=== PATIENT | female | born 1960 | race Caucasian/White ===

== ENCOUNTER 2016-08-15 14:11 | Emergency (ER) | payer OTHER ==
[2016-08-15 15:44] LABS: MEAN CORPUSCULAR HEMOGLOBIN 30.5 pg (27.0-33.0); MEAN CORPUSCULAR HGB CONC 32.6 g/dl (32.0-36.5); MEAN CORPUSCULAR VOLUME 93.7 fl (80.0-96.0); RED CELL DISTRIBUTION WIDTH 13.5 % (11.5-14.5); WHITE BLOOD COUNT 8.5 K/mm3 (4.0-10.0)
[2016-08-15 16:07] LABS: ANION GAP 11 MEQ/L (8-16); BLOOD UREA NITROGEN 14 MG/DL (7-18); CALCIUM LEVEL 8.7 MG/DL (8.5-10.1); CARBON DIOXIDE LEVEL 21 MEQ/L (21-32); CHLORIDE LEVEL 111 MEQ/L (98-107); CREATININE FOR GFR 0.74 MG/DL (0.55-1.02); GLOMERULAR FILTRATION RATE > 60.0 (>51); GLUCOSE, FASTING 145 MG/DL (70-105); POTASSIUM SERUM 4.6 MEQ/L (3.5-5.1); SODIUM LEVEL 143 MEQ/L (136-145)
--- NOTE | 2016-08-15 19:04 | EDDOCDS ---
Physician Documentation [facility] Name: Jon Connor Age: 56 yrs Sex: Female : 1960 Arrival Date: 08/15/2016 Time: 14:11 Bed TR8 Private MD: Lindsay Chapman Disposition: 08/15/16 17:55 Discharged to Home/Self Care. Impression: Illness, unspecified, Diarrhea, unspecified. - Condition is Stable. - Discharge Instructions: Food Choices to Help Relieve Diarrhea, Adult, Diarrhea. - Prescriptions for Zofran 4 mg Oral Tablet - take 1 tablet by ORAL route 4 times per day As needed; 10 tablet. - Medication Reconciliation, Local Pharmacy Hours form. - Follow up: Lindsay Chapman; When: 4 - 5 days; Reason: Recheck today's complaints, Continuance of care. - Problem is an ongoing problem. - Symptoms are unchanged. Historical: - Allergies: SULFA (SULFONAMIDES); - Home Meds: 1. citalopram 40 mg oral tab once daily 2. aspirin 325 mg Oral tab 1 tab once daily 3. albuterol sulfate 2.5 mg /3 mL (0.083 %) Nebulizer nebu 4. Breo Ellipta 200-25 mcg/dose inhalation dsdv 1 puff once daily 5. Carafate 1 gram Oral tab 4 times per day 6. CellCept 500 mg Oral tab 2 tabs 2 times per day 7. multivitamin Oral tab 1 tablet daily 8. enalapril maleate 2.5 mg Oral tab 1 tab once daily 9. fluticasone furoate 27.5 mcg/actuation nasal spsn 2 sprays once daily 10. gabapentin 300 mg Oral cap 1 cap 3 times per day 11. ipratropium-albuterol 0.5 mg-3 mg(2.5 mg base)/3 mL Inhl nebu 4 times per day 12. Januvia 100 mg oral tab 1 tab once daily 13. Lipitor 20 mg Oral tab 1 tab once daily 14. loratadine 10 mg Oral tab 1 tab once daily 15. metformin 500 mg Oral tab 2 tabs 2 times per day 16. Nexium 22.3mg Oral cpDR 2 caps once daily 17. pyridostigmine bromide 60 mg oral tab 4 times per day 18. ranitidine HCl 300 mg Oral cap bedtime 19. repaglinide 2 mg oral tab 2 tabs 2 times per day 20. ropinirole 1 mg oral tab 1 tab twice a day, 1/2 tablet at two pm 21. Topamax 50 mg Oral tab 1 tab daily 22. Topamax 100 mg Oral tab 1 tab at bedtime 23. triamcinolone acetonide 0.1 % Topical crea 2 times per day 24. ventolin inhaler every 4 hours 25. Vitamin D Oral 50,000 unit weekly 26. vitamin b12 100mcg daily 27. Hizentra subcutaneous subcutaneous once wkly - PMHx: Asthma; CAD; Depression; restless leg; Hypercholesterolemia; Diabetes - NIDDM: controlled; Hypertension; mysthenia gravis; TIA; - Social history: Smoking status: Patient states was never smoker of tobacco. No barriers to communication noted, The patient speaks fluent [place], Speaks appropriately for age. - Family history: Not pertinent. - : The pt / caregiver states he / she is not on anticoagulants. Home medication list is obtained from the patient. - Exposure Risk Screening:: None identified. Vital Signs: 08/15 14:14 BP 153 / 71 RA Sitting (auto/lg); Pulse 82; Resp 16; Temp 99.3(O); Pulse Ox 98% ; rs6 Weight 104.78 kg / 231 lbs (R); Height 5 ft. 3 in. (160.02 cm) (R); Pain 7/10; 14:30 Pulse 104 MON; Pulse Ox 97% ; cjh 14:30 BP 173 / 77 (auto/); cjh 15:37 Pulse 74 MON; Pulse Ox 99% ; cjh 15:37 BP 121 / 67 (auto/); cjh 15:52 Pulse 72 MON; Pulse Ox 97% ; cjh 15:52 BP 120 / 57 (auto/); cjh 16:07 Pulse 70 MON; Pulse Ox 97% ; cjh 16:07 BP 120 / 57 (auto/); cjh 16:22 Pulse 80 MON; Pulse Ox 98% ; cjh 16:22 BP 127 / 60 (auto/); cjh 18:20 BP 101 / 55; Pulse 75; Resp 16; Temp 97.9; Pulse Ox 97% ; Pain 7/10; cjh 14:14 Body Mass Index 40.92 (104.78 kg, 160.02 cm) rs6 MDM: 14:44 Obtain sample by nasopharyngeal swab ordered. ke 14:45 IV Saline Lock ordered. ke 14:45 NS 0.9% 1000 ml IV at 100 mL/hr continuous ordered. ke 14:45 CBC Ordered. EDMS 14:45 BMP Ordered. EDMS 14:45 -Influenza A&B Rapid Antigen - Nose Ordered. EDMS 14:45 UA Ordered. EDMS 14:45 Urine Culture Ordered. EDMS 14:45 CT Head Without Contrast Ordered. EDMS 16:13 CBC Reviewed. ke 16:13 BMP Reviewed. ke 16:13 -Influenza A&B Rapid Antigen - Nose Reviewed. ke 16:22 Financial registration complete. ks16 16:27 [facility] Payment Agreement was scanned into [employer] and attached to record. ks16 17:35 UA Reviewed. ke Administered Medications: 15:44 Drug: NS 0.9% 1000 ml [sodium chloride 0.9 % intravenous solution] Route: IV; Rate: 100 srm mL/hr; Site: right forearm; Signatures: Dispatcher [employer] EDSherie Drummond RN RN srm Elsner, Karl, PUMPING SUPERVISOR PUMPING SUPERVISOR Glenis Proctor RN RN [facility] Macie Julien, Reg Reg ks16 The chart was reviewed and I authenticate all verbal orders and agree with the evaluation and treatment provided.Attachments: 16:27 [facility] Payment Agreement ks16 MTDD
--- NOTE | 2016-08-15 19:04 | EDDOCDS ---
Nurse's Notes [facility] Name: Jon Connor Age: 56 yrs Sex: Female : 1960 Arrival Date: 08/15/2016 Time: 14:11 Bed TR8 Private MD: Lindsay Chapman Diagnosis: Illness, unspecified;Diarrhea, unspecified Presentation: 08/15 14:24 Presenting complaint: Patient states: while standing from bent over position, hit head srm on bar cabinet. no LOC. today weakness, very tired, arms and legs numb and tingling. hx of tia in past. not on blood thinners. Adult Sepsis Screening: The patient does not have new or worsening altered mentation. Patient's respiratory rate is less than 22. Systolic blood pressure is greater than 100. Patient has a qSOFA score of 0- Negative Sepsis Screen. Suicide/Homicide risk assessment- the patient denies having any suicidal and/or homicidal ideations and does not present with any other emotional, behavioral or mental health complaints. Status: Patient is not a program services assistant or dependent. Transition of care: patient was not received from another setting of care. 14:24 Acuity: BHAVNA Level 2 srm 14:24 Method Of Arrival: Wheelchair srm 14:46 Presenting complaint: tired and weak since 0730 and numbness to extremities since srm approx 1100. Triage Assessment: 14:45 General: Appears in no apparent distress, Behavior is appropriate for age, cooperative. srm Pain: Pain currently is 7 out of 10 on a pain scale. HIV screening NA for this visit Offered previously. Historical: - Allergies: SULFA (SULFONAMIDES); - Home Meds: 1. citalopram 40 mg oral tab once daily 2. aspirin 325 mg Oral tab 1 tab once daily 3. albuterol sulfate 2.5 mg /3 mL (0.083 %) Nebulizer nebu 4. Breo Ellipta 200-25 mcg/dose inhalation dsdv 1 puff once daily 5. Carafate 1 gram Oral tab 4 times per day 6. CellCept 500 mg Oral tab 2 tabs 2 times per day 7. multivitamin Oral tab 1 tablet daily 8. enalapril maleate 2.5 mg Oral tab 1 tab once daily 9. fluticasone furoate 27.5 mcg/actuation nasal spsn 2 sprays once daily 10. gabapentin 300 mg Oral cap 1 cap 3 times per day 11. ipratropium-albuterol 0.5 mg-3 mg(2.5 mg base)/3 mL Inhl nebu 4 times per day 12. Januvia 100 mg oral tab 1 tab once daily 13. Lipitor 20 mg Oral tab 1 tab once daily 14. loratadine 10 mg Oral tab 1 tab once daily 15. metformin 500 mg Oral tab 2 tabs 2 times per day 16. Nexium 22.3mg Oral cpDR 2 caps once daily 17. pyridostigmine bromide 60 mg oral tab 4 times per day 18. ranitidine HCl 300 mg Oral cap bedtime 19. repaglinide 2 mg oral tab 2 tabs 2 times per day 20. ropinirole 1 mg oral tab 1 tab twice a day, 1/2 tablet at two pm 21. Topamax 50 mg Oral tab 1 tab daily 22. Topamax 100 mg Oral tab 1 tab at bedtime 23. triamcinolone acetonide 0.1 % Topical crea 2 times per day 24. ventolin inhaler every 4 hours 25. Vitamin D Oral 50,000 unit weekly 26. vitamin b12 100mcg daily 27. Hizentra subcutaneous subcutaneous once wkly - PMHx: Asthma; CAD; Depression; restless leg; Hypercholesterolemia; Diabetes - NIDDM: controlled; Hypertension; mysthenia gravis; TIA; - Social history: Smoking status: Patient states was never smoker of tobacco. No barriers to communication noted, The patient speaks fluent Yi, Speaks appropriately for age. - Family history: Not pertinent. - : The pt / caregiver states he / she is not on anticoagulants. Home medication list is obtained from the patient. - Exposure Risk Screening:: None identified. Screenin:57 Screening information is obtained from the patient. Fall risk: No risks identified. [facility] Assistance ADL's: requires no assistance with activities of daily living. Abuse/DV Screen: The patient / caregiver reports he/she is: not in a situation that causes fear, pain or injury. Nutritional screening: No deficits noted. Advance Directives: Currently, there is a health care proxy, Yunier Connor, . There is no active DNR order. There is no living will. There is no Power of Supervisor Slate Splitting. 18:20 home support is adequate. [facility] Assessment: 14:55 General: Appears in no apparent distress, comfortable, Behavior is appropriate for age, cjh cooperative, returned from CT, tolerated well, at bedside. Pain: Denies pain. Neurological: Level of Consciousness is awake, alert, Oriented to person, place, time, Pupils are PERRLA. Respiratory: Airway is patent Respiratory effort is even, unlabored, Respiratory pattern is regular, symmetrical. GI: No deficits noted. : No deficits noted. Derm: Skin is pink, warm & dry. 16:30 General: awaiting results, no new problems or complaints, no changes or improvements [facility] noted. 18:20 General: Appears in no apparent distress, comfortable, Behavior is appropriate for age, cjh cooperative, reviewed discharge instructions, patient states she doesn't feel any better but declines offer to obtain the provider for further questions and declines offer of further assist via wheelchair to exit. Reviewed plans for follow up care, reinforced need to return for worsening symptoms, alarming changes or other reasons. Vital Signs: 14:14 BP 153 / 71 RA Sitting (auto/lg); Pulse 82; Resp 16; Temp 99.3(O); Pulse Ox 98% ; rs6 Weight 104.78 kg (R); Height 5 ft. 3 in. (160.02 cm) (R); Pain 7/10; 14:30 Pulse 104 MON; Pulse Ox 97% ; cjh 14:30 BP 173 / 77 (auto/); cjh 15:37 Pulse 74 MON; Pulse Ox 99% ; cjh 15:37 BP 121 / 67 (auto/); cjh 15:52 Pulse 72 MON; Pulse Ox 97% ; cjh 15:52 BP 120 / 57 (auto/); cjh 16:07 Pulse 70 MON; Pulse Ox 97% ; cjh 16:07 BP 120 / 57 (auto/); cjh 16:22 Pulse 80 MON; Pulse Ox 98% ; cjh 16:22 BP 127 / 60 (auto/); cjh 18:20 BP 101 / 55; Pulse 75; Resp 16; Temp 97.9; Pulse Ox 97% ; Pain 7/10; cjh 14:14 Body Mass Index 40.92 (104.78 kg, 160.02 cm) rs6 Vitals: 14:14 Log In Time: August 15, 2016 at 14:14. RN notified that patient meets Red Flag rs6 criteria. ED Course: 14:12 Patient visited by Farida Guerrero PCA. rs6 14:12 Patient moved to Waiting rs6 14:13 Lindsay Chapamn is Private Physician. rs6 14:24 Patient moved to I8 / 16 srm 14:26 Triage Initiated srm 14:38 Deondre Scott FNP is [facility]. ke 14:38 Patient visited by Deondre Scott FNP. ke 14:38 Patient visited by Deondre Scott FNP. ke 14:38 Patient moved to 4 [facility] 14:46 Patient visited by Sherie Reynoso, ANNMARIE. srm 15:16 Patient visited by Deondre Scott FNP. ke 15:31 Patient moved to 14 ar3 15:41 Patient visited by Sherie Reynoso, ANNMARIE. srm 15:41 -Influenza A&B Rapid Antigen - Nose Sent. srm 15:41 Inserted saline lock: 20 gauge in right forearm and blood collected. srm 16:12 Patient visited by Deondre Scott FNP. ke 16:27 [facility] Payment Agreement was scanned into [employer] and attached to record. ks16 16:39 Patient visited by Deondre Scott FNP. ke 16:57 Urine Culture Sent. cjh 16:57 UA Sent. cjh 17:01 Patient visited by Deondre Scott FNP. ke 17:32 Patient visited by Deondre Scott FNP. ke 17:54 Lindsay Chapman is Referral Physician. ke 18:18 Patient moved to TR8 cjh 18:20 The patient / caregiver is instructed regarding the plan of care and ED course. cj 18:20 Discontinued lock intact, bleeding controlled, pressure dressing applied, No cj redness/swelling at site. No procedures done that require assistance. Administered Medications: 15:44 Drug: NS 0.9% 1000 ml [sodium chloride 0.9 % intravenous solution] Route: IV; Rate: 100 srm mL/hr; Site: right forearm; Order Results: Lab Order: CBC; SPEC'M 08/15/16 15:28 Test: WHITE BLOOD COUNT; Value: 8.5; Range: 4.0-10.0; Units: K/mm3; Status: F Test: RED BLOOD COUNT; Value: 3.85; Range: 4.00-5.40; Abnormal: Below low normal; Units: M/mm3; Status: F Test: HEMOGLOBIN; Value: 11.8; Range: 12.0-16.0; Abnormal: Below low normal; Units: g/dl; Status: F Test: HEMATOCRIT; Value: 36.1; Range: 36.0-47.0; Units: %; Status: F Test: MEAN CORPUSCULAR VOLUME; Value: 93.7; Range: 80.0-96.0; Units: fl; Status: F Test: MEAN CORPUSCULAR HEMOGLOBIN; Value: 30.5; Range: 27.0-33.0; Units: pg; Status: F Test: MEAN CORPUSCULAR HGB CONC; Value: 32.6; Range: 32.0-36.5; Units: g/dl; Status: F Test: RED CELL DISTRIBUTION WIDTH; Value: 13.5; Range: 11.5-14.5; Units: %; Status: F Test: PLATELET COUNT, AUTOMATED; Value: 208; Range: 150-450; Units: k/mm3; Status: F Lab Order: [facility]; SPEC'M 08/15/16 15:29 Test: GLUCOSE, FASTING; Value: 145; Range: 70-105; Abnormal: Above high normal; Units: MG/DL; Status: F Test: BLOOD UREA NITROGEN; Value: 14; Range: 7-18; Units: MG/DL; Status: F Test: CREATININE FOR GFR; Value: 0.74; Range: 0.55-1.02; Units: MG/DL; Status: F Test: GLOMERULAR FILTRATION RATE; Value: > 60.0; Range: >51; Status: F Test: SODIUM LEVEL; Value: 143; Range: 136-145; Units: MEQ/L; Status: F Test: POTASSIUM SERUM; Value: 4.6; Range: 3.5-5.1; Units: MEQ/L; Status: F Test: CHLORIDE LEVEL; Value: 111; Range: 98-107; Abnormal: Above high normal; Units: MEQ/L; Status: F Test: CARBON DIOXIDE LEVEL; Value: 21; Range: 21-32; Units: MEQ/L; Status: F Test: ANION GAP; Value: 11; Range: 8-16; Units: MEQ/L; Status: F Test: CALCIUM LEVEL; Value: 8.7; Range: 8.5-10.1; Units: MG/DL; Status: F Test Note: ; Units are mL/min/1.73 m2 Chronic Kidney Disease Staging per NKF: Stage I & II GFR >=60 Normal to Mildly Decreased Stage III GFR 30-59 Moderately Decreased Stage IV GFR 15-29 Severely Decreased Stage V GFR <15 Very Little GFR Left ESRD GFR <15 on OCCUPANCY SPECIALIST Lab Order: -Influenza A&B Rapid Antigen - Nose; SPEC'M 08/15/16 15:28 Test: INFLUENZA A RAPID SCR by ICA; Value: INFLUENZA A RESULTS NEGATIVE; Status: F Test: INFLUENZA A RAPID SCR by ICA; Value: Comments:; Status: F Test: INFLUENZA B RAPID SCR by ICA; Value: INFLUENZA B RESULTS NEGATIVE; Status: F Test Note: ; The Influenza test is a direct rapid immunoassay for the qualitative detection of Influenza viral antigen. Cell culture (Viral Culture) testing should be considered to confirm NEGATIVE results and to assist in detecting other viruses that can provide similar clinical symptoms. Please contact the lab within 24 hours ([phone]) if confirmatory testing is desired. Lab Order: UA; SPEC'M 08/15/16 16:42 Test: APPEARANCE, URINE; Value: CLEAR; Range: CLEAR; Status: F Test: COLOR, URINE; Value: YELLOW; Range: YELLOW; Status: F Test: PH,URINE; Value: 7.0; Range: 5.0-9.0; Units: UNITS; Status: F Test: SPECIFIC GRAVITY URINE AUTO; Value: 1.011; Range: 1.002-1.035; Status: F Test: PROTEIN, URINE AUTO; Value: NEGATIVE; Range: NEGATIVE; Units: mg/dL; Status: F Test: GLUCOSE, URINE (UA) AUTO; Value: NEGATIVE; Range: NEGATIVE; Units: mg/dL; Status: F Test: KETONE, URINE AUTO; Value: NEGATIVE; Range: NEGATIVE; Units: mg/dL; Status: F Test: UROBILINOGEN, URINE AUTO; Value: 0.2; Range: 0.0-2.0; Units: mg/dL; Status: F Test: BILIRUBIN, URINE AUTO; Value: NEGATIVE; Range: NEGATIVE; Status: F Test: NITRITE, URINE AUTO; Value: NEGATIVE; Range: NEGATIVE; Status: F Test: LEUKOCYTE ESTERASE, URINE AUTO; Value: NEGATIVE; Range: NEGATIVE; Status: F Test: BLOOD, URINE BLOOD; Value: NEGATIVE; Range: NEGATIVE; Status: F Test: WBC, URINE AUTO; Value: 1; Range: 0-3; Units: /HPF; Status: F Test: RBC, URINE AUTO; Value: 1; Range: 0-3; Units: /HPF; Status: F Test: BACTERIA, URINE AUTO; Value: NEGATIVE; Range: NEGATIVE; Status: F Test: SQUAMOUS EPITHELIAL CELL UR AU; Value: 0; Range: 0-6; Units: /HPF; Status: F Test: HYALINE CAST, URINE AUTO; Value: 0; Range: 0-1; Units: /LPF; Status: F Test: AMORPHOUS SEDIMENT; Value: SMALL; Range: NEGATIVE; Abnormal: Above high normal; Status: F Outcome: 17:55 Discharge ordered by Provider. ke 18:20 Discharge Assessment: Patient awake, alert and oriented x 3. No cognitive and/or [facility] functional deficits noted. Patient verbalized understanding of disposition instructions. patient administered narcotics - no. The following High Risk Discharge criteria are identified: None. Discharged to home ambulatory, with significant other. Condition: good Condition: stable Condition: improved. Discharge instructions given to patient, Instructed on discharge instructions, follow up and referral plans. medication usage, Demonstrated understanding of instructions, medications, Pt was receptive of discharge instructions/ teaching. Prescriptions given X 1. CT Study completed. Property :Personal belongings accompany Pt. 19:03 Patient left the ED. [facility] Signatures: Delmi Siegel RN Sherie Lawrence RN Deondre Strauss, TUBE BUILDER AIRPLANE TUBE BUILDER AIRPLANE Rita Mcleod, NEON TECHNICIAN NEON TECHNICIAN ar3 Glenis Cabrera RN RN [facility] Farida Guerrero, NEON TECHNICIAN NEON TECHNICIAN rs6 Macie Julien, Reg Reg ks16 MTDD
--- NOTE | 2016-08-16 05:35 | REP ---
Head CT without contrast: History: Trauma. Findings: Preliminary digital lateral ring attacher view is unremarkable. Bone window settings demonstrate an intact bony calvarium. No skull fracture is seen. There is mucosal thickening affecting the maxillary sinuses and the ethmoid and maxillary sinuses bilaterally. No intraorbital abnormality is seen. On soft tissue window settings, the lateral, third, and fourth ventricles are normal in size and position. Soria-white differentiation pattern is normal above and below the tentorium. There is no evidence of intracranial hemorrhage. No extra-axial fluid collection is seen. No mass or midline shift is seen. Impression: Paranasal sinus mucosal thickening in the ethmoid and maxillary sinuses bilaterally. Otherwise negative head CT. No skull fracture or intracranial injury seen. Signed by Angel Cunningham MD 08/16/2016 02:22 P
--- NOTE | 2016-08-17 20:04 | EDDOCDS ---
Physician Documentation [facility] Name: Jon Connor Age: 56 yrs Sex: Female : 1960 Arrival Date: 08/15/2016 Time: 14:11 Bed TR8 Private MD: Lindsay Chapman Disposition: 08/15/16 17:55 Discharged to Home/Self Care. Impression: Illness, unspecified, Diarrhea, unspecified. - Condition is Stable. - Discharge Instructions: Food Choices to Help Relieve Diarrhea, Adult, Diarrhea. - Prescriptions for Zofran 4 mg Oral Tablet - take 1 tablet by ORAL route 4 times per day As needed; 10 tablet. - Medication Reconciliation, Local Pharmacy Hours form. - Follow up: Lindsay Chapman; When: 4 - 5 days; Reason: Recheck today's complaints, Continuance of care. - Problem is an ongoing problem. - Symptoms are unchanged. Historical: - Allergies: SULFA (SULFONAMIDES); - Home Meds: 1. citalopram 40 mg oral tab once daily 2. aspirin 325 mg Oral tab 1 tab once daily 3. albuterol sulfate 2.5 mg /3 mL (0.083 %) Nebulizer nebu 4. Breo Ellipta 200-25 mcg/dose inhalation dsdv 1 puff once daily 5. Carafate 1 gram Oral tab 4 times per day 6. CellCept 500 mg Oral tab 2 tabs 2 times per day 7. multivitamin Oral tab 1 tablet daily 8. enalapril maleate 2.5 mg Oral tab 1 tab once daily 9. fluticasone furoate 27.5 mcg/actuation nasal spsn 2 sprays once daily 10. gabapentin 300 mg Oral cap 1 cap 3 times per day 11. ipratropium-albuterol 0.5 mg-3 mg(2.5 mg base)/3 mL Inhl nebu 4 times per day 12. Januvia 100 mg oral tab 1 tab once daily 13. Lipitor 20 mg Oral tab 1 tab once daily 14. loratadine 10 mg Oral tab 1 tab once daily 15. metformin 500 mg Oral tab 2 tabs 2 times per day 16. Nexium 22.3mg Oral cpDR 2 caps once daily 17. pyridostigmine bromide 60 mg oral tab 4 times per day 18. ranitidine HCl 300 mg Oral cap bedtime 19. repaglinide 2 mg oral tab 2 tabs 2 times per day 20. ropinirole 1 mg oral tab 1 tab twice a day, 1/2 tablet at two pm 21. Topamax 50 mg Oral tab 1 tab daily 22. Topamax 100 mg Oral tab 1 tab at bedtime 23. triamcinolone acetonide 0.1 % Topical crea 2 times per day 24. ventolin inhaler every 4 hours 25. Vitamin D Oral 50,000 unit weekly 26. vitamin b12 100mcg daily 27. Hizentra subcutaneous subcutaneous once wkly - PMHx: Asthma; CAD; Depression; restless leg; Hypercholesterolemia; Diabetes - NIDDM: controlled; Hypertension; mysthenia gravis; TIA; - Social history: Smoking status: Patient states was never smoker of tobacco. No barriers to communication noted, The patient speaks fluent Swedish, Speaks appropriately for age. - Family history: Not pertinent. - : The pt / caregiver states he / she is not on anticoagulants. Home medication list is obtained from the patient. - Exposure Risk Screening:: None identified. Vital Signs: 08/15 14:14 BP 153 / 71 RA Sitting (auto/lg); Pulse 82; Resp 16; Temp 99.3(O); Pulse Ox 98% ; rs6 Weight 104.78 kg / 231 lbs (R); Height 5 ft. 3 in. (160.02 cm) (R); Pain 7/10; 14:30 Pulse 104 MON; Pulse Ox 97% ; cjh 14:30 BP 173 / 77 (auto/); cjh 15:37 Pulse 74 MON; Pulse Ox 99% ; cjh 15:37 BP 121 / 67 (auto/); cjh 15:52 Pulse 72 MON; Pulse Ox 97% ; cjh 15:52 BP 120 / 57 (auto/); cjh 16:07 Pulse 70 MON; Pulse Ox 97% ; cjh 16:07 BP 120 / 57 (auto/); cjh 16:22 Pulse 80 MON; Pulse Ox 98% ; cjh 16:22 BP 127 / 60 (auto/); cjh 18:20 BP 101 / 55; Pulse 75; Resp 16; Temp 97.9; Pulse Ox 97% ; Pain 7/10; cjh 14:14 Body Mass Index 40.92 (104.78 kg, 160.02 cm) rs6 MDM: 14:44 Obtain sample by nasopharyngeal swab ordered. ke 14:45 IV Saline Lock ordered. ke 14:45 NS 0.9% 1000 ml IV at 100 mL/hr continuous ordered. ke 14:45 CBC Ordered. EDMS 14:45 BMP Ordered. EDMS 14:45 -Influenza A&B Rapid Antigen - Nose Ordered. EDMS 14:45 UA Ordered. EDMS 14:45 Urine Culture Ordered. EDMS 14:45 CT Head Without Contrast Ordered. EDMS 16:13 CBC Reviewed. ke 16:13 BMP Reviewed. ke 16:13 -Influenza A&B Rapid Antigen - Nose Reviewed. ke 16:22 Financial registration complete. ks16 16:27 [facility] Payment Agreement was scanned into [employer] and attached to record. ks 17:35 UA Reviewed. 08/16 12:16 T-Sheet-- Draft Copy was scanned into [employer] and attached to record. gb Administered Medications: 08/15 15:44 Drug: NS 0.9% 1000 ml [sodium chloride 0.9 % intravenous solution] Route: IV; Rate: 100 srm mL/hr; Site: right forearm; Signatures: Dispatcher [employer] Sherie Chau RN RN [facility] Mariluz Guillen, Reg Reg Deondre Cruz, ROOF TRUSS DETAILER ROOF TRUSS DETAILER Glenis Proctor RN RN [facility] Macie Julien, Reg Reg ks16 The chart was reviewed and I authenticate all verbal orders and agree with the evaluation and treatment provided.Attachments: 16:27 [facility] Payment Agreement 08/16 12:16 T-Sheet-- Draft Copy gb Chart Complete MTDD
--- NOTE | 2016-08-17 20:04 | EDDOCDS ---
Physician Documentation [facility] Name: Jon Connor Age: 56 yrs Sex: Female : 1960 Arrival Date: 08/15/2016 Time: 14:11 Bed TR8 Private MD: Lindsay Chapman Disposition: 08/15/16 17:55 Discharged to Home/Self Care. Impression: Illness, unspecified, Diarrhea, unspecified. - Condition is Stable. - Discharge Instructions: Food Choices to Help Relieve Diarrhea, Adult, Diarrhea. - Prescriptions for Zofran 4 mg Oral Tablet - take 1 tablet by ORAL route 4 times per day As needed; 10 tablet. - Medication Reconciliation, Local Pharmacy Hours form. - Follow up: Lindsay Chapman; When: 4 - 5 days; Reason: Recheck today's complaints, Continuance of care. - Problem is an ongoing problem. - Symptoms are unchanged. Historical: - Allergies: SULFA (SULFONAMIDES); - Home Meds: 1. citalopram 40 mg oral tab once daily 2. aspirin 325 mg Oral tab 1 tab once daily 3. albuterol sulfate 2.5 mg /3 mL (0.083 %) Nebulizer nebu 4. Breo Ellipta 200-25 mcg/dose inhalation dsdv 1 puff once daily 5. Carafate 1 gram Oral tab 4 times per day 6. CellCept 500 mg Oral tab 2 tabs 2 times per day 7. multivitamin Oral tab 1 tablet daily 8. enalapril maleate 2.5 mg Oral tab 1 tab once daily 9. fluticasone furoate 27.5 mcg/actuation nasal spsn 2 sprays once daily 10. gabapentin 300 mg Oral cap 1 cap 3 times per day 11. ipratropium-albuterol 0.5 mg-3 mg(2.5 mg base)/3 mL Inhl nebu 4 times per day 12. Januvia 100 mg oral tab 1 tab once daily 13. Lipitor 20 mg Oral tab 1 tab once daily 14. loratadine 10 mg Oral tab 1 tab once daily 15. metformin 500 mg Oral tab 2 tabs 2 times per day 16. Nexium 22.3mg Oral cpDR 2 caps once daily 17. pyridostigmine bromide 60 mg oral tab 4 times per day 18. ranitidine HCl 300 mg Oral cap bedtime 19. repaglinide 2 mg oral tab 2 tabs 2 times per day 20. ropinirole 1 mg oral tab 1 tab twice a day, 1/2 tablet at two pm 21. Topamax 50 mg Oral tab 1 tab daily 22. Topamax 100 mg Oral tab 1 tab at bedtime 23. triamcinolone acetonide 0.1 % Topical crea 2 times per day 24. ventolin inhaler every 4 hours 25. Vitamin D Oral 50,000 unit weekly 26. vitamin b12 100mcg daily 27. Hizentra subcutaneous subcutaneous once wkly - PMHx: Asthma; CAD; Depression; restless leg; Hypercholesterolemia; Diabetes - NIDDM: controlled; Hypertension; mysthenia gravis; TIA; - Social history: Smoking status: Patient states was never smoker of tobacco. No barriers to communication noted, The patient speaks fluent Portuguese, Speaks appropriately for age. - Family history: Not pertinent. - : The pt / caregiver states he / she is not on anticoagulants. Home medication list is obtained from the patient. - Exposure Risk Screening:: None identified. Vital Signs: 08/15 14:14 BP 153 / 71 RA Sitting (auto/lg); Pulse 82; Resp 16; Temp 99.3(O); Pulse Ox 98% ; rs6 Weight 104.78 kg / 231 lbs (R); Height 5 ft. 3 in. (160.02 cm) (R); Pain 7/10; 14:30 Pulse 104 MON; Pulse Ox 97% ; cjh 14:30 BP 173 / 77 (auto/); cjh 15:37 Pulse 74 MON; Pulse Ox 99% ; cjh 15:37 BP 121 / 67 (auto/); cjh 15:52 Pulse 72 MON; Pulse Ox 97% ; cjh 15:52 BP 120 / 57 (auto/); cjh 16:07 Pulse 70 MON; Pulse Ox 97% ; cjh 16:07 BP 120 / 57 (auto/); cjh 16:22 Pulse 80 MON; Pulse Ox 98% ; cjh 16:22 BP 127 / 60 (auto/); cjh 18:20 BP 101 / 55; Pulse 75; Resp 16; Temp 97.9; Pulse Ox 97% ; Pain 7/10; cjh 14:14 Body Mass Index 40.92 (104.78 kg, 160.02 cm) rs6 MDM: 14:44 Obtain sample by nasopharyngeal swab ordered. ke 14:45 IV Saline Lock ordered. ke 14:45 NS 0.9% 1000 ml IV at 100 mL/hr continuous ordered. ke 14:45 CBC Ordered. EDMS 14:45 BMP Ordered. EDMS 14:45 -Influenza A&B Rapid Antigen - Nose Ordered. EDMS 14:45 UA Ordered. EDMS 14:45 Urine Culture Ordered. EDMS 14:45 CT Head Without Contrast Ordered. EDMS 16:13 CBC Reviewed. ke 16:13 BMP Reviewed. ke 16:13 -Influenza A&B Rapid Antigen - Nose Reviewed. ke 16:22 Financial registration complete. [id number] 16:27 [facility] Payment Agreement was scanned into [employer] and attached to record. ks 17:35 UA Reviewed. 08/16 12:16 T-Sheet-- Draft Copy was scanned into [employer] and attached to record. gb Administered Medications: 08/15 15:44 Drug: NS 0.9% 1000 ml [sodium chloride 0.9 % intravenous solution] Route: IV; Rate: 100 srm mL/hr; Site: right forearm; Signatures: Dispatcher [employer] Sherie Chua RN RN [facility] Mariluz Guillen, Reg Reg Deondre Cruz, ACCREDITED LEGAL SECRETARY ACCREDITED LEGAL SECRETARY Glenis Proctor RN RN [facility] Macie Julien, Reg Reg ks16 The chart was reviewed and I authenticate all verbal orders and agree with the evaluation and treatment provided.Attachments: 16:27 [facility] Payment Agreement 08/16 12:16 T-Sheet-- Draft Copy gb Chart Complete MTDD
--- NOTE | 2016-08-17 20:04 | EDDOCDS ---
Nurse's Notes [facility] Name: Jon Connor Age: 56 yrs Sex: Female : 1960 Arrival Date: 08/15/2016 Time: 14:11 Bed TR8 Private MD: Lindsay Chapman Diagnosis: Illness, unspecified;Diarrhea, unspecified Presentation: 08/15 14:24 Presenting complaint: Patient states: while standing from bent over position, hit head srm on bar cabinet. no LOC. today weakness, very tired, arms and legs numb and tingling. hx of tia in past. not on blood thinners. Adult Sepsis Screening: The patient does not have new or worsening altered mentation. Patient's respiratory rate is less than 22. Systolic blood pressure is greater than 100. Patient has a qSOFA score of 0- Negative Sepsis Screen. Suicide/Homicide risk assessment- the patient denies having any suicidal and/or homicidal ideations and does not present with any other emotional, behavioral or mental health complaints. Status: Patient is not a administrative services specialist or dependent. Transition of care: patient was not received from another setting of care. 14:24 Acuity: BHAVNA Level 2 srm 14:24 Method Of Arrival: Wheelchair srm 14:46 Presenting complaint: tired and weak since 0730 and numbness to extremities since srm approx 1100. Triage Assessment: 14:45 General: Appears in no apparent distress, Behavior is appropriate for age, cooperative. srm Pain: Pain currently is 7 out of 10 on a pain scale. HIV screening NA for this visit Offered previously. Historical: - Allergies: SULFA (SULFONAMIDES); - Home Meds: 1. citalopram 40 mg oral tab once daily 2. aspirin 325 mg Oral tab 1 tab once daily 3. albuterol sulfate 2.5 mg /3 mL (0.083 %) Nebulizer nebu 4. Breo Ellipta 200-25 mcg/dose inhalation dsdv 1 puff once daily 5. Carafate 1 gram Oral tab 4 times per day 6. CellCept 500 mg Oral tab 2 tabs 2 times per day 7. multivitamin Oral tab 1 tablet daily 8. enalapril maleate 2.5 mg Oral tab 1 tab once daily 9. fluticasone furoate 27.5 mcg/actuation nasal spsn 2 sprays once daily 10. gabapentin 300 mg Oral cap 1 cap 3 times per day 11. ipratropium-albuterol 0.5 mg-3 mg(2.5 mg base)/3 mL Inhl nebu 4 times per day 12. Januvia 100 mg oral tab 1 tab once daily 13. Lipitor 20 mg Oral tab 1 tab once daily 14. loratadine 10 mg Oral tab 1 tab once daily 15. metformin 500 mg Oral tab 2 tabs 2 times per day 16. Nexium 22.3mg Oral cpDR 2 caps once daily 17. pyridostigmine bromide 60 mg oral tab 4 times per day 18. ranitidine HCl 300 mg Oral cap bedtime 19. repaglinide 2 mg oral tab 2 tabs 2 times per day 20. ropinirole 1 mg oral tab 1 tab twice a day, 1/2 tablet at two pm 21. Topamax 50 mg Oral tab 1 tab daily 22. Topamax 100 mg Oral tab 1 tab at bedtime 23. triamcinolone acetonide 0.1 % Topical crea 2 times per day 24. ventolin inhaler every 4 hours 25. Vitamin D Oral 50,000 unit weekly 26. vitamin b12 100mcg daily 27. Hizentra subcutaneous subcutaneous once wkly - PMHx: Asthma; CAD; Depression; restless leg; Hypercholesterolemia; Diabetes - NIDDM: controlled; Hypertension; mysthenia gravis; TIA; - Social history: Smoking status: Patient states was never smoker of tobacco. No barriers to communication noted, The patient speaks fluent Macedonian, Speaks appropriately for age. - Family history: Not pertinent. - : The pt / caregiver states he / she is not on anticoagulants. Home medication list is obtained from the patient. - Exposure Risk Screening:: None identified. Screenin:57 Screening information is obtained from the patient. Fall risk: No risks identified. [facility] Assistance ADL's: requires no assistance with activities of daily living. Abuse/DV Screen: The patient / caregiver reports he/she is: not in a situation that causes fear, pain or injury. Nutritional screening: No deficits noted. Advance Directives: Currently, there is a health care proxy, Yunier Connor, . There is no active DNR order. There is no living will. There is no Power of Pharmacy Intern. 18:20 home support is adequate. [facility] Assessment: 14:55 General: Appears in no apparent distress, comfortable, Behavior is appropriate for age, cjh cooperative, returned from CT, tolerated well, at bedside. Pain: Denies pain. Neurological: Level of Consciousness is awake, alert, Oriented to person, place, time, Pupils are PERRLA. Respiratory: Airway is patent Respiratory effort is even, unlabored, Respiratory pattern is regular, symmetrical. GI: No deficits noted. : No deficits noted. Derm: Skin is pink, warm & dry. 16:30 General: awaiting results, no new problems or complaints, no changes or improvements [facility] noted. 18:20 General: Appears in no apparent distress, comfortable, Behavior is appropriate for age, cjh cooperative, reviewed discharge instructions, patient states she doesn't feel any better but declines offer to obtain the provider for further questions and declines offer of further assist via wheelchair to exit. Reviewed plans for follow up care, reinforced need to return for worsening symptoms, alarming changes or other reasons. Vital Signs: 14:14 BP 153 / 71 RA Sitting (auto/lg); Pulse 82; Resp 16; Temp 99.3(O); Pulse Ox 98% ; rs6 Weight 104.78 kg (R); Height 5 ft. 3 in. (160.02 cm) (R); Pain 7/10; 14:30 Pulse 104 MON; Pulse Ox 97% ; cjh 14:30 BP 173 / 77 (auto/); cjh 15:37 Pulse 74 MON; Pulse Ox 99% ; cjh 15:37 BP 121 / 67 (auto/); cjh 15:52 Pulse 72 MON; Pulse Ox 97% ; cjh 15:52 BP 120 / 57 (auto/); cjh 16:07 Pulse 70 MON; Pulse Ox 97% ; cjh 16:07 BP 120 / 57 (auto/); cjh 16:22 Pulse 80 MON; Pulse Ox 98% ; cjh 16:22 BP 127 / 60 (auto/); cjh 18:20 BP 101 / 55; Pulse 75; Resp 16; Temp 97.9; Pulse Ox 97% ; Pain 7/10; cjh 14:14 Body Mass Index 40.92 (104.78 kg, 160.02 cm) rs6 Vitals: 14:14 Log In Time: August 15, 2016 at 14:14. RN notified that patient meets Red Flag rs6 criteria. ED Course: 14:12 Patient visited by Farida Guerrero PCA. rs6 14:12 Patient moved to Waiting rs6 14:13 Lindsay Chapman is Private Physician. rs6 14:24 Patient moved to I8 / 16 srm 14:26 Triage Initiated srm 14:38 Deondre Scott FNP is [facility]. ke 14:38 Patient visited by Deondre Scott FNP. ke 14:38 Patient visited by Deondre Scott FNP. ke 14:38 Patient moved to [facility] 14:46 Patient visited by Sherie Reynoso, ANNMARIE. srm 15:16 Patient visited by Deondre Scott FNP. ke 15:31 Patient moved to 14 ar3 15:41 Patient visited by Sherie Reynoso, ANNMARIE. srm 15:41 -Influenza A&B Rapid Antigen - Nose Sent. srm 15:41 Inserted saline lock: 20 gauge in right forearm and blood collected. srm 16:12 Patient visited by Deondre Scott FNP. ke 16:27 [facility] Payment Agreement was scanned into [employer] and attached to record. ks16 16:39 Patient visited by Deondre Scott FNP. ke 16:57 Urine Culture Sent. cjh 16:57 UA Sent. cjh 17:01 Patient visited by Deondre Scott FNP. ke 17:32 Patient visited by Deondre Scott FNP. ke 17:54 Lindsay Chapman is Referral Physician. ke 18:18 Patient moved to TR8 cjh 18:20 The patient / caregiver is instructed regarding the plan of care and ED course. cj 18:20 Discontinued lock intact, bleeding controlled, pressure dressing applied, No cj redness/swelling at site. No procedures done that require assistance. 08/16 05:36 CT Head Without Contrast Returned. EDMS 12:16 T-Sheet-- Draft Copy was scanned into [employer] and attached to record. gb Administered Medications: 08/15 15:44 Drug: NS 0.9% 1000 ml [sodium chloride 0.9 % intravenous solution] Route: IV; Rate: 100 srm mL/hr; Site: right forearm; Order Results: Lab Order: CBC; SPEC'M 08/15/16 15:28 Test: WHITE BLOOD COUNT; Value: 8.5; Range: 4.0-10.0; Units: K/mm3; Status: F Test: RED BLOOD COUNT; Value: 3.85; Range: 4.00-5.40; Abnormal: Below low normal; Units: M/mm3; Status: F Test: HEMOGLOBIN; Value: 11.8; Range: 12.0-16.0; Abnormal: Below low normal; Units: g/dl; Status: F Test: HEMATOCRIT; Value: 36.1; Range: 36.0-47.0; Units: %; Status: F Test: MEAN CORPUSCULAR VOLUME; Value: 93.7; Range: 80.0-96.0; Units: fl; Status: F Test: MEAN CORPUSCULAR HEMOGLOBIN; Value: 30.5; Range: 27.0-33.0; Units: pg; Status: F Test: MEAN CORPUSCULAR HGB CONC; Value: 32.6; Range: 32.0-36.5; Units: g/dl; Status: F Test: RED CELL DISTRIBUTION WIDTH; Value: 13.5; Range: 11.5-14.5; Units: %; Status: F Test: PLATELET COUNT, AUTOMATED; Value: 208; Range: 150-450; Units: k/mm3; Status: F Lab Order: [facility]; [facility] 08/15/16 15:29 Test: GLUCOSE, FASTING; Value: 145; Range: 70-105; Abnormal: Above high normal; Units: MG/DL; Status: F Test: BLOOD UREA NITROGEN; Value: 14; Range: 7-18; Units: MG/DL; Status: F Test: CREATININE FOR GFR; Value: 0.74; Range: 0.55-1.02; Units: MG/DL; Status: F Test: GLOMERULAR FILTRATION RATE; Value: > 60.0; Range: >51; Status: F Test: SODIUM LEVEL; Value: 143; Range: 136-145; Units: MEQ/L; Status: F Test: POTASSIUM SERUM; Value: 4.6; Range: 3.5-5.1; Units: MEQ/L; Status: F Test: CHLORIDE LEVEL; Value: 111; Range: 98-107; Abnormal: Above high normal; Units: MEQ/L; Status: F Test: CARBON DIOXIDE LEVEL; Value: 21; Range: 21-32; Units: MEQ/L; Status: F Test: ANION GAP; Value: 11; Range: 8-16; Units: MEQ/L; Status: F Test: CALCIUM LEVEL; Value: 8.7; Range: 8.5-10.1; Units: MG/DL; Status: F Test Note: ; Units are mL/min/1.73 m2 Chronic Kidney Disease Staging per NKF: Stage I & II GFR >=60 Normal to Mildly Decreased Stage III GFR 30-59 Moderately Decreased Stage IV GFR 15-29 Severely Decreased Stage V GFR <15 Very Little GFR Left ESRD GFR <[address] [facility]ER Lab Order: -Influenza A&B Rapid Antigen - Nose; SPEC'M 08/15/16 15:28 Test: INFLUENZA A RAPID SCR by ICA; Value: INFLUENZA A RESULTS NEGATIVE; Status: F Test: INFLUENZA A RAPID SCR by ICA; Value: Comments:; Status: F Test: INFLUENZA B RAPID SCR by ICA; Value: INFLUENZA B RESULTS NEGATIVE; Status: F Test Note: ; The Influenza test is a direct rapid immunoassay for the qualitative detection of Influenza viral antigen. Cell culture (Viral Culture) testing should be considered to confirm NEGATIVE results and to assist in detecting other viruses that can provide similar clinical symptoms. Please contact the lab within 24 hours ([phone]) if confirmatory testing is desired. Lab Order: UA; SPEC'M 08/15/16 16:42 Test: APPEARANCE, URINE; Value: CLEAR; Range: CLEAR; Status: F Test: COLOR, URINE; Value: YELLOW; Range: YELLOW; Status: F Test: PH,URINE; Value: 7.0; Range: 5.0-9.0; Units: UNITS; Status: F Test: SPECIFIC GRAVITY URINE AUTO; Value: 1.011; Range: 1.002-1.035; Status: F Test: PROTEIN, URINE AUTO; Value: NEGATIVE; Range: NEGATIVE; Units: mg/dL; Status: F Test: GLUCOSE, URINE (UA) AUTO; Value: NEGATIVE; Range: NEGATIVE; Units: mg/dL; Status: F Test: KETONE, URINE AUTO; Value: NEGATIVE; Range: NEGATIVE; Units: mg/dL; Status: F Test: UROBILINOGEN, URINE AUTO; Value: 0.2; Range: 0.0-2.0; Units: mg/dL; Status: F Test: BILIRUBIN, URINE AUTO; Value: NEGATIVE; Range: NEGATIVE; Status: F Test: NITRITE, URINE AUTO; Value: NEGATIVE; Range: NEGATIVE; Status: F Test: LEUKOCYTE ESTERASE, URINE AUTO; Value: NEGATIVE; Range: NEGATIVE; Status: F Test: BLOOD, URINE BLOOD; Value: NEGATIVE; Range: NEGATIVE; Status: F Test: WBC, URINE AUTO; Value: 1; Range: 0-3; Units: /HPF; Status: F Test: RBC, URINE AUTO; Value: 1; Range: 0-3; Units: /HPF; Status: F Test: BACTERIA, URINE AUTO; Value: NEGATIVE; Range: NEGATIVE; Status: F Test: SQUAMOUS EPITHELIAL CELL UR AU; Value: 0; Range: 0-6; Units: /HPF; Status: F Test: HYALINE CAST, URINE AUTO; Value: 0; Range: 0-1; Units: /LPF; Status: F Test: AMORPHOUS SEDIMENT; Value: SMALL; Range: NEGATIVE; Abnormal: Above high normal; Status: F Lab Order: Urine Culture; SPEC'M 08/15/16 16:42 Test: URINE CULTURE; Value: <EXTERNAL COMMENT eCWMed> FULL REPORT IN LAB NOTES (eCW and Medent).; Status: F Test: URINE CULTURE; Value: URINE CULTURE RESULT NO GROWTH CLINICAL SIGNIFICANCE 1 ORGANISM; Status: F Radiology Order: CT Head Without Contrast Test: CT Head Without Contrast REASON FOR EXAMINATION: Trauma; Head CT without contrast:; ; History: Trauma.; ; Findings: Preliminary digital lateral management instructor view is unremarkable. Bone window; settings demonstrate an intact bony calvarium. No skull fracture is seen. There; is mucosal thickening affecting the maxillary sinuses and the ethmoid and; maxillary sinuses bilaterally. No intraorbital abnormality is seen.; ; On soft tissue window settings, the lateral, third, and fourth ventricles are; normal in size and position. Soria-white differentiation pattern is normal above; and below the tentorium. There is no evidence of intracranial hemorrhage. No; extra-axial fluid collection is seen. No mass or midline shift is seen.; ; Impression:; ; Paranasal sinus mucosal thickening in the ethmoid and maxillary sinuses; bilaterally. Otherwise negative head CT. No skull fracture or intracranial; injury seen.; ; ; Signed by; Angel Cunningham MD 08/16/2016 02:22 P; Outcome: 17:55 Discharge ordered by Provider. ke 18:20 Discharge Assessment: Patient awake, alert and oriented x 3. No cognitive and/or [facility] functional deficits noted. Patient verbalized understanding of disposition instructions. patient administered narcotics - no. The following High Risk Discharge criteria are identified: None. Discharged to home ambulatory, with significant other. Condition: good Condition: stable Condition: improved. Discharge instructions given to patient, Instructed on discharge instructions, follow up and referral plans. medication usage, Demonstrated understanding of instructions, medications, Pt was receptive of discharge instructions/ teaching. Prescriptions given X 1. CT Study completed. Property :Personal belongings accompany Pt. 19:03 Patient left the ED. [facility] Signatures: Dispatcher [employer] EDMS Delmi Siegel RN RN Sherie Mata RN RN [facility] Mariluz Guillen, Reg Reg gb Deondre Scott, INSTRUCTOR [employer]EW[employer]AT[employer] INSTRUCTOR [employer]AT[employer] Rita Mcleod, PHARMACIST CRITICAL CARE PHARMACIST CRITICAL CARE ar3 Glenis Cabrera RN RN [facility] Farida Guerrero, PHARMACIST CRITICAL CARE PHARMACIST CRITICAL CARE rs6 Macie Julien, Reg Reg ks16 Chart Complete MTDD
== END 2016-08-15 19:03 | disposition home or self-care (01) ==
LOC: M ED 14:11
DX: B34.9 Viral infection, unspecified (principal); R19.7 Diarrhea, unspecified; R20.2 Paresthesia of skin; I10 Essential (primary) hypertension; J45.909 Unspecified asthma, uncomplicated; E11.9 Type 2 diabetes mellitus without complications; I25.10 Atherosclerotic heart disease of native coronary artery without angina pectoris; F32.9 Major depressive disorder, single episode, unspecified; G25.81 Restless legs syndrome; E78.00 Pure hypercholesterolemia, unspecified; G70.00 Myasthenia gravis without (acute) exacerbation; Z86.73 Personal history of transient ischemic attack (TIA), and cerebral infarction without residual deficits; Z79.899 Other long term (current) drug therapy; Z79.82 Long term (current) use of aspirin; Z79.51 Long term (current) use of inhaled steroids; Z79.84 Long term (current) use of oral hypoglycemic drugs; Z88.2 Allergy status to sulfonamides

== ENCOUNTER → 2016-09-09 | Outpatient (CLI) | payer OTHER ==
[2016-09-09 18:40] LABS: MEAN CORPUSCULAR HGB CONC 31.6 g/dl (32.0-36.5); MEAN CORPUSCULAR VOLUME 94.9 fl (80.0-96.0); PLATELET COUNT, AUTOMATED 377 k/mm3 (150-450); RED CELL DISTRIBUTION WIDTH 13.2 % (11.5-14.5); WHITE BLOOD COUNT 8.6 K/mm3 (4.0-10.0)
[2016-09-09 18:46] LABS: ALBUMIN 3.9 GM/DL (3.2-5.2); ALBUMIN/GLOBULIN RATIO 1.08 (1.00-1.93); ALKALINE PHOSPHATASE 79 U/L (45-117); ALT/SGPT 19 U/L (12-78); ANION GAP 9 MEQ/L (8-16); AST/SGOT 15 U/L (15-37); BILIRUBIN,TOTAL 0.2 MG/DL (0.2-1.0); BLOOD UREA NITROGEN 15 MG/DL (7-18); CARBON DIOXIDE LEVEL 25 MEQ/L (21-32); CHLORIDE LEVEL 108 MEQ/L (98-107); CREATININE FOR GFR 0.84 MG/DL (0.55-1.02); GLOMERULAR FILTRATION RATE > 60.0 (>51); GLUCOSE, FASTING 83 MG/DL (70-105); IMMUNOGLOBULIN G 791 MG/DL (681-1648); POTASSIUM SERUM 4.6 MEQ/L (3.5-5.1); SODIUM LEVEL 142 MEQ/L (136-145); TOTAL PROTEIN 7.5 GM/DL (6.4-8.2)
== END ==
LOC: M SMT 13:45
PROVIDERS: ATTEND Nurse Practitioner Family
DX: D83.9 Common variable immunodeficiency, unspecified (principal)

== ENCOUNTER → 2016-12-29 | Outpatient (REF) | payer OTHER ==
[2016-12-29 16:34] LABS: ALBUMIN 3.8 GM/DL (3.2-5.2); ALBUMIN/GLOBULIN RATIO 1.09 (1.00-1.93); ALKALINE PHOSPHATASE 51 U/L (45-117); ALT/SGPT 34 U/L (12-78); ANION GAP 11 MEQ/L (8-16); AST/SGOT 12 U/L (15-37); BILIRUBIN,TOTAL 0.3 MG/DL (0.2-1.0); BLOOD UREA NITROGEN 17 MG/DL (7-18); CALCIUM LEVEL 9.2 MG/DL (8.5-10.1); CARBON DIOXIDE LEVEL 27 MEQ/L (21-32); CHLORIDE LEVEL 106 MEQ/L (98-107); GLOMERULAR FILTRATION RATE > 60.0 (>51); GLUCOSE, FASTING 148 MG/DL (70-105); POTASSIUM SERUM 4.6 MEQ/L (3.5-5.1); SODIUM LEVEL 144 MEQ/L (136-145); TOTAL PROTEIN 7.3 GM/DL (6.4-8.2)
[2016-12-29 16:45] LABS: BASO # 0.1 K/mm3 (0.0-0.2); BASO % 0.7 % (0.0-1.0); EOS # 0.2 K/mm3 (0.0-0.50); LARGE UNSTAINED CELL # 0.2 K/mm3 (0.0-0.4); LARGE UNSTAINED CELL % 2.1 % (0.0-4.0); LYMPH # 3.6 K/mm3 (1.5-4.5); LYMPH % 35.7 % (24.0-44.0); MEAN CORPUSCULAR HEMOGLOBIN 31.5 pg (27.0-33.0); MEAN CORPUSCULAR HGB CONC 32.7 g/dl (32.0-36.5); MEAN CORPUSCULAR VOLUME 96.3 fl (80.0-96.0); MONO # 0.5 K/mm3 (0.0-0.8); MONO % 4.9 % (0.0-5.0); NEUTROPHILS # 5.2 K/mm3 (1.8-7.7); NEUTROPHILS % 54.5 % (36.0-66.0); PLATELET COUNT, AUTOMATED 234 k/mm3 (150-450); RED CELL DISTRIBUTION WIDTH 13.5 % (11.5-14.5); WHITE BLOOD COUNT 9.6 K/mm3 (4.0-10.0)
== END ==
LOC: M LABNEURO 15:24
PROVIDERS: ATTEND Psychiatry & Neurology Neurology
DX: G70.00 Myasthenia gravis without (acute) exacerbation (principal)

== ENCOUNTER 2017-02-05 11:17 | Inpatient (IN) | payer OTHER ==
[~2017-02-05] VITALS: Ht 160 cm; Wt 107.4 kg
[2017-02-05] MEDS ORDERED: GABA-282 PO (11:36)
[2017-02-05] MEDS ORDERED: REPA1TAB6 PO (11:36)
[2017-02-05] MEDS ORDERED: TOPI50TA9 PO (11:36)
[2017-02-05] MEDS ORDERED: SUCR1SUS PO (11:36)
[2017-02-05] MEDS ORDERED: SING10TA32 PO (11:36)
[2017-02-05] MEDS ORDERED: ALBU17IN INH (11:36)
[2017-02-05] MEDS ORDERED: ENAL2.5T PO (11:36)
[2017-02-05] MEDS ORDERED: TOPI100T9 PO (11:36)
[2017-02-05] MEDS ORDERED: PYRI60TA2 PO (11:36)
[2017-02-05] MEDS ORDERED: MYCO250C PO (11:36)
[2017-02-05] MEDS ORDERED: CITA40TA4 PO (11:36)
[2017-02-05] MEDS ORDERED: HIZE20IN SC (11:36)
[2017-02-05] MEDS ORDERED: DITR5TAB PO (11:36)
[2017-02-05] MEDS ORDERED: NEXI20CA PO (11:36)
[2017-02-05] MEDS ORDERED: LORA10CA PO (11:36)
[2017-02-05] MEDS ORDERED: IPRASOL4 INH (11:36)
[2017-02-05] MEDS ORDERED: LIPI20TA PO (11:36)
[2017-02-05] MEDS ORDERED: JANU100T PO (11:36)
[2017-02-05] MEDS ORDERED: ASPI81TA85 PO (11:36)
[2017-02-05] MEDS ORDERED: FLUTISP (11:36)
[2017-02-05] MEDS ORDERED: BREO1INH3 INH (11:36)
[2017-02-05] MEDS ORDERED: METF500T13 PO (11:36)
[2017-02-05] MEDS ORDERED: RANI15TA PO (11:36)
[2017-02-05] MEDS ORDERED: IRON1TAB PO (11:36)
[2017-02-05] MEDS ORDERED: methylPREDNISolone INJ 125 MG/2 ML VIAL (J2930) IV ONE (12:30)
[2017-02-05] MEDS: IPRATROPIUM 0.5MG/ALBUTEROL 2.5MG INH SOL UD 3ML (DUONEB)(J7620) NEB PRN ×3 (12:41→13:19)
[2017-02-05 13:06] LABS: BASO % 0.5 % (0.0-1.0); EOS # 0.1 K/mm3 (0.0-0.50); EOS % 1.4 % (0.0-3.0); LARGE UNSTAINED CELL # 0.1 K/mm3 (0.0-0.4); LARGE UNSTAINED CELL % 0.8 % (0.0-4.0); LYMPH # 0.8 K/mm3 (1.5-4.5); LYMPH % 6.9 % (24.0-44.0); MEAN CORPUSCULAR HGB CONC 32.9 g/dl (32.0-36.5); MEAN CORPUSCULAR VOLUME 94.2 fl (80.0-96.0); MONO # 0.4 K/mm3 (0.0-0.8); MONO % 4.1 % (0.0-5.0); NEUTROPHILS # 8.4 K/mm3 (1.8-7.7); NEUTROPHILS % 86.3 % (36.0-66.0); PLATELET COUNT, AUTOMATED 226 k/mm3 (150-450); RED CELL DISTRIBUTION WIDTH 14.7 % (11.5-14.5); WHITE BLOOD COUNT 9.8 K/mm3 (4.0-10.0)
[2017-02-05 13:29] LABS: ALBUMIN/GLOBULIN RATIO 0.94 (1.00-1.93); ALKALINE PHOSPHATASE 53 U/L (45-117); ALT/SGPT 34 U/L (12-78); ANION GAP 13 MEQ/L (8-16); AST/SGOT 16 U/L (15-37); BILIRUBIN,DIRECT < 0.1 MG/DL (0.0-0.2); BILIRUBIN,TOTAL 0.3 MG/DL (0.2-1.0); BLOOD UREA NITROGEN 10 MG/DL (7-18); CALCIUM LEVEL 8.4 MG/DL (8.5-10.1); CARBON DIOXIDE LEVEL 21 MEQ/L (21-32); CHLORIDE LEVEL 100 MEQ/L (98-107); FREE T4 1.06 NG/DL (0.76-1.46); GLOMERULAR FILTRATION RATE > 60.0 (>51); GLUCOSE, FASTING 229 MG/DL (70-105); SODIUM LEVEL 134 MEQ/L (136-145); TOTAL PROTEIN 6.2 GM/DL (6.4-8.2)
[2017-02-05] MEDS ORDERED: ISOVUE-370 76% 100ML VIAL (Q9967) As Ordered ONE (13:43)
[2017-02-05] MEDS ORDERED: SODIUM CHLORIDE 0.9% 1000 ML IV ONE (13:45)
--- NOTE | 2017-02-05 14:08 | REP ---
REASON: Cough and dyspnea. COMPARISON: 03/14/2016 There is a minimal curvilinear opacity in the left lung base, probably reflecting subsegmental atelectatic change. There are no patchy opacities or pleural effusions or significant changes from the prior exam. The heart is not enlarged and the pleural angles are sharp. The osseous structures are within normal limits and unchanged. Spinal degenerative changes are noted status quo. IMPRESSION: No evidence of acute cardiopulmonary disease. Findings as described above. Signed by Martin Watson DO 02/05/2017 04:41 P
--- NOTE | 2017-02-05 14:57 | REP ---
REASON: Dyspnea. COMPARISON: 04/02/2016 which showed chronic lung miller changes. Contrast 100 mL of Isovue 370. There is excellent visualization of the pulmonary arterial vasculature. There are no focal filling defects present that would be considered consistent with pulmonary emboli. There are no changes from the prior exam. The mediastinum and pulmonary mike are unchanged. There is no mass or adenopathy. There are no pleural or pericardial effusions. There is no change in appearance of the imaged upper abdomen or imaged osseous structures. Evaluation of the lung miller show a patchy bibasilar opacity left slightly greater than right and seen in conjunction with a new left lower lobe 1.4 cm sized nodule. A symmetric opacities have also developed in the superior segment of the left lower lobe. IMPRESSION: 1. There is no pulmonary embolus. 2. Lung field changes as described above possibly reflecting pneumonia or neoplastic change. This needs to be correlated clinically with appropriate followup. Signed by Martin Watson DO 02/05/2017 04:43 P
[2017-02-05] MEDS ORDERED: ASPI325T PO (15:40)
[2017-02-05] MEDS ORDERED: CIPR-249 PO (15:40)
[2017-02-05] MEDS ORDERED: METF-699 PO (15:40)
[2017-02-05] MEDS ORDERED: IRON65TA PO (15:40)
[2017-02-05] MEDS ORDERED: VITA100072 PO (15:40)
[2017-02-05] MEDS ORDERED: VITMTA PO (15:40)
[2017-02-05] MEDS ORDERED: DRIS50002 PO (15:40)
--- NOTE | 2017-02-05 17:25 | HPEPDOC ---
Medical History and Physical Date of Admission History and Physical PRIMARY CARE PROVIDER: Unknown name ATTENDING: Dr. Avani Chavez CHIEF COMPLAINT: Shortness of breath/cough HISTORY OF PRESENT ILLNESS: This is a 56-year-old female past medical history of ?COPD/asthma, Parkinson's disease, restless leg syndrome, diabetes mellitus, myasthenia gravis follows up with Dr. Wilkinson, peripheral neuropathy, hyperlipidemia who presents complaining of shortness of breath or cough. Patient states she's been sick since September. States she initially developed bilateral pneumonia and was hospitalized in September, treated with levaquin, followed by recurrent pneumonia bilaterally in December 01, treated with Doxy. Patient was again diagnosed with Left sided pneumonia on January 07, and since then has been on 50 mg of prednisone, and once again started on ciprofloxacin which she started on the and continues to take until today. The patient has been seen by her skin carver Dr. Benavidez in [place], however states that he had prescribed her ciprofloxacin, with no other changes of her medications. The patient appears frustrated, and states that she's starting to develop swelling of her cheeks , as well as fluid retention, and is concerned that this may be from the steroids. The patient states that her shortness breath as prescribed so lately worsened and she continues to wheeze, despite using her nebulizers at home. PAST MEDICAL HISTORY: As per HPI PAST SURGICAL HISTORY: Hysterectomy, bilateral carpal tunnel, cholecystectomy, right ovarian cyst excision SOCIAL HISTORY: Denies tobacco abuse. Did have significant history of secondhand smoke. No alcohol abuse. FAMILY HISTORY: Father of cardiac arrest age 51. Brother had myocardial infarction ALLERGIES: Please see below. REVIEW OF SYSTEMS: HEENT: Denies sore throat/headache CARDIOVASCULAR: Denies chest pain/palpitations RESPIRATORY: + shortness of breath/cough GASTROINTESTINAL: denies nausea/vomiting GENITOURINARY: Denies dysuria/urinary urgency. MUSCULOSKELETAL: Denies myalgias/arthralgias NEUROLOGICAL: Denies any focal weakness HOME MEDICATIONS: Please see below. PHYSICAL EXAMINATION: Vitals: (see below) General: No acute distress, laying comfortably in bed. HEENT: Moist mucous membranes. Neck: No JVD or lymphadenopathy Cardiac: RRR, No murmurs Pulm: Fine crackles and expiratory wheezing bilaterally. Rhonchi bilaterally as well. No acute distress. Good cough. No use of accessory muscles. Abd: NT/ND + BS obese Ext: No edema or cyanosis LABORATORY DATA: See below. IMAGING: CTA chest 12/06/16 IMPRESSION: 1. There is no pulmonary embolus. 2. Lung field changes as described above possibly reflecting pneumonia or neoplastic change. This needs to be correlated clinically with appropriate followup. MICROBIOLOGY: Please see below. ASSESSMENT/PLAN: 1. Acute COPD exacerbation. ? Formal PFTs. Does follow-up with a skin carver in [place]. States she prefers to see Dr. Duffy however she has not had any openings in her office. Had been on prednisone 50 mg since January 07. We'll continue with dual nebs. Discontinue ciprofloxacin. Azithromycin started pending a sputum culture. Patient will ultimately need this prednisone taper down slowly as long-term use can lead to significance side effects. Her pulmonology consultation if no significant improvement by tomorrow. 2. Lactic Acidosis - ? 2/2 increased work of breathing, metformin, nebulizers, and/or underlying infection. She is receiving IVF and broad spectrum Abx for now , although sepsis may be less likely. Her last dose of metformin was this am. Will also check ABG. Cont to monitor. Her respiratory status is improving since admission. She has no abdominal pain. No other sources of infection aside from lung. Will decrease frequency of nebulizers. If worsening despite above measures, will need to obtain a critical care/nephrology consultation. 3.. History of recurrent pneumonia- does raise suspicion of underlying lung malignancy, especially in the setting of significant secondhand smoke. CTA ( see above). Will obtain a CT of the chest with and without contrast. ESR/CRP are low at this time. No leukocytosis. 4. History of Parkinson's disease- continue meds 5. History of myasthenia gravis- stable. Continue home meds. Follows up with Dr. Wilkinson 6. History of peripheral neuropathy 7. History of diabetes mellitus. Hold by mouth meds. Sliding scale insulin for now. May require Levemir. 8. Restless leg syndrome- continue meds 9. Hyperlipidemia- continue home meds 10. GERD- continue home meds DVT prophylaxis- heparin subcutaneous Prognosis: Guarded. Patient will be followed by Dr. Avani Chavez starting 02/06/17 at 7 AM. Vital Signs Vital Signs Date Time Temp Pulse Resp B/P (MAP) Pulse Ox O2 Delivery O2 Flow Rate FiO2 7/29/17 16:05 155/73 (100) 02/05/17 16:02 100 95 02/05/17 12:07 Room Air 02/05/17 11:17 97.2 20 Laboratory Data Labs 24H Laboratory Tests 2 02/05/17 12:54: White Blood Count 9.8, Red Blood Count 4.03, Hemoglobin 12.5, Hematocrit 38.0, Mean Corpuscular Volume 94.2, Mean Corpuscular Hemoglobin 31.0, Mean Corpuscular Hemoglobin Concent 32.9, Red Cell Distribution Width 14.7H, Platelet Count 226, Neutrophils (%) (Auto) 86.3H, Lymphocytes (%) (Auto) 6.9L, Monocytes (%) (Auto) 4.1, Eosinophils (%) (Auto) 1.4, Basophils (%) (Auto) 0.5, Neutrophils # (Auto) 8.4H, Lymphocytes # (Auto) 0.8L, Monocytes # (Auto) 0.4, Eosinophils # (Auto) 0.1, Basophils # (Auto) 0.0, Large Unclassified Cells % 0.8 , Large Unclassified Cells # 0.1, Anion Gap 13, Glomerular Filtration Rate > 60.0, Lactic Acid Level 5.1*H, Calcium Level 8.4L, Aspartate Amino Transf (AST/ SGOT) 16, Alanine Aminotransferase (ALT/SGPT) 34, Alkaline Phosphatase 53, Total Bilirubin 0.3, Direct Bilirubin < 0.1, Total Creatine Kinase 30, Creatine Kinase MB 1.0, Creatine Kinase MB Relative Index 3.33, Troponin I < 0.02, C- Reactive Protein, Quantitative 0.55H, B-Type Natriuretic Peptide 33.5, Total Protein 6.2L, Albumin 3.0L, Albumin/Globulin Ratio 0.94L, Thyroid Stimulating Hormone (TSH) 0.621, Free Thyroxine 1.06 CBC/BMP Laboratory Tests 02/05/17 12:54 Red Blood Count 4.03, Mean Corpuscular Volume 94.2, Mean Corpuscular Hemoglobin 31.0, Mean Corpuscular Hemoglobin Concent 32.9, Red Cell Distribution Width 14.7 H, Neutrophils (%) (Auto) 86.3 H, Lymphocytes (%) (Auto) 6.9 L, Monocytes ( %) (Auto) 4.1, Eosinophils (%) (Auto) 1.4, Basophils (%) (Auto) 0.5, Neutrophils # (Auto) 8.4 H, Lymphocytes # (Auto) 0.8 L, Monocytes # (Auto) 0.4, Eosinophils # (Auto) 0.1, Basophils # (Auto) 0.0 Microbiology Microbiology 02/05/17 Blood Culture, Received Pending 02/05/17 Blood Culture, Received Pending 02/05/17 Respiratory Virus Panel (PCR) ([facility]) - Final, Complete 02/05/17 Gram Stain - Final, Complete 02/05/17 Sputum Culture - Final, Complete Home Medications Scheduled (Hizentra) 10 Gm/50 Ml Inj, 15 GM SC 1XWK SATURDAYS (Loratadine) 10 Mg Cap, 10 MG PO DAILY (Iron) 325 Mg Tab, 325 MG PO BID Albuterol/Ipratropium (Ipratropium Harrell/Albut 0.5-2.5 (3) mg/3Ml) 1 Marcello Marcello, 1 MARCELLO INH QID Aspirin (Aspirin) 325 Mg Tab, 325 MG PO DAILY Atorvastatin Calcium (Lipitor) 20 Mg Tab, 20 MG PO QHS Ciprofloxacin HCl (Cipro) 500 Mg Tab, 500 MG PO BID FILLED 01/28 FOR 10 DAYS Citalopram Hydrobromide (Citalopram Hydrobromide) 40 Mg Tab, 40 MG PO DAILY HAS NOT BEEN TAKING SINCE PT STARTED CIPRO Cyanocobalamin (Vitamin B12) 1,000 Mcg Tab, 1,000 MCG PO DAILY Enalapril Maleate (Enalapril Maleate) 2.5 Mg Tab, 2.5 MG PO DAILY Esomeprazole Magnesium Trihydr (Nexium) 20 Mg Cap, 20 MG PO BID Fluticasone Propionate (Fluticasone Propionate) 50 Mcg/Act Spr, 2 SPRAY NA DAILY Fluticasone/Vilanterol (Breo Ellipta 200-25 Mcg/INH) 1 Inh Inh, 2 PUFF INH DAILY Gabapentin (Gabapentin) 300 Mg Cap, 300 MG PO TID Metformin Hydrochloride (Metformin HCl ER) 500 Mg Tab, 1,000 MG PO BID Montelukast Sodium (Singulair) 10 Mg Tab, 10 MG PO QPM DINNER TIME Multivitamins *[facility] STOCKED* (Thera M Plus *[facility] STOCKED*) 1 Tab Tab, 1 TAB PO DAILY Mycophenolate Mofetil (Mycophenolate Mofetil) 250 Mg Cap, 1,000 MG PO BID Pyridostigmine Harrell (Pyridostigmine Harrell) 60 Mg Tab, 60 MG PO QID Ranitidine Hcl (Zantac) 150 Mg Tab, 1 TAB PO QHS Repaglinide (Repaglinide) 2 Mg Tab, 2 MG PO BID TAKES AT NOON, AND QPM Sitagliptin Phosphate (Januvia) 100 Mg Tab, 100 MG PO DAILY Sucralfate (Sucralfate) 1 Gm/10 Ml Isaura, 1 GM PO QID Topiramate (Topiramate) 50 Mg Tab, 50 MG PO DAILY Topiramate (Topiramate) 100 Mg Tab, 100 MG PO QHS Vitamin D (Drisdol) 50,000 Unit Cap, 50,000 UNIT PO QWEEK WEDNESDAYS Scheduled PRN Albuterol Sulfate (Ventolin Hfa) 200 Puff/8 Gm Aers, 2 PUFF INH BID PRN for SOB/ WHEEZING Allergies Coded Allergies: Sulfa Antibiotics (Unverified Allergy, Unknown, 02/05/17) BETH ANTHONY MD Feb 05, 2017 17:25
[2017-02-05] MEDS ORDERED: AZITHROMYCIN INJ 500 MG, VIAL MATE ADAPTER 1 EACH in D5W 250 ML IV SCH (18:00)
[2017-02-05 18:35] VITALS: BP 151/75
[2017-02-05] MEDS ORDERED: ALBUTEROL SULFATE 2.5 MG/0.5 ML INH NEB SOLN INH PRN (18:45)
[2017-02-05] MEDS ORDERED: NS 1,000 ML IV ONE (18:45)
[2017-02-05 18:50] LABS: ABG BASE EXCESS -9.7 (-2.0-2.0); ABG HCO3 14.8 MEQ/L (22.0-26.0); ABG PARTIAL PRESSURE CO2 28.8 mmHg (35.0-45.0); ABG PARTIAL PRESSURE O2 98.1 mmHg (75.0-100.0); ABG STANDARD HCO3 16.8 MEQ/L (22.0-26.0); ABG TOTAL CO2 15.7 MEQ/L (22.0-29.0); ABG pH (ARTERIAL) 7.329 UNITS (7.350-7.450)
[2017-02-05] MEDS ORDERED: DEXTROSE 50% 50 ML SYRINGE IV PRN (19:00)
[2017-02-05] MEDS ORDERED: GLUCOSE 4 GM CHEW TABLET PO PRN (19:00)
[2017-02-05] MEDS ORDERED: GLUCAGON FOR INJ 1 MG VIAL (J1610) SC PRN (19:00)
[2017-02-05 20:00] VITALS: BP 130/63
[2017-02-05] MEDS ORDERED: IPRATROPIUM 0.5MG/ALBUTEROL 2.5MG INH SOL UD 3ML (DUONEB)(J7620) NEB SCH (20:00)
[2017-02-05] MEDS ORDERED: VANCOMYCIN HCL 750 MG, VIAL MATE ADAPTER 1 EACH in D5W 250 ML IV ONE (21:00)
[2017-02-05] MEDS: HumaLOG INSULIN (NovoLOG) PER UNIT SC SCH (21:08)
[2017-02-05] MEDS: FAMOTIDINE 20 MG TAB PO SCH (21:09)
[2017-02-05] MEDS: SUCRALFATE SUSP 1GM/10ML UD PO SCH (21:09)
[2017-02-05] MEDS: FERROUS SULFATE 325MG TAB PO SCH (21:09)
[2017-02-05] MEDS: PYRIDOSTIGMINE 60 MG TAB PO SCH (21:09)
[2017-02-05] MEDS: MYCOPHENOLATE MOFETIL 250 MG CAP (J7517) PO SCH (21:09)
[2017-02-05] MEDS: MONTELUKAST 10 MG TAB PO SCH (21:09)
[2017-02-05] MEDS: ATORVASTATIN 20 MG TAB PO SCH (21:09)
[2017-02-05] MEDS: GABAPENTIN 300 MG CAP PO SCH (21:09)
[2017-02-05] MEDS: PANTOPRAZOLE 20 MG TAB PO SCH (21:09)
[2017-02-05] MEDS: NS 1,000 ML IV SCH (21:10)
[2017-02-05] MEDS: PIPERACILLIN/TAZOBACTAM SOD 3.375 GM in D5W MINI-BAG PLUS 50 ML IV SCH (21:10)
[2017-02-05] MEDS: TOPIRAMATE (TopAMAX) 100 MG TAB PO SCH (21:13)
[2017-02-05] MEDS: rOPINIRole 1MG TAB PO SCH (22:17)
[2017-02-05 22:53] LABS: CALCIUM LEVEL 8.5 MG/DL (8.5-10.1); CREATININE FOR GFR 1.04 MG/DL (0.55-1.02); GLOMERULAR FILTRATION RATE 58.1 (>51); POTASSIUM SERUM 4.1 MEQ/L (3.5-5.1)
[2017-02-05] MEDS: IPRATROPIUM 0.5MG/ALBUTEROL 2.5MG INH SOL UD 3ML (DUONEB)(J7620) NEB SCH (23:10)
[2017-02-05] MEDS: VANCOMYCIN HCL 1,000 MG, VIAL MATE ADAPTER 1 EACH in D5W 250 ML IV SCH (23:46)
[2017-02-06] VITALS: BP 126/60
[2017-02-06] MEDS: PIPERACILLIN/TAZOBACTAM SOD 3.375 GM in D5W MINI-BAG PLUS 50 ML IV SCH ×4 (02:00→19:39)
--- NOTE | 2017-02-06 02:49 | ECGEPIP ---
Stationary ECG Study [facility] - ED Test Date: 2017-02-05 Pat Name: ISIDRA YANEZ Department: Room: - Gender: F Radiology Administrator: NORMA : 1960 Requested By: CONNIE BOUDREAUX Order Number: [id number] Reading MD: Igor Ruvalcaba Measurements Intervals Howe Rate: 100 P: 60 LA: 128 QRS: 14 QRSD: 81 T: 37 QT: 319 QTc: 413 Interpretive Statements SINUS TACHYCARDIA LOW QRS VOLTAGE IN PRECORDIAL LEADS SIMILAR TO 08/05/15 Electronically Signed On 02-06-2017 2:49:33 EDT by Igor Ruvalcaba
[2017-02-06 04:00] VITALS: BP 147/81
[2017-02-06 04:20] LABS: MEAN CORPUSCULAR HEMOGLOBIN 31.4 pg (27.0-33.0); MEAN CORPUSCULAR HGB CONC 33.4 g/dl (32.0-36.5); MEAN CORPUSCULAR VOLUME 93.8 fl (80.0-96.0); RED CELL DISTRIBUTION WIDTH 14.6 % (11.5-14.5); WHITE BLOOD COUNT 9.1 K/mm3 (4.0-10.0)
[2017-02-06 04:33] LABS: ANION GAP 11 MEQ/L (8-16); BLOOD UREA NITROGEN 9 MG/DL (7-18); CALCIUM LEVEL 8.2 MG/DL (8.5-10.1); CARBON DIOXIDE LEVEL 23 MEQ/L (21-32); CHLORIDE LEVEL 105 MEQ/L (98-107); GLOMERULAR FILTRATION RATE > 60.0 (>51); GLUCOSE, FASTING 196 MG/DL (70-105); MAGNESIUM LEVEL 2.2 MG/DL (1.8-2.4); SODIUM LEVEL 139 MEQ/L (136-145)
[2017-02-06] MEDS: VANCOMYCIN HCL 1,000 MG, VIAL MATE ADAPTER 1 EACH in D5W 250 ML IV SCH (05:25)
[2017-02-06] MEDS: IPRATROPIUM 0.5MG/ALBUTEROL 2.5MG INH SOL UD 3ML (DUONEB)(J7620) NEB SCH ×5 (07:03→23:20)
[2017-02-06 08:09] VITALS: BP 140/78
[2017-02-06] MEDS: NS 1,000 ML IV SCH ×2 (08:59→16:41)
[2017-02-06] MEDS ORDERED: SITagliptin 50 MG TAB (JANUVIA) PO SCH (09:00)
[2017-02-06] MEDS: FLUTICASONE PROP 0.05% NASAL SPRAY 16 GM (FLONASE) SCH (09:00)
[2017-02-06] MEDS: SUCRALFATE SUSP 1GM/10ML UD PO SCH ×4 (09:00→21:36)
[2017-02-06] MEDS: HumaLOG INSULIN (NovoLOG) PER UNIT SC SCH ×4 (09:01→21:00)
[2017-02-06] MEDS: MYCOPHENOLATE MOFETIL 250 MG CAP (J7517) PO SCH ×2 (09:01→21:36)
[2017-02-06] MEDS: FERROUS SULFATE 325MG TAB PO SCH ×2 (09:01→21:37)
[2017-02-06] MEDS: TOPIRAMATE (TopAMAX) 25 MG TAB PO SCH (09:01)
[2017-02-06] MEDS: PYRIDOSTIGMINE 60 MG TAB PO SCH ×4 (09:01→21:37)
[2017-02-06] MEDS: rOPINIRole 1MG TAB PO SCH ×2 (09:01→21:36)
[2017-02-06] MEDS: ASPIRIN 325 MG TAB PO SCH (09:01)
[2017-02-06] MEDS: CitaloPRAM (CeleXA) 20 MG TAB PO SCH (09:01)
[2017-02-06] MEDS: GABAPENTIN 300 MG CAP PO SCH ×3 (09:02→21:37)
[2017-02-06] MEDS: PANTOPRAZOLE 20 MG TAB PO SCH ×2 (09:02→21:37)
[2017-02-06] MEDS: guaiFENesin ER 600 MG TAB PO SCH ×2 (09:02→21:36)
[2017-02-06] MEDS: CYANOCOBALAMIN 500 MCG TAB PO SCH (09:02)
[2017-02-06] MEDS: predniSONE 20 MG TAB PO SCH (09:02)
[2017-02-06] MEDS: MULTIVITAMINS/MINERALS THERAP 1 TAB PO SCH (09:02)
[2017-02-06] MEDS: BUDESONIDE 0.5 MG/2 ML INHALATION SUSPENSION INH SCH ×2 (11:04→20:11)
--- NOTE | 2017-02-06 11:34 | IPNPDOC ---
Subjective Date Seen The patient was seen on 02/06/17. Subjective Chief Complaint/HPI The patient is a 56-year-old female admitted with a reason for visit of Copd With Acute Exacerbation. Events since last encounter continues to have sob and cough though has very less phlegm, has hoarseness of voice, no nausea or vomiting , denies choking episodes or difficulty in swallowing , n fever or chills, no chest pain. no abdominal pain , nausea or vomiting or diarrhea. Objective Physical Examination General Exam: Positive: Alert, Cooperative, No Acute Distress Eye Exam: Positive: PERRLA, Conjunctiva & lids normal, EOMI, Negative: Sclera icteric ENT Exam: Positive: Atraumatic, Mucous membr. moist/pink, Pharynx Normal Neck Exam: Positive: Supple, Negative: JVD, thyromegaly Chest Exam: Positive: Rales, Rhonchi, Wheezing Heart Exam: Positive: Rate Normal, Regular Rhythm, Normal S1, Normal S2, Negative: Murmurs, Rubs Telemetry: Positive: No significant arrhythmia Abdomen Exam: Positive: Normal bowel sounds, Soft, Negative: Tenderness, Hepatospenomegaly Extremity Exam: Positive: Normal pulses, Negative: Clubbing, Cyanosis, Edema Skin Exam: Positive: Nl turgor and temperature, Negative: Rash, Breakdown Assessment /Plan Problems (1) Pneumonia Status: Acute Problem Text: recurrent pneumonia since september 2016 may have silent aspirations on the back ground of myasthenia and Parkinson disease causing recurrent pneumonias will continue with zosyn will get swallow evaluation (2) COPD with acute exacerbation Status: Acute Problem Text: will continue with duonebs, budesonide nebs and continue prednisone 40 mg daily. follow up with Dr krishnna after discharge. (3) Bronchiectasis Status: Chronic Problem Text: will try to mobilize secretions will give mucinex, incentive spirometry. (4) Parkinson disease Status: Chronic (5) Neuropathy Status: Chronic (6) Myasthenia gravis Status: Chronic Problem Text: continue home medications (7) Obesity Status: Chronic (8) Asthma Status: Chronic (9) Restless leg syndrome Status: Chronic (10) Hyperlipidemia Status: Chronic (11) Diabetes Status: Chronic Problem Text: hold metformin , will insulin sliding scale (12) Lung nodule Status: Acute Problem Text: seen on ct angio unsure if it is actually a nodules or infiltrate and secretions. will get a ct chest with contrast. Plan/VTE VTE Prophylaxis Ordered?: Yes VS, I&O, 24H, [facility] Vital Signs/I&O Vital Signs Date Time Temp Pulse Resp B/P (MAP) Pulse Ox O2 Delivery O2 Flow Rate FiO2 02/06/17 08:09 96.7 86 18 140/78 (98) 99 Room Air I&O- Last 24 Hours up to 6 AM 02/06/17 05:59 Intake Total 3445 ml Output Total 1900 ml Balance 1545 ml Laboratory Data 24H LABS Laboratory Tests 2 02/05/17 12:54: White Blood Count 9.8, Red Blood Count 4.03, Hemoglobin 12.5, Hematocrit 38.0, Mean Corpuscular Volume 94.2, Mean Corpuscular Hemoglobin 31.0, Mean Corpuscular Hemoglobin Concent 32.9, Red Cell Distribution Width 14.7H, Platelet Count 226, Neutrophils (%) (Auto) 86.3H, Lymphocytes (%) (Auto) 6.9L, Monocytes (%) (Auto) 4.1, Eosinophils (%) (Auto) 1.4, Basophils (%) (Auto) 0.5, Neutrophils # (Auto) 8.4H, Lymphocytes # (Auto) 0.8L, Monocytes # (Auto) 0.4, Eosinophils # (Auto) 0.1, Basophils # (Auto) 0.0, Large Unclassified Cells % 0.8 , Large Unclassified Cells # 0.1, Anion Gap 13, Glomerular Filtration Rate > 60.0, Lactic Acid Level 5.1*H, Calcium Level 8.4L, Aspartate Amino Transf (AST/ SGOT) 16, Alanine Aminotransferase (ALT/SGPT) 34, Alkaline Phosphatase 53, Total Bilirubin 0.3, Direct Bilirubin < 0.1, Total Creatine Kinase 30, Creatine Kinase MB 1.0, Creatine Kinase MB Relative Index 3.33, Troponin I < 0.02, C- Reactive Protein, Quantitative 0.55H, B-Type Natriuretic Peptide 33.5, Total Protein 6.2L, Albumin 3.0L, Albumin/Globulin Ratio 0.94L, Thyroid Stimulating Hormone (TSH) 0.621, Free Thyroxine 1.06 02/05/17 17:37: Lactic Acid Followup at 4 Hours 6.4*H 02/05/17 18:39: Blood Gas Bicarbonate Standard 16.8L, Arterial Blood pH 7.329L, Arterial Blood Partial Pressure CO2 28.8L, Arterial Blood Partial Pressure O2 98.1, Arterial Blood Total CO2 15.7L, Arterial Blood HCO3 14.8L, Arterial Blood Base Excess - 9.7L, Arterial Blood Oxygen Saturation 97.0 02/05/17 21:03: Bedside Glucose (Misc Panel) 423H 02/05/17 22:26: Anion Gap 16, Glomerular Filtration Rate 58.1, Lactic Acid Level 5.9*H, Blood Urea Nitrogen 12, Creatinine 1.04H, Sodium Level 136, Potassium Level 4.1, Chloride Level 102, Carbon Dioxide Level 18L, Calcium Level 8.5 02/06/17 04:06: Anion Gap 11, Glomerular Filtration Rate > 60.0, Blood Urea Nitrogen 9, Creatinine 0.80, Sodium Level 139, Potassium Level 4.0, Chloride Level 105, Carbon Dioxide Level 23, Calcium Level 8.2L, Lactic Acid Followup at 4 Hours 2.9 *H, Magnesium Level 2.2 02/06/17 09:43: Lactic Acid Level 4.0*H CBC/BMP Laboratory Tests 02/05/17 12:54 Red Blood Count 4.03, Mean Corpuscular Volume 94.2, Mean Corpuscular Hemoglobin 31.0, Mean Corpuscular Hemoglobin Concent 32.9, Red Cell Distribution Width 14.7 H, Neutrophils (%) (Auto) 86.3 H, Lymphocytes (%) (Auto) 6.9 L, Monocytes ( %) (Auto) 4.1, Eosinophils (%) (Auto) 1.4, Basophils (%) (Auto) 0.5, Neutrophils # (Auto) 8.4 H, Lymphocytes # (Auto) 0.8 L, Monocytes # (Auto) 0.4, Eosinophils # (Auto) 0.1, Basophils # (Auto) 0.0 02/05/17 22:26 Calcium Level 8.5 02/06/17 04:06 Red Blood Count 3.63 L, Mean Corpuscular Volume 93.8, Mean Corpuscular Hemoglobin 31.4, Mean Corpuscular Hemoglobin Concent 33.4, Red Cell Distribution Width 14.6 H, Calcium Level 8.2 L Microbiology Microbiology 02/05/17 Blood Culture, Received Pending 02/05/17 Blood Culture, Received Pending 02/06/17 Gram Stain - Final, Resulted 02/06/17 Sputum Culture, Resulted Pending 02/05/17 Respiratory Virus Panel (PCR) ([facility]) - Final, Complete 02/05/17 Gram Stain - Final, Complete 02/05/17 Sputum Culture - Final, Complete ABRAHAN MOLINA MD Feb 06, 2017 11:34
[2017-02-06 12:00] VITALS: BP 146/69
[2017-02-06] MEDS: rOPINIRole 0.25 MG TAB(REQUIP) PO SCH (14:57)
[2017-02-06 16:00] VITALS: BP 139/72
[2017-02-06 21:00] VITALS: BP 136/65
[2017-02-06] MEDS: FAMOTIDINE 20 MG TAB PO SCH (21:36)
[2017-02-06] MEDS: TOPIRAMATE (TopAMAX) 100 MG TAB PO SCH (21:37)
[2017-02-06] MEDS: ATORVASTATIN 20 MG TAB PO SCH (21:37)
[2017-02-06] MEDS: MONTELUKAST 10 MG TAB PO SCH (21:37)
[2017-02-07] VITALS (7 sets, daily range): BP systolic 128–164; BP diastolic 67–90
[2017-02-07] MEDS: NS 1,000 ML IV SCH (02:48)
[2017-02-07] MEDS: PIPERACILLIN/TAZOBACTAM SOD 3.375 GM in D5W MINI-BAG PLUS 50 ML IV SCH ×4 (02:48→20:30)
[2017-02-07] MEDS: IPRATROPIUM 0.5MG/ALBUTEROL 2.5MG INH SOL UD 3ML (DUONEB)(J7620) NEB SCH ×6 (03:13→23:25)
[2017-02-07 06:09] LABS: MEAN CORPUSCULAR HEMOGLOBIN 31.8 pg (27.0-33.0); MEAN CORPUSCULAR HGB CONC 33.4 g/dl (32.0-36.5); MEAN CORPUSCULAR VOLUME 95.2 fl (80.0-96.0); RED CELL DISTRIBUTION WIDTH 14.7 % (11.5-14.5); WHITE BLOOD COUNT 7.5 K/mm3 (4.0-10.0)
[2017-02-07 06:31] LABS: ANION GAP 9 MEQ/L (8-16); BLOOD UREA NITROGEN 15 MG/DL (7-18); CALCIUM LEVEL 8.4 MG/DL (8.5-10.1); CARBON DIOXIDE LEVEL 24 MEQ/L (21-32); CHLORIDE LEVEL 108 MEQ/L (98-107); CREATININE FOR GFR 0.72 MG/DL (0.55-1.02); GLOMERULAR FILTRATION RATE > 60.0 (>51); GLUCOSE, FASTING 186 MG/DL (70-105); MAGNESIUM LEVEL 2.2 MG/DL (1.8-2.4); POTASSIUM SERUM 3.9 MEQ/L (3.5-5.1); SODIUM LEVEL 141 MEQ/L (136-145)
[2017-02-07] MEDS: BUDESONIDE 0.5 MG/2 ML INHALATION SUSPENSION INH SCH ×2 (07:54→19:28)
--- NOTE | 2017-02-07 08:24 | IPNPDOC ---
Subjective Date Seen The patient was seen on 02/07/17. Subjective Chief Complaint/HPI The patient is a 56-year-old female admitted with a reason for visit of Copd With Acute Exacerbation. Events since last encounter able to bring up more phlegm with acapella however still complains of rattling in the chest. No fever or chills, no chest pain , no worsened sob , still has wheezing, no abdominal pain , nausea or vomiting or diarrhea. Objective Physical Examination General Exam: Positive: Alert, Cooperative, No Acute Distress Eye Exam: Positive: PERRLA, Conjunctiva & lids normal, EOMI, Negative: Sclera icteric ENT Exam: Positive: Atraumatic, Mucous membr. moist/pink, Pharynx Normal Neck Exam: Positive: Supple, Negative: JVD, thyromegaly Chest Exam: Positive: Rales, Rhonchi, Wheezing Heart Exam: Positive: Rate Normal, Regular Rhythm, Normal S1, Normal S2, Negative: Murmurs, Rubs Telemetry: Positive: No significant arrhythmia Abdomen Exam: Positive: Normal bowel sounds, Soft, Negative: Tenderness, Hepatospenomegaly Extremity Exam: Positive: Normal pulses, Negative: Clubbing, Cyanosis, Edema Skin Exam: Positive: Nl turgor and temperature, Negative: Rash, Breakdown Assessment /Plan Problems (1) Pneumonia Status: Acute Problem Text: recurrent pneumonia since september 2016 may have silent aspirations on the back ground of myasthenia and Parkinson disease causing recurrent pneumonias will continue with zosyn will get swallow evaluation (2) COPD with acute exacerbation Status: Acute Problem Text: will continue with duonebs, budesonide nebs and continue prednisone 40 mg daily. follow up with Dr krishnan after discharge. (3) Bronchiectasis Status: Chronic Problem Text: will try to mobilize secretions will give mucinex, incentive spirometry. (4) Parkinson disease Status: Chronic (5) Neuropathy Status: Chronic (6) Myasthenia gravis Status: Chronic Problem Text: continue home medications (7) Obesity Status: Chronic (8) Asthma Status: Chronic (9) Restless leg syndrome Status: Chronic (10) Hyperlipidemia Status: Chronic (11) Diabetes Status: Chronic Problem Text: hold metformin , will insulin sliding scale, sugars uncontrolled with steroids will start levemir. (12) Lung nodule Status: Acute Problem Text: seen on ct angio unsure if it is actually a nodules or infiltrate and secretions. will get a ct chest with contrast. (13) DMITRI on CPAP Status: Chronic (14) Lactic acid acidosis Status: Acute Problem Text: possibly due to metformin, excessive work of breathing and nebulizations, patient does not have sepsis will continue with IVF will check lactate Plan/VTE VTE Prophylaxis Ordered?: Yes VS, I&O, 24H, [facility] Vital Signs/I&O Vital Signs Date Time Temp Pulse Resp B/P (MAP) Pulse Ox O2 Delivery O2 Flow Rate FiO2 02/07/17 05:04 97.6 70 16 146/67 (93) 96 NIPPV (BIPAP/CPAP) I&O- Last 24 Hours up to 6 AM 02/07/17 06:00 Intake Total 3750 ml Output Total 3750 ml Balance 0 ml Laboratory Data 24H LABS Laboratory Tests 2 02/06/17 09:43: Lactic Acid Level 4.0*H 02/06/17 11:32: Bedside Glucose (Misc Panel) 181H 02/06/17 14:05: Lactic Acid Followup at 4 Hours 4.4*H 02/06/17 16:35: Bedside Glucose (Misc Panel) 424H 02/06/17 18:08: Lactic Acid Level 6.5*H 02/06/17 21:18: Bedside Glucose (Misc Panel) 272H 02/06/17 22:16: Lactic Acid Followup at 4 Hours 2.4*H 02/07/17 05:51: Anion Gap 9, Glomerular Filtration Rate > 60.0, Blood Urea Nitrogen 15#, Creatinine 0.72, Sodium Level 141, Potassium Level 3.9, Chloride Level 108H, Carbon Dioxide Level 24, Calcium Level 8.4L, Magnesium Level 2.2 CBC/BMP Laboratory Tests 02/07/17 05:51 Red Blood Count 3.39 L, Mean Corpuscular Volume 95.2, Mean Corpuscular Hemoglobin 31.8, Mean Corpuscular Hemoglobin Concent 33.4, Red Cell Distribution Width 14.7 H, Calcium Level 8.4 L Microbiology Microbiology 02/05/17 Blood Culture - Preliminary, Resulted No growth after 24 hours . All specim... 02/05/17 Blood Culture - Preliminary, Resulted No growth after 24 hours . All specim... 02/06/17 Gram Stain - Final, Resulted 02/06/17 Sputum Culture, Resulted Pending 02/05/17 Respiratory Virus Panel (PCR) ([facility]) - Final, Complete 02/05/17 Gram Stain - Final, Complete 02/05/17 Sputum Culture - Final, Complete ABRAHAN MOLINA MD Feb 07, 2017 08:24
[2017-02-07] MEDS ORDERED: IBUPROFEN 400 MG TAB PO PRN (08:30)
[2017-02-07] MEDS: FERROUS SULFATE 325MG TAB PO SCH ×2 (08:53→20:33)
[2017-02-07] MEDS: ASPIRIN 325 MG TAB PO SCH (08:54)
[2017-02-07] MEDS: MULTIVITAMINS/MINERALS THERAP 1 TAB PO SCH (08:54)
[2017-02-07] MEDS: SENOKOT S TAB PO SCH ×2 (08:54→20:32)
[2017-02-07] MEDS: predniSONE 20 MG TAB PO SCH (08:54)
[2017-02-07] MEDS: CYANOCOBALAMIN 500 MCG TAB PO SCH (08:55)
[2017-02-07] MEDS: PANTOPRAZOLE 20 MG TAB PO SCH ×2 (08:55→20:34)
[2017-02-07] MEDS: rOPINIRole 1MG TAB PO SCH ×2 (08:55→20:34)
[2017-02-07] MEDS: MYCOPHENOLATE MOFETIL 250 MG CAP (J7517) PO SCH ×2 (08:55→20:32)
[2017-02-07] MEDS: TOPIRAMATE (TopAMAX) 25 MG TAB PO SCH (08:56)
[2017-02-07] MEDS: SUCRALFATE SUSP 1GM/10ML UD PO SCH ×4 (08:56→20:31)
[2017-02-07] MEDS: FLUTICASONE PROP 0.05% NASAL SPRAY 16 GM (FLONASE) SCH (08:56)
[2017-02-07] MEDS: PYRIDOSTIGMINE 60 MG TAB PO SCH ×4 (08:56→20:34)
[2017-02-07] MEDS: GABAPENTIN 300 MG CAP PO SCH ×3 (08:57→20:32)
[2017-02-07] MEDS: guaiFENesin ER 600 MG TAB PO SCH ×2 (08:57→20:34)
[2017-02-07] MEDS: CitaloPRAM (CeleXA) 20 MG TAB PO SCH (08:57)
[2017-02-07] MEDS: HumaLOG INSULIN (NovoLOG) PER UNIT SC SCH ×4 (08:58→21:08)
[2017-02-07] MEDS: LEVEMIR (INSULIN DETEMIR) 1 UNITS/0.01ML SC SCH (08:59)
[2017-02-07] MEDS ORDERED: VARIBAR NECTAR 40% w/v 240ML SUSP BTL As Ordered ONE (11:20)
[2017-02-07] MEDS ORDERED: VARIBAR PUDDING 40% w/v 230ML TUBE As Ordered ONE (11:20)
[2017-02-07] MEDS ORDERED: E-Z-PAQUE 96% w/w SUSP 176GM BTL As Ordered ONE (11:20)
[2017-02-07] MEDS: rOPINIRole 0.25 MG TAB(REQUIP) PO SCH (14:12)
[2017-02-07] MEDS ORDERED: FUROSEMIDE 40 MG/4 ML VIAL (J1940) IV ONE (15:00)
--- NOTE | 2017-02-07 17:40 | REP ---
TAMMY SWALLOW: The procedure was performed under the direct supervision of Dr. Blackman. The procedure was performed with Demi Rice and Socorro Castro from speech pathology present. 5 mL aliquots of solid, thin and soft consistency barium was administered. There is no evidence of penetration or aspiration. 1 minute and 1 second of fluoroscopy time was utilized for this procedure. Reviewed by DEANNA Monsalve 02/08/2017 01:11 PEdited and Signed by Buzz Blackman MD 02/08/2017 07:15 P
[2017-02-07] MEDS: FAMOTIDINE 20 MG TAB PO SCH (20:32)
[2017-02-07] MEDS: MONTELUKAST 10 MG TAB PO SCH (20:33)
[2017-02-07] MEDS: TOPIRAMATE (TopAMAX) 100 MG TAB PO SCH (20:33)
[2017-02-07] MEDS: ATORVASTATIN 20 MG TAB PO SCH (20:33)
[2017-02-08] VITALS: BP 136/65
[2017-02-08] MEDS: PIPERACILLIN/TAZOBACTAM SOD 3.375 GM in D5W MINI-BAG PLUS 50 ML IV SCH ×4 (02:40→21:15)
[2017-02-08] MEDS: IPRATROPIUM 0.5MG/ALBUTEROL 2.5MG INH SOL UD 3ML (DUONEB)(J7620) NEB SCH ×6 (03:40→23:24)
[2017-02-08 04:00] VITALS: BP 141/72
[2017-02-08] MEDS: BUDESONIDE 0.5 MG/2 ML INHALATION SUSPENSION INH SCH ×2 (07:20→19:42)
[2017-02-08 08:00] VITALS: BP 162/72
[2017-02-08 08:28] LABS: MEAN CORPUSCULAR HEMOGLOBIN 31.5 pg (27.0-33.0); MEAN CORPUSCULAR VOLUME 95.2 fl (80.0-96.0); RED CELL DISTRIBUTION WIDTH 14.4 % (11.5-14.5); WHITE BLOOD COUNT 9.5 K/mm3 (4.0-10.0)
[2017-02-08 08:34] LABS: ANION GAP 12 MEQ/L (8-16); BLOOD UREA NITROGEN 16 MG/DL (7-18); CALCIUM LEVEL 8.9 MG/DL (8.5-10.1); CARBON DIOXIDE LEVEL 26 MEQ/L (21-32); CHLORIDE LEVEL 102 MEQ/L (98-107); CREATININE FOR GFR 0.79 MG/DL (0.55-1.02); GLOMERULAR FILTRATION RATE > 60.0 (>51); GLUCOSE, FASTING 115 MG/DL (70-105); MAGNESIUM LEVEL 2.4 MG/DL (1.8-2.4); POTASSIUM SERUM 3.4 MEQ/L (3.5-5.1); SODIUM LEVEL 140 MEQ/L (136-145)
[2017-02-08] MEDS: MULTIVITAMINS/MINERALS THERAP 1 TAB PO SCH (08:47)
[2017-02-08] MEDS: SUCRALFATE SUSP 1GM/10ML UD PO SCH ×4 (08:47→21:37)
[2017-02-08] MEDS: predniSONE 20 MG TAB PO SCH (08:47)
[2017-02-08] MEDS: SENOKOT S TAB PO SCH ×2 (08:47→21:38)
[2017-02-08] MEDS: FLUTICASONE PROP 0.05% NASAL SPRAY 16 GM (FLONASE) SCH (08:47)
[2017-02-08] MEDS: FERROUS SULFATE 325MG TAB PO SCH ×2 (08:48→21:38)
[2017-02-08] MEDS: PANTOPRAZOLE 20 MG TAB PO SCH ×2 (08:48→21:39)
[2017-02-08] MEDS: ASPIRIN 325 MG TAB PO SCH (08:48)
[2017-02-08] MEDS: TOPIRAMATE (TopAMAX) 25 MG TAB PO SCH (08:48)
[2017-02-08] MEDS: GABAPENTIN 300 MG CAP PO SCH ×3 (08:48→21:39)
[2017-02-08] MEDS: rOPINIRole 1MG TAB PO SCH ×2 (08:49→21:39)
[2017-02-08] MEDS: MYCOPHENOLATE MOFETIL 250 MG CAP (J7517) PO SCH ×2 (08:49→21:38)
[2017-02-08] MEDS: guaiFENesin ER 600 MG TAB PO SCH ×2 (08:49→21:38)
[2017-02-08] MEDS: PYRIDOSTIGMINE 60 MG TAB PO SCH ×4 (08:49→21:38)
[2017-02-08] MEDS: CitaloPRAM (CeleXA) 20 MG TAB PO SCH (08:50)
[2017-02-08] MEDS: CYANOCOBALAMIN 500 MCG TAB PO SCH (08:50)
[2017-02-08] MEDS: HumaLOG INSULIN (NovoLOG) PER UNIT SC SCH ×4 (08:51→21:00)
[2017-02-08] MEDS: LEVEMIR (INSULIN DETEMIR) 1 UNITS/0.01ML SC SCH (08:51)
[2017-02-08] MEDS ORDERED: ISOVUE-370 76% 100ML VIAL (Q9967) As Ordered ONE (09:03)
[2017-02-08 10:00] VITALS: BP 163/78
[2017-02-08] MEDS ORDERED: FUROSEMIDE 40 MG/4 ML VIAL (J1940) IV ONE (11:00)
[2017-02-08 12:00] VITALS: BP 144/86
[2017-02-08] MEDS: rOPINIRole 0.25 MG TAB(REQUIP) PO SCH (14:10)
--- NOTE | 2017-02-08 18:22 | IPNPDOC ---
Date Seen The patient was seen on 02/08/17. Progress Note Hospitalist Progress Note Subjective: Patient states that her breathing is better but still not good Objective: Physical Exam: Vitals: Vital Sign - Last 24 Hours 02/07/17 02/07/17 02/08/17 02/08/17 20:00 20:00 00:00 04:00 Temp 97.0 97.7 97.7 Pulse 78 67 67 Resp 20 20 18 B/P (MAP) 162/74 (103) 136/65 (88) 141/72 (95) Pulse Ox 96 95 97 O2 Delivery Room Air Room Air NIPPV (BIPAP/CPAP) NIPPV (BIPAP/CPAP) 02/08/17 02/08/17 02/08/17 02/08/17 08:00 08:00 10:00 11:08 Temp 97.2 97.3 Pulse 74 75 Resp 18 20 B/P (MAP) 162/72 (102) 163/78 (106) Pulse Ox 97 97 O2 Delivery Room Air Room Air Room Air Room Air 02/08/17 12:00 Temp 97.2 Pulse 68 Resp 18 B/P (MAP) 144/86 (105) Pulse Ox 100 O2 Delivery Room Air General: Awake, alert, no acute distress HEENT: Normocephalic, atraumatic, moist mucous membranes CV: Regular rate and rhythm, no murmurs rubs or gallops Lungs: Lungs are diffusely coarse in all miller, but there is no distinct wheeze or rhonchi Abd: Soft, nontender, nondistended Extremities: Trace Edema in bilateral lower extremities Neuro: Alert and oriented 3, normal speech Psych: Normal mood and affect Labs and Imaging: Laboratory Tests 02/08/17 07:42 Red Blood Count 3.99 L, Mean Corpuscular Volume 95.2, Mean Corpuscular Hemoglobin 31.5, Mean Corpuscular Hemoglobin Concent 33.0, Red Cell Distribution Width 14.4, Calcium Level 8.9 Assessment and Plan: 56-year-old female with COPD, Parkinson's disease, RLS, diabetes mellitus type 2 , myasthenia gravis follows with Dr. Wilkinson, peripheral neuropathy, hyperlipidemia who presented with shortness of breath and cough. She is admitted with concern for potential pneumonia as well as COPD exacerbation. 1. HCAP: CTA of the chest shows concern for pneumonia versus possible neoplastic change with patchy bibasilar opacities, left worse than the right, as well as a new left lower lobe nodule. Dr. Chavez reviewed these images with Dr. Ambriz, who does not believe that this represents a nodule but that might more accurately represent secretions and bronchiectasis. CT with contrast is pending. The patient has been afebrile with a normal white count, and is currently on Zosyn. There is some concern that potentially the patient was having chronic micro aspiration, however, she was evaluated by speech therapy yesterday who did not appreciate any aspiration. That being said, with her fluctuating past medical history from the myasthenia gravis and Parkinson's, we cannot completely rule out that she does not have episodes of aspiration. We will add back Levaquin at this time. Sputum culture is growing only normal yari. 2. COPD exacerbation: Likely secondary to above pneumonia. Continue DuoNeb's, Pulmicort, Singulair, and Flonase. The patient is currently on prednisone, which we will continue and wean very slowly. Will need to follow-up with Dr. Duffy after discharge. 3. Myasthenia gravis: Continue Mestinon and cellcept 4. RLS: Continue home requip 5. Peripheral neuropathy: Continue home gabapentin 6. Diabetes mellitus type 2: Currently holding home metformin and repaglinide. Sliding scale insulin while in house. With the steroids, the patient's sugars have been very uncontrolled and she was started on Levemir 15u daily which we' ll continue at this time. 7. Hyperlipidemia: Continue home statin. 8. Lactic acidosis: Potentially secondary to her increased work of breathing. We are currently holding her home metformin, she had been on IV fluids, but she appeared to get volume overloaded and required Lasix, so fluids have been stopped at this point. 9. GERD: Continue home H2 de, PPI and Carafate. DVT prophylaxis: SCDs Dispo: pending clinical improvement, as well as CT of the chest VS, I&O, 24H, Fishbone Vital Signs/I&O Vital Signs Date Time Temp Pulse Resp B/P (MAP) Pulse Ox O2 Delivery O2 Flow Rate FiO2 02/08/17 12:00 97.2 68 18 144/86 (105) 100 Room Air I&O- Last 24 Hours up to 6 AM 02/08/17 06:00 Intake Total 2519 ml Output Total 9550 ml Balance -7031 ml Laboratory Data 24H LABS Laboratory Tests 2 02/07/17 19:33: Lactic Acid Followup at 4 Hours 4.2*H 02/07/17 20:46: Bedside Glucose (Misc Panel) 292H 02/08/17 07:42: Anion Gap 12, Glomerular Filtration Rate > 60.0, Lactic Acid Level 2.8*H, Blood Urea Nitrogen 16, Creatinine 0.79, Sodium Level 140, Potassium Level 3.4L, Chloride Level 102, Carbon Dioxide Level 26, Calcium Level 8.9, Magnesium Level 2.4 02/08/17 07:52: Bedside Glucose (Misc Panel) 119H 02/08/17 11:22: Bedside Glucose (Misc Panel) 276H 02/08/17 12:13: Lactic Acid Followup at 4 Hours 4.4*H 02/08/17 16:12: Lactic Acid Level 4.0*H 02/08/17 16:47: Bedside Glucose (Misc Panel) 356H CBC/BMP Laboratory Tests 02/08/17 07:42 Red Blood Count 3.99 L, Mean Corpuscular Volume 95.2, Mean Corpuscular Hemoglobin 31.5, Mean Corpuscular Hemoglobin Concent 33.0, Red Cell Distribution Width 14.4, Calcium Level 8.9 Microbiology Microbiology 02/05/17 Blood Culture - Preliminary, Resulted No Growth after 72 hours. All specime... 02/05/17 Blood Culture - Preliminary, Resulted No Growth after 72 hours. All specime... 02/06/17 Gram Stain - Final, Complete 02/06/17 Sputum Culture - Final, Complete 02/05/17 Respiratory Virus Panel (PCR) ([facility]) - Final, Complete 02/05/17 Gram Stain - Final, Complete 02/05/17 Sputum Culture - Final, Complete BERNARD RYAN Feb 08, 2017 18:22
[2017-02-08] MEDS: LevoFLOXacin 750 MG TABLET PO SCH (18:53)
--- NOTE | 2017-02-08 19:05 | REP ---
CT chest with contrast: 02/08/2017. Comparison: CT angiogram chest 02/05/2017, chest x-ray 02/05/2017. Clinical history: Lung nodule, recurrent pneumonia. Technique: Bolus of 75 mL Isovue 370 and scanning through the chest with coronal and sagittal reconstructions. Lung miller are well inflated. Nodular and interstitial infiltrates in the bilateral lower lobe lobes and infrahilar regions noted. There is some cylindrical bronchiectatic change. Deep sulcus atelectatic opacity is improved on the left side. There is some improvement in the tiny nodular densities or tree in bud appearance suggesting bronchiectasis with some improvement in acute infection in that clinical setting. I do not see pleural effusion, pleural-based mass or other acute lung findings. There is no pneumothorax or pneumomediastinum. The heart, mediastinal and hilar contours are unremarkable. The aorta is without aneurysm or dissection. Central pulmonary arteries are without filling defects. No axillary or supraclavicular mass. The upper abdomen is unchanged. Impression: 1. There is some improvement in the nodular and interstitial infiltrates in the perihilar and lower lung zones. There is bronchiectatic change and I suspect there is some improvement with this tree in bud appearing nodular infiltrates secondary to bronchiectasis. No effusion or other acute finding. Signed by Buzz Blackman MD 02/08/2017 07:14 P
[2017-02-08 20:00] VITALS: BP 140/65
[2017-02-08] MEDS: ATORVASTATIN 20 MG TAB PO SCH (21:38)
[2017-02-08] MEDS: FAMOTIDINE 20 MG TAB PO SCH (21:39)
[2017-02-08] MEDS: MONTELUKAST 10 MG TAB PO SCH (21:39)
[2017-02-08] MEDS: TOPIRAMATE (TopAMAX) 100 MG TAB PO SCH (21:39)
[2017-02-09] VITALS: BP 145/65
[2017-02-09] MEDS: PIPERACILLIN/TAZOBACTAM SOD 3.375 GM in D5W MINI-BAG PLUS 50 ML IV SCH ×2 (02:36→08:07)
[2017-02-09] MEDS: IPRATROPIUM 0.5MG/ALBUTEROL 2.5MG INH SOL UD 3ML (DUONEB)(J7620) NEB SCH ×5 (03:58→19:40)
[2017-02-09 04:00] VITALS: BP 141/72
[2017-02-09] MEDS: BUDESONIDE 0.5 MG/2 ML INHALATION SUSPENSION INH SCH ×2 (07:31→19:40)
[2017-02-09 07:32] LABS: ANION GAP 10 MEQ/L (8-16); BLOOD UREA NITROGEN 15 MG/DL (7-18); CALCIUM LEVEL 9.2 MG/DL (8.5-10.1); CARBON DIOXIDE LEVEL 26 MEQ/L (21-32); CHLORIDE LEVEL 101 MEQ/L (98-107); CREATININE FOR GFR 0.81 MG/DL (0.55-1.02); GLOMERULAR FILTRATION RATE > 60.0 (>51); GLUCOSE, FASTING 124 MG/DL (70-105); MAGNESIUM LEVEL 2.4 MG/DL (1.8-2.4); POTASSIUM SERUM 3.6 MEQ/L (3.5-5.1); SODIUM LEVEL 137 MEQ/L (136-145)
[2017-02-09 07:36] LABS: MEAN CORPUSCULAR HEMOGLOBIN 31.6 pg (27.0-33.0); MEAN CORPUSCULAR HGB CONC 33.7 g/dl (32.0-36.5); MEAN CORPUSCULAR VOLUME 93.8 fl (80.0-96.0); RED CELL DISTRIBUTION WIDTH 14.2 % (11.5-14.5); WHITE BLOOD COUNT 10.3 K/mm3 (4.0-10.0)
[2017-02-09 08:00] VITALS: BP 136/62
[2017-02-09] MEDS: HumaLOG INSULIN (NovoLOG) PER UNIT SC SCH ×4 (08:07→20:37)
[2017-02-09] MEDS: FLUTICASONE PROP 0.05% NASAL SPRAY 16 GM (FLONASE) SCH (08:14)
[2017-02-09] MEDS: LEVEMIR (INSULIN DETEMIR) 1 UNITS/0.01ML SC SCH (08:15)
[2017-02-09] MEDS: ASPIRIN 325 MG TAB PO SCH (08:15)
[2017-02-09] MEDS: MYCOPHENOLATE MOFETIL 250 MG CAP (J7517) PO SCH ×2 (08:16→20:46)
[2017-02-09] MEDS: TOPIRAMATE (TopAMAX) 25 MG TAB PO SCH (08:17)
[2017-02-09] MEDS: CitaloPRAM (CeleXA) 20 MG TAB PO SCH (08:17)
[2017-02-09] MEDS: SUCRALFATE SUSP 1GM/10ML UD PO SCH ×4 (08:17→20:45)
[2017-02-09] MEDS: CYANOCOBALAMIN 500 MCG TAB PO SCH (08:18)
[2017-02-09] MEDS: SENOKOT S TAB PO SCH ×2 (08:18→20:46)
[2017-02-09] MEDS: GABAPENTIN 300 MG CAP PO SCH ×3 (08:18→20:47)
[2017-02-09] MEDS: rOPINIRole 1MG TAB PO SCH ×2 (08:18→20:46)
[2017-02-09] MEDS: PYRIDOSTIGMINE 60 MG TAB PO SCH ×4 (08:18→20:47)
[2017-02-09] MEDS: MULTIVITAMINS/MINERALS THERAP 1 TAB PO SCH (08:19)
[2017-02-09] MEDS: guaiFENesin ER 600 MG TAB PO SCH ×2 (08:19→20:46)
[2017-02-09] MEDS: predniSONE 20 MG TAB PO SCH (08:19)
[2017-02-09] MEDS: FERROUS SULFATE 325MG TAB PO SCH ×2 (08:19→20:46)
[2017-02-09] MEDS: PANTOPRAZOLE 20 MG TAB PO SCH ×2 (09:30→20:47)
[2017-02-09 12:00] VITALS: BP 141/76
--- NOTE | 2017-02-09 13:42 | IPNPDOC ---
Date Seen The patient was seen on 02/09/17. Progress Note Hospitalist Progress Note Subjective: Patient states that her breathing is improved from yesterday Objective: Physical Exam: Vitals: Vital Sign - Last 24 Hours 02/08/17 02/08/17 02/09/17 02/09/17 20:00 20:00 00:00 04:00 Temp 98.3 98.3 97.6 Pulse 72 68 62 Resp 20 20 18 B/P (MAP) 140/65 (90) 145/65 (91) 141/72 (95) Pulse Ox 96 91 94 O2 Delivery Room Air Room Air NIPPV (BIPAP/CPAP) NIPPV (BIPAP/CPAP) 02/09/17 02/09/17 08:00 08:00 Temp 97.7 Pulse 75 Resp 18 B/P (MAP) 136/62 (86) Pulse Ox 96 O2 Delivery Room Air Room Air General: Awake, alert, no acute distress HEENT: Normocephalic, atraumatic, moist mucous membranes CV: Regular rate and rhythm, no murmurs rubs or gallops Lungs: Lungs are mostly clear with prolonged expiratory phase Abd: Soft, nontender, nondistended Extremities: Trace Edema in bilateral lower extremities Neuro: Alert and oriented 3, normal speech Psych: Normal mood and affect Labs and Imaging: Laboratory Tests 02/09/17 06:37 Red Blood Count 3.76 L, Mean Corpuscular Volume 93.8, Mean Corpuscular Hemoglobin 31.6, Mean Corpuscular Hemoglobin Concent 33.7, Red Cell Distribution Width 14.2, Calcium Level 9.2 Assessment and Plan: 56-year-old female with COPD, Parkinson's disease, RLS, diabetes mellitus type 2 , myasthenia gravis follows with Dr. Wilkinson, peripheral neuropathy, hyperlipidemia who presented with shortness of breath and cough. She is admitted with concern for potential pneumonia as well as COPD exacerbation. 1. HCAP: CTA of the chest shows concern for pneumonia versus possible neoplastic change with patchy bibasilar opacities, left worse than the right, as well as a new left lower lobe nodule. Dr. Chavez reviewed these images with Dr. Ambriz, who does not believe that this represents a nodule but that might more accurately represent secretions and bronchiectasis. Repeat CT with contrast shows improvement in the nodular and interstitial infiltrates. She will ultimately need repeat imaging and pulmonary follow up. There is some concern that potentially the patient was having chronic micro aspiration, however, she was evaluated by speech therapy who did not appreciate any aspiration. That being said, with her fluctuating past medical history from the myasthenia gravis and Parkinson's, we cannot completely rule out that she does not have episodes of aspiration. Sputum culture is growing only normal yari. The patient has been afebrile with a normal white count, and is currently on Zosyn and levaquin. We will change from zosyn to augmentin. 2. COPD exacerbation: Likely secondary to above pneumonia. Continue DuoNeb's, Pulmicort, Singulair, and Flonase. The patient is currently on prednisone, which we will continue and wean very slowly. Will need to follow-up with Dr. Duffy after discharge. 3. Myasthenia gravis: Continue Mestinon and cellcept 4. RLS: Continue home requip 5. Peripheral neuropathy: Continue home gabapentin 6. Diabetes mellitus type 2: Currently holding home metformin and repaglinide. Sliding scale insulin while in house. With the steroids, the patient's sugars have been very uncontrolled and she was started on Levemir, which we will increase given her SSI requirements. 7. Hyperlipidemia: Continue home statin. 8. Lactic acidosis: Potentially secondary to her increased work of breathing. We are currently holding her home metformin; now resolved. 9. GERD: Continue home H2 de, PPI and Carafate. DVT prophylaxis: SCDs Dispo: pending clinical improvement as we transition to oral antibiotics; potentially home tomorrow VS, I&O, 24H, Fishbone Vital Signs/I&O Vital Signs Date Time Temp Pulse Resp B/P (MAP) Pulse Ox O2 Delivery O2 Flow Rate FiO2 02/09/17 08:00 97.7 75 18 136/62 (86) 96 Room Air I&O- Last 24 Hours up to 6 AM 02/09/17 06:00 Intake Total 3480 ml Output Total 28772 ml Balance -7570 ml Laboratory Data 24H LABS Laboratory Tests 2 02/08/17 16:12: Lactic Acid Level 4.0*H 02/08/17 16:47: Bedside Glucose (Misc Panel) 356H 02/08/17 21:17: Bedside Glucose (Misc Panel) 242H 02/09/17 06:37: Lactic Acid Level 1.9, Anion Gap 10, Glomerular Filtration Rate > 60.0, Blood Urea Nitrogen 15, Creatinine 0.81, Sodium Level 137, Potassium Level 3.6, Chloride Level 101, Carbon Dioxide Level 26, Calcium Level 9.2, Magnesium Level 2.4 02/09/17 11:32: Bedside Glucose (Misc Panel) 369H CBC/BMP Laboratory Tests 02/09/17 06:37 Red Blood Count 3.76 L, Mean Corpuscular Volume 93.8, Mean Corpuscular Hemoglobin 31.6, Mean Corpuscular Hemoglobin Concent 33.7, Red Cell Distribution Width 14.2, Calcium Level 9.2 Microbiology Microbiology 02/05/17 Blood Culture - Preliminary, Resulted No Growth after 72 hours. All specime... 02/05/17 Blood Culture - Preliminary, Resulted No Growth after 72 hours. All specime... 02/06/17 Gram Stain - Final, Complete 02/06/17 Sputum Culture - Final, Complete 02/05/17 Respiratory Virus Panel (PCR) ([facility]) - Final, Complete 02/05/17 Gram Stain - Final, Complete 02/05/17 Sputum Culture - Final, Complete BERNARD RYAN Feb 09, 2017 13:42
[2017-02-09] MEDS: rOPINIRole 0.25 MG TAB(REQUIP) PO SCH (14:35)
[2017-02-09 16:00] VITALS: BP 137/68
[2017-02-09] MEDS: LevoFLOXacin 750 MG TABLET PO SCH (18:16)
[2017-02-09 20:00] VITALS: BP 123/67
[2017-02-09] MEDS: AUGMENTIN 875 MG TAB PO SCH (20:45)
[2017-02-09] MEDS: TOPIRAMATE (TopAMAX) 100 MG TAB PO SCH (20:46)
[2017-02-09] MEDS: ATORVASTATIN 20 MG TAB PO SCH (20:46)
[2017-02-09] MEDS: FAMOTIDINE 20 MG TAB PO SCH (20:46)
[2017-02-09] MEDS: MONTELUKAST 10 MG TAB PO SCH (20:47)
[2017-02-10] VITALS: BP 139/63
[2017-02-10] MEDS: IPRATROPIUM 0.5MG/ALBUTEROL 2.5MG INH SOL UD 3ML (DUONEB)(J7620) NEB SCH ×3 (00:20→11:14)
[2017-02-10 04:00] VITALS: BP 133/77
[2017-02-10 06:47] LABS: MEAN CORPUSCULAR HEMOGLOBIN 30.5 pg (27.0-33.0); MEAN CORPUSCULAR HGB CONC 32.9 g/dl (32.0-36.5); MEAN CORPUSCULAR VOLUME 92.9 fl (80.0-96.0); RED CELL DISTRIBUTION WIDTH 14.2 % (11.5-14.5); WHITE BLOOD COUNT 9.1 K/mm3 (4.0-10.0)
[2017-02-10 07:10] LABS: ANION GAP 12 MEQ/L (8-16); BLOOD UREA NITROGEN 18 MG/DL (7-18); CALCIUM LEVEL 8.9 MG/DL (8.5-10.1); CARBON DIOXIDE LEVEL 22 MEQ/L (21-32); CHLORIDE LEVEL 106 MEQ/L (98-107); CREATININE FOR GFR 0.71 MG/DL (0.55-1.02); GLOMERULAR FILTRATION RATE > 60.0 (>51); GLUCOSE, FASTING 139 MG/DL (70-105); MAGNESIUM LEVEL 2.2 MG/DL (1.8-2.4); POTASSIUM SERUM 3.5 MEQ/L (3.5-5.1); SODIUM LEVEL 140 MEQ/L (136-145)
[2017-02-10] MEDS: BUDESONIDE 0.5 MG/2 ML INHALATION SUSPENSION INH SCH (07:40)
[2017-02-10] MEDS: HumaLOG INSULIN (NovoLOG) PER UNIT SC SCH ×2 (07:50→12:23)
[2017-02-10 08:00] VITALS: BP 140/78
[2017-02-10] MEDS: SUCRALFATE SUSP 1GM/10ML UD PO SCH ×2 (09:26→12:22)
[2017-02-10] MEDS: guaiFENesin ER 600 MG TAB PO SCH (09:26)
[2017-02-10] MEDS: FERROUS SULFATE 325MG TAB PO SCH (09:26)
[2017-02-10] MEDS: ASPIRIN 325 MG TAB PO SCH (09:27)
[2017-02-10] MEDS: TOPIRAMATE (TopAMAX) 25 MG TAB PO SCH (09:27)
[2017-02-10] MEDS: PANTOPRAZOLE 20 MG TAB PO SCH (09:27)
[2017-02-10] MEDS: CitaloPRAM (CeleXA) 20 MG TAB PO SCH (09:27)
[2017-02-10] MEDS: GABAPENTIN 300 MG CAP PO SCH (09:27)
[2017-02-10] MEDS: MYCOPHENOLATE MOFETIL 250 MG CAP (J7517) PO SCH (09:28)
[2017-02-10] MEDS: CYANOCOBALAMIN 500 MCG TAB PO SCH (09:28)
[2017-02-10] MEDS: MULTIVITAMINS/MINERALS THERAP 1 TAB PO SCH (09:28)
[2017-02-10] MEDS: SENOKOT S TAB PO SCH (09:28)
[2017-02-10] MEDS: AUGMENTIN 875 MG TAB PO SCH (09:28)
[2017-02-10] MEDS: FLUTICASONE PROP 0.05% NASAL SPRAY 16 GM (FLONASE) SCH (09:29)
[2017-02-10] MEDS: predniSONE 20 MG TAB PO SCH (09:29)
[2017-02-10] MEDS: LEVEMIR (INSULIN DETEMIR) 1 UNITS/0.01ML SC SCH (09:30)
[2017-02-10] MEDS: PYRIDOSTIGMINE 60 MG TAB PO SCH ×2 (09:39→12:22)
[2017-02-10] MEDS: rOPINIRole 1MG TAB PO SCH (09:39)
[2017-02-10 12:00] VITALS: BP 146/71
[2017-02-10] MEDS ORDERED: PRED10TA2 PO (12:59)
[2017-02-10] MEDS ORDERED: LEVE1INJ5 SC (12:59)
[2017-02-10] MEDS ORDERED: MUCI600T31 PO (12:59)
[2017-02-10] MEDS ORDERED: LEVA750T7 PO (12:59)
[2017-02-10] MEDS ORDERED: BUDE0.5S6 INH (12:59)
[2017-02-10] MEDS ORDERED: AMOX875T2 PO (12:59)
--- NOTE | 2017-02-10 14:45 | DS.PDOC ---
Discharge Summary General Date of Admission Feb 05, 2017 at 17:05 Date of Discharge 02/10/2017 Discharge Summary DISCHARGE SUMMARY DATE OF ADMISSION: 02/05/2017 DATE OF DISCHARGE: 02/10/2017 PRIMARY CARE PHYSICIAN: Lindsay Chapman at [facility] DISCHARGE DIAGNOS(E)S: HCAP COPD exacerbation Lactic acidosis HPI & HOSPITAL COURSE: 56-year-old female with COPD, Parkinson's disease, RLS, diabetes mellitus type 2 , myasthenia gravis follows with Dr. Wilkinson, peripheral neuropathy, hyperlipidemia who presented with shortness of breath and cough. She is admitted with concern for potential pneumonia as well as COPD exacerbation. 1. HCAP: CTA of the chest shows concern for pneumonia versus possible neoplastic change with patchy bibasilar opacities, left worse than the right, as well as a new left lower lobe nodule. Dr. Chavez reviewed these images with Dr. Ambriz, who does not believe that this represents a nodule but that might more accurately represent secretions and bronchiectasis. Repeat CT with contrast shows improvement in the nodular and interstitial infiltrates. She will ultimately need repeat imaging and pulmonary follow up. There is some concern that potentially the patient was having chronic micro aspiration, however, she was evaluated by speech therapy who did not appreciate any aspiration. That being said, with her fluctuating past medical history from the myasthenia gravis and Parkinson's, we cannot completely rule out that she does not have episodes of aspiration. Sputum culture is growing only normal yari. The patient has been afebrile with a normal white count, and has now been transitioned to augmentin and levaquin. 2. COPD exacerbation: Likely secondary to above pneumonia. Continue DuoNeb's, Pulmicort, Singulair, and Flonase. The patient is currently on prednisone, which we will continue and wean very slowly. Will need to follow-up with Dr. Duffy after discharge. 3. Myasthenia gravis: Continue Mestinon and cellcept 4. RLS: Continue home requip 5. Peripheral neuropathy: Continue home gabapentin 6. Diabetes mellitus type 2: Currently holding home metformin and repaglinide but will resume at discharge. Sliding scale insulin while in house. With the steroids, the patient's sugars have been very uncontrolled and she was started on Levemir. We will send her home on levemir, as even without her oral medications, she has been requiring around 20units SSI daily. She has been instructed to keep a log of fingersticks and take to her PCP for further adjustment, especially as she begins weaning the steroids. 7. Hyperlipidemia: Continue home statin. 8. Lactic acidosis: Potentially secondary to her increased work of breathing. We are currently holding her home metformin; now resolved. Resume metformin at discharge. 9. GERD: Continue home H2 de, PPI and Carafate. DVT prophylaxis: SCDs PHYSICAL EXAMINATION ON DISCHARGE: VITAL SIGNS: Vital Signs Date Time Temp Pulse Resp B/P (MAP) Pulse Ox O2 Delivery O2 Flow Rate FiO2 02/10/17 12:00 98.1 73 20 146/71 (96) 94 Room Air General: Awake, alert, no acute distress HEENT: Normocephalic, atraumatic, moist mucous membranes CV: Regular rate and rhythm, no murmurs rubs or gallops Lungs: Lungs are mostly clear with prolonged expiratory phase Abd: Soft, nontender, nondistended Extremities: Trace Edema in bilateral lower extremities Neuro: Alert and oriented 3, normal speech Psych: Normal mood and affect DISPOSITION: Home DISCHARGE INSTRUCTIONS: PCP within one week; will need to bring fingerstick log for further insulin adjustment. Dr. Duffy within 2 weeks will need interval CT chest imaging to follow pulmonary changes. If symptoms return, or if you experience worsening of your symptoms, please call your doctor or return to the emergency department. ITEMS THAT NEED OUTPATIENT FOLLOWUP: Interval CT scan with supercharge repair supervisor to follow changes Adjustment of insulin dose by PCP, especially as the patient begins to wean her steroids Patient was seen and examined by me on the day of discharge, and I spent a total time of greater than 30 minutes on this discharge. Vital Signs/I&Os Vital Signs Date Time Temp Pulse Resp B/P (MAP) Pulse Ox O2 Delivery O2 Flow Rate FiO2 02/10/17 12:00 98.1 73 20 146/71 (96) 94 Room Air I&O- Last 24 Hours up to 6 AM 02/10/17 06:00 Intake Total 2450 ml Output Total 6000 ml Balance -3550 ml Laboratory Data Labs 24H Laboratory Tests 2 02/09/17 16:49: Bedside Glucose (Misc Panel) 301H 02/09/17 20:16: Bedside Glucose (Misc Panel) 202H 02/10/17 06:19: Anion Gap 12, Glomerular Filtration Rate > 60.0, Blood Urea Nitrogen 18, Creatinine 0.71, Sodium Level 140, Potassium Level 3.5, Chloride Level 106, Carbon Dioxide Level 22, Calcium Level 8.9, Magnesium Level 2.2 02/10/17 11:55: Bedside Glucose (Misc Panel) 268H CBC/BMP Laboratory Tests 02/10/17 06:19 Red Blood Count 3.87 L, Mean Corpuscular Volume 92.9, Mean Corpuscular Hemoglobin 30.5, Mean Corpuscular Hemoglobin Concent 32.9, Red Cell Distribution Width 14.2, Calcium Level 8.9 FSBS Laboratory Tests Test 02/09/17 16:49 02/09/17 20:16 02/10/17 11:55 Range/Units Bedside Glucose (Misc Panel) 301 202 268 70-105 MG/DL Microbiology Microbiology 02/05/17 Blood Culture - Final, Complete NO GROWTH AFTER 5 DAYS 02/05/17 Blood Culture - Final, Complete NO GROWTH AFTER 5 DAYS 02/06/17 Gram Stain - Final, Complete 02/06/17 Sputum Culture - Final, Complete 02/05/17 Respiratory Virus Panel (PCR) ([facility]) - Final, Complete 02/05/17 Gram Stain - Final, Complete 02/05/17 Sputum Culture - Final, Complete Discharge Medications Scheduled (Hizentra) 10 Gm/50 Ml Inj, 15 GM SC 1XWK, (Reported) SATURDAYS (Loratadine) 10 Mg Cap, 10 MG PO DAILY, (Reported) (Iron) 325 Mg Tab, 325 MG PO BID, (Reported) Albuterol/Ipratropium (Ipratropium Loomis/Albut 0.5-2.5 (3) mg/3Ml) 1 Marcello Marcello, 1 MARCELLO INH QID, (Reported) Amoxicillin/Clavulanate Potas (Amoxicillin/Clavulanate P 875-125 mg) 1 Tab Tab, 875 MG PO BID Aspirin (Aspirin) 325 Mg Tab, 325 MG PO DAILY, (Reported) Atorvastatin Calcium (Lipitor) 20 Mg Tab, 20 MG PO QHS, (Reported) Budesonide (Budesonide) 0.5 Mg/2 Ml Neb, 0.5 MG INH BID Citalopram Hydrobromide (Citalopram Hydrobromide) 40 Mg Tab, 40 MG PO DAILY, ( Reported) HAS NOT BEEN TAKING SINCE PT STARTED CIPRO Cyanocobalamin (Vitamin B12) 1,000 Mcg Tab, 1,000 MCG PO DAILY, (Reported) Enalapril Maleate (Enalapril Maleate) 2.5 Mg Tab, 2.5 MG PO DAILY, (Reported) Esomeprazole Magnesium Trihydr (Nexium) 20 Mg Cap, 20 MG PO BID, (Reported) Fluticasone Propionate (Fluticasone Propionate) 50 Mcg/Act Spr, 2 SPRAY NA DAILY , (Reported) Fluticasone/Vilanterol (Breo Ellipta 200-25 Mcg/INH) 1 Inh Inh, 2 PUFF INH DAILY , (Reported) Gabapentin (Gabapentin) 300 Mg Cap, 300 MG PO TID, (Reported) Guaifenesin (Mucinex) 600 Mg Tab, 600 MG PO BID Insulin Detemir (Levemir Flextouch) 100 Unit/Ml Inj, 15 UNIT SC DAILY Levofloxacin Hemihydrate (Levaquin) 750 Mg Tab, 750 MG PO DAILY@1800 Metformin Hydrochloride (Metformin HCl ER) 500 Mg Tab, 1,000 MG PO BID, ( Reported) Montelukast Sodium (Singulair) 10 Mg Tab, 10 MG PO QPM, (Reported) DINNER TIME Multivitamins *[facility] STOCKED* (Thera M Plus *[facility] STOCKED*) 1 Tab Tab, 1 TAB PO DAILY, (Reported) Mycophenolate Mofetil (Mycophenolate Mofetil) 250 Mg Cap, 1,000 MG PO BID, ( Reported) Prednisone (Prednisone) 10 Mg Tab, 10 MG PO TAPER Take 4 tabs daily x 3 days, then 3 tabs daily x 7 days, then 2 tabs daily x 7 days, then 1 tab daily x 7 days and stop Pyridostigmine Loomis (Pyridostigmine Loomis) 60 Mg Tab, 60 MG PO QID, ( Reported) Ranitidine Hcl (Zantac) 150 Mg Tab, 1 TAB PO QHS, (Reported) Repaglinide (Repaglinide) 2 Mg Tab, 2 MG PO BID, (Reported) TAKES AT NOON, AND QPM Sitagliptin Phosphate (Januvia) 100 Mg Tab, 100 MG PO DAILY, (Reported) Sucralfate (Sucralfate) 1 Gm/10 Ml Isaura, 1 GM PO QID, (Reported) Topiramate (Topiramate) 50 Mg Tab, 50 MG PO DAILY, (Reported) Topiramate (Topiramate) 100 Mg Tab, 100 MG PO QHS, (Reported) Vitamin D (Drisdol) 50,000 Unit Cap, 50,000 UNIT PO QWEEK, (Reported) WEDNESDAYS Scheduled PRN Albuterol Sulfate (Ventolin Hfa) 200 Puff/8 Gm Aers, 2 PUFF INH BID PRN for SOB/ WHEEZING, (Reported) Allergies Coded Allergies: Sulfa Antibiotics (Unverified Allergy, Unknown, 02/05/17) BERNARD RYAN Feb 10, 2017 14:45
[2017-02-10] MEDS ORDERED: ASMA110A INH (15:26)
[2017-02-10] MEDS ORDERED: TOUJ1.2I SC (15:26)
[2017-02-10] MEDS ORDERED: ASMA1AER2 INH (16:37)
== END 2017-02-10 13:50 | disposition home or self-care (01) | DRG 140 ==
LOC: M ED 11:17 → M ED INP 17:05 → M PCU 18:24 → M PED 02-06 20:44
PROVIDERS: ADMIT Internal Medicine; ATTEND Hospitalist
DX: J44.1 Chronic obstructive pulmonary disease with (acute) exacerbation (principal); J69.0 Pneumonitis due to inhalation of food and vomit; E87.2 Acidosis; G20 Parkinson's disease; G70.00 Myasthenia gravis without (acute) exacerbation; G60.9 Hereditary and idiopathic neuropathy, unspecified; G25.81 Restless legs syndrome; E11.9 Type 2 diabetes mellitus without complications; K21.9 Gastro-esophageal reflux disease without esophagitis; E78.5 Hyperlipidemia, unspecified; Z79.899 Other long term (current) drug therapy; Z79.82 Long term (current) use of aspirin; Z88.2 Allergy status to sulfonamides; E66.9 Obesity, unspecified; R91.1 Solitary pulmonary nodule; G47.33 Obstructive sleep apnea (adult) (pediatric); J44.0 Chronic obstructive pulmonary disease with (acute) lower respiratory infection

== ENCOUNTER → 2017-03-17 | Outpatient (CLI) | payer OTHER ==
[~2017-03-17] MED LIST: ALBU17IN INH; AMOX875T2 PO; ASMA110A INH; ASMA1AER2 INH; ASPI325T PO; ASPI81TA85 PO; BREO1INH3 INH; BUDE0.5S6 INH; CIPR-249 PO; CITA40TA4 PO; DITR5TAB PO; DRIS50002 PO; ENAL2.5T PO; FLUTISP; GABA-282 PO; HIZE20IN SC; IPRASOL4 INH; IRON1TAB PO; IRON65TA PO; JANU100T PO; LEVA750T7 PO; LEVE1INJ5 SC; LIPI20TA PO; LORA10CA PO; METF-699 PO; METF500T13 PO; MUCI600T31 PO; MYCO250C PO; NEXI20CA PO; PRED10TA2 PO; PYRI60TA2 PO; RANI15TA PO; REPA1TAB6 PO; SING10TA32 PO; SUCR1SUS PO; TOPI100T9 PO; TOPI50TA9 PO; TOUJ1.2I SC; VITA100072 PO; VITMTA PO
[2017-03-17 13:52] LABS: BASO # 0.1 K/mm3 (0.0-0.2); BASO % 0.7 % (0.0-1.0); EOS # 0.4 K/mm3 (0.0-0.50); EOS % 4.5 % (0.0-3.0); LYMPH # 1.4 K/mm3 (1.5-4.5); LYMPH % 15.6 % (24.0-44.0); MEAN CORPUSCULAR HEMOGLOBIN 30.8 pg (27.0-33.0); MEAN CORPUSCULAR VOLUME 96.2 fl (80.0-96.0); MONO # 0.5 K/mm3 (0.0-0.8); MONO % 5.3 % (0.0-5.0); NEUTROPHILS # 6.2 K/mm3 (1.8-7.7); NEUTROPHILS % 71.7 % (36.0-66.0); WHITE BLOOD COUNT 8.7 K/mm3 (4.0-10.0)
[2017-03-17 14:07] LABS: ALBUMIN 3.4 GM/DL (3.2-5.2); ALBUMIN/GLOBULIN RATIO 0.94 (1.00-1.93); ALKALINE PHOSPHATASE 68 U/L (45-117); ALT/SGPT 35 U/L (12-78); ANION GAP 11 MEQ/L (8-16); AST/SGOT 26 U/L (15-37); BILIRUBIN,TOTAL 0.2 MG/DL (0.2-1.0); BLOOD UREA NITROGEN 7 MG/DL (7-18); CARBON DIOXIDE LEVEL 23 MEQ/L (21-32); CHLORIDE LEVEL 111 MEQ/L (98-107); CREATININE FOR GFR 0.93 MG/DL (0.55-1.02); GLOMERULAR FILTRATION RATE > 60.0 (>51); GLUCOSE, FASTING 239 MG/DL (70-105); IMMUNOGLOBULIN G 827 MG/DL (681-1648); POTASSIUM SERUM 4.1 MEQ/L (3.5-5.1); SODIUM LEVEL 145 MEQ/L (136-145)
== END ==
LOC: M SMT 10:28
PROVIDERS: ATTEND Allergy & Immunology Allergy
DX: D83.9 Common variable immunodeficiency, unspecified (principal)

== ENCOUNTER → 2017-05-26 | Outpatient (CLI) | payer OTHER ==
--- NOTE | 2017-05-27 08:49 | REP ---
MAXILLOFACIAL CT WITHOUT CONTRAST: HISTORY: Chronic sinusitis. Mucosal thickening is present in the sinuses. There is almost complete opacification of the maxillary sinuses. Mild mucosal thickening is present in the left frontal and right sphenoid sinuses. Minimal mucosal thickening is present in the ethmoid, right frontal and left sphenoid sinuses. Mucosal thickening involves the ostiomeatal units. The middle and inferior nasal turbinates are partially paradoxical. There is minimal deviation of the nasal septum to the left superiorly and to the right inferiorly. A spur is present arising from the right side of the nasal septum. The cribriform plate, medial ordoñez of the orbits and optic canals are intact. The carotid canals form a segment of the posterolateral ordoñez of the sphenoid sinus. The sphenoid sinus septa insert into the internal carotid canal ordoñez. IMPRESSION: Sinus mucosal thickening as described above. Signed by Eliu Jacobs MD 05/27/2017 08:55 A
== END ==
LOC: M RAD 17:49
PROVIDERS: ATTEND Physician Assistant Medical
DX: J32.4 Chronic pansinusitis (principal)

== ENCOUNTER → 2017-10-05 | Outpatient (REF) | payer OTHER ==
[2017-10-05 19:23] LABS: ALBUMIN 3.6 GM/DL (3.2-5.2); ALBUMIN/GLOBULIN RATIO 0.97 (1.00-1.93); ALKALINE PHOSPHATASE 90 U/L (45-117); ALT/SGPT 20 U/L (12-78); ANION GAP 8 MEQ/L (8-16); AST/SGOT 10 U/L (7-37); BILIRUBIN,TOTAL 0.4 MG/DL (0.2-1.0); BLOOD UREA NITROGEN 19 MG/DL (7-18); CALCIUM LEVEL 8.9 MG/DL (8.5-10.1); CARBON DIOXIDE LEVEL 24 MEQ/L (21-32); CHLORIDE LEVEL 107 MEQ/L (98-107); GLOMERULAR FILTRATION RATE > 60.0 (>51); GLUCOSE, FASTING 317 MG/DL (70-100); POTASSIUM SERUM 3.8 MEQ/L (3.5-5.1); SODIUM LEVEL 139 MEQ/L (136-145); TOTAL PROTEIN 7.3 GM/DL (6.4-8.2)
[2017-10-05 19:30] LABS: BASO # 0.1 10^3/uL (0.0-0.2); BASO % 0.6 % (0.0-1.0); EOS # 0.2 10^3/uL (0.0-0.50); EOS % 1.8 % (0.0-3.0); HEMATOCRIT 42.5 % (36.0-47.0); HEMOGLOBIN 13.5 g/dl (12.0-16.0); IMMATURE GRANULOCYTE % 1.5 % (0-3.0); LYMPH # 3.6 10^3/uL (1.5-4.5); LYMPH % 28.6 % (24.0-44.0); MEAN CORPUSCULAR HEMOGLOBIN 29.7 pg (27.0-33.0); MEAN CORPUSCULAR HGB CONC 31.8 g/dl (32.0-36.5); MEAN CORPUSCULAR VOLUME 93.4 fl (80.0-96.0); MONO # 0.8 10^3/uL (0.0-0.8); NEUTROPHILS # 7.7 10^3/uL (1.8-7.7); NEUTROPHILS % 61.5 % (36.0-66.0); PLATELET COUNT, AUTOMATED 259 10^3/uL (150-450); RED BLOOD COUNT 4.55 10^6/uL (4.00-5.40); RED CELL DISTRIBUTION WIDTH 13.2 % (11.5-14.5); WHITE BLOOD COUNT 12.6 10^3/uL (4.0-10.0)
[2017-10-05 20:07] LABS: POS COUNT POS FLAG
== END ==
LOC: M LABNEURO 12:17
DX: G70.01 Myasthenia gravis with (acute) exacerbation (principal)
CPT/HCPCS: 36415

== ENCOUNTER → 2017-10-21 | Outpatient (CLI) | payer OTHER ==
[2017-10-21 17:58] LABS: IMMUNOGLOBULIN G 932 MG/DL (681-1648)
== END ==
LOC: M SMT 12:23
DX: D83.9 Common variable immunodeficiency, unspecified (principal); K21.9 Gastro-esophageal reflux disease without esophagitis; J45.40 Moderate persistent asthma, uncomplicated; G70.00 Myasthenia gravis without (acute) exacerbation
CPT/HCPCS: 82784

== ENCOUNTER → 2018-02-28 | Outpatient (CLI) | payer OTHER ==
[2018-02-28 12:09] LABS: BASO # 0.1 10^3/uL (0.0-0.2); BASO % 0.6 % (0.0-1.0); EOS # 0.1 10^3/uL (0.0-0.50); EOS % 1.1 % (0.0-3.0); HEMATOCRIT 38.9 % (36.0-47.0); HEMOGLOBIN 12.7 g/dl (12.0-15.5); IMMATURE GRANULOCYTE % 0.7 % (0-3.0); LYMPH # 2.5 10^3/uL (1.5-4.5); LYMPH % 29.5 % (24.0-44.0); MEAN CORPUSCULAR HEMOGLOBIN 30.4 pg (27.0-33.0); MEAN CORPUSCULAR HGB CONC 32.6 g/dl (32.0-36.5); MEAN CORPUSCULAR VOLUME 93.1 fl (80.0-96.0); MONO # 0.6 10^3/uL (0.0-0.8); MONO % 7.2 % (0.0-5.0); NEUTROPHILS # 5.1 10^3/uL (1.8-7.7); NEUTROPHILS % 60.9 % (36.0-66.0); PLATELET COUNT, AUTOMATED 318 10^3/uL (150-450); RED BLOOD COUNT 4.18 10^6/uL (4.00-5.40); RED CELL DISTRIBUTION WIDTH 12.9 % (11.5-14.5); WHITE BLOOD COUNT 8.4 10^3/uL (4.0-10.0)
[2018-02-28 12:27] LABS: ALBUMIN 3.4 GM/DL (3.2-5.2); ALBUMIN/GLOBULIN RATIO 0.89 (1.00-1.93); ALKALINE PHOSPHATASE 98 U/L (45-117); ALT/SGPT 21 U/L (12-78); ANION GAP 10 MEQ/L (8-16); AST/SGOT 12 U/L (7-37); BILIRUBIN,TOTAL 0.4 MG/DL (0.2-1.0); BLOOD UREA NITROGEN 13 MG/DL (7-18); CALCIUM LEVEL 9.5 MG/DL (8.5-10.1); CARBON DIOXIDE LEVEL 26 MEQ/L (21-32); CHLORIDE LEVEL 104 MEQ/L (98-107); CREATININE FOR GFR 1.03 MG/DL (0.55-1.30); GLOMERULAR FILTRATION RATE 58.6 (>51); GLUCOSE, FASTING 338 MG/DL (70-100); POTASSIUM SERUM 4.5 MEQ/L (3.5-5.1); SODIUM LEVEL 140 MEQ/L (136-145); TOTAL PROTEIN 7.2 GM/DL (6.4-8.2)
== END ==
LOC: M WUC 10:02
DX: G70.00 Myasthenia gravis without (acute) exacerbation (principal)
CPT/HCPCS: 80053

== ENCOUNTER 2018-03-09 08:43 | Day surgery (SDC) | payer OTHER ==
[2018-03-09] MEDS ORDERED: ROCURONIUM BROMIDE 50 MG/5 ML VIAL As Ordered (09:13)
[2018-03-09] MEDS ORDERED: MIDAZOLAM INJ 2 MG/2 ML VIAL (J2250) As Ordered (09:13)
[2018-03-09] MEDS ORDERED: LIDOCAINE 2% INJ 100 MG/5 ML SDV (FOR ANES.) As Ordered (09:13)
[2018-03-09] MEDS ORDERED: NEOSTIGMINE 10 MG/10 ML VIAL (J2710) As Ordered (09:13)
[2018-03-09] MEDS ORDERED: ONDANSETRON 4MG/2ML VIAL (J2405) As Ordered (09:13)
[2018-03-09] MEDS ORDERED: GLYCOPYRROLATE INJ 0.2 MG/ML 2 ML VIAL As Ordered (09:13)
[2018-03-09] MEDS ORDERED: dexameTHASONE 4 MG/ML 1ML VIAL (J1100) As Ordered (09:13)
[2018-03-09] MEDS ORDERED: PROPOFOL 200 MG/20 ML VIAL As Ordered (09:13)
[2018-03-09] MEDS ORDERED: fentaNYL 100 MCG/2 ML INJECTION (J3010) As Ordered (09:13)
[2018-03-09] MEDS: EPINEPHrine INJ 1 MG/ML 1ML AMP As Ordered (09:48)
[2018-03-09] MEDS ORDERED: SODIUM CHLORIDE 0.9% NASAL GEL 15GM (AYR) As Ordered (09:52)
[2018-03-09 10:10] LABS: BEDSIDE GLUCOSE 309 MG/DL (70-105)
[2018-03-09] MEDS ORDERED: HumaLOG INSULIN (NovoLOG) PER UNIT As Ordered (10:15)
[2018-03-09] MEDS: HumaLOG INSULIN (NovoLOG) PER UNIT SC ×3 (10:19→14:38)
[2018-03-09] MEDS ORDERED: HYDROmorphone HCL 2 MG/ML 1ML VIAL (J1170) As Ordered (10:51)
[2018-03-09] MEDS: METHYLENE BLUE 0.5% (5MG/ML) 10 ML AMP (PROVAYBLUE)(Q9968 PER 1MG) As Ordered (11:05)
[2018-03-09] MEDS: EPINEPHrine 1MG/ML INJ 30ML MD-VIAL As Ordered (11:06)
[2018-03-09] MEDS: LIDOCAINE W/EPINEPHRINE 1% 20ML VIAL As Ordered (12:30)
[2018-03-09 13:47] LABS: BEDSIDE GLUCOSE 259 MG/DL (70-105)
[2018-03-09] MEDS ORDERED: ONDANSETRON 4MG/2ML VIAL (J2405) IV (14:00)
[2018-03-09] MEDS ORDERED: PERCOCET 5MG/325MG TAB PO (14:00)
[2018-03-09] MEDS ORDERED: LR 1,000 ML IV (14:00)
[2018-03-09] MEDS ORDERED: HYDROMORPHONE HCL 0.5 MG/ 0.5 ML SYRINGE (J1170 PER 1) IV (14:00)
[2018-03-09 14:32] LABS: BEDSIDE GLUCOSE 306 MG/DL (70-105)
[2018-03-09 14:34] LABS: BEDSIDE GLUCOSE 298 MG/DL (70-105)
[2018-03-09] MEDS ORDERED: ALBUTEROL SULFATE 2.5 MG/0.5 ML INH NEB SOLN As Ordered (14:36)
[2018-03-09] MEDS: ALBUTEROL SULFATE 2.5 MG/0.5 ML INH NEB SOLN INH (14:37)
[2018-03-09 15:09] LABS: BEDSIDE GLUCOSE 293 MG/DL (70-105)
[2018-03-09] MEDS ORDERED: FUROSEMIDE 20 MG/2 ML VIAL (J1940) As Ordered (15:11)
[2018-03-09] MEDS: FUROSEMIDE 20 MG/2 ML VIAL (J1940) IV (15:15)
[2018-03-09] MEDS ORDERED: PYRIDOSTIGMINE 60 MG TAB PO (15:45)
[2018-03-09 16:44] LABS: BEDSIDE GLUCOSE 332 MG/DL (70-105)
[2018-03-09 17:52] LABS: BEDSIDE GLUCOSE 316 MG/DL (70-105)
== END 2018-03-09 18:35 | disposition home or self-care (01) ==
LOC: M SDC 18:35
DX: J32.0 Chronic maxillary sinusitis (principal); J32.2 Chronic ethmoidal sinusitis; J34.2 Deviated nasal septum; J32.4 Chronic pansinusitis; J45.50 Severe persistent asthma, uncomplicated; D83.9 Common variable immunodeficiency, unspecified; E11.40 Type 2 diabetes mellitus with diabetic neuropathy, unspecified; K21.0 Gastro-esophageal reflux disease with esophagitis; G70.00 Myasthenia gravis without (acute) exacerbation; F32.9 Major depressive disorder, single episode, unspecified; F31.9 Bipolar disorder, unspecified; D64.9 Anemia, unspecified; J44.9 Chronic obstructive pulmonary disease, unspecified; G47.33 Obstructive sleep apnea (adult) (pediatric); E78.00 Pure hypercholesterolemia, unspecified; K44.9 Diaphragmatic hernia without obstruction or gangrene; K31.84 Gastroparesis; R06.83 Snoring; R06.02 Shortness of breath; R29.898 Other symptoms and signs involving the musculoskeletal system; D84.9 Immunodeficiency, unspecified; E66.9 Obesity, unspecified; Z68.42 Body mass index [BMI] 45.0-49.9, adult; Z88.2 Allergy status to sulfonamides; Z88.8 Allergy status to other drugs, medicaments and biological substances; Z79.899 Other long term (current) drug therapy; Z79.82 Long term (current) use of aspirin; Z79.4 Long term (current) use of insulin; Z86.73 Personal history of transient ischemic attack (TIA), and cerebral infarction without residual deficits; Z90.710 Acquired absence of both cervix and uterus; Z78.0 Asymptomatic menopausal state; Z87.01 Personal history of pneumonia (recurrent)
CPT/HCPCS: 30520

== ENCOUNTER → 2018-09-27 | Outpatient (CLI) | payer OTHER ==
[~2018-09-27] MED LIST changes: +AZEL0.055 NARES; +CELL500T PO; -DRIS50002 PO; +DRIS50003 PO; -GABA-282 PO; +GABA-843 PO; +HUMA100I3 SC; +IPRA0.00 IN; +IPRA0.00 INH; -IPRASOL4 INH; +MEST60TA PO; +NEXI20TA PO; +PULM0.5S INH; +ROPI0.5T PO; +ROPI1TAB PO; +VITA1CAP2 PO
== END ==
LOC: M SMT 15:27
PROVIDERS: ATTEND Allergy & Immunology Allergy
DX: J30.9 Allergic rhinitis, unspecified (principal)

== ENCOUNTER → 2019-02-15 | Outpatient (CLI) | payer OTHER ==
[~2019-02-15] MED LIST changes: +ASPI-1 PO; -ASPI325T PO; +VITA-183 PO; +VITA100018 PO; -VITA100072 PO; -VITA1CAP2 PO
--- NOTE | 2019-02-16 01:46 | REP ---
Clinical: Dyspnea . Comparison: 02/05/2017 . Technique: PA and lateral. Findings: The mediastinum and cardiac silhouette are normal. Mild left basilar fibroatelectatic changes noted. No focal consolidation. No effusion. No pneumothorax. Skeletal structures are intact. Impression: 1. Minimal left basilar fibroatelectatic change. Electronically Signed by Adeel Bowens MD 02/16/2019 01:38 A
== END ==
LOC: M SMT 14:48
PROVIDERS: ATTEND Nurse Practitioner Family
DX: R91.8 Other nonspecific abnormal finding of lung field (principal); R06.00 Dyspnea, unspecified

== ENCOUNTER 2019-03-26 15:17 | Inpatient (IN) | payer OTHER ==
[~2019-03-26] VITALS: Ht 160 cm; Wt 112.7 kg
[~2019-03-26 15:17] MED LIST changes: -IPRA0.00 IN
[2019-03-26] MEDS ORDERED: ADME100I2 SC (15:52)
[2019-03-26] MEDS ORDERED: ASPI81TA85 PO (15:52)
[2019-03-26] MEDS ORDERED: BASA100I SC (15:52)
[2019-03-26] MEDS ORDERED: LEVO500T3 PO (16:06)
[2019-03-26 16:19] LABS: BASO # 0.1 10^3/uL (0.0-0.2); BASO % 0.5 % (0.0-1.0); EOS # 0.1 10^3/uL (0.0-0.5); EOS % 0.4 % (0.0-3.0); HEMATOCRIT 38.5 % (36.0-47.0); HEMOGLOBIN 12.3 g/dl (12.0-15.5); LYMPH % 8.3 % (24.0-44.0); MEAN CORPUSCULAR HEMOGLOBIN 30.5 pg (27.0-33.0); MEAN CORPUSCULAR HGB CONC 31.9 g/dl (32.0-36.5); MEAN CORPUSCULAR VOLUME 95.5 fl (80.0-96.0); MONO # 0.7 10^3/uL (0.0-0.8); MONO % 5.7 % (0.0-5.0); NEUTROPHILS # 9.4 10^3/uL (1.5-8.5); PLATELET COUNT, AUTOMATED 271 10^3/uL (150-450); RED BLOOD COUNT 4.03 10^6/uL (4.00-5.40); WHITE BLOOD COUNT 11.5 10^3/uL (4.0-10.0)
[2019-03-26] MEDS ORDERED: BUDE0.5S6 NEB (16:28)
[2019-03-26] MEDS ORDERED: ESOM1CAP5 PO (16:28)
[2019-03-26] MEDS ORDERED: FERR1TAB8 PO (16:34)
[2019-03-26] MEDS ORDERED: LORA-674 PO (16:34)
[2019-03-26] MEDS ORDERED: VENTAER INH (16:36)
[2019-03-26 16:40] LABS: BLOOD UREA NITROGEN 15 MG/DL (7-18); CALCIUM LEVEL 8.6 MG/DL (8.5-10.1); CARBON DIOXIDE LEVEL 21 MEQ/L (21-32); CHLORIDE LEVEL 103 MEQ/L (98-107); CREATININE FOR GFR 1.21 MG/DL (0.55-1.30); GLOMERULAR FILTRATION RATE 48.5 (>51); GLUCOSE, FASTING 202 MG/DL (70-100); POTASSIUM SERUM 4.3 MEQ/L (3.5-5.1); SODIUM LEVEL 135 MEQ/L (136-145)
[2019-03-26] MEDS ORDERED: INCR1INH INH (17:09)
[2019-03-26 17:12] LABS: CK-MB VALUE MASS < 1.0 NG/ML (<3.6); CPK CREATINE PHOSPHOKINASE 54 U/L (26-192); MB/CK RELATIVE INDEX 1.85 (< OR =4); MYOGLOBIN 42 NG/ML (13-71); TROPONIN I < 0.02 NG/ML (< 0.10)
--- NOTE | 2019-03-26 17:15 | REP ---
Portable chest, 04:56 p.m., single AP view with the patient sitting: Comparison is the PA and lateral chest dated 02/15/2019. There is minor atelectasis in the left costophrenic angle. Lung miller otherwise clear. Cardiac size is normal. There are bilateral epicardial fat pads. The mike, mediastinum, and skeletal structures are unremarkable. Impression: Minor atelectasis in the left costophrenic angle. Electronically Signed by Ariel Sosa MD 03/26/2019 05:06 P
[2019-03-26 17:46] LABS: INR 0.95; PARTIAL THROMBOPLASTIN TIME 23.9 SECONDS (25.0-38.4); PROTHROMBIN TIME 12.4 SECONDS (11.8-14.0)
[2019-03-26] MEDS ORDERED: IPRATROPIUM 0.5MG/ALBUTEROL 2.5MG INH SOL UD 3ML (DUONEB)(J7620) NEB ONE (18:00)
[2019-03-26] MEDS ORDERED: ALBUTEROL SULFATE 2.5 MG/0.5 ML INH NEB SOLN INH ONE (18:00)
[2019-03-26] MEDS ORDERED: dexameTHASONE 20 MG/5 ML VIAL (J1100) IV ONE (18:00)
[2019-03-26 19:11] LABS: NT-PRO BNP 111 PG/ML (<125)
[2019-03-26] MEDS ORDERED: MOM 30ML SUSPENSION UDC PO PRN (20:00)
[2019-03-26] MEDS ORDERED: ACETAMINOPHEN TAB 650MG DOSE (2X325MG) PO PRN (20:00)
[2019-03-26] MEDS ORDERED: IPRATROPIUM 0.5MG/ALBUTEROL 2.5MG INH SOL UD 3ML (DUONEB)(J7620) NEB PRN ×2 (20:00→22:30)
[2019-03-26] MEDS: DOCUSATE SODIUM 100 MG CAP PO SCH (20:33)
[2019-03-26] MEDS: predniSONE 20 MG TAB PO SCH (20:33)
[2019-03-26] MEDS: CEFEPIME HCL 1 GM in D5W 50 ML IV SCH (20:41)
[2019-03-26] MEDS: NS 1,000 ML IV SCH (20:41)
[2019-03-26] MEDS: HEPARIN SOD (PORCINE) 5000 UNITS/ML VIAL SC SCH (20:44)
[2019-03-26] MEDS ORDERED: PILL CUTTER 1 EACH XX PRN (21:00)
[2019-03-26] MEDS: FERROUS SULFATE 325MG TAB PO SCH (21:06)
[2019-03-26] MEDS: TOPIRAMATE (TopAMAX) 100 MG TAB PO SCH (21:06)
[2019-03-26] MEDS: ATORVASTATIN 20 MG TAB PO SCH (21:06)
[2019-03-26] MEDS: FAMOTIDINE 20 MG TAB PO SCH (21:06)
[2019-03-26] MEDS: MONTELUKAST 10 MG TAB PO SCH (21:06)
[2019-03-26] MEDS: GABAPENTIN 300 MG CAP PO SCH (21:06)
[2019-03-26] MEDS: LEVEMIR (INSULIN DETEMIR) 1 UNITS/0.01ML SC SCH (21:07)
[2019-03-26] MEDS: HumaLOG INSULIN (NovoLOG) PER UNIT SC SCH (21:07)
[2019-03-26 21:36] LABS: HEMOGLOBIN A1c 7.6 %
[2019-03-26 22:55] VITALS: BP 90/62
--- NOTE | 2019-03-26 23:24 | REPVR ---
EXAM: CT Chest Without Contrast EXAM DATE/TIME: 03/26/2019 10:46 PM CLINICAL HISTORY: 58 years old, female; Shortness of breath; Additional info: SOB TECHNIQUE: Imaging protocol: Computed tomography of the chest without contrast. 3D rendering: MIP reconstructed images were created and reviewed. Radiation optimization: All CT scans at this facility use at least one of these dose optimization techniques: automated exposure control; mA and/or kV adjustment per patient size (includes targeted exams where dose is matched to clinical indication); or iterative reconstruction. COMPARISON: CT Chest with contrast 02/08/2017 9:30 AM FINDINGS: Lungs: Bronchiectasis in the left lower lobe and to lesser degree the right lower lobe. Several small foci of patchy parenchymal infiltration demonstrated in the posterior segment of the right upper lobe and left lower lobe. Findings may represent multifocal pneumonitis. Small cystic foci demonstrated in the subpleural aspect of the posterior segment of the left upper lobe associated with a few small nodular densities. Findings consistent with foci of peripheral airway disease. Few small scattered foci of tree in bud infiltrates are demonstrated in the subpleural lung zones bilaterally consistent with alveolitis/terminal bronchiolitis. Pleural space: Unremarkable. No pneumothorax. No pleural effusion. Heart: Unremarkable. No cardiomegaly. No pericardial effusion. Aorta: Unremarkable. No aortic aneurysm. Lymph nodes: Small mediastinal lymph nodes likely postinflammatory. Bones/joints: No acute fracture. Degenerative spondylosis. Soft tissues: Unremarkable. Gallbladder and bile ducts: There has been a cholecystectomy. IMPRESSION: 1. Bronchiectasis in the left lower lobe and to lesser degree the right lower lobe. 2. Several small foci of patchy parenchymal infiltration demonstrated in the posterior segment of the right upper lobe and left lower lobe. Findings may represent multifocal pneumonitis. 3. Small cystic foci demonstrated in the subpleural aspect of the posterior segment of the left upper lobe associated with a few small nodular densities. Findings consistent with foci of peripheral airway disease. 4. Few small scattered foci of 'tree in bud' infiltrates are demonstrated in the subpleural lung zones bilaterally consistent with alveolitis/terminal bronchiolitis. The spine demonstrates mild degenerative changes. 5. There has been a cholecystectomy. Electronically signed by: Karri Hernandez On 03/26/2019 23:24:31 PM
[2019-03-26] MEDS: MYCOPHENOLATE MOFETIL 250 MG CAP (J7517) PO SCH (23:25)
[2019-03-26] MEDS: rOPINIRole 1MG TAB PO SCH (23:25)
[2019-03-26] MEDS: PYRIDOSTIGMINE 60 MG TAB PO SCH (23:25)
--- NOTE | 2019-03-26 23:34 | HPEPDOC ---
General Date of Admission 03/26/19 Date of Service: Mar 26, 2019 Attending Physician: ELIAS SANZ DO Chief Complaint The patient is a 58-year-old female admitted with a reason for visit of SOB. Source: Patient, RN/MD, RN notes reviewed Exam Limitations: No limitations Timing/Duration: Day(s) (>4) Severity: Moderate Associated Symptoms: Cough, Headaches, Shortness of breath, Weakness History of Present Illness 58-year-old female arrives at [facility] ED with complaints of shortness of breath, headaches, and cough that started approximately 3-4 days ago when she went to another emergency room for the same symptoms. She then reports she went to her revit drafter were she received levofloxacin antibiotic 500 mg 1 tablet a day plus steroids taking both medications for 3 days without any improvement. Patient reports her shortness of breath became worse today and she knew she had to come into the emergency room as she he could not take a deep breath, was taking her Pulmicort 2 times a day and DuoNeb 4 times a day without relief. She denies having body aches, chills, fever, diarrhea, nausea and vomiting. She has a significant medical history of atrial fibrillation, anxiety and depression, osteoporosis, myasthenia gravis, GERD, restless leg syndrome, essential hypertension, COPD on CPAP at 9 at home with continuous oxygen 2 L per nasal cannula continuous, TIA with right-sided weakness, diabetes mellitus type 2, insulin-dependent, Vitamin D deficiency. She also reports that she had testing done at [facility] where they diagnosed her with having aspiration on liquids and she had another test in [place], which is also diagnosed with aspi ration and then she reports another physicians that she didn't have aspiration. Also patient is having aspiration pneumonia. She reports she has had pneumonia approximately up to 6 times in the last 12 months. Due to patient's comorbidities, marked shortness of breath, and results from CT chest her admission status will change from observation to inpatient with IV antibiotics, cefepime 1 g IV every 12 hours as she felled outpatient oral treatment with antibiotic levofloxacin and steroids. She'll be admitted to Med-Surg under hospitalist services. Home Medications Scheduled Aspirin (Aspir 81) 81 Mg Tablet.dr, 81 MG PO DAILY, (Reported) Atorvastatin Calcium (Lipitor) 20 Mg Tab, 40 MG PO QHS, (Reported) Azelastine HCl (Azelastine HCl) 0.15 % Spr, 2 SPRAY NARES DAILY, (Reported) Budesonide (Budesonide) 0.5 Mg/2 Ml Ampul.neb, 1 VIAL NEB BID, (Reported) Cholecalciferol (Vitamin D3) (Vitamin D3) 1,000 Unit Cap, 1,000 UNIT PO DAILY, (Reported) Citalopram Hydrobromide (Citalopram HBr) 40 Mg Tab, 40 MG PO DAILY, (Reported) Cyanocobalamin (Vitamin B-12) (Vitamin B-12) 1,000 Mcg Tab, 1,000 MCG PO DAILY, (Reported) Enalapril Maleate (Enalapril Maleate) 2.5 Mg Tab, 2.5 MG PO DAILY, (Reported) Ergocalciferol (Vitamin D2) (Drisdol) 50,000 Unit Cap, 50,000 UNIT PO QWEEK, (Reported) WEDNESDAYS Esomeprazole Magnesium (Esomeprazole Magnesium) 40 Mg Capsule.dr, 40 MG PO BID, (Reported) Ferrous Sulfate (Ferrous Sulfate) 325 Mg Tablet, 325 MG PO BID, (Reported) Fluticasone/Vilanterol (Breo Ellipta 200-25 Mcg INH) 1 Inh Inh, 1 PUFF INH DAILY, (Reported) Gabapentin (Gabapentin) 300 Mg Cap, 300 MG PO TID, (Reported) Immun Glob G(IgG)/Pro/Iga 0-50 (Hizentra 10 Gram/50 ml Vial) 10 Gm/50 Ml Inj, 20 GM SC 1XWK, (Reported) SATURDAYS Insulin Glargine,Hum.rec.anlog (Basaglar Kwikpen U-100) 100 Unit/1 Ml Insuln.pen, 60 UNIT SC QHS, (Reported) Insulin Lispro (Admelog Solostar) 100 Unit/1 Ml Insuln.pen, 1 DOSE SC ACHS, (Reported) PER SLIDING SCALE Levofloxacin (Levofloxacin) 500 Mg Tablet, 500 MG PO DAILY, (Reported) FILLED 03/23 FOR 7 DAYS Loratadine (Loratadine) 10 Mg Tablet, 10 MG PO DAILY, (Reported) Montelukast Sodium (Singulair) 10 Mg Tab, 10 MG PO QPM, (Reported) DINNER TIME Multivitamins (Thera M Plus Tablet) 1 Tab Tab, 1 TAB PO DAILY, (Reported) Mycophenolate Mofetil (Cellcept) 500 Mg Tab, 1,000 MG PO BID, (Reported) Pyridostigmine Yeoman (Mestinon) 60 Mg Tab, 60 MG PO QID, (Reported) Ranitidine Hcl (Ranitidine HCl) 150 Mg Tab, 2 TAB PO QHS, (Reported) Ropinirole HCl (Ropinirole HCl) 1 Mg Tab, 1 MG PO BID, (Reported) TAKES AM/HS Ropinirole HCl (Ropinirole HCl) 0.5 Mg Tab, 0.5 MG PO DAILY, (Reported) TAKES AT 1200 Topiramate (Topiramate) 50 Mg Tab, 100 MG PO BID, (Reported) Umeclidinium Yeoman (Incruse Ellipta) 62.5 Mcg Blst.w.dev, 1 PUFF INH DAILY, (Reported) Scheduled PRN Albuterol Sulfate (Ventolin Hfa) 18 Gm Hfa.aer.ad, 2 PUFF INH Q4H PRN for SHORTNESS OF BREATH, (Reported) Ipratropium/Albuterol Sulfate (Iprat-Albut 0.5-3(2.5) mg/3 ml) 1 Valerie Valerie, 1 NEB INH QID PRN for SHORTNESS OF BREATH, (Reported) Allergies Coded Allergies: metformin (Verified Allergy, Severe, ANAPHALAXIS, 03/26/19) Sulfa (Sulfonamide Antibiotics) (Verified Allergy, Intermediate, HIVES, 03/26/19) fluoxetine (Verified Allergy, Unknown, 03/26/19) niacin (Verified Allergy, Unknown, 03/26/19) metoclopramide (Verified Adverse Reaction, Intermediate, TREMORS, 03/26/19) Past Medical History Medical History See HPI Surgical History Hysterectomy-total, Cyst removed, Cholecystectomy, Bilateral Carpal Tunnel Surgery, Dental-top teeth all removed Family History Significant Family History: No pertinent family hx Social History * Smoker: non-smoker, secondhand Alcohol: Denies Drugs: denies Recent Travel/Sick Contacts: Denies: Recent travel, Recent sick contacts Pets in the home: Dog(s) (1) Psychosocial History: Anxiety, Tim SI and HI, Depression A-FIB/CHADSVASC A-FIB History Current/History of A-Fib/PAF?: Yes Current PO Anticoag Therapy: Yes Age/Risk Factor Scoring CHADSVASC: CHADSVASC Response (Comments) Value Age Risk Factor Age < 65 years old 0 Gender Risk Factor Female 1 Hx of CHF No 0 Hx of HTN Yes 1 Hx of Stroke/TIA/or VTE Yes 2 Hx of Diabetes Yes 1 Hx of Vascular Disease No 0 Total 5 Review of Systems Constitutional: Reports: Malaise Eyes: Denies: Pain, Vision change, Conjunctivae inflammation, Eyelid inflammation, Redness, Other ENT: Reports: Sinus Congestion, Post Nasal Drip; Denies: Head Aches, Ear Pain, Dysphagia, Sore Throat, Epistaxis, Other Symptoms Skin: Denies: Rash, Lesions, Jaundice, Bruising, Itching, Dry, Breakdown, Nail Changes, Other Pulmonary: Reports: Dyspnea, Cough Cardiovascular: Reports: Palpitations, Other Symptoms (heart fluttering intermittently) Gastrointestinal: Reports: Nausea, Other Symptoms (indigestion); Denies: Vomiting, Abdominal Pain, Diarrhea, Constipation, Melena, Hematochezia Genitourinary: Denies: Dysuria, Frequency, Incontinence, Hematuria, Retention, Other Symptoms Hematologic: Denies: Bruising, Bleeding Excessively, Petecchia, Purpura, Enlarged Lymph Nodes, Other Hematologic Endocrine: Reports: Heat Intolerance, Cold Intolerance; Denies: Polydipsia, Polyphagia, Polyuria, Other Endocrine Sx Musculoskeletal: Reports: Hand Pain, Leg Pain, Foot Pain, Joint Pain, Spasms Neurological: Reports: Weakness (right side after TIA), Incoordination (ambulates some times with cane) Psych: Reports: Mood Normal, Anxiety, Depression Physical Examination General Exam: Positive: Alert, Cooperative, Moderate Distress Eye Exam: Positive: PERRLA, Conjunctiva & lids normal, Sclera icteric ENT Exam: Positive: Atraumatic, Mucous membr. moist/pink, Pharynx Normal, Tongue Midline, Nares Patent Neck Exam: Positive: Supple, +2 carotid pulse wo bruit Chest Exam: Positive: Rhonchi (inspiratory and expiratory bilateral apical and base lobes) Heart Exam: Positive: Rate Normal, Normal S1, Normal S2 Abdomen Exam: Positive: Normal bowel sounds, Soft Extremity Exam: Positive: Normal pulses Skin Exam: Positive: Nl turgor and temperature Neuro Exam: Positive: Normal Speech, Cranial Nerves 3-12 NL Psych Exam: Positive: Mental status NL, Oriented x 3 Vital Signs Vital Signs Date Time Temp Pulse Resp B/P (MAP) Pulse Ox O2 Delivery O2 Flow Rate FiO2 03/26/19 19:02 85 24 107/58 (74) 97 03/26/19 18:53 97.8 03/26/19 16:03 Nasal Cannula 2.0 Laboratory Data Labs 24H Laboratory Tests 2 03/26/19 16:01: Immature Granulocyte % (Auto) 3.1H, White Blood Count 11.5H, Red Blood Count 4.03, Hemoglobin 12.3, Hematocrit 38.5, Mean Corpuscular Volume 95.5, Mean Corpuscular Hemoglobin 30.5, Mean Corpuscular Hemoglobin Concent 31.9L, Red Cell Distribution Width 14.4, Platelet Count 271, Neutrophils (%) (Auto) 82.0H, Lymphocytes (%) (Auto) 8.3L, Monocytes (%) (Auto) 5.7H, Eosinophils (%) (Auto) 0.4, Basophils (%) (Auto) 0.5, Neutrophils # (Auto) 9.4H, Lymphocytes # (Auto) 1.0L, Monocytes # (Auto) 0.7, Eosinophils # (Auto) 0.1, Basophils # (Auto) 0.1, Nucleated Red Blood Cells % (auto) 0.0, Anion Gap 11, Glomerular Filtration Rate 48.5L, Blood Urea Nitrogen 15, Creatinine 1.21, Sodium Level 135L, Potassium Level 4.3, Chloride Level 103, Carbon Dioxide Level 21, Calcium Level 8.6, Total Creatine Kinase 54, Creatine Kinase MB < 1.0, Creatine Kinase MB Relative Index 1.85, Myoglobin 42, Troponin I < 0.02, ON-Nmb-U-Type Natriuretic Peptide 111 03/26/19 17:07: Prothrombin Time 12.4, Prothromb Time International Ratio 0.95, Activated Partial Thromboplast Time 23.9L CBC/BMP Laboratory Tests 03/26/19 16:01 Red Blood Count 4.03, Mean Corpuscular Volume 95.5, Mean Corpuscular Hemoglobin 30.5, Mean Corpuscular Hemoglobin Concent 31.9 L, Red Cell Distribution Width 14.4, Neutrophils (%) (Auto) 82.0 H, Lymphocytes (%) (Auto) 8.3 L, Monocytes (%) (Auto) 5.7 H, Eosinophils (%) (Auto) 0.4, Basophils (%) (Auto) 0.5, Neutrophils # (Auto) 9.4 H, Lymphocytes # (Auto) 1.0 L, Monocytes # (Auto) 0.7, Eosinophils # (Auto) 0.1, Basophils # (Auto) 0.1, Calcium Level 8.6 Microbiology Microbiology 03/26/19 Blood Culture, Received Pending 03/26/19 Gram Stain, Received Pending 03/26/19 Sputum Culture, Received Pending Assessment/Plan 58-year-old female arrives at [facility] ED with complaints of shortness of breath, headaches, and cough that started approximately 3-4 days ago when she went to another emergency room for the same symptoms. She then reports she went to her revit drafter were she received levofloxacin antibiotic 750 mg 1 tablet a day plus steroids taking both medications for 3 days without any improvement. Left lower lobe pneumoniaacute Plan Telemetry with continuous pulse oximetry IV normal saline 80cc/hr Start antibiotics Cefepime 1G every 12 hours, prednisone 40 mg by mouth daily Labs: Sputum and Blood Cultures x2 -pending, D-Dimer, CBC, CMP Supplemental Oxygen 2-3 L per N/C (at home on 2L continuous daily O2) Goal O2 saturation 88-92% Aspiration precautions, Head of bed 30-45 raised Speech swallow study consult/manage nothing by mouth except sips of water with medications. Labs: ABG, CBC, CMP pending Acetaminophen 650 mg po q6h as needed for pain/fever Initiate bowel regimen Personally reviewed the patient's CT imaging and final result: CT chest without IV contrast shows bronchiectasis, left lower lobe and lesser to the right lower lobe with cerebral small patchy infiltration, posterior right upper lobe and left lower lobe. The focal pneumonitis with small cystic foci in the subpleural aspect of the posterior segment of the left upper lobe associated with small nodular densities. Findings consistent with foci of peripheral airway disease. Small scattered tree bud infiltrates in the subpleural lungs on bilaterally consistent with alveolitis and terminal bronchiolitis, pneumothorax, pericardial effusion. No aortic aneurysm. Bronchitis with COPD Exacerbation with Asthma-Acute on Chronic Continue with desonide 0.5 mg twice a day, chest x-ray no acute disease, Singulair 10 mg po qhs, Loratdine 10 mg po Am, Azestiline nasal spray 2 each nostril daily Sputum culture pending. Blood culture pending. M-vrssr-focwyl negative for PE. CT chest is negative. D-dimer 206.89 CPAP setting home 9; DuoNeb q 4 hours for shortness of breath, wheezing, cough, Patient will bring Breo-Ellipta and Umeclidinium from home for COPD as they are not on hospital formulary Start Spiriva 1 inhalation daily until patient brings home inhalers Essential hypertensionchronic Continue enalapril 2.5 mg by mouth daily Trop <0.02 x2 Atrial fibrillationchronic EKG (patient states she doesn't have atrial fib and is not taking medication for it at this time) Atorvastatin 40 mg by mouth daily at bedtime, Status post old TIA with right-sided weakness residualchronic Continue aspirin 81 mg Ambulates with a cane intermittently GERDchronic Hold home med: Ranitidine 300 mg by mouth daily at bedtime Start Protonix 40 mg Po every morning, Pepcid 40 mg Po qHS Diabetes mellitus type 2, insulin-dependentchronic Will hold home medication. Insulin glargine not a hospital formulary. Patient takes 60 units at bedtime Will start Levemir 45 units at bedtime. Sliding scale insulin before meals at bedtime for arlette patient. We'll hold home insulin, lispro flex pen as it is not on formulary POC glucose check AC/HS Restless leg syndromechronic. Continue Requip 0.5 mg by mouth at noon and 1 mg at bedtime, Gabapentin 300mg po TID, Theragram M daily (MVI) Myasthenia Gravis-Chronic Continue Mestinon 60 mg by mouth 4 times a day Immunoglobulin CellCept 1000 mg po daily Vitamin B12 1000 mcg daily po Anxiety with depressionchronic Continue citalopram 40 mg by mouth daily Osteoporosis/vitamin D deficiencychronic Vitamin D -2 50,000 IUs 1 tablet by mouth every weekly, 1000 mg Vitamin D3 daily Prognosis: Fair. DVT prophylaxis: Heparin 5000 IUs subcutaneous 3 times a day alternating with TEDs and SCDs bilateral lower extremities. Discharge: pending . Problems (1) Acute bronchitis with chronic obstructive pulmonary disease (COPD) Status: Acute Response to Treatment: Uncontrolled Discussed With: Patient Problem Specific Plan: Monitor Clinically, Repeat Labs Plan / VTE VTE Prophylaxis Ordered?: Yes VTE Exclusion Mechanical Proph: [place] Lower Ex DVT VTE Exclusion Pharmacological: N/A:VTE Prophy Ordered Plan IVF: Initiate Diet: Make NPO (reports she was told by [facility] she has been aspirating) Therapy: PT, OT (evaluate and treat decline), Speech (swallow study) Medications: Change to IV, Bowel Regimen Respiratory: Other Respiratory (CPAP 9 home setting. Patient brought her on machine) Diagnostics: Check Labs, Repeat Labs in AM, Obtain Cultures, Xrays, CT, EKG, Repeat EKG Advanced Directives: Health Care Proxy (HCP) (1st -Yunier Connor, 2nd Sister-Elizabeth Sainznirmala. Wants to be Full Code but not live on machines per patient) SERGIO HERBERT Mar 26, 2019 20:36
[2019-03-26 23:50] VITALS: BP 170/84
[2019-03-26 23:51] VITALS: BP 171/85
[2019-03-26 23:52] LABS: ABG BASE EXCESS -6.2 (-2.0-2.0); ABG HCO3 18.4 MEQ/L (22.0-26.0); ABG PARTIAL PRESSURE CO2 33.7 mmHg (35.0-45.0); ABG PARTIAL PRESSURE O2 138.4 mmHg (75.0-100.0); ABG STANDARD HCO3 19.5 MEQ/L (22.0-26.0); ABG TOTAL CO2 19.4 MEQ/L (22.0-29.0); ABG pH (ARTERIAL) 7.355 UNITS (7.350-7.450)
[2019-03-27] VITALS (7 sets, daily range): BP systolic 119–175; BP diastolic 58–86; O2SAT 98
--- NOTE | 2019-03-27 05:00 | ECGEPIP ---
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
[2019-03-27 05:19] LABS: HEMATOCRIT 37.9 % (36.0-47.0); HEMOGLOBIN 11.8 g/dl (12.0-15.5); MEAN CORPUSCULAR HEMOGLOBIN 29.9 pg (27.0-33.0); MEAN CORPUSCULAR HGB CONC 31.1 g/dl (32.0-36.5); MEAN CORPUSCULAR VOLUME 95.9 fl (80.0-96.0); PLATELET COUNT, AUTOMATED 260 10^3/uL (150-450); RED BLOOD COUNT 3.95 10^6/uL (4.00-5.40); WHITE BLOOD COUNT 8.5 10^3/uL (4.0-10.0)
[2019-03-27 05:42] LABS: ALBUMIN 3.1 GM/DL (3.2-5.2); ALT/SGPT 25 U/L (12-78); BILIRUBIN,TOTAL 0.4 MG/DL (0.2-1.0); BLOOD UREA NITROGEN 15 MG/DL (7-18); CARBON DIOXIDE LEVEL 21 MEQ/L (21-32); CHLORIDE LEVEL 109 MEQ/L (98-107); CREATININE FOR GFR 0.87 MG/DL (0.55-1.30); GLOMERULAR FILTRATION RATE > 60.0 (>51); GLUCOSE, FASTING 191 MG/DL (70-100); MAGNESIUM LEVEL 2.1 MG/DL (1.8-2.4); POTASSIUM SERUM 4.3 MEQ/L (3.5-5.1); SODIUM LEVEL 140 MEQ/L (136-145); TOTAL PROTEIN 6.4 GM/DL (6.4-8.2)
[2019-03-27] MEDS: HEPARIN SOD (PORCINE) 5000 UNITS/ML VIAL SC SCH ×3 (05:43→21:42)
[2019-03-27 05:59] LABS: ABG BASE EXCESS -3.4 (-2.0-2.0); ABG HCO3 21.1 MEQ/L (22.0-26.0); ABG O2 SATURATION 98.9 % (95.0-99.0); ABG PARTIAL PRESSURE CO2 36.4 mmHg (35.0-45.0); ABG PARTIAL PRESSURE O2 131.6 mmHg (75.0-100.0); ABG SITE NOT GIVEN; ABG STANDARD HCO3 21.7 MEQ/L (22.0-26.0); ABG TOTAL CO2 22.2 MEQ/L (22.0-29.0); ABG pH (ARTERIAL) 7.381 UNITS (7.350-7.450)
[2019-03-27] MEDS: TIOTROPIUM INHALER/CAPSULE (SPIRIVA) INH SCH (07:37)
[2019-03-27] MEDS: BUDESONIDE 0.5 MG/2 ML INHALATION SUSPENSION INH SCH ×2 (07:37→19:57)
--- NOTE | 2019-03-27 07:52 | REP ---
Portable chest, 07:01 a.m., single AP view with the patient semi upright: Comparison is 03/26/2019. There are bilateral epicardial fat pads. The. The left costophrenic angle is obscured by the left apical epicardial fat pad. The. The remainder of the lung miller are clear. Cardiac size is normal. The mike, mediastinum, skeletal structures are unremarkable. Impression: No acute cardiopulmonary findings. Bilateral epicardial fat pads. The left costophrenic and was obscured by the cardiac apical epicardial fat pad. The Electronically Signed by Ariel Sosa MD 03/27/2019 07:44 A
--- NOTE | 2019-03-27 09:10 | ECGEPIP ---
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
[2019-03-27] MEDS: AZELASTINE 137MCG NASAL SPY 30 ML (ASTELIN) SCH (09:52)
[2019-03-27] MEDS: FERROUS SULFATE 325MG TAB PO SCH ×2 (09:52→21:43)
[2019-03-27] MEDS: CEFEPIME HCL 1 GM in D5W 50 ML IV SCH ×2 (09:52→21:44)
[2019-03-27] MEDS: CYANOCOBALAMIN 500 MCG TAB PO SCH (09:52)
[2019-03-27] MEDS: MYCOPHENOLATE MOFETIL 250 MG CAP (J7517) PO SCH ×2 (09:52→21:42)
[2019-03-27] MEDS: ASPIRIN 81 MG ENTERIC TAB PO SCH (09:53)
[2019-03-27] MEDS: DOCUSATE SODIUM 100 MG CAP PO SCH ×2 (09:53→21:43)
[2019-03-27] MEDS: ENALAPRIL MALEATE 5 MG TAB PO SCH (09:53)
[2019-03-27] MEDS: PYRIDOSTIGMINE 60 MG TAB PO SCH ×4 (09:53→21:43)
[2019-03-27] MEDS: PANTOPRAZOLE 40MG TAB (PROTONIX) PO SCH (09:53)
[2019-03-27] MEDS: GABAPENTIN 300 MG CAP PO SCH ×3 (09:53→21:43)
[2019-03-27] MEDS: VITAMIN D 1,000 INTERNATIONAL UNITS TABLET PO SCH (09:53)
[2019-03-27] MEDS: rOPINIRole 1MG TAB PO SCH ×2 (09:53→21:43)
[2019-03-27] MEDS: predniSONE 20 MG TAB PO SCH (09:53)
[2019-03-27] MEDS: MULTIVITAMINS/MINERALS THERAP 1 TAB PO SCH (09:53)
[2019-03-27] MEDS: HumaLOG INSULIN (NovoLOG) PER UNIT SC SCH ×4 (09:54→21:00)
[2019-03-27] MEDS: TOPIRAMATE (TopAMAX) 100 MG TAB PO SCH ×2 (09:54→21:43)
[2019-03-27] MEDS: CitaloPRAM (CeleXA) 20 MG TAB PO SCH (09:54)
[2019-03-27] MEDS: LORATADINE 10 MG TAB PO SCH (09:54)
[2019-03-27] MEDS: NS 1,000 ML IV SCH ×2 (09:55→21:42)
[2019-03-27] MEDS ORDERED: NYSTATIN 100,000 UNITS/GM TOPICAL PWD 15 GM TOP PRN (11:00)
[2019-03-27] MEDS: rOPINIRole 0.25 MG TAB(REQUIP) PO SCH (12:50)
[2019-03-27] MEDS: BREO ELLIPTA PO SCH (14:46)
[2019-03-27] MEDS: INCRUSE ELLIPTA 62.5 MCG INH SCH (14:46)
[2019-03-27] MEDS: IPRATROPIUM 0.5MG/ALBUTEROL 2.5MG INH SOL UD 3ML (DUONEB)(J7620) NEB SCH ×2 (16:00→20:06)
[2019-03-27] MEDS: MONTELUKAST 10 MG TAB PO SCH (17:26)
--- NOTE | 2019-03-27 20:47 | IPNPDOC ---
Date Seen The patient was seen on 03/27/19. Progress Note SUBJECTIVE: Patient reported feeling SOB and very weak still. Also has a cough and requested Mucinex. Reportedly had an episode of chest pain this morning that is reproducible and occurs with cough. Seen by Speech. OBJECTIVE PHYSICAL EXAMINATION: VITAL SIGNS: Please see below. General: Alert, generalized lethargy. Eyes: Normal sclera, EOMI HENT: Atraumatic, neck supple Cardiovascular: Normal rate Pulmonary: Coarse breath sounds b/l. GI: Soft, nontender, nondistended Skin: Warm and dry Neuro: CN grossly intact. Psych: oriented x 3 LABORATORY DATA, IMAGING STUDIES, MICROBIOLOGY: Please see below. DVT prophylaxis ordered?: HSQ ASSESSMENT AND PLAN: 1. COPD exacerbation - c/w duonebs QID, prednisone. - O2 support as needed. - Will consult pulmonology given severe symptoms with poor pulmonary function at baseline. 2. PNA - Recurrent treatment and diagnosis of PNA about 6x in the past 12 months. - Suspected 2/2 aspiration. Patient reports that she was told she had Aspiration PNA in the past but then later that she didn't? - Had seen GI at a different facility and had pill study that showed no aspiration? - On cefepime currently. Continue for now pending Pulm eval. - Speech evaluation ongoing. - Patient has concern for mold exposure at home. f/u sputum and blood cultures. 3. HTN c/w home med. 4. Suspected Afib? - Patient not aware of it, EKG does not show evidence of Afib this AM. 5. hx TIA - w/ R.sided residual weakness. - c/w home meds. 6. DM - takes 60 lantus at home. - Started on levemir 45, will adjust if needed. ISS. 7. Myathenia Gravis chronic - c/w home med Mestinon, cellcept, vit B12. 8. Anxiety w/ depression - c/w Citalopram. VS, I&O, 24H, Fishbone Vital Signs/I&O Vital Signs Date Time Temp Pulse Resp B/P (MAP) Pulse Ox O2 Delivery O2 Flow Rate FiO2 03/27/19 15:23 91 14 157/75 (102) 2.0 03/27/19 14:00 98.0 97 03/27/19 03:20 BIPAP/CPAP I&O- Last 24 Hours up to 6 AM 03/27/19 06:00 Intake Total 790 ml Output Total 1100 ml Balance -310 ml Laboratory Data 24H LABS Laboratory Tests 2 03/26/19 20:50: Bedside Glucose (Misc Panel) 238H 03/26/19 21:06: Estimated Mean Plasma Glucose 171H, Hemoglobin A1c 7.6 03/26/19 21:07: D-Dimer, Quantitative 206.89 03/26/19 23:27: Blood Gas Bicarbonate Standard 19.5L, Arterial Blood pH 7.355, Arterial Blood Partial Pressure CO2 33.7L, Arterial Blood Partial Pressure O2 138.4H, Arterial Blood Total CO2 19.4L, Arterial Blood HCO3 18.4L, Arterial Blood Base Excess - 6.2L, Arterial Blood Oxygen Saturation 99.0 03/26/19 23:30: Troponin I < 0.02 03/27/19 04:50: Troponin I < 0.02, Nucleated Red Blood Cells % (auto) 0.0, Anion Gap 10, Glomerular Filtration Rate > 60.0, Blood Urea Nitrogen 15, Creatinine 0.87, Sodium Level 140, Potassium Level 4.3, Chloride Level 109H, Carbon Dioxide Level 21, Calcium Level 9.0, Aspartate Amino Transf (AST/SGOT) 11, Alanine Aminotransferase (ALT/SGPT) 25, Alkaline Phosphatase 73, Total Bilirubin 0.4, Total Protein 6.4, Albumin 3.1L, Magnesium Level 2.1, Albumin/Globulin Ratio 0.94L 03/27/19 05:39: Blood Gas Bicarbonate Standard 21.7L, Arterial Blood pH 7.381, Arterial Blood Partial Pressure CO2 36.4, Arterial Blood Partial Pressure O2 131.6H, Arterial Blood Total CO2 22.2, Arterial Blood HCO3 21.1L, Arterial Blood Base Excess - 3.4L, Arterial Blood Oxygen Saturation 98.9, Arterial Blood Gas Puncture Site NOT GIVEN 03/27/19 06:34: Bedside Glucose (Misc Panel) 181H 03/27/19 10:19: Troponin I < 0.02 03/27/19 11:48: Bedside Glucose (Misc Panel) 163H 03/27/19 16:26: Bedside Glucose (Misc Panel) 263H CBC/BMP Laboratory Tests 03/27/19 04:50 Red Blood Count 3.95 L, Mean Corpuscular Volume 95.9, Mean Corpuscular Hemoglobin 29.9, Mean Corpuscular Hemoglobin Concent 31.1 L, Red Cell Distribution Width 14.3, Calcium Level 9.0, Aspartate Amino Transf (AST/SGOT) 11, Alanine Aminotransferase (ALT/SGPT) 25, Alkaline Phosphatase 73, Total Clifton irubin 0.4, Total Protein 6.4, Albumin 3.1 L Microbiology Microbiology 03/26/19 Blood Culture, Received Pending 03/26/19 Blood Culture - Preliminary, Resulted No growth after 24 hours . All specim... 03/26/19 Gram Stain - Final, Resulted 03/26/19 Sputum Culture, Resulted Pending FRANCESCO CRUZ MD Mar 27, 2019 20:47
[2019-03-27] MEDS ORDERED: guaiFENesin ER 600 MG TAB PO SCH (21:00)
[2019-03-27] MEDS: ATORVASTATIN 20 MG TAB PO SCH (21:43)
[2019-03-27] MEDS: FAMOTIDINE 20 MG TAB PO SCH (21:43)
[2019-03-27] MEDS: LEVEMIR (INSULIN DETEMIR) 1 UNITS/0.01ML SC SCH (21:43)
[2019-03-28 01:25] VITALS: O2SAT 99
[2019-03-28] MEDS: HEPARIN SOD (PORCINE) 5000 UNITS/ML VIAL SC SCH ×3 (05:40→21:23)
[2019-03-28 06:00] VITALS: BP 132/71
[2019-03-28] MEDS: HumaLOG INSULIN (NovoLOG) PER UNIT SC SCH ×4 (07:30→21:22)
[2019-03-28] MEDS: TIOTROPIUM INHALER/CAPSULE (SPIRIVA) INH SCH (07:57)
[2019-03-28] MEDS: BUDESONIDE 0.5 MG/2 ML INHALATION SUSPENSION INH SCH ×2 (07:57→19:49)
[2019-03-28] MEDS: IPRATROPIUM 0.5MG/ALBUTEROL 2.5MG INH SOL UD 3ML (DUONEB)(J7620) NEB SCH ×4 (07:57→19:49)
[2019-03-28 08:00] VITALS: BP 144/74
[2019-03-28 08:10] LABS: HEMATOCRIT 35.7 % (36.0-47.0); HEMOGLOBIN 11.1 g/dl (12.0-15.5); MEAN CORPUSCULAR HEMOGLOBIN 30.1 pg (27.0-33.0); MEAN CORPUSCULAR HGB CONC 31.1 g/dl (32.0-36.5); MEAN CORPUSCULAR VOLUME 96.7 fl (80.0-96.0); PLATELET COUNT, AUTOMATED 255 10^3/uL (150-450); RED BLOOD COUNT 3.69 10^6/uL (4.00-5.40)
[2019-03-28 08:15] LABS: BLOOD UREA NITROGEN 19 MG/DL (7-18); CARBON DIOXIDE LEVEL 21 MEQ/L (21-32); CHLORIDE LEVEL 110 MEQ/L (98-107); GLOMERULAR FILTRATION RATE > 60.0 (>51); GLUCOSE, FASTING 81 MG/DL (70-100); POTASSIUM SERUM 3.8 MEQ/L (3.5-5.1); SODIUM LEVEL 140 MEQ/L (136-145)
[2019-03-28] MEDS: BREO ELLIPTA PO SCH (08:41)
[2019-03-28] MEDS: INCRUSE ELLIPTA 62.5 MCG INH SCH (08:42)
[2019-03-28] MEDS ORDERED: VITAMIN D 50,000 UNITS CAPSULE (ERGOCALCIFEROL 1.25MG) PO SCH (09:00)
[2019-03-28] MEDS ORDERED: SODIUM CHLORIDE NASAL 0.65% SPRAY BTL (OCEAN) PRN (10:15)
--- NOTE | 2019-03-28 10:31 | ECGEPIP ---
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
[2019-03-28] MEDS: CEFEPIME HCL 1 GM in D5W 50 ML IV SCH ×2 (10:32→21:21)
[2019-03-28] MEDS: NS 1,000 ML IV SCH (10:33)
[2019-03-28] MEDS: ASPIRIN 81 MG ENTERIC TAB PO SCH (10:34)
[2019-03-28] MEDS: FERROUS SULFATE 325MG TAB PO SCH ×2 (10:34→21:24)
[2019-03-28] MEDS: MULTIVITAMINS/MINERALS THERAP 1 TAB PO SCH (10:34)
[2019-03-28] MEDS: predniSONE 20 MG TAB PO SCH (10:34)
[2019-03-28] MEDS: DOCUSATE SODIUM 100 MG CAP PO SCH ×2 (10:34→21:24)
[2019-03-28] MEDS: GABAPENTIN 300 MG CAP PO SCH ×3 (10:34→21:23)
[2019-03-28] MEDS: PANTOPRAZOLE 40MG TAB (PROTONIX) PO SCH (10:35)
[2019-03-28] MEDS: LORATADINE 10 MG TAB PO SCH (10:35)
[2019-03-28] MEDS: CitaloPRAM (CeleXA) 20 MG TAB PO SCH (10:35)
[2019-03-28] MEDS: TOPIRAMATE (TopAMAX) 100 MG TAB PO SCH ×2 (10:36→21:23)
[2019-03-28] MEDS: rOPINIRole 1MG TAB PO SCH ×2 (10:36→21:24)
[2019-03-28] MEDS: VITAMIN D 1,000 INTERNATIONAL UNITS TABLET PO SCH (10:36)
[2019-03-28] MEDS: CYANOCOBALAMIN 500 MCG TAB PO SCH (10:40)
[2019-03-28] MEDS: PYRIDOSTIGMINE 60 MG TAB PO SCH ×4 (10:40→21:24)
[2019-03-28] MEDS: ENALAPRIL MALEATE 5 MG TAB PO SCH (10:40)
--- NOTE | 2019-03-28 10:40 | ECGEPIP ---
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
[2019-03-28] MEDS: MYCOPHENOLATE MOFETIL 250 MG CAP (J7517) PO SCH ×2 (10:41→21:23)
[2019-03-28] MEDS: AZELASTINE 137MCG NASAL SPY 30 ML (ASTELIN) SCH (10:42)
--- NOTE | 2019-03-28 10:50 | IPN ---
DATE OF VISIT: 03/28/2019 I attended Jon Connor. She is followed through our practice as an outpatient. In essence, she is a 58-year-old woman with myasthenia gravis, underlying bronchiectasis, mal clearance of secretions, underlying obstructive sleep apnea (DMITRI), and frequent infections due to mal clearance of secretions. She has been more recently infected as an outpatient with Enterobacter aerogenes. She has finished several courses of aminoglycosides. I believe she was given a course of doxycycline in [facility]. She has been on and off of prednisone. She is admitted now with increasing shortness of breath. Over the last 24 hours, T-max 97.5, blood pressure 130s to 140s, heart rate 60s to 70s with a sinus mechanism, respiratory rate 18 to 22 without accessory muscle use. Ins and outs midnight to midnight 2840 mL in with 3095 mL out. Most recent laboratories show a white blood cell count of 10.0, hemoglobin 11.1, platelet count 255,000. No differential available today. Sodium 140, potassium 3.8, chloride 110, CO2 29, BUN 19, creatinine 0.9, glucose 81. Blood gas done yesterday on an unknown oxygen flow rate shows a pH of 7.381, pCO2 of 36.4 and pO2 of 131.6. CT scan is reviewed. She clearly has underlying bronchiectasis, worse at the bases. There is some chronic atelectatic changes in the middle lobe with associated ground glass area. She has some nodular appearing infiltrates that are more marked at the left base. No significant effusion. She has some of what are most likely reactive adenopathy. The most recent sputum again grows Enterobacter aerogenes sensitive to the Cefepime she is receiving here. Other medications have been reviewed. On exam, she is awake, alert and appropriate. Nasal cannula oxygen in place. Membranes are moist. Sclerae are clear. Trachea is in the midline. Chest has diminished, but symmetric expansion. There is some inspiratory squeak with some faint end expiratory wheeze, especially at the left base. Harsh bronchial sound with cough. No rubs. No convincing egophony. No other focal adventitious breath sounds are identified. Cardiac exam distant, generally regular. Peripheral pulses palpable. No edema. No obvious murmur, gallop or rub. Abdomen obese, soft, with active bowel sounds. No convincing organomegaly or masses. Extremities: Without cyanosis or clubbing. Neurologically, she is awake, alert and appropriate. Laboratories are outlined above. IMPRESSION: 1. Exacerbation of her underlying bronchiectasis. 2. Mal clearance of secretions, multifactorial. 3. Obstructive sleep apnea (managed by primary outpatient physician). 4. Chronic hypoxemic respiratory failure on oxygen therapy. 5. Frequent steroids. 6. Myasthenia gravis. RECOMMENDATIONS: At this point, we will increase the regimen to help her clear secretions with the use of EzPAP PEP therapy and a percussion vest. We will increase the dose of her expectorants. She is already on inhaled steroids. Her antimicrobials were appropriate at this point. I do believe some of the issues as well regarding her aspiration is her nasal congestion and postnasal drip that clearly fuels the fire for her when she puts on her C-PAP. I did discuss this with her at length. At this point, we will proceed as outlined above. I have spoken at length with the primary service regarding her situation as well. Further recommendations will be made in the progress record as new information becomes available.
[2019-03-28] MEDS: guaiFENesin ER 600 MG TAB PO SCH ×2 (11:01→21:24)
[2019-03-28] MEDS: rOPINIRole 0.25 MG TAB(REQUIP) PO SCH (12:01)
[2019-03-28] MEDS ORDERED: VARIBAR NECTAR 40% w/v 240ML SUSP BTL As Ordered ONE (12:14)
[2019-03-28] MEDS ORDERED: VARIBAR PUDDING 40% w/v 230ML TUBE As Ordered ONE (12:14)
[2019-03-28] MEDS ORDERED: E-Z-PAQUE 96% w/w SUSP 176GM BTL As Ordered ONE (12:14)
[2019-03-28] MEDS ORDERED: BARIUM SULFATE 700 MG TABLET (E-Z-DISK) As Ordered ONE (12:15)
--- NOTE | 2019-03-28 16:40 | REP ---
Examination Requested: Cookie Swallow Reason For Exam: Dysphasia The procedure was performed by DEANNA Salomon, under the direct supervision of Dr. Sosa. The procedure was performed with Ruthie Agosto from speech pathology present. 5 ml aliquots of thin, pudding, mixed fruit, soft food, hard food and pill consistency barium was administered. No penetration or aspiration was visualized throughout the course of the exam. The detailed report of this examination will be provided by speech pathology. 1.1 minutes of fluoroscopy time was utilized for this procedure. Reviewed by DEANNA Beckford 03/28/2019 03:03 P Electronically Signed by Ariel Sosa MD 03/28/2019 04:32 P
[2019-03-28] MEDS: MONTELUKAST 10 MG TAB PO SCH (17:34)
--- NOTE | 2019-03-28 19:00 | IPNPDOC ---
Date Seen The patient was seen on 03/28/19. Progress Note SUBJECTIVE: Patient appeared and reported feeling better today. No significant labored breathing noticed like yesterday evening. No chest pain reported. repeat EKG showed no significant changes. OBJECTIVE PHYSICAL EXAMINATION: VITAL SIGNS: Please see below. General: Alert, generalized lethargy. Eyes: Normal sclera, EOMI HENT: Atraumatic, neck supple Cardiovascular: Normal rate Pulmonary: Mild bibasilar Coarse breath sounds.. GI: Soft, nontender, nondistended Skin: Warm and dry Neuro: CN grossly intact. Psych: oriented x 3 LABORATORY DATA, IMAGING STUDIES, MICROBIOLOGY: Please see below. DVT prophylaxis ordered?: HSQ ASSESSMENT AND PLAN: 1. COPD exacerbation - c/w duonebs QID, prednisone. - O2 support as needed. - Pulmonology consulted. 2. SOB - PNA vs. worsening bronchiectasis - Recurrent treatment and diagnosis of PNA about 6x in the past 12 months. - Suspected 2/2 aspiration. Patient reports that she was told she had Aspiration PNA in the past but then later that she didn't after further evaluation by GI? - On cefepime currently. Sputum culture grew Enterobacter aerogenes, which is the same organism as found outpatient, has had several courses of aminoglycosides. 3. HTN c/w home med. 4. Suspected Afib? - Patient not aware of it, EKG does not show evidence of Afib this AM. 5. hx TIA - w/ R.sided residual weakness. - c/w home meds. 6. DM - takes 60 lantus at home. - On levemir 50 now, will adjust if needed. ISS. 7. Myathenia Gravis chronic - c/w home med Mestinon, cellcept, vit B12. 8. Anxiety w/ depression - c/w Citalopram. VS, I&O, 24H, Fishbone Vital Signs/I&O Vital Signs Date Time Temp Pulse Resp B/P (MAP) Pulse Ox O2 Delivery O2 Flow Rate FiO2 03/28/19 14:00 97.2 62 18 99 2.0 03/28/19 10:40 144/74 03/28/19 01:25 BIPAP/CPAP I&O- Last 24 Hours up to 6 AM 03/28/19 06:00 Intake Total 2480 ml Output Total 2645 ml Balance -165 ml Laboratory Data 24H LABS Laboratory Tests 2 03/27/19 21:03: Bedside Glucose (Misc Panel) 147H 03/28/19 06:41: Nucleated Red Blood Cells % (auto) 0.0, Anion Gap 9, Glomerular Filtration Rate > 60.0, Blood Urea Nitrogen 19H, Creatinine 0.90, Sodium Level 140, Potassium Level 3.8, Chloride Level 110H, Carbon Dioxide Level 21, Calcium Level 9.0 03/28/19 11:41: Bedside Glucose (Misc Panel) 178H 03/28/19 17:04: Bedside Glucose (Misc Panel) 251H CBC/BMP Laboratory Tests 03/28/19 06:41 Red Blood Count 3.69 L, Mean Corpuscular Volume 96.7 H, Mean Corpuscular Hemoglobin 30.1, Mean Corpuscular Hemoglobin Concent 31.1 L, Red Cell Distrib ution Width 14.2, Calcium Level 9.0 Microbiology Microbiology 03/26/19 Blood Culture - Preliminary, Resulted No growth after 24 hours . All specim... 03/26/19 Blood Culture - Preliminary, Resulted No Growth after 48 hours. All Specime... 03/26/19 Gram Stain - Final, Complete 03/26/19 Sputum Culture - Final, Complete Enterobacter Aerogenes FRANCESCO CRUZ MD Mar 28, 2019 19:00
[2019-03-28] MEDS ORDERED: LEVEMIR (INSULIN DETEMIR) 1 UNITS/0.01ML SC SCH (21:00)
[2019-03-28] MEDS: ATORVASTATIN 20 MG TAB PO SCH (21:24)
[2019-03-28] MEDS: FAMOTIDINE 20 MG TAB PO SCH (21:24)
[2019-03-28 22:00] VITALS: BP 151/69
[2019-03-29] MEDS: IPRATROPIUM 0.5MG/ALBUTEROL 2.5MG INH SOL UD 3ML (DUONEB)(J7620) NEB SCH ×7 (03:46→23:53)
[2019-03-29 06:00] VITALS: BP 137/75
[2019-03-29 06:09] LABS: HEMOGLOBIN 11.5 g/dl (12.0-15.5); MEAN CORPUSCULAR HEMOGLOBIN 31.2 pg (27.0-33.0); MEAN CORPUSCULAR HGB CONC 31.9 g/dl (32.0-36.5); MEAN CORPUSCULAR VOLUME 97.6 fl (80.0-96.0); PLATELET COUNT, AUTOMATED 230 10^3/uL (150-450); RED BLOOD COUNT 3.69 10^6/uL (4.00-5.40)
[2019-03-29 06:32] LABS: BLOOD UREA NITROGEN 18 MG/DL (7-18); CALCIUM LEVEL 8.8 MG/DL (8.5-10.1); CARBON DIOXIDE LEVEL 24 MEQ/L (21-32); CHLORIDE LEVEL 107 MEQ/L (98-107); CREATININE FOR GFR 0.89 MG/DL (0.55-1.30); GLOMERULAR FILTRATION RATE > 60.0 (>51); GLUCOSE, FASTING 154 MG/DL (70-100); POTASSIUM SERUM 3.8 MEQ/L (3.5-5.1); SODIUM LEVEL 138 MEQ/L (136-145)
[2019-03-29] MEDS: HEPARIN SOD (PORCINE) 5000 UNITS/ML VIAL SC SCH ×3 (06:32→22:00)
[2019-03-29] MEDS: TIOTROPIUM INHALER/CAPSULE (SPIRIVA) INH SCH (08:00)
[2019-03-29] MEDS: BUDESONIDE 0.5 MG/2 ML INHALATION SUSPENSION INH SCH ×2 (08:00→20:09)
[2019-03-29] MEDS: BREO ELLIPTA PO SCH (08:08)
[2019-03-29] MEDS: INCRUSE ELLIPTA 62.5 MCG INH SCH (08:09)
[2019-03-29 08:28] VITALS: O2SAT 98
[2019-03-29] MEDS: VITAMIN D 1,000 INTERNATIONAL UNITS TABLET PO SCH (09:07)
[2019-03-29] MEDS: FERROUS SULFATE 325MG TAB PO SCH ×2 (09:07→22:00)
[2019-03-29] MEDS: predniSONE 20 MG TAB PO SCH (09:07)
[2019-03-29] MEDS: CEFEPIME HCL 1 GM in D5W 50 ML IV SCH ×2 (09:07→21:55)
[2019-03-29] MEDS: TOPIRAMATE (TopAMAX) 100 MG TAB PO SCH ×2 (09:07→21:55)
[2019-03-29] MEDS: DOCUSATE SODIUM 100 MG CAP PO SCH ×2 (09:07→22:00)
[2019-03-29] MEDS: CitaloPRAM (CeleXA) 20 MG TAB PO SCH (09:07)
[2019-03-29] MEDS: MYCOPHENOLATE MOFETIL 250 MG CAP (J7517) PO SCH ×2 (09:07→21:56)
[2019-03-29] MEDS: guaiFENesin ER 600 MG TAB PO SCH ×2 (09:07→22:00)
[2019-03-29] MEDS: MULTIVITAMINS/MINERALS THERAP 1 TAB PO SCH (09:07)
[2019-03-29] MEDS: ASPIRIN 81 MG ENTERIC TAB PO SCH (09:07)
[2019-03-29] MEDS: PANTOPRAZOLE 40MG TAB (PROTONIX) PO SCH (09:07)
[2019-03-29] MEDS: HumaLOG INSULIN (NovoLOG) PER UNIT SC SCH ×4 (09:07→21:00)
[2019-03-29] MEDS: rOPINIRole 1MG TAB PO SCH ×2 (09:07→22:00)
[2019-03-29] MEDS: AZELASTINE 137MCG NASAL SPY 30 ML (ASTELIN) SCH (09:08)
[2019-03-29] MEDS: PYRIDOSTIGMINE 60 MG TAB PO SCH ×4 (09:08→22:00)
[2019-03-29] MEDS: LORATADINE 10 MG TAB PO SCH (09:08)
[2019-03-29] MEDS: CYANOCOBALAMIN 500 MCG TAB PO SCH (09:08)
[2019-03-29] MEDS: GABAPENTIN 300 MG CAP PO SCH ×3 (09:08→22:01)
[2019-03-29] MEDS: ENALAPRIL MALEATE 5 MG TAB PO SCH (09:08)
--- NOTE | 2019-03-29 10:29 | IPN ---
DATE OF VISIT: 03/29/2019 I again attended Jon Connor. She feels better today. T-max 98. Blood pressure in the 130s. Heart rate in the 60s. Respiratory rate 16 to 20 without accessory muscle use. Laboratories have been reviewed. White blood cell count 9.0, hemoglobin 11.5 and platelet count 230,000. Chemistries with sodium 138, potassium 3.8, chloride 107, CO2 24, BUN 18, creatinine 0.89, glucose 154. No new culture data available. Blood cultures are negative. On exam, she is awake, alert and appropriate. Pupils react, sclerae are clear. Trachea is midline. Chest shows diminished, but symmetric expansion. There are some crackles at the bases, left greater than right. She has some rhonchi that clear better than yesterday. Cardiac exam is regular, with no gallop. Peripheral pulses palpable, no edema. The abdomen is obese, soft and nontender with active bowel sounds. No convincing organomegaly or masses. Extremities without cyanosis or clubbing. Neurologically, she is awake, alert and appropriate. Psychiatric with normal mood and affect. IMPRESSION: 1. Bronchiectasis with exacerbation. 2. Mal clearance of secretions on the basis of the above. 3. Sputum with Enterobacter aerogenes. 4. Myasthenia gravis. 5. Obstructive sleep apnea (DMITRI) on C-PAP, compliant. RECOMMENDATIONS: At this point, I am in agreement with her current regimen. She is doing very well with the addition of the percussion vest and we were in the process of getting her one for the home setting. We will continue that process. Her steroids have been weaned to oral. She is to continue her current IV antimicrobials. Increasing ambulation has been helping as well. She is compliant with her C-PAP for her sleep apnea. Ulcer and deep vein thrombosis (DVT) prophylaxis are in place. At this point, will proceed as outlined above. Further recommendations will be made in the progress record as new information becomes available.
[2019-03-29 11:23] VITALS: O2SAT 10
[2019-03-29] MEDS: rOPINIRole 0.25 MG TAB(REQUIP) PO SCH (13:18)
[2019-03-29 14:00] VITALS: BP 135/70
[2019-03-29] MEDS: MONTELUKAST 10 MG TAB PO SCH (17:07)
--- NOTE | 2019-03-29 19:36 | IPNPDOC ---
Date Seen The patient was seen on 03/29/19. Progress Note SUBJECTIVE: Patient appeared well today and stated she feels much better. No significant SOB or chest discomfort. Afebrile overnight. OBJECTIVE PHYSICAL EXAMINATION: VITAL SIGNS: Please see below. General: Alert, Eyes: Normal sclera, EOMI HENT: Atraumatic, neck supple Cardiovascular: Normal rate Pulmonary: Mild bibasilar coarse breath sounds.. GI: Soft, nontender, nondistended Skin: Warm and dry Neuro: CN grossly intact. Psych: oriented x 3 LABORATORY DATA, IMAGING STUDIES, MICROBIOLOGY: Please see below. DVT prophylaxis ordered?: HSQ ASSESSMENT AND PLAN: 1. COPD exacerbation - c/w duonebs QID, prednisone. - O2 support as needed. - Pulmonology consulted. 2. SOB - PNA vs. worsening bronchiectasis - Recurrent treatment and diagnosis of PNA about 6x in the past 12 months. - Suspected 2/2 aspiration. Patient reports that she was told she had Aspiration PNA in the past but then later that she didn't after further evaluation by GI? - On cefepime currently. Sputum culture grew Enterobacter aerogenes, which is the same organism as found outpatient, has had several courses of aminoglycosides. - Pulm following. Recommend continue treatment for now. ID consulted given recurrent sputum growth and already had multiple courses of treatment. 3. HTN c/w home med. 4. Suspected Afib? - Patient not aware of it, EKG does not show evidence of Afib this AM. 5. hx TIA - w/ R.sided residual weakness. - c/w home meds. 6. DM - takes 60 lantus at home. - On levemir 55 now, will adjust if needed. ISS. 7. Myathenia Gravis chronic - c/w home med Mestinon, cellcept, vit B12. 8. Anxiety w/ depression - c/w Citalopram. VS, I&O, 24H, Fishbone Vital Signs/I&O Vital Signs Date Time Temp Pulse Resp B/P (MAP) Pulse Ox O2 Delivery O2 Flow Rate FiO2 03/29/19 14:00 98.4 65 18 135/70 (91) 98 2.0 03/29/19 11:23 Nasal Cannula I&O- Last 24 Hours up to 6 AM 03/29/19 05:59 Intake Total 1430 ml Output Total 1600 ml Balance -170 ml Laboratory Data 24H LABS Laboratory Tests 2 03/28/19 20:45: Bedside Glucose (Misc Panel) 318H 03/29/19 05:35: Nucleated Red Blood Cells % (auto) 0.0, Anion Gap 7L, Glomerular Filtration Rate > 60.0, Blood Urea Nitrogen 18, Creatinine 0.89, Sodium Level 138, Potassium Level 3.8, Chloride Level 107, Carbon Dioxide Level 24, Calcium Level 8.8 03/29/19 11:09: Bedside Glucose (Misc Panel) 133H 03/29/19 16:41: Bedside Glucose (Misc Panel) 253H CBC/BMP Laboratory Tests 03/29/19 05:35 Red Blood Count 3.69 L, Mean Corpuscular Volume 97.6 H, Mean Corpuscular Hemoglobin 31.2, Mean Corpuscular Hemoglobin Concent 31.9 L, Red Cell Distribution Width 14.3, Calcium Level 8.8 Microbiology Microbiology 03/26/19 Blood Culture - Preliminary, Resulted No Growth after 48 hours. All Specime... 03/26/19 Blood Culture - Preliminary, Resulted No Growth after 72 hours. All specime... 03/26/19 Gram Stain - Final, Complete 03/26/19 Sputum Culture - Final, Complete Enterobacter Aerogenes FRANCESCO CRUZ MD Mar 29, 2019 19:35
--- NOTE | 2019-03-29 20:03 | CR ---
DATE OF CONSULTATION: 03/29/2019 REASON FOR CONSULTATION: Bronchiectasis with acute exacerbation and culture positive for Enterobacter. HISTORY OF PRESENT ILLNESS: Mrs. Connor is a 58-year-old female who was admitted on 03/26 with complaints of increasing cough of 4 days duration with increasing shortness of breath and headaches. The patient had been seen by her production line mechanic and had been treated with levofloxacin and steroids as an outpatient without improvement of her symptoms about 3 days prior. She usually takes Pulmicort twice a day, DuoNebs four times a day without improvement. At baseline she has oxygen at 2 liters but does not use her nebulizers, but recently over the past year the patient has had increasing shortness of breath, multiple courses of steroids. She denied having any fever, chills, nausea, vomiting, diarrhea or body aches. PAST MEDICAL HISTORY: Significant for: Atrial fibrillation. Anxiety and depression. Osteoporosis. Myasthenia gravis. Gastroesophageal reflux disease. Restless leg syndrome. Essential hypertension. Chronic obstructive pulmonary disease (COPD) on CPAP of 9 at home and continuous oxygen of 2 liters. History of transient ischemic attack (TIA) with slurred speech and right-sided weakness. Diabetes, insulin dependent. Vitamin D deficiency. History of recurrent aspiration diagnosed in [place]. The patient states that she has had pneumonia at least six times in the past 12 months, but she had not been admitted to [facility]. PAST SURGICAL HISTORY Hysterectomy. Cholecystectomy. Bilateral carpal tunnel surgery. Dental upper teeth extraction. SOCIAL HISTORY: She is a nonsmoker. Denies alcohol or drug use. She lives with her . She has a dog. ALLERGIES: 1. METFORMIN - anaphylaxis. 2. SULFA. 3. FLUOXETINE. 4. NIACIN. 5. METOCLOPRAMIDE. MEDICATIONS: - Levemir 55 units subcu q.h.s. - albuterol/Atrovent nebs q. 4 p.r.n. - Mucinex 1200 mg b.i.d. - Requip 0.5 mg daily - nystatin powder to abdominal folds - Protonix 40 mg p.o. daily - aspirin 81 mg p.o. daily - vitamin D 1000 units daily - citalopram 40 mg daily - vitamin B12 1000 mcg p.o. daily - loratadine 10 mg p.o. daily - multivitamin 1 tablet daily - Astelin 2 sprays daily - enalapril 2.5 mg daily - Breo one inhalation daily - INCRUSE Ellipta 1 inhalation daily - budesonide 0.5 mg b.i.d. - cefepime 1 gram IV q.12 h - Colace 100 mg p.o. b.i.d. - atorvastatin 40 mg p.o. q.h.s. - ferrous sulfate 325 mg b.i.d. - gabapentin 200 mg p.o. t.i.d. - mycophenolate 1000 mg p.o. b.i.d. - pyridostigmine 60 mg p.o. q.i.d. - famotidine 40 mg p.o. q.h.s. - ropinirole 1 mg p.o. b.i.d. - Topamax 100 mg p.o. b.i.d. - insulin sliding scale as needed - montelukast 10 mg p.o. q.p.m. - prednisone 40 mg p.o. daily LABORATORY DATA: White count is 9, on admission was 11.5, hemoglobin 11.5, hematocrit 36, platelets 230. Sodium 138, potassium 3.8, chloride 107, bicarb 24, BUN 18, creatinine 0.8, glucose 154, calcium 8.8, troponin less than 0.020, albumin 3.1. Aspergillus antibodies were done 09/2018 and were negative. Pneumococcal antibodies were done in 2015 were really low. IgG levels done in 2018 932, IgA 40. Blood cultures two sets done on 03/26 were no growth. Sputum culture Enterobacter aeruginosa on 03/26, sensitive to ceftriaxone, ceftazidime, intermediate to levofloxacin, resistant to cefazolin, sensitive to gentamicin, Bactrim, aztreonam, ertapenem and cefepime. CT chest done on 03/26 showed bronchiectasis in the left lower lobe and to a lesser degree the right lower lobe. Several small foci of patchy parenchymal infiltration demonstrated in the posterior segment of the right upper lobe and left lower lobe, may represent multifocal pneumonitis. Small cystic foci of the posterior segment of the left upper lobe associated with a few small nodular densities consistent with peripheral airway disease. Scattered foci atrium bud infiltrates consistent with alveolitis, bronchiolitis. PHYSICAL EXAMINATION: Pleasant healthy looking female in no acute distress. Temperature is 98.4, pulse 65. Oropharynx clear with no thrush. Heart normal S1, S2. No murmurs appreciated. Lungs distant with expiratory rhonchi bilaterally. Few inspiratory crackles and few wheezes. Abdomen morbidly obese, soft, nontender. Extremities no clubbing, cyanosis or edema. +2 dorsalis pedis pulses. No peripheral ulcerations. Neck is supple. No jugular venous distention (JVD). No bruits. Head and ENT cushingoid facies. Absent upper teeth. IMPRESSION: This is a 58-year-old female patient of Dr. Ambriz who has a history of bronchiectasis who has had multiple courses of steroids recently and exacerbation of bronchiectasis. The patient failed outpatient levofloxacin and is now admitted for IV antibiotics. She has improved with IV cefepime. I have reviewed Dr. Ambriz's note who stated that some of her issues are also related to her postnasal drip causing a flare-up of her bronchiectasis. PLAN: Once the patient is ready for discharge would suggest to switch her to cefdinir 300 mg p.o. b.i.d. to finish a 7-10 days course. I would obtain a procalcitonin level to document if this is truly bacterial in origin. I would suggest obtaining AFB smear and culture to rule out Mycobacterium avium complex or other atypical mycobacteria as the cause of most recent flare up and abnormal chest CT. Will discuss the case with Dr. Ambriz who is her primary production line mechanic. Thank you for the consult.
[2019-03-29] MEDS ORDERED: LEVEMIR (INSULIN DETEMIR) 1 UNITS/0.01ML SC SCH (21:00)
[2019-03-29 22:00] VITALS: BP 152/74
[2019-03-29] MEDS: ATORVASTATIN 20 MG TAB PO SCH (22:00)
[2019-03-29] MEDS: FAMOTIDINE 20 MG TAB PO SCH (22:01)
[2019-03-30] MEDS: IPRATROPIUM 0.5MG/ALBUTEROL 2.5MG INH SOL UD 3ML (DUONEB)(J7620) NEB SCH ×6 (03:53→23:42)
[2019-03-30 06:00] VITALS: BP 140/78
[2019-03-30] MEDS: HEPARIN SOD (PORCINE) 5000 UNITS/ML VIAL SC SCH ×3 (06:27→22:08)
[2019-03-30 06:48] LABS: HEMATOCRIT 37.7 % (36.0-47.0); MEAN CORPUSCULAR HEMOGLOBIN 30.5 pg (27.0-33.0); MEAN CORPUSCULAR HGB CONC 31.8 g/dl (32.0-36.5); MEAN CORPUSCULAR VOLUME 95.7 fl (80.0-96.0); PLATELET COUNT, AUTOMATED 246 10^3/uL (150-450); RED BLOOD COUNT 3.94 10^6/uL (4.00-5.40); WHITE BLOOD COUNT 10.9 10^3/uL (4.0-10.0)
[2019-03-30 07:07] LABS: ERYTHROCYTE SEDIMENTATION RATE 27 mm/hr (0-30)
[2019-03-30 07:17] LABS: BLOOD UREA NITROGEN 21 MG/DL (7-18); C REACTIVE PROTEIN QUANTITATIV < 0.30 MG/DL (0.00-0.30); CALCIUM LEVEL 9.1 MG/DL (8.5-10.1); CARBON DIOXIDE LEVEL 25 MEQ/L (21-32); CHLORIDE LEVEL 107 MEQ/L (98-107); CREATININE FOR GFR 0.86 MG/DL (0.55-1.30); GLOMERULAR FILTRATION RATE > 60.0 (>51); GLUCOSE, FASTING 111 MG/DL (70-100); POTASSIUM SERUM 4.2 MEQ/L (3.5-5.1); SODIUM LEVEL 140 MEQ/L (136-145)
[2019-03-30] MEDS: BUDESONIDE 0.5 MG/2 ML INHALATION SUSPENSION INH SCH ×2 (07:28→19:58)
[2019-03-30] MEDS: ENALAPRIL MALEATE 5 MG TAB PO SCH (08:42)
[2019-03-30] MEDS: DOCUSATE SODIUM 100 MG CAP PO SCH ×2 (08:43→22:17)
[2019-03-30] MEDS: PANTOPRAZOLE 40MG TAB (PROTONIX) PO SCH (08:43)
[2019-03-30] MEDS: rOPINIRole 1MG TAB PO SCH ×2 (08:43→22:05)
[2019-03-30] MEDS: guaiFENesin ER 600 MG TAB PO SCH ×2 (08:43→22:06)
[2019-03-30] MEDS: LORATADINE 10 MG TAB PO SCH (08:43)
[2019-03-30] MEDS: VITAMIN D 1,000 INTERNATIONAL UNITS TABLET PO SCH (08:43)
[2019-03-30] MEDS: predniSONE 20 MG TAB PO SCH (08:43)
[2019-03-30] MEDS: FERROUS SULFATE 325MG TAB PO SCH ×2 (08:43→22:06)
[2019-03-30] MEDS: TOPIRAMATE (TopAMAX) 100 MG TAB PO SCH ×2 (08:43→22:06)
[2019-03-30] MEDS: MYCOPHENOLATE MOFETIL 250 MG CAP (J7517) PO SCH ×2 (08:43→22:07)
[2019-03-30] MEDS: CitaloPRAM (CeleXA) 20 MG TAB PO SCH (08:43)
[2019-03-30] MEDS: GABAPENTIN 300 MG CAP PO SCH ×3 (08:43→22:06)
[2019-03-30] MEDS: PYRIDOSTIGMINE 60 MG TAB PO SCH ×4 (08:43→22:06)
[2019-03-30] MEDS: ASPIRIN 81 MG ENTERIC TAB PO SCH (08:44)
[2019-03-30] MEDS: CEFEPIME HCL 1 GM in D5W 50 ML IV SCH ×2 (08:44→22:08)
[2019-03-30] MEDS: CYANOCOBALAMIN 500 MCG TAB PO SCH (08:44)
[2019-03-30] MEDS: HumaLOG INSULIN (NovoLOG) PER UNIT SC SCH ×4 (08:44→22:04)
[2019-03-30] MEDS: MULTIVITAMINS/MINERALS THERAP 1 TAB PO SCH (08:44)
[2019-03-30] MEDS: AZELASTINE 137MCG NASAL SPY 30 ML (ASTELIN) SCH (08:58)
--- NOTE | 2019-03-30 09:59 | CCN ---
DATE: 03/30/2019 Ms. Connor is seen on the medical floor. She reports that she is continuing to feel better each day. She denies any fevers or chills. She states her breathing is better. She is on supplemental oxygen, which she states she is on at home as well. She is using C-PAP at night time, which she states she uses compliantly at home. She denies any other new issues or complaints. She is continuing with oral prednisone and IV antibiotics. She is getting DuoNebs and nebulized budesonide. PHYSICAL EXAMINATION: Vitals: Temperature is 97.1, pulse 78, respiratory rate 20, blood pressure is 147/92, pulse ox 96% on 2 liters. General: The patient is alert and oriented times three. She is sitting up in bed and speaks in complete sentences. HEENT: Head is normocephalic, atraumatic. Neck: Trachea is midline. Chest: The patient has wheezing and rhonchi on the right, greatest at the base. Heart: Regular rate and rhythm. S1, S2. No murmurs. Abdomen: Positive bowel sounds, soft, nontender. No rebound or guarding. No obvious organomegaly. Extremities: No clubbing, cyanosis or edema. Neurologic: Nonfocal grossly. LABORATORY DATA: WBC 10.9, hemoglobin 12.0, hematocrit 37.7, platelet 246. Sodium 140, potassium 4.2, chloride 107, carbon dioxide 25, BUN 21, creatinine 0.86, glucose 111, calcium 9.1, CRP less than 0.30 procalcitonin is pending. ASSESSMENT AND PLAN: 1. Bronchiectasis with exacerbation with mal clearance of secretions. The patient has a history of sputum with Enterobacter aerogenes She is currently on IV cefepime. Dr. Benites has been consulted and is following along as well. There currently is a microbacteria culture and acid fast stain pending. The patient will continue with C-PAP for sleep apnea.
[2019-03-30] MEDS: BREO ELLIPTA PO SCH (10:29)
[2019-03-30] MEDS: INCRUSE ELLIPTA 62.5 MCG INH SCH (10:30)
[2019-03-30 12:32] VITALS: O2SAT 100
[2019-03-30 12:34] VITALS: O2SAT 100
[2019-03-30] MEDS: rOPINIRole 0.25 MG TAB(REQUIP) PO SCH (12:37)
[2019-03-30 14:00] VITALS: BP 149/69
[2019-03-30 15:03] VITALS: O2SAT 99
--- NOTE | 2019-03-30 17:16 | IPNPDOC ---
Date Seen The patient was seen on 03/30/19. Progress Note SUBJECTIVE: Patient states that she breathes fine and even better than yesterday. Uses nighttime CPAP. Afebrile overnight. BS elevated, usually in evening. OBJECTIVE PHYSICAL EXAMINATION: VITAL SIGNS: Please see below. General: Alert, Eyes: Normal sclera, EOMI HENT: Atraumatic, neck supple Cardiovascular: Normal rate Pulmonary: Mild bibasilar coarse breath sounds. GI: Soft, nontender, nondistended Skin: Warm and dry Neuro: CN grossly intact. Psych: oriented x 3 LABORATORY DATA, IMAGING STUDIES, MICROBIOLOGY: Please see below. DVT prophylaxis ordered?: HSQ ASSESSMENT AND PLAN: 1. COPD exacerbation - c/w duonebs QID, prednisone. - O2 support as needed. - Pulmonology consulted. 2. SOB - PNA vs. worsening bronchiectasis - Recurrent treatment and diagnosis of PNA about 6x in the past 12 months. - Suspected 2/2 aspiration. Patient reports that she was told she had Aspiration PNA in the past but then later that she didn't after further evaluation by GI? - On cefepime currently. Sputum culture grew Enterobacter aerogenes, which is the same organism as found outpatient, has had several courses of aminoglycosides. - Pulm following. Recommend continue treatment for now. - ID following. Recommend obtaining AFB smear to rule out MAC and other atypical mycobacteria. Switch to Cefdinir 300 mg BID at discharge. 3. HTN c/w home med. 4. Suspected Afib? - Patient not aware of it, EKG does not show evidence of Afib this AM. 5. hx TIA - w/ R.sided residual weakness. - c/w home meds. 6. DM - takes 60 lantus at home. - Not controlled on Levemir 55, usually elevated in evening with good AM sugar. Changed to levemir 30 BID. ISS. 7. Myathenia Gravis chronic - c/w home med Mestinon, cellcept, vit B12. 8. Anxiety w/ depression - c/w Citalopram. VS, I&O, 24H, Fishbone Vital Signs/I&O Vital Signs Date Time Temp Pulse Resp B/P (MAP) Pulse Ox O2 Delivery O2 Flow Rate FiO2 03/30/19 15:03 99 Nasal Cannula 2.0 03/30/19 08:42 147/92 03/30/19 06:00 97.1 78 20 I&O- Last 24 Hours up to 6 AM 03/30/19 06:00 Intake Total 2200 ml Output Total 4775 ml Balance -2575 ml Laboratory Data 24H LABS Laboratory Tests 2 03/29/19 21:09: Bedside Glucose (Misc Panel) 224H 03/30/19 06:29: Nucleated Red Blood Cells % (auto) 0.0, Erythrocyte Sedimentation Rate 27, Anion Gap 8, Glomerular Filtration Rate > 60.0, Blood Urea Nitrogen 21H, Creatinine 0.86, Sodium Level 140, Potassium Level 4.2, Chloride Level 107, Carbon Dioxide Level 25, Calcium Level 9.1, C-Reactive Protein, Quantitative < 0.30, Procalcitonin 0.02 03/30/19 12:15: Bedside Glucose (Misc Panel) 141H 03/30/19 16:42: Bedside Glucose (Misc Panel) 292H CBC/BMP Laboratory Tests 03/30/19 06:29 Red Blood Count 3.94 L, Mean Corpuscular Volume 95.7, Mean Corpuscular Hemoglobin 30.5, Mean Corpuscular Hemoglobin Concent 31.8 L, Red Cell Distribution Width 14.2, Calcium Level 9.1 Microbiology Microbiology 03/26/19 Blood Culture - Preliminary, Resulted No Growth after 72 hours. All specime... 03/26/19 Blood Culture - Preliminary, Resulted No Growth after 72 hours. All specime... 03/30/19 Acid Fast Stain - Final, Resulted 03/30/19 Mycobacterial Culture, Resulted Pending 03/26/19 Gram Stain - Final, Complete 03/26/19 Sputum Culture - Final, Complete Enterobacter Aerogenes FRANCESCO CRUZ MD Mar 30, 2019 17:16
[2019-03-30] MEDS: MONTELUKAST 10 MG TAB PO SCH (17:43)
[2019-03-30 22:00] VITALS: BP 149/71
[2019-03-30] MEDS: FAMOTIDINE 20 MG TAB PO SCH (22:06)
[2019-03-30] MEDS: ATORVASTATIN 20 MG TAB PO SCH (22:06)
[2019-03-30] MEDS: LEVEMIR (INSULIN DETEMIR) 1 UNITS/0.01ML SC SCH (22:07)
[2019-03-31] MEDS: IPRATROPIUM 0.5MG/ALBUTEROL 2.5MG INH SOL UD 3ML (DUONEB)(J7620) NEB SCH ×6 (04:17→23:03)
[2019-03-31 06:00] VITALS: BP 111/59
[2019-03-31] MEDS: HEPARIN SOD (PORCINE) 5000 UNITS/ML VIAL SC SCH ×3 (06:41→21:23)
[2019-03-31 06:45] LABS: HEMATOCRIT 35.3 % (36.0-47.0); HEMOGLOBIN 11.3 g/dl (12.0-15.5); MEAN CORPUSCULAR HEMOGLOBIN 30.6 pg (27.0-33.0); MEAN CORPUSCULAR VOLUME 95.7 fl (80.0-96.0); PLATELET COUNT, AUTOMATED 260 10^3/uL (150-450); RED BLOOD COUNT 3.69 10^6/uL (4.00-5.40); WHITE BLOOD COUNT 10.3 10^3/uL (4.0-10.0)
[2019-03-31] MEDS: BUDESONIDE 0.5 MG/2 ML INHALATION SUSPENSION INH SCH ×2 (07:07→19:33)
[2019-03-31 07:09] LABS: BLOOD UREA NITROGEN 24 MG/DL (7-18); CALCIUM LEVEL 8.9 MG/DL (8.5-10.1); CARBON DIOXIDE LEVEL 25 MEQ/L (21-32); CHLORIDE LEVEL 107 MEQ/L (98-107); CREATININE FOR GFR 0.86 MG/DL (0.55-1.30); GLOMERULAR FILTRATION RATE > 60.0 (>51); GLUCOSE, FASTING 144 MG/DL (70-100); POTASSIUM SERUM 3.9 MEQ/L (3.5-5.1); SODIUM LEVEL 139 MEQ/L (136-145)
[2019-03-31] MEDS: LEVEMIR (INSULIN DETEMIR) 1 UNITS/0.01ML SC SCH ×2 (08:27→21:24)
[2019-03-31] MEDS: HumaLOG INSULIN (NovoLOG) PER UNIT SC SCH ×4 (08:27→21:00)
[2019-03-31] MEDS: CitaloPRAM (CeleXA) 20 MG TAB PO SCH (08:28)
[2019-03-31] MEDS: predniSONE 20 MG TAB PO SCH (08:28)
[2019-03-31] MEDS: guaiFENesin ER 600 MG TAB PO SCH ×2 (08:28→21:38)
[2019-03-31] MEDS: LORATADINE 10 MG TAB PO SCH (08:28)
[2019-03-31] MEDS: CEFEPIME HCL 1 GM in D5W 50 ML IV SCH ×2 (08:28→21:25)
[2019-03-31] MEDS: DOCUSATE SODIUM 100 MG CAP PO SCH ×2 (08:29→21:25)
[2019-03-31] MEDS: VITAMIN D 1,000 INTERNATIONAL UNITS TABLET PO SCH (08:29)
[2019-03-31] MEDS: FERROUS SULFATE 325MG TAB PO SCH ×2 (08:29→21:25)
[2019-03-31] MEDS: ASPIRIN 81 MG ENTERIC TAB PO SCH (08:29)
[2019-03-31] MEDS: PANTOPRAZOLE 40MG TAB (PROTONIX) PO SCH (08:29)
[2019-03-31] MEDS: MYCOPHENOLATE MOFETIL 250 MG CAP (J7517) PO SCH ×2 (08:29→21:25)
[2019-03-31] MEDS: rOPINIRole 1MG TAB PO SCH ×2 (08:29→21:38)
[2019-03-31] MEDS: ENALAPRIL MALEATE 5 MG TAB PO SCH (08:30)
[2019-03-31] MEDS: GABAPENTIN 300 MG CAP PO SCH ×3 (08:30→21:26)
[2019-03-31] MEDS: MULTIVITAMINS/MINERALS THERAP 1 TAB PO SCH (08:30)
[2019-03-31] MEDS: CYANOCOBALAMIN 500 MCG TAB PO SCH (08:30)
[2019-03-31] MEDS: TOPIRAMATE (TopAMAX) 100 MG TAB PO SCH ×2 (08:30→21:38)
[2019-03-31] MEDS: PYRIDOSTIGMINE 60 MG TAB PO SCH ×4 (08:30→21:25)
[2019-03-31] MEDS: AZELASTINE 137MCG NASAL SPY 30 ML (ASTELIN) SCH (08:33)
[2019-03-31] MEDS: BREO ELLIPTA PO SCH (10:52)
[2019-03-31] MEDS: INCRUSE ELLIPTA 62.5 MCG INH SCH (10:54)
--- NOTE | 2019-03-31 11:50 | IPN ---
DATE OF SERVICE: 03/30/2019 She is anxious to go home tomorrow. She states she is feeling better today. She is still on oxygen at 2 liters; was saturating about 99% to 100%. She has had no fever or chills. Her cough is productive of whitish to yellowish phlegm. The amount of sputum production has decreased, and the color has improved. She is on prednisone and intravenous (IV) antibiotics, as well as DuoNebs. On physical examination, temperature is 97.1, oxygen (O2) saturation 96% on 2 liters. Heart: Normal S1, S2. No murmurs. Lungs: Decreased breath sounds with decreased air entry with wheezing and rhonchi in the right upper lobe and left base. Abdomen: Obese, soft, nontender. Extremities: No clubbing, cyanosis, or edema. LABORATORIES: White count 10.9, hemoglobin 12, hematocrit 37.7, platelets 246. ESR 27, procalcitonin 0.02, CRP less than 0.3. Sodium of 148, potassium 4.2, chloride 107, bicarbonate 25, BUN 21, creatinine 0.86, glucose 111. MEDICATIONS: - Currently day #5 of IV cefepime IMPRESSION: 1. Bronchiectasis with acute exacerbation and malclearance of secretions. She had a sputum culture with Enterobacter aerogenes. The patient is currently day #5 of IV cefepime. Procalcitonin is normal. Erythrocyte sedimentation rate (ESR) and C-reactive protein (CRP) are normal. I doubt this is a bacterial infection causing this exacerbation; and, therefore, IV cefepime could be discontinued. I do not think the patient needs to go home on oral antibiotics. 2. Abnormal chest CT with some nodular bronchiectatic findings. I have ordered sputum for atypical mycobacteria due to the fact there were bilateral infiltrates, and the patient has had at least ten different hospitalizations in the past year. Please obtain another sputum for acid-fast bacillus (AFB) to rule out Mycobacterium, atypical mycobacteria in the morning. PLAN: Discontinue IV cefepime on discharge. I would not recommend oral antibiotics. Please obtain another sputum for AFB before discharge tomorrow. If sputum grows for Mycobacterium, then the patient will need followup at my office. Otherwise, she will followup with Dr. Ambriz's office. JUN
[2019-03-31] MEDS: rOPINIRole 0.25 MG TAB(REQUIP) PO SCH (13:05)
[2019-03-31 14:00] VITALS: BP 151/79
[2019-03-31] MEDS: MONTELUKAST 10 MG TAB PO SCH (17:43)
--- NOTE | 2019-03-31 17:49 | IPNPDOC ---
Date Seen The patient was seen on 03/31/19. Progress Note SUBJECTIVE: Patient feels well, no dyspnea. WBC 10.3. Afebrile overnight. BS still elevated in 200s. OBJECTIVE PHYSICAL EXAMINATION: VITAL SIGNS: Please see below. General: Alert, Eyes: Normal sclera, EOMI HENT: Atraumatic, neck supple Cardiovascular: Normal rate Pulmonary: Mild bibasilar coarse breath sounds. GI: Soft, nontender, nondistended Skin: Warm and dry Neuro: CN grossly intact. Psych: oriented x 3 LABORATORY DATA, IMAGING STUDIES, MICROBIOLOGY: Please see below. DVT prophylaxis ordered?: HSQ ASSESSMENT AND PLAN: 1. COPD exacerbation - c/w duonebs QID, prednisone 5 day course. - O2 support as needed. - Pulmonology following. 2. SOB - PNA vs. worsening bronchiectasis - Recurrent treatment and diagnosis of PNA about 6x in the past 12 months. - ID and Pulm following. Recommend obtaining AFB smear to rule out MAC and other atypical mycobacteria. - Normal ESR and CRP. Recommend d/c cefepime on discharge, would not need PO abx either. - obtain 3rd sample tomorrow and plan to discharge after. 3. HTN c/w home med. 4. Suspected Afib? - Patient not aware of it, EKG does not show evidence of Afib. 5. hx TIA - w/ R.sided residual weakness. - c/w home meds. 6. DM - takes 60 lantus at home. - Not controlled on Levemir 55, usually elevated in evening with good AM sugar. Changed to levemir 35 BID. ISS. 7. Myathenia Gravis chronic - c/w home med Mestinon, cellcept, vit B12. 8. Anxiety w/ depression - c/w Citalopram. VS, I&O, 24H, Fishbone Vital Signs/I&O Vital Signs Date Time Temp Pulse Resp B/P (MAP) Pulse Ox O2 Delivery O2 Flow Rate FiO2 03/31/19 15:23 Nasal Cannula 2.0 03/31/19 14:00 98.8 89 13 151/79 (103) 95 I&O- Last 24 Hours up to 6 AM 03/31/19 06:00 Intake Total 1280 ml Output Total 2550 ml Balance -1270 ml Laboratory Data 24H LABS Laboratory Tests 2 03/30/19 21:51: Bedside Glucose (Misc Panel) 179H 03/31/19 06:19: Nucleated Red Blood Cells % (auto) 0.0, Anion Gap 7L, Glomerular Filtration Rate > 60.0, Blood Urea Nitrogen 24H, Creatinine 0.86, Sodium Level 139, Potassium Level 3.9, Chloride Level 107, Carbon Dioxide Level 25, Calcium Level 8.9 03/31/19 12:58: Bedside Glucose (Misc Panel) 231H 03/31/19 16:27: Bedside Glucose (Misc Panel) 265H CBC/BMP Laboratory Tests 03/31/19 06:19 Red Blood Count 3.69 L, Mean Corpuscular Volume 95.7, Mean Corpuscular Hemoglobin 30.6, Mean Corpuscular Hemoglobin Concent 32.0, Red Cell Distribution Width 14.2, Calcium Level 8.9 Microbiology Microbiology 03/26/19 Blood Culture - Preliminary, Resulted No Growth after 72 hours. All specime... 03/26/19 Blood Culture - Final, Complete NO GROWTH AFTER 5 DAYS 03/31/19 Acid Fast Stain - Final, Resulted 03/31/19 Mycobacterial Culture, Resulted Pending 03/30/19 Acid Fast Stain - Final, Resulted 03/30/19 Mycobacterial Culture, Resulted Pending 03/26/19 Gram Stain - Final, Complete 03/26/19 Sputum Culture - Final, Complete Enterobacter Aerogenes FRANCESCO CRUZ MD Mar 31, 2019 17:49
[2019-03-31] MEDS: ATORVASTATIN 20 MG TAB PO SCH (21:25)
[2019-03-31] MEDS: FAMOTIDINE 20 MG TAB PO SCH (21:26)
[2019-03-31 22:00] VITALS: BP 150/81
[2019-04-01 02:00] VITALS: BP 150/83
[2019-04-01] MEDS: IPRATROPIUM 0.5MG/ALBUTEROL 2.5MG INH SOL UD 3ML (DUONEB)(J7620) NEB SCH ×3 (04:10→11:02)
[2019-04-01 06:00] VITALS: BP 150/83
[2019-04-01] MEDS: HEPARIN SOD (PORCINE) 5000 UNITS/ML VIAL SC SCH (06:23)
[2019-04-01 06:29] LABS: HEMATOCRIT 36.6 % (36.0-47.0); HEMOGLOBIN 11.6 g/dl (12.0-15.5); MEAN CORPUSCULAR HEMOGLOBIN 30.9 pg (27.0-33.0); MEAN CORPUSCULAR HGB CONC 31.7 g/dl (32.0-36.5); MEAN CORPUSCULAR VOLUME 97.3 fl (80.0-96.0); PLATELET COUNT, AUTOMATED 238 10^3/uL (150-450); RED BLOOD COUNT 3.76 10^6/uL (4.00-5.40); WHITE BLOOD COUNT 10.7 10^3/uL (4.0-10.0)
[2019-04-01 06:53] LABS: BLOOD UREA NITROGEN 24 MG/DL (7-18); CARBON DIOXIDE LEVEL 25 MEQ/L (21-32); CHLORIDE LEVEL 106 MEQ/L (98-107); GLOMERULAR FILTRATION RATE > 60.0 (>51); GLUCOSE, FASTING 142 MG/DL (70-100); POTASSIUM SERUM 3.8 MEQ/L (3.5-5.1); SODIUM LEVEL 139 MEQ/L (136-145)
[2019-04-01] MEDS: BUDESONIDE 0.5 MG/2 ML INHALATION SUSPENSION INH SCH (07:41)
[2019-04-01] MEDS: HumaLOG INSULIN (NovoLOG) PER UNIT SC SCH (08:05)
[2019-04-01 08:06] VITALS: BP 174/73
[2019-04-01] MEDS: CEFEPIME HCL 1 GM in D5W 50 ML IV SCH (08:06)
[2019-04-01] MEDS: ENALAPRIL MALEATE 5 MG TAB PO SCH (08:06)
[2019-04-01] MEDS: predniSONE 20 MG TAB PO SCH (08:06)
[2019-04-01] MEDS: LEVEMIR (INSULIN DETEMIR) 1 UNITS/0.01ML SC SCH (08:06)
[2019-04-01] MEDS: rOPINIRole 1MG TAB PO SCH (08:07)
[2019-04-01] MEDS: CitaloPRAM (CeleXA) 20 MG TAB PO SCH (08:07)
[2019-04-01] MEDS: TOPIRAMATE (TopAMAX) 100 MG TAB PO SCH (08:07)
[2019-04-01] MEDS: PYRIDOSTIGMINE 60 MG TAB PO SCH (08:07)
[2019-04-01] MEDS: VITAMIN D 1,000 INTERNATIONAL UNITS TABLET PO SCH (08:07)
[2019-04-01] MEDS: CYANOCOBALAMIN 500 MCG TAB PO SCH (08:07)
[2019-04-01] MEDS: GABAPENTIN 300 MG CAP PO SCH (08:07)
[2019-04-01] MEDS: DOCUSATE SODIUM 100 MG CAP PO SCH (08:07)
[2019-04-01] MEDS: FERROUS SULFATE 325MG TAB PO SCH (08:07)
[2019-04-01] MEDS: ASPIRIN 81 MG ENTERIC TAB PO SCH (08:07)
[2019-04-01] MEDS: PANTOPRAZOLE 40MG TAB (PROTONIX) PO SCH (08:07)
[2019-04-01] MEDS: MYCOPHENOLATE MOFETIL 250 MG CAP (J7517) PO SCH (08:07)
[2019-04-01] MEDS: guaiFENesin ER 600 MG TAB PO SCH (08:07)
[2019-04-01] MEDS: MULTIVITAMINS/MINERALS THERAP 1 TAB PO SCH (08:07)
[2019-04-01] MEDS: LORATADINE 10 MG TAB PO SCH (08:08)
[2019-04-01] MEDS: AZELASTINE 137MCG NASAL SPY 30 ML (ASTELIN) SCH (08:08)
[2019-04-01] MEDS: INCRUSE ELLIPTA 62.5 MCG INH SCH (08:19)
[2019-04-01] MEDS: BREO ELLIPTA PO SCH (08:19)
--- NOTE | 2019-04-01 11:02 | DS.PDOC ---
Discharge Summary General Date of Admission Mar 27, 2019 at 04:09 Date of Discharge 04/01/19 Discharge Summary PROCEDURES PERFORMED DURING STAY: [None]. ADMITTING DIAGNOSES: 1. COPD exacerbation 2. Pneumonia 3. HTN 4. A fib 5. Bronchiectasis chronic 6. hx TIA 7. DM 8. Myasthenia gravis 9. Anxiety and Depression 10. osteoporosis DISCHARGE DIAGNOSES: 1. COPD exacerbation 2. Pneumonia 3. HTN 4. A fib 5. Bronchiectasis chronic 6. hx TIA 7. DM 8. Myasthenia gravis 9. Anxiety and Depression 10. osteoporosis 11. Resolved dysphagia COMPLICATIONS/CHIEF COMPLAINT: Lobular Pneumonia. HISTORY OF PRESENT ILLNESS: "58-year-old female arrives at [facility] ED with complaints of shortness of breath, headaches, and cough that started approximately 3-4 days ago when she went to another emergency room for the same symptoms. She then reports she went to her plant maintenance mechanic were she received levofloxacin antibiotic 500 mg 1 tablet a day plus steroids taking both medications for 3 days without any improvement. Patient reports her shortness of breath became worse today and she knew she had to come into the emergency room as she he could not take a deep breath, was taking her Pulmicort 2 times a day and DuoNeb 4 times a day without relief. She denies having body aches, chills, fever, diarrhea, nausea and vomiting. She has a significant medical history of atrial fibrillation, anxiety and depression, osteoporosis, myasthenia gravis, GERD, restless leg syndrome, essential hypertension, COPD on CPAP at 9 at home with continuous oxygen 2 L per nasal cannula continuous, TIA with right-sided weakness, diabetes mellitus type 2, insulin-dependent, Vitamin D deficiency. She also reports that she had testing done at [facility] where they diagnosed her with having aspiration on liquids and she had another test in [place], which is also diagnosed with aspiration and then she reports another physicians that she didn't have aspiration. Also patient is having aspiration pneumonia. She reports she has had pneumonia approximately up to 6 times in the last 12 months. Due to patient's comorbidities, marked shortness of breath, and results from CT chest her admission status will change from observation to inpatient with IV antibiotics, cefepime 1 g IV every 12 hours as she felled outpatient oral treatment with antibiotic levofloxacin and steroids. She'll be admitted to Med-Surg under ho spitalist services." HOSPITAL COURSE: Patient was treated with antibiotics and steroids with improvement in symptoms. Was also evaluated by pulmonology who had patient started on EZPAP PEP therapy and percussion vest to help clear secretions which seem to helped patient significantly. Her symptoms resolved and she no longer reports any symptoms. Was also seen by ID as her sputum culture grew Enterobacter Aerogenes, which was the same organism that she had as outpatient with Pulm and had more than one course of treatment for it already. Workup by ID not suggestive of active bacterial infection and patient have been on IV Cefepime for the 6th day today, does not recommend further Abx. AFB also performed to r/o MAC and other atypical mycobacteria. Initial sample negative, 2 more are obtained at this time. Will discharge patient to f/u PMD and Dr. Ambriz. If any is positive, then f/u with Dr. Benites, otherwise can just follow up with Dr. Ambriz. Also noted to have some oozing this morning from heparin injections but had since stopped. Does have bruising in lower abdomen. Advised to monitor and if bleeding recurs and persistent to come back to the ER for monitoring. DISCHARGE MEDICATIONS: Please see below. ALLERGIES: Please see below. PHYSICAL EXAMINATION ON DISCHARGE: VITAL SIGNS: Please see below. General: Alert, Eyes: Normal sclera, EOMI HENT: Atraumatic, neck supple Cardiovascular: Normal rate Pulmonary: Mild bibasilar coarse breath sounds. GI: Soft, nontender, nondistended Skin: Warm and dry. Diffuse bruising in lower abdomen with several overlying small bandages. Neuro: CN grossly intact. Psych: oriented x 3 LABORATORY DATA: Please see below. IMAGING: CXR- Impression: Minor atelectasis in the left costophrenic angle. Chest CT- IMPRESSION: 1. Bronchiectasis in the left lower lobe and to lesser degree the right lower lobe. 2. Several small foci of patchy parenchymal infiltration demonstrated in the posterior segment of the right upper lobe and left lower lobe. Findings may represent multifocal pneumonitis. 3. Small cystic foci demonstrated in the subpleural aspect of the posterior segment of the left upper lobe associated with a few small nodular densities. Findings consistent with foci of peripheral airway disease. 4. Few small scattered foci of 'tree in bud' infiltrates are demonstrated in the subpleural lung zones bilaterally consistent with alveolitis/terminal bronchiolitis. The spine demonstrates mild degenerative changes. 5. There has been a cholecystectomy. ACTIVITY: [As tolerated]. DIET: Regular DISCHARGE PLAN: f/u PMD and Pulm f/u AFB sputum results, if any is possible then f/u with dr. Benites, otherwise just Dr. Ambriz DISPOSITION: Home. DISCHARGE INSTRUCTIONS: f/u PMD and Pulm f/u AFB sputum results, if any is possible then f/u with dr. Benites, otherwise just Dr. Ambriz ITEMS TO FOLLOWUP ON ON OUTPATIENT: AFB sputum cultures DISCHARGE CONDITION: [Stable]. TIME SPENT ON DISCHARGE: 35 minutes. Vital Signs/I&Os Vital Signs Date Time Temp Pulse Resp B/P (MAP) Pulse Ox O2 Delivery O2 Flow Rate FiO2 04/01/19 08:06 174/73 04/01/19 06:00 98.2 70 12 98 04/01/19 04:10 BIPAP/CPAP 2.0 I&O- Last 24 Hours up to 6 AM 04/01/19 06:00 Intake Total 3000 ml Output Total 3550 ml Balance -550 ml Laboratory Data Labs 24H Laboratory Tests 2 03/31/19 12:58: Bedside Glucose (Misc Panel) 231H 03/31/19 16:27: Bedside Glucose (Misc Panel) 265H 03/31/19 20:39: Bedside Glucose (Misc Panel) 153H 04/01/19 06:11: Nucleated Red Blood Cells % (auto) 0.0, Anion Gap 8, Glomerular Filtration Rate > 60.0, Blood Urea Nitrogen 24H, Creatinine 0.90, Sodium Level 139, Potassium Level 3.8, Chloride Level 106, Carbon Dioxide Level 25, Calcium Level 9.0 CBC/BMP Laboratory Tests 04/01/19 06:11 Red Blood Count 3.76 L, Mean Corpuscular Volume 97.3 H, Mean Corpuscular Hemoglobin 30.9, Mean Corpuscular Hemoglobin Concent 31.7 L, Red Cell Distribution Width 14.3, Calcium Level 9.0 FSBS Laboratory Tests Test 03/31/19 12:58 03/31/19 16:27 03/31/19 20:39 Range/Units Bedside Glucose (Misc Panel) 231 265 153 70-105 MG/DL Microbiology Microbiology 03/26/19 Blood Culture - Final, Complete NO GROWTH AFTER 5 DAYS 03/26/19 Blood Culture - Final, Complete NO GROWTH AFTER 5 DAYS 04/01/19 Acid Fast Stain, Received Pending 04/01/19 Mycobacterial Culture, Received Pending 03/31/19 Acid Fast Stain - Final, Resulted 03/31/19 Mycobacterial Culture, Resulted Pending 03/30/19 Acid Fast Stain - Final, Resulted 03/30/19 Mycobacterial Culture, Resulted Pending 03/26/19 Gram Stain - Final, Complete 03/26/19 Sputum Culture - Final, Complete Enterobacter Aerogenes Discharge Medications Scheduled Aspirin (Aspir 81) 81 Mg Tablet.dr, 81 MG PO DAILY, (Reported) Atorvastatin Calcium (Lipitor) 20 Mg Tab, 40 MG PO QHS, (Reported) Azelastine HCl (Azelastine HCl) 0.15 % Spr, 2 SPRAY NARES DAILY, (Reported) Budesonide (Budesonide) 0.5 Mg/2 Ml Ampul.neb, 1 VIAL NEB BID, (Reported) Cholecalciferol (Vitamin D3) (Vitamin D3) 1,000 Unit Cap, 1,000 UNIT PO DAILY, (Reported) Citalopram Hydrobromide (Citalopram HBr) 40 Mg Tab, 40 MG PO DAILY, (Reported) Cyanocobalamin (Vitamin B-12) (Vitamin B-12) 1,000 Mcg Tab, 1,000 MCG PO DAILY, (Reported) Enalapril Maleate (Enalapril Maleate) 2.5 Mg Tab, 2.5 MG PO DAILY, (Reported) Ergocalciferol (Vitamin D2) (Drisdol) 50,000 Unit Cap, 50,000 UNIT PO QWEEK, (Reported) WEDNESDAYS Esomeprazole Magnesium (Esomeprazole Magnesium) 40 Mg Capsule.dr, 40 MG PO BID, (Reported) Ferrous Sulfate (Ferrous Sulfate) 325 Mg Tablet, 325 MG PO BID, (Reported) Fluticasone/Vilanterol (Breo Ellipta 200-25 Mcg INH) 1 Inh Inh, 1 PUFF INH DAILY, (Reported) Gabapentin (Gabapentin) 300 Mg Cap, 300 MG PO TID, (Reported) Immun Glob G(IgG)/Pro/Iga 0-50 (Hizentra 10 Gram/50 ml Vial) 10 Gm/50 Ml Inj, 20 GM SC 1XWK, (Reported) SATURDAYS Insulin Glargine,Hum.rec.anlog (Basaglar Kwikpen U-100) 100 Unit/1 Ml Insuln.pen, 60 UNIT SC QHS, (Reported) Insulin Lispro (Admelog Solostar) 100 Unit/1 Ml Insuln.pen, 1 DOSE SC ACHS, (Reported) PER SLIDING SCALE Levofloxacin (Levofloxacin) 500 Mg Tablet, 500 MG PO DAILY, (Reported) FILLED 03/23 FOR 7 DAYS Loratadine (Loratadine) 10 Mg Tablet, 10 MG PO DAILY, (Reported) Montelukast Sodium (Singulair) 10 Mg Tab, 10 MG PO QPM, (Reported) DINNER TIME Multivitamins (Thera M Plus Tablet) 1 Tab Tab, 1 TAB PO DAILY, (Reported) Mycophenolate Mofetil (Cellcept) 500 Mg Tab, 1,000 MG PO BID, (Reported) Pyridostigmine [place] (Mestinon) 60 Mg Tab, 60 MG PO QID, (Reported) Ranitidine Hcl (Ranitidine HCl) 150 Mg Tab, 2 TAB PO QHS, (Reported) Ropinirole HCl (Ropinirole HCl) 1 Mg Tab, 1 MG PO BID, (Reported) TAKES AM/HS Ropinirole HCl (Ropinirole HCl) 0.5 Mg Tab, 0.5 MG PO DAILY, (Reported) TAKES AT 1200 Topiramate (Topiramate) 50 Mg Tab, 100 MG PO BID, (Reported) Umeclidinium [place] (Incruse Ellipta) 62.5 Mcg Blst.w.dev, 1 PUFF INH DAILY, (Reported) Scheduled PRN Albuterol Sulfate (Ventolin Hfa) 18 Gm Hfa.aer.ad, 2 PUFF INH Q4H PRN for SHORTNESS OF BREATH, (Reported) Ipratropium/Albuterol Sulfate (Iprat-Albut 0.5-3(2.5) mg/3 ml) 1 Valerie Valerie, 1 NEB INH QID PRN for SHORTNESS OF BREATH, (Reported) Allergies Coded Allergies: metformin (Verified Allergy, Severe, ANAPHALAXIS, 03/26/19) Sulfa (Sulfonamide Antibiotics) (Verified Allergy, Intermediate, HIVES, 03/26/19) fluoxetine (Verified Allergy, Unknown, 03/26/19) niacin (Verified Allergy, Unknown, 03/26/19) metoclopramide (Verified Adverse Reaction, Intermediate, TREMORS, 03/26/19) FRANCESCO CRUZ MD Apr 01, 2019 11:02
== END 2019-04-01 12:36 | disposition home or self-care (01) | DRG 139 ==
LOC: M ED 15:17 → M ED INP 15:18 → M MSPAV 20:58 → M ED INP 22:31 → M MSPAV 22:55 → OBSVTOIN 03-27 04:09
PROVIDERS: ADMIT Internal Medicine; ATTEND Student in an Organized Health Care Education/Training Program
DX: J18.9 Pneumonia, unspecified organism (principal); J96.11 Chronic respiratory failure with hypoxia; G70.00 Myasthenia gravis without (acute) exacerbation; J44.1 Chronic obstructive pulmonary disease with (acute) exacerbation; I48.2 Chronic atrial fibrillation; J45.901 Unspecified asthma with (acute) exacerbation; G25.81 Restless legs syndrome; E55.9 Vitamin D deficiency, unspecified; I69.991 Dysphagia following unspecified cerebrovascular disease; K21.9 Gastro-esophageal reflux disease without esophagitis; F41.9 Anxiety disorder, unspecified; F32.9 Major depressive disorder, single episode, unspecified; E11.9 Type 2 diabetes mellitus without complications; M81.0 Age-related osteoporosis without current pathological fracture; Z86.73 Personal history of transient ischemic attack (TIA), and cerebral infarction without residual deficits; Z79.82 Long term (current) use of aspirin; Z79.899 Other long term (current) drug therapy; Z79.4 Long term (current) use of insulin; Z88.2 Allergy status to sulfonamides; Z88.8 Allergy status to other drugs, medicaments and biological substances; G47.33 Obstructive sleep apnea (adult) (pediatric)

== ENCOUNTER → 2019-04-04 | Outpatient (REF) | payer OTHER ==
[~2019-04-04] MED LIST changes: +ADME100I2 SC; +BASA100I SC; +BUDE0.5S6 NEB; +ESOM1CAP5 PO; +FERR1TAB8 PO; +INCR1INH INH; +LEVO500T3 PO; +LORA-674 PO; +VENTAER INH
[2019-04-11 00:08] LABS: ACETYLCHOLINE RCPTOR BINDING A < 0.03 nmol/L (0.00-0.24); STRIATIONAL ANTIBODIES Negative (Neg:<1:40)
== END ==
LOC: M LABNEURO 11:42
PROVIDERS: ATTEND Psychiatry & Neurology Neurology
DX: G70.00 Myasthenia gravis without (acute) exacerbation (principal)

== ENCOUNTER → 2019-04-11 | Outpatient (REF) | payer OTHER | LOC: M LAB REF 12:55 | PROVIDERS: ATTEND Nurse Practitioner Family | DX: R06.00 Dyspnea, unspecified (principal) ==

== ENCOUNTER 2019-04-22 09:01 | Inpatient (IN) | payer OTHER ==
[~2019-04-22] VITALS: Ht 160 cm; Wt 118.1 kg
[2019-04-22] VITALS (7 sets, daily range): BP systolic 113–140; BP diastolic 57–78; O2SAT 96
[2019-04-22] MEDS: INCRUSE ELLIPTA 62.5 MCG INH SCH (08:00)
[2019-04-22] MEDS: BREO ELLIPTA INH SCH (08:00)
[2019-04-22] MEDS: ENALAPRIL MALEATE 5 MG TAB PO SCH (09:00)
[2019-04-22] MEDS ORDERED: ACET-897 PO (09:18)
[2019-04-22] MEDS: IPRATROPIUM 0.5MG/ALBUTEROL 2.5MG INH SOL UD 3ML (DUONEB)(J7620) NEB SCH ×3 (10:21→11:08)
[2019-04-22 10:22] LABS: ABG BASE EXCESS -2.5 (-2.0-2.0); ABG HCO3 19.8 MEQ/L (22.0-26.0); ABG O2 SATURATION 94.9 % (95.0-99.0); ABG PARTIAL PRESSURE CO2 27.6 mmHg (35.0-45.0); ABG STANDARD HCO3 22.3 MEQ/L (22.0-26.0); ABG TOTAL CO2 20.6 MEQ/L (22.0-29.0); ABG pH (ARTERIAL) 7.473 UNITS (7.350-7.450)
--- NOTE | 2019-04-22 10:24 | REP ---
REASON FOR EXAM: Cough and dyspnea. COMPARISON: Multiple, the latest 03/27/2019. There is a discoid opacity in the left lower lobe likely plate-like atelectasis. A few additional streaky opacities are in the left lower lobe and essentially unchanged from the prior exam. The right lung is clear. The heart is not enlarged. The osseous structures are stable and intact. IMPRESSION: Subsegmental atelectatic changes of the left lower lobe suspected, however, correlate clinically to assess for possible developing pneumonia. Electronically Signed by Martin Watson DO 04/22/2019 10:57 A
[2019-04-22] MEDS: methylPREDNISolone INJ 125 MG/2 ML VIAL (J2930) IV ONE ×2 (10:40→11:05)
[2019-04-22 10:59] LABS: BASO # 0.1 10^3/uL (0.0-0.2); BASO % 0.9 % (0.0-1.0); EOS # 0.1 10^3/uL (0.0-0.5); EOS % 0.5 % (0.0-3.0); HEMATOCRIT 39.3 % (36.0-47.0); HEMOGLOBIN 12.5 g/dl (12.0-15.5); LYMPH # 2.3 10^3/uL (1.5-5.0); LYMPH % 18.1 % (24.0-44.0); MEAN CORPUSCULAR HEMOGLOBIN 30.2 pg (27.0-33.0); MEAN CORPUSCULAR HGB CONC 31.8 g/dl (32.0-36.5); MEAN CORPUSCULAR VOLUME 94.9 fl (80.0-96.0); MONO # 1.4 10^3/uL (0.0-0.8); MONO % 10.7 % (0.0-5.0); NEUTROPHILS # 8.6 10^3/uL (1.5-8.5); NEUTROPHILS % 67.4 % (36.0-66.0); PLATELET COUNT, AUTOMATED 332 10^3/uL (150-450); RED BLOOD COUNT 4.14 10^6/uL (4.00-5.40); WHITE BLOOD COUNT 12.8 10^3/uL (4.0-10.0)
[2019-04-22 11:21] LABS: CALCIUM LEVEL 8.6 MG/DL (8.5-10.1); CREATININE FOR GFR 1.1 MG/DL (0.55-1.30); GLOMERULAR FILTRATION RATE 54.1 (>51); POTASSIUM SERUM 3.7 MEQ/L (3.5-5.1)
[2019-04-22] MEDS: rOPINIRole 0.25 MG TAB(REQUIP) PO SCH (12:00)
--- NOTE | 2019-04-22 12:33 | REP ---
REASON FOR EXAM: Abnormal opacities seen on plain film exam obtained earlier today. The lack of intravenous contrast decreases the sensitivity of the exam. Latest prior chest CT for comparison is 03/26/2019 with older priors also reviewed. Mediastinal adenopathy has developed since the last exam. I cannot accurately assess for hilar adenopathy since no intravenous contrast was administered. No gross adenopathy is suspected. There is a small pericardial effusion. There are small bilateral pleural effusions. The imaged upper abdomen and imaged osseous structures are unchanged. Evaluation of the lung miller show heavy bibasilar asymmetric opacities which represent a significant change compared to the prior exam. A few other scattered opacities are seen throughout the lung miller particularly in the lingula and all representing a change from the prior exam. There is cylindrical bronchiectasis status quo. IMPRESSION: 1. Abnormal lung field opacities have developed since the last exam most consistent with pneumonia. This needs to be correlated clinically. 2. Chronic lung field changes with significant cylindrical bronchiectasis status quo. 3. Adenopathy as described above. 4. Tiny pericardial effusion. Electronically Signed by Martin Watson DO 04/22/2019 12:49 P
[2019-04-22] MEDS ORDERED: VITA500045 PO (13:10)
[2019-04-22] MEDS ORDERED: PRED10TA2 PO (13:10)
[2019-04-22] MEDS ORDERED: ACETAMINOPHEN TAB 650MG DOSE (2X325MG) PO ONE (13:30)
[2019-04-22] MEDS ORDERED: NS 1,000 ML IV SCH (13:45)
[2019-04-22] MEDS ORDERED: ACETAMINOPHEN TAB 650MG DOSE (2X325MG) PO PRN (13:45)
[2019-04-22] MEDS ORDERED: DEXTROSE 50% 50 ML SYRINGE IV PRN (14:00)
[2019-04-22] MEDS ORDERED: GLUCAGON FOR INJ 1 MG VIAL (J1610) SC PRN (14:00)
[2019-04-22] MEDS ORDERED: GLUCOSE 4 GM CHEW TABLET PO PRN (14:00)
[2019-04-22] MEDS ORDERED: RIFAMPIN IV SCH ×2 (14:15→16:00)
[2019-04-22] MEDS ORDERED: NS IV SCH ×2 (14:15→16:00)
[2019-04-22] MEDS: ASPIRIN 81 MG ENTERIC TAB PO SCH (14:34)
[2019-04-22] MEDS: CYANOCOBALAMIN 500 MCG TAB PO SCH (14:34)
[2019-04-22] MEDS: LORATADINE 10 MG TAB PO SCH (14:34)
[2019-04-22] MEDS: CitaloPRAM (CeleXA) 20 MG TAB PO SCH (14:34)
[2019-04-22] MEDS: MULTIVITAMINS/MINERALS THERAP 1 TAB PO SCH (14:34)
[2019-04-22] MEDS: HEPARIN SOD (PORCINE) 5000 UNITS/ML VIAL SC SCH ×2 (14:36→22:20)
[2019-04-22] MEDS ORDERED: AZITHROMYCIN INJ 500 MG, VIAL MATE ADAPTER 1 EACH in D5W 250 ML IV ONE (15:00)
[2019-04-22] MEDS: IPRATROPIUM 0.5MG/ALBUTEROL 2.5MG INH SOL UD 3ML (DUONEB)(J7620) INH SCH ×2 (15:13→20:23)
[2019-04-22] MEDS ORDERED: ALBUTEROL SULFATE 2.5 MG/0.5 ML INH NEB SOLN NEB PRN (16:45)
--- NOTE | 2019-04-22 16:58 | HPEPDOC ---
General Date of Admission Apr 22, 2019 at 13:36 Date of Service: Apr 22, 2019 Chief Complaint The patient is a 58-year-old female admitted with a reason for visit of Bilateral Pneumonia. Source: Patient, Family, Old records Exam Limitations: Clinical conditions Timing/Duration: Day(s), Getting worse Severity: Moderate Associated Symptoms: Cough, Fever, Chills, Headaches, Shortness of breath History of Present Illness This is a 58-year-old female with an underlying history of significant pulmonary disease. This includes chronic respiratory failure due to oxygen dependent COPD and obstructive sleep apnea. She also has bronchiectasis. She was hospitalized at the end of last month with lobular pneumonia; Enterobacter aerogenes was isolated. The patient was treated with Levaquin. She states she does not feel she has been well since she left the hospital. She states that 4 days ago she developed fevers up to 102.4, and productive cough. She also had chills and shortness of breath. She denies any nausea or vomiting. 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 She states she has not gotten any better. She also has nasal congestion but has chronic sinusitis. Of additional concern, during her last hospital stay sputum samples were [facility]; sample from April 01 was positive for Mycobacterium avium complex. Home Medications Scheduled Aspirin (Aspir 81) 81 Mg Tablet.dr, 81 MG PO DAILY, (Reported) Atorvastatin Calcium (Lipitor) 20 Mg Tab, 40 MG PO QHS, (Reported) Azelastine HCl (Azelastine HCl) 0.15 % Spr, 2 SPRAY NARES DAILY, (Reported) Budesonide (Budesonide) 0.5 Mg/2 Ml Ampul.neb, 1 VIAL NEB BID, (Reported) Citalopram Hydrobromide (Citalopram HBr) 40 Mg Tab, 40 MG PO DAILY, (Reported) HAS NOT TAKEN SINCE STARTING LEVAQUIN ON 04/19/19 Cyanocobalamin (Vitamin B-12) (Vitamin B-12) 1,000 Mcg Tab, 1,000 MCG PO DAILY, (Reported) Enalapril Maleate (Enalapril Maleate) 2.5 Mg Tab, 2.5 MG PO DAILY, (Reported) Ergocalciferol (Vitamin D2) (Vitamin D2) 50,000 Unit Capsule, 50,000 UNIT PO QWEEK, (Reported) WEDNESDAYS Esomeprazole Magnesium (Esomeprazole Magnesium) 40 Mg Capsule.dr, 40 MG PO BID, (Reported) Ferrous Sulfate (Ferrous Sulfate) 325 Mg Tablet, 325 MG PO BID, (Reported) Fluticasone/Vilanterol (Breo Ellipta 200-25 Mcg INH) 1 Inh Inh, 1 PUFF INH DAILY, (Reported) Gabapentin (Gabapentin) 300 Mg Cap, 300 MG PO TID, (Reported) Immun Glob G(IgG)/Pro/Iga 0-50 (Hizentra 10 Gram/50 ml Vial) 10 Gm/50 Ml Inj, 20 GM SC 1XWK, (Reported) SATURDAYS Insulin Glargine,Hum.rec.anlog (Basaglar Kwikpen U-100) 100 Unit/1 Ml Insuln.pen, 60 UNIT SC QHS, (Reported) Insulin Lispro (Admelog Solostar) 100 Unit/1 Ml Insuln.pen, 1 DOSE SC ACHS, (Reported) PER SLIDING SCALE Ipratropium/Albuterol Sulfate (Iprat-Albut 0.5-3(2.5) mg/3 ml) 1 Valerie Valerie, 1 NEB INH QID, (Reported) Levofloxacin (Levofloxacin) 500 Mg Tablet, 500 MG PO DAILY, (Reported) FILLED 04/19/19 FOR 7 DAYS Loratadine (Loratadine) 10 Mg Tablet, 10 MG PO DAILY, (Reported) Montelukast Sodium (Singulair) 10 Mg Tab, 10 MG PO QPM, (Reported) DINNER TIME Multivitamins (Thera M Plus Tablet) 1 Tab Tab, 1 TAB PO DAILY, (Reported) Mycophenolate Mofetil (Cellcept) 500 Mg Tab, 1,000 MG PO BID, (Reported) Prednisone (Prednisone) 10 Mg Tablet, 20 MG PO ASDIRECTED, (Reported) STARTED ON 04/11/19 - 40MG FOR 4 DAYS, 30MG FOR 4 DAYS, 20MG FOR 4 DAYS, 10MG FOR 4 DAYS THEN STOP Pyridostigmine [place] (Mestinon) 60 Mg Tab, 60 MG PO QID, (Reported) Ranitidine Hcl (Ranitidine HCl) 150 Mg Tab, 2 TAB PO QHS, (Reported) Ropinirole HCl (Ropinirole HCl) 1 Mg Tab, 1 MG PO BID, (Reported) TAKES AM/HS Ropinirole HCl (Ropinirole HCl) 0.5 Mg Tab, 0.5 MG PO DAILY, (Reported) TAKES AT 1200 Topiramate (Topiramate) 50 Mg Tab, 100 MG PO BID, (Reported) Umeclidinium [place] (Incruse Ellipta) 62.5 Mcg Blst.w.dev, 1 PUFF INH DAILY, (Reported) Scheduled PRN Acetaminophen (Tylenol Extra Strength) 500 Mg Tablet, 1,000 MG PO Q6H PRN for f, (Reported) Albuterol Sulfate (Ventolin Hfa) 18 Gm Hfa.aer.ad, 2 PUFF INH Q4H PRN for SHORTNESS OF BREATH, (Reported) Allergies Coded Allergies: metformin (Verified Allergy, Severe, ANAPHALAXIS, 03/26/19) Sulfa (Sulfonamide Antibiotics) (Verified Allergy, Intermediate, HIVES, 03/26/19) fluoxetine (Verified Allergy, Unknown, 03/26/19) niacin (Verified Allergy, Unknown, 03/26/19) metoclopramide (Verified Adverse Reaction, Intermediate, TREMORS, 03/26/19) Past Medical History Medical History Past medical history is reported to be: Atrial fibrillation--EKG reviewed shows sinus rhythm at rate of 62, depression with anxiety features, osteoporosis, myasthenia gravis, gastroesophageal reflux disease, restless leg syndrome, essential hypertension, chronic respiratory failure due to COPD with baseline FiO2 of 2 L/m, obstructive sleep apnea on CPAP of 9 at night, bronchiectasis, frd-vguconp-kpewjkavh diabetes mellitus, morbid obesity Surgical History Surgical history includes hysterectomy, cholecystectomy, bilateral carpal tunnel decompression, teeth extraction Family History Family history is remarkable for family members with cancer, coronary artery disease with cardiac arrest and nephrolithiasis. Social History * Smoker: non-smoker Alcohol: Denies Drugs: denies Pets in the home: Dog(s) Psychosocial History: Depression Disabled A-FIB/CHADSVASC A-FIB History Current/History of A-Fib/PAF?: Yes Current PO Anticoag Therapy: No Age/Risk Factor Scoring CHADSVASC: CHADSVASC Response (Comments) Value Age Risk Factor Age < 65 years old 0 Gender Risk Factor Female 1 Hx of CHF No 0 Hx of HTN Yes 1 Hx of Stroke/TIA/or VTE No 0 Hx of Diabetes Yes 1 Hx of Vascular Disease No 0 Total 3 Treatment Treatment ordered: Other (subcutaneous heparin) Other anticoagulant ordered: none for now Reason Anticoagulant not given: Other (patient is currently in sinus rhythm) Other reason anticoagulant not: patient is currently in sinus rhythm Review of Systems Other systems 10 system review is otherwise negative except as stated in the brief presentation Physical Examination General Exam: Positive: Cooperative, Moderate Distress, Other (facial plethora) Eye Exam: Positive: PERRLA, Conjunctiva & lids normal (no scleral injection) ENT Exam: Positive: Atraumatic, Mucous membr. moist/pink, Other ENT (patient does exhibit nasal congestion, some drainage as well) Neck Exam: Positive: Supple, Lymphadenopathy (none); Negative: JVD, thyromegaly Chest Exam: Positive: Wheezing (and coarse breath sounds) Heart Exam: Positive: Tachycardic, Normal S1, Normal S2, Murmurs (no murmur) Abdomen Exam: Positive: Normal bowel sounds, Soft, Other (significant central obesity); Negative: Tenderness, Hepatospenomegaly Extremity Exam: Positive: Normal pulses, Other (by mouth pulses are palpable, she does have some superficial abrasions from her dog); Negative: Clubbing, Cyanosis, Edema Skin Exam: Positive: Nl turgor and temperature; Negative: Breakdown, Lesion Neuro Exam: Positive: Normal Speech, Cranial Nerves 3-12 NL Psych Exam: Positive: Anxiety, Other (depressed, distressed affect) Vital Signs Vital Signs Date Time Temp Pulse Resp B/P (MAP) Pulse Ox O2 Delivery O2 Flow Rate FiO2 04/22/19 15:36 98.1 102 20 126/67 (86) 94 2.0 04/22/19 15:08 Room Air Laboratory Data Labs 24H Laboratory Tests 2 04/22/19 10:17: Blood Gas Bicarbonate Standard 22.3, Arterial Blood pH 7.473H, Arterial Blood Partial Pressure CO2 27.6L, Arterial Blood Partial Pressure O2 69.0L, Arterial Blood Total CO2 20.6L, Arterial Blood HCO3 19.8L, Arterial Blood Base Excess - 2.5L, Arterial Blood Oxygen Saturation 94.9L 04/22/19 10:43: Immature Granulocyte % (Auto) 2.4, White Blood Count 12.8H, Red Blood Count 4.14, Hemoglobin 12.5, Hematocrit 39.3, Mean Corpuscular Volume 94.9, Mean Corpuscular Hemoglobin 30.2, Mean Corpuscular Hemoglobin Concent 31.8L, Red Cell Distribution Width 13.4, Platelet Count 332, Neutrophils (%) (Auto) 67.4H, Lymphocytes (%) (Auto) 18.1L, Monocytes (%) (Auto) 10.7H, Eosinophils (%) (Auto) 0.5, Basophils (%) (Auto) 0.9, Neutrophils # (Auto) 8.6H, Lymphocytes # (Auto) 2.3, Monocytes # (Auto) 1.4H, Eosinophils # (Auto) 0.1, Basophils # (Auto) 0.1, Nucleated Red Blood Cells % (auto) 0.0, Anion Gap 9, Glomerular Filtration Rate 54.1, Lactic Acid Level 1.4, Blood Urea Nitrogen 13, Creatinine 1.10, Sodium Level 136, Potassium Level 3.7, Chloride Level 106, Carbon Dioxide Level 21, Calcium Level 8.6 CBC/BMP Laboratory Tests 04/22/19 10:43 Red Blood Count 4.14, Mean Corpuscular Volume 94.9, Mean Corpuscular Hemoglobin 30.2, Mean Corpuscular Hemoglobin Concent 31.8 L, Red Cell Distribution Width 13.4, Neutrophils (%) (Auto) 67.4 H, Lymphocytes (%) (Auto) 18.1 L, Monocytes (%) (Auto) 10.7 H, Eosinophils (%) (Auto) 0.5, Basophils (%) (Auto) 0.9, Neutrophils # (Auto) 8.6 H, Lymphocytes # (Auto) 2.3, Monocytes # (Auto) 1.4 H, Eosinophils # (Auto) 0.1, Basophils # (Auto) 0.1, Calcium Level 8.6 Microbiology Microbiology 04/22/19 Gram Stain - Final, Resulted 04/22/19 Sputum Culture, Resulted Pending 04/22/19 Blood Culture, Received Pending 04/22/19 Blood Culture, Received Pending Assessment/Plan 1. Recurrent Pulmonary infection. Radiologic findings support pneumonia with presence of densities and mediastinal adenopathy. The patient also has bronchiectasis. IMPRESSION: 1. Abnormal lung field opacities have developed since the last exam most consistent with pneumonia. This needs to be correlated clinically. 2. Chronic lung field changes with significant cylindrical bronchiectasis status quo. 3. Adenopathy as described above. 4. Tiny pericardial effusion. Electronically Signed by Martin Watson DO 04/22/2019 12:49 P Patient is being placed on IV vancomycin and cefepime by the pulmonary service. 2. Mycobacterium avium The patient has a new diagnosis per sputum of Mycobacterium avium. Patient has received initial doses of azithromycin and rifampin. Actual treatment course is to be determined in consultation with infectious disease service. There are additional sputum sample results pending. 3. COPD The patient will remain on her multiple steroid inhalers. She is also receiving systemic steroids and nebulization treatments. 4. Obstructive sleep apnea. Obstructive sleep apnea is contributory to her poor respiratory condition and she'll be maintained on her CPAP. 5. The patient has arz-qsmueri-dkiwqcmen diabetes mellitus. Patient has tended toward lower blood sugars and so we have decreased her Lantus dosage by half for now to avoid hypoglycemia. She has sliding scale insulin available as well for glycemic control. 6. Atrial fibrillation. Review of the patient's record lists atrial fibrillation. EKG is showing sinus rhythm. Further review of the record does not show the patient to be on any rate control medication or anticoagulation. The patient's status will need to be clarified. Plan / VTE VTE Prophylaxis Ordered?: Yes Plan Diet: Continue Current Activity: Advance Medications: Start Antibiotics, Start Steroids, Other Med: (consultation with infectious diseases pending to develop MAC treatment regimen.) Respiratory: Increase Oxygen (patient has stated she does not want increased oxygen. However, she has reported desaturations at home down to 80%. We have explained to the patient that we need to do whatever is necessary to maintain her oxygenation and then we can wean things back down.), Increase Therapy Diagnostics: Repeat Labs in AM, Obtain Cultures Anticipated Discharge: Home With Services RICARDO HARVEY MD Apr 22, 2019 16:58
[2019-04-22] MEDS: GABAPENTIN 300 MG CAP PO SCH ×2 (17:00→21:09)
[2019-04-22] MEDS: HumaLOG INSULIN (NovoLOG) PER UNIT SC SCH ×2 (17:15→21:25)
[2019-04-22] MEDS ORDERED: predniSONE 20 MG TAB PO ONE (18:00)
[2019-04-22] MEDS ORDERED: AZITHROMYCIN 250 MG TAB PO ONE (18:00)
[2019-04-22] MEDS: PYRIDOSTIGMINE 60 MG TAB PO SCH ×2 (18:24→21:09)
--- NOTE | 2019-04-22 18:29 | IPNPDOC ---
Date Seen The patient was seen on 04/22/19. Progress Note I was called to place a central line as patient had no access despite many attempts. Consent was obtained from the patient, indications, risks (including bleeding & Pneumothorax) & benefits were explained to the patient. A time out was done prior to the procedure. After evaluating her anatomy with an ultrasound, I decided to place a R IJ TLC. The procedure was done with ultrasound guidance and appropriate sterile protocol. Site was cleaned with chlorhexidine before and after draping the patient. Patient was given local anesthesia with Lidocaine 2% and 20 cm TLC was inserted into her RIJ with ultrasound guidance using the seldinger technique. She tolerated the procedure well, without any blood loss. Placement was confirmed with CXR. Upon personally reviewing the X-ray, no Pneumothorax was noted & TLC is in the appropriate position. Nursing staff may use the central line immediately. VS, I&O, 24H, Fishbone Vital Signs/I&O Vital Signs Date Time Temp Pulse Resp B/P (MAP) Pulse Ox O2 Delivery O2 Flow Rate FiO2 04/22/19 18:08 92 22 118/57 (77) 100 04/22/19 17:43 2.0 04/22/19 15:36 98.1 04/22/19 15:08 Room Air Laboratory Data 24H LABS Laboratory Tests 2 04/22/19 10:17: Blood Gas Bicarbonate Standard 22.3, Arterial Blood pH 7.473H, Arterial Blood Partial Pressure CO2 27.6L, Arterial Blood Partial Pressure O2 69.0L, Arterial Blood Total CO2 20.6L, Arterial Blood HCO3 19.8L, Arterial Blood Base Excess - 2.5L, Arterial Blood Oxygen Saturation 94.9L 04/22/19 10:43: Immature Granulocyte % (Auto) 2.4, White Blood Count 12.8H, Red Blood Count 4.14, Hemoglobin 12.5, Hematocrit 39.3, Mean Corpuscular Volume 94.9, Mean Corpuscular Hemoglobin 30.2, Mean Corpuscular Hemoglobin Concent 31.8L, Red Cell Distribution Width 13.4, Platelet Count 332, Neutrophils (%) (Auto) 67.4H, Lymphocytes (%) (Auto) 18.1L, Monocytes (%) (Auto) 10.7H, Eosinophils (%) (Auto) 0.5, Basophils (%) (Auto) 0.9, Neutrophils # (Auto) 8.6H, Lymphocytes # (Auto) 2.3, Monocytes # (Auto) 1.4H, Eosinophils # (Auto) 0.1, Basophils # (Auto) 0.1, Nucleated Red Blood Cells % (auto) 0.0, Anion Gap 9, Glomerular Filtration Rate 54.1, Lactic Acid Level 1.4, Blood Urea Nitrogen 13, Creatinine 1.10, Sodium Level 136, Potassium Level 3.7, Chloride Level 106, Carbon Dioxide Level 21, Calcium Level 8.6 04/22/19 17:10: Bedside Glucose (Misc Panel) 50L CBC/BMP Laboratory Tests 04/22/19 10:43 Red Blood Count 4.14, Mean Corpuscular Volume 94.9, Mean Corpuscular Hemoglobin 30.2, Mean Corpuscular Hemoglobin Concent 31.8 L, Red Cell Distribution Width 13.4, Neutrophils (%) (Auto) 67.4 H, Lymphocytes (%) (Auto) 18.1 L, Monocytes (%) (Auto) 10.7 H, Eosinophils (%) (Auto) 0.5, Basophils (%) (Auto) 0.9, Renetta trophils # (Auto) 8.6 H, Lymphocytes # (Auto) 2.3, Monocytes # (Auto) 1.4 H, Eosinophils # (Auto) 0.1, Basophils # (Auto) 0.1, Calcium Level 8.6 Microbiology Microbiology 04/22/19 Gram Stain - Final, Resulted 04/22/19 Sputum Culture, Resulted Pending 04/22/19 Blood Culture, Received Pending 04/22/19 Blood Culture, Received Pending SHANTA SANDS MD Apr 22, 2019 18:29
[2019-04-22] MEDS ORDERED: SODIUM CHLORIDE 0.9% INJ 10 ML SYR IV PRN (18:45)
--- NOTE | 2019-04-22 19:06 | PHACANCOPD ---
PHARMACY VANCOMYCIN DOSING Pt Demographics Demographics Patient Age:58 , Weight:114.800 , Gender: female Adjusted Body Weight Date: 04/22/19, Adjusted Body Weight: [77.36] Kg Events Past 24 Hours Events Past 24 Hours: NO: Dialysis, Diuretic Therapy, Change in CrCl, Fever, Elevation in WBC, Pending Diagnostics, Pending Procedures, Other Vancomycin Vancomycin indication: GPC IN SPUTUM Vancomycin Target Ranges: 10-20 mcg/ml Vancomycin Load Y/N: Yes Load Dose Date Time Vancomycin Load Dose: 2g Date:04/22/19 Time: 19:04 Vancomycin Dose Date: 04/22/19. Current Vancomycin Dose: [1g iv q12h] Intermittent Dosing?: No Labs Labs Item Value Date Time White Blood Count 12.8 10^3/uL H 04/22/19 1043 Creatinine 1.10 MG/DL 04/22/19 1043 Micro Microbiology 04/22/19 Gram Stain - Final, Resulted 04/22/19 Sputum Culture, Resulted Pending 04/22/19 Blood Culture, Received Pending 04/22/19 Blood Culture, Received Pending Creatinine Clearance Date:04/22/19. Creatinine Clearance: [67ml/min adjusted]. Pending Labs mrsa pcr Assessment and Plan Maintaining Current Dose?: Yes Reason for dose change: No Dose Change Pharmacist Note Pharmacist Note Date: 04/22/19. Pharmacist note: PT is a 58 year old female being treated for GPC in sputum goal trough 10-20mcg/ml. The patient was last treated with vancomycin here at [facility] in january 2017. To achieve goal a 2g loading dose will start 04/22/19 @ 2100. Maintenance therapy will consist of 1g IV every 12 hours. We will continue to monitor and adjust the dose as needed. SOY STACY [facility]ARMAC[facility] Apr 22, 2019 19:06
[2019-04-22] MEDS ORDERED: ADVAIR HFA 115/21MCG INHALER INH SCH (20:00)
[2019-04-22] MEDS: CEFEPIME HCL 1 GM in D5W MINI-BAG PLUS 50 ML IV SCH (20:00)
[2019-04-22] MEDS: BUDESONIDE 0.5 MG/2 ML INHALATION SUSPENSION NEB SCH (20:23)
[2019-04-22] MEDS ORDERED: FLUTICASONE HFA 110 MCG 12 GM INHALER (FLOVENT) INH SCH (21:00)
[2019-04-22] MEDS: FERROUS SULFATE 325MG TAB PO SCH (21:09)
[2019-04-22] MEDS: TOPIRAMATE (TopAMAX) 100 MG TAB PO SCH (21:09)
[2019-04-22] MEDS: ATORVASTATIN 20 MG TAB PO SCH (21:09)
[2019-04-22] MEDS: VANCOMYCIN HCL 1,000 MG, VIAL MATE ADAPTER 1 EACH in D5W 250 ML IV SCH (21:09)
[2019-04-22] MEDS: rOPINIRole 1MG TAB PO SCH (21:09)
[2019-04-22] MEDS: MYCOPHENOLATE MOFETIL 250 MG CAP (J7517) PO SCH (21:09)
[2019-04-22] MEDS: MONTELUKAST 10 MG TAB PO SCH (21:09)
[2019-04-22] MEDS: PANTOPRAZOLE 40MG TAB (PROTONIX) PO SCH (21:10)
[2019-04-22] MEDS: LEVEMIR (INSULIN DETEMIR) 1 UNITS/0.01ML SC SCH (21:25)
[2019-04-22] MEDS: FAMOTIDINE 20 MG TAB PO SCH (21:26)
[2019-04-22] MEDS ORDERED: VANCOMYCIN HCL 1,000 MG, VIAL MATE ADAPTER 1 EACH in D5W 250 ML IV ONE (22:00)
[2019-04-22] MEDS: SODIUM CHLORIDE 0.9% INJ 10 ML SYR IV SCH (22:20)
--- NOTE | 2019-04-22 23:49 | REP ---
Clinical: Line placement . Comparison: 04/22/2019 . Findings: Right IJ line with tip in the SVC. The mediastinum and cardiac silhouette are stable and within normal limits for portable technique. Trace right basilar atelectasis. The lung miller are otherwise clear without acute consolidation, effusion, or pneumothorax. Skeletal structures are intact. Impression: Trace right basilar atelectasis. Right IJ line in satisfactory position. Electronically Signed by Adeel Bowens MD 04/22/2019 11:40 P
[2019-04-23] VITALS (15 sets, daily range): BP systolic 112–157; BP diastolic 53–82; O2SAT 95–98
[2019-04-23] MEDS: HEPARIN SOD (PORCINE) 5000 UNITS/ML VIAL SC SCH ×3 (05:45→21:29)
[2019-04-23] MEDS: SODIUM CHLORIDE 0.9% INJ 10 ML SYR IV SCH ×3 (05:45→21:26)
[2019-04-23 06:05] LABS: HEMATOCRIT 38.2 % (36.0-47.0); HEMOGLOBIN 12.2 g/dl (12.0-15.5); MEAN CORPUSCULAR HEMOGLOBIN 29.9 pg (27.0-33.0); MEAN CORPUSCULAR HGB CONC 31.9 g/dl (32.0-36.5); MEAN CORPUSCULAR VOLUME 93.6 fl (80.0-96.0); PLATELET COUNT, AUTOMATED 317 10^3/uL (150-450); RED BLOOD COUNT 4.08 10^6/uL (4.00-5.40); WHITE BLOOD COUNT 8.9 10^3/uL (4.0-10.0)
[2019-04-23 06:30] LABS: ALBUMIN 2.9 GM/DL (3.2-5.2); ALT/SGPT 20 U/L (12-78); BILIRUBIN,TOTAL 1.2 MG/DL (0.2-1.0); BLOOD UREA NITROGEN 12 MG/DL (7-18); CALCIUM LEVEL 8.6 MG/DL (8.5-10.1); CARBON DIOXIDE LEVEL 24 MEQ/L (21-32); CHLORIDE LEVEL 101 MEQ/L (98-107); CREATININE FOR GFR 0.92 MG/DL (0.55-1.30); GLOMERULAR FILTRATION RATE > 60.0 (>51); GLUCOSE, FASTING 297 MG/DL (70-100); POTASSIUM SERUM 4.5 MEQ/L (3.5-5.1); SODIUM LEVEL 131 MEQ/L (136-145); TOTAL PROTEIN 6.4 GM/DL (6.4-8.2)
[2019-04-23] MEDS: BUDESONIDE 0.5 MG/2 ML INHALATION SUSPENSION NEB SCH ×2 (07:20→20:27)
[2019-04-23] MEDS: IPRATROPIUM 0.5MG/ALBUTEROL 2.5MG INH SOL UD 3ML (DUONEB)(J7620) INH SCH ×4 (07:20→20:27)
[2019-04-23] MEDS: BREO ELLIPTA INH SCH (07:21)
[2019-04-23] MEDS: INCRUSE ELLIPTA 62.5 MCG INH SCH (07:22)
[2019-04-23] MEDS ORDERED: TIOTROPIUM INHALER/CAPSULE (SPIRIVA) INH SCH (08:00)
[2019-04-23] MEDS: VANCOMYCIN HCL 1,000 MG, VIAL MATE ADAPTER 1 EACH in D5W 250 ML IV SCH ×2 (08:18→21:24)
[2019-04-23] MEDS: CEFEPIME HCL 1 GM in D5W MINI-BAG PLUS 50 ML IV SCH ×2 (08:18→21:01)
[2019-04-23] MEDS: AZELASTINE 137MCG NASAL SPY 30 ML (ASTELIN) SCH (08:18)
[2019-04-23] MEDS: PANTOPRAZOLE 40MG TAB (PROTONIX) PO SCH ×2 (08:19→21:06)
[2019-04-23] MEDS: LORATADINE 10 MG TAB PO SCH (08:19)
[2019-04-23] MEDS: MULTIVITAMINS/MINERALS THERAP 1 TAB PO SCH (08:19)
[2019-04-23] MEDS: MYCOPHENOLATE MOFETIL 250 MG CAP (J7517) PO SCH ×2 (08:19→21:05)
[2019-04-23] MEDS: ASPIRIN 81 MG ENTERIC TAB PO SCH (08:19)
[2019-04-23] MEDS: CYANOCOBALAMIN 500 MCG TAB PO SCH (08:19)
[2019-04-23] MEDS: CitaloPRAM (CeleXA) 20 MG TAB PO SCH (08:19)
[2019-04-23] MEDS: FERROUS SULFATE 325MG TAB PO SCH ×2 (08:20→21:05)
[2019-04-23] MEDS: ENALAPRIL MALEATE 5 MG TAB PO SCH (08:20)
[2019-04-23] MEDS: rOPINIRole 1MG TAB PO SCH ×2 (08:20→21:05)
[2019-04-23] MEDS: TOPIRAMATE (TopAMAX) 100 MG TAB PO SCH ×2 (08:20→21:06)
[2019-04-23] MEDS: GABAPENTIN 300 MG CAP PO SCH ×3 (08:20→21:06)
[2019-04-23] MEDS: PYRIDOSTIGMINE 60 MG TAB PO SCH ×4 (08:20→21:05)
[2019-04-23] MEDS: HumaLOG INSULIN (NovoLOG) PER UNIT SC SCH ×4 (08:26→21:00)
[2019-04-23] MEDS ORDERED: FLUBLOK(EGG FREE)(QUAD)INFLUENZA VACC 0.5ML SYRINGE (90682)18YRS&OLDER IM ONE (09:00)
--- NOTE | 2019-04-23 10:54 | IPN ---
DATE: 04/23/2019 I again attended Jon Connor here in the progress care unit. She was is known to me from the outpatient setting. Patient is examined and the chart is reviewed. She was recently treated with Levaquin and prednisone as an outpatient as she grew Stenotrephomonous. Previously, she had grown Enterobacter cloacae. She recently had cultures from the last hospitalization that grew Mycobacterium avium. She is on a therapy vest at home as well as a expectorants and mucolytics. She is also known to have sleep apnea and is compliant with her CPAP. Despite Levaquin and prednisone, she spiked temperatures to 102 and was admitted through the emergency room. CT scan showed progressive infiltrate at the left base in an area distal to her known bronchiectasis. Maximum temperature (T-max) overnight 97.8, blood pressure 140s, heart rate 70-80s with a sinus mechanism. Respiratory rate 16-18 without accessory muscle use. Most recent white blood cell count 8.9, hemoglobin 12.2, platelet count 317,000. Sodium 131, potassium 4.5, chloride 101, CO2 24, BUN 12, creatinine 0.92. Sputum Gram stain culture and sensitivity shows it to be a good specimen, moderate WBCs but there is moderate epithelial cells. There are moderate gram positive rods and many gram positive cocci. Blood cultures are currently pending. On exam, she is awake, alert, and appropriate. Membranes are moist. Trachea is midline. Pupils are reactive, sclerae clear. She has got a right internal jugular venous line in place. Chest shows diminished but symmetric expansion. There is some rhonchi and crackles at the left base but no convincing egophony. The rest of the chest is clear. Cardiac exam is regular rate. No gallop. Peripheral pulses are palpable with no obvious edema. Abdomen obese, soft, with active bowel sounds. No convincing organomegaly or masses. Extremities without any cyanosis or clubbing. Neurologic: She is awake, alert and appropriate. Psych: Normal affect. CT scan as outlined above. IMPRESSION: 1. Left lower lobe pneumonia. 2. Bronchiectasis with exacerbation. 3. Mal clearance of secretions. 4. Myasthenia gravis. 5. Obstructive sleep apnea syndrome. 6. Mycobacterium avium by culture. RECOMMENDATION: At this point, in view of her sputum and her fever and her recent hospitalization, she will be treated with vancomycin and cefepime pending rhinal cultures. I have spoken with Dr. Benites by phone who agrees at this point that it is less likely that here symptoms are on the basis of her MAC and therefore, we will hold on therapy until she has been evaluated by her. Will continue her CPAP. Will continue with therapy vest and expectorants as well as nebulized bronchodilators. Ulcer and deep venous thrombosis (DVT) prophylaxis are in place per the primary service. At this point, she will be followed closely while she is here in the hospital. Further recommendations will be made in the progress record as new information becomes available. JUN
[2019-04-23] MEDS: rOPINIRole 0.25 MG TAB(REQUIP) PO SCH (13:00)
[2019-04-23] MEDS: guaiFENesin ER 600 MG TAB PO SCH ×2 (13:03→21:06)
--- NOTE | 2019-04-23 19:49 | IPNPDOC ---
Text Note Date of Service The patient was seen on 04/23/19. NOTE SUBJECTIVE: Ms. Connor is much improved from admission. She was admitted with fever and essentially recurrent pneumonia. She also has underlying bronchiectasis and new finding of Mycobacterium avium. The patient was concerned that she is not coughing up as much sputum as usual. We have told her that this is a good thing. OBJECTIVE: See vital signs below Physical exam: General.: Facial plethora of yesterday is resolved, she is not diaphoretic. HENT: Neck is supple, has decreased nasal congestion, oral mucosa is moist, she does not have any adenopathy or thyromegaly, but does have what is described as a "buffalo hump" to the back of her neck. Cardiovascular: Regular rate and rhythm with a normal S1 and S2. Respiratory: Patient has remarkably good air movement, with rare coarse breath sounds, she does not have cough during exam Abdomen: Soft, nontender, nondistended, morbid central obesity Extremities: Neuro exam: Patient does not exhibit any neuromotor or sensory deficit, she does not have tremor and she exhibits good truncal control ASSESSMENT/PLAN: 1. The patient appears to have developed a recurrent pneumonia. She is being placed on Vanco and cefepime by the pulmonary service. She is also receiving multiple inhalers, and nebulization treatments. She also has underlying bronchiectasis and currently exhibits reduced sputum production. 2. Mycobacterium avium. This is a new diagnosis. This is based on a sputum sample from her last admission. There are additional sputum sample results pending. Treatment course is to be determined by the infectious disease service. 3. COPD The patient remains on her steroid inhalers and systemic steroids. 4. Obstructive sleep apnea. The patient is maintained on her CPAP during this hospital stay. 5. Stf-cttuwmx-twvnzesjk diabetes mellitus We have decreased the patient's Lantus dosing for now to avoid hypoglycemia with good results. 6. Atrial fibrillation. This is not apparent on her current EKG. We will need to determine whether there is any need for rate control or anticoagulation medication. VS,Fishbone, I+O VS, Fishbone, I+O Laboratory Tests 04/23/19 05:43 Red Blood Count 4.08, Mean Corpuscular Volume 93.6, Mean Corpuscular Hemoglobin 29.9, Mean Corpuscular Hemoglobin Concent 31.9 L, Red Cell Distribution Width 13.2, Calcium Level 8.6, Aspartate Amino Transf (AST/SGOT) 13, Alanine Aminotransferase (ALT/SGPT) 20, Alkaline Phosphatase 75, Total Bilirubin 1.2 H, Total Protein 6.4, Albumin 2.9 L Vital Signs Date Time Temp Pulse Resp B/P (MAP) Pulse Ox O2 Delivery O2 Flow Rate FiO2 04/23/19 16:00 2.0 04/23/19 16:00 97.0 93 18 157/62 (93) 98 04/23/19 06:00 BIPAP/CPAP I&O- Last 24 Hours up to 6 AM 04/23/19 06:00 Intake Total 2750 ml Output Total 2300 ml Balance 450 ml RICARDO HARVEY MD Apr 23, 2019 19:49
[2019-04-23] MEDS: ATORVASTATIN 20 MG TAB PO SCH (21:05)
[2019-04-23] MEDS: FAMOTIDINE 20 MG TAB PO SCH (21:05)
[2019-04-23] MEDS: MONTELUKAST 10 MG TAB PO SCH (21:06)
[2019-04-23] MEDS: LEVEMIR (INSULIN DETEMIR) 1 UNITS/0.01ML SC SCH (21:24)
[2019-04-24] VITALS (25 sets, daily range): BP systolic 135–147; BP diastolic 63–80; O2SAT 92–100
[2019-04-24] MEDS ORDERED: CALCIUM CARBONATE 500 MG CHEW U/D PO PRN (02:30)
[2019-04-24] MEDS: HEPARIN SOD (PORCINE) 5000 UNITS/ML VIAL SC SCH ×3 (06:28→21:20)
[2019-04-24] MEDS: SODIUM CHLORIDE 0.9% INJ 10 ML SYR IV SCH ×3 (06:28→21:07)
[2019-04-24 07:07] LABS: BLOOD UREA NITROGEN 14 MG/DL (7-18); CALCIUM LEVEL 8.7 MG/DL (8.5-10.1); CARBON DIOXIDE LEVEL 26 MEQ/L (21-32); CHLORIDE LEVEL 104 MEQ/L (98-107); CREATININE FOR GFR 0.92 MG/DL (0.55-1.30); GLOMERULAR FILTRATION RATE > 60.0 (>51); GLUCOSE, FASTING 142 MG/DL (70-100); POTASSIUM SERUM 3.9 MEQ/L (3.5-5.1); SODIUM LEVEL 137 MEQ/L (136-145)
[2019-04-24] MEDS: BREO ELLIPTA INH SCH (07:20)
[2019-04-24] MEDS: IPRATROPIUM 0.5MG/ALBUTEROL 2.5MG INH SOL UD 3ML (DUONEB)(J7620) INH SCH ×4 (07:20→19:35)
[2019-04-24] MEDS: BUDESONIDE 0.5 MG/2 ML INHALATION SUSPENSION NEB SCH ×2 (07:20→19:35)
[2019-04-24] MEDS: INCRUSE ELLIPTA 62.5 MCG INH SCH (07:21)
[2019-04-24] MEDS: HumaLOG INSULIN (NovoLOG) PER UNIT SC SCH ×5 (08:43→21:20)
[2019-04-24] MEDS: CEFEPIME HCL 1 GM in D5W MINI-BAG PLUS 50 ML IV SCH ×2 (08:44→20:10)
[2019-04-24] MEDS: PYRIDOSTIGMINE 60 MG TAB PO SCH ×4 (08:44→20:12)
[2019-04-24] MEDS: LORATADINE 10 MG TAB PO SCH (08:44)
[2019-04-24] MEDS: PANTOPRAZOLE 40MG TAB (PROTONIX) PO SCH ×2 (08:44→20:12)
[2019-04-24] MEDS: guaiFENesin ER 600 MG TAB PO SCH ×2 (08:44→20:13)
[2019-04-24] MEDS: CitaloPRAM (CeleXA) 20 MG TAB PO SCH (08:45)
[2019-04-24] MEDS: CYANOCOBALAMIN 500 MCG TAB PO SCH (08:45)
[2019-04-24] MEDS: ENALAPRIL MALEATE 5 MG TAB PO SCH (08:45)
[2019-04-24] MEDS: GABAPENTIN 300 MG CAP PO SCH ×3 (08:45→20:12)
[2019-04-24] MEDS: ASPIRIN 81 MG ENTERIC TAB PO SCH (08:45)
[2019-04-24] MEDS: TOPIRAMATE (TopAMAX) 100 MG TAB PO SCH ×2 (08:46→20:13)
[2019-04-24] MEDS: AZELASTINE 137MCG NASAL SPY 30 ML (ASTELIN) SCH (08:46)
[2019-04-24] MEDS: MYCOPHENOLATE MOFETIL 250 MG CAP (J7517) PO SCH ×2 (08:46→20:12)
[2019-04-24] MEDS: MULTIVITAMINS/MINERALS THERAP 1 TAB PO SCH (08:46)
[2019-04-24] MEDS: FERROUS SULFATE 325MG TAB PO SCH ×2 (08:46→20:13)
[2019-04-24] MEDS: rOPINIRole 1MG TAB PO SCH ×2 (08:46→20:12)
--- NOTE | 2019-04-24 10:37 | IPN ---
DATE: 04/24/2019 I again attended Jon Connor here in the progressive care unit. The patient has been examined and chart reviewed. She is feeling a little better this morning. T-max overnight 98.1, blood pressure generally in the 130 systolic, heart rate in the 70s with a sinus mechanism. Respiratory rate 14-18 and comfortable without accessory muscle use. Intake and output midnight to midnight 1848 mL in with 1850 mL out. Most recent laboratories show a white blood cell count of not repeated today. Chemistries sodium 137, K of 3.9, chloride 104, CO2 26, BUN 14, creatinine 0.92. Cultures did grow enterobacter aerogenes again. Sensitivities are noted. Intermediate sensitivity to the Levaquin she was on as an outpatient, but sensitive to the cefepime she is on here. Consult for Dr. Benites has been placed and she is reportedly to see her today. On exam, she is awake, alert and appropriate. Pupils are reactive, sclera clear. Trachea is midline. Airway is at least a class 3. Chest shows diminished but symmetric expansion. She has inspiratory crackles with rhonchi, more marked at the left base. Right base is fairly clear. No other focal adventitious breath sounds are identified. Expansion, although diminished, is symmetric. Cardiac exam distant but regular. Peripheral pulses palpable. Trace edema. Abdomen obese, soft with active bowel sounds. No convincing organomegaly or masses. Extremities no cyanosis or clubbing. Neurologically she is awake, alert and appropriate. Psych appropriate mood and affect. The most pressing problems requiring my presence at the bedside: 1. Enterobacter aerogenes pneumonia. 2. Bronchiectasis with exacerbation. 3. Mal clearance of secretions on the basis of the above. 4. Obstructive sleep apnea (DMITRI). 5. Myasthenia gravis. 6. Mycobacterium avium complex. RECOMMENDATIONS: At this point will continue her current antimicrobials. I will stop her vancomycin as we have no documented MRSA. We will continue with expectorants, bronchodilators and her therapy vest. She wears her CPAP for naps and at bedtime. In all likelihood, we may not have to actively treat her mycobacterium avium but I await the final opinion of Dr. Benites. Certainly we have had difficulties with her enterobacter as an outpatient and again I await Dr. Benites's expert opinion in that regard. At this point, we will continue as outlined above. We will wean her steroids. I have encouraged her to spend more time out of bed as it clearly helps with secretion clearance. Further recommendations will be made in the progress record as new information becomes available.
[2019-04-24] MEDS: rOPINIRole 0.25 MG TAB(REQUIP) PO SCH (12:15)
[2019-04-24] MEDS: predniSONE 20 MG TAB PO SCH (12:15)
--- NOTE | 2019-04-24 17:18 | IPNPDOC ---
Text Note Date of Service The patient was seen on 04/24/19. NOTE SUBJECTIVE: The patient continues to clinically improve. She does not have any audible wheezing or coarse breath sounds. She also does not have any audible nasal congestion. Patient was admitted with recurrent pneumonia. OBJECTIVE: Please see vital signs below--patient has remained afebrile overnight and O2 sats range up to 95% on 2 L/m Physical exam: General.: No diaphoresis or facial plethora HENT: Neck is supple, has decreased nasal congestion, oral mucosa is moist, she does not have any adenopathy or thyromegaly, but does have what is described as a "buffalo hump" to the back of her neck. Cardiovascular: Regular rate and rhythm with a normal S1 and S2. Respiratory: Patient has remarkably good air movement, with rare coarse breath sounds, she does not have cough or wheezing during exam Abdomen: Soft, nontender, nondistended, morbid central obesity Extremities: No peripheral edema, pedal pulses are palpable. Neuro: No focal neuromotor or sensory deficit. Psych: Despite her significant clinical improvement patient puts forth remarkably depressed affect ASSESSMENT/PLAN: 1. The patient appears to have developed a recurrent pneumonia. She is being placed on Vanco and cefepime by the pulmonary service. She is also receiving multiple inhalers, and nebulization treatments. Of interest, the patient again has grown out Enterobacter allergies to her sputum. She also has underlying bronchiectasis and currently exhibits reduced sputum production. 2. Mycobacterium avium. This is a new diagnosis. This is based on a sputum sample from her last admi ssion. There are additional sputum sample results pending. Treatment course is to be determined by the infectious disease service. 3. COPD The patient remains on her steroid inhalers and systemic steroids. 4. Obstructive sleep apnea. The patient is maintained on her CPAP during this hospital stay. 5. Vyn-lkxtazb-frgxtxvaq diabetes mellitus We have decreased the patient's Lantus dosing for now to avoid hypoglycemia with good results. 6. Atrial fibrillation. This is not apparent on her current EKG. We will need to determine whether there is any need for rate control or anticoagulation medication. VS,Fishbone, I+O VS, Fishbone, I+O Laboratory Tests 04/24/19 06:00 Calcium Level 8.7 Vital Signs Date Time Temp Pulse Resp B/P (MAP) Pulse Ox O2 Delivery O2 Flow Rate FiO2 10/15/19 16:00 2.0 04/24/19 16:00 98.3 81 16 145/67 (93) 95 04/24/19 15:00 Nasal Cannula I&O- Last 24 Hours up to 6 AM 04/24/19 06:00 Intake Total 1578 ml Output Total 2275 ml Balance -697 ml RICARDO HARVEY MD Apr 24, 2019 17:18
[2019-04-24] MEDS: MONTELUKAST 10 MG TAB PO SCH (20:12)
[2019-04-24] MEDS: FAMOTIDINE 20 MG TAB PO SCH (20:12)
[2019-04-24] MEDS: ATORVASTATIN 20 MG TAB PO SCH (20:13)
[2019-04-24] MEDS: LEVEMIR (INSULIN DETEMIR) 1 UNITS/0.01ML SC SCH (20:27)
[2019-04-25] VITALS (21 sets, daily range): BP systolic 126–143; BP diastolic 59–84; O2SAT 93–98
[2019-04-25] MEDS: SODIUM CHLORIDE 0.9% INJ 10 ML SYR IV SCH ×3 (05:49→20:59)
[2019-04-25] MEDS: HEPARIN SOD (PORCINE) 5000 UNITS/ML VIAL SC SCH ×3 (05:51→21:00)
[2019-04-25 06:06] LABS: HEMATOCRIT 34.9 % (36.0-47.0); HEMOGLOBIN 11.3 g/dl (12.0-15.5); MEAN CORPUSCULAR HEMOGLOBIN 30.4 pg (27.0-33.0); MEAN CORPUSCULAR HGB CONC 32.4 g/dl (32.0-36.5); MEAN CORPUSCULAR VOLUME 93.8 fl (80.0-96.0); PLATELET COUNT, AUTOMATED 304 10^3/uL (150-450); RED BLOOD COUNT 3.72 10^6/uL (4.00-5.40); WHITE BLOOD COUNT 9.1 10^3/uL (4.0-10.0)
[2019-04-25 06:28] LABS: ALBUMIN 2.7 GM/DL (3.2-5.2); ALT/SGPT 21 U/L (12-78); BILIRUBIN,TOTAL 0.2 MG/DL (0.2-1.0); BLOOD UREA NITROGEN 15 MG/DL (7-18); C REACTIVE PROTEIN QUANTITATIV 6.07 MG/DL (0.00-0.30); CARBON DIOXIDE LEVEL 27 MEQ/L (21-32); CHLORIDE LEVEL 105 MEQ/L (98-107); CREATININE FOR GFR 0.85 MG/DL (0.55-1.30); GLOMERULAR FILTRATION RATE > 60.0 (>51); GLUCOSE, FASTING 184 MG/DL (70-100); SODIUM LEVEL 138 MEQ/L (136-145); TOTAL PROTEIN 6.9 GM/DL (6.4-8.2)
[2019-04-25] MEDS: IPRATROPIUM 0.5MG/ALBUTEROL 2.5MG INH SOL UD 3ML (DUONEB)(J7620) INH SCH ×4 (07:22→20:00)
[2019-04-25] MEDS: BUDESONIDE 0.5 MG/2 ML INHALATION SUSPENSION NEB SCH ×2 (08:00→20:00)
[2019-04-25] MEDS: INCRUSE ELLIPTA 62.5 MCG INH SCH (08:00)
[2019-04-25] MEDS: BREO ELLIPTA INH SCH (08:00)
--- NOTE | 2019-04-25 08:15 | CR ---
DATE OF CONSULTATION: 04/24/2019 I was asked to consult by Dr. Ambriz for evaluation of recurrent respiratory infection and the patient was bronchiectasis and recently isolated Mycobacterium avium complex in the sputum. HISTORY OF PRESENT ILLNESS: Mrs. Connor is a 58-year-old female with a history of recurrent pulmonary infection in the past year with bronchiectasis and acute exacerbation. According to the patient she has been hospitalized at least once every month at 2 months as was [facility] for the past year and recently 2 or 3 times at our hospital. The patient was discharged less than 3 weeks ago after she was treated for Enterobacter pneumonia. She has been isolating Enterobacter in her sputum for the past more than 6 months. She developed nasal congestion along with fever and headache and what sounded like an upper respiratory tract infection. Her had been slightly ill as well. She was given a prescription of Levaquin by Dr. Ambriz without improvement and therefore she came to the hospital. She had a temperature of 102.5 at home and 101 in the hospital. The patient was treated with IV steroids and then switched to prednisone 40 mg daily vancomycin and cefepime with improvement in the past 48 hours. She has defervesced and her oxygen requirement are back to 2 liters nasal cannula. She was seen by myself in consultation last month and I had concerns about her CT scan that showed nodular densities in and therefore sputum was sent for Mycobacterium avium complex and nontuberculous mycobacteria and one out of the three sputum is positive. The other two were still pending. My concern is whether this is the reason for her frequent exacerbation and she is only colonized Enterobacter. Past medical history is significant for chronic bronchiectasis, non-insulin dependent and dependent diabetes, morbid obesity, depression, gastroesophageal reflux disease, atrial fibrillation and osteoporosis myesthesia gravis, restless left leg syndrome a central hypertension, chronic respiratory failure due to COPD with baseline O2 at 2 liters, obstructive sleep apnea. PAST SURGICAL HISTORY: Hysterectomy, cholecystectomy, bilateral carpal tunnel syndrome decompression T6 correction. ALLERGIES: Metformin, sulfa pareoxtine, Niacin. MEDICATIONS: Aspirin 81 mg daily atorvastatin 20 mg by mouth at bedtime, budesonide 0.5 mg 2 mL twice a day, citalopram 40 mg daily, vitamin B12 1000 mcg daily, enalapril 2.5 mg daily, ergocalciferol 50,000 units weekly, omeprazole 40 mg by mouth twice a day, ferrous sulfate 325 mg twice a day, Breo Ellipta one inhaled daily, gabapentin 200 mg by mouth three times a day, immune globulin Hyzentra 20 grams subcu once a week, insulin glycine Basicar 60 units subcu at bedtime, sliding scale insulin nebs four times a day, levofloxacin and 500 mg daily was started on 04/19 and discontinued this admission, loratadine 10 mg daily month ago, montelukast 10 mg by mouth daily, multivitamin 1 tablet daily, mycophenolate 1000 mg by mouth twice a day, prednisone 20 mg by mouth daily started on 04/11 on a tapering schedule ranitidine 150 mg 2 tablets by mouth at bedtime, ropinirole 1 mg by mouth twice a day, Topamax 100 mg by mouth twice a day, Incruz Elipta 1 puff daily, LABS: White count was 8.9, hemoglobin 12.2, hematocrit 38.2, platelets 317. Sodium 137, potassium 3.9, chloride 104, bicarb 26, BUN 14, creatinine 0.92, glucose 142, calcium 8.7, AST 13, ALT 20, alk phos 75, total protein 6.4, blood cultures two sets were no growth after 48 hours. Sputum culture had Enterobacter aeruginosa resistant to cefazolin and Levaquin, sensitive to cefepime, Ceftriaxone. PHYSICAL EXAMINATION: on physical exam she is elderly female in no acute distress, morbidly obese, temperature is 96.2, pulse 95, respirations 18, blood pressure 136/71, O2 sat 96% on 2 liters nasal cannula. Heart: Normal S1-S2 with no murmurs, rubs or gallops. Lungs: Diffuse exterior wheezes bilaterally decreased air entry. Abdomen: Obese, soft, nontender. Extremities: No clubbing, cyanosis or edema. No calf tenderness. +2 dorsalis pedis pulses. Oropharynx clear. No thrush. Pupil equal and reactive, anicteric. IMPRESSION: 58-year-old female admitted with bronchiectasis exacerbation, question whether it was exacerbated by Enterobacter aeruginosa again which my suspicion is very low. She has been treated for that for the past many months and I would suspect his only colonized as a car cultures are only growing feel possibly she had a respiratory illness that causes exacerbation and or Mycobacterium avium complex infection. At this point the patient has clinically improved. The guidelines recommend having two positive sputum culture for Mycobacterium avium complex before deciding whether the patient is colonized or infected. At this point I would recommend waiting for a second culture to grow before starting the three-drug regimen. PLAN: Switch the patient to cefdinir 200 mg by mouth twice a day, to treat th4 a Enterobacter are denies. Obtain CBC, CRP. Procalcitonin to see if she really had a bacterial infection versus just a viral exacerbation. She can followup in my office next week. She already has an appointment to discuss treatment with no for Mycobacterium avium complex if 2 out of the 3 specimens grow MAC. My suspicion is that inner wall ill grow. CT chest done this admission had opacities showing a significant change to consistent with pneumonia. Mediastinal adenopathy has developed with no IV contrast was given.
[2019-04-25] MEDS: HumaLOG INSULIN (NovoLOG) PER UNIT SC SCH ×4 (08:29→20:59)
[2019-04-25] MEDS: guaiFENesin ER 600 MG TAB PO SCH ×2 (08:29→20:55)
[2019-04-25] MEDS: CYANOCOBALAMIN 500 MCG TAB PO SCH (08:31)
[2019-04-25] MEDS: CitaloPRAM (CeleXA) 20 MG TAB PO SCH (08:31)
[2019-04-25] MEDS: PANTOPRAZOLE 40MG TAB (PROTONIX) PO SCH ×2 (08:31→20:56)
[2019-04-25] MEDS: ASPIRIN 81 MG ENTERIC TAB PO SCH (08:31)
[2019-04-25] MEDS: rOPINIRole 1MG TAB PO SCH ×2 (08:31→20:56)
[2019-04-25] MEDS: ENALAPRIL MALEATE 5 MG TAB PO SCH (08:31)
[2019-04-25] MEDS: GABAPENTIN 300 MG CAP PO SCH ×3 (08:32→20:55)
[2019-04-25] MEDS: predniSONE 20 MG TAB PO SCH (08:32)
[2019-04-25] MEDS: TOPIRAMATE (TopAMAX) 100 MG TAB PO SCH ×2 (08:32→20:55)
[2019-04-25] MEDS: FERROUS SULFATE 325MG TAB PO SCH ×2 (08:32→20:55)
[2019-04-25] MEDS: MULTIVITAMINS/MINERALS THERAP 1 TAB PO SCH (08:32)
[2019-04-25] MEDS: LORATADINE 10 MG TAB PO SCH (08:32)
[2019-04-25] MEDS: PYRIDOSTIGMINE 60 MG TAB PO SCH ×4 (08:32→20:54)
[2019-04-25] MEDS: CEFEPIME HCL 1 GM in D5W MINI-BAG PLUS 50 ML IV SCH (08:32)
[2019-04-25] MEDS: MYCOPHENOLATE MOFETIL 250 MG CAP (J7517) PO SCH ×2 (08:32→20:54)
[2019-04-25] MEDS: AZELASTINE 137MCG NASAL SPY 30 ML (ASTELIN) SCH (08:33)
[2019-04-25] MEDS: CEFDINIR 300 MG CAP (OMNICEF) PO SCH ×2 (09:00→21:28)
--- NOTE | 2019-04-25 10:49 | IPN ---
DATE OF PROCEDURE: 04/25/2019 The patient is examined at the bedside today. She reports that her dyspnea and cough has been progressively improving. She reported that she is no longer coughing up sputum. Denies any fever or chills. Dr. Benites had evaluated the patient and recommended cefdinir 200mg twice a day for her Enterobacter aerogenes. PHYSICAL EXAMINATION: VITAL SIGNS: Temperature 97.0, pulse 76, respiratory rate 18, blood pressure 143/63, pulse ox is 97% on 2 liters nasal cannula. GENERAL: Patient alert. Not in acute distress. Laying comfortably on the bed at the time of the examination. HEENT: Head is normocephalic, atraumatic, bilateral pupils equal and round. Nasal cannula in place. Mucosal appears to be moist. NECK: Supple. CARDIOVASCULAR: Regular rate and rhythm. Normal S1, S2. No murmur. RESPIRATORY: Lungs good air movements. Respiratory crackles and rhonchi auscultated in left lower lobe region. No obvious accessory muscle use or subcostal retraction. ABDOMEN: Soft, nontender. No guarding or distention noted. Bowel sounds auscultated in all four quadrants. NEURO: Cognitive function and memory grossly intact. PSYCH: Stable. Appears to be appropriate to situation. ASSESSMENT/PLAN: 1. Enterobacter aerogenes pneumonia. 2. Bronchiectasis with exacerbation. 3. Mal clearance of secretions on both bases. 4. Obstructive sleep apnea (DMITRI). 5. Myasthenia gravis. 6. One sputum culture positive for Mycobacterium avium complex (MAC), awaiting second culture. RECOMMENDATION: Patient will continue her current prednisone dose at 40 mg by mouth daily. Her antibiotics will be switched to cefdinir BID. It was noted there's only 300mg of Cefdinir capsule in house, thus patient will be started on 300mg BID at this time unless otherwise recommended by the infectious disease team. Patient will continue the expectorant, bronchodilator and therapy vest. Will continue CPAP for naps and at night. Further recommendations will be made in the progress note as new information becomes available. I was physically present for the entire interview and exam and agree with the plan as outlined above MTDD
[2019-04-25] MEDS: rOPINIRole 0.25 MG TAB(REQUIP) PO SCH (11:56)
--- NOTE | 2019-04-25 19:13 | IPNPDOC ---
Text Note Date of Service The patient was seen on 04/25/19. NOTE SUBJECTIVE: Ms. Connor is up in a chair. She is in much improved spirits. Patient was admitted with recurrent bilateral pneumonia due to Enterobacter aerogenes and concern for Mycobacterium avium infection. She has underlying bronchiectasis, COPD and obstructive sleep apnea. OBJECTIVE: Please see vital signs below--patient has remained afebrile overnight and O2 sats range up to 97% on 2 L/m Physical exam: General.: No diaphoresis or facial plethora HENT: Neck is supple, has decreased nasal congestion, oral mucosa is moist, she does not have any adenopathy or thyromegaly, but does have what is described as a "buffalo hump" to the back of her neck. Cardiovascular: Regular rate and rhythm with a normal S1 and S2. Respiratory: Patient has remarkably good air movement, but with bilateral coarse breath sounds today. She has coarse nonproductive cough Abdomen: Soft, nontender, nondistended, morbid central obesity Extremities: No peripheral edema, pedal pulses are palpable. Neuro: No focal neuromotor or sensory deficit. Psych: Patient appears pleased with her clinical improvement today ASSESSMENT/PLAN: 1. The patient appears to have developed a recurrent pneumonia. She had been placed on Vanco and cefepime by the pulmonary service. She is also receiving multiple inhalers, and nebulization treatments. Of interest, the patient again has grown out Enterobacter aerogenes to her sputum. She also has underlying bronchiectasis and currently exhibits reduced sputum production. 2. Mycobacterium avium. This is a new diagnosis. This is based on a sputum sample from her last admission. There are additional sputum sample results pending. Treatment course is to be determined by the infectious disease service. Greatly appreciate their input and assistance. 3. COPD The patient remains on her steroid inhalers and systemic steroids. She demonstrates good activity tolerance with physical therapy with ambulating 150 feet. 4. Obstructive sleep apnea. The patient is maintained on her CPAP during this hospital stay. 5. Hon-bgpejdk-cbjzdnrbo diabetes mellitus We have decreased the patient's Lantus dosing for now to avoid hypoglycemia with good results. VS,Fishbone, I+O VS, Fishbone, I+O Laboratory Tests 04/25/19 05:32 Vital Signs Date Time Temp Pulse Resp B/P (MAP) Pulse Ox O2 Delivery O2 Flow Rate FiO2 04/25/19 16:00 97 Nasal Cannula 2.0 04/25/19 16:00 97.8 95 18 129/64 (85) I&O- Last 24 Hours up to 6 AM 04/25/19 06:00 Intake Total 1820 ml Output Total 3200 ml Balance -1380 ml RICARDO HARVEY MD Apr 25, 2019 19:13
[2019-04-25] MEDS: MONTELUKAST 10 MG TAB PO SCH (20:55)
[2019-04-25] MEDS: FAMOTIDINE 20 MG TAB PO SCH (20:55)
[2019-04-25] MEDS: ATORVASTATIN 20 MG TAB PO SCH (20:56)
[2019-04-25] MEDS: LEVEMIR (INSULIN DETEMIR) 1 UNITS/0.01ML SC SCH (20:57)
[2019-04-26] VITALS (9 sets, daily range): BP systolic 125–144; BP diastolic 59–84; O2SAT 95–97
[2019-04-26] MEDS: HEPARIN SOD (PORCINE) 5000 UNITS/ML VIAL SC SCH (05:49)
[2019-04-26] MEDS: SODIUM CHLORIDE 0.9% INJ 10 ML SYR IV SCH (05:49)
[2019-04-26] MEDS: BUDESONIDE 0.5 MG/2 ML INHALATION SUSPENSION NEB SCH (07:15)
[2019-04-26] MEDS: IPRATROPIUM 0.5MG/ALBUTEROL 2.5MG INH SOL UD 3ML (DUONEB)(J7620) INH SCH ×2 (07:15→11:19)
[2019-04-26] MEDS: INCRUSE ELLIPTA 62.5 MCG INH SCH (07:15)
[2019-04-26] MEDS: BREO ELLIPTA INH SCH (07:15)
[2019-04-26] MEDS: HumaLOG INSULIN (NovoLOG) PER UNIT SC SCH ×2 (08:56→12:54)
[2019-04-26] MEDS: CitaloPRAM (CeleXA) 20 MG TAB PO SCH (08:57)
[2019-04-26] MEDS: PANTOPRAZOLE 40MG TAB (PROTONIX) PO SCH (08:57)
[2019-04-26] MEDS: TOPIRAMATE (TopAMAX) 100 MG TAB PO SCH (08:57)
[2019-04-26] MEDS: ASPIRIN 81 MG ENTERIC TAB PO SCH (08:57)
[2019-04-26] MEDS: FERROUS SULFATE 325MG TAB PO SCH (08:57)
[2019-04-26] MEDS: rOPINIRole 1MG TAB PO SCH (08:57)
[2019-04-26] MEDS: predniSONE 20 MG TAB PO SCH (08:57)
[2019-04-26] MEDS: MYCOPHENOLATE MOFETIL 250 MG CAP (J7517) PO SCH (08:57)
[2019-04-26] MEDS: guaiFENesin ER 600 MG TAB PO SCH (08:58)
[2019-04-26] MEDS: MULTIVITAMINS/MINERALS THERAP 1 TAB PO SCH (08:58)
[2019-04-26] MEDS: GABAPENTIN 300 MG CAP PO SCH (08:58)
[2019-04-26] MEDS: PYRIDOSTIGMINE 60 MG TAB PO SCH ×2 (08:58→12:54)
[2019-04-26] MEDS: CYANOCOBALAMIN 500 MCG TAB PO SCH (08:59)
[2019-04-26] MEDS: ENALAPRIL MALEATE 5 MG TAB PO SCH (08:59)
[2019-04-26] MEDS: AZELASTINE 137MCG NASAL SPY 30 ML (ASTELIN) SCH (08:59)
[2019-04-26] MEDS: LORATADINE 10 MG TAB PO SCH (08:59)
[2019-04-26] MEDS: CEFDINIR 300 MG CAP (OMNICEF) PO SCH (09:07)
[2019-04-26] MEDS ORDERED: PILL CUTTER 1 EACH XX PRN (10:00)
--- NOTE | 2019-04-26 10:41 | IPN ---
DATE OF SERVICE: 04/26/2019 I again attended Jon Connor. I have spoken at length with the patient, as well as Dr. Ortega, who is in charge of her care. She is planned for discharge today. Maximum temperature (Tmax) overnight 97.6, blood pressure 120-140 systolic, heart rate 60-70s with a sinus mechanism, respiratory rate 18-20 without accessory muscle use. No new laboratory results available. On examination, she is awake, alert, and appropriate. Pupils react. Sclerae clear. Trachea is in the midline. She has a right internal jugular (vein) (IJ) triple-lumen in place. Chest shows improved air entry at the left base with minimal crackles compared to yesterday. Right chest is clear. Cardiac examination is regular with no gallop. Peripheral pulses palpable. Trace edema. Abdomen obese, soft, with active bowel sounds. Extremities: No cyanosis or clubbing. Neurologically, she is awake, alert, and appropriate. Psychiatric: appropriate mood and affect. IMPRESSION: 1. Bronchiectasis with exacerbation. 2. Enterobacter aerogenes pneumonia. 3. MAC, question colonization. 4. Myasthenia gravis. 5. Malclearance of secretions, due to a combination of the above. RECOMMENDATIONS: At this point, I am agreeing with her discharge. Antibiotic recommendations per Dr. Benites. I would suggest a longer prednisone taper with 40 mg daily for a solid week and then 30 mg for 5 days and 20 mg for 5 days and 10 mg daily until seen by my office. She has an appointment in early May. Certainly, if she needs to be seen sooner, we can try to move that up. At this point, I am in full agreement with her discharge. She should have a followup CT scan at some point, and will make those arrangements in the outpatient setting. JUN
[2019-04-26] MEDS ORDERED: PRED10TA2 PO (12:00)
[2019-04-26] MEDS ORDERED: CEFD300CAP PO (12:00)
[2019-04-26] MEDS: rOPINIRole 0.25 MG TAB(REQUIP) PO SCH (12:54)
== END 2019-04-26 14:35 | disposition home health service (06) | DRG 137 ==
LOC: M ED 09:01 → M ED INP 13:36 → M PCU 15:27
PROVIDERS: ADMIT Internal Medicine; ATTEND Internal Medicine
DX: J15.6 Pneumonia due to other Gram-negative bacteria (principal); J96.10 Chronic respiratory failure, unspecified whether with hypoxia or hypercapnia; J47.1 Bronchiectasis with (acute) exacerbation; G70.00 Myasthenia gravis without (acute) exacerbation; I48.91 Unspecified atrial fibrillation; G25.81 Restless legs syndrome; I10 Essential (primary) hypertension; Z99.81 Dependence on supplemental oxygen; E66.01 Morbid (severe) obesity due to excess calories; Z79.82 Long term (current) use of aspirin; Z79.899 Other long term (current) drug therapy; G47.33 Obstructive sleep apnea (adult) (pediatric); Z79.4 Long term (current) use of insulin; Z88.2 Allergy status to sulfonamides; Z88.8 Allergy status to other drugs, medicaments and biological substances; M81.0 Age-related osteoporosis without current pathological fracture; F41.9 Anxiety disorder, unspecified; F32.9 Major depressive disorder, single episode, unspecified; K21.9 Gastro-esophageal reflux disease without esophagitis; E11.9 Type 2 diabetes mellitus without complications

== ENCOUNTER → 2019-05-31 | Outpatient (REF) | payer OTHER ==
[~2019-05-31] MED LIST changes: +ACET-897 PO; +AZIT-12 PO; +CEFD300CAP PO; +VITA500045 PO
[2019-05-31 14:09] LABS: ALBUMIN 3.2 GM/DL (3.2-5.2); ALT/SGPT 21 U/L (12-78); BILIRUBIN,TOTAL 0.4 MG/DL (0.2-1.0); BLOOD UREA NITROGEN 9 MG/DL (7-18); CARBON DIOXIDE LEVEL 26 MEQ/L (21-32); CHLORIDE LEVEL 106 MEQ/L (98-107); CREATININE FOR GFR 0.77 MG/DL (0.55-1.30); GLOMERULAR FILTRATION RATE > 60.0 (>51); GLUCOSE, FASTING 198 MG/DL (70-100); POTASSIUM SERUM 4.2 MEQ/L (3.5-5.1); SODIUM LEVEL 139 MEQ/L (136-145); TOTAL PROTEIN 6.6 GM/DL (6.4-8.2)
[2019-05-31 14:28] LABS: IMMUNOGLOBULIN G 914 MG/DL (681-1648); IMMUNOGLOBULIN M 15.3 MG/DL (40-230)
== END ==
LOC: M SFHCPLAZ 09:39
PROVIDERS: ATTEND Internal Medicine Infectious Disease
DX: A31.0 Pulmonary mycobacterial infection (principal); D83.9 Common variable immunodeficiency, unspecified

== ENCOUNTER 2019-06-04 13:58 | Emergency (ER) | payer OTHER ==
[~2019-06-04] VITALS: Ht 160 cm; Wt 118.2 kg
[~2019-06-04 13:58] MED LIST changes: -AZIT-12 PO
--- NOTE | 2019-06-04 14:58 | REP ---
Chest x-ray: Two views. History: Dyspnea and cough. Comparison study April 22, 2019. Findings: There are linear fibrotic and/or atelectatic changes in the left lower lobe. These are improved considerably from the April 22, 2019 prior chest x-ray. No new infiltrate is seen. Oxygen delivery tubing is seen. Pleural angles are sharp. The heart is not enlarged. Impression: Improved aeration left lower lobe compared to the April 22 2019 prior study. No new infiltrate is seen. Normal sized heart. Electronically Signed by Angel Cunningham MD 06/04/2019 02:51 P
[2019-06-04] MEDS ORDERED: AZIT-12 PO (15:07)
[2019-06-04] MEDS ORDERED: IPRATROPIUM 0.5MG/ALBUTEROL 2.5MG INH SOL UD 3ML (DUONEB)(J7620) NEB ONE (16:00)
[2019-06-04 16:36] LABS: HEMATOCRIT 40.5 % (36.0-47.0); HEMOGLOBIN 12.5 g/dl (12.0-15.5); MEAN CORPUSCULAR HEMOGLOBIN 29.7 pg (27.0-33.0); MEAN CORPUSCULAR HGB CONC 30.9 g/dl (32.0-36.5); MEAN CORPUSCULAR VOLUME 96.2 fl (80.0-96.0); PLATELET COUNT, AUTOMATED 302 10^3/uL (150-450); RED BLOOD COUNT 4.21 10^6/uL (4.00-5.40); WHITE BLOOD COUNT 7.3 10^3/uL (4.0-10.0)
[2019-06-04 16:51] LABS: INFLUENZA A AMPLIFICATION NEGATIVE (NEGATIVE); INFLUENZA B AMPLIFICATION NEGATIVE (NEGATIVE)
[2019-06-04 17:07] LABS: ALBUMIN 3.3 GM/DL (3.2-5.2); ALT/SGPT 21 U/L (12-78); BILIRUBIN,DIRECT < 0.1 MG/DL (0.0-0.2); BILIRUBIN,TOTAL 0.2 MG/DL (0.2-1.0); BLOOD UREA NITROGEN 9 MG/DL (7-18); CALCIUM LEVEL 9.2 MG/DL (8.5-10.1); CARBON DIOXIDE LEVEL 23 MEQ/L (21-32); CHLORIDE LEVEL 110 MEQ/L (98-107); CK-MB VALUE MASS < 1.0 NG/ML (<3.6); CPK CREATINE PHOSPHOKINASE 58 U/L (26-192); CREATININE FOR GFR 0.78 MG/DL (0.55-1.30); GLOMERULAR FILTRATION RATE > 60.0 (>51); GLUCOSE, FASTING 132 MG/DL (70-100); LIPASE 179 U/L (73-393); MB/CK RELATIVE INDEX 1.72 (< OR =4); NT-PRO BNP 176 PG/ML (<125); POTASSIUM SERUM 4.2 MEQ/L (3.5-5.1); SODIUM LEVEL 139 MEQ/L (136-145); TROPONIN I < 0.02 NG/ML (< 0.10)
[2019-06-04 17:12] LABS: ANISOCYTOSIS 1+; ATYPICAL LYMPH 9 % (0-5); BASOPHILS 3 % (0-1); EOSINOPHILS 1 % (0-3); LYMPHOCYTES 17 % (16-44); METAMYELOCYTES 1 % (0-0); MONOCYTES 6 % (0-5); NEUTROPHILS 63 % (28-66); PLATELET ESTIMATE NORMAL (NORMAL)
[2019-06-04 17:13] LABS: OVALOCYTES 1+; POIKILOCYTOSIS 1+
--- NOTE | 2019-06-04 18:22 | REPVR ---
PROCEDURE INFORMATION: Exam: CT Head Without Contrast Exam date and time: 06/04/2019 5:57 PM Age: 58 years old Clinical history: Dizziness TECHNIQUE: Imaging protocol: Computed tomography of the head without contrast. Radiation optimization: All CT scans at this facility use at least one of these dose optimization techniques: automated exposure control; mA and/or kV adjustment per patient size (includes targeted exams where dose is matched to clinical indication); or iterative reconstruction. COMPARISON: CT BRAIN LAB SINUSES 05/26/2017 6:12 PM FINDINGS: Brain: Normal. No hemorrhage. Unremarkable white matter. No mass effect. Ventricles: Normal. No ventriculomegaly. Bones/joints: There is hyperostosis frontalis interna. Sinuses: Visualized sinuses are unremarkable. No fluid levels. Mastoid air cells: Visualized mastoid air cells are well aerated. Soft tissues: Unremarkable. IMPRESSION: No acute findings. Electronically signed by: Karri Hernandez On 06/04/2019 18:22:10 PM
--- NOTE | 2019-06-04 18:29 | REPVR ---
PROCEDURE INFORMATION: Exam: CT Abdomen And Pelvis Without Contrast Exam date and time: 06/04/2019 5:59 PM Age: 58 years old Clinical history: Abdominal pain; Epigastric; Additional info: Luq, epigastric abd pain TECHNIQUE: Imaging protocol: Computed tomography of the abdomen and pelvis without contrast. Radiation optimization: All CT scans at this facility use at least one of these dose optimization techniques: automated exposure control; mA and/or kV adjustment per patient size (includes targeted exams where dose is matched to clinical indication); or iterative reconstruction. COMPARISON: CT ABD PELVIS W/O FOL BY WIT 07/06/2016 8:47 AM FINDINGS: Lungs: Bibasilar parenchymal scarring/atelectasis. Liver: Normal. No mass. Gallbladder and bile ducts: There has been a cholecystectomy. Pancreas: Normal. No ductal dilation. Spleen: Normal. No splenomegaly. Adrenals: Normal. No mass. Kidneys and ureters: Small nonobstructive calculus interpolar region left kidney. Stable angiomyolipoma lower pole left kidney. Stomach and bowel: There is poor distention and thickening of the ordoñez of the gastric ordoñez most likely related to incomplete distention with oral contrast media or water. If there is any suspicion for infiltrative pathology further evaluation suggested. Appendix: No evidence of appendicitis. Intraperitoneal space: Unremarkable. No free air. No significant fluid collection. Vasculature: The aorta demonstrates mild atherosclerotic calcification. Lymph nodes: Unremarkable. No enlarged lymph nodes. Bladder: Unremarkable as visualized. Reproductive: There has been a hysterectomy. Bones/joints: Moderate central spinal stenosis L3-4, severe central spinal stenosis L4-5 and bulging annulus L5-S1. Mild anterolisthesis of L4 on L5. The spine demonstrates mild degenerative changes. Soft tissues: Skin thickening and inflammatory changes in the adjacent subcutaneous fat in the lower abdomen panniculus may represent changes related to cellulitis. Other findings: Osteoporosis. IMPRESSION: 1. There has been a cholecystectomy. 2. There has been a hysterectomy. 3. There is poor distention and thickening of the ordoñez of the gastric ordoñez most likely related to incomplete distention with oral contrast media or water. If there is any suspicion for infiltrative pathology further evaluation suggested. 4. Small nonobstructive calculus interpolar region left kidney. 5. Stable angiomyolipoma lower pole left kidney. 6. Possible cellulitis in the lower anterior abdominal wall overlying the panniculus. 7. No other acute findings. Electronically signed by: Karri Hernandez On 06/04/2019 18:28:37 PM
[2019-06-04 19:36] VITALS: BP 127/67
--- NOTE | 2019-06-04 19:58 | ECGEPIP ---
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
--- NOTE | 2019-06-05 16:05 | ED PDOC ---
Post-Departure Follow-Up dr she samayoa faxed formal report of ct abd/p for fu Marni Lincoln MD Jun 05, 2019 16:05
== END 2019-06-04 22:25 | disposition home or self-care (01) ==
LOC: M ED 13:58
DX: R06.02 Shortness of breath (principal); R53.81 Other malaise; R53.83 Other fatigue; A31.0 Pulmonary mycobacterial infection; J44.9 Chronic obstructive pulmonary disease, unspecified; J45.909 Unspecified asthma, uncomplicated; E11.9 Type 2 diabetes mellitus without complications; I10 Essential (primary) hypertension; E78.5 Hyperlipidemia, unspecified; K21.9 Gastro-esophageal reflux disease without esophagitis; G20 Parkinson's disease; G62.9 Polyneuropathy, unspecified; G70.00 Myasthenia gravis without (acute) exacerbation; K44.9 Diaphragmatic hernia without obstruction or gangrene; Z99.81 Dependence on supplemental oxygen; Z79.899 Other long term (current) drug therapy; Z79.82 Long term (current) use of aspirin; Z79.4 Long term (current) use of insulin; Z88.1 Allergy status to other antibiotic agents; Z88.2 Allergy status to sulfonamides; Z88.8 Allergy status to other drugs, medicaments and biological substances

== ENCOUNTER → 2019-07-19 | Outpatient (REF) | payer OTHER ==
[~2019-07-19] MED LIST changes: +AZIT-12 PO
== END ==
LOC: M SFHCPLAZ 11:14
PROVIDERS: ATTEND Internal Medicine Infectious Disease
DX: A31.0 Pulmonary mycobacterial infection (principal)

== ENCOUNTER → 2019-08-06 | Outpatient (CLI) | payer OTHER ==
[~2019-08-06] MED LIST changes: +SUCR1ORA PO; -SUCR1SUS PO
--- NOTE | 2019-08-07 04:18 | REP ---
Clinical: Follow up abnormal lung findings. Technique: Axial noncontrast images from the thoracic inlet to the upper abdomen with coronal and sagittal re-formations. Comparison: 04/22/2019. Findings: The bilateral lung miller are well-aerated and clear. Previously noted multifocal pneumonia has resolved. Minimal chronic linear scarring at the lingula and left base identified. No acute consolidation, effusion, or pneumothorax. Tracheobronchial tree is patent. No adenopathy. The mediastinum demonstrates normal thoracic aorta, pulmonary vasculature and heart/pericardium. Surrounding musculoskeletal structures are intact. Impression: 1. No acute mediastinal or pleuroparenchymal process appreciated. 2. Previously noted infiltrates have resolved. Electronically Signed by Adeel Bowens MD 08/07/2019 04:09 A
== END ==
LOC: M RAD 14:54
PROVIDERS: ATTEND Nurse Practitioner Family
DX: R91.8 Other nonspecific abnormal finding of lung field (principal)

== ENCOUNTER → 2019-09-17 | Outpatient (REF) | payer OTHER ==
[~2019-09-17] MED LIST changes: -ROPI0.5T PO; +ROPI0.5T3 PO; -ROPI1TAB PO; +ROPI1TAB3 PO
[2019-09-17 12:10] LABS: BASO # 0.1 10^3/uL (0.0-0.2); BASO % 0.9 % (0.0-1.0); EOS # 0.2 10^3/uL (0.0-0.5); EOS % 3.5 % (0.0-3.0); HEMATOCRIT 39.4 % (36.0-47.0); HEMOGLOBIN 12.6 g/dl (12.0-15.5); LYMPH # 2.2 10^3/uL (1.5-5.0); LYMPH % 33.7 % (24.0-44.0); MEAN CORPUSCULAR HEMOGLOBIN 31.1 pg (27.0-33.0); MEAN CORPUSCULAR VOLUME 97.3 fl (80.0-96.0); MONO # 0.5 10^3/uL (0.0-0.8); NEUTROPHILS # 3.5 10^3/uL (1.5-8.5); NEUTROPHILS % 53.6 % (36.0-66.0); PLATELET COUNT, AUTOMATED 325 10^3/uL (150-450); RED BLOOD COUNT 4.05 10^6/uL (4.00-5.40); WHITE BLOOD COUNT 6.6 10^3/uL (4.0-10.0)
[2019-09-17 12:47] LABS: ALBUMIN 3.7 GM/DL (3.2-5.2); ALT/SGPT 19 U/L (12-78); BILIRUBIN,TOTAL 0.3 MG/DL (0.2-1.0); BLOOD UREA NITROGEN 13 MG/DL (7-18); CALCIUM LEVEL 9.4 MG/DL (8.8-10.2); CARBON DIOXIDE LEVEL 21 MEQ/L (21-32); CHLORIDE LEVEL 112 MEQ/L (98-107); CREATININE FOR GFR 0.87 MG/DL (0.55-1.30); GLOMERULAR FILTRATION RATE > 60.0 (>45); GLUCOSE, FASTING 87 MG/DL (70-100); POTASSIUM SERUM 4.3 MEQ/L (3.5-5.1); SODIUM LEVEL 141 MEQ/L (136-145); TOTAL PROTEIN 7.2 GM/DL (6.4-8.2)
== END ==
LOC: M SFHCPLAZ 09:37
PROVIDERS: ATTEND Internal Medicine Infectious Disease
DX: A31.0 Pulmonary mycobacterial infection (principal)

== ENCOUNTER → 2019-11-20 | Outpatient (CLI) | payer OTHER ==
--- NOTE | 2019-11-21 02:00 | REPPI ---
Clinical: Mycobacterium avium complex infection . Comparison: 06/04/2019 . Technique: PA and lateral. Findings: The mediastinum and cardiac silhouette are normal. The lung miller are clear and without acute consolidation, effusion, or pneumothorax. The skeletal structures are intact and normal. Impression: 1. No acute cardiopulmonary process. Electronically Signed by Adeel Bowens MD 11/21/2019 01:52 A
== END ==
LOC: M PLAIMG 08:59
PROVIDERS: ATTEND Internal Medicine Infectious Disease
DX: A31.0 Pulmonary mycobacterial infection (principal)

== ENCOUNTER → 2019-11-20 | Outpatient (CLI) | payer OTHER ==
[2019-11-20 12:45] LABS: ALBUMIN 3.8 GM/DL (3.2-5.2); ALT/SGPT 31 U/L (12-78); BASO # 0.1 10^3/uL (0.0-0.2); BILIRUBIN,TOTAL 0.3 MG/DL (0.2-1.0); BLOOD UREA NITROGEN 14 MG/DL (7-18); CALCIUM LEVEL 9.3 MG/DL (8.8-10.2); CARBON DIOXIDE LEVEL 26 MEQ/L (21-32); CHLORIDE LEVEL 109 MEQ/L (98-107); CHOLESTEROL LEVEL 285 MG/DL (<200); CHOLESTEROL RISK RATIO 3.131 (<5); EOS # 0.4 10^3/uL (0.0-0.5); EOS % 3.6 % (0.0-3.0); GLOMERULAR FILTRATION RATE > 60.0 (>45); GLUCOSE, FASTING 110 MG/DL (70-100); HDL CHOLESTEROL 91 MG/DL (>40); HEMATOCRIT 40.3 % (36.0-47.0); HEMOGLOBIN 13.1 g/dl (12.0-15.5); LDL CHOLESTEROL 134 MG/DL (<100); LYMPH # 3.8 10^3/uL (1.5-5.0); LYMPH % 38.6 % (24.0-44.0); MEAN CORPUSCULAR HEMOGLOBIN 32.3 pg (27.0-33.0); MEAN CORPUSCULAR HGB CONC 32.5 g/dl (32.0-36.5); MEAN CORPUSCULAR VOLUME 99.3 fl (80.0-96.0); MONO % 10.1 % (0.0-5.0); NEUTROPHILS # 4.5 10^3/uL (1.5-8.5); NON-HDL-C 194 MG/DL; PLATELET COUNT, AUTOMATED 310 10^3/uL (150-450); POTASSIUM SERUM 5.2 MEQ/L (3.5-5.1); RED BLOOD COUNT 4.06 10^6/uL (4.00-5.40); SODIUM LEVEL 140 MEQ/L (136-145); TOTAL PROTEIN 7.5 GM/DL (6.4-8.2); TRIGLYCERIDES LEVEL 301 MG/DL (<150); WHITE BLOOD COUNT 9.8 10^3/uL (4.0-10.0)
[2019-11-20 12:53] LABS: TOTAL 25(OH) VITAMIN D 50.3 NG/ML (30.0-100.0)
[2019-11-20 14:11] LABS: HEMOGLOBIN A1c 7.5 %
== END ==
LOC: M PLALAB 09:04
PROVIDERS: ATTEND Family Medicine
DX: E11.9 Type 2 diabetes mellitus without complications (principal); E78.5 Hyperlipidemia, unspecified; A31.0 Pulmonary mycobacterial infection; J45.51 Severe persistent asthma with (acute) exacerbation; Z79.52 Long term (current) use of systemic steroids; E55.9 Vitamin D deficiency, unspecified

== ENCOUNTER → 2020-01-10 | Outpatient (REF) | payer OTHER ==
[~2020-01-10] MED LIST changes: -ASPI81TA85 PO; +ASPI81TA86 PO; +ENAL1TAB46 PO; -ENAL2.5T PO; -METF-699 PO; +METF-817 PO
== END ==
LOC: M LAB REF 14:44
PROVIDERS: ATTEND Dermatology
DX: L82.1 Other seborrheic keratosis (principal)

== ENCOUNTER → 2020-02-21 | Outpatient (REF) | payer OTHER | LOC: M SFHCPLAZ 14:31 | PROVIDERS: ATTEND Internal Medicine Infectious Disease | DX: A31.0 Pulmonary mycobacterial infection (principal); J45.909 Unspecified asthma, uncomplicated ==

== ENCOUNTER → 2020-06-16 | Outpatient (REF) | payer OTHER | LOC: M SFHCPLAZ 10:03 | PROVIDERS: ATTEND Internal Medicine Infectious Disease | DX: A31.0 Pulmonary mycobacterial infection (principal) ==

== ENCOUNTER 2020-07-30 19:11 | Inpatient (IN) | payer OTHER ==
[~2020-07-30] VITALS: Ht 160 cm; Wt 114.5 kg
[~2020-07-30 19:11] MED LIST changes: +GABA-282 PO; -GABA-843 PO
--- OUTSIDE RECORDS SUMMARY | 2020-07-30 19:18 | CCD | Continuity of Care Document ---
Author Author [facility] Organization [facility] Address [address] [place] [address] Phone Support Name Relationship Address Phone Lindsay Chapman PRS [facility] [place] [address] Meng Vasquez PRS [address] [place] [address] [place] [address] Doctor Provided, Family No PRS Unknown Unava ilable Yunier Mendoza [facility] [place] [address] Deniz Fields PRS [address] [place] [address] [place] [address] Zara Sparks PRS [address] [place] [address] Allergies, Adverse Reactions, Alerts Allergen Type Severity Reaction Last Updated Verified Status Sulfa (Sulfonamide Antibiotics) Allergy Moderate PRURITIS, HIVES April 14, 2020 10:17am Yes Active fluoxetine Allergy Unkno wn Other, not listed April 14, 2020 10:17a m Yes Active metformin Adverse Reaction Severe LACTIC ACIDOSIS April 14, 2020 10 :17am Yes Active NSAIDS (Non-Steroidal Anti-Inflamma Adverse Reaction Severe GI Upset April 14, 2020 10:17am Yes Active metoclopramide Adverse Reaction Moderate Dyskinesia April 14, 2020 10:17am Yes Active Medications Medication Status Dose Units Route Directions Qty Days Start Date End Date Instructions Albuterol Sulfate Discontinued 2.5 MG NEB Every 4 hours 3 November 08, 2018 10:14p m December 26, 2018 6:28pm Albuterol Sulfate (Ventolin Hfa) 90 mcg/ actuation HFA aerosol inhaler Active 2 PUFFS INH Every 4 hours November 08, 2018 10:16pm use if nebulizer not available Atorvastatin Discontinued 40 MG PO Once Per Day November 08, 2018 10:18pm December 26, 2018 6:28pm Enalapril Maleate Discontinued 2.5 MG PO Once Per Day November 08, 2018 10:19 pm December 26, 2018 6:28pm TAKE THE MOR DOMINIK OF SURGERY WITH SMALL SIP OF WATER Ergocalciferol (Vitamin D2) (Vitamin D2) 50,000 unit c apsule Discontinued [id number] UNIT PO 1 Time Per Week 4 November 08, 2018 10:20pm December 26 9 6:28pm Gabapentin Discontinued 300 MG PO Three times a day November 08, 2018 10:21pm June 18, 2019 1:49pm Pyridostigmine [place] (Mestinon) 60 mg tablet Active 60 MG PO F our Times a Day November 08, 2018 10:24pm Immun Glob G(Igg)-Pro-Iga 0-50 (Hizentra ) 1 gram/5 mL (20 %) solution Discontinued 20 MG SQ Every Week 5 November 08, 2018 10:28pm December 26 9 6:28pm Mycophenolate Mofetil (Cellcept) 500 mg tablet Discontinued 1000 MG PO 2 Times Per Day November 08, 2018 10:32pm December 26, 2018 6:28pm Topiramate (Topamax) 50 mg tablet Di scontinued 100 MG PO At Bedtime 60 November 08, 2018 10:35 pm December 26, 2018 6:28pm Ropinirole Discontinued 1 MG PO At Bedtime November 08, 2018 10:38pm December 26, 2018 6:28pm Ropinirole (Requip) 1 mg tablet Disc ontinued 0.5 MG O nce Per Day November 08, 2018 10:39p m February 18, 2019 11:55am 0.5 mg ora lly in the afternoon Citalopram (Celexa) 40 mg tablet Dis continued 40 MG PO d aily November 08, 2018 10:41 pm November 14, 2018 4:25pm Ipratropium-Albuterol Discontinued 3 ML IH Four Times a Day November 08, 2018 11:1 4pm December 26, 2018 6:28pm VIA NEBULIZER Citalopram (Celexa) 40 mg tablet Dis continued 40 MG PO d aily November 14, 2018 4:25p m December 26, 2018 6:28pm Amoxicillin-Pot Clavulanate (Augmentin) 875-125 mg tab let Discontinued 1 TAB PO 2 Times Per Day November 14, 2018 4:49pm November 21, 2018 2:07pm Lancets (Onetouch Delica Lancets) 33 gauge misc Discontinued 0 .ROUTE .MEDSUPPLY December 06, 2018 3:12pm December 26, 2018 6:28pm to be used AC and HS Insulin Glargine (Basaglar Kwikpen U-100 Insulin) 100 unit/mL (3 mL) insulin pen Discontinued 70 UNIT SQ At Bedtime December 06, 2018 4:18pm December 15, 2018 12:06pm Prednisone Discontinued 20 MG PO daily December 06, 2018 4:23pm December 19, 2018 1:33pm Levofloxacin (Levaquin) 500 mg tablet Discontinued 500 MG PO daily December 06, 2018 4:25 pm December 15, 2018 12:05pm Prednisone Discontinued 40 MG PO daily November 21, 2018 2:02pm December 06, 2018 4:24pm Levofloxacin Discontinued 500 MG PO daily November 21, 2018 2:08pm December 06, 2018 3:12pm Insulin Glargine (Basaglar Kwikpen U-100 Insulin) 100 unit/mL (3 mL) insulin pen Discontinued 65 UNIT SQ At Bedtime December 15, 2018 12:06pm December 26, 2018 6:28pm Prednisone Discontinued 60 MG PO daily December 19, 2018 1:28pm January 19, 2019 11:10am Levofloxacin (Levaquin) 500 mg tablet Discontinued 500 MG PO daily December 19, 2018 1:3 2pm December 26, 2018 6:28pm Esomeprazole Magnesium (Nexium) 40 mg ca psule,delayed release(DR/EC) Discontinued 40 MG PO 2 Times Per Day January 19, 2019 12:25pm July 5:47pm Insulin Glargine (Basaglar Kwikpen U-100 Insulin) 100 unit/mL (3 mL) insulin pen Discontinued 60 UNIT SQ At Bedtime January 19, 2019 12:29pm October 29, 2019 1:57pm Topiramate (Topamax) 100 mg tablet Active 100 MG PO 2 Times Per Day 60 February 19, 2019 11:39am Prednisone Discontinued 40 MG PO daily 40 February 19, 2019 1:40pm May 23, 2019 11:23am Flucelvax Quad (PF) (flu vac q s 2018(4 yr up)CD(PF)) 60 mcg (15 mcg x Discontinued 0.5 ML IM 1 Time/Once 0.5 May 23, 2019 11:07am May 23, 2019 2:21pm Methotrexate Sodium Active MG PO May 23, 2019 11:23am Folic Acid Active MG PO May 23, 2019 11:24am Umeclidinium (Incruse Ellipta) 62.5 mcg/ actuation blister with device Active 1 INH IH daily March 05, 2019 9:39am Doxycycline Hyclate Discontinued 100 MG PO 2 Times Per Day 20 March 05, 2019 1 0:47am April 13, 2019 1:57pm Budesonide Active IH April 13, 2019 1:57pm Insulin Lispro (Humalog Kwikpen Insulin) 100 unit/mL insulin pen Discontinued 1 UNIT SQ before meals and at bedtime April 13, 2019 2:27pm October 29, 2019 1:58pm 1-25 units per sliding scale Lactobacillus Acidophilus Active PO June 26, 2019 4:07pm Aspirin Discontinued MG PO June 26, 2019 4:08pm October 12:36pm Esomeprazole Magnesium Discontinued 40 MG PO 2 Times Per Day 60 October 29, 2019 1: 55pm April 23, 2020 6:46am Insulin Glargine (Basaglar Kwikpen U-100 Insulin) 100 unit/mL (3 mL) insulin pen Discontinued 65 UNIT SQ At Bedtime October 29, 2019 1:56pm October 29, 2019 1:58pm Insulin Glargine (Basaglar Kwikpen U-100 Insulin) 100 unit/mL (3 mL) insulin pen Discontinued 65 UNIT SQ At Bedtime October 29, 2019 1:57pm November 23, 2019 7:37am Insulin Lispro (Humalog Kwikpen Insulin) 100 unit/mL insulin pen Active 1 UNIT SQ before meals and at bedtime October 29, 2019 1:58pm 1- 25 units per sliding scale Famotidine (Pepcid) 20 mg tablet Dis continued 20 MG PO A t Bedtime October 29, 2019 2: 00pm December 26, 2019 12:55pm Loratadine Discontinued 10 MG PO Once Per Day October 29, 2019 2:07pm April 23, 2020 6:46am Montelukast Discontinued 10 MG PO At Bedtime October 29, 2019 2:08pm April 02, 2020 4:41pm Fluticasone Propion-Salmeterol Active INH IH October 15, 2019 9:41am Ascorbic Acid (Vitamin C) Active MG PO October 15, 2019 9:43am Zinc Active 50 MG PO daily October 15, 2019 9:43am Prednisone Discontinued MG PO October 15, 2019 9:43am October 29, 2019 1:59pm Azithromycin Active 500 MG PO every Tuesday, Tuesday, and Tuesday October 15, 2019 11:1 8am Ropinirole Active 2 MG PO 2 Times Per Day October 15, 2019 11:19am Gabapentin Discontinued 300 MG PO Three times a day October 15, 2019 11:20am November 28, 2019 8:09am Sertraline Discontinued 100 MG PO daily October 15, 2019 12:36pm June 19, 2020 9:41am diphth,pertus(acell),tetanus 2.5 Lf unit -8 mcg-5 Lf/0.5mL IM syringe Discontinued 0.5 ML IM 1 Time/Once 0.December 24, 2019 12:47pm December 23, 020 2:25pm Insulin Glargine (Basaglar Kwikpen U-100 Insulin) 100 unit/mL (3 mL) insulin pen Active 65 UNIT SQ At Bedtime December 24, 2019 1:53pm drop to 60 if no bedtime snack Afluria Qd 2019-(3yr up)(PF) (flu vac [id number] 36mos up(PF)) Discontinued 60 MCG IM 1 Time/Once 0.March 21, 2020 2:15pm Septembe r 2019 4:31pm Prevnar 13 (PF) (pneumoc 13-falguni conj-dip cr(PF)) 0.5 mL intramuscular syringe Discontinued 0.5 ML IM 1 Time/Once 0.5 April 14, 2020 7:50am April 14, 2020 9:39am Ipratropium-Albuterol Discontinued 3 ML NEB Four Times a Day August 18, 2014 11:20am January 30, 2015 8:41am Prednisone Discontinued 10 MG PO 0800 August 18, 2014 11:20am August 26, 2014 4:24pm 4 tab PO x 2 days,3 tab PO x 3 days, 2 tab PO x 3 days, 1 tab PO x 3 days. Prednisone Discontinued 50 MG PO Once Per Day 4 January 30, 2016 5:56pm March 29, 2016 10:19am start 01/30 Topiramate Discontinued 100 MG PO At Bedtime April 07, 2016 8:17am November 09, 2016 10:58am Topiramate (Topamax) 50 MG tablet Di scontinued 50 MG PO O nce Per Day April 07, 2016 8:21am November 09, 2016 10:58am Ergocalciferol (Vitamin D2) (Vitamin D2) 50,000 UNITS capsule Discontinued [id number] UNITS PO WE@0900 April 07, 2016 8:22am April 14, 2016 8:59am Sitagliptin (Januvia) 100 MG tablet Discontinued 100 MG PO Once Per Day April 07, 2016 8:23am September 13, 2016 9:15am Ropinirole Discontinued 1 MG PO 2 Times Per Day April 07, 2016 8:25am October 04, 2016 5:55pm Ranitidine Hcl Discontinued 300 MG PO At Bedtime April 07, 2016 8:28am April 09, 2016 2:21pm Pyridostigmine [place] Discontinued 60 MG PO Four Times a Day April 07, 2016 8:30am November 14, 2018 3:35pm Mycophenolate Mofetil (Cellcept) 500 MG tablet Discontinued 1000 MG PO 2 Times Per Day April 07, 2016 8:36am January 30, 2018 9:56am Metformin Discontinued 1 000 MG PO 2 Times Per Day WI TH Meals April 07, 2016 8:39am June 08, 2016 7:09pm Aspirin Discontinued 325 MG PO Once Per Day April 07, 2016 8:40am June 08, 2016 7:10pm Esomeprazole Magnesium (Nexium) 22.3 mg capsule,delayed release(DR/EC) Discontinued 22.3 MG PO 2 Times Per Day WITH Meals April 07, 2016 8:53am April 09, 2016 2:20pm Cyanocobalamin (Vitamin B-12) (Vitamin B-12) 100 MCG t ablet Discontinued 500 MCG PO Once Per Day April 07, 2016 8:54am November 3:10pm Albuterol Sulfate (Ventolin Hfa) 200 PUF FS/18 GM HFA aerosol inhaler Discontinued 2 PUFFS INH Every 4 hours April 07, 2016 8:58am June 07, 2016 3:12pm Repaglinide Discontinued 4 MG PO BID@1200,1800 April 07, 2016 9:24am June 13, 2016 8:29pm Montelukast Discontinued 10 MG PO DAILY@1800 April 07, 2016 9:26am October 05, 2016 3:26pm Fluticasone Furoate-Vilanterol (Breo Ell ipta) 200-25 mcg/dose blister with device Discontinued 1 MCG INH Once Per Day September 20, 2016 4:02pm September 27, 2016 12:36pm Prednisone Discontinued 10 MG PO Once Per Day January 07, 2017 5:52pm January 17, 2017 3:01pm 4 po qd x 3 days then 3 po qd x 2 days t hen 2 po qd x 2 days then 1 po qd x 3 days then stop... #25 tabs Levofloxacin (Levaquin) 500 MG tablet Discontinued 500 MG PO Once Per Day January 07, 2017 5:53pm January 17, 2017 2:58pm Prednisone Discontinued 30 MG PO 2 Times Per Day WI TH Meals 45 January 17, 2017 2:5 5pm March 09, 2017 1:18pm Doxycycline Hyclate Discontinued 100 MG PO 2 Times Per Day January 17, 2017 3:0 1pm January 21, 2017 10:25am Ropinirole (Requip) 0.5 MG tablet Di scontinued 0.5 MG PO Once Per Day March 25, 2017 12:27am January 30, 2018 9:21am Fluticasone Furoate-Vilanterol (Breo Ell ipta) 200-25 mcg/dose blister with device Discontinued 1 EACH IH 2 Times Per Day March 25, 2017 12:41am April 20, 2018 10:31am Fluticasone Propionate (Flovent Diskus) 50 MCG blister with device Discontinued March 25, 2017 12:51am March 25, 2017 12:58am Doxycycline Monohydrate Discontinued 100 MG PO 2 Times Per Day April 16, 2017 12 :23pm April 18, 2017 1:58pm Insulin Lispro (Humalog U-100 Insulin) 100 UNITS/ML so lution Discontinued 1 UNIT SC 4x/Day BEFORE Meals & HS PRN April 16, 2017 12:23pm July 12, 2017 4:09pm Sliding scale per home. Amoxicillin-Pot Clavulanate Discontinued 1 TAB PO Every 12 Hours 4 April 16, 2017 12 :23pm April 18, 2017 1:58pm Prednisone Discontinued 60 MG PO Once Per Day 42 April 16, 2017 12:25pm April 18, 2017 2:04pm Esomeprazole Magnesium (Nexium) 22.3 mg capsule,delayed release(DR/EC) Discontinued 20 MG PO 2 Times Per Day 60 April 16, 2017 12:26pm October 13, 2017 11:03am Citalopram Discontinued 40 MG PO Once Per Day May 15, 2017 10:43pm November 08, 2018 10:41pm Cholecalciferol (Vitamin D3) (Vitamin D3) 400 UNIT tab let Discontinued 1000 MG PO Once Per Day May 15, 2017 10:43pm May 27, 2017 5:04pm Prednisone Discontinued 60 MG PO Once Per Day 50 June 01, 2017 8:30am June 06, 2017 9:44am Cefpodoxime Discontinued 200 MG PO Every 12 Hours 10 October 23, 2017 2:25pm October 26, 2017 12:34pm Azithromycin Discontinued 250 MG PO Once Per Day 4 October 23, 2017 2:27pm November 09, 2017 2:54pm Amoxicillin-Pot Clavulanate (Augmentin 8 75-125 Tablet) 875-125 mg tablet Discontinued 1 EACH PO 2 Times Per Day March 30, 2018 1:14pm [facility] 10[facility] Prednisone Discontinued 10 MG PO TAPER March 30, 2018 1:14pm April 20, 2018 9:19am 4 tabs daily for 3 days, then 3 tabs nicolle ly for 3 days, then 2 tabs daily for 3 days, then 1 tab daily for 3 days Codeine-Guaifenesin Discontinued 5 ML PO Every 6 hours March 30, 2018 1:15pm April 20, 2018 9:19am Doxycycline Monohydrate Discontinued 100 MG PO 2 Times Per Day April 13, 2018 6 :56pm May 03, 2018 9:33am Prednisone Discontinued 60 MG PO Every Morning April 13, 2018 7:07pm April 20, 2018 9:19am Prednisone Discontinued 10 MG PO Once Per Day May 03, 2018 8:49pm May 08, 2018 10:00am Immun Glob G(Igg)-Pro-Iga 0-50 (Hizentra) 4 GM/20 ML s olution Discontinued 20 GM SC EVERY 7 DAYS May 06, 2018 9:25am November 08 10:32pm Ropinirole (Requip) 1 MG tablet Disc ontinued 0.5 MG PO 1200 May 06, 2018 9 :41am November 08, 2018 10:45pm Mycophenolate Mofetil Discontinued 1000 MG PO 2 Times Per Day May 06, 2018 9 :44am November 14, 2018 3:35pm Topiramate (Topamax) 100 MG tablet D iscontinued 100 MG PO At Bedtime May 06, 2018 9 :47am November 08, 2018 10:35pm Topiramate Discontinued 50 MG PO Once Per Day May 06, 2018 9:47am November 08, 2018 10:37pm Doxycycline Hyclate Discontinued 100 MG PO 2 Times Per Day 10 May 08, 2018 10:00am May 17, 2018 4:46pm Nystatin Discontinued 10 ML PO Three times a day 300 May 08, 2018 10:05am May 17, 2018 5:32pm Cefuroxime Axetil Discontinued 250 MG PO 2 Times Per Day August 13, 2018 5:24pm August 21, 2018 8:26am Prednisone Discontinued 10 MG PO TAPER August 13, 2018 5:25pm August 16, 2018 4:58pm 4 tabs daily for 3 days, then 3 tabs nicolle ly for 3 days, then 2 tabs daily for 3 days, then 1 tab daily for 3 days Topiramate (Topamax) 50 MG tablet Di scontinued 50 MG PO O nce Per Day September 10, 2018 3:46 pm September 12, 2018 10:57am Insulin Glargine (Lantus U-100 Insulin) 100 UNITS/ML s olution Discontinued 80 UNITS SQ At Bedtime September 10, 2018 3:58pm October 22 8:26pm Methylprednisolone (Medrol*) 4 MG tablets,dose pack Discontinued 4 MG PO TAPER September 13, 2018 10:00am September 18, 2018 10:00am Tapered-dosage schedule (eg, dose-pack c ontaining 21 x 4 mg tablets FOLLOW DOSING INSTRUCTIONS ON PACKAGE Levofloxacin (Levaquin) 750 MG tablet Discontinued 750 MG PO Once Per Day 7 7 September 13, 2018 10:00am September 18, 2018 10:09am Oseltamivir (Tamiflu) 75 MG capsule Discontinued 75 MG PO 2 Times Per Day 2 September 18, 2018 9:50am September 20, 2018 2:12pm Lactobacillus Rhamnosus Gg (Culturelle) 1 CAPSULE caps ule Discontinued 1 CAP PO Once Per Day 10 September 18, 2018 9:50am October 10, 2 019 11:22am Levofloxacin (Levaquin) 750 MG tablet Discontinued 750 MG PO Once Per Day 3 3 September 18, 2018 10:09am September 20, 2018 3:39pm Prednisone Discontinued 5 MG PO Once Per Day 36 8 September 18, 2018 10:12am September 20, 2018 3:39pm 40mg 1st, 35mg 2nd, 30mg 3rd, 25mg 4th, 20mg 5th, 15mg 6th, 10mg 7th, 5mg 8th. Doxycycline Monohydrate Discontinued 100 MG PO 2 Times Per Day 14 October 13, 2018 2:3 6pm October 26, 2018 8:53am Lactobacillus Acidophilus (Acidophilus) capsule Discontinued 1 EACH PO 2 Times Per Day 30 October 13, 2018 2:36pm November 08, 2018 11:15pm Amoxicillin-Pot Clavulanate (Augmentin 5 00-125 Tablet) 500-125 mg tablet Discontinued 1 EACH PO 2 Times Per Day 14 October 13, 2018 2:36pm October 26, 2 019 8:53am Prednisone Discontinued 10 MG PO TAPER 44 October 13, 2018 3:00pm October 18, 2018 3:38pm 4tabs BID x 2days, 3tabs BID x 2days, 2t abs BID x 2days, 1tab BID x 2days, 1tab BID x 2days, 1tab daily x 2days Levofloxacin (Levaquin) 500 MG tablet Discontinued 500 MG PO Once Per Day 10 October 26, 2018 8:55am November 08, 2018 10:37pm Atorvastatin Discontinued 40 MG PO Once Per Day December 26, 2018 6:28pm October 25, 2019 6:25am Ropinirole Discontinued 1 MG PO At Bedtime December 26, 2018 6:28pm December 26, 2018 8:17pm Ropinirole Discontinued 1 MG PO 2 Times Per Day December 26, 2018 6:28pm October 15, 2019 11:23am 1mg morning and night, 0.5mg in the afternoon AND 0.5 TAB AT 2PM. Ipratropium-Albuterol Active 3 ML IH Four Times a Day December 26, 2018 6:28 pm VIA NEBULIZER Albuterol Sulfate Active 2.5 MG NEB Every 4 hours December 26, 2018 6:28pm Citalopram (Celexa) 40 mg tablet Dis continued 40 MG PO d aily December 26, 2018 6:28 pm May 04, 2019 1:45pm Enalapril Maleate Discontinued 2.5 MG PO Once Per Day December 26, 2018 6:28 pm July 14, 2019 8:27am Blood Sugar Diagnostic (RUN Verio Test Strips) st rip Discontinued STRIP MC .MEDSUPPLY December 26, 2018 6:28pm January 26 4:37pm Use 1 test strip to test 4x per day Mycophenolate Mofetil (Cellcept) 500 mg tablet Discontinued 1000 MG PO 2 Times Per Day December 26, 2018 6:28pm May 23, 2019 11:23am Alprazolam (Xanax) 0.25 MG tablet Di scontinued 0.25 MG PO Three times a day PRN December 26, 2018 6:28pm October 15, 2019 12:11pm Reference #: [id number] Ranitidine Hcl Discontinued 300 MG PO At Bedtime December 26, 2018 6:28pm January 13, 2019 9:00pm Montelukast Discontinued 10 MG PO At Bedtime December 26, 2018 6:28pm October 29, 2019 2:09pm Ergocalciferol (Vitamin D2) (Vitamin D2) 50,000 unit c apsule Discontinued [id number] UNIT PO 1 Time Per Week December 26, 2018 6:28pm January 13 8:57pm weekly on TUE. Levofloxacin (Levaquin) 500 mg tablet Discontinued 500 MG PO daily December 26, 2018 6:28 pm January 13, 2019 9:01pm Loratadine Discontinued 10 MG PO Once Per Day December 26, 2018 6:28pm October 29, 2019 2:08pm Esomeprazole Magnesium (Nexium) 22.3 mg capsule,delayed release(DR/EC) Discontinued 20 MG PO 2 Times Per Day December 26, 2018 6:28pm January 13 9 8:59pm Topiramate (Topamax) 50 mg tablet Di scontinued 100 MG PO At Bedtime December 26, 2018 6:28 pm February 19, 2019 11:38am Insulin Glargine (Basaglar Kwikpen U-100 Insulin) 100 unit/mL (3 mL) insulin pen Discontinued 65 UNIT SQ At Bedtime December 26, 2018 6:28pm January 19, 2019 12:29pm Immun Glob G(Igg)-Pro-Iga 0-50 (Hizentra ) 1 gram/5 mL (20 %) solution Active 20 GM SQ Every Week December 26, 2018 6:28pm weekly on Saturdays Pen Needle,Diabetic Dual Safty (Bd Autos hield Duo Pen Needle) 1 EACH needle Active EACH MC December 26, 2018 6:28pm Lancets (Onetouch Delica Lancets) 33 gauge misc Discontinued gauge .MEDSUPPLY December 26, 2018 6:28pm June 01, 2019 3:58pm to be used AC and HS Fluticasone Furoate-Vilanterol (Breo Ell ipta) 1 EACH blister with device Discontinued 1 EACH IH Once Per Day December 26, 2018 6:28pm October 14 9:42am Piperacillin-Tazobactam Discontinued 3.375 GM IV Every 6 hours December 27, 2018 8:49 am February 07, 2019 11:24am Enoxaparin (Lovenox) 40 mg/0.4 mL Syringe Discontinued 40 MG SQ O nce Per Day December 27, 2018 8:50am January 19, 2019 12:25pm Methylprednisolone Sod Suc(Pf) (Solu-Med rol (Pf)) 40 mg/mL Recon Soln Discontinued 40 MG IVP Every 12 Hours December 27, 2018 8:50am February 18, 2019 11:54am Ropinirole Discontinued 2 MG PO 2 Times Per Day October 15, 2019 11:am October 29, 2019 2:00pm 1mg morning and night, 0.5mg in the afternoon AND 0.5 TAB AT 2PM. Nitrofurantoin Monohyd/M-Cryst (Macrobid) 100 mg capsu le Discontinued 100 MG PO 2 Times Per Day 29 04February 07, 2019 11:21am February 16, 2019 11:00pm must administer with a meal/food Metformin (Glucophage Xr) 500 mg tablet extended release 24 hr Discontinued 500 MG PO 2 Times Per Day October 09, 2010 7:46am October 09 10:02am Metformin (Glucophage Xr) 500 mg tablet extended release 24 hr Discontinued 500 MG PO 2 Times Per Day October 09, 2010 10:02am July 9:43am Blood Sugar Diagnostic (Accu-Chek Comfort Curve Test) strip Discontinued 1 EACH MC 2 Times Per Day 100 December 02, 2010 12:43pm August 8:39am Albuterol Sulf (ALBUTEROL 0.083% INH MARCELLO 3ML UNIT DOSE ) Discontinued 1 VIAL IH Four Times a Day December 02, 2010 1:05pm October 20 9:33am Fexofenadine Hcl (Mare) Discontinued 1 TAB PO Once Per Day December 02, 2010 1:06 pm February 05, 2011 12:35pm Ramipril Discontinued 1 CAP PO Once Per Day December 02, 2010 1:07pm February 03, 2011 1:18pm Meclizine (Antivert) 25 mg tablet Di scontinued 1 TAB PO T hree times a day December 02, 2010 1:08pm July 20, 2011 9:43am Glimepiride (Amaryl) 4 mg tablet Dis continued 1 TAB PO 2 Times Per Day 60 December 02, 2010 1:08 pm February 05, 2011 12:35pm Aspirin (Ecotrin Low Strength) 81 mg tab let,delayed release (DR/EC) Discontinued 1 TAB PO Once Per Day December 02, 2010 1:16pm April 28, 2011 1:21pm Ferrous Sulfate Discontinued 1 TAB PO Once Per Day 0 December 02, 2010 1:17pm February 24, 2012 8:46am Cyclobenzaprine Hcl (Flexeril) Discontinue d 1 TAB PO Three times a day December 02, 2010 1:17p m February 24, 2012 8:45am Formoterol Fumarate (Foradil Aerolizer) 12 mcg capsule, w/inhalation device Discontinued 1 PUFFS IH 2 Times Per Day December 02, 2010 1:18pm May 07, 2011 1:38pm Metformin (Glucophage Xr) 500 mg tablet extended release 24 hr Discontinued 2 TAB PO 2 Times Per Day December 02, 2010 1:19pm March 18, 2011 3:46pm Sitagliptin (Januvia) 100 mg tablet Discontinued 1 TAB PO O nce Per Day December 02, 2010 1:19 pm February 05, 2011 12:35pm Multivitamin (Daily Multi-Vitamin) tablet Active 1 TAB PO O nce Per Day 0 December 02, 2010 1:20p m Gabapentin (Neurontin) Discontinued 1 TAB PO 2 Times Per Day December 02, 2010 1:20 pm February 03, 2011 1:18pm Esomeprazole Magnesium (Nexium) 40 mg ca psule,delayed release(DR/EC) Discontinued 1 TAB PO Once Per Day December 02, 2010 1:21pm February 05 1 12:35pm Clopidogrel (Plavix) 75 mg tablet Di scontinued 1 TAB PO O nce Per Day December 02, 2010 1:22 pm February 03, 2011 1:18pm Nortriptyline Discontinued 1 CAP PO At Bedtime December 02, 2010 1:22pm May 28, 2011 4:10pm Repaglinide (Prandin) 1 mg tablet Di scontinued 2 TAB PO T hree times a day December 02, 2010 1:24pm December 21, 2010 5:08pm Primidone Discontinued 2 TAB PO At Bedtime December 02, 2010 1:30pm November 26, 2011 9:09am Ropinirole (Requip) 0.5 mg tablet Di scontinued 2 TAB PO A t Bedtime December 02, 2010 1:3 1pm June 08, 2011 9:35am Simvastatin (Simvastatin (Zocor)) Di scontinued 1 TAB PO A t Bedtime December 02, 2010 1:32 pm February 05, 2011 12:35pm Montelukast (Singulair) 10 mg tablet Discontinued 1 TAB PO O nce Per Day December 02, 2010 1:33 pm February 05, 2011 12:35pm Tramadol (Ultram) 50 mg tablet Discontinue d 1 - 2 TAB PO Three times a day December 02, 2010 1:34pm May 07, 2011 1:38pm Fenofibric Acid (Choline) (Trilipix) 135 mg capsule,delayed release(DR/EC) Discontinued 1 TAB PO Once Per Day December 02, 2010 1:34pm February 05 12:35pm Cyanocobalamin (Vitamin B-12) (Vitamin B-12) 500 mcg t ablet Discontinued 1 TAB PO Once Per Day December 02, 2010 1:35pm March 8:56am Sertraline (Zoloft) 100 mg tablet Di scontinued 1 TAB PO O nce Per Day December 02, 2010 1:36 pm December 03, 2010 9:37am Ezetimibe (Zetia) 10 mg tablet Discontinue d 1 TAB PO Once Per Day December 02, 2010 1:36 pm February 05, 2011 12:35pm Alprazolam (Xanax) 0.25 mg tablet Di scontinued 0.25 MG PO Three times a day December 03, 2010 9:37am February 02, 2011 9:49am Aspirin (Ecotrin) 325 mg tablet,delayed release (DR/EC ) Discontinued 325 MG PO Once Per Day December 03, 2010 9:38am May 07, 2011 1:38pm Repaglinide (Prandin (Repaglinide)) Discontinued 4 MG PO Th ree times a day 180 December 21, 2010 5:08pm April 05, 2011 4:16pm Ciprofloxacin Hcl (Cipro) 500 mg tablet Discontinued 500 MG PO 2 Times Per Day January 19, 2011 8:14am February 02, 2011 9:48am Fluconazole (Diflucan) 150 mg tablet Discontinued 150 MG PO ONE TIME 1 January 19, 2011 1:20 pm February 02, 2011 9:48am Alprazolam (Xanax) 0.25 mg tablet Di scontinued 0.25 MG PO Four Times a Day 60 February 02, 2011 9:49am July 20, 2011 9:28am Clopidogrel (Plavix) 75 mg tablet Di scontinued 1 TAB PO O nce Per Day February 03, 2011 1:1 8pm May 07, 2011 1:46pm Ramipril Discontinued 1 CAP PO Once Per Day February 03, 2011 1:18pm May 07, 2011 1:38pm Gabapentin (Neurontin) Discontinued 1 TAB PO 2 Times Per Day 60 February 03, 2011 1:1 8pm August 12, 2011 9:38am Esomeprazole Magnesium (Nexium) 40 mg ca psule,delayed release(DR/EC) Discontinued 1 TAB PO Once Per Day February 05, 2011 12:35pm April 13, 2011 11:18am Glimepiride (Amaryl) 4 mg tablet Dis continued 1 TAB PO 2 Times Per Day February 05, 2011 12:35pm August 11, 2011 5:30pm Montelukast (Singulair) 10 mg tablet Discontinued 1 TAB PO O nce Per Day February 05, 2011 12:35pm March 09, 2011 2:16pm Ezetimibe (Zetia) 10 mg tablet Discontinue d 1 TAB PO Once Per Day February 05, 2011 12: 35pm August 12, 2011 9:38am Sitagliptin (Januvia) 100 mg tablet Discontinued 1 TAB PO O nce Per Day February 05, 2011 12:35pm May 28, 2011 4:10pm Fenofibric Acid (Choline) (Trilipix) 135 mg capsule,delayed release(DR/EC) Discontinued 1 TAB PO Once Per Day February 05, 2011 12:35pm August 9:38am Fexofenadine Hcl (Mare) Discontinued 1 TAB PO Once Per Day February 05, 2011 12: 35pm April 28, 2011 1:21pm Simvastatin (Simvastatin (Zocor)) Di scontinued 1 TAB PO A t Bedtime February 05, 2011 12: 35pm March 09, 2011 2:16pm Mometasone (Asmanex Twisthaler) 220 mcg (30 doses) aerosol powdr breath activated Discontinued 220 MCG IH 2 Times Per Day February 10, 2011 2:19pm February 10, 2011 2:20pm Mometasone (Asmanex Twisthaler) 220 mcg (30 doses) aerosol powdr breath activated Discontinued 220 MCG IH 2 Times Per Day February 10, 2011 2:20pm March 29, 2011 9:56am Montelukast (Singulair) 10 mg tablet Discontinued 1 TAB PO O nce Per Day March 09, 2011 2:16pm September 07, 2011 8:21am Simvastatin (Simvastatin (Zocor)) Di scontinued 1 TAB PO A t Bedtime March 09, 2011 2 :16pm September 07, 2011 8:21am Lancets (Onetouch Delica Lancets) 33 gauge misc Discontinued 1 EACH TP Three times a day March 18, 2011 4:04pm March 18, 2011 4:04pm Lancets (Onetouch Delica Lancets) 33 gauge misc Discontinued 1 EACH TP Three times a day March 18, 2011 4:04pm September 06, 2011 8:59pm Ciprofloxacin Hcl (Cipro) 500 mg tablet Discontinued 500 MG GT 2 Times Per Day March 18, 2011 4:28pm April 05, 2011 4:16pm Fluconazole (Diflucan) 150 mg tablet Discontinued 150 MG PO ONE TIME March 22, 2011 7:44am April 06, 2011 1:28pm Mometasone (Asmanex Twisthaler) 220 mcg (30 doses) aerosol powdr breath activated Discontinued 1 PUFFS IH 2 Times Per Day 60 March 29, 2011 9:56am March 29, 2011 11:09am Mometasone (Asmanex Twisthaler) 220 mcg (30 doses) aerosol powdr breath activated Discontinued 2 PUFFS IH 2 Times Per Day 120 March 29, 2011 11:09am April 05, 2011 4:16pm Ciprofloxacin Hcl (Cipro) 500 mg tablet Discontinued 500 MG GT 2 Times Per Day April 05, 2011 4:16pm April 28, 2011 1:21pm Mometasone (Asmanex Twisthaler) 220 mcg (30 doses) aerosol powdr breath activated Discontinued 2 PUFFS IH 2 Times Per Day April 05, 2011 4:16pm October 19, 2011 1:14pm Repaglinide (Prandin (Repaglinide)) Discontinued 4 MG PO 2 Times Per Day April 05, 2011 4:16pm October 11, 2011 3:46pm Fluconazole (Diflucan) 150 mg tablet Discontinued 150 MG PO ONE TIME April 06, 2011 1:28pm April 28, 2011 1:21pm Esomeprazole Magnesium (Nexium) 40 mg ca psule,delayed release(DR/EC) Discontinued 1 TAB PO 2 Times Per Day April 09, 2011 4:16pm May 07, 2011 1:14pm Metronidazole (Flagyl) 500 mg tablet Discontinued 500 MG PO Three times a day April 28, 2011 1:51pm May 07, 2011 1:38pm Ciprofloxacin Hcl (Cipro) 500 mg tablet Discontinued 500 MG PO 2 Times Per Day April 28, 2011 1:51pm May 07, 2011 1:38pm Esomeprazole Magnesium (Nexium) 40 mg ca psule,delayed release(DR/EC) Discontinued 1 TAB PO 2 Times Per Day 60 May 07, 2011 1:14pm May 072010 1:38pm Ciprofloxacin Hcl (Cipro) 500 mg tablet Discontinued 500 MG PO 2 Times Per Day 20 May 07, 2011 1:38pm May 28, 2011 4:10pm Tramadol (Ultram) 50 mg tablet Discontinue d 1 - 2 TAB PO Three times a day 60 May 07, 2011 1:38pm January 18, 2012 1:16pm Formoterol Fumarate (Foradil Aerolizer) 12 mcg capsule, w/inhalation device Discontinued 1 PUFFS IH 2 Times Per Day 1 May 07, 2011 1:38pm October 19, 2011 1:35pm Esomeprazole Magnesium (Nexium) 40 mg ca psule,delayed release(DR/EC) Discontinued 1 TAB PO 2 Times Per Day 60 May 07, 2011 1:38pm July 202011 9:43am Ramipril Discontinued 1 CAP PO Once Per Day May 07, 2011 1:38pm November 11, 2011 8:48am Clopidogrel (Plavix) 75 mg tablet Di scontinued 1 TAB PO O nce Per Day May 07, 2011 1:46pm May 28, 2011 4:09pm INFLUENZA TV-S 11-12 VACCINE (FLUZONE ) Discontinued 0.5 MILLILITRE IM ONE TIME May 07, 2011 3:40pm May 07, 2011 3:41pm Cholecalciferol (Vitamin D) Discontinued 1 TAB PO Once Per Day May 26, 2011 6:52pm October 18, 2011 6:47pm Fluconazole (Diflucan) 150 mg tablet Discontinued 150 MG PO ONE TIME May 26, 2011 6:53pm May 28, 2011 4:09pm Ropinirole (Requip) 0.5 mg tablet Di scontinued 2 TAB PO A t Bedtime May 28 1 4:10pm November 26, 2011 9:09am Aspirin (Ecotrin) 325 mg tablet,delayed release (DR/EC ) Discontinued 1 TAB PO Once Per Day June 09, 2011 3:32pm December 13, 2011 8:31am Ranitidine Hcl (Zantac) 300 mg tablet Discontinued 300 MG PO At Bedtime June 11, 2011 9:28am December 13, 2011 8:31am Ondansetron Hcl Discontinued 8 MG PO Three times a day June 11, 2011 9:28am October 19, 2011 12:55pm Ciprofloxacin Hcl (Cipro) 500 mg tablet Discontinued 500 MG PO 2 Times Per Day June 11, 2011 9:28am July 20, 2011 9:28am Alprazolam (Xanax) 0.25 mg tablet Di scontinued 0.25 MG PO Four Times a Day 60 July 20, 2011 9:28am October 17, 2012 1:50pm Meclizine (Antivert) 25 mg tablet Di scontinued 1 TAB PO T hree times a day 90 July 20, 2011 9:43am January 30, 2013 12:11pm Esomeprazole Magnesium (Nexium) 40 mg ca psule,delayed release(DR/EC) Discontinued 1 TAB PO 2 Times Per Day 60 July 20, 2011 9:43am January 18, 2012 1:17pm Metformin (Glucophage Xr) 500 mg tablet extended release 24 hr Discontinued 500 MG PO 2 Times Per Day 120 July 20, 2011 9:43am January 18, 2012 1:17pm Azithromycin (Zithromax) 250 mg tablet Discontinued 500 MG PO Once Per Day 6 July 20, 2011 9:55am August 03, 2011 2:19pm Hydrocortisone (Hydrocortisone Cream 1%) Discontinued 1 GM TOP 2 Times Per Day July 20, 2011 9:55am October 19, 2011 12:55pm Fluconazole (Diflucan) 150 mg tablet Discontinued 150 MG PO ONE TIME July 20, 2011 9 :56am August 03, 2011 2:43pm Nystatin-Triamcinolone Discontinued 1 GM TP 2 Times Per Day 60 August 03, 2011 2:43pm December 07, 2011 11:26am Glimepiride (Amaryl) 4 mg tablet Dis continued 1 TAB PO 2 Times Per Day August 11, 2011 5:30pm February 07, 2012 12:46pm Ezetimibe (Zetia) 10 mg tablet Discontinue d 1 TAB PO Once Per Day August 12, 2011 9:38am February 07, 2012 12:46pm Fenofibric Acid (Choline) (Trilipix) 135 mg capsule,delayed release(DR/EC) Discontinued 1 TAB PO Once Per Day August 12, 2011 9:38am February 11:26am Gabapentin (Neurontin) Discontinued 1 TAB PO 2 Times Per Day 60 August 12, 2011 9:38am November 26, 2011 9:16am Lancets (Onetouch Delica Lancets) 33 gauge misc Discontinued 1 EACH TP Three times a day 100 September 06, 2011 8:59pm September 07, 2011 8:21am Albuterol Sulfate Discontinued 1 - 2 PUFFS IH Q4HRS September 07, 2011 8:20am September 07, 2011 8:21am Montelukast (Singulair) 10 mg tablet Discontinued 1 TAB PO O nce Per Day September 07, 2011 8:21am March 11, 2012 6:22pm Albuterol Sulfate Discontinued 1 - 2 PUFFS IH Q4HRS September 07, 2011 8:21am February 09, 2012 7:12am Lancets (Onetouch Delica Lancets) 33 gauge misc Discontinued 1 EACH TP Three times a day September 07, 2011 8:21am August 14, 2012 12:53pm Simvastatin (Simvastatin (Zocor)) Di scontinued 1 TAB PO A t Bedtime September 07, 2011 8:21am February 24, 2012 8:35am Blood Sugar Diagnostic (Accu-Chek Comfort Curve Test) strip Discontinued 1 EACH MC 2 Times Per Day September 08, 2011 8:39am August 14, 2012 12:53pm Repaglinide (Prandin (Repaglinide)) Discontinued 4 MG PO 2 Times Per Day October 11, 2011 3:46pm December 13, 2011 8:32am Ergocalciferol (Vitamin D2) (Vitamin D2) Discontinued [id number] UNITS PO 3XWEEKLY October 18, 2011 6:47pm January 18, 2012 1:17pm Budesonide (Pulmicort) Discontinued 180 MCG IH 2 Times Per Day October 19, 2011 1:1 4pm October 19, 2011 1:35pm Sitagliptin (Januvia) 100 mg tablet Discontinued 1 TAB PO O nce Per Day October 19, 2011 1:28pm May 15, 2012 1:41pm Acetaminophen (Tylenol Extra Strength) 500 mg tablet Active 1000 MG PO Q6HRS 120 October 19, 2011 1:30pm Budesonide-Formoterol (Symbicort) 160-4. 5 mcg/actuation HFA aerosol inhaler Discontinued 2 PUFFS IH 2 Times Per Day 1 October 19, 2011 1:35pm May 15, 2012 1:40pm Ramipril Discontinued 1 CAP PO Once Per Day November 11, 2011 8:48am M 2011 9:09am Mycophenolate Mofetil (Cellcept) 500 mg tablet Discontinued 1 TAB PO Three times a day 0 November 26, 2011 8:53am November 26, 2011 8:55am Mycophenolate Mofetil (Cellcept) 500 mg tablet Discontinued 500 MG PO Three times a day 90 November 26, 2011 8:55am April 12, 2012 5:26pm Primidone Discontinued 2 TAB PO At Bedtime 60 November 26, 2011 9:09am April 28, 2012 5:23pm Ropinirole (Requip) 0.5 mg tablet Di scontinued 2 TAB PO A t Bedtime 150 November 26, 2011 9:0 9am June 12, 2012 1:47pm Ramipril Discontinued 1 CAP PO Once Per Day 30 November 26, 2011 9:09am June 12, 2012 1:47pm Nystatin-Triamcinolone Discontinued 1 GM TP 2 Times Per Day 60 December 07, 2011 11:2 6am June 12, 2013 11:21am Ranitidine Hcl (Zantac) 300 mg tablet Discontinued 300 MG PO At Bedtime December 13, 2011 8:31 am February 24, 2012 8:48am Aspirin (Ecotrin) 325 mg tablet,delayed release (DR/EC ) Discontinued 1 TAB PO Once Per Day December 13, 2011 8:31am June 13, 2012 6:29pm Repaglinide (Prandin (Repaglinide)) Discontinued 4 MG PO 2 Times Per Day December 13, 2011 8:32am February 07, 2012 12:46pm Citalopram Discontinued 1 TAB PO Once Per Day December 13, 2011 3:08pm November 24, 2012 10:53am Tramadol (Ultram) 50 mg tablet Discontinue d 1 - 2 TAB PO Three times a day 60 January 18, 2012 1:16pm March 13, 2012 6:33pm Esomeprazole Magnesium (Nexium) 40 mg ca psule,delayed release(DR/EC) Discontinued 1 TAB PO 2 Times Per Day 60 January 18, 2012 1:17pm June 9:32am Metformin (Glucophage Xr) 500 mg tablet extended release 24 hr Discontinued 500 MG PO 2 Times Per Day 120 January 18, 2012 1:17pm June 9:32am Ergocalciferol (Vitamin D2) (Vitamin D2) Discontinued [id number] UNITS PO 3XWEEKLY 14 January 18, 2012 1:17pm February 24, 2012 8:39am Cefuroxime Axetil (Ceftin) 500 mg tablet Discontinued 500 MG PO 2 Times Per Day 20 February 01, 2012 3:44pm February 24, 2012 8:18am Glimepiride (Amaryl) 4 mg tablet Dis continued 1 TAB PO 2 Times Per Day 60 February 07, 2012 12:46pm August 12, 2012 11:30am Ezetimibe (Zetia) 10 mg tablet Discontinue d 1 TAB PO Once Per Day 30 February 07, 2012 12: 46pm April 28, 2012 5:23pm Repaglinide (Prandin (Repaglinide)) Discontinued 4 MG PO 2 Times Per Day 120 February 07, 2012 12:46pm May 15, 2012 1:41pm Prednisone Discontinued 40 MG PO Once Per Day 10 February 08, 2012 3:23pm February 24, 2012 8:18am Albuterol Sulfate (Proair Hfa) 90 mcg/ac tuation HFA aerosol inhaler Discontinued 1 - 2 PUFFS IH Every 4 Hours 0 February 09, 2012 7:11am February 09, 2012 7:13am Albuterol Sulfate (Proair Hfa) 90 mcg/ac tuation HFA aerosol inhaler Discontinued 1 - 2 PUFFS IH Every 4 Hours February 09, 2012 7:13am February 24, 2012 8:46am Fluconazole (Diflucan) 150 mg tablet Discontinued 150 MG PO ONE TIME 1 February 09, 2012 2:2 0pm February 24, 2012 8:18am Hydrocortisone (Hydrocortisone Cream 1%) Discontinued 1 APPLIC TP BID NEEDE 60 February 14, 2012 11:25am February 14, 2012 11:25am Hydrocortisone (Hydrocortisone Cream 1%) Discontinued 1 APPLIC TP BID NEEDE 60 February 14, 2012 11:25am October 30, 2013 2:42pm Fenofibric Acid (Choline) (Trilipix) 135 mg capsule,delayed release(DR/EC) Discontinued 1 TAB PO Once Per Day February 14, 2012 11:26am August 11:30am Simvastatin (Zocor) 20 mg tablet Dis continued 20 MG PO A t Bedtime February 24, 2012 8 :35am September 08, 2012 8:37am Pyridostigmine [place] ([place]) 60 mg tablet Discontinued 1 TAB PO Four Times a Day 0 February 24, 2012 8:44am April 07, 2016 8:31am Epps-3 Fatty Acids-Fish Oil (Fish Oil) 340-1,000 mg c apsule Discontinued 1 CAP PO Once Per Day February 24, 2012 8:44am September 29, 2012 8:21am Albuterol Sulfate (Proair Hfa) 90 mcg/ac tuation HFA aerosol inhaler Discontinued 2 PUFFS IH Q4HRS February 24, 2012 8:46am October 20, 2012 9:33am Ranitidine Hcl (Zantac) 300 mg tablet Discontinued 300 MG PO At Bedtime February 24, 2012 8:48am April 28, 2012 5:49pm Montelukast (Singulair) 10 mg tablet Discontinued 1 TAB PO O nce Per Day March 11, 2012 6:22pm September 08, 2012 8:37am Tramadol (Ultram) 50 mg tablet Discontinue d 1 - 2 TAB PO Three times a day March 13, 2012 6:33pm August 09, 2012 2:08pm Mycophenolate Mofetil (Cellcept) 500 mg tablet Discontinued 2 TAB PO 2 Times Per Day April 12, 2012 10:00am April 07, 2016 8:39am Ranitidine Hcl (Zantac) 300 mg tablet Discontinued 300 MG PO At Bedtime April 28, 2012 5:49pm November 10, 2012 9:27am Ondansetron Hcl (Zofran) 4 mg tablet Discontinued 8 MG PO Th ree times a day April 28, 2012 5:53pm June 07, 2012 1:24pm Budesonide-Formoterol (Symbicort) 160-4. 5 mcg/actuation HFA aerosol inhaler Discontinued 2 PUFFS IH 2 Times Per Day May 15, 2012 1:40pm October 20, 2012 9:33am Sitagliptin (Januvia) 100 mg tablet Discontinued 1 TAB PO O nce Per Day May 15, 2012 1:41pm November 10, 2012 9:27am Repaglinide (Prandin (Repaglinide)) Discontinued 4 MG PO 2 Times Per Day May 15, 2012 1:41pm November 10, 2012 9:27am Cholecalciferol (Vitamin D) Discontinued 1 TAB PO Once Per Day 30 June 07, 2012 1:51pm September 29, 2012 8:33am Flu Vaccine (4 Yr+)(Pf) (Fluvirin (Pf)) 45 mcg (15 mcg x 3)/0.5 mL syringe Discontinued 0.5 MILLILITRE IM ONE TIME 1 June 07, 2012 2:20pm June 07, 2012 2:20pm Ropinirole (Requip) 0.5 mg tablet Di scontinued 2 TAB PO A t Bedtime 150 June 12, 2012 1:47pm November 24, 2012 10:55am Ramipril Discontinued 1 CAP PO Once Per Day June 12, 2012 1:47pm November 24, 2012 10:55am Aspirin (Ecotrin) 325 mg tablet,delayed release (DR/EC ) Discontinued 1 TAB PO Once Per Day June 13, 2012 6:29pm December 11, 2012 12:08pm Esomeprazole Magnesium (Nexium) 40 mg ca psule,delayed release(DR/EC) Discontinued 1 TAB PO 2 Times Per Day 60 July 10, 2012 9:32am December 07, 2012 11:06am Metformin (Glucophage Xr) 500 mg tablet extended release 24 hr Discontinued 500 MG PO 2 Times Per Day July 10, 2012 9:32am January 09, 2013 7:11am Tramadol (Ultram) 50 mg tablet Discontinue d 1 - 2 TAB PO Three times a day August 09, 2012 2:08pm September 29, 2012 8:21am Glimepiride (Amaryl) 4 mg tablet Dis continued 1 TAB PO 2 Times Per Day 60 August 12, 2012 11:30am September 06, 2012 1:29pm Fenofibric Acid (Choline) (Trilipix) 135 mg capsule,delayed release(DR/EC) Discontinued 1 TAB PO Once Per Day 30 August 12, 2012 11:30am January 12:13pm Blood Sugar Diagnostic (Accu-Chek Comfort Curve Test) strip Discontinued 1 EACH MC 2 Times Per Day 100 August 14 2013 12:53pm August 14, 2012 1:45pm Lancets (Onetouch Delica Lancets) 33 gauge misc Discontinued 1 EACH TP Three times a day August 14, 2012 12:53pm August 14, 2012 1:45pm Blood Sugar Diagnostic (Accu-Chek Comfort Curve Test) strip Discontinued 1 EACH MC 2 Times Per Day August 14, 2012 1:45pm March 19, 2013 5:21pm Lancets (Onetouch Delica Lancets) 33 gauge misc Discontinued 1 EACH TP Three times a day August 14, 2012 1:45pm March 19, 2013 5:21pm Nitrofurantoin [place] Discontinued 1 CAP PO BID 0 September 06, 2012 1:29pm September 29, 2012 8:21am Glimepiride (Amaryl) 4 mg tablet Dis continued 0.5 TAB PO 2 Times Per Day 60 September 06, 2012 1:29pm September 07, 2012 10:26am Fluconazole (Diflucan) 150 mg tablet Discontinued 150 MG PO ONE TIME 1 September 06, 2012 1:51pm September 29, 2012 8:21am Glimepiride (Amaryl) 2 mg tablet Dis continued 1 TAB PO 2 Times Per Day 60 September 07, 2012 10:26am September 08, 2012 8:58am Simvastatin (Zocor) 20 mg tablet Dis continued 20 MG PO A t Bedtime 30 September 08, 2012 8:3 7am March 12, 2013 11:03am Montelukast (Singulair) 10 mg tablet Discontinued 1 TAB PO O nce Per Day 30 September 08, 2012 8:37am December 29, 2012 8:28am Glimepiride (Amaryl) 2 mg tablet Dis continued 1 TAB PO 2 Times Per Day 60 September 08, 2012 8:5 8am March 12, 2013 11:03am Topiramate (Topamax) 50 mg tablet Di scontinued 50 MG PO O nce Per Day 0 September 29, 2012 8:1 9am January 29, 2013 9:28am Tramadol (Ultram) 50 mg tablet Discontinue d 1 - 2 TAB PO Three times a day 120 September 29, 2012 8:21am October 18, 2013 3:43pm Cholecalciferol (Vitamin D) Discontinued 2 TAB PO Once Per Day 60 September 29, 2012 8: 33am March 14, 2013 1:57pm Alprazolam (Xanax) 0.25 mg tablet Di scontinued 0.25 MG PO Four Times a Day 60 October 17, 2012 1:50pm June 12, 2013 10:53am Albuterol Sulf (ALBUTEROL 0.083% INH MARCELLO 3ML UNIT DOSE ) Discontinued 1 VIAL IH Four Times a Day 100 October 20, 2012 9:33am February 19, 2014 10:19am Albuterol Sulfate (Proair Hfa) 90 mcg/ac tuation HFA aerosol inhaler Discontinued 2 PUFFS IH Q4HRS 1 October 20, 2012 9:33am June 11:21am Budesonide-Formoterol (Symbicort) 160-4. 5 mcg/actuation HFA aerosol inhaler Discontinued 2 PUFFS IH 2 Times Per Day 1 October 20, 2012 9:33am May 11, 2013 8:43am Fluconazole (Diflucan) 150 mg tablet Discontinued 150 MG PO ONE TIME 1 October 20, 2012 9:3 6am November 03, 2012 3:32pm Prednisone Discontinued 40 MG PO Once Per Day 10 October 20, 2012 9:36am November 03, 2012 3:32pm Azithromycin (Zithromax Tri-[place]) 500 mg tablet Discontinued 500 MG PO Once Per Day 3 October 20, 2012 9:36am November 03, 2012 3:32pm Prednisone Discontinued 30 MG PO Once Per Day 100 November 03, 2012 4:08pm November 24, 2012 10:55am Ranitidine Hcl (Zantac) 300 mg tablet Discontinued 300 MG PO At Bedtime November 10, 2012 9:27a m May 02, 2013 10:23am Sitagliptin (Januvia) 100 mg tablet Discontinued 1 TAB PO O nce Per Day November 10, 2012 9:27a m May 14, 2013 8:44am Repaglinide (Prandin (Repaglinide)) Discontinued 4 MG PO 2 Times Per Day November 10, 2012 9:27am May 15, 2013 8:44am Citalopram Discontinued 1 TAB PO Once Per Day November 24, 2012 10:53am February 02, 2013 8:39am Omeprazole Discontinued 40 MG PO 2 Times Per Day 60 December 07, 2012 11:05am February 21, 2013 5:39pm Esomeprazole Magnesium (Nexium) 40 mg ca psule,delayed release(DR/EC) Discontinued 1 TAB PO 2 Times Per Day December 07, 2012 11:06am December 11 12:08pm Aspirin (Ecotrin) 325 mg tablet,delayed release (DR/EC ) Discontinued 1 TAB PO Once Per Day 30 December 11, 2012 12:08pm June 11, 2013 8:15am Ropinirole (Requip) 0.5 mg tablet Di scontinued 2 TAB PO A t Bedtime 150 December 11, 2012 12: 53pm June 11, 2013 12:13pm Ramipril Discontinued 1 CAP PO Once Per Day December 11, 2012 12:53pm June 11, 2013 8:15am Fluticasone Propionate (Flonase) 50 mcg/ actuation spray,suspension Discontinued 2 SPRAYS NA Once Per Day 1 December 29, 2012 8:38am May 08, 2013 9:40am Loratadine (Claritin) Discontinued 10 MG PO Once Per Day December 29, 2012 8:3 8am June 13, 2013 7:58am Metformin (Glucophage Xr) 500 mg tablet extended release 24 hr Discontinued 500 MG PO 2 Times Per Day 120 January 09, 2013 7:11am February 15 1:53pm Topiramate (Topamax) 50 mg tablet Di scontinued 100 MG PO Once Per Day 60 January 29, 2013 9:2 8am June 12, 2013 10:53am Citalopram Discontinued 1 TAB PO Once Per Day 30 February 02, 2013 8:39am February 05, 2013 11:20am Citalopram Discontinued 1 TAB PO Once Per Day February 05, 2013 11:20am August 10, 2013 9:38am Metformin (Glucophage Xr) 500 mg tablet extended release 24 hr Discontinued 500 MG PO 2 Times Per Day 120 February 15, 2013 1:53pm April 11:58am Esomeprazole Magnesium (Nexium) 40 mg ca psule,delayed release(DR/EC) Discontinued 40 MG PO 2 Times Per Day 60 February 21, 2013 5:38pm February 12:52pm Omeprazole Discontinued 40 MG PO 2 Times Per Day 60 February 21, 2013 5:39pm March 15, 2013 9:00am Esomeprazole Magnesium (Nexium) 40 mg ca psule,delayed release(DR/EC) Discontinued 40 MG PO 2 Times Per Day 60 March 09, 2013 12:52pm August 122013 6:12pm Glimepiride (Amaryl) 2 mg tablet Dis continued 1 TAB PO 2 Times Per Day 60 March 12, 2013 11:03am June 12, 2013 11:18am Simvastatin (Zocor) 20 mg tablet Dis continued 20 MG PO A t Bedtime March 12, 2013 11:03am March 14, 2013 1:59pm Ergocalciferol (Vitamin D2) (Vitamin D2) Discontinued [id number] UNITS PO 1XMONTHLY March 14, 2013 1:57pm August 08, 2013 11:00am Rosuvastatin (Crestor) 10 mg tablet Discontinued 10 MG PO A t Bedtime March 14, 2013 1:59pm March 28, 2013 3:54pm Gabapentin Discontinued 300 MG PO Three times a day March 14, 2013 2:12pm April 14, 2015 8:44am Blood-Glucose Meter (Freestyle System Kit) kit Discontinued 1 KIT MC ONE TIME March 19, 2013 5:19pm March 19, 2013 5:21pm Lancets (Freestyle Lancets) 28 gauge [facility] Discontinued 1 EACH MC Once Per Day March 19, 2013 5:19pm March 19, 2013 5:21pm Blood Sugar Diagnostic (Freestyle Test) strip Discontinued 1 EACH IN Once Per Day 50 March 19, 2013 5:20pm March 19, 2013 5:21pm Blood Sugar Diagnostic (Freestyle Test) strip Discontinued 1 EACH IN Once Per Day 50 March 19, 2013 5:21pm July 17, 2013 8:44am Lancets (Freestyle Lancets) [facility] Discontinued 1 EACH MC Once Per Day March 19, 2013 5:21pm July 17, 2013 8:44am Atorvastatin (Lipitor) 10 mg tablet Discontinued 1 TAB PO O nce Per Day March 23 3 11:52am July 17, 2013 8:44am Montelukast (Singulair) 10 mg tablet Discontinued 10 MG PO O nce Per Day March 28 3 4:08pm August 10, 2013 9:38am Metformin (Glucophage Xr) 500 mg tablet extended release 24 hr Discontinued 500 MG PO 2 Times Per Day April 24, 2013 11:58am September 2:58pm Ranitidine Hcl (Zantac) 300 mg tablet Discontinued 300 MG PO At Bedtime May 02, 2013 10:23am July 23, 2013 9:30am Fluticasone Propionate (Flonase) 50 mcg/ actuation spray,suspension Discontinued 2 SPRAYS NA Once Per Day May 08, 2013 9:40am June 122012 10:53am Budesonide-Formoterol (Symbicort) 160-4. 5 mcg/actuation HFA aerosol inhaler Discontinued 2 PUFFS IH 2 Times Per Day May 11, 2013 8:43am November 13, 2013 9:28pm Sitagliptin (Januvia) 100 mg tablet Discontinued 1 TAB PO O nce Per Day May 14, 2013 8:44am November 13, 2013 9:28pm Aspirin (Ecotrin) 325 mg tablet,delayed release (DR/EC ) Discontinued 1 TAB PO Once Per Day June 11, 2013 8:15am December 05, 2013 11:51am Ramipril Discontinued 1 CAP PO Once Per Day June 11, 2013 8:15am September 03, 2013 5:44pm Ropinirole (Requip) 0.5 mg tablet Di scontinued 2 TAB PO A t Bedtime June 11, 2013 12:13pm September 11, 2013 5:57pm Topiramate (Topamax) 50 mg tablet Di scontinued 1 TAB PO O nce Per Day June 12, 2013 10:53am July 23, 2013 9:30am Nystatin-Triamcinolone Discontinued 1 GM TP 2 Times Per Day June 12, 2013 11:21am October 12, 2013 11:45am Albuterol Sulfate (Proair Hfa) 90 mcg/ac tuation HFA aerosol inhaler Discontinued 2 PUFFS IH Q4HRS June 12, 2013 11:21am November 14, 2013 4:11pm Loratadine (Claritin) Discontinued 10 MG PO Once Per Day June 13, 2013 7:58am December 05, 2013 11:50am Atorvastatin (Lipitor) 10 mg tablet Discontinued 1 TAB PO O nce Per Day July 17, 2013 8:44am August 01, 2013 5:30pm Blood Sugar Diagnostic (Freestyle Test) strip Discontinued 1 EACH IN Once Per Day July 17, 2013 8:44am August 01, 2013 5:30pm Lancets (Freestyle Lancets) 28 gauge misc Discontinued 1 EACH MC Once Per Day July 17, 2013 8:44am August 01, 2013 5:30pm Ranitidine Hcl (Zantac) 300 mg tablet Discontinued 300 MG PO At Bedtime July 23, 2013 9:30am August 20, 2013 10:06am Topiramate (Topamax) 50 mg tablet Di scontinued 1 TAB PO O nce Per Day 60 July 23, 2013 9:30am August 08, 2013 1:24pm Atorvastatin (Lipitor) 10 mg tablet Discontinued 1 TAB PO O nce Per Day 30 August 01, 2013 5:30pm August 08, 2013 10:59am Blood Sugar Diagnostic (Freestyle Test) strip Discontinued 1 EACH IN Once Per Day 50 August 01, 2013 5:30pm February 05, 2014 12:28pm Lancets (Freestyle Lancets) 28 gauge misc Discontinued 1 EACH MC Once Per Day August 01, 2013 5:30pm August 15, 2013 5:36pm Atorvastatin (Lipitor) 20 mg tablet Discontinued 20 MG PO A t Bedtime August 08, 2013 10:59am February 05, 2014 12:28pm Topiramate (Topamax) 50 mg tablet Di scontinued 1 TAB PO O nce Per Day August 08, 2013 1:24pm August 14, 2013 8:58am Citalopram Discontinued 1 TAB PO Once Per Day August 10, 2013 9:38am November 14, 2013 4:10pm Montelukast (Singulair) 10 mg tablet Discontinued 10 MG PO O nce Per Day August 10, 2013 9:38am August 01, 2014 11:30am Topiramate (Topamax) 100 mg tablet D iscontinued 1 TAB PO A t Bedtime August 14, 2013 8:57am August 14, 2013 8:58am Blood Sugar Diagnostic (Onetouch Ultra Test) strip Discontinued 1 EACH TP Once Per Day August 15, 2013 1:55pm August 152013 5:37pm Lancets (Onetouch Delica Lancets) 33 gauge misc Discontinued 1 EACH TP Once Per Day August 15, 2013 1:55pm August 15, 2013 5:36pm Lancets (Onetouch Delica Lancets) 33 gauge misc Discontinued 1 EACH TP Once Per Day 1 August 15, 2013 5:36pm February 05, 2014 12:27pm Blood Sugar Diagnostic (Onetouch Ultra Test) strip Discontinued 1 EACH TP Once Per Day 50 August 15, 2013 5:37pm February 05, 2014 12:27pm Ranitidine Hcl (Acid Control (Ranitidine)) 150 mg tabl et Discontinued 2 TAB PO At Bedtime 60 August 20, 2013 10:05am August 20, 2013 10:06am Ranitidine Hcl (Acid Control (Ranitidine)) 150 mg tabl et Discontinued 2 TAB PO At Bedtime 60 August 20, 2013 10:06am February 082013 10:47am Enalapril Maleate Discontinued 2.5 MG PO Once Per Day 30 September 03, 2013 5:44pm March 12, 2014 4:34pm Nystatin-Triamcinolone Discontinued 15 GM TP September 11, 2013 2:12pm September 11, 2013 2:15pm Fluticasone Propionate (Flonase) 16 GM spray,suspensio n Discontinued 2 SPRAYS EN Once Per Day 16 September 11, 2013 2:12pm September 11 14 2:13pm Nystatin-Triamcinolone Discontinued 1 GM TP 2 Times Per Day September 11, 2013 2:1 5pm October 30, 2013 2:41pm Ropinirole (Requip) 1 MG tablet Disc ontinued 1 TAB PO 2 Times Per Day 75 September 11, 2013 5:5 7pm March 11, 2014 7:21pm AND 0.5 T AB AT 2PM Lansoprazole Discontinued 30 MG PO Once Per Day 30 October 02, 2013 7:24am January 01, 2014 3:30pm Metformin (Glucophage Xr) 500 MG tablet extended release 24 hr Discontinued 2 TAB PO 2 Times Per Day 120 October 03, 2013 2:58pm April 11, 2014 11:27am Azithromycin (Zithromax) 250 MG tablet Discontinued 250 MG PO Once Per Day 6 October 12, 2013 12:00pm October 18, 2013 3:27pm TAKE TWO TABS ON DAY ONE AND 1 TAB DAYS 2 THROUGH 5 Nystatin-Triamcinolone Discontinued 1 GM TP 2 Times Per Day 60 October 12, 2013 12: 02pm October 30, 2013 4:25pm Repaglinide (Prandin) 2 MG tablet Di scontinued 4 MG PO 2 Times Per Day 120 October 18, 2013 3:29pm December 19, 2013 12:07pm Triamcinolone Acetonide Discontinued 1 GM TP 2 Times Per Day 60 October 30, 2013 4: 25pm January 18, 2014 1:52pm Nystatin Discontinued 1 GM TP 2 Times Per Day 60 October 30, 2013 4:25pm January 13, 2014 8:00am Cefuroxime Axetil (Ceftin) 500 MG tablet Discontinued 500 MG PO 2 Times Per Day 20 November 02, 2013 10:54am December 14, 2013 8:58am Sitagliptin (Januvia) 100 MG tablet Discontinued 1 TAB PO O nce Per Day November 13, 2013 9:28p m May 21, 2014 12:14pm Budesonide-Formoterol (Symbicort 160-4.5 Mcg Inhaler) 10.2 GM HFA aerosol inhaler Discontinued 2 PUFFS IH 2 Times Per Day 1 November 13, 2013 9:28pm May 21, 2014 12:14pm Citalopram Discontinued 1 TAB PO Once Per Day November 14, 2013 4:10pm J 2013 7:08pm Albuterol Sulfate (Proair Hfa) 8.5 GM HFA aerosol inha ler Discontinued 2 PUFFS IH Q4HRS November 14, 2013 4:11pm January 27, 2014 7:08pm Loratadine Discontinued 10 MG PO Once Per Day December 05, 2013 11:50am August 14, 2014 5:33pm Aspirin (Ecotrin) 325 MG tablet,delayed release (DR/EC ) Discontinued 1 TAB PO Once Per Day December 05, 2013 11:51am May 8:22pm Alprazolam (Xanax) 0.25 MG tablet Di scontinued 0.25 MG PO Three times a day PRN 90 December 14, 2013 9:24am August 01, 2014 11:17am Repaglinide (Prandin) 2 MG tablet Di scontinued 4 MG PO 2 Times Per Day 120 December 19, 2013 12:07pm June 20, 2014 8:50pm Ergocalciferol (Vitamin D2) (Vitamin D2) 36630 UNIT ca psule Discontinued 2 CAPS PO 2X MONTHLY 2 January 01, 2014 3:28pm February 05 12:28pm Esomeprazole Magnesium (Nexium) 40 MG ca psule,delayed release(DR/EC) Discontinued 40 MG PO Once Per Day January 01, 2014 3:32pm January 01 7:37pm Esomeprazole Magnesium (Nexium) 40 MG ca psule,delayed release(DR/EC) Discontinued 40 MG PO Once Per Day January 01, 2014 7:37pm February 19, 2014 10:47am Nystatin Discontinued 1 GM TP 2 Times Per Day 60 January 13, 2014 8:00am January 13, 2014 8:32am Nystatin Discontinued 1 GM TP 2 Times Per Day 60 January 13, 2014 8:32am March 13, 2014 7:52am Triamcinolone Acetonide Discontinued 1 GM TP 2 Times Per Day 60 January 18, 2014 1:5 2pm January 22, 2014 8:18am Triamcinolone Acetonide Discontinued 1 GM TP 2 Times Per Day 60 January 22, 2014 8:1 8am March 26, 2014 2:26pm 0.1% Citalopram Discontinued 1 TAB PO Once Per Day January 27, 2014 7:08pm April 02, 2014 8:25am Albuterol Sulfate (Proair Hfa) 8.5 GM HFA aerosol inha ler Discontinued 2 PUFFS IH Q4HRS 1 January 27, 2014 7:08pm April 05, 2014 8:40am Topiramate (Topamax) 50 MG tablet Di scontinued 50 MG PO E very Morning February 05, 2014 12: 12pm February 05, 2014 12:26pm Topiramate (Topamax) 50 MG tablet Di scontinued 50 MG PO E very Morning February 05, 2014 12: 26pm August 01, 2014 11:30am and 100mg HS Blood Sugar Diagnostic (One Touch Ultra Test Strips) 1 EACH strip Discontinued 1 EACH TP Once Per Day February 05, 2014 12:27pm June 3:14pm Lancets (One Touch Delica) 1 EACH misc Discontinued 1 EACH TP Once Per Day February 05, 2014 12:27pm August 15, 2014 6:28am Atorvastatin (Lipitor) 20 MG tablet Discontinued 20 MG PO A t Bedtime February 05, 2014 12: 28pm August 01, 2014 11:30am Blood Sugar Diagnostic (Freestyle Test Strips) 1 EACH strip Discontinued 1 EACH IN Once Per Day 50 February 05, 2014 12:28pm February 19, 2014 10:14am Ergocalciferol (Vitamin D2) (Vitamin D2) 62226 UNIT ca psule Discontinued 2 CAPS PO 2X MONTHLY 2 February 05, 2014 12:28pm February 05, 2 014 4:52pm Ergocalciferol (Vitamin D2) (Vitamin D2) 63716 UNIT ca psule Discontinued 1 CAPS PO 2X MONTHLY 2 February 05, 2014 4:52pm August 01, 2014 11:30am Ferrous Sulfate (Iron) 325 MG capsule, extended releas e Discontinued 325 MG PO 2 Times Per Day 100 February 19, 2014 10:19am December 01, 2018 3:10pm Esomeprazole Magnesium (Nexium) 40 MG ca psule,delayed release(DR/EC) Discontinued 40 MG PO 2 Times Per Day 60 February 19, 2014 10:47am June 112013 9:21pm Ranitidine Hcl (Acid Control) 150 MG tablet Discontinued 2 TAB PO A t Bedtime 60 February 19, 2014 10:47am March 15, 2014 3:34pm Ropinirole (Requip) 1 MG tablet Disc ontinued 1 TAB PO 2 Times Per Day 75 March 11, 2014 7:21pm September 06, 2014 1:29pm AND 0.5 TAB AT 2PM Topiramate (Topamax) 100 MG tablet D iscontinued 100 MG PO At Bedtime March 12, 2014 4:25pm September 06, 2014 1:29pm Enalapril Maleate Discontinued 2.5 MG PO Once Per Day March 12, 2014 4:34pm September 06, 2014 1:30pm Nystatin Discontinued 1 GM TP 2 Times Per Day 60 March 13, 2014 7:52am May 13, 2014 6:39pm Ranitidine Hcl (Acid Control (Ranitidine)) 150 MG tabl et Discontinued 2 TAB PO At Bedtime 60 March 15, 2014 3:34pm September 11:11am Triamcinolone Acetonide Discontinued 1 GM TP 2 Times Per Day 60 March 26 4 2:26pm June 04, 2014 8:22pm 0.1% Citalopram Discontinued 1 TAB PO Once Per Day 30 April 02, 2014 8:25am October 14, 2014 8:37pm Albuterol Sulfate (Proair Hfa) 8.5 GM HFA aerosol inha ler Discontinued 2 PUFFS IH Q4HRS 1 April 05, 2014 8:40am 2014 8:50am Metformin (Glucophage Xr) 500 MG tablet extended release 24 hr Discontinued 2 TAB PO 2 Times Per Day April 11, 2014 11:27am April 9:40am Metformin (Glucophage Xr) 500 MG tablet extended release 24 hr Discontinued 2 TAB PO 2 Times Per Day April 12, 2014 9:40am October 15, 2014 7:41am Nystatin Discontinued 1 GM TP 2 Times Per Day 60 May 13, 2014 6:39pm July 08, 2014 9:19pm Sitagliptin (Januvia) 100 MG tablet Discontinued 1 TAB PO O nce Per Day May 21, 2014 12:14pm February 07, 2015 5:05pm Budesonide-Formoterol (Symbicort) 10.2 GM HFA aerosol inhaler Discontinued 2 PUFFS IH 2 Times Per Day May 21, 2014 12:14pm December 8:05am Flu Vacc [id number](4yr,Up)(Pf) (Fluvirin [id number] Syringe) 45 MCG/0.5 ML syringe Discontinued 0.5 ML IM ONE TIME May 28, 2014 2:07pm May 28, 2014 2:10pm Triamcinolone Acetonide Discontinued 1 GM TP 2 Times Per Day 60 June 04, 2014 8:22pm August 09, 2014 6:31pm 0.1% Aspirin (Ecotrin) 325 MG tablet,delayed release (DR/EC ) Discontinued 1 TAB PO Once Per Day June 04, 2014 8:22pm December 09, 2014 7:58am Albuterol Sulfate (Proair Hfa) 8.5 GM HFA aerosol inha ler Discontinued 2 PUFFS IH Q4HRS 2014 8:50am August 15, 2014 12:20pm Repaglinide (Prandin) 2 MG tablet Di scontinued 4 MG PO 2 Times Per Day June 20 4 8:50pm January 03, 2015 7:42am Nystatin Discontinued 1 GM TP 2 Times Per Day 60 July 08, 2014 9:19pm September 03, 2014 3:39pm Esomeprazole Magnesium (Nexium) 40 MG ca psule,delayed release(DR/EC) Discontinued 40 MG PO 2 Times Per Day 60 July 08, 2014 9:21pm October 3:30pm Blood Sugar Diagnostic (One Touch Ultra Test Strips) 1 EACH strip Discontinued 1 - 2 EACH TP Once Per Day 50 July 10, 2014 3:14pm August 15, 2014 6:30am Cholecalciferol (Vitamin D3) Discontinued 1000 UNIT PO Once Per Day August 01, 2014 10:58am February 04, 2015 5:38pm Alprazolam (Xanax) 0.25 MG tablet Di scontinued 0.25 MG PO Three times a day PRN August 01, 2014 11:17am December 27, 2014 11:10am Atorvastatin (Lipitor) 20 MG tablet Discontinued 20 MG PO A t Bedtime August 01, 2014 11:30am February 04, 2015 5:37pm Montelukast (Singulair) 10 MG tablet Discontinued 10 MG PO O nce Per Day August 01, 2014 11:30am September 06, 2014 1:29pm Ergocalciferol (Vitamin D2) (Vitamin D2) 77531 UNIT ca psule Discontinued 1 CAPS PO 2X MONTHLY August 01, 2014 11:30am August 16, 2014 12:17pm Topiramate (Topamax) 50 MG tablet Di scontinued 50 MG PO E very Morning August 01, 2014 11:30am August 05, 2014 10:26am and 100mg HS Topiramate (Topamax) 50 MG tablet Di scontinued 50 MG PO E very Morning August 05, 2014 10:26am February 07, 2015 5:05pm Triamcinolone Acetonide Discontinued 1 GM TP 2 Times Per Day 60 August 09, 2014 6:31pm October 14, 2014 8:37pm 0.1% Albuterol Sulfate Discontinued 2.5 MG NEB q4hrs prn 100 August 12, 2014 12:08pm December 05, 2014 9:05am Loratadine Discontinued 10 MG PO Once Per Day August 14, 2014 5:33pm April 14, 2015 8:43am Albuterol Sulfate (Proair Hfa) 8.5 GM HFA aerosol inha ler Discontinued 2 PUFFS IH Q4HRS August 15, 2014 12:20pm September 17, 2015 9:06am Nystatin Discontinued 1 GM TP 2 Times Per Day 60 September 03, 2014 3:39pm November 06, 2014 7:08am Ropinirole (Requip) 1 MG tablet Disc ontinued 1 TAB PO 2 Times Per Day 75 September 06, 2014 1:29pm April 14, 2015 8:43am AND 0.5 TAB AT 2PM Montelukast (Singulair) 10 MG tablet Discontinued 10 MG PO O nce Per Day 90 September 06, 2014 1:29pm July 23, 2015 10:10am Topiramate (Topamax) 100 MG tablet D iscontinued 100 MG PO At Bedtime 30 September 06, 2014 1:29pm March 21, 2015 1:16pm Enalapril Maleate Discontinued 2.5 MG PO Once Per Day 30 September 06, 2014 1:30pm March 13, 2015 1:25pm Ranitidine Hcl (Acid Control) 150 MG tablet Discontinued 2 TAB PO A t Bedtime 60 October 01, 2014 11:11am April 09, 2015 8:00am Triamcinolone Acetonide Discontinued 1 GM TP 2 Times Per Day 60 October 14, 2014 8:3 7pm December 09, 2014 7:58am 0.1% Citalopram Discontinued 1 TAB PO Once Per Day 30 October 14, 2014 8:37pm April 14, 2015 8:43am Metformin (Glucophage Xr) 500 MG tablet extended release 24 hr Discontinued 2 TAB PO 2 Times Per Day 120 October 15, 2014 7:41am April 16, 2015 9:33am Dexlansoprazole (Dexilant) 60 MG capsule ,biphase delayed releas Discontinued 60 MG PO Once Per Day 30 October 30, 2014 3:30pm November 13, 5 2:08pm Nystatin Discontinued 1 GM TP 2 Times Per Day 60 November 06, 2014 7:08am January 08, 2015 10:52am Esomeprazole Magnesium (Nexium) 20 MG ca psule,delayed release(DR/EC) Discontinued 2 TABS PO Once Per Day 60 November 13, 2014 3:54pm April 30, 015 1:18pm OTC Albuterol Sulfate Discontinued 2.5 MG NEB q4hrs prn 100 December 05, 2014 9:05am October 07, 2015 4:47pm Triamcinolone Acetonide Discontinued 1 GM TP 2 Times Per Day 60 December 09, 2014 7:58 am February 04, 2015 5:36pm 0.1% Aspirin (Ecotrin) 325 MG tablet,delayed release (DR/EC ) Discontinued 1 TAB PO Once Per Day 30 December 09, 2014 7:58am June 09, 2015 8:27am Budesonide-Formoterol (Symbicort 160-4.5 Mcg Inhaler) 10.2 GM HFA aerosol inhaler Discontinued 2 PUFFS IH 2 Times Per Day 1 December 09, 2014 8:05am June 09, 2015 8:26am Alprazolam (Xanax) 0.25 MG tablet Di scontinued 0.25 MG PO Three times a day PRN 90 December 27, 2014 11:10am April 07, 2016 8:46am Repaglinide (Prandin) 2 MG tablet Di scontinued 4 MG PO 2 Times Per Day 120 January 03, 2015 7:42am July 08, 2015 3:02pm Nystatin Discontinued 1 GM TP 2 Times Per Day 60 January 08, 2015 10:52am March 18, 2015 5:06pm Ipratropium-Albuterol Discontinued 3 ML NEB Four Times a Day January 30, 2015 8:4 1am February 06, 2015 8:27am Ergocalciferol (Vitamin D2) (Vitamin D2) 72105 UNIT ca psule Discontinued 1 CAP PO 2 Times Per Week 8 February 04, 2015 4:56pm February 04 15 5:36pm Triamcinolone Acetonide Discontinued 1 GM TP 2 Times Per Day 60 February 04, 2015 5:3 6pm May 28, 2015 12:44pm 0.1% Ergocalciferol (Vitamin D2) (Vitamin D2) 96338 UNIT ca psule Discontinued 1 CAP PO 2 Times Per Week 8 February 04, 2015 5:36pm July 23, 2015 10:10am Atorvastatin (Lipitor) 20 MG tablet Discontinued 20 MG PO A t Bedtime February 04, 2015 5:3 7pm July 23, 2015 10:10am Lancets (Onetouch Delica Lancets) 1 EACH misc Discontinued 1 EACH MC Once Per Day February 05, 2015 7:55am February 16, 2016 12:49pm DX:250.00 Ipratropium-Albuterol Discontinued 3 ML NEB Four Times a Day February 06, 2015 8:2 7am October 03, 2015 9:48am Topiramate (Topamax) 50 MG tablet Di scontinued 50 MG PO E very Morning February 07, 2015 5:0 5pm July 23, 2015 10:10am Sitagliptin (Januvia) 100 MG tablet Discontinued 1 TAB PO O nce Per Day February 07, 2015 5:0 5pm July 23, 2015 10:10am Blood Sugar Diagnostic (Glucose Test Strip) 1 EACH str ip Discontinued 1 EACH MC Once Per Day February 10, 2015 9:58am February 10, 2015 10:02am ONE TOUCH ULTRA DX: 250.00 Blood Sugar Diagnostic (Glucose Test Strip) 1 EACH str ip Discontinued 1 EACH MC Once Per Day February 10, 2015 10:02am August 7:05pm ONE TOUCH ULTRA DX: 250.00 Enalapril Maleate Discontinued 2.5 MG PO Once Per Day March 13, 2015 1:25pm March 19, 2015 1:35pm Nystatin Discontinued 1 GM TP 2 Times Per Day March 18, 2015 5:06pm May 28, 2015 12:43pm Enalapril Maleate Discontinued 2.5 MG PO Once Per Day March 19, 2015 1:35pm July 23, 2015 10:10am Topiramate (Topamax) 100 MG tablet D iscontinued 100 MG PO At Bedtime March 21 5 1:16pm July 23, 2015 10:10am Ranitidine Hcl (Acid Control) 150 MG tablet Discontinued 2 TAB PO A t Bedtime April 09, 2015 8:00am July 23, 2015 10:10am Ropinirole (Requip*) 1 MG tablet Dis continued 1 TAB PO 2 Times Per Day April 14, 2015 8:43am April 16, 2015 9:33am AND 0.5 TAB AT 2PM Citalopram Discontinued 1 TAB PO Once Per Day April 14, 2015 8:43am April 16, 2015 9:33am Loratadine Discontinued 10 MG PO Once Per Day April 14, 2015 8:43am October 28, 2015 11:41am Gabapentin Discontinued 300 MG PO Three times a day April 14, 2015 8:44am October 28, 2015 12:04pm Ropinirole (Requip) 1 MG tablet Disc ontinued 1 TAB PO 2 Times Per Day 75 April 16, 2015 9:33am October 17, 2015 9:00am AND 0.5 TAB A T 2PM Citalopram Discontinued 1 TAB PO Once Per Day 30 April 16, 2015 9:33am July 23, 2015 10:05am Metformin (Glucophage Xr) 500 MG tablet extended release 24 hr Discontinued 2 TAB PO 2 Times Per Day 120 April 16, 2015 9:33am May 232014 12:01pm AFLURIA SYRINGE Discontinued 0.5 ML IM .ONCE 1 April 30, 2015 8 :37am April 30, 2015 8:38am Esomeprazole Magnesium (Nexium) 20 MG ca psule,delayed release(DR/EC) Discontinued 2 TABS PO Once Per Day 60 April 30, 2015 1:18pm October 1:08pm Metformin (Glucophage Xr) 500 MG tablet extended release 24 hr Discontinued 2 TAB PO 2 Times Per Day May 23, 2015 12:01pm June 27, 2015 9:57am Nystatin Discontinued 1 GM TP 2 Times Per Day 60 May 28, 2015 12:43pm October 28, 2015 12:04pm Triamcinolone Acetonide Discontinued 1 GM TP 2 Times Per Day 60 May 28, 2015 12:44pm October 28, 2015 12:04pm 0.1% Aspirin (Ecotrin) 325 MG tablet,delayed release (DR/EC ) Discontinued 1 TAB PO Once Per Day 30 June 09, 2015 8:27am October 12:04pm Fluticasone Furoate-Vilanterol (Breo Ell ipta 100-25 Mcg Inh) 1 EACH blister with device Discontinued 1 EACH IH Once Per Day June 09, 2015 10:58am September 17, 2015 9:07am Metformin (Glucophage Xr) 500 MG tablet extended release 24 hr Discontinued 2 TAB PO 2 Times Per Day June 27, 2015 9:57am October 12:04pm Repaglinide (Prandin) 2 MG tablet Di scontinued 4 MG PO 2 Times Per Day July 08, 5 3:02pm October 28, 2015 12:04pm Citalopram Discontinued 2 TAB PO Once Per Day 60 July 23, 2015 10:05am October 17, 2015 9:00am Atorvastatin (Lipitor) 20 MG tablet Discontinued 20 MG PO A t Bedtime July 23, 2015 10:10am December 24, 2015 8:38am Enalapril Maleate Discontinued 2.5 MG PO Once Per Day July 23, 2015 10:10am December 24, 2015 8:38am Ranitidine Hcl (Acid Control (Ranitidine)) 150 MG tabl et Discontinued 2 TAB PO At Bedtime July 23, 2015 10:10am December 8:38am Montelukast (Singulair) 10 MG tablet Discontinued 10 MG PO O nce Per Day July 23, 2015 10:10am September 10, 2015 6:04pm Ergocalciferol (Vitamin D2) (Vitamin D2) 54694 UNIT ca psule Discontinued 1 CAP PO 2 Times Per Week July 23, 2015 10:10am December 8:39am Topiramate (Topamax) 100 MG tablet D iscontinued 100 MG PO At Bedtime July 23, 2015 10:10am December 24, 2015 8:38am Topiramate (Topamax) 50 MG tablet Di scontinued 50 MG PO E very Morning July 23, 2015 10:10am August 19, 2015 7:05pm Sitagliptin (Januvia) 100 MG tablet Discontinued 1 TAB PO O nce Per Day July 23, 2015 10:10am August 19, 2015 7:06pm Fluconazole (Diflucan) 150 MG tablet Discontinued 150 MG PO 1 Time/Once July 30, 2015 4:57pm August 04, 2015 10:25am Doxycycline Monohydrate Discontinued 100 MG PO Every 12 Hours August 12, 2015 1 1:06am August 12, 2015 11:56am Cephalexin (Keflex) 500 MG capsule D iscontinued 500 MG PO Every 12 Hours August 12, 2015 11:06am August 12, 2015 11:56am Blood Sugar Diagnostic (Blood Glucose Test) 1 EACH str ip Discontinued 1 EACH MC Once Per Day August 19, 2015 7:05pm December 24, 2015 8:37am ONE TOUCH ULTRA DX: 250.00 Topiramate (Topamax) 50 MG tablet Di scontinued 50 MG PO E very Morning August 19, 2015 7:05pm December 24, 2015 8:38am Sitagliptin (Januvia) 100 MG tablet Discontinued 1 TAB PO O nce Per Day August 19, 2015 7:06pm December 24, 2015 8:38am Pneumococcal 23-Falguni Ps Vaccine (Pneumova x 23 (25 Mcg/0.5 Ml)*) 25 MCG/0.5 ML solution Discontinued 25 MCG IJ ONE TIME 1 September 02, 2015 9:37am September 02, 2015 9:39am Montelukast (Singulair) 10 MG tablet Discontinued 10 MG PO O nce Per Day 90 September 10, 2015 6:04pm April 07, 2016 9:28am Albuterol Sulfate (Proair Hfa) 8.5 GM HFA aerosol inha ler Discontinued 2 PUFFS IH Q4HRS September 17, 2015 9:06am November 17, 2015 7:55am Amoxicillin-Pot Clavulanate (Augmentin 8 75-125 Tablet) 1 EACH tablet Discontinued 875 MG PO Every 12 Hours September 17, 2015 9:08am September 27, 016 8:46am Prednisone Discontinued 20 MG PO Once Per Day September 22, 2015 8:01am September 28, 2015 8:46am DIRECTED Ipratropium-Albuterol Discontinued 3 ML NEB Four Times a Day October 03, 2015 9:4 8am October 07, 2015 4:46pm 1 BOX Ipratropium-Albuterol Discontinued 3 ML NEB Four Times a Day 1 October 07, 2015 4:4 6pm January 15, 2016 3:11pm 1 BOX Albuterol Sulfate Discontinued 2.5 MG NEB q4hrs prn 100 October 07, 2015 4:47pm January 21, 2016 2:21pm Nitrofurantoin Monohyd/M-Cryst (Macrobid 100 Mg Capsule) 100 MG capsule Discontinued 100 MG PO Every 12 Hours 14 October 15, 2015 8:47am October 16 7:41am Ropinirole (Requip*) 1 MG tablet Dis continued 1 TAB PO 2 Times Per Day 75 October 17, 2015 9:0 0am April 06, 2016 11:31am AND 0.5 TAB AT 2PM Citalopram Discontinued 2 TAB PO Once Per Day 60 October 17, 2015 9:00am October 21, 2015 4:31pm Esomeprazole Magnesium (Nexium) 20 MG ca psule,delayed release(DR/EC) Discontinued 2 TABS PO Once Per Day 60 October 21, 2015 1:08pm April 062015 11:31am Citalopram (Celexa) 40 MG tablet Dis continued 40 MG PO O nce Per Day 30 October 21, 2015 4: 31pm April 09, 2016 8:30am Loratadine Discontinued 10 MG PO Once Per Day October 28, 2015 11:41am February 29, 2016 1:31pm Repaglinide (Prandin) 2 MG tablet Di scontinued 4 MG PO 2 Times Per Day 120 October 28, 2015 12:04pm April 07, 2016 9:26am Triamcinolone Acetonide Discontinued 1 GM TP 2 Times Per Day 60 October 28, 2015 12 :04pm May 17, 2016 5:51pm 0.1% Aspirin (Ecotrin) 325 MG tablet,delayed release (DR/EC ) Discontinued 1 TAB PO Once Per Day 30 October 28, 2015 12:04pm December 14, 2 016 6:42pm Nystatin Discontinued 1 GM TP 2 Times Per Day 60 October 28, 2015 12:04pm December 24, 2015 8:36am Gabapentin Discontinued 300 MG PO Three times a day 90 October 28, 2015 12:04pm November 18, 2016 10:18am Metformin (Glucophage Xr) 500 MG tablet extended release 24 hr Discontinued 2 TAB PO 2 Times Per Day 120 October 28, 2015 12:04pm December 14, 2 016 6:42pm Albuterol Sulfate (Proair Hfa) 8.5 GM HFA aerosol inha ler Discontinued 2 PUFFS IH Q4HRS November 17, 2015 7:55am January 27, 2016 11:23am Aspirin (Ecotrin) 325 MG tablet,delayed release (DR/EC ) Discontinued 1 TAB PO Once Per Day 30 December 15, 2015 6:42pm March 8:42am Metformin (Glucophage Xr) 500 MG tablet extended release 24 hr Discontinued 2 TAB PO 2 Times Per Day 120 December 15, 2015 6:42pm March 8:40am Nystatin Discontinued 1 GM TP 2 Times Per Day 60 December 24, 2015 8:36am April 07, 2016 8:57am Blood Sugar Diagnostic (Blood Glucose Test) 1 EACH str ip Discontinued 1 EACH MC Once Per Day 50 December 24, 2015 8:37am August 11, 2016 8:55am ONE TOUCH ULTRA DX: 250.00 Atorvastatin (Lipitor) 20 MG tablet Discontinued 20 MG PO A t Bedtime 30 December 24, 2015 8:3 8am August 04, 2016 8:52am Enalapril Maleate Discontinued 2.5 MG PO Once Per Day December 24, 2015 8:3 8am August 04, 2016 8:51am Ranitidine Hcl (Acid Control) 150 MG tablet Discontinued 2 TAB PO A t Bedtime 60 December 24, 2015 8:38am April 07, 2016 8:30am Topiramate (Topamax) 100 MG tablet D iscontinued 100 MG PO At Bedtime December 24, 2015 8:3 8am April 07, 2016 3:50am Topiramate (Topamax) 50 MG tablet Di scontinued 50 MG PO E very Morning December 24, 2015 8:3 8am April 07, 2016 3:50am Sitagliptin (Januvia) 100 MG tablet Discontinued 1 TAB PO O nce Per Day December 24, 2015 8:3 8am February 12, 2016 6:55pm Ergocalciferol (Vitamin D2) (Vitamin D2) 80161 UNIT ca psule Discontinued 1 CAP PO 1 Time Per Week December 24, 2015 8:39am February 11, 016 6:55pm Fluticasone Furoate-Vilanterol (Breo Ell ipta) 1 EACH blister with device Discontinued 1 PUFFS IH Once Per Day December 24, 2015 8:49am May 9:32am start once daily for peak flow below 250 and or any cough at all Doxycycline Hyclate Discontinued 100 MG PO 2 Times Per Day January 02, 2016 10: 39am January 02, 2016 11:37am Ipratropium-Albuterol Discontinued 3 ML NEB Four Times a Day January 15, 2016 3:11p m April 07, 2016 8:46am 1 BOX Albuterol Sulfate Discontinued 2.5 MG NEB q4hrs prn 100 January 21, 2016 2:21pm April 07, 2016 8:46am Albuterol Sulfate (Proair Hfa) 8.5 GM HFA aerosol inha ler Discontinued 2 PUFFS IH Q4HRS January 27, 2016 11:23am March 30, 2016 5:39pm Ergocalciferol (Vitamin D2) (Vitamin D2) 83113 UNIT ca psule Discontinued 1 CAP PO 1 Time Per Week February 12, 2016 6:55pm April 072015 8:23am Sitagliptin (Januvia) 100 MG tablet Discontinued 1 TAB PO O nce Per Day February 12, 2016 6:55pm April 07, 2016 8:25am Lancets (Onetouch Delica Lancets) 1 EACH misc Discontinued 1 EACH MC Once Per Day February 16, 2016 12:49pm January 17, 2017 2:58pm DX:250.00 Loratadine Discontinued 10 MG PO Once Per Day February 29, 2016 1:31pm February 23, 2017 4:26pm Azithromycin Discontinued 250 MG PO As Directed (Daily ) March 29, 2016 10:20am April 07, 2016 3:49am TAKE 2 T ABS STAT AND THEN ONE DAILY Prednisone Discontinued 40 MG PO Once Per Day 40 March 29, 2016 10:21am April 07, 2016 3:50am x5days Albuterol Sulfate (Proair Hfa) 8.5 GM HFA aerosol inha ler Discontinued 2 PUFFS IH Q4HRS 1 March 30, 2016 5:39pm April 07, 2016 9:00am Ropinirole (Requip*) 1 MG tablet Dis continued 1 TAB PO 2 Times Per Day 75 April 06 6 11:31am April 07, 2016 8:27am AND 0.5 TAB AT 2PM Esomeprazole Magnesium (Nexium) 20 MG ca psule,delayed release(DR/EC) Discontinued 2 TABS PO Once Per Day 60 April 06, 2016 11:31am Sept2015 8:54am Citalopram (Celexa) 40 MG tablet Dis continued 40 MG PO O nce Per Day April 09 6 8:30am October 04, 2016 6:46am Esomeprazole Magnesium (Nexium) 22.3 mg capsule,delayed release(DR/EC) Discontinued 22.3 MG PO 2 Times Per Day 60 April 09, 2016 2:20pm October 192016 8:16am Ranitidine Hcl Discontinued 300 MG PO At Bedtime 60 April 09, 2016 2:21pm August 04, 2016 8:51am Sucralfate (Carafate) 1 GM tablet Di scontinued 1 G PO Fou r Times a Day April 09 16 2:53pm August 04, 2016 8:51am Ergocalciferol (Vitamin D2) (Vitamin D2) 50,000 UNITS capsule Discontinued 99456 UNITS PO 1 Time Per Week 4 April 14, 2016 8:59am October 04, 2016 6:46am Triamcinolone Acetonide Discontinued 1 APPLIC TP 2 Times Per Da y 80 May 18, 2016 1:01pm November 08, 2016 2:34pm APPLY UNDER [facility] Fluticasone Furoate-Vilanterol (Breo Ell ipta 100-25 Mcg Inh) 1 EACH blister with device Discontinued 1 PUFFS IH Once Per Day 1 May 27, 2016 9:32am September 20, 2016 10:10am start once daily for peak flow below 250 and or any cough at all Albuterol Sulfate (Ventolin Hfa) 200 PUF FS/18 GM HFA aerosol inhaler Discontinued 2 PUFFS INH Every 4 hours June 07, 2016 3:12pm June 08, 2016 7:59am Albuterol Sulfate (Ventolin Hfa) 200 PUF FS/18 GM HFA aerosol inhaler Discontinued 2 PUFFS INH Every 4 hours June 08, 2016 7:59am September 06, 2016 12:30pm Metformin Discontinued 1 000 MG PO 2 Times Per Day WI TH Meals 120 June 08, 6 7:09pm December 01, 2016 8:19am Aspirin Discontinued 325 MG PO Once Per Day 30 June 08, 2016 7:10pm December 01, 2016 8:19am Repaglinide Discontinued 4 MG PO BID@1200,1800 60 June 13, 2016 8:29pm October 19, 2016 8:51am HIZENIRA Discontinued 60 ML SQ WKLY July 06, 2016 1:17pm December 17, 2016 2:35pm Azithromycin Discontinued 250 MG PO As Directed (Daily ) July 19, 2016 8: 08pm July 22, 2016 11:21am TAKE 2 TA BS STAT AND THEN ONE DAILY Prednisone Discontinued 40 MG PO Once Per Day July 19, 2016 8:09pm July 22, 2016 11:21am DIRECTED Prednisone Discontinued 30 MG PO 2 Times Per Day 40 July 22, 2016 11:21am July 27, 2016 2:49pm then DI RECTED Azithromycin Discontinued 250 MG PO As Directed (Daily ) July 22, 2016 1 1:21am July 28, 2016 1:28pm TAKE 2 TAB S STAT AND THEN ONE DAILY Ipratropium-Albuterol Discontinued 3 MLS IH Four Times a Day 120 July 22, 2016 1:03pm November 23, 2016 9:01am VIA NEBULIZER Albuterol Sulfate Discontinued 2.5 MG NEB Every 4 hours 3 July 22, 2016 2 :39pm November 08, 2018 5:33am Albuterol Sulfate Discontinued 2.5 MG NEB Every 4 hours 3 July 22, 2016 2 :39pm November 08, 2018 10:45pm Prednisone Discontinued 50 MG PO Once Per Day July 27, 2016 2:49pm August 02, 2016 1:21pm x4 d then DIRECTED Sucralfate (Carafate) 1 GM tablet Di scontinued 1 G PO Fou r Times a Day August 04, 2016 8:51am December 01, 2016 8:19am Enalapril Maleate Discontinued 2.5 MG PO Once Per Day August 04, 2016 8:51am February 04, 2017 6:12pm Ranitidine Hcl Discontinued 300 MG PO At Bedtime August 04, 2016 8:51am February 04, 2017 6:12pm Atorvastatin (Lipitor) 20 MG tablet Discontinued 20 MG PO A t Bedtime August 04, 2016 8:52am February 04, 2017 6:12pm Blood Sugar Diagnostic (Blood Glucose Test) 1 EACH str ip Discontinued 1 EACH MC Once Per Day August 11, 2016 8:55am January 17, 2017 2:57pm ONE TOUCH ULTRA DX: 250.00 Cyclobenzaprine Discontinued 5 MG PO Three times a day August 20, 2016 11:20am March 25, 2017 12:52am Albuterol Sulfate (Ventolin Hfa) 200 PUF FS/18 GM HFA aerosol inhaler Discontinued 2 PUFFS INH Every 4 hours September 06, 2016 12:30pm November 8:35am Sitagliptin (Januvia) 100 MG tablet Discontinued 100 MG PO Once Per Day September 13, 2016 9:15am March 07, 2017 2:23pm Cefadroxil Discontinued 1 CAP PO 2 Times Per Day September 15, 2016 1:57pm September 24, 2016 6:38am Prednisone Discontinued 40 MG PO Once Per Day September 15, 2016 1:58pm September 24, 2016 7:51am DIRECTED BREO ELLIPTA 100-25 MCG INH Discontinued 1 EACH IH Once Per Day September 20, 2016 10: 10am September 20, 2016 4:11pm Fluticasone Furoate-Vilanterol (Breo Ell ipta) 1 EACH blister with device Discontinued 2 PUFFS INH Once Per Day September 27, 2016 12:36pm February 10:58am Citalopram (Celexa) 40 MG tablet Dis continued 40 MG PO O nce Per Day October 04, 2016 6: 46am January 28, 2017 3:08pm Ergocalciferol (Vitamin D2) (Vitamin D2) 50,000 UNITS capsule Discontinued [id number] UNITS PO 1 Time Per Week October 04, 2016 6:46am March 1:23pm Ropinirole Discontinued 1 MG PO 2 Times Per Day 75 October 04, 2016 5:55pm October 12, 2016 4:41pm AND 0.5 TAB AT 2PM. Montelukast Discontinued 10 MG PO At Bedtime October 05, 2016 3:26pm April 01, 2017 11:08am Ropinirole Discontinued 1 MG PO 2 Times Per Day 75 October 12, 2016 4:41pm October 19, 2016 8:51am AND 0.5 TAB AT 2PM. Esomeprazole Magnesium (Nexium) 22.3 mg capsule,delayed release(DR/EC) Discontinued 22.3 MG PO 2 Times Per Day 60 October 19, 2016 8:16am January 18, 017 8:11am Repaglinide Discontinued 4 MG PO BID@1200,1800 60 October 19, 2016 8:51am January 18, 2017 6:30pm Ropinirole Discontinued 1 MG PO 2 Times Per Day 75 October 19, 2016 8:51am May 01, 2017 5:58pm AND 0.5 TAB AT 2PM. Triamcinolone Acetonide Discontinued 1 APPLIC TP 2 Times Per Da y 80 November 08, 2016 2:34p m May 15, 2017 10:33pm APPLY UND ER B[facility] Topiramate Discontinued 100 MG PO At Bedtime November 09, 2016 10:58am March 03, 2017 12:47pm Topiramate (Topamax) 50 MG tablet Di scontinued 50 MG PO O nce Per Day November 09, 2016 10:58 am March 03, 2017 12:47pm Gabapentin Discontinued 300 MG PO Three times a day November 18, 2016 10:18am June 06, 2017 12:42pm Prednisone Discontinued 20 MG PO Once Per Day November 19, 2016 5:20pm December 01, 2016 8:31am DIRECTED Ipratropium-Albuterol Discontinued 3 MLS IH Four Times a Day November 23, 2016 9:0 1am April 05, 2017 5:44pm VIA ANTHONY PAREDES Sucralfate (Carafate) 1 GM tablet Di scontinued 1 G PO Fou r Times a Day December 01, 2016 8:1 9am April 01, 2017 11:08am Aspirin Discontinued 325 MG PO Once Per Day December 01, 2016 8:19am May 26, 2017 8:51am Metformin Discontinued 1 000 MG PO 2 Times Per Day WI TH Meals December 01, 2016 8:1 9am February 15, 2017 7:33am Prednisone Discontinued 30 MG PO 2 Times Per Day December 01, 2016 9:11am December 08, 2016 9:09am DIRECTED Cefdinir Discontinued 300 MG PO Every 12 Hours December 01, 2016 11:35am December 08, 2016 9:08am Albuterol Sulfate (Ventolin Hfa) 200 PUF FS/18 GM HFA aerosol inhaler Discontinued 2 PUFFS INH Every 4 hours December 08, 2016 8:35am March 18, 2017 6:54pm Cefdinir Discontinued 300 MG PO Every 12 Hours December 08, 2016 9:08am January 13, 2017 3:14pm Prednisone Discontinued 30 MG PO 2 Times Per Day December 08, 2016 9:09am December 17, 2016 2:59pm DIRECTED Immun Glob G(Igg)-Pro-Iga 0-50 (Hizentra) 1 GM/5 ML so lution Discontinued 75 MG SC 1 Time Per Week December 17, 2016 3:02pm May 15, 2017 10:46pm as per service station helper Nitrofurantoin Monohyd/M-Cryst (Macrobid 100 Mg Capsule) 100 MG capsule Discontinued 100 MG PO Every 12 Hours January 03, 2017 1:11pm January 05 11:52am Ciprofloxacin (Cipro Suspension) 500 MG/ 5 ML suspension,microcapsule recon Discontinued 500 MG PO 2 Times Per Day January 05, 2017 11:52am January 13, 2017 3:14pm Esomeprazole Magnesium (Nexium) 22.3 mg capsule,delayed release(DR/EC) Discontinued 22.3 MG PO 2 Times Per Day 60 January 18, 2017 8:11am April 16, 2017 12:26pm Repaglinide Discontinued 4 MG PO BID@1200,1800 120 January 18, 2017 6:30pm March 17, 2017 1:41pm Doxycycline Monohydrate Discontinued 100 MG PO 2 Times Per Day January 21, 2017 11: 33am February 15, 2017 7:36am Ciprofloxacin Hcl (Cipro) 500 MG tablet Discontinued 500 MG PO 2 Times Per Day January 28, 2017 3:06pm February 15, 2017 11:28am Citalopram (Celexa) 40 MG tablet Dis continued 40 MG PO O nce Per Day January 28, 2017 3:0 8pm April 12, 2017 4:40pm hold while taking cipro [id number] Atorvastatin (Lipitor) 20 MG tablet Discontinued 20 MG PO A t Bedtime February 04, 2017 6:1 2pm March 17, 2017 1:26pm Enalapril Maleate Discontinued 2.5 MG PO Once Per Day February 04, 2017 6:1 2pm June 06, 2017 12:42pm Ranitidine Hcl Discontinued 300 MG PO At Bedtime 60 February 04, 2017 6:12pm June 06, 2017 12:42pm Insulin Glargine U-300 Conc (Toujeo Solo star) 300 UNIT/1 ML insulin pen Discontinued 15 UNIT SQ At Bedtime February 15, 2017 7:36am March 1:42pm titrate up 5 units every week until BS f asting below 140 Budesonide Discontinued 0.5 MG NEB 2 Times Per Day February 15, 2017 9:57am February 15, 2017 11:29am Levofloxacin Discontinued 750 MG PO Once Per Day February 15, 2017 9:57am February 23, 2017 4:26pm Fluticasone Propionate (Flonase Allergy Relief) 9.9 ML spray,suspension Discontinued 2 SPRAYS NS Once Per Day February 15, 2017 9:57am March 252016 12:47am Amoxicillin-Pot Clavulanate (Augmentin 8 75-125 Tablet) 1 EACH tablet Discontinued 875 MG PO Every 12 Hours February 15, 2017 9:57am February 23, 2017 4:26pm Pen Needle,Diabetic Dual Safty (Autoshie ld Duo Pen Needle) 1 EACH needle Discontinued 1 EACH MC At Bedtime February 15, 2017 11:33am February 15, 2017 11:33am Pen Needle,Diabetic Dual Safty (Autoshie ld Duo Pen Needle) 1 EACH needle Discontinued 1 EACH MC At Bedtime February 15, 2017 11:33am March 112016 8:24am Blood Sugar Diagnostic (Onetouch Ultra T est Strips) 1 EACH strip Discontinued 1 EACH MC Once Per Day February 15, 2017 6:30pm February 16, 2017 5:27pm Blood Sugar Diagnostic (Onetouch Ultra T est Strips) 1 EACH strip Discontinued 1 EACH MC Once Per Day February 16, 2017 5:27pm March 252016 8:24am Loratadine Discontinued 10 MG PO Once Per Day February 23, 2017 4:26pm August 02, 2017 9:42am Fluticasone Furoate-Vilanterol (Breo Ell ipta 200-25 Mcg Inh) 1 EACH blister with device Discontinued 1 PUFFS INH Once Per Day March 02, 2017 10:58am March 25, 2017 12:46am Topiramate Discontinued 100 MG PO At Bedtime March 03, 2017 12:47pm March 18, 2017 6:54pm Topiramate (Topamax) 50 MG tablet Di scontinued 50 MG PO O nce Per Day March 03, 2017 12:47pm March 18, 2017 6:54pm Sitagliptin (Januvia) 100 MG tablet Discontinued 100 MG PO Once Per Day March 07, 2017 2:23pm March 18, 2017 6:54pm Gentamicin Discontinued 80 MG.KG IH Once Per Day March 09, 2017 12:36pm August 02, 2017 9:42am 80MG/2ML VIA INHALATION Ergocalciferol (Vitamin D2) (Vitamin D2) 50,000 UNITS capsule Discontinued 39149 UNITS PO 1 Time Per Week March 17, 2017 1:23pm June 30, 2017 10:03am Atorvastatin Discontinued 40 MG PO Once Per Day March 17, 2017 1:27pm August 02, 2017 9:42am Insulin Glargine U-300 Conc (Toujeo Solo star) 300 UNIT/1 ML insulin pen Discontinued 20 UNIT SQ At Bedtime March 17, 2017 1:42pm March 25, 2017 8:24am titrate up 5 units every week until BS f asting below 140 Prednisone Discontinued 30 MG PO 2 Times Per Day 60 March 17, 2017 2:56pm March 22, 2017 1:00pm DIREC MIMI Albuterol Sulfate (Ventolin Hfa) 200 PUF FS/18 GM HFA aerosol inhaler Discontinued 2 PUFFS INH Every 4 hours March 18, 2017 6:54pm July 122017 9:42am Topiramate Discontinued 100 MG PO At Bedtime March 18, 2017 6:54pm August 02, 2017 9:42am Topiramate (Topamax) 50 MG tablet Di scontinued 50 MG PO O nce Per Day March 18, 2017 6:54pm August 02, 2017 9:42am Sitagliptin (Januvia) 100 MG tablet Discontinued 100 MG PO Once Per Day March 18, 2017 6:54pm August 02, 2017 9:42am Prednisone Discontinued 50 MG PO Once Per Day 60 March 22, 2017 1:00pm April 04, 2017 8:41am DIRECTED Insulin Lispro (Humalog Kwikpen U-200) 2 00 UNIT/1 ML insulin pen Discontinued 1 - 20 UNIT SQ Before Meals & at Bedtime March 25, 2017 8:12am March 25, 2017 4:55pm as per sliding scale Blood Sugar Diagnostic (Onetouch Ultra B lue Test Strip) 1 EACH strip Discontinued 1 EACH MC Before Meals & at Bedtime March 25, 2017 8:24am November 28, 2017 10:03am Pen Needle,Diabetic Dual Safty (Bd Autos hield Duo Pen Needle) 1 EACH needle Discontinued 5 EACH MC Before Meals & at Bedtime March 25, 2017 8:24am September 21, 2017 3:27pm Insulin Glargine U-300 Conc (Toujeo Solo star) 300 UNIT/1 ML insulin pen Discontinued 20 UNIT SQ At Bedtime March 25, 2017 8:24am 2016 10:00am titrate up 5 units every week until BS f asting below 140 Lancets Discontinued 1 EACH MC Before Meals & at Bedtime 120 March 25 8:29am May 06, 2018 9:39am Insulin Lispro (Humalog Kwikpen U-100) 1 00 UNIT/1 ML insulin pen Discontinued 100 UNIT SQ Before Meals & at Bedtime March 25, 2017 4:55pm March 28, 2017 11:45am Insulin Lispro (Humalog Kwikpen Insulin) 100 UNIT/1 ML insulin pen Discontinued 0 - 25 UNIT SQ Before Meals & at Bedtime March 28, 2017 11:45am May 15, 2017 10:44pm as per sliding scale Sucralfate (Carafate) 1 GM tablet Di scontinued 1 G PO Fou r Times a Day April 01 11:08am April 07, 2017 9:38am Montelukast Discontinued 10 MG PO At Bedtime April 01, 2017 11:08am April 07, 2017 9:38am Prednisone Discontinued 40 MG PO Once Per Day 60 April 04, 2017 8:41am April 08, 2017 12:39pm DIRECTED Insulin Glargine U-300 Conc (Toujeo Solo star) 300 UNIT/1 ML insulin pen Discontinued 25 UNIT SQ At Bedtime April 04, 2017 10:00am April 11, 2017 12:13pm titrate up 5 units every week until BS f asting below 140 Cefdinir Discontinued 300 MG PO Every 12 Hours April 04, 2017 10:03am April 12, 2017 4:40pm Ipratropium-Albuterol Discontinued 3 MLS IH Four Times a Day April 05 5:44pm April 07, 2017 9:38am VIA NEBU LIZER Ipratropium-Albuterol Discontinued 3 MLS IH Four Times a Day April 07 9:38am August 23, 2018 1:55pm VIA NEBUL IZER Sucralfate (Carafate) 1 GM tablet Di scontinued 1 G PO Fou r Times a Day April 07 9:38am August 02, 2017 9:42am Montelukast Discontinued 10 MG PO At Bedtime April 07, 2017 9:38am August 02, 2017 9:42am Prednisone Discontinued 40 MG PO Once Per Day April 08, 2017 12:39pm April 16, 2017 12:25pm DIRECTE D Insulin Glargine U-300 Conc (Toujeo Solo star U-300 Insulin) 300 UNIT/1 ML insulin pen Discontinued 35 UNIT SQ At Bedtime April 11, 2017 12:13pm April 18, 2017 2:04pm titrate up 5 units every week until BS fasting below 140 Doxycycline Monohydrate Discontinued 100 MG PO 2 Times Per Day April 18, 2017 1 :58pm April 26, 2017 2:21pm Prednisone Discontinued 60 MG PO Once Per Day April 18, 2017 2:04pm May 23, 2017 9:36am taper as directed,stay on 60mg for now until recheck Insulin Glargine U-300 Conc (Toujeo Solo star U-300 Insulin) 300 UNIT/1 ML insulin pen Discontinued 40 UNIT SQ At Bedtime April 18, 2017 2:04pm May 27, 2017 5:02pm titrate up 5 units every week until BS fasting below 140 Doxycycline Monohydrate Discontinued 100 MG PO 2 Times Per Day April 26, 2017 2:21pm May 12, 2017 8:49am Ropinirole Discontinued 1 MG PO 2 Times Per Day May 01, 2017 5:58pm October 24, 2017 10:50am AND 0.5 TAB AT 2PM. Nystatin Discontinued 5 ML PO Four Times a Day May 12, 2017 9:57am May 03, 2018 8:23pm Prednisone Discontinued 50 MG PO Once Per Day May 23, 2017 9:36am June 01, 2017 8:30am taper as directed,stay on 60mg for now until recheck Aspirin Discontinued 325 MG PO Once Per Day May 26, 2017 8:51am October 13, 2017 11:03am Insulin Glargine U-300 Conc (Toujeo Solo star U-300 Insulin) 300 UNIT/1 ML insulin pen Discontinued 45 UNIT SQ At Bedtime May 27, 2017 5:02pm June 17, 2017 11:41am titrate up 5 units every week until BS fasting below 140 Azithromycin Discontinued 250 MG PO Once Per Day May 27, 2017 5:11June 01, 2017 8:29am TAKE 2 TA BS STAT AND THEN ONE DAILYX4 THEN GO TO M-W-F REGIMEN X4 WEEKS Prednisone Discontinued 60 MG PO Once Per Day 180 June 06, 2017 9:44am June 24, 2017 11:50am taper only as directed Azithromycin Discontinued 250 MG PO Once Per Day 18 June 06, 2017 12:31pm July 12, 2017 3:14pm TAKE 2 TABS STAT AND THEN ONE DAILYX4 THEN GO TO M-W-F REGIMEN X4 WEEKS Enalapril Maleate Discontinued 2.5 MG PO Once Per Day 30 June 06, 2017 12:42pm October 13, 2017 11:03am Ranitidine Hcl Discontinued 300 MG PO At Bedtime 60 June 06, 2017 12:42pm November 09, 2017 3:27pm Gabapentin Discontinued 300 MG PO Three times a day 90 June 06, 2017 12:42pm July 05, 2017 7:45am Immun Glob G(Igg)-Pro-Iga 0-50 (Hizentra 1 Gram/5 Ml Vial) 1 GM/5 ML solution Discontinued 50 MG.KG SC 1 Time Per Week June 06, 2017 12:55pm May 06, 2018 9:46am 75 or as per Jordyn Insulin Glargine U-300 Conc (Toumarleeno Solo star) 300 UNIT/1 ML insulin pen Discontinued 50 UNIT SQ At Bedtime June 17, 2017 11:41am July 122017 9:40am titrate up 5 units every week until BS f asting below 140 Prednisone Discontinued 40 MG PO Once Per Day 120 June 24, 2017 11:50am July 12, 2017 4:18pm taper only as directed Epinephrine (Epipen) 0.3 MG/0.3 ML auto-injector Discontinued 0.3 MG IM ONE TIME June 27, 2017 3:59pm November 08, 2018 6:15am Epinephrine (Epipen) 0.3 MG/0.3 ML auto-injector Discontinued 0.3 MG IM ONE TIME June 27, 2017 3:59pm October 25, 2019 6:21am Ergocalciferol (Vitamin D2) (Vitamin D2) 50,000 UNITS capsule Discontinued 68132 UNITS PO 1 Time Per Week June 30, 2017 10:03am November 09, 2017 3:27pm Epps-3 Acid Ethyl Esters (Lovaza*) 1 GM capsule Discontinued 2 CAP PO 2 Times Per Day 120 June 30, 2017 10:03am November 09, 2017 3:27pm Gabapentin Discontinued 300 MG PO Three times a day July 05, 2017 7:45am February 28, 2018 11:56am Insulin Lispro (Humalog) 100 UNITS/ML solution Discontinued 1 UNIT SC 4x/Day BEFORE Meals & HS PRN July 12, 2017 4:09pm December 07, 018 6:44am see revised Sliding scale per home. Prednisone Discontinued 30 MG PO Once Per Day July 12, 2017 4:18pm August 02, 2017 9:39am taper only as directed Budesonide (Pulmicort) 0.5 MG/2 ML suspe nsion for nebulization Discontinued 0.5 MG NEB 2 Times Per Day August 01, 2017 4:22pm December 06, 2017 12:22pm use in addition to Breo daily Insulin Glargine U-300 Conc (Toujeo Solo star) 300 UNIT/1 ML insulin pen Discontinued 55 UNIT SQ At Bedtime August 02, 2017 9:40am October 13, 2017 11:01am titrate up 5 units every week until BS f asting below 140 Atorvastatin Discontinued 40 MG PO Once Per Day August 02, 2017 9:42am November 09, 2017 3:27pm Sucralfate (Carafate) 1 GM tablet Di scontinued 1 G PO Fou r Times a Day August 02, 2017 9:42am October 26, 2017 12:34pm Montelukast Discontinued 10 MG PO At Bedtime August 02, 2017 9:42am November 09, 2017 3:27pm Albuterol Sulfate (Ventolin Hfa) 200 PUF FS/18 GM HFA aerosol inhaler Discontinued 2 PUFFS INH Every 4 hours August 02, 2017 9:42am November 09, 2 018 4:59pm Topiramate Discontinued 100 MG PO At Bedtime August 02, 2017 9:42am November 09, 2017 3:28pm Loratadine Discontinued 10 MG PO Once Per Day August 02, 2017 9:42am November 09, 2017 3:27pm Topiramate (Topamax) 50 MG tablet Di scontinued 50 MG PO O nce Per Day August 02, 2017 9:42am November 09, 2017 3:27pm Sitagliptin (Januvia) 100 MG tablet Discontinued 100 MG PO Once Per Day August 02, 2017 9:42am October 13, 2017 11:03am Azithromycin Discontinued 250 MG PO As Directed (Daily ) August 02, 2017 9 :47am August 22, 2017 12:24pm TAKE 2 T ABS STAT AND THEN ONE DAILY Amoxicillin Discontinued 500 MG PO Three times a day August 22, 2017 12:27pm September 28, 2017 8:49am Valacyclovir (Valtrex) 1000 MG tablet Discontinued 1000 MG PO 2 Times Per Day August 30, 2017 4:13pm September 13, 2017 3:53pm Doxycycline Hyclate Discontinued 100 MG PO 2 Times Per Day September 13, 2017 4:4 0pm September 28, 2017 8:49am Prednisone Discontinued 20 MG PO As Directed (Daily) September 13, 2017 4:40pm September 28, 2017 8:49am 3 TABS QD X4 D, 2 TABS QD X4D, 1 TAB QD X4D THEN DISCONTINUE Pen Needle,Diabetic Dual Safty (Autoshie ld Duo Pen Needle) 1 EACH needle Discontinued 5 EACH MC Before Meals & at Bedtime September 21, 2017 3:27pm March 27, 2018 3:28pm Prednisone Discontinued 20 MG PO Once Per Day 60 September 28, 2017 9:38am October 26, 2017 12:51pm DIRECTED Azithromycin Discontinued 250 MG PO Once Per Day September 28, 2017 9:39am October 13, 2017 10:34am Take 2 tablets (500mg) by mouth on day 1 Take 1 tablet(250 mg) days 2-5 Insulin Glargine U-300 Conc (Toujeo Solo star) 300 UNIT/1 ML insulin pen Discontinued 55 UNIT SQ At Bedtime October 13, 2017 11:01am November 09 8 3:26pm titrate up 5 units every week until BS f asting below 140-TAKE ONLY 27 UNITS NIGHT BEFORE SURGERY Enalapril Maleate Discontinued 2.5 MG PO Once Per Day October 13, 2017 11: 03am January 30, 2018 7:44am TAKE THE MOR DOMINIK OF SURGERY WITH SMALL SIP OF WATER Aspirin Discontinued 325 MG PO Once Per Day October 13, 2017 11:03am November 30, 2017 6:56am sTOPPED 7 DAYS PRIOR TO SURGERY Esomeprazole Magnesium (Nexium) 22.3 mg capsule,delayed release(DR/EC) Discontinued 20 MG PO 2 Times Per Day 60 October 13, 2017 11:03am November 04, 2017 9:32am TAKE MORNING DOSE MORNING OF SURGERY WI TH SMALL SIP OF WATER Sitagliptin (Januvia) 100 MG tablet Discontinued 100 MG PO Once Per Day 30 October 13, 2017 11:03am January 30, 2018 7:43am HOLD THE MORNING OF SURGERY Ropinirole Discontinued 1 MG PO 2 Times Per Day 75 October 24, 2017 10:50am April 17, 2018 3:36pm AND 0.5 TAB AT 2PM. Cefdinir Discontinued 300 MG PO Every 12 Hours 14 October 26, 2017 12:36pm November 09, 2017 2:54pm Prednisone Discontinued 40 MG PO Once Per Day 100 October 26, 2017 12:51pm November 09, 2017 3:24pm [id number] dthen 10mgdaily OR DIRECTED Esomeprazole Magnesium (Nexium) 22.3 mg capsule,delayed release(DR/EC) Discontinued 20 MG PO 2 Times Per Day 60 November 04, 2017 9:32am April 3:09pm TAKE MORNING DOSE MORNING OF SURGERY WI TH SMALL SIP OF WATER Prednisone Discontinued 20 MG PO Once Per Day November 09, 2017 3:24pm M ay 2017 3:30pm OR DIRECTED Insulin Glargine U-300 Conc (Toujeo Solo star) 300 UNIT/1 ML insulin pen Discontinued 60 UNIT SQ At Bedtime November 09, 2017 3:26pm December 21, 2017 4:22pm titrate up 5 units every week until BS f asting below 140-TAKE ONLY 27 UNITS NIGHT BEFORE SURGERY Atorvastatin Discontinued 40 MG PO Once Per Day November 09, 2017 3:27pm July 21, 2018 8:54am Ranitidine Hcl Discontinued 300 MG PO At Bedtime November 09, 2017 3:27pm July 21, 2018 8:54am Montelukast Discontinued 10 MG PO At Bedtime November 09, 2017 3:27pm A lilibethust 2017 11:44am Ergocalciferol (Vitamin D2) (Vitamin D2) 50,000 UNITS capsule Discontinued [id number] UNITS PO 1 Time Per Week November 09, 2017 3:27pm July 21, 2 019 8:54am Loratadine Discontinued 10 MG PO Once Per Day November 09, 2017 3:27pm J anuary 2018 8:54am Topiramate (Topamax) 50 MG tablet Di scontinued 50 MG PO O nce Per Day November 09, 2017 3:27p m December 21, 2017 10:26am Epps-3 Acid Ethyl Esters (Lovaza*) 1 GM capsule Discontinued 2 CAP PO 2 Times Per Day November 09, 2017 3:27pm May 06, 2018 9:41am Prednisone Discontinued 10 MG PO Once Per Day November 09, 2017 3:30pm J une 2017 4:15pm OR DIRECTED Albuterol Sulfate (Ventolin Hfa) 200 PUF FS/18 GM HFA aerosol inhaler Discontinued 2 PUFFS INH Every 4 hours November 09, 2017 4:59pm July 21, 019 8:54am Blood-Glucose Meter Discontinued 1 EACH MC Once Per Day November 25, 2017 9:35a m May 06, 2018 9:37am Blood Sugar Diagnostic (Onetouch Verio) 1 EACH strip Discontinued 1 EACH MC Four Times a Day November 28, 2017 10:03am May 06, 2018 9:37am Aspirin Discontinued 325 MG PO Once Per Day November 30, 2017 6:56am August 16, 2018 5:24pm sTOPPED 7 DAYS PRIOR TO SURGERY Sucralfate (Carafate) 1 GM tablet Di scontinued 1 G PO Fou r Times a Day November 30, 2017 3:3 7pm December 21, 2017 4:15pm Azithromycin Discontinued 250 MG PO As Directed (Daily ) December 06, 2017 11:17 am December 08, 2017 11:25am TAKE 2 TABS S TAT AND THEN ONE DAILY Prednisone Discontinued 40 MG PO Once Per Day December 06, 2017 11:18am December 21, 2017 4:14pm DIRECTED Budesonide (Pulmicort) 0.5 MG/2 ML suspe nsion for nebulization Discontinued 0.5 MG NEB 2 Times Per Day December 06, 2017 12:22pm April 24, 2018 6:34am use in addition to Breo daily Insulin Lispro (Humalog) 100 UNITS/ML solution Discontinued 1 UNIT SC 4x/Day BEFORE Meals & HS PRN December 07, 2017 6:44am April 20, 2018 12:09pm see revised Sliding scale per home. Cefuroxime Axetil Discontinued 500 MG PO 2 Times Per Day December 08, 2017 11:2 6am December 21, 2017 3:17pm Topiramate (Topamax) 50 MG tablet Di scontinued 50 MG PO O nce Per Day December 21, 2017 10: 26am April 20, 2018 10:23am Insulin Glargine U-300 Conc (Toujeo Solo star) 300 UNIT/1 ML insulin pen Discontinued 65 UNIT SQ At Bedtime December 21, 2017 4:22pm December 27 3:59pm titrate up 5 units every week until BS f asting below 140-TAKE ONLY 27 UNITS NIGHT BEFORE SURGERY Ciprofloxacin Hcl Discontinued December 27, 2017 3:41pm December 27, 2017 3:43pm Ciprofloxacin Hcl Discontinued 500 MG PO 2 Times Per Day December 27, 2017 3:4 3pm January 03, 2018 11:46am ends 12-30-17 Insulin Glargine U-300 Conc (Toujeo Solo star) 300 UNIT/1 ML insulin pen Discontinued 70 UNIT SQ At Bedtime December 27, 2017 3:59pm January 30 9:59am titrate up 5 units every week until BS f asting below 140-TAKE ONLY 27 UNITS NIGHT BEFORE SURGERY Ciprofloxacin Hcl Discontinued 1 TAB PO 2 Times Per Day January 03, 2018 11: 45am January 30, 2018 9:21am Prednisone Discontinued 40 MG PO Once Per Day January 03, 2018 11:47am January 30, 2018 9:21am DIRECTED Sitagliptin (Januvia) 100 MG tablet Discontinued 100 MG PO Once Per Day January 30, 2018 7:43am July 25, 2018 8:18am HOLD THE MORNING OF SURGERY Enalapril Maleate Discontinued 2.5 MG PO Once Per Day January 30, 2018 7:4 4am July 25, 2018 8:18am TAKE THE MORNING OF SURGERY WITH SMALL SIP OF WATER Mycophenolate Mofetil (Cellcept*) 500 MG tablet Discontinued 1000 MG PO At Bedtime January 30, 2018 9:56am May 06, 2018 9:44am and 1 in Am Insulin Glargine U-300 Conc (Toujeo Solo star U-300 Insulin) 300 UNIT/1 ML insulin pen Discontinued 75 UNIT SQ At Bedtime January 30, 2018 9:59am May 26, 2018 9:54am titrate up 5 units every week until BS fasting below 140-TAKE ONLY 27 UNITS NIGHT BEFORE SURGERY Azithromycin Discontinued 250 MG PO As Directed (Daily ) February 01, 2018 12:4 9pm March 01, 2018 11:01am TAKE 2 TAB S STAT AND THEN ONE DAILY Montelukast Discontinued 10 MG PO At Bedtime 30 February 14, 2018 11:44am August 15, 2018 10:07pm Gabapentin Discontinued 300 MG PO Three times a day February 28, 2018 11:56am October 22, 2018 5:19pm Pen Needle,Diabetic Dual Safty (Autoshie ld Duo Pen Needle) 1 EACH needle Discontinued 5 EACH MC Before Meals & at Bedtime March 27, 2018 3:28pm May 06, 2018 9:40am Amoxicillin-Pot Clavulanate (Augmentin 8 75-125 Tablet) 1 EACH tablet Discontinued 1 EACH PO 2 Times Per Day 20 April 05, 2018 10:00am April 20, 2018 9:19am Alprazolam (Xanax) 0.25 MG tablet Di scontinued 0.25 MG PO Three times a day PRN 60 April 05, 2018 10:31am November 08, 2018 7:46am Reference #: [id number] Alprazolam (Xanax) 0.25 MG tablet Di scontinued 0.25 MG PO Three times a day PRN 60 April 05, 2018 10:31am December 26, 2018 6:28pm Reference #: [id number] Ropinirole Discontinued 1 MG PO 2 Times Per Day 75 April 17, 2018 3:36pm October 22, 2018 5:19pm AND 0.5 TAB AT 2PM. Topiramate Discontinued April 20, 2018 10:24am April 112017 1:12pm Prednisone Discontinued 40 MG PO Once Per Day 60 April 20, 2018 10:29am May 03, 2018 8:50pm [id number],10mg until recheck OR DIRECTED Fluticasone Furoate-Vilanterol (Breo Ell ipta) 1 EACH blister with device Discontinued 1 EACH IH Once Per Day April 20, 2018 10:31am October 5:19pm Insulin Lispro (Humalog) 100 UNITS/ML solution Discontinued 1 UNIT SC 4x/Day BEFORE Meals & HS PRN 2 April 20, 2018 12:09pm April 102017 1:13pm see revised Sliding scale per home. Insulin Lispro (Admelog Solostar) 100 UNIT/1 ML INSULN .PEN Discontinued 1 - 12 UNIT SQ Before Meals & at Bedtime April 20, 2018 1:13pm October 22, 2018 8:30pm Budesonide (Pulmicort) 0.5 MG/2 ML suspe nsion for nebulization Discontinued 0.5 MG NEB 2 Times Per Day 60 April 24, 2018 6:34am May [id number] 8:30pm use in addition to Breo daily Esomeprazole Magnesium (Nexium) 22.3 mg capsule,delayed release(DR/EC) Discontinued 20 MG PO 2 Times Per Day 60 April 25, 2018 3:09pm October 5:20pm TAKE MORNING DOSE MORNING OF SURGERY WI SMALL SIP OF WATER Nystatin Discontinued 10 ML PO Three times a day 300 May 17, 2018 5:32pm September 14, 2018 5:33pm Insulin Glargine U-300 Conc (Toujeo Solo star) 300 UNIT/1 ML insulin pen Discontinued 80 UNIT SQ At Bedtime 1 May 26, 2018 9:54am August 25, 2018 4:11pm titrate up 5 units every week until BS f asting below 140-TAKE ONLY 27 UNITS NIGHT BEFORE SURGERY Sucralfate (Carafate) 1 GM tablet Di scontinued 1 G PO Fou r Times a Day 120 June 06 8 4:12pm September 10, 2018 12:23pm Atorvastatin Discontinued 40 MG PO Once Per Day July 21, 2018 8:54am October 22, 2018 8:25pm Ranitidine Hcl Discontinued 300 MG PO At Bedtime 60 July 21, 2018 8:54am October 22, 2018 8:25pm Ergocalciferol (Vitamin D2) (Vitamin D2) 50,000 UNITS capsule Discontinued 14900 UNITS PO 1 Time Per Week 4 July 21, 2018 8:54am October 8:25pm Albuterol Sulfate (Ventolin Hfa) 200 PUF FS/18 GM HFA aerosol inhaler Discontinued 2 PUFFS INH Every 4 hours July 21, 2018 8:54am October 8:25pm Loratadine Discontinued 10 MG PO Once Per Day July 21, 2018 8:54am October 22, 2018 8:25pm Enalapril Maleate Discontinued 2.5 MG PO Once Per Day July 25, 2018 8:18am October 22, 2018 8:25pm TAKE THE MO RNING OF SURGERY WITH SMALL SIP OF WATER Sitagliptin (Januvia) 100 MG tablet Discontinued 100 MG PO Once Per Day July 25, 2018 8:18am October 22, 2018 8:25pm HOLD THE MORNING OF SURGERY Pen Needle,Diabetic Dual Safty (Bd Autos hield Duo Pen Needle) 1 EACH needle Discontinued 1 EACH MC Before Meals & at Bedtime August 11, 2018 11:20am October 22, 2018 8:25pm Montelukast Discontinued 10 MG PO At Bedtime August 15, 2018 10:07pm October 22, 2018 8:25pm Prednisone Discontinued 40 MG PO Once Per Day August 16, 2018 4:58pm September 13, 2018 9:58am Epinephrine Discontinued 0.3 MG SQ prn August 16, 2018 5:02pm August 16, 2018 5:02pm 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 from e service station helper Epinephrine Discontinued 0.3 MG SQ prn August 16, 2018 5:02pm September 12, 2018 11:53am 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 from e service station helper Aspirin (Ecotrin) 81 MG tablet,delayed release (DR/EC) Discontinued 81 MG PO Once Per Day August 16, 2018 5:25pm August 122018 7:02pm Cefuroxime Axetil Discontinued 500 MG PO 2 Times Per Day August 21, 2018 8:26am September 05, 2018 3:31pm Ipratropium-Albuterol Discontinued 3 MLS IH Four Times a Day August 23 9 1:55pm October 22, 2018 8:25pm VIA NEBULIZE R LANTUS SOLOSTAR Discontinued 88 UNIT SQ At Bedtime August 25, 2018 4:13pm September 10, 2018 3:58pm Or as directe d Aspirin (Ecotrin Low Strength) 81 MG tab let,delayed release (DR/EC) Discontinued 81 MG PO Once Per Day September 07, 2018 7:02pm October 8:25pm Prednisone Discontinued 30 MG PO Once Per Day September 20, 2018 3:46pm September 29, 2018 4:00pm DIRECTED Levofloxacin (Levaquin) 500 MG tablet Discontinued 500 MG PO Once Per Day September 25, 2018 12:15pm September 29, 2018 4:01pm Azithromycin Discontinued 250 MG PO As Directed (Daily ) September 29, 2018 3:5 2pm September 29, 2018 4:01pm TAKE 2 TABS STAT AND THEN ONE DAILY Prednisone Discontinued 20 MG PO Once Per Day 60 September 29, 2018 4:00pm October 18, 2018 2:30pm DIRECTED Azithromycin Discontinued 250 MG PO As Directed (Daily ) September 29, 2018 4:0 1pm October 10, 2018 11:20am TAKE 2 TABS STAT AND THEN ONE DAILY-start 09-30-18 Prednisone Discontinued 10 MG PO TAPER 0 October 18, 2018 3:38pm November 08, 2018 10:42am 20mg x 4 days, 1tab daily x 4 days Prednisone Discontinued 10 MG PO TAPER 0 October 18, 2018 3:38pm November 08, 2018 10:24pm 20mg x 4 days, 1tab daily x 4 days Ropinirole Discontinued 1 MG PO 2 Times Per Day 75 October 22, 2018 5:19pm November 08, 2018 10:44am AND 0.5 TAB AT 2PM. Ropinirole Discontinued 1 MG PO 2 Times Per Day 75 October 22, 2018 5:19pm December 26, 2018 6:28pm AND 0.5 TAB AT 2PM. Fluticasone Furoate-Vilanterol (Breo Ell ipta) 1 EACH blister with device Discontinued 1 EACH IH Once Per Day 1 October 22, 2018 5:19pm November 08 9 10:44am Fluticasone Furoate-Vilanterol (Breo Ell ipta) 1 EACH blister with device Discontinued 1 EACH IH Once Per Day 1 October 22, 2018 5:19pm December 26, 019 6:28pm Gabapentin Discontinued 300 MG PO Three times a day 90 October 22, 2018 5:19pm November 08, 2018 10:21pm Esomeprazole Magnesium (Nexium) 22.3 mg capsule,delayed release(DR/EC) Discontinued 20 MG PO 2 Times Per Day 60 October 22, 2018 5:20pm November 08 9 10:44am TAKE MORNING DOSE MORNING OF SURGERY WI TH SMALL SIP OF WATER Esomeprazole Magnesium (Nexium) 22.3 mg capsule,delayed release(DR/EC) Discontinued 20 MG PO 2 Times Per Day 60 October 22, 2018 5:20pm December 26, 2 019 6:28pm TAKE MORNING DOSE MORNING OF SURGERY WI TH SMALL SIP OF WATER Atorvastatin Discontinued 40 MG PO Once Per Day 30 October 22, 2018 8:25pm November 08, 2018 10:45am Atorvastatin Discontinued 40 MG PO Once Per Day 30 October 22, 2018 8:25pm November 08, 2018 10:45pm Ipratropium-Albuterol Discontinued 3 MLS IH Four Times a Day 120 October 22, 2018 8 :25pm November 08, 2018 10:45am VIA NEBULIZER Ipratropium-Albuterol Discontinued 3 MLS IH Four Times a Day 120 October 22, 2018 8 :25pm November 08, 2018 11:16pm VIA NEBULIZER Enalapril Maleate Discontinued 2.5 MG PO Once Per Day 30 October 22, 2018 8: 25pm November 08, 2018 10:45am TAKE THE MORN ING OF SURGERY WITH SMALL SIP OF WATER Enalapril Maleate Discontinued 2.5 MG PO Once Per Day October 22, 2018 8: 25pm November 08, 2018 10:45pm TAKE THE MORN ING OF SURGERY WITH SMALL SIP OF WATER Aspirin (Ecotrin Low Strength) 81 MG tab let,delayed release (DR/EC) Discontinued 81 MG PO Once Per Day 30 October 22, 2018 8:25pm November 08 9 10:45am Aspirin (Ecotrin Low Strength) 81 MG tab let,delayed release (DR/EC) Discontinued 81 MG PO Once Per Day 30 October 22, 2018 8:25pm November 08 9 10:17pm Ranitidine Hcl Discontinued 300 MG PO At Bedtime 60 October 22, 2018 8:pm November 08, 2018 10:45am Ranitidine Hcl Discontinued 300 MG PO At Bedtime 60 October 22, 2018 8:25pm December 26, 2018 6:28pm Montelukast Discontinued 10 MG PO At Bedtime October 22, 2018 8:25pm November 08, 2018 10:45am Montelukast Discontinued 10 MG PO At Bedtime October 22, 2018 8:25pm December 26, 2018 6:28pm Ergocalciferol (Vitamin D2) (Vitamin D2) 50,000 UNITS capsule Discontinued 19613 UNITS PO 1 Time Per Week October 22, 2018 8:25pm November 08 9 10:45am Ergocalciferol (Vitamin D2) (Vitamin D2) 50,000 UNITS capsule Discontinued 76201 UNITS PO 1 Time Per Week October 22, 2018 8:25pm November 08 9 10:45pm Albuterol Sulfate (Ventolin Hfa) 200 PUF FS/18 GM HFA aerosol inhaler Discontinued 2 PUFFS INH Every 4 hours October 22, 2018 8:25pm November 08 9 10:45am Albuterol Sulfate (Ventolin Hfa) 200 PUF FS/18 GM HFA aerosol inhaler Discontinued 2 PUFFS INH Every 4 hours October 22, 2018 8:25pm November 08 9 10:45pm Loratadine Discontinued 10 MG PO Once Per Day October 22, 2018 8:25pm November 08, 2018 10:45am Loratadine Discontinued 10 MG PO Once Per Day October 22, 2018 8:25pm December 26, 2018 6:28pm Sitagliptin (Januvia) 100 MG tablet Discontinued 100 MG PO Once Per Day October 22, 2018 8:25pm November 08, 2018 10:45am HOLD THE MORNING OF SURGERY Sitagliptin (Januvia) 100 MG tablet Discontinued 100 MG PO Once Per Day October 22, 2018 8:25pm November 15, 2018 1:18pm HOLD THE MORNING OF SURGERY Pen Needle,Diabetic Dual Safty (Bd Autos hield Duo Pen Needle) 1 EACH needle Discontinued 1 EACH MC Before Meals & at Bedtime October 22, 2018 8:25pm November 08, 2018 10:45am Pen Needle,Diabetic Dual Safty (Bd Autos hield Duo Pen Needle) 1 EACH needle Discontinued 1 EACH MC Before Meals & at Bedtime October 22, 2018 8:25pm December 26, 2018 6:28pm Insulin Glargine (Basaglar Kwikpen U-100 Insulin) 100 UNIT/1 ML insulin pen Discontinued 90 UNIT SQ At Bedtime October 22, 2018 8:pm November 08 9 10:45am Insulin Glargine (Basaglar Kwikpen U-100 Insulin) 100 UNIT/1 ML insulin pen Discontinued 90 UNIT SQ At Bedtime October 22, 2018 8:28pm November 16 9 9:59am Insulin Lispro (Admelog Solostar) 100 INSULN.PEN Discontinued 0 .Route .MEDSUPPLY October 22, 2018 8:30pm April 13, 2019 2:27pm SLIDING SCALE Insulin Nph Isoph U-100 Human (Humulin N Kwikpen) 100 UNIT/1 ML insulin pen Discontinued 20 UNIT SQ Once Per Day October 30, 2018 12:42pm November 08 10:51am skip if not eating breakfast-take with b reakfast meal Insulin Nph Isoph U-100 Human (Humulin N Kwikpen) 100 UNIT/1 ML insulin pen Discontinued 20 UNIT SQ Once Per Day October 30, 2018 12:42pm November 14 3:34pm skip if not eating breakfast-take with b reakfast meal Lancets (Onetouch Delica Lancets) 33 gauge misc Discontinued 0 .ROUTE .MEDSUPPLY November 10, 2018 2:47pm November 10, 2018 2:59pm As directed Lancets (Onetouch Delica Lancets) 33 gauge misc Discontinued 0 .ROUTE .MEDSUPPLY November 10, 2018 2:58pm December 06, 2018 3:13pm As directed Insulin Glargine (Basaglar Kwikpen U-100 Insulin) 100 unit/mL (3 mL) insulin pen Discontinued 85 UNIT SQ At Bedtime November 16, 2018 9:58am 2018 12:33pm Insulin Glargine (Basaglar Kwikpen U-100 Insulin) 100 unit/mL (3 mL) insulin pen Discontinued 75 UNIT SQ At Bedtime November 20, 2018 12:33pm December 06, 2018 4:19pm Cyanocobalamin (Vitamin B-12) (Vitamin B-12) 100 mcg t ablet Active 500 MCG PO Once Per Day December 01, 2018 3:09pm Ferrous Sulfate (Iron) 325 mg (65 mg iro n) capsule, extended release Active 325 MG PO 2 Times Per Day December 01, 2018 3:09pm Blood Sugar Diagnostic ([employer] Verio Test Strips) st rip Discontinued 0 .ROUTE .MEDSUPPLY December 01, 2018 3:59pm December 26 9 6:28pm Use 1 test strip to test 4x per day Levofloxacin (Levaquin) 500 mg tablet Discontinued 500 MG PO daily 10 December 18, 2018 10: 02am December 19, 2018 1:33pm Ergocalciferol (Vitamin D2) (Vitamin D2) 50,000 unit c apsule Discontinued 97509 UNIT PO 1 Time Per Week January 13, 2019 8:56pm July 14 020 8:27am weekly on TUE. Esomeprazole Magnesium (Nexium) 20 mg ca psule,delayed release(DR/EC) Discontinued 20 MG PO 2 Times Per Day 60 January 13, 2019 8:57pm January 19 9 12:25pm Ranitidine Hcl Discontinued 300 MG PO At Bedtime January 13, 2019 9:00pm July 14, 2019 8:27am Blood Sugar Diagnostic (Onetouch Verio) strip Discontinued STRIP .[facility] January 26, 2019 4:36pm January 26, 2019 4:38pm Use strips to test sugar before meals and at bedtime Blood Sugar Diagnostic (Onetouch Verio Test Strips) st rip Discontinued STRIP .MEDSUPPLY January 26, 2019 4:37pm June 18, 2019 1:49pm Use strips to test sugar before meals a nd at bedtime Doxycycline Hyclate Discontinued 100 MG PO 2 Times Per Day February 22, 2019 6 :54am March 05, 2019 9:39am Azithromycin (Zithromax) 250 mg tablet Discontinued 250 MG PO daily May 04, 2019 1 2:58pm June 26, 2019 4:07pm Rifampin Active 300 MG PO daily May 04, 2019 12:59pm Ethambutol Active 1600 MG PO daily May 04, 2019 12:59pm Sertraline Discontinued 50 MG PO daily May 04, 2019 1:45pm July 29, 2019 8:43am Lancets (Onetouch Delica Lancets) 33 gauge misc Active gauge .MEDSUPPLY June 01, 2019 3:57pm to be used AC and HS Blood Sugar Diagnostic (Onetouch Verio) strip Active STRIP .MEDSUPPLY June 18, 2019 1:48pm Use strips to test sugar before meals and at bedtime Gabapentin Discontinued 300 MG PO Three times a day June 18, 2019 1:48pm October 29, 2019 1:56pm Enalapril Maleate Discontinued 2.5 MG PO Once Per Day July 14, 2019 8 :26am July 22, 2020 9:19am Ergocalciferol (Vitamin D2) (Vitamin D2) 1,250 mcg (50,000 unit) capsule Active [id number] UNIT PO 1 Time Per Week July 14, 2019 8:26am weekly on TUE. Ranitidine Hcl Discontinued 300 MG PO At Bedtime 60 July 14, 2019 8:27am October 29, 2019 1:59pm Esomeprazole Magnesium Discontinued 40 MG PO daily July 25, 2019 5:47pm August 14, 2019 9:49am Sertraline Discontinued 50 MG PO daily July 29, 2019 8:43am October 15, 2019 12:36pm Esomeprazole Magnesium Discontinued 40 MG PO 2 Times Per Day 60 August 14, 2019 9:48am October 05, 2019 7:42am Esomeprazole Magnesium Discontinued 40 MG PO 2 Times Per Day 60 October 05, 2019 7: 42am October 29, 2019 1:56pm Alprazolam (Xanax) 0.25 mg tablet Active 0.25 MG PO Three times a day PRN October 15, 2019 12:10pm Reference #: [id number] Epinephrine (Epipen) 0.3 mg/0.3 mL auto-injector Active 0.3 MG IM ONE TIME October 25, 2019 6:20am Atorvastatin Discontinued 40 MG PO Once Per Day October 25, 2019 6:24am January 25, 2020 10:07am Aspirin Discontinued 81 MG PO daily November 04, 2019 12:35pm April 02, 2020 4:41pm enteric coated Insulin Glargine (Basaglar Kwikpen U-100 Insulin) 100 unit/mL (3 mL) insulin pen Discontinued 65 UNIT SQ At Bedtime November 23, 2019 7:36am December 24, 2019 1:54pm Gabapentin Discontinued 300 MG PO Three times a day November 28, 2019 8:09am May 21, 2020 6:37pm Famotidine Discontinued 40 MG PO At Bedtime December 26, 2019 12:55pm January 03, 2020 10:18am Famotidine Discontinued 40 MG PO At Bedtime January 03, 2020 10:17am May 21, 2020 6:37pm 01/03/20-note from pharmacy,currently med unavailable in all strengths.[facility] [employer] Atorvastatin Discontinued 40 MG PO Every Evening January 25, 2020 10:07am April 02, 2020 4:41pm Montelukast Discontinued 10 MG PO Every Evening April 02, 2020 4:40pm April 23, 2020 6:46am Aspirin Discontinued 81 MG PO daily April 02, 2020 4:40pm April 23, 2020 6:47am Must be enteric-coated Atorvastatin Active 40 MG PO Every Evening April 02, 2020 4:40pm Loratadine Active 0 .ROUTE .COMPLEX April 23, 2020 6:45am TAKE ONE TABLET BY MOUTH EVERY DAY FOR A LLERGIC RHINITIS Esomeprazole Magnesium Active 0 .ROUTE .COMPLEX April 23, 2020 6:45am TAKE ONE CAPSULE BY MOUTH TW ICE A DAY Montelukast Active 0 .ROUTE .COMPLEX April 23, 2020 6:45am TAKE ONE TABLET BY MOUTH AT BEDTIME FOR ALLERGIC RHINITIS Aspirin Active 81 MG PO daily April 23, 2020 6:47am Must be enteric-coated Gabapentin Active 0 .ROUTE .COMPLEX May 21, 2020 6:37pm TAKE ONE CAPSULE BY MOUTH THREE TIMES A DAY Famotidine Active 0 .ROUTE .COMPLEX May 21, 2020 6:37pm TAKE ONE TABLET BY MOUTH AT BEDTIME Sertraline Active 0 .ROUTE .COMPLEX June 19, 2020 9:41am TAKE ONE TABLET BY MOUTH EVERY DAY Enalapril Maleate Discontinued 2.5 MG PO Once Per Day July 22, 2020 9:19am July 29, 2020 11:08am Dexamethasone Active 6 MG PO daily July 27, 2020 10:06am Enalapril Maleate Active 0 .ROUTE .COMPLEX July 29, 2020 11:07am TAKE ONE TABLET BY MOUTH EVERY DAY Problems Active Problems Medical Problem Onset Date Status Depression with anxiety Active DMITRI on CPAP Active Mycobacterium avium infection Active Shortness of breath Ac tive Common variable immunodeficiency Active Hypertension, essential Active Mild vitamin D deficiency Active Cough Active Mixed hyperlipidemia A ctive Myasthenia gravis Acti ve Postmenopausal Active 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 Mixed stress and urge urinary incontinence Active Wheezes July, Ac tive Heme positive stool Ac tive Bronchiectasis Active GERD (gastroesophageal reflux disease) Active Allergic rhinitis Acti ve DM gastroparesis Activ e Inactive/Resolved Problems Medical Problem Onset Date Status Asthma w/ status asthmaticus Resolved Asthma exacerbation Re solved Sinobronchitis Resolve d UTI (urinary tract infection) Resolved RML pneumonia Resolved Eustachian tube dysfunction Resolved Influenza A Resolved Influenza B Resolved Hemoptysis Resolved Diabetes mellitus Reso lved Cough Resolved Mixed hyperlipidemia R esolved Sinusitis Resolved Enterobacter cloacae pneumonia Resolved History of carpal tunnel surgery Resolved Severe persistent asthma dependent on sy stemic steroids with acute exacerbation Resolved Thrush of mouth and esophagus Resolved Aspiration pneumonia due to regurgitated gastric secre tions Resolved Heme positive stool Re solved Bilateral pneumonia Re solved Bilateral pneumonia Re solved LLL pneumonia January, Resolved Hypoglycemia associated with diabetes Resolved Bronchitis Resolved Pneumonia Resolved Procedures Procedure Date Performed Status SARS Antigen (LFIA) July 24, 2020 completed Stool Occult Blood (TYLER) April 16, 2020 completed US Abdomen complete January 31, 2020 8:00am completed Xray UGI w/air, w/o KUB-DBL CO January 31, 2020 8:47am completed AFB Specimen Processing Tissue November 03, 2019 completed Acid Fast Bacilli Smear November 03, 2019 completed Acid Fast Bacilli Culture November 03, 2019 completed Relevant Diagnostic Tests and/or Laboratory Data Laboratory Results Test Date/Time Result Interpretation Reference Range Result Comment Performing Site White Blood Count May 13, 2020 10:44am 6.8 10e3/uL 4.45-10.71 [facility], [address] [place] [id number] White Blood Count February 01, 2020 9:10am 6.6 10e3/uL 4.45-10.71 [facility], [address] [place] [address] White Blood Count January 21, 2020 11:59am 5.7 10e3/uL 4.45-10.71 [facility], [address] [place] [address] [id number] Red Blood Count May 13, 2020 10:44am 3.95 10e6/uL 4.20-5.40 [facility], [address] [place] [address] Red Blood Count February 01, 2020 9:10am 3.94 10e6/uL 4.20-5.40 [facility], [address] [place] [address] Red Blood Count January 21, 2020 11:59am 3.76 10e6/uL 4.20-5.40 [facility], [address] [place] [address] [id number] Hemoglobin May 13, 2020 10:44am 12.7 g/dL 10.7-15.4 [facility], [address] [place] [address] [id number] Hemoglobin February 01, 2020 9:10am 12.7 g/dL 10.7-15.4 [facility], [address] [place] [address] Hemoglobin January 21, 2020 11:59am 12.2 g/dL 10.7-15.4 [facility], [address] [place] [address] [id number] Hematocrit May 13, 2020 10:44am 41.4 % 37-47 [facility], [address] [place] [address] Hematocrit February 01, 2020 9:10am 39.0 % 37-47 [facility], [address] [place] [address] Hematocrit January 21, 2020 11:59am 37.4 % 3747 [facility], [address] [place] [address] Mean Corpuscular Volume May 10:44am 104.8 fl 80-96 [facility], [address] [place] [address] Mean Corpuscular Volume January 31, 020 9:10am 99.0 fl 80-96 [facility], [address] [place] [address] Mean Corpuscular Volume January 20, 2 020 11:59am 99.5 fl 80-96 [facility], [address] [place] [address] Mean Corpuscular Hemoglobin May 13, 2020 10:44am 32.2 pg 27-31 [facility], [address] [place] [id number] Mean Corpuscular Hemoglobin January 9:10am 32.2 pg 27-31 [facility], [address] [place] [address] Mean Corpuscular Hemoglobin January h2019 11:59am 32.4 pg 27-31 [facility], [address] [place] [address] [id number] Mean Corpuscular Hemoglobin Concent May 13, 2020 10:44am 30.7 g/dl 33-37 [facility], [address] [place] [address] Mean Corpuscular Hemoglobin Concent February 01, 2020 9:10am 32.6 g/dl [facility], [address] [place] [address] Mean Corpuscular Hemoglobin Concent January 21, 2020 11:59am 32.6 g/dl [address] [place] [address] LABORATORY, [address] [place] [address] Red Cell Distribution Width May 13, 2020 10:44am 14 % 1115 [facility], [address] [place] [address] Red Cell Distribution Width January 9:10am 13 % 11-15 [facility], [address] [place] [address] Red Cell Distribution Width January 11:59am 14 % 1115 [facility], [address] [place] [address] Platelet Count May 13, 2020 10:44am 288 10e3/ul 130-472 [facility], [address] [place] [address] Platelet Count February 01, 2020 9:10am 282 10e3/ul 130-472 [facility], [address] [place] [address] Platelet Count January 21, 2020 11:59am 269 10e3/ul 130-472 [facility], [address] [place] [address] Mean Platelet Volume May 13 10:44am 9.3 fl 9.1-13.1 [facility], [address] [place] [address] Mean Platelet Volume February 01, 2020 9:10a m 8.9 fl 9.1-13.1 [facility], [address] [place] [address] Mean Platelet Volume January 21, 2020 11:59am 8.9 fl 9.1-13.1 [facility], [address] [place] [address] Neutrophils (%) (Auto) May 13, 2020 10:44am 60.1 % [address] [facility], [address] [place] [address] Neutrophils (%) (Auto) January 31 9:10am 51.3 % [address] [facility], [address] [place] [address] Neutrophils (%) (Auto) January 20 11:59am 48.5 % [address] [place] [address] LABORATORY, [address] [place] [address] 81259 Absolute Neutrophil May 13 10:44am 4.1 # 1.7-7.6 [facility], [address] [place] [address] 28099 Absolute Neutrophil February 01, 2020 9:10am 3.4 # 1.7-7.6 [facility], [address] [place] [address] 64120 Absolute Neutrophil January 21, 2020 11:59a m 2.7 # 1.7-7.6 [facility], [address] [place] [address] 48986 Lymphocytes (%) (Auto) May 13, 2020 10:44am 28.9 % 14-46 [facility], [address] [place] [address] 05290 Lymphocytes (%) (Auto) January 31 9:10am 36.3 % 14-46 [facility], [address] [place] [address] 40426 Lymphocytes (%) (Auto) January 20 11:59am 40.0 % 14-46 [facility], [address] [place] [address] 74054 Lymphocytes # (Auto) May 13 10:44am 2.0 # 0.6-4.6 [facility], [address] [place] [address] 90924 Lymphocytes # (Auto) February 01, 2020 9:10a m 2.4 # 0.6-4.6 [facility], [address] [place] [address] 05221 Lymphocytes # (Auto) January 21, 2020 11:59am 2.3 # 0.6-4.6 [facility], [address] [place] [address] 82608 Monocytes (%) (Auto) May 13 10:44am 7.9 % 4-12 [facility], [address] [place] [address] 28684 Monocytes (%) (Auto) February 01, 2020 9:10a m 8.4 % 4-12 [facility], [address] [place] [address] 51157 Monocytes (%) (Auto) January 21, 2020 11:59am 7.6 % 4-12 [facility], [address] [place] [address] 09052 Monocytes # May 13, 2020 10:44am 0.5 # 0.2-1.2 [facility], [address] [place] [address] 53309 Monocytes # February 01, 2020 9:10am 0.6 # 0.2-1.2 [facility], [address] [place] [address] 12393 Monocytes # January 21, 2020 11:59am 0.4 # 0.2-1.2 [facility], [address] [place] [address] 94661 Eosinophils (%) (Auto) May 13, 2020 10:44am 2.0 % 0-7 [facility], [address] [place] [address] 77159 Eosinophils (%) (Auto) January 31 9:10am 2.4 % 0-7 [facility], [address] [place] [address] 61754 Eosinophils (%) (Auto) January 20 11:59am 2.3 % 0-7 [facility], [address] [place] [address] 54546 Absolute Eosinophils (CBC) May 13, 2020 10:44am 0.1 # 0.0-0.5 [facility], [address] [place] [address] 33476 Absolute Eosinophils (CBC) January 9:10am 0.2 # 0.0-0.5 [facility], [address] [place] [address] 18289 Absolute Eosinophils (CBC) January 11:59am 0.1 # 0.0-0.5 [facility], [address] [place] [address] 21063 Basophils (%) (Auto) May 13 10:44am 0.7 % 0.4-1.3 [facility], [address] [place] [address] 45290 Basophils (%) (Auto) February 01, 2020 9:10a m 0.8 % 0.4-1.3 [facility], [address] [place] [address] 20179 Basophils (%) (Auto) January 21, 2020 11:59am 1.1 % 0.4-1.3 [facility], [address] [place] [address] 85062 Absolute Basophils (CBC) May 10:44am 0.1 # 0.0-0.2 [facility], [address] [place] [address] 61676 Absolute Basophils (CBC) February 01, 2020 9:10am 0.1 # 0.0-0.2 [facility], [address] [place] [address] Absolute Basophils (CBC) January 21, 2020 11:59am 0.1 # 0.0-0.2 [facility], [address] [place] [address] 20756 Immature Granulocyte % (Auto) Novem2019 10:44am 0.4 % 0-2 [facility], [address] [place] [address] Immature Granulocyte % (Auto) January 092019 9:10am 0.8 % 0-2 [facility], [address] [place] [address] Immature Granulocyte % (Auto) January 082019 11:59am 0.5 % 0-2 [facility], [address] [place] [address] Absolute Immature Granulocyte (auto May 13, 2020 10:44am 0.0 # 0-0.1 [facility], [address] [place] [address] Absolute Immature Granulocyte (auto February 01, 2020 9:10am 0.1 # 0-0.1 [facility], [address] [place] [address] Absolute Immature Granulocyte (auto January 21, 2020 11:59am 0.0 # 0-0.1 [facility], [address] [place] [address] Add Manual Differential May 10:44am No [facility], [address] [place] [address] Add Manual Differential January 31 9:10am No [facility], [address] [place] [address] Add Manual Differential January 20 11:59am No [facility], [address] [place] [address] Blood Urea Nitrogen May 13 10:44am 13 mg/dL 04-02 [facility], [address] [place] [address] Blood Urea Nitrogen February 01, 2020 9:10am 12 mg/dL 04-02 [facility], [address] [place] [address] Blood Urea Nitrogen January 21, 2020 11:59a m 12 mg/dL 04-02 [facility], [address] [place] [address] Sodium Level May 13, 2020 10:44am 141 mmol/L 132-146 [facility], [address] [place] [address] 89138 Sodium Level February 01, 2020 9:10am 142 mmol/L 132-146 [facility], [address] [place] [address] 17022 Sodium Level January 21, 2020 11:59am 142 mmol/L 132-146 [facility], [address] [place] [address] 42339 Potassium Level May 13, 2020 10:44am 5.1 mmol/L 3.5-5.5 [facility], [address] [place] [address] 09476 Potassium Level February 01, 2020 9:10am 4.6 mmol/L 3.5-5.5 [facility], [address] [place] [address] 46362 Potassium Level January 21, 2020 11:59am 4.2 mmol/L 3.5-5.5 [facility], [address] [place] [address] 74300 Chloride Level May 13, 2020 10:44am 112 mmol/l 99-109 [facility], [address] [place] [address] 28181 Chloride Level February 01, 2020 9:10am 114 mmol/l 99-109 [facility], [address] [place] [address] 40183 Chloride Level January 21, 2020 11:59am 112 mmol/l 99-109 [facility], [address] [place] [address] 07472 Carbon Dioxide Level May 13 10:44am 22 mmol/l 20-31 [facility], [address] [place] [address] 47992 Carbon Dioxide Level February 01, 2020 9:10a m 22 mmol/l 20-31 [facility], [address] [place] [address] 70284 Carbon Dioxide Level January 21, 2020 11:59am 21 mmol/l 20-31 [facility], [address] [place] [address] 91190 Anion Gap May 13, 2020 10:44am 12 mmol/l 8-16 [facility], [address] [place] [address] 65602 Anion Gap February 01, 2020 9:10am 11 mmol/l 8-16 [facility], [address] [place] [address] 79319 Anion Gap January 21, 2020 11:59am 13 mmol/l 8-16 [facility], [address] [place] [address] 99688 Glucose Level May 13, 2020 10:44am 80 mg/dL 74-106 [facility], [address] [place] [address] Glucose Level February 01, 2020 9:10am 93 mg/dL 74-106 [facility], [address] [place] [address] Glucose Level January 21, 2020 11:59am 99 mg/dL 74-106 [facility], [address] [place] [address] Creatinine May 13, 2020 10:44am 0.9 mg/dL 0.5-1.1 [facility], [address] [place] [address] Creatinine February 01, 2020 9:10am 0.9 mg/dL 0.5-1.1 [facility], [address] [place] [address] Creatinine January 21, 2020 11:59am 0.8 mg/dL 0.5-1.1 [facility], [address] [place] [address] Glomerular Filtration Rate Calc Nov 2019 10:44am Greater than 60 ml/min ABOVE 60 [facility], [address] [place] [address] Glomerular Filtration Rate Calc February 01, 2020 9:10am Greater than 60 ml/min ABOVE 60 [facility], [address] [place] [address] Glomerular Filtration Rate Calc January 21, 2020 11:59am Greater than 60 ml/min ABOVE 60 [facility], [address] [place] [address] Alanine Aminotransferase (ALT/SGPT) May 13, 2020 10:44am 22 U/L 49 [facility], [address] [place] [address] Alanine Aminotransferase (ALT/SGPT) February 01, 2020 9:10am 20 U/L 49 [facility], [address] [place] [address] Alanine Aminotransferase (ALT/SGPT) January 21, 2020 11:59am 21 U/L 49 [facility], [address] [place] [address] Aspartate Amino Transf (AST/SGOT) [facility] 10:44am 19 U/L 0-33 [facility], [address] [place] [address] Aspartate Amino Transf (AST/SGOT) [facility] 2019 9:10am 13 U/L 0-33 [facility], [address] [place] [address] 17040 Aspartate Amino Transf (AST/SGOT) Ju ly 2019 11:59am 15 U/L 0-33 [facility], [address] [place] [address] 96043 Alkaline Phosphatase May 13 10:44am 132 U/L 45-129 [facility], [address] [place] [address] Alkaline Phosphatase February 01, 2020 9:10a m 119 U/L 45-129 [facility], [address] [place] [address] 98770 Alkaline Phosphatase January 21, 2020 11:59am 122 U/L 45-129 [facility], [address] [place] [address] 77221 Amylase Level February 01, 2020 9:10am 58 U/L 30-118 [facility], [address] [place] [address] 32581 Lipase February 01, 2020 9:10am 147 U/L 73-393 [facility], [address] [place] [address] 29425 Calcium Level May 13, 2020 10:44am 9.2 mg/dL 8.5-10.1 [facility], [address] [place] [address] 57742 Calcium Level February 01, 2020 9:10am 8.6 mg/dL 8.5-10.1 [facility], [address] [place] [address] Calcium Level January 21, 2020 11:59am 8.8 mg/dL 8.5-10.1 [facility], [address] [place] [address] Total Bilirubin May 13, 2020 10:44am 0.4 mg/dL 0.3-1.2 [facility], [address] [place] [address] Total Bilirubin February 01, 2020 9:10am 0.2 mg/dL 0.3-1.2 [facility], [address] [place] [address] Total Bilirubin January 21, 2020 11:59am 0.2 mg/dL 0.3-1.2 [facility], [address] [place] [address] Direct Bilirubin February 01, 2020 9:10am 0.1 mg/dL 0.0-0.2 [facility], [address] [place] [address] 29790 Albumin May 13, 2020 10:44am 3.5 g/dL 3.2-4.8 [facility], [address] [place] [address] 67934 Albumin February 01, 2020 9:10am 3.4 g/dL 3.2-4.8 [facility], [address] [place] [address] Albumin January 21, 2020 11:59am 3.4 g/dL 3.2-4.8 [facility], [address] [place] [address] Serum Total Protein May 13 10:44am 7.5 g/dL 5.7-8.2 [facility], [address] [place] [address] Serum Total Protein February 01, 2020 9:10am 7.3 g/dL 5.7-8.2 [facility], [address] [place] [address] Serum Total Protein January 21, 2020 11:59a m 7.2 g/dL 5.7-8.2 [facility], [address] [place] [address] Triglycerides Level May 13 10:44am 134 mg/dL 0-150 [facility], [address] [place] [address] Triglycerides Level January 21, 2020 11:59a m 107 mg/dL 0-150 [facility], [address] [place] [address] Cholesterol Level May 13, 2020 10:44am 169 mg/dL 120-200 [facility], [address] [place] [address] Cholesterol Level January 21, 2020 11:59am 175 mg/dL 120-200 [facility], [address] [place] [address] HDL Cholesterol May 13, 2020 10:44am 85 mg/dL HDL Less than 40 mg/dL: Major risk for CHDHDL Greater than 59 mg/dL: Low risk for CHD [facility], [address] [place] [address] HDL Cholesterol January 21, 2020 11:59am 82 mg/dL HDL Less than 40 mg/dL: Major risk for CHDHDL Greater than 59 mg/dL: Low risk for CHD [facility], [address] [place] [address] LDL Cholesterol, Calculated May 13, 2020 10:44am 58 mg/dL 0-100 [facility], [address] [place] [address] LDL Cholesterol, Calculated January 11:59am 72 mg/dL 0-100 [facility], [address] [facility] [address] Stool Helicobacter pylori Antigen Ju 2019 11:45am Negative Negative Performed at: RN - [facility] [address] [place], [place] [id number] Director: Constanza Saxena MD, Phone: [phone] [facility] , [address] [facility] [address] Immunoglobulin G February 01, 2020 9:10am 1159 mg/dL Performed at: RN - [facility] [address] [id number] Director: Constanza Saxena MD, Phone: [phone] [facility] , [address] [facility] [address] Vitamin D 25-Hydroxy May 13 10:44am 60 ng/mL Vitamin D Status 25-OH Vitamin D:Deficiency: <20 ng/mLInsufficiency: 20 - 29 ng/mLOptimal: > or = 30 ng/mLFor 25-OH Vitamin D testing on patients onD2-supplementation and patients for whom quantitationof D2 and D3 fractions is required, the QuestAssureD(TM)25- OH VIT D, (D2,D3), LC/MS/MS is recommended: ordercode 47543 (patients >2yrs).See Note 1Note 1For additional information, please refer [email or web address]/[email or web address](This link is being provided for informational/educational purposes only.)THIS TEST WAS PERFORMED AT:[facility] [address]AHSAN CANSECO MD [facility] Vitamin D 25-Hydroxy January 21, 2020 11:59am 51.6 ng/mL Vitamin D deficiency has been defined by the [place] of[place]icine and an Endocrine Society practice guideline as alevel of serum 25-OH vitamin D less than 20 ng/mL (1,2).The Endocrine Society went on to further define vitamin Dinsufficiency as a level between 21 and 29 ng/mL (2).1. IOM ([place] of Medicine). 2010. Dietary reference intakes for calcium and D. [place]: The National Academies Press.2. Deena MF, Theodore [place], Valerie ROMERO, et al. Evaluation, treatment, and prevention of vitamin D deficiency: an Endocrine Society clinical practice guideline. JCEM. 2010; 96(7):1911-30.Performed at: [facility] [place] [address] [id number] Director: Constanza Saxena MD, Phone: [phone] [place] , [address] [facility] [address] Coronavirus (COVID-19)(PCR) October 11:50am Not detected Not Detec mimi Testing was performed using the bárbara(R) SARS-CoV-2 test.This test was developed and its performance characteristicsdetermined by [employer]. This test has not beenFDA cleared or approved. This test has been [facility] under an Emergency Use Authorization (EUA). This testis only authorized for the duration of time the declarationthat circumstances exist justifying the authorization ofthe emergency use of in vitro diagnostic tests fordetection of SARS-CoV-2 virus and/or diagnosis of COVID-19infection under section 564(b)(1) of the Act, 21 U.S.C.360bbb-3(b)(1), unless the authorization is terminated orrevoked sooner.Performed at: [facility] [place] [address] [id number] Director: Constanza Saxena MD, Phone: [phone] [place] , [address] [place] [address] Hemoglobin A1c May 13, 2020 10:44am 6.6 % 4.0-6.0 The following ranges may be used for interpretation of results: HGBA1C degree of glucose control: Greater than 8%: Action Suggested * Less than 7%: Goal of Diabetic Therapy Less than 6%: Normal Factors such as duration of diabetes, adherence to therapyand the age of the patient should also be considered inassessing the degree of blood glucose control. * High risk of developing vice president regulatory complications such asretinopathy, nephropathy, neuropathy, cardiopathy, etc. Some danger of hypoglycemic reaction in Type I diabetics.Some glucose intolerant individuals and "Sub Clinical"diabetics may demonstrate HGBA1C levels in this area. [facility], [address] [place] [address] 60590 Hemoglobin A1c January 21, 2020 11:59am 7.2 % 4.0-6.0 Th e following ranges may be used for interpretation of results: HGBA1C degree of glucose control: Greater than 8%: Action Suggested * Less than 7%: Goal of Diabetic Therapy Less than 6%: Normal Factors such as duration of diabetes, adherence to therapyand the age of the patient should also be considered inassessing the degree of blood glucose control. * High risk of developing residential complications such asretinopathy, nephropathy, neuropathy, cardiopathy, etc. Some danger of hypoglycemic reaction in Type I diabetics.Some glucose intolerant individuals and "Sub Clinical"diabetics may demonstrate HGBA1C levels in this area. [facility], [address] [place] [address]7821 Estimated Average Glucose (eAG) [facility] 2019 10:44am 143 mg/dl An A1C of 7% - the goal of diabetic ther apy - is equivalentto an EAG of 154 mg/dl. [facility], [address] [place] [address] 31521 Estimated Average Glucose (eAG) January 21, 2020 11:59am 160 mg/dl An A1C of 7% - the goal of diabetic therapy - is equivalentto an EAG of 154 mg/dl. [facility], [address] [place] [address] 88585 Microbiology Results Procedure Source Result Collection Date/Time Result Date/Time Result Comment Performing Site Stool Occult Blood (TYLER) Stool April 16, 2020 12:19pm April 12:54pm [address] [address] SARS Antigen (LFIA) Nasal BinaxNow Covid-19 Ag positive July 24, 2020 4:53pm July 24, 2020 6:41pm [facility], [address] [place] [address] 60199 AFB Specimen Processing Tissue Sputu m, Expectorate sputum November 03, 2019 8:06am November 04, 2019 3:06pm [facility] , [address] [facility] [address] Acid Fast Bacilli Smear Sputum, Expe ctorate sputum November 03, 2019 8:06am November 04, 2019 3:06pm [facility], [address] [facility] [address] Acid Fast Bacilli Culture Sputum, Ex pectorate sputum November 03, 2019 8:06am December 18, 2019 3:07pm [facility], [address] [facility] [address] Diagnostic Imaging Reports Report Dictated Date/Time Dictated By Status Radiology Report January 31, 2020 9:06am Manjinder Walters MD completed [facility] [address] [place] [address] [phone] NAME SEX PT STATUS ACCOUNT NUMBER ISIDRA CONNOR REG REF [id number] ORDERING PHYSICIAN LOCATION MEDICAL RECORD NO. Yunier Mendoza [id number] ATTENDING PHYSICIAN DATE OF DATE OF EXAM/TIME Doctor Provided,No Family 1960 01/31/20 0 TYPE / EXAM US Abdomen complete REASON FOR EXAM ABD PAIN, EPIGASTRIC TECHNIQUE: Transabdominal transducer was used to obtain multiple real-time axial and sagittal grayscale and color-flow Doppler images of the abdomen. COMPARISON US: None available. FINDINGS: PANCREAS: The pancreatic head and body is normal in appearance. The pancreatic tail is not well-visualized secondary to overlying bowel gas. LIVER: The liver is normal in echogenicity. The hepatic contour is smooth, without nodularity. There are no hepatic cysts or masses. GALLBLADDER: Surgically absent The common duct is physiologically dilated measuring 6.7 mm. RIGHT KIDNEY: The right kidney measures 11.4 cm in length, and is normal in echotexture. There are no renal cysts, masses, or shadowing calculi. There is no sonographic evidence of hydronephrosis. LEFT KIDNEY: The left kidney measures 15.0r cm in length, and is normal in echotexture. There are no renal cysts, masses, or shadowing calculi. There is no sonographic evidence of hydronephrosis. SPLEEN: The spleen measures 8.3 cm in length, and is normal in echogenicity and echotexture. There are no abnormalities of the splenic parenchyma. VASCULATURE: The visualized portions of the inferior vena cava and aorta are unremarkable. PERITONEUM: There is no ascites. IMPRESSION 1. Remote cholecystectomy. 2. No biliary ductal dilatation. 3. Grossly normal-appearing liver. 4. No renal calculus or hydronephrosis on either side.: Unremarkable abdominal sonogram. Reported By Manjinder Walters MD on 01/31/20905 Signed By Manjinder Walters MD on 01/31/20908 Date Time CC: Manjinder Walters MD; No Family PHYS Provided Techn: FREST Trans Dt/Tm: Trans by: DT Prt Dt/Tm: : Total DLP = 0.00 mGy-cm : Total Radiation Dose = 0.0000 mSv Lifetime Dose: 25.9895 mSv Radiology Report January 31, 2020 2:42pm Manjinder Walters MD completed [place] [address] [place] [id number] [phone] NAME SEX PT STATUS ACCOUNT NUMBER ISIDRA CONNOR REG REF [id number] ORDERING PHYSICIAN LOCATION MEDICAL RECORD NO. Yunier Mendoza [id number] ATTENDING PHYSICIAN DATE OF DATE OF EXAM/TIME Doctor Provided,No Family 1960 01/31/20 7 TYPE / EXAM Xray UGI w/air, w/o KUB-DBL CO REASON FOR EXAM ABD PAIN, EPIGASTRIC UPPER GI SERIES TECHNIQUE: Double-contrast examination was performed with barium. COMPARISON: None FINDINGS: Preliminary radiograph: Normal. Swallowing: Normal. Esophagus: Somewhat distended throughout demonstrating a normal mucosal pattern. Gastroesophageal reflux: Gastroesophageal reflux. Appreciated. Stomach: Normal. Duodenum: Normal. Other findings: Small hiatal hernia seen. IMPRESSION: 1. Small hiatal hernia seen. Gastroesophageal reflux appreciated. 2. Somewhat distended esophagus, throughout. 3. No irregular mucosal pattern of the distal esophagus. 4. Normal fold pattern of the stomach. 5. Normal duodenal C-sweep. Reported By Manjinder Walters MD on 01/31/20 1442 Signed By Manjinder Walters MD on 01/31/20 1444 Date Time CC: Manjinder Walters MD; No Family PHYS Provided Techn: RADTC Trans Dt/Tm: Trans by: DT Prt Dt/Tm: [id number]: Total DLP = 0.00 mGy-cm Fluoroscopy Time (in secs): 200 Health Concerns Health Concerns may be documented in an alternate section. Advance Directives Advance Directive Response Recorded Date/Time Advanced Directive Yes J 2019 8:20am MOLST No April 14 8:40am Advance Directives on File or in chart? No April 14, 2020 8:40am Does Patient have a DNR? No April 16, 2020 1:23pm Healthcare Proxy Yes Apr 1:23pm Health Care Proxy Name Yunier Connor December 31, 2019 8:20am Health Care Proxy Phone Number [phone] December 31, 2019 8:20am Living Will No April 162019 1:23pm Chief Complaint and Reason for Visit Chief Complaint Call First Appt R05 Anxiety Anxiety follow-up A31.0,J44.9 Diabetes follow-up E78.5,E11.9,E55.9 PAIN R10.13,D83.9 Pre-op visit (general surgery) Annual Physical R19.5 E78.2,R19.5,E11.8,E55.9,A31.0,K92.1 Diabetes Telemed Visit Telemed Visit Reason for Visit Mixed stress and ur ge urinary incontinence Depression with anxiety GERD (gastroesophageal reflux disease) Mixed stress and urge urinary incontinence Mycobacterium avium infection DMITRI on CPAP Type 2 diabetes mellitus with complications Heme positive stool Allergic rhinitis Depression with anxiety Hypertension, essential 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 Heme positive stool Allergic rhinitis Depression with anxiety Hypertension, essential Mild vitamin D deficiency Mixed hyperlipidemia Type 2 diabetes mellitus with complications Cough Shortness of breath Wheezes Encounters Encounter Location(s) Ar rival/Admit Date Discharge/Depart Date Provider(s) Departed Physician/Provider Office Visit -Extended [facility] October 12, 2019 11:49am October 12, 2019 11:55am Meng Vasquez MD Registered Referred -Laboratory October 12, 2019 1:03pm Meng Vasquez MD Departed Physician/Provider Office Visit -[facility] October 15, 2019 9:48am October 15, 2019 12:04pm Lindsay Chapman Departed Physician/Provider Office Visit -[facility] October 29, 2019 12:49pm October 29, 2019 2:49pm Lindsay Chapman Registered Referred -Laboratory November 03, 2019 7:28am Dania Benites MD Departed Physician/Provider Office Visit -[facility] December 24, 2019 12:47pm December 24, 2019 2:32pm Lindsay Chapman Registered Referred -Laboratory January 21, 2020 11:49am Lindsay Chapman Registered Referred -Ultrasound January 31, 2020 7:39am KEVIN Almanza Registered Referred -Laboratory February 01, 2020 8:55am Deniz Fields MD Departed Physician/Provider Office Visit -[facility] March 21, 2020 2:15pm Septembe 2019 10:59pm Lindsay Chapman Departed Physician/Provider Office Visit -[facility] April 14, 2020 7:50am April 9:36am Lindsay Chapman Registered Referred -Lab Drop Off April 16, 2020 11:18am Lindsay Fields one Registered Referred -Laboratory May 13, 2020 10:29am Dania Benites MD Departed Physician/Provider Office Visit -[facility] May 30, 2020 3:21pm May 30, 2020 11:59pm Lindsay Chapman Departed Physician/Provider Office Visit -[facility] July 24, 2020 11:35am July 24, 2020 12:15pm Zara Sparks Registered Referred -Laboratory July 24, 2020 5:49pm Zara Sparks Departed Physician/Provider Office Visit -[facility] July 29, 2020 9:16am July 29, 2020 2:35pm Lindsay Chapman Recent Diagnosis Onset Date Mixed stress and urge urinary incontinence Depression with anxiety GERD (gastroesophageal reflux disease) Mixed stress and urge urinary incontinence Mycobacterium avium infection DMITRI on CPAP Type 2 diabetes mellitus with complications Heme positive stool Allergic rhinitis Depression with anxiety Hypertension, essential 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 Heme positive stool Allergic rhinitis Depression with anxiety Hypertension, essential Mild vitamin D deficiency Mixed hyperlipidemia Type 2 diabetes mellitus with complications Cough Shortness of breath Wheezes July, Assessments Diagnosis Onset Date Res olution Status Mixed stress and urge urinary incontinence chronic Depression with anxiety chronic GERD (gastroesophageal reflux disease) chronic Mixed stress and urge urinary incontinence chronic Mycobacterium avium infection chronic DMITRI on CPAP chronic Type 2 diabetes mellitus with complications chronic Heme positive stool acute Allergic rhinitis chronic Depression with anxiety chronic Hypertension, essential chronic Mycobacterium avium infection chronic Type 2 diabetes mellitus with complications chronic Heme positive stool acute Allergic rhinitis chronic Depression with anxiety chronic Hypertension, essential chronic Mild vitamin D deficiency chronic Mixed hyperlipidemia chronic Type 2 diabetes mellitus with complications chronic Cough acute Shortness of breath acute Wheezes July, acute Family History Relationship Condition A ge at Onset Recorded Date/Time Not Specified Carcinoma of colon Unknown Not Specified Hepatocellular carcinoma Unknown Not Specified Diabetes mellitus Unknown Hyperlipidemia Unknown Hypothyroidism Unknown Carcinoma of breast 30 Not Specified Carcinoma of breast 50 Functional Status No Functional Status information available Goals Goals may be documented in an alternate section. Immunizations Immunization Event Date Not Given Reason Dose Number Wheel And Caster Repairer Lot Number Vaccine Information Statement (VIS) Deta il pneumococcal conjugate PCV 13 Octobe r 2019 [id number] influenza vaccine, inactivated Septe mber 2008 influenza vaccine, inactivated Octob er 2010 influenza vaccine, inactivated Octob er 2010 influenza vaccine, inactivated Novem wicho 2011 influenza vaccine, inactivated Novem wicho 2011 influenza vaccine, inactivated Octob er 2012 influenza vaccine, inactivated Novem wicho 2013 [id number] influenza vaccine, inactivated Octob er 2014 [id number] influenza vaccine, inactivated Octob er 2015 influenza vaccine, inactivated Novem wicho 2018 [id number] influenza vaccine, inactivated Septe mber 2019 pneumococcal polysaccharide PPV23 vaccine September 02, 2015 [id number] tetanus, diphtheria, acell pertussis 7yrs &up March 11, 2009 tetanus, diphtheria, acell pertussis 7yrs &up December 24, 2019 [id number] Mental Status No Mental Status Information Available Medical Equipment No Medical Equipment Information available Insurance Providers Guarantor ISIDRA CONNOR Address [address] [place] [address] Contact Info. Home Phone: Payer Policy Id Coverage Id Subscriber's Name Subscriber Id Effective Date Expiration Date BC/BS [facility] [id number] ISIDRA Price RENATA [id number] 2017 MEDICAID Self Pay Self N/A [facility] MEDICAID [id number] ISIDRA Thrasher RENATA [id number] Plan of Treatment Exacerbation of her asthma due to COVID-19. Patient is 1 week into her illness with COVID-19. We discussed on the phone that this is often the time people who are high risk like herself start to significantly worsen and need hospitalization. If her oxygen drops below 90 or she puts it another difficult night like she did last night I want her to get to the emergency room. She is already being treated with steroids for her asthma. She is doing DuoNeb 4 times a day. She is on Incruse at baseline so at this point really is double dosing on the anticholinergic. Mingo nuñez is doing Advair and budesonide so to inhaled steroids in addition to her systemic dexamethasone . 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 There really is not anyth ing else as an outpatient we can do. If she worsens she is going to need to be admitted for IV dexamethasone and remdesivir. She has myasthenia gravis. This could flare and affect her breathi ng muscles. I discussed all this with her. She understands. I had her put her on the phone and talk to him briefly as well. He voices understanding. Tentatively another telemedicine visit tomorrow. Otherwise if she worsens either today during the day or tonight to the ER for ad mission. It may even be best to had to [facility] since all of the specialist that manage her mul tiple problems are available at [facility]. It matters less where she goes and just if she worsens that she gets to the ER. For long as I know her she always has some anxiety and depression but she talked about her granddaughter visiting talked about getting ready for her granddaughter's weddin g they are keeping it small she is looking forward to the holidays he always has some family stress but it sounds like it is fairly minimal at the present Stable and she does spill microalbumin so we have her on renal protection with e nalapril diet and exercise discussed Stable on present dose recheck in 3 months Stable on statin preferably keep LDL under 70 but at least under 100 Since her last visit she has had no further hypoglycemia. She has been back to see her route jumper partly because of her gastroparesis and partly because of hem e positive stool. I do not have his report but she tells me he is not planning to scope her or thao e anything and we will just see her again in the spring. Her A1c is improved significantly it is back in normal range at 6.6. Given her history of lows I do want her now that she is much better con trolled to monitor for lows she denies anything down under 80 range but she is to monitor closely c hecking 3 times a day for now we will leave her current insulin dose as it is she is due for diabe tic foot exam but since she did not come in we will do another visit. She says she did go back to the eye doctor so even though we do not have a report says she is up-to-date. She had her catarac t surgery and it went well so she is obviously had several recent eye exams and we just need to g et the report her overall control is improved significantly discussed fall prevention discussed sk in care discussed foot care Patient generally follows with Dr. 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 she woul d probably be scheduled for upper and lower scopes but that is not his plan according to the p atient will send for his note she says he is just going to monitor her blood counts and see her back in the spring, her reflux symptoms breakthrough even on Nexium but Nexium she feels the best I am h oping to get this note from GI in terms of her hiatal hernia gastroparesis reflux and since recent ly her Nexium has been denied 3 times may be the gastroenterology note will help us get it approve d currently it has been denied patient is aware only other option would be for her to buy it out of pocket which she really cannot afford She does follow with service station helper so she can certainly discuss her breakthrough sym ptoms with the service station helper but I think they are likely due to the fact she tried to come off Flon ase does not really like using a nose spray but within about a week of stopping it her symptoms flar ed I encouraged her to go back on it and keep taking her Singulair and Arcenio continues to take IV IG and injections at home weekly for her immunodeficiency she did get her flu shot Patient has been acutely ill often and not gotten her booster of Prevnar 13 she is feeling pretty well today so were going to give her that booster which she definitely can benef it from given her MAC and recurrent pneumonia. She did get flu shot last month even though it is not logged into her immunization record. She has had falls in the past and is at risk she has both walker cane and scooter currently is walking without any aid of ambulation and feels her strengt h and balance are doing better but she does have neuropathy so we did discuss fall prevention. Mingo nuñez is due for bone density in the spring which I ordered. Her screening baseline bone density 4-1/ 2 years ago was normal. She does not need Pap smear anymore as she had complete full hysterecto my with BSO actually prophylactically because of family history of breast and ovarian cancer. She is high risk for breast cancer and is due for annual mammogram. She has double nipple on the rig ht single nipple on the left but no change in her breast exam she does do breast exam monthly. She was extremely ill most of last year with MAC pneumonia and exacerbation of asthma she was too sick to schedule colonoscopy. She did have a heme positive stool. I referred her to Dr. Guerra. He decided to upper scope her and she did have some upper scope findings as documented includi ng gastroparesis. However lower scope was not done patient is doing significantly better now from breathing point of view she will finish up her MAC year of treatment with triple antibiotics next m [facility]. I want her to do another stool card. If this 1 is positive I think she should return to GI an d reconsider colonoscopy. She is agreeable. She is up-to-date on Pneumovax Zostavax and jus t earlier this year got a Boostrix. She is due for diabetic care next month. She did have diabetic eye exam even though we do not have records yet she had it in January prior to proceeding with ca taract surgery last month we just need to get the records from her eye doctor. She has extensive ca re team. She sees [facility] for her ophthalmology care and recent cataract surgery. She sees Dr. andrade and Dr. Ambriz for treatment of her MAC and management of her recurrent pneumonia an d persistent exacerbation of asthma. She sees Dr. Kenney [facility] in [place] for her common variable immune deficiency syndrome and still gets weekly injections of I VIG. They also monitor her PFTs and breathing function and her IgG levels. She follows with [facility] and they monitor her gastroparesis and upper and lower scopes she did not have lower scopes last year again because of her acute illness. She follows with Dr. Wilkinson for her myasthen ia gravis. He also monitors and manages her sleep apnea she is compliant with her CPAP. I think th at about summarizes her care team other than cardiology care will [facility] last echo was December 2018 when s he was hospitalized at [facility] we are calling for that echo result. I manage her hyperlip idemia her diabetes her vitamin D deficiency her anxiety and depression and she is due for diabetes care next month so have ordered labs she also sees ENT in [place] and has had sinus surgery I felisha l plan on seeing her back next month she also periodically sees orthopedist for orthopedic care. Rec onciled her medications reviewed her allergies reviewed her health maintenance she did not h ave any other complaints or concerns see her back next month.Visit 1 hour This patient although optimized still is a category 4 ASA surgical risk-she has significantly improved her asthma it has for the past 2 to 3 years persistently flared with mu ltiple hospital admissions sometimes monthly with huge 60 mg doses chronically of prednisone erlin ng required in order to control her symptoms however approximately 9 months ago it was finally discov kim that the issue was Mycobacterium avium. Dr. Ambriz her trigonometry teacher and Hans have worked to gether and her acute multi lobar infiltrates have resolved, she still has some underlying bronchiecta sis as seen on her last CAT scan of the chest in July 2019 but her acute infiltrates have resolv ed. Her dyspnea on exertion is significantly improved. She used to have wheezing and shortness of breath at rest. Her PFTs have improved to normal. She is gradually improving from a pulmonary point of view. She will use her Incruse and her Advair the morning of the cataract surgery but I would s till be very cautious even with sedation and air on the side of caution and give her a full u nit dose DuoNeb just prior to any sedation as her airways are still hyperreactive and anesthesia of a ny sort even light sedation might still induce bronchospasm. She is chronically immunocompromised and at high risk for infection both because she has baseline common variable immunodeficiency and bec ause she is on methotrexate to treat her myasthenia gravis. Her service station helper does have her on wee kly IVIG injections at home. Her last immunoglobulin levels were much improved so that should signi ficantly lessen her risk of infection. She is on low-dose of methotrexate to treat her myasthenia w hich is managed by Dr. Wilkinson. She also takes Mestinon. Her myasthenia has in the past been very s ymptomatic but is now fairly stable. She should take her dose of Mestinon the morning of the proc edure before she leaves for the hospital. She is on a host of medications I have reviewed them a nd reconciled them with her. She has hand written instructions on what to take, I reviewed these w ith her several times and she voiced understanding, definitely needs to take her 3 antibiotics f or the MAC, definitely the Mestinon and her INCruz and Advair, these are really the most imp ortant things. No short acting insulin. The night before half of her usual long-acting insulin 32 units. She has gastroparesis hiatal hernia reflux and does have history of microaspiration she sleeps with a Craftmatic bed at at least 45 degrees aspiration precautions definitely should b e adhered to she should be treated with IV PPI on formulary. At home she takes Nexium given the multitude of other necessary medicines it would be best if anesthesia gives her IV Protonix IV omep razole what ever is formulary and definitely maintain reflux precautions as she is high risk for asp iration from her reflux and gastroparesis. Narcotic anesthesia such as fentanyl should be avoide d because of her sleep apnea. I instructed her to bring her sleep apnea gear so that it can be u sed postoperatively as she is waking up from her sedation. She takes Xanax as needed and tolerates low-dose benzodiazepine so I suspect she would tolerate low-dose Versed for sedation. EK G was obtained and has minor T wave abnormality unchanged from previous when T wave abnormality was first noticed she was worked up with stress test and cardiac cath which was completely clear no ac diana changes noted no new labs were obtained as her labs in mid January were actually much improved from previous A1c was 7.2 electrolytes were stable lipid panel is stable renal function was normal at 12 a nd 0.9 GFR greater than 60 sodium 142 potassium 4.6. She will repeat routine labs before [facility] with me in 6 weeks her hemoglobin was 12 and 39 and her white count was 6.6 blood pre ssure is stable at 132/62 heart rate 59 O2 sat 98 weight the same as last visit 256. I discussed w ith her that skipping her statin 1 day will not cause her any harm. Enalapril she can take l ater in the day when she is home from the procedure. She can have blood sugar monitored at the [facility] and given Humalog coverage as needed she is to be n.p.o. she is not to take any short acti ng. Insulin the morning of the procedure at home the anesthesia doctor will cover her as needed. She does have anxiety and depression. I told her she could take her Zoloft if she wants to bu t explained she only gets a sip of water she already has 4 other pills she needs to take I would sugg est that even though she normally takes her Zoloft in the morning. She just take it when she gets ba ck home. I did recommend she bring her CPAP with her answered all of her questions and concerns to the best of my ability. Explained to her although her multitude of medical issues make her hig h risk this is a very brief limited procedure most likely it will go well without complications. At this point I do not think there is anything we can do to further optimize her. She is very symp tomatic she is very anxious to proceed with both cataract repairs. today was supposed to be diabetes care but once again she did not get blood wor k I told her last time to please get blood work before today's visit. I did review her blood suga r logs. I did increase her daytime dose of insulin. She has blood sugars as low as 80 in the morning so I will leave her nighttime dose the same. However later in the day blood sugars are up towards 250 so we will increase her morning dose and have her get her fasting labs which are way o verdue. She does follow with neurology for her neuropathy and her myasthenia gravis. She does fo llow with GI for her reflux and gastroparesis complications.Full diabetes care next time Nasal congestion, Intermittent cough negative COVID test earlier this month some of it is likely her baseline asthma and allergies she is following with infectious disease who has b ack 3- slides for her MAC and she is on triple baseline antibiotic for her MAC, she also follows w dioni her service station helper pulmonary Dr. Ambriz and gets weekly IVIG injections and her variable immune def iciency has improved. IgG levels have gone back to near normal range. She is on long-term azithromycin as part of her MAC regimen she is on both Flonase and Advair as well as loratadine but s he is on immune suppression with methotrexate Overdue for routine labs Diet exerciseWeight loss all discussed stable on enalapril She is seen by Dr. Anderson 1 year ago she had upper endoscopy she is due to fo llow-up with Dr. Franco next month and they can discuss timing of upper and lower scopes she reynold es any melena or hematochezia her GI symptoms have been stable less bloating less indigestion le ss nausea no vomiting but she did have a heme positive stool about a year ago at the time was too sick to have lower scopes but should revisit it when she sees GI next month ,,,..Patient has multiple issues including myasthenia gravis requiring chronic i mmunosuppression with methotrexate severe persistent asthma diabetes which she is long overdue fo r management since she has not done blood work however first step in getting her cleared for catara ct surgery is for infectious disease to clear her although she still has 9 months of therapy her i nfectious disease doctor has done first set of acid-fast stains and sputum is clear they do not se e any Mycobacterium avium so she feels although she has months yet of antibiotic triple regimen she can schedule cataract from infectious disease point of view patient still has to get blood wo rk which she is months overdue she will still need to get an EKG but I will try to work to get t hings so she can get cleared if she does her blood work and returns for diabetes care in the near fut ure .She actually feels she is doing pretty well on current low-dose Zoloft we can i ncrease the dose but she feels it is currently sufficient She should do diabetic labs lipid labs vitamin D sometime in the next month or 2 and if she does not want to come in at least schedule a follow-up phone visit for diabetes care jairoo uraged her to get checking blood sugars at least morning and night again hopefully she will have [facility] to do this once the Zoloft kicks in I will complete her paperwork as soon as it is forwarded to me she does not care to try medicine she has tried some oxybutynin and Vesicare in the past made her mouth dry made visio n blurry and did not really help she prefers to just use the undergarments Patient has phoned the office and left messages a couple times recently in the and has been crying. She last had called both her trigonometry teacher and her infect ious disease doctor leaving message for them that she felt she was getting sick. She has chronic MA C and it is felt that is the reason for her previous chronic severe exacerbations of pneumonia an d frequent hospitalizations. She also has chronic Enterobacter. I personally spoke to Dr. Andrade as I was not sure if she needed to be screened for COVID as she did have worsening cough and worsening shortness of breath. Patient was told by her office staff that as soon as she got a chanc e she would be getting back to the patient. Glenis was so anxious about her symptoms that she ca lled our office several times. Called infectious disease office several times called her pulmon ologist several times.Hans did return her call did put her on additional antibiotic and predni sone. Eloy that if she did get COVID she would rapidly deteriorate and did not feel she needed any screening test. However given the number of tearful phone call she made very obvious her anxiety and depression are out of control. She is on just low-dose Zoloft. She had not been taking any Xa nax until recently. She does have myasthenia but it is felt to be under very good control. Given he r MAC pneumonia she was switched from CellCept to low-dose methotrexate. Will increase Zoloft to 10 0 mg. We will give her a new prescription for Xanax. Recommend she call family members even though she cannot see them. Recommend she do meditation and prayer and other relaxation techniques to try to manage her anxiety.Hans told me she actually thinks her breathing is the best that it has been in probably a year. Offered her counseling she does talk to her brother who is a anodizer other than talking to him on the phone she is not interested in doing any formal counseling referral she w ill increase the Zoloft to 100 will plan on doing a 2 to 4-week follow-up visit to make sure thin gs are improving. Concerning for possible COVID19 with cough and shortness of breath. Swab for COVID19 today. Public health out to discuss quarantine. Recheck if increasing shortness of breath, fever, or increasing cough. To ER if symptoms severe. Severe anxiety over COVID some better with Xanax and increased dose of Zoloft de pression screen still 12 declines referral to mental health Strict compliance with CPAP advised she does have follow-up in about 2 weeks perico Wilkinson. She also says seasonal allergies are flaring she is out of her loratadine so I sent refill on that She had recent prescription for antibiotic and prednisone. She has morning sput um which is yellow. She did course of prednisone and additional antibiotic on top of her triple anti biotic regimen she is on for months for her MAC pneumonia. She says it really did not change thing s. She completed it and did not follow-up with Dr. Andrade so I encouraged her to call her and let her know how she is doing. She does not sound bad on the phone. She has not checked any peak flows her home O2 sats have been in the upper 90s. She is felt well enough that she can go for short w alks outdoors for 5 to 10 minutes so this suggests that she is doing better she has follow-up appoin tments with her service station helper in about 2 weeks and several specialty appointments coming up over the next couple months. Home blood sugars are averaging between 98 and 250. Suggest she go up to 65 uni ts of Lantus. She is taking the generic basalgar. She needs to schedule an actual diabetes appoin tment and do blood work and come in in person she says she will think this over she is not sure if she wants to or not we talked about the lab draw a room she is checking her blood sugars 2-3 times d aily at home and taking coverage She wears undergarments and incontinence gets worse with cough she said her unde rgarments did come from the [facility] She says things are status quo she is doing nebulizer 4 times a day. Recent cou rse of prednisone did not really help she does not think she is worse she is really about the same feeling well enough she can go for short walks has not checked peak flows but reports her oxygen is up in the high 90s off home oxygen She just recently increase Zoloft. She is still taking Xanax 2-3 times daily an d it does help. We discussed that if anxiety is still high we can increase Zoloft again but she is only been on it 2 weeks so I would just leave it at the 100 mg dose. She is trying to go for shor t walks outside her anxiety over the COVID still remains high which is partly why she did not do blo od work. We discussed the new blood draw room at the hospital that she could pull up to and come in contact with only person who would draw her blood Breakthrough indigestion almost every day. Should be taking Nexium breakfast an d supper and will add substitute for her Zantac at bedtime. Insurance will cover Pepcid Future Tests Future scheduled test information is unavailable Pending Tests Pending diagnostic test information is unavailable Future Visits Future appointment information is unavailable Referrals to Other Providers Referral information is unavailable Future Procedures Future procedure information is unavailable Future Medications Future medication information is unavailable Patient Instructions Type 2 Diabetes in Adults: New Diagnosis (GEN) Type 2 Diabetes in Adults: New Diagnosis (GEN) Social History Smoking Status Status Date of Observation Never smoker April 14, 2020 11:25 am Observation Status Date of Observation Not December 31, 2019 Observation Status Observation Response Chun e of Response Smoking Status Never smoker April 14, 2020 10:25am Alcohol Use No December 8:20am Substance Use No December 302019 8:20am Inhalant Use No December 8:20am Assigned Sex Female Vital Signs Vital Reading Result Ref erence Range Collection Date/Time Body Temperature 97.9 [degF] 97.6-99.5 October 12, 2019 1:59pm Oxygen saturation by Pulse oximetry 97 % 95- 100 October 12, 2019 1:59pm Height 63 [in_i] December 24, 2019 1:50pm Weight 254.00 [lb_av] December 24, 2019 1:50pm Body Temperature 98.3 [degF] 97.6-99.5 December 24, 2019 1:50pm Heart Rate 68 /min 60-100 December 24, 2019 1:50pm Respiratory rate 16 /min 12-December 24, 2019 1:50pm Oxygen saturation by Pulse oximetry 98 % 95- 100 December 24, 2019 1:50pm BP Systolic 134 mm[Hg] December 24, 2019 1:50pm BP Diastolic 78 mm[Hg] December 24, 2019 1:50pm BMI (Body Mass Index) 44.9 kg/m2 December 24, 2019 1:50pm Height 63 [in_i] March 21, 2020 3:49pm Weight 256.00 [lb_av] March 21, 2020 3:49pm Body Temperature 98.2 [degF] 97.6-99.5 March 21, 2020 3:49pm Heart Rate 59 /min 60-100 March 21, 2020 3:49pm Respiratory rate 18 /min -March 21, 2020 3:49pm Oxygen saturation by Pulse oximetry 98 % 95- 100 March 21, 2020 3:49pm BP Systolic 132 mm[Hg] March 21, 2020 3:49pm BP Diastolic 62 mm[Hg] March 21, 2020 3:49pm BMI (Body Mass Index) 45.3 kg/m2 March 21, 2020 3:49pm Height 63 [in_i] April 14, 2020 9:22am Weight 252.00 [lb_av] April 14, 2020 9:22am Body Temperature 98.0 [degF] 97.6-99.5 April 14, 2020 9:22am Heart Rate 60 /min 60-100 April 14, 2020 9:22am Respiratory rate 16 /min -April 14, 2020 9:22am Oxygen saturation by Pulse oximetry 99 % 95- 100 April 14, 2020 9:22am BP Systolic 128 mm[Hg] April 14, 2020 9:22am BP Diastolic 62 mm[Hg] April 14, 2020 9:22am BMI (Body Mass Index) 44.6 kg/m2 April 14, 2020 9:22am
--- OUTSIDE RECORDS SUMMARY | 2020-07-30 19:20 | CCD | Continuity of Care Document ---
Author Author [facility] Organization [facility] Address [address] [place] [address] Phone Support Name Relationship Address Phone Lindsay Chapman PRS [facility] [place] [address] Meng Vasquez PRS [address] [place] [address] [place] [address] Doctor Provided, Family No PRS Unknown Unava ilable Yunier Mendoza PRS [facility] [place] [address] Deniz Fields PRS [address] [place] [address] [place] [address] Zara Sparks PRS [address] [place] [address] Allergies, Adverse Reactions, Alerts Allergen Type Severity [...] (Vitamin D2) 50,000 unit c apsule Discontinued 20255 UNIT PO 1 Time Per Week 4 November 08, 2018 10:20pm December 26 9 6:28pm Gabapentin Discontinued 300 MG PO Three times a day November 08, 2018 10:21pm June 18, 2019 1:49pm Pyridostigmine [place] (Mestinon) 60 mg tablet Active 60 MG [...] snack Afluria Qd 2019-(3yr up)(PF) (flu vac [id number] 36mos up(PF)) Discontinued 60 MCG IM 1 [...] D2) (Vitamin D2) 50,000 UNITS capsule Discontinued 26592 UNITS PO WE@0900 April 07, 2016 8:22am [...] 2016 8:28am April 09, 2016 2:21pm Pyridostigmine [place] Discontinued 60 MG PO Four Times a [...] Times Per Day March 30, 2018 1:14pm [facility] 10[facility]00am Prednisone Discontinued 10 MG [...] July 14, 2019 8:27am Blood Sugar Diagnostic (ubitus Verio Test Strips) st rip Discontinued STRIP [...] 6:28pm October 15, 2019 12:11pm Reference #: [id number] Ranitidine Hcl Discontinued 300 MG PO At Bedtime December 26, 2018 6:28pm January 13, 2019 9:00pm Montelukast Discontinued 10 MG PO At Bedtime December 26, 2018 6:28pm October 29, 2019 2:09pm Ergocalciferol (Vitamin D2) (Vitamin D2) 50,000 unit c apsule Discontinued 45208 UNIT PO 1 Time Per Week December [...] 8:32am Ergocalciferol (Vitamin D2) (Vitamin D2) Discontinued 96742 UNITS PO 3XWEEKLY October 18, 2011 6:47pm [...] 9:32am Ergocalciferol (Vitamin D2) (Vitamin D2) Discontinued 17442 UNITS PO 3XWEEKLY 14 January 18, 2012 [...] 8 :35am September 08, 2012 8:37am Pyridostigmine [place] (Mestinon) 60 mg tablet Discontinued 1 TAB PO Four Times a Day 0 February 24, 2012 8:44am April 07, 2016 8:31am [place]-3 Fatty Acids-Fish Oil (Fish Oil) 340-1,000 mg [...] 1:59pm Ergocalciferol (Vitamin D2) (Vitamin D2) Discontinued 51723 UNITS PO 1XMONTHLY March 14, 2013 1:57pm [...] 2013 5:21pm Lancets (Freestyle Lancets) 28 gauge [facility] Discontinued 1 EACH MC Once Per Day [...] 2013 8:44am Lancets (Freestyle Lancets) [facility] Dis[facility] EACH MC Once Per [...] 2014 8:50pm Ergocalciferol (Vitamin D2) (Vitamin D2) 57148 UNIT ca psule Discontinued 2 CAPS PO [...] 2014 10:14am Ergocalciferol (Vitamin D2) (Vitamin D2) 42900 UNIT ca psule Discontinued 2 CAPS PO 2X MONTHLY 2 February 05, 2014 12:28pm February 05, 2 014 4:52pm Ergocalciferol (Vitamin D2) (Vitamin D2) 07284 UNIT ca psule Discontinued 1 CAPS PO [...] 21, 2014 12:14pm December 8:05am Flu Vacc [id number](4yr,Up)(Pf) (Fluvirin 6703-9095 Syringe) 45 MCG/0.5 ML syringe Discontinued 0.5 [...] 2014 1:29pm Ergocalciferol (Vitamin D2) (Vitamin D2) 68979 UNIT ca psule Discontinued 1 CAPS PO [...] 2015 8:27am Ergocalciferol (Vitamin D2) (Vitamin D2) 76483 UNIT ca psule Discontinued 1 CAP PO 2 Times Per Week 8 February 04, 2015 4:56pm February 04 15 5:36pm Triamcinolone Acetonide Discontinued 1 GM TP 2 Times Per Day 60 February 04, 2015 5:3 6pm May 28, 2015 12:44pm 0.1% Ergocalciferol (Vitamin D2) (Vitamin D2) 99841 UNIT ca psule Discontinued 1 CAP PO [...] 2015 6:04pm Ergocalciferol (Vitamin D2) (Vitamin D2) 19363 UNIT ca psule Discontinued 1 CAP PO [...] 2016 6:55pm Ergocalciferol (Vitamin D2) (Vitamin D2) 11697 UNIT ca psule Discontinued 1 CAP PO [...] 2016 5:39pm Ergocalciferol (Vitamin D2) (Vitamin D2) 61883 UNIT ca psule Discontinued 1 CAP PO [...] D2) (Vitamin D2) 50,000 UNITS capsule Discontinued 28752 UNITS PO 1 Time Per Week 4 April 14, 2016 8:59am October 04, 2016 6:46am Triamcinolone Acetonide Discontinued 1 APPLIC TP 2 Times Per Da y 80 May 18, 2016 1:01pm November 08, 2016 2:34pm APPLY UNDER BOT [facility] Fluticasone Furoate-Vilanterol (Breo Ell ipta 100-25 [...] D2) (Vitamin D2) 50,000 UNITS capsule Discontinued 42273 UNITS PO 1 Time Per Week October [...] 3:02pm May 15, 2017 10:46pm 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 Nitrofurantoin Monohyd/M-Cryst (Macrobid 100 Mg Capsule) 100 [...] 12, 2017 4:40pm hold while taking cipro [id number] Atorvastatin (Lipitor) 20 MG tablet Discontinued 20 [...] D2) (Vitamin D2) 50,000 UNITS capsule Discontinued 51116 UNITS PO 1 Time Per Week March [...] D2) (Vitamin D2) 50,000 UNITS capsule Discontinued 08275 UNITS PO 1 Time Per Week June 30, 2017 10:03am November 09, 2017 3:27pm [place]-3 Acid Ethyl Esters (Lovaza*) 1 GM capsule [...] 26, 2017 12:51pm November 09, 2017 3:24pm [id number] dthen 10mgdaily OR DIRECTED Esomeprazole Magnesium (Nexium) [...] D2) (Vitamin D2) 50,000 UNITS capsule Discontinued 62281 UNITS PO 1 Time Per Week November 09, 2017 3:27pm July 21, 2 019 8:54am Loratadine Discontinued 10 MG PO Once Per Day November 09, 2017 3:27pm J anuary 2018 8:54am Topiramate (Topamax) 50 MG tablet Di scontinued 50 MG PO O nce Per Day November 09, 2017 3:27p m December 21, 2017 10:26am [place]-3 Acid Ethyl Esters (Lovaza*) 1 GM capsule [...] 10:31am November 08, 2018 7:46am Reference #: [id number] Alprazolam (Xanax) 0.25 MG tablet Di scontinued 0.25 MG PO Three times a day PRN 60 April 05, 2018 10:31am December 26, 2018 6:28pm Reference #: [id number] Ropinirole Discontinued 1 MG PO 2 Times Per Day 75 April 17, 2018 3:36pm October 22, 2018 5:19pm AND 0.5 TAB AT 2PM. 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 Aspirin (Ecotrin) 81 MG tablet,delayed release (DR/EC) [...] D2) (Vitamin D2) 50,000 UNITS capsule Discontinued 32628 UNITS PO 1 Time Per Week October 22, 2018 8:25pm November 08 9 10:45am Ergocalciferol (Vitamin D2) (Vitamin D2) 50,000 UNITS capsule Discontinued 80617 UNITS PO 1 Time Per Week October [...] December 01, 2018 3:09pm Blood Sugar Diagnostic (Mezmerizuch Verio Test Strips) st rip Discontinued 0 .ROUTE .MEDSUPPLY December 01, 2018 3:59pm December 26 9 6:28pm Use 1 test strip to test 4x per day Levofloxacin (Levaquin) 500 mg tablet Discontinued 500 MG PO daily 10 December 18, 2018 10: 02am December 19, 2018 1:33pm Ergocalciferol (Vitamin D2) (Vitamin D2) 50,000 unit c apsule Discontinued 03064 UNIT PO 1 Time Per Week January [...] Sugar Diagnostic (Onetouch Verio) strip Discontinued STRIP .[facility] January 26, 2019 4:36pm January 26, 2019 [...] D2) 1,250 mcg (50,000 unit) capsule Active 89000 UNIT PO 1 Time Per Week July [...] PRN October 15, 2019 12:10pm Reference #: [id number] Epinephrine (Epipen) 0.3 mg/0.3 mL auto-injector Active [...] from pharmacy,currently med unavailable in all strengths.[facility] Atorvastatin Discontinued 40 MG PO Every Evening [...] TABLET BY MOUTH EVERY DAY Enalapril Maleate Active 2.5 MG PO Once Per Day July 22, 2020 9:19am Problems Active Problems Medical Problem Onset Date [...] Pneumonia Resolved Procedures Procedure Date Performed Status Stool Occult Blood (TYLER) April 16, 2020 [...] May 13, 2020 10:44am 6.8 10e3/uL 4.45-10.71 [facility], [address] [place] [address] 45284 White Blood Count February 01, 2020 9:10am 6.6 10e3/uL 4.45-10.71 [facility], [address] [place] [address] White Blood Count January 21, 2020 11:59am 5.7 10e3/uL 4.45-10.71 [facility], [address] [place] [address] Red Blood Count May 13, 2020 10:44am 3.95 10e6/uL 4.20-5.40 [facility], [address] [place] [address] Red Blood Count February 01, 2020 9:10am 3.94 10e6/uL 4.20-5.40 [facility], [address] [place] [address] Red Blood Count January 21, 2020 11:59am 3.76 10e6/uL 4.20-5.40 [facility], [address] [place] [address] Hemoglobin May 13, 2020 10:44am 12.7 g/dL 10.7-15.4 [facility], [address] [place] [address] 74611 Hemoglobin February 01, 2020 9:10am 12.7 g/dL 10.7-15.4 [facility], [address] [place] [address] Hemoglobin January 21, 2020 11:59am 12.2 g/dL 10.7-15.4 [facility], [address] [place] [address] 63635 Hematocrit May 13, 2020 10:44am 41.4 % 3747 [facility], [address] [place] [address] 73648 Hematocrit February 01, 2020 9:10am 39.0 % 3747 [facility], [address] [place] [address] 77015 Hematocrit January 21, 2020 11:59am 37.4 % 3747 [facility], [address] [place] [address] 51872 Mean Corpuscular Volume May 10:44am 104.8 fl 8096 [facility], [address] [place] [address] Mean Corpuscular Volume January 31, 020 9:10am [address] [facility], [address] [place] [address] Mean Corpuscular Volume January 20, 2 020 11:59am 99.[address] [place] [address] LABORATORY, [address] [place] [address] 69882 Mean Corpuscular Hemoglobin May 13, 2020 10:44am 32.2 pg 27-31 [facility], [address] [place] [address] Mean Corpuscular Hemoglobin January 9:10am 32.2 pg 27-31 [facility], [address] [place] [address] Mean Corpuscular Hemoglobin January 11:59am 32.4 pg 27-31 [facility], [address] [place] [address] 98026 Mean Corpuscular Hemoglobin Concent May 13, 2020 10:44am 30.7 g/dl 3337 [facility], [address] [place] [address] Mean Corpuscular Hemoglobin Concent February 01, 2020 9:10am 32.6 g/dl 3337 [facility], [address] [place] [address] 06878 Mean Corpuscular Hemoglobin Concent January 21, 2020 11:59am 32.6 g/dl 3337 [facility], [address] [place] [address] Red Cell Distribution Width May 13, 2020 10:44am 14 % 11-15 [facility], [address] [place] [address] Red Cell Distribution Width January 9:10am 13 % 11-15 [facility], [address] [place] [address] Red Cell Distribution Width January 11:59am 14 % 11-15 [facility], [address] [place] [address] Platelet Count May 13, 2020 10:44am 288 10e3/ul 130-472 [facility], [address] [place] [address] Platelet Count February 01, 2020 9:10am 282 10e3/ul 130-472 [facility], [address] [place] [address] Platelet Count January 21, 2020 11:59am 269 10e3/ul 130-472 [facility], [address] [place] [address] Mean Platelet Volume May 13 10:44am 9.3 fl 9.1-13.1 [facility], [address] [place] [address] Mean Platelet Volume February 01, 2020 9:10a m 8.9 fl 9.1-13.1 [facility], [address] [place] [address] Mean Platelet Volume January 21, 2020 11:59am 8.9 fl 9.1-13.1 [facility], [address] [place] [address] Neutrophils (%) (Auto) May 13, 2020 10:44am 60.1 % [address] [facility], [address] [place] [address] Neutrophils (%) (Auto) January 31 9:10am 51.3 % [address] [facility], [address] [place] [address] Neutrophils (%) (Auto) January 20 11:59am 48.5 % [address] [facility], [address] [place] [address] Absolute Neutrophil May 13 10:44am 4.1 # 1.7-7.6 [facility], [address] [place] [address] Absolute Neutrophil February 01, 2020 9:10am 3.4 # 1.7-7.6 [facility], [address] [place] [address] 73032 Absolute Neutrophil January 21, 2020 11:59a m 2.7 # 1.7-7.6 [facility], [address] [place] [address] 74795 Lymphocytes (%) (Auto) May 13, 2020 10:44am 28.9 % 14-46 [facility], [address] [place] [address] 11999 Lymphocytes (%) (Auto) January 31 9:10am 36.3 % 14-46 [facility], [address] [place] [address] 44549 Lymphocytes (%) (Auto) January 20 11:59am 40.0 % 14-46 [facility], [address] [place] [address] 96822 Lymphocytes # (Auto) May 13 10:44am 2.0 # 0.6-4.6 [facility], [address] [place] [address] 22504 Lymphocytes # (Auto) February 01, 2020 9:10a m 2.4 # 0.6-4.6 [facility], [address] [place] [address] 07174 Lymphocytes # (Auto) January 21, 2020 11:59am 2.3 # 0.6-4.6 [facility], [address] [place] [address] 80319 Monocytes (%) (Auto) May 13 10:44am 7.9 % 4-12 [facility], [address] [place] [address] 14500 Monocytes (%) (Auto) February 01, 2020 9:10a m 8.4 % 4-12 [facility], [address] [place] [address] 25494 Monocytes (%) (Auto) January 21, 2020 11:59am 7.6 % 4-12 [facility], [address] [place] [address] 26962 Monocytes # May 13, 2020 10:44am 0.5 # 0.2-1.2 [facility], [address] [place] [address] 41787 Monocytes # February 01, 2020 9:10am 0.6 # 0.2-1.2 [facility], [address] [place] [address] 49160 Monocytes # January 21, 2020 11:59am 0.4 # 0.2-1.2 [facility], [address] [place] [address] 81739 Eosinophils (%) (Auto) May 13, 2020 10:44am 2.0 % 0-7 [facility], [address] [place] [address] Eosinophils (%) (Auto) January 31 9:10am 2.4 % 0-7 [facility], [address] [place] [address] Eosinophils (%) (Auto) January 20 11:59am 2.3 % 0-7 [facility], [address] [place] [address] Absolute Eosinophils (CBC) May 13, 2020 10:44am 0.1 # 0.0-0.5 [facility], [address] [place] [address] Absolute Eosinophils (CBC) January 9:10am 0.2 # 0.0-0.5 [facility], [address] [place] [address] 55016 Absolute Eosinophils (CBC) January 11:59am 0.1 # 0.0-0.5 [facility], [address] [place] [address] 76709 Basophils (%) (Auto) May 13 10:44am 0.7 % 0.4-1.3 [facility], [address] [place] [address] 93029 Basophils (%) (Auto) February 01, 2020 9:10a m 0.8 % 0.4-1.3 [facility], [address] [place] [address] Basophils (%) (Auto) January 21, 2020 11:59am 1.1 % 0.4-1.3 [facility], [address] [place] [address] Absolute Basophils (CBC) May 10:44am 0.1 # 0.0-0.2 [facility], [address] [place] [address] Absolute Basophils (CBC) February 01, 2020 9:10am 0.1 # 0.0-0.2 [facility], [address] [place] [address] Absolute Basophils (CBC) January 21, 2020 11:59am 0.1 # 0.0-0.2 [facility], [address] [place] [address] 43101 Immature Granulocyte % (Auto) Novemb 2019 10:44am 0.4 % 0-2 [facility], [address] [place] [address] Immature Granulocyte % (Auto) January 092019 9:10am 0.8 % 0-2 [facility], [address] [place] [address] Immature Granulocyte % (Auto) January 082019 11:59am 0.5 % 0-2 [facility], [address] [place] [address] Absolute Immature Granulocyte (auto May 13, 2020 10:44am 0.0 # 0-0.1 [facility], [address] [place] [address] Absolute Immature Granulocyte (auto February 01, 2020 9:10am 0.1 # 0-0.1 [facility], [address] [place] [address] 64226 Absolute Immature Granulocyte (auto January 21, 2020 11:59am 0.0 # 0-0.1 [facility], [address] [place] [address] 70183 Add Manual Differential May 10:44am No [facility], [address] [place] [address] Add Manual Differential January 31 9:10am No [facility], [address] [place] [address] Add Manual Differential January 20 11:59am No [facility], [address] [place] [address] Blood Urea Nitrogen May 13 10:44am 13 mg/dL 04-02 [facility], [address] [place] [address] Blood Urea Nitrogen February 01, 2020 9:10am 12 mg/dL 04-02 [facility], [address] [place] [address] Blood Urea Nitrogen January 21, 2020 11:59a m 12 mg/dL 04-02 [facility], [address] [place] [address] Sodium Level May 13, 2020 10:44am 141 mmol/L 132-146 [facility], [address] [place] [address] Sodium Level February 01, 2020 9:10am 142 mmol/L 132-146 [facility], [address] [place] [address] Sodium Level January 21, 2020 11:59am 142 mmol/L 132-146 [facility], [address] [place] [address] 05195 Potassium Level May 13, 2020 10:44am 5.1 mmol/L 3.5-5.5 [facility], [address] [place] [address] 45148 Potassium Level February 01, 2020 9:10am 4.6 mmol/L 3.5-5.5 [facility], [address] [place] [address] 55276 Potassium Level January 21, 2020 11:59am 4.2 mmol/L 3.5-5.5 [facility], [address] [place] [address] 82660 Chloride Level May 13, 2020 10:44am 112 mmol/l 99-109 [facility], [address] [place] [address] 01118 Chloride Level February 01, 2020 9:10am 114 mmol/l 99-109 [facility], [address] [place] [address] 01693 Chloride Level January 21, 2020 11:59am 112 mmol/l 99-109 [facility], [address] [place] [address] 94496 Carbon Dioxide Level May 13 10:44am 22 mmol/l 20-31 [facility], [address] [place] [address] 57680 Carbon Dioxide Level February 01, 2020 9:10a m 22 mmol/l 20-31 [facility], [address] [place] [address] 25994 Carbon Dioxide Level January 21, 2020 11:59am 21 mmol/l 20-31 [facility], [address] [place] [address] 89272 Anion Gap May 13, 2020 10:44am 12 mmol/l 8-16 [facility], [address] [place] [address] 52512 Anion Gap February 01, 2020 9:10am 11 mmol/l 8-16 [facility], [address] [place] [address] 91097 Anion Gap January 21, 2020 11:59am 13 mmol/l 8-16 [facility], [address] [place] [address] 34134 Glucose Level May 13, 2020 10:44am 80 mg/dL 74-106 [facility], [address] [place] [address] 51796 Glucose Level February 01, 2020 9:10am 93 mg/dL 74-106 [facility], [address] [place] [address] 18719 Glucose Level January 21, 2020 11:59am 99 mg/dL 74-106 [facility], [address] [place] [address] Creatinine May 13, 2020 10:44am 0.9 mg/dL 0.5-1.1 [facility], [address] [place] [address] Creatinine February 01, 2020 9:10am 0.9 mg/dL 0.5-1.1 [facility], [address] [place] [address] Creatinine January 21, 2020 11:59am 0.8 mg/dL 0.5-1.1 [facility], [address] [place] [address] Glomerular Filtration Rate Calc 2019 10:44am Greater than 60 ml/min ABOVE 60 [facility], [address] [place] [address] Glomerular Filtration Rate Calc February 01, 2020 9:10am Greater than 60 ml/min ABOVE 60 [facility], [address] [place] [address] Glomerular Filtration Rate Calc January 21, 2020 11:59am Greater than 60 ml/min ABOVE 60 [facility], [address] [place] [address] Alanine Aminotransferase (ALT/SGPT) May 13, 2020 10:44am 22 U/L 1049 [facility], [address] [place] [address] Alanine Aminotransferase (ALT/SGPT) February 01, 2020 9:10am 20 U/L 10-49 [facility], [address] [place] [address] Alanine Aminotransferase (ALT/SGPT) January 21, 2020 11:59am 21 U/L 10-49 [facility], [address] [place] [address] Aspartate Amino Transf (AST/SGOT) No vember 2019 10:44am 19 U/L 0-33 [facility], [address] [place] [address] Aspartate Amino Transf (AST/SGOT) Ju ly 2019 9:10am 13 U/L 0-33 [facility], [address] [place] [address] Aspartate Amino Transf (AST/SGOT) Ju ly 2019 11:59am 15 U/L 0-33 [facility], [address] [place] [address] Alkaline Phosphatase May 13 10:44am 132 U/L 45-129 [facility], [address] [place] [address] 38060 Alkaline Phosphatase February 01, 2020 9:10a m 119 U/L 45-129 [facility], [address] [place] [address] 52158 Alkaline Phosphatase January 21, 2020 11:59am 122 U/L 45-129 [facility], [address] [place] [address] 00502 Amylase Level February 01, 2020 9:10am 58 U/L 30-118 [facility], [address] [place] [address] 81532 Lipase February 01, 2020 9:10am 147 U/L 73-393 [facility], [address] [place] [address] 49031 Calcium Level May 13, 2020 10:44am 9.2 mg/dL 8.5-10.1 [facility], [address] [place] [address] 88959 Calcium Level February 01, 2020 9:10am 8.6 mg/dL 8.5-10.1 [facility], [address] [place] [address] Calcium Level January 21, 2020 11:59am 8.8 mg/dL 8.5-10.1 [facility], [address] [place] [address] 33126 Total Bilirubin May 13, 2020 10:44am 0.4 mg/dL 0.3-1.2 [facility], [address] [place] [address] Total Bilirubin February 01, 2020 9:10am 0.2 mg/dL 0.3-1.2 [facility], [address] [place] [address] Total Bilirubin January 21, 2020 11:59am 0.2 mg/dL 0.3-1.2 [facility], [address] [place] [address] 17685 Direct Bilirubin February 01, 2020 9:10am 0.1 mg/dL 0.0-0.2 [facility], [address] [place] [address] 86009 Albumin May 13, 2020 10:44am 3.5 g/dL 3.2-4.8 [facility], [address] [place] [address] 12070 Albumin February 01, 2020 9:10am 3.4 g/dL 3.2-4.8 [facility], [address] [place] [address] 46382 Albumin January 21, 2020 11:59am 3.4 g/dL 3.2-4.8 [facility], [address] [place] [address] Serum Total Protein May 13 10:44am 7.5 g/dL 5.7-8.2 [facility], [address] [place] [address] Serum Total Protein February 01, 2020 9:10am 7.3 g/dL 5.7-8.2 [facility], [address] [place] [address] Serum Total Protein January 21, 2020 11:59a m 7.2 g/dL 5.7-8.2 [facility], [address] [place] [address] Triglycerides Level May 13 10:44am 134 mg/dL 0-150 [facility], [address] [place] [address] Triglycerides Level January 21, 2020 11:59a m 107 mg/dL 0-150 [facility], [address] [place] [address] Cholesterol Level May 13, 2020 10:44am 169 mg/dL 120-200 [facility], [address] [place] [address] Cholesterol Level January 21, 2020 11:59am 175 mg/dL 120-200 [facility], [address] [place] [address] HDL Cholesterol May 13, 2020 10:44am 85 mg/dL HDL Less than 40 mg/dL: Major risk for CHDHDL Greater than 59 mg/dL: Low risk for CHD [facility], [address] [place] [address] HDL Cholesterol January 21, 2020 11:59am 82 mg/dL HDL Less than 40 mg/dL: Major risk for CHDHDL Greater than 59 mg/dL: Low risk for CHD [facility], [address] [place] [address] LDL Cholesterol, Calculated May 13, 2020 10:44am 58 mg/dL 0-100 [facility], [address] [place] [address] LDL Cholesterol, Calculated January 11:59am 72 mg/dL 0-100 [facility], [address] [place] [address] Stool Helicobacter pylori Antigen Ju 2019 11:45am Negative Negative Performed at: [facility] [id number] Director: Constanza Saxena MD, Phone: [phone] [facility] , [address] [facility] [id number] Immunoglobulin G February 01, 2020 9:10am 1159 mg/dL Performed at: - [facility] [address] [id number] Director: Constanza Saxena MD, Phone: [phone] [facility] , [address] [facility] [address] Vitamin D 25-Hydroxy May 13 10:44am 60 ng/mL Vitamin D Status 25-OH Vitamin D:Deficiency: <20 ng/mLInsufficiency: 20 - 29 ng/mLOptimal: > or = 30 ng/mLFor 25-OH Vitamin D testing on patients onD2-supplementation and patients for whom quantitationof D2 and D3 fractions is required, the QuestAssureD(TM)25- OH VIT D, (D2,D3), LC/MS/MS is recommended: ordercode 03462 (patients >2yrs).See Note 1Note 1For additional information, please refer tohttp://education.Talenta/faq/HTO559(This link is being provided for informational/educational purposes only.)THIS TEST WAS PERFORMED AT:[facility] [address]AHSAN CANSECO MD [facility] Vitamin D 25-Hydroxy January 21, 2020 11:59am 51.6 ng/mL Vitamin D deficiency has been defined by the [place] of[employer] and an Endocrine Society practice guideline as alevel of serum 25-OH vitamin D less than 20 ng/mL (1,2).The Endocrine Society went on to further define vitamin Dinsufficiency as a level between 21 and 29 ng/mL (2).1. IOM ([place] of Medicine). 2010. Dietary reference intakes for calcium and D. [place]: The National Academies Press.2. Deena SANCHEZ, Theodore CORTEZ, Valerie ROMERO, et al. Evaluation, treatment, and prevention of vitamin D deficiency: an Endocrine Society clinical practice guideline. JCEM. 2010; 96(7):1911-30.Performed at: RN - [facility] [id number] Director: Constanza Saxena MD, Phone: [phone] [facility] , [address] [facility] [address] Coronavirus (COVID-19)(PCR) October 11:50am Not detected Not Detec mimi Testing was performed using the bárbara(R) SARS-CoV-2 test.This test was developed and its performance characteristicsdetermined by [facility]. This test has not beenFDA cleared or approved. This test has been authorized by[facility] under an Emergency Use Authorization (EUA). This testis only authorized for the duration of time the declarationthat circumstances exist justifying the authorization ofthe emergency use of in vitro diagnostic tests fordetection of SARS-CoV-2 virus and/or diagnosis of COVID-19infection under section 564(b)(1) of the Act, 21 U.S.C.360bbb-3(b)(1), unless the authorization is terminated orrevoked sooner.Performed at: [facility] [id number] Director: Constanza Saxena MD, Phone: [phone] [facility] , [address] [facility] [address] Hemoglobin A1c May 13, 2020 10:44am 6.6 [...] glucose control. * High risk of developing snf complications such asretinopathy, nephropathy, neuropathy, cardiopathy, etc. Some danger of hypoglycemic reaction in Type I diabetics.Some glucose intolerant individuals and "Sub Clinical"diabetics may demonstrate HGBA1C levels in this area. [facility], [address] [place] [address] Hemoglobin A1c January 21, 2020 11:59am 7.2 [...] glucose control. * High risk of developing termite treater helper complications such asretinopathy, nephropathy, neuropathy, cardiopathy, etc. Some danger of hypoglycemic reaction in Type I diabetics.Some glucose intolerant individuals and "Sub Clinical"diabetics may demonstrate HGBA1C levels in this area. [facility], [address] [place] [address] Estimated Average Glucose (eAG) [facility] 10[facility]44am 143 mg/dl An A1C of 7% - the goal of diabetic ther apy - is equivalentto an EAG of 154 mg/dl. [facility], [address] [place] [address] Estimated Average Glucose (eAG) January 21, 2020 11:59am 160 mg/dl An A1C of 7% - the goal of diabetic therapy - is equivalentto an EAG of 154 mg/dl. [facility], [address] [place] [address] Microbiology Results Procedure Source Result Collection Date/Time Result Date/Time Result Comment Performing Site Stool Occult Blood (TYLER) Stool April 16, 2020 12:19pm April 12:54pm [facility], [address] [place] [address] AFB Specimen Processing Tissue Sputu m, Expectorate sputum November 03, 2019 8:06am November 04, 2019 3:06pm [facility] , [address] [facility] [address] Acid Fast Bacilli Smear Sputum, Expe ctorate sputum November 03, 2019 8:06am November 04, 2019 3:06pm [facility], [address] [facility] [address] Acid Fast Bacilli Culture Sputum, Ex pectorate sputum November 03, 2019 8:06am December 18, 2019 3:07pm [facility], [address] [facility] [address] Diagnostic Imaging Reports Report Dictated Date/Time Dictated By Status Radiology Report January 31, 2020 9:06am Manjinder Walters MD completed [address] [place] [address] [phone] NAME SEX PT STATUS ACCOUNT NUMBER ISIDRA CONNOR REG REF [id number] ORDERING PHYSICIAN LOCATION MEDICAL RECORD NO. Yunier Mendoza [place] [id number] ATTENDING PHYSICIAN DATE OF DATE OF EXAM/TIME [...] 31, 2020 2:42pm Manjinder Walters MD completed [facility] [address] [place] [id number] [phone] NAME SEX PT STATUS ACCOUNT NUMBER ISIDRA CONNOR REG REF [id number] ORDERING PHYSICIAN LOCATION MEDICAL RECORD NO. Yunier Mendoza [id number] ATTENDING PHYSICIAN DATE OF DATE OF EXAM/TIME [...] Dt/Tm: : Total DLP = 0.00 mGy-cm Fluoroscopy Time [...] April 16, 2020 1:23pm Healthcare Proxy Yes Oct laly 2019 1:23pm Health Care Proxy Name Yunier Connor December 31, 2019 8:20am Health Care Proxy Phone Number [phone] December 31, 2019 8:20am Living Will No April 162019 1:23pm Chief Complaint and Reason for Visit Chief Complaint Call First Appt R05 Anxiety Anxiety follow-up A31.0,J44.9 Diabetes follow-up E78.5,E11.9,E55.9 PAIN R10.13,D83.9 Pre-op visit (general surgery) Annual Physical R19.5 E78.2,R19.5,E11.8,E55.9,A31.0,K92.1 Diabetes Telemed Visit Reason for Visit Mixed stress [...] Discharge/Depart Date Provider(s) Departed Physician/Provider Office Visit -[facility] October 12, 2019 11:49am October 12, 2019 11:55am Meng Vasquez MD Registered Referred -Laboratory October 12, 2019 1:03pm Meng Vasquez MD Departed Physician/Provider Office Visit -[facility] October 15, 2019 9:48am October 15, 2019 12:04pm Lindsay Chapman Departed Physician/Provider Office Visit -[facility] October 29, 2019 12:49pm October 29, 2019 2:49pm Lindsay Chapman Registered Referred -Laboratory November 03, 2019 7:28am Dania Benites MD Departed Physician/Provider Office Visit -[facility] December 24, 2019 12:47pm December 24, 2019 2:32pm Lindsay Chapman Registered Referred -Laboratory January 21, 2020 11:49am Lindsay Chapman Registered Referred -Ultrasound January 31, 2020 7:39am KEVIN Almanza Registered Referred -Laboratory February 01, 2020 8:55am Deniz Fields MD Departed Physician/Provider Office Visit -[facility] March 21, 2020 2:15pm Elaine 2019 10:59pm Lindsay Chapman Departed Physician/Provider Office Visit -[facility] April 14, 2020 7:50am April 9:36am Lindsay Chapman Registered Referred -Lab Drop Off April 16, 2020 11:18am Lindsay hanson Registered Referred -Laboratory May 13, 2020 10:29am Dania Benites MD Departed Physician/Provider Office Visit -[facility] May 30, 2020 3:21pm May 30, 2020 11:59pm Lindsay Chapman Departed Physician/Provider Office Visit -[facility] July 24, 2020 11:35am July 24, 2020 12:15pm Zara Sparks Recent Diagnosis Onset Date Mixed stress and [...] Event Date Not Given Reason Dose Number Rural Route [employer] Lot Number Vaccine Information Statement (VIS) Deta il pneumococcal conjugate PCV 13 Oct r 2019 [id number] influenza vaccine, inactivated [...] pneumococcal polysaccharide PPV23 vaccine September 02, 2015 [id number] tetanus, diphtheria, acell pertussis 7yrs &up March 11, 2009 tetanus, diphtheria, acell pertussis 7yrs &up December 24, 2019 [id number] Mental Status No Mental Status Information Available Medical Equipment No Medical Equipment Information available Insurance Providers Guarantor ISIDRA CONNOR Address [address] [place] [address] Contact Info. Home Phone: Payer Policy Id Coverage Id Subscriber's Name Subscriber Id Effective Date Expiration Date /[facility] [id number] ISIDRA CONNOR [id number] 2017 MEDICAID Self Pay Self N/A [facility] MEDICAID [id number] ISIDRA CONNOR [id number] Plan of Treatment For long as I know her she always has some anxiety and depression but she talked about her granddaughter visiting talked about getting ready for her granddaughter's g they are keeping it small she [...] She has been back to see her gas cutter partly because of her gastroparesis and partly [...] really cannot afford She does follow with jewelry drill operator so she can certainly discuss her breakthrough sym ptoms with the jewelry drill operator but I think they are likely due [...] of treatment with triple antibiotics next m [facility]. I want her to do another stool [...] has extensive ca re team. She sees [facility] for her ophthalmology care and recent cataract surgery. She sees Dr. andrade and Dr. Ambriz for treatment of her MAC and management of her recurrent pneumonia an d persistent exacerbation of asthma. She sees Dr. Kenney [facility] [place] for her common variable immune deficiency syndrome [...] 2018 when s he was hospitalized at [facility] we are calling for that echo result. I manage her hyperlip idemia her diabetes her vitamin D deficiency her anxiety and depression and she is due for diabetes care next month so have ordered labs she also sees ENT in [place] and has had sinus surgery I felisha [...] approximately 9 months ago it was finally discroxy alvarez that the issue was Mycobacterium avium. Dr. 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 Her jewelry drill operator does have her on wee kly IVIG [...] cath which was completely clear no ac point lay ira changes noted no new labs were obtained as her labs in mid January were actually much improved from previous A1c was 7.2 electrolytes were stable lipid panel is stable renal function was normal at 12 a nd 0.9 GFR greater than 60 sodium 142 potassium 4.6. She will repeat routine labs before her diab[facility] care visit with me in 6 weeks her [...] can have blood sugar [facility] and given Humalog coverage as needed she [...] for her MAC, she also follows w ith her jewelry drill operator pulmonary Dr. Ambriz and gets weekly IVIG [...] a follow-up phone visit for diabetes care enco uraged her to get checking blood sugars at least morning and night again hopefully she will have e windy to do this once the Zoloft kicks [...] crying. She last had called both her acetylene plant operator and her infect ious disease doctor leaving [...] that as soon as she got a chan e she would be getting back to the patient. Glenis was so anxious about her symptoms that she ca lled our office several times. Called infectious disease office several times called her pulmon ologist several times.Hans did return her call did put her on additional antibiotic and predni sone. [place] that if she did get COVID she [...] talk to her brother who is a staff interpreter other than talking to him on the [...] she has follow-up appoin tments with her jewelry drill operator in about 2 weeks and several specialty [...] her unde rgarments did come from the [employer] company She says things are status quo she [...] partly why she did not do blo [employer] work. We discussed the new blood draw [...] 24, 2019 1:50pm Respiratory rate 16 /min 12-24 December 24, 2019 1:50pm Oxygen saturation by Pulse [...]
--- OUTSIDE RECORDS SUMMARY | 2020-07-30 19:21 | CCD | Continuity of Care Document ---
Author Author Jon WILKINSON M.D. Organization Unknown Address [address] [place] [address] Phone [phone] Care Team Providers Care Podiatric Assistant Name Role Phone Lindsay Chapman D.O.M Problems Active Problems Provider Date Myasthenia gravis Antonio Wilkinson M.D. Onset: 02/06/2014 Muscle weakness Antonio Wilkinson M.D. Onset: 02/06/2014 Chronic low back pain Antonio Wilkinson M.D. Onset: 02/06/2014 Chronic neck pain Antonio Wilkinson M.D. Onset: 02/06/2014 Myasthenia gravis Antonio Wilkinson M.D. Onset: 04/11/2018 Myasthenia gravis Antonio Wilkinson M.D. Onset: 04/11/2018 Neck pain Antonio Wilkinson M.D. Onset: 04/11/2018 Obstructive sleep apnea syndrome Salena Helms M.D. Onset: 06/20/2019 Hypersomnia Salena Helms M.D. Onset: 06/20/2019 Restless legs Salena Helms M.D. Onset: 06/20/2019 Diplopia Salena Helms M.D. Onset: 12/06/2019 Social History Type Date Description Comments Sex Unknown Tobacco Use Start: Unknown Patient has never smoked Allergies, Adverse Reactions, Alerts Active Allergies Reaction Severity Comments Date Sulfa Antibiotics 02/06/2014 Medications Active Medications SIG Qnty Indications Ordering Provide r Date Topiramate 100mg Tablets Take One Tablet By Mouth Twice A Day 60tabs Antonio Wilkinson M.D. 0 Ropinirole HCL 2mg Tablets Take 1 Tablet By Mouth Every Morning , 1/2 Tablet AT 2PM. And 1 Tablet AT Bedtime 225taaleida Wilkinson M.D. 06/06/2019 Methotrexate 2.5mg Tablets Take 3 Tablets By Mouth Once Weekly (Every Tuesday) Maximum Daily Dose = 3 12taaleida Helms M.D. 05/08/2019 Folic Acid 1mg Tablets take one tablet by mouth every day 30taaleida Wilkinson M.D. 05/08/2019 Pyridostigmine [place] 60mg Tablet s Take One Tablet By Mouth Four Times A Day 120taaleida Wilkinson M.D. 01/05/2019 Mycophenolate Mofetil 500mg Tablet s Take Two Tablets By Mouth Twice A Day 120Cynthia Zarate 05/05/2018 Neurontin 300mg Capsules Take One Capsule By Mouth Three Times A Day 90capchaparrita Wilkinson M.D. Zoloft 100mg Tablets 1 po qd 90tabs Unknown Immunizations Description No Information Available Vital Signs Date Vital Result Comment 02/06/2014 10:00am BP Systolic 140 mmHg BP Diastolic 70 mmHg Heart Rate 72 /min Height 63 inches 5'3" Weight 234.00 lb BMI (Body Mass Index) 41.4 kg/m2 [place] Body Weight 115 lb 09/21/2010 4:20pm BP Systolic 124 mmHg BP Diastolic 80 mmHg Heart Rate 68 /min Results Test Acquired Date Facility Test Result H/L Range Note CBC With Auto Diff 05/13/2020 [facility] WBC # Bld Auto 6.8 10*3/uL Normal 4.45-10.71 1 RBC # Bld Auto 3.95 10*6/uL Low 4.20-5.40 Hgb Bld-sCnc 12.7 g/dL Normal 10.7-15.4 Hct VFr Bld Auto 41.4 % Normal 37-47 MCV BldCo Auto 104.8 fL High 80-96 MCH RBC Qn Auto 32.2 pg High 27-31 MCHC BldCo-mCnc 30.7 g/dL Low 33-37 RDW RBC Auto 14 % Normal 11-15 Platelet # Bld Auto 288 10*3/uL Normal 130-472 PMV Bld 9.3 fL Normal 9.1-13.1 Neutrophils/leuk NFr Bld Auto 60.1 % Normal 41-77 Neutrophils # Bld Auto 4.1 U Normal 1.7-7.6 Lymphocytes/leuk NFr Bld Auto 28.9 % Normal 14-46 Lymphocytes # Bld Auto 2.0 U Normal 0.6-4.6 Monocytes/leuk NFr Bld Auto 7.9 % Normal 4-12 Monocytes # Bld Auto 0.5 U Normal 0.2-1.2 Eosinophil/leuk NFr Bld Auto 2.0 % Normal 0-7 Eosinophil # Bld Auto 0.1 U Normal 0.0-0.5 Basophils/leuk NFr Bld Auto 0.7 % Normal 0.4-1.3 Basophils # Bld Auto 0.1 U Normal 0.0-0.2 Nucleated Red Blood Cell 0 % Nucleated Red Blood Cell# 0 U Imm Granulocytes Bld Ql Auto 0.4 Normal 0-2 Imm Granulocytes # Bld Auto 0.0 U Normal 0-0.1 Manual diff Bld NO Hgba1c + Eag 05/13/2020 [facility] Hemoglobin A1c % 6.6 % High 4.0-6.0 2 Est. average glucose Bld gHb Est-sCnc 143 mg/dL 3 Comprehensive Metabolic Prof 05/13/2020 [facility] BUN SerPl-mCnc 13 mg/dL Normal 9-23 Sodium SerPl-sCnc 141 mmol/L Normal 132-146 Potassium SerPl-sCnc 5.1 mmol/L Normal 3.5-5.5 Chloride SerPl-sCnc 112 mmol/L High 99-109 Co2 SerPl-sCnc 22 mmol/L Normal 20-31 Anion Gap SerPl-sCnc 12 mmol/L Normal 8-16 Glucose SerPl-mCnc 80 mg/dL Normal 74-106 Creatinine 0.9 mg/dL Normal 0.5-1.1 GFR/Bsa.pred SerPlBld-ArVRat Greater Than 60 Above 60 Alt SerPl w P-5'-P-cCnc 22 U/L Normal 10-49 Ast SerPl w P-5'-P-cCnc 19 U/L Normal 0-33 Alp SerPl-cCnc 132 U/L High 45-129 Calcium SerPl-mCnc 9.2 mg/dL Normal 8.5-10.1 Bilirub SerPl-mCnc 0.4 mg/dL Normal 0.3-1.2 Albumin SerPl BCP-mCnc 3.5 g/dL Normal 3.2-4.8 Prot SerPl-mCnc 7.5 g/dL Normal 5.7-8.2 Lipid Panel 05/13/2020 [facility] l Triglycerides 134 mg/dL Normal 0-150 Cholesterol 169 mg/dL Normal 120-200 HDL Cholesterol 85 mg/dL 4 LDL Cholesterol, Calc 58 mg/dL Normal 0-100 Vitamin D 25 Hydroxy, D2&D3 05/13/2020 [facility] 25(Oh)D3+25(Oh)D2 [facility]/mL 30-100 5 1 E78.2,R19.5,E11.8,E55.9,A31. 0,K92.1 2 The following ranges may be used for interpretation of results: HGBA1C degree of glucose control: Greater than 8%: Action Suggested * Less than 7%: Goal of Diabetic Therapy Less than 6%: Normal Factors such as duration of diabetes, adherence to therapy and the age of the patient should also be considered in assessing the degree of blood glucose control. * High risk of developing senior care complications such as retinopathy, nephropathy, neuropathy, cardiopathy, etc. Some danger of hypoglycemic reaction in Type I diabetics. Some glucose intolerant individuals and "Sub Clinical" diabetics may demonstrate HGBA1C levels in this area. 3 An A1C of 7% - the goal of d iabetic therapy - is equivalent to an EAG of 154 mg/dl. 4 HDL Less than 40 mg/dL: Seth or risk for CHD HDL Greater than 59 mg/dL: Low risk for CHD 5 Vitamin D Status 25- OH Vitamin D: Deficiency: <20 ng/mL Insufficiency: 20 - 29 ng/mL Optimal: > or = 30 ng/mL For 25-OH Vitamin D testing on patients on D2-supplementation and patients for whom quantitation of D2 and D3 fractions is required, the [employer](TM) 25-OH VIT D, (D2,D3), LC/MS/MS is recomm ended: order code [id number] (patients >2yrs). See Note 1 Note 1 For additional information, please refer to http://education.ArQule.Lever/faq/OFT008 (This link is being provided for informa tional/ educational purposes only.) THIS TEST WAS PERFORMED AT: [facility] [address] AHSAN CANSECO MD Procedures Description No Information Available Medical Devices Description No Information Available Encounters Type Date Location Provider Dx Diagnosis Office Visit 04/16/2020 10:30a Main office - Salvatore Gutierrez M54.5 Low back pain R53.1 Weakness G43.819 Other migraine, intractable, without status migrainosus G70.00 Myasthenia gravis without (a cute) exacerbation Assessments Date Code Description Provider 04/16/2020 M54.5 Low back pain Leo Goodman 04/16/2020 R53.1 Weakness Leo Goodman 04/16/2020 G43.819 Other migraine, intractable, wit hout status migrainosus Antonio Wilkinson M.D. 04/16/2020 G70.00 Myasthenia gravis without (acute ) exacerbation Antonio Wilkinson M.D. Plan of Treatment No Information Available Functional Status Description No Information Available Mental Status Description No Information Available Referrals Description No Information Available
--- OUTSIDE RECORDS SUMMARY | 2020-07-30 19:21 | CCD ---
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 Active 95380757 Problem Myasthenia gravis G70.00 Active 40518564 Problem Essential (primary) hypertension I10 Active 48339559 Problem Intertrigo L30.4 Active 55717866 Problem 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 Active 648993554 Problem Moderate persistent asthma with exacerbation J45.4 1 Active 916542567 Problem Overactive bladder N32.81 Active 917829415 Problem Chronic obstructive pulmonary disease, unspecified COPD ty pe J44.9 Active 54401523 Problem Infection due to Enterobacter aerogenes A49.8 Active 260754422 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.4 Activ e 451957556 Problem Type 2 diabetes mellitus without complications E11 .9 Active 158424492 ALLERGIES Allergen (clinical drug ingredient) Drug/Non Drug Allergy do cumented on EMR Reaction Allergy Type Onset Date Status sulfacetamide Sulfacetamide Sodium([facility] Code:[address]-51) Hives Drug Allergy Active ENCOUNTERS from 1960 to 2020-06-20 Encounter Location Date Provider Diagnosis [facility] [address] [place] [address] Jun, Dania Benites IMMUNIZATIONS Vaccine Route Administration Date Status Influenza (6mo & up) Fluzone Unknown Jun 20, 2015 Ref used SOCIAL HISTORY Tobacco Use: Social History Observation Description Date Details (start date - stop date) Never Smoker Sex Assigned At : Social History Observation Description Sex Assigned At Unknown Education: Question Answer Notes Level of Education: Finished High School Tobacco Use: Question Answer Notes Are you a: never smoker REASON FOR REFERRAL No Information VITAL SIGNS No information MEDICATIONS Medication SIG (Take, Route, Frequency, Duration) Notes Start Da te End Date Status Basaglar KwikPen 100 UNIT/ML as directed Subcutaneous Active AirDuo RespiClick 113/14 113-14 MCG/ACT 1 puff Inhalation Twice a day for 30 Active Acidophilus Probiotic Blend - 1 cap Orally bid for 30 Active Hizentra 10 GM/50ML Subcutaneous Ac tive Requip 2 MG 1 tablet Orally two times daily Active Albuterol Sulfate (2.5 MG/3ML) 0.083% as directed Inhalation Active Pyridostigmine [place] 60 MG 1 tablet Orally every 4 hrs Active Ethambutol HCl 400 MG 4 tab Orally Daily for 30 Active Ferrous Sulfate 325 (65 Fe) MG 1 tablet Orally Twice a day Active Methotrexate 2.5 MG 3 tabs Orally weekly Active Azithromycin 250 MG 1 tab Orally Once a day for 30 Active Cefdinir 300 MG as directed Orally bid for 10 day(s) 2019 Active Ipratropium-Albuterol 0.5-2.5 (3) MG/3ML 3 ml as neede d Inhalation every 6 hrs prn for 30 Days Jun, Active Multivitamins as directed Orally Act renay Cyanocobalamin ER 1000 MCG 1 tablet Orally Once a day for 30 day(s) Active Gabapentin 300 MG 1 capsule Orally Once a day for 30 day(s) Active Enalapril Maleate 2.5 MG 1 tablet Orally Once a day Active Incruse Ellipta 62.5 MCG/INH 1 puff Inhalation Once a day Active Zinc Acetate 9 MG as directed Mouth/Throat Active Tylenol 8 Hour 650 MG 2 tablets as needed Orally every 8 hrs Active Loratadine 10 MG 1 tablet Orally Once a day for 30 day(s) Active Montelukast Sodium 10 MG 1 tablet Orally Once a day for 30 day(s) Active Vitamin D 99546 UNIT 1 tablet Orally once per week Active Atorvastatin Calcium 20 MG 1 tablet Orally Once a day for 30 day(s) Active Admelog SoloStar 100 UNIT/ML as directed Subcutaneous Active Rifampin 300 MG 2 tablets Orally Daily for 30 Active Esomeprazole Magnesium 40 MG 1 capsule Orally Once a day for 30 day(s ) Active Topiramate 50 MG 1 tablet Orally Once a day for 30 day(s) Active Aspir-81 81 MG 1 tablet Orally Once a day for 30 day(s) Active Famotidine 20 MG 1 tablet at bedtime as needed Orally Onc e a day for 30 day(s) Active Zoloft 50 MG 1 tablet Orally Once a day for 30 day(s) Active PROCEDURES No Information RESULTS No Results REASON FOR VISIT results and not feeling MEDICAL (GENERAL) HISTORY Type Description Date Medical History Diabetes Medical History GERD Medical History Asthma Medical History Restless leg Syndrome Medical History Parkinsons Disease Medical History Hyperlipidemia Medical History Neuropathy Medical History Depression Medical History Arthritis Medical History Hypertension Medical History myasthenia gravis Medical History hiatal hernia Medical History MAC pneumonia 03/31/2019 RX z ithromax rifampin Ethambutol / AFB culture negative 05/31/19- 07/19/2019 sputum AFB Culture negative Medical History Enterobacter aerogenes colon ization 3 cultures positive 03/2019 - 04/22/19-05/31/2019 Medical History 07/19/2019 E. cloacae bronchitis treated w ith cefdinir Medical History Gross hematuria Medical History Gross hematuria Surgical History Hysterectomy Surgical History Bilateral Carpal Tunnel Release Surgical History Cholecystectomy Surgical History Right ovarian cyst removal Hospitalization History surgical related Hospitalization History TIA 2010 Hospitalization History pneumonia 09/20/2018 Goals Section No Information Health Concerns No Information MEDICAL EQUIPMENT No Information MENTAL STATUS No Information FUNCTIONAL STATUS No Information ASSESSMENTS No Information PLAN OF TREATMENT Medication Medication Name Sig Start Date Stop Date Enalapril Maleate 2.5 MG 1 tablet Orally Once a day Rifampin 300 MG 2 tablets Orally Daily for 30 Acidophilus Probiotic Blend - 1 cap Orally bid for 30 Admelog SoloStar 100 UNIT/ML as directed Subcutaneous Pyridostigmine [place] 60 MG 1 tablet Orally every 4 hrs AirDuo RespiClick 113/14 113-14 MCG/ACT 1 puff Inhalation Twice a day for 30 Ethambutol HCl 400 MG 4 tab Orally Daily for 30 Basaglar KwikPen 100 UNIT/ML as directed Subcutaneous Azithromycin 250 MG 1 tab Orally Once a day for 30 Albuterol Sulfate (2.5 MG/3ML) 0.083% as directed Inhalation Cefdinir 300 MG as directed Orally bid for 10 day(s) Jun, 0 Ipratropium-Albuterol 0.5-2.5 (3) MG/3ML 3 ml as neede d Inhalation every 6 hrs prn for 30 Days Jun, Methotrexate 2.5 MG 3 tabs Orally weekly Next Appt Details Provider Name:Dania Benites, 2020-07-11 10:00:00 AM, [address] [place], [address], Provider Name:Jese Barbour, 2021-01 01:15:00 PM, [facility], [address] [place] [address], [place], [address], Insurance Providers Payer Name Payer Address Payer Phone Insured Name Patient Relati onship to Insured Coverage Start Date Coverage End Date [facility] COMMUN[facility] PLAN [facility] [address] [facility] [id number] ISIDRA YANEZ self
--- OUTSIDE RECORDS SUMMARY | 2020-07-30 19:21 | CCD | Continuity of Care Document ---
Author Author Jon WILKINSON M.D. 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 05/08/2019 Folic Acid 1mg Tablets Take One Tablet By Mouth Every Day 30taaleida Helms M.D. 05/08/2019 Pyridostigmine Raphine 60mg Tablet s Take One Tablet By Mouth Four Times A Day 120ajay Wilkinson M.D. 01/05/2019 Mycophenolate Mofetil 500mg Tablet [...] lb BMI (Body Mass Index) 41.4 kg/m2 [place] Body Weight 115 lb 09/21/2010 4:20pm BP Systolic 124 mmHg BP Diastolic 80 mmHg Heart Rate 68 /min Results Test Acquired Date Facility Test Result H/L Range Note CBC With Auto Diff 05/13/2020 [facility] WBC # Bld Auto 6.8 [...] diff Bld NO Hgba1c + Eag 05/13/2020 [facility] Hemoglobin A1c % 6.6 % High 4.0-6.0 2 Est. average glucose Bld gHb Est-sCnc 143 mg/dL 3 Comprehensive Metabolic Prof 05/13/2020 [facility] BUN SerPl-mCnc 13 mg/dL Normal 9-23 Sodium [...] 7.5 g/dL Normal 5.7-8.2 Lipid Panel 05/13/2020 [facility] l Triglycerides 134 mg/dL Normal 0-150 Cholesterol 169 mg/dL Normal 120-200 HDL Cholesterol 85 mg/dL 4 LDL Cholesterol, Calc 58 mg/dL Normal 0-100 Vitamin D 25 Hydroxy, D2&D3 05/13/2020 [facility] 25(Oh)D3+25(Oh)D2 [facility]/mL 30-100 5 1 E78.2,R19.5,E11.8,E55.9,A31. 0,K92.1 [...] glucose control. * High risk of developing refueling ramp attendant complications such as retinopathy, nephropathy, neuropathy, cardiopathy, [...] D2 and D3 fractions is required, the Ruangguru(TM) 25-OH VIT D, (D2,D3), LC/MS/MS is recomm ended: order code 75334 (patients >2yrs). See Note 1 Note 1 For additional information, please refer to http://education.EatingWell.Parse/faq/HQA992 (This link is being provided for informa tional/ educational purposes only.) THIS TEST WAS PERFORMED AT: [facility] [address] AHSAN CANSECO MD Procedures Description No Information Available Medical Devices Description No Information Available Encounters Type Date Location Provider Dx Diagnosis Office Visit 07/21/2020 11:45a Main office - [place] [facility] Goodman M54.5 Low back pain M47.896 Other spondylosis, lumbar re gion G43.809 Other migraine, not intracta ble, without status migrainosus G70.00 Myasthenia gravis without (a cute) exacerbation M54.2 Cervicalgia G25.81 Restless legs syndrome G47.30 Sleep apnea, unspecified Office Visit 04/16/2020 10:30a Main office - [place] Salvatore Goodman M54.5 Low back pain R53.1 Weakness G43.819 Other migraine, intractable, without status migrainosus G70.00 Myasthenia gravis without (a cute) exacerbation Assessments Date Code Description Provider 07/21/2020 M54.5 Low back pain Antonio JajaCynthiaD Lorie 07/21/2020 M47.896 Other spondylosis, lumbar region Antonio Jaja, M.DLorie 07/21/2020 G43.809 Other migraine, not intractable, without status migrainosus Antonio Jaja, M.DLorie 07/21/2020 G70.00 Myasthenia gravis without (acute ) exacerbation Antonio Jaja, M.D. 07/21/2020 M54.2 Cervicalgia Antonio Jaja, M.D oLrie 07/21/2020 G25.81 Restless legs syndrome Antonio Lat if, M.DLorie 07/21/2020 G47.30 Sleep apnea, unspecified Antonio L billy, M.D. 04/16/2020 M54.5 Low back pain Antonio Jaja, M.D Lorie 04/16/2020 R53.1 Weakness Antonio Jaja, M.D . 04/16/2020 G43.819 Other migraine, intractable, wit hout status migrainosus Antonio Jaja, M.D. 04/16/2020 G70.00 Myasthenia gravis without (acute ) exacerbation Antonio Jaja M.D. Plan of Treatment No Information Available Functional Status Description No Information Available Mental Status Description No Information Available Referrals Description No Information Available
--- OUTSIDE RECORDS SUMMARY | 2020-07-30 19:21 | CCD ---
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 Active 82923169 Problem Myasthenia gravis G70.00 Active 27220659 Problem Essential (primary) hypertension I10 Active 96661645 Problem Intertrigo L30.4 Active 05898544 Problem 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 Active 588079095 Problem Moderate persistent asthma with exacerbation J45.4 1 Active 430365866 Problem Overactive bladder N32.81 Active 643813035 Problem Chronic obstructive pulmonary disease, unspecified COPD ty pe J44.9 Active 58961197 Problem Infection due to Enterobacter aerogenes A49.8 Active 576403431 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 Activ e 128189123 Problem Type 2 diabetes mellitus without complications E11 .9 Active 492149819 ALLERGIES Allergen (clinical drug ingredient) Drug/Non Drug Allergy do cumented on EMR Reaction Allergy Type Onset Date Status sulfacetamide Sulfacetamide Sodium([facility] Code:[address]-22) Hives Drug Allergy Active ENCOUNTERS from 1959 to 2020-06-16 Encounter Location Date Provider Diagnosis [address] [address] Jun, Dania Kamari Pulmonary Mycobacterium avium complex (M AC) infection A31.0 and Chronic obstructive pulmonary disease, unspecified COPD type J44.9 IMMUNIZATIONS Vaccine Route Administration Date Status Influenza [...] KwikPen 100 UNIT/ML as directed Subcutaneous Active Ferrous Sulfate 325 (65 Fe) MG 1 tablet Orally Twice a day Active Acidophilus Probiotic Blend - 1 cap Orally bid for 30 Active Hizentra 10 GM/50ML Subcutaneous Ac tive Albuterol Sulfate (2.5 MG/3ML) 0.083% as directed Inhalation Active Methotrexate 2.5 MG 3 tabs Orally weekly Active Ethambutol HCl 400 MG 4 tab Orally Daily for 30 Active Pyridostigmine [place] 60 MG 1 tablet Orally every 4 hrs Active Requip 2 MG 1 tablet Orally two times daily Active AirDuo RespiClick 113/14 113-14 MCG/ACT 1 puff Inhalation Twice a day for 30 Active Vitamin D 41854 UNIT 1 tablet Orally once per week Active Azithromycin 250 MG 1 tab Orally Once a day for 30 Active Multivitamins as directed Orally Act renay [...] Once a day for 30 day(s) Active Atorvastatin Calcium 20 MG 1 tablet [...] Information RESULTS No Results REASON FOR VISIT lab slip/yellow sputum MEDICAL (GENERAL) HISTORY Type Description Date Medical [...] No Information FUNCTIONAL STATUS No Information ASSESSMENTS Encounter Date Diagnosis Assessment Notes Treatment Notes Treatm ent Clinical Notes Jun, Pulmonary Mycobacterium aviu m complex (MAC) infection (ICD-10 - A31.0) Jun, Chronic obstructive pulmonar y disease, unspecified COPD type (ICD- 10 - J44.9) PLAN OF TREATMENT Medication Medication Name Sig Start Date Stop Date Enalapril Maleate 2.5 MG 1 tablet Orally Once a day Rifampin 300 MG 2 tablets Orally Daily for 30 Acidophilus Probiotic Blend - 1 cap Orally bid for 30 Azithromycin 250 MG 1 tab Orally Once a day for 30 Admelog SoloStar 100 UNIT/ML as directed Subcutaneous Methotrexate 2.5 MG 3 tabs Orally weekly Pyridostigmine [place] 60 MG 1 tablet Orally every 4 hrs Ethambutol HCl 400 MG 4 tab Orally Daily for 30 Basaglar KwikPen 100 UNIT/ML as directed Subcutaneous AirDuo RespiClick 113/14 113-14 MCG/ACT 1 puff Inhalation Twice a day for 30 Albuterol Sulfate (2.5 MG/3ML) 0.083% as directed Inhalation Treatment Notes Test Name Order Date SPUTUM CULTURE AND GRAM STAIN 2020-06-16 AFB SMEAR & CULTURE 2020-06-16 Next Appt Details Provider Name:Dania Benites, 2020-07-11 1 10:00:00 AM, [address] [place], [address], Provider Name:Jese Barbour, 2021-01 01:15:00 PM, [facility], [address] [place] [address], [place], [address], Insurance Providers Payer Name Payer Address Payer Phone Insured Name Patient Relati onship to Insured Coverage Start Date Coverage End Date [facility] COMMUNITY PLAN [facility] [address] [facility] [phone] ISIDRA YANEZ self
--- OUTSIDE RECORDS SUMMARY | 2020-07-30 19:21 | CCD ---
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 Active 057975868 Problem Moderate persistent asthma with exacerbation J45.4 1 Active 538726890 Problem Overactive bladder N32.81 Active 404098466 Problem Chronic obstructive pulmonary disease, unspecified COPD ty pe J44.9 Active 39730982 Problem Infection due to Enterobacter aerogenes A49.8 Active 587622536 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 Activ e 921322771 Problem Type 2 diabetes mellitus without complications E11 .9 Active 682566353 ALLERGIES Allergen (clinical drug ingredient) Drug/Non Drug Allergy do cumented on EMR Reaction Allergy Type Onset Date Status sulfacetamide Sulfacetamide Sodium([facility] Code:[address]-54) Hives Drug Allergy Active ENCOUNTERS from 1960 to 2020-06-21 Encounter Location Date Provider Diagnosis [address] [address] Jun, Dania Benites IMMUNIZATIONS Vaccine Route Administration [...] MG/3ML) 0.083% as directed Inhalation Active Pyridostigmine [place] 60 MG 1 tablet Orally every 4 [...] day for 30 day(s) Active Vitamin D 34251 UNIT 1 tablet Orally once per week [...] Information RESULTS No Results REASON FOR VISIT Azithromycin 250 MG Tablet MEDICAL (GENERAL) HISTORY Type Description Date Medical [...] SoloStar 100 UNIT/ML as directed Subcutaneous Pyridostigmine [place] 60 MG 1 tablet Orally every 4 [...] Provider Name:Dania Benites, 2020-07-11 10:00:00 AM, [address] [place], [address], Provider Name:Jese Barbour, 2021-01 01:15:00 PM, [facility], [address] [place] [address], [place], [address], Insurance Providers Payer Name Payer Address Payer Phone Insured Name Patient Relati onship to Insured Coverage Start Date Coverage End Date [facility] COMMUNITY PLAN [facility] [address] [facility] [phone] ISIDRA YANEZ self
--- OUTSIDE RECORDS SUMMARY | 2020-07-30 19:21 | CCD ---
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 Active 305349398 Problem Moderate persistent asthma with exacerbation J45.4 1 Active 571047638 Problem Overactive bladder N32.81 Active 299376589 Problem Chronic obstructive pulmonary disease, unspecified COPD ty pe J44.9 Active 76628501 Problem Infection due to Enterobacter aerogenes A49.8 Active 088352590 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.4 Activ e 424995471 Problem Type 2 diabetes mellitus without complications E11 .9 Active 776266461 ALLERGIES Allergen (clinical drug ingredient) Drug/Non Drug Allergy do cumented on EMR Reaction Allergy Type Onset Date Status sulfacetamide Sulfacetamide Sodium([facility] Code:[address]-50) Hives Drug Allergy Active ENCOUNTERS from 1960 to 2020-06-21 Encounter Location Date Provider Diagnosis [address] [address] Jun, Dania Benites IMMUNIZATIONS Vaccine Route Administration [...] MG/3ML) 0.083% as directed Inhalation Active Pyridostigmine [place] 60 MG 1 tablet Orally every 4 [...] day for 30 day(s) Active Vitamin D 40832 UNIT 1 tablet Orally once per week [...] Information RESULTS No Results REASON FOR VISIT zithromycin MEDICAL (GENERAL) HISTORY Type Description Date Medical [...] SoloStar 100 UNIT/ML as directed Subcutaneous Pyridostigmine [place] 60 MG 1 tablet Orally every 4 [...] Provider Name:Dania Benites, 2020-07-11 10:00:00 AM, [address] [place], [address], Provider Name:Jese Barbour, 2021-01 01:15:00 PM, [address] [facility], [address] [place] [address], [place], [address], Insurance Providers Payer Name Payer Address Payer Phone Insured Name Patient Relati onship to Insured Coverage Start Date Coverage End Date [facility] COMMUNITY PLAN [facility] [address] [facility] [phone] ISIDRA YANEZ self
--- OUTSIDE RECORDS SUMMARY | 2020-07-30 19:22 | CCD | Continuity of Care Document ---
Author Author Jon LEMUS MD Organization Unknown Address [address] [address] Phone [phone] Care Team Providers Care Debate Director Name Role Phone Lindsay Khan D.O. AUTM Deniz Fields M.D. AUTM Riddhi Duffy - office [phone] AUT[facility] [phone] Problems Active Problems Provider Date Difficulty breathing Riddhi Duffy M.D. Onset: Cough Riddhi Duffy M.D. Onset: Mild persistent asthma Riddhi Duffy M.D. Onset: 02/26/2016 Posterior rhinorrhea Riddhi Duffy M.D. Onset: Gastroesophageal reflux disease Leo Bradley Onset: 02/26/2016 Chronic pulmonary heart disease Leo Bradley Onset: 04/14/2016 Allergic asthma without status asthmaticus Jewel Lemus MD Onset: 12/21/2016 Immunization Riddhi Duffy M.D. Onset: Disorder of gastrointestinal tract Jewel Lemus MD Onset : 01/26/2017 Chronic maxillary sinusitis Jewel Lemus MD Onset: 04/26 Chronic ethmoidal sinusitis Jewel Lemus MD Onset: 04/26 Chronic rhinitis Jewel Lemus MD Onset: 04/26/2017 Social History Type Date Description Comments Sex Unknown Tobacco Use Start: Unknown Never Smoked Cigarettes ETOH Use Never used alcohol Recreational Drug Use Denies Drug Use Tobacco Use Reviewed: 01/03/20 Patient has never smoked Smoking Status Reviewed: 04/10/20 Patient has never smoked Allergies, Adverse Reactions, Alerts Active Allergies Reaction Severity Comments Date Sulfa 09/11/2012 Niacin 09/11/2012 Fluoxetine 09/11/2012 Metoclopramide 09/11/2012 Metformin 04/26/2017 Medications Active Medications SIG Qnty Indications Ordering Provide r Date Airduo Respiclick 113-14mcg/Act Aerosol 2 puff twice a day 1units Jayme Ambriz MD Methotrexate 2.5mg Tablets 3 tabs by mouth weekly Jewel Lemus MD 05/28/2019 Incruse Ellipta 62.5mcg/Inh Aeroso l Inhale One puff By Mouth Every Day 30units Emelyn Mccall, N.P. 03/08/2019 Pyridostigmine [place] 60mg Tablet s 1 tab by mouth four times a day Unknown Esomeprazole Magnesium 40mg Capsul es DR 1 by mouth every day Unknown Erythromycin 250mg Tablets DR 1 tab by mouth q1d Unknown Famotidine 20mg Tablets 1 tab by mouth once a day Unknown Sertraline HCL 100mg Tablets 1 tab every day 30tabs Unknown Rifampin 300mg Capsules 2 tabs by mouth every day 60caps Unknown Requip 2mg Tablets 1 tab by mouth at 4pm and bedtime, 1mg at noon Unknown 000 Ethambutol HCL 400mg Tablets 1 by mouth every day Unknown Basaglar Kwikpen 100 Unit/ML Solution Pen-Inject Unknown Admelog 100Unit/ML Solution sliding scale Unknown Iron 325(65Fe) mg Tablets 1 by mouth twice a day Unknown Topamax 100mg Tablets 1 tab by mouth every day 30tabs Unknown Lipitor 20mg Tablets 1 by mouth every day Unknown Ipratropium [place]/Albuterol Sulfate 0.5-2.5(3)mg/3ML Solution 1 vial via neb four times a day as needed 360ml J47.9 Unknown Hizentra 1GM/5ML Solution take 75 mg sc 1 x per week Unknown Multi Vitamin Tablets daily Unknown Aspirin 81mg Chewtabs 1 per d ay Unknown Gabapentin 300mg Capsules 1 p o tid Unknown Loratadine 10mg Tablets 1 by mouth every day Unknown Montelukast Sodium 10mg Tablets 1 by mouth every day Unknown Enalapril Maleate 2.5mg Tablets 1 po qd Unknown Ventolin HFA 108(90Base) mcg/Act A erosol 2 puffs qid/prn Unknown Nexium 40mg Capsules DR 1 by mouth bid Unknown Vitamin D (Ergocalciferol) 14219Gvou Capsules 1 cap by mouth once a week Unknown 0 History Medications Advair HFA 115-21mcg/Act Aerosol 2 puff twice a day 12gm Jayme Ambriz MD 04/21/2020 - 04/23/2020 Breo Ellipta 100-25mcg/Inh Aerosol 1 inhalation once daily 180units Emelyn Mccall, N.P. 2019 - 04/21/2020 Immunizations CPT Code Status Date Vaccine Lot # [id number] Given 04/14/2016 Influenza Vaccine 3 Years Of Age Or Older (Flulaval) [id number] Given 04/14/2016 Influenza Virus Split 3 Yrs And Above For Intramuscular Use [id number] Given 04/30/2015 Influenza Virus Split 3 Yrs And Above For Intramuscular Use Vital Signs Date Vital Result Comment 06/18/2020 9:39am Height 63 inches 5'3" Weight 255.00 lb BMI (Body Mass Index) 45.2 kg/m2 [place] Body Weight 115 lb Weight 115.668 kg BSA (Body Surface Area) 2.14 m2 04/10/2020 3:27pm BP Systolic 132 mmHg BP Diastolic 68 mmHg Heart Rate 67 /min O2 % BldC Oximetry 98 % Body Temperature 96.1 F Height 63 inches 5'3" Weight 255.50 lb BMI (Body Mass Index) 45.3 kg/m2 [place] Body Weight 115 lb Weight 115.895 kg BSA (Body Surface Area) 2.15 m2 Results Test Acquired Date Facility Test Result H/L Range Note Culture Sputum And Gram Stain 02/21/2020 [facility] [address] [place], [place] [id number] [phone] Gram Stain (SEE NOTE) Normal 1 Sputum Culture FULL REPORT IN L <SEE NOTE> Normal 2 Afb Smear & Culture 02/21/2020 [facility] Main Lab [address] [place], [place] [id number] [phone] Afb Smear Due to limited s <SEE NOTE> 3 Afb Culture Testing performe <SEE NOTE> 4 1 QUALITY: [place] WBCS FEW EPITHELIAL CELLS MODERATE GRAM POSITIVE COCCI IN CHAINS MODERATE GRAM POSITIVE RODS 2 FULL REPORT IN LAB NOTES ([facility]C W and [facility]). NORMAL TOMMY PRESENT ORGANISM 1: ENTEROBACTER AEROGENES QUANTITY OF GROWTH FEW ORGANISM 1: ENTEROBACTER AEROGENES ENTEROBACTER AEROGENES: REACTION TRIMETHOPRIM/SULFAMETHOXAZOLE IV 160mg TMP & 800mg SMXq6h <=20 S TRIMETHOPRIM/SULFAMETHOXAZOLE PO Bactrim DS Bid <=20 S GENTAMICIN IV 80mg q8h <=1 S CEFAZOLIN IV 1gm q8h >=64 R LEVOFLOXACIN IV 500mg qd 4 I LEVOFLOXACIN PO 250mg qd 4 I LEVOFLOXACIN PO 500mg qd 4 I TOBRAMYCIN IV 80mg q8h <=1 S CEFTRIAXONE IV 1gm q24h <=1 S CEFTAZIDIME IV 1gm q8h <=1 S PIPERACILLIN/TAZOBACTAM IV 2.25 gm q6h 32 I AZTREONAM IV 1gm q8h <=1 S ERTAPENEM IV 1gm qd <=0.5 S MEROPENEM IV 1 gm q8h <=0.25 S MEROPENEM IV 500 mg q8h <=0.25 S TIGECYCLINE IV 50mg q12h 2 S CEFEPIME IV 1 gm q12h <=1 S CEFEPIME IV 2 gm q12h <=1 S 3 Due to limited sensitivity, smear results should be used as an adjunct in evaluating patient tuberculosis status. Cultural examination is highly recommended for clinical diagnosis. AFB smear [place] NEGATIVE (NO AFB Seen ) 4 Testing performed at [facility] . Report copy to follow on a separate form. 04/07/20 REF LAB#:[id number] FINAL REPORT: 04/15/20 FULL REPORT IN LAB NOTES (eCW and [facility]). No Acid-Fast Bacilli Isolated after 6 Weeks. Procedures Date Code Description Status 12/25/2019 58049 Diffusing Capacity Completed 12/25/2019 00631 Plethysmography Determination Jason ng Volumes & Per Airway Resist Completed 12/25/2019 97651 Maximum Breathing Capacity, Maxi mal Voluntary Ventilation Completed 12/25/2019 31597 Bronchospasm Evaluation Complete d Medical Devices Description No Information Available Encounters Type Date Location Provider Dx Diagnosis Office Visit 04/10/2020 3:45p [facility] Daisy Mccall, N.P. A31.0 Pulmonary mycobacterial infection J47.9 Bronchiectasis, uncomplicate d Office Visit 01/03/2020 10:15a [facility]Th[facility] Daisy Mccall, N.P. R91.8 Other nonspecific abnormal finding of jason ng field J47.9 Bronchiectasis, uncomplicate d A31.0 Pulmonary mycobacterial infe ction Assessments Date Code Description Provider 06/18/2020 J32.0 Chronic maxillary sinusitis Jewel Lemus MD 06/18/2020 J31.0 Chronic rhinitis Jewel Lemus MD 04/10/2020 A31.0 Pulmonary mycobacterial infectio n Otis Mccalla, N.P. 04/10/2020 J47.9 Bronchiectasis, uncomplicated Ko lb, Emelyn, N.P. 01/03/2020 R91.8 Other nonspecific abnormal findi ng of lung field Emelyn Mccall, N.P. 01/03/2020 J47.9 Bronchiectasis, uncomplicated Ko lb, Emelyn, N.P. 01/03/2020 A31.0 Pulmonary mycobacterial infectio n Romelia Mccallsea, N.P. 12/25/2019 J47.9 Bronchiectasis, uncomplicated Pu lmonary Lab 12/25/2019 R06.00 Dyspnea, unspecified Pulmonary L ab Plan of Treatment Future Appointment(s):* 08/11/2020 11:45 am - Emelyn Mccall, N.P. at [facility] Pulmonary[facility]Th[facility]acic 06/18/2020 - Jewel Lemus MD* J32.0 Chronic maxillary sinusitis * J31.0 Chronic rhinitis Functional Status Functional Condition Comment Date Status Independent with all ADL's Activ e Independent with all IADL's Acti ve Mental Status Mental Condition Comment Date Status Cognitive ability not impaired A ctive Referrals Description No Information Available
--- OUTSIDE RECORDS SUMMARY | 2020-07-30 19:23 | CCD | Continuity of Care Document ---
Author Author [facility] Organization [facility] Address [address] [place] [address] Phone Support Name Relationship Address Phone Lindsay Chapman PRS [facility] [place] [address] [place] [address] Deniz Fields PRS [address] [place] [address] Meng Vasquez PRS [address] [place] [address] Patricio Benites PRS [place] [address] Doctor Provided, Family No PRS Unknown Unava ilable Yunier Mendoza PRS [facility] [facility] [place] [address] Frances [place] [address] Allergies, Adverse Reactions, Alerts Allergen Type Severity [...] (Vitamin D2) 50,000 unit c apsule Discontinued 40880 UNIT PO 1 Time Per Week 4 November 08, 2018 10:20pm December 26 9 6:28pm Gabapentin Discontinued 300 MG PO Three times a day November 08, 2018 10:21pm June 18, 2019 1:49pm Pyridostigmine [place] (Mestinon) 60 mg tablet Active 60 MG [...] 2019 11:20am November 28, 2019 8:09am Sertraline Active 100 MG PO daily October 15, 2019 12:36pm diphth,pertus(acell),tetanus 2.5 Lf unit -8 mcg-5 Lf/0.5mL IM syringe Discontinued 0.5 ML IM 1 Time/Once 0.December 24, 2019 12:47pm December 23, 020 2:25pm Insulin Glargine (Basaglar Kwikpen U-100 Insulin) 100 unit/mL (3 mL) insulin pen Active 65 UNIT SQ At Bedtime December 24, 2019 1:53pm drop to 60 if no bedtime snack Afluria Qd 2019-(3yr up)(PF) (flu vac [id number] 36mos up(PF)) Discontinued 60 MCG IM 1 Time/Once 0.5 March 21, 2020 2:15pm Septembe r 2019 4:31pm Prevnar 13 (PF) (pneumoc 13-falguni conj-dip cr(PF)) 0.5 mL intramuscular syringe Discontinued 0.5 ML IM 1 Time/Once 0.5 April 14, 2020 7:50am April 14, 2020 9:39am Ipratropium-Albuterol Discontinued 3 ML NEB Four Times a Day August 18, 2014 11:20am January 30, 2015 8:41am Prednisone Discontinued 10 MG PO 0800 11 August 18, 2014 11:20am August 26, 2014 [...] D2) (Vitamin D2) 50,000 UNITS capsule Discontinued 79788 UNITS PO WE@0900 April 07, 2016 8:22am [...] 2016 8:28am April 09, 2016 2:21pm Pyridostigmine [place] Discontinued 60 MG PO Four Times a [...] Times Per Day March 30, 2018 1:14pm [facility] 2017 10:00am Prednisone Discontinued 10 MG PO [...] DAYS May 06, 2018 9:25am November 08 019 10:32pm Ropinirole (Requip) 1 MG tablet Disc [...] Bedtime September 10, 2018 3:58pm October 22 019 8:26pm Methylprednisolone (Medrol*) 4 MG tablets,dose pack [...] Day 10 September 18, 2018 9:50am October 10 2 019 11:22am Levofloxacin (Levaquin) 750 MG [...] July 14, 2019 8:27am Blood Sugar Diagnostic ([employer] Verio Test Strips) st rip Discontinued STRIP [...] 6:28pm October 15, 2019 12:11pm Reference #: [id number] Ranitidine Hcl Discontinued 300 MG PO At Bedtime December 26, 2018 6:28pm January 13, 2019 9:00pm Montelukast Discontinued 10 MG PO At Bedtime December 26, 2018 6:28pm October 29, 2019 2:09pm Ergocalciferol (Vitamin D2) (Vitamin D2) 50,000 unit c apsule Discontinued 05479 UNIT PO 1 Time Per Week December [...] Delica Lancets) 33 gauge misc Discontinued gauge MC .MEDSUPPLY December 26, 2018 6:28pm June 01, [...] Times Per Day October 15, 2019 11:19am October 29, 2019 2:00pm 1mg morning and night, 0.5mg in the afternoon AND 0.5 TAB AT 2PM. Nitrofurantoin Monohyd/M-Cryst (Macrobid) 100 mg capsu le Discontinued 100 MG PO 2 Times Per Day 20 February 07, 2019 11:21am February 16, 2019 11:00pm must administer with a meal/food Metformin (Glucophage Xr) 500 mg tablet extended release 24 hr Discontinued 500 MG PO 2 Times Per Day October 09, 2010 7:46am October 09 10:02am Metformin (Glucophage Xr) 500 mg tablet extended release 24 hr Discontinued 500 MG PO 2 Times Per Day 120 October 09, 2010 10:02am July 9:43am Blood [...] TAB PO Three times a day 0 December 02, 2010 1:17p m February 24, [...] O nce Per Day December 02, 2010 1:20p m Gabapentin (Neurontin) [...] Day December 02, 2010 1:34pm February 05 1 12:35pm Cyanocobalamin (Vitamin B-12) (Vitamin B-12) 500 [...] MG PO Th ree times a day December 21, 2010 5:08pm April 05, 2011 4:16pm Ciprofloxacin Hcl (Cipro) 500 mg tablet Discontinued 500 MG PO 2 Times Per Day January 19, 2011 8:14am February 02, 2011 9:48am Fluconazole (Diflucan) 150 mg tablet Discontinued 150 MG PO ONE TIME January 19, 2011 1:20 pm February 02, [...] EACH TP Three times a day 100 March 18, 2011 4:04pm September 06, 2011 [...] MG PO 2 Times Per Day 120 April 05, 2011 4:16pm October 11, 2011 [...] 2 TAB PO Three times a day May 07, 2011 1:38pm January 18, 2012 [...] 8 MG PO Three times a day 90 June 11, 2011 9:28am October 19, 2011 12:55pm Ciprofloxacin Hcl (Cipro) 500 mg tablet Discontinued 500 MG PO 2 Times Per Day 20 June 11, 2011 9:28am July 20, 2011 [...] 1 GM TOP 2 Times Per Day 30 July 20, 2011 9:55am October 19, 2011 [...] PO 2 Times Per Day 120 October 11, 2011 3:46pm December 13, 2011 8:32am Ergocalciferol (Vitamin D2) (Vitamin D2) Discontinued 85654 UNITS PO 3XWEEKLY October 18, 2011 6:47pm January 18, 2012 1:17pm Budesonide (Pulmicort) Discontinued 180 MCG IH 2 Times Per Day 1 October 19, 2011 1:1 4pm October 19, [...] 9:32am Ergocalciferol (Vitamin D2) (Vitamin D2) Discontinued 17532 UNITS PO 3XWEEKLY 14 January 18, 2012 1:17pm February 24, 2012 8:39am Cefuroxime Axetil (Ceftin) 500 mg tablet Discontinued 500 MG PO 2 Times Per Day February 01, 2012 3:44pm February 24, 2012 8:18am Glimepiride (Amaryl) 4 mg tablet Dis continued 1 TAB PO 2 Times Per Day 60 February 07, 2012 12:46pm August 12, 2012 11:30am Ezetimibe (Zetia) 10 mg tablet Discontinue d 1 TAB PO Once Per Day February 07, 2012 12: 46pm April 28, 2012 5:23pm Repaglinide (Prandin (Repaglinide)) Discontinued 4 MG PO 2 Times Per Day February 07, 2012 12:46pm May 15, 2012 1:41pm Prednisone Discontinued 40 MG PO Once Per Day February 08, 2012 3:23pm February 24, 2012 [...] tablet Discontinued 150 MG PO ONE TIME February 09, 2012 2:2 0pm February 24, [...] 8 :35am September 08, 2012 8:37am Pyridostigmine [place] (Mestinon) 60 mg tablet Discontinued 1 TAB PO Four Times a Day 0 February 24, 2012 8:44am April 07, 2016 8:31am [facility]-3 Fatty Acids-Fish Oil (Fish Oil) 340-1,000 mg [...] MG PO 2 Times Per Day 120 May 15, 2012 1:41pm November 10, 2012 9:27am Cholecalciferol (Vitamin D) Discontinued 1 TAB PO Once Per Day June 07, 2012 1:51pm September 29, 2012 [...] MC 2 Times Per Day 100 August 14, 2012 12:53pm August 14, 2012 1:45pm Lancets (Onetouch Delica Lancets) 33 gauge misc Discontinued 1 EACH TP Three times a day August 14, 2012 12:53pm August 14, 2012 1:45pm Blood Sugar Diagnostic (Accu-Chek Comfort Curve Test) strip Discontinued 1 EACH MC 2 Times Per Day 100 August 14, 2012 1:45pm March 19, 2013 [...] continued 20 MG PO A t Bedtime September 08, 2012 8:3 7am March 12, [...] 1 TAB PO Once Per Day December 11, 2012 12:08pm June 11, 2013 8:15am Ropinirole (Requip) 0.5 mg tablet Di scontinued 2 TAB PO A t Bedtime 150 December 11, 2012 12: 53pm June 11, 2013 12:13pm Ramipril Discontinued 1 CAP PO Once Per Day December 11, 2012 12:53pm June 11, 2013 8:15am Fluticasone Propionate (Flonase) 50 mcg/ actuation spray,suspension Discontinued 2 SPRAYS NA Once Per Day December 29, 2012 8:38am May 08, 2013 9:40am Loratadine (Claritin) Discontinued 10 MG PO Once Per Day December 29, 2012 8:3 8am June 13, 2013 7:58am Metformin (Glucophage Xr) 500 mg tablet extended release 24 hr Discontinued 500 MG PO 2 Times Per Day January 09, 2013 7:11am February 15 1:53pm Topiramate (Topamax) 50 mg tablet Di scontinued 100 MG PO Once Per Day 60 January 29, 2013 9:2 8am June 12, 2013 10:53am Citalopram Discontinued 1 TAB PO Once Per Day February 02, 2013 8:39am February 05, 2013 [...] 1:59pm Ergocalciferol (Vitamin D2) (Vitamin D2) Discontinued 45051 UNITS PO 1XMONTHLY March 14, 2013 1:57pm [...] 2013 5:21pm Lancets (Freestyle Lancets) 28 gauge [facility] Discontinued 1 EACH MC Once Per Day 1 March 19, 2013 5:19pm March 19, 2013 5:21pm Blood Sugar Diagnostic (Freestyle Test) strip Discontinued 1 EACH IN Once Per Day 50 March 19, 2013 5:20pm March 19, 2013 5:21pm Blood Sugar Diagnostic (Freestyle Test) strip Discontinued 1 EACH IN Once Per Day 50 March 19, 2013 5:21pm July 17, 2013 8:44am Lancets (Freestyle Lancets) 28 gauge [facility] Discontinued 1 EACH MC Once Per Day [...] PO O nce Per Day July 23, 2013 9:30am August 08, 2013 1:24pm Atorvastatin (Lipitor) 10 mg tablet Discontinued 1 TAB PO O nce Per Day August 01, 2013 5:30pm August 08, 2013 10:59am Blood Sugar Diagnostic (Freestyle Test) strip Discontinued 1 EACH IN Once Per Day August 01, 2013 5:30pm February 05, 2014 [...] 1 GM TP 2 Times Per Day 30 September 11, 2013 2:1 5pm October 30, [...] 500 MG PO 2 Times Per Day November 02, 2013 10:54am December 14, 2013 8:58am Sitagliptin (Januvia) 100 MG tablet Discontinued 1 TAB PO O nce Per Day November 13, 2013 9:28p m May 21, 2014 12:14pm Budesonide-Formoterol (Symbicort 160-4.5 Mcg Inhaler) 10.2 GM HFA aerosol inhaler Discontinued 2 PUFFS IH 2 Times Per Day November 13, 2013 9:28pm May 21, 2014 12:14pm Citalopram Discontinued 1 TAB PO Once Per Day November 14, 2013 4:10pm Price 2013 7:08pm Albuterol Sulfate (Proair Hfa) 8.5 [...] 2014 8:50pm Ergocalciferol (Vitamin D2) (Vitamin D2) 16770 UNIT ca psule Discontinued 2 CAPS PO 2X MONTHLY 2 January 01, 2014 3:28pm February 05 14 12:28pm Esomeprazole Magnesium (Nexium) 40 MG ca [...] Discontinued 2 PUFFS IH Q4HRS January 27, 2014 7:08pm April 05, 2014 [...] 2014 10:14am Ergocalciferol (Vitamin D2) (Vitamin D2) 55420 UNIT ca psule Discontinued 2 CAPS PO 2X MONTHLY 2 February 05, 2014 12:28pm February 05, 014 4:52pm Ergocalciferol (Vitamin D2) (Vitamin D2) 05449 UNIT ca psule Discontinued 1 CAPS PO [...] inha ler Discontinued 2 PUFFS IH Q4HRS April 05, 2014 8:40am 2014 8:50am Metformin [...] 21, 2014 12:14pm December 8:05am Flu Vacc [id number](4yr,Up)(Pf) (Fluvirin [id number] Syringe) 45 MCG/0.5 ML syringe Discontinued 0.5 [...] PO Three times a day PRN 90 August 01, 2014 11:17am December 27, 2014 11:10am Atorvastatin (Lipitor) 20 MG tablet Discontinued 20 MG PO A t Bedtime August 01, 2014 11:30am February 04, 2015 5:37pm Montelukast (Singulair) 10 MG tablet Discontinued 10 MG PO O nce Per Day August 01, 2014 11:30am September 06, 2014 1:29pm Ergocalciferol (Vitamin D2) (Vitamin D2) 19168 UNIT ca psule Discontinued 1 CAPS PO 2X MONTHLY 2 August 01, 2014 11:30am August 16, 2014 [...] Day 30 October 30, 2014 3:30pm November 13 5 2:08pm Nystatin Discontinued 1 GM TP [...] 3 ML NEB Four Times a Day 20 January 30, 2015 8:4 1am February 06, 2015 8:27am Ergocalciferol (Vitamin D2) (Vitamin D2) 14176 UNIT ca psule Discontinued 1 CAP PO 2 Times Per Week 8 February 04, 2015 4:56pm February 04 15 5:36pm Triamcinolone Acetonide Discontinued 1 GM TP 2 Times Per Day 60 February 04, 2015 5:3 6pm May 28, 2015 12:44pm 0.1% Ergocalciferol (Vitamin D2) (Vitamin D2) 68972 UNIT ca psule Discontinued 1 CAP PO 2 Times Per Week 8 February 04, 2015 5:36pm July 23, 2015 10:10am Atorvastatin (Lipitor) 20 MG tablet Discontinued 20 MG PO A t Bedtime February 04, 2015 5:3 7pm July 23, 2015 10:10am Lancets (Onetouch Delica Lancets) 1 EACH misc Discontinued 1 EACH MC Once Per Day 100 February 05, 2015 7:55am February 16, 2016 [...] MG PO 2 Times Per Day July 08 5 3:02pm October 28, 2015 12:04pm Citalopram [...] 2015 6:04pm Ergocalciferol (Vitamin D2) (Vitamin D2) 45817 UNIT ca psule Discontinued 1 CAP PO [...] Discontinued 100 MG PO Every 12 Hours October 15, 2015 8:47am October 16 7:41am [...] 2 TAB PO 2 Times Per Day October 28, 2015 12:04pm December 14, 2 [...] Discontinued 20 MG PO A t Bedtime December 24, 2015 8:3 8am August 04, [...] 2016 6:55pm Ergocalciferol (Vitamin D2) (Vitamin D2) 19075 UNIT ca psule Discontinued 1 CAP PO [...] 2016 5:39pm Ergocalciferol (Vitamin D2) (Vitamin D2) 84752 UNIT ca psule Discontinued 1 CAP PO 1 Time Per Week February 12, 2016 6:55pm April 072015 8:23am Sitagliptin (Januvia) 100 MG tablet Discontinued 1 TAB PO O nce Per Day February 12, 2016 6:55pm April 07, 2016 8:25am Lancets (Onetouch Delica Lancets) 1 EACH misc Discontinued 1 EACH MC Once Per Day 100 February 16, 2016 12:49pm January 17, 2017 [...] D2) (Vitamin D2) 50,000 UNITS capsule Discontinued 97887 UNITS PO 1 Time Per Week 4 April 14, 2016 8:59am October 04, 2016 6:46am Triamcinolone Acetonide Discontinued 1 APPLIC TP 2 Times Per Da y 80 May 18, 2016 1:01pm November 08, 2016 2:34pm APPLY UNDER BOT H [facility] AND [facility] Fluticasone Furoate-Vilanterol (Breo Ell ipta 100-25 Mcg Inh) 1 EACH blister with device Discontinued 1 PUFFS IH Once Per Day May 27, 2016 9:32am September 20, 2016 [...] 2 Times Per Day WI TH Meals June 08 6 7:09pm December 01, 2016 8:19am Aspirin Discontinued 325 MG PO Once Per Day June 08, 2016 7:10pm December 01, 2016 [...] 3 MLS IH Four Times a Day July 22, 2016 1:03pm November 23, 2016 9:01am VIA NEBULIZER Albuterol Sulfate Discontinued 2.5 MG NEB Every 4 hours July 22, 2016 2 :39pm November 08, 2018 5:33am Albuterol Sulfate Discontinued 2.5 MG NEB Every 4 hours July 22, 2016 2 :39pm November 08, [...] D2) (Vitamin D2) 50,000 UNITS capsule Discontinued 59244 UNITS PO 1 Time Per Week October [...] 60 October 19, 2016 8:16am January 18, 2 017 8:11am Repaglinide Discontinued 4 MG PO BID@1200,1800 60 October 19, 2016 8:51am January 18, 2017 6:30pm Ropinirole Discontinued 1 MG PO 2 Times Per Day 75 October 19, 2016 8:51am May 01, 2017 5:58pm AND 0.5 TAB AT 2PM. Triamcinolone Acetonide Discontinued 1 APPLIC TP 2 Times Per Da y November 08, 2016 2:34p m May 15, [...] WI TH Meals December 01, 2016 8:1 m February 15, 2017 7:33am Prednisone Discontinued 30 MG PO 2 Times Per Day 60 December 01, 2016 9:11am December 08, 2016 [...] PO 2 Times Per Day 60 December 08, 2016 9:09am December 17, 2016 2:59pm DIRECTED Immun Glob G(Igg)-Pro-Iga 0-50 (Hizentra) 1 GM/5 ML so lution Discontinued 75 MG SC 1 Time Per Week December 17, 2016 3:02pm May 15, 2017 10:46pm as per pickler helper Nitrofurantoin Monohyd/M-Cryst (Macrobid 100 Mg Capsule) [...] 12, 2017 4:40pm hold while taking cipro [id number] Atorvastatin (Lipitor) 20 MG tablet Discontinued 20 [...] Discontinued 2 SPRAYS NS Once Per Day 1 [place] 8th, 2017 9:57am March 252016 12:47am Amoxicillin-Pot Clavulanate [...] D2) (Vitamin D2) 50,000 UNITS capsule Discontinued 62642 UNITS PO 1 Time Per Week March 17, 2017 1:June 30, 2017 10:03am Atorvastatin Discontinued 40 MG [...] Discontinued 50 MG PO Once Per Day March 22, 2017 1:00pm April 04, 2017 [...] MC Before Meals & at Bedtime March 25 8:29am May 06, 2018 9:39am [...] 40 MG PO Once Per Day 120 April 08, 2017 12:39pm April 16, 2017 [...] PO Once Per Day May 27, 2017 5:11pm June 01, 2017 8:29am TAKE 2 TA BS [...] as per Jordyn Insulin Glargine U-300 Conc (Toujeo Solo star) [...] D2) (Vitamin D2) 50,000 UNITS capsule Discontinued 09411 UNITS PO 1 Time Per Week June 30, 2017 10:03am November 09, 2017 3:27pm [facility]-3 Acid Ethyl Esters (Lovaza*) 1 GM capsule [...] mg) days 2-5 Insulin Glargine U-300 Conc (Tourossi Solo star) 300 UNIT/1 ML insulin pen Discontinued 55 UNIT SQ At Bedtime October 13, 2017 11:01am November 09 3:26pm titrate up 5 units every week [...] SURGERY Esomeprazole Magnesium (Nexium) 22.3 mg capsule,delayed release(/EC) Discontinued 20 MG PO 2 Times Per [...] 26, 2017 12:51pm November 09, 2017 3:24pm [id number] dthen 10mgdaily OR DIRECTED Esomeprazole Magnesium (Nexium) [...] At Bedtime November 09, 2017 3:27pm A ugust 2017 11:44am Ergocalciferol (Vitamin D2) (Vitamin D2) 50,000 UNITS capsule Discontinued 70591 UNITS PO 1 Time Per Week November 09, 2017 3:27pm July 21, 019 8:54am Loratadine Discontinued 10 MG PO Once Per Day November 09, 2017 3:27pm J anuary 2018 8:54am Topiramate (Topamax) 50 MG tablet Di scontinued 50 MG PO O nce Per Day November 09, 2017 3:27p m December 21, 2017 10:26am [facility]-3 Acid Ethyl Esters (Lovaza*) 1 GM capsule Discontinued 2 CAP PO 2 Times Per Day November 09, 2017 3:27pm May 06, 2018 9:41am Prednisone Discontinued 10 MG PO Once Per Day November 09, 2017 3:30pm [facility] 2017 4:15pm OR DIRECTED Albuterol Sulfate (Ventolin Hfa) 200 PUF FS/18 GM HFA aerosol inhaler Discontinued 2 PUFFS INH Every 4 hours November 09, 2017 4:59pm July 21 019 8:54am Blood-Glucose Meter Discontinued 1 EACH [...] MG NEB 2 Times Per Day 60 December 06, 2017 12:22pm April 24, 2018 [...] Montelukast Discontinued 10 MG PO At Bedtime February 14, 2018 11:44am August 15, 2018 10:07pm Gabapentin Discontinued 300 MG PO Three times a day 90 February 28, 2018 11:56am October 22, 2018 5:19pm Pen Needle,Diabetic Dual Safty (Autoshie ld Duo Pen Needle) 1 EACH needle Discontinued 5 EACH MC Before Meals & at Bedtime March 27, 2018 3:28pm May 06, 2018 9:40am Amoxicillin-Pot Clavulanate (Augmentin 8 75-125 Tablet) 1 EACH tablet Discontinued 1 EACH PO 2 Times Per Day April 05, 2018 10:00am April 20, 2018 9:19am Alprazolam (Xanax) 0.25 MG tablet Di scontinued 0.25 MG PO Three times a day PRN 60 April 05, 2018 10:31am November 08, 2018 7:46am Reference #: [id number] Alprazolam (Xanax) 0.25 MG tablet Di scontinued 0.25 MG PO Three times a day PRN 60 April 05, 2018 10:31am December 26, 2018 6:28pm Reference #: [id number] Ropinirole Discontinued 1 MG PO 2 Times Per Day 75 April 17, 2018 3:36pm October 22, 2018 5:19pm AND 0.5 TAB AT 2PM. Topiramate Discontinued April 20, 2018 10:24am April 112017 1:12pm Prednisone Discontinued 40 MG PO Once Per Day 60 April 20, 2018 10:29am May 03, 2018 8:50pm [id number],10mg until recheck OR DIRECTED Fluticasone Furoate-Vilanterol (Breo [...] UNIT SQ Before Meals & at Bedtime 1 April 20, 2018 1:13pm October 22, 2018 [...] SURGERY WI TH SMALL SIP OF WATER Nystatin Discontinued 10 [...] G PO Fou r Times a Day June 06 8 4:12pm September 10, 2018 12:23pm Atorvastatin Discontinued 40 MG PO Once Per Day July 21, 2018 8:54am October 22, 2018 8:25pm Ranitidine Hcl Discontinued 300 MG PO At Bedtime 60 July 21, 2018 8:54am October 22, 2018 8:25pm Ergocalciferol (Vitamin D2) (Vitamin D2) 50,000 UNITS capsule Discontinued 41123 UNITS PO 1 Time Per Week 4 [...] 5:02pm 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 from e pickler helper Epinephrine Discontinued 0.3 MG SQ prn August 16, 2018 5:02pm September 12, 2018 11:53am 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 from e pickler helper Aspirin (Ecotrin) 81 MG tablet,delayed release [...] Discontinued 30 MG PO Once Per Day 90 September 20, 2018 3:46pm September 29, 2018 4:00pm DIRECTED Levofloxacin (Levaquin) 500 MG tablet Discontinued 500 MG PO Once Per Day 10 September 25, 2018 12:15pm September 29, 2018 4:01pm Azithromycin Discontinued 250 MG PO As Directed (Daily ) 6 September 29, 2018 3:5 2pm September 29, [...] 60 October 22, 2018 5:20pm December 26, 019 6:28pm TAKE MORNING DOSE MORNING OF [...] Discontinued 10 MG PO At Bedtime 30 October 22, 2018 8:25pm November 08, 2018 10:45am Montelukast Discontinued 10 MG PO At Bedtime 30 October 22, 2018 8:25pm December 26, 2018 6:28pm Ergocalciferol (Vitamin D2) (Vitamin D2) 50,000 UNITS capsule Discontinued 19071 UNITS PO 1 Time Per Week 4 October 22, 2018 8:25pm November 08 9 10:45am Ergocalciferol (Vitamin D2) (Vitamin D2) 50,000 UNITS capsule Discontinued 55028 UNITS PO 1 Time Per Week 4 October 22, 2018 8:25pm November 08 9 10:45pm Albuterol Sulfate (Ventolin Hfa) 200 PUF FS/18 GM HFA aerosol inhaler Discontinued 2 PUFFS INH Every 4 hours 1 October 22, 2018 8:25pm November 08 9 [...] At Bedtime October 22, 2018 8:28pm November 08 9 10:45am Insulin Glargine (Basaglar [...] December 01, 2018 3:09pm Blood Sugar Diagnostic (Onetouch Verio Test Strips) st rip Discontinued 0 .ROUTE .MEDSUPPLY 100 December 01, 2018 3:59pm December 26 9 6:28pm Use 1 test strip to test 4x per day Levofloxacin (Levaquin) 500 mg tablet Discontinued 500 MG PO daily December 18, 2018 10: 02am December 19, 2018 1:33pm Ergocalciferol (Vitamin D2) (Vitamin D2) 50,000 unit c apsule Discontinued 34362 UNIT PO 1 Time Per Week January 13, 2019 8:56pm July 14, 020 8:27am weekly on TUE. Esomeprazole Magnesium (Nexium) 20 mg ca psule,delayed release(DR/EC) Discontinued 20 MG PO 2 Times Per Day 60 January 13, 2019 8:57pm January 19 9 12:25pm Ranitidine Hcl Discontinued 300 MG PO At Bedtime January 13, 2019 9:00pm July 14, 2019 8:27am Blood Sugar Diagnostic (Onetouch Verio) strip Discontinued STRIP [facility] January 26, 2019 4:36pm January 26, 2019 4:38pm Use strips to test sugar before meals and at bedtime Blood Sugar Diagnostic (Onetouch Verio Test Strips) st rip Discontinued STRIP [facility] 100 January 26, 2019 4:37pm June 18, 2019 [...] 8:43am Lancets (Onetouch Delica Lancets) 33 gauge [facility] Active gauge [facility] June 01, 2019 3:57pm to be used AC and HS Blood Sugar Diagnostic (Onetouch Verio) strip Active STRIP [facility] June 18, 2019 1:48pm Use strips to test sugar before meals and at bedtime Gabapentin Discontinued 300 MG PO Three times a day June 18, 2019 1:48pm October 29, 2019 1:56pm Enalapril Maleate Active 2.5 MG PO Once Per Day July 14, 2019 8:26am Ergocalciferol (Vitamin D2) (Vitamin D2) 1,250 mcg (50,000 unit) capsule Active 99318 UNIT PO 1 Time Per Week July 14, 2019 8:26am weekly on TUE. Ranitidine Hcl Discontinued 300 MG PO At Bedtime July 14, 2019 8:27am October 29, 2019 [...] 40 MG PO 2 Times Per Day October 05, 2019 7: 42am October 29, 2019 1:56pm Alprazolam (Xanax) 0.25 mg tablet Active 0.25 MG PO Three times a day PRN October 15, 2019 12:10pm Reference #: [id number] Epinephrine (Epipen) 0.3 mg/0.3 mL auto-injector Active [...] from pharmacy,currently med unavailable in all strengths.[employer] Atorvastatin Discontinued 40 MG PO Every Evening [...] TAKE ONE TABLET BY MOUTH AT BEDTIME Problems Active Problems Medical Problem Onset Date Status Depression with anxiety Active DMITRI on CPAP Active Mycobacterium avium infection Active Common variable immunodeficiency Active Hypertension, essential Active Mild vitamin D deficiency Active Mixed hyperlipidemia A ctive Myasthenia gravis Acti ve Postmenopausal Active 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 Mixed stress and urge urinary incontinence Active Heme positive stool Ac tive Bronchiectasis Active [...] Fast Bacilli Culture November 03, 2019 completed HIPS BILAT 2 VIEW W/PELVIS June 28, 2019 12:44pm completed Xray Lumbar spine complete June 28, 2019 12:44pm completed 3D DIG MAMMO SCREEN BILAT May 122018 2:55pm completed Relevant Diagnostic Tests and/or Laboratory Data Laboratory Results Test Date/Time Result Interpretation Reference Range Result Comment Performing Site White Blood Count May 13, 2020 10:44am 6.8 10e3/uL 4.45-10.71 [facility], [address] [place] [address] White Blood Count February 01, 2020 9:10am 6.6 10e3/uL 4.45-10.71 [facility], [address] [place] [address] White Blood Count January 21, 2020 11:59am 5.7 10e3/uL 4.45-10.71 [facility], [address] [place] [address] White Blood Count June 29 9 2:55pm 8.1 10e3/uL 4.45-10.71 [facility], [address] [place] [address] Red Blood Count May 13, 2020 10:44am 3.95 10e6/uL 4.20-5.40 [facility], [address] [place] [address] Red Blood Count February 01, 2020 9:10am 3.94 10e6/uL 4.20-5.40 [facility], [address] [place] [address] Red Blood Count January 21, 2020 11:59am 3.76 10e6/uL 4.20-5.40 [facility], [address] [place] [id number] Red Blood Count June 29, 2019 2:55pm 3.92 10e6/uL 4.20-5.40 [facility], [address] [place] [address] Hemoglobin May 13, 2020 10:44am 12.7 g/dL 10.7-15.4 [facility], [address] [place] [address] Hemoglobin February 01, 2020 9:10am 12.7 g/dL 10.7-15.4 [facility], [address] [place] [address] Hemoglobin January 21, 2020 11:59am 12.2 g/dL 10.7-15.4 [facility], [address] [place] [address] Hemoglobin June 29, 2019 2:55pm 12.2 g/dL 10.7-15.4 [facility], [address] [place] [address] Hematocrit May 13, 2020 10:44am 41.4 % 37-47 [facility], [address] [place] [address] Hematocrit February 01, 2020 9:10am 39.0 % 37-47 [facility], [address] [place] [address] Hematocrit January 21, 2020 11:59am 37.4 % 37-47 [facility], [address] [place] [address] Hematocrit June 29, 2019 2:55pm 37.6 % 37-47 [facility], [address] [place] [address] Mean Corpuscular Volume May 10:44am 104.8 fl 80-96 [facility], [address] [place] [address] Mean Corpuscular Volume January 31, 020 9:10am 99.0 fl 80-96 [facility], [address] [place] [address] Mean Corpuscular Volume January 20, 2 020 11:59am 99.5 fl 80-96 [facility], [address] [place] [address] Mean Corpuscular Volume June 2:55pm 95.9 fl 80-96 [facility], [address] [place] [address] 10561 Mean Corpuscular Hemoglobin May 13, 2020 10:44am 32.2 pg 27-31 [facility], [address] [place] [address] 94349 Mean Corpuscular Hemoglobin January 9:10am 32.2 pg 27-31 [facility], [address] [place] [address] Mean Corpuscular Hemoglobin January 11:59am 32.4 pg 27-31 [facility], [address] [place] [address] Mean Corpuscular Hemoglobin June 29, 2019 2:55pm 31.1 pg 27-31 [facility], [address] [place] [address] Mean Corpuscular Hemoglobin Concent May 13, 2020 10:44am 30.7 g/dl 3337 [facility], [address] [place] [address] Mean Corpuscular Hemoglobin Concent February 01, 2020 9:10am 32.6 g/dl [facility], [address] [place] [address] Mean Corpuscular Hemoglobin Concent January 21, 2020 11:59am 32.6 g/dl 37 [facility], [address] [place] [address] Mean Corpuscular Hemoglobin Concent June 29, 2019 2:55pm 32.4 g/dl [facility]37 [facility], [address] [place] [address] Red Cell Distribution Width May 13, 2020 10:44am 14 % 11-15 [facility], [address] [place] [address] Red Cell Distribution Width January 9:10am 13 % 11-15 [facility], [address] [place] [address] Red Cell Distribution Width January 11:59am 14 % 11-15 [facility], [address] [place] [address] Red Cell Distribution Width June 29, 2019 2:55pm 14 % 11-15 [facility], [address] [place] [address] Platelet Count May 13, 2020 10:44am 288 10e3/ul 130-472 [facility], [address] [place] [address] Platelet Count February 01, 2020 9:10am 282 10e3/ul 130-472 [facility], [address] [place] [address] Platelet Count January 21, 2020 11:59am 269 10e3/ul 130-472 [facility], [address] [place] [address] Platelet Count June 29, 2019 2:55pm 313 10e3/ul 130-472 [facility], [address] [place] [address] 66565 Mean Platelet Volume May 13 10:44am 9.3 fl 9.1-13.1 [facility], [address] [place] [address] Mean Platelet Volume February 01, 2020 9:10a m 8.9 fl 9.1-13.1 [facility], [address] [place] [address] Mean Platelet Volume January 21, 2020 11:59am 8.9 fl 9.1-13.1 [facility], [address] [place] [address] Mean Platelet Volume June 29, 2019 2:55pm 9.2 fl 9.1-13.1 [facility], [address] [place] [address] 47115 Neutrophils (%) (Auto) May 13, 2020 10:44am 60.1 % 4177 [facility], [address] [place] [address] 32480 Neutrophils (%) (Auto) January 31 9:10am 51.3 % [address] [facility] [facility], [address] [place] [address] 12324 Neutrophils (%) (Auto) January 20 11:59am 48.5 % 4177 [facility], [address] [place] [address] 76873 Neutrophils (%) (Auto) June 2:55pm 58.0 % 4177 [facility], [address] [place] [address] 95891 Absolute Neutrophil May 13 10:44am 4.1 # 1.7-7.6 [facility], [address] [place] [address] 71574 Absolute Neutrophil February 01, 2020 9:10am 3.4 # 1.7-7.6 [facility], [address] [place] [address] 80733 Absolute Neutrophil January 21, 2020 11:59a m 2.7 # 1.7-7.6 [facility], [address] [place] [address] 27023 Absolute Neutrophil June 29 019 2:55pm 4.7 # 1.7-7.6 [facility], [address] [place] [address] 93310 Lymphocytes (%) (Auto) May 13, 2020 10:44am 28.9 % 14-46 [facility], [address] [place] [address] 97003 Lymphocytes (%) (Auto) January 31 9:10am 36.3 % 14-46 [facility], [address] [place] [address] 05729 Lymphocytes (%) (Auto) January 20 11:59am 40.0 % 14-46 [facility], [address] [place] [address] 64891 Lymphocytes (%) (Auto) June 2:55pm 30.5 % 14-46 [facility], [address] [place] [address] 12099 Lymphocytes # (Auto) May 13 10:44am 2.0 # 0.6-4.6 [facility], [address] [place] [address] 36630 Lymphocytes # (Auto) February 01, 2020 9:10a m 2.4 # 0.6-4.6 [facility], [address] [place] [address] 91925 Lymphocytes # (Auto) January 21, 2020 11:59am 2.3 # 0.6-4.6 [facility], [address] [place] [address] 52120 Lymphocytes # (Auto) June 29, 2019 2:55pm 2.5 # 0.6-4.6 [facility], [address] [place] [address] 11256 Monocytes (%) (Auto) May 13 10:44am 7.9 % 4-12 [facility], [address] [place] [address] 08730 Monocytes (%) (Auto) February 01, 2020 9:10a m 8.4 % 4-12 [facility], [address] [place] [address] 47429 Monocytes (%) (Auto) January 21, 2020 11:59am 7.6 % 4-12 [facility], [address] [place] [address] 32936 Monocytes (%) (Auto) June 29, 2019 2:55pm 8.4 % 4-12 [facility], [address] [place] [address] 16066 Monocytes # May 13, 2020 10:44am 0.5 # 0.2-1.2 [facility], [address] [place] [address] 47461 Monocytes # February 01, 2020 9:10am 0.6 # 0.2-1.2 [facility], [address] [place] [address] 36712 Monocytes # January 21, 2020 11:59am 0.4 # 0.2-1.2 [facility], [address] [place] [address] 68762 Monocytes # June 29, 2019 2:55pm 0.7 # 0.2-1.2 [facility], [address] [place] [address] 91754 Eosinophils (%) (Auto) May 13, 2020 10:44am 2.0 % 0-7 [facility], [address] [place] [address] 66658 Eosinophils (%) (Auto) January 31 9:10am 2.4 % 0-7 [facility], [address] [place] [address] 72726 Eosinophils (%) (Auto) January 20 11:59am 2.3 % 0-7 [facility], [address] [place] [address] 61012 Eosinophils (%) (Auto) June 2:55pm 2.2 % 0-7 [facility], [address] [place] [address] 56539 Absolute Eosinophils (CBC) May 13, 2020 10:44am 0.1 # 0.0-0.5 [facility], [address] [place] [address] 57954 Absolute Eosinophils (CBC) January 9:10am 0.2 # 0.0-0.5 [facility], [address] [place] [address] 62911 Absolute Eosinophils (CBC) January 11:59am 0.1 # 0.0-0.5 [facility], [address] [place] [address] 48814 Absolute Eosinophils (CBC) June 29, 2019 2:55pm 0.2 # 0.0-0.5 [facility], [address] [place] [address] 49959 Basophils (%) (Auto) May 13 10:44am 0.7 % 0.4-1.3 [facility], [address] [place] [address] 81461 Basophils (%) (Auto) February 01, 2020 9:10a m 0.8 % 0.4-1.3 [facility], [address] [place] [address] 07399 Basophils (%) (Auto) January 21, 2020 11:59am 1.1 % 0.4-1.3 [facility], [address] [place] [address] 66250 Basophils (%) (Auto) June 29, 2019 2:55pm 0.5 % 0.4-1.3 [facility], [address] [place] [address] 69044 Absolute Basophils (CBC) May 10:44am 0.1 # 0.0-0.2 [facility], [address] [place] [address] Absolute Basophils (CBC) February 01, 2020 9:10am 0.1 # 0.0-0.2 [facility], [address] [place] [address] 53114 Absolute Basophils (CBC) January 21, 2020 11:59am 0.1 # 0.0-0.2 [facility], [address] [place] [address] 23981 Absolute Basophils (CBC) June 292018 2:55pm 0.0 # 0.0-0.2 [facility], [address] [place] [address] 81715 Immature Granulocyte % (Auto) [facility] 2019 10:44am 0.4 % 0-2 [facility], [address] [place] [address] 39899 Immature Granulocyte % (Auto) January 092019 9:10am 0.8 % 0-2 [facility], [address] [place] [address] 65966 Immature Granulocyte % (Auto) January 082019 11:59am 0.5 % 0-2 [facility], [address] [place] [address] 94997 Immature Granulocyte % (Auto) [facility] 2018 2:55pm 0.4 % 0-2 [facility], [address] [place] [address] 43671 Absolute Immature Granulocyte (auto May 13, 2020 10:44am 0.0 # 0-0.1 [facility], [address] [place] [address] 63370 Absolute Immature Granulocyte (auto February 01, 2020 9:10am 0.1 # 0-0.1 [facility], [address] [place] [address] 99838 Absolute Immature Granulocyte (auto January 21, 2020 11:59am 0.0 # 0-0.1 [facility], [address] [place] [address] 03817 Absolute Immature Granulocyte (auto June 29, 2019 2:55pm 0.0 # 0-0.1 [facility], [address] [place] [address] 56738 Add Manual Differential May 10:44am No [facility], [address] [place] [address] Add Manual Differential January 31 9:10am No [facility], [address] [place] [address] Add Manual Differential January 20 11:59am No [facility], [address] [place] [address] 56317 Add Manual Differential June 2:55pm No [facility], [address] [place] [address] 44339 Blood Urea Nitrogen May 13 10:44am 13 mg/dL 04-02 [facility], [address] [place] [address] Blood Urea Nitrogen February 01, 2020 9:10am 12 mg/dL 04-02 [facility], [address] [place] [address] Blood Urea Nitrogen January 21, 2020 11:59a m 12 mg/dL 04-02 [facility], [address] [place] [address] Sodium Level May 13, 2020 10:44am 141 mmol/L 132-146 [facility], [address] [place] [address] Sodium Level February 01, 2020 9:10am 142 mmol/L 132-146 [facility], [address] [place] [address] Sodium Level January 21, 2020 11:59am 142 mmol/L 132-146 [facility], [address] [place] [address] Potassium Level May 13, 2020 10:44am 5.1 mmol/L 3.5-5.5 [facility], [address] [place] [address] Potassium Level February 01, 2020 9:10am 4.6 mmol/L 3.5-5.5 [facility], [address] [place] [address] Potassium Level January 21, 2020 11:59am 4.2 mmol/L 3.5-5.5 [facility], [address] [place] [address] 57120 Chloride Level May 13, 2020 10:44am 112 mmol/l 99-109 [facility], [address] [place] [address] 08827 Chloride Level February 01, 2020 9:10am 114 mmol/l 99-109 [facility], [address] [place] [address] 98801 Chloride Level January 21, 2020 11:59am 112 mmol/l 99-109 [facility], [address] [place] [address] 73828 Carbon Dioxide Level May 13 10:44am 22 mmol/l -31 [facility], [address] [place] [address] Carbon Dioxide Level February 01, 2020 9:10a m 22 mmol/l - [facility], [address] [place] [address] Carbon Dioxide Level January 21, 2020 11:59am 21 mmol/l -31 [facility], [address] [place] [address] Anion Gap May 13, 2020 10:44am 12 mmol/l 8-16 [facility], [address] [place] [address] Anion Gap February 01, 2020 9:10am 11 mmol/l 8-16 [facility], [address] [place] [address] Anion Gap January 21, 2020 11:59am 13 mmol/l 8-16 [facility], [address] [place] [address] 30593 Glucose Level May 13, 2020 10:44am 80 mg/dL 74-106 [facility], [address] [place] [address] 52487 Glucose Level February 01, 2020 9:10am 93 mg/dL 74-106 [facility], [address] [place] [address] Glucose Level January 21, 2020 11:59am 99 mg/dL 74-106 [facility], [address] [place] [address] 26296 Creatinine May 13, 2020 10:44am 0.9 mg/dL 0.5-1.1 [facility], [address] [place] [address] Creatinine February 01, 2020 9:10am 0.9 mg/dL 0.5-1.1 [facility], [address] [place] [address] Creatinine January 21, 2020 11:59am 0.8 mg/dL 0.5-1.1 [facility], [address] [place] [address] 23332 Glomerular Filtration Rate Calc Nove mb2019 10:44am Greater than 60 ml/min ABOVE 60 [facility], [address] [place] [address] Glomerular Filtration Rate Calc February 01, 2020 9:10am Greater than 60 ml/min ABOVE 60 [facility], [address] [place] [address] 08814 Glomerular Filtration Rate Calc January 21, 2020 11:59am Greater than 60 ml/min ABOVE 60 [facility], [address] [place] [address] 83494 Alanine Aminotransferase (ALT/SGPT) May 13, 2020 10:44am 22 U/L 49 [facility], [address] [place] [address] Alanine Aminotransferase (ALT/SGPT) February 01, 2020 9:10am 20 U/L 49 [facility], [address] [place] [address] Alanine Aminotransferase (ALT/SGPT) January 21, 2020 11:59am 21 U/L 1049 [facility], [address] [place] [address] 84810 Aspartate Amino Transf (AST/SGOT) No vember 2019 10:44am 19 U/L 0-33 [facility], [address] [place] [address] Aspartate Amino Transf (AST/SGOT) Ju ly 2019 9:10am 13 U/L 0-33 [facility], [address] [place] [address] 90741 Aspartate Amino Transf (AST/SGOT) Ju ly 2019 11:59am 15 U/L 0-33 [facility], [address] [place] [address] 29093 Alkaline Phosphatase May 13 10:44am 132 U/L 45-129 [facility], [address] [place] [address] 38243 Alkaline Phosphatase February 01, 2020 9:10a m 119 U/L 45-129 [facility], [address] [place] [address] 75927 Alkaline Phosphatase January 21, 2020 11:59am 122 U/L 45-129 [facility], [address] [place] [address] 72492 Amylase Level February 01, 2020 9:10am 58 U/L 30-118 [facility], [address] [place] [address] 80094 Lipase February 01, 2020 9:10am 147 U/L 73-393 [facility], [address] [place] [address] 31254 Calcium Level May 13, 2020 10:44am 9.2 mg/dL 8.5-10.1 [facility], [address] [place] [address] Calcium Level February 01, 2020 9:10am 8.6 mg/dL 8.5-10.1 [facility], [address] [place] [address] Calcium Level January 21, 2020 11:59am 8.8 mg/dL 8.5-10.1 [facility], [address] [place] [address] Total Bilirubin May 13, 2020 10:44am 0.4 mg/dL 0.3-1.2 [facility], [address] [place] [address] Total Bilirubin February 01, 2020 9:10am 0.2 mg/dL 0.3-1.2 [facility], [address] [place] [address] Total Bilirubin January 21, 2020 11:59am 0.2 mg/dL 0.3-1.2 [facility], [address] [place] [address] Direct Bilirubin February 01, 2020 9:10am 0.1 mg/dL 0.0-0.2 [facility], [address] [place] [address] Albumin May 13, 2020 10:44am 3.5 g/dL 3.2-4.8 [facility], [address] [place] [address] Albumin February 01, 2020 9:10am 3.4 g/dL 3.2-4.8 [facility], [address] [place] [address] Albumin January 21, 2020 11:59am 3.4 g/dL 3.2-4.8 [facility], [address] [place] [address] Serum Total Protein May 13 10:44am 7.5 g/dL 5.7-8.2 [facility], [address] [place] [address] Serum Total Protein February 01, 2020 9:10am 7.3 g/dL 5.7-8.2 [facility], [address] [place] [address] Serum Total Protein January 21, 2020 11:59a m 7.2 g/dL 5.7-8.2 [facility], [address] [place] [address] Triglycerides Level May 13 10:44am 134 mg/dL 0-150 [facility], [address] [place] [address] Triglycerides Level January 21, 2020 11:59a m 107 mg/dL 0-150 [facility], [address] [place] [address] 24086 Cholesterol Level May 13, 2020 10:44am 169 mg/dL 120-200 [facility], [address] [place] [address] 40875 Cholesterol Level January 21, 2020 11:59am 175 mg/dL 120-200 [facility], [address] [place] [address] 67166 HDL Cholesterol May 13, 2020 10:44am 85 mg/dL HDL Less than 40 mg/dL: Major risk for CHDHDL Greater than 59 mg/dL: Low risk for CHD [facility], [address] [place] [address] 50659 HDL Cholesterol January 21, 2020 11:59am 82 mg/dL HDL Less than 40 mg/dL: Major risk for CHDHDL Greater than 59 mg/dL: Low risk for CHD [facility], [address] [place] [address] 56441 LDL Cholesterol, Calculated May 13, 2020 10:44am 58 mg/dL 0-100 [facility], [address] [place] [address] 43184 LDL Cholesterol, Calculated January 11:59am 72 mg/dL 0-100 [facility], [address] [place] [address] 27465 Stool Helicobacter pylori Antigen Ju 2019 11:45am Negative Negative Performed at: - [facility] [address] [id number] Director: Constanza Saxena MD, Phone: [phone] [facility] , [address] [place] [phone] Immunoglobulin G February 01, 2020 9:10am 1159 mg/dL Performed at: [facility] [address] [id number] Director: Constanza Saxena MD, Phone: [phone] [facility] , [address] [place] [phone] Immunoglobulin G June 29, 2019 2:55p m 1045 mg/dL Performed at: [facility] [place] [id number] Director: Constanza Saxena MD, Phone: [phone] [facility] , [address] [place] [phone] Vitamin D 25-Hydroxy May 13 10:44am 60 ng/mL Vitamin D Status 25-OH Vitamin D:Deficiency: <20 ng/mLInsufficiency: 20 - 29 ng/mLOptimal: > or = 30 ng/mLFor 25-OH Vitamin D testing on patients onD2-supplementation and patients for whom quantitationof D2 and D3 fractions is required, the QuestAssureD(TM)25- OH VIT D, (D2,D3), LC/MS/MS is recommended: ordercode 33772 (patients >2yrs).See Note 1Note 1For additional information, please refer [email or web address] (formerly [employer])/faq/[email or web address](This link is being provided for informational/educational purposes only.)THIS TEST WAS PERFORMED AT:[employer] [address]AHSAN CANSECO MD [facility] Vitamin D 25-Hydroxy January 21, 2020 11:59am 51.6 ng/mL Vitamin D deficiency has been defined by the [place] of[employer] and an Endocrine Society practice guideline as alevel of serum 25-OH vitamin D less than 20 ng/mL (1,2).The Endocrine Society went on to further define vitamin Dinsufficiency as a level between 21 and 29 ng/mL (2).1. IOM ([place] [employer]). 2010. Dietary reference intakes for calcium and D. [place]: The National Academies Press.2. Deena MF, Theodore [place], Valerie CHERRY, et al. Evaluation, treatment, and prevention of vitamin D deficiency: an Endocrine Society clinical practice guideline. JCEM. 2010; 96(7):1911-30.Performed at: [facility] - [facility] [address] [id number] Director: Constanza Saxena MD, Phone: [phone] [facility] , [address] [facility] [address] Coronavirus (COVID-19)(PCR) October 11:50am Not detected Not Detec mimi Testing was performed using the bárbara(R) SARS-CoV-2 test.This test was developed and its performance characteristicsdetermined by [employer]. This test has not beenFDA cleared or approved. This test has been authorized byA under an Emergency Use Authorization (EUA). This testis only authorized for the duration of time the declarationthat circumstances exist justifying the authorization ofthe emergency use of in vitro diagnostic tests fordetection of SARS-CoV-2 virus and/or diagnosis of COVID-19infection under section 564(b)(1) of the Act, 21 U.S.C.360bbb-3(b)(1), unless the authorization is terminated orrevoked sooner.Performed at: [facility] - [facility] [address] [id number] Director: Constanza Saxena MD, Phone: [phone] [facility] , [address] [facility] [address] Hemoglobin A1c May 13, 2020 10:44am 6.6 [...] glucose control. 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 Some danger of hypoglycemic reaction in Type I diabetics.Some glucose intolerant individuals and "Sub Clinical"diabetics may demonstrate HGBA1C levels in this area. [facility], [address] [place] [address] Hemoglobin A1c January 21, 2020 11:59am 7.2 [...] glucose control. * High risk of developing longterm complications such asretinopathy, nephropathy, neuropathy, cardiopathy, etc. Some danger of hypoglycemic reaction in Type I diabetics.Some glucose intolerant individuals and "Sub Clinical"diabetics may demonstrate HGBA1C levels in this area. [facility], [address] [place] [id number] Estimated Average Glucose (eAG) Loren 2019 10:44am 143 mg/dl An A1C of 7% - the goal of diabetic ther apy - is equivalentto an EAG of 154 mg/dl. [facility], [address] [place] [id number] Estimated Average Glucose (eAG) January 21, 2020 11:59am 160 mg/dl An A1C of 7% - the goal of diabetic therapy - is equivalentto an EAG of 154 mg/dl. [facility], [address] [place] [id number] Microbiology Results Procedure Source Result Collection Date/Time Result Date/Time Result Comment Performing Site Stool Occult Blood (TYLER) Stool April 16, 2020 12:19pm April 12:54pm [facility], [address] [place] [address] AFB Specimen Processing Tissue Sputu m, Expectorate sputum November 03, 2019 8:06am November 04, 2019 3:06pm [facility] , [address] [facility] [address] Acid Fast Bacilli Smear Sputum, Expe ctorate sputum November 03, 2019 8:06am November 04, 2019 3:06pm [facility] [address], [address] [facility] [address] Acid Fast Bacilli Culture Sputum, Ex pectorate sputum November 03, 2019 8:06am December 18, 2019 3:07pm [facility] [address], [address] [facility] [id number] Diagnostic Imaging Reports Report Dictated Date/Time Dictated By Status Radiology Report June 01, 2019 8:19p m Kalani Vernon MD completed [facility] [address] [place] [address] [phone] NAME SEX PT STATUS ACCOUNT NUMBER ISIDRA CONNOR REG REF [id number] ORDERING PHYSICIAN LOCATION MEDICAL RECORD NO. Lindsay Chapman DO MAMMO [id number] ATTENDING PHYSICIAN DATE OF DATE OF EXAM/TIME Lindsay Chapman DO 1960 06/[birth year]/191454 TYPE / EXAM 3D DIG MAMMO SCREEN BILAT REASON FOR EXAM Screening for breast cancer LAST CLINICAL BREAST EXAM: 2017 FIVE YEAR RISK: 6.6% LIFETIME RISK: 31.1% FAMILY HISTORY OF BREAST CARCINOMA: Sisters x2 COMPARISON 05/16/2018, 04/20/2017, 03/02/2016 2D bilateral digital mammogram in the CC and MLO projections was performed with supplemental 3D tomosynthesis of both breasts. FINDINGS: Craniocaudad and oblique lateral views of the breasts were obtained. The breasts are primarily of fat density. There is no dominant mass, suspicious clustered microcalcification or architectural distortion. IMPRESSION: No mammographic evidence of malignancy. Yearly screening recommended. OVERALL FINAL ASSESSMENT OF FINDINGS BI-RADS 1 - Negative OVERALL FINAL ASSESSMENT OF THE BREAST COMPOSITION Breast Density Classification: A Description: The breasts are almost entirely fatty. This mammogram was read with the assistance of Shirley, an FDA-approved computer- aided detection system for mammography. Reported By Kalani Vernon MD on 06/01/192018 Signed By Kalani Vernon MD on 06/01/192026 Date Time CC: Kalani Vernon MD; Lindsay Chapman DO Techn: BAKLE Trans Dt/Tm: Trans by: DT Prt Dt/Tm: [id number]: Total DLP = 0.00 mGy-cm 0851-5667: Total Radiation Dose = 0.0000 mSv Lifetime Dose: 25.9895 mSv Radiology Report June 28, 2019 1:12p michael Lynne MD completed [facility] [address] [place] [id number] [phone] NAME SEX PT STATUS ACCOUNT NUMBER ISIDRA CONNOR REG REF [id number] ORDERING PHYSICIAN LOCATION MEDICAL RECORD NO. Lesli ATKINSON-C Elkin [facility] [id number] ATTENDING PHYSICIAN DATE OF DATE OF EXAM/TIME Lindsay Chapman DO 1960 06/28/191243 TYPE / EXAM HIPS BILAT 2 VIEW W/PELVIS REASON FOR EXAM chronic hip/low back pain Procedure: Bilateral hips Clinical indication: Chronic hip and low back pain Comparison: None Technique: 5 view(s) Findings: No fractures are seen. Spurring at the superolateral aspect of both hips is consistent with degenerative disease. The soft tissues are normal. Bone mineralization is normal. Impression: Findings of both hips consistent with degenerative disease Reported By Ez Lynne MD on 06/28/191311 Signed By Ez Lynne MD on 06/28/193 Date Time CC: Ez Lynne MD; Lindsay Chapman DO Techn: CARRC Trans Dt/Tm: Trans by: DT Prt Dt/Tm: [id number]: Total DLP = 0.00 mGy-cm Fluoroscopy Time (in secs): Radiology Report June 28, 2019 1:14p m Ez Lynne MD [facility] [address] [place] [id number] [phone] NAME SEX PT STATUS ACCOUNT NUMBER ISIDRA CONNOR REG REF [id number] ORDERING PHYSICIAN LOCATION MEDICAL RECORD [facility]. [id number]END[facility] PHYSICIAN DATE OF DATE OF EXAM/TIME Lindsay Chapman DO 1960 06/28/191243 TYPE / EXAM Xray Lumbar spine complete REASON FOR EXAM chronic low back/hip pain Procedure: Lumbar spine. Clinical indication: Chronic low back and hip pain Comparison: None Technique: 5 view(s). Findings: No fractures are seen. Eburnation to the L4-5 and L5-S1 facet joints is consistent with degenerative disease, resulting in a minimal anterolisthesis of L4. . Alignment of the anterior and posterior elements is within normal limits. The soft tissues are unremarkable. Anterior osteophyte formation in lower thoracic spine in the mid and lower lumbar spine is secondary to degenerative disc disease.. Impression: : Findings at the L4-5 and L5-S1 facet joints consistent with degenerative disease resulting in minimal anterolisthesis of L4 Multilevel degenerative disc disease Reported By Ez Lynne MD on 06/28/19 1314 Signed By Ez Lynne MD on 06/28/19 1320 Date Time CC: Ez Lynne MD; Lindsay Chapman DO Techn: CARRC Trans Dt/Tm: Trans by: DT Prt Dt/Tm: [id number]: Total DLP = 0.00 mGy-cm Fluoroscopy Time (in secs): Radiology Report January 31, 2020 9:06am Manjinder Walters MD completed [facility] [address] [place] [address] [phone] NAME SEX PT STATUS ACCOUNT NUMBER ISIDRA CONNOR REG REF [id number] ORDERING PHYSICIAN LOCATION MEDICAL RECORD NO. Yunier Mendoza [id number] ATTENDING PHYSICIAN DATE OF DATE OF EXAM/TIME [...] 31, 2020 2:42pm Manjinder Walters MD completed [place] [id number] [place] [address] [phone] NAME SEX PT STATUS ACCOUNT NUMBER ISIDRA CONNOR REG REF [id number] ORDERING PHYSICIAN LOCATION MEDICAL RECORD NO. Yunier Mendoza [id number] ATTENDING PHYSICIAN DATE OF DATE OF EXAM/TIME [...] 2019 8:20am Health Care Proxy Phone Number [phone] December 31, 2019 8:20am Living Will No April 162019 1:23pm Chief Complaint and Reason for Visit Chief Complaint SCREEN Asthma follow-up CHRONIC HIP/BACK PAIN D83.9 Call First Appt R05 Anxiety Anxiety follow-up A31.0,J44.9 Diabetes follow-up E78.5,E11.9,E55.9 PAIN R10.13,D83.9 Pre-op visit (general surgery) Annual Physical R19.5 E78.2,R19.5,E11.8,E55.9,A31.0,K92.1 Diabetes Reason for Visit Common variable imm unodeficiency Depression with anxiety Mild vitamin D deficiency Mixed hyperlipidemia Myasthenia gravis 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 Depression [...] hyperlipidemia Type 2 diabetes mellitus with complications Encounters Encounter Location(s) Ar rival/Admit Date Discharge/Depart Date Provider(s) Registered Referred -Mammography June 01, 2019 2:49pm Lindsay hanson Departed Physician/Provider Office Visit -[facility] June 26, 2019 4:00pm June 26, 2019 5:36pm Lindsay Chapman Registered Referred -Radiology June 28, 2019 12:13pm Lesli Elkin Registered Referred -Laboratory June 29, 2019 2:46pm Deniz Maldonado i, MD Departed Physician/Provider Office Visit -[facility] October 12, 2019 11:49am October 12, 2019 11:55am Meng Vasquez MD Registered Referred -Laboratory October 12, 2019 1:03pm Meng Vasquez MD Departed Physician/Provider Office Visit -[facility] October 15, 2019 9:48am October 15, 2019 12:04pm Lindsay Chapman Departed Physician/Provider Office Visit -[facility] October 29, 2019 12:49pm October 29, 2019 2:49pm Lindsay Chapman Registered Referred -Laboratory November 03, 2019 7:28am Dania Benites MD Departed Physician/Provider Office Visit -[facility] December 24, 2019 12:47pm December 24, 2019 2:32pm Lindsay Chapman Registered Referred -Laboratory January 21, 2020 11:49am Lindsay Chapman Registered Referred -Ultrasound January 31, 2020 7:39am KEVIN Almanza Registered Referred -Laboratory February 01, 2020 8:55am Deniz Fields MD Departed Physician/Provider Office Visit -[facility] March 21, 2020 2:15pm Swathie 2019 10:59pm Lindsay Chapman Departed Physician/Provider Office Visit -[facility] April 14, 2020 7:50am April 9:36am Lindsay Chapman Registered Referred -Lab Drop Off April 16, 2020 11:18am Lindsay hanson Registered Referred -Laboratory May 13, 2020 10:29am Dania Benites MD Departed Physician/Provider Office Visit -[facility] May 30, 2020 3:21pm May 30, 2020 11:59pm Lindsay Ari Recent Diagnosis Onset Date Common variable immunodeficiency Depression with anxiety Mild vitamin D deficiency Mixed hyperlipidemia Myasthenia gravis 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 Depression [...] hyperlipidemia Type 2 diabetes mellitus with complications Assessments Diagnosis Onset Date Res olution Status Common variable immunodeficiency chronic Depression with anxiety chronic Mild vitamin D deficiency chronic Mixed hyperlipidemia chronic Myasthenia gravis chronic Mycobacterium avium infection chronic Type 2 diabetes mellitus with complications chronic Mixed stress and urge urinary incontinence [...] Type 2 diabetes mellitus with complications chronic Family History Relationship Condition A ge at [...] Event Date Not Given Reason Dose Number [employer] Lot Number Vaccine Information Statement (VIS) Deta [...] er 2015 influenza vaccine, inactivated Novem wicho 2019 [id number] influenza vaccine, inactivated [facility] 2019 pneumococcal polysaccharide PPV23 vaccine September 02, 2015 [id number] tetanus, diphtheria, acell pertussis 7yrs &up March 11, 2009 tetanus, diphtheria, acell pertussis 7yrs &up December 24, 2019 [id number] Mental Status No Mental Status Information Available Medical Equipment No Medical Equipment Information available Insurance Providers Guarantor ISIDRA CONNOR Address [address] [place] [address] Contact Info. Home Phone: Payer Policy Id Coverage Id Subscriber's Name Subscriber Id Effective Date Expiration Date [facility] [id number] ISIDRA CONNOR [id number] 2017 MEDICAID Self Pay Self N/A [facility] MEDICAID [id number] ISIDRA CONNOR [id number] Plan of Treatment For long as I [...] She has been back to see her apprentice architect partly because of her gastroparesis and partly [...] really cannot afford She does follow with pickler helper so she can certainly discuss her breakthrough sym ptoms with the pickler helper but I think they are likely due to the fact she tried to come off Flon ase does not really like using a nose spray but within about a week of stopping it her symptoms flar ed I encouraged her to go back on it and keep taking her Singulair and Claritin continues to take IV IG and injections [...] neuropathy so we did discuss fall prevention. Sh joaquin is due for bone density in the [...] of treatment with triple antibiotics next m onth. I want her to do another stool [...] has extensive ca re team. She sees [facility] for her ophthalmology care and recent cataract surgery. She sees Dr. andrade and Dr. Ambriz for treatment of her MAC and management of her recurrent pneumonia an d persistent exacerbation of asthma. She sees Dr. Kenney [facility] in [place] for her common variable immune deficiency syndrome [...] 2018 when s he was hospitalized at [facility] we are calling for that echo result. I manage her hyperlip idemia her diabetes her vitamin D deficiency her anxiety and depression and she is due for diabetes care next month so have ordered labs she also sees ENT in [place] and has had sinus surgery I felisha katz plan on seeing her back next month [...] 2 to 3 years persistently flared [facility] sometimes monthly with huge 60 mg doses chronically of prednisone erlin ng required in order to control her symptoms however approximately 9 months ago it was finally discov ered that the issue was Mycobacterium avium. Dr. Ambriz her cleat maker and Hans have worked to [facility] and her acute multi lobar infiltrates have [...] methotrexate to treat her myasthenia gravis. Her pickler helper does have her on wee kly [...] will repeat routine labs before her diabe [facility] care visit with me in 6 weeks [...] can have blood sugar monitored at the [facility] and given Humalog coverage as [...] neuropathy and her myasthenia gravis. She does [facility] with GI for her reflux and gastroparesis complications.Full diabetes care next time Nasal congestion, Intermittent cough negative COVID test earlier this month some of it is likely her baseline asthma and allergies she is following with infectious disease who has b ack 3- slides for her MAC and she is on triple baseline antibiotic for her MAC, she also follows w ith her pickler helper pulmonary Dr. Ambriz and gets weekly [...] upper endoscopy she is due to fo brenw-up with Dr. Franco next month and they [...] crying. She last had called both her cleat maker and her infect ious disease doctor leaving [...] her on additional antibiotic and predni sone. [place] that if she did get COVID she [...] talk to her brother who is a director acute other than talking to him on the [...] she has follow-up appoin tments with her pickler helper in about 2 weeks and several [...] her unde rgarments did come from the [employer] She says things are status quo she [...] Zantac at bedtime. Insurance will cover Pepcid I am again in review of her home health diagnoses and there are again numerous i ncorrect diagnoses from her specialist and these probably generate the incorrect diagnoses from [facility]. Currently her primary diagnosis is Mycobacterium avium pneumonia. Her secondary diagnosis is persistent asthma she has been steroid-dependent majority of the last 2 years in the last 2 years probably 80% of the time she has been steroid and oxygen dependent just in the past week she has been able to come off both prednisone and oxygen and is starting to feel significantly better so I do not think I would change her category but if she stays well we may be able to downgrade her to moderate intermittent right now I would keep diagnosis the same the code is J 45.51 I hav e corrected the diagnosis of Parkinson's from home health list before and crossed it out and it is still appearing on the list. She has never had Parkinson's. She has had Reglan induced tremor and it has resolved. She has never had Parkinson's disease. It is listed on the infectious disease problem list but it is an error. She has myasthenia gravis without exacerbation. Neurologist has r ecently taken her off CellCept as they feel the CellCept has contributed to recurrent pneumonia an d her sheryl the mycoplasma avium bacteria which has led to her persistent exacerbation of as thma. She has type 2 diabetes but she has gastroparesis hyper and hypoglycemia and neuropathy so th e correct code is E 11.8 as she has numerous complications her most recent hemoglobin A1c was in the 8 range she has obstructive sleep apnea it is not unspecified it is obstructive and it is manage d by Dr. Wilkinson and Dr. Helms- she was just there and saw them recently. Dr. Helms does not feel all of her fatigue is from her obstructive sleep apnea he feels some of it is from medication side effects so he is having her take all 200 mg of Topamax at bedtime and is working on getting her long-acting Requip so she can take the full dose of Requip at bedtime she has mixed anxiety and depression wit h F 41.8 code depression screen is 7 which for her is quite good she feels she is stable on he r current medicines and medically is improving does not feel as depressed as she sometimes has in th e past. We switched her from Lexapro to Zoloft a couple months ago because of drug interactions with some of her antibiotics principally Zithromax she feels the Zoloft is working just as well. Hypertension I 10 is correct and is currently well controlled with medication. She is on long-ter m inhaled steroids. She is on long-term insulin therapy. She is not on supplemental oxygen anymore that diagnosis can be removed from the problem list she does have gastroesophageal reflux currently controlled with medication that diagnosis K 21.9 is correct she does have restless leg syndrome vitamin D E 55.9 is correct. Obesity E 66.9 is correct she does not have chronic atrial fibrillatio n. In the setting of sepsis due to pneumonia she on one occasion had rapid ventricular A. fib it w as isolated to one occasion. She is never had it again. Therefore she has not been anticoagulated . It was felt due to her sepsis it has never recurred so chronic A. fib is incorrect. Other perti nent diagnoses that could be listed although she has numerous would be mixed hyperlipidemia allergic rhinitis common variable immunodeficiency for which she takes weekly hirenzta injection to boost her immune system B12 deficiency anemia she is on B12 at thousand micrograms daily prednisone is s till listed on her medication list and she is no longer on it Topamax she is on 200 but it is being dosed all at night I will send a copy of this progress note to home health so that they can make th christina addendum's to her diagnosis list and these addendum's to her medication list. Patient also cherry s reflux and gastroparesis so far her symptoms have been stable her Zantac 300 was recalled b ut she is still been able to get 150 and take 2 at bedtime and stomach since starting probiotic has b een much better no indigestion or heartburn nausea has resolved even with the triple antibiotic reg imen continue twice daily Nexium. Hypertension is stable on enalapril 2.5. Check microalbumin j[facility] renal function was stable last month I reviewed her blood sugar log for the past 3 weeks and bl ood sugars really are running pretty steady since getting off prednisone lipids are stable on ator vastatin 40 she does take a baby aspirin 81 she has Xanax 0.25 3 times daily but is rarely taking it she was using nebulizer every 4 hours on a pretty routine basis but past couple weeks she had not been using it I told her to go ahead and restart it if she feels she is wheezing but currently l ungs are completely clear the other acute issue is enlarging inflamed skin tag in the right groin I think it looks like inflamed seborrheic keratosis but she complains she thinks it is getting bigger so I will send to dermatology for consult they may just do cryotherapy. She also has some chronic back and hip pain it sounds mechanical. Exam is benign she is up and moving more because she is f eeling better otherwise. She is probably using muscles she has not used in a while now that s he is walking and moving around more she has had no recent fall. Straight leg is -+1 patellar ref lexes bilaterally strength in the lower extremities is preserved but I would feel better if she ge ts pelvis and lumbosacral x-rays because of her steroid dependence she has had no recent fall but she has had distant falls and she agrees to get some x-rays she does not really want to do t herapy she is already on gabapentin and Topamax if not improving I can discuss with Dr. Wilkinson and he certainly would order an MRI but she does not really describe it is radicular it is more m echanical she can try some heat she can try Tylenol he is very hesitant to take any Tylenol but I would take at thousand 3 times daily as needed. and see if that does not help. [employer] is ma lfunctioning so unfortunately I was not able to dictate as many individual problems as I wanted to because of the computer dysfunction We discussed that she has had some cough and runny nose for 3 days but the chanc e of it being anything bacterial when she is on broad-spectrum rifampin and Zithromax as well is at the ethamubol is extremely unlikely. She is not febrile. She does not look sick her sat is g ood her lungs are completely clear. This might be a common cold as her grandchildren have been si ck. It could even be just allergies but she certainly does not look sick to me she should monitor her symptoms she takes nasal saline and nasal steroid and loratadine at baseline I would just mon itor symptoms she has O2 sat machine at home she can monitor for desaturations but I think she loo ks as good as I have seen her in several months. She is about 2 months into treatment total of about 12 months minimum planned fo r Mycobacterium avium pneumonia. I had not personally seen a case of MAC since residency 25+ ye ars ago and at that time it was in an HIV patient she does have common variable immunodeficiency but that is being adequately treated and her levels had come back up to normal with treatment with the pickler helper it is felt that it most likely was coming from her CellCept immune suppression for her myasthenia gravis disease neurologist feels that that is stable she has been taken off CellCept sh e does not feel any of her neurologic symptoms are worse and she is now on methotrexate low-dose 7.5 every Tuesday she is having blood work with her neurologist she had blood work last month with me we discussed the results neurologist has advised her to keep up-to-date on eye exams so she just had one she will be following up with neurology pulmonary infectious disease I will see her back in a month From allergy point of view and immunology point of view Dr. chavez feels she is doing well he is not going to see her back for about 6 months he just measured her immunoglobulin levels and feels things are satisfactory She is on atorvastatin she had lab work last month her HDL is up in the 80s her LDL is in the 60s liver function test are stable no adjustment in her statin is needed she is star ting to be more active E 11.8 is correct diagnosis for diabetes since last visit she has had no lows bu t she has had lows in the past she has A1c of 8.4 but over the last month since being able to get o ff prednisone blood sugars have particularly the last 2 weeks generally not been below 90 nothing ab ove 150 and overall control is been much improved I would not make any current insulin dose adjustme nts hopefully as her asthma stabilizes she can become a little more active and start to exercise when she was feeling completely debilitated she had applied for a electric wheelchair scooter she krueger s not feel that is necessary so we will hold off on completing that paperwork she will have fasting labs again in 3 months she is up-to-date on eye exam Continue vitamin D dose and recheck in August Her anxiety and depression is chronic she has various social stressors but she f eels things are relatively stable since I switched her to Zoloft she can always switch back once she is off Zithromax but she thinks it is working just as well as Lexapro may be even lynette r and is okay to stay on it Just saw a neurologist has been switched to Topamax at bedtime for her headaches and he is trying to get authorization for long-acting Requip for her restless leg syndrome feels she is stable as far as myasthenia with her Mestinon dose and has discontinued CellCept and switch to lo w-dose methotrexate which so far has agreed with her she is aware of the side effects Future Tests Future scheduled test information is unavailable Pending Tests Pending diagnostic test information is unavailable Future Visits Future appointment information is unavailable Referrals to Other Providers Reason for Referral Referral Start Date Provider Provider Conta ct Information Provider Address L82.0 - Inflamed seborrheic keratosis June 26, 2019 Dermatolo gy [facility] [address] [facility] [address] Future Procedures Future procedure information is unavailable [...] Reading Result Ref erence Range Collection Date/Time Height 63 [in_i] June 26, 2019 4:05pm Weight 256.00 [lb_av] June 26, 2019 4:05pm Body Temperature 98.4 [degF] 97.6-99.5 June 26, 2019 4:05pm Heart Rate 102 /min 60-1 00 June 26, 2019 4:05pm Respiratory rate 18 /min 12-24 June 26, 2019 4:05pm Oxygen saturation by Pulse oximetry 99 % 95- 100 June 26, 2019 4:05pm BP Systolic 128 mm[Hg] June 26, 2019 4:05pm BP Diastolic 74 mm[Hg] June 26, 2019 4:05pm BMI (Body Mass Index) 45.3 kg/m2 June 26, 2019 4:05pm Body Temperature 97.9 [degF] 97.6-99.5 October 12, [...] 14, 2020 9:22am Respiratory rate 16 /min 12-April 14, 2020 9:22am Oxygen saturation by Pulse oximetry 99 % 95- 100 April 14, 2020 9:22am BP Systolic 128 mm[Hg] April 14, 2020 9:22am BP Diastolic 62 mm[Hg] April 14, 2020 9:22am BMI (Body Mass Index) 44.6 kg/m2 April 14, 2020 9:22am
--- OUTSIDE RECORDS SUMMARY | 2020-07-30 19:24 | CCD ---
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 Active 105383130 Problem Moderate persistent asthma with exacerbation J45.4 1 Active 841425501 Problem Overactive bladder N32.81 Active 979122876 Problem Chronic obstructive pulmonary disease, unspecified COPD ty pe J44.9 Active 50537132 Problem Infection due to Enterobacter aerogenes A49.8 Active 738893141 Problem detention (current) use of insulin Z79.4 Activ e 170319739 Problem Type 2 diabetes mellitus without complications E11 .9 Active 354583752 ALLERGIES Allergen (clinical drug ingredient) Drug/Non Drug Allergy do cumented on EMR Reaction Allergy Type Onset Date Status sulfacetamide Sulfacetamide Sodium([facility] Code:[address]-98) Hives Drug Allergy Active ENCOUNTERS from 1960 to 2020-05-05 Encounter Location Date Provider Diagnosis [facility] [address] [address] Jan, Jese Barbour 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, soft tissue, and skin D49.2 ; Intertrigo L30.4 ; Seborrheic keratosis, inflamed L82.0 and Unspecified disturbances of skin sensation R20.9 IMMUNIZATIONS Vaccine Route Administration Date Status Influenza [...] REASON FOR REFERRAL No Information VITAL SIGNS Weight 252.6 lbs Jan, Height 63 in Jan, BMI 44.74 kg/m2 Jan, Blood pressure systolic 132 mm Hg Jan, Blood pressure diastolic 74 mm Hg Jan, MEDICATIONS Medication SIG (Take, Route, Frequency, Duration) Start Date En d Date Status Ethambutol HCl 400 MG 4 tab Orally Daily for 30 Active Pyridostigmine Jumping Branch 60 MG 1 tablet Orally every 4 hrs Active Basaglar KwikPen 100 UNIT/ML as directed Subcutaneous Active Ferrous Sulfate 325 (65 Fe) MG 1 tablet Orally Twice a day Active AirDuo RespiClick 113/14 113-14 MCG/ACT 1 puff Inhalation Twice a day for 30 Active Vitamin D 00437 UNIT 1 tablet Orally once per week Active Albuterol Sulfate (2.5 MG/3ML) 0.083% as directed Inhalation Active Methotrexate 2.5 MG 3 tabs Orally weekly Active Requip 2 MG 1 tablet Orally two times daily Active Loratadine 10 MG 1 tablet Orally Once a day for 30 day(s) Active Rifampin 300 MG 2 tablets Orally Daily for 30 Active Azithromycin 250 MG 1 tab Orally Once a day for 30 Active Tylenol 8 Hour 650 MG 2 tablets as needed Orally every 8 hrs Active Multivitamins as directed Orally Active Gabapentin 300 MG 1 capsule Orally Once a day for 30 day(s) Active Admelog SoloStar 100 UNIT/ML as directed Subcutaneous Active Montelukast Sodium 10 MG 1 tablet Orally Once a day for 30 day(s) Active Zinc Acetate 9 MG as directed Mouth/Throat Active Enalapril Maleate 2.5 MG 1 tablet Orally Once a day Active Incruse Ellipta 62.5 MCG/INH 1 puff Inhalation Once a day Active Hizentra 10 GM/50ML Subcutaneous Active Atorvastatin Calcium 20 MG 1 tablet Orally Once a day for 30 day(s) Active Acidophilus Probiotic Blend - 1 cap Orally bid for 30 Active Cyanocobalamin ER 1000 MCG 1 tablet Orally Once a day for 30 day(s) Active Esomeprazole Magnesium 40 MG 1 capsule Orally Once a day for 30 day (s) Active Topiramate 50 MG 1 tablet Orally [...] Information RESULTS No Results REASON FOR VISIT No Information MEDICAL (GENERAL) HISTORY Type Description Date Medical [...] STATUS No Information ASSESSMENTS Encounter Date Diagnosis Notes Jan, Seborrheic keratosis, inflamed (ICD-10 - L82.0) Jan, Intertrigo (ICD-10 - L30.4) Jan, Unspecified disturbances of skin sensati on (ICD-10 - R20.9) Jan, 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, soft tissue, and skin (ICD-10 - D49.2) PLAN OF TREATMENT Medication Medication Name Sig Start Date Stop Date Admelog SoloStar 100 UNIT/ML as directed Subcutaneous Enalapril Maleate 2.5 MG 1 tablet Orally Once a day Basaglar KwikPen 100 UNIT/ML as directed Subcutaneous Azithromycin 250 MG 1 tab Orally Once a day for 30 Acidophilus Probiotic Blend - 1 cap Orally bid for 30 Rifampin 300 MG 2 tablets Orally Daily for 30 Methotrexate 2.5 MG 3 tabs Orally weekly Albuterol Sulfate (2.5 MG/3ML) 0.083% as directed Inhalation Ethambutol HCl 400 MG 4 tab Orally Daily for 30 Pyridostigmine Jumping Branch 60 MG 1 tablet Orally every 4 hrs AirDuo RespiClick 113/14 113-14 MCG/ACT 1 puff Inhalation Twice a day for 30 Treatment Notes Assessment Notes Clinical Notes Neoplasm of unspecified behavior of bone, soft tissue, and skin Procedure: Tangential Biopsy Phillips protocol was followed in compliance with [facility] standards. The patient was educated on the potential risks and benefits of the procedure and gave his/her informed consent. Location of biopsy noted in the physical exam and images uploaded to the medical record. Area(s) treated with EtOH. Local anesthesia performed with <1mL of 1% lidocaine with epinephrine per site. Site(s) verified with patient via timeout utilizing patient name and date of . Biopsy/Biopsies performed. Dual site-specimen cup verification performed verbally between provider and clinic staff. Hemostasis achieved with hyfrecation or aluminum chloride/styptic. Closure: secondary intent. Petrolatum and bandage applied. Wound care instruction addressed with patient by provider or clinic staff and wound care handout given. Patient tolerated the procedure well and left in stable condition. Patient reports that his/her pain was well-managed. There was no noted significant d ifference from baseline pain score after procedure. Patient was educated to use acetaminophen 500mg up to 4 times daily. If not sufficient, patient was educated to re-present to the dermatology clinic or, if after hours, the emergency department. Patient was informed they would be notified in 10-14 days by telephone for all malignant conditions and scheduled for definitive management. Intertrigo Triple Paste AF BID to folded areas Seborrheic keratosis, inflamed Cryotherapy x [1 ] numb er of sites. Phillips protocol was followed in compliance with [facility] standards. Patient was counseled regarding the indication for treatment (precancerous state for actinic keratosis or cosmetic reasons if done for seborrheic keratoses, acrochordons or warts) as well as, the method and expected results to include compromise of the skin barrier, bleeding, scarring/white area, redness at site, lesion recurrence, and pain. Patient was consented to the risks and benefits of the procedure and gave informed consent. Lesion(s) with locations as indicated in the physical examination were treated. Lesion(s) were treated with 2 cycles of liquid nitrogen with a thaw time of at least ten seconds. Therapy was applied in a pulsed fashion to minimize collateral tissue injury. Patient was instructed to use Vaseline ointment to the area(s) until healed. Patient tolerated the procedure well and left in stable condition. Pain before and after the procedure were assessed to not be significantly different than baseline. Unspecified disturbances of skin sensation Cryo Next Appt Details Per path o/w 1 Y Reason:FBSE Provider Name:Caridadsharan Benites, 2020-07-11 1 10:00:00 AM, [address] [place], [address], Provider Name:Jese Barbour, 2021-01 01:15:00 PM, [address] [facility], [address] [facility], [place], [address], Follow Up:Per path o/w 1 YFBSE Insurance Providers Payer Name Payer Address Payer Phone Insured Name Patient Relati onship to Insured Coverage Start Date Coverage End Date [facility] [employer] [facility] [address] [facility] [phone] ISIDRA YANEZ self
--- OUTSIDE RECORDS SUMMARY | 2020-07-30 19:27 | CCD ---
Author Author [facility] Organization [facility] Address Unknown Phone Unavailable Care Team Providers Care Home Health Travel Ot Name Role Phone Jose Carlos Menodza Unavailable Unavailable Jose Carlos Mendoza Unavailable Unavailable Jose Carlos Mendoza Unavailable Unavailable Mendoza, Jose Carlos PA Unavailable Unavailable Mendoza, Jose Carlos PA Unavailable Unavailable Mendoza, Jose Carlos PA Unavailable Unavailable Mendoza, Jose Carlos PA Unavailable Unavailable Mendoza, Jose Carlos PA Unavailable Unavailable Mendoza, Jose Carlos PA Unavailable Unavailable Mendoza, Jose Carlos PA Unavailable Unavailable Mendoza, Jose Carlos PA Unavailable Unavailable Mendoza, Jose Carlos PA Unavailable Unavailable Mendoza, Jose Carlos PA Unavailable Unavailable Mendoza, Jose Carlos PA Unavailable Unavailable Mendoza, Jose Carlos PA Unavailable Unavailable Mendoza, Jose Carlos PA Unavailable Unavailable Mendoza, Jose Carlos PA Unavailable Unavailable Mendoza, Jose Carlos PA Unavailable Unavailable Mendoza, Jose Carlos PA Unavailable Unavailable Mendoza, Jose Carlos PA Unavailable Unavailable Mendoza, Jose Carlos PA Unavailable Unavailable Mendoza, Jose Carlos PA Unavailable Unavailable Mendoza, Jose Carlos PA Unavailable Unavailable Mendoza, Jose Carlos PA Unavailable Unavailable Mendoza, Jose Carlos PA Unavailable Unavailable Mendoza, Jose Carlos PA Unavailable Unavailable Mendoza, Jose Carlos PA Unavailable Unavailable Mendoza, Jose Carlos PA Unavailable Unavailable Mendoza, Jose Carlos PA Unavailable Unavailable Mendoza, Jose Carlos PA Unavailable Unavailable Mendoza, Jose Carlos PA Unavailable Unavailable Mendoza, Jose Carlos PA Unavailable Unavailable Mendoza, Jose Carlos PA Unavailable Unavailable Mendoza, Jose Carlos PA Unavailable Unavailable Mendoza, Jose Carlos PA Unavailable Unavailable Mendoza, Jose Carlos PA Unavailable Unavailable Mendoza, Jose Carlos PA Unavailable Unavailable Mendoza, Jose Carlos PA Unavailable Unavailable Mendoza, Jose Carlos PA Unavailable Unavailable Mendoza, Jose Carlos PA Unavailable Unavailable Mendoza, Jose Carlos PA Unavailable Unavailable Mendoza, Jose Carlos PA Unavailable Unavailable Mendoza, Jose Carlos PA Unavailable Unavailable Mendoza, Jose Carlos PA Unavailable Unavailable Jaja, Antonio MD Unavailable Unavailable Jaja, Natonio MD Unavailable Unavailable Jaja, Antonio MD Unavailable Unavailable Jaja, Antonio MD Unavailable Unavailable Jaja, Antonio MD Unavailable Unavailable Jaja, Antonio MD Unavailable Unavailable Jaja, Antonio MD Unavailable Unavailable Jaja, Antonio MD Unavailable Unavailable Jaja, Antonio MD Unavailable Unavailable Jaja, Antonio MD Unavailable Unavailable Jaja, Antonio MD Unavailable Unavailable Jaja, Antonio MD Unavailable Unavailable Jaja, Antonio MD Unavailable Unavailable Jaja, Antonio MD Unavailable Unavailable Jaja, Antonio MD Unavailable Unavailable Jaja, Antonio MD Unavailable Unavailable Jaja, Antonio MD Unavailable Unavailable Jaja, Antonio MD Unavailable Unavailable Jaja, Antonio MD Unavailable Unavailable Jaja, Antonio MD Unavailable Unavailable Jaja, Antonio MD Unavailable Unavailable Jaja, Antonio MD Unavailable Unavailable Jaja, Antonio MD Unavailable Unavailable Jaja, Antonio MD Unavailable Unavailable Jaja, Antonio MD Unavailable Unavailable Jaja, Antonio MD Unavailable Unavailable Jaja, Antonio MD Unavailable Unavailable Jaja, Antonio MD Unavailable Unavailable Jaja, Antonio MD Unavailable Unavailable Jaja, Antonio MD Unavailable Unavailable Jaja, Antonio MD Unavailable Unavailable Jaja, Antonio MD Unavailable Unavailable Jaja, Antonio MD Unavailable Unavailable Jjaa, Antonio MD Unavailable Unavailable Jaja, Antonio MD Unavailable Unavailable Jaja, Antonio MD Unavailable Unavailable Jaja, Antonio MD Unavailable Unavailable Jaja, Antonio MD Unavailable Unavailable Jaja, Antonio MD Unavailable Unavailable Jaja, Antonio MD Unavailable Unavailable Jaja, Antonio MD Unavailable Unavailable Jaja, Antonio MD Unavailable Unavailable Jaja, Antonio MD Unavailable Unavailable Jaja, Antonio MD Unavailable Unavailable Jaja, Antonio MD Unavailable Unavailable Jaja, Antonio MD Unavailable Unavailable Jaja, Antonio MD Unavailable Unavailable Jaja, Antonio MD Unavailable Unavailable Jaja, Antonio MD Unavailable Unavailable Jaja, Antonio MD Unavailable Unavailable Jaja, Antonio MD Unavailable Unavailable Jaja, Antonio MD Unavailable Unavailable Jaja, Antonio MD Unavailable Unavailable Jaja, Antonio MD Unavailable Unavailable Jaja, Antonio MD Unavailable Unavailable Jaja, Antonio MD Unavailable Unavailable Jaja, Antonio MD Unavailable Unavailable Jaja, Antonio MD Unavailable Unavailable Jaja, Antonio MD Unavailable Unavailable Jaja, Antonio MD Unavailable Unavailable Jaja, Antonio MD Unavailable Unavailable Jaja, Antonio MD Unavailable Unavailable Rosemarie-Huitron, Lindsay DO Unavailable Unavailable Alto-Huitron, Lindsay DO Unavailable Unavailable Rosemarie-Huitron, Lindsay DO Unavailable Unavailable Alto-Huitron, Lindsay DO Unavailable Unavailable Rosemarie-Huitron, Lindsay DO Unavailable Unavailable Alto-Huitron, Lindsay DO Unavailable Unavailable Rosemarie-Huitron, Lindsay DO Unavailable Unavailable Alto-Huitron, Lindsay DO Unavailable Unavailable Rosemarie-Huitron, Lindsay DO Unavailable Unavailable Rosemarie-Huitron, Lindsay DO Unavailable Unavailable Rosemarie-Huitron, Lindsay DO Unavailable Unavailable Rosemarie-Huitron, Lindsay DO Unavailable Unavailable Rosemarie-Huitron, Lindsay DO Unavailable Unavailable Rosemarie-Huitron, Lindsay DO Unavailable Unavailable Rosemarie-Huitron, Lindsay DO Unavailable Unavailable Alto-Huitron, Lindsay DO Unavailable Unavailable Rosemarie-Huitron, Lindsay DO Unavailable Unavailable Alto-Huitron, Lindsay DO Unavailable Unavailable Rosemarie-Huitron, Lindsay DO Unavailable Unavailable Rosemarie-Huitron, Lindsay DO Unavailable Unavailable Rosemarie-Huitron, Lindsay DO Unavailable Unavailable Alto-Huitron, Lindsay DO Unavailable Unavailable Rosemarie-Huitron, Lindsay DO Unavailable Unavailable Rosemarie-Huitron, Lindsay DO Unavailable Unavailable Alto-Huitron, Lindsay DO Unavailable Unavailable Rosemarie-Huitron, Lindsay DO Unavailable Unavailable Rosemarie-Huitron, Lindsay DO Unavailable Unavailable Rosemarie-Huitron, Lindsay DO Unavailable Unavailable Alto-Huitron, Lindsay DO Unavailable Unavailable Alto-Huitron, Lindsay DO Unavailable Unavailable Alto-Huitron, Lindsay DO Unavailable Unavailable Alto-Huitron, Lindsay DO Unavailable Unavailable Rosemarie-Huitron, Lindsay DO Unavailable Unavailable Alto-Huitron, Lindsay DO Unavailable Unavailable Alto-Huitron, Lindsay DO Unavailable Unavailable Rosemarie-Huitron, Lindsay DO Unavailable Unavailable Rosemarie-Huitron, Lindsay DO Unavailable Unavailable Alto-Huitron, Lindsay DO Unavailable Unavailable Rosemarie-Huitron, Lindsay DO Unavailable Unavailable Alto-Huitron, Lindsay DO Unavailable Unavailable Rosemarie-Huitron, Lindsay DO Unavailable Unavailable Rosemarie-Huitron, Lindsay DO Unavailable Unavailable Rosemarie-Huitron, Lindsay DO Unavailable Unavailable Rosemarie-Huitron, Lindsay DO Unavailable Unavailable Rosemarie-Huitron, Lindsay DO Unavailable Unavailable Alto-Huitron, Lindsay DO Unavailable Unavailable Rosemarie-Huitron, Lindsay DO Unavailable Unavailable Rosemarie-Huitron, Lindsay DO Unavailable Unavailable Rosemarie-Huitron, Lindsay DO Unavailable Unavailable Rosemarie-Huitron, Lindsay DO Unavailable Unavailable Rosemarie-Huitron, Lindsay DO Unavailable Unavailable Rosemarie-Huitron, Lindsay DO Unavailable Unavailable Rosemarie-Huitron, Lindsay DO Unavailable Unavailable Alto-Huitron, Lindsay DO Unavailable Unavailable Rosemarie-Huirton, Lindsay DO Unavailable Unavailable Rosemarie-Huitron, Lindsay DO Unavailable Unavailable Rosemarie-Huitron, Lindsay DO Unavailable Unavailable Alto-Huitron, Lindsay DO Unavailable Unavailable Rosemarie-Huitron, Lindsay DO Unavailable Unavailable Rosemarie-Huitron, Lindsay DO Unavailable Unavailable Alto-Huitron, Lindsay DO Unavailable Unavailable Rosemarie-Huitron, Lindsay DO Unavailable Unavailable Rosemarie-Huitron, Lindsay DO Unavailable Unavailable Rosemarie-Huitron, Lindsay DO Unavailable Unavailable Alto-Huitron, Lindsay DO Unavailable Unavailable Alto-Huitron, Lindsay DO Unavailable Unavailable Rosemarie-Huitron, Lindsay DO Unavailable Unavailable Rosemarie-Huitron, Lindsay DO Unavailable Unavailable Alto-Huitron, Lindsay DO Unavailable Unavailable Alto-Huitron, Lindsay DO Unavailable Unavailable BuniakFrances MD Unavailable Unavailable BuniakFrances MD Unavailable Unavailable Buniak, Frances DEL ROSARIO Unavailable Unavailable Buniak, Frances DEL ROSARIO Unavailable Unavailable Buniak, Frances DEL ROSARIO Unavailable Unavailable Buniak, Frances DEL ROSARIO Unavailable Unavailable Buniak, Frances DEL ROSARIO Unavailable Unavailable Buniak, Frances DEL ROSARIO Unavailable Unavailable Buniak, Frances DEL ROSARIO Unavailable Unavailable BuniakFrances MD Unavailable Unavailable BuniakFrances MD Unavailable Unavailable BuniakFrances MD Unavailable Unavailable BuniakFrances MD Unavailable Unavailable BuniakFrances MD Unavailable Unavailable BuniakFrances MD Unavailable Unavailable BuniakFrances MD Unavailable Unavailable BuniakFrances MD Unavailable Unavailable BuniakFrances MD Unavailable Unavailable BuniakFrances MD Unavailable Unavailable BuniakFrances MD Unavailable Unavailable BuniakFrances MD Unavailable Unavailable BuniakFrances MD Unavailable Unavailable BuniakFrances MD Unavailable Unavailable BuniakFrances MD Unavailable Unavailable BuniakFrances MD Unavailable Unavailable BuniakFrances MD Unavailable Unavailable BuniakFrances MD Unavailable Unavailable BuniakFrances MD Unavailable Unavailable BuniakFrances MD Unavailable Unavailable BuniakFranecs MD Unavailable Unavailable BuniakFrances MD Unavailable Unavailable BuniakFrances MD Unavailable Unavailable BuniakFrances MD Unavailable Unavailable BuniakFrances MD Unavailable Unavailable Buniak, Frances DEL ROSARIO Unavailable Unavailable BuniakFrances MD Unavailable Unavailable BuniakFrances MD Unavailable Unavailable Buniak, Frances DEL ROSARIO Unavailable Unavailable BuniakFrances MD Unavailable Unavailable BuniakFrances MD Unavailable Unavailable BuniakFrances MD Unavailable Unavailable BuniakFrances MD Unavailable Unavailable BuniakFrances MD Unavailable Unavailable BuniakFrances MD Unavailable Unavailable Buniak, Frances DEL ROSARIO Unavailable Unavailable Buniak, Borys MD Unavailable Unavailable Buniak, Borys MD Unavailable Unavailable Buniak, Borys MD Unavailable Unavailable Buniak, Borys MD Unavailable Unavailable Buniak, Borys MD Unavailable Unavailable Buniak, Borys MD Unavailable Unavailable Buniak, Borys MD Unavailable Unavailable Buniak, Borys MD Unavailable Unavailable Buniak, Borys MD Unavailable Unavailable Buniak, Borys MD Unavailable Unavailable Buniak, Borys MD Unavailable Unavailable Buniak, Borys MD Unavailable Unavailable Buniak, Borys MD Unavailable Unavailable Buniak, Borys MD Unavailable Unavailable Buniak, Borys MD Unavailable Unavailable Buniak, Borys MD Unavailable Unavailable Buniak, Borys MD Unavailable Unavailable Buniak, Borys MD Unavailable Unavailable Buniak, Borys MD Unavailable Unavailable Buniak, Borys MD Unavailable Unavailable Buniak, Borys MD Unavailable Unavailable Buniak, Borys MD Unavailable Unavailable Buniak, Borys MD Unavailable Unavailable Buniak, Borys MD Unavailable Unavailable Buniak, Borys MD Unavailable Unavailable Buniak, Borys MD Unavailable Unavailable Buniak, Borys MD Unavailable Unavailable Buniak, Borys MD Unavailable Unavailable Buniak, Borys MD Unavailable Unavailable Buniak, Borys MD Unavailable Unavailable Buniak, Borys MD Unavailable Unavailable Buniak, Borys MD Unavailable Unavailable Buniak, Borys MD Unavailable Unavailable Buniak, Borys MD Unavailable Unavailable Buniak, Borys MD Unavailable Unavailable Buniak, Borys MD Unavailable Unavailable Buniak, Borys MD Unavailable Unavailable Buniak, Borys MD Unavailable Unavailable Buniak, Borys MD Unavailable Unavailable Buniak, Borys MD Unavailable Unavailable Buniak, Borys MD Unavailable Unavailable Buniak, Borys MD Unavailable Unavailable Buniak, Borys MD Unavailable Unavailable Buniak, Borys MD Unavailable Unavailable Buniak, Borys MD Unavailable Unavailable Buniak, Borys MD Unavailable Unavailable Buniak, Borys MD Unavailable Unavailable Buniak, Borys MD Unavailable Unavailable Buniak, Borys MD Unavailable Unavailable Daisy LEMUS MD Unavailable Unavailable Daisy LEMUS MD Unavailable Unavailable Daisy LEMUS MD Unavailable Unavailable Daisy LEMUS MD Unavailable Unavailable Daisy LEMUS MD Unavailable Unavailable Daisy LEMUS MD Unavailable Unavailable Daisy LEMUS MD Unavailable Unavailable Daisy LEMUS MD Unavailable Unavailable Daisy LEMUS MD Unavailable Unavailable KENNDaisy MD Unavailable Unavailable KENNDaisy MD Unavailable Unavailable Daisy LEMUS MD Unavailable Unavailable KENNDaisy MD Unavailable Unavailable KENNDaisy MD Unavailable Unavailable KENNDaisy MD Unavailable Unavailable KENNDaisy MD Unavailable Unavailable KENN, Daisy RAMIREZ MD Unavailable Unavailable KENNDaisy MD Unavailable Unavailable KENNDaisy MD Unavailable Unavailable KENNDaisy MD Unavailable Unavailable KENNDiasy MD Unavailable Unavailable KENN C JAMES DEL ROSARIO Unavailable Unavailable KENN C JAMES DEL ROSARIO Unavailable Unavailable KENN, C JAMES DEL ROSARIO Unavailable Unavailable KENN C JAMES DEL ROSARIO Unavailable Unavailable KENN C JAMES DEL ROSARIO Unavailable Unavailable KENN C JAMES DEL ROSARIO Unavailable Unavailable KENN C JAMES DEL ROSARIO Unavailable Unavailable KENN C JAMES DEL ROSARIO Unavailable Unavailable KENN, C JAMES DEL ROSARIO Unavailable Unavailable KENN, C JAMES DEL ROSARIO Unavailable Unavailable KENNDaisy MD Unavailable Unavailable KENN C JAMES DEL ROSARIO Unavailable Unavailable KENN C JAMES DEL ROSARIO Unavailable Unavailable KENN C JAMES DEL ROSARIO Unavailable Unavailable TAHIR, DOC ANDREW BOOK STORE ASSOCIATE-C Unavailable Unavailable TAHIR, DOC ANDREW BOOK STORE ASSOCIATE-C Unavailable Unavailable TAHIR, DOC ANDREW BOOK STORE ASSOCIATE-C Unavailable Unavailable TAHIR, DOC ANDREW BOOK STORE ASSOCIATE-C Unavailable Unavailable TAHIR, DOC ANDREW BOOK STORE ASSOCIATE-C Unavailable Unavailable TAHIR, DOC ANDREW BOOK STORE ASSOCIATE-C Unavailable Unavailable TAHIR, DOC ANDREW BOOK STORE ASSOCIATE-C Unavailable Unavailable TAHIR, DOC ANDREW BOOK STORE ASSOCIATE-C Unavailable Unavailable TAHIR, DOC ANDREW BOOK STORE ASSOCIATE-C Unavailable Unavailable TAHIR, DOC ANDREW BOOK STORE ASSOCIATE-C Unavailable Unavailable TAHIR, DOC ANDREW BOOK STORE ASSOCIATE-C Unavailable Unavailable TAHIR, DOC ANDREW BOOK STORE ASSOCIATE-C Unavailable Unavailable TAHIR, DOC ANDREW BOOK STORE ASSOCIATE-C Unavailable Unavailable TAHIR, DOC ANDREW BOOK STORE ASSOCIATE-C Unavailable Unavailable TAHIR, DOC ANDREW BOOK STORE ASSOCIATE-C Unavailable Unavailable Henna Moreira MD Unavailable Unavailable Henna Moreira MD Unavailable Unavailable Henna Moreira MD Unavailable Unavailable Henna Moreira MD Unavailable Unavailable Henna Moreira MD Unavailable Unavailable HarishHenna altman MD Unavailable Unavailable HarishHenna altman MD Unavailable Unavailable HarishHenna altman MD Unavailable Unavailable HarishHenna altman MD Unavailable Unavailable HarishHenna altman MD Unavailable Unavailable HarishHenna altman MD Unavailable Unavailable HarishHenna MD Unavailable Unavailable HarishHenna MD Unavailable Unavailable HarishHenna altman MD Unavailable Unavailable HarishHenna altman MD Unavailable Unavailable HarishHenna altman MD Unavailable Unavailable HarishHenna altman MD Unavailable Unavailable HarishHenna altman MD Unavailable Unavailable HarishHenna altman MD Unavailable Unavailable HarishHenna altman MD Unavailable Unavailable HarishHenna altman MD Unavailable Unavailable HarishHenna altman MD Unavailable Unavailable HarishHenna altman MD Unavailable Unavailable Henna Moreira MD Unavailable Unavailable Henna Moreira MD Unavailable Unavailable Henna Moreira MD Unavailable Unavailable Henna Moreira MD Unavailable Unavailable Henna Moreira MD Unavailable Unavailable Henna Moreira MD Unavailable Unavailable Celia Vasquez MD Unavailable Unavailable Celia Vasquez MD Unavailable Unavailable Celia Vasquez MD Unavailable Unavailable Celia Vasquez MD Unavailable Unavailable Celia Vasquez MD Unavailable Unavailable Celia Vasquez MD Unavailable Unavailable Celia Vasquez MD Unavailable Unavailable Celia Vasquez MD Unavailable Unavailable Celia Vasquez MD Unavailable Unavailable Celia Vasquez MD Unavailable Unavailable Celia Vasquez MD Unavailable Unavailable Celia Vasquez MD Unavailable Unavailable Celia Vasquez MD Unavailable Unavailable Celia Vasquez MD Unavailable Unavailable Celia Vasquez MD Unavailable Unavailable Celia Vasquez MD Unavailable Unavailable Celia Vasquez MD Unavailable Unavailable Celia Vasquez MD Unavailable Unavailable Celia Vasquez MD Unavailable Unavailable Celia Vasquez MD Unavailable Unavailable Celia Vasquez MD Unavailable Unavailable Celia Vasquez MD Unavailable Unavailable Celia Vasquez MD Unavailable Unavailable Celia Vasquez MD Unavailable Unavailable Celia Vasquez MD Unavailable Unavailable Celia Vasquez MD Unavailable Unavailable Celia Vasquez MD Unavailable Unavailable Celia Vasquez MD Unavailable Unavailable Celia Vasquez MD Unavailable Unavailable Celia Vasquez MD Unavailable Unavailable Celia Vasquez MD Unavailable Unavailable Celia Vasquez MD Unavailable Unavailable Celia Vasquez MD Unavailable Unavailable Celia Vasquez MD Unavailable Unavailable Celia Vasquez MD Unavailable Unavailable Celia Vasquez MD Unavailable Unavailable Celia Vasquez MD Unavailable Unavailable Celia Vasquez MD Unavailable Unavailable Celia Vasquez MD Unavailable Unavailable Celia Vasquez MD Unavailable Unavailable Celia Vasquez MD Unavailable Unavailable Celia Vasquez MD Unavailable Unavailable Celia Vasquez MD Unavailable Unavailable Celia Vasquez MD Unavailable Unavailable Celia Vasquez MD Unavailable Unavailable Celia Vasquez MD Unavailable Unavailable Celia Vasquez MD Unavailable Unavailable Celia Vasquez MD Unavailable Unavailable Celia Vasquez MD Unavailable Unavailable Celia Vasquez MD Unavailable Unavailable Celia Vasquez MD Unavailable Unavailable Celia Vasquez MD Unavailable Unavailable Celia Vasquez MD Unavailable Unavailable Celia Vasquez MD Unavailable Unavailable Celia Vasquez MD Unavailable Unavailable Celia Vasquez MD Unavailable Unavailable Celia Vasquez MD Unavailable Unavailable Celia Vasquez MD Unavailable Unavailable Celia Vasquez MD Unavailable Unavailable Celia Vasquez MD Unavailable Unavailable Celia Vasquez MD Unavailable Unavailable Celia Vasquez MD Unavailable Unavailable Celia Vasquez MD Unavailable Unavailable Celia Vasquez MD Unavailable Unavailable Celia Vasquez MD Unavailable Unavailable Celia Vasquez MD Unavailable Unavailable Celia Vasquez MD Unavailable Unavailable Celia Vasquez MD Unavailable Unavailable Celia Vasquez MD Unavailable Unavailable Celia Vasquez MD Unavailable Unavailable Celia Vasquez MD Unavailable Unavailable Celia Vasquez MD Unavailable Unavailable Celia Vasquez MD Unavailable Unavailable Celia Vasquez MD Unavailable Unavailable Celia Vasquez MD Unavailable Unavailable Celia Vasquez MD Unavailable Unavailable Celia Vasquez MD Unavailable Unavailable Celia Vasquez MD Unavailable Unavailable Celia Vasquez MD Unavailable Unavailable Celia Vasquez MD Unavailable Unavailable Celia Vasquez MD Unavailable Unavailable Celia Vasquez MD Unavailable Unavailable Celia Vasquez MD Unavailable Unavailable Celia Vasquez MD Unavailable Unavailable Celia Vasquez MD Unavailable Unavailable Celia Vasquez MD Unavailable Unavailable Celia Vasquez MD Unavailable Unavailable Celia Vasquez MD Unavailable Unavailable Celia Vasquez MD Unavailable Unavailable Doctor Provided, Family PHYS No Family Unavailable U navailable SWATHI CARROLL MD Unavailable Unavailable SWATHI CARROLL MD Unavailable Unavailable SWATHI CARROLL MD Unavailable Unavailable SWATHI CARROLL MD Unavailable Unavailable SWATHI CARROLL MD Unavailable Unavailable SWATHI CARROLL MD Unavailable Unavailable SWATHI CARROLL MD Unavailable Unavailable SWATHI CARROLL MD Unavailable Unavailable SWATHI CARROLL MD Unavailable Unavailable SWATHI CARROLL MD Unavailable Unavailable SWATHI CARROLL MD Unavailable Unavailable SWATHI CARROLL MD Unavailable Unavailable SWATHI CARROLL MD Unavailable Unavailable SWATHI CARROLL MD Unavailable Unavailable SWATHI CARROLL MD Unavailable Unavailable SWATHI CARROLL MD Unavailable Unavailable SWATHI CARROLL MD Unavailable Unavailable CHROSTSWATHI HUYNH MD Unavailable Unavailable CHROSTSWATHI HUYNH MD Unavailable Unavailable CHROSTSWATHI HUYNH MD Unavailable Unavailable CHROSTSWATHI HUYNH MD Unavailable Unavailable CHROSTSWATHI HUYNH MD Unavailable Unavailable CHROSTSWATHI HUYNH MD Unavailable Unavailable CHROSTSWATHI HUYNH MD Unavailable Unavailable CHROSTSWATHI HUYNH MD Unavailable Unavailable CHROSTSWATHI HUYNH MD Unavailable Unavailable CHROSTSWATHI HUYNH MD Unavailable Unavailable CHROSTSWATHI HUYNH MD Unavailable Unavailable CHROSTSWATHI HUYNH MD Unavailable Unavailable CHROSTOWSKISWATHI MD Unavailable Unavailable CHROSTOWSKISWATHI MD Unavailable Unavailable CHROSTOWSKISWATHI MD Unavailable Unavailable CHROSTOWSKISWATHI MD Unavailable Unavailable CHROSTSWATHI HUYNH MD Unavailable Unavailable CHROSTSWATHI HUYNH MD Unavailable Unavailable CHROSTSWATHI HUYNH MD Unavailable Unavailable CHROSTSWATHI HUYNH MD Unavailable Unavailable CHROSTSWATHI HUYNH MD Unavailable Unavailable CHROSTSWATHI HUYNH MD Unavailable Unavailable CHROSTSWATHI HUYNH MD Unavailable Unavailable MAJAK, R ABHILASH DPM Unavailable Unavailable MAJAK, R ABHILASH DPM Unavailable Unavailable MAJAK, R ABHILASH DPM Unavailable Unavailable MAJAK, R ABHILASH DPM Unavailable Unavailable MAJAK, R ABHILASH DPM Unavailable Unavailable MAJAK, R ABHILASH DPM Unavailable Unavailable MAJAK, R ABHILASH DPM Unavailable Unavailable MAJAK, R ABHILASH DPM Unavailable Unavailable MAJAK, R ABHILASH DPM Unavailable Unavailable MAJAK, R ABHILASH DPM Unavailable Unavailable MAJAK, R ABHILASH DPM Unavailable Unavailable MAJAK, R ABHILASH DPM Unavailable Unavailable MAJAK, R ABHILASH DPM Unavailable Unavailable MAJAK, R ABHILASH DPM Unavailable Unavailable MAJAK, R ABHILASH DPM Unavailable Unavailable MAJAK, R ABHILASH DPM Unavailable Unavailable MAJAK, R ABHILASH DPM Unavailable Unavailable MAJAK, R ABHILASH DPM Unavailable Unavailable MAJAK, R ABHILASH DPM Unavailable Unavailable MAJAK, R ABHILASH DPM Unavailable Unavailable MAJAK, R ABHILASH DPM Unavailable Unavailable MAJAK, R ABHILASH DPM Unavailable Unavailable MAJAK, R ABHILASH DPM Unavailable Unavailable MAJAK, R ABHILASH DPM Unavailable Unavailable MAJAK, R ABHILASH DPM Unavailable Unavailable MAJAK, R ABHILASH DPM Unavailable Unavailable MAJAK, R ABHILASH DPM Unavailable Unavailable MAJAK, R ABHILASH DPM Unavailable Unavailable MAJAK, R ABHILASH DPM Unavailable Unavailable MAJAK, R ABHILASH DPM Unavailable Unavailable Sparks, L Zara SUPERVISOR TICKET SALES Unavailable Unavailable Sparks, L Zara SUPERVISOR TICKET SALES Unavailable Unavailable Sparks, L Zara SUPERVISOR TICKET SALES Unavailable Unavailable Sparks, L Zara SUPERVISOR TICKET SALES Unavailable Unavailable Sparks, L Zara SUPERVISOR TICKET SALES Unavailable Unavailable Sparks, L Zara SUPERVISOR TICKET SALES Unavailable Unavailable Sparks, L Zara SUPERVISOR TICKET SALES Unavailable Unavailable Sparks, L Zara SUPERVISOR TICKET SALES Unavailable Unavailable Sparks, L Zara SUPERVISOR TICKET SALES Unavailable Unavailable Sparks, L Zara SUPERVISOR TICKET SALES Unavailable Unavailable Sparks, L Zara SUPERVISOR TICKET SALES Unavailable Unavailable Sparks, L Zara SUPERVISOR TICKET SALES Unavailable Unavailable Sparks, L Zara SUPERVISOR TICKET SALES Unavailable Unavailable Sparks, L Zara SUPERVISOR TICKET SALES Unavailable Unavailable Sparks, L Zara [employer] Unavailable Unavailable Sparks, L Zara SUPERVIS[employer] Unavailable Unavailable Sparks, L Zara SUPERVIS[employer] Unavailable Unavailable Sparks, L Zara SUPERVISOR [employer] Unavailable Unavailable Sparks, L Zara SUPERVISOR [employer] SALES Unavailable Unavailable Sparks, L Zara SUPERVISOR [employer] SAL[employer] Unavailable Unavailable Sparks, L Zara SUPERVISOR [employer] SAL[employer] Unavailable Unavailable Sparks, L Zara SUPERVISOR T[employer] SAL[employer] Unavailable Unavailable Sparks, L Zara SUPERVISOR [employer] SAL[employer] Unavailable Unavailable Sparks, L Zara SUPERVISOR TICKET SALES Unavailable Unavailable Sparks, L Zara SUPERVISOR [employer] SALES Unavailable Unavailable Sparks, L Zara SUPERVISOR [employer] SALES Unavailable Unavailable Sparks, L Zara SUPERVISOR TICKET SALES Unavailable Unavailable Sparks, L Zara SUPERVISOR T[employer] SALES Unavailable Unavailable Sparks, L Zara SUPERVISOR [employer] SAL[employer] Unavailable Unavailable Sparks, L Zara SUPERVISOR [employer] SAL[employer] Unavailable Unavailable Sparks, L Zara SUPERVISOR [employer] SAL[employer] Unavailable Unavailable Sparks, L Zara SUPERVISOR [employer] SAL[employer] Unavailable Unavailable Sparks, L Zara SUPERVISOR [employer] SAL[employer] Unavailable Unavailable Sparks, L Zara SUPERVISOR [employer] Unavailable Unavailable Sparks, L Zara SUPERVISOR [employer] Unavailable Unavailable Sparks, L Zara SUPERVISOR [employer] SAL[employer] Unavailable Unavailable Sparks, L Zara SUPERVISOR [employer] SAL[employer] Unavailable Unavailable Sparks, L Zara SUPERVISOR T[employer] SALES Unavailable Unavailable Sparks, L Zara SUPERVISOR T[employer] SAL[employer] Unavailable Unavailable Sparks, L Zara SUPERVISOR T[employer] SALES Unavailable Unavailable Sparks, L Zara SUPERVISOR [employer] Unavailable Unavailable Sparks, L Zara SUPERVISOR [employer] SAL[employer] Unavailable Unavailable Sparks, L Zara SUPERVISOR [employer] Unavailable Unavailable Rosemarie-Huitron, Lindsay DO Unavailable Unavailable Alto-Huitron, Lindsay DO Unavailable Unavailable Alto-Huitron, Lindsay DO Unavailable Unavailable Alto-Huitron, Lindsay DO Unavailable Unavailable Rosemarie-Huitron, Lindsay DO Unavailable Unavailable Alto-Huitron, Lindsay DO Unavailable Unavailable Alto-Huitron, Lindsay DO Unavailable Unavailable Rosemarie-Huitron, Lindsay DO Unavailable Unavailable Rosemarie-Huitron, Lindsay DO Unavailable Unavailable Rosemarie-Huitron, Lindsay DO Unavailable Unavailable Alto-Huitron, Lindsay DO Unavailable Unavailable Alto-Huitron, Lindsay DO Unavailable Unavailable Rosemarie-Huitron, Lindsay DO Unavailable Unavailable Rosemarie-Huitron, Lindsay DO Unavailable Unavailable Rosemarie-Huitron, Lindsay DO Unavailable Unavailable Alto-Huitron, Lindsay DO Unavailable Unavailable Rosemarie-Huitron, Lindsay DO Unavailable Unavailable Alto-Huitron, Lindsay DO Unavailable Unavailable Rosemarie-Huitron, Lindsay DO Unavailable Unavailable Rosemarie-Huitron, Lindsay DO Unavailable Unavailable Rosemarie-Huitron, Lindsay DO Unavailable Unavailable Alto-Huitron, Lindsay DO Unavailable Unavailable Alto-Huitron, Lindsay DO Unavailable Unavailable Alto-Huitron, Lindsay DO Unavailable Unavailable Alto-Huitron, Lindsay DO Unavailable Unavailable Alto-Huitron, Lindsay DO Unavailable Unavailable Rosemarie-Huitron, Lindsay DO Unavailable Unavailable Alto-Huitron, Lindsay DO Unavailable Unavailable Rosemarie-Huitron, Lindsay DO Unavailable Unavailable Alto-Huitron, Lindsay DO Unavailable Unavailable Alto-Huitron, Lindsay DO Unavailable Unavailable Alto-Huitron, Lindsay DO Unavailable Unavailable Rosemarie-Huitron, Lindsay DO Unavailable Unavailable Alto-Huitron, Lindsay DO Unavailable Unavailable Rosemarie-Huitron, Lindsay DO Unavailable Unavailable Rosemarie-Huitron, Lindsay DO Unavailable Unavailable Rosemarie-Huitron, Lindsay DO Unavailable Unavailable Rosemarie-Huitron, Lindsay DO Unavailable Unavailable Rosemarie-Huitron, Lindsay DO Unavailable Unavailable Alto-Huitron, Lindsay DO Unavailable Unavailable Rosemarie-Huitron, Lindsay DO Unavailable Unavailable Rosemarie-Huitron, Lindsay DO Unavailable Unavailable Alto-Huitron, Lindsay DO Unavailable Unavailable Rosemarie-Huitron, Lindsay DO Unavailable Unavailable Alto-Huitron, Lindsay DO Unavailable Unavailable Rosemarie-Huitron, Lindsay DO Unavailable Unavailable Rosemarie-Huitron, Lindsay DO Unavailable Unavailable Alto-Huitron, Lindsay DO Unavailable Unavailable Rosemarie-Huitron, Lindsay DO Unavailable Unavailable Rosemarie-Huitron, Lindsay DO Unavailable Unavailable Rosemarie-Huitron, Lindsay DO Unavailable Unavailable Alto-Huitron, Lindsay DO Unavailable Unavailable Rosemarie-Huitron, Lindsay DO Unavailable Unavailable Alto-Huitron, Lindsay DO Unavailable Unavailable Rosemarie-Huitron, Lindsay DO Unavailable Unavailable Rosemarie-Huitron, Lindsay DO Unavailable Unavailable Rosemarie-Huitron, Lindsay DO Unavailable Unavailable Rosemarie-Huitron, Lindsay DO Unavailable Unavailable Roseamrie-Huitron, Lindsay DO Unavailable Unavailable Alto-Huitron, Lindsay DO Unavailable Unavailable Rosemarie-Huitron, Lindsay DO Unavailable Unavailable Rosemarie-Huitron, Lindsay DO Unavailable Unavailable Rosemarie-Huitron, Lindsay DO Unavailable Unavailable Rosemarie-Huitron, Lindsay DO Unavailable Unavailable Alto-Huitron, Lindsay DO Unavailable Unavailable Rosemarie-Huitron, Lindsay DO Unavailable Unavailable Alto-Huitron, Lindsay DO Unavailable Unavailable Rosemarie-Huitron, Lindsay DO Unavailable Unavailable Rosemarie-Huitron, Lindsay DO Unavailable Unavailable Alto-Huitron, Lindsay DO Unavailable Unavailable Elkin, A Lesli PA Unavailable Unavailable Elkin, A Lesli PA Unavailable Unavailable Elkin, A Lesli PA Unavailable Unavailable Elkin, A Lesli PA Unavailable Unavailable Elkin, A Lesli PA Unavailable Unavailable Elkin, A Lesli PA Unavailable Unavailable Elkin, A Lesli PA Unavailable Unavailable Elkin, A Lesli PA Unavailable Unavailable Elkin, A Lesli PA Unavailable Unavailable Elkin, A Lesli PA Unavailable Unavailable Elkin, A Lesli PA Unavailable Unavailable Elkin, A Lesli PA Unavailable Unavailable Elkin, A Lesli PA Unavailable Unavailable Elkin, A Lesli PA Unavailable Unavailable Elkin, A Lesli PA Unavailable Unavailable Elkin, A Lesli PA Unavailable Unavailable Elkin, A Lesli PA Unavailable Unavailable Elkin, A Lesli PA Unavailable Unavailable Elkin, A Lesli PA Unavailable Unavailable Elkin, A Lesli PA Unavailable Unavailable Elkin, A Lesli PA Unavailable Unavailable Elkin, A Lesli PA Unavailable Unavailable Elkin, A Lesli PA Unavailable Unavailable Elkin, A Lesli PA Unavailable Unavailable Elkin, A Lesli PA Unavailable Unavailable Elkin, A Lesli PA Unavailable Unavailable Elkin, A Lesli PA Unavailable Unavailable Elkin, A Lesli PA Unavailable Unavailable Elkin, A Lesli PA Unavailable Unavailable Elkin, A Lesli PA Unavailable Unavailable Elkin, A Lesli PA Unavailable Unavailable Elkin, A Lesli PA Unavailable Unavailable Elkin, A Lesli PA Unavailable Unavailable Elkin, A Lesli PA Unavailable Unavailable Elkin, A Lesli PA Unavailable Unavailable Elkin, A Lesli PA Unavailable Unavailable Elkin, A Lesli PA Unavailable Unavailable Elkin, A Lesli PA Unavailable Unavailable Elkin, A Lesli PA Unavailable Unavailable Elkin, A Lesli PA Unavailable Unavailable Elkin, A Lesli PA Unavailable Unavailable Elkin, A Lesli PA Unavailable Unavailable Elkin, A Lesli PA Unavailable Unavailable Elkin, A Lesli PA Unavailable Unavailable Elkin, A Lesli PA Unavailable Unavailable Elkin, A Lesli PA Unavailable Unavailable Elkin, A Lesli PA Unavailable Unavailable Elkin, A Lesli PA Unavailable Unavailable Elkin, A Lesli PA Unavailable Unavailable Elkin, A Lesli PA Unavailable Unavailable Elkin, A Lesli PA Unavailable Unavailable Elkin, A Lesli PA Unavailable Unavailable Elkin, A Lesli PA Unavailable Unavailable Elkin, A Lesli PA Unavailable Unavailable Elkin, A Lesli PA Unavailable Unavailable NON, PHYSICIAN STAFF Unavailable Unavailable Buniak, Borys MD Unavailable Unavailable Buniak, Borys MD Unavailable Unavailable Buniak, Borys MD Unavailable Unavailable Buniak, Borys MD Unavailable Unavailable Buniak, Borys Unavailable Unavailable Buniak, Borys MD Unavailable Unavailable Buniak, Borys MD Unavailable Unavailable Buniak, Borys MD Unavailable Unavailable Buniak, Borys MD Unavailable Unavailable Buniak, Borys MD Unavailable Unavailable Buniak, Borys MD Unavailable Unavailable Buniak, Borys MD Unavailable Unavailable Buniak, Borys MD Unavailable Unavailable Buniak, Borys MD Unavailable Unavailable Buniak, Borys MD Unavailable Unavailable Buniak, Borys MD Unavailable Unavailable Buniak, Borys MD Unavailable Unavailable Buniak, Borys MD Unavailable Unavailable Buniak, Borys MD Unavailable Unavailable Buniak, Borys MD Unavailable Unavailable Buniak, Borys MD Unavailable Unavailable Buniak, Borys MD Unavailable Unavailable Buniak, Borys MD Unavailable Unavailable Buniak, Borys MD Unavailable Unavailable Buniak, Borys MD Unavailable Unavailable Buniak, Borys MD Unavailable Unavailable Buniak, Borys MD Unavailable Unavailable Buniak, Borys MD Unavailable Unavailable Buniak, Borys MD Unavailable Unavailable Buniak, Borys Unavailable Unavailable Buniak, Borys MD Unavailable Unavailable Buniak, Borys MD Unavailable Unavailable Buniak, Borys MD Unavailable Unavailable Buniak, Borys MD Unavailable Unavailable Buniak, Borys MD Unavailable Unavailable Buniak, Borys MD Unavailable Unavailable Buniak, Borys MD Unavailable Unavailable Buniak, Borys MD Unavailable Unavailable Buniak, Borys MD Unavailable Unavailable Buniak, Borys MD Unavailable Unavailable Buniak, Borys MD Unavailable Unavailable Buniak, Borys MD Unavailable Unavailable Buniak, Borys MD Unavailable Unavailable Buniak, Borys MD Unavailable Unavailable Buniak, Borys MD Unavailable Unavailable Buniak, Borys MD Unavailable Unavailable Buniak, Borys MD Unavailable Unavailable Buniak, Borys MD Unavailable Unavailable Buniak, Borys MD Unavailable Unavailable Buniak, Borys MD Unavailable Unavailable Buniak, Borys Unavailable Unavailable Buniak, Borys Unavailable Unavailable Buniak, Borys Unavailable Unavailable Buniak, Borys Unavailable Unavailable Buniak, Borys MD Unavailable Unavailable Buniak, Borys Unavailable Unavailable Buniak, Borys Unavailable Unavailable Buniak, Borys Unavailable Unavailable Buniak, Borys Unavailable Unavailable Buniak, Borys Unavailable Unavailable Buniak, Borys Unavailable Unavailable Buniak, Borys Unavailable Unavailable Buniak, Guilleys Unavailable Unavailable Buniak, Borys Unavailable Unavailable Buniak, Borys Unavailable Unavailable Buniak, Borys Unavailable Unavailable Buniak, Borys Unavailable Unavailable Buniak, Borys Unavailable Unavailable Buniak, Borys Unavailable Unavailable Buniak, Borys Unavailable Unavailable Buniak, Borys Unavailable Unavailable Buniak, Borys Unavailable Unavailable Buniak, Borys Unavailable Unavailable Buniak, Borys Unavailable Unavailable Buniak, Borys Unavailable Unavailable Buniak, Borys Unavailable Unavailable Buniak, Borys Unavailable Unavailable Buniak, Borys Unavailable Unavailable Buniak, Borys Unavailable Unavailable Buniak, Borys Unavailable Unavailable Buniak, Borys Unavailable Unavailable Buniak, Borys Unavailable Unavailable Buniak, Borys Unavailable Unavailable Buniak, Borys Unavailable Unavailable Buniak, Borys MD Unavailable Unavailable Buniak, Borys MD Unavailable Unavailable Buniak, Borys MD Unavailable Unavailable Buniak, Borys MD Unavailable Unavailable Buniak, Borys MD Unavailable Unavailable Buniak, Borys MD Unavailable Unavailable Buniak, Borys MD Unavailable Unavailable Buniak, Borys MD Unavailable Unavailable Buniak, Borys MD Unavailable Unavailable Buniak, Borys MD Unavailable Unavailable CHROSTOWSKI, SWATHI MD Unavailable Unavailable CHROSTOWSKI, SWATHI MD Unavailable Unavailable CHROSTOWSKI, SWATHI MD Unavailable Unavailable CHROSTOWSKI, SWATHI MD Unavailable Unavailable CHROSTOWSKI, SWATHI MD Unavailable Unavailable CHROSTOWSKI, SWATHI MD Unavailable Unavailable CHROSTOWSKI, SWATHI MD Unavailable Unavailable CHROSTOWSKI, SWATHI MD Unavailable Unavailable CHROSTOWSKI, SWATHI MD Unavailable Unavailable CHROSTOWSKI, SWATHI MD Unavailable Unavailable CHROSTOWSKI, SWATHI MD Unavailable Unavailable CHROSTOWSKI, SWATHI MD Unavailable Unavailable CHROSTOWSKI, SWATHI MD Unavailable Unavailable CHROSTOWSKI, SWATHI MD Unavailable Unavailable CHROSTOWSKI, SWATHI MD Unavailable Unavailable CHROSTOWSKI, SWATHI MD Unavailable Unavailable CHROSTOWSKI, SWATHI MD Unavailable Unavailable CHROSTOWSKI, SWATHI MD Unavailable Unavailable CHROSTOWSKI, SWATHI MD Unavailable Unavailable CHROSTOWSKI, SWATHI MD Unavailable Unavailable CHROSTOWSKI, SWATHI MD Unavailable Unavailable CHROSTOWSKI, SWATHI MD Unavailable Unavailable CHROSTOWSKI, SWATHI MD Unavailable Unavailable CHROSTOWSKI, SWATHI MD Unavailable Unavailable CHROSTOWSKI, SWATHI MD Unavailable Unavailable CHROSTOWSKI, SWATHI MD Unavailable Unavailable CHROSTOWSKI, SWATHI MD Unavailable Unavailable CHROSTOWSKI, SWATHI MD Unavailable Unavailable CHROSTOWSKI, SWATHI MD Unavailable Unavailable CHROSTOWSKI, SWATHI MD Unavailable Unavailable CHROSTOWSKI, SWATHI MD Unavailable Unavailable CHROSTOWSKI, SWATHI MD Unavailable Unavailable CHROSTOWSKI, SWATHI MD Unavailable Unavailable CHROSTOWSKI, SWATHI MD Unavailable Unavailable CHROSTOWSKI, SWATHI MD Unavailable Unavailable CHROSTOWSKI, SWATHI MD Unavailable Unavailable CHROSTOWSKI, SWATHI MD Unavailable Unavailable CHROSTOWSKI, SWATHI MD Unavailable Unavailable CHROSTOWSKI, SWATHI MD Unavailable Unavailable CHROSTOWSKI, SWATHI MD Unavailable Unavailable Salena Helms MD Unavailable Unavailable Salena Helms MD Unavailable Unavailable Ali, Salena Unavailable Unavailable Ali, Salena DEL ROSARIO Unavailable Unavailable Ali, Salena DEL ROSARIO Unavailable Unavailable Ali, Salena DEL ROSARIO Unavailable Unavailable Ali, Salena DEL ROSARIO Unavailable Unavailable Ali, Salena DEL ROSARIO Unavailable Unavailable Ali, Salena Unavailable Unavailable Ali, Salena Unavailable Unavailable Ali, Salena Unavailable Unavailable Ali, Salena Unavailable Unavailable Ali, Salena Unavailable Unavailable Ali, Salena Unavailable Unavailable Ali, Salena Unavailable Unavailable Ali, Salena DEL ROSARIO Unavailable Unavailable Ali, Salena DEL ROSARIO Unavailable Unavailable Ali, Salena Unavailable Unavailable Ali, Salena Unavailable Unavailable Ali, Salena MD Unavailable Unavailable Ali, Salena MD Unavailable Unavailable Ali, Salena MD Unavailable Unavailable Ali, Salena Unavailable Unavailable Ali, Salena Unavailable Unavailable Ali, Salena DEL ROSARIO Unavailable Unavailable Ali, Salena Unavailable Unavailable Ali, Salena MD Unavailable Unavailable Ali, Salena MD Unavailable Unavailable Ali, Salena MD Unavailable Unavailable Ali, Salena MD Unavailable Unavailable Ali, Salena Unavailable Unavailable Ali, Salena Unavailable Unavailable Ali, Salena DEL ROSARIO Unavailable Unavailable Ali, Salena DEL ROSARIO Unavailable Unavailable Ali, Salena DEL ROSARIO Unavailable Unavailable Ali, Salena DEL ROSARIO Unavailable Unavailable Ali, Salena DEL ROSARIO Unavailable Unavailable Ali, Salena Unavailable Unavailable Ali, Salena DEL ROSARIO Unavailable Unavailable Ali, Salena DEL ROSARIO Unavailable Unavailable Ali, Salena DEL ROSARIO Unavailable Unavailable Ali, Salena DEL ROSARIO Unavailable Unavailable Ali, Salena DEL ROSARIO Unavailable Unavailable Ali, Salena DEL ROSARIO Unavailable Unavailable Ali, Salena DEL ROSARIO Unavailable Unavailable Ali, Salena DEL ROSARIO Unavailable Unavailable Ali, Salena MD Unavailable Unavailable Ali, Salena DEL ROSARIO Unavailable Unavailable AliSalena MD Unavailable Unavailable Price Benites MD Unavailable Unavailable Price Benites MD Unavailable Unavailable Price Benites MD Unavailable Unavailable Price Benites MD Unavailable Unavailable Pirce Benites MD Unavailable Unavailable Price Benites MD Unavailable Unavailable Price Benites MD Unavailable Unavailable Price Benites MD Unavailable Unavailable Price Benites MD Unavailable Unavailable Price Benites MD Unavailable Unavailable Price Benites MD Unavailable Unavailable Price Benites MD Unavailable Unavailable Price Benites MD Unavailable Unavailable Price Benites MD Unavailable Unavailable Price Benites MD Unavailable Unavailable Price Benites MD Unavailable Unavailable Price Benites MD Unavailable Unavailable Kamari, Price Najera MD Unavailable Unavailable Kamari, J Dania MD Unavailable Unavailable Kamari, J Marylene MD Unavailable Unavailable Kamari, J Caridadlene MD Unavailable Unavailable Kamari, J Marylene MD Unavailable Unavailable Kamari, J Marylene MD Unavailable Unavailable Kamari, J Marylene MD Unavailable Unavailable Kamari, J Marylene MD Unavailable Unavailable Kamari, J Marylene MD Unavailable Unavailable Kamari, J Marylene MD Unavailable Unavailable Kamari, J Marylene MD Unavailable Unavailable Kamari, J Marylene MD Unavailable Unavailable Kamari, J Marylene MD Unavailable Unavailable Kamari, J Marylene MD Unavailable Unavailable Kamari, J Marylene MD Unavailable Unavailable Kamari, J Marylene MD Unavailable Unavailable Kamari, J Marylene MD Unavailable Unavailable Kamari, J Marylene MD Unavailable Unavailable Kamari, J Marylene MD Unavailable Unavailable Kamari, J Marylene MD Unavailable Unavailable Kamari, J Marylene MD Unavailable Unavailable Kamari, J Marylene MD Unavailable Unavailable Kamari, J Marylene MD Unavailable Unavailable Kamari, J Marylene MD Unavailable Unavailable Kamari, J Marylene MD Unavailable Unavailable Kamari, J Marylene MD Unavailable Unavailable Kamari, J Marylene MD Unavailable Unavailable Kamari, J Marylene MD Unavailable Unavailable Kamari, J Marylene MD Unavailable Unavailable Kamari, J Marylene MD Unavailable Unavailable Kamari, J Marylene MD Unavailable Unavailable Kamari, J Marylene MD Unavailable Unavailable Kamari, J Marylene MD Unavailable Unavailable Kamari, J Marylene MD Unavailable Unavailable Kamari, J Marylene MD Unavailable Unavailable Kamari, J Marylene MD Unavailable Unavailable Re-disclosure Warning The records that you are about to access may contain information from federally-assisted alcohol or drug abuse programs. If such information is present, then the following federally mandated warning applies: This information has been disclosed to you from records protected by federal confidentiality rules (42 CFR part 2). The federal rules prohibit you from making any further disclosure of this information unless further disclosure is expressly permitted by the written consent of the person to whom it pertains or as otherwise permitted by 42 CFR part 2. A general authorization for the release of medical or other information is NOT sufficient for this purpose. The Federal rules restrict any use of the information to criminally investigate or prosecute any alcohol or drug abuse patient.The records that you are about to access may contain highly sensitive health information, the redisclosure of which is protected by Article 27-F of the [facility] Public Health law. If you continue you may have access to information: Regarding HIV / AIDS; Provided by facilities licensed or operated by the [facility] Office of Mental Health; or Provided by the [facility] Office for People With Developmental Disabilities. If such information is present, then the following [facility] mandated warning applies: This information has been disclosed to you from confidential records which are protected by state law. State law prohibits you from making any further disclosure of this information without the specific written consent of the person to whom it pertains, or as otherwise permitted by law. Any unauthorized further disclosure in violation of state law may result in a fine or custodial sentence or both. A general authorization for the release of medical or other information is NOT sufficient authorization for further disc losure. Allergies and Adverse Reactions Type Description Substance Reaction Status Data Source(s ) BRANDNAME SARAH TYEMICHELLE TREMORS [facility] Drug allergy METFORMIN METFORMIN ANAPHYLAXIS [facility] Drug allergy FLUOXETINE FLUOXETINE RASH [facility] CLASS NSAID NSAID UNKNOWN [facility] CLASS SULFA (sulfonamide) SULFA (sulfonamide) HIVES [facility] Drug allergy metoclopramide metoclopramide [place] [place] Drug allergy fluoxetine fluoxetine Other, not liste d U PLEASE VERIFY REACTION/SEVERITY U [facility] Drug allergy metformin metformin LACTIC ACIDOSIS [facility] Drug allergy Sulfa (Sulfonamide Antibiotics) Sulfa (Sulfonami de Antibiotics) PRURITIS, HIVES [place] [facility] Drug allergy NSAIDS (Non-Steroidal Anti-Inflamma NSAI DS (Non-Steroidal Anti-Inflamma GI Upset [place] Drug allergy Sulfacetamide Sodium Sulfacetamide Hives Active eCW1 ([facility]) Family History Family Member Name Family Member Gender Family Member Status Date o f Status Description Data Source(s) Unknown Condition [facility] Unknown Condition [facility] Unknown Condition [facility] Unknown Condition [facility] Unknown Condition [facility] Unknown Condition [facility] Unknown Condition [facility] Unknown Condition [facility] Unknown Condition [facility] Encounters Encounter Providers Location Date Indications Data Source(s ) Outpatient Attender: Lindsay OrellanaHuitron DORefalexander er: Lindsay Houston-Huitron DO 07/30/2020 09:27:00 AM EST - 07/30/2020 04:57:00 PM EST Outpatient Attender: Lindsay Chapman DORefalexander er: Lindsay Houston-Huitron DO 07/29/2020 09:16:00 AM EST Outpatient Attender: Zara Sparks [employer] 07/24/2020 05:49:0 0 PM EST Outpatient Attender: Zara Sparks NPReferrer: Lindsay hedrickle-Huitron DO 07/24/2020 11:35:00 AM EST - 07/24/2020 12:15:00 PM EST Outpatient Attender: Antonio Wilkinson MD Main office [facility] 07/21/2020 10:45:00 AM EST [facility] ([facility] Attender: Frances Guerra MDReferrer: Lindsay Leotl e-Huitron DO 06/26/2020 08:20:12 PM EST [facility] Attender: Frances Guerra MDReferrer: Lindsay Leotl e-Huitron DO 06/26/2020 08:20:12 PM EST [facility] Attender: Frances Guerra MDReferrer: Lindsay Leotl e-Huitron DO 06/26/2020 08:20:12 PM EST [facility] Attender: Frances Guerra MDReferrer: Lindsay Leotl e-Huitron DO 06/26/2020 08:20:12 PM EST [facility] [place] [address] [address] 06/20/2020 12:00:00 AM EST [facility]CW[facility] ([facility]) [place] [address] [address] 06/20/2020 12:00:00 AM EST eCW1 ([facility]) [place] [address] [address] 06/19/2020 12:00:00 AM EST eCW1 ([facility]) [place] [address] [address] 06/16/2020 12:00:00 AM EST eCW1 ([facility]) Outpatient Attender: Lindsay Chapman DORjeanmarie er: Lindsay Chapman DO 05/30/2020 03:21:00 PM EST Attender: Frances BURKETTeferrer: Lindsay mcelroyHuitron DO 05/16/2020 08:20:11 PM EST [facility] Attender: Frances BURKETTeferrer: Lindsay mcelroyHuitron DO 05/16/2020 08:20:11 PM EST [facility] Outpatient Attender: Dania Benites MDConsultant: Frances soni MD 05/13/2020 10:29:00 AM EST E78.2,R19.5,E11.8,E55.9,A31.0,K92.1 [facility] E78.2,R19.5,E11.8,E55.9,A31.0,K92.1 Outpatient Attender: Henna [facility] MDConsultant: STAFF NON 04/30/2020 08:30:00 AM EDT - 04/30/2020 12:18:00 PM EDT [facility] Patient discharged. [place] [address] [address] 04/21/2020 12:00:00 AM EDT eCW1 ([facility]) Outpatient Attender: Lindsay Chapman DO 2019 12:18:00 PM EDT R19.5 R19.5 Outpatient Attender: Antonio Wilkinson MD [facility] office - [place] 04/16/2020 10:30:00 AM EDT MEDENT ([facility]) Outpatient Attender: Lindsay Holliday er: Lindsay Chapman DO 04/14/2020 08:50:00 AM EDT - 04/14/2020 10:36:00 AM EDT Outpatient Attender: ANDREW ORDAZP-Daisy Lemus/Dave/Oscar/Nash rice 04/10/2020 03:45:00 PM EDT MEDENT ([facility]) Outpatient Attender: Henna Moreira MDConsultant: STAFF NON 04/09/2020 10:45:00 AM EDT - 04/09/2020 12:27:00 PM EDT [facility] Patient discharged. Outpatient Attender: Lindsay Holliday er: Lindsay Chapman DO 03/21/2020 03:15:00 PM EDT Outpatient Attender: ABHILASH LIN [facility] Office 10/2019 03:30:00 PM EDT MEDENT ([facility] Outpatient Attender: SWATHI CARROLL MDReferrer: Bladimir BROWN 02/01/2020 09:55:00 AM EDT [facility]10.13[facility]D83.[facility] Attender: Jose Carlos BROWN 01/31/2020 08:39:00 AM EDT PAIN PAIN Unknown [address] [address] 01/24/2020 12:00:00 AM EDT eCW1 ([facility]) Outpatient Attender: Lindsay Chapman DO 2019 12:49:00 PM EDT E78.5,E11.9,E55.9 E78.5,E11.9,E55.9 Attender: Frances Guerra MDReferrer: Lindsay Solis DO 01/16/2020 08:20:07 PM EDT Gastroenterology and Hepatol ogy [facility] Outpatient Attender: Antonio Wilkinson MD Main office - [place] 01/14/2020 11:30:00 AM EDT MEDENT ([facility]) Outpatient Attender: SWATHI CARROLL MD Main Office 01/10/2020 09:15:00 AM EDT MEDENT ([facility] [place] [address] [address] 01/10/2020 12:00:00 AM EDT eCW1 ([facility]) Outpatient Attender: ANDREW LÓPEZ-Daisy Lemus/Dave/Oscar/R eindl 01/03/2020 10:15:00 AM EDT MEDENT ([facility] Outpatient Attender: Lindsay Holliday er: Lindsay Chapman DO 12/24/2019 01:47:00 PM EDT - 12/24/2019 03:32:00 PM EDT [place] [address] [address] 12/17/2019 12:00:00 AM EDT eCW1 ([facility]) Outpatient Attender: Salena Helms MD Main office - [place] 12/06/2019 12:15:00 PM EDT MEDENT ([facility]) Outpatient 11/30/2019 06:19:00 AM EDT [facility] Outpatient Attender: JAMES Lemus/Dave/Oscar/Reind l 11/21/2019 10:45:00 AM EDT MEDENT ([facility] [address] [address] 11/20/2019 12:00:00 AM EDT eCW1 ([facility] Outpatient Attender: Antonio Wilkinson MD Main office - [place] 11/14/2019 12:15:00 PM EDT MEDENT ([facility] [place] [address] [address] 11/14/2019 12:00:00 AM EDT eCW1 ([facility]) [facility] [address] [address] 11/08/2019 12:00:00 AM EDT eCW1 ([facility]) Outpatient Attender: Dania Benites MD 11/03/2019 08:28:00 AM EDT A31.0,J44.9 A31.0,J44.9 [facility] [address] [address] 11/01/2019 12:00:00 AM EDT eCW1 ([facility]) Outpatient Attender: Lindsay Holliday er: Lindsay Chapman DO 10/29/2019 01:49:00 PM EDT Outpatient Attender: Lindsay Mendoza: Oracio Vasquez MD 10/15/2019 10:48:00 AM EDT - 10/15/2019 01:04:00 PM EDT Outpatient Attender: Meng Vasquez MD 10/12/2019 02:03:00 PM EDT R05 R05 Outpatient Attender: Meng Garzon: Lindsay Lerma DO 10/12/2019 12:49:00 PM EDT - 10/12/2019 12:55:00 PM EDT [address] [address] 10/12/2019 12:00:00 AM EDT eCW1 ([facility]) [facility] [address] [place] [address], [place] [address] 10/11/2019 12:00:00 AM EDT eCW1 ([facility]) [facility] [address] [place] [address] [place] [address] 09/24/2019 12:00:00 AM EDT eCW1 ([facility]) [facility] [address] [place] [address] [address] 09/18/2019 12:00:00 AM EDT eCW1 ([facility]) [address] [address] 09/17/2019 12:00:00 AM EDT eCW1 ([facility]) Outpatient Attender: ANDREW Lemus/Henderson/Oscar/R eindl 08/14/2019 12:45:00 PM EST [facility]ENT ([facility] Outpatient 08/10/2019 01:02:00 PM EST [facility] Outpatient Attender: ANDREW Lemus/Henderson/Oscar/R eindl 07/30/2019 07:45:00 AM EST MEDENT ([facility] [address] [address] 07/23/2019 12:00:00 AM EST eCW1 ([facility]) [facility] [address] [address] 07/19/2019 12:00:00 AM EST eCW1 ([facility]) Outpatient Attender: SWATHI CARROLL MD 06/29/2019 02: 46:00 PM EST D83.9 D83.9 Outpatient Attender: Lesli BROWN 06/28/2019 12 :13:00 PM EST CHRONIC HIP/BACK PAIN CHRONIC HIP/BACK PAIN Outpatient Attender: Lindsay MCGARRYeferrer: No Family Doctor Provided 06/26/2019 04:00:00 PM EST - 06/26/2019 05:36:00 PM EST Outpatient 06/24/2019 06:43:00 PM EST [facility] Outpatient Attender: Salena Helms MD Main office - [place] 06/20/2019 01:15:00 PM EST MEDENT ([facility]) [facility] [address] [address] 06/19/2019 12:00:00 AM EST eCW1 ([facility]) Outpatient Attender: Antonio Wilkinson MD Main office - [place] 06/18/2019 10:15:00 AM EST MEDENT ([facility]) [facility] [address] [address] 06/14/2019 12:00:00 AM EST eCW1 ([facility]) [facility] [place] [address] [address] 06/04/2019 12:00:00 AM EST eCW1 ([facility]) Outpatient Attender: Lindsay Chapman DO 2018 02:49:00 PM EST SCREEN SCREEN Immunizations Vaccine Date Status Description Data Source(s) Pneumococcal conjugate PCV 13 04/14/2020 12:00:00 AM EDT complet ed pneumococcal conjugate PCV 13 Pneumococcal conjugate PCV 13 04/14/2020 12:00:00 AM EDT complet ed pneumococcal conjugate PCV 13 Pneumococcal conjugate PCV 13 04/14/2020 12:00:00 AM EDT complet ed pneumococcal conjugate PCV 13 Pneumococcal conjugate PCV 13 04/14/2020 12:00:00 AM EDT complet ed pneumococcal conjugate PCV 13 IIV3. This is one of two codes replacing CVX 15, which is being retired. 03/19/2020 12:00:00 AM EDT completed influenza vaccine, inactivated [facility] IIV3. This is one of two codes replacing CVX 15, which is being retired. 03/19/2020 12:00:00 AM EDT completed influenza vaccine, inactivated [facility] IIV3. This is one of two codes replacing CVX 15, which is being retired. 03/19/2020 12:00:00 AM EDT completed influenza vaccine, inactivated [facility] IIV3. This is one of two codes replacing CVX 15, which is being retired. 03/19/2020 12:00:00 AM EDT completed influenza vaccine, inactivated [facility] IIV3. This is one of two codes replacing CVX 15, which is being retired. 03/19/2020 12:00:00 AM EDT completed influenza vaccine, inactivated [facility] Tdap 12/24/2019 12:00:00 AM EDT completed tetan us, diphtheria, acell pertussis 7yrs &up Tdap 12/24/2019 12:00:00 AM EDT completed tetan us, diphtheria, acell pertussis 7yrs &up Tdap 12/24/2019 12:00:00 AM EDT completed tetan us, diphtheria, acell pertussis 7yrs &up Tdap 12/24/2019 12:00:00 AM EDT completed tetan us, diphtheria, acell pertussis 7yrs &up Tdap 12/24/2019 12:00:00 AM EDT completed tetan us, diphtheria, acell pertussis 7yrs &up Tdap 12/24/2019 12:00:00 AM EDT completed tetan us, diphtheria, acell pertussis 7yrs &up Tdap 12/24/2019 12:00:00 AM EDT completed tetan us, diphtheria, acell pertussis 7yrs &up Medications Medication Brand Name Start Date Product Form Dose Route Admi nistrative Instructions Pharmacy Instructions Status Indications Reaction Description Data Source(s) Enalapril Maleate 2.5 MG Oral Tablet Enalapril Maleate 11:07:56 AM EST 0 active [facility] Enalapril Maleate 2.5 MG Oral Tablet Enalapril Maleate 11:07:56 AM EST 0 active [facility] Dexamethasone 6 MG Oral Tablet Dexamethasone 07/27/2020 10:06:[address] 6 MG active [facility] Dexamethasone 6 MG Oral Tablet Dexamethasone 07/27/2020 10:06:[address] 6 MG active [facility] 4 mg 07/27/2020 12:00:00 AM EST tablet 15 TAKE 1 & 1/2 TABLETS BY MOUTH ONCE DAILY TAKE 1 & 1/2 TABLETS BY MOUTH ONCE DAILY SOLD: 07/27/2020 [facility] Enalapril Maleate 2.5 MG Oral Tablet Enalapril Maleate 06/2021 09:19:21 AM EST 2.5 MG completed [facility] Enalapril Maleate 2.5 MG Oral Tablet Enalapril Maleate 06/2021 09:19:21 AM EST 2.5 MG completed [facility] Enalapril Maleate 2.5 MG Oral Tablet Enalapril Maleate 06/2021 09:19:21 AM EST 2.5 MG completed [facility] 2.5 mg 07/22/2020 12:00:00 AM EST tablet 90 TAKE ONE TABLET BY MOUTH EVERY DAY TAKE ONE TABLET BY MOUTH EVERY DAY SOLD: 07/27/2020 [facility] 1 mg 07/21/2020 12:00:00 AM EST tablet 30 TAKE ONE TABLET BY MOUTH EVERY DAY TAKE ONE TABLET BY MOUTH EVERY DAY SOLD: 07/27/2020 [facility] 62.5 mcg/actuation 07/17/2020 12:00:00 AM EST blister with d evice 30 INHALE ONE PUFF BY MOUTH EVERY DAY INHALE ONE PUFF BY MOUTH EVERY DAY SOLD: 07/21/2020 [facility] 250 mg 06/22/2020 12:00:00 AM EST tablet 30 TAKE ONE TABLET BY MOUTH EVERY DAY TAKE ONE TABLET BY MOUTH EVERY DAY SOLD: 06/22/2020 [facility] 250 mg 06/22/2020 12:00:00 AM EST tablet 30 TAKE ONE TABLET BY MOUTH EVERY DAY TAKE ONE TABLET BY MOUTH EVERY DAY SOLD: 07/21/2020 [facility] 60 mg 06/20/2020 12:00:00 AM EST tablet 180 TAKE ONE TABLET BY MOUTH FOUR TIMES A DAY TAKE ONE TABLET BY MOUTH FOUR TIMES A DAY SOLD: 06/21/2020 [facility] Sertraline 100 MG Oral Tablet Sertraline 06/19/2020 09:41:35 AM EST 0 active [facility] Sertraline 100 MG Oral Tablet Sertraline 06/19/2020 09:41:35 AM EST 0 active [facility] Sertraline 100 MG Oral Tablet Sertraline 06/19/2020 09:41:35 AM EST 0 active [facility] cefdinir 300 MG Oral Capsule Cefdinir 300 MG Cefdinir 300 MG 06/19/2020 12:00:00 AM EST active Cefdinir 300 MG e CW1 ([facility]) Albuterol 0.833 MG/ML / Ipratropium Brom thor 0.167 MG/ML Inhalant Solution Ipratropium-Albuterol 0.5-2.5 (3) MG/3ML Ipratropium-Albuterol 0.5-2.5 (3) MG/3ML 06/19/2020 12:00:00 AM EST 3.0 {ml_as_needed} active Ipratropium-Albuterol 0.5-2.5 (3) MG/3ML eCW1 ([facility]) 0.5 mg-3 mg(2.5 mg base)/3 mL 06/19/2020 12:00:0 0 AM EST solution for nebulization 180 INHALE 1 VIAL VIA NEBULIZER EVER Y 6 HOURS NEEDED INHALE 1 VIAL VIA NEBULIZER EVERY 6 HOURS NEEDED SOLD: 06/20/2020 [facility] Albuterol 0.833 MG/ML / Ipratropium Brom thor 0.167 MG/ML Inhalant Solution Ipratropium-Albuterol 0.5-2.5 (3) MG/3ML Ipratropium-Albuterol 0.5-2.5 (3) MG/3ML 06/19/2020 12:00:00 AM EST 3.0 {ml_as_needed} active Ipratropium-Albuterol 0.5-2.5 (3) MG/3ML eCW1 ([facility]) 400 mg 06/19/2020 12:00:00 AM EST tablet 120 TAKE FOUR TABLETS BY MOUTH EVERY DAY TAKE FOUR TABLETS BY MOUTH EVERY DAY SOLD: 07/21/2020 [facility] Albuterol 0.833 MG/ML / Ipratropium Brom thor 0.167 MG/ML Inhalant Solution Ipratropium-Albuterol 0.5-2.5 (3) MG/3ML Ipratropium-Albuterol 0.5-2.5 (3) MG/3ML 06/19/2020 12:00:00 AM EST 3.0 {ml_as_needed} active Ipratropium-Albuterol 0.5-2.5 (3) MG/3ML eCW1 ([facility]) Rifampin 300 MG Oral Capsule RIFAMPIN 06/19/2020 12:00:00 AM EST caps ule 60 TAKE TWO CAPSULES BY MOUTH EVERY DAY TAKE TWO CAPSULES BY MOUTH EVERY DAY SOLD: 06/21/2020 [facility] 300 mg 06/19/2020 12:00:00 AM EST capsule 20 TAKE ONE CAPSULE BY MOUTH TWICE A DAY FOR 10 DAYS TAKE ONE CAPSULE BY MOUTH TWICE A DAY FOR 10 DAYS SOLD : 06/20/2020 [facility] 400 mg 06/19/2020 12:00:00 AM EST tablet 120 TAKE FOUR TABLETS BY MOUTH EVERY DAY TAKE FOUR TABLETS BY MOUTH EVERY DAY SOLD: 06/21/2020 [facility] 2.5 mg 06/19/2020 12:00:00 AM EST tablet 12 TAKE THREE TABLETS BY MOUTH ONCE WEEKLY , EVERY TUESDAY TAKE THREE TABLETS BY MOUTH ONCE WEEKLY , EVERY TUESDAY SOLD: 07/21/2020 [facility] cefdinir 300 MG Oral Capsule Cefdinir 300 MG Cefdinir 300 MG 06/19/2020 12:00:00 AM EST active Cefdinir 300 MG e CW1 ([facility]) 100 mg 06/19/2020 12:00:00 AM EST tablet 30 TAKE ONE TABLET BY MOUTH EVERY DAY TAKE ONE TABLET BY MOUTH EVERY DAY SOLD: 07/21/2020 [facility] 100 mg 06/19/2020 12:00:00 AM EST tablet 30 TAKE ONE TABLET BY MOUTH EVERY DAY TAKE ONE TABLET BY MOUTH EVERY DAY SOLD: 06/21/2020 [facility] cefdinir 300 MG Oral Capsule Cefdinir 300 MG Cefdinir 300 MG 06/19/2020 12:00:00 AM EST active Cefdinir 300 MG e CW1 ([facility]) 2.5 mg 06/19/2020 12:00:00 AM EST tablet 12 TAKE THREE TABLETS BY MOUTH ONCE WEEKLY , EVERY TUESDAY TAKE THREE TABLETS BY MOUTH ONCE WEEKLY , EVERY TUESDAY SOLD: 06/21/2020 [facility] Rifampin 300 MG Oral Capsule RIFAMPIN 06/19/2020 12:00:00 AM EST caps ule 60 TAKE TWO CAPSULES BY MOUTH EVERY DAY TAKE TWO CAPSULES BY MOUTH EVERY DAY SOLD: 07/21/2020 [facility] 20 mg 05/23/2020 12:00:00 AM EST tablet 30 TAKE ONE TABLET BY MOUTH AT BEDTIME TAKE ONE TABLET BY MOUTH AT BEDTIME SOLD: 06/21/2020 [facility] 300 mg 05/23/2020 12:00:00 AM EST capsule 90 TAKE ONE CAPSULE BY MOUTH THREE TIMES A DAY TAKE ONE CAPSULE BY MOUTH THREE TIMES A DAY SOLD: 05/25/2020 [facility] 300 mg 05/23/2020 12:00:00 AM EST capsule 90 TAKE ONE CAPSULE BY MOUTH THREE TIMES A DAY TAKE ONE CAPSULE BY MOUTH THREE TIMES A DAY SOLD: 07/21/2020 [facility] 20 mg 05/23/2020 12:00:00 AM EST tablet 30 TAKE ONE TABLET BY MOUTH AT BEDTIME TAKE ONE TABLET BY MOUTH AT BEDTIME SOLD: 05/25/2020 [facility] 2 mg 05/23/2020 12:00:00 AM EST tablet 225 TAKE 1 TABLET BY MOUTH EVERY MORNING , 1/2 TABLET AT 2PM. AND 1 TABLET AT BEDTIME TAKE 1 TABLET BY MOUTH EVERY MORNING , 1/2 TABLET AT 2PM. AND 1 TABLET AT BEDTIME SOLD: 05/25/2020 [facility] 300 mg 05/23/2020 12:00:00 AM EST capsule 90 TAKE ONE CAPSULE BY MOUTH THREE TIMES A DAY TAKE ONE CAPSULE BY MOUTH THREE TIMES A DAY SOLD: 06/21/2020 [facility] 20 mg 05/23/2020 12:00:00 AM EST tablet 30 TAKE ONE TABLET BY MOUTH AT BEDTIME TAKE ONE TABLET BY MOUTH AT BEDTIME SOLD: 07/21/2020 [facility] 113-14 mcg/actuation 05/22/2020 12:00:00 AM EST aerosol powdr breath activated 1 INHALE 2 PUFFS BY MOUTH TWO TIME S A DAY INHALE 2 PUFFS BY MOUTH TWO TIMES A DAY SOLD: 06/21/2020 [facility] 113-14 mcg/actuation 05/22/2020 12:00:00 AM EST aerosol powdr breath activated 1 INHALE 2 PUFFS BY MOUTH TWO TIME S A DAY INHALE 2 PUFFS BY MOUTH TWO TIMES A DAY SOLD: 07/21/2020 [facility] 113-14 mcg/actuation 05/22/2020 12:00:00 AM EST aerosol powdr breath activated 1 INHALE 2 PUFFS BY MOUTH TWO TIME S A DAY INHALE 2 PUFFS BY MOUTH TWO TIMES A DAY SOLD: 05/25/2020 [facility] Famotidine 20 MG Oral Tablet Famotidine 05/21/2020 06:37:14 PM EST 0 active [facility] Famotidine 20 MG Oral Tablet Famotidine 05/21/2020 06:37:14 PM EST 0 active [facility] Famotidine 20 MG Oral Tablet Famotidine 05/21/2020 06:37:14 PM EST 0 active [facility] Famotidine 20 MG Oral Tablet Famotidine 05/21/2020 06:37:14 PM EST 0 [facility] gabapentin 300 MG Oral Capsule Gabapentin Gabapentin 2019 06:37:12 PM EST 0 [facility] gabapentin 300 MG Oral Capsule Gabapentin Gabapentin 2019 06:37:12 PM EST 0 [facility] gabapentin 300 MG Oral Capsule Gabapentin Gabapentin 2019 06:37:12 PM EST 0 [facility] gabapentin 300 MG Oral Capsule Gabapentin Gabapentin 2019 06:37:12 PM EST 0 [facility] 10 mg 05/16/2020 12:00:00 AM EST capsule 60 TAKE ONE CAPSULE BY MOUTH TWICE A DAY NEEDED FOR PAIN TAKE ONE CAPSULE BY MOUTH TWICE A DAY NEEDED FOR PAIN SOLD: 05/25/2020 [facility] 8 mg 05/16/2020 12:00:00 AM EST tablet,disintegrating [address] ONE TABLET UNDER THE TONGUE TWICE A DAY NEEDED PLACE ONE TABLET UNDER THE TONGUE TWICE A DAY NEEDED SOLD: 05/25/2020 [facility] 0.3 % 04/26/2020 12:00:00 AM EDT drops 5 INSTILL ONE DROP INTO THE LEFT EYE FOUR TIMES A DAY DIRECTED , START 3 DAYS PRIOR TO SURGERY INSTILL ONE DROP INTO THE LEFT EYE FOUR TIMES A DAY DIRECTED , START 3 DAYS PRIOR TO SURGERY SOLD: 04/26/2020 [facility] 1 % 04/26/2020 12:00:00 AM EDT drops,suspension 5 INSTILL ONE DROP INTO THE LEFT EYE FOUR TIMES A DAY DIRECTED, START THE DAY OF SURGERY AFTER YOU GET HOME INSTILL ONE DROP INTO THE LEFT EYE FOUR TIMES A DAY DIRECTED, START THE DAY OF SURGERY AFTER YOU GET HOME SOLD: 04/26/2020 [facility] 10 mg 04/24/2020 12:00:00 AM EDT tablet 30 TAKE ONE TABLET BY MOUTH EVERY DAY FOR ALLERGIC RHINITIS TAKE ONE TABLET BY MOUTH EVERY DAY FOR A LLERGIC RHINITIS SOLD: 07/21/2020 [facility] montelukast 10 MG Oral Tablet MONTELUKAST SODIUM 04/24/2020 12:0 0:00 AM EDT tablet 30 TAKE ONE TABLET BY MOUTH AT BEDT CINTHIA FOR ALLERGIC RHINITIS TAKE ONE TABLET BY MOUTH AT BEDTIME FOR ALLERGIC RHINITIS SOLD: 06/21/2020 [facility] atorvastatin 40 MG Oral Tablet ATORVASTATIN CALCIUM 04/24/2020 1 2:00:00 AM EDT tablet 30 TAKE ONE TABLET BY MOUTH EVERY E VENING TAKE ONE TABLET BY MOUTH EVERY EVENING SOLD: 05/25/2020 [facility] Rifampin 300 MG Oral Capsule RIFAMPIN 04/24/2020 12:00:00 AM EDT caps ule 60 TAKE TWO CAPSULES BY MOUTH EVERY DAY TAKE TWO CAPSULES BY MOUTH EVERY DAY SOLD: 05/25/2020 [facility] Esomeprazole 40 MG Delayed Release Oral Capsule ESOMEPRAZOLE MAGNESIUM 04/24/2020 12:00:00 AM EDT capsule,delayed release(DR/EC) 60 TAKE ONE CAPSULE BY MOUTH TWICE A DAY TAKE ONE CAPSULE BY MOUTH TWICE A DAY SOLD: 04/26/2020 [facility] Esomeprazole 40 MG Delayed Release Oral Capsule ESOMEPRAZOLE MAGNESIUM 04/24/2020 12:00:00 AM EDT capsule,delayed release(DR/EC) 60 TAKE ONE CAPSULE BY MOUTH TWICE A DAY TAKE ONE CAPSULE BY MOUTH TWICE A DAY SOLD: 06/21/2020 [facility] montelukast 10 MG Oral Tablet MONTELUKAST SODIUM 04/24/2020 12:0 0:00 AM EDT tablet 30 TAKE ONE TABLET BY MOUTH AT BEDT CINTHIA FOR ALLERGIC RHINITIS TAKE ONE TABLET BY MOUTH AT BEDTIME FOR ALLERGIC RHINITIS SOLD: 04/26/2020 [facility] 250 mg 04/24/2020 12:00:00 AM EDT tablet 30 TAKE ONE TABLET BY MOUTH EVERY DAY TAKE ONE TABLET BY MOUTH EVERY DAY SOLD: 05/29/2020 [facility] 81 mg 04/24/2020 12:00:00 AM EDT tablet,delayed release (DR/EC) 30 TAKE ONE TABLET BY MOUTH EVERY DAY TAKE ONE TABLET BY MOUTH EVERY DAY SOLD: 05/25/2020 [facility] 10 mg 04/24/2020 12:00:00 AM EDT tablet 30 TAKE ONE TABLET BY MOUTH EVERY DAY FOR ALLERGIC RHINITIS TAKE ONE TABLET BY MOUTH EVERY DAY FOR A LLERGIC RHINITIS SOLD: 05/25/2020 [facility] atorvastatin 40 MG Oral Tablet ATORVASTATIN CALCIUM 04/24/2020 1 2:00:00 AM EDT tablet 30 TAKE ONE TABLET BY MOUTH EVERY E VENING TAKE ONE TABLET BY MOUTH EVERY EVENING SOLD: 07/21/2020 [facility] montelukast 10 MG Oral Tablet MONTELUKAST SODIUM 04/24/2020 12:0 0:00 AM EDT tablet 30 TAKE ONE TABLET BY MOUTH AT BEDT CINTHIA FOR ALLERGIC RHINITIS TAKE ONE TABLET BY MOUTH AT BEDTIME FOR ALLERGIC RHINITIS SOLD: 05/25/2020 [facility] Rifampin 300 MG Oral Capsule RIFAMPIN 04/24/2020 12:00:00 AM EDT caps ule 60 TAKE TWO CAPSULES BY MOUTH EVERY DAY TAKE TWO CAPSULES BY MOUTH EVERY DAY SOLD: 04/26/2020 [facility] 250 mg 04/24/2020 12:00:00 AM EDT tablet 30 TAKE ONE TABLET BY MOUTH EVERY DAY TAKE ONE TABLET BY MOUTH EVERY DAY SOLD: 04/26/2020 [facility] atorvastatin 40 MG Oral Tablet ATORVASTATIN CALCIUM 04/24/2020 1 2:00:00 AM EDT tablet 30 TAKE ONE TABLET BY MOUTH EVERY E VENING TAKE ONE TABLET BY MOUTH EVERY EVENING SOLD: 04/26/2020 [facility] atorvastatin 40 MG Oral Tablet ATORVASTATIN CALCIUM 04/24/2020 1 2:00:00 AM EDT tablet 30 TAKE ONE TABLET BY MOUTH EVERY E VENING TAKE ONE TABLET BY MOUTH EVERY EVENING SOLD: 06/21/2020 [facility] montelukast 10 MG Oral Tablet MONTELUKAST SODIUM 04/24/2020 12:0 0:00 AM EDT tablet 30 TAKE ONE TABLET BY MOUTH AT BEDT CINTHIA FOR ALLERGIC RHINITIS TAKE ONE TABLET BY MOUTH AT BEDTIME FOR ALLERGIC RHINITIS SOLD: 07/21/2020 [facility] 81 mg 04/24/2020 12:00:00 AM EDT tablet,delayed release (DR/EC) 30 TAKE ONE TABLET BY MOUTH EVERY DAY TAKE ONE TABLET BY MOUTH EVERY DAY SOLD: 07/21/2020 [facility] 10 mg 04/24/2020 12:00:00 AM EDT tablet 30 TAKE ONE TABLET BY MOUTH EVERY DAY FOR ALLERGIC RHINITIS TAKE ONE TABLET BY MOUTH EVERY DAY FOR A LLERGIC RHINITIS SOLD: 04/26/2020 [facility] 81 mg 04/24/2020 12:00:00 AM EDT tablet,delayed release (DR/EC) 30 TAKE ONE TABLET BY MOUTH EVERY DAY TAKE ONE TABLET BY MOUTH EVERY DAY SOLD: 04/26/2020 [facility] 40 mg 04/24/2020 12:00:00 AM EDT capsule,delayed release (DR/EC) 60 TAKE ONE CAPSULE BY MOUTH TWICE A DAY TAKE ONE CAPSULE BY MOUTH TWICE A DAY SOLD: 07/21/2020 [facility] 10 mg 04/24/2020 12:00:00 AM EDT tablet 30 TAKE ONE TABLET BY MOUTH EVERY DAY FOR ALLERGIC RHINITIS TAKE ONE TABLET BY MOUTH EVERY DAY FOR A LLERGIC RHINITIS SOLD: 06/21/2020 [facility] 81 mg 04/24/2020 12:00:00 AM EDT tablet,delayed release (DR/EC) 30 TAKE ONE TABLET BY MOUTH EVERY DAY TAKE ONE TABLET BY MOUTH EVERY DAY SOLD: 06/21/2020 [facility] Aspirin 81 MG Delayed Release Oral Tablet Aspirin 04/23/2020 0 7:47:22 AM EDT 81 MG [facility] Aspirin 81 MG Delayed Release Oral Tablet Aspirin 04/23/2020 0 7:47:22 AM EDT 81 MG [facility] Aspirin 81 MG Delayed Release Oral Tablet Aspirin 04/23/2020 0 7:47:22 AM EDT 81 MG [facility] Aspirin 81 MG Delayed Release Oral Tablet Aspirin 04/23/2020 0 7:47:22 AM EDT 81 MG [facility] montelukast 10 MG Oral Tablet Montelukast Montelukast 04/23/2020 07:45:53 AM EDT 0 active [facility] montelukast 10 MG Oral Tablet Montelukast Montelukast 04/23/2020 07:45:53 AM EDT 0 [facility] montelukast 10 MG Oral Tablet Montelukast Montelukast 04/23/2020 07:45:53 AM EDT 0 [facility] montelukast 10 MG Oral Tablet Montelukast Montelukast 04/23/2020 07:45:53 AM EDT 0 [facility] Esomeprazole 40 MG Delayed Release Oral Capsule Esomep razole Magnesium Esomeprazole Magnesium 04/23/2020 07:45:[address] [facility] Esomeprazole 40 MG Delayed Release Oral Capsule Esomep razole Magnesium Esomeprazole Magnesium 04/23/2020 07:45:[address] [facility] Esomeprazole 40 MG Delayed Release Oral Capsule Esomep razole Magnesium Esomeprazole Magnesium 04/23/2020 07:45:[address] [facility] Esomeprazole 40 MG Delayed Release Oral Capsule Esomep razole Magnesium Esomeprazole Magnesium 04/23/2020 07:45:51 AM EDT 0 active Loratadine 04/23/2020 07:45:48 AM EDT 0 active Loratadine 04/23/2020 07:45:48 AM EDT 0 active Loratadine 04/23/2020 07:45:48 AM EDT 0 active Loratadine 04/23/2020 07:45:48 AM EDT 0 active 500 million cell 04/23/2020 12:00:00 AM EDT tablet 60 TAKE ONE TABLET BY MOUTH TWICE A DAY TAKE ONE TABLET BY MOUTH TWICE A DAY SOLD: 04/26/2020 [facility] Ethambutol Hydrochloride 400 MG Oral Tablet ETHAMBUTOL HCL 04/23/2020 12:00:00 AM EDT tablet 120 TAKE FOUR TABLETS BY MOUTH E VERY DAY TAKE FOUR TABLETS BY MOUTH EVERY DAY SOLD: 04/26/2020 [facility] 400 mg 04/23/2020 12:00:00 AM EDT tablet 120 TAKE FOUR TABLETS BY MOUTH EVERY DAY TAKE FOUR TABLETS BY MOUTH EVERY DAY SOLD: 05/25/2020 [facility] Respiclick 113/14 [employer] Respiclick 113/14 04/23/2020 12:00: 00 AM EDT RESPIRATORY active MEDENT ([facility], ) 113-14 mcg/actuation 04/23/2020 12:00:00 AM EDT aerosol powdr breath activated 1 INHALE ONE PUFF BY MOUTH TWICE A DAY INHA LE ONE PUFF BY MOUTH TWICE A DAY SOLD: 04/26/2020 [facility] 120 ACTUAT Fluticasone propionate 0.115 MG/ACTUAT / salmeterol 0.021 MG/ACTUAT Metered Dose Inhaler [Advair] Advair HFA 04/21/2020 12:00:00 AM EDT RESPIRATORY completed MEDENT ( [facility], ) 0.5 ML Streptococcus pneumoniae serotype 1 capsular antigen diphtheria [id number] protein conjugate vaccine 0.0044 MG/ML / Streptococcus pneumoniae serotype 14 capsular antigen diphtheria [id number] protein conjugate vaccine 0.0044 MG/ML / Streptococcus pneumonia Prevnar 13 (PF) (pneumoc 13-rancho conj-dip cr(PF)) 0.5 mL intramuscular syringe Prevnar 13 (PF) (pneumoc 13-rancho conj-dip cr(PF)) 0.5 mL intramuscular syringe 04/14/2020 08:50:46 AM EDT 0.5 ML [facility] 0.5 ML Streptococcus pneumoniae serotype 1 capsular antigen diphtheria [id number] protein conjugate vaccine 0.0044 MG/ML / Streptococcus pneumoniae serotype 14 capsular antigen diphtheria [id number] protein conjugate vaccine 0.0044 MG/ML / Streptococcus pneumonia Prevnar 13 (PF) (pneumoc 13-rancho conj-dip cr(PF)) 0.5 mL intramuscular syringe Prevnar 13 (PF) (pneumoc 13-rancho conj-dip cr(PF)) 0.5 mL intramuscular syringe 04/14/2020 08:50:46 AM EDT 0.5 ML [facility] 0.5 ML Streptococcus pneumoniae serotype 1 capsular antigen diphtheria [id number] protein conjugate vaccine 0.0044 MG/ML / Streptococcus pneumoniae serotype 14 capsular antigen diphtheria [id number] protein conjugate vaccine 0.0044 MG/ML / Streptococcus pneumonia Prevnar 13 (PF) (pneumoc 13-rancho conj-dip cr(PF)) 0.5 mL intramuscular syringe Prevnar 13 (PF) (pneumoc 13-rancho conj-dip cr(PF)) 0.5 mL intramuscular syringe 04/14/2020 08:50:46 AM EDT 0.5 ML [facility] 0.5 ML Streptococcus pneumoniae serotype 1 capsular antigen diphtheria [id number] protein conjugate vaccine 0.0044 MG/ML / Streptococcus pneumoniae serotype 14 capsular antigen diphtheria [id number] protein conjugate vaccine 0.0044 MG/ML / Streptococcus pneumonia Prevnar 13 (PF) (pneumoc 13-rancho conj-dip cr(PF)) 0.5 mL intramuscular syringe Prevnar 13 (PF) (pneumoc 13-rancho conj-dip cr(PF)) 0.5 mL intramuscular syringe 04/14/2020 08:50:46 AM EDT 0.5 ML [facility] 0.5 ML Streptococcus pneumoniae serotype 1 capsular antigen diphtheria [id number] protein conjugate vaccine 0.0044 MG/ML / Streptococcus pneumoniae serotype 14 capsular antigen diphtheria [id number] protein conjugate vaccine 0.0044 MG/ML / Streptococcus pneumonia Prevnar 13 (PF) (pneumoc 13-rancho conj-dip cr(PF)) 0.5 mL intramuscular syringe Prevnar 13 (PF) (pneumoc 13-rancho conj-dip cr(PF)) 0.5 mL intramuscular syringe 04/14/2020 08:50:46 AM EDT 0.5 ML completed 30 ACTUAT fluticasone furoate 0.1 MG/ACT UAT / vilanterol 0.025 MG/ACTUAT Dry Powder Inhaler [Breo] Breo Ellipta 04/10/2020 12:00:00 AM EDT [facility] 0.5 % 04/07/2020 12:00:00 AM EDT drops 5 INSTILL 1 DROP INTO RIGHT EYE FOUR TIMES A DAY DIRECTED PLEASE START 3 DYS PRIOR TO SURGERY INSTILL 1 DROP INTO RIGHT EYE FOUR TIMES A DAY DIRECTED PLEASE START 3 DYS PRIOR TO SURGERY SOLD: 04/07/2020 [facility] 0.3 % 04/07/2020 12:00:00 AM EDT drops 5 INSTILL 1 DROP INTO RIGHT EYE FOUR TIMES A DAY DIRECTED PLEASE START 3 DAYS PRIOR TO SURGERY INSTILL 1 DROP INTO RIGHT EYE FOUR TIMES A DAY DIRECTED PLEASE START 3 DAYS PRIOR TO SURGERY SOLD: 04/07/2020 [facility] 1 % 04/07/2020 12:00:00 AM EDT drops,suspension 5 INSTILL 1 DROP INTO RIGHT EYE 4 TIMES DAILY DIRECTED PLEASE START THE DAY OF SURGERY AFTER YOU GET HOME INSTILL 1 DROP INTO RIGHT EYE 4 TIMES DA SHAZIA DIRECTED PLEASE START THE DAY OF SURGERY AFTER YOU GET HOME SOLD: 04/07/2020 [facility] atorvastatin 40 MG Oral Tablet Atorvastatin Atorvastatin 04/02/2020 05:40:54 PM EDT 40 MG active [facility] atorvastatin 40 MG Oral Tablet Atorvastatin Atorvastatin 04/02/2020 05:40:54 PM EDT 40 MG active [facility] atorvastatin 40 MG Oral Tablet Atorvastatin Atorvastatin 04/02/2020 05:40:54 PM EDT 40 MG active [facility] atorvastatin 40 MG Oral Tablet Atorvastatin Atorvastatin 04/02/2020 05:40:54 PM EDT 40 MG active [facility] atorvastatin 40 MG Oral Tablet Atorvastatin Atorvastatin 04/02/2020 05:40:54 PM EDT 40 MG active [facility] Aspirin 81 MG Delayed Release Oral Tablet Aspirin 04/02/2020 0 5:40:20 PM EDT 81 MG active [facility] Aspirin 81 MG Delayed Release Oral Tablet Aspirin 04/02/2020 0 5:40:20 PM EDT 81 MG completed [facility] Aspirin 81 MG Delayed Release Oral Tablet Aspirin 04/02/2020 0 5:40:20 PM EDT 81 MG completed [facility] Aspirin 81 MG Delayed Release Oral Tablet Aspirin 04/02/2020 0 5:40:20 PM EDT 81 MG completed [facility] Aspirin 81 MG Delayed Release Oral Tablet Aspirin 04/02/2020 0 5:40:20 PM EDT 81 MG completed [facility] montelukast 10 MG Oral Tablet Montelukast Montelukast 04/02/2020 05:40:04 PM EDT 10 MG active [facility] montelukast 10 MG Oral Tablet Montelukast Montelukast 04/02/2020 05:40:04 PM EDT 10 MG completed [facility] montelukast 10 MG Oral Tablet Montelukast Montelukast 04/02/2020 05:40:04 PM EDT 10 MG completed [facility] montelukast 10 MG Oral Tablet Montelukast Montelukast 04/02/2020 05:40:04 PM EDT 10 MG completed [facility] montelukast 10 MG Oral Tablet Montelukast Montelukast 04/02/2020 05:40:04 PM EDT 10 MG completed [facility] 100 mg 03/27/2020 12:00:00 AM EDT tablet 60 TAKE ONE TABLET BY MOUTH TWICE A DAY TAKE ONE TABLET BY MOUTH TWICE A DAY SOLD: 07/21/2020 [facility] 100 mg 03/27/2020 12:00:00 AM EDT tablet 60 TAKE ONE TABLET BY MOUTH TWICE A DAY TAKE ONE TABLET BY MOUTH TWICE A DAY SOLD: 05/25/2020 [facility] 100 mg 03/27/2020 12:00:00 AM EDT tablet 60 TAKE ONE TABLET BY MOUTH TWICE A DAY TAKE ONE TABLET BY MOUTH TWICE A DAY SOLD: 06/21/2020 [facility] 100 mg 03/27/2020 12:00:00 AM EDT tablet 60 TAKE ONE TABLET BY MOUTH TWICE A DAY TAKE ONE TABLET BY MOUTH TWICE A DAY SOLD: 03/29/2020 [facility] 100 mg 03/27/2020 12:00:00 AM EDT tablet 60 TAKE ONE TABLET BY MOUTH TWICE A DAY TAKE ONE TABLET BY MOUTH TWICE A DAY SOLD: 04/26/2020 [facility] 1 mg 03/26/2020 12:00:00 AM EDT tablet 30 TAKE ONE TABLET BY MOUTH EVERY DAY TAKE ONE TABLET BY MOUTH EVERY DAY SOLD: 06/21/2020 [facility] 1 mg 03/26/2020 12:00:00 AM EDT tablet 30 TAKE ONE TABLET BY MOUTH EVERY DAY TAKE ONE TABLET BY MOUTH EVERY DAY SOLD: 04/26/2020 [facility] 2.5 mg 03/26/2020 12:00:00 AM EDT tablet 12 TAKE 3 TABLETS BY MOUTH ONCE WEEKLY (EVERY TUESDAY) MAXIMUM DAILY DOSE = 3 TAKE 3 TABLETS BY MOUTH ONCE WEEKLY (EVERY TUESDAY) MAXIMUM DAILY DOSE = 3 SOLD: 04/26/2020 [facility] 1 mg 03/26/2020 12:00:00 AM EDT tablet 30 TAKE ONE TABLET BY MOUTH EVERY DAY TAKE ONE TABLET BY MOUTH EVERY DAY SOLD: 03/29/2020 [facility] 1 mg 03/26/2020 12:00:00 AM EDT tablet 30 TAKE ONE TABLET BY MOUTH EVERY DAY TAKE ONE TABLET BY MOUTH EVERY DAY SOLD: 05/25/2020 [facility] 2.5 mg 03/26/2020 12:00:00 AM EDT tablet 12 TAKE 3 TABLETS BY MOUTH ONCE WEEKLY (EVERY TUESDAY) MAXIMUM DAILY DOSE = 3 TAKE 3 TABLETS BY MOUTH ONCE WEEKLY (EVERY TUESDAY) MAXIMUM DAILY DOSE = 3 SOLD: 03/29/2020 [facility] 2.5 mg 03/26/2020 12:00:00 AM EDT tablet 12 TAKE 3 TABLETS BY MOUTH ONCE WEEKLY (EVERY TUESDAY) MAXIMUM DAILY DOSE = 3 TAKE 3 TABLETS BY MOUTH ONCE WEEKLY (EVERY TUESDAY) MAXIMUM DAILY DOSE = 3 SOLD: 05/25/2020 [facility] Afluria Qd 2019-(3yr up)(PF) (flu vac [id number] 36mos up(P F)) 03/21/2020 03:15:13 PM EDT 60 MCG completed [facility] Qd 2019-21(3yr up)(PF) (flu vac [id number] 36mos up(P F)) 03/21/2020 03:15:13 PM EDT 60 MCG completed Afluria Qd 2019-21(3yr up)(PF) (flu vac [id number] 36mos up(P F)) 03/21/2020 03:15:13 PM EDT 60 MCG completed [facility] Qd 2019-(3yr up)(PF) (flu vac [id number] 36mos up(P F)) 03/21/2020 03:15:13 PM EDT 60 MCG completed Afluria Qd 2019-(3yr up)(PF) (flu vac [id number] 36mos up(P F)) 03/21/2020 03:15:13 PM EDT 60 MCG completed [facility] Qd 2019-(3yr up)(PF) (flu vac [id number] 36mos up(P F)) 03/21/2020 03:15:13 PM EDT 60 MCG completed 2.5 mg 02/24/2020 12:00:00 AM EDT tablet 12 TAKE THREE TABLETS BY MOUTH ONCE A WEEK EVERY TUESDAY MAXIMUM DAILY DOSE = THREE TABLETS TAKE THREE TABLETS BY MOUTH ONCE A WEEK EVERY TUESDAY MAXIMUM DAILY DOSE = THREE TABLETS SOLD: 02/28/2020 [facility] 113-14 mcg/actuation 01/29/2020 12:00:00 AM EDT aerosol powdr breath activated 1 INHALE ONE PUFF BY MOUTH TWO DONA ES A DAY INHALE ONE PUFF BY MOUTH TWO TIMES A DAY SOLD: 02/08/2020 [facility] 113-14 mcg/actuation 01/29/2020 12:00:00 AM EDT aerosol powdr breath activated 1 INHALE ONE PUFF BY MOUTH TWO DONA ES A DAY INHALE ONE PUFF BY MOUTH TWO TIMES A DAY SOLD: 02/28/2020 [facility] atorvastatin 40 MG Oral Tablet Atorvastatin Atorvastatin 01/25/2020 11:07:06 AM EDT 40 MG completed [facility] atorvastatin 40 MG Oral Tablet Atorvastatin Atorvastatin 01/25/2020 11:07:06 AM EDT 40 MG completed [facility] atorvastatin 40 MG Oral Tablet Atorvastatin Atorvastatin 01/25/2020 11:07:06 AM EDT 40 MG completed [facility] atorvastatin 40 MG Oral Tablet Atorvastatin Atorvastatin 01/25/2020 11:07:06 AM EDT 40 MG completed [facility] atorvastatin 40 MG Oral Tablet Atorvastatin Atorvastatin 01/25/2020 11:07:06 AM EDT 40 MG active [facility] atorvastatin 40 MG Oral Tablet Atorvastatin Atorvastatin 01/25/2020 11:07:06 AM EDT 40 MG completed [facility] 40 mg 01/25/2020 12:00:00 AM EDT tablet 30 TAKE ONE TABLET BY MOUTH EVERY EVENING TAKE ONE TABLET BY MOUTH EVERY EVENING SOLD: 01/28/2020 [facility] atorvastatin 40 MG Oral Tablet ATORVASTATIN CALCIUM 01/25/2020 1 2:00:00 AM EDT tablet 30 TAKE ONE TABLET BY MOUTH EVERY E VENING TAKE ONE TABLET BY MOUTH EVERY EVENING SOLD: 03/29/2020 [facility] 40 mg 01/25/2020 12:00:00 AM EDT tablet 30 TAKE ONE TABLET BY MOUTH EVERY EVENING TAKE ONE TABLET BY MOUTH EVERY EVENING SOLD: 02/28/2020 [facility] 10 mg 01/16/2020 12:00:00 AM EDT capsule 90 TAKE ONE CAPSULE BY MOUTH THREE TIMES A DAY NEEDED FOR PAIN TAKE ONE CAPSULE BY MOUTH THREE TIMES A DAY NEEDED FOR PAIN SOLD: 01/20/2020 [facility] Famot[facility] 40 MG Oral Tablet Famotidine 01/03/2020 11:17:56 AM EDT 40 MG completed [facility] Famotidine 40 MG Oral Tablet Famotidine 01/03/2020 11:17:56 AM EDT 40 MG completed [facility] Famotidine 40 MG Oral Tablet Famotidine 01/03/2020 11:17:56 AM EDT 40 MG completed [facility] Famotidine 40 MG Oral Tablet Famotidine 01/03/2020 11:17:56 AM EDT 40 MG active [facility] Famotidine 40 MG Oral Tablet Famotidine 01/03/2020 11:17:56 AM EDT 40 MG completed [facility] Famotidine 40 MG Oral Tablet Famotidine 01/03/2020 11:17:56 AM EDT 40 MG active [facility] 1 mg 12/27/2019 12:00:00 AM EDT tablet 30 TAKE ONE TABLET BY MOUTH EVERY DAY TAKE ONE TABLET BY MOUTH EVERY DAY SOLD: 02/28/2020 [facility] 1 mg 12/27/2019 12:00:00 AM EDT tablet 30 TAKE ONE TABLET BY MOUTH EVERY DAY TAKE ONE TABLET BY MOUTH EVERY DAY SOLD: 12/30/2019 [facility] 1 mg 12/27/2019 12:00:00 AM EDT tablet 30 TAKE ONE TABLET BY MOUTH EVERY DAY TAKE ONE TABLET BY MOUTH EVERY DAY SOLD: 01/28/2020 [facility] Famotidine 40 MG Oral Tablet Famotidine 12/26/2019 01:55:47 PM EDT 40 MG completed [facility] Famotidine 40 MG Oral Tablet Famotidine 12/26/2019 01:55:47 PM EDT 40 MG completed [facility] Famotidine 40 MG Oral Tablet Famotidine 12/26/2019 01:55:47 PM EDT 40 MG completed [facility] Famotidine 40 MG Oral Tablet Famotidine 12/26/2019 01:55:47 PM EDT 40 MG completed [facility] Famotidine 40 MG Oral Tablet Famotidine 12/26/2019 01:55:47 PM EDT 40 MG completed [facility] Famotidine 40 MG Oral Tablet Famotidine 12/26/2019 01:55:47 PM EDT 40 MG completed [facility] 2.5-2.5 % 12/25/2019 12:00:00 AM EDT cream 30 APPLY TO ACCESS SITES DIRECTED ONE HOUR PRIOR TO PUNCTURE NEEDED, WIPE OFF EXCESS BEFORE PUNCTURE APPLY TO ACCESS SITES DIRECTED ONE HOUR PRIOR TO PUNCTURE NEEDED, WIPE OFF EXCESS BEFORE PUNCTURE SOLD: 12/30/2019 [facility] 100 unit/mL (3 mL) 12/25/2019 12:00:00 AM EDT insulin pen 30 INJECT 65 UNITS AT BEDTIME FOR DIABETES, DROP TO 60 UNITS IF NO BEDTIME SNACK INJECT 65 UNITS AT BEDTIME FOR DIABETES, DROP TO 60 UNITS IF NO BEDTIME SNACK SOLD: 12/30/2019 [facility] Lidocaine 25 MG/ML / Prilocaine 25 MG/ML Topical Cream Lidoc link-Prilocaine 12/25/2019 12:00:00 AM EDT active [facility]ENT ([facility] 2.5-2.5 % 12/25/2019 12:00:00 AM EDT cream 30 APPLY TO ACCESS SITES DIRECTED ONE HOUR PRIOR TO PUNCTURE NEEDED, WIPE OFF EXCESS BEFORE PUNCTURE APPLY TO ACCESS SITES DIRECTED ONE HOUR PRIOR TO PUNCTURE NEEDED, WIPE OFF EXCESS BEFORE PUNCTURE SOLD: 02/08/2020 [facility] Insulin Glargine Insulin Glargine (Basag lar Kwikpen U-100 Insulin) 100 unit/mL (3 mL) insulin pen Insulin Glargine (Basaglar Kwikpen U-100 Insulin) 100 unit/mL (3 mL) insulin pen 12/24/2019 02:53:03 PM EDT 65 UNIT a [facility] Insulin Glargine Insulin Glargine 12/24/2019 02:53:03 PM EDT 65 UNIT active [facility] Insulin Glargine Insulin Glargine (Basag lar Kwikpen U-100 Insulin) 100 unit/mL (3 mL) insulin pen Insulin Glargine (Basaglar Kwikpen U-100 Insulin) 100 unit/mL (3 mL) insulin pen 12/24/2019 02:53:03 PM EDT 65 UNIT a [facility] Insulin Glargine Insulin Glargine (Basag lar Kwikpen U-100 Insulin) 100 unit/mL (3 mL) insulin pen Insulin Glargine (Basaglar Kwikpen U-100 Insulin) 100 unit/mL (3 mL) insulin pen 12/24/2019 02:53:03 PM EDT 65 UNIT a [facility] Insulin Glargine Insulin Glargine (Basag lar Kwikpen U-100 Insulin) 100 unit/mL (3 mL) insulin pen Insulin Glargine (Basaglar Kwikpen U-100 Insulin) 100 unit/mL (3 mL) insulin pen 12/24/2019 02:53:03 PM EDT 65 UNIT a [facility] Insulin Glargine Insulin Glargine (Basag lar Kwikpen U-100 Insulin) 100 unit/mL (3 mL) insulin pen Insulin Glargine (Basaglar Kwikpen U-100 Insulin) 100 unit/mL (3 mL) insulin pen 12/24/2019 02:53:03 PM EDT 65 UNIT a [facility] Insulin Glargine Insulin Glargine (Basag lar Kwikpen U-100 Insulin) 100 unit/mL (3 mL) insulin pen Insulin Glargine (Basaglar Kwikpen U-100 Insulin) 100 unit/mL (3 mL) insulin pen 12/24/2019 02:53:03 PM EDT 65 UNIT a [facility] 0.5 ML Bordetella pertussis filamentous hemagglutinin vaccine, inactivated 0.016 MG/ML / Bordetella pertussis pertactin vaccine, inactivated 0.005 MG/ML / Bordetella pertussis toxoid vaccine, inactivated 0.016 MG/ML / diphtheria toxoid vaccine, inactivate diphth,pertus(acell),tetanus 2.5 Lf unit-8 mcg-5 Lf/0.5mL IM syringe diphth,pertus(acell),tetanus 2.5 Lf unit-8 mcg-5 Lf/0. 5mL IM syringe 12/24/2019 01:47:45 PM EDT 0.5 ML completed 0.5 ML Bordetella pertussis filamentous hemagglutinin vaccine, inactivated 0.016 MG/ML / Bordetella pertussis pertactin vaccine, inactivated 0.005 MG/ML / Bordetella pertussis toxoid vaccine, inactivated 0.016 MG/ML / diphtheria toxoid vaccine, inactivate diphth,pertus(acell),tetanus 2.5 Lf unit-8 mcg-5 Lf/0.5mL IM syringe diphth,pertus(acell),tetanus 2.5 Lf unit-8 mcg-5 Lf/0. 5mL IM syringe 12/24/2019 01:47:45 PM EDT 0.5 ML [facility] 0.5 ML Bordetella pertussis filamentous hemagglutinin vaccine, inactivated 0.016 MG/ML / Bordetella pertussis pertactin vaccine, inactivated 0.005 MG/ML / Bordetella pertussis toxoid vaccine, inactivated 0.016 MG/ML / diphtheria toxoid vaccine, inactivate diphth,pertus(acell),tetanus 2.5 Lf unit-8 mcg-5 Lf/0.5mL IM syringe diphth,pertus(acell),tetanus 2.5 Lf unit-8 mcg-5 Lf/0. 5mL IM syringe 12/24/2019 01:47:45 PM EDT 0.5 ML [facility] 0.5 ML Bordetella pertussis filamentous hemagglutinin vaccine, inactivated 0.016 MG/ML / Bordetella pertussis pertactin vaccine, inactivated 0.005 MG/ML / Bordetella pertussis toxoid vaccine, inactivated 0.016 MG/ML / diphtheria toxoid vaccine, inactivate diphth,pertus(acell),tetanus 2.5 Lf unit-8 mcg-5 Lf/0.5mL IM syringe diphth,pertus(acell),tetanus 2.5 Lf unit-8 mcg-5 Lf/0. 5mL IM syringe 12/24/2019 01:47:45 PM EDT 0.5 ML [facility] 0.5 ML Bordetella pertussis filamentous hemagglutinin vaccine, inactivated 0.016 MG/ML / Bordetella pertussis pertactin vaccine, inactivated 0.005 MG/ML / Bordetella pertussis toxoid vaccine, inactivated 0.016 MG/ML / diphtheria toxoid vaccine, inactivate diphth,pertus(acell),tetanus 2.5 Lf unit-8 mcg-5 Lf/0.5mL IM syringe diphth,pertus(acell),tetanus 2.5 Lf unit-8 mcg-5 Lf/0. 5mL IM syringe 12/24/2019 01:47:45 PM EDT 0.5 ML [facility] 0.5 ML Bordetella pertussis filamentous hemagglutinin vaccine, inactivated 0.016 MG/ML / Bordetella pertussis pertactin vaccine, inactivated 0.005 MG/ML / Bordetella pertussis toxoid vaccine, inactivated 0.016 MG/ML / diphtheria toxoid vaccine, inactivate diphth,pertus(acell),tetanus 2.5 Lf unit-8 mcg-5 Lf/0.5mL IM syringe diphth,pertus(acell),tetanus 2.5 Lf unit-8 mcg-5 Lf/0. 5mL IM syringe 12/24/2019 01:47:45 PM EDT 0.5 ML [facility] 0.5 ML Bordetella pertussis filamentous hemagglutinin vaccine, inactivated 0.016 MG/ML / Bordetella pertussis pertactin vaccine, inactivated 0.005 MG/ML / Bordetella pertussis toxoid vaccine, inactivated 0.016 MG/ML / diphtheria toxoid vaccine, inactivate diphth,pertus(acell),tetanus 2.5 Lf unit-8 mcg-5 Lf/0.5mL IM syringe diphth,pertus(acell),tetanus 2.5 Lf unit-8 mcg-5 Lf/0. 5mL IM syringe 12/24/2019 01:47:45 PM EDT 0.5 ML completed gabapentin 300 MG Oral Capsule Gabapentin Gabapentin 2019 09:09:04 AM EDT 300 MG completed gabapentin 300 MG Oral Capsule Gabapentin Gabapentin 2019 09:09:04 AM EDT 300 MG completed gabapentin 300 MG Oral Capsule Gabapentin Gabapentin 2019 09:09:04 AM EDT 300 MG completed gabapentin 300 MG Oral Capsule Gabapentin Gabapentin 2019 09:09:04 AM EDT 300 MG completed gabapentin 300 MG Oral Capsule Gabapentin Gabapentin 2019 09:09:04 AM EDT 300 MG active [facility] gabapentin 300 MG Oral Capsule Gabapentin Gabapentin 2019 09:09:04 AM EDT 300 MG active [facility] gabapentin 300 MG Oral Capsule Gabapentin Gabapentin 2019 09:09:04 AM EDT 300 MG active [facility] 300 mg 11/28/2019 12:00:00 AM EDT capsule 90 TAKE ONE CAPSULE BY MOUTH THREE TIMES A DAY TAKE ONE CAPSULE BY MOUTH THREE TIMES A DAY SOLD: 04/26/2020 [facility] 300 mg 11/28/2019 12:00:00 AM EDT capsule 90 TAKE ONE CAPSULE BY MOUTH THREE TIMES A DAY TAKE ONE CAPSULE BY MOUTH THREE TIMES A DAY SOLD: 02/28/2020 [facility] 300 mg 11/28/2019 12:00:00 AM EDT capsule 90 TAKE ONE CAPSULE BY MOUTH THREE TIMES A DAY TAKE ONE CAPSULE BY MOUTH THREE TIMES A DAY SOLD: 01/28/2020 [facility] 300 mg 11/28/2019 12:00:00 AM EDT capsule 90 TAKE ONE CAPSULE BY MOUTH THREE TIMES A DAY TAKE ONE CAPSULE BY MOUTH THREE TIMES A DAY SOLD: 03/29/2020 [facility] 300 mg 11/28/2019 12:00:00 AM EDT capsule 90 TAKE ONE CAPSULE BY MOUTH THREE TIMES A DAY TAKE ONE CAPSULE BY MOUTH THREE TIMES A DAY SOLD: 12/01/2019 [facility] 300 mg 11/28/2019 12:00:00 AM EDT capsule 90 TAKE ONE CAPSULE BY MOUTH THREE TIMES A DAY TAKE ONE CAPSULE BY MOUTH THREE TIMES A DAY SOLD: 12/30/2019 [facility] 2.5 mg 11/27/2019 12:00:00 AM EDT tablet 12 TAKE 3 TABLETS BY MOUTH ONCE A WEEK (EVERY TUESDAY) TAKE 3 TABLETS BY MOUTH ONCE A WEEK (EVERY TUESDAY) S OLD: 12/30/2019 [facility] 2.5 mg 11/27/2019 12:00:00 AM EDT tablet 12 TAKE 3 TABLETS BY MOUTH ONCE A WEEK (EVERY TUESDAY) TAKE 3 TABLETS BY MOUTH ONCE A WEEK (EVERY TUESDAY) S OLD: 01/28/2020 [facility] 2.5 mg 11/27/2019 12:00:00 AM EDT tablet 12 TAKE 3 TABLETS BY MOUTH ONCE A WEEK (EVERY TUESDAY) TAKE 3 TABLETS BY MOUTH ONCE A WEEK (EVERY TUESDAY) S OLD: 12/01/2019 [facility] Insulin Glargine Insulin Glargine (Basag lar Kwikpen U-100 Insulin) 100 unit/mL (3 mL) insulin pen Insulin Glargine (Basaglar Kwikpen U-100 Insulin) 100 unit/mL (3 mL) insulin pen 11/23/2019 08:36:50 AM EDT 65 UNIT c ompleted Insulin Glargine Insulin Glargine 11/23/2019 08:36:50 AM EDT 65 UNIT completed [facility] Insulin Glargine Insulin Glargine (Basag lar Kwikpen U-100 Insulin) 100 unit/mL (3 mL) insulin pen Insulin Glargine (Basaglar Kwikpen U-100 Insulin) 100 unit/mL (3 mL) insulin pen 11/23/2019 08:36:50 AM EDT 65 UNIT c ompleted Insulin Glargine Insulin Glargine (Basag lar Kwikpen U-100 Insulin) 100 unit/mL (3 mL) insulin pen Insulin Glargine (Basaglar Kwikpen U-100 Insulin) 100 unit/mL (3 mL) insulin pen 11/23/2019 08:36:50 AM EDT 65 UNIT c ompleted Insulin Glargine Insulin Glargine (Basag lar Kwikpen U-100 Insulin) 100 unit/mL (3 mL) insulin pen Insulin Glargine (Basaglar Kwikpen U-100 Insulin) 100 unit/mL (3 mL) insulin pen 11/23/2019 08:36:50 AM EDT 65 UNIT c [facility] Insulin Glargine Insulin Glargine (Basag lar Kwikpen U-100 Insulin) 100 unit/mL (3 mL) insulin pen Insulin Glargine (Basaglar Kwikpen U-100 Insulin) 100 unit/mL (3 mL) insulin pen 11/23/2019 08:36:50 AM EDT 65 UNIT c [facility] Insulin Glargine Insulin Glargine (Basag lar Kwikpen U-100 Insulin) 100 unit/mL (3 mL) insulin pen Insulin Glargine (Basaglar Kwikpen U-100 Insulin) 100 unit/mL (3 mL) insulin pen 11/23/2019 08:36:50 AM EDT 65 UNIT c [facility] 100 unit/mL (3 mL) 11/23/2019 12:00:00 AM EDT insulin pen 30 INJECT 65 UNITS UNDER THE SKIN AT BEDTIME FOR DIABETES INJECT 65 UNITS UNDER THE SKIN AT BEDTIME FOR DIABETES SOLD: 05/29/2020 [facility] 100 unit/mL (3 mL) 11/23/2019 12:00:00 AM EDT insulin pen 30 INJECT 65 UNITS UNDER THE SKIN AT BEDTIME FOR DIABETES INJECT 65 UNITS UNDER THE SKIN AT BEDTIME FOR DIABETES SOLD: 04/06/2020 [facility] 100 unit/mL (3 mL) 11/23/2019 12:00:00 AM EDT insulin pen 30 INJECT 65 UNITS UNDER THE SKIN AT BEDTIME FOR DIABETES INJECT 65 UNITS UNDER THE SKIN AT BEDTIME FOR DIABETES SOLD: 02/08/2020 [facility] 100 unit/mL (3 mL) 11/23/2019 12:00:00 AM EDT insulin pen 30 INJECT 65 UNITS UNDER THE SKIN AT BEDTIME FOR DIABETES INJECT 65 UNITS UNDER THE SKIN AT BEDTIME FOR DIABETES SOLD: 12/01/2019 [facility] Loratadine 10 MG Oral Tablet Loratadine 10 MG 11/20/2019 12:00:00 AM E DT active 1 tablet eCW1 ([facility]) montelukast 10 MG Oral Tablet Montelukast Sodium 10 MG Eric lukast Sodium 10 MG 11/20/2019 12:00:00 AM EDT active 1 tablet eCW1 ([facility]) 500 mg 11/08/2019 12:00:00 AM EDT tablet 10 TAKE ONE TABLET BY MOUTH EVERY DAY TAKE ONE TABLET BY MOUTH EVERY DAY SOLD: 11/08/2019 [facility] Prednisone 20 MG Oral Tablet PredniSONE 20 MG PredniSONE 20 MG 11/08/2019 12:00:00 AM EDT active 2 tablets for 1 week, 1.5 tab for 1 week , 1 tab for 1 week, 1/2 tab for 1 week eCW1 ([facility]) 20 mg 11/08/2019 12:00:00 AM EDT tablet 35 TAKE TWO TABLETS BY MOUTH EVERY DAY FOR 1 WEEK, ONE AND ONE-HALF TABLETS ONCE DAILY FOR 1 WEEK, 1 TABLET ONCE DAILY FOR 1 WEEK, ONE-HALF TABLET FOR 1 WEEK TAKE TWO TABLETS BY MOUTH EVERY DAY FOR 1 WEEK, ONE AND ONE-HALF TABLETS ONCE DAILY FOR 1 WEEK, 1 TABLET ONCE DAILY FOR 1 WEEK, ONE-HALF TABLET FOR 1 WEEK SOLD: 11/08/2019 [facility] Levofloxacin 500 MG Oral Tablet Levofloxacin 500 MG 11/08/2019 1 2:00:00 AM EDT active 1 tablet eCW1 ([facility]) Aspirin 81 MG Delayed Release Oral Tablet Aspirin 11/04/2019 0 1:35:44 PM EDT 81 MG completed [facility] Aspirin 81 MG Delayed Release Oral Tablet Aspirin 11/04/2019 0 1:35:44 PM EDT 81 MG active [facility] Aspirin 81 MG Delayed Release Oral Tablet Aspirin 11/04/2019 0 1:35:44 PM EDT 81 MG active [facility] Aspirin 81 MG Delayed Release Oral Tablet Aspirin 11/04/2019 0 1:35:44 PM EDT 81 MG completed [facility] Aspirin 81 MG Delayed Release Oral Tablet Aspirin 11/04/2019 0 1:35:44 PM EDT 81 MG completed [facility] Aspirin 81 MG Delayed Release Oral Tablet Aspirin 11/04/2019 0 1:35:44 PM EDT 81 MG completed [facility] Aspirin 81 MG Delayed Release Oral Tablet Aspirin 11/04/2019 0 1:35:44 PM EDT 81 MG completed [facility] 81 mg 11/04/2019 12:00:00 AM EDT tablet,delayed release (DR/EC) 30 TAKE ONE TABLET BY MOUTH ONCE DAILY TAKE ONE TABLET BY MOUTH ONCE DAILY SOLD: 11/08/2019 [facility] 81 mg 11/04/2019 12:00:00 AM EDT tablet,delayed release (DR/EC) 30 TAKE ONE TABLET BY MOUTH ONCE DAILY TAKE ONE TABLET BY MOUTH ONCE DAILY SOLD: 12/30/2019 [facility] 81 mg 11/04/2019 12:00:00 AM EDT tablet,delayed release (DR/EC) 30 TAKE ONE TABLET BY MOUTH ONCE DAILY TAKE ONE TABLET BY MOUTH ONCE DAILY SOLD: 03/29/2020 [facility] 81 mg 11/04/2019 12:00:00 AM EDT tablet,delayed release (DR/EC) 30 TAKE ONE TABLET BY MOUTH ONCE DAILY TAKE ONE TABLET BY MOUTH ONCE DAILY SOLD: 01/28/2020 [facility] 81 mg 11/04/2019 12:00:00 AM EDT tablet,delayed release (DR/EC) 30 TAKE ONE TABLET BY MOUTH ONCE DAILY TAKE ONE TABLET BY MOUTH ONCE DAILY SOLD: 12/01/2019 [facility] 81 mg 11/04/2019 12:00:00 AM EDT tablet,delayed release (DR/EC) 30 TAKE ONE TABLET BY MOUTH ONCE DAILY TAKE ONE TABLET BY MOUTH ONCE DAILY SOLD: 02/28/2020 [facility] 20 mg 10/31/2019 12:00:00 AM EDT tablet 30 TAKE ONE TABLET BY MOUTH AT BEDTIME TAKE ONE TABLET BY MOUTH AT BEDTIME SOLD: 03/29/2020 [facility] 20 mg 10/31/2019 12:00:00 AM EDT tablet 30 TAKE ONE TABLET BY MOUTH AT BEDTIME TAKE ONE TABLET BY MOUTH AT BEDTIME SOLD: 04/26/2020 [facility] 20 mg 10/31/2019 12:00:00 AM EDT tablet 30 TAKE ONE TABLET BY MOUTH AT BEDTIME TAKE ONE TABLET BY MOUTH AT BEDTIME SOLD: 11/01/2019 [facility] 20 mg 10/31/2019 12:00:00 AM EDT tablet 30 TAKE ONE TABLET BY MOUTH AT BEDTIME TAKE ONE TABLET BY MOUTH AT BEDTIME SOLD: 01/28/2020 [facility] Famotidine 20 MG Oral Tablet FAMOTIDINE 10/31/2019 12:00:00 AM EDT tab let 30 TAKE ONE TABLET BY MOUTH AT BEDTIME TAKE ONE TABLET BY MOUTH AT BEDTIME SOLD: 12/01/2019 [facility] 20 mg 10/31/2019 12:00:00 AM EDT tablet 30 TAKE ONE TABLET BY MOUTH AT BEDTIME TAKE ONE TABLET BY MOUTH AT BEDTIME SOLD: 02/28/2020 [facility] montelukast 10 MG Oral Tablet MONTELUKAST SODIUM 10/30/2019 12:0 0:00 AM EDT tablet 30 TAKE ONE TABLET BY MOUTH AT BEDT CINTHIA FOR ALLERGIC RHINITIS TAKE ONE TABLET BY MOUTH AT BEDTIME FOR ALLERGIC RHINITIS SOLD: 02/28/2020 [facility] Ethambutol Hydrochloride 400 MG Oral Tablet ETHAMBUTOL HCL 10/30/2019 12:00:00 AM EDT tablet 120 TAKE FOUR TABLETS BY MOUTH E VERY DAY TAKE FOUR TABLETS BY MOUTH EVERY DAY SOLD: 03/29/2020 [facility] 40 mg 10/30/2019 12:00:00 AM EDT capsule,delayed release (DR/EC) 60 TAKE ONE CAPSULE BY MOUTH TWICE A DAY TAKE ONE CAPSULE BY MOUTH TWICE A DAY SOLD: 12/01/2019 [facility] 400 mg 10/30/2019 12:00:00 AM EDT tablet 73 TAKE FOUR TABLETS BY MOUTH EVERY DAY TAKE FOUR TABLETS BY MOUTH EVERY DAY SOLD: 12/08/2019 [facility] 250 mg 10/30/2019 12:00:00 AM EDT tablet 30 TAKE ONE TABLET BY MOUTH EVERY DAY TAKE ONE TABLET BY MOUTH EVERY DAY SOLD: 11/01/2019 [facility] montelukast 10 MG Oral Tablet MONTELUKAST SODIUM 10/30/2019 12:0 0:00 AM EDT tablet 30 TAKE ONE TABLET BY MOUTH AT BEDT CINTHIA FOR ALLERGIC RHINITIS TAKE ONE TABLET BY MOUTH AT BEDTIME FOR ALLERGIC RHINITIS SOLD: 12/01/2019 [facility] Esomeprazole 40 MG Delayed Release Oral Capsule ESOMEPRAZOLE MAGNESIUM 10/30/2019 12:00:00 AM EDT capsule,delayed release(DR/EC) 60 TAKE ONE CAPSULE BY MOUTH TWICE A DAY TAKE ONE CAPSULE BY MOUTH TWICE A DAY SOLD: 02/28/2020 [facility] 10 mg 10/30/2019 12:00:00 AM EDT tablet 30 TAKE ONE TABLET BY MOUTH EVERY DAY FOR ALLERGIC RHINITIS TAKE ONE TABLET BY MOUTH EVERY DAY FOR A LLERGIC RHINITIS SOLD: 12/30/2019 [facility] 100 unit/mL (3 mL) 10/30/2019 12:00:00 AM EDT insulin pen 15 INJECT 65UNITS (0.65ML) UNDER THE SKIN AT BEDTIME FOR DIABETES INJECT 65UNITS (0.65ML) UNDER THE SKIN AT BEDTIME FOR DIABETES SOLD: 11/01/2019 [facility] 250 mg 10/30/2019 12:00:00 AM EDT tablet 30 TAKE ONE TABLET BY MOUTH EVERY DAY TAKE ONE TABLET BY MOUTH EVERY DAY SOLD: 12/30/2019 [facility] 250 mg 10/30/2019 12:00:00 AM EDT tablet 30 TAKE ONE TABLET BY MOUTH EVERY DAY TAKE ONE TABLET BY MOUTH EVERY DAY SOLD: 02/28/2020 [facility] 100 unit/mL 10/30/2019 12:00:00 AM EDT insulin pen 15 INJECT 1 UNITS (0.01ML) UNDER THE SKIN BEFORE MEALS AND AT BEDTIME 1-25 UNITS PER SLIDING SCALE INJECT 1 UNITS (0.01ML) UNDER THE SKIN B EFORE MEALS AND AT BEDTIME 1-25 UNITS PER SLIDING SCALE SOLD: 04/06/2020 [facility] Ethambutol Hydrochloride 400 MG Oral Tablet ETHAMBUTOL HCL 10/30/2019 12:00:00 AM EDT tablet 120 TAKE FOUR TABLETS BY MOUTH E VERY DAY TAKE FOUR TABLETS BY MOUTH EVERY DAY SOLD: 12/30/2019 [facility] 250 mg 10/30/2019 12:00:00 AM EDT tablet 30 TAKE ONE TABLET BY MOUTH EVERY DAY TAKE ONE TABLET BY MOUTH EVERY DAY SOLD: 03/29/2020 [facility] 250 mg 10/30/2019 12:00:00 AM EDT tablet 30 TAKE ONE TABLET BY MOUTH EVERY DAY TAKE ONE TABLET BY MOUTH EVERY DAY SOLD: 12/01/2019 [facility] Ethambutol Hydrochloride 400 MG Oral Tablet ETHAMBUTOL HCL 10/30/2019 12:00:00 AM EDT tablet 120 TAKE FOUR TABLETS BY MOUTH E VERY DAY TAKE FOUR TABLETS BY MOUTH EVERY DAY SOLD: 02/28/2020 [facility] montelukast 10 MG Oral Tablet MONTELUKAST SODIUM 10/30/2019 12:0 0:00 AM EDT tablet 30 TAKE ONE TABLET BY MOUTH AT BEDT CINTHIA FOR ALLERGIC RHINITIS TAKE ONE TABLET BY MOUTH AT BEDTIME FOR ALLERGIC RHINITIS SOLD: 03/29/2020 [facility] montelukast 10 MG Oral Tablet MONTELUKAST SODIUM 10/30/2019 12:0 0:00 AM EDT tablet 30 TAKE ONE TABLET BY MOUTH AT BEDT CINTHIA FOR ALLERGIC RHINITIS TAKE ONE TABLET BY MOUTH AT BEDTIME FOR ALLERGIC RHINITIS SOLD: 01/28/2020 [facility] 400 mg 10/30/2019 12:00:00 AM EDT tablet 120 TAKE FOUR TABLETS BY MOUTH EVERY DAY TAKE FOUR TABLETS BY MOUTH EVERY DAY SOLD: 11/01/2019 [facility] 10 mg 10/30/2019 12:00:00 AM EDT tablet 30 TAKE ONE TABLET BY MOUTH EVERY DAY FOR ALLERGIC RHINITIS TAKE ONE TABLET BY MOUTH EVERY DAY FOR A LLERGIC RHINITIS SOLD: 02/28/2020 [facility] 10 mg 10/30/2019 12:00:00 AM EDT tablet 30 TAKE ONE TABLET BY MOUTH EVERY DAY FOR ALLERGIC RHINITIS TAKE ONE TABLET BY MOUTH EVERY DAY FOR A LLERGIC RHINITIS SOLD: 11/01/2019 [facility] 40 mg 10/30/2019 12:00:00 AM EDT capsule,delayed release (DR/EC) 60 TAKE ONE CAPSULE BY MOUTH TWICE A DAY TAKE ONE CAPSULE BY MOUTH TWICE A DAY SOLD: 12/30/2019 [facility] 40 mg 10/30/2019 12:00:00 AM EDT capsule,delayed release (DR/EC) 60 TAKE ONE CAPSULE BY MOUTH TWICE A DAY TAKE ONE CAPSULE BY MOUTH TWICE A DAY SOLD: 11/01/2019 [facility] Esomeprazole 40 MG Delayed Release Oral Capsule ESOMEPRAZOLE MAGNESIUM 10/30/2019 12:00:00 AM EDT capsule,delayed release(DR/EC) 60 TAKE ONE CAPSULE BY MOUTH TWICE A DAY TAKE ONE CAPSULE BY MOUTH TWICE A DAY SOLD: 01/28/2020 [facility] 100 unit/mL 10/30/2019 12:00:00 AM EDT insulin pen 15 INJECT 1 UNITS (0.01ML) UNDER THE SKIN BEFORE MEALS AND AT BEDTIME 1-25 UNITS PER SLIDING SCALE INJECT 1 UNITS (0.01ML) UNDER THE SKIN B EFORE MEALS AND AT BEDTIME 1-25 UNITS PER SLIDING SCALE SOLD: 11/01/2019 [facility] montelukast 10 MG Oral Tablet MONTELUKAST SODIUM 10/30/2019 12:0 0:00 AM EDT tablet 30 TAKE ONE TABLET BY MOUTH AT BEDT CINTHIA FOR ALLERGIC RHINITIS TAKE ONE TABLET BY MOUTH AT BEDTIME FOR ALLERGIC RHINITIS SOLD: 11/01/2019 [facility] Esomeprazole 40 MG Delayed Release Oral Capsule ESOMEPRAZOLE MAGNESIUM 10/30/2019 12:00:00 AM EDT capsule,delayed release(DR/EC) 60 TAKE ONE CAPSULE BY MOUTH TWICE A DAY TAKE ONE CAPSULE BY MOUTH TWICE A DAY SOLD: 03/29/2020 [facility] 10 mg 10/30/2019 12:00:00 AM EDT tablet 30 TAKE ONE TABLET BY MOUTH EVERY DAY FOR ALLERGIC RHINITIS TAKE ONE TABLET BY MOUTH EVERY DAY FOR A LLERGIC RHINITIS SOLD: 01/28/2020 [facility] 10 mg 10/30/2019 12:00:00 AM EDT tablet 30 TAKE ONE TABLET BY MOUTH EVERY DAY FOR ALLERGIC RHINITIS TAKE ONE TABLET BY MOUTH EVERY DAY FOR A LLERGIC RHINITIS SOLD: 12/01/2019 [facility] 250 mg 10/30/2019 12:00:00 AM EDT tablet 30 TAKE ONE TABLET BY MOUTH EVERY DAY TAKE ONE TABLET BY MOUTH EVERY DAY SOLD: 01/28/2020 [facility] Ethambutol Hydrochloride 400 MG Oral Tablet ETHAMBUTOL HCL 10/30/2019 12:00:00 AM EDT tablet 120 TAKE FOUR TABLETS BY MOUTH E VERY DAY TAKE FOUR TABLETS BY MOUTH EVERY DAY SOLD: 01/28/2020 [facility] montelukast 10 MG Oral Tablet MONTELUKAST SODIUM 10/30/2019 12:0 0:00 AM EDT tablet 30 TAKE ONE TABLET BY MOUTH AT BEDT CINTHIA FOR ALLERGIC RHINITIS TAKE ONE TABLET BY MOUTH AT BEDTIME FOR ALLERGIC RHINITIS SOLD: 12/30/2019 [facility] 10 mg 10/30/2019 12:00:00 AM EDT tablet 30 TAKE ONE TABLET BY MOUTH EVERY DAY FOR ALLERGIC RHINITIS TAKE ONE TABLET BY MOUTH EVERY DAY FOR A LLERGIC RHINITIS SOLD: 03/29/2020 [facility] montelukast 10 MG Oral Tablet Montelukast Montelukast 10/29/2019 03:08:41 PM EDT 10 MG completed [facility] montelukast 10 MG Oral Tablet Montelukast Montelukast 10/29/2019 03:08:41 PM EDT 10 MG completed [facility] montelukast 10 MG Oral Tablet Montelukast Montelukast 10/29/2019 03:08:41 PM EDT 10 MG completed [facility] montelukast 10 MG Oral Tablet Montelukast Montelukast 10/29/2019 03:08:41 PM EDT 10 MG active [facility] montelukast 10 MG Oral Tablet Montelukast Montelukast 10/29/2019 03:08:41 PM EDT 10 MG completed [facility] montelukast 10 MG Oral Tablet Montelukast Montelukast 10/29/2019 03:08:41 PM EDT 10 MG active [facility] montelukast 10 MG Oral Tablet Montelukast Montelukast 10/29/2019 03:08:41 PM EDT 10 MG active [facility] montelukast 10 MG Oral Tablet Montelukast Montelukast 10/29/2019 03:08:41 PM EDT 10 MG completed [facility] Loratadine 10 MG Oral Tablet Loratadine 10/29/2019 03:07:56 PM EDT 10 MG completed [facility] Loratadine 10 MG Oral Tablet Loratadine 10/29/2019 03:07:56 PM EDT 10 MG active [facility] Loratadine 10 MG Oral Tablet Loratadine 10/29/2019 03:07:56 PM EDT 10 MG completed [facility] Loratadine 10 MG Oral Tablet Loratadine 10/29/2019 03:07:56 PM EDT 10 MG active [facility] Loratadine 10 MG Oral Tablet Loratadine 10/29/2019 03:07:56 PM EDT 10 MG completed [facility] Loratadine 10 MG Oral Tablet Loratadine 10/29/2019 03:07:56 PM EDT 10 MG completed [facility] Loratadine 10 MG Oral Tablet Loratadine 10/29/2019 03:07:56 PM EDT 10 MG active [facility] Loratadine 10 MG Oral Tablet Loratadine 10/29/2019 03:07:56 PM EDT 10 MG active [facility] Famotidine 20 MG Oral Tablet Famotidine (Pepcid) 20 mg tablet Famotidine (Pepcid) 20 mg tablet 10/29/2019 03:00:34 PM EDT 20 MG c ompleted Famotidine 20 MG Oral Tablet Famotidine 10/29/2019 03:00:34 PM EDT 20 MG active [facility] Famotidine 20 MG Oral Tablet Famotidine (Pepcid) 20 mg tablet Famotidine (Pepcid) 20 mg tablet 10/29/2019 03:00:34 PM EDT 20 MG c [facility] Famotidine 20 MG Oral Tablet Famotidine (Pepcid) 20 mg tablet Famotidine (Pepcid) 20 mg tablet 10/29/2019 03:00:34 PM EDT 20 MG c [facility] Famotidine 20 MG Oral Tablet Famotidine (Pepcid) 20 mg tablet Famotidine (Pepcid) 20 mg tablet 10/29/2019 03:00:34 PM EDT 20 MG c [facility] Famotidine 20 MG Oral Tablet Famotidine (Pepcid) 20 mg tablet Famotidine (Pepcid) 20 mg tablet 10/29/2019 03:00:34 PM EDT 20 MG c [facility] Famotidine 20 MG Oral Tablet Famotidine (Pepcid) 20 mg tablet Famotidine (Pepcid) 20 mg tablet 10/29/2019 03:00:34 PM EDT 20 MG c [facility] Famotidine 20 MG Oral Tablet Famotidine 10/29/2019 03:00:34 PM EDT 20 MG active [facility] Insulin Lispro 10/29/2019 02:58:32 PM EDT 1 UNIT a [facility] Insulin Lispro (Humalog Kwikpen Insulin) 100 unit/mL insulin pen 10/29/2019 02:58:32 PM EDT 1 UNIT active [facility] Insulin Lispro (Humalog Kwikpen Insulin) 100 unit/mL insulin pen 10/29/2019 02:58:32 PM EDT 1 UNIT active [facility] Insulin Lispro (Humalog Kwikpen Insulin) 100 unit/mL insulin pen 10/29/2019 02:58:32 PM EDT 1 UNIT active [facility] Insulin Lispro (Humalog Kwikpen Insulin) 100 unit/mL insulin pen 10/29/2019 02:58:32 PM EDT 1 UNIT active [facility] Insulin Lispro 10/29/2019 02:58:32 PM EDT 1 UNIT a [facility] Insulin Lispro (Humalog Kwikpen Insulin) 100 unit/mL insulin pen 10/29/2019 02:58:32 PM EDT 1 UNIT active [facility] Insulin Lispro (Humalog Kwikpen Insulin) 100 unit/mL insulin pen 10/29/2019 02:58:32 PM EDT 1 UNIT active [facility] Insulin Glargine Insulin Glargine (Basag lar Kwikpen U-100 Insulin) 100 unit/mL (3 mL) insulin pen Insulin Glargine (Basaglar Kwikpen U-100 Insulin) 100 unit/mL (3 mL) insulin pen 10/29/2019 02:57:47 PM EDT [facility] Insulin Glargine 10/29/2019 02:57:47 PM EDT 65 UNIT active [facility] Insulin Glargine Insulin Glargine (Basag lar Kwikpen U-100 Insulin) 100 unit/mL (3 mL) insulin pen Insulin Glargine (Basaglar Kwikpen U-100 Insulin) 100 unit/mL (3 mL) insulin pen 10/29/2019 02:57:47 PM EDT 65 UNIT c ompleted Insulin Glargine Insulin Glargine 10/29/2019 02:57:47 PM EDT 65 UNIT completed [facility] Insulin Glargine Insulin Glargine (Basag lar Kwikpen U-100 Insulin) 100 unit/mL (3 mL) insulin pen Insulin Glargine (Basaglar Kwikpen U-100 Insulin) 100 unit/mL (3 mL) insulin pen 10/29/2019 02:57:47 PM EDT 65 UNIT c ompleted Insulin Glargine Insulin Glargine (Basag lar Kwikpen U-100 Insulin) 100 unit/mL (3 mL) insulin pen Insulin Glargine (Basaglar Kwikpen U-100 Insulin) 100 unit/mL (3 mL) insulin pen 10/29/2019 02:57:47 PM EDT [facility] Glargine Insulin Glargine (Basag lar Kwikpen U-100 Insulin) 100 unit/mL (3 mL) insulin pen Insulin Glargine (Basaglar Kwikpen U-100 Insulin) 100 unit/mL (3 mL) insulin pen 10/29/2019 02:57:47 PM EDT [facility] Insulin Glargine Insulin Glargine (Basag lar Kwikpen U-100 Insulin) 100 unit/mL (3 mL) insulin pen Insulin Glargine (Basaglar Kwikpen U-100 Insulin) 100 unit/mL (3 mL) insulin pen 10/29/2019 02:57:47 PM EDT [facility] Insulin Glargine Insulin Glargine (Basag lar Kwikpen U-100 Insulin) 100 unit/mL (3 mL) insulin pen Insulin Glargine (Basaglar Kwikpen U-100 Insulin) 100 unit/mL (3 mL) insulin pen 10/29/2019 02:56:48 PM EDT [facility] Insulin Glargine Insulin Glargine (Basag lar Kwikpen U-100 Insulin) 100 unit/mL (3 mL) insulin pen Insulin Glargine (Basaglar Kwikpen U-100 Insulin) 100 unit/mL (3 mL) insulin pen 10/29/2019 02:56:48 PM EDT [facility] Insulin Glargine Insulin Glargine (Basag lar Kwikpen U-100 Insulin) 100 unit/mL (3 mL) insulin pen Insulin Glargine (Basaglar Kwikpen U-100 Insulin) 100 unit/mL (3 mL) insulin pen 10/29/2019 02:56:48 PM EDT [facility] Insulin Glargine Insulin Glargine (Basag lar Kwikpen U-100 Insulin) 100 unit/mL (3 mL) insulin pen Insulin Glargine (Basaglar Kwikpen U-100 Insulin) 100 unit/mL (3 mL) insulin pen 10/29/2019 02:56:48 PM EDT [facility] Insulin Glargine Insulin Glargine 10/29/2019 02:56:48 PM EDT 65 UNIT completed [facility] Insulin Glargine Insulin Glargine (Basag lar Kwikpen U-100 Insulin) 100 unit/mL (3 mL) insulin pen Insulin Glargine (Basaglar Kwikpen U-100 Insulin) 100 unit/mL (3 mL) insulin pen 10/29/2019 02:56:48 PM EDT 65 UNIT c ompleted Insulin Glargine Insulin Glargine 10/29/2019 02:56:48 PM EDT 65 UNIT completed [facility] Insulin Glargine Insulin Glargine (Basag lar Kwikpen U-100 Insulin) 100 unit/mL (3 mL) insulin pen Insulin Glargine (Basaglar Kwikpen U-100 Insulin) 100 unit/mL (3 mL) insulin pen 10/29/2019 02:56:48 PM EDT 65 UNIT c ompleted Esomeprazole 40 MG Delayed Release Oral Capsule Esomep razole Magnesium Esomeprazole Magnesium 10/29/2019 02:55:50 PM EDT 40 MG completed Esomeprazole 40 MG Delayed Release Oral Capsule Esomep razole Magnesium Esomeprazole Magnesium 10/29/2019 02:55:50 PM EDT 40 MG completed Esomeprazole 40 MG Delayed Release Oral Capsule Esomep razole Magnesium Esomeprazole Magnesium 10/29/2019 02:55:50 PM EDT 40 MG active Esomeprazole 40 MG Delayed Release Oral Capsule Esomep razole Magnesium Esomeprazole Magnesium 10/29/2019 02:55:50 PM EDT 40 MG active Esomeprazole 40 MG Delayed Release Oral Capsule Esomep razole Magnesium Esomeprazole Magnesium 10/29/2019 02:55:50 PM EDT 40 MG active Esomeprazole 40 MG Delayed Release Oral Capsule Esomep razole Magnesium Esomeprazole Magnesium 10/29/2019 02:55:50 PM EDT 40 MG active Esomeprazole 40 MG Delayed Release Oral Capsule Esomep razole Magnesium Esomeprazole Magnesium 10/29/2019 02:55:50 PM EDT 40 MG [facility] Esomeprazole 40 MG Delayed Release Oral Capsule Esomep razole Magnesium Esomeprazole Magnesium 10/29/2019 02:55:50 PM EDT 40 MG [facility] 100 mg 10/29/2019 12:00:00 AM EDT tablet 60 TAKE ONE TABLET BY MOUTH TWICE A DAY TAKE ONE TABLET BY MOUTH TWICE A DAY SOLD: 12/01/2019 [facility] Rifampin 300 MG Oral Capsule RIFAMPIN 10/29/2019 12:00:00 AM EDT caps ule 60 TAKE TWO CAPSULES BY MOUTH EVERY DAY TAKE TWO CAPSULES BY MOUTH EVERY DAY SOLD: 01/28/2020 [facility] Rifampin 300 MG Oral Capsule RIFAMPIN 10/29/2019 12:00:00 AM EDT caps ule 60 TAKE TWO CAPSULES BY MOUTH EVERY DAY TAKE TWO CAPSULES BY MOUTH EVERY DAY SOLD: 02/28/2020 [facility] 300 mg 10/29/2019 12:00:00 AM EDT capsule 60 TAKE TWO CAPSULES BY MOUTH EVERY DAY TAKE TWO CAPSULES BY MOUTH EVERY DAY SOLD: 12/01/2019 [facility] 300 mg 10/29/2019 12:00:00 AM EDT capsule 60 TAKE TWO CAPSULES BY MOUTH EVERY DAY TAKE TWO CAPSULES BY MOUTH EVERY DAY SOLD: 03/29/2020 [facility] 100 mg 10/29/2019 12:00:00 AM EDT tablet 60 TAKE ONE TABLET BY MOUTH TWICE A DAY TAKE ONE TABLET BY MOUTH TWICE A DAY SOLD: 12/30/2019 [facility] 100 mg 10/29/2019 12:00:00 AM EDT tablet 60 TAKE ONE TABLET BY MOUTH TWICE A DAY TAKE ONE TABLET BY MOUTH TWICE A DAY SOLD: 02/28/2020 [facility] topiramate 100 MG Oral Tablet Topiramate 10/29/2019 12:00:00 AM EDT active [facility] ) 300 mg 10/29/2019 12:00:00 AM EDT capsule 60 TAKE TWO CAPSULES BY MOUTH EVERY DAY TAKE TWO CAPSULES BY MOUTH EVERY DAY SOLD: 12/30/2019 [facility] 300 mg 10/29/2019 12:00:00 AM EDT capsule 60 TAKE TWO CAPSULES BY MOUTH EVERY DAY TAKE TWO CAPSULES BY MOUTH EVERY DAY SOLD: 11/01/2019 [facility] 100 mg 10/29/2019 12:00:00 AM EDT tablet 60 TAKE ONE TABLET BY MOUTH TWICE A DAY TAKE ONE TABLET BY MOUTH TWICE A DAY SOLD: 01/28/2020 [facility] 100 mg 10/29/2019 12:00:00 AM EDT tablet 60 TAKE ONE TABLET BY MOUTH TWICE A DAY TAKE ONE TABLET BY MOUTH TWICE A DAY SOLD: 10/29/2019 [facility] 0.3 mg/0.3 mL 10/26/2019 12:00:00 AM EDT auto-injector 2 INJECT INTRAMUSCULARLY FOR ANAPHYLAXIS INJECT INTRAMUSCULARLY FOR ANAPHYLAXIS SOLD: 10/29/2019 [facility] atorvastatin 40 MG Oral Tablet Atorvastatin Atorvastatin 10/25/2019 07:24:46 AM EDT 40 MG completed [facility] atorvastatin 40 MG Oral Tablet Atorvastatin Atorvastatin 10/25/2019 07:24:46 AM EDT 40 MG completed [facility] atorvastatin 40 MG Oral Tablet Atorvastatin Atorvastatin 10/25/2019 07:24:46 AM EDT 40 MG active [facility] atorvastatin 40 MG Oral Tablet Atorvastatin Atorvastatin 10/25/2019 07:24:46 AM EDT 40 MG completed [facility] atorvastatin 40 MG Oral Tablet Atorvastatin Atorvastatin 10/25/2019 07:24:46 AM EDT 40 MG completed [facility] atorvastatin 40 MG Oral Tablet Atorvastatin Atorvastatin 10/25/2019 07:24:46 AM EDT 40 MG completed [facility] atorvastatin 40 MG Oral Tablet Atorvastatin Atorvastatin 10/25/2019 07:24:46 AM EDT 40 MG active [facility] atorvastatin 40 MG Oral Tablet Atorvastatin Atorvastatin 10/25/2019 07:24:46 AM EDT 40 MG completed [facility] Epinephrine Epinephrine (Epipen) 0.3 mg/0.3 mL auto-in jector Epinephrine (Epipen) 0.3 mg/0.3 mL auto-injector 10/25/2019 07:20:25 AM EDT 0.3 MG active [facility] Epinephrine Epinephrine (Epipen) 0.3 mg/0.3 mL auto-in jector Epinephrine (Epipen) 0.3 mg/0.3 mL auto-injector 10/25/2019 07:20:25 AM EDT 0.3 MG active [facility] Epinephrine Epinephrine (Epipen) 0.3 mg/0.3 mL auto-in jector Epinephrine (Epipen) 0.3 mg/0.3 mL auto-injector 10/25/2019 07:20:25 AM EDT 0.3 MG active [facility] Epinephrine Epinephrine 10/25/2019 07:20:25 AM EDT 0.3 MG active Epine[facility] Epinephrine (Epipen) 0.3 mg/0.3 mL auto-in jector Epinephrine (Epipen) 0.3 mg/0.3 mL auto-injector 10/25/2019 07:20:25 AM EDT 0.3 MG active [facility] Epinephrine Epinephrine 10/25/2019 07:20:25 AM EDT 0.3 MG active Epinephrine Epinephrine (Epipen) 0.3 mg/0.3 mL auto-in jector Epinephrine (Epipen) 0.3 mg/0.3 mL auto-injector 10/25/2019 07:20:25 AM EDT 0.3 MG active [facility] Epinephrine Epinephrine (Epipen) 0.3 mg/0.3 mL auto-in jector Epinephrine (Epipen) 0.3 mg/0.3 mL auto-injector 10/25/2019 07:20:25 AM EDT 0.3 MG active [facility] 40 mg 10/25/2019 12:00:00 AM EDT tablet 30 TAKE ONE TABLET BY MOUTH EVERY DAY TAKE ONE TABLET BY MOUTH EVERY DAY SOLD: 12/01/2019 [facility] 40 mg 10/25/2019 12:00:00 AM EDT tablet 30 TAKE ONE TABLET BY MOUTH EVERY DAY TAKE ONE TABLET BY MOUTH EVERY DAY SOLD: 12/30/2019 [facility] 40 mg 10/25/2019 12:00:00 AM EDT tablet 30 TAKE ONE TABLET BY MOUTH EVERY DAY TAKE ONE TABLET BY MOUTH EVERY DAY SOLD: 10/29/2019 [facility] 100 mg 10/16/2019 12:00:00 AM EDT tablet 30 TAKE ONE TABLET BY MOUTH EVERY DAY TAKE ONE TABLET BY MOUTH EVERY DAY SOLD: 03/29/2020 [facility] 100 mg 10/16/2019 12:00:00 AM EDT tablet 90 TAKE ONE TABLET BY MOUTH EVERY DAY TAKE ONE TABLET BY MOUTH EVERY DAY SOLD: 10/16/2019 [facility] 100 mg 10/16/2019 12:00:00 AM EDT tablet 16 TAKE ONE TABLET BY MOUTH EVERY DAY TAKE ONE TABLET BY MOUTH EVERY DAY SOLD: 01/03/2020 [facility] 100 mg 10/16/2019 12:00:00 AM EDT tablet 30 TAKE ONE TABLET BY MOUTH EVERY DAY TAKE ONE TABLET BY MOUTH EVERY DAY SOLD: 05/25/2020 [facility] 100 mg 10/16/2019 12:00:00 AM EDT tablet 30 TAKE ONE TABLET BY MOUTH EVERY DAY TAKE ONE TABLET BY MOUTH EVERY DAY SOLD: 02/28/2020 [facility] 100 mg 10/16/2019 12:00:00 AM EDT tablet 30 TAKE ONE TABLET BY MOUTH EVERY DAY TAKE ONE TABLET BY MOUTH EVERY DAY SOLD: 01/28/2020 [facility] 100 mg 10/16/2019 12:00:00 AM EDT tablet 30 TAKE ONE TABLET BY MOUTH EVERY DAY TAKE ONE TABLET BY MOUTH EVERY DAY SOLD: 04/26/2020 [facility] Sertraline 100 MG Oral Tablet Sertraline 10/15/2019 01:36:59 PM EDT 100 MG active [facility] Sertraline 100 MG Oral Tablet Sertraline 10/15/2019 01:36:59 PM EDT 100 MG completed [facility] Sertraline 100 MG Oral Tablet Sertraline 10/15/2019 01:36:59 PM EDT 100 MG active [facility] Sertraline 100 MG Oral Tablet Sertraline 10/15/2019 01:36:59 PM EDT 100 MG completed [facility] Sertraline 100 MG Oral Tablet Sertraline 10/15/2019 01:36:59 PM EDT 100 MG active [facility] Sertraline 100 MG Oral Tablet Sertraline 10/15/2019 01:36:59 PM EDT 100 MG active [facility] Sertraline 100 MG Oral Tablet Sertraline 10/15/2019 01:36:59 PM EDT 100 MG completed [facility] Sertraline 100 MG Oral Tablet Sertraline 10/15/2019 01:36:59 PM EDT 100 MG active [facility] Alprazolam 0.25 MG Oral Tablet Alprazolam (Xanax) 0.25 mg tablet Alprazolam (Xanax) 0.25 mg tablet 10/15/2019 01:10:59 PM EDT 0.25 MG active Alprazolam 0.25 MG Oral Tablet Alprazolam 10/15/2019 01:10:59 PM EDT 0.25 MG active [facility] Alprazolam 0.25 MG Oral Tablet Alprazolam (Xanax) 0.25 mg tablet Alprazolam (Xanax) 0.25 mg tablet 10/15/2019 01:10:59 PM EDT 0.25 MG active Alprazolam 0.25 MG Oral Tablet Alprazolam (Xanax) 0.25 mg tablet Alprazolam (Xanax) 0.25 mg tablet 10/15/2019 01:10:59 PM EDT 0.25 MG active Alprazolam 0.25 MG Oral Tablet Alprazolam (Xanax) 0.25 mg tablet Alprazolam (Xanax) 0.25 mg tablet 10/15/2019 01:10:59 PM EDT 0.25 MG active Alprazolam 0.25 MG Oral Tablet Alprazolam (Xanax) 0.25 mg tablet Alprazolam (Xanax) 0.25 mg tablet 10/15/2019 01:10:59 PM EDT 0.25 MG active Alprazolam 0.25 MG Oral Tablet Alprazolam 10/15/2019 01:10:59 PM EDT 0.25 MG active [facility] Alprazolam 0.25 MG Oral Tablet Alprazolam (Xanax) 0.25 mg tablet Alprazolam (Xanax) 0.25 mg tablet 10/15/2019 01:10:59 PM EDT 0.25 MG active gabapentin 300 MG Oral Capsule Gabapentin Gabapentin 2019 12:20:50 PM EDT 300 MG completed gabapentin 300 MG Oral Capsule Gabapentin Gabapentin 2019 12:20:50 PM EDT 300 MG completed gabapentin 300 MG Oral Capsule Gabapentin Gabapentin 2019 12:20:50 PM EDT 300 MG completed gabapentin 300 MG Oral Capsule Gabapentin Gabapentin 2019 12:20:50 PM EDT 300 MG completed gabapentin 300 MG Oral Capsule Gabapentin Gabapentin 2019 12:20:50 PM EDT 300 MG completed gabapentin 300 MG Oral Capsule Gabapentin Gabapentin 2019 12:20:50 PM EDT 300 MG active [facility] gabapentin 300 MG Oral Capsule Gabapentin Gabapentin 2019 12:20:50 PM EDT 300 MG completed gabapentin 300 MG Oral Capsule Gabapentin Gabapentin 2019 12:20:50 PM EDT 300 MG completed gabapentin 300 MG Oral Capsule Gabapentin Gabapentin 2019 12:20:50 PM EDT 300 MG active [facility] ropinirole 2 MG Oral Tablet Ropinirole Ropinirole 10/15/2019 12:1 9:58 PM EDT 2 MG active [facility] ropinirole 2 MG Oral Tablet Ropinirole Ropinirole 10/15/2019 12:1 9:58 PM EDT 2 MG active [facility] ropinirole 2 MG Oral Tablet Ropinirole Ropinirole 10/15/2019 12:1 9:58 PM EDT 2 MG active [facility] ropinirole 2 MG Oral Tablet Ropinirole Ropinirole 10/15/2019 12:1 9:58 PM EDT 2 MG active [facility] ropinirole 2 MG Oral Tablet Ropinirole Ropinirole 10/15/2019 12:1 9:58 PM EDT 2 MG active [facility] ropinirole 2 MG Oral Tablet Ropinirole Ropinirole 10/15/2019 12:1 9:58 PM EDT 2 MG active [facility] ropinirole 2 MG Oral Tablet Ropinirole Ropinirole 10/15/2019 12:1 9:58 PM EDT 2 MG active [facility] ropinirole 2 MG Oral Tablet Ropinirole Ropinirole 10/15/2019 12:1 9:58 PM EDT 2 MG active [facility] ropinirole 2 MG Oral Tablet Ropinirole Ropinirole 10/15/2019 12:1 9:58 PM EDT 2 MG active [facility] ropinirole 1 MG Oral Tablet Ropinirole Ropinirole 10/15/2019 12:1 9:50 PM EDT 2 MG completed [facility] ropinirole 1 MG Oral Tablet Ropinirole Ropinirole 10/15/2019 12:1 9:50 PM EDT 2 MG completed [facility] ropinirole 1 MG Oral Tablet Ropinirole Ropinirole 10/15/2019 12:1 9:50 PM EDT 2 MG completed [facility] ropinirole 1 MG Oral Tablet Ropinirole Ropinirole 10/15/2019 12:1 9:50 PM EDT 2 MG completed [facility] ropinirole 1 MG Oral Tablet Ropinirole Ropinirole 10/15/2019 12:1 9:50 PM EDT 2 MG active [facility] ropinirole 1 MG Oral Tablet Ropinirole Ropinirole 10/15/2019 12:1 9:50 PM EDT 2 MG completed [facility] ropinirole 1 MG Oral Tablet Ropinirole Ropinirole 10/15/2019 12:1 9:50 PM EDT 2 MG completed [facility] ropinirole 1 MG Oral Tablet Ropinirole Ropinirole 10/15/2019 12:1 9:50 PM EDT 2 MG completed [facility] ropinirole 1 MG Oral Tablet Ropinirole Ropinirole 10/15/2019 12:1 9:50 PM EDT 2 MG completed [facility] Azithromycin Azithromycin 10/15/2019 12:18:12 PM [address] [facility] Azithromycin Azithromycin 10/15/2019 12:18:12 PM EDT 500 MG active Azithromycin Azithromycin 10/15/2019 12:18:12 PM EDT 500 MG active Azithromycin Azithromycin 10/15/2019 12:18:12 PM EDT 500 MG active Azithromycin Azithromycin 10/15/2019 12:18:12 PM EDT 500 MG active Azithromycin Azithromycin 10/15/2019 12:18:12 PM EDT 500 MG active Azithromycin Azithromycin 10/15/2019 12:18:12 PM EDT [address] [facility] Azithromycin Azithromycin 10/15/2019 12:18:12 PM EDT [address] [facility] Azithromycin Azithromycin 10/15/2019 12:18:12 PM EDT 500 MG active Prednisone 10 MG Oral Tablet Prednisone 10/15/2019 10:43:56 AM EDT completed [facility] Prednisone 10 MG Oral Tablet Prednisone 10/15/2019 10:43:56 AM EDT completed [facility] Prednisone 10 MG Oral Tablet Prednisone 10/15/2019 10:43:56 AM EDT completed [facility] Prednisone 10 MG Oral Tablet Prednisone 10/15/2019 10:43:56 AM EDT completed [facility] Prednisone 10 MG Oral Tablet Prednisone 10/15/2019 10:43:56 AM EDT completed [facility] Prednisone 10 MG Oral Tablet Prednisone 10/15/2019 10:43:56 AM EDT completed [facility] Prednisone 10 MG Oral Tablet Prednisone 10/15/2019 10:43:56 AM EDT completed [facility] Prednisone 10 MG Oral Tablet Prednisone 10/15/2019 10:43:56 AM EDT active [facility] Prednisone 10 MG Oral Tablet Prednisone 10/15/2019 10:43:56 AM EDT completed [facility] Zinc 10/15/2019 10:43:47 AM EDT 50 MG active Zinc 10/15/2019 10:43:47 AM EDT [address] [facility] Zinc 10/15/2019 10:43:47 AM EDT 50 MG active Zinc 10/15/2019 10:43:47 AM EDT [address] [facility] Zinc 10/15/2019 10:43:47 AM EDT [address] [facility] Zinc 10/15/2019 10:43:47 AM EDT [address] [facility] Zinc 10/15/2019 10:43:47 AM EDT 50 MG active Zinc 10/15/2019 10:43:47 AM EDT [address] [facility] Zinc 10/15/2019 10:43:47 AM EDT [address] [facility] Ascorbic Acid 500 MG Oral Capsule Ascorbic Acid (Vitam in C) Ascorbic Acid (Vitamin C) 10/15/2019 10:43:25 AM EDT active Ascorbic Acid 500 MG Oral Capsule Ascorbic Acid (Vitam in C) Ascorbic Acid (Vitamin C) 10/15/2019 10:43:25 AM EDT active Ascorbic Acid 500 MG Oral Capsule Ascorbic Acid (Vitam in C) Ascorbic Acid (Vitamin C) 10/15/2019 10:43:25 AM EDT active Ascorbic Acid 500 MG Oral Capsule Ascorbic Acid (Vitam in C) Ascorbic Acid (Vitamin C) 10/15/2019 10:43:25 AM EDT active Ascorbic Acid 500 MG Oral Capsule Ascorbic Acid (Vitam in C) Ascorbic Acid (Vitamin C) 10/15/2019 10:43:25 AM EDT active Ascorbic Acid 500 MG Oral Capsule Ascorbic Acid (Vitam in C) Ascorbic Acid (Vitamin C) 10/15/2019 10:43:25 AM EDT active Ascorbic Acid 500 MG Oral Capsule Ascorbic Acid (Vitam in C) Ascorbic Acid (Vitamin C) 10/15/2019 10:43:25 AM EDT active Ascorbic Acid 500 MG Oral Capsule Ascorbic Acid (Vitam in C) Ascorbic Acid (Vitamin C) 10/15/2019 10:43:25 AM EDT active Ascorbic Acid 500 MG Oral Capsule Ascorbic Acid (Vitam in C) Ascorbic Acid (Vitamin C) 10/15/2019 10:43:25 AM EDT active Fluticasone Propion-Salmeterol 10/15/2019 10:41:40 AM EDT active [facility] l Fluticasone Propion-Salmeterol 10/15/2019 10:41:40 AM EDT active [facility] l Fluticasone Propion-Salmeterol 10/15/2019 10:41:40 AM EDT active [facility] l Fluticasone Propion-Salmeterol 10/15/2019 10:41:40 AM EDT active [facility] l Fluticasone Propion-Salmeterol 10/15/2019 10:41:40 AM EDT active [facility] l Fluticasone Propion-Salmeterol 10/15/2019 10:41:40 AM EDT active [facility] l Fluticasone Propion-Salmeterol 10/15/2019 10:41:40 AM EDT active [facility] l Fluticasone Propion-Salmeterol 10/15/2019 10:41:40 AM EDT active [facility] l Fluticasone Propion-Salmeterol 10/15/2019 10:41:40 AM EDT active [facility] l Alprazolam 0.25 MG Oral Tablet ALPRAZOLAM 10/15/2019 12:00:00 AM EDT tablet 90 TAKE ONE TABLET BY MOUTH THREE TIMES A D AY NEEDED MAXIMUM DAILY DOSE = THREE TABLETS TAKE ONE TABLET BY MOUTH THREE TIMES A D AY NEEDED MAXIMUM DAILY DOSE = THREE TABLETS SOLD: 10/16/2019 [facility] 10 mg 10/12/2019 12:00:00 AM EDT tablet 32 TKAE 4 TABLETS BY MOUTH ONCE DAILY FOR 3 DAYS, THEN 3 TABLETS ONCE DAILY FOR 3 DAYS, THEN 2 TABLETS ONCE DAILY FOR 3 DAYS, THEN 1 TABLET ONCE DAILY FOR 5 DAYS TKAE 4 TABLETS BY MOUTH ONCE DAILY FOR 3 DAYS, THEN 3 TABLETS ONCE DAILY FOR 3 DAYS, THEN 2 TABLETS ONCE DAILY FOR 3 DAYS, THEN 1 TABLET ONCE DAILY FOR 5 DAYS SOLD: 10/12/2019 [facility] Prednisone 10 MG Oral Tablet PredniSONE 10 MG PredniSONE 10 MG 10/12/2019 12:00:00 AM EDT active 4 tablet x 3days, 3 tabs x3days , 2 [id number], 1 tabx 5 days eCW1 ([facility]) Esomeprazole 40 MG Delayed Release Oral Capsule Esomep razole Magnesium Esomeprazole Magnesium 10/05/2019 08:42:14 AM EDT 40 MG completed Esomeprazole 40 MG Delayed Release Oral Capsule Esomep razole Magnesium Esomeprazole Magnesium 10/05/2019 08:42:14 AM EDT 40 MG active Esomeprazole 40 MG Delayed Release Oral Capsule Esomep razole Magnesium Esomeprazole Magnesium 10/05/2019 08:42:14 AM EDT 40 MG completed Esomeprazole 40 MG Delayed Release Oral Capsule Esomep razole Magnesium Esomeprazole Magnesium 10/05/2019 08:42:14 AM EDT 40 MG completed Esomeprazole 40 MG Delayed Release Oral Capsule Esomep razole Magnesium Esomeprazole Magnesium 10/05/2019 08:42:14 AM EDT 40 MG completed Esomeprazole 40 MG Delayed Release Oral Capsule Esomep razole Magnesium Esomeprazole Magnesium 10/05/2019 08:42:14 AM EDT 40 MG completed Esomeprazole 40 MG Delayed Release Oral Capsule Esomep razole Magnesium Esomeprazole Magnesium 10/05/2019 08:42:14 AM EDT 40 MG completed Esomeprazole 40 MG Delayed Release Oral Capsule Esomep razole Magnesium Esomeprazole Magnesium 10/05/2019 08:42:14 AM EDT 40 MG completed Esomeprazole 40 MG Delayed Release Oral Capsule Esomep razole Magnesium Esomeprazole Magnesium 10/05/2019 08:42:14 AM EDT 40 MG completed Esomeprazole 40 MG Delayed Release Oral Capsule Esomep razole Magnesium Esomeprazole Magnesium 10/05/2019 08:42:14 AM EDT 40 MG active 40 mg 10/05/2019 12:00:00 AM EDT capsule,delayed release (DR/EC) 60 TAKE ONE CAPSULE BY MOUTH TWICE A DAY TAKE ONE CAPSULE BY MOUTH TWICE A DAY SOLD: 10/10/2019 [facility] 2.5 mg 10/03/2019 12:00:00 AM EDT tablet 12 TAKE THREE TABLETS BY MOUTH ONCE A WEEK (EVERY TUESDAY) TAKE THREE TABLETS BY MOUTH ONCE A WEEK (EVERY TUESDAY) SOLD: 10/10/2019 [facility] 2.5 mg 10/03/2019 12:00:00 AM EDT tablet 11 TAKE THREE TABLETS BY MOUTH ONCE A WEEK (EVERY TUESDAY) TAKE THREE TABLETS BY MOUTH ONCE A WEEK (EVERY TUESDAY) SOLD: 11/08/2019 [facility] 300 mg 09/25/2019 12:00:00 AM EDT capsule 20 TAKE ONE CAPSULE BY MOUTH TWICE A DAY FOR 10 DAYS TAKE ONE CAPSULE BY MOUTH TWICE A DAY FOR 10 DAYS SOLD : 09/25/2019 [facility] 60 mg 09/24/2019 12:00:00 AM EDT tablet 120 TAKE ONE TABLET BY MOUTH FOUR TIMES A DAY TAKE ONE TABLET BY MOUTH FOUR TIMES A DAY SOLD: 12/30/2019 [facility] 60 mg 09/24/2019 12:00:00 AM EDT tablet 120 TAKE ONE TABLET BY MOUTH FOUR TIMES A DAY TAKE ONE TABLET BY MOUTH FOUR TIMES A DAY SOLD: 05/25/2020 [facility] 60 mg 09/24/2019 12:00:00 AM EDT tablet 120 TAKE ONE TABLET BY MOUTH FOUR TIMES A DAY TAKE ONE TABLET BY MOUTH FOUR TIMES A DAY SOLD: 02/28/2020 [facility] 60 mg 09/24/2019 12:00:00 AM EDT tablet 120 TAKE ONE TABLET BY MOUTH FOUR TIMES A DAY TAKE ONE TABLET BY MOUTH FOUR TIMES A DAY SOLD: 12/01/2019 [facility] 60 mg 09/24/2019 12:00:00 AM EDT tablet 120 TAKE ONE TABLET BY MOUTH FOUR TIMES A DAY TAKE ONE TABLET BY MOUTH FOUR TIMES A DAY SOLD: 09/25/2019 [facility] 60 mg 09/24/2019 12:00:00 AM EDT tablet 120 TAKE ONE TABLET BY MOUTH FOUR TIMES A DAY TAKE ONE TABLET BY MOUTH FOUR TIMES A DAY SOLD: 01/28/2020 [facility] 60 mg 09/24/2019 12:00:00 AM EDT tablet 120 TAKE ONE TABLET BY MOUTH FOUR TIMES A DAY TAKE ONE TABLET BY MOUTH FOUR TIMES A DAY SOLD: 03/29/2020 [facility] 60 mg 09/24/2019 12:00:00 AM EDT tablet 120 TAKE ONE TABLET BY MOUTH FOUR TIMES A DAY TAKE ONE TABLET BY MOUTH FOUR TIMES A DAY SOLD: 04/26/2020 [facility] 60 mg 09/24/2019 12:00:00 AM EDT tablet 120 TAKE ONE TABLET BY MOUTH FOUR TIMES A DAY TAKE ONE TABLET BY MOUTH FOUR TIMES A DAY SOLD: 10/29/2019 [facility] cefdinir 300 MG Oral Capsule Cefdinir 300 MG Cefdinir 300 MG 09/24/2019 12:00:00 AM EDT active 1 tab eCW1 ([facility]) 113-14 mcg/actuation 09/18/2019 12:00:00 AM EDT aerosol powdr breath activated 1 INHALE ONE PUFF BY MOUTH TWICE A DAY INHA LE ONE PUFF BY MOUTH TWICE A DAY SOLD: 12/30/2019 [facility] 113-14 mcg/actuation 09/18/2019 12:00:00 AM EDT aerosol powdr breath activated 1 INHALE ONE PUFF BY MOUTH TWICE A DAY INHA LE ONE PUFF BY MOUTH TWICE A DAY SOLD: 09/18/2019 [facility] [employer] 113/14 113-14 MCG/ACT [employer] 11 09/21 113-14 MCG/ACT 09/18/2019 12:00:00 AM EDT active 1 puff eCW1 ([facility]) [employer] 113/14 113-14 MCG/ACT [employer] 11 09/21 113-14 MCG/ACT 09/18/2019 12:00:00 AM EDT active 1 puff eCW1 ([facility]) [employer] 113/14 113-14 MCG/ACT [employer] 11 09/21 113-14 MCG/ACT 09/18/2019 12:00:00 AM EDT active 1 puff eCW1 ([facility]) 113-14 mcg/actuation 09/18/2019 12:00:00 AM EDT aerosol powdr breath activated 1 INHALE ONE PUFF BY MOUTH TWICE A DAY INHA LE ONE PUFF BY MOUTH TWICE A DAY SOLD: 12/01/2019 [facility] [employer] 113/14 113-14 MCG/ACT [employer] 11 09/21 113-14 MCG/ACT 09/18/2019 12:00:00 AM EDT 1.0 {puff} active [employer] 113/14 113-14 MCG/ACT eCW1 ([facility]) [employer] 113/14 113-14 MCG/ACT [employer] 11 09/21 113-14 MCG/ACT 09/18/2019 12:00:00 AM EDT 1.0 {puff} active [employer] 113/14 113-14 MCG/ACT eCW1 ([facility]) 113-14 mcg/actuation 09/18/2019 12:00:00 AM EDT aerosol powdr breath activated 1 INHALE ONE PUFF BY MOUTH TWICE A DAY INHA LE ONE PUFF BY MOUTH TWICE A DAY SOLD: 11/01/2019 [facility] 0.5 mg/2 mL 09/12/2019 12:00:00 AM EST suspension for nebuli zation 120 INHALE 1 VIAL VIA NEBULIZER TWO TIMES A DAY INHALE 1 VIAL VIA NEBULIZER TWO TIMES A DAY SOLD: 09/16/2019 [facility] Budesonide 0.25 MG/ML Inhalant Solution Budesonide 09/11/2019 12: 00:00 AM EST completed MEDENT ([facility]) 62.5 mcg/actuation 08/23/2019 12:00:00 AM EST blister with d evice 30 INHALE ONE PUFF BY MOUTH EVERY DAY INHALE ONE PUFF BY MOUTH EVERY DAY SOLD: 05/25/2020 [facility] 62.5 mcg/actuation 08/23/2019 12:00:00 AM EST blister with d evice 30 INHALE ONE PUFF BY MOUTH EVERY DAY INHALE ONE PUFF BY MOUTH EVERY DAY SOLD: 10/29/2019 [facility] 62.5 mcg/actuation 08/23/2019 12:00:00 AM EST blister with d evice 30 INHALE ONE PUFF BY MOUTH EVERY DAY INHALE ONE PUFF BY MOUTH EVERY DAY SOLD: 08/26/2019 [facility] 62.5 mcg/actuation 08/23/2019 12:00:00 AM EST blister with d evice 30 INHALE ONE PUFF BY MOUTH EVERY DAY INHALE ONE PUFF BY MOUTH EVERY DAY SOLD: 06/21/2020 [facility] 62.5 mcg/actuation 08/23/2019 12:00:00 AM EST blister with d evice 30 INHALE ONE PUFF BY MOUTH EVERY DAY INHALE ONE PUFF BY MOUTH EVERY DAY SOLD: 04/06/2020 [facility] 62.5 mcg/actuation 08/23/2019 12:00:00 AM EST blister with d evice 30 INHALE ONE PUFF BY MOUTH EVERY DAY INHALE ONE PUFF BY MOUTH EVERY DAY SOLD: 09/25/2019 [facility] Esomeprazole 40 MG Delayed Release Oral Capsule Esomep razole Magnesium Esomeprazole Magnesium 08/14/2019 09:48:39 AM EST 40 MG completed Esomeprazole 40 MG Delayed Release Oral Capsule Esomep razole Magnesium Esomeprazole Magnesium 08/14/2019 09:48:39 AM EST 40 MG completed Esomeprazole 40 MG Delayed Release Oral Capsule Esomep razole Magnesium Esomeprazole Magnesium 08/14/2019 09:48:39 AM EST 40 MG completed Esomeprazole 40 MG Delayed Release Oral Capsule Esomep razole Magnesium Esomeprazole Magnesium 08/14/2019 09:48:39 AM EST 40 MG completed Esomeprazole 40 MG Delayed Release Oral Capsule Esomep razole Magnesium Esomeprazole Magnesium 08/14/2019 09:48:39 AM EST 40 MG completed Esomeprazole 40 MG Delayed Release Oral Capsule Esomep razole Magnesium Esomeprazole Magnesium 08/14/2019 09:48:39 AM EST 40 MG completed Esomeprazole 40 MG Delayed Release Oral Capsule Esomep razole Magnesium Esomeprazole Magnesium 08/14/2019 09:48:39 AM EST 40 MG completed Esomeprazole 40 MG Delayed Release Oral Capsule Esomep razole Magnesium Esomeprazole Magnesium 08/14/2019 09:48:39 AM EST 40 MG completed Esomeprazole 40 MG Delayed Release Oral Capsule Esomep razole Magnesium Esomeprazole Magnesium 08/14/2019 09:48:39 AM EST 40 MG completed Esomeprazole 40 MG Delayed Release Oral Capsule Esomep razole Magnesium Esomeprazole Magnesium 08/14/2019 09:48:39 AM EST 40 MG completed 500 million cell 08/07/2019 12:00:00 AM EST tablet 60 TAKE ONE TABLET BY MOUTH TWICE A DAY TAKE ONE TABLET BY MOUTH TWICE A DAY SOLD: 12/30/2019 [facility] 500 million cell 08/07/2019 12:00:00 AM EST tablet 60 TAKE ONE TABLET BY MOUTH TWICE A DAY TAKE ONE TABLET BY MOUTH TWICE A DAY SOLD: 10/16/2019 [facility] 500 million cell 08/07/2019 12:00:00 AM EST tablet 60 TAKE ONE TABLET BY MOUTH TWICE A DAY TAKE ONE TABLET BY MOUTH TWICE A DAY SOLD: 01/28/2020 [facility] 500 million cell 08/07/2019 12:00:00 AM EST tablet 60 TAKE ONE TABLET BY MOUTH TWICE A DAY TAKE ONE TABLET BY MOUTH TWICE A DAY SOLD: 12/01/2019 [facility] 500 million cell 08/07/2019 12:00:00 AM EST tablet 60 TAKE ONE TABLET BY MOUTH TWICE A DAY TAKE ONE TABLET BY MOUTH TWICE A DAY SOLD: 08/08/2019 [facility] 500 million cell 08/07/2019 12:00:00 AM EST tablet 32 TAKE ONE TABLET BY MOUTH TWICE A DAY TAKE ONE TABLET BY MOUTH TWICE A DAY SOLD: 11/16/2019 [facility] 0.4 % 08/05/2019 12:00:00 AM EST drops 5 INSTILL 1 DROP IN THE RIGHT EYE FOUR TIMES A DAY STARTING 3 DAYS PRIOR TO SURGERY INSTILL 1 DROP IN THE RIGHT EYE FOUR TIMES A DAY STARTING 3 DAYS PRIOR TO SURGERY SOLD: 08/05/2019 [facility] 0.3 % 08/05/2019 12:00:00 AM EST drops 5 APPLY 1 DROP IN THE RIGHT EYE FOUR TIMES A DAY STARTING 3 DAYS PRIOR TO SURGERY APPLY 1 DROP IN THE RIGHT EYE FOUR TIMES A DAY STARTING 3 DAYS PRIOR TO SURGERY SOLD: 08/05/2019 [facility] 1 % 08/04/2019 12:00:00 AM EST drops,suspension 5 INSTILL 1 DROP IN THE RIGHT EYE FOUR TIMES A DAY STARTING THE DAY OF SURGERY AFTER YOU GET HOME INSTILL 1 DROP IN THE RIGHT EYE FOUR TIMES A DAY STARTING THE DAY OF SURGERY AFTER YOU GET HOME SOLD: 08/05/2019 [facility] Sertraline 50 MG Oral Tablet Sertraline 07/29/2019 08:43:08 AM EST 50 MG completed [facility] Sertraline 50 MG Oral Tablet Sertraline 07/29/2019 08:43:08 AM EST 50 MG completed [facility] Sertraline 50 MG Oral Tablet Sertraline 07/29/2019 08:43:08 AM EST 50 MG completed [facility] Sertraline 50 MG Oral Tablet Sertraline 07/29/2019 08:43:08 AM EST 50 MG completed [facility] Sertraline 50 MG Oral Tablet Sertraline 07/29/2019 08:43:08 AM EST 50 MG completed [facility] Sertraline 50 MG Oral Tablet Sertraline 07/29/2019 08:43:08 AM EST 50 MG completed [facility] Sertraline 50 MG Oral Tablet Sertraline 07/29/2019 08:43:08 AM EST 50 MG active [facility] Sertraline 50 MG Oral Tablet Sertraline 07/29/2019 08:43:08 AM EST 50 MG completed [facility] Sertraline 50 MG Oral Tablet Sertraline 07/29/2019 08:43:08 AM EST 50 MG active [facility] Sertraline 50 MG Oral Tablet Sertraline 07/29/2019 08:43:08 AM EST 50 MG completed [facility] 50 mg 07/29/2019 12:00:00 AM EST tablet 30 TAKE ONE TABLET BY MOUTH EVERY DAY TAKE ONE TABLET BY MOUTH EVERY DAY SOLD: 09/21/2019 [facility] 50 mg 07/29/2019 12:00:00 AM EST tablet 30 TAKE ONE TABLET BY MOUTH EVERY DAY TAKE ONE TABLET BY MOUTH EVERY DAY SOLD: 08/01/2019 [facility] 40 mg 07/26/2019 12:00:00 AM EST capsule,delayed release (DR/EC) 90 TAKE ONE CAPSULE BY MOUTH EVERY DAY TAKE ONE CAPSULE BY MOUTH EVERY DAY SOLD: 07/28/2019 [facility] 81 mg 07/26/2019 12:00:00 AM EST tablet,delayed release (DR/EC) 30 TAKE ONE TABLET BY MOUTH EVERY DAY TAKE ONE TABLET BY MOUTH EVERY DAY SOLD: 07/28/2019 [facility] Esomeprazole 40 MG Delayed Release Oral Capsule Esomep razole Magnesium Esomeprazole Magnesium 07/25/2019 05:47:25 PM EST 40 MG completed Esomeprazole 40 MG Delayed Release Oral Capsule Esomep razole Magnesium Esomeprazole Magnesium 07/25/2019 05:47:25 PM EST 40 MG completed Esomeprazole 40 MG Delayed Release Oral Capsule Esomep razole Magnesium Esomeprazole Magnesium 07/25/2019 05:47:25 PM EST 40 MG completed Esomeprazole 40 MG Delayed Release Oral Capsule Esomep razole Magnesium Esomeprazole Magnesium 07/25/2019 05:47:25 PM EST 40 MG completed Esomeprazole 40 MG Delayed Release Oral Capsule Esomep razole Magnesium Esomeprazole Magnesium 07/25/2019 05:47:25 PM EST 40 MG completed Esomeprazole 40 MG Delayed Release Oral Capsule Esomep razole Magnesium Esomeprazole Magnesium 07/25/2019 05:47:25 PM EST 40 MG completed Esomeprazole 40 MG Delayed Release Oral Capsule Esomep razole Magnesium Esomeprazole Magnesium 07/25/2019 05:47:25 PM EST 40 MG completed Esomeprazole 40 MG Delayed Release Oral Capsule Esomep razole Magnesium Esomeprazole Magnesium 07/25/2019 05:47:25 PM EST 40 MG completed Esomeprazole 40 MG Delayed Release Oral Capsule Esomep razole Magnesium Esomeprazole Magnesium 07/25/2019 05:47:25 PM EST 40 MG completed Esomeprazole 40 MG Delayed Release Oral Capsule Esomep razole Magnesium Esomeprazole Magnesium 07/25/2019 05:47:25 PM EST 40 MG completed cefdinir 300 MG Oral Capsule Cefdinir 300 MG Cefdinir 300 MG 07/23/2019 12:00:00 AM EST active 1 tab eCW1 ([facility]) cefdinir 300 MG Oral Capsule Cefdinir 300 MG Cefdinir 300 MG 07/23/2019 12:00:00 AM EST active 1 tab eCW1 ([facility]) 300 mg 07/23/2019 12:00:00 AM EST capsule 14 TAKE ONE CAPSULE BY MOUTH TWICE A DAY FOR 7 DAYS TAKE ONE CAPSULE BY MOUTH TWICE A DAY FOR 7 DAYS SOLD: 07/23/2019 [facility] 2.5 mg 07/15/2019 12:00:00 AM EST tablet 30 TAKE ONE TABLET BY MOUTH EVERY DAY TAKE ONE TABLET BY MOUTH EVERY DAY SOLD: 12/01/2019 [facility] 2.5 mg 07/15/2019 12:00:00 AM EST tablet 30 TAKE ONE TABLET BY MOUTH EVERY DAY TAKE ONE TABLET BY MOUTH EVERY DAY SOLD: 05/25/2020 [facility] 2.5 mg 07/15/2019 12:00:00 AM EST tablet 30 TAKE ONE TABLET BY MOUTH EVERY DAY TAKE ONE TABLET BY MOUTH EVERY DAY SOLD: 02/28/2020 [facility] 2.5 mg 07/15/2019 12:00:00 AM EST tablet 30 TAKE ONE TABLET BY MOUTH EVERY DAY TAKE ONE TABLET BY MOUTH EVERY DAY SOLD: 11/01/2019 [facility] 1,250 mcg (50,000 unit) 07/15/2019 12:00:00 AM EST capsule 4 TAKE ONE CAPSULE BY MOUTH ONCE WEEKLY ON TUESDAY FOR LOW VITAMIN DAILY TAKE ONE CAPSULE BY MOUTH ONCE WEEKLY ON TUESDAY FOR LOW VITAMIN DAILY SOLD: 07/19/2019 [facility] 2.5 mg 07/15/2019 12:00:00 AM EST tablet 30 TAKE ONE TABLET BY MOUTH EVERY DAY TAKE ONE TABLET BY MOUTH EVERY DAY SOLD: 12/30/2019 [facility] 2.5 mg 07/15/2019 12:00:00 AM EST tablet 30 TAKE ONE TABLET BY MOUTH EVERY DAY TAKE ONE TABLET BY MOUTH EVERY DAY SOLD: 06/21/2020 [facility] 2.5 mg 07/15/2019 12:00:00 AM EST tablet 30 TAKE ONE TABLET BY MOUTH EVERY DAY TAKE ONE TABLET BY MOUTH EVERY DAY SOLD: 04/26/2020 [facility] 1,250 mcg (50,000 unit) 07/15/2019 12:00:00 AM EST capsule 4 TAKE ONE CAPSULE BY MOUTH ONCE WEEKLY ON TUESDAY FOR LOW VITAMIN DAILY TAKE ONE CAPSULE BY MOUTH ONCE WEEKLY ON TUESDAY FOR LOW VITAMIN DAILY SOLD: 04/26/2020 [facility] 2.5 mg 07/15/2019 12:00:00 AM EST tablet 90 TAKE ONE TABLET BY MOUTH EVERY DAY TAKE ONE TABLET BY MOUTH EVERY DAY SOLD: 07/19/2019 [facility] 2.5 mg 07/15/2019 12:00:00 AM EST tablet 30 TAKE ONE TABLET BY MOUTH EVERY DAY TAKE ONE TABLET BY MOUTH EVERY DAY SOLD: 01/28/2020 [facility] 2.5 mg 07/15/2019 12:00:00 AM EST tablet 30 TAKE ONE TABLET BY MOUTH EVERY DAY TAKE ONE TABLET BY MOUTH EVERY DAY SOLD: 03/29/2020 [facility] Ranitidine 150 MG Oral Tablet Ranitidine Hcl Ranitidine Hcl 07/14/2019 08:27:12 AM EST 300 MG completed [facility] Ranitidine 150 MG Oral Tablet Ranitidine Hcl Ranitidine Hcl 07/14/2019 08:27:12 AM EST 300 MG completed [facility] Ranitidine 150 MG Oral Tablet Ranitidine Hcl Ranitidine Hcl 07/14/2019 08:27:12 AM EST 300 MG active [facility] Ranitidine 150 MG Oral Tablet Ranitidine Hcl Ranitidine Hcl 07/14/2019 08:27:12 AM EST 300 MG completed [facility] Ranitidine 150 MG Oral Tablet Ranitidine Hcl Ranitidine Hcl 07/14/2019 08:27:12 AM EST 300 MG completed [facility] Ranitidine 150 MG Oral Tablet Ranitidine Hcl Ranitidine Hcl 07/14/2019 08:27:12 AM EST 300 MG completed [facility] Ranitidine 150 MG Oral Tablet Ranitidine Hcl Ranitidine Hcl 07/14/2019 08:27:12 AM EST 300 MG completed [facility] Ranitidine 150 MG Oral Tablet Ranitidine Hcl Ranitidine Hcl 07/14/2019 08:27:12 AM EST 300 MG completed [facility] Ranitidine 150 MG Oral Tablet Ranitidine Hcl Ranitidine Hcl 07/14/2019 08:27:12 AM EST 300 MG active [facility] Ranitidine 150 MG Oral Tablet Ranitidine Hcl Ranitidine Hcl 07/14/2019 08:27:12 AM EST 300 MG completed [facility] Ergocalciferol [id number] UNT Oral Capsule Er gocalciferol (Vitamin D2) (Vitamin D2) 1,250 mcg (50,000 unit) capsule Ergocalciferol (Vitamin D2) (Vitamin D2) 1,250 mcg (50,000 unit) capsule 07/14/2019 08:26:59 AM EST [id number] UNIT active Ergocalciferol [id number] UNT Oral Capsule Er gocalciferol (Vitamin D2) (Vitamin D2) 1,250 mcg (50,000 unit) capsule Ergocalciferol (Vitamin D2) (Vitamin D2) 1,250 mcg (50,000 unit) capsule 07/14/2019 08:26:59 AM EST [id number] UNIT active Ergocalciferol 32883 UNT Oral Capsule Ergocalciferol ( Vitamin D2) Ergocalciferol (Vitamin D2) 07/14/2019 08:26:59 AM EST [facility] 24355 UNT Oral Capsule Er gocalciferol (Vitamin D2) (Vitamin D2) 1,250 mcg (50,000 unit) capsule Ergocalciferol (Vitamin D2) (Vitamin D2) 1,250 mcg (50,000 unit) capsule 07/14/2019 08:26:59 AM EST [id number] UNIT active Ergocalciferol 15826 UNT Oral Capsule Ergocalciferol ( Vitamin D2) Ergocalciferol (Vitamin D2) 07/14/2019 08:26:59 AM EST [id number] [facility] 28147 UNT Oral Capsule Ergocalciferol ( Vitamin D2) Ergocalciferol (Vitamin D2) 07/14/2019 08:26:59 AM EST 12042 UNIT [facility] Ergocalciferol 72040 UNT Oral Capsule Er gocalciferol (Vitamin D2) (Vitamin D2) 1,250 mcg (50,000 unit) capsule Ergocalciferol (Vitamin D2) (Vitamin D2) 1,250 mcg (50,000 unit) capsule 07/14/2019 08:26:59 AM EST [id number] UNIT active Ergocalciferol 43270 UNT Oral Capsule Er gocalciferol (Vitamin D2) (Vitamin D2) 1,250 mcg (50,000 unit) capsule Ergocalciferol (Vitamin D2) (Vitamin D2) 1,250 mcg (50,000 unit) capsule 07/14/2019 08:26:59 AM EST 55751 UNIT active Ergocalciferol 31770 UNT Oral Capsule Er gocalciferol (Vitamin D2) (Vitamin D2) 1,250 mcg (50,000 unit) capsule Ergocalciferol (Vitamin D2) (Vitamin D2) 1,250 mcg (50,000 unit) capsule 07/14/2019 08:26:59 AM EST [id number] UNIT active Ergocalciferol 66590 UNT Oral Capsule Ergocalciferol ( Vitamin D2) Ergocalciferol (Vitamin D2) 07/14/2019 08:26:59 AM EST [id number] UNIT acti ve Enalapril Maleate 2.5 MG Oral Tablet Enalapril Maleate 10/2019 08:26:34 AM EST 2.5 MG active [facility] Enalapril Maleate 2.5 MG Oral Tablet Enalapril Maleate 10/2019 08:26:34 AM EST 2.5 MG active [facility] Enalapril Maleate 2.5 MG Oral Tablet Enalapril Maleate 10/2019 08:26:34 AM EST 2.5 MG active [facility] Enalapril Maleate 2.5 MG Oral Tablet Enalapril Maleate 10/2019 08:26:34 AM EST 2.5 MG active [facility] Enalapril Maleate 2.5 MG Oral Tablet Enalapril Maleate 10/2019 08:26:34 AM EST 2.5 MG completed [facility] Enalapril Maleate 2.5 MG Oral Tablet Enalapril Maleate 10/2019 08:26:34 AM EST 2.5 MG active [facility] Enalapril Maleate 2.5 MG Oral Tablet Enalapril Maleate 10/2019 08:26:34 AM EST 2.5 MG active [facility] Enalapril Maleate 2.5 MG Oral Tablet Enalapril Maleate 10/2019 08:26:34 AM EST 2.5 MG active [facility] Enalapril Maleate 2.5 MG Oral Tablet Enalapril Maleate 10/2019 08:26:34 AM EST 2.5 MG completed [facility] Enalapril Maleate 2.5 MG Oral Tablet Enalapril Maleate 10/2019 08:26:34 AM EST 2.5 MG completed [facility] 1 mg 06/29/2019 12:00:00 AM EST tablet 30 TAKE ONE TABLET BY MOUTH EVERY DAY TAKE ONE TABLET BY MOUTH EVERY DAY SOLD: 11/01/2019 [facility] 1 mg 06/29/2019 12:00:00 AM EST tablet 30 TAKE ONE TABLET BY MOUTH EVERY DAY TAKE ONE TABLET BY MOUTH EVERY DAY SOLD: 07/03/2019 [facility] 1 mg 06/29/2019 12:00:00 AM EST tablet 30 TAKE ONE TABLET BY MOUTH EVERY DAY TAKE ONE TABLET BY MOUTH EVERY DAY SOLD: 12/01/2019 [facility] 2.5 mg 06/27/2019 12:00:00 AM EST tablet 12 TAKE 3 TABLETS BY MOUT ONCE A WEEK, ( EVERY TUESDAY ) MAXIMUM DAILY DOSE = 3 TAKE 3 TABLETS BY MOUT ONCE A WEEK, ( EVERY TUESDAY ) MAXIMUM DAILY DOSE = 3 SOLD: 09/09/2019 [facility] 2.5 mg 06/27/2019 12:00:00 AM EST tablet 12 TAKE 3 TABLETS BY MOUT ONCE A WEEK, ( EVERY TUESDAY ) MAXIMUM DAILY DOSE = 3 TAKE 3 TABLETS BY MOUT ONCE A WEEK, ( EVERY TUESDAY ) MAXIMUM DAILY DOSE = 3 SOLD: 08/13/2019 [facility] 2.5 mg 06/27/2019 12:00:00 AM EST tablet 12 TAKE 3 TABLETS BY MOUT ONCE A WEEK, ( EVERY TUESDAY ) MAXIMUM DAILY DOSE = 3 TAKE 3 TABLETS BY MOUT ONCE A WEEK, ( EVERY TUESDAY ) MAXIMUM DAILY DOSE = 3 SOLD: 06/29/2019 [facility] Aspirin 81 MG Delayed Release Oral Tablet Aspirin 06/26/2019 0 4:08:04 PM EST completed [facility] Aspirin 81 MG Delayed Release Oral Tablet Aspirin 06/26/2019 0 4:08:04 PM EST active [facility] Aspirin 81 MG Delayed Release Oral Tablet Aspirin 06/26/2019 0 4:08:04 PM EST completed [facility] Aspirin 81 MG Delayed Release Oral Tablet Aspirin 06/26/2019 0 4:08:04 PM EST completed [facility] Aspirin 81 MG Delayed Release Oral Tablet Aspirin 06/26/2019 0 4:08:04 PM EST completed [facility] Aspirin 81 MG Delayed Release Oral Tablet Aspirin 06/26/2019 0 4:08:04 PM EST completed [facility] Aspirin 81 MG Delayed Release Oral Tablet Aspirin 06/26/2019 0 4:08:04 PM EST completed [facility] Aspirin 81 MG Delayed Release Oral Tablet Aspirin 06/26/2019 0 4:08:04 PM EST active [facility] Aspirin 81 MG Delayed Release Oral Tablet Aspirin 06/26/2019 0 4:08:04 PM EST active [facility] Aspirin 81 MG Delayed Release Oral Tablet Aspirin 06/26/2019 0 4:08:04 PM EST completed [facility] Lactobacillus acidophilus [id number] UNT Oral Tablet La ctobacillus Acidophilus Lactobacillus Acidophilus 06/26/2019 04:07:06 PM EST active Lactobacillus acidophilus [id number] UNT Oral Tablet [facility] ctobacillus Acidophilus Lactobacillus Acidophilus 06/26/2019 04:07:06 PM [facility] Lactobacillus acidophilus [id number] UNT Oral Tablet La ctobacillus Acidophilus Lactobacillus Acidophilus 06/26/2019 04:07:06 PM [facility] Lactobacillus acidophilus [id number] UNT Oral Tablet La ctobacillus Acidophilus Lactobacillus Acidophilus 06/26/2019 04:07:06 PM [facility] Lactobacillus acidophilus [id number] UNT Oral Tablet [facility] ctobacillus Acidophilus Lactobacillus Acidophilus 06/26/2019 04:07:06 PM [facility] Lactobacillus acidophilus [id number] UNT Oral Tablet [facility] ctobacillus Acidophilus Lactobacillus Acidophilus 06/26/2019 04:07:06 PM [facility] Lactobacillus acidophilus [id number] UNT Oral Tablet [facility] ctobacillus Acidophilus Lactobacillus Acidophilus 06/26/2019 04:07:06 PM [facility] Lactobacillus acidophilus [id number] UNT Oral Tablet [facility] ctobacillus Acidophilus Lactobacillus Acidophilus 06/26/2019 04:07:06 PM [facility] Lactobacillus acidophilus [id number] UNT Oral Tablet [facility] ctobacillus Acidophilus Lactobacillus Acidophilus 06/26/2019 04:07:06 PM [facility] Lactobacillus acidophilus [id number] UNT Oral Tablet [facility] ctobacillus Acidophilus Lactobacillus Acidophilus 06/26/2019 04:07:06 PM [facility] 24 HR ropinirole 2 MG Extended Release Oral Tablet Ropinirol e HCL ER 06/20/2019 12:00:00 AM EST ORAL completed [facility] ([facility] ) gabapentin 300 MG Oral Capsule Gabapentin Gabapentin 2018 01:48:45 PM EST 300 MG completed gabapentin 300 MG Oral Capsule Gabapentin Gabapentin 2018 01:48:45 PM EST 300 MG completed gabapentin 300 MG Oral Capsule Gabapentin Gabapentin 2018 01:48:45 PM EST 300 MG active [facility] gabapentin 300 MG Oral Capsule Gabapentin Gabapentin 2018 01:48:45 PM EST 300 MG active [facility] gabapentin 300 MG Oral Capsule Gabapentin Gabapentin 2018 01:48:45 PM EST 300 MG completed gabapentin 300 MG Oral Capsule Gabapentin Gabapentin 2018 01:48:45 PM EST 300 MG completed gabapentin 300 MG Oral Capsule Gabapentin Gabapentin 2018 01:48:45 PM EST 300 MG completed gabapentin 300 MG Oral Capsule Gabapentin Gabapentin 2018 01:48:45 PM EST 300 MG [facility] gabapentin 300 MG Oral Capsule Gabapentin Gabapentin 2018 01:48:45 PM EST 300 MG [facility] gabapentin 300 MG Oral Capsule Gabapentin Gabapentin 2018 01:48:45 PM EST 300 MG [facility] Blood Sugar Diagnostic 06/18/2019 01:48:33 PM EST active Blood Sugar Diagnostic (Onetouch Verio) strip 06/18/2019 0 1:48:33 PM EST active [facility] Blood Sugar Diagnostic (Onetouch Verio) strip 06/18/2019 0 1:48:33 PM EST active [facility] Blood Sugar Diagnostic 06/18/2019 01:48:33 PM EST active Blood Sugar Diagnostic (Onetouch Verio) strip 06/18/2019 0 1:48:33 PM EST active [facility] Blood Sugar Diagnostic (Onetouch Verio) strip 06/18/2019 0 1:48:33 PM EST active [facility] Blood Sugar Diagnostic 06/18/2019 01:48:33 PM EST active Blood Sugar Diagnostic 06/18/2019 01:48:33 PM EST active Blood Sugar Diagnostic (Onetouch Verio) strip 06/18/2019 0 1:48:33 PM EST active [facility] Blood Sugar Diagnostic (Nimatouch Chacortaio) strip 06/18/2019 0 1:48:33 PM EST active [facility] BLOOD SUGAR DIAGNOSTIC 06/18/2019 12:00:00 AM EST strip 100 USE TO TEST BLOOD SUGAR BEFORE MEALS AND AT BEDTIME USE TO TEST BLOOD SUGAR BEFORE MEALS AND AT BEDTIME SOLD: 07/13/2019 [facility] 300 mg 06/18/2019 12:00:00 AM EST capsule 90 TAKE ONE CAPSULE BY MOUTH THREE TIMES A DAY TAKE ONE CAPSULE BY MOUTH THREE TIMES A DAY SOLD: 09/16/2019 [facility] BLOOD SUGAR DIAGNOSTIC 06/18/2019 12:00:00 AM EST strip 100 USE TO TEST BLOOD SUGAR BEFORE MEALS AND AT BEDTIME USE TO TEST BLOOD SUGAR BEFORE MEALS AND AT BEDTIME SOLD: 10/29/2019 [facility] BLOOD SUGAR DIAGNOSTIC 06/18/2019 12:00:00 AM EST strip 100 USE TO TEST BLOOD SUGAR BEFORE MEALS AND AT BEDTIME USE TO TEST BLOOD SUGAR BEFORE MEALS AND AT BEDTIME SOLD: 06/18/2019 [facility] 300 mg 06/18/2019 12:00:00 AM EST capsule 90 TAKE ONE CAPSULE BY MOUTH THREE TIMES A DAY TAKE ONE CAPSULE BY MOUTH THREE TIMES A DAY SOLD: 10/16/2019 [facility] 300 mg 06/18/2019 12:00:00 AM EST capsule 90 TAKE ONE CAPSULE BY MOUTH THREE TIMES A DAY TAKE ONE CAPSULE BY MOUTH THREE TIMES A DAY SOLD: 07/19/2019 [facility] BLOOD SUGAR DIAGNOSTIC 06/18/2019 12:00:00 AM EST strip 100 USE TO TEST BLOOD SUGAR BEFORE MEALS AND AT BEDTIME USE TO TEST BLOOD SUGAR BEFORE MEALS AND AT BEDTIME SOLD: 08/30/2019 [facility] 300 mg 06/18/2019 12:00:00 AM EST capsule 90 TAKE ONE CAPSULE BY MOUTH THREE TIMES A DAY TAKE ONE CAPSULE BY MOUTH THREE TIMES A DAY SOLD: 06/18/2019 [facility] BLOOD SUGAR DIAGNOSTIC 06/18/2019 12:00:00 AM EST strip 100 USE TO TEST BLOOD SUGAR BEFORE MEALS AND AT BEDTIME USE TO TEST BLOOD SUGAR BEFORE MEALS AND AT BEDTIME SOLD: 08/05/2019 [facility] BLOOD SUGAR DIAGNOSTIC 06/18/2019 12:00:00 AM EST strip 100 USE TO TEST BLOOD SUGAR BEFORE MEALS AND AT BEDTIME USE TO TEST BLOOD SUGAR BEFORE MEALS AND AT BEDTIME SOLD: 09/25/2019 [facility] 300 mg 06/18/2019 12:00:00 AM EST capsule 90 TAKE ONE CAPSULE BY MOUTH THREE TIMES A DAY TAKE ONE CAPSULE BY MOUTH THREE TIMES A DAY SOLD: 08/16/2019 [facility] 300 mg 06/18/2019 12:00:00 AM EST capsule 48 TAKE ONE CAPSULE BY MOUTH THREE TIMES A DAY TAKE ONE CAPSULE BY MOUTH THREE TIMES A DAY SOLD: 11/16/2019 [facility] 500 million cell 06/09/2019 12:00:00 AM EST tablet 60 TAKE ONE CAPSULE BY MOUTH TWO TIMES A DAY TAKE ONE CAPSULE BY MOUTH TWO TIMES A DAY SOLD: 2018 [facility] 500 million cell 06/09/2019 12:00:00 AM EST tablet 60 TAKE ONE CAPSULE BY MOUTH TWO TIMES A DAY TAKE ONE CAPSULE BY MOUTH TWO TIMES A DAY SOLD: 2018 [facility] 2 mg 06/08/2019 12:00:00 AM EST tablet 225 TAKE 1 TABLET BY MOUTH EVERY MORNING , 1/2 TABLET AT 2PM. AND 1 TABLET AT BEDTIME TAKE 1 TABLET BY MOUTH EVERY MORNING , 1/2 TABLET AT 2PM. AND 1 TABLET AT BEDTIME SOLD: 06/12/2019 [facility] 2 mg 06/08/2019 12:00:00 AM EST tablet 225 TAKE 1 TABLET BY MOUTH EVERY MORNING , 1/2 TABLET AT 2PM. AND 1 TABLET AT BEDTIME TAKE 1 TABLET BY MOUTH EVERY MORNING , 1/2 TABLET AT 2PM. AND 1 TABLET AT BEDTIME SOLD: 09/09/2019 [facility] 2 mg 06/08/2019 12:00:00 AM EST tablet 75 TAKE 1 TABLET BY MOUTH EVERY MORNING , 1/2 TABLET AT 2PM. AND 1 TABLET AT BEDTIME TAKE 1 TABLET BY MOUTH EVERY MORNING , 1/2 TABLET AT 2PM. AND 1 TABLET AT BEDTIME SOLD: 12/30/2019 [facility] 2 mg 06/08/2019 12:00:00 AM EST tablet 75 TAKE 1 TABLET BY MOUTH EVERY MORNING , 1/2 TABLET AT 2PM. AND 1 TABLET AT BEDTIME TAKE 1 TABLET BY MOUTH EVERY MORNING , 1/2 TABLET AT 2PM. AND 1 TABLET AT BEDTIME SOLD: 02/28/2020 [facility] 2 mg 06/08/2019 12:00:00 AM EST tablet 75 TAKE 1 TABLET BY MOUTH EVERY MORNING , 1/2 TABLET AT 2PM. AND 1 TABLET AT BEDTIME TAKE 1 TABLET BY MOUTH EVERY MORNING , 1/2 TABLET AT 2PM. AND 1 TABLET AT BEDTIME SOLD: 04/26/2020 [facility] 2 mg 06/08/2019 12:00:00 AM EST tablet 75 TAKE 1 TABLET BY MOUTH EVERY MORNING , 1/2 TABLET AT 2PM. AND 1 TABLET AT BEDTIME TAKE 1 TABLET BY MOUTH EVERY MORNING , 1/2 TABLET AT 2PM. AND 1 TABLET AT BEDTIME SOLD: 01/28/2020 [facility] 2 mg 06/08/2019 12:00:00 AM EST tablet 75 TAKE 1 TABLET BY MOUTH EVERY MORNING , 1/2 TABLET AT 2PM. AND 1 TABLET AT BEDTIME TAKE 1 TABLET BY MOUTH EVERY MORNING , 1/2 TABLET AT 2PM. AND 1 TABLET AT BEDTIME SOLD: 12/01/2019 [facility] 2 mg 06/08/2019 12:00:00 AM EST tablet 75 TAKE 1 TABLET BY MOUTH EVERY MORNING , 1/2 TABLET AT 2PM. AND 1 TABLET AT BEDTIME TAKE 1 TABLET BY MOUTH EVERY MORNING , 1/2 TABLET AT 2PM. AND 1 TABLET AT BEDTIME SOLD: 03/29/2020 [facility] Acidophilus Probiotic Blend - Acidophilus Probiotic Blend - 06/06/2019 12:00:00 AM EST active 1 cap eCW1 ([facility]) Acidophilus Probiotic Blend - Acidophilus Probiotic Blend - 06/06/2019 12:00:00 AM EST active 1 cap eCW1 ([facility]) ropinirole 0.25 MG Oral Tablet [Requip] Requip 06/06/2019 12:00:0 0 AM EST ORAL completed [facility] ([facility]) ropinirole 2 MG Oral Tablet Ropinirole HCL 06/06/2019 12:00:00 AM EST active [facility] ([facility]) Acidophilus Probiotic Blend - Acidophilus Probiotic Blend - 06/06/2019 12:00:00 AM EST active 1 cap eCW1 ([facility]) 33 gauge 06/03/2019 12:00:00 AM EST misc 100 USE TO TEST BLOOD SUGAR BEFORE MEALS AND AT BEDTIME USE TO TEST BLOOD SUGAR BEFORE MEALS AND AT BEDTIME SO LD: 10/29/2019 [facility] 33 gauge 06/03/2019 12:00:00 AM EST misc 100 USE TO TEST BLOOD SUGAR BEFORE MEALS AND AT BEDTIME USE TO TEST BLOOD SUGAR BEFORE MEALS AND AT BEDTIME SO LD: 10/03/2019 [facility] 33 [facility] [place]03/2019 12:00:00 AM EST misc 100 USE TO TEST BLOOD SUGAR BEFORE MEALS AND AT BEDTIME USE TO TEST BLOOD SUGAR BEFORE MEALS AND AT BEDTIME SO LD: 06/03/2019 [facility] Lancets 06/01/2019 03:57:38 PM EST active [facility] 06/01/2019 03:57:38 PM EST active [facility] ([facility]) [address] [place] [id number] 2018 03:57:38 PM EST active [facility] Lancets ([employer] [facility]) [address] [place] [id number] 2018 03:57:38 PM EST active [facility] ([employer] [facility]) [address] [place] [id number] 2018 03:57:38 PM EST active [facility] ([employer] [facility]) [address] [place] [id number] 2018 03:57:38 PM EST active [facility] ([employer] [facility]) [address] [place] [id number] 2018 03:57:38 PM EST active [facility] 06/01/2019 03:57:38 PM EST active [facility] 06/01/2019 03:57:38 PM EST active [facility] ([facility] [facility]) [address] [place] [id number] 2018 03:57:38 PM EST active [facility] 4 mg 05/31/2019 12:00:00 AM EST tablet 30 TAKE ONE TABLET BY MOUTH EVERY 4 HOURS NEEDED TAKE ONE TABLET BY MOUTH EVERY 4 HOURS NEEDED SOLD: 05/31/2019 [facility] 100 mg 05/14/2019 12:00:00 AM EST tablet 60 TAKE ONE TABLET BY MOUTH TWICE A DAY TAKE ONE TABLET BY MOUTH TWICE A DAY SOLD: 08/08/2019 [facility] 100 mg 05/14/2019 12:00:00 AM EST tablet 60 TAKE ONE TABLET BY MOUTH TWICE A DAY TAKE ONE TABLET BY MOUTH TWICE A DAY SOLD: 06/12/2019 [facility] 100 mg 05/14/2019 12:00:00 AM EST tablet 60 TAKE ONE TABLET BY MOUTH TWICE A DAY TAKE ONE TABLET BY MOUTH TWICE A DAY SOLD: 09/04/2019 [facility] 100 mg 05/14/2019 12:00:00 AM EST tablet 60 TAKE ONE TABLET BY MOUTH TWICE A DAY TAKE ONE TABLET BY MOUTH TWICE A DAY SOLD: 07/10/2019 [facility] 100 mg 05/14/2019 12:00:00 AM EST tablet 60 TAKE ONE TABLET BY MOUTH TWICE A DAY TAKE ONE TABLET BY MOUTH TWICE A DAY SOLD: 10/03/2019 [facility] 2.5 mg 05/09/2019 12:00:00 AM EDT tablet 12 TAKE THREE TABLETS BY MOUTH ONCE A WEEK, EVERY TUESDAY TAKE THREE TABLETS BY MOUTH ONCE A WEEK, EVERY SOLD: 06/03/2019 [facility] 1 mg 05/08/2019 12:00:00 AM EDT tablet 30 TAKE ONE TABLET BY MOUTH EVERY DAY TAKE ONE TABLET BY MOUTH EVERY DAY SOLD: 06/03/2019 [facility] 250 mg 05/05/2019 12:00:00 AM EDT tablet 30 TAKE ONE TABLET BY MOUTH EVERY DAY TAKE ONE TABLET BY MOUTH EVERY DAY SOLD: 07/05/2019 [facility] 250 mg 05/05/2019 12:00:00 AM EDT tablet 30 TAKE ONE TABLET BY MOUTH EVERY DAY TAKE ONE TABLET BY MOUTH EVERY DAY SOLD: 10/03/2019 [facility] 250 mg 05/05/2019 12:00:00 AM EDT tablet 30 TAKE ONE TABLET BY MOUTH EVERY DAY TAKE ONE TABLET BY MOUTH EVERY DAY SOLD: 08/05/2019 [facility] 250 mg 05/05/2019 12:00:00 AM EDT tablet 30 TAKE ONE TABLET BY MOUTH EVERY DAY TAKE ONE TABLET BY MOUTH EVERY DAY SOLD: 09/02/2019 [facility] 250 mg 05/05/2019 12:00:00 AM EDT tablet 30 TAKE ONE TABLET BY MOUTH EVERY DAY TAKE ONE TABLET BY MOUTH EVERY DAY SOLD: 06/03/2019 [facility] Sertraline 50 MG Oral Tablet Sertraline 05/04/2019 02:45:47 PM EDT 50 MG completed [facility] Sertraline 50 MG Oral Tablet Sertraline 05/04/2019 02:45:47 PM EDT 50 MG completed [facility] Sertraline 50 MG Oral Tablet Sertraline 05/04/2019 02:45:47 PM EDT 50 MG completed [facility] Sertraline 50 MG Oral Tablet Sertraline 05/04/2019 02:45:47 PM EDT 50 MG completed [facility] Sertraline 50 MG Oral Tablet Sertraline 05/04/2019 02:45:47 PM EDT 50 MG completed [facility] Sertraline 50 MG Oral Tablet Sertraline 05/04/2019 02:45:47 PM EDT 50 MG completed [facility] Sertraline 50 MG Oral Tablet Sertraline 05/04/2019 02:45:47 PM EDT 50 MG completed [facility] Sertraline 50 MG Oral Tablet Sertraline 05/04/2019 02:45:47 PM EDT 50 MG completed [facility] Sertraline 50 MG Oral Tablet Sertraline 05/04/2019 02:45:47 PM EDT 50 MG completed [facility] Sertraline 50 MG Oral Tablet Sertraline 05/04/2019 02:45:47 PM EDT 50 MG completed [facility] Azithromycin 250 MG Oral Tablet Azithromycin 05/04/2019 01:58:56 PM EDT 250 MG completed [facility] Azithromycin 250 MG Oral Tablet Azithromycin (Zithroma x) 250 mg tablet Azithromycin (Zithromax) 250 mg tablet 05/04/2019 01:58:56 PM EDT 250 MG completed [facility] Azithromycin 250 MG Oral Tablet Azithromycin (Zithroma x) 250 mg tablet Azithromycin (Zithromax) 250 mg tablet 05/04/2019 01:58:56 PM EDT 250 MG completed [facility] Azithromycin 250 MG Oral Tablet Azithromycin (Zithroma x) 250 mg tablet Azithromycin (Zithromax) 250 mg tablet 05/04/2019 01:58:56 PM EDT 250 MG completed [facility] Azithromycin 250 MG Oral Tablet Azithromycin (Zithroma x) 250 mg tablet Azithromycin (Zithromax) 250 mg tablet 05/04/2019 01:58:56 PM EDT 250 MG completed [facility] Azithromycin 250 MG Oral Tablet Azithromycin 05/04/2019 01:58:56 PM EDT 250 MG completed [facility] Azithromycin 250 MG Oral Tablet Azithromycin 05/04/2019 01:58:56 PM EDT 250 MG completed [facility] Azithromycin 250 MG Oral Tablet Azithromycin (Zithroma x) 250 mg tablet Azithromycin (Zithromax) 250 mg tablet 05/04/2019 01:58:56 PM EDT 250 MG completed [facility] Azithromycin 250 MG Oral Tablet Azithromycin 05/04/2019 01:58:56 PM EDT 250 MG completed [facility] Azithromycin 250 MG Oral Tablet Azithromycin (Zithroma x) 250 mg tablet Azithromycin (Zithromax) 250 mg tablet 05/04/2019 01:58:56 PM EDT 250 MG completed [facility] 300 mg 05/04/2019 12:00:00 AM EDT capsule 60 TAKE TWO CAPSULES BY MOUTH EVERY DAY TAKE TWO CAPSULES BY MOUTH EVERY DAY SOLD: 07/05/2019 [facility] 300 mg 05/04/2019 12:00:00 AM EDT capsule 60 TAKE TWO CAPSULES BY MOUTH EVERY DAY TAKE TWO CAPSULES BY MOUTH EVERY DAY SOLD: 08/05/2019 [facility] 50 mg 05/04/2019 12:00:00 AM EDT tablet 30 TAKE ONE TABLET BY MOUTH EVERY DAY TAKE ONE TABLET BY MOUTH EVERY DAY SOLD: 06/03/2019 [facility] 300 mg 05/04/2019 12:00:00 AM EDT capsule 60 TAKE TWO CAPSULES BY MOUTH EVERY DAY TAKE TWO CAPSULES BY MOUTH EVERY DAY SOLD: 10/03/2019 [facility] 300 mg 05/04/2019 12:00:00 AM EDT capsule 60 TAKE TWO CAPSULES BY MOUTH EVERY DAY TAKE TWO CAPSULES BY MOUTH EVERY DAY SOLD: 09/04/2019 [facility] 300 mg 05/04/2019 12:00:00 AM EDT capsule 60 TAKE TWO CAPSULES BY MOUTH EVERY DAY TAKE TWO CAPSULES BY MOUTH EVERY DAY SOLD: 2019 [facility] 50 mg 05/04/2019 12:00:00 AM EDT tablet 30 TAKE ONE TABLET BY MOUTH EVERY DAY TAKE ONE TABLET BY MOUTH EVERY DAY SOLD: 07/03/2019 [facility] 400 mg 05/01/2019 12:00:00 AM EDT tablet 120 TAKE FOUR TABLETS BY MOUTH EVERY DAY TAKE FOUR TABLETS BY MOUTH EVERY DAY SOLD: 10/03/2019 [facility] 400 mg 05/01/2019 12:00:00 AM EDT tablet 108 TAKE FOUR TABLETS BY MOUTH EVERY DAY TAKE FOUR TABLETS BY MOUTH EVERY DAY SOLD: 2019 [facility] 400 mg 05/01/2019 12:00:00 AM EDT tablet 120 TAKE FOUR TABLETS BY MOUTH EVERY DAY TAKE FOUR TABLETS BY MOUTH EVERY DAY SOLD: 08/05/2019 [facility] 400 mg 05/01/2019 12:00:00 AM EDT tablet 120 TAKE FOUR TABLETS BY MOUTH EVERY DAY TAKE FOUR TABLETS BY MOUTH EVERY DAY SOLD: 07/05/2019 [facility] 400 mg 05/01/2019 12:00:00 AM EDT tablet 120 TAKE FOUR TABLETS BY MOUTH EVERY DAY TAKE FOUR TABLETS BY MOUTH EVERY DAY SOLD: 09/02/2019 [facility] 3 ML Insulin Lispro 100 UNT/ML Pen Injec tor Insulin Lispro (Humalog Kwikpen Insulin) 100 unit/mL insulin pen Insulin Lispro (Humalog Kwikpen Insulin) 100 unit/mL insulin pen 04/13/2019 03:27:53 PM EDT 1 UNIT co mpleted 3 ML Insulin Lispro 100 UNT/ML Pen Injec tor Insulin Lispro (Humalog Kwikpen Insulin) 100 unit/mL insulin pen Insulin Lispro (Humalog Kwikpen Insulin) 100 unit/mL insulin pen 04/13/2019 03:27:53 PM EDT 1 UNIT co mpleted 3 ML Insulin Lispro 100 UNT/ML Pen Injector Insulin Lispro 04/13/2019 03:27:53 PM EDT 1 UNIT completed [facility] 3 ML Insulin Lispro 100 UNT/ML Pen Injec tor Insulin Lispro (Humalog Kwikpen Insulin) 100 unit/mL insulin pen Insulin Lispro (Humalog Kwikpen Insulin) 100 unit/mL insulin pen 04/13/2019 03:27:53 PM EDT 1 UNIT co mpleted 3 ML Insulin Lispro 100 UNT/ML Pen Injec tor Insulin Lispro (Humalog Kwikpen Insulin) 100 unit/mL insulin pen Insulin Lispro (Humalog Kwikpen Insulin) 100 unit/mL insulin pen 04/13/2019 03:27:53 PM EDT 1 UNIT co mpleted 3 ML Insulin Lispro 100 UNT/ML Pen Injector Insulin Lispro 04/13/2019 03:27:53 PM EDT 1 UNIT completed [facility] 3 ML Insulin Lispro 100 UNT/ML Pen Injec tor Insulin Lispro (Humalog Kwikpen Insulin) 100 unit/mL insulin pen Insulin Lispro (Humalog Kwikpen Insulin) 100 unit/mL insulin pen 04/13/2019 03:27:53 PM EDT 1 UNIT co [facility] 3 ML Insulin Lispro 100 UNT/ML Pen Injec tor Insulin Lispro (Humalog Kwikpen Insulin) 100 unit/mL insulin pen Insulin Lispro (Humalog Kwikpen Insulin) 100 unit/mL insulin pen 04/13/2019 03:27:53 PM EDT 1 UNIT co [facility] 0.5 mg/2 mL 03/20/2019 12:00:00 AM EDT suspension for nebuli zation 120 INHALE 1 VIAL VIA NEBULIZER TWO TIMES A DAY INHALE 1 VIAL VIA NEBULIZER TWO TIMES A DAY SOLD: 07/19/2019 [facility] 0.5 mg/2 mL 03/20/2019 12:00:00 AM EDT suspension for nebuli zation 120 INHALE 1 VIAL VIA NEBULIZER TWO TIMES A DAY INHALE 1 VIAL VIA NEBULIZER TWO TIMES A DAY SOLD: 06/18/2019 [facility] 0.5 mg/2 mL 03/20/2019 12:00:00 AM EDT suspension for nebuli zation 120 INHALE 1 VIAL VIA NEBULIZER TWO TIMES A DAY INHALE 1 VIAL VIA NEBULIZER TWO TIMES A DAY SOLD: 08/16/2019 [facility] 62.5 mcg/actuation 03/08/2019 12:00:00 AM EDT blister with d evice 30 INHALE ONE PUFF BY MOUTH EVERY DAY INHALE ONE PUFF BY MOUTH EVERY DAY SOLD: 05/31/2019 [facility] 62.5 mcg/actuation 03/08/2019 12:00:00 AM EDT blister with d evice 30 INHALE ONE PUFF BY MOUTH EVERY DAY INHALE ONE PUFF BY MOUTH EVERY DAY SOLD: 07/28/2019 [facility] 62.5 mcg/actuation 03/08/2019 12:00:00 AM EDT blister with d evice 30 INHALE ONE PUFF BY MOUTH EVERY DAY INHALE ONE PUFF BY MOUTH EVERY DAY SOLD: 06/29/2019 [facility] 10 mg 02/06/2019 12:00:00 AM EDT tablet 30 TAKE ONE TABLET BY MOUTH AT BEDTIME TAKE ONE TABLET BY MOUTH AT BEDTIME SOLD: 05/31/2019 [facility] montelukast 10 MG Oral Tablet MONTELUKAST SODIUM 02/06/2019 12:0 0:00 AM EDT tablet 30 TAKE ONE TABLET BY MOUTH AT BEDT CINTHIA TAKE ONE TABLET BY MOUTH AT BEDTIME SOLD: 06/29/2019 [facility] 81 mg 02/05/2019 12:00:00 AM EDT tablet,delayed release (DR/EC) 30 TAKE ONE TABLET BY MOUTH EVERY DAY TAKE ONE TABLET BY MOUTH EVERY DAY SOLD: 06/29/2019 [facility] 81 mg 02/05/2019 12:00:00 AM EDT tablet,delayed release (DR/EC) 30 TAKE ONE TABLET BY MOUTH EVERY DAY TAKE ONE TABLET BY MOUTH EVERY DAY SOLD: 05/31/2019 [facility] 40 mg 01/31/2019 12:00:00 AM EDT capsule,delayed release (DR/EC) 60 TAKE ONE CAPSULE BY MOUTH TWICE A DAY FOR GASTROPARESIS, REFRACTORY REFLUX, ASPIRATION SYNDROME. MAXIMUM DAILY DOSE = 2 CAPSULES TAKE ONE CAPSULE BY MOUTH TWICE A DAY FOR GASTROPARESIS, REFRACTORY REFLUX, ASPIRATION SYNDROME. MAXIMUM DAILY DOSE = 2 CAPSULES SOLD: 05/31/2019 [facility] 40 mg 01/31/2019 12:00:00 AM EDT capsule,delayed release (DR/EC) 60 TAKE ONE CAPSULE BY MOUTH TWICE A DAY FOR GASTROPARESIS, REFRACTORY REFLUX, ASPIRATION SYNDROME. MAXIMUM DAILY DOSE = 2 CAPSULES TAKE ONE CAPSULE BY MOUTH TWICE A DAY FOR GASTROPARESIS, REFRACTORY REFLUX, ASPIRATION SYNDROME. MAXIMUM DAILY DOSE = 2 CAPSULES SOLD: 06/29/2019 [facility] Blood Sugar Diagnostic 01/26/2019 05:37:57 PM EDT completed Blood Sugar Diagnostic (Onetouch Verio Test Strips) strip 01/26/2019 05:37:57 PM EDT completed [facility] Blood Sugar Diagnostic 01/26/2019 05:37:57 PM EDT completed Blood Sugar Diagnostic 01/26/2019 05:37:57 PM EDT completed Blood Sugar Diagnostic (Onetouch Verio Test Strips) strip 01/26/2019 05:37:57 PM EDT completed [facility] Blood Sugar Diagnostic (Onetouch Verio Test Strips) strip 01/26/2019 05:37:57 PM EDT completed [facility] Blood Sugar Diagnostic (Onetouch Verio Test Strips) strip 01/26/2019 05:37:57 PM EDT completed [facility] Blood Sugar Diagnostic (Onetouch Verio Test Strips) strip 01/26/2019 05:37:57 PM EDT completed [facility] Blood Sugar Diagnostic 01/26/2019 05:37:57 PM EDT completed Blood Sugar Diagnostic (Onetouch Verio Test Strips) strip 01/26/2019 05:37:57 PM EDT completed [facility] 40 mg 01/26/2019 12:00:00 AM EDT tablet 30 TAKE ONE TABLET BY MOUTH EVERY DAY TAKE ONE TABLET BY MOUTH EVERY DAY SOLD: 06/24/2019 [facility] Insulin Glargine Insulin Glargine 01/19/2019 01:29:26 PM EDT 60 UNIT completed [facility] Insulin Glargine Insulin Glargine (Basag lar Kwikpen U-100 Insulin) 100 unit/mL (3 mL) insulin pen Insulin Glargine (Basaglar Kwikpen U-100 Insulin) 100 unit/mL (3 mL) insulin pen 01/19/2019 01:29:26 PM EDT 60 UNIT c ompleted Insulin Glargine Insulin Glargine (Basag lar Kwikpen U-100 Insulin) 100 unit/mL (3 mL) insulin pen Insulin Glargine (Basaglar Kwikpen U-100 Insulin) 100 unit/mL (3 mL) insulin pen 01/19/2019 01:29:26 PM EDT 60 UNIT c ompleted Insulin Glargine Insulin Glargine (Basag lar Kwikpen U-100 Insulin) 100 unit/mL (3 mL) insulin pen Insulin Glargine (Basaglar Kwikpen U-100 Insulin) 100 unit/mL (3 mL) insulin pen 01/19/2019 01:29:26 PM [facility] Insulin Glargine (Basag lar Kwikpen U-100 Insulin) 100 unit/mL (3 mL) insulin pen Insulin Glargine (Basaglar Kwikpen U-100 Insulin) 100 unit/mL (3 mL) insulin pen 01/19/2019 01:29:26 PM [facility] Insulin Glargine 01/19/2019 01:29:26 PM EDT 60 UNIT completed [facility] Insulin Glargine Insulin Glargine (Basag lar Kwikpen U-100 Insulin) 100 unit/mL (3 mL) insulin pen Insulin Glargine (Basaglar Kwikpen U-100 Insulin) 100 unit/mL (3 mL) insulin pen 01/19/2019 01:29:26 PM EDT 60 UNIT c ompleted Insulin Glargine Insulin Glargine (Basag lar Kwikpen U-100 Insulin) 100 unit/mL (3 mL) insulin pen Insulin Glargine (Basaglar Kwikpen U-100 Insulin) 100 unit/mL (3 mL) insulin pen 01/19/2019 01:29:26 PM EDT [facility] MG Delayed Release Oral Capsule Esomep razole Magnesium Esomeprazole Magnesium 01/19/2019 01:25:55 PM EDT 40 MG completed Esomeprazole 40 MG Delayed Release Oral Capsule Esomeprazole Magnesium (Nexium) 40 mg capsule,delayed release(DR/EC) Esomeprazole Magnesium (Nexium) 40 mg capsule,delayed release(DR/EC) 01/19/2019 01:25:55 PM EDT 40 MG completed [facility] Esomeprazole 40 MG Delayed Release Oral Capsule Esomeprazole Magnesium (Nexium) 40 mg capsule,delayed release(DR/EC) Esomeprazole Magnesium (Nexium) 40 mg capsule,delayed release(DR/EC) 01/19/2019 01:25:55 PM EDT 40 MG completed [facility] Esomeprazole 40 MG Delayed Release Oral Capsule Esomep razole Magnesium Esomeprazole Magnesium 01/19/2019 01:25:55 PM EDT 40 MG completed Esomeprazole 40 MG Delayed Release Oral Capsule Esomeprazole Magnesium (Nexium) 40 mg capsule,delayed release(DR/EC) Esomeprazole Magnesium (Nexium) 40 mg capsule,delayed release(DR/EC) 01/19/2019 01:25:55 PM EDT 40 MG completed [facility] Esomeprazole 40 MG Delayed Release Oral Capsule Esomeprazole Magnesium (Nexium) 40 mg capsule,delayed release(DR/EC) Esomeprazole Magnesium (Nexium) 40 mg capsule,delayed release(DR/EC) 01/19/2019 01:25:55 PM EDT 40 MG completed [facility] Esomeprazole 40 MG Delayed Release Oral Capsule Esomeprazole Magnesium (Nexium) 40 mg capsule,delayed release(DR/EC) Esomeprazole Magnesium (Nexium) 40 mg capsule,delayed release(DR/EC) 01/19/2019 01:25:55 PM EDT 40 MG completed [facility] Esomeprazole 40 MG Delayed Release Oral Capsule Esomep razole Magnesium Esomeprazole Magnesium 01/19/2019 01:25:55 PM EDT 40 MG completed Esomeprazole 40 MG Delayed Release Oral Capsule Esomep razole Magnesium Esomeprazole Magnesium 01/19/2019 01:25:55 PM EDT 40 MG completed Esomeprazole 40 MG Delayed Release Oral Capsule Esomeprazole Magnesium (Nexium) 40 mg capsule,delayed release(DR/EC) Esomeprazole Magnesium (Nexium) 40 mg capsule,delayed release(DR/EC) 01/19/2019 01:25:55 PM EDT 40 MG completed [facility] 2.5 mg 01/14/2019 12:00:00 AM EDT tablet 30 TAKE ONE TABLET BY MOUTH EVERY DAY, TAKE THE MORNING OF SURGERY WITH SMALL SIP OF WATER TAKE ONE TABLET BY MOUTH EVERY DAY, TAKE THE MORNING OF SURGERY WITH SMALL SIP OF WATER SOLD: 06/18/2019 [facility] 1,250 mcg (50,000 unit) 01/14/2019 12:00:00 AM EDT capsule 4 TAKE ONE CAPSULE BY MOUTH ONCE A WEEK ON TUESDAY FOR LOW VITAMIN D. TAKE ONE CAPSULE BY MOUTH ONCE A WEEK ON TUESDAY FOR LOW VITAMIN D. SOLD: 06/18/2019 [facility] 150 mg 01/14/2019 12:00:00 AM EDT tablet 60 TAKE TWO TABLETS BY MOUTH AT BEDTIME FOR GERD TAKE TWO TABLETS BY MOUTH AT BEDTIME FOR GERD SOLD: 06/18/20 19 [facility] Ranitidine 150 MG Oral Tablet Ranitidine Hcl Ranitidine Hcl 01/13/2019 10:00:04 PM EDT 300 MG completed [facility] Ranitidine 150 MG Oral Tablet Ranitidine Hcl Ranitidine Hcl 01/13/2019 10:00:04 PM EDT 300 MG completed [facility] Ranitidine 150 MG Oral Tablet Ranitidine Hcl Ranitidine Hcl 01/13/2019 10:00:04 PM EDT 300 MG completed [facility] Ranitidine 150 MG Oral Tablet Ranitidine Hcl Ranitidine Hcl 01/13/2019 10:00:04 PM EDT 300 MG completed [facility] Ranitidine 150 MG Oral Tablet Ranitidine Hcl Ranitidine Hcl 01/13/2019 10:00:04 PM EDT 300 MG completed [facility] Ranitidine 150 MG Oral Tablet Ranitidine Hcl Ranitidine Hcl 01/13/2019 10:00:04 PM EDT 300 MG completed [facility] Ranitidine 150 MG Oral Tablet Ranitidine Hcl Ranitidine Hcl 01/13/2019 10:00:04 PM EDT 300 MG completed [facility] Ranitidine 150 MG Oral Tablet Ranitidine Hcl Ranitidine Hcl 01/13/2019 10:00:04 PM EDT 300 MG completed [facility] Ranitidine 150 MG Oral Tablet Ranitidine Hcl Ranitidine Hcl 01/13/2019 10:00:04 PM EDT 300 MG completed [facility] Ranitidine 150 MG Oral Tablet Ranitidine Hcl Ranitidine Hcl 01/13/2019 10:00:04 PM EDT 300 MG completed [facility] Ergocalciferol 61973 UNT Oral Capsule Er gocalciferol (Vitamin D2) (Vitamin D2) 50,000 unit capsule Ergocalciferol (Vitamin D2) (Vitamin D2) 50,000 unit capsule 01/13/2019 09:56:37 PM EDT 63117 UNIT completed Ergocalciferol 72611 UNT Oral Capsule Er gocalciferol (Vitamin D2) (Vitamin D2) 50,000 unit capsule Ergocalciferol (Vitamin D2) (Vitamin D2) 50,000 unit capsule 01/13/2019 09:56:37 PM EDT 51895 UNIT completed Ergocalciferol 42911 UNT Oral Capsule Er gocalciferol (Vitamin D2) (Vitamin D2) 50,000 unit capsule Ergocalciferol (Vitamin D2) (Vitamin D2) 50,000 unit capsule 01/13/2019 09:56:37 PM EDT 18360 UNIT completed Ergocalciferol 73730 UNT Oral Capsule Ergocalciferol ( Vitamin D2) Ergocalciferol (Vitamin D2) 01/13/2019 09:56:37 PM EDT [address] [facility] Ergocalciferol 89767 UNT Oral Capsule Ergocalciferol ( Vitamin D2) Ergocalciferol (Vitamin D2) 01/13/2019 09:56:37 PM EDT [address] [facility] Ergocalciferol 18653 UNT Oral Capsule Er gocalciferol (Vitamin D2) (Vitamin D2) 50,000 unit capsule Ergocalciferol (Vitamin D2) (Vitamin D2) 50,000 unit capsule 01/13/2019 09:56:37 PM EDT 45937 UNIT completed Ergocalciferol 68402 UNT Oral Capsule Ergocalciferol ( Vitamin D2) Ergocalciferol (Vitamin D2) 01/13/2019 09:56:37 PM EDT [address] [facility] Ergocalciferol 18554 UNT Oral Capsule Er gocalciferol (Vitamin D2) (Vitamin D2) 50,000 unit capsule Ergocalciferol (Vitamin D2) (Vitamin D2) 50,000 unit capsule 01/13/2019 09:56:37 PM EDT 70067 UNIT completed Ergocalciferol 79015 UNT Oral Capsule Er gocalciferol (Vitamin D2) (Vitamin D2) 50,000 unit capsule Ergocalciferol (Vitamin D2) (Vitamin D2) 50,000 unit capsule 01/13/2019 09:56:37 PM EDT 97348 UNIT completed Ergocalciferol 18560 UNT Oral Capsule Ergocalciferol ( Vitamin D2) Ergocalciferol (Vitamin D2) 01/13/2019 09:56:37 PM EDT 70447 UNIT comp [facility] 60 mg 01/07/2019 12:00:00 AM EDT tablet 120 TAKE ONE TABLET BY MOUTH FOUR TIMES A DAY TAKE ONE TABLET BY MOUTH FOUR TIMES A DAY SOLD: 05/31/2019 [facility] 60 mg 01/07/2019 12:00:00 AM EDT tablet 120 TAKE ONE TABLET BY MOUTH FOUR TIMES A DAY TAKE ONE TABLET BY MOUTH FOUR TIMES A DAY SOLD: 06/29/2019 [facility] 60 mg 01/07/2019 12:00:00 AM EDT tablet 120 TAKE ONE TABLET BY MOUTH FOUR TIMES A DAY TAKE ONE TABLET BY MOUTH FOUR TIMES A DAY SOLD: 08/26/2019 [facility] 60 mg 01/07/2019 12:00:00 AM EDT tablet 120 TAKE ONE TABLET BY MOUTH FOUR TIMES A DAY TAKE ONE TABLET BY MOUTH FOUR TIMES A DAY SOLD: 07/28/2019 [facility] ropinirole 1 MG Oral Tablet Ropinirole Ropinirole 12/26/2018 07:2 8:25 PM EDT 1 MG completed [facility] fluticasone furoate 0.2 MG/ACTUAT / kyra nterol 0.025 MG/ACTUAT Dry Powder Inhaler Fluticasone Furoate-Vilanterol (Breo Ellipta) 1 EACH blister with device Fluticasone Furoate-Vilanterol (Breo Ellipta) 1 EACH b cesar with device 12/26/2018 07:28:25 PM EDT 1 EACH completed [facility] ([facility] Lancets) 33 gauge misc 2018 07:28:25 PM EDT completed [facility] fluticasone furoate 0.2 MG/ACTUAT / kyra nterol 0.025 MG/ACTUAT Dry Powder Inhaler Fluticasone Furoate-Vilanterol Fluticasone Furoate-Vilanterol 12/26/2018 07:28:25 PM EDT 1 EACH completed [facility] 12/26/2018 07:28:25 PM EDT completed ropinirole 1 MG Oral Tablet Ropinirole Ropinirole 12/26/2018 07:2 8:25 PM EDT 1 MG completed [facility] atorvastatin 40 MG Oral Tablet Atorvastatin Atorvastatin 12/26/2018 07:28:25 PM EDT 40 MG completed [facility] Alprazolam 0.25 MG Oral Tablet [Xanax] Alprazolam (Nir ax) 0.25 MG tablet Alprazolam (Xanax) 0.25 MG tablet 12/26/2018 07:28:25 PM EDT 0.25 MG completed [facility] ropinirole 1 MG Oral Tablet Ropinirole Ropinirole 12/26/2018 07:2 8:25 PM EDT 1 MG completed [facility] Loratadine 10 MG Oral Tablet Loratadine 12/26/2018 07:28:25 PM EDT 10 MG completed [facility] montelukast 10 MG Oral Tablet Montelukast Montelukast 12/26/2018 07:28:25 PM EDT 10 MG completed [facility] Enalapril Maleate 2.5 MG Oral Tablet Enalapril Maleate 07:28:25 PM EDT 2.5 MG completed [facility] Loratadine 10 MG Oral Tablet Loratadine 12/26/2018 07:28:25 PM EDT 10 MG completed [facility] Loratadine 10 MG Oral Tablet Loratadine 12/26/2018 07:28:25 PM EDT 10 MG completed [facility] fluticasone furoate 0.2 MG/ACTUAT / kyra nterol 0.025 MG/ACTUAT Dry Powder Inhaler Fluticasone Furoate-Vilanterol (Breo Ellipta) 1 EACH blister with device Fluticasone Furoate-Vilanterol (Breo Ellipta) 1 EACH b cesar with device 12/26/2018 07:28:25 PM EDT 1 EACH completed [facility] ([facility]) 33 gauge misc 2018 07:28:25 PM EDT completed [facility] ropinirole 1 MG Oral Tablet Ropinirole Ropinirole 12/26/2018 07:2 8:25 PM EDT 1 MG completed [facility] Lancets 12/26/2018 07:28:25 PM EDT completed fluticasone furoate 0.2 MG/ACTUAT / kyra nterol 0.025 MG/ACTUAT Dry Powder Inhaler Fluticasone Furoate-Vilanterol Fluticasone Furoate-Vilanterol 12/26/2018 07:28:25 PM EDT 1 EACH completed Alprazolam 0.25 MG Oral Tablet [Xanax] Alprazolam (Nir ax) 0.25 MG tablet Alprazolam (Xanax) 0.25 MG tablet 12/26/2018 07:28:25 PM EDT 0.25 MG completed [facility] Alprazolam 0.25 MG Oral Tablet [Xanax] Alprazolam (Nir ax) 0.25 MG tablet Alprazolam (Xanax) 0.25 MG tablet 12/26/2018 07:28:25 PM EDT 0.25 MG completed [facility] Lancets ([facility] Lancets) [address] [facility] 2018 07:28:25 PM EDT completed [facility] Lancets ([facility] [address] [place] [address] 2018 07:28:25 PM EDT completed [facility] atorvastatin 40 MG Oral Tablet Atorvastatin Atorvastatin 12/26/2018 07:28:25 PM EDT 40 MG completed [facility] Loratadine 10 MG Oral Tablet Loratadine 12/26/2018 07:28:25 PM EDT 10 MG completed [facility] Enalapril Maleate 2.5 MG Oral Tablet Enalapril Maleate 07:28:25 PM EDT 2.5 MG completed [facility] montelukast 10 MG Oral Tablet Montelukast Montelukast 12/26/2018 07:28:25 PM EDT 10 MG completed [facility] ropinirole 1 MG Oral Tablet Ropinirole Ropinirole 12/26/2018 07:2 8:25 PM EDT 1 MG completed [facility] atorvastatin 40 MG Oral Tablet Atorvastatin Atorvastatin 12/26/2018 07:28:25 PM EDT 40 MG completed [facility] fluticasone furoate 0.2 MG/ACTUAT / kyra nterol 0.025 MG/ACTUAT Dry Powder Inhaler Fluticasone Furoate-Vilanterol (Breo Ellipta) 1 EACH blister with device Fluticasone Furoate-Vilanterol (Breo Ellipta) 1 EACH b cesar with device 12/26/2018 07:28:25 PM EDT 1 EACH completed montelukast 10 MG Oral Tablet Montelukast Montelukast 12/26/2018 07:28:25 PM EDT 10 MG completed [facility] Loratadine 10 MG Oral Tablet Loratadine 12/26/2018 07:28:25 PM EDT 10 MG completed [facility] montelukast 10 MG Oral Tablet Montelukast Montelukast 12/26/2018 07:28:25 PM EDT 10 MG completed [facility] Enalapril Maleate 2.5 MG Oral Tablet Enalapril Maleate 07:28:25 PM EDT 2.5 MG completed [facility] Loratadine 10 MG Oral Tablet Loratadine 12/26/2018 07:28:25 PM EDT 10 MG completed [facility] ropinirole 1 MG Oral Tablet Ropinirole Ropinirole 12/26/2018 07:2 8:25 PM EDT 1 MG completed [facility] Enalapril Maleate 2.5 MG Oral Tablet Enalapril Maleate 07:28:25 PM EDT 2.5 MG completed [facility] fluticasone furoate 0.2 MG/ACTUAT / kyra nterol 0.025 MG/ACTUAT Dry Powder Inhaler Fluticasone Furoate-Vilanterol (Breo Ellipta) 1 EACH blister with device Fluticasone Furoate-Vilanterol (Breo Ellipta) 1 EACH b cesar with device 12/26/2018 07:28:25 PM EDT 1 EACH completed Enalapril Maleate 2.5 MG Oral Tablet Enalapril Maleate 07:28:25 PM EDT 2.5 MG completed [facility] Loratadine 10 MG Oral Tablet Loratadine 12/26/2018 07:28:25 PM EDT 10 MG completed [facility] montelukast 10 MG Oral Tablet Montelukast Montelukast 12/26/2018 07:28:25 PM EDT 10 MG completed [facility] Lancets ([facility] Lancets) 33 gauge misc 2018 07:28:25 PM EDT completed [facility] atorvastatin 40 MG Oral Tablet Atorvastatin Atorvastatin 12/26/2018 07:28:25 PM EDT 40 MG completed [facility] montelukast 10 MG Oral Tablet Montelukast Montelukast 12/26/2018 07:28:25 PM EDT 10 MG completed [facility] Lancets 12/26/2018 07:28:25 PM EDT completed ropinirole 1 MG Oral Tablet Ropinirole Ropinirole 12/26/2018 07:2 8:25 PM EDT 1 MG completed [facility] Alprazolam 0.25 MG Oral Tablet [Xanax] Alprazolam 12/26/2018 07:2 8:25 PM EDT 0.25 MG completed [facility] ropinirole 1 MG Oral Tablet Ropinirole Ropinirole 12/26/2018 07:2 8:25 PM EDT 1 MG completed [facility] Enalapril Maleate 2.5 MG Oral Tablet Enalapril Maleate 07:28:25 PM EDT 2.5 MG completed [facility] Loratadine 10 MG Oral Tablet Loratadine 12/26/2018 07:28:25 PM EDT 10 MG completed [facility] fluticasone furoate 0.2 MG/ACTUAT / kyra nterol 0.025 MG/ACTUAT Dry Powder Inhaler Fluticasone Furoate-Vilanterol (Breo Ellipta) 1 EACH blister with device Fluticasone Furoate-Vilanterol (Breo Ellipta) 1 EACH b cesar with device 12/26/2018 07:28:25 PM EDT 1 EACH completed Alprazolam 0.25 MG Oral Tablet [Xanax] Alprazolam (Nir ax) 0.25 MG tablet Alprazolam (Xanax) 0.25 MG tablet 12/26/2018 07:28:25 PM EDT 0.25 MG completed [facility] Alprazolam 0.25 MG Oral Tablet [Xanax] Alprazolam 12/26/2018 07:2 8:25 PM EDT 0.25 MG completed [facility] Enalapril Maleate 2.5 MG Oral Tablet Enalapril Maleate 07:28:25 PM EDT 2.5 MG completed [facility] Enalapril Maleate 2.5 MG Oral Tablet Enalapril Maleate 07:28:25 PM EDT 2.5 MG completed [facility] Lancets 12/26/2018 07:28:25 PM EDT completed montelukast 10 MG Oral Tablet Montelukast Montelukast 12/26/2018 07:28:25 PM EDT 10 MG completed [facility] atorvastatin 40 MG Oral Tablet Atorvastatin Atorvastatin 12/26/2018 07:28:25 PM EDT 40 MG completed [facility] fluticasone furoate 0.2 MG/ACTUAT / kyra nterol 0.025 MG/ACTUAT Dry Powder Inhaler Fluticasone Furoate-Vilanterol (Breo Ellipta) 1 EACH blister with device Fluticasone Furoate-Vilanterol (Breo Ellipta) 1 EACH b cesar with device 12/26/2018 07:28:25 PM EDT 1 EACH completed atorvastatin 40 MG Oral Tablet Atorvastatin Atorvastatin 12/26/2018 07:28:25 PM EDT 40 MG completed [facility] ropinirole 1 MG Oral Tablet Ropinirole Ropinirole 12/26/2018 07:2 8:25 PM EDT 1 MG completed [facility] atorvastatin 40 MG Oral Tablet Atorvastatin Atorvastatin 12/26/2018 07:28:25 PM EDT 40 MG completed [facility] fluticasone furoate 0.2 MG/ACTUAT / kyra nterol 0.025 MG/ACTUAT Dry Powder Inhaler Fluticasone Furoate-Vilanterol Fluticasone Furoate-Vilanterol 12/26/2018 07:28:25 PM EDT 1 EACH completed Enalapril Maleate 2.5 MG Oral Tablet Enalapril Maleate 07:28:25 PM EDT 2.5 MG completed [facility] Lancets ([facility] Lancets) 33 gauge misc 2018 07:28:25 PM EDT completed [facility] atorvastatin 40 MG Oral Tablet Atorvastatin Atorvastatin 12/26/2018 07:28:25 PM EDT 40 MG completed [facility] Alprazolam 0.25 MG Oral Tablet [Xanax] Alprazolam (Nir ax) 0.25 MG tablet Alprazolam (Xanax) 0.25 MG tablet 12/26/2018 07:28:25 PM EDT 0.25 MG completed [facility] Alprazolam 0.25 MG Oral Tablet [Xanax] Alprazolam (Nir ax) 0.25 MG tablet Alprazolam (Xanax) 0.25 MG tablet 12/26/2018 07:28:25 PM EDT 0.25 MG completed [facility] montelukast 10 MG Oral Tablet Montelukast Montelukast 12/26/2018 07:28:25 PM EDT 10 MG completed [facility] Enalapril Maleate 2.5 MG Oral Tablet Enalapril Maleate 07:28:25 PM EDT 2.5 MG completed [facility] 0.5 mg-3 mg(2.5 mg base)/3 mL 11/14/2018 12:00:0 0 AM EDT solution for nebulization 360 USE 1 VIAL VIA NEBULIZER FOUR TI MES A DAY USE 1 VIAL VIA NEBULIZER FOUR TIMES A DAY SOLD: 06/01/2019 [facility] gabapentin 300 MG Oral Capsule Gabapentin Gabapentin 2018 11:21:35 PM EDT 300 MG completed gabapentin 300 MG Oral Capsule Gabapentin Gabapentin 2018 11:21:35 PM EDT 300 MG completed gabapentin 300 MG Oral Capsule Gabapentin Gabapentin 2018 11:21:35 PM EDT 300 MG completed gabapentin 300 MG Oral Capsule Gabapentin Gabapentin 2018 11:21:35 PM EDT 300 MG completed gabapentin 300 MG Oral Capsule Gabapentin Gabapentin 2018 11:21:35 PM EDT 300 MG completed gabapentin 300 MG Oral Capsule Gabapentin Gabapentin 2018 11:21:35 PM EDT 300 MG completed gabapentin 300 MG Oral Capsule Gabapentin Gabapentin 2018 11:21:35 PM EDT 300 MG completed gabapentin 300 MG Oral Capsule Gabapentin Gabapentin 2018 11:21:35 PM EDT 300 MG completed gabapentin 300 MG Oral Capsule Gabapentin Gabapentin 2018 11:21:35 PM EDT 300 MG completed gabapentin 300 MG Oral Capsule Gabapentin Gabapentin 2018 11:21:35 PM EDT 300 MG completed 10 mg 11/05/2018 12:00:00 AM EDT tablet 30 TAKE ONE TABLET BY MOUTH EVERY DAY TAKE ONE TABLET BY MOUTH EVERY DAY SOLD: 06/24/2019 [facility] Epinephrine Epinephrine 06/27/2017 03:59:00 PM EST 0.3 MG completed Epinephrine Epinephrine 06/27/2017 03:59:00 PM EST 0.3 MG completed Epinephrine Epinephrine (Epipen) 0.3 MG/0.3 ML auto-in jector Epinephrine (Epipen) 0.3 MG/0.3 ML auto-injector 06/27/2017 03:59:00 PM EST 0.3 MG completed [facility] Epinephrine Epinephrine (Epipen) 0.3 MG/0.3 ML auto-in jector Epinephrine (Epipen) 0.3 MG/0.3 ML auto-injector 06/27/2017 03:59:00 PM EST 0.3 MG completed [facility] Epinephrine Epinephrine (Epipen) 0.3 MG/0.3 ML auto-in jector Epinephrine (Epipen) 0.3 MG/0.3 ML auto-injector 06/27/2017 03:59:00 PM EST 0.3 MG completed [facility] Epinephrine Epinephrine (Epipen) 0.3 MG/0.3 ML auto-in jector Epinephrine (Epipen) 0.3 MG/0.3 ML auto-injector 06/27/2017 03:59:00 PM EST 0.3 MG completed [facility] Epinephrine Epinephrine (Epipen) 0.3 MG/0.3 ML auto-in jector Epinephrine (Epipen) 0.3 MG/0.3 ML auto-injector 06/27/2017 03:59:00 PM EST 0.3 MG completed [facility] Epinephrine Epinephrine (Epipen) 0.3 MG/0.3 ML auto-in jector Epinephrine (Epipen) 0.3 MG/0.3 ML auto-injector 06/27/2017 03:59:00 PM EST 0.3 MG completed [facility] Insurance Providers Payer name Policy type / Coverage type Policy ID Covered democrat ID Covered democrat's relationship to collier Policy Collier Plan Information [employer] COMMUNITY PLAN MCDHMO [id number] SP [id number] [facility] [id number] 0 [id number] [employer] COMMUNITY PLAN XIX [id number] 18 [id number] [facility]) O [id number] S [id number] [employer] COMMUNITY PLAN MCDHMO [id number] SP [id number] [employer] COMMUNITY PLAN MCDHMO [id number] SP [id number] [employer] COMMUNITY PLAN MCDHMO [id number] SP [id number] [facility] MEDICAID [id number] Self [id number] [place] Med[place] Part B [id number] Self [id number] Health Maintenance Organization (HMO) [id number] Self [id number] [facility] Medigap Part B [id number] Self [id number] [facility] COMMUNITY [id number] Patient [id number] [facility] COMMUNITY UNAVAILABLE Patient UNAV AILABLE MEDICAID [id number] Patient [id number] [facility] [address] [id number] Preferred Provider Organization (PPO) [id number] [facility] [address] [id number] Preferred Provider Organization (PPO) [id number] [facility] Other 0 Self 0 [place] Medig[place] Part [place] [id number] Self [id number] Health Maintenance Organization (HMO) [id number] Self [id number] [facility] COMMUNITY PLAN [id number] 0 [id number] [place] [id number] Self [id number] Health Maintenance Organization (HMO) [id number] Self [id number] [facility] COMMUNITY PLAN [id number] 0 [id number] [facility] MEDICAID PI PI [facility] MEDICAID [id number] Radha [id number] MEDICAID [id number] Radha [id number] [place] [id number] Self [id number] [facility] Health Maintenance Organization (HMO) [id number] Self [id number] [facility] Medigap Part B [id number] Self [id number] [facility] Community Plan Commercial [id number] [place] [id number] [place] [id number] Self [id number] Health Maintenance Organization (HMO) [id number] Self [id number] [place] [id number] Self [id number] Health Maintenance Organization (HMO) [id number] Self [id number] [facility] Medicaid Medicaid [id number] [place] [id number] [place] [id number] Self [id number] Health Maintenance Organization (HMO) [id number] Self [id number] [place] [id number] Self [id number] Health Maintenance Organization (HMO) [id number] Self [id number] Ghi FHP-(DO Not Use) Medigap Part B [id number] Self [id number] [facility] Community Plan Commercial [id number] Self [id number] [facility] Hmo Commercial [id number] Self [id number] Ghi FHP-(DO Not Use) Medigap Part B [id number] Self [id number] [facility] Community Plan Commercial [id number] Self [id number] [place] [id number] Self [id number] Ghi FHP-(DO Not Use) Medigap Part B [id number] Self [id number] Ghi FHP-(DO Not Use) Medigap Part B [id number] Self [id number] Ghi FHP-(DO Not Use) Medigap Part B [id number] Self [id number] [facility] COMM[facility]ITY [facility] [id number] SP [id number] [facility] COMMUNITY [facility] MCDO [id number] SP [id number] [facility] Community Plan Commercial Self [facility]) O [id number] S [id number] [facility] [id number] MEDICAID [id number] SP [id number] Medicaid Dental P [id number] S [id number] Sliding F[employer] Scale S [id number] S [id number] Problems, Conditions, and Diagnoses Code Display Name Description Problem Type Effective Dates Data Source(s) L30.4 [id number] Intertrigo Problem 01/10/2020 12:00:00 AM ED T eCW1 ([facility]) E11.9 [id number] Type 2 diabetes mellitus without complica tions Problem 12/17/2019 12:00:00 AM EDT eCW1 ([facility]) Z79.4 483284111 penitentiary (current) use of insulin Proble m 12/17/2019 12:00:00 AM EDT eCW1 ([facility]) A49.8 [id number] Infection due to Enterobacter aerogenes P roblem 12/17/2019 12:00:00 AM EDT eCW1 ([facility]) 77235703 Diplopia Diplopia Problem 12/06/2019 12:00:00 AM ED T MEDENT ([facility]) J45.41 [id number] Moderate persistent asthma with exacerbat ion Problem 11/20/2019 12:00:00 AM EDT eCW1 ([facility]) J45.41 645651042 Moderate persistent asthma with exacerbat ion Problem 11/20/2019 12:00:00 AM EDT eCW1 ([facility]) 00201601 Restless legs Restless legs Problem 06/20/2019 12:00:00 AM EST MEDENT ([facility]) 17675474 Hypersomnia Hypersomnia Problem 06/20/2019 12:00:00 AM EST MEDENT ([facility]) 72823593 Obstructive sleep apnea syndrome Obstructive sle ep apnea syndrome Problem 06/20/2019 12:00:00 AM EST MEDENT ([facility]) H268 Other specified cataract Other specified cataract Diag nosis 04/30/2020 08:30:00 AM EDT [facility] Surgeries/Procedures Procedure Description Date Indications Data Source(s) Viral antigen assay (procedure) 07/24/2020 12:00:00 AM [facility] Viral antigen assay (procedure) 07/24/2020 12:00:00 AM [facility] Measurement of occult blood in stool specimen using immunoas say (procedure) 04/16/2020 12:00:[address] [facility] Measurement of occult blood in stool specimen using immunoas say (procedure) 04/16/2020 [facility] Measurement of occult blood in stool specimen using immunoas say (procedure) 04/16/2020 12:00:[address] [facility] Measurement of occult blood in stool specimen using immunoas say (procedure) 04/16/2020 12:00:[address] [facility] Radiography of gastrointestinal tract (procedure) 01/31/2020 09:47:00 AM [facility] Radiography of gastrointestinal tract (procedure) 01/31/2020 09:47:00 AM [facility] Radiography of gastrointestinal tract (procedure) 01/31/2020 09:47:00 AM [facility] Radiography of gastrointestinal tract (procedure) 01/31/2020 09:47:00 AM [facility] Radiography of gastrointestinal tract (procedure) 01/31/2020 09:47:00 AM [facility] Radiography of gastrointestinal tract (procedure) 01/31/2020 09:47:00 AM [facility] Ultrasonography of abdomen (procedure) 01/31/2020 09:0 0:00 AM [facility] Ultrasonography of abdomen (procedure) 01/31/2020 09:0 0:00 AM [facility] Ultrasonography of abdomen (procedure) 01/31/2020 09:0 0:00 AM [facility] Ultrasonography of abdomen (procedure) 01/31/2020 09:0 0:00 AM [facility] Ultrasonography of abdomen (procedure) 01/31/2020 09:0 0:00 AM [facility] Ultrasonography of abdomen (procedure) 01/31/2020 09:0 0:00 AM [facility] Bronchospasm Evaluation 12/25/2019 12:00:00 AM EDT MEDENT ([facility], ) Maximum Breathing Capacity, Maximal Voluntary Ventilation 12/25/2019 12:00:00 AM EDT MEDENT ([facility], ) Plethysmography Determination Lung Volumes & Per Airway Resi st 12/25/2019 12:00:00 AM EDT [facility] DIFFUSING CAPACITY 12/25/2019 12:00:00 AM EDT MEDENT ([facility], ) PHYSICIAN TELEPHONE EVALUATION 11-20 MIN 11/08/2019 12 :00:00 AM EDT eCW1 ([facility]) Mycobacteria culture (procedure) 11/03/2019 12:00:00 A [facility] Acid fast stain method (procedure) 11/03/2019 12:00:00 AM [facility] AFB Specimen Processing Tissue 11/03/2019 12:00:00 AM [facility] Mycobacteria culture (procedure) 11/03/2019 12:00:00 A [facility] Acid fast stain method (procedure) 11/03/2019 12:00:00 AM [facility] AFB Specimen Processing Tissue 11/03/2019 12:00:00 AM [facility] Mycobacteria culture (procedure) 11/03/2019 12:00:00 A [facility] Acid fast stain method (procedure) 11/03/2019 12:00:00 AM [facility] AF[facility] Specimen Processing Tissue 11/03/2019 12:00:00 AM [facility] Mycobacteria culture (procedure) 11/03/2019 12:00:00 A [facility] Acid fast stain method (procedure) 11/03/2019 12:00:00 AM [facility] AF[employer] Specimen Processing Tissue 11/03/2019 12:00:00 AM [facility] Mycobacteria culture (procedure) 11/03/2019 12:00:00 A [facility] Acid fast stain method (procedure) 11/03/2019 12:00:00 AM [facility] [employer] Specimen Processing Tissue 11/03/2019 12:00:00 AM [facility] Mycobacteria culture (procedure) 11/03/2019 12:00:00 A [facility] Acid fast stain method (procedure) 11/03/2019 12:00:00 AM [facility] [employer] Specimen Processing Tissue 11/03/2019 12:00:00 AM [facility] Mycobacteria culture (procedure) 11/03/2019 12:00:00 A Salvatore [facility] Acid fast stain method (procedure) 11/03/2019 12:00:00 AM [facility] Specimen Processing Tissue 11/03/2019 12:00:00 AM [facility] Spirometry 07/30/2019 12:00:00 AM RJ CARLSON ([facility], ) Diagnostic radiography of lumbar spine (procedure) 06/28/2019 12:44:00 PM [facility] Skeletal X-ray of pelvis and hip (procedure) 9 12:44:00 PM [facility] Diagnostic radiography of lumbar spine (procedure) 06/28/2019 12:44:00 PM [facility] Skeletal X-ray of pelvis and hip (procedure) 9 12:44:00 PM [facility] Diagnostic radiography of lumbar spine (procedure) 06/28/2019 12:44:00 PM [facility] Skeletal X-ray of pelvis and hip (procedure) 9 12:44:00 PM [facility] Diagnostic radiography of lumbar spine (procedure) 06/28/2019 12:44:00 PM [facility] Skeletal X-ray of pelvis and hip (procedure) 9 12:44:00 PM [facility] Diagnostic radiography of lumbar spine (procedure) 06/28/2019 12:44:00 PM [facility] Skeletal X-ray of pelvis and hip (procedure) 9 12:44:00 PM [facility] Diagnostic radiography of lumbar spine (procedure) 06/28/2019 12:44:00 PM [facility] Skeletal X-ray of pelvis and hip (procedure) 9 12:44:00 PM [facility] Diagnostic radiography of lumbar spine (procedure) 06/28/2019 12:44:00 PM [facility] Skeletal X-ray of pelvis and hip (procedure) 9 12:44:00 PM [facility] Screening mammography (procedure) 06/01/2019 02:55:00 PM [facility] Screening mammography (procedure) 06/01/2019 02:55:00 PM [facility] Screening mammography (procedure) 06/01/2019 02:55:00 PM [facility] Screening mammography (procedure) 06/01/2019 02:55:00 PM [facility] Screening mammography (procedure) 06/01/2019 02:55:00 PM [facility] Screening mammography (procedure) 06/01/2019 02:55:00 PM [facility] Screening mammography (procedure) 06/01/2019 02:55:00 PM [facility] Screening mammography (procedure) 06/01/2019 02:55:00 PM [facility] Results ID Date Data Source [id number] 07/30/2020 03:17:00 PM [facility] Patient Name: ISIDRA YANEZ : 1960 Sex: F Pt Unit #: [id number] Location:[facility] Provider: Visit Date/Time: 07/30/20 Primary Insurance: [facility] Secondary Insurance: Self Pay ADDENDUM Patient called me back to say she had decided to go to [facility] since all of her specialist work out of [facility] and would be available for consult particularly Dr. Ambriz so she is headed to [facility] for evaluation and possible admission. <Electronically signed by Lindsay Huitron DO> 07/30/20 [id number] Intake Intake Visit Reasons: Telemed Visit Nurse Note: patient doing a tele med visit to follow up on her COVID symptoms. patient has the following symptoms; fatigue, cough, and headache. 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 Associate Required: No Is patient in pain?: No Allergies Sulfa (Sulfonamide Antibiotics) Allergy (Intermediate, Verified 04/14/20 11:17) PRURITIS, HIVES fluoxetine [Fluoxetine] Allergy (Unknown, Verified 04/14/20 11:17) Other, not listed metformin Adverse Reaction (Severe, Verified 04/14/20 11:17) LACTIC ACIDOSIS NSAIDS (Non-Steroidal Anti-Inflamma Adverse Reaction (Severe, Verified 04/14/20 11:17) GI Upset metoclopramide [Metoclopramide] Adverse Reaction (Intermediate, Verified 04/14/20 11:17) Dyskinesia Medications - Last Reconciled 07/30/20 by Lindsay Huitron DO acetaminophen (Tylenol Extra Strength) 1,000 mg PO Q6HRS PRN albuterol sulfate 90 mcg/actuation (Ventolin HFA) 2 puffs INH Q4HPRN PRN MDD 6 x albuterol sulfate 2.5 mg NEB Q4HPRN MDD 6 alprazolam (Xanax) 0.25 mg PO TIDPRN MDD 3 ascorbic acid (vitamin C) mg PO aspirin 81 mg PO QDAY atorvastatin 40 mg PO QPM azithromycin 500 mg PO QMWF blood sugar diagnostic (Zafgen Verio test strips) Use strips to test sugar before meals and at bedtime budesonide inhalation cyanocobalamin (vitamin B-12) (Vitamin B-12) 500 mcg PO DAILY dexamethasone 6 mg PO QDAY enalapril maleate TAKE ONE TABLET BY MOUTH EVERY DAY epinephrine (EpiPen) 0.3 mg (0.3 mL) IM 1T ergocalciferol (vitamin D2) (Vitamin D2) 50,000 units PO 1XW MDD 1 esomeprazole magnesium TAKE ONE CAPSULE BY MOUTH TWICE A DAY ethambutol 1,600 mg PO QDAY famotidine TAKE ONE TABLET BY MOUTH AT BEDTIME ferrous sulfate ER (iron ER) 325 mg PO BID fluticasone propion-salmeterol 113-14 mcg/actuation inhalations inhalation folic acid mg PO gabapentin TAKE ONE CAPSULE BY MOUTH THREE TIMES A DAY immun glob G(IgG)-pro-IgA 0-50 1 gram/5 mL (20 %) (Hizentra) 20 grams subcut QWEEK insulin glargine (Basaglar KwikPen U-100 Insulin) 65 units (0.65 mL) subcut HS insulin lispro (Humalog KwikPen (U-100) Insulin) 1 unit (0.01 mL) subcut QACHS ipratropium-albuterol 0.5 mg-3 mg(2.5 mg base)/3 mL 3 mL inhalation QID MDD 4 Lactobacillus acidophilus PO lancets (Axiatauch Delica Lancets) to be used AC and HS loratadine TAKE ONE TABLET BY MOUTH EVERY DAY FOR ALLERGIC RHINITIS methotrexate sodium mg PO montelukast TAKE ONE TABLET BY MOUTH AT BEDTIME FOR ALLERGIC RHINITIS multivitamin (Daily Multi-Vitamin) 1 tab PO DAILY pen needle,diabetic dual safty (BD AutoShield Duo Pen Needle) MDD 5 pyridostigmine bromide (Mestinon) 60 mg PO QID MDD 4 rifampin 300 mg PO QDAY ropinirole 2 mg PO BID sertraline TAKE ONE TABLET BY MOUTH EVERY DAY topiramate (Topamax) 100 mg PO BID umeclidinium 62.5 mcg/actuation (Incruse Ellipta) 1 inh inhalation QDAY zinc 50 mg PO QDAY PHQ-2/9 Over the last 2 weeks, how often have you been bothered by any of the following problems? 1. Little interest or pleasure in doing things: not at all 2. Feeling down, depressed, or hopeless: not at all Total score: 0 HIV Testing Offer - ages 13-64 Requirement for HIV testing offer been met?: Not in age range SBIRT Annual Questionnaire Are you currently in recovery for alcohol or substance use?: No How many times in the past year have you had 4 or more drinks in a day?: None How many times in the past year have you used a recreational drug or used a prescription medication for nonmedical reasons?: None Do you need a note to return Do you need a note to return to daycare/school/sports/work: No Telephone visit Telephone/Virtual Visit Patient consented to consult via telephone or video: Yes Real-time synchronous services were performed via: Audio only (Phone) Names of people present:: Patient and her Jose Carlos-call started at 448- ended at 5 PM Location of provider: Provider office Location of the Patient: Home Total time spent on medical discussion: 12 minutes Coronavirus Screening Screening Have you traveled outside of [facility] in the last 14 days.: Yes Has patient experienced coronavirus symptoms: Yes Coronavirus symptoms experienced: Shortness of breath, difficulty breathing or cough (cough and short of breath on exertion, short of breath talking, shortness of breath much worse at night, not wearing her CPAP) and Muscle, body aches or fatigue (headache and fatigue, patient has had severe fatigue and compounded by the fact she is too short of breath to wear her CPAP) ON LICENSE OF [facility] Medical History Allergic rhinitis Anxiety and depression Aspiration pneumonia due to regurgitated gastric secretions Asthma w/ status asthmaticus Atrophic vaginitis Benign familial tremor Bilateral pneumonia Bronchiectasis Chronic fatigue syndrome Chronic pansinusitis Common variable immunodeficiency (0 02/02/16) Cough Depression with anxiety Diabetes mellitus E-coli UTI EKG abnormalities Enterobacter cloacae pneumonia Eustachian tube dysfunction Exacerbation of asthma Gastroparesis GERD (gastroesophageal reflux disease) Heme positive stool Herpes zoster Hiatal hernia Hypertension, essential Hypoglycemia associated with diabetes Influenza A Influenza B (09/06/17) Lactic acidosis (02/05/17) Mild vitamin D deficiency Mixed hyperlipidemia Mixed stress and urge urinary incontinence multiple gastric ulcers-[place] scope 05-18-18 (05/18/18) Myasthenia gravis Mycobacterium avium infection Nausea ( 12/19/18) DMITRI on CPAP Postmenopausal Pulmonary hypertension Pulmonary nodules Severe persistent asthma dependent on systemic steroids with acute exacerbation Shortness of breath Sinobronchitis SOB (shortness of breath) Temporal mandibular joint disorder Viral upper respiratory infection Wheezes ( 07/24/20) Surgical History Cataract extraction status, right eye History of - surgery History of - surgery (05/18/18) History of carpal tunnel surgery History of colonoscopy History of hysterectomy History of sinus surgery (03/09/18) Status post oophorectomy Family History Mother Liver cell carcinoma Father No problems noted. Sister Diabetes Hyperlipidemia Hypothyroidism Carcinoma of breast, Onset Age: 30 Sister Carcinoma of breast, Onset Age: 50 Other Carcinoma of colon Social History Does the Patient have a Healthcare Proxy: Yes (/sister) Does Patient have a DNR?: No Does Patient have a Living Will?: No Does the Patient have a MOLST?: No Advance Directives on File or in chart?: No household members: spouse housing: house marital status: lives independently: Yes number of children: 4 number of grandchildren: 13 highest education level completed: some college, no degree service: No current occupational status: unemployed current occupation: disabled current occupational exposures/hazards: No pets and animals: Yes Hx Recent Travel (where): No do you think of yourself as: straight/heterosexual well-balanced diet: about half the time high-fat food intake: 3 or more times/day daily servings fruits/ve-4 daily servings of milk/calcium: 2-4 eating out: rarely or never reads food labels: usually or always during the past year weight has: remained stable what type of physical activity do you participate in?: walking Smoking Status: Never smoker alcohol intake: never substance use type: does not use ayan/tenriism: Buddhist seatbelt use: always drive intox or ride w/ intox 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 Her sisters went with her. Approximately 1 week after getting home, her sister Amy tested positive for Covid as well as her sister's . They all had travel together and been in close contact in the car both while they were in [place] and also after they got home taking sister back and forth to doctor appointments. Patient's other older sister tested positive for Covid is well. Patient developed cough, body aches, fatigue, sore throat, some loss of taste and smell and tested positive last Tuesday, she is day 8 of her illness. She has multiple high risk conditions including myasthenia gravis requiring methotrexate use, common variable immunodeficiency for which she is treated with weekly IVIG, history of MAC pneumonia, severe persistent asthma, insulin- dependent diabetes, morbid obesity, gastroparesis, hypertension, bronchiectasis and severe sleep apnea. She is on dexamethasone. She is having follow-up telemedicine visit to assess how she is doing with the COVID-19. She sounds hoarse and short winded on the phone. She tells me she has slept most of the day. She says she has not eaten anything. She has no appetite. She has not checked any blood sugars. She says her oxygen level is still 95 on room air. She says she feels worse today. She slept poorly again last night. She had to do a nebulizer again in the night. Her cough is no better. She is still bringing up yellow phlegm. She is getting chills. Her temp has been in the 99 range but nothing up over 100. Her chest is tight. She is short of breath even just sitting in her chair. She is short of breath laying down. She says she feels miserable. She does not feel any better at all today. She is questioning if she should go to the ER. She is questioning if she should go to [facility]. Review of Systems Const All systems reviewed are unremarkable except as noted in HPI and below Reports as per HPI, Reports body aches, Reports chills, Reports daytime sleepiness, Reports difficulty sleeping, Denies excessive sweating, Reports fatigue, Denies fever(s), Denies frequent falls, Reports headache(s), Reports lethargy, Reports malaise, Denies night sweats, Reports poor appetite and Reports weakness Eyes Reports requires corrective lenses ENT Reports as per HPI, Reports dysphagia, Denies vertigo, Reports dizziness, Denies ear discharge, Denies otalgia, Reports headache(s), Reports hoarseness, Denies epistaxis, Reports nasal congestion, Reports nasal discharge, Denies neck pain, Reports post nasal drip, Reports sinus pain, Reports sinus pressure, Reports sore throat, Denies throat swelling and Denies tongue swelling Card Reports as per HPI, Reports chest pain, Reports chest pain at rest, Denies chest pain with activity, Denies diaphoresis, Denies syncope, Denies pedal edema, Denies irregular heart rhythm, Denies claudication, Denies leg ulcers, Denies leg edema, Reports lightheadedness, Denies palpitations, Reports dyspnea, Reports dyspnea on exertion, Reports orthopnea and Reports paroxysmal nocturnal dyspnea Resp Reports as per HPI, Denies change in phlegm color, Reports chest congestion, Reports cough, Denies hemoptysis, Denies excessive phlegm production, Reports pain on inspiration, Rep orts pain with cough, Reports dyspnea, Reports dyspnea on exertion and Reports wheezing GI Reports as per HPI, Denies change in bowel habits, Reports dysphagia, Denies heartburn, Denies nausea and Denies vomiting Genitourinary: Reports urinary frequency and urinary urgency; Denies nocturia or dysuria Musc Reports as per HPI, Denies back pain, Denies arthralgias and Denies neck pain Skin/Breast Reports as per HPI, Denies pruritus and Denies rash Neuro Reports as per HPI, Denies vertigo, Reports dizziness, Denies syncope, Denies frequent falls, Reports headache(s) and Reports weakness Psych Reports as per HPI, Reports abnormal sleep pattern, Reports anxiety and Reports depression Endo Reports as per HPI, Denies excessive sweating, Reports fatigue, Reports heat intolerance, Denies polyphagia, Denies polydipsia, Denies polyuria and Denies palpitations Ryan/Lymph Reports as per HPI, Denies easy bleeding and Reports easy bruising Aller/Immun Reports as per HPI, Reports GI upset with certain foods, Reports seasonal rhinorrhea, Denies throat swelling, Denies tongue swelling and Reports wheezing Assessment Plan Assessment Plan (1) COVID-19: Status: Acute Onset Date: 07/2020 Comment: High risk to do poorly given myasthenia gravis, immunosuppression with methotrexate, common variable immune deficiency dependent on weekly IVIG injections, type 2 diabetes insulin-dependent, morbid obesity, severe sleep apnea CPAP dependent, hypertension, severe persistent asthma, history MAC pneumonia-follows with Dr. Ambriz for pulmonary, Dr. Wilkinson for neurology, [place] [facility] for her immunodeficiency Code(s): U07.1 - COVID-19 SNOMED Code(s): 395160890 Category: Medical Plan - Lindsay Chapman DO: Patient on assessment today although I am not seeing her in person and this is just telemedicine visit is day 8 of illness and seems like she is worsening although she reports her home oxygen is 95 she just generally seems to be feeling worse. She is high risk to deteriorate and have severe disease given her comorbidities as mentioned above. I think she should be evaluated in the ER. She has pulmonary neurology and allergy all of which manage her complex medical history in [place] so she wants to check and if the wait is reasonable at [facility] she prefers to go there she is going to call and let me know her final decision. Time spent Total time spent on medical discussion: 12 minutes Coding Level of Care Code Established Pt Telemed Visit (11-20 min) Patient Type Established Medical Decision Making Moderate Complexity Diagnoses COVID-19 U07.1 <Electronically signed by Lindsay Chapman DO> 07/30/20 6122 Name Value Range Interpretation Code Description Data Sarah rce(s) Supporting Document(s) ID Date Data Source [id number] 07/29/2020 10:15:00 AM [facility] Patient Name: ISIDRA YANEZ : 1960 Sex: F Pt Unit #: [id number] Location:[facility] Provider: Visit Date/Time: 07/29/20 Primary Insurance: [facility] Secondary Insurance: Self Pay Intake Intake Visit Reasons: Telemed Visit, covid 19, Asthma exacerbation 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 Associate Required: No Is patient in pain?: No Allergies Sulfa (Sulfonamide Antibiotics) Allergy (Intermediate, Verified 04/14/20 11:17) PRURITIS, HIVES fluoxetine [Fluoxetine] Allergy (Unknown, Verified 04/14/20 11:17) Other, not listed metformin Adverse Reaction (Severe, Verified 04/14/20 11:17) LACTIC ACIDOSIS NSAIDS (Non-Steroidal Anti-Inflamma Adverse Reaction (Severe, Verified 04/14/20 11:17) GI Upset metoclopramide [Metoclopramide] Adverse Reaction (Intermediate, Verified 04/14/20 11:17) Dyskinesia Medications - Last Reconciled 07/29/20 by Lindsay Chapman DO acetaminophen (Tylenol Extra Strength) 1,000 mg PO Q6HRS PRN albuterol sulfate 90 mcg/ actuation (Ventolin HFA) 2 puffs INH Q4HPRN PRN MDD 6 x albuterol sulfate 2.5 mg NEB Q4HPRN MDD 6 alprazolam (Xanax) 0.25 mg PO TIDPRN MDD 3 ascorbic acid (vitamin C) mg PO aspirin 81 mg PO QDAY atorvastatin 40 mg PO QPM azithromycin 500 mg PO QMWF blood sugar diagnostic ([email or web address] Verio test strips) Use strips to test sugar before meals and at bedtime budesonide inhalation cyanocobalamin (vitamin B-12) (Vitamin B-12) 500 mcg PO DAILY dexamethasone 6 mg PO QDAY enalapril maleate 2.5 mg PO DAILY epinephrine (EpiPen) 0.3 mg (0.3 mL) IM 1T ergocalciferol (vitamin D2) (Vitamin D2) 50,000 units PO 1XW MDD 1 esomeprazole magnesium TAKE ONE CAPSULE BY MOUTH TWICE A DAY ethambutol 1,600 mg PO QDAY famotidine TAKE ONE TABLET BY MOUTH AT BEDTIME ferrous sulfate ER (iron ER) 325 mg PO BID fluticasone propion-salmeterol 113-14 mcg/actuation inhalations inhalation folic acid mg PO gabapentin TAKE ONE CAPSULE BY MOUTH THREE TIMES A DAY immun glob G(IgG)-pro-IgA 0-50 1 gram/5 mL (20 %) (Hizentra) 20 grams subcut QWEEK insulin glargine (Basaglar KwikPen U-100 Insulin) 65 units (0.65 mL) subcut HS insulin lispro (Humalog KwikPen (U-100) Insulin) 1 unit (0.01 mL) subcut QACHS ipratropium-albuterol 0.5 mg-3 mg(2.5 mg base)/3 mL 3 mL inhalation QID MDD 4 Lactobacillus acidophilus PO lancets (Axiatauch DelConnected Data Lancets) to be used AC and HS loratadine TAKE ONE TABLET BY MOUTH EVERY DAY FOR ALLERGIC RHINITIS methotrexate sodium mg PO montelukast TAKE ONE TABLET BY MOUTH AT BEDTIME FOR ALLERGIC RHINITIS multivitamin (Daily Multi- Vitamin) 1 tab PO DAILY pen needle,diabetic dual safty (BD AutoShield Duo Pen Needle) MDD 5 pyridostigmine bromide (Mestinon) 60 mg PO QID MDD 4 rifampin 300 mg PO QDAY ropinirole 2 mg PO BID sertraline TAKE ONE TABLET BY MOUTH EVERY DAY topiramate (Topamax) 100 mg PO BID umeclidinium 62.5 mcg/actuation (Incruse Ellipta) 1 inh inhalation QDAY zinc 50 mg PO QDAY Post menopausal: Yes Vision Wearing glasses?: Yes Fall Risk History of falls: Yes Ambulatory Aid:: Crutches Cane or Walker Gait/Transferring:: Impaired Medications:: Antihypertensives Fall Risk education: discussed PHQ-2/9 Over the last 2 weeks, how often have you been bothered by any of the following problems? 1. Little interest or pleasure in doing things: several days 2. Feeling down, depressed, or hopeless: several days Total score: 2 3. Trouble falling or staying asleep, or sleeping too much: nearly every day 4. Feeling tired or having little energy: nearly every day 5. Poor appetite or overeating: several days 6. Feeling bad about yourself - or that you are a failure or have let yourself and your family down:not at all 7. Trouble concentrating on things, such as reading the newspaper or watching television: not at all 8. Moving or speaking so slowly that other people could have noticed? - Or the opposite - being so fidgety or restless that you have been moving around a lot more than usual: not at all 9. Thoughts that you would be better off or of hurting yourself in some way: not at all Total score: 9 If you checked off any problems, how difficult have these problems made it for you to do your work, take care of things at home, or get along with other people?: somewhat difficult Source: Developed by Drs. Hernando Givens, Radha Cnatu, Salvatore Chakraborty and colleagues, with an educational andrew from [employer]. HIV Testing Offer - ages 13-64 Requirement for HIV testing offer been met?: Not in age range Telephone visit Telephone/Virtual Visit Patient consented to consult via telephone or video: Yes Real-time synchronous services were performed via: Audio only (Phone) Names of people present:: pt started 1035am- had bad night Location of provider: Provider office Location of the Patient: Home Coronavirus Screening Screening Have you traveled outside of [facility] or [facility] in the last 14 days.: Yes Has patient experienced coronavirus symptoms: Yes Coronavirus symptoms experienced: lower respiratory illness, Shortness of breath, difficulty breathing or cough, Muscle, body aches or fatigue and New loss of taste or smell PFSH Medical History Allergic rhinitis Anxiety and depression Aspiration pneumonia due to regurgitated gastric secretions Asthma w/ status asthmaticus Atrophic vaginitis Benign familial tremor Bilateral pneumonia Bronchiectasis Chronic fatigue syndrome Chronic pansinusitis Common variable immunodeficiency (02/02/16) Cough Depression with anxiety Diabetes mellitus E-coli UTI EKG abnormalities Enterobacter cloacae pneumonia Eustachian tube dysfunction Exacerbation of asthma Gastroparesis GERD (gastroesophageal reflux disease) Heme positive stool Herpes zoster Hiatal hernia Hypertension, essential Hypoglycemia associated with diabetes Influenza A Influenza B (09/06/17) Lactic acidosis (02/05/17) Mild vitamin D deficiency Mixed hyperlipidemia Mixed stress and urge urinary incontinence multiple gastric ulcers-[place] scope 11-8-18 (05/18/18) Myasthenia gravis Mycobacterium avium infection Nausea ( 12/19/18) DMITRI on CPAP Postmenopausal Pulmonary hypertension Pulmonary nodules Severe persistent asthma dependent on systemic steroids with acute exacerbation Shortness of breath Sinobronchitis SOB (shortness of breath) Temporal mandibular joint disorder Viral upper respiratory infection Wheezes ( 07/24/20) Surgical History Cataract extraction status, right eye History of - surgery History of - surgery (05/18/18) History of carpal tunnel surgery History of colonoscopy History of hysterectomy History of sinus surgery (03/09/18) Status post oophorectomy Family History Mother Liver cell carcinoma Father No problems noted. Sister Diabetes Hyperlipidemia Hypothyroidism Carcinoma of breast, Onset Age: 30 Sister Carcinoma of breast, Onset Age: 50 Other Carcinoma of colon Social History Does the Patient have a Healthcare Proxy: Yes (/sister) Does Patient have a DNR?: No Does Patient have a Living Will?: No Does the Patient have a MOLST?: No Advance Directives on File or in chart?: No household members: spouse housing: house marital status: lives independently: Yes number of children: 4 number of grandchildren: 13 highest education level completed: some college, no degree service: No current occupational status: unemployed current occupation: disabled current occupational exposures/hazards: No pets and animals: Yes Hx Recent Travel (where): No do you think of yourself as: straight/heterosexual well-balanced diet: about half the time high-fat food intake: 3 or more times/day daily servings fruits/ve-4 daily servings of milk/calcium: 2-4 eating out: rarely or never reads food labels: usually or always during the past year weight has: remained stable what type of physical activity do you participate in?: walking Smoking Status: Never smoker alcohol intake: never substance use type: does not use ayan/tenriism: Buddhist seatbelt use: always drive intox or ride w/ intox 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 She is taking her baseline medications to try to stabilize her persistent asthma on a regular basis including Hizentra 20 g subcu weekly for her common variable immunodeficiency. She does have myasthenia gravis and is on methotrexate which is immunosuppressant which puts her further at risk to do poorly with the Covid. She is using her Incruse elliptica and her Advair. She did start dexamethasone 6 mg daily. She is doing her nebulized Pulmicort. She is still on Zithromax as part of her MAC regimen which she has been on forover a year. She says she ran out of albuterol for the nebulizer. She still has Ventolin. She didfor duo nebs yesterday but still put in a very tough night last night. Says she was up most of the night coughing hacking and short winded and thought about going to the ER but toughed it out at home. She does not have much appetite. She is on both H2 de and PPI for her gastroparesis andreflux but does not feel that is really flaring currently. She has not taken her insulin yet she isadditionally on Claritin and Singulair for her allergies and asthma Asthma Details: Patient follows with both [place] [facility] and gets IVIG for her common variable immunodeficiency on a weekly basis and also follows with infectious disease in [place] and continues on her triple regimen for MAC pneumonia. She is still on Zithromax 500mg 3 times a week. She also gets PFTs and sees Dr. Ambriz on a regular basis for management of her asthma. Her sleep apnea is managed by [facility] neurology group Dr. Wilkinson as she has myasthenia gravis. She admits shehas been too sick the past 2 nights to wear her CPAP all night. She says she was coughing and up short of breath most of the night last night and actually could not wear his CPAP at all admits lastnight was the worst night she has had since her diagnosis a week ago. But she did check her sat andit was 94 last night before she went to bed. It is 94 this morning she admits in the night when shefelt the worst she did not check it she has not checked her blood sugars this morning. Call startedat 1035. Ended at 1049-14 minutes Previously diagnosed with asthma: Yes Asthma severity: severe, persistent Current symptoms: Reports cough, dyspnea, wheezing, chest congestion and chest tightness; Denies fever(s) How are your symptoms today: very bad Frequency of symptoms: daily GREG use for symptom control: daily Activity limitation: extremely limited Exacerbations: >3/year requiring oral steroids Seasonal pattern: No Asthma triggers: Reports allergens, daily activities, exercise, second-hand smoke and infection Alleviating factors: Reports inhaler Exposures: Reports pets and tobacco smoke Associated symptoms: Reports cough, chest pain (while coughing), chest tightness, dyspnea, wheezing,rhinorrhea, excessive phlegm production and headache(s); Denies vomiting Previous allergy testing done: Yes Exercise oximetry: No Overnight pulse oximetry: Yes Revie w of Systems Const Reports as per HPI, Reports body aches, Denies chills, Reports daytime sleepiness, Reports difficulty sleeping, Reports fatigue, Denies fever(s), Reports headache(s), Reports lethargy and Reports poor appetite Details: last night too sick to wear machine,thought about coming to ER Eyes Reports as per HPI, Denies blurry vision, Denies eye discharge, Denies irritation, Denies itchy eyes, Denies loss of vision and Reports requires corrective lenses ENT Denies dysphagia, Denies vertigo, Denies dizziness, Reports headache(s), Reports hoarseness, Denies lip swelling, Denies epistaxis, Reports nasal congestion, Reports nasal discharge, Denies neck pain,Denies odynophagia, Reports post nasal drip, Reports sinus pain, Reports sinus pressure and Denies sore throat Details: cannot taste food much but can smell Card Reports as per HPI, Reports chest pain (while coughing), Reports chest pain at rest, Denies chest pain with activity, Denies syncope, Reports rapid heart rate, Denies pedal edema, Denies edema, Denies irregular heart rhythm, Denies claudication, Denies leg ulcers, Denies leg edema, Reports lightheadedness, Reports palpitations, Reports dyspnea, Reports dyspnea on exertion, Reports orthopnea and Reports paroxysmal nocturnal dyspnea Details: sat was 94 so she decided to stay home and tough it out Resp Reports as per HPI, Denies change in phlegm color, Reports chest congestion, Reports cough, Denies hemoptysis, Reports excessive phlegm production, Reports pain on inspiration, Reports pain with cough, Reports dyspnea, Reports dyspnea on exertion and Reports wheezing Details: sputum is hard to get up and still yellow GI Reports as per HPI, Reports abdominal pain, Denies melena, Denies hematochezia, Denies change in stool character, Denies constipation, Denies dysphagia, Denies heartburn, Denies diarrhea, Reports nausea, Denies odynophagia, Denies vomiting and Denies hematemesis Genitourinary: Reports as per HPI, nocturia, urinary frequency and urinary urgency; Denies hematuria, difficulty voiding, post void dribbling, dysuria or urinary hesitancy Musc Reports as per HPI, Reports myalgias, Reports arthralgias, Denies neck pain, Reports numbness, Reports stiffness and Reports tingling Skin/Breast Reports as per HPI, Reports dry skin, Denies pruritus and Denies rash Neuro Reports as per HPI, Denies vertigo, Denies dizziness, Denies syncope, Reports headache(s), Denies loss of vision, Reports numbness, Reports tingling, Reports paresthesias and Denies tremor(s) Psych Reports as per HPI, Reports abnormal sleep pattern, Reports anxiety, Reports change in appetite, Reports depression, Reports anhedonia, Denies homicidal ideation and Denies suicidal ideation Endo Reports as per HPI, Reports fatigue, Reports heat intolerance, Denies polyphagia, Denies polydipsia,Denies polyuria and Reports palpitations Ryan/Lymph Reports system reviewed and no additional complaints, except as documented Aller/Immun Reports as per HPI, Reports GI upset with certain foods, Denies urticaria, Denies itchy eyes, Denieslip swelling, Reports seasonal rhinorrhea and Reports wheezing Quality Reporting Depression/Bipolar (159/160/161/169/177) Total score: 9 Assessment Plan Assessment Plan (1) Exacerbation of asthma: Code(s): J45.901 - Unspecified asthma with (acute) exacerbation Plan: Exacerbation of her asthma due to COVID-19. [...] really is double dosing on the anticholinergic. She is doing Advair and budesonide so to inhaled steroids in addition to her systemic dexamethasone. 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 There really is not anything else as an outpatient we can do. If she worsens she is going to need to be admitted for IV dexamethasone and remdesivir. She has myasthenia gravis. This could flare and affect her breathing muscles. I discussed all this with her. She understands. I had her put her on the phone and talk to him briefly as well. He voices understanding. Tentatively another telemedicine visit tomorrow. Otherwise if she worsens either today during the day or tonight to the ER for admission. It may even be best to had to [facility] since all of the specialist that manage her multiple problems are available at [facility]. It matters less where she goes and just if she worsens that she gets to theER. Coding Level of Care Code Telemed Visit (11-20 min) Diagnoses Exacerbation of asthma J45.901 Time Spent (min) 14 <Electronically signed by Lindsay Chapman DO> 07/29/20 1057 Name Value Range Interpretation Code Description Data Sarah rce(s) Supporting Document(s) ID Date Data Source [id number] 07/25/2020 10:09:00 AM [facility] Patient Name: ISIDRA YANEZ : 1960 Sex: F Pt Unit #: [id number] Location:[facility] Provider: Visit Date/Time: 07/24/20 Primary Insurance: [facility] Secondary Insurance: Self Pay Provider Note I called patient this am to be sure she is aware that she is covid positive. I told her public health should be calling her today. She reports her breathing is about the same. She asked about checking for fever. I reminded her that is a symptom. She can check twice daily. Treat fever over 100 with Tylenol. I suggested if she uses her nebulizer she do it in a room all by herself,( as she lives with others who are not positive.) I also counseled her that her breathing could deteriorate quite rapidly and if she starts strugglingto breath she needs to call 911 and get to a hospital. She verbalized her understanding. <Electronically signed by Zara LÓPEZ> 07/25/20 1013 Name Value Range Interpretation Code Description Data [facility] rce(s) Supporting Document(s) ID Date Data Source [id number] 07/24/2020 06:41:00 PM EST Reason for Exam: cough, shortness of mal athReason for Exam:: cough, shortness of breathRESULTS CALLED TO PUBLIC HEALTH (ANITHA VILLATORO) 07-24-20 [id number] result is "BinaxNow Covid-19 Ag negative"BinaxNow Covid-19 Ag is a rapid lateral flowimmunochromatographic immunoassayThis test detects both viable(live) and non-viable, SARS-COVand SARS-COV-2.Positive test results do not differentiate between SARS-COVand [id number] results , from patients with symptom onset beyondseven days, should be treated as presumptive andconfirmation with a molecular assay, if necessary, forpatient managementIf the differentiation of specific SARS viruses and strainsis needed, additional testing, in consultation with stateand local public health departments, is required.SARS-CoV-2 Ag Resp Ql IA.rapid Name Value Range Interpretation Code Description Data Sarah rce(s) Supporting Document(s) ID Date Data Source [id number] 07/24/2020 04:53:00 PM [facility] Name Value Range Interpretation Code Description [facility]) SARS-CoV-2 (COVID-19) Ag [Presence] in R espiratory specimen by Rapid immunoassay BinaxNow Covid-19 Ag positive [facility] This lab was ordered by [facility] and reported by [facility]. ID Date Data Source [id number] 07/24/2020 11:37:00 AM [facility] Patient Name: ISIDRA YANEZ : 1960 Sex: F Pt Unit #: [id number] Location:[facility] Provider: Visit Date/Time: 07/24/20 Primary Insurance: [facility] Secondary Insurance: Self Pay Intake Intake Visit Reasons: Telemed Visit Nurse Note: Pt called due to cold/covid sx that started yesterday. Pt has a headache, cough and feels SOB due to the cough. She states that she always feels tired. Pt has a hx of asthma and otherlung issues. Pt has been exposed to a covid positive. Pt has tx today with Mucinex. 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 Associate Required: No Accompanied by: self Is patient in pain?: Yes (chest hurts from cough) Allergies Sulfa (Sulfonamide Antibiotics) Allergy (Intermediate, Verified 04/14/20 11:17) PRURITIS, HIVES fluoxetine [Fluoxetine] Allergy (Unknown, Verified 04/14/20 11:17) Other, not listed metformin Adverse Reaction (Severe, Verified 04/14/20 11:17) LACTIC ACIDOSIS NSAIDS (Non-Steroidal Anti-Inflamma Adverse Reaction (Severe, Verified 04/14/20 11:17) GI Upset metoclopramide [Metoclopramide] Adverse Reaction (Intermediate, Verified 04/14/20 11:17) Dyskinesia Is last menstrual period known: No Post menopausal: No Patient : No Vision Wearing glasses?: No Fall Risk History of falls: No Ambulatory Aid:: None Gait/Transferring:: Normal HIV Testing Offer - ages 13-64 Requirement for HIV testing offer been met?: Not in age range Hep C Testing Offered: No Hep C Requirement met: Patient reports past refusal SBIRT Annual Questionnaire Are you currently in recovery for alcohol or substance use?: No How many times in the past year have you had 4 or more drinks in a day?: None How many times in the past year have you used a recreational drug or used a prescription medication for nonmedical reasons?: None Do you need a note to return Do you need a note to return to daycare/school/sports/work: No Telephone visit Telephone/Virtual Visit Patient consented to consult via telephone or video: No Real-time synchronous services were performed via: Audio only (Phone) Names of people present:: Zully CABAN, Stefany Ceron LPN, Zara LÓPEZ Location of provider: Provider office Location of the Patient: Home Coronavirus Screening Screening Have you traveled outside of [facility] or [facility] in the last 14 days.: Yes Coronavirus symptoms experienced: fever or chills (chills) and Shortness of breath, difficulty breathing or cough PFSH Medical History (Updated 07/24/20 @ 12:13 by RENE Vidal) Allergic rhinitis Anxiety and depression Aspiration pne umonia due to regurgitated gastric secretions Asthma w/ status asthmaticus Atrophic vaginitis Benign familial tremor Bilateral pneumonia Bronchiectasis Chronic fatigue syndrome Chronic pansinusitis Common variable immunodeficiency (02/02/16) Cough Depression with anxiety Diabetes mellitus E-coli UTI EKG abnormalities Enterobacter cloacae pneumonia Eustachian tube dysfunction Exacerbation of asthma Gastroparesis GERD (gastroesophageal reflux disease) Heme positive stool Herpes zoster Hiatal hernia Hypertension, essential Hypoglycemia associated with diabetes Influenza A Inf luenza B (09/06/17) Lactic acidosis (02/05/17) Mild vitamin D deficiency Mixed hyperlipidemia Mixed stress and urge urinary incontinence multiple gastric ulcers-[facility] scope 11-8-18 (05/18/18) Myasthenia gravis Mycobacterium avium infection Nausea ( 12/19/18) DMITRI on CPAP Postmenopausal Pulmonary hypertension Pulmonary nodules Severe persistent asthma dependent on systemic steroids with acute exacerbation Shortness of breath Sinobronchitis SOB (shortness of breath) Temporal mandibular joint disorder Viral upper respiratory infection Wheezes ( 07/24/20) Surgical History Cataract extraction status, right eye History of - surgery History of - surgery (05/18/18) History of carpal tunnel surgery History of colonoscopy History of hysterectomy History of sinus surgery (03/09/18) Status post oophorectomy Family History Mother Liver cell carcinoma Father No problems noted. Sister Diabetes Hyperlipidemia Hypothyroidism Carcinoma of breast, Onset Age: 30 Sister Carcinoma of breast, Onset Age: 50 Other Carcinoma of colon Social History Does the Patient have a Healthcare Proxy: Yes (/sister) Does Patient have a DNR?: No Does Patient have a Living Will?: No Does the Patient have a MOLST?: No Advance Directives on File or in chart?: No household members: spouse housing: house marital status: lives independently: Yes number of children: 4 number of grandchildren: 13 highest education level completed: some college, no degree service: No current occupational status: unemployed current occupation: disabled current occupational exposures/hazards: No pets and animals: Yes Hx Recent Travel (where): No do you think of yourself as: straight/heterosexual well-balanced diet: about half the time high-fat food intake: 3 or more times/day daily servings fruits/ve-4 daily servings of milk/calcium: 2-4 eating out: rarely or never reads food labels: usually or always during the past year weight has: remained stable what type of physical activity do you participate in?: walking Smoking Status: Never smoker alcohol intake: never substance use type: does not use ayan/tenriism: Buddhist seatbelt use: always drive intox or ride w/ intox 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 Onset of symptoms: 07/23/2020 The reported symptoms see ROS: Exposure to covid : yes Any chronic illnesses? Asthma, hx hypoxia, diabetes Who is PCP? Dr Chapman The patient consented to this telemed visit and is aware there will be a charge generated for this encounter. Review of Systems Const Details: Feeling ill? yes Fever? no fever Chills? chills Weak? yes fatigue? tired nothing new Lethargy? no Decreased appetite? no Increased sleeping? no Eyes Details: loss of moisture in eyes? no Vision disturbances? no ENT Details: Blue lips ? no dry mouth? no URI symptoms? nasal congestion, nose running, Sore throat? no Card Details: Chest tightness? yes Chest pain? with cough Resp Details: shortness of breath? able to walk around and talk without difficulty? yes Wheezing? yes Cough? persistent, productive no Any blood coughed up? no Smoker? yes GI Details: Nausea? no Vomiting ? no Diarrhea ? no Skin/Breast Details: Rash? no Neuro Details: Confused? no Irritable? no Seizures? no Difficult to wake up? no Dizziness? no Headache? with cough New loss of taste or smell? no Exam Const Other: Decrease in frequency of urination? Resp Other: I can hear her wheezing. She had a moist cough periodically throughout the interview Musc Other: muscle aches ? no Assessment Plan Assessment Plan (1) Cough: Status: Acute Code(s): R05 - Cough SNOMED Code(s): 69865484 Category: Medical Orders: Orders: BinaxNow Covid-19 Ag Today (2) Wheezes: Status: Acute Onset Date: 07/24/20 Code(s): R06.2 - Wheezing SNOMED Code(s): 86187749 Category: Medical Orders: Orders: BinaxNow Covid-19 Ag Today (3) Shortness of breath: Status: Acute Code(s): R06.02 - Shortness of breath SNOMED Code(s): 125646078 Category: Medical Orders: Orders: B inaxNow Covid-19 Ag Today Additional Comments Additional Comments: A covid test was ordered. Coding Level of Care Code Telemed Visit (5-10 min) Diagnoses Cough R05 Wheezes R06.2 Shortness of breath R06.02 Time Spent (min) 10 <Electronically signed by Zara LÓPEZ> 07/24/20 1214 Name Value Range Interpretation Code Description Data Sarah rce(s) Supporting Document(s) ID Date Data Source [id number] 05/30/2020 03:10:00 PM [facility] Patient Name: ISIDRA YANEZ : 1960 Sex: F Pt Unit #: [id number] Location:[facility] Provider: Visit Date/Time: 05/30/20 Primary Insurance: [facility] Secondary Insurance: Self Pay Intake Intake Visit Reasons: Diabetes Nurse Note: patient s doing a tele med visit for follow up on her diabetes. consent was obtained. patient has eye appt on tuesday with [facility]. last feet exam 02/2019. 11/2018. patient checks her blood sugar four times a day. patient complaints of runny nose she believes her allergy meds need to be increased. Is patient in pain?: No Allergies Sulfa (Sulfonamide Antibiotics) Allergy (Intermediate, Verified 04/14/20 11:17) PRURITIS, HIVES fluoxetine [Fluoxetine] Allergy (Unknown, Verified 04/14/20 11:17) Other, not listed metformin Adverse Reaction (Severe, Verified 04/14/20 11:17) LACTIC ACIDOSIS NSAIDS (Non-Steroidal Anti-Inflamma Adverse Reaction (Severe, Verified 04/14/20 11:17) GI Upset metoclopramide [Metoclopramide] Adverse Reaction (Intermediate, Verified 04/14/20 11:17) Dyskinesia Medications acetaminophen (Tylenol Extra Strength) 1,000 mg PO Q6HRS PRN albuterol sulfate 90 mcg/actuation (Ventolin HFA) 2 puffs INH Q4HPRN PRN MDD 6 x albuterol sulfate 2.5 mg NEB Q4HPRN MDD 6 alprazolam (Xanax) 0.25 mg PO TIDPRN MDD 3 ascorbic acid (vitamin C) PO aspirin 81 mg PO QDAY atorvastatin 40 mg PO QPM azithromycin 500 mg PO QMWF blood sugar diagnostic ([employer] Verio test strips) Use strips to test sugar before meals and at bedtime budesonide inhalation cyanocobalamin (vitamin B-12) (Vitamin B-12) 500 mcg PO DAILY enalapril maleate 2.5 mg PO DAILY epinephrine (EpiPen) 0.3 mg (0.3 mL) IM 1T ergocalciferol (vitamin D2) (Vitamin D2) 50,000 units PO 1XW MDD 1 esomeprazole magnesium TAKE ONE CAPSULE BY MOUTH TWICE A DAY ethambutol 1,600 mg PO QDAY famotidine TAKE ONE TABLET BY MOUTH AT BEDTIME ferrous sulfate ER (iron ER) 325 mg PO BID fluticasone propion-salmeterol 113-14 mcg/actuation inhalation folic acid PO gabapentin TAKE ONE CAPSULE BY MOUTH THREE TIMES A DAY immun glob G(IgG)-pro-IgA 0-50 1 gram/5 mL (20 %) (Hizentra) 20 grams subcut QWEEK insulin glargine (Basaglar KwikPen U-100 Insulin) 65 units (0.65 mL) subcut HS insulin lispro (Humalog KwikPen (U-100) Insulin) 1 unit (0.01 mL) subcut QACHS ipratropium-albuterol 0.5 mg-3 mg(2.5 mg base)/3 mL 3 mL inhalation QID MDD 4 Lactobacillus acidophilus PO lancets (Diwanee Lancets) to be used AC and HS loratadine TAKE ONE TABLET BY MOUTH EVERY DAY FOR ALLERGIC RHINITIS methotrexate sodium PO montelukast TAKE ONE TABLET BY MOUTH AT BEDTIME FOR ALLERGIC RHINITIS multivitamin (Daily Multi-Vitamin) 1 tab PO DAILY pen needle,diabetic dual safty (BD AutoShield Duo Pen Needle) MDD 5 pyridostigmine bromide (Mestinon) 60 mg PO QID MDD 4 rifampin 300 mg PO QDAY ropinirole 2 mg PO BID sertraline 100 mg PO QDAY topiramate (Topamax) 100 mg PO BID umeclidinium 62.5 mcg/actuation (Incruse Ellipta) 1 inh inhalation QDAY zinc 50 mg PO QDAY Fall Risk History of falls: No Ambulatory Aid:: None Gait/Transferring:: Normal PHQ-2/9 Over the last 2 weeks, how often have you been bothered by any of the following problems? 1. Little interest or pleasure in doing things: not at all 2. Feeling down, depressed, or hopeless: not at all Total score: 0 HIV Testing Offer - ages 13-64 Requirement for HIV testing offer been met?: Not in age range SBIRT Annual Questionnaire Are you currently in recovery for alcohol or substance use?: No How many times in the past year have you had 4 or more drinks in a day?: None How many times in the past year have you used a recreational drug or used a prescription medication for nonmedical reasons?: None Do you need a note to return Do you need a note to return to daycare/school/sports/work: No Coronavirus Screening Screening Have you traveled outside of [facility] or [facility] in the last 14 days.: No Has patient experienced coronavirus symptoms: No ON LICENSE OF [facility] Medical History (Updated 05/30/20 @ 18:14 by Lindsay Chapman DO) Allergic rhinitis Anxiety and depression Aspiration pneumonia due to regurgitated gastric secretions Asthma w/ status asthmaticus Atrophic vaginitis Benign familial tremor Bilateral pneumonia Bronchiectasis Chronic fatigue syndrome Chronic pansinusitis Common variable immunodeficiency (02/02/16) Depression with anxiety Diabetes mellitus E-coli UTI EKG abnormalities Enterobacter cloacae pneumonia Eustachian tube dysfunction Ex acerbation of asthma Gastroparesis GERD (gastroesophageal reflux disease) Heme positive stool Herpes zoster Hiatal hernia Hypertension, essential Hypoglycemia associated with diabetes Influenza A Influenza B (09/06/17) Lactic acidosis (02/05/17) Mild vitamin D deficiency Mixed hyperlipidemia Mixed stress and urge urinary incontinence multiple gastric ulcers-[facility] scope -8- (05/18/18) Myasthenia gravis Mycobacterium avium infection Nausea ( 12/19/18) DMITRI on CPAP Postmenopausal Pulmonary hypertension Pulmonary nodules Severe persistent asthma dependent on systemic steroids with acute exacerbation Sinobronchitis SOB (shortness of breath) Temporal mandibular joint disorder Viral upper respiratory infection Surgical History Cataract extraction status, right eye History of - surgery History of - surgery (05/18/18) History of carpal tunnel surgery History of colonoscopy History of hysterectomy History of sinus surgery (03/09/18) Status post oophorectomy Family History Mother Liver cell carcinoma Father No problems noted. Sister Diabetes Hyperlipidemia Hypothyroidism Carcinoma of breast, Onset Age: 30 Sister Carcinoma of breast, Onset Age: 50 Other Carcinoma of colon Social History Does the Patient have a Healthcare Proxy: Yes (/sister) Does Patient have a DNR?: No Does Patient have a Living Will?: No Does the Patient have a MOLST?: No Advance Directives on File or in chart?: No household members: spouse housing: house marital status: lives independently: Yes number of children: 4 number of grandchildren: 13 highest education level completed: some college, no degree service: No current occupational status: unemployed current occupation: disabled current occupational exposures/hazards: No pets and animals: Yes Hx Recent Travel (where): No do you think of yourself as: straight/heterosexual well-balanced diet: about half the time high-fat food intake: 3 or more times/day daily servings fruits/ve-4 daily servings of milk/calcium: 2-4 eating out: rarely or never reads food labels: usually or always during the past year weight has: remained stable what type of physical activity do you participate in?: walking Smoking Status: Never smoker alcohol intake: never substance use type: does not use ayan/tenriism: Buddhist seatbelt use: always drive intox or ride w/ intox 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 working smoke detector in home: Yes fire extinguisher in home: No carbon monox detector in home: No firearms in home: Yes firearms unloaded and locked: Yes do you feel safe at home: No victim of physical abuse: No victim of emotional abuse: No victim of sexual abuse: No would you like helpful sources: No HPI Additional HPI HPI Details: Given her history of immunosuppression with methotrexate for her myasthenia, MAC pneumonia, persistent asthma, diabetes and other chronic medical problems patient requested telemedicine visit due to the outbreak of Covid in the community, she did about 2 weeks ago get blood work and A1c is 6.6 her BUN and creatinine are normal glucose is 80 alk phos is 132 triglycerides 134 cholesterol 169 LDL 58 HDL 85 vitamin D 60 she continues to follow with Dr. Ambriz for management of her persistent asthma and her sleep ap dilan is managed by her neurologist Dr. Wilkinson he also manages her myasthenia gravis. She follows with suction worker for her immunodeficiency and still takes weekly injections of IVIG. 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 Her asthma has improved. She follows with cardiology group and also follows with [facility] and just had cataract surgery. She follows with me for her anxiety and depression and her diabetes hyperlipidemia and vitamin D deficiency. She also follows with [facility] for her gastroparesis hiatal hernia and reflux she has been scoped she is due for her mammogram but wants to postpone until the Covid situation is better which is reasonable. Phone call started at 6 PM ended at 625 Review of Systems Const All systems reviewed are unremarkable except as noted in HPI and below Reports as per HPI, Denies chills, Denies daytime sleepiness, Denies difficulty sleeping, Denies excessive sweating, Reports fatigue, Denies fever(s), Denies frequent falls, Denies headache(s) and Reports lethargy Details: FBS 87-147..supper ranges 117-180,HS 150-222 WEARING CPAP EVERY NIGHT NO NEW FALLS Eyes Reports as per HPI, Denies blurry vision, Denies decreased night vision, Denies eye discharge, Reports dry eyes, Reports irritation, Reports itchy eyes, Reports requires corrective lenses and Denies seeing flashes Details: wearing glasses just to read ENT Reports as per HPI, Denies dysphagia, Denies vertigo, Denies dizziness, Reports dry mouth, Denies headache(s), Denies hoarseness, Denies lip swelling, Reports nasal congestion, Reports nasal discharge, Denies odynophagia, Reports disequilibrium, Reports post nasal drip, Denies tinnitus, Denies sinus pain, Denies sinus pressure, Denies throat swelling and Denies tongue swelling Details: STOPPED FLONASE AND EVER SINCE SHE DID SHE IS MORE STUFFY SO SINCE SHE ALSO TAKES SINGULAR AND CLARITIN I ADVISED SHE RESTART FLONASE AND DISCUSS AT N EXT ALLERGY CHECK UP Card Reports as per HPI, Denies chest pain, Denies chest pain with activity, Denies pedal edema, Denies edema, Denies irregular heart rhythm, Denies claudication, Denies leg ulcers, Denies leg edema, Denies lightheadedness, Denies palpitations, Denies dyspnea, Reports dyspnea on exertion and Denies orthopnea Resp Reports as per HPI, Denies chest congestion, Reports cough, Denies hemoptysis, Denies dyspnea, Reports dyspnea on exertion and Denies wheezing Details: SEEING DR AMBRIZ AND DR ANDRADE BOTH GI Reports as per HPI, Denies abdominal pain, Reports belching, Reports bloating, Denies hematochezia, Denies change in bowel habits, Denies constipation, Denies dysphagia, Reports early satiety, Reports heartburn, Denies loose stools, Denies nausea, Denies odynophagia and Denies vomiting Details: SAW Rosalind FOR GATROPARESIS AND HEME POSITIVE STOOL AND HE DOES NOT WANT TO SCOPE HER BUT JUST FOLLOW LABS SHE SAYS HE SUSPECTS ITS FROM GASTRITIS LIKE I SAID LAST VISIT Genitourinary: Reports as per HPI, post void dribbling, nocturia, urinary frequency, urinary incontinence, urinary urgency and vaginal dryness; Denies hematuria, difficulty voiding, dysuria or urinary hesitancy Musc Reports as per HPI, Reports abnormal gait, Reports numbness, Reports stiffness and Reports tingling Skin/Breast Reports as per HPI, Denies breast pain, Denies breast mass, Reports dry skin, Denies pruritus, Denies rash, Denies skin ulcer, Denies sores, Denies unusual bruising and Denies wounds Neuro Reports as per HPI, Reports abnormal gait, Denies vertigo, Denies dizziness, Denies frequent falls, Denies headache(s), Denies localized weakness, Reports numbness, Reports restless legs, Denies seizure-like activity, Reports tingling, Reports paresthesias and Reports disequilibrium Psych Reports as per HPI, Reports abnormal sleep pattern, Reports anxiety, Reports depression, Denies irritability, Denies anhedonia, Denies mood swings, Denies panic attacks, Denies homicidal ideation and Denies suicidal ideation Endo Reports as per HPI, Denies excessive sweating, Reports fatigue, Denies flushing, Reports heat intolerance, Denies polydipsia, Denies polyuria and Denies palpitations Ryan /Lymph Reports as per HPI, Denies easy bleeding and Reports easy bruising Details: Says she did see representative government relations down in [place] and he feels her heme positive stool is likely from her gastritis does not recommend she have another colonoscopy he will see her back in 3 months Aller/Immun Reports system reviewed and no additional complaints, except as documented, Reports GI upset with certain foods, Denies urticaria, Reports itchy eyes, Denies lip swelling, Reports seasonal rhinorrhea, Denies throat swelling, Denies tongue swelling and Denies wheezing Assessment Plan Assessment Plan (1) 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 She has been back to see her representative government relations partly because of her gastroparesis and partly because of heme positive stool. I do not have his report but she tells me he is not planning to scope her or change anything and we will just see her again in the spring. Her A1c is improved significantly it is back in normal range at 6.6. Given her history of lows I do want her now that she is much better controlled to monitor for lows she denies anything down under 80 range but she is to monitor closely checking 3 times a day for now we will leave her current insulin dose as it is she is due for diabetic foot exam but since she did not come in we will do another visit. She says she did go back to the eye doctor so even though we do not have a report says she is up-to-date. She had her cataract surgery and it went well so she is obviously had several recent eye exams and we just need to get the report her overall control is improved significantly discussed fall prevention discussed skin care discussed foot care (2) Allergic rhinitis: Status: Chronic SNOMED Code(s): 93509374 Category: Medical Plan - Lindsay Chapman, DO: She does follow with suction worker so she can certainly discuss her breakthrough symptoms with the suction worker but I think they are likely due to the fact she tried to come off Flonase does not really like using a nose spray but within about a week of stopping it her symptoms flared I encouraged her to go back on it and keep taking her Singulair and Claritin continues to take IVIG and injections at home weekly for her immunodeficiency she did get her flu shot (3) Heme positive stool: Status: Acute Comment: Patient has seen both Dr. Anderson and Dr. Guerra for endoscopy but too ill at this point with MAC to have colonoscopy -but will need panendoscopy once she improves-feels its upper GI and does not need repeat scope Dale Code(s): R19.5 - Other fecal abnormalities SNOMED Code(s): 96588875 Category: Medical Plan - Lindsay Chapman, DO: Patient generally follows with Dr. 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 she would probably be scheduled for upper and lower scopes but that is not his plan according to the patient will send for his note she says he is just going to monitor her blood counts and see her back in the spring, her reflux symptoms breakthrough even on Nexium but Nexium she feels the best I am hoping to get this note from GI in terms of her hiatal hernia gastroparesis reflux and since recently her Nexium has been denied 3 times may be the gastroenterology note will help us get it approved currently it has been denied patient is aware only other option would be for her to buy it out of pocket which she really cannot afford (4) Depression with anxiety: Status: Chronic Code(s): F41.8 - Other specified anxiety disorders SNOMED Code(s): 225585599 Category: Medical Plan - Lindsay Chapman, DO: For long as I know her she always has some anxiety and depression but she talked about her gra nddaughter visiting talked about getting ready for her granddaughter's wedding they are keeping it small she is looking forward to the holidays he always has some family stress but it sounds like it is fairly minimal at the present (5) Mixed hyperlipidemia: Status: Chronic Code(s): E78.2 - Mixed hyperlipidemia SNOMED Code(s): 849532430 Category: Carine Chapman, DO: Stable on statin preferably keep LDL under 70 but at least under 100 (6) Mild vitamin D deficiency: Status: Chronic Comment: Vitamin D was in good range she will continue her current dose Code(s): E55.9 - Vitamin D deficiency, unspecified SNOMED Code(s): 28155614 Category: Carine Huitron, DO: Stable on present dose recheck in 3 months (7) Hypertension, essential: Status: Chronic SNOMED Code(s): 28736648 Category: Carine Chapman, DO: Stable and she does spill microalbumin so we have her on renal protection with enalapril diet and exercise discussed Orders Instructions: Type 2 Diabetes in Adults: New Diagnosis (GEN) <Electronically signed by Lindsay Chapman DO> 05/30/20 3394 Name Value Range Interpretation Code Description Data Sarah rce(s) Supporting Document(s) ID Date Data Source [id number] 05/16/2020 12:45:00 PM EST [facility] Name Value Range Interpretation Code Description Data Sarah rce(s) Supporting Document(s) Follow Up [facility] [id number] gMy [file] [id number] [file] [id number]/Luis Carlos 2o2EE7HjCtbI//2s54Y9KoyLI9FCsL3hlOlBXBo9/p 2nXY/b+KNObXgjTcEx1gdORNCDg9UTBG3moLV54sbLBSpyk6/ztFK0jO7Ksd5MyQNIci9eiyQ2xF1bTs fo1s9uGIQ971tTEQ9jg9ooizrJPpNjkkpr51MRt2+4YvkaxuQGUabUyeK9A+ykHqZZ7vM4pBAxkvikIt V9p9Rqd9K6goMQVXta04KWRWF2gIohj9ugVBTcCRk1 IHIsHbWP1rnxCloxCOomhsAdUofSdGHy0niLBEpZ/zMPv3IyRNnmZPnIEZZ1Wkn4GUzyRBUAmtL5QtXP a/0PGw2/9t+bSQck4lpRMhSWFxOb/uBKrI6jzwGsuLgzFZs7RUka0PvVbCHr33wZ1DtRb5zQaOeMDaU0 Jv8KLTwILds55q0Y8xURfSbEMa4KbtP5wO4cxy5qDc JimI6kbc6/WNj/B/7oxd76MifZMcRHbi1+MBlgWY6MR5QuoPOICrsae5ZaKGtEyJik+4m8jSdspl8USm nWz6AWAtTExl7WPfADFIaaYP8sE54nc3w72/ekqKe20eC+OOrzSvWxWPZva9BVllePUEWOYk/6jjsFlI AfVJXtAyNR9O0DnediMGkrDZtrvTHgTWj2hK7k67qT vKXr3DKp+3wzBM86yRQ3wsSzTuoUrw/Ke9y8LovmoA4cyJl4LrlH1MdWUCo4FNx0u4iCDjG/TpVbgEad PfIVwl69c1efjOaIuz8MP+30mkn+5u0yQFmqPVNm17JS/1ps+NVH4Cx4lx+AVek4tOSuh+KzDBYPc/ZJ m5t7Pk5F3AqoLHTjOJAdmqgklidi7SEjWjvwP5W+v9 0pRt+J7P3Qaz0VpvRzcn1wvJimrGsfw2MdeYeSv3/Rico+Vt68K9+cxc9CmyWjvwkex7Ey9+y0OYCVOY4G [file] e/n+fUU+NLhV6tGDzqiHpchcmYsDs7mCGWFv/p4/Nurses Supervisor [file] lV0fPkxKaNhV6Y9zp4c0VJwOKBU5+SUPERVISOR TICKET SALES+aYEC6aNRM3MGmup+Yeekd8iZ3rCdm5hGweif7T6oWB1ZZ7RY [file] 6nmN/9Y9twq9+cfBjF6iahNRDl56D4bznRzmC3/BROOM BUILDER [file] López/sMnjNqIhuV2UGYRk4K4+k8Ja/8cMq0uSw6vJlfgPiMS4g7LJ8zRjhUkezq5QJEVlAHmbQyqGKmZX [file] f+gPza2d4VPxiz3Ey+OI3sw4kpKD1zY+E/6Pe [file] fEStk7dUweEZhpq/cH1XTG7CH5rklR01MYDoCi0hQEUqsG7X+Jose Ramon/eh5jAR3rB/iGMdOd3uEjNkxXa5p [file] PZXKNkNplKHz7eF8jUqQksadHlFeP2Of4YQV0H7VZZut36GQ3Qx+6FSLwGatTPh8daE+fM2PD4mpb/DEL TORO vMuJa89GUxxlWAjsjtp8lK3J0n9wfyj+Mc6ecTPSnr l6Lv4N1Z15cV8adTlYEZvrl47dr5wfuJG6ir2w85QRTqOsXXdc6UUUMx8gx09/JmloCHa3Zd8Bys93U8 mutZCzW0llKE+6xvAXQGatBxz4CmbfXR4mlxPex9K3g42x2XHmgp3PgB+galilea+T1y5sqEV40eAPX2r3ZG [file] bitumastic applier/VS0FUxSLnGkqMCcQXpMx5RffGwm+aWtQC/Wz5RJ+90gFo1y7y8KW6UJJB58sV/XIRw4hEuVmYY1D1 [file] gQ3D5LKQ21J4+6f/725Dy7OCHt05JkJTulU9p8hlx1 W8aBb/kitciQ6HX49sRyZUTXjUNkCbGvH0DFnXx2L88C+amA4siVGq9FpbmA9+K+aOYLHnE2dyb8Ffe2 PBQ6JJNtqHmt0CGuRP4ArOKtcOty6+noLT+u2LrlmSu8UnCufnRBe6TqEnvbksYgof8jGO1o8td309WI 7mJfTGx2mpYK/+lYt51jWvi+yxRAMU0F8WWaRVYyPB AuCXtO5ZcW22EHa4o37fjG1kkbG//3tBzDDhASQW0qEdUggzYI3oJ3FCbMBAvzfSEYV/dq88wKQgOJXI BBYFOu5BQ4gP9nW/5+wPRfWGMYs40f1Ycwf6LSY4hyumCJGg++XtB6G142CYX1IrckZedW7ERQTNcVt9 NIqBjqAyISSgUudTCZbXPKS/0geZoMAyI3C6Hi6EGg AVr8Om0v7Fa9NBF31SKNKzbYlVXziMG6pmh0jSy3r0wUnS214FeaBsoYCzkFx7oRxcOheIZPsxTnwQzY p1WjaZ/AQU7HxkkSQaxWazkvvuQS/at2zuZjNjwXftDk1H1R9UyrkinlwxYdhTj53Gxo/aQWrP3Xbj45 fsKSgS9EEUDe8/eZRvFBc/TZzXz2qILslruTH4uIDq FPRpttjaqL+mBqRG0tBq/1dTTKGRlqa2uWr5GwkM4T7bupq5Gd5FFRjd5lytiuuGEHe50+search marketing coordinator+3NquZ8 [file] WSWQm68VW5BvuA+Jose R/+z4YsI2Sg/vvBeFGkszflPdv1oIe36DY6AdZA6ME9e5oYKl3/bYfCrnxiEZ0d [file] nvQ0/TsVwdemifNbqIw7RJUn6rQlKSuzFKaX6O+residential remodeling subcontractor [file] Veneer Drier Tailer/H7lFQAOkNhrz/FcvPcS04Oho1HzdiByojtntRDgY2XlwJpTROZTxcYewAOoAQsS0tY0qDpaKkT4S [file] +Sxeq+SUPERVISOR TICKET SALES/jnJIDUEpm1VAJbx/734g8RjV2DWHif4Ye [file] Nurses Supervisor/lq1p8eUbJBcTbLYw1XUYVEwFGTuxSeR/dCmyqS/c6jIkS+3HmOCyOMQrR0aVgMkZu/VHVRWAKjjhe [file] Jose R/Ev7bd9En1DTD+8++Kcu3pGNMrvovXnyksAdpwgam7HLadcJ3BSl6wPQ7PENTI10T/R06csIG5ucz [file] vdeXSZVeJvSudtCumJrata1NZPOlEuDsWau1SaX7Jxhc/WoRaVEVxFm/mGV3ViZejVL8O1l0+4pjd/bitumastic applier [file] global marketing solutions [file] LXusGygjJV9Vu0dQkxyZUKYj7RRk7Yn8p1x4wXqqCs2EhY3+U6huuzqBkXH+v+XbSH8t7JlA+application infrastructure engineer+xMx [file] Cable Splicer Assistant/d/XsYMqYdWGv11eokalZ2W/xEPSzbC7Uz4uegXki+trxSW8ww9F/xMOgsWxrwD/f/lj5tXzPjiEgv [file] s/T2ThpcXk1SYhg+h5YQQQJ1jQs5lqZffy68CrTlTRECf30vy4Sm09PVAomsQgvHX+hruJxtoV3qI+Luis Carlos [file] m+8AXZXUMh+residential director++cXCGJFeUbsHpEpCjvl4IjXB6DS [file] scalder [file] m9VtKU7De9CrpzS7fcOkQInvVZAvNUU3SXvkUNBVKk== ID Date Data Source [id number] 05/13/2020 09:09:00 [place] [address] OPERATIVE SUMMARYNAME: RENATA Thrasher DATE OF : 1960TTENDING PHYS: Henna Moreira MD DATE: 04/30/20 MR#: [id number] OF PROCEDURE: 04/30/2020PREOPERATIVE DIAGNOSIS: Cataract, left eye.POSTOPERATIVE DIAGNOSIS: Cataract, left eyePROCEDURE: Phacoemulsification with cataract removal with the help of ORA, IOL lens useAUOOTO 19 diopter.SURGEON: Henna Moreira MD.DEVELOPMENT TEAM LEAD: None.COMPLICATIONS: None.INDICATIONS: Decreased vision interfering with daily activities.DETAILS OF PROCEDURE:Patient was brought to the operating room and laid in the supine position. The eye was prepped anddraped in a sterile fashion for ophthalmic surgery, following which a lid speculum was placed. Aside port incision was made and Viscoat was injected into the anterior chamber. A cornea incisionwas made with a 2.4 mm Keratome, followed by a capsulorhexis. Higher dissection was carried outwith a balanced salt solution followed by phacoemulsification in a ibtnfw-pav-oltjvys methodwithin the capsular bag. Excess cortical material was then aspirated using irrigation and aspirationcannula. Visco was then placed into the capsular bag and intraocular lens was inserted aftermultiple ORA calculations were reviewed and power was chosen. Intraocular lens used wasAUOOTO power 19 diopter. Excess Viscoelastic w as then aspirated. The wound was hydrated.Intracameral antibiotics and subtenon steroid injections were given. The speculum was removedand the patient was returned to the recovery room in stable condition.DD: Henna Moreira MD 05/13/20 08:16 1 [place] [address] OPERATIVE SUMMARYNAME: RENATA Thrasher DATE OF : 8ATTENDING PHYS: Henna Moreira MD DATE: 04/30/20 MR#: [id number]: ERNIE 05/13/20 09:07DS: Henna Moreira MD 05/15/20 16:33 2 Name Value Range Interpretation Code Description [facility] Document[facility]s) ID Date Data Source [id number] 05/13/2020 12:04:00 PM [facility] Name Value Range Interpretation Code Description Data [facility] rce(s) Supporting Document(s) Hemoglobin A1c % 6.6 % 4.0-6.0 Above high normal L [facility] The following ranges may be u sed for interpretation of results: HGBA1C degree of glucose control: Greater than 8%: Action Suggested * Less than 7%: Goal of Diabetic Therapy Less than 6%: NormalFactors such as duration of diabetes, adherence to therapyand the age of the patient should also be considered inassessing the degree of blood glucose control.* High risk of developing residential complications such asretinopathy, nephropathy, neuropathy, cardiopathy, etc. Some danger of hypoglycemic reaction in Type I diabetics.Some glucose intolerant individuals and "Sub Clinical"diabetics may demonstrate HGBA1C levels in this area. Glucose mean value [Moles/volume] in Blood Estimated f rom glycated hemoglobin 143 mg/dL [facility] An A1C of 7% - the goal of diabetic ther apy - is equivalentto an EAG of 154 mg/dl. ID Date Data Source [id number] 05/13/2020 12:34:00 PM EST Name Value Range Interpretation Code Description Data Sarah rce(s) Supporting Document(s) Urea nitrogen [Mass/volume] in Serum or Plasma 13 mg/dL 9-23 N Sodium [Moles/volume] in Serum or Plasma 141 mmol/L 132-146 N Potassium [Moles/volume] in Serum or Plasma 5.1 mmol/L 3.5-5.5 [facility] Chloride [Moles/volume] in Serum or Plasma 112 mmol/L 99-109 Above high normal Carbon dioxide, total [Moles/volume] in Serum or Plasma 22 mmol/L 20 -31 N Anion gap in Serum or Plasma 12 mmol/L 8-16 [facility] Glucose [Mass/volume] in Serum or Plasma 80 mg/dL 74-106 N Creatinine 0.9 mg/dL 0.5-1.1 [facility] Glomerular filtration rate/1.73 sq M.pre dicted [Volume Rate/Area] in Serum or Plasma Greater Than 60 ABOVE 60 Alanine aminotransferase [Enzymatic acti vity/volume] in Serum or Plasma by With P-5'-P 22 U/L 10-49 [facility] ital Aspartate aminotransferase [Enzymatic ac tivity/volume] in Serum or Plasma by With P-5'-P 19 U/L 0-33 [facility] pital Alkaline phosphatase [Enzymatic activity/volume] in Serum or Plasma 132 U/L 45-129 Above high normal Calcium [Mass/volume] in Serum or Plasma 9.2 mg/dL 8.5-10.1 [facility] Bilirubin.total [Mass/volume] in Serum or Plasma 0.4 mg/dL 0.3-1.2 [facility] Albumin [Mass/volume] in Serum or Plasma by Bromocresol purple (BCP) dye binding method 3.5 g/dL 3.2-4.8 [facility] Protein [Mass/volume] in Serum or Plasma 7.5 g/dL 5.7-8.2 N ID Date Data Source [id number] 05/14/2020 07:26:00 AM [facility] Name Value Range Interpretation Code Description Data Sarah rce(s) Supporting Document(s) 25-Hydroxyvitamin D2+25-Hydroxyvitamin D3 [Mass/volume ] in Serum or Plasma 60 ng/mL 30-100 [facility] l Vitamin D Status 25-OH Vitamin D :Deficiency: <20 ng/mLInsufficiency: 20 - 29 ng/mLOptimal: > or = 30 ng/mLFor 25-OH Vitamin D testing on patients onD2-supplementation and patients for whom quantitationof D2 and D3 fractions is required, the QuestAssureD(TM)25- OH VIT D, (D2,D3), LC/MS/MS is recommended: ordercode 17219 (patients >2yrs).See Note 1Note 1For additional information, please refer tohttp://education.[employer]/faq/XYK174(This link is being provided for informational/educational purposes only.)THIS TEST WAS PERFORMED AT:[employer] [address]AHSAN CANSECO MD ID Date Data Source [id number] 05/13/2020 12:34:00 PM [facility] Name Value Range Interpretation Code Description Data Sarah rce(s) Supporting Document(s) Triglycerides 134 mg/dL 0-150 [facility] Cholesterol 169 mg/dL 120-200 [facility] HDL Cholesterol 85 mg/dL [facility] HDL Less than 40 mg/dL: Major risk for CHDHDL Greater than 59 mg/dL: Low risk for CHD LDL Cholesterol, Calc 58 mg/dL 0-100 N [facility] ID Date Data Source [id number] 05/13/2020 11:35:00 AM [facility] Name Value Range Interpretation Code Description Data Sarah rce(s) Supporting Document(s) Leukocytes [#/volume] in Blood by Automated count 6.8 10*3/uL 4.45-10 .71 N Erythrocytes [#/volume] in Blood by Automated count 3.95 10*6/uL 4.20-5.40 Below low normal Hemoglobin [Moles/volume] in Blood 12.7 g/dL 10.7-15.4 N Hematocrit [Volume Fraction] of Blood by Automated count 41.4 % 3 7-47 N Erythrocyte mean corpuscular volume [Ent itic volume] in Cord blood by Automated count 104.8 fL 80-96 Above high normal [facility] Erythrocyte mean corpuscular hemoglobin [Entitic mass] by Automated count 32.2 pg 27-31 Above high normal [facility] spital Erythrocyte mean corpuscular hemoglobin concentration [Mass/volume] in Cord blood 30.7 g/dL 33-37 Below low normal [facility] Erythrocyte distribution width [Entitic volume] by Automated count 14 % 11-15 N Platelets [#/volume] in Blood by Automated count 288 10*3/uL 130-472 N Platelet mean volume [Entitic volume] in Blood 9.3 fL 9.1-13.1 N Neutrophils/100 leukocytes in Blood by Automated count 60.1 % 41- 77 N Neutrophils [#/volume] in Blood by Automated count 4.1 U 1.7-7.6 N Lymphocytes/100 leukocytes in Blood by Automated count 28.9 % 14- 46 N Lymphocytes [#/volume] in Blood by Automated count 2.0 U 0.6-4.6 N Monocytes/100 leukocytes in Blood by Automated count 7.9 % 4-12 N Monocytes [#/volume] in Blood by Automated count 0.5 U 0.2-1.2 N Eosinophils/100 leukocytes in Blood by Automated count 2.0 % 0-7 N Eosinophils [#/volume] in Blood by Automated count 0.1 U 0.0-0.5 N Basophils/100 leukocytes in Blood by Automated count 0.7 % 0.4-1 .3 N [facility] Basophils [#/volume] in Blood by Automated count 0.1 U 0.0-0.2 N NUCLEATED RED BLOOD CELL 0 % NUCLEATED RED BLOOD CELL# 0 U [facility] Immature granulocytes [Presence] in Blood by Automated count 0-2 N Immature granulocytes [#/volume] in Blood by Automated count 0.0 U 0-0.1 N Manual Differential panel - Blood NO ID Date Data Source [id number] 05/13/2020 10:44:00 AM EST [facility] ([facility]) Name Value Range Interpretation Code Description Data Sarah rce(s) Supporting Document(s) 25-Hydroxyvitamin D2+25-Hydroxyvitamin D3 [Mass/volume ] in Serum or Plasma 60 ng/mL 30-100 [facility] ([facility]) <content>Vitamin D Status 25-OH Vitamin D:</content>
<content>Deficiency: <20 ng/mL</content>
<content>Insufficiency: 20 - 29 ng/mL</content>
<content>Optimal: > or = 30 ng/mL</content>
<content>For 25-OH Vitamin D testing on patients on</content>
<content>D2-supplementation and patients for whom quantitation</content>
<content>of D2 and D3 fractions is required, the QuestAssureD(TM)</content>
<content>25-OH VIT D, (D2,D3), LC/MS/MS is recommended: order</content>
<content>code 71095 (patients >2yrs).</content>
<content>See Note 1</content>
<content>Note 1</content>
<content>For additional information, please refer to</content>
<content>http://education.[employer].Wanderable/faq/XUR114</cont ent>
<content>(This link is being provided for informational/</content>
<content>educational purposes only.)</content>
<content>THIS TEST WAS PERFORMED AT:</content>
<content>[facility]</content>
<content>[address]</content>
<content>[place] [address]</content>
<content>AHSAN CANSECO MD</content>
<content></content> ID Date Data Source [id number] 05/13/2020 10:44:00 AM EST [facility] ([facility], ) Name Value Range Interpretation Code Description Data Sarah rce(s) Supporting Document(s) Triglyceride [Mass/volume] in Serum or Plasma 134 mg/dL 0-150 [facility] ([facility], ) Cholesterol [Mass/volume] in Serum or Plasma 169 mg/dL 120-200 [facility] ([facility]) Cholesterol in LDL [Mass/volume] in Serum or Plasma by calcu lation 58 mg/dL 0-100 [facility] ([facility], ) Cholesterol in HDL [Mass/volume] in Serum or Plasma 85 mg/dL [facility] ([facility]) HDL Less than 40 mg/dL: Major risk for CHD HDL Greater than 59 mg/dL: Low risk for CHD ID Date Data Source [id number] 05/13/2020 10:44:00 AM EST [facility] ([facility], ) Name Value Range Interpretation Code Description Data Sarah rce(s) Supporting Document(s) Urea nitrogen [Mass/volume] in Serum or Plasma 13 mg/dL 9-23 [facility] ([facility], ) Sodium [Moles/volume] in Serum or Plasma 141 mmol/L 132-146 [facility] ([facility], ) Potassium [Moles/volume] in Serum or Plasma 5.1 mmol/L 3.5-5.5 [facility] ([facility], ) Carbon dioxide, total [Moles/volume] in Serum or Plasma 22 mmol/L 20 -31 [facility] ([facility], ) Chloride [Moles/volume] in Serum or Plasma 112 mmol/L 99-109 [facility] ([facility], ) Anion gap in Serum or Plasma 12 mmol/L 8-16 [facility] ([facility], ) Glucose [Mass/volume] in Serum or Plasma 80 mg/dL 74-106 [facility] ([facility]) Glomerular filtration rate/1.73 sq M.pre dicted [Volume Rate/Area] in Serum or Plasma Laboratory test result [facility] ([facility]) Creatinine 0.9 mg/dL 0.5-1.1 [facility] ([facility]) Alanine aminotransferase [Enzymatic acti vity/volume] in Serum or Plasma by With P-5'-P 22 U/L 10-49 [facility] ([facility]) Alkaline phosphatase [Enzymatic activity/volume] in Serum or Plasma 132 U/L 45-129 [facility] ([facility]) Aspartate aminotransferase [Enzymatic ac tivity/volume] in Serum or Plasma by With P-5'-P 19 U/L 0-33 [facility] ([facility], ) Calcium [Mass/volume] in Serum or Plasma 9.2 mg/dL 8.5-10.1 [facility] ([facility]) Bilirubin.total [Mass/volume] in Serum or Plasma 0.4 mg/dL 0.3-1.2 [facility] ([facility]) Protein [Mass/volume] in Serum or Plasma 7.5 g/dL 5.7-8.2 [facility] Albumin [Mass/volume] in Serum or Plasma by Bromocresol purple (BCP) dye binding method 3.5 g/dL 3.2-4.8 [facility]) ID Date Data Source [id number] 05/13/2020 10:44:00 AM EST [facility] ([facility]) Name Value Range Interpretation Code Description Data Sarah rce(s) Supporting Document(s) Glucose mean value [Moles/volume] in Blood Estimated f rom glycated hemoglobin 143 mg/dL [facility] ([facility] ) An A1C of 7% - the goal of diabetic ther apy - is equivalent to an EAG of 154 mg/dl. Hemoglobin A1c/Hemoglobin.total in Blood 6.6 % 4.0-6.0 [facility] ([facility]) The following ranges may be used for [...] glucose control. * High risk of developing intermediate frame tender complications such as retinopathy, nephropathy, neuropathy, cardiopathy, etc. Some danger of hypoglycemic reaction in Type I diabetics. Some glucose intolerant individuals and "Sub Clinical" diabetics may demonstrate HGBA1C levels in this area. ID Date Data Source [id number] 05/13/2020 10:44:00 AM EST [facility] ([facility], ) Name Value Range Interpretation Code Description Data Sarah rce(s) Supporting Document(s) Leukocytes [#/volume] in Blood by Automated count 6.8 10*3/uL 4.45-10 .71 [facility] ([facility]) E78.2,R19.5,E11.8,E55.9,A31.0,K92.1 Hemoglobin [Moles/volume] in Blood 12.7 g/dL 10.7-15.4 [facility] ([facility]) E78.2,R19.5,E11.8,E55.9,A31.0,K92.1 Erythrocytes [#/volume] in Blood by Automated count 3.95 10*6/uL 4.20 -5.40 [facility] ([facility]) E78.2,R19.5,E11.8,E55.9,A31.0,K92.1 Hematocrit [Volume Fraction] of Blood by Automated count 41.4 % 3 7-47 [facility] ([facility]) E78.2,R19.5,E11.8,E55.9,A31.0,K92.1 Erythrocyte mean corpuscular volume [Ent itic volume] in Cord blood by Automated count 104.8 fL 80-96 [facility] ([facility]) E78.2,R19.5,E11.8,E55.9,A31.0,K92.1 Erythrocyte mean corpuscular hemoglobin [Entitic mass] by Automated count 32.2 pg 27-31 [facility] ([facility]) E78.2,R19.5,E11.8,E55.9,A31.0,K92.1 Erythrocyte mean corpuscular hemoglobin concentration [Mass/volume] in Cord blood 30.7 g/dL 33-37 [facility] ([facility], ) E78.2,R19.5,E11.8,E55.9,A31.0,K92.1 Platelets [#/volume] in Blood by Automated count 288 10*3/uL 130-472 [facility] ([facility]) E78.2,R19.5,E11.8,E55.9,A31.0,K92.1 Erythrocyte distribution width [Entitic volume] by Automated count 14 % 11-15 [facility] ([facility]) E78.2,R19.5,E11.8,E55.9,A31.0,K92.1 Neutrophils [#/volume] in Blood by Automated count 4.1 U 1.7-7.6 [facility] ([facility]) E78.2,R19.5,E11.8,E55.9,A31.0,K92.1 Neutrophils/100 leukocytes in Blood by Automated count 60.1 % 41- 77 [facility] ([facility]) E78.2,R19.5,E11.8,E55.9,A31.0,K92.1 Platelet mean volume [Entitic volume] in Blood 9.3 fL 9.1-13.1 [facility] ([facility]) E78.2,R19.5,E11.8,E55.9,A31.0,K92.1 Lymphocytes [#/volume] in Blood by Automated count 2.0 U 0.6-4.6 [facility] ([facility]) E78.2,R19.5,E11.8,E55.9,A31.0,K92.1 Lymphocytes/100 leukocytes in Blood by Automated count 28.9 % 14- 46 [facility] ([facility]) E78.2,R19.5,E11.8,E55.9,A31.0,K92.1 Monocytes/100 leukocytes in Blood by Automated count 7.9 % 4-12 [facility] ([facility]) E78.2,R19.5,E11.8,E55.9,A31.0,K92.1 Monocytes [#/volume] in Blood by Automated count 0.5 U 0.2-1.2 [facility]) E78.2,R19.5,E11.8,E55.9,A31.0,K92.1 Eosinophils/100 leukocytes in Blood by Automated count 2.0 % 0-7 [facility] ([facility]) E78.2,R19.5,E11.8,E55.9,A31.0,K92.1 Eosinophils [#/volume] in Blood by Automated count 0.1 U 0.0-0.5 [facility] ([facility]) E78.2,R19.5,E11.8,E55.9,A31.0,K92.1 Basophils [#/volume] in Blood by Automated count 0.1 U 0.0-0.2 [facility] ([facility]) E78.2,R19.5,E11.8,E55.9,A31.0,K92.1 Laboratory test finding (navigational concept) 0 % [facility] ([facility]) E78.2,R19.5,E11.8,E55.9,A31.0,K92.1 Basophils/100 leukocytes in Blood by Automated count 0.7 % 0.4-1 .3 [facility] ([facility]) E78.2,R19.5,E11.8,E55.9,A31.0,K92.1 Immature granulocytes [Presence] in Blood by Automated count 0.4 0-2 [facility] ([facility]) E78.2,R19.5,E11.8,E55.9,A31.0,K92.1 Laboratory test finding (navigational concept) 0 U [facility] ([facility]) E78.2,R19.5,E11.8,E55.9,A31.0,K92.1 Immature granulocytes [#/volume] in Blood by Automated count 0.0 U 0-0.1 [facility] ([facility]) E78.2,R19.5,E11.8,E55.9,A31.0,K92.1 Manual Differential panel - Blood Laboratory test result [facility] ([facility], ) E78.2,R19.5,E11.8,E55.9,A31.0,K92.1 ID Date Data Source [id number] 04/28/2020 08:36:00 [place] [address] OPERATIVE SUMMARYNAME: RENATA Thrasher DATE OF : 1960ENDING PHYS: Henna Moreira MD DATE: 04/09/20 MR#: [id number] OF PROCEDURE: 04/09/2020PREOPERATIVE DIAGNOSIS: Cataract, right eye.POSTOPERATIVE DIAGNOSIS: Cataract, right eyePROCEDURE: Phacoemulsification with intraocular lens implantation using AUOOTO 20diopters along with ORA.SURGEON: Henna Moreira MD.DEVELOPMENT TEAM LEAD: None.COMPLICATIONS: None.INDICATIONS: Decreased vision interfering with daily activities.DETAILS OF PROCEDURE:Patient was brought to the operating room and laid in the supine position. The eye was prepped anddraped in a sterile fashion for ophthalmic surgery, following which a lid speculum was placed. Aside port incision was made and Viscoat was injected into the anterior chamber. A cornea incisionwas made with a 2.4 mm Keratome, followed by a capsulorhexis. Higher dissection was carried outwith a balanced salt solution followed by phacoemulsification in a rbnyuo-buj-niyglvt methodwithin the capsular bag. Excess cortical material was then aspirated using irrigation and aspirationcannula. Visco was then placed into the capsular bag and intraocular lens was inserted aftermultiple ORA calculations were reviewed and power was chosen. Intraocular lens used wasAUOOTO power 20 diopter. Excess Viscoelastic wa s then aspirated. The wound was hydrated.Intracameral antibiotics and subtenon steroid injections were given. The speculum was removedand the patient was returned to the recovery room in stable condition. [address] [place] [address] OPERATIVE SUMMARYNAME: RENATA Thrasher DATE OF : 1960 PHYS: Henna Moreira MD DATE: 04/09/20 MR#: [id number]: Henna Moreira MD 04/26/20 18:07DT: SSR 04/28/20 08:35DS: Henna Moreira MD 05/01/20 13:44 2 Name Value Range Interpretation Code Description Data Sarah rce(s) Supporting Document(s) ID Date Data Source [id number] 04/25/2020 10:03:00 AM EDT [facility] Name Value Range Interpretation Code Description Data Sarah rce(s) Supporting Document(s) SARS-CoV-2 (COVID19) [facility] This lab was ordered by [facility] and reported by [employer]. ID Date Data Source [id number] 04/16/2020 12:54:00 PM EDT "NORMAL" FOR IFOB FECAL OCCULT BLOOD IS "NEGATIVE"THE [employer] iFOB IS AN IMMUNOCHEMICAL FECAL OCCULT BLOODTEST Name Value Range Interpretation Code Description Data Sarah rce(s) Supporting Document(s) IFOB ICT fecal occult bld Positive Abnormal (appli es to non-numeric results) ID Date Data Source [id number] 04/14/2020 09:20:00 AM EDT Patient Name: ISIDRA YANEZ : 1960 Sex: F Pt Unit #: [id number] Location:[facility] Provider: Visit Date/Time: 04/14/20 Primary Insurance: [facility] Secondary Insurance: Self Pay Intake Vital Signs 04/14/20 09:22 Current Height 5 ft 3 in Current Weight 252 lb Weight Measurement Method Standing Scale BMI 44.6 BP 128/62 Blood Pressure Location Lt brachial Position Sitting Respiration 16 Pulse 60 Pulse Strength Normal Pulse Source Pulse Oximeter Temp 98.0 F Temp Source Oral Pulse Oximetry (%) 99 Oxygen Delivery Method room air Intake Visit Reasons: Annual Physical Nurse Note: patient here for annual wellness. last labs were 02/01/20. patient test her sugars 4 times a day and have ranged 92-192 over the past month with most of them in the 120-150 range which is big improvement. last mammo was 05/2019. last bone density was 10/30/15. last foot exam was 02/2019. last eye exam was was back in January just before her eye surgery for cataract. We do not havea copy but she saw Dr Hanna and actually is seeing her again since surgery for recheck just this past week.. IFOB 05/03/19 and was heme positive but she was so sick with MAC it was felt too unsafe to proceed with colonoscopy. She does have representative government relations Dale at [facility] and she does see him on a regular basis. patient has a right cataract extraction on 04/09/20. she is scheduled for herleft cataract extraction on 04/30/20. patient takes new eye drop in the right eye for one month. patient states that her right shoulder hurts at times. this has been going on for "a long time" patient states it kind of comes and goes she denies any injuries. 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 Associate Required: No Accompanied by: Self / Same as Patient Is patient in pain?: No Allergies Sulfa (Sulfonamide Antibiotics) Allergy (Intermediate, Verified 04/14/20 11:17) PRURITIS, HIVES fluoxetine [Fluoxetine] Allergy (Unknown, Verified 04/14/20 11:17) Other, not listed metformin Adverse Reaction (Severe, Verified 04/14/20 11:17) LACTIC ACIDOSIS NSAIDS (Non-Steroidal Anti-Inflamma Adverse Reaction (Severe, Verified 04/14/20 11:17) GI Upset metoclopramide [Metoclopramide] Adverse Reaction (Intermediate, Verified 04/14/20 11:17) Dyskinesia Medications acetaminophen (Tylenol Extra Strength) 1,000 mg PO Q6HRS PRN albuterol sulfate 90 mcg/actuation (Ventolin HFA) 2 puffs INH Q4HPRN PRN MDD 6 x albuterol sulfate 2.5 mg NEB Q4HPRN MDD 6 alprazolam (Xanax) 0.25 mg PO TIDPRN MDD 3 ascorbic acid (vitamin C) PO aspirin 81 mg PO QDAY atorvastatin 40 mg PO QPM azithromycin 500 mg PO QMWF blood sugar diagnostic (Axiatauch Verio test strips) Use strips to test sugar before meals and at bedtime budesonide inhalation cyanocobalamin (vitamin B-12) (Vitamin B-12) 500 mcg PO DAILY enalapril maleate 2.5 mg PO DAILY epinephrine (EpiPen) 0.3 mg (0.3 mL) IM 1T ergocalciferol (vitamin D2) (Vitamin D2) 50,000 units PO 1XW MDD 1 esomeprazole magnesium 40 mg PO BID ethambutol 1,600 mg PO QDAY famotidine 40 mg PO HS ferrous sulfate ER (iron ER) 325 mg PO BID fluticasone propion- salmeterol 113-14 mcg/actuation inhalation folic acid PO gabapentin 300 mg PO TID immun glob G(IgG)-pro-IgA 0-50 1 gram/5 mL (20 %) (Hizentra) 20 grams subcut QWEEK insulin glargine (Basaglar KwikPen U-100 Insulin) 65 units (0.65 mL) subcut HS insulin lispro (Humalog KwikPen (U-100) Insulin) 1 unit (0.01 mL) subcut QACHS ipratropium-albuterol 0.5 mg-3 mg(2.5 mg base)/3 mL 3 mL inhalation QID MDD 4 Lactobacillus acidophilus PO lancets (Axi[employer]uch DelConnected Data Lancets) to be used AC and HS loratadine 10 mg PO DAILY methotrexate sodium PO montelukast 10 mg PO QPM multivitamin (Daily Multi-Vitamin) 1 tab PO DAILY pen needle,diabetic dual safty (BD AutoShield Duo Pen Needle) MDD 5 pyridostigmine bromide (Mestinon) 60 mg PO QID MDD 4 rifampin 300 mg PO QDAY ropinirole 2 mg PO BID sertraline 100 mg PO QDAY topiramate (Topamax) 100 mg PO BID umeclidinium 62.5 mcg/actuation (Incruse Ellipta) 1 inh inhalation QDAY zinc 50 mg PO QDAY Is last menstrual period known: No Post menopausal: Yes Patient : No Vision Wearing glasses?: Yes VA Far - right eye: 20/20 VA Far - left eye: 20/30 VA Far - bilateral eyes: 20/20 Additional details: patient had a right cataract extraction on 04/09/20. Left cataract scheduled for later this month care team includes Dr. Wilkinson for neurology and management of her obstructive sleep apnea, Dr. Zelaya for ENT, Dr. Andrade for infectious disease, Dr. Ambriz for pulmonary Dr. Kenney for allergy and immunology , [facility]ology in [facility] for her eye care Fall Risk History of falls: Yes Ambulatory Aid:: Crutches Cane or Walker (She is not using anything today but has a scooter walker and cane she uses as needed) Gait/Transferring:: Impaired Medications:: Psychotropics and Antihypertensives Fall Risk education: She has grab bars she has a ramp she uses a night light she does not have scatter rugs fall education provided PHQ- 2/9 Over the last 2 weeks, how often have you been bothered by any of the following problems? 1. Little interest or pleasure in doing things: not at all 2. Feeling down, depressed, or hopeless: not at all Total score: 0 3. Trouble falling or staying asleep, or sleeping too much: nearly every day 4. Fe eling tired or having little energy: nearly every day 5. Poor appetite or overeating: not at all 6. Feeling bad about yourself - or that you are a failure or have let yourself and your family down: not at all 7. Trouble concentrating on things, such as reading the newspaper or watching television: not at all 8. Moving or speaking so slowly that other people could have noticed? - Or the opposite - being so fidgety or restless that you have been moving around a lot more than usual: not at all 9. Thoughts that you would be better off or of hurting yourself in some way: not at all Total score: 6 If you checked off any problems, how difficult have these problems made it for you to do your work, take care of things at home, or get along with other people?: somewhat difficult Source: Developed by Drs. Hernando Givens, Radha Cantu, Salvatore Chakraborty and colleagues, with an educational andrew from [employer]. HIV Testing Offer - ages 13-64 Requirement for HIV testing offer been met?: Not in age range Hep C Testing Offered: No Hep C Requirement met: Tested in the past SBIRT Annual Questionnaire Are you currently in recovery for alcohol or substance use?: No How many times in the past year have you had 4 or more drinks in a day?: None How many times in the past year have you used a recreational drug or used a prescription medication for nonmedical reasons?: None Do you need a note to return Do you need a note to return to daycare/school/sports/work: No Coronavirus Screening Screening Have you traveled outside of [facility] in the last 14 days.: No Has patient experienced coronavirus symptoms: No PFS Medical History Allergic rhinitis Anxiety and depression Aspiration pneumonia due to regurgitated gastric secretions Asthma w/ status asthmaticus Atrophic vaginitis Benign familial tremor Bilateral pneumonia Bronchiectasis Chronic fatigue syndrome Chronic pansinusitis Common variable immunodeficiency (02/02/16) Depression with anxiety Diabetes mellitus E-coli UTI EKG abnormalities Enterobacter cloacae pneumonia Eustachian tube dysfunction Exacerbation of asthma Gastroparesis GERD (gastroesophageal reflux disease) Heme positive stool Heme positive stool Herpes zoster Hiatal hernia Hypertension, essential Hypoglycemia associated with diabetes Influenza A Influenza B (09/06/17) Lactic acidosis (02/05/17) Mild vitamin D deficiency Mixed hyperlipidemia Mixed stress and urge urinary incontinence multiple gastric ulcers-[place]ak scope 11-8-18 (05/18/18) Myasthenia gravis Mycobacterium avium infection Nausea ( 12/19/18) DMITRI on CPAP Postmenopausal Pulmonary hypertension Pulmonary nodules Severe persistent asthma dependent on systemic steroids with acute exacerbation Sinobronchitis SOB (shortness of breath) Temporal mandibular joint disorder Viral upper respiratory infection Prevnar 13 (PF) Performing Provider: Lindsay Chapman DO Administered by: Odessa Valdez on 04/14/20 10:37 Surgical History Cataract extraction status, right eye History of - surgery History of - surgery (05/18/18) History of carpal tunnel surgery History of colonoscopy History of hysterectomy History of sinus surgery (03/09/18) Status post oophorectomy Family History Mother Liver cell carcinoma Father No problems noted. Sister Diabetes Hyperlipidemia Hypothyroidism Carcinoma of breast, Onset Age: 30 Sister Carcinoma of breast, Onset Age: 50 Other Carcinoma of colon Social History Does the Patient have a Healthcare Proxy: Yes (/sister) Does Patient have a DNR?: No Does Patient have a Living Will?: No Does the Patient have a MOLST?: No Advance Directives on File or in chart?: No household members: spouse housing: house marital status: lives independently: Yes number of children: 4 number of grandchildren: 13 highest education level completed: some college, no degree service: No current occupational status: unemployed current occupation: disabled current occupational exposures/hazards: No pets and animals: Yes Hx Recent Travel (where): No do you think of yourself as: straight/heterosexual well- balanced diet: about half the time high-fat food intake: 3 or more times/day daily servings fruits/ve-4 daily servings of milk/calcium: 2-4 eating out: rarely or never reads food labels: usually or always during the past year weight has: remained stable what type of physical activity do you participate in?: walking Smoking Status: Never smoker alcohol intake: never substance use type: does not use ayan/tenriism: Buddhist seatbelt use: always drive intox or ride w/ intox 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 working smoke detector in home: Yes fire extinguisher in home: No carbon monox detector in home: No firearms in home: Yes firearms unloaded and locked: Yes do you feel safe at home: No victim of physical abuse: No victim of emotional abuse: No victim of sexual abuse: No would you like helpful sources: No HPI Adult Health Maintenance History of present illness Patient here today for health maintenance Are you having any pain?: Yes (On and off in her shoulders) Correction (vision test): patient wearing glasses (See vision completed by the nurse and recent eye reports from [facility] post right cataract surgery) Dietary habits Has a well balanced diet: about half the time Eats a low calorie diet: rarely or never Estimated fat intake is: 3 or more times/day Eats fruits and vegetables: 2-4 Estimated daily calcium intake: 2-4 Number of meals per day: 3 Eats out: rarely or never Reads food labels: usually or always During the past year, weight has: remained stable Patient counseled regarding lifestyle changes to maintain healthy weight includi ng healthy diet and importance of exercise: Yes Exercise Exercise frequency: 3-4 times per week Exercise duration per day: 15-30 minutes/day Exercise duration per week: <100 minutes/week Resistance training per week: none Skin cancer risk assessment Protective factors: 1. Do you wear broad-spectrum sunscreen of SPF 15 or greater?: yes, 2. Do you wear hats or other shade- protective clothing?: yes and 3. Do you avoid going outdoors during midday hours (10 AM to 3 PM)?: yes Risk factors: 4. Do you do indoor tanning?: no, 5. Do you have fair skin?: yes, 6. Do you have blue, pro, or green eyes?: no, 7. Do you have blond or red hair?: no and 8. Do you have skin that epstein, freckles, reddens easily, or becomes painful in the sun?: yes Counseling done: Yes (Sees gore stitcher for skin care on regular basis) Dental care Dental care: is edentulous STI risk assessment STI risk assessment done: Yes (Monogamous relationship for years and post hysterectomy BSO) Sexual preference and activity Sexual preference: prefers women BRCA gene risk assessment Risk factor: 1. Did any of your first-degree relatives have breast or ovarian cancer?: yes, 2. Did any of your relatives have bilateral breast cancer (breast cancer in both breasts)?: yes (Sister Amelia which is why she had elective hysterectomy), 3. Did any man in your family have breast cancer?: no, 4. Did any woman in your family have breast and ovarian cancer?: yes (Yes), 5. Did any woman in your family have breast cancer before age 50 years?: yes (Yes), 6. Do you have 2 or more relatives with breast and/or ovarian cancer?: yes (Yes) and 7. 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 Do you have diabetes?: yes, 2. Do you have (or have you ever had) any of the following: CHD, CAD, heart attack, noncoronary atherosclerosis, abdominal aneurysm, peripheral artery disease, carotid artery stenosis?: no, 3. Do you have a close male relative who had cardiovascular disease (such as a heart attack) before the age of 50 or a female relative who had it before age 60?: yes, 4. Do you use tobacco in any form (cigarettes, e- cigarettes, cigars, etc.)?: no, 5. Do you have hypertension (high blood pressure)?: yes and 6. Is your body mass index (BMI) 30 kg/m2 or greater?: yes Tobacco smoking status: Never smoker Alcohol Alcohol: does not drink Drugs/substances Substances: denies use Safety Car safety: never wears a seatbelt Review of Systems Const All systems reviewed are unremarkable except as noted in HPI and below Reports as per HPI, Denies body aches, Denies chills, Denies daytime sleepiness, Denies difficulty sleeping, Denies excessive sweating, Reports fatigue, Denies fever(s), Denies frequent falls, Denies headache(s), Denies increased appetite, Reports lethargy, Denies malaise, Denies night sweats, Denies weight gain and Denies weight loss Eyes Reports as per HPI, Denies blurry vision, Denies change in vision, Denies diplopia, Reports eye discharge, Reports dry eyes, Reports irritation, Reports itchy eyes, Denies loss of vision, Reports requires corrective lenses, Denies seeing flashes and Denies photophobia ENT Reports system reviewed and no additional complaints, except as documented, Denies change in voice, Denies dental pain, Denies dysphagia, Denies vertigo, Denies dizziness, Reports dry mouth, Denies ear discharge, Denies otalgia, Denies facial pain, Denies headache(s), Denies hoarseness, Denies lip swelling, Denies epistaxis, Denies mouth lesions, Reports nasal congestion, Reports nasal discharge, Denies neck pain, Denies disequilibrium, Reports post nasal drip, Denies tinnitus, Denies sinus pain, Denies sinus pressure, Denies sore throat, Denies throat swelling and Denies tongue swelling Details: Much better since she had her sinus surgery Card Reports as per HPI, Denies chest pain, Denies chest pain at rest, Denies chest pain with activity, Denies diaphoresis, Denies syncope, Denies rapid heart rate, Denies pedal edema, Denies edema, Denies irregular heart rhythm, Denies wayne ication, Denies leg ulcers, Denies leg edema, Denies lightheadedness, Denies palpitations, Denies dyspnea, Reports dyspnea on exertion, Denies orthopnea and Denies paroxysmal nocturnal dyspnea Details: Sleeps with head of bed elevated mainly because of her reflux Resp Reports as per HPI, Denies change in phlegm color, Denies chest congestion, Denies cough, Denies hemoptysis, Denies excessive phlegm production, Denies pain on inspiration, Denies dyspnea, Reports dyspnea on exertion and Denies wheezing Details: On the tail end of her year of treatment for MAC pneumonia doing dramatically better off prednisone dyspnea on exertion markedly improved starting to be able to walk longer amounts does not have to use nebulizer so much GI Reports as per HPI, Denies abdominal pain, Denies belching, Denies melena, Denies bloating, Denies hematochezia, Denies change in bowel habits, Denies change in stool character, Denies constipation, Denies dysphagia, Denies excessive flatus, Denies early satiety, Reports heartburn, Denies diarrhea, Reports nausea, Denies vomiting and Denies hematemesis Details: sees DR deanna FRY Genitourinary: Reports as per HPI, amenorrhea, post void dribbling, nocturia, urinary frequency, urinary incontinence, urinary urgency and vaginal dryness; Denies abnormal vaginal bleeding, hematuria, difficulty voiding, nipple discharge, dysmenorrhea, dysuria, urinary hesitancy, vaginal discharge, vaginal odor or vaginal pruritus Details: post anup bso as sister had ovarian ca Musc Reports as per HPI, Reports abnormal gait, Reports back pain, Reports arthralgias, Denies neck pain, Reports numbness, Denies radiating pain into limb, Reports stiffness and Reports tingling Skin/Breast Reports as per HPI, Denies breast swelling, Denies breast skin changes, Denies breast pain, Denies breast mass, Denies alopecia, Denies pruritus, Denies nail changes, Denies nipple discharge, Denies non-healing lesions, Denies erythema, Denies rash, Denies skin pain, Denies skin ulcer, Denies sores, Denies unusual bruising and Denies wounds Details: double nipple on the right Neuro Reports as per HPI, Reports abnormal gait, Denies vertigo, Denies dizziness, Denies syncope, Denies frequent falls, Denies headache(s), Denies loss of vision, Reports numbness, Reports restless legs, Denies seizure-like activity, Reports tingling, Reports paresthesias, Denies tremor(s) and Denies disequilibrium Details: sees dr wilkinson for her dmitri and her myasthenia no double vision no new falls able to walk better able to do some housework Psych Reports as per HPI, Reports abnormal sleep pattern, Reports an xiety, Denies change in appetite, Reports depression, Denies difficulty concentrating, Denies irritability, Denies anhedonia, Denies mood swings, Denies panic attacks, Denies homicidal ideation and Denies suicidal ideation Endo Reports as per HPI, Denies cold intolerance, Denies excessive sweating, Reports fatigue, Denies flushing, Reports heat intolerance, Denies polyphagia, Denies polydipsia, Denies polyuria and Denies palpitations Details: bs have been better testing ac and hs Ryan/Lymph Denies easy bleeding and Reports easy bruising Aller/Immun Reports system reviewed and no additional complaints, except as documented, Reports GI upset with certain foods, Denies urticaria, Reports itchy eyes, Denies lip swelling, Reports seasonal rhinorrhea, Denies throat swelling, Denies tongue swelling and Denies wheezing Exam Const General: comfortable, no acute distress, well developed and well groomed Nutritional Appearance: well nourished and obese Orientation: alert, awake and oriented x3 HENMT Head: normocephalic and atraumatic Ears: hearing grossly normal bilaterally, external ears normal, TM's normal bilaterally and EAC's normal General nose exam: external nose normal, nares normal, no nasal polyps and nasal mucous membranes and turbinates normal; no epistaxis Face and sinus: normal facial exam, sinuses nontender and face symmetric Mouth: oral mucosae normal Teeth and gingiva: edentulous Eyes Conjunctivae: conjunctivae normal Pupils: PERRL EOM: EOM intact bilaterally Direct ophthalmoscopy: normal light reflex Neck Neck: no lymphadenopathy, trachea midline and nontender Neck mass: No Thyroid: thyroid normal Carotids: normal carotid upstroke and no bruits Lymphatic: no lymphadenopathy noted Chest Chest: normal inspection of the chest Breast/Axilla Inspection: normal inspection of the breasts (except double nipple on right breast) Breast/Axilla Palpation: normal palpation of the axillae and no axillary lymphadenopathy Resp Effort Inspection: normal res piratory effort, able to speak in complete sentences, no audible wheezes, no cough, no use of accessory muscles, prolonged expiratory phase and symmetric chest movement Auscultation: clear to auscultation bilaterally, no crackles, no rales, no rhonchi and no rubs Percussion: percussion normal Tactile Fremitus: tactile fremitus absent Cardio Rate: regular rate Rhythm: regular rhythm Heart Sounds: S1 normal and S2 normal Bruits: no carotid bruits Pulses: posterior tibial pulses present, dorsalis pedis present and normal peripheral pulses GI Inspection: Yes obesity and Yes scar Palpation: no hepatosplenomegaly, no hernias, no masses and nontender Auscultation: normal bowel sounds Musc Cervical Spine: no cervical muscular tenderness, no cervical spasm and no cervical spinal tenderness Thoracic/Lumbar Spine: straight leg raise negative bilaterally, kyphosis, no paraspinal tenderness, no scoliosis, no thoraco-lumbar spasm, no thoracic spinal tenderness and no lumbar spinal tenderness Skin Rashes: no rashes Trauma: no lacerations or abrasions Wounds: no wounds Nails: normal Neuro General: patient alert, patient awake, patient oriented x3, tone normal, moves all extremities, no focal motor deficits, decrease sensation to monofilament and deep tendon reflexes 2+ bilaterally Cranial Nerves: EOM intact bilaterally, no nystagmus, facial strength normal, tongue midline, able to rotate head bilaterally and able to elevate shoulders bilaterally Cognition: normal cognition Speech: speech normal Gait: normal gait Motor: muscle tone normal throughout and strength 5/5 throughout Extrem General: no clubbing, cyanosis or edema Psych Appearance: grossly normal and well kempt Mental Status: mental status grossly normal Speech and Movement: speech and movement normal Affect: normal affect Attitude: cooperative Thought Process: normal Thought Content: normal Insight: insight good Judgment: judgment good Immunizations Prevnar 13 (PF) Performing Provider: Lindsay Chapman DO Administered by: Odessa aVldez on 04/14/20 10:37 Dose Route Admin Location Lot Number Expiration Date [facility] Manufactu rer 0.5 mL IM Left arm C [id number] 10/09/21 [id number] [employer] VIS Given Date VIS Provided VIS Publication Date 04/14/20 Single Vaccine 19 Eligibility Eligibility Date Funding Source Not [facility] Eligible 04/14/20 Private Quality Reporting Depression/Bipolar (159/160/161/169/177) Total score: 6 Assessment Plan Assessment Plan (1) Encounter for annual health examination: Code(s): Z00.00 - Encounter for general adult medical examination without abnormal findings Plan - Lindsay Alto-Huitron, DO: Patient has been acutely ill often and not gotten her booster of Prevnar 13 she is feeling pretty well today so were going to give her that booster which she definitely can benefit from given her MAC and recurrent pneumonia. She did get flu shot last month even though it is not logged into her immunization record. She has had falls in the past and is at risk she has both walker cane and scooter currently is walking without any aid of ambulation and feels her strength and balance are doing better but she does have neuropathy so we did discuss fall prevention. She is due for bone density in the spring which I ordered. Her screening baseline bone density 4-1/2 years ago was normal. She does not need Pap smear anymore as she had complete full hysterectomy with BSO actually prophylactically because of family history of breast and ovarian cancer. She is high risk for breast cancer and is due for annual mammogram. She has double nipple on the right single nipple on the left but no [...] have some upper scope findings as documented including gastroparesis. However lower scope was not done patient is doing significantly better now from breathing point of view she will finish up her MAC year of treatment with triple antibiotics next month. I want her to do another stool card. If this 1 is positive I think she should return to GI and reconsider colonoscopy. She is agreeable. She is up-to-date on Pneumovax Zostavax and just earlier this year got a Boostrix. She is due for diabetic care next month. She did have diabetic eye exam even though we do not have records yet she had it in January prior to proceeding with cataract surgery last month we just need to get the records from her eye doctor. She has extensive care team. She sees [facility] for her ophthalmology care and recent cataract surgery. She sees Dr. andrade and Dr. Ambriz for treatment of her MAC and management of her recurrent pneumonia and persistent exacerbation of asthma. She sees Dr. Kenney at [facility] in [place] for her common variable immune deficiency syndrome and still gets weekly injections of IVIG. They also monitor her PFTs and breathing function and her IgG levels. She follows with [facility] and they monitor her gastroparesis and upper and lower scopes she did not have lower scopes last year again because of her acute illness. She follows with Dr. Wilkinson for her myasthenia gravis. He also monitors and manages her sleep apnea she is compliant with her CPAP. I think that about summarizes her care team other than cardiology care will [place] last echo was December 2018 when she was hospitalized at [facility] we are calling for that echo result. I manage her hyperlipidemia her diabetes her vitamin D deficiency her anxiety and depression and she is due for diabetes care next month so have ordered labs she also sees ENT in [place] and has had sinus surgery I will plan on seeing her back next month she also periodically sees orthopedist for orthopedic care. Reconciled her medications reviewed her allergies reviewed her health maintenance she did not have any other complaints or concerns see her back next month.Visit 1 hour Orders Other Orders: Orders: INJ - Prevnar 13 04/14/20 Z23 3D DIG MAMMO SCREEN BILAT 1 Month Z12.31 IFOB ICT fecal occult bld 1 Week R19.5 CMP 1 Month E11.8, E55.9, E78.2, R19.5 LIPID PANEL 1 Month E11.8, E55.9, E78.2, R19.5 Vitamin D 25-OH 1 Month E11.8, E55.9, E78.2, R19.5 HGBA1C + EAG 1 Month E11.8, E55.9, E78.2, R19.5 Bone density (DEXA) 6 Months Z78.0 Electronically Signed By: <Electronically signed by Lindsay Chapman DO> Date/Time Signed: 04/15/20 1533 Name Value Range Interpretation Code Description Data Sarah rce(s) Supporting Document(s) ID Date Data Source [id number] 03/21/2020 03:48:00 PM EDT Patient Name: ISIDRA YANEZ : 1960 Sex: F Pt Unit #: [id number] Location:[facility] Provider: Visit Date/Time: 03/21/20 Primary Insurance: [facility] Secondary Insurance: Self Pay Intake Vital Signs 03/21/20 15:49 Current Height 5 ft 3 in Current Weight 256 lb Weight Measurement Method Standing Scale BMI 45.3 BP 132/62 Blood Pressure Location Lt brachial Position Sitting Respiration 18 Pulse 59 L Pulse Strength Normal Pulse Source Pulse Oximeter Temp 98.2 F Temp Source Oral Pulse Oximetry (%) 98 Oxygen Delivery Method room air Intake Visit Reasons: Pre-op evaluation Nurse Note: patient here for pre op surgery for bilateral cataract surgery with Dr. Ramirez. right eye the first time then wait two weeks for the next eye. 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 Associate Required: No Accompanied by: Self / Same as Patient Is patient in pain?: No Allergies Sulfa (Sulfonamide Antibiotics) Allergy (Intermediate, Verified 03/21/20 16:55) PRURITIS, HIVES fluoxetine [Fluoxetine] Allergy (Unknown, Verified 03/21/20 16:55) Other, not listed metformin Adverse Reaction (Severe, Verified 03/21/20 16:55) LACTIC ACIDOSIS NSAIDS (Non-Steroidal Anti-Inflamma Adverse Reaction (Severe, Verified 03/21/20 16:55) GI Upset metoclopramide [Metoclopramide] Adverse Reaction (Intermediate, Verified 03/21/20 16:55) Dyskinesia Medications acetaminophen (Tylenol Extra Strength) 1,000 mg PO Q6HRS PRN albuterol sulfate 90 mcg/actuation (Ventolin HFA) 2 puffs INH Q4HPRN PRN MDD 6 x albuterol sulfate 2.5 mg NEB Q4HPRN MDD 6 alprazolam (Xanax) 0.25 mg PO TIDPRN MDD 3 ascorbic acid (vitamin C) PO aspirin 81 mg PO QDAY atorvastatin 40 mg PO QPM azithromycin 500 mg PO QMWF blood sugar diagnostic ([email or web address] Verio test strips) Use strips to test sugar before meals and at bedtime budesonide inhalation cyanocobalamin (vitamin B- 12) (Vitamin B-12) 500 mcg PO DAILY enalapril maleate 2.5 mg PO DAILY epinephrine (EpiPen) 0.3 mg (0.3 mL) IM 1T ergocalciferol (vitamin D2) (Vitamin D2) 50,000 units PO 1XW MDD 1 esomeprazole magnesium 40 mg PO BID ethambutol 1,600 mg PO QDAY famotidine 40 mg PO HS ferrous sulfate ER (iron ER) 325 mg PO BID fluticasone propion-salmeterol 113-14 mcg/actuation inhalation folic acid PO gabapentin 300 mg PO TID immun glob G(IgG)-pro-IgA 0-50 (Hizentra) 20 grams subcut QWEEK insulin glargine (Basaglar KwikPen U-100 Insulin) 65 units (0.65 mL) subcut HS insulin lispro (Humalog KwikPen (U-100) Insulin) 1 unit (0.01 mL) subcut QACHS ipratropium-albuterol 0.5 mg-3 mg(2.5 mg base)/3 mL 3 mL inhalation QID MDD 4 Lactobacillus acidophilus PO lancets ([place] DelConnected Data Lancets) to be used AC and HS loratadine 10 mg PO DAILY methotrexate sodium PO montelukast 10 mg PO HS multivitamin (Daily Multi-Vitamin) 1 tab PO DAILY pen needle,diabetic dual safty (BD AutoShield Duo Pen Needle) MDD 5 pyridostigmine bromide (Mestinon) 60 mg PO QID MDD 4 rifampin 300 mg PO QDAY ropinirole 2 mg PO BID sertraline 100 mg PO QDAY topiramate (Topamax) 100 mg PO BID umeclidinium 62.5 mcg/actuation (Incruse Ellipta) 1 inh inhalation QDAY zinc 50 mg PO QDAY Is last menstrual period known: No Post menopausal: Yes Patient : No Fall Risk History of falls: No Ambulatory Aid:: None Gait/Transferring:: Normal PHQ-2/9 Over the last 2 weeks, how often have you been bothered by any of the following problems? 1. Little interest or pleasure in doing things: not at all 2. Feeling down, depressed, or hopeless: not at all Total score: 0 HIV Testing Offer - ages 13-64 Requirement for HIV testing offer been met?: Not in age range SBIRT Annual Questionnaire Are you currently in recovery for alcohol or substance use?: No How many times in the past year have you had 4 or more drinks in a day?: None How many times in the past year have you used a recreational drug or used a prescription medication for nonmedical reasons?: None Do you need a note to return Do you need a note to return to daycare/school/sports/work: No Coronavirus Screening Screening Have you traveled outside of [facility] or [facility] in the last 14 days.: No Has patient experienced coronavirus symptoms: No PFSH Medical History Allergic rhinitis Anxiety and depression Aspiration pneumonia due to regurgitated gastric secretions Asthma w/ status asthmaticus Atrophic vaginitis Benign familial tremor Bilateral pneumonia Bronchiectasis Chronic fatigue syndrome Chronic pansinusitis Common variable immunodeficiency (02/02/16) Depression with anxiety Diabetes mellitus E-coli UTI EKG abnormalities Enterobacter cloacae pneumonia Eustachian tube dysfunction Exacerbation of asthma Gastroparesis GERD (gastroesophageal reflux disease) Heme positive stool Herpes zoster Hiatal hernia Hypertension, essential Hypoglycemia associated with diabetes Influenza A Influenza B (09/06/17) Lactic acidosis (02/05/17) Mild vitamin D deficiency Mixed hyperlipidemia Mixed stress and urge urinary incontinence multiple gastric ulcers-[place] scope 11-8-18 (05/18/18) Myasthenia gravis Mycobacterium avium infection Nausea ( 12/19/18) DMITRI on CPAP Pulmonary hypertension Pulmonary nodules Severe persistent asthma dependent on systemic steroids with acute exacerbation Sinobronchitis SOB (shortness of breath) Temporal mandibular joint disorder Viral upper respiratory infection Surgical History History of - surgery History of - surgery (05/18/18) History of carpal tunnel surgery History of colonoscopy History of hysterectomy History of sinus surgery (03/09/18) Status post oopho rectomy Family History Mother Liver cell carcinoma Father No problems noted. Sister Diabetes Hyperlipidemia Hypothyroidism Carcinoma of breast, Onset Age: 30 Sister Carcinoma of breast, Onset Age: 50 Other Carcinoma of colon Social History Does the Patient have a Healthcare Proxy: Yes (/sister) Does Patient have a DNR?: No Does Patient have a Living Will?: No Does the Patient have a MOLST?: No Advance Directives on File or in chart?: No household members: spouse housing: house marital status: current occupation: disabled pets and animals: Yes Hx Recent Travel (where): No alcohol intake: never HPI Additional HPI HPI Details: Patient is being seen today to consider preoperative clearance for chronically symptomatic cataracts bilateral, she would like to do them 2 weeks apart the left and then the right as she is at baseline a category 4 ASA surgical risk due to her multitude of chronic medical problems. she is followed by numerous specialist and is currently about 9 months into triple regimen treatment for MAC-Mycobacterium avium treatment jointly by and Dr Mikey Ambriz who after seeing multitude of other speech and language specialist including [facility] diagnosed her with this persistent pneumonia and she is finally after a couple years of recurrent admissions for pneumonia and persistent exacerbation of her asthma requiring constant high dose prednisone slowly improving. She voices today how thankful she is that she is feeling better and that we persisted to try to find an answer as she is really feeling significantly better. Her other medical problems include myasthenia gravis, gastroesophageal reflux disease further complicated by the fact that she has gastroparesis from her type 2 diabetes. She just recently saw and his PA down in [place] for management of her reflux microaspiration and gastroparesis. She has distended esophagus as well as hiatal hernia and cedrick reflux on recent barium study this is not anything new and that is longstanding but likely contributes to her long-term risk for recurrent pneumonia in addition to her diagnosis of MAC. At the time of diagnosis of MAC she was switched from high-dose CellCept for management of her myasthenia gravis to low-dose methotrexate 7.5 once weekly on Tuesday by her treating neurologist Dr. Wilkinson at [facility]. She continues to see him on a regular basis. Anesthesia should be aware that she has myasthenia and should avoid anesthetic drugs that would precipitate issues with her myasthenia. She has chronic mixed incontinence, mixed hyperlipidemia, longstanding hypertension, bronchiectasis which on her last CT of the lungs by Dr. Ambriz in July of this year was stable, all acute prior infiltrates had cleared, she is not had any imaging since then nor is any planned immediately. There is a note of clearance for the cataract procedure directly from her infectious disease Dr Dania Andrade as she is still on final 3 months of her triple regimen for the MAC and the day of the procedure she will need to take her 3 antibiotics as she normally would. She should also take her morning dose of Mestinon. I have written these instructions out for her. It is essential she take her morning dose of Mestinon, her rifampin dose if it is a day she would take azithromycin, that antibiotic to as well as her ethambutol. And she voiced understanding and said she would keep close track of the written instructions I gave her if she does by mistake misplaced these I told her to make sure to call me. She also needs to use both her Incruse and her generic Advair she needs to take a puff on both of these inhalers. Given her brittle pulmonary status and persistent asthma even despite its improvement she needs to have a DuoNeb standard nebuliz er treatment just prior to sedation. Her other medications for the most part she can just take when she gets home including her Nexium enalapril famotidine iron folic acid gabapentin Claritin Singulair Requip Zoloft Topamax but it is important she get the medicines I wrote down in the morning of the procedure. She will take no short acting insulin the morning of the procedure the night before her basalgar long-acting insulin she will do 32 units instead of 64 Review of Systems Const All systems reviewed are unremarkable except as noted in HPI and below Reports as per HPI, Denies body aches, Denies chills, Denies daytime sleepiness, Reports difficulty sleeping (Occasionally has trouble sleeping recently doing some better), Denies excessive sweating, Reports fatigue, Denies fever(s), Denies frequent falls, Reports headache(s) (Occasionally), Denies increased appetite, Reports lethargy (At times doing better since increased dose of Zoloft 100), Reports night sweats, Reports weakness (At times she feels weakness but recently has been doing some better) and Reports weight gain (Due to the prednisone high doses she is taken over the past couple years) Details: 100% compliant with her CPAP she puts it on every night she does not sleep without it this is managed by Dr. Wilkinson her neurologist not her local tanker truck driver recommend she bring it with her to the surgery Eyes Reports as per HPI, Reports blurry vision, Reports change in vision, Reports decreased night vision, Denies eye discharge, Denies dry eyes, Denies irritation, Denies itchy eyes, Reports requires corrective lenses, Denies seeing flashes and Denies photophobia Details: She has been complaining for close to a year that her vision is blurry, overall blood sugar control has improved initially I thought the blurring might be high blood sugar but her overall control has improved and vision has not improved her January 20 A1c was down to 7.2 blood sugar was 93 she should not have blurred vision with blood sugars this well controlled so I think it is the cataracts and she wants to proceed with cataract surgery as soon as possible she has a note of clearance from her infectious disease doctor and her local tanker truck driver that they feel her pulmonary status is satisfactory to proceed ENT Reports as per HPI, Denies halitosis, Denies dental pain, Denies dysphagia, Denies vertigo, Denies dizziness, Reports dry mouth, Denies ear discharge, Denies otalgia, Denies facial pain, Reports headache(s) (Occasionally), Denies hearing loss, Reports hoarseness (On and off), Denies lip swelling, Denies epistaxis, Denies mouth lesions, Denies mouth pain, Reports nasal congestion, Reports nasal discharge, Denies neck mass, Denies neck pain, Denies odynophagia, Reports disequilibrium, Reports post nasal drip, Denies sinus pain, Denies sinus pressure, Denies sore throat, Denies throat swelling and Denies tongue swelling Card Reports as per HPI, Denies chest pain, Denies chest pain at rest, Denies chest pain with activity, Denies diaphoresis, Denies syncope, Reports edema (She does sometimes have generalized swelling and it is typically when she is on high-dose prednisone her edema on exam is minimal), Denies irregular heart rhythm, Denies claudication, Denies leg ulcers, Reports leg edema (Leg swelling typically when she is on high-dose prednisone), Denies lightheadedness, Denies palpitations, Denies dyspnea, Reports dyspnea on exertion (Short of breath currently going up half a flight of stairs short of breath doing light housework but no shortness of breath at rest no shortness of breath at night able to sleep through the night comfortably), Denies orthopnea and Denies paroxysmal nocturnal dyspnea Details: EKG is unchanged from previous she had some mild abnormality and it was previously worked up with cardiac catheterization which was clear there is no acute abnormality noted on today's EKG Resp Denies chest congestion, Reports cough, Denies excessive phlegm production, Denies dyspnea, Reports dyspnea on exertion (Short of breath currently going up half a flight of stairs short of breath doing light housework but no shortness of breath at rest no shortness of breath at night able to sleep through the night comfortably) and Reports wheezing (Rarely hears herself wheezing rarely using nebulizer mainly using just her in Shailesh and her Advair) Details: She was last night seen her using nebulizer every 4 hours even with every 4 hours sometimes waking up at night short of breath she does have intermittent cough but no sputum production no shortness of breath at night no waking up at night needing the nebulizer generally not using the nebulizer during the day able to do light housework able to get up half a flight of stairs without getting short of breath or resting cannot get up a full flight but can do a half flight which is an improvement she had PFTs in December with Dr. Ambriz. Her forced vital capacity and FEV1 were both in the 80% range. Her mid flows were back to completely normal he interpreted her PFTs as normal marked improvement. GI Reports as per HPI, Reports abdominal pain (Intermittent epigastric bloating and discomfort chronically has gastroparesis and follows with Dr. Franco), Denies melena, Reports bloating, Denies hematochezia, Denies change in bowel habits, Denies change in stool character, Denies coffee ground emesis, Denies constipation, Denies cramping, Denies dysphagia, Reports heartburn, Denies diarrhea, Reports nausea, Denies odynophagia, Denies vomiting and Denies hematemesis Details: Heartburn is nearly daily for her this is chronic she is followed closely by GI she was just down there and had a barium swallow reflux precautions need to be maintained during surgery she has a Craftmatic bed and sleeps with head of bed up at least 45 degrees Genitourinary: Reports as per HPI, amenorrhea, post void dribbling, nocturia, urinary frequency, urinary incontinence and urinary urgency; Denies abnormal vaginal bleeding, hematuria, difficulty voiding, hot flashes, dysuria or urinary hesitancy Musc Reports as per HPI, Reports abnormal gait, Reports back pain, Reports myalgias, Reports arthralgias, Denies neck pain, Reports numbness, Reports stiffness and Reports tingling Skin/Breast Reports as per HPI, Reports dry skin, Denies pruritus, Denies non-healing lesions, Denies erythema, Denies rash, Denies skin swelling, Denies skin ulcer, Denies sores, Denies unusual bruising and Denies wounds Neuro Reports as per HPI, Reports abnormal gait, Denies vertigo, Denies dizziness, Denies syncope, Denies frequent falls, Reports headache(s) (Occasionally), Denies localized weakness, Reports numbness, Reports restless legs, Reports tingling, Reports paresthesias, Reports tremor(s), Reports disequilibrium and Reports weakness (At times she feels weakness but recently has been doing some better) Details: Follows closely with Dr. Wilkinson he also actually manages her sleep apnea in addition to her myasthenia currently denies difficulty swallowing denies ptosis denies any double vision denies any localized weakness Psych Reports as per HPI, Reports anxiety, Reports depression, Denies irritability, Denies anhedonia, Denies panic attacks, Denies homicidal ideation and Denies suicidal ideation Details: Depression doing better since increasing Zoloft Endo Denies cold intolerance, Denies excessive sweating, Reports fatigue, Reports heat intolerance, Denies polyphagia, Denies polydipsia, Denies polyuria and Denies palpitations Ryan/Lymph Denies easy bleeding, Reports easy bruising and Denies lymphadenopathy Aller/Immun Reports as per HPI, Reports GI upset with certain foods, Denies urticaria, Denies itchy eyes, Denies lip swelling, Reports seasonal rhinorrhea, Denies throat swelling, Denies tongue swelling and Reports wheezing (Rarely hears herself wheezing rarely using nebulizer mainly using just her in Shailesh and her Advair) Details: Continues to get IVIG injections weekly from her suction worker which have brought her level back to normal it in addition to following with pulmonary and infectious disease she sees Dr. 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 and IVIG has helped bring her immunoglobulin levels back up into normal range Exam Const General: cooperative, comfortable, no acute distress and well groomed Nutritional Appearance: obese Orientation: alert, awake and oriented x3 HENMT Head: normocephalic and atraumatic Ears: hearing grossly normal bilaterally and TM's normal bilaterally General nose exam: external nose normal and no nasal discharge Face and sinus: sinuses nontender and face symmetric Mouth: oral mucosae normal Eyes Conjunctivae: conjunctivae normal Pupils: PERRL EOM: EOM intact bilaterally Other: No ptosis extraocular motion is intact otherwise defer detailed eye exam to Dr. Hair Neck Neck: no lymphadenopathy, trachea midline, supple and nontender Neck mass: No Thyroid: thyroid normal Carotids: normal carotid upstroke and no bruits Lymphatic: no lymphadenopathy noted Resp Effort Inspection: normal respiratory effort, able to speak in complete sentences, no audible wheezes, no cough, no grunting, not labored, no nasal flaring, no respiratory distress, not tachypneic, no tracheal deviation, no use of accessory muscles, No prolonged expiratory phase and symmetric chest movement Auscultation: clear to auscultation bilaterally, no crackles, no rales, no rhonchi, no wheezes and no rubs Tactile Fremitus: tactile fremitus absent Other: Best I have heard her lung exam in 2 or 3 years, completely clear, even after forced lung maneuvers lungs are still completely clear no rales rhonchi or wheezing PFTs with Dr. Ambriz in December were also normal Cardio Rate: regular rate Rhythm: regular rhythm Heart Sounds: S1 normal, S2 normal, no click, no gallops and no murmurs Pulses: posterior tibial pulses present GI Inspection: No abdominal distension, Yes large pannus, Yes obesity and Yes scar Palpation: soft, no hepatosplenomegaly, no hernias, no masses and tender in the epigastrum; with no rebound tenderness Auscultation: normal bowel sounds Musc Cervical Spine: no cervical muscular tenderness, no cervical spasm and no cervical spinal tenderness Thoracic/Lumbar Spine: kyphosis, no paraspinal tenderness, no thoraco-lumbar spasm, no thoracic spinal tenderness and no lumbar spinal tender ness Skin Rashes: no rashes Wounds: no wounds Hair: normal Neuro General: patient alert, patient awake, patient oriented x3, tone normal, moves all extremities and no focal motor deficits Cranial Nerves: CN's II-XII intact bilaterally, no nystagmus, facial strength normal, tongue midline and able to elevate shoulders bilaterally Cognition: normal cognition Speech: speech normal Gait: gait assisted Method: walking stick Motor: muscle tone normal throughout, strength 5/5 throughout and no fasciculations Extrem General: no clubbing, cyanosis or edema and no calf tenderness Psych Appearance: grossly normal Speech and Movement: speech clear and slowed movement Mood: anxious mood Affect: anxious affect Attitude: cooperative Thought Process: normal Thought Content: normal Insight: insight good Judgment: judgment good Office Meds Afluria Qd (3yr up)(PF) Performing Provider: Lindsay Chapman DO Administered by: Odessa Valdez on 03/21/20 17:30 Dose Route Admin Location Lot Number Expiration Date [place] Manufactu rer 60 mcg IM left deltoid [id number] 01/07/21 [id number] [employer]. 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 Dr. Ambriz her local tanker truck driver and Hans have worked together and her acute multi lobar infiltrates have resolved, she still has some underlying bronchiectasis as seen on her last CAT scan of the chest in July 2019 but her acute infiltrates have resolved. Her dyspnea on exertion is significantly improved. She used to have wheezing and shortness of breath at rest. Her PFTs have improved to normal. She is gradually improving from a pulmonary point of view. She will use her Incruse and her Advair the morning of the cataract surgery but I would still be very cautious even with sedation and air on the side of caution and give her a full unit dose DuoNeb just prior to any sedation as her airways are still hyperreactive and anesthesia of any sort even light sedation might still induce bronchospasm. She is chronically immunocompromised and at high risk for infection both because she has baseline common variable immunodeficiency and because she is on methotrexate to treat her myasthenia gravis. Her suction worker does have her on weekly IVIG injections at home. Her last immunoglobulin levels were much improved so that should significantly lessen her risk of infection. She is on low-dose of methotrexate to treat her myasthenia which is managed by Dr. Wilkinson. She also takes Mestinon. Her myasthenia has in the past been very symptomatic but is now fairly stable. She should take her dose of Mestinon the morning of the procedure before she leaves for the hospital. She is on a host of medications I have reviewed them and reconciled them with her. She has hand written instructions on what to take, I reviewed these with her several times and she voiced understanding, definitely needs to take her 3 antibiotics for the MAC, definitely the Mestinon and her INCruz and Advair, these are really the most important things. No short acting insulin. The night before half of her usual long-acting insulin 32 units. She has gastroparesis hiatal hernia reflux and does have history of microaspiration she sleeps with a Craftmatic bed at at least 45 degrees aspiration precautions definitely should be adhered to she should be treated with IV PPI on formulary. At home she takes Nexium given the multitude of other necessary medicines it would be best if anesthesia gives her IV Protonix IV omeprazole what ever is formulary and definitely maintain reflux precautions as she is high risk for aspiration from her reflux and gastroparesis. Narcotic anesthesia such as fentanyl should be avoided because of her sleep apnea. I instructed her to bring her sleep apnea gear so that it can be used postoperatively as she is waking up from her sedation. She takes Xanax as needed and tolerates low-dose benzodiazepine so I suspect she would tolerate low-dose Versed for sedation. EKG was obtained and has minor T wave abnormality unchanged from previous when T wave abnormality was first noticed she was worked up with stress test and cardiac cath which was completely clear no acute changes noted no new labs were obtained as her labs in mid January were actually much improved from previous A1c was 7.2 electrolytes were stable lipid panel is stable renal function was normal at 12 and 0.9 GFR greater than 60 sodium 142 potassium 4.6. She will repeat routine labs before her diabetes care visit with me in 6 weeks her hemoglobin was 12 and 39 and her white count was 6.6 blood pressure is stable at 132/62 heart rate 59 O2 sat 98 weight the same as last visit 256. I discussed with her that skipping her statin 1 day will not cause her any harm. Enalapril she can take later in the day when she is home from the procedure. She can have blood sugar monitored at the hospital and given Humalog coverage as needed she is to be n.p.o. she is not to take any short acting. Insulin the morning of the procedure at home the anesthesia doctor will cover her as needed. She does have anxiety and depression. I told her she could take her Zoloft if she wants to but explained she only gets a sip of water she already has 4 other pills she needs to take I would suggest that even though she normally takes her Zoloft in the morning. She just take it when she gets back home. I did recommend she bring her CPAP with her answered all of her questions and concerns to the best of my ability. Explained to her although her multitude of medical issues make her high risk this is a very brief limited procedure most likely it will go well without complications. At this point I do not think there is anything we can do to further optimize her. She is very symptomatic she is very anxious to proceed with both cataract repairs. Orders Other Orders: Orders: INJ - Influenza Vaccine Today Z23 Electronically Signed By: <Electronically signed by Lindsay Chapman DO> Date/Time Signed: 03/21/201935 Name Value Range Interpretation Code Description Data Sarah rce(s) Supporting Document(s) ID Date Data Source [id number] 02/21/2020 08:31:00 AM EDT [facility] Name Value Range Interpretation Code Description Data Sarah rce(s) Supporting Document(s) Afb Smear Laboratory test result [facility] ([facility] [place]) Due to limited sensitivity, smear result s should be used as an adjunct in evaluating patient tuberculosis status. Cultural examination is highly recommended for clinical diagnosis. AFB smear [place] NEGATIVE (NO AFB Seen ) Afb Culture Laboratory test result [facility] ([facility] [place]) Testing performed at reference lab . Rep ort copy to follow on a separate form. 04/07/20 REF LAB#:[id number] FINAL REPORT: 04/15/20 FULL REPORT IN LAB NOTES ([facility] and [facility]). No Acid-Fast Bacilli Isolated after 6 Weeks. ID Date Data Source [id number] 02/21/2020 08:31:00 AM EDT [facility] Name Value Range Interpretation Code Description Data Sarah rce(s) Supporting Document(s) Gram Stain Laboratory test result Normal (applies to non-n umeric results) [facility] ([facility] [place]) QUALITY: GOOD MANY WBCS FEW EPITHELIAL CELLS MODERATE GRAM POSITIVE COCCI IN CHAINS MODERATE GRAM POSITIVE RODS Sputum Culture Laboratory test result Normal (applies to non-numeric results) [facility] ([facility], ) <content>FULL REPORT IN LAB NOTES ([facility] a nd [facility]).</content>
<content>NORMAL TOMMY PRESENT</content>
<content></content>
<content>ORGANISM 1: ENTEROBACTER AEROGENES</content>
<content></content>
<content>QUANTITY OF GROWTH FEW</content>
<content></content>
<content></content>
<content></con tent>
<content>ORGANISM 1: ENTEROBACTER AEROGENES</content>
<content></content>
<content>ENTEROBACTER AEROGENES: REACTION</content>
<content>TRIMETHOPRIM/SULFAMETHOXAZOLE IV 160mg TMP & 800mg SMXq6h <=20 S</content>
<content>TRIMETHOPRIM/SULFAMETHOXAZOLE PO Bactrim DS Bid <=20 S</content>
<content>GENTAMICIN IV 80mg q8h <=1 S</content>
<content>CEFAZOLIN IV 1gm q8h >=64 R</content>
<content>LEVOFLOXACIN IV 500mg qd 4 I</content>
<content>LEVOFLOXACIN PO 250mg qd 4 I</content>
<content> LEVOFLOXACIN PO 500mg qd 4 I</content>
<content>TOBRAMYCIN IV 80mg q8h <=1 S</content>
<content>CEFTRIAXONE IV 1gm q24h <=1 S</content>
<content>CEFTAZIDIME IV 1gm q8h <=1 S</content>
<content>PIPERACILLIN/TAZOBACTAM IV 2.25 gm q6h 32 I</content>
<content>AZTREONAM IV 1gm q8h <=1 S</content>
<content> ERTAPENEM IV 1gm qd <=0.5 S</content>
<content>MEROPENEM IV 1 gm q8h <=0.25 S</content>
<content>MEROPENEM IV 500 mg q8h <=0.25 S</content>
<content>TIGECYCLINE IV 50mg q12h 2 S</content>
<content>CEFEPIME IV 1 gm q12h <=1 S</content>
<content>CEFEPIME IV 2 gm q12h <=1 S</content>
<content></content> ID Date Data Source [id number] 02/03/2020 10:07:00 AM EDT Source Of Specimen: ST Name Value Range Interpretation Code Description Data Sarah rce(s) Supporting Document(s) Helicobacter pylori Ag [Presence] in Stool by Immunoassay Negative Performed at: RN - [facility] [place] [id number] Director: Constanza Saxena MD, Phone: [phone] ID Date Data Source [id number] 02/01/2020 12:45:00 PM EDT [facility] ([facility]) Name Value Range Interpretation Code Description Data Sarah rce(s) Supporting Document(s) Helicobacter pylori Ag [Presence] in Stool Laboratory test result [facility] ([facility]) R10.13,D83.9 ID Date Data Source [id number] 02/01/2020 10:18:00 AM EDT Name Value Range Interpretation Code Description Data Sarah rce(s) Supporting Document(s) Leukocytes [#/volume] in Blood by Automated count 6.6 10*3/uL 4.45-10 .71 N Erythrocytes [#/volume] in Blood by Automated count 3.94 10*6/uL 4.20-5.40 Below low normal Hemoglobin [Moles/volume] in Blood 12.7 g/dL 10.7-15.4 N Hematocrit [Volume Fraction] of Blood by Automated count 39.0 % 3 7-47 N Erythrocyte mean corpuscular volume [Ent itic volume] in Cord blood by Automated count 99.0 fL 80-96 Above high normal [facility] Erythrocyte mean corpuscular hemoglobin [Entitic mass] by Automated count 32.2 pg 27-31 Above high normal [facility] spital Erythrocyte mean corpuscular hemoglobin concentration [Mass/volume] in Cord blood 32.6 g/dL 33-37 Below low normal [facility] Erythrocyte distribution width [Entitic volume] by Automated count 13 % 11-15 N Platelets [#/volume] in Blood by Automated count 282 10*3/uL 130-472 N Platelet mean volume [Entitic volume] in Blood 8.9 fL 9.1-13. 1 Below low normal Neutrophils/100 leukocytes in Blood by Automated count 51.3 % 41- 77 N Neutrophils [#/volume] in Blood by Automated count 3.4 U 1.7-7.6 N Lymphocytes/100 leukocytes in Blood by Automated count 36.3 % 14- 46 N Lymphocytes [#/volume] in Blood by Automated count 2.4 U 0.6-4.6 N Monocytes/100 leukocytes in Blood by Automated count 8.4 % 4-12 N Monocytes [#/volume] in Blood by Automated count 0.6 U 0.2-1.2 N Eosinophils/100 leukocytes in Blood by Automated count 2.4 % 0-7 N Eosinophils [#/volume] in Blood by Automated count 0.2 U 0.0-0.5 N Basophils/100 leukocytes in Blood by Automated count 0.8 % 0.4-1 .3 N Basophils [#/volume] in Blood by Automated count 0.1 U 0.0-0.2 N NUCLEATED RED BLOOD CELL 0 % NUCLEATED RED BLOOD CELL# 0 U [facility] Immature granulocytes [Presence] in Blood by Automated count 0-2 N Immature granulocytes [#/volume] in Blood by Automated count 0.1 U 0-0.1 N Manual Differential panel - Blood NO ID Date Data Source [id number] 02/01/2020 11:01:00 AM EDT Name Value Range Interpretation Code Description Data Sarah rce(s) Supporting Document(s) Urea nitrogen [Mass/volume] in Serum or Plasma 12 mg/dL 9-23 N Sodium [Moles/volume] in Serum or Plasma 142 mmol/L 132-146 N Potassium [Moles/volume] in Serum or Plasma 4.6 mmol/L 3.5-5.5 [facility] Chloride [Moles/volume] in Serum or Plasma 114 mmol/L 99-109 Above high normal Carbon dioxide, total [Moles/volume] in Serum or Plasma 22 mmol/L 20 -31 N Anion gap in Serum or Plasma 11 mmol/L 8-16 N [facility] Glucose [Mass/volume] in Serum or Plasma 93 mg/dL 74-106 N Creatinine 0.9 mg/dL 0.5-1.1 [facility] Glomerular filtration rate/1.73 sq M.pre dicted [Volume Rate/Area] in Serum or Plasma Greater Than 60 ABOVE 60 Alanine aminotransferase [Enzymatic acti vity/volume] in Serum or Plasma by With P-5'-P 20 U/L 10-49 N [facility] ital Aspartate aminotransferase [Enzymatic ac tivity/volume] in Serum or Plasma by With P-5'-P 13 U/L 0-33 N [facility] pital Alkaline phosphatase [Enzymatic activity/volume] in Serum or Plasma 119 U/L 45-129 N Calcium [Mass/volume] in Serum or Plasma 8.6 mg/dL 8.5-10.1 [facility] Bilirubin.total [Mass/volume] in Serum or Plasma 0.2 mg/dL 0.3-1.2 Below low normal Albumin [Mass/volume] in Serum or Plasma by Bromocresol purple (BCP) dye binding method 3.4 g/dL 3.2-4.8 N [facility] ital Protein [Mass/volume] in Serum or Plasma 7.3 g/dL 5.7-8.2 [facility] ID Date Data Source [id number] [facility] Name Value Range Interpretation Code Description Data Sarah rce(s) Supporting Document(s) IgG [Mass/volume] in Serum or Plasma 1159 mg/dL [phone] Performed at: RN - [facility] [address] [id number] Director: Constanza Saxena MD, Phone: [phone] ID Date Data Source [id number] 02/01/2020 11:02:00 AM [facility] Name Value Range Interpretation Code Description Data Sarah rce(s) Supporting Document(s) Amylase [Enzymatic activity/volume] in Serum or Plasma 58 U/L 30- 118 N ID Date Data Source [id number] 02/01/2020 11:02:00 AM [facility] Name Value Range Interpretation Code Description Data Sarah rce(s) Supporting Document(s) Lipase [Enzymatic activity/volume] in Serum or Plasma 147 U/L 73-3 93 N ID Date Data Source [id number] 02/01/2020 11:02:00 AM [facility] Name Value Range Interpretation Code Description Data Sarah rce(s) Supporting Document(s) Bilirubin.direct [Mass/volume] in Serum or Plasma 0.1 mg/dL 0.0-0.2 N ID Date Data Source [id number] 02/01/2020 10:10:00 AM EDT [facility] ([facility]) Name Value Range Interpretation Code Description Data Sarah rce(s) Supporting Document(s) Bilirubin.direct [Mass/volume] in Serum or Plasma Laboratory test res ult [facility] ([facility]) Amylase [Enzymatic activity/volume] in Serum or Plasma 58 U/L 30-118 Normal (applies to non-numeric results) [facility] ([facility]) Lipase [Enzymatic activity/volume] in Serum or Plasma 147 U/L 73-393 Normal (applies to non-numeric results) [facility] ([facility]) Bilirubin.direct [Mass/volume] in Serum or Plasma 0.1 mg/dL 0.0-0.2 Normal (applies to non-numeric results) [facility] ([facility]) ID Date Data Source [id number] 02/01/2020 10:10:00 AM EDT [facility] ([facility]) Name Value Range Interpretation Code Description Data Sarah rce(s) Supporting Document(s) IgG [Mass/volume] in Serum or Plasma 1159 mg/dL [phone] [facility] ([facility]) Performed at: - [facility] [address] [id number] [place] Gatherer: Constanza Saxena MD, Phone: [phone] ID Date Data Source [id number] 02/01/2020 10:10:00 AM EDT [facility] ([facility]) Name Value Range Interpretation Code Description Data Sarah rce(s) Supporting Document(s) Sodium [Moles/volume] in Serum or Plasma 142 mmol/L 132-146 Normal (applies to non-numeric results) [facility] [place] [facility]) R10.13,D83.9 Urea nitrogen [Mass/volume] in Serum or Plasma 12 mg/dL 9 -23 Normal (applies to non-numeric results) [facility] R10.13,D83.9 Potassium [Moles/volume] in Serum or Plasma 4.6 mmol/L 3.5- 5.5 Normal (applies to non-numeric results) [facility] ([facility]) R10.13,D83.9 Anion gap in Serum or Plasma 11 mmol/L 8-16 Nor mal (applies to non-numeric results) [facility] ([facility] ) R10.13,D83.9 Chloride [Moles/volume] in Serum or Plasma 114 mmol/L 99-109 Above high normal [facility] ([facility]) R10.13,D83.9 Carbon dioxide, total [Moles/volume] in Serum or Plasma 22 mmol/ L 20-31 Normal (applies to non-numeric results) [facility] R10.13,D83.9 Laboratory test finding (navigational concept) 0.9 mg/dL 0 .5-1.1 Normal (applies to non-numeric results) [facility] R10.13,D83.9 Glomerular filtration rate/1.73 sq M.pre dicted [Volume Rate/Area] in Serum or Plasma Laboratory test result [facility] ([facility]) R10.13,D83.9 Glucose [Mass/volume] in Serum or Plasma 93 mg/dL 74-106 Normal (applies to non- numeric results) [facility] ([facility] ) R10.13,D83.9 Alanine aminotransferase [Enzymatic acti vity/volume] in Serum or Plasma by With P-5'-P 20 U/L 10-49 Normal (applies to non-numeric results) [facility] ([facility]) R10.13,D83.9 Aspartate aminotransferase [Enzymatic ac tivity/volume] in Serum or Plasma by With P-5'-P 13 U/L 0-33 Normal (applies to non-numeric results) [facility] ([facility]) R10.13,D83.9 Alkaline phosphatase [Enzymatic activity/volume] in Serum or Plasma 119 U/L 45-129 Normal (applies to non-numeric results) [facility] ([facility]) R10.13,D83.9 Calcium [Mass/volume] in Serum or Plasma 8.6 mg/dL 8.5-10. 1 Normal (applies to non-numeric results) [facility] R10.13,D83.9 Bilirubin.total [Mass/volume] in Serum or Plasma 0.2 mg/dL 0.3-1.2 Below low normal [facility] ([facility] ) R10.13,D83.9 Albumin [Mass/volume] in Serum or Plasma by Bromocresol purple (BCP) dye binding method 3.4 g/dL 3.2-4.8 Normal (applies to non-numeric results) [facility] ([facility]) R10.13,D83.9 Protein [Mass/volume] in Serum or Plasma 7.3 g/dL 5.7-8.2 Normal (applies to non-numeric results) [facility] R10.13,D83.9 ID Date Data Source [id number] 02/01/2020 10:10:00 AM EDT [facility] ([facility]) Name Value Range Interpretation Code Description Data Sarah rce(s) Supporting Document(s) Leukocytes [#/volume] in Blood by Automated count 6.6 10*3/uL 4.45-10.71 Normal (applies to non-numeric results) [facility] R10.13,D83.9 Hemoglobin [Moles/volume] in Blood 12.7 g/dL 10.7-15.4 Normal (applies to non- numeric results) [facility] ([facility] ) R10.13,D83.9 Erythrocytes [#/volume] in Blood by Automated count 3.94 10*6/uL 4.20-5.40 Below low normal [facility] ([facility] ) R10.13,D83.9 Erythrocyte mean corpuscular volume [Ent itic volume] in Cord blood by Automated count 99.0 fL 80-96 Above high normal [facility] R10.13,D83.9 Hematocrit [Volume Fraction] of Blood by Automated count 39.0 % 37-47 Normal (applies to non-numeric results) [facility] R10.13,D83.9 Erythrocyte mean corpuscular hemoglobin [Entitic mass] by Automated count 32.2 pg 27-31 Above high normal [facility] ([facility]) R10.13,D83.9 Erythrocyte mean corpuscular hemoglobin concentration [Mass/volume] in Cord blood 32.6 g/dL 33-37 Below low normal [facility] R10.13,D83.9 Erythrocyte distribution width [Entitic volume] by Automated cou nt 13 % 11-15 Normal (applies to non-numeric results) [facility] R10.13,D83.9 Platelet mean volume [Entitic volume] in Blood 8.9 fL 9.1-13. 1 Below low normal [facility] ([facility]) R10.13,D83.9 Platelets [#/volume] in Blood by Automated count 282 10*3/uL 130-472 Normal (applies to non-numeric results) [facility] R10.13,D83.9 Neutrophils/100 leukocytes in Blood by Automated count 51.3 % 41-77 Normal (applies to non-numeric results) [facility] R10.13,D83.9 Neutrophils [#/volume] in Blood by Automated count 3.4 U 1.7-7.6 Normal (applies to non-numeric results) [facility] R10.13,D83.9 Lymphocytes [#/volume] in Blood by Automated count 2.4 U 0.6-4.6 Normal (applies to non-numeric results) [facility] R10.13,D83.9 Lymphocytes/100 leukocytes in Blood by Automated count 36.3 % 14-46 Normal (applies to non-numeric results) [facility] R10.13,D83.9 Eosinophils/100 leukocytes in Blood by Automated count 2.4 % 0-7 Normal (applies to non-numeric results) [facility] R10.13,D83.9 Monocytes [#/volume] in Blood by Automated count 0.6 U 0.2-1.2 Normal (applies to non-numeric results) [facility] ([facility]) R10.13,D83.9 Monocytes/100 leukocytes in Blood by Automated count 8.4 % 4-12 Normal (applies to non-numeric results) [facility] ([facility]) R10.13,D83.9 Basophils/100 leukocytes in Blood by Automated count 0.8 % 0.4-1.3 Normal (applies to non-numeric results) [facility] R10.13,D83.9 Eosinophils [#/volume] in Blood by Automated count 0.2 U 0.0-0.5 Normal (applies to non-numeric results) [facility] R10.13,D83.9 Basophils [#/volume] in Blood by Automated count 0.1 U 0.0-0.2 Normal (applies to non-numeric results) [facility] ([facility]) R10.13,D83.9 Laboratory test finding (navigational concept) 0 % [facility] ([facility]) R10.13,D83.9 Laboratory test finding (navigational concept) 0 U [facility] ([facility]) R10.13,D83.9 Immature granulocytes [Presence] in Blood by Automated count 0.8 0-2 Normal (applies to non-numeric results) [facility] R10.13,D83.9 Manual Differential panel - Blood Laboratory test result [facility] ([facility]) R10.13,D83.9 Immature granulocytes [#/volume] in Blood by Automated count 0.1 U 0-0.1 Normal (applies to non-numeric results) [facility] R10.13,D83.9 ID Date Data Source [id number] 01/31/2020 02:42:00 PM EDT [facility] [address] [place] [address] [phone] NAME SEX PT STATUS ACCOUNT NUMBER ISIDRA YANEZ REG REF [id number] ORDERING PHYSICIAN LOCATION MEDICAL RECORD NO. Jose Carlos Mendoza [id number] ATTENDING PHYSICIAN DATE OF DATE OF EXAM/TIME Doctor Provided,No Family 1960 01/31/20946 TYPE / EXAM Xray UGI w/air, w/o [...] 0.00 mGy-cm Fluoroscopy Time (in secs): 200 Name Value Range Interpretation Code Description Data Sarah rce(s) Supporting Document(s) ID Date Data Source [id number] 01/31/2020 09:06:00 AM EDT [facility] [address] [place] [address] [phone] NAME SEX PT STATUS ACCOUNT NUMBER ISIDRA YANEZ REG REF [id number] ORDERING PHYSICIAN LOCATION MEDICAL RECORD NO. Jose Carlos Mendoza [id number] ATTENDING PHYSICIAN DATE OF DATE OF EXAM/TIME Doctor Provided,No Family 1960 01/31/20899 TYPE / EXAM US Abdomen complete REASON [...] length, and is normal in echotexture. There areno renal cysts, masses, or shadowing calculi. There is no sonographic evidence of hydronephrosis. LEFT KIDNEY: The left kidney measures 15.0r cm in length, and is normal in echotexture. There are no renal cysts, masses, or shadowing calculi. There is no sonographic evidence of hydronephrosis. SPLEEN: The spleen measures 8.3 cm in length, and is normal in echogenicity and echotexture. Thereare no abnormalities of the splenic parenchyma. VASCULATURE: [...] = 0.0000 mSv Lifetime Dose: 25.9895 mSv Name Value Range Interpretation Code Description Data Sarah rce(s) Supporting Document(s) ID Date Data Source [id number] 01/21/2020 01:09:00 PM EDT Name Value Range Interpretation Code Description Data Sarah rce(s) Supporting Document(s) Leukocytes [#/volume] in Blood by Automated count 5.7 10*3/uL 4.45-10 .71 N Erythrocytes [#/volume] in Blood by Automated count 3.76 10*6/uL 4.20-5.40 Below low normal Hemoglobin [Moles/volume] in Blood 12.2 g/dL 10.7-15.4 N Hematocrit [Volume Fraction] of Blood by Automated count 37.4 % 3 7-47 N Erythrocyte mean corpuscular volume [Ent itic volume] in Cord blood by Automated count 99.5 fL 80-96 Above high normal [facility] Erythrocyte mean corpuscular hemoglobin [Entitic mass] by Automated count 32.4 pg 27-31 Above high normal [facility] spital Erythrocyte mean corpuscular hemoglobin concentration [Mass/volume] in Cord blood 32.6 g/dL 33-37 Below low normal [facility] Erythrocyte distribution width [Entitic volume] by Automated count 14 % 11-15 N Platelets [#/volume] in Blood by Automated count 269 10*3/uL 130-472 N Platelet mean volume [Entitic volume] in Blood 8.9 fL 9.1-13. 1 Below low normal Neutrophils/100 leukocytes in Blood by Automated count 48.5 % 41- 77 N Neutrophils [#/volume] in Blood by Automated count 2.7 U 1.7-7.6 N Lymphocytes/100 leukocytes in Blood by Automated count 40.0 % 14- 46 N Lymphocytes [#/volume] in Blood by Automated count 2.3 U 0.6-4.6 N Monocytes/100 leukocytes in Blood by Automated count 7.6 % 4-12 N Monocytes [#/volume] in Blood by Automated count 0.4 U 0.2-1.2 N Eosinophils/100 leukocytes in Blood by Automated count 2.3 % 0-7 N Eosinophils [#/volume] in Blood by Automated count 0.1 U 0.0-0.5 N Basophils/100 leukocytes in Blood by Automated count 1.1 % 0.4-1 .3 N Basophils [#/volume] in Blood by Automated count 0.1 U 0.0-0.2 N NUCLEATED RED BLOOD CELL 0 % NUCLEATED RED BLOOD CELL# 0 U [facility] Immature granulocytes [Presence] in Blood by Automated count 0-2 N Immature granulocytes [#/volume] in Blood by Automated count 0.0 U 0-0.1 N Manual Differential panel - Blood NO ID Date Data Source [id number] 01/21/2020 01:39:00 PM EDT Name Value Range Interpretation Code Description Data Sarah rce(s) Supporting Document(s) Hemoglobin A1c % 7.2 % 4.0-6.0 Above high normal [facility] The following ranges may be u sed for interpretation of results: HGBA1C degree of glucose control: Greater than 8%: Action Suggested * Less than 7%: Goal of Diabetic Therapy Less than 6%: NormalFactors such as duration of diabetes, adherence to therapyand the age of the patient should also be considered inassessing the degree of blood glucose control.* High risk of developing intermediate frame tender complications such asretinopathy, nephropathy, neuropathy, cardiopathy, etc. Some danger of hypoglycemic reaction in Type I diabetics.Some glucose intolerant individuals and "Sub Clinical"diabetics may demonstrate HGBA1C levels in this area. Glucose mean value [Moles/volume] in Blood Estimated f rom glycated hemoglobin 160 mg/dL [facility] An A1C of 7% - the goal of diabetic ther apy - is equivalentto an EAG of 154 mg/dl. ID Date Data Source [id number] 01/21/2020 01:52:00 PM EDT Name Value Range Interpretation Code Description Data Sarah rce(s) Supporting Document(s) Urea nitrogen [Mass/volume] in Serum or Plasma 12 mg/dL 9-23 N Sodium [Moles/volume] in Serum or Plasma 142 mmol/L 132-146 N Potassium [Moles/volume] in Serum or Plasma 4.2 mmol/L 3.5-5.5 [facility] Chloride [Moles/volume] in Serum or Plasma 112 mmol/L 99-109 Above high normal Carbon dioxide, total [Moles/volume] in Serum or Plasma 21 mmol/L 20 -31 N Anion gap in Serum or Plasma 13 mmol/L 8-16 N [facility] Glucose [Mass/volume] in Serum or Plasma 99 mg/dL 74-106 N Creatinine 0.8 mg/dL 0.5-1.1 [facility] Glomerular filtration rate/1.73 sq M.pre dicted [Volume Rate/Area] in Serum or Plasma Greater Than 60 ABOVE 60 Alanine aminotransferase [Enzymatic acti vity/volume] in Serum or Plasma by With P-5'-P 21 U/L 10-49 N [facility] ital Aspartate aminotransferase [Enzymatic ac tivity/volume] in Serum or Plasma by With P-5'-P 15 U/L 0-33 N [facility] pital Alkaline phosphatase [Enzymatic activity/volume] in Serum or Plasma 122 U/L 45-129 N Calcium [Mass/volume] in Serum or Plasma 8.8 mg/dL 8.5-10.1 N Bilirubin.total [Mass/volume] in Serum or Plasma 0.2 mg/dL 0.3-1.2 Below low normal Albumin [Mass/volume] in Serum or Plasma by Bromocresol purple (BCP) dye binding method 3.4 g/dL 3.2-4.8 N [facility] Protein [Mass/volume] in Serum or Plasma 7.2 g/dL 5.7-8.2 [facility] ID Date Data Source [id number] 01/22/2020 08:09:00 AM EDT Name Value Range Interpretation Code Description Data Sarah rce(s) Supporting Document(s) 25-Hydroxyvitamin D2+25-Hydroxyvitamin D3 [Mass/volume ] in Serum or Plasma 51.6 ng/mL 30.0-100.0 [facility] l Vitamin D deficiency has been defined by the [place] ofMedicine and an Endocrine Society practice guideline as alevel of serum 25-OH vitamin D less than 20 ng/mL (1,2).The Endocrine Society went on to further define vitamin Dinsufficiency as a level between 21 and 29 ng/mL (2).1. IOM ([place] of Medicine). 2010. Dietary reference intakes for calcium and D. [place]: The National Academies Press.2. Deena MF, Theodore NC, Valerie SLAUGHTER, et al. Evaluation, treatment, and prevention of vitamin D deficiency: an Endocrine Society clinical practice guideline. JCEM. 2010; 96(7):1911- 30.Performed at: RN - [facility] [address] [id number] Director: Constanza Saxena MD, Phone: [phone] ID Date Data Source [id number] 01/21/2020 01:52:00 PM EDT Name Value Range Interpretation Code Description Data Sarah rce(s) Supporting Document(s) Triglycerides 107 mg/dL 0-150 N [facility] Cholesterol 175 mg/dL 120-200 N [facility] HDL Cholesterol 82 mg/dL [facility] HDL Less than 40 mg/dL: Major risk for CHDHDL Greater than 59 mg/dL: Low risk for CHD LDL Cholesterol, Calc 72 mg/dL 0-100 N [facility] ID Date Data Source [id number] 01/16/2020 02:15:00 PM EDT [facility] Name Value Range Interpretation Code Description Data Sarah rce(s) Supporting Document(s) Follow Up [facility] MSIBEd7aRuXXFpAsPATgDfeEYOngIWaoHIZsU6L3FDyeYh3AIJkmlzDwJVRiYg0+EINpLH3zrw1zZEDv gMy [file] vp global marketing solutions/qb5WA05H8p/kuc5b+b+QstqEP0XVnIxGSorfPZqWrvP1SfWnrpDIQ0l9NOS8A3jJTvzVrqPbDMdRG [file] 71x/x/+2LbXYVS7WzL+31EnTj3Lt+xFDCryquqVfkQEPAOR/T5mLf0tEe0+PgNX3EWT5YSDoUOxw+Jose Ramon [file] PmlsBHpX/4wTnQqTz7lTOlxwb0xLM59JLMqy9Ey+Luis Carlos [file] shSUT/SUPERVISOR TICKET SALES+zDW+vpk4VowujdWNrfeRS6prcP7f702dyvoF8Mrxyosyi7llU8Yy/Fl4UdEfX8n0SKMFt+S [file] qSuu/qKanM0E/b4f/y/sv7L++/bitumastic applier/y/sv7L+//Lt7/G/0iDWRlBYKZXXtaQq5bE75j7NBJB8bv0qm+yp [file] 8/ZTvofYrc9TfdS5f0Pg9hjTK+LPLcMX02Nhe0u1VTd9eYSGhiZzkkWTDAbKkmj5/SUPERVISOR TICKET SALES/J5F9ieFeVgXA [file] gxaSRR7gjAhABkSfx05D5Zf2JVH0exq0LXa9ZqM5wmnfy+bitumastic applier/wWByxHiFu/yRm5JU2Q1rFJR6I5K9YVU [file] KdeE7JmYacz2ePDEd+[place]/pqvSc6OpTvCNXV9rjieZ [file] eUIzCKEJD4ehDwE0hiCAC4g16+0l1AkvKGeWCPFBACu1OJ/skNkfYlh4v9ltrJw39cxJYnwG0IcYZ/TESTING CONSULTANT [file] new patient escort+YR+Cifq9Mgd4bnMNx0tK+OQFQ7alWQ7O/0sIVk [file] LUIS CARLOS+YjzeTPJ5cS3QhdwSOFFLw/0cBfecH5/FboT5UoEEj6mP03mo1jpPBhhzZrWjiluWR6riFMTgJyfQ6 [file] nEpqls5RakB4NO5UBjevw7NkUJP3I7mv13ab6617ba57syA6hg4m2Bm38KqS3pYmdooQcwkqHW3+s+del toro [file] 2nnEfKGPUo4eePc+icu5BxBCgH8/6h6Xaefxnib8ugmgkQ0/publication designer+x8ucfDHhrR+Hfk7WUtj9ggt/OBP6 [file] nHxUbAckM2uj/Hu7CUm/Ai8xXQwzGo3cAkXEyEG3xJ59ap+bjwGHQvcOS/Chris+0euq1WV943Vl82ejRu na6tSoOUQwF/y9tblVruiZEoeL7iwB0RkgeASQeXh8 T7h9mRUAeOx1wMQiRik/rC4wzTMZQMtVlkanY+KvLFW3XyDsadaBleIKV+c83bVI/Kpb1+KVt0ghj8if lKFGhT3txrSETSWfs37azEWSDexDowbFOTZhvoZ3QJTOyVkl95+jSCXYuTh+zI2egqCIzHsh7ZhOjunC LsepbIw81Z1Tm1H8c5UCFnCldqcX2R0SsecCjJbi/+ uk1iF7DgFSQWjxXZB8OzNjZiv4lB3k19twAe7OA45Tau+b+6lvR/0bXUJ+LabV0gP2l4L2+BH5h26fk0 BN4OXOIHV+cVMX1LEStZvGQVGqxNOwbRoyHB/QPvgMXQ8wBgxZSKmJgBkKZvNVJLwDTS35swiGME4ju9 djFtRYI0kxgf5O+A3B3oaxOcXhj7jCpajWQrVMfuNQ nEpdob2kj24ONYGMH+soJIOm2qq0wxNk64pglMBtgJOL32NN/u8dfq8Fv3hDQK+ULCKHgGRXR7fa6EJ/ gy/VJ7wk+FCzHqts2s4SocVLtfvaQ8ellFJl8f5szt6LJJIEbo5kwV+sljkpual3X6C/t8Ps4dbeeLwR KXzUTiuPAy3PcrE8zGSvO57mtdLPcrISb6trQ8VEQ+ VcehFw33F2XvXY57s+oZmRbADaaX8Q6cyjAnBRh8tlVk/snnboNVahRwpa4kHFjNF0zPDjWe60ia3YD0 u1ZkMC3iJ9t+5Lka0qrLD55PN+zul2cp4Q8h1E2E3sYrqqJpUDfdS/H9D0cWv5Avj44mCVN6t3Qgl+TESTING CONSULTANT [file] OGynO6CjbEblz+B+Del Toro++/7ZpweELxvzg9f3QKPYLrE [file] 8d6xfURh/wsr3P+Miroslava/tKic9zJMk7daZv57nyQWEZR /bitumastic applier+Z8UXcj6DbzuwzQcfHBNr3k2g97fzWRbnQ0JQPWlp+sduB/lF+B/hrNG/z0AWAV/MULQlOs2tsn/i 04dPYbwX7csbuChw6ygdbAI++13Cih0h4OPGgNiug1w0ot+/aj2n/R7YQXeDVJqWZOw6HBLsyn7FVo+I x64WK22YTBHO+BEFGopIsoIARjFrr9ih4XQMl2EVpy XOWF/itRJNnJJQxqFJuo3eI7cZrfi0y+PWo5fcJubtfRl0+CqM2tcclOeJZY3xlbssalskAoGl0WvuvO m0Rg6b+YShaxNaHbW4XltKL4ULhHJ2AHa0PNFgsppkyftyI7vrEFzB5kvpJQ8ERo0yjmzC/ifCixW1WO TCD/u1AjOAUcDagRUd2Zkz0I5g7jsPQZD85w6AnXMV xipU1V+OFtthyBFSwOqK3lEBX3TrCG4XrudduifAN/6F/Le5mAAza14OE8++vHoT5tmj4mFvtmsqU1KM YSgY58KWNEuMI710Pd+cfBj7JI+7tMlvJk5MR5M4qn9Z7aYhHA8mu7tiJPk+Uq7mG7fbM8gKiodqS/M0 Thor+nK4HdGxGeDWWO3fZ99/B27uE1Tuns3VQhXsXlq [file] caoy4KVLnhLuS0r1jZwf/9gAKjdIl9gngRX8+mpQajEyE48Igd+OZdO/wGx1Ell9VSIfh9yKAlBr7+luis carlos [file] Luis Carlos/eyRg2R2hJAnd+Hhxl9Q5izUEl917sT+cX+Y8526 [file] q4D/GXd3WOh6oqoYeMAfvmW2qkm///n/TzL0aDN [file] 3tzRPBZhxmUDhLo9kiUWefyaVnXgXme+EPkdSUE7iZB3+luis carlos/4DBOJpcnuChpS469TT9s0jsN+N7vPweJ [file] FDt4mRrzwYriMSenVrkvCuAKKsDVyzDeEnI8qzir1YX5tjeIfsP15ulNuZ1ux9fmBbkW/certified composites technician/E0glzj+ [file] yUWyNv8JWWG4RqA8FP1YOJXOK5N= ID Date Data Source [id number] 12/24/2019 12:49:00 PM EDT Patient Name: ISIDRA YANEZ : 1960 Sex: F Pt Unit #: [id number] Location:[facility] Provider: Visit Date/Time: 12/24/19 Primary Insurance: [facility] Secondary Insurance: Self Pay Intake Vital Signs 12/24/19 13:50 Current Height 5 ft 3 in Current Weight 254 lb Weight Measurement Method Standing Scale BMI 44.9 BP 134/78 Blood Pressure Location Lt brachial Position Sitting Respiration 16 Pulse 68 Temp 98.3 F Pulse Oximetry (%) 98 Oxygen Delivery Method room air Intake Visit Reasons: Diabetes follow-up Nurse Note: Patient here for diabetes follow up but never did labs depsite reminder phone calls. No current lab results on file since last .still has highs and lows but admits lows related to her meal skipping. Sputum ordered from Dr. Benites is resulted. Would like Dr. bergeron look at left 5th finger, there is a small well approximated cut at tip of finger, but it was crushed by hogue coming off the shelf. Happened at 220pm yesterday. Has been been covered and using triple antibiotic. Currently uncovered 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 Associate Required: No Is patient in pain?: Yes (back pain ) Pain scale (1-10): 6 Allergies Sulfa (Sulfonamide Antibiotics) Allergy (Intermediate, Verified 03/19/19 14:40) PRURITIS, HIVES fluoxetine [Fluoxetine] Allergy (Unknown, Verified 03/19/19 14:40) Other, not listed metformin Adverse Reaction (Severe, Verified 03/19/19 14:40) LACTIC ACIDOSIS NSAIDS (Non-Steroidal Ant i-Inflamma Adverse Reaction (Severe, Verified 03/19/19 14:40) GI Upset metoclopramide [Metoclopramide] Adverse Reaction (Intermediate, Verified 03/19/19 14:40) Dyskinesia HIV Testing Offer - ages 13-64 Requirement for HIV testing offer been met?: Not in age range Hep C Testing Offered: Yes Hep C Requirement met: Patient reports past refusal SBIRT Annual Questionnaire Are you currently in recovery for alcohol or substance use?: No Coronavirus Screening Screening Have you traveled outside of [facility] in the last 14 days.: No Has patient experienced coronavirus symptoms: No ON LICENSE OF [facility] Medical History Allergic rhinitis Anxiety and depression Aspiration pneumonia due to regurgitated gastric secretions Asthma w/ status asthmaticus Atrophic vaginitis Benign familial tremor Bilateral pneumonia Bronchiectasis Chronic fatigue syndrome Chronic pansinusitis 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) Depression with anxiety Diabetes mellitus E-coli UTI EKG abnormalities Enterobacter cloacae pneumonia Eustachian tube dysfunction Exacerbation of asthma Gastroparesis GERD (gastroesophageal reflux disease) Heme positive stool Herpes zoster Hiatal hernia Hypertension, essential Hypoglycemia associated with diabetes Influenza A Influenza B (09/06/17) Lactic acidosis (02/05/17) Mild vitamin D deficiency Mixed hyperlipidemia Mixed stress and urge urinary incontinence multiple gastric ulcers-DrBuniak scope 05-18-18 (05/18/18) Myasthenia gravis Mycobacterium avium infection Nausea ( 12/19/18) DMITRI on CPAP Pulmonary hypertension Pulmonary nodules Severe persistent asthma dependent on systemic steroids with acute exacerbation Sinobronchitis SOB (shortness of breath) Temporal mandibular joint disorder Viral upper respiratory infection diphth,pertus(acell),tetanus Performing Provider: Lindsay cope DO Administered by: Bee Blankenship on 12/24/19 15:12 Surgical History History of - surgery History of - surgery (05/18/18) History of carpal tunnel surgery History of colonoscopy History of hysterectomy History of sinus surgery (03/09/18) Status post oophorectomy Family History Mother Liver cell carcinoma Father No problems noted. Sister Diabetes Hyperlipidemia Hypothyroidism Carcinoma of breast, Onset Age: 29 S ister Carcinoma of breast, Onset Age: 49 Other Carcinoma of colon Social History Does the Patient have a Healthcare Proxy: Yes (/sister) Does Patient have a DNR?: No Does Patient have a Living Will?: No Does the Patient have a MOLST?: No Advance Directives on File or in chart?: No household members: spouse housing: house current occupation: disabled pets and animals: Yes Hx Recent Travel (where): No alcohol intake: never HPI Adult Diabetic Follow-Up Type: type 2 and insulin-requiring Glucose control symptoms: Reports high fasting glucose, high post-meal glucose, nocturia (x2) and daytime hypoglycemia (lowest after skipping meal 42); Denies polydipsia or polyuria Weight and fatigue symptoms: Reports not sleeping well, wakes up feeling tired and daytime sleepiness (Miguelina advised no change in CPAP at 8cm); Denies tired all the time Cardiopulmonary symptoms: Reports dyspnea on exertion, myalgias and dizziness (only with low BS); Denies chest pain with activity, chest pain at rest, dyspnea, dyspnea at rest, claudication or lightheadedness GI symptoms: Denies nausea/dyspepsia, vomiting, diarrhea or constipation Skin and extremity symptoms: Reports recurrent infections; Denies foot ulcers, poorly healing wound or claudication Other symptoms: Reports blurry vision, change in vision, recurrent infections and depression Home monitoring: verbal report Time of day: AM fasting, before meals and bedtime Frequency (per day): four or more times daily Frequency (per week): daily 3:00 AM BG range: highest BS is 225 Lowest blood glucose since last visit: 42 Percentage of fasting blood glucose within goal: >50% of the time Dietary compliance: poor Last diet/nutrition education: admits she is eating mint candy 4-6 daily Diabetic diet reviewed: Yes Type(s) of exercise: walking and advised to exercise at least 150 min/week (moderate intensity aerobic) Frequency of exercise: 3-5 Nephropathy details: Reports on NATALYA-I/ARB History of retinopathy: No Retinopathy details: Reports followed by painter spray (Chaya) History of neuropathy: Yes Date of last foot exam: 12/24/19 Neuropathy details: Denies history of foot ulcers Checks feet nightly?: Yes Foot care education given: Yes Dentures: Yes Monofilament exam: L 1st metatarsals: normal, Left 3rd metatarsals monofilament exam: normal, L 5th metatarsals: normal, L great toe: normal, L 3rd toe: normal, L 5th toe: normal, Left medial mid foot: normal, Left lateral mid-foot: normal, Left mid- heel: normal, Left mid-dorsum foot: normal, R 1st metatarsals: normal, R 3rd metatarsals: normal, R 5th metatarsals: normal, R great toe: normal, R 3rd toe: normal, R 5th toe: normal, Right medial mid foot: normal, Right lateral mid- foot: normal, Right mid-heel: normal and Right mid-dorsum foot: normal Monofilament foot exam results: Left foot: normal and Right foot: normal Diabetic goal #1: eat meals on time and skip insulin if not eating,do labs HANSEL Diabetic goal #2: Check Feet nightly,do not go in your bare feet Diabetic goal #3: Followup with Chaya to schedule cataract surgery Review of Systems Const Denies chills, Reports daytime sleepiness (Miguelina advised no change in CPAP at 8cm), Reports difficulty sleeping, Reports fatigue, Denies fever(s), Denies frequent falls, Reports headache(s), Reports lethargy and Denies malaise Details: WEARING HER CPAP FROM NEUROLOGY GROUP Eyes Reports as per HPI, Reports blurry vision, Reports change in vision, Denies diplopia, Reports itchy eyes, Denies loss of vision and Reports requires corrective lenses ENT Reports as per HPI, Denies abnormal hearing, Denies dysphagia, Reports dizziness (only with low BS), Reports dry mouth, Denies ear discharge, Denies otalgia, Reports headache(s), Denies hoarseness, Denies nasal congestion, Reports nasal discharge, Denies nasal obstruction, Denies neck pain, Reports post nasal drip, Reports sinus pressure and Denies sore throat Details: SEEING DR ZELAYA AND ALLERGIEST BOTH WELL DR ANDRADE AND DR AMBRIZ Card Reports as per HPI, Denies chest pain at rest, Denies chest pain with activity, Denies syncope, Denies edema, Denies irregular heart rhythm, Denies claudication, Denies leg edema, Denies lightheadedness, Denies palpitations, Denies dyspnea, Reports dyspnea on exertion, Reports orthopnea and Denies paroxysmal nocturnal dyspnea Resp Reports as per HPI, Reports change in phlegm color, Reports chest congestion, Reports cough, Denies hemoptysis, Reports excessive phlegm production, Denies dyspnea, Reports dyspnea on exertion and Reports wheezing Details: SEE PULMONARY AND DR ANDRADE REPORTS REMAINS ON TRIPLE ANTIBIOTICS ALTHOUGH SHE HAS HAD NEGATIVE ACID FAST STAINS GI Denies abdominal pain, Denies melena, Denies hematochezia, Denies change in bowel habits, Denies change in stool character, Denies constipation, Denies dysphagia, Reports dyspepsia, Reports heartburn, Denies diarrhea, Reports nausea, Denies vomiting and Denies hematemesis Genitourinary: Reports difficulty voiding, nocturia (x2), hot flashes, urinary frequency, urinary urgency and vaginal dryness; Denies hematuria, dysuria, urinary incontinence, urinary hesitancy or vaginal discharge Musc Reports as per HPI, Reports abnormal gait, Reports back pain, Reports myalgias, Reports arthralgias, Denies neck pain, Reports numbness, Reports radiating pain into limb, Reports stiffness and Reports tingling Details: FOLLOWS WITH DR HELMS AND DR WILKINSON Skin/Breast Reports dry skin, Denies pruritus, Denies rash, Denies skin ulcer and Denies sores Neuro Reports as per HPI, Denies abnormal hearing, Reports abnormal gait, Reports dizziness (only with low BS), Denies syncope, Denies frequent falls, Reports headache(s), Denies loss of vision, Denies memory loss, Reports numbness, Denies seizure-like activity, Reports tingling, Reports paresthesias and Denies tremor(s) Psych Reports abnormal sleep pattern, Reports anxiety, Reports depression, Reports difficulty concentrating, Denies hopelessness, Denies irritability, Denies anhedonia, Denies memory loss, Denies mood swings, Denies panic attacks, Denies hallucinations, Denies homicidal ideation and Denies suicidal ideation Endo Reports as per HPI, Denies cold intolerance, Reports fatigue, Denies flushing, Reports heat intolerance, Denies polyphagia, Denies polydipsia, Denies polyuria and Denies palpitations Ryan/Lymph Reports easy bruising Aller/Immun Reports as per HPI, Reports GI upset with certain foods, Reports itchy eyes, Reports seasonal rhinorrhea and Reports wheezing Exam Const General: no acute distress, anxious and ill appearing chronically Nutritional Appearance: obese Orientation: alert, awake and oriented x3 HENMT Head: normocephalic and atraumatic Ears: external ears normal, TM's normal bilaterally and EAC's normal General nose exam: external nose normal and no nasal polyps; no epistaxis Face and sinus: sinuses nontender and face symmetric Mouth: oral mucosae normal, lip normal and tongue normal Teeth and gingiva: dentures Throat: posterior oropharynx normal Neck Neck: normal visual inspection, no lymphadenopathy, supple and nontender Thyroid: thyroid normal Carotids: normal carotid upstroke and no bruits Lymphatic: no lymphadenopathy noted Resp Effort Inspection: normal respiratory effort, no grunting, not labored, no pursed lip breathing, no stridor, tachypneic, prolonged expiratory phase and symmetric chest movement Auscultation: rhonchi and wheezes Cardio Rate: regular rate Rhythm: regular rhythm Heart Sounds: S1 normal, S2 normal and murmur systolic holo, II/ and at the apex Bruits: no carotid bruits Pulses: posterior tibial pulses present GI Inspection: Yes obesity Palpation: soft, no guarding and nontender Auscultation: normal bowel sounds Musc Cervical Spine: no cervical muscular tenderness Thoracic/Lumbar Spine: straight leg raise negative bilaterally, kyphosis and no paraspinal tenderness Pelvis: sciatic notch tenderness Skin Rashes: no rashes Trauma: laceration (TINY ON FINGER IN hpi) Wounds: no wounds Neuro General: patient alert, patient awake, patient oriented x3, tone normal, moves all extremities and no focal motor deficits Cranial Nerves: sense of smell intact, PERRL, EOM intact bilaterally, no nystagmus, able to rotate head bilaterally and able to elevate shoulders bilaterally Cognition: normal cognition Speech: speech normal Gait: normal gait Motor: muscle tone normal throughout, strength 5/5 throughout and no pronator drift Extrem General: no clubbing, cyanosis or edema and no calf tenderness Psych Appearance: grossly normal Mental Status: mental status grossly normal Speech and Movement: speech clear and slowed movement Mood: anxious mood Affect: anxious affect Attitude: cooperative Thought Process: normal Thought Content: normal Insight: fair Judgment: fair Immunizations diphth,pertus(acell),tetanus Performing Provider: Lindsay Chapman DO Administered by: Bee Blankenship on 12/24/19 15:12 Dose Route Admin Location Lot Number Expiration Date NDC Manufactu rer 0.5 mL IM Left deltoid [id number] 10/10/21 [id number] [employer] VIS Given Date VIS Provided VIS Publication Date 12/24/19 Single Vaccine 19 Eligibility Eligibility Date Funding Source Not [facility] Eligible 12/24/19 Private Assessment Plan Assessment Plan (1) 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 I did review her blood sugar logs. I did increase her daytime dose of insulin. She has blood sugars as low as 80 in the morning so I will leave her nighttime dose the same. However later in the day blood sugars are up towards 250 so we will increase her morning dose and have her get her fasting labs which are way overdue. She does follow with neurology for her neuropathy and her myasthenia gravis. She does follow with GI for her reflux and gastroparesis complications.Full diabetes care next time (2) Allergic rhinitis: Status: Chronic Category: Medical Plan - Lindsay Chapman, DO: Nasal congestion, Intermittent cough negative COVID test earlier this month some of it is likely her baseline asthma and allergies she is following with infectious disease who has back 3- slides for her MAC and she is on triple baseline antibiotic for her MAC, she also follows with her suction worker pulmonary Dr. 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 IgG levels have gone back to near normal range. She is on long-term azithromycin as part of her MAC regimen she is on both Flonase and Advair as well as loratadine but she is on immune suppression with methotrexate (3) Mixed hyperlipidemia: Status: Chronic Code(s): E78.2 - Mixed hyperlipidemia Category: Medical Plan - Lindsay Chapman, DO: Overdue for routine labs (4) Hypertension, essential: Status: Chronic Category: Medical Plan - Lindsay Huitron DO: Diet exerciseWeight loss all discussed stable on enalapril (5) Heme positive stool: Status: Acute Comment: Patient has seen both Dr. Anderson and Dr. Guerra for endoscopy but too ill at this point with MAC to have colonoscopy -but will need panendoscopy once she improves Code(s): R19.5 - Other fecal abnormalities Category: Medical Plan - Lindsay Chapman, DO: She is seen by Dr. Anderson 1 year ago she had upper endoscopy she is due to follow-up with Dr. Franco next month and they can discuss timing of upper and lower scopes she denies any melena or hematochezia her GI symptoms have been stable less bloating less indigestion less nausea no vomiting but she did have a heme positive stool about a year ago at the time was too sick to have lower scopes but should revisit it when she sees GI next month (6) Mycobacterium avium infection: Status: Chronic Comment: April 2019-being managed by Dr. Ambriz and Dr. Andrade-patient on full year of therapy-needs clearance from both physicians before she can have elective procedure for her cataracts Code(s): A31.0 - Pulmonary mycobacterial infection Category: Medical Plan - Lindsay Huitron, DO: ,,,..Patient has multiple issues including myasthenia gravis requiring chronic immunosuppression with methotrexate severe persistent asthma diabetes which she is long overdue for management since she has not done blood work however first step in getting her cleared for cataract surgery is for infectious disease to clear her although she still has 9 months of therapy her infectious disease doctor has done first set of acid-fast stains and sputum is clear they do not see any Mycobacterium avium so she feels although she has months yet of antibiotic triple regimen she can schedule cataract from infectious disease point of view patient still has to get blood work which she is months overdue she will still need to get an EKG but I will try to work to get things so she can get cleared if she does her blood work and returns for diabetes care in the near future (7) Depression with anxiety: Status: Chronic Code(s): F41.8 - Other specified anxiety disorders Category: Medical Plan - Lindsay Chapman, DO: .She actually feels she is doing pretty well on current low-dose Zoloft we can increase the dose but she feels it is currently sufficient Orders Other Medications: Changed: From: insulin glargine 65 units (0.65 mL) subcut HS 33 mL 5RF diabetes To: insulin glargine (Basaglar KwikPen U-100 Insulin) drop to 60 if no bedtime snack 65 units (0.65 mL) subcut HS 30 mL 5RF diabetes Discontinued: famotidine Discontinued Reason: Clinically Indicated 20 mg PO HS 90 tabs 1RF topiramate (Topamax) 1 tab PO DAILY 30 tabs 5RF Other Orders: Orders: INJ - Tdap (> age 7) 12/24/19 Z23 Instructions: Type 2 Diabetes in Adults: New Diagnosis (GEN) DASH Eating Plan (GEN) Hypertension (GEN) Electronically Signed By: <Electronically signed by Lindsay Chapman DO> Date/Time Signed: 01/25/201947 Name Value Range Interpretation Code Description Data Sarah rce(s) Supporting Document(s) ID Date Data Source [id number] 11/05/2019 06:27:00 AM EDT @11/05/19 0627: Aerobic ID Maddison added. R FLXG = CHGAERID.Moderate PMNsSquamous cells - FewSpecimen Quality - Fair @11/05/19 0627: Aerobic ID Maddison added. R FLXG = CHGAERID. Name Value Range Interpretation Code Description Data Sarah rce(s) Supporting Document(s) ID Date Data Source [id number] 12/18/2019 03:07:00 PM EDT @11/05/19 0627: Aerobic ID Maddison added. R FLXG = CHGAERID.Moderate PMNsSquamous cells - FewSpecimen Quality - Fair @11/05/19 0627: Aerobic ID Maddison added. R FLXG = CHGAERID. Name Value Range Interpretation Code Description Data Sarah rce(s) Supporting Document(s) Specimen preparation [Type] of Unspecified specimen Concentration ID Date Data Source [id number] 11/05/2019 06:27:00 AM EDT @11/05/19 0627: Aerobic ID Maddison added. R FLXG = CHGAERID.Moderate PMNsSquamous cells - FewSpecimen Quality - Fair @11/05/19 0627: Aerobic ID Maddison added. R FLXG = CHGAERID. Name Value Range Interpretation Code Description Data Sarah rce(s) Supporting Document(s) Bacteria identified in Sputum by Culture Quantiy of growth Few ID Date Data Source [id number] 12/18/2019 03:07:00 PM EDT @11/05/19 0627: Aerobic ID Maddison added. R FLXG = CHGAERID.Moderate PMNsSquamous cells - FewSpecimen Quality - Fair @11/05/19 0627: Aerobic ID Maddison added. R FLXG = CHGAERID. Name Value Range Interpretation Code Description Data Sarah rce(s) Supporting Document(s) Microscopic observation [Identifier] in Unspecified sp ecimen by Acid fast stain Negative [facility] Performed at: RN - [facility] [address] [place] [id number] Director: Constanza Saxena MD, Phone: [phone] ID Date Data Source [id number] 11/05/2019 06:27:00 AM EDT @11/05/19 0627: Aerobic ID Maddison added. R FLXG = CHGAERID.Moderate PMNsSquamous cells - FewSpecimen Quality - Fair @11/05/19 06: Aerobic ID Maddison added. R FLXG = CHGAERID. Name Value Range Interpretation Code Description Data Sarah rce(s) Supporting Document(s) TRIMETHOPRIM/SULFAMETHOXAZOLE <2/38 [place] sceptible. Indicates for microbiology susceptibilities only. Amoxicillin+Clavulanate [Susceptibility] by Minimum inhibitory concentration (TYLER) >16/8 Resistant. Indicates for microbiology antonio ceptibilities only. Ampicillin [Susceptibility] by Minimum inhibitory concentration (TYLER) >16 Resistant. Indicates for microbiology susceptibilities only. Ampicillin+Sulbactam [Susceptibility] by Minimum inhib itory concentration (TYLER) >16/8 Resistant. Indicates for microbiology susceptibi lities only. Cefotaxime [Susceptibility] by Minimum inhibitory concentration (TYLER) <2 Resistant. Indicates for microbiology susceptibilities only. Ceftriaxone [Susceptibility] by Minimum inhibitory concentration (TYLER) <1 Resistant. Indicates for microbiology susceptibilities only. Ciprofloxacin [Susceptibility] by Minimum inhibitory concentrati on (TYLER) <1 Susceptible. Indicates for microbiology susceptibilities only. Ertapenem [Susceptibility] by Minimum inhibitory concentration ( TYLER) <0.5 Susceptible. Indicates for microbiology susceptibilities only. Gentamicin [Susceptibility] by Minimum inhibitory concentration (TYLER) <2 Susceptible. Indicates for microbiology susceptibilities only. Imipenem [Susceptibility] by Minimum inhibitory concentration (M IC) <1 Susceptible. Indicates for microbiology susceptibilities only. Tetracycline [Susceptibility] by Minimum inhibitory concentratio n (TYLER) <4 Susceptible. Indicates for microbiology susceptibilities only. Tobramycin [Susceptibility] by Minimum inhibitory concentration (TYLER) <4 Susceptible. Indicates for microbiology susceptibilities only. [facility] Levofloxacin [Susceptibility] by Minimum inhibitory concentratio n (TYLER) <2 Susceptible. Indicates for microbiology susceptibilities only. Cefepime [Susceptibility] by Minimum inhibitory concentration (M IC) <8 Susceptible. Indicates for microbiology susceptibilities only. Piperacillin+Tazobactam [Susceptibility] by Minimum inhibitory concentration (TYLER) <16 Resistant. Indicates for microbiology antonio ceptibilities only. ID Date Data Source [id number] 12/18/2019 03:07:00 PM EDT @11/05/19 0627: Aerobic ID Maddison added. R FLXG = CHGAERID.Moderate PMNsSquamous cells - FewSpecimen Quality - Fair @11/05/19626: Aerobic ID Maddison added. R FLXG = CHGAERID. Name Value Range Interpretation Code Description Data Sarah rce(s) Supporting Document(s) Mycobacterium sp [Presence] in Unspecifi ed specimen by Organism specific culture Negative [facility] ital No acid fast bacilli isolated after 6 we eks.Performed at: RN - [facility] [address] [id number] Director: Constanza Saxena MD, Phone: [phone] ID Date Data Source [id number] 10/29/2019 08:07:00 AM EDT Patient Name: ISIDRA YANEZ : 1960 Sex: F Pt Unit #: [id number] Location:[facility] Provider: Visit Date/Time: 10/29/19 Primary Insurance: [facility] Secondary Insurance: Self Pay Intake Intake Visit Reasons: Anxiety follow-up Nurse Note: Visit originally scheduled for diabetes care, patient is very overdue on diabetic labs. has been reminded several times to have them done but she still has not completed. She recently had telephone visit for increased anxiety. She should schedule annual wellness visit this year also. Needs refill on her loratadine, basaglar, admelog to [facility]. Taking her xanax TID and thinks it is helping some. Breathing is starting to get bad again she feels. She is taking only one nexium daily (RX was sent for twice daily dosing on 10/04--will need to check insurance formulary vs what pharmacy is dispensing from to see where the issue is). she is having breakthrough just at night with the once daily dosing. she says she is still taking ranitidine nightly also. 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 not sure why she is only take it once a day? she hasn't had ranitidine filled since JUNE according to records at [facility] (still on med lisT) Allergies Sulfa (Sulfonamide Antibiotics) Allergy (Intermediate, Verified 03/19/19 14:40) PRURITIS, HIVES fluoxetine [Fluoxetine] Allergy (Unknown, Verified 03/19/19 14:40) Other, not listed metformin Adverse Reaction (Severe, Verified 03/19/19 14:40) LACTIC ACIDOSIS NSAIDS (Non-Steroidal Anti-Inflamma Adverse Reaction (Severe, Verified 03/19/19 14:40) GI Upset metoclopramide [Metoclopramide] Adverse Reaction (Intermediate, Verified 03/19/19 14:40) Dyskinesia Fall Risk History of falls: Yes Ambulatory Aid:: Crutches Cane or Walker Gait/Transferring:: Impaired Medications:: Psychotropics PHQ-2/9 Over the last 2 weeks, how often have you been bothered by any of the following problems? 1. Little interest or pleasure in doing things: nearly every day 2. Feeling down, depressed, or hopeless: nearly every day Total score: 6 3. Trouble falling or staying asleep, or sleeping too much: nearly every day 4. Feeling tired or having little energy: nearly every day 5. Poor appetite or overeating: not at all 6. Feeling bad about yourself - or that you are a failure or have let yourself and your family down: not at all 7. Trouble concentrating on things, such as reading the newspaper or watching television: not at all 8. Moving or speaking so slowly that other people could have noticed? - Or the opposite - being so fidgety or restless that you have been moving around a lot more than usual: not at all 9. Thoughts that you would be better off or of hurting yourself in some way: not at all Total score: 12 If you checked off any problems, how difficult have these problems made it for you to do your work, take care of things at home, or get along with other people?: extremely difficult Source: Developed by Drs. Hernando Givens, Radha Cantu, Salvatore Chakraborty and colleagues, with an educational andrew from [employer]. HIV Testing Offer - ages 13-64 HIV testing Offer: No Requirement for HIV testing offer been met?: Not in age range Hep C Testing Offered: No Hep C Requirement met: Patient reports past refusal SBIRT Annual Questionnaire Are you currently in recovery for alcohol or substance use?: No How many times in the past year have you had 4 or more drinks in a day?: None How many times in the past year have you used a recreational drug or used a prescription medication for nonmedical reasons?: None Do you need a note to return Do you need a note to return to daycare/s chool/sports/work: No PFS Medical History (Updated 10/29/19 @ 15:15 by Lindsay Chapman DO) Allergic rhinitis Anxiety and depression Aspiration pneumonia due to regurgitated gastric secretions (Inactive) Asthma w/ status asthmaticus (Resolved) Atrophic vaginitis Benign familial tremor Bilateral pneumonia (Resolved) Bronchiectasis (Acute) Chronic fatigue syndrome Chronic pansinusitis Common variable immunodeficiency (02/02/16) Depression with anxiety (Chronic) Diabetes mellitus (Inactive) E-coli UTI EKG abnormalities (Ruled-out) Enterobacter cloacae pneumonia (Inactive) Eustachian tube dysfunction (Resolved) Exacerbation of asthma (Ruled-out) Gastroparesis GERD (gastroesophageal reflux disease) (Chronic) Heme positive stool (Acute) Herpes zoster Hiatal hernia Hypertension, essential Influenza A (Resolved) Influenza B (09/06/17) Lactic acidosis (02/05/17) Mild vitamin D deficiency (Chronic) Mixed hyperlipidemia (Chronic) Mixed stress and urge urinary inco ntinence (Chronic) multiple gastric ulcers-[place] scope 11-8-18 (05/18/18) Myasthenia gravis (Chronic) Mycobacterium avium infection (Chronic) Nausea (Ruled-out 12/19/18) DMITRI on CPAP (Chronic) Pulmonary hypertension Pulmonary nodules Severe persistent asthma dependent on systemic steroids with acute exacerbation (Chronic) Sinobronchitis (Inactive) SOB (shortness of breath) (Ruled-out) Temporal mandibular joint disorder Viral upper respiratory infection (Ruled-out) Surgical History History of - surgery History of - surgery (05/18/18) History of carpal tunnel surgery (Resolved) History of colonoscopy History of hysterectomy History of sinus surgery (03/09/18) Status post oophorectomy Family History Mother Liver cell carcinoma Father No problems noted. Sister Diabetes Hyperlipidemia Hypothyroidism Carcinoma of breast, Onset Age: 30 Sister Carcinoma of breast, Onset Age: 50 Other Carcinoma of colon Social History Does the Patient have a Healthcare Proxy: Yes (/sister) Does Patient have a DNR?: No Does Patient have a Living Will?: No Does the Patient have a MOLST?: No Advance Directives on File or in chart?: No household members: spouse housing: house current occupation: disabled pets and animals: Yes Hx Recent Travel (where): No alcohol intake: never HPI Additional HPI HPI Details: pt gave consent for phone visit.started at 250pm. ended 325pm 35 minutes Talk to the computer she recently was given prednisone from Dr. Andrade she had increased cough and dyspnea and completed the prednisone says she feels about the same she still has cough with yellow sputum she said she remains on her triple antibiotic regimen for MAC pneumonia. The extra prednisone really did not change anything she is not worse but she really is not better either she was tested for COVID-19 and that was negative>she is using neb of albuterol 4x daily.She sees Hans december 16.She sees Renetta January 02.she says BS 98- 250.allergy visit is due November 13.neurology is due November 13 also. Says she needs refill on loratadine. Seasonal allergies are flaring especially if she goes outdoors. She has been trying to go out for a short walk most days. She says she can only manage 5 or 10 minutes but it is better than what she has been doing she has been able to do some short bursts of housework like dishes and laundry. She tires easily but energy is been some better. Review of Systems Const Denies chills, Reports difficulty sleeping, Reports excessive sweating, Reports fatigue, Denies fever(s), Denies frequent falls, Denies headache(s), Denies increased appetite and Reports lethargy Eyes Denies eye discharge, Denies floaters, Denies irritation, Reports itchy eyes, Denies loss of vision, Reports requires corrective lenses and Denies seeing flashes ENT Denies dysphagia, Denies vertigo, Denies dizziness, Reports dry mouth, Denies ear discharge, Denies otalgia, Denies facial pain, Denies headache(s), Denies hoarseness, Denies lip swelling, Denies mouth pain, Reports nasal congestion, Reports nasal discharge, Denies odynophagia, Denies disequilibrium, Reports post nasal drip, Denies sinus pain, Denies sinus pressure, Denies sore throat, Denies throat swelling and Denies tongue swelling Card Denies chest pain, Denies chest pain at rest, Denies chest pain with activity, Denies syncope, Denies edema, Denies irregular heart rhythm, Denies claudication, Denies leg ulcers, Denies leg edema, Denies lightheadedness, Denies dyspnea, Reports dyspnea on exertion, Denies orthopnea and Denies paroxysmal nocturnal dyspnea Resp Denies change in phlegm color (still light yellow and only in am), Reports chest congestion, Reports cough, Denies hemoptysis, Denies excessive phlegm production, Denies pain with cough, Denies dyspnea, Reports dyspnea on exertion and Reports wheezing GI Denies abdominal pain, Denies belching, Denies hematochezia, Denies change in bowel habits, Denies change in stool character, Denies constipation, Denies dysphagia, Reports heartburn (mainly at night -still sleeping upright), Denies diarrhea, Denies nausea, Denies odynophagia, Denies vomiting and Denies hematemesis Denies hematuria, Denies urinary frequency, Denies difficulty voiding, Reports post void dribbling, Reports hot flashes, Reports urinary incontinence, Denies urinary hesitancy and Reports urinary urgency Musc Reports abnormal gait, Reports back pain, Reports arthralgias, Reports numbness, Reports radiating pain into limb, Reports stiffness and Reports tingling Details: Status quo Skin/Breast Reports dry skin, Denies pruritus, Denies rash, Denies skin ulcer, Denies unusual bruising and Denies wounds Neuro Reports as per HPI, Reports abnormal gait, Denies vertigo, Denies dizziness, Denies syncope, Denies frequent falls, Denies headache(s), Denies loss of vision, Reports numbness, Reports restless legs, Denies seizure-like activity, Reports tingling, Reports paresthesias, Reports tremor(s) and Denies disequilibrium Psych Reports as per HPI, Reports abnormal sleep pattern, Reports anxiety, Denies change in appetite, Reports depression, Denies difficulty concentrating, Reports irritability, Reports anhedonia, Denies mood swings, Reports panic attacks, Denies homicidal ideation and Denies suicidal ideation Endo Denies cold intolerance, Reports excessive sweating, Reports fatigue, Denies flushing, Reports heat intolerance, Denies polyphagia, Denies polydipsia and Denies polyuria Ryan/Lymph Denies easy bruising Aller/Immun Reports GI upset with certain foods, Denies urticaria, Reports itchy eyes, Denies lip swelling, Reports seasonal rhinorrhea, Denies throat swelling, Denies tongue swelling and Reports wheezing Quality Reporting Depression/Bipolar (159/160/161/169/177) Total score: 12 Assessment Plan Assessment Plan (1) Anxiety and depression: SNOMED Code(s): 563739223 Category: Medical Plan - Lindsay Chapman, DO: She just recently increase Zoloft. She is still taking Xanax 2-3 times daily and it does help. We discussed that if anxiety is still high we can increase Zoloft again but she is only been on it 2 weeks so I would just leave it at the 100 mg dose. She is trying to go for short walks outside her anxiety over the COVID still remains high which is partly why she did not do blood work. We discussed the new blood draw room at the hospital that she could pull up to and come in contact with only person who would draw her blood (2) Mycobacterium avium infection: Status: Chronic Comment: April 2019-being managed by Dr. Ambriz and Dr. Andrade Code(s): A31.0 - Pulmonary mycobacterial infection SNOMED Code(s): 467905825 Category: Medical Plan - Lindsay Huitron, DO: She had recent prescription for antibiotic and prednisone. She has morning sputum which is yellow. She did course of prednisone and additional antibiotic on top of her triple antibiotic regimen she is on for months for her MAC pneumonia. She says it really did not change things. She completed it and did not follow-up with Dr. Andrade so I encouraged her to call her and let her know how she is doing. She does not sound bad on the phone. She has not checked any peak flows her home O2 sats have been in the upper 90s. She is felt well enough that she can go for short walks outdoors for 5 to 10 minutes so this suggests that she is doing better she has follow-up appointments with her suction worker in about 2 weeks and several specialty appointments coming up over the next couple months. (3) Mixed stress and urge urinary incontinence: Status: Chronic Comment: Wears undergarments Code(s): N39.46 - Mixed incontinence SNOMED Code(s): 218346724 Category: Medical Plan - Lindsay Chapman, DO: She wears undergarments and incontinence gets worse with cough she said her undergarments did come from the [facility] (4) Severe persistent asthma dependent on systemic steroids with acute exacerbation: Status: Chronic Comment: Patient changed back to pulmonary group and [place]-Dr. Ambriz and his nurse practitioner-PFTs do not show obstruction-she does not have COPD-she has severe persistent asthma Code(s): J45.51 - Severe persistent asthma with (acute) exacerbation; Z79.52 - terminal superintendent (current) use of systemic steroids SNOMED Code(s): 635703482 Category: Medical Plan - Lindsay Chapamn, DO: She says things are status quo she is doing nebulizer 4 times a day. 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 Suggest she go up to 65 units of Lantus. She is taking the generic basalgar. She needs to schedule an actual diabetes appointment and do blood work and come in in person she says she will think this over she is not sure if she wants to or not we talked about the lab draw a room she is checking her blood sugars 2-3 times daily at home and taking coverage (6) Depression with anxiety: Status: Chronic Code(s): F41.8 - Other specified anxiety disorders SNOMED Code(s): 208740355 Category: Medical Plan - Lindsay Chapman, DO: Severe anxiety over COVID some better with Xanax and increased dose of Zoloft depression screen still 12 declines referral to mental health (7) GERD (gastroesophageal reflux disease): Status: Chronic Comment: Was seeing Dr. Anderson, but changed to Dr. Guerra in 2018 Code(s): K21.9 - Gastro- esophageal reflux disease without esophagitis SNOMED Code(s): 365122632 Category: Medical Plan - Lindsay Chapman, DO: Breakthrough indigestion almost every day. Should be taking Nexium breakfast and supper and will add substitute for her Zantac at bedtime. Insurance will cover Pepcid Medications: Refilled: esomeprazole magnesium 40 mg PO BID 60 caps 5RF (8) DMITRI on CPAP: Status: Chronic Comment: daytime fatigue maybe depression or MG or back to back hospitalizations,but [facility] doing repeat sleep study Code(s): G47.33 - Obstructive sleep apnea (adult) (pediatric); Z99.89 - Dependence on other enabling machines and devices SNOMED Code(s): 02997899 Category: Medical Plan - Lindsay Chapman, DO: Strict compliance with CPAP advised she does have follow-up in about [address] Wilkinson. She also says seasonal allergies are flaring she is out of her loratadine so I sent refill on that Orders Other Medications: New: insulin glargine (Basaglar KwikPen U-100 Insulin) 65 units (0.65 mL) subcut HS 15 mL 5RF diabetes famotidine (Pepcid) 20 mg PO HS 90 tabs 1RF loratadine 10 mg PO DAILY 30 tabs 5RF Allergic rhinitis montelukast 10 mg PO HS 30 tabs 5RF Allergic rhinitis Refilled: esomeprazole magnesium 40 mg PO BID 60 caps 5RF J69.0, K31.84 insulin lispro (Humalog KwikPen (U-100) Insulin) 1-25 units per sliding scale 1 unit (0.01 mL) subcut QACHS 15 mL 5RF Discontinued: gabapentin Discontinued Reason: Clinically Indicated 300 mg PO TID 90 caps 5RF E11.42 ranitidine HCl Discontinued Reason: Reported during MED REC - Medication is D/C 300 mg (2 x 150 mg) PO HS 60 tabs 5RF gerd MDD 2 Follow Up: Patient has follow-up with multiple specialist over the next 6 weeks I would like to see her in about 6 to 7 weeks with her fasting labs for chronic care diabetes care severe asthma follow-up and anxiety follow- up 40 minutes Electronically Signed By: <Electronically signed by Lindsay Chapman DO> Date/Time Signed: 10/29/19 1530 Name Value Range Interpretation Code Description Data Sarah rce(s) Supporting Document(s) ID Date Data Source [id number] 10/15/2019 10:41:00 AM EDT Patient Name: ISIDRA YANEZ : 1960 Sex: F Pt Unit #: [id number] Location:[facility] Provider: Visit Date/Time: 10/15/19 Primary Insurance: [facility] Secondary Insurance: Self Pay Intake Intake Visit Reasons: Anxiety Nurse Note: Patient with increased anxiety, depression. Medications reviewed. No complaints of acute pain. 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 Associate Required: No Is patient in pain?: No Allergies Sulfa (Sulfonamide Antibiotics) Allergy (Intermediate, Verified 03/19/19 14:40) PRURITIS, HIVES fluoxetine [Fluoxetine] Allergy (Unknown, Verified 03/19/19 14:40) Other, not listed metformin Adverse Reaction (Severe, Verified 03/19/19 14:40) LACTIC ACIDOSIS NSAIDS (Non-Steroidal Anti-Inflamma Adverse Reaction (Severe, Verified 03/19/19 14:40) GI Upset metoclopramide [Metoclopramide] Adverse Reaction (Intermediate, Verified 03/19/19 14:40) Dyskinesia Medications acetaminophen (Tylenol Extra Strength) 1,000 mg PO Q6HRS PRN albuterol sulfate 90 mcg/actuation (Ventolin HFA) 2 puffs INH Q4HPRN PRN MDD 6 x albuterol sulfate 2.5 mg NEB Q4HPRN MDD 6 alprazolam (Xanax) 0.25 mg PO TIDPRN MDD 3 ascorbic acid (vitamin C) PO aspirin PO atorvastatin 40 mg PO DAILY azithromycin 500 mg PO QMWF blood sugar diagnostic (Zafgen VerGigsWiz) Use strips to test sugar before meals and at bedtime budesonide inhalation cyanocobalamin (vitamin B-12) (Vitamin B-12) 500 mcg PO DAILY enalapril maleate 2.5 mg PO DAILY epinephrine (EpiPen) 0.3 mg IM 1T ergocalciferol (vitamin D2) (Vitamin D2) 50,000 units PO 1XW MDD 1 esomeprazole magnesium 40 mg PO BID ethambutol 1,600 mg PO QDAY ferrous sulfate ER (iron ER) 325 mg PO BID fluticasone propion-salmeterol 113-14 mcg/actuation inhalation folic acid PO gabapentin 300 mg PO TID gabapentin 300 mg PO TID immun glob G(IgG)-pro-IgA 0- 50 (Hizentra) 20 grams subcut QWEEK insulin glargine (Basaglar KwikPen U-100 Insulin) 60 units subcut HS insulin lispro (Humalog KwikPen (U-100) Insulin) 1 unit (0.01 mL) subcut QACHS ipratropium-albuterol 0.5 mg-3 mg(2.5 mg base)/3 mL 3 mL inhalation QID MDD 4 Lactobacillus acidophilus PO lancets (Zafgen DelConnected Data Lancets) to be used AC and HS loratadine 10 mg PO DAILY methotrexate sodium PO montelukast 10 mg PO HS multivitamin (Daily Multi-Vitamin) 1 tab PO DAILY pen needle,diabetic dual safty (BD AutoShield Duo Pen Needle) MDD 5 prednisone PO pyridostigmine bromide (Mestinon) 60 mg PO QID MDD 4 ranitidine HCl 300 mg (2 x 150 mg) PO HS MDD 2 rifampin 300 mg PO QDAY ropinirole 2 mg PO BID MDD 2.5 ropinirole 2 mg PO BID sertraline 50 mg PO QDAY topiramate (Topamax) 100 mg PO BID umeclidinium 62.5 mcg/actuation (Incruse Ellipta) 1 inh inhalation QDAY zinc 50 mg PO QDAY Is last menstrual period known: No Post menopausal: Yes Patient : No Fall Risk History of falls: Yes Ambulatory Aid:: Crutches Cane or Walker Gait/Transferring:: Impaired Medications:: Antihypertensives Fall Risk education: She has walker scooter and cane and depending on how she is feeling she uses 1 of the 3, she currently is staying in her chair a lot, she rarely walks without 1 of the 3 assisting her gait, she hangs onto railing if she has steps to do, she does have grab bars she always turns on light if she gets up at night, discussed fall safety PHQ-2/9 Comment if patient declines to answer PHQ: Symptoms have increased over the past 4 to 6 weeks with outbreak of coronavirus 19 Over the last 2 weeks, how often have you been bothered by any of the following problems? 1. Little interest or pleasure in doing things: nearly every day 2. Feeling down, depressed, or hopeless: nearly every day Total score: 6 3. Trouble falling or staying asleep, or sleeping too much: nearly every day (Does not sleep well at night but done naps pretty much all day wearing her CPAP but not every night) 4. Feeling tired or having little energy: nearly every day 5. Poor appetite or overeating: several days 6. Feeling bad about yourself - or that you are a failure or have let yourself and your family down: several days 7. Trouble concentrating on things, such as reading the newspaper or watching television: nearly every day 8. Moving or speaking so slowly that other people could have noticed? - Or the opposite - being so fidgety or restless that you have been moving around a lot more than usual: several days 9. Thoughts that you would be better off or of hurting yourself in some way: not at all Total score: 18 If you checked off any problems, how difficult have these problems made it for you to do your work, take care of things at home, or get along with other people?: extremely difficult (She does not want to have counseling she is agreeable to increase Zoloft to 100 and take Xanax as needed) Source: Developed by Drs. Hernando Givens, Radha Cantu, Salvatore Chakraborty and colleagues, with an educational andrew from [employer]. HIV Testing Offer - ages 13-64 HIV testing Offer: No Requirement for HIV testing offer been met?: Not in age range Hep C Testing Offered: No Hep C Requirement met: Patient reports past refusal SBIRT Annual Questionnaire Are you currently in recovery for alcohol or substance use?: No ON LICENSE OF [facility] Medical History (Updated 10/15/19 @ 13:18 by Lindsay Chapman DO) 05/15/17 right middle lobe infiltrate- normal tommy community-acquired pneumonia (09/27/16) diabetic gastroparesis exacerbation of asthma hospital admission (05/30/17) hospitalized again for pneumonia (02/05/17) left lower lobe nodule recurrent community-acquired pneumonia (02/15/17) Right upper lobe pneumonia , typically at least 2-3 exacerbations requiring predniso... . Recurrent bouts of bronchospasm which responded to ster... 07/2016 asthmatic bronchitis 17 left lower and right middle lobe infiltrates on C... Allergic rhinitis Anxiety and depression Aspiration pneumonia due to regurgitated gastric secretions (Inactive) Asthma w/ status asthmaticus (Resolved) Atrophic vaginitis Benign familial tremor Bilateral pneumonia (Resolved) Bronchiectasis (Acute) Chronic fatigue syndrome Chronic pansinusitis Common variable immunodeficiency (02/02/16) Cough (Inactive) Depression with anxiety (Chronic) Diabetes mellitus (Chronic) E- coli UTI EKG abnormalities (Ruled-out) Enterobacter cloacae pneumonia (Inactive) Eustachian tube dysfunction (Resolved) Exacerbation of asthma (Ruled-out) Gastroesophageal reflux disease Gastroparesis GERD (gastroesophageal reflux disease) (Chronic) Heme positive stool (Acute) Herpes zoster Hiatal hernia Hypertension, essential Influenza A (Resolved) Influenza B (09/06/17) Lactic acidosis (02/05/17) LLL pneumonia (Resolved 01/14/17) Mild vitamin D deficiency (Chronic) Mixed hyperlipidemia (Chronic) Mixed stress and urge urinary incontinence (Chronic) multiple gastric ulcers- Dennisek scope 05-18-18 (05/18/18) Myasthenia gravis (Chronic) Mycobacterium avium infection (Acute) Nausea (Ruled-out 12/19/18) DMITRI on CPAP (Chronic) Pulmonary hypertension Pulmonary nodules Severe persistent asthma dependent on systemic steroids with acute exacerbation (Chronic) Sinobronchitis (Inactive) SOB (shortness of breath) (Ruled-out) Temporal mandibular joint disorder Viral upper respiratory infection (Ruled-out) Surgical History History of - surgery History of - surgery (05/18/18) History of carpal tunnel surgery (Resolved) History of colonoscopy History of hysterectomy History of sinus surgery (03/09/18) Status post oophorectomy Social History Does the Patient have a Healthcare Proxy: Yes (/sister) Does Patient have a DNR?: No Does Patient have a Living Will?: No Does the Patient have a MOLST?: No Advance Directives on File or in chart?: No household members: spouse housing: house current occupation: disabled pets and animals: Yes Hx Recent Travel (where): No alcohol intake: never HPI Additional HPI HPI Details: My nurse informed me again patient called the office irritated and tearful saying she needed her form filled out to get incontinence pads. She had apparently called office earlier in September and left a message with ground crewman Tristian Thomas. I did not get the message. However part of the issue was patient needed to call the incontinence pad company herself. They need a new form filled out but she needed to call and get the form faxed here in order for me to complete it. My nurse took care of this and since she is not getting out and moving about and is pretty much staying in her chair she is using more incontinence pads. She called here last week several times wanting me to call in prednisone and antibiotic. She had contacted her infectious disease doctor who did call her back and did call her in prednisone. But it was very apparent she was frantic and extremely anxious. She called the local tanker truck driver several times. Even after I offered over the phone advice she still called crying and talking to covering providers nurse in tears. She had been told by staff that she would get a call back. She was too impatient and frantic to wait for her call. In the end she did call her in an antibiotic in addition to the 3 she is on at baseline as well as extra prednisone. From the number of calls we have gotten from her in the last week with her tearful and frantic it is very obvious she is having significant increased anxiety. She has not had a refill of Xanax in [facility] a year. She does have myasthenia we do not want her taking it excessively but at this point in time I think she would benefit from a refill. She is also on just low-dose Zoloft. She is on just 50 mg I would recommend we increase the dose to 100 and go from there. She is not able to get out. Her sisters are very supportive. She can talk to them on the phone she is not able to see them she is not able to see her grandchildren all of this is very stressful for her. Because of this I did recommend a telephone visit she agreed to this and phone consent is scanned in. Upon chart review [facility]ab even after told her not to she called her and told her this was NOT neccessary as she had been sick since 24 September and if it was COVID she would have significantly worsened and ended up in the hospital and with her underlying lung disease most likely have or at a minimum ended up on a ventilator so she was sure patient did not have coronavirus. Even after infectious disease doctor called her back I see she still went to the call first for culture. Again demonstrating her intense anxiety over this issue.1245pm start. end 1256 11 minutes Anxiety she is taking Zoloft 50mg po daily Panic attacks: Yes Current Symptoms: Reports palpitations, tachycardia, dyspnea, trembling, nausea, fear of dying, numbness, tingling and hot flashes; Denies fee ling of choking, chest pain, dizziness or chills Agoraphobia: Yes Separation anxiety disorder: No Social phobia: Yes Specific phobia: Yes Other: COVID Hypochondriasis: No Body dysmorphic disorder: No Obsessive compulsive disorder: No Generalized anxiety: Yes Post traumatic stress disorder: No Acute stress disorder: Yes Previous psychiatric history: Yes Previous inpatient psychiatric hospitalization: No Other previous psychiatric treatment programs: none History of suicidal ideation: No History of suicide attempt: No Medically hospitalized: Yes History of self injurious behavior: No History of violence: No Review of Systems Const Denies body aches, Denies chills, Reports daytime sleepiness, Reports difficulty sleeping, Denies excessive sweating, Reports fatigue, Denies fever(s), Denies headache(s), Reports increased appetite, Reports lethargy, Reports malaise, Reports night sweats, Reports poor appetite (Part of the time she eats everything in sight part of the time she does not eat anything at all does not think she has had any low blood sugars) and Reports weight gain Details: Not wearing her CPAP as faithfully as she was not checking her blood sugars at all but is still taking her long-acting insulin says she just is not motivated to do much of anything Eyes Denies blurry vision, Denies irritation, Denies loss of vision and Reports requires corrective lenses ENT Denies dysphagia, Denies dizziness, Denies facial pain, Denies headache(s), Reports hoarseness, Reports nasal congestion, Reports nasal discharge, Denies neck mass, Denies odynophagia, Reports disequilibrium, Reports post nasal drip, Denies sinus pain, Denies sinus pressure and Reports sore throat (On and off for 3 weeks) Card Denies chest pain, Denies chest pain at rest, Denies chest pain with activity, Denies syncope, Reports rapid heart rate (Tach), Denies edema, Denies irregular heart rhythm, Denies claudication, Denies leg ulcers, Reports leg edema (On and off), Reports palpitations, Reports dyspnea, Reports dyspnea on exertion, Reports orthopnea (Sometimes) and Denies paroxysmal nocturnal dyspnea Details: Can feel like her heart is racing during panic attack but not normally, shortness of breath with activity, occasionally when she is laying down Resp Reports as per HPI, Reports chest congestion, Reports cough, Denies hemoptysis, Denies excessive phlegm production, Reports dyspnea, Reports dyspnea on exertion and Reports wheezing Details: She is on tapered course from her infectious disease doctor of 40 of prednisone for 4 days, tomorrow she will start 30 for 4 days, 20 for 4 days, she says she got a call this morning from [facility] that her vazquez 19 virus swab was negative GI Reports belching, Denies bloating, Denies change in bowel habits, Denies change in stool character, Denies cramping, Denies dysphagia, Reports heartburn, Denies diarrhea, Reports nausea, Denies odynophagia, Denies vomiting and Denies hematemesis Details: Often has heartburn and nausea does not attribute it to any food Denies urinary frequency, Denies difficulty voiding, Reports post void dribbling, Reports hot flashes, Denies dysuria, Reports urinary incontinence, Denies urinary hesitancy and Reports urinary urgency Details: Going through anywhere between 3 and 4 pads daily says she likes to get 12 pack of her undergarments says she got some last month but having trouble getting them this month Musc Reports numbness and Reports tingling Details: No change in her chronic joint stiffness and occasional tingling in her feet Skin/Breast Reports dry skin, Denies pruritus, Denies erythema and Denies rash Neuro Denies abnormal speech, Denies dizziness, Denies syncope, Denies headache(s), Denies loss of vision, Reports numbness, Reports restless legs, Denies convulsions, Denies seizure-like activity, Reports tingling, Reports paresthesias, Denies tremor(s) and Reports disequilibrium Details: On methotrexate from her neurologist denies dysarthria denies any new falls numbness and tingling is the same Psych Reports abnormal sleep pattern, Reports anxiety, Reports change in appetite, Reports depression, Reports difficulty concentrating, Denies auditory hallucinations, Reports hopelessness, Reports irritability, Reports anhedonia, Reports mood swings, Reports panic attacks, Denies visual hallucinations, Denies hallucinations, Denies tactile hallucinations, Denies homicidal ideation and Denies suicidal ideation Details: Misses her grandchildren misses her siblings afraid of getting coronavirus herself afraid of her family getting coronavirus fearful of dying fearful of family members dying increased anxiety and depression started with outbreak of coronavirus in the [place] Endo Denies cold intolerance, Denies excessive sweating, Reports fatigue, Reports flushing, Reports heat intolerance and Reports palpitations Details: Hot flashes and night sweats Ryan/Lymph Reports easy bruising Details: Bruises easily but nothing new Aller/Immun Reports GI upset with certain foods, Reports seasonal rhinorrhea and Reports wheezing Details: Spicy food bothers her, eating too fast bothers her, eating and laying down bothers her sometimes she gets indigestion and is not sure why Exam Const Other: Telephone only visit Quality Reporting Depression/Bipolar (159/160/161/169/177) Total score: 18 Assessment Plan Assessment Plan (1) Anxiety and depression: SNOMED Code(s): 973927142 Category: Medical Plan - Lindsay Chapman DO: Patient has phoned the office and left messages a couple times recently in the past week and has been crying. She last had called both her local tanker truck driver and her infectious disease doctor leaving message for them that she felt she was getting sick. She has chronic MAC and it is felt that is the reason for her previous chronic severe exacerbations of pneumonia and frequent hospitalizations. She also has chronic Enterobacter. I personally spoke to as I was not sure if she needed to be screened for COVID as she did have worsening cough and worsening shortness of breath. Patient was told by her office staff that as soon as she got a chance she would be getting back to the patient. Glenis was so anxious about her symptoms that she called our office several times. Called infectious disease office several times called her local tanker truck driver several times.Hans did return her call did put her on additional antibiotic and prednisone. [place] that if she did get COVID she would rapidly deteriorate and did not feel she needed any screening test. However given the number of tearful phone call she made very obvious her anxiety and depression are out of control. She is on just low-dose Zoloft. She had not been taking any Xanax until recently. She does have myasthenia but it is felt to be under very good control. Given her MAC pneumonia she was switched from CellCept to low-dose methotrexate. Will increase Zoloft to 100 mg. We will give her a new [...] talk to her brother who is a plasma processing technician other than talking to him on the phone she is not interested in doing any formal counseling referral she will increase the Zoloft to 100 will plan on doing a 2 to 4-week follow-up visit to make sure things are improving. (2) Mixed hyperlipidemia: Status: Chronic Code(s): E78.2 - Mixed hyperlipidemia SNOMED Code(s): 711115964 Category: Medical Plan - Lindsay Chapman, DO: She should do diabetic labs lipid labs vitamin D sometime in the next month or 2 and if she does not want to come in at least schedule a follow-up phone visit for diabetes care encouraged her to get checking blood sugars at least morning and night again hopefully she will have energy to do this once the Zoloft kicks in (3) Mixed stress and urge urinary incontinence: Status: Chronic Comment: Wears undergarments Code(s): N39.46 - Mixed incontinence SNOMED Code(s): 616010579 Category: Medical Plan - Lindsay Chapman, DO: I will complete her paperwork as soon as it is forwarded to me she does not care to try medicine she has tried some oxybutynin and Vesicare in the past made her mouth dry made vision blurry and did not really help she prefers to just use the undergarments Orders Follow Up: Hopefully diabetes care [id number] within the next 3 months with lab work 40 minutes 2 to 4 weeks phone visit follow-up anxiety and depression (After) Afternoon phone visit please Electronically Signed By: <Electronically signed by Lindsay Chapman DO> Date/Time Signed: 10/15/19 1321 Name Value Range Interpretation Code Description Data Sarah rce(s) Supporting Document(s) ID Date Data Source [id number] 10/12/2019 01:57:00 PM EDT Patient Name: ISIDRA YANEZ : 1960 Sex: F Pt Unit #: [id number] Location:[facility] Provider: Visit Date/Time: 10/12/19 Primary Insurance: [facility] Secondary Insurance: Self Pay Intake Vital Signs 10/12/19 13:59 Pulse Strength Normal Pulse Source Palpation Temp 97.9 F Temp Source Tympanic Pulse Oximetry (%) 97 Oxygen Delivery Method room air Intake Visit Reasons: Call [facility] Allergies Sulfa (Sulfonamide Antibiotics) Allergy (Intermediate, Verified 03/19/19 14:40) PRURITIS, HIVES fluoxetine [Fluoxetine] Allergy (Unknown, Verified 03/19/19 14:40) Other, not listed metformin Adverse Reaction (Severe, Verified 03/29 14:40) LACTIC ACIDOSIS NSAIDS (Non-Steroidal Anti-Inflamma Adverse Reaction (Severe, Verified 03/19/19 14:40) GI Upset metoclopramide [Metoclopramide] Adverse Reaction (Intermediate, Verified 03/19/19 14:40) Dyskinesia Coronavirus Screening Screening Have you traveled outside of [facility] in the last 14 days.: No Has patient experienced coronavirus symptoms: Yes Coronavirus symptoms experienced: fever (None.) and lower respiratory illness (Productive cough.) ON LICENSE OF [facility] Social History Does the Patient have a Healthcare Proxy: Yes (/sister) Does Patient have a DNR?: No Does Patient have a Living Will?: No Does the Patient have a MOLST?: No Advance Directives on File or in chart?: No household members: spouse housing: house current occupation: disabled pets and animals: Yes Hx Recent Travel (where): No alcohol intake: never HPI Additional HPI HPI Details: Productive cough since yesterday. No better and no worse with time. 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 Her chronic issues are well managed and she is maanging the cough and shortness of rbeath at home. Respiratory Complaints Duration: <1 day Fever: No Exposures: none known Current treatment: antipyretics and OTC cold preparations Exam Const General: cooperative, healthy appearing, comfortable and no acute distress Resp Effort Inspection: normal respiratory effort Auscultation: clear to auscultation bilaterally, no rales, no rhonchi and no wheezes Cardio Rate: regular rate Rhythm: regular rhythm Heart Sounds: S1 normal, S2 normal, no gallops, no murmurs and no rubs Assessment Plan Assessment Plan (1) Respiratory illness with fever: Code(s): J98.9 - Respiratory disorder, unspecified; R50.9 - Fever, unspecified Plan: Concerning for possible COVID19 with cough and shortness of breath. Swab for COVID19 today. Public health out to discuss quarantine. Recheck if increasing shortness of breath, fever, or increasing cough. To ER if symptoms severe. Orders Other Orders: Orders: 2019 Coronavirus, COVID-19 BONNIE Today R05 Electronically Signed By: <Electronically signed by Meng Vasquez MD> Date/Time Signed: 10/12/19 1412 Name Value Range Interpretation Code Description Data Sarah rce(s) Supporting Document(s) ID Date Data Source [id number] 10/15/2019 03:06:00 AM EDT Name Value Range Interpretation Code Description Data Sarah rce(s) Supporting Document(s) COVID-19 BONNIE (SARS-CoV-2) Not Detected Not Detected Testing was performed using the bárbara(R) SARS-CoV-2 test.This test was developed and its performance characteristicsdetermined by [facility]. This test has not beenFDA cleared or [...] the authorization is terminated orrevoked sooner.Performed at: - [facility] [address] [id number] Director: Constanza Saxena MD, Phone: [phone] ID Date Data Source [id number] 10/12/2019 12:50:00 PM EDT [facility] Name Value Range Interpretation Code Description Data Sarah rce(s) Supporting Document(s) SARS CORONAVIRUS 2 RNA [facility] This lab was ordered by [facility] and reported by [facility]. ID Date Data Source [id number] 09/17/2019 09:40:00 AM EDT [facility] ([facility], ) Name Value Range Interpretation Code Description Data Sarah rce(s) Supporting Document(s) Glucose, Fasting 87 mg/dL 70-100 Normal (applies to non-numeric results) [facility] ([facility], ) Blood Urea Nitrogen 13 mg/dL 7-18 Normal (applies to non-nume eleazar results) [facility] ([facility], ) Creatinine For GFR 0.87 mg/dL 0.55-1.30 Normal (applies to non -numeric results) [facility] ([facility], ) Potassium Serum 4.3 meq/L 3.5-5.1 Normal (applies to non-numeric results) [facility] ([facility], ) Sodium Level 141 meq/L 136-145 Normal (applies to non-numeric res ults) [facility] ([facility], ) Glomerular Filtration Rate Laboratory test result Normal (applies to non- numeric results) [facility], ) <content>Units are mL/min/1.73 m2</content>
<content></content>
<content>Chronic Kidney Disease Staging per NKF:</content>
<content></content>
<content>Stage I & II GFR >=60 Normal to Mildly Decreased</content>
<content>Stage III GFR 30- 59 Moderately Decreased</content>
<content>Stage IV GFR 15-29 Severely Decreased</content>
<content>Stage V GFR <15 Very Little GFR Left</content>
<content>ESRD GFR <15 on SOLDER TECHNICIAN</content>
<content></content> Chloride Level 112 meq/L 98-107 Above high normal [facility] ([facility], ) Carbon Dioxide Level 21 meq/L 21-32 Normal (applies to non-num augustine results) [facility] ([facility] [place]) Anion Gap 8 meq/L 8-16 Normal (applies to non-numeric resul ts) [facility] ([facility], ) Calcium Level 9.4 mg/dL 8.8-10.2 Normal (applies to non-numeric re sults) [facility] ([facility], ) Alt/SGPT 19 U/L 12-78 Normal (applies to non-numeric resul ts) [facility] ([facility] [place]) Ast/Sgot 16 U/L 7-37 Normal (applies to non-numeric resul ts) [facility] ([facility], ) Total Protein 7.2 GM/DL 6.4-8.2 Normal (applies to non-numeric re sults) [facility], ) Bilirubin,Total 0.3 mg/dL 0.2-1.0 Normal (applies to non-numeric results) [facility], ) Albumin 3.7 GM/DL 3.2-5.2 Normal (applies to non-numeric resul ts) [facility]) Alkaline Phosphatase 96 U/L 45-117 Normal (applies to non-num augustine results) [facility]) Albumin/Globulin Ratio 1.06 1.00-1.93 Normal (applies to non-numeric results) [facility]) ID Date Data Source [id number] 09/17/2019 09:40:00 AM EDT [facility]) Name Value Range Interpretation Code Description Data Sarah rce(s) Supporting Document(s) White Blood Count 6.6 10 4.0-10.0 Normal (applies to non-numeri c results) [facility]) Hemoglobin 12.6 g/dL 12.0-15.5 Normal (applies to non-numeric resul ts) [facility]) Red Blood Count 4.05 10 4.00-5.40 Normal (applies to non-numeric results) [facility]) Hematocrit 39.4 % 36.0-47.0 Normal (applies to non-numeric resul ts) [facility]) Mean Corpuscular HGB Conc 32.0 g/dL 32.0-36.5 Normal (applies to non-numeric results) [facility]) Mean Corpuscular Hemoglobin 31.1 pg 27.0-33.0 Norm al (applies to non-numeric results) [facility]) Mean Corpuscular Volume 97.3 fl 80.0-96.[address] [facility]) Platelet Count, Automated 325 10 150-450 Normal (applies to non-numeric results) [facility]) Neutrophils % 53.6 % 36.0-66.0 Normal (applies to non-numeric re sults) [facility]) Lymph % 33.7 % 24.0-44.0 Normal (applies to non-numeric resul ts) [facility]) Red Cell Distribution Width 13.2 % 11.5-14.5 Norm al (applies to non-numeric results) [facility] ([facility], ) Eos % 3.5 % 0.0-3.0 Above high normal [facility] ([facility]) [place] % 8.0 % 0.0-5.0 Above high normal [facility] ([facility] [place]) Baso % 0.9 % 0.0-1.0 Normal (applies to non-numeric resul ts) [facility] ([facility] [place]) Immature Granulocyte % 0.3 % 0-3.0 Normal (applies to non-n umeric results) [facility] ([facility] [place]) Nucleated Red Blood Cell % 0.0 % 0-0 Normal (applies to n on-numeric results) [facility] ([facility] [place]) Neutrophils # 3.5 10 1.5-8.5 Normal (applies to non-numeric re sults) [facility] ([facility] [place]) Lymph # 2.2 10 1.5-5.0 Normal (applies to non-numeric resul ts) [facility] ([facility] [place]) [place] # 0.5 10 0.0-0.8 Normal (applies to non-numeric resul ts) [facility] ([facility] [place]) Eos # 0.2 10 0.0-0.5 Normal (applies to non-numeric resul ts) [facility] ([facility] [place]) Baso # 0.1 10 0.0-0.2 Normal (applies to non-numeric resul ts) [facility] ([facility] [place]) ID Date Data Source Comprehensive Metabolic Profile (CMP) 09/17/2019 12:00:00 AM EDT [facility] ([facility]) Name Value Range Interpretation Code Description Data Sarah rce(s) Supporting Document(s) 87 70-100 GLUCOSE, FASTING eCW1 ([facility]) 13 7-18 BLOOD UREA NITROGEN eCW1 ([facility]) > 60.0 >45 GLOMERULAR FILTRATION RATE eCW 1 ([facility]) 0.87 0.55-1.30 CREATININE FOR GFR eCW1 ([facility]) 141 136-145 SODIUM LEVEL eCW1 ([facility]) 4.3 3.5-5.1 POTASSIUM SERUM eCW1 ([facility]) 9.4 8.8-10.2 CALCIUM LEVEL eCW1 ([facility]) 112 98-107 CHLORIDE LEVEL eCW1 ([facility]) 16 7-37 AST/SGOT eCW1 ([facility]) 21 21-32 CARBON DIOXIDE LEVEL eCW1 ([facility]) 0.3 0.2-1.0 BILIRUBIN,TOTAL eCW1 ([facility]) 19 12-78 ALT/SGPT eCW1 ([facility]) 7.2 6.4-8.2 TOTAL PROTEIN eCW1 ([facility]) 96 45-117 ALKALINE PHOSPHATASE eCW1 ([facility]) 1.06 1.00-1.93 ALBUMIN/GLOBULIN RATIO eCW1 ([facility]) 3.7 3.2-5.2 ALBUMIN eCW1 ([facility]) ID Date Data Source CBC with Differential 09/17/2019 12:00:00 AM EDT [facility]1 ([facility]) Name Value Range Interpretation Code Description Data Sarah rce(s) Supporting Document(s) 6.6 4.0-10.0 WHITE BLOOD COUNT eCW1 ([facility]) 4.05 4.00-5.40 RED BLOOD COUNT eCW1 ([facility]) 39.4 36.0-47.0 HEMATOCRIT eCW1 ([facility]) 12.6 12.0-15.5 HEMOGLOBIN eCW1 ([facility]) 32.0 32.0-36.5 MEAN CORPUSCULAR HGB CONC eCW1 ([facility]) 97.3 80.0-96.0 MEAN CORPUSCULAR VOLUME e CW1 ([facility]) 13.2 11.5-14.5 RED CELL DISTRIBUTION WID TH eCW1 ([facility]) 31.1 27.0-33.0 MEAN CORPUSCULAR HEMOGLOB IN eCW1 ([facility]) 53.6 36.0-66.0 NEUTROPHILS % eCW1 ([facility]) 33.7 24.0-44.0 LYMPH % eCW1 ([facility]) 325 150-450 PLATELET COUNT, AUTOMATED eCW1 ([facility]) 0.9 0.0-1.0 BASO % eCW1 ([facility]) 8.0 0.0-5.0 MONO % eCW1 ([facility]) 3.5 0.0-3.0 EOS % eCW1 ([facility]) 3.5 1.5-8.5 NEUTROPHILS # eCW1 ([facility]) 2.2 1.5-5.0 LYMPH # eCW1 ([facility]) 0.1 0.0-0.2 BASO # eCW1 ([facility]) 0.2 0.0-0.5 EOS # eCW1 ([facility]) 0.5 0.0-0.8 MONO # eCW1 ([facility]) ID Date Data Source [id number] 06/30/2019 08:07:00 AM [facility] Name Value Range Interpretation Code Description Data Sarah rce(s) Supporting Document(s) IgG [Mass/volume] in Serum or Plasma 1045 mg/dL 700-1600 Performed at: RN - [facility] [address] [id number] Director: Constanza Saxena MD, Phone: [phone] ID Date Data Source [id number] 06/29/2019 03:09:00 PM [facility] Name Value Range Interpretation Code Description Data Sarah rce(s) Supporting Document(s) Leukocytes [#/volume] in Blood by Automated count 8.1 10*3/uL 4.45-10 .71 [facility] Erythrocytes [#/volume] in Blood by Automated count 3.92 10*6/uL 4.20-5.40 Below low normal Hemoglobin [Moles/volume] in Blood 12.2 g/dL 10.7-15.4 N Hematocrit [Volume Fraction] of Blood by Automated count 37.6 % 3 7-47 N Erythrocyte mean corpuscular volume [Ent itic volume] in Cord blood by Automated count 95.9 fL 80-96 N [facility] ital Erythrocyte mean corpuscular hemoglobin [Entitic mass] by Automated count 31.1 pg 27-31 Above high normal [facility] spital Erythrocyte mean corpuscular hemoglobin concentration [Mass/volume] in Cord blood 32.4 g/dL 33-37 Below low normal [facility] Erythrocyte distribution width [Entitic volume] by Automated count 14 % 11-15 N Platelets [#/volume] in Blood by Automated count 313 10*3/uL 130-472 N Platelet mean volume [Entitic volume] in Blood 9.2 fL 9.1-13.1 N Neutrophils/100 leukocytes in Blood by Automated count 58.0 % 41- 77 N Neutrophils [#/volume] in Blood by Automated count 4.7 U 1.7-7.6 N Lymphocytes/100 leukocytes in Blood by Automated count 30.5 % 14- 46 N Lymphocytes [#/volume] in Blood by Automated count 2.5 U 0.6-4.6 N Monocytes/100 leukocytes in Blood by Automated count 8.4 % 4-12 N Monocytes [#/volume] in Blood by Automated count 0.7 U 0.2-1.2 N Eosinophils/100 leukocytes in Blood by Automated count 2.2 % 0-7 N Eosinophils [#/volume] in Blood by Automated count 0.2 U 0.0-0.5 N Basophils/100 leukocytes in Blood by Automated count 0.5 % 0.4-1 .3 N Basophils [#/volume] in Blood by Automated count 0.0 U 0.0-0.2 N NUCLEATED RED BLOOD CELL 0 % NUCLEATED RED BLOOD CELL# 0 U [facility] Immature granulocytes [Presence] in Blood by Automated count 0-2 N Immature granulocytes [#/volume] in Blood by Automated count 0.0 U 0-0.1 N Manual Differential panel - Blood NO ID Date Data Source [id number] 06/29/2019 02:55:00 PM EST [facility] ([facility]) Name Value Range Interpretation Code Description Data Sarah rce(s) Supporting Document(s) Erythrocytes [#/volume] in Blood by Automated count 3.92 10*6/uL 4.20-5.40 Below low normal [facility] ([facility] ) Leukocytes [#/volume] in Blood by Automated count 8.1 10*3/uL 4.45-10.71 Normal (applies to non-numeric results) [facility] ([facility]) Erythrocyte mean corpuscular volume [Ent itic volume] in Cord blood by Automated count 95.9 fL 80-96 Normal (applies to non-numeric results) [facility] ([facility]) Hematocrit [Volume Fraction] of Blood by Automated count 37.6 % 37-47 Normal (applies to non-numeric results) [facility] ([facility]) Hemoglobin [Moles/volume] in Blood 12.2 g/dL 10.7-15.4 Normal (applies to non- numeric results) [facility] ([facility] ) Erythrocyte distribution width [Entitic volume] by Automated cou nt 14 % 11-15 Normal (applies to non-numeric results) [facility] ([facility] Erythrocyte mean corpuscular hemoglobin [Entitic mass] by Automated count 31.1 pg 27-31 Above high normal [facility] ([facility]) Erythrocyte mean corpuscular hemoglobin concentration [Mass/volume] in Cord blood 32.4 g/dL 33-37 Below low normal [facility] ([facility]) Platelet mean volume [Entitic volume] in Blood 9.2 fL 9 .1-13.1 Normal (applies to non-numeric results) [facility] ([facility]) Platelets [#/volume] in Blood by Automated count 313 10*3/uL 130-472 Normal (applies to non-numeric results) [facility] ([facility]) Neutrophils/100 leukocytes in Blood by Automated count 58.0 % 41-77 Normal (applies to non-numeric results) [facility] ([facility]) Neutrophils [#/volume] in Blood by Automated count 4.7 U 1.7-7.6 Normal (applies to non-numeric results) [facility] ([facility]) Lymphocytes [#/volume] in Blood by Automated count 2.5 U 0.6-4.6 Normal (applies to non-numeric results) [facility] Lymphocytes/100 leukocytes in Blood by Automated count 30.5 % 14-46 Normal (applies to non-numeric results) [facility] ([facility]) Eosinophils/100 leukocytes in Blood by Automated count 2.2 % 0-7 Normal (applies to non-numeric results) [facility] Monocytes [#/volume] in Blood by Automated count 0.7 U 0.2-1.2 Normal (applies to non-numeric results) [facility] ([facility]) Monocytes/100 leukocytes in Blood by Automated count 8.4 % 4-12 Normal (applies to non-numeric results) [facility] ([facility]) Eosinophils [#/volume] in Blood by Automated count 0.2 U 0.0-0.5 Normal (applies to non-numeric results) [facility] Basophils [#/volume] in Blood by Automated count 0.0 U 0.0-0.2 Normal (applies to non-numeric results) [facility] ([facility]) Basophils/100 leukocytes in Blood by Automated count 0.5 % 0.4-1.3 Normal (applies to non-numeric results) [facility] ([facility]) Immature granulocytes [Presence] in Blood by Automated count 0.4 0-2 Normal (applies to non-numeric results) [facility] ([facility]) Laboratory test finding (navigational concept) 0 U [facility] ([facility]) Laboratory test finding (navigational concept) 0 % [facility] ([facility]) Manual Differential panel - Blood NO [facility] ([facility]) Immature granulocytes [#/volume] in Blood by Automated count 0.0 U 0-0.1 Normal (applies to non-numeric results) [facility] ([facility]) ID Date Data Source [id number] 06/29/2019 02:55:00 PM EST [facility] ([facility]) Name Value Range Interpretation Code Description Data Sarah rce(s) Supporting Document(s) IgG [Mass/volume] in Serum or Plasma 1045 mg/dL 700-1600 [facility] ([facility]) D83.9 ID Date Data Source [id number] 06/28/2019 01:14:00 PM [facility] [address] [place] [id number] [phone] NAME SEX PT STATUS ACCOUNT NUMBER ISIDRA YANEZ REG REF [id number] ORDERING PHYSICIAN LOCATION MEDICAL RECORD NO. Lesli RPA-C [facility] [id number] ATTENDING PHYSICIAN DATE OF DATE OF EXAM/TIME Lindsay Chapman DO 1960 06/28/19 / 1243 TYPE / EXAM Xray Lumbar spine complete [...] thoracic spine in the mid and lower lumbarspine is secondary to degenerative disc disease.. Impression: : Findings at the L4-5 and L5-S1 facet joints consistent with degen erative disease resulting in minimal anterolisthesis of L4 Multilevel degenerative disc disease Reported By Ez Lynne MD on 06/28/19 1314 Signed By Ez Lynne MD on 06/28/19 1320 Date Time CC: Ez Lynne MD; Lindsay Chapman DO Techn: CARRC Trans Dt/Tm: Trans by: DT Prt Dt/Tm: [id number]: Total DLP = 0.00 mGy-cm Fluoroscopy Time (in secs): Name Value Range Interpretation Code Description Data Sarah rce(s) Supporting Document(s) ID Date Data Source [id number] 06/28/2019 01:12:00 PM [facility] [address] [place] [id number] [phone] NAME SEX PT STATUS ACCOUNT NUMBER ISIDRA YANEZ REG REF [id number] ORDERING PHYSICIAN LOCATION MEDICAL RECORD NO. Lesli [facility] [id number] ATTENDING PHYSICIAN DATE OF DATE OF EXAM/TIME [...] 06/28/191311 Signed By Ez Lynne MD on 06/28/191312 Date Time CC: Ez Lynne MD; Lindsay Chapman DO Techn: CARRC Trans Dt/Tm: Trans by: DT Prt Dt/Tm: [id number]: Total DLP = 0.00 mGy-cm Fluoroscopy Time (in secs): Name Value Range Interpretation Code Description Data Sarah rce(s) Supporting Document(s) ID Date Data Source [id number] 06/26/2019 04:03:00 PM [facility] Patient Name: ISIDRA YANEZ : 1960 Sex: F Pt Unit #: [id number] Location:[facility] Provider: Visit Date/Time: 06/26/19 Primary Insurance: [facility] Secondary Insurance: Self Pay Intake Vital Signs 06/26/19 16:05 Current Height 5 ft 3 in Current Weight 256 lb BMI 45.3 BP 128/74 Blood Pressure Location Lt brachial Position Sitting Respiration 18 Pulse 102 H Pulse Strength Normal Pulse Source Palpation Temp 98.4 F Temp Source Oral Pulse Oximetry (%) 99 Oxygen Delivery Method room air Intake Visit Reasons: Asthma follow-up, Cold symptoms (adult), Diabetes follow- up Nurse Note: Patient presents for recheck. She says that Dr Benites told her to d/c her supplemental oxygen. Her oxygen even after walking down the [place] was still 97-99% on RA when being weighed. She says she is feeling better overall but thinks she is coming down with a cold. Started a probiotic from Dr Benites, no other changes. She has an area of concern under right side of pannus, has gotten bigger in size she says. She has back and hip pain chronically and usually does not take any Tylenol, no known injury or trauma but admits she didn't get around much while she was sick. Says worse at night or when she doesn't change positions. Received request for orders for a scooter. Patient isn't even sure she needs it anymore since she isfeeling so much better. 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 Associate Required: No Accompanied by: Self / Same as Patient Is patient in pain?: No Allergies Sulfa (Sulfonamide Antibiotics) Allergy (Intermediate, Verified 03/19/19 14:40) PRURITIS, HIVES fluoxetine [Fluoxetine] Allergy (Unknown, Verified 03/19/19 14:40) Other, not listed metformin Adverse Reaction (Severe, Verified 03/19/19 14:40) LACTIC ACIDOSIS NSAIDS (Non- Steroidal Anti-Inflamma Adverse Reaction (Severe, Verified 03/19/19 14:40) GI Upset metoclopramide [Metoclopramide] Adverse Reaction (Intermediate, Verified 03/19/19 14:40) Dyskinesia Medications acetaminophen (Tylenol Extra Strength) 1,000 mg PO Q6HRS PRN albuterol sulfate 90 mcg/actuation (Ventolin HFA) 2 puffs INH Q4HPRN PRN MDD 6 x albuterol sulfate 2.5 mg NEB Q4HPRN MDD 6 alprazolam (Xanax) 0.25 mg PO TIDPRN MDD 3 aspirin PO atorvastatin 40 mg PO DAILY blood sugar diagnostic ([employer]) Use strips to test sugar before meals and at bedtime budesonide inhalation cyanocobalamin (vitamin B-12) (Vitamin B-12) 500 mcg PO DAILY enalapril maleate 2.5 mg PO DAILY epinephrine (EpiPen) 0.3 mg IM 1T ergocalciferol (vitamin D2) (Vitamin D2) 50,000 units PO 1XW MDD 1 esomeprazole magnesium (Nexium) 40 mg PO BID MDD 2 ethambutol 1,600 mg PO QDAY ferrous sulfate ER (iron ER) 325 mg PO BID fluticasone furoate-vilanterol 200- 25 mcg/dose (Breo Ellipta) 1 ea inhalation DAILY folic acid PO gabapentin 300 mg PO TID immun glob G(IgG)-pro-IgA 0-50 (Hizentra) 20 grams subcut QWEEK insulin glargine (Basaglar KwikPen U-100 Insulin) 60 units subcut HS insulin lispro (Humalog KwikPen (U-100) Insulin) 1 unit (0.01 mL) subcut QACHS ipratropium-albuterol 0.5 mg-3 mg(2.5 mg base)/3 mL 3 mL inhalation QID MDD 4 Lactobacillus acidophilus PO lancets (Zafgen DelConnected Data Lancets) to be used AC and HS loratadine 10 mg PO DAILY methotrexate sodium PO montelukast 10 mg PO HS multivitamin (Daily Multi-Vitamin) 1 tab PO DAILY pen needle,diabetic dual safty (BD AutoShield Duo Pen Needle) MDD 5 pyridostigmine bromide (Mestinon) 60 mg PO QID MDD 4 ranitidine HCl 300 mg (2 x 150 mg) PO HS MDD 2 rifampin 300 mg PO QDAY ropinirole 1 mg PO BID MDD 2.5 sertraline 50 mg PO QDAY topiramate (Topamax) 100 mg PO BID umeclidinium 62.5 mcg/actuation (Incruse Ellipta) 1 inh inhalation QDAY Is last menstrual period known: No Post menopausal: Yes Patient : No Followed by:: Sergio-allergy,Renetta-DMITRI/asthma,Hans-ID,Mandie-Neurology, Dr. Collado in [place] Dr. Anderson gastroenterology Fall Risk History of falls: Yes (None last since last visit but she has had falls in the past) Ambulatory Aid:: None Gait/Transferring:: Normal Medications:: Psychotropics Fall Risk education: Patient has a cane and a walker at home currently is not using either has recently been able to taper off her oxygen with sats staying in the 90s she is only been off her oxygen little over a week but strength has been better the past week or 2 and she has been using wheelchair or walker or cane she does have all 3 at home to use if she gets sick again PHQ-2/9 Over the last 2 weeks, how often have you been bothered by any of the following problems? 1. Little interest or pleasure in doing things: several days 2. Feeling down, depressed, or hopeless: more than half the days Total score: 3 3. Trouble falling or staying asleep, or sleeping too much: nearly every day 4. Feeling tired or having little energy: several days (Miguelina adjusted some of her meds Topamax HS only) 5. Poor appetite or overeating: not at all 6. Feeling bad about yourself - or that you are a failure or have let yourself and your family down: not at all 7. Trouble concentrating on things, such as reading the newspaper or watching television: not at all 8. Moving or speaking so slowly that other people could have noticed? - Or the opposite - being so fidgety or restless that you have been moving around a lot more than usual: not at all 9. Thoughts that you would be better off or of hurting yourself in some way: not at all Total score: 7 If you checked off any problems, how difficult have these problems made it for you to do your work, take care of things at home, or get along with other people?: somewhat difficult Source: Developed by Drs. Hernando Givens, Radha Cantu, Salvatore Chakraborty and colleagues, with an educational andrew from [employer]. HIV Testing Offer - ages 13-64 HIV testing Offer: No Requirement for HIV testing offer been met?: Not in age range Hep C Testing Offered: No Hep C Requirement met: Patient reports past refusal SBIRT Annual Questionnaire Are you currently in recovery for alcohol or substance use?: No How many times in the past year have you had 4 or more drinks in a day?: None How many times in the past year have you used a recreational drug or used a prescription medication for nonmedical reasons?: None Do you need a note to return Do you need a note to return to daycare/school/sports/work: No PFSH Social History Does the Patient have a Healthcare Proxy: Yes (/sister) Does Patient have a DNR?: No Does Patient have a Living Will?: No Does the Patient have a MOLST?: No Advance Directives on File or in chart?: No household members: spouse housing: house current occupation: disabled pets and animals: Yes Hx Recent Travel (where): No alcohol intake: never HPI Additional HPI HPI Details: Patient is here for chronic medical follow-up she has been back to several of her specialist. Her infectious disease specialist saw her on the and felt she had improved enough after prolonged course of Zithromax for MAC that she could try weaning her oxygen she has over the past week been able to wean off her supplemental oxygen. She has been back to the neurologist and Dr. Helms feels some of her daytime fatigue is not sleep apnea but is this medicine side effect so he is in the process of getting her long-acting Requip for her restless leg syndrome. He also moved her Topamax to all bedtime dose and she thinks that is helped some. Her depression is manageable current depression screen is 7 she has had much higher screens it is not gone but it is manageable. She brought in paperwork or else it was faxed for electric power mobility device. She is not sure she needs it now since she is getting around better today she is here without cane or walker. Previously she had been in with a wheelchair that her was pushing but since being diagnosed and treated for MAC she is doing considerably better she brings her blood sugars in and past week she is 87-1 28 fasting week previous she was about the same fasting this morning she was 106 she is now off prednisone which always makes her blood sugars high. Lunch readings have been 10 2-1 41 supper 10 8-1 58 bedtime 1 20-1 80 previous week 1 10-1 78 for bedtime 10 2-1 58 4 supper and 1 13-1 53 for lunch so readings are looking pretty good I will defer any insulin adjustment since at this time her readings really are looking good it is mainly when she ends up on high doses of prednisone that her blood sugars become uncontrolled. She is still on her multidrug regimen including rifampin and Zithromax and third drug and she takes them 7 days a week and plan is for her to be on this several months to complete ly eradicate the MAC probiotic was added last visit nausea has subsided since adding probiotic last week at her infectious disease follow-up appointment she was having a lot of nausea but that is gotten better on the probiotic she denies any vomiting or diarrhea she has started with some cold symptoms she is wearing her CPAP every night.she is having hip and back pain but gradually getting worse.she wonders if it is because she was so sedentary for so long and now trying to move more Asthma - Chronic Management History of Present Illness Cough, wheeze, SOB, chest tightness: daily How are your symptoms today: good Night awakenings: none Activity limitation: minor Acute treatment: Reports rest, GREG, oral steroids, increased inhaled steroid dose, antibiotics (MAC tx as in HPI) and LABA GREG usage: >2x per week (Had weaned off her nebulizer but since cold symptoms has started back on it) Exacerbations requiring oral steroids in past year: >=2 per year Asthma severity: severe, persistent Age at onset of symptoms: >10 years Progression of symptoms since diagnosis or previous visit: improved Intensive care: Yes Intubation: No Symptoms exacerbated by: Reports allergens, cold air, warm air, humidity and URI Symp toms improved by: Reports rest, beta agonist, steroid use and antibiotics Compliance with residential control therapy: miss a couple of doses per week History of immunotherapy: never Associated symptoms: Reports rhinorrhea and reflux; Denies chest pain, chest tightness, dyspnea, rash or heartburn Pertinent past medical history: Reports allergic rhinitis, recurrent pneumonia and GERD; Denies eczema and food allergy Seasonal pattern: none Smoke exposure: Yes () Home environment: Reports linen regimen and pets; Denies wood burning in home URI History of Present Illness Current symptoms : Reports cough, rhinorrhea and sinus pain; Denies fever(s), sore throat, productive cough or congestion Onset: [id number] Duration: constant Home treatments: rest Exacerbating factors: Reports none Able to tolerate fluids by mouth: Yes Context: sick contacts Associated symptoms: Reports headache(s); Denies chills, change in voice, myalgias, diaphoresis, neck stiffness, chest pain, abdominal pain, nausea, vomiting, diarrhea, dysuria, rash, ear or mastoid pain or epistaxis Adult Diabetic Blood sugars generally running 80-150 most of the time 100-1 40 since getting off prednisone May 23 hemoglobin A1c was 8.4 at that point she was still on prednisone Type: type 2 and insulin- requiring Glucose control symptoms: Reports nocturia; Denies polydipsia, polyuria, daytime hypoglycemia, nocturnal hypoglycemia, confusion at night or recent nightmares Weight and fatigue symptoms: Reports weight loss, not sleeping well, wakes up feeling tired, tired all the time and daytime sleepiness (Neurologist feels some of it is medication side effect) Cardiopulmonary symptoms: Reports dyspnea on exertion; Denies chest pain with activity, chest pain at rest, dyspnea, dyspnea at rest, claudication, myalgias or lightheadedness GI symptoms: Reports nausea/dyspepsia (Better since infectious disease doctor started her on probiotic about a week ago); Denies vomiting, diarrhea or constipation Skin and extremity symptoms: Reports tingling/numbness/burning (Numbness and tingling in her feet) and recurrent infections (On regimen of triple antibiotic this is about month 2 for MAC infection following closely with pulmonary and infectious disease); Denies foot ulcers, poorly healing wound or claudication Other symptoms: Reports recurrent infections (On regimen of triple antibiotic this is about month 2 for MAC infection following closely with pulmonary and infectious disease) and depression; Denies blurry vision or change in vision (Just had eye exam) Pertinent visit history: Reports recent hospital admission (Has not been rehospitalized since April); Denies recent visit to ER Percentage of fasting blood glucose within goal: most of the time Dietary compliance: Diabetes: other (Fair) Type(s) of exercise: walking (Walking short distances of about 5 minutes several times a day oxygen staying up above 90) Date of last renal evaluation: 05/25/19 Date of last serum creatinine: 05/25/19 Serum creatinine result: 0.9 Nephropathy details: Reports on NATALYA-I/ARB; Denies on dialysis History of retinopathy: No Retinopathy details: Reports followed by painter spray (Recent eye exam in [place] partly due to starting methotrexate) History of neuropathy: Yes Neuropathy details: Reports on medications for pain, loss of protective sensation (Just saw her neurologist) and gastroparesis; Denies history of foot ulcers and history of amputations Diabetic goal #1: Try to keep A1c under 8 I suspect next 1 will be unless she ends up back on prednisone monitor blood sugars before meals and at bedtime ad just insulin as needed Diabetic goal #2: Keep blood pressure under 130/80 currently is with enalapril Diabetic goal #3: Keep LDL 70 currently is on atorvastatin Review of Systems Const All systems reviewed are unremarkable except as noted in HPI and below Denies chills, Reports daytime sleepiness (Neurologist feels some of it is medication side effect), Reports fatigue, Denies fever(s), Reports headache(s) and Reports weight loss Eyes Denies blurry vision, Denies change in vision (Just had eye exam) and Denies loss of vision ENT Denies change in voice, Denies vertigo, Reports headache( s), Denies epistaxis, Denies neck pain, Reports sinus pain and Denies sore throat Card Denies chest pain, Denies chest pain at rest, Denies chest pain with activity, Denies diaphoresis, Denies claudication, Denies lightheadedness, Denies palpitations, Denies dyspnea and Reports dyspnea on exertion Resp Reports cough, Denies dyspnea, Reports dyspnea on exertion and Reports wheezing (Not in the past week or so) GI Reports as per HPI, Denies abdominal pain, Denies constipation, Denies heartburn, Denies diarrhea, Denies nausea and Denies vomiting Reports as per HPI, Denies abnormal vaginal bleeding, Denies hematuria, Denies urinary frequency, Denies difficulty voiding, Reports nocturia, Denies hot flashes, Denies dysuria, Denies flank pain, Denies urinary incontinence, Denies urinary hesitancy and Denies vaginal pruritus Musc Reports back pain, Denies myalgias, Reports arthralgias, Denies limited range of motion, Denies muscle cramps, Denies muscle weakness, Denies neck pain, Reports numbness, Denies radiating pain into limb, Reports stiffness and Reports tingling Skin/Breast Reports as per HPI, Reports changing lesions, Reports dry skin and Denies rash Details: See HPI Neuro Reports as per HPI, Denies abnormal movements, Denies abnormal speech, Reports burning sensations, Denies vertigo, Reports headache(s), Denies loss of vision, Reports numbness, Denies radicular pain, Reports restless legs, Denies convulsions, Denies seizure-like activity, Reports tingling, Reports paresthesias and Denies tremor(s) Psych Reports abnormal sleep pattern, Reports anxiety, Denies change in appetite, Reports depression, Denies difficulty concentrating, Denies irritability, Reports anhedonia, Denies mood swings, Denies panic attacks, Denies homicidal ideation and Denies suicidal ideation Details: Depression screening of 7 she feels like things are fairly stable Endo Reports as per HPI, Denies cold intolerance, Reports fatigue, Reports heat intolerance, Denies polyphagia, Denies polydipsia, Denies polyuria and Denies palpitations Ryan/Lymph Reports easy bruising Aller/Immun Reports GI upset with certain foods, Reports seasonal rhinorrhea and Reports wheezing (Not in the past week or so) Exam Const General: cooperative, comfortable and well groomed Nutritional Appearance: obese Orientation: alert, awake and oriented x3 Other: Chronically ill but looks the best I have seen her in quite some time she is comfortable she has no cough her lungs are completely clear well-aerated no rales rhonchi or wheezing no tactile fremitus she is comfortable room air sat is above 90 witho ut oxygen HENMT Head: normocephalic and atraumatic Ears: TM's normal bilaterally and EAC's normal General nose exam: nasal discharge clear Face and sinus: sinuses nontender, face symmetric and no sinus tenderness Mouth: oral mucosae normal Teeth and gingiva: edentulous Throat: postnasal drainage Neck Neck: supple and nontender Neck mass: No Thyroid: thyroid normal Carotids: normal carotid upstroke and no bruits Lymphatic: no lymphadenopathy noted Resp Effort Inspection: normal respiratory effort, no cough, no grunting, not labored, no pursed lip breathing, no respiratory distress, no use of accessory muscles and prolonged expiratory phase Auscultation: clear to auscultation bilaterally, no bronchial breath sounds, no crackles, no rales, no rhonchi, no wheezes and no rubs Tactile Fremitus: tactile fremitus absent Cardio Rate: regular rate Rhythm: regular rhythm Heart Sounds: S1 normal, S2 normal and murmur (Soft 1/6 murmur at the apex) Bruits: no carotid bruits Pulses: p osterior tibial pulses present GI Palpation: soft, no hernias, no masses and tender in the epigastrum Auscultation: normal bowel sounds Other: Generalized epigastric tenderness no rebound no guarding positive bowel sounds Musc Cervical Spine: cervical ROM normal, no cervical muscular tenderness, no cervical spasm and no cervical spinal tenderness Thoracic/Lumbar Spine: straight leg raise negative bilaterally, pain with thoraco-lumbar ROM, paraspinal muscle tenderness, thoraco-lumbar spasm and lumbar spinal tenderness Pelvis: no sciatic notch tenderness Skin Rashes: no rashes Other: 2 adjacent inflamed seborrheic keratoses in the right groin each is about 8 mm Neuro General: alert, awake, oriented x3, tone normal, moves all extremities, no focal motor deficits and deep tendon reflexes not 2+ bilaterally (Patellar reflexes +1 bilaterally) Cranial Nerves: PERRL, no nystagmus, facial strength normal, tongue midline, able to rotate head bilaterally and able to elevate shoulders bilaterally Cognition: normal cognition Speech: speech normal Motor: muscle tone normal throughout, strength 5/5 throughout, no pronator drift, no fasciculations, no tremors and normal tone Sensory Exam: other (Decreased light touch below the knees consistent with her diabetic neuropathy) Extrem General: no clubbing, cyanosis or edema and no calf tenderness Other: She has no tremor and no cogwheeling and no shuffling gait she has no stigmata of Parkinson's disease whatsoever Psych Appearance: well kempt Speech and Movement: speech clear and slowed movement Mood: congruent mood Affect: normal affect Attitude: cooperative Thought Content: normal Insight: insight good Judgment: judgment good Quality Reporting Depression/Bipolar (159/160/161/169/177) Total score: 7 Assessment Plan Assessment Plan (1) Severe persistent asthma dependent on systemic steroids with acute exacerbation: Status: Chronic Comment: Patient changed back to pulmonary group and [place]-Dr. Ambriz and his nurse practitioner-PFTs do not show obstruction-she does not have COPD-she has severe persistent asthma Code(s): J45.51 - Severe persistent asthma with (acute) exacerbation; Z79.52 - penitentiary (current) use of systemic steroids SNOMED Code(s): 669585050 Category: Medical Plan - Lindsay HoustonMaria Guadalupe, DO: I am again in review of her home health diagnoses and there are again numerous incorrect diagnoses from her specialist and these probably generate the incorrect diagnoses from home health. Currently her primary diagnosis is Mycobacterium avium [...] same the code is J 45.51 I have corrected the diagnosis of Parkinson's from home [...] has myasthenia gravis without exacerbation. Neurologist has recently taken her off CellCept as they feel the CellCept has contributed to recurrent pneumonia and her sheryl the mycoplasma avium bacteria which has led to her persistent exacerbation of asthma. She has type 2 diabetes but she has gastroparesis hyper and hypoglycemia and neuropathy so the correct code is E 11.8 as she has numerous complications her most recent hemoglobin A1c was in the 8 range she has obstructive sleep apnea it is not unspecified it is obstructive and it is managed by Dr. Wilkinson and Dr. Helms- she [...] bedtime she has mixed anxiety and depression with F 41.8 code depression screen is 7 which for her is quite good she feels she is stable on her current medicines and medically is improving does not feel as depressed as she sometimes has in the past. We switched her from Lexapro to Zoloft a couple months ago because of drug interactions with some of her antibiotics principally Zithromax she feels the Zoloft is working just as well. Hypertension I 10 is correct and is currently well controlled with medication. She is on long-term inhaled steroids. She is on long-term insulin therapy. She is not on supplemental oxygen anymore that diagnosis can be removed from the problem list she does have gastroesophageal reflux currently controlled with medication that diagnosis K 21.9 is correct she does have restless leg syndrome vitamin D E 55.9 is correct. Obesity E 66.9 is correct she does not have chronic atrial fibrillation. In the setting of sepsis due to pneumonia she on one occasion had rapid ventricular A. fib it was isolated to one occasion. She is never had it again. Therefore she has not been anticoagulated. It was felt due to her sepsis it has never recurred so chronic A. fib is incorrect. Other pertinent diagnoses that could be listed although jolynn nuñez has numerous would be mixed hyperlipidemia allergic rhinitis common variable immunodeficiency for which she takes weekly hirenzta injection to boost her immune system B12 deficiency anemia she is on B12 at thousand micrograms daily prednisone is still listed on her medication list and she is no longer on it Topamax she is on 200 but it is being dosed all at night I will send a copy of this progress note to home health so that they can make these addendum's to her diagnosis list and these addendum's to her medication list. Patient also has reflux and gastroparesis so far her symptoms have been stable her Zantac 300 was recalled but she is still been able to get 150 and take 2 at bedtime and stomach since starting probiotic has been much better no indigestion or heartburn nausea has resolved even with the triple antibiotic regimen continue twice daily Nexium. Hypertension is stable on enalapril 2.5. Check microalbumin annually renal function was stable last month I reviewed her blood sugar log for the past 3 weeks and blood sugars really are running pretty steady since getting off prednisone lipids are stable on atorvastatin 40 she does take a baby aspirin 81 she has Xanax 0.25 3 times daily but is rarely taking it she was using nebulizer every 4 hours on a pretty routine basis but past couple weeks she had not been using it I told her to go ahead and restart it if she feels she is wheezing but currently lungs are completely clear the other acute issue [...] up and moving more because she is feeling better otherwise. She is probably using muscles she has not used in a while now that she is walking and moving around more she has had no recent fall. Straight leg is -+1 patellar re flexes bilaterally strength in the lower extremities is preserved but I would feel better if she gets pelvis and lumbosacral x-rays because of her steroid dependence she has had no recent fall but she has had distant falls and she agrees to get some x-rays she does not really want to do therapy she is already on gabapentin and Topamax if not improving I can discuss with Dr. Wilkinson and he certainly would order an MRI but she does not really describe it is radicular it is more mechanical she can try some heat she can try Tylenol he is very hesitant to take any Tylenol but I would take at thousand 3 times daily as needed. and see if that does not help. fflick is malfunctioning so unfortunately I was not able to dictate as many individual problems as I wanted to because of the computer dysfunction (2) Common cold: Code(s): J00 - Acute nasopharyngitis [common cold] Plan - Lindsay Houston-Tomy, DO: We discussed that she has had some cough and runny nose for 3 days but the chanc e of it being anything bacterial when she is on broad-spectrum rifampin and Zithromax as well is at the ethamubol is extremely unlikely. She is not febrile. She does not look sick her sat is good her lungs are completely clear. This might be a common cold as her grandchildren have been sick. It could even be just allergies but she certainly does not look sick to me she should monitor her symptoms she takes nasal saline and nasal steroid and loratadine at baseline I would just monitor symptoms she has O2 sat machine at home she can monitor for desaturations but I think she looks as good as I haveseen her in several months. (3) Mycobacterium avium infection: Status: Acute Comment: April 2019-being managed by Dr. Ambriz and Dr. Andrade Code(s): A31.0 - Pulmonary mycobacterial infection SNOMED Code(s): 264455747 Category: Medical Cristobal Chapman, DO: She is about 2 months into treatment total of about 12 months minimum planned for Mycobacterium avium pneumonia. I had not personally seen a case of MAC since residency 25+ years ago and at that time it was in an HIV patient she does have common variable immunodeficiency but that is being adequately treated and her levels had come back up to normal with treatment with the suction worker it isfelt that it most likely was coming from her CellCept immune suppression for her myasthenia gravis disease neurologist feels that that is stable she has been taken off CellCept she does not feel any of her neurologic [...] will see her back in a month (4) Common variable immunodeficiency: Status: Chronic Code(s): D83.9 - Common variable immunodeficiency, unspecified SNOMED Code(s): 80243118 Category: Carine Chapman, DO: From allergy point of view and immunology point of view Dr. denis feels she is doing well he isnot going to see her back for about 6 months he just measured her immunoglobulin levels and feels things are satisfactory (5) Mixed hyperlipidemia: Status: Chronic Code(s): E78.2 - Mixed hyperlipidemia SNOMED Code(s): 769889517 Category: Medical Cristobal Chapman, DO: She is on atorvastatin she had lab work last month her HDL is up in the 80s her LDL is in the 60s liver function test are stable no adjustment in her statin is needed she is starting to be more active (6) 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 Comment: Alternating highs and lows/hypo/ hyperglycemia, gastroparesis, neuropathy-managed with gabapentin Code(s): E11.8 - Type 2 diabetes mellitus with unspecified complications SNOMED Code(s): 49973456 Category: Medical Cristobal Chapman DO: E 11.8 is correct diagnosis for diabetes since last visit she has had no lows but she has had lows in the past she has A1c of 8.4 but over the last month since being able to get off prednisone blood sugars have particularly the last 2 weeks generally not been below 90 nothing above 150 and overall control is been much improved I would not make any current insulin dose adjustments hopefully as herasthma stabilizes she can become a little more active and start to exercise when she was feeling completely debilitated she had applied for a electric wheelchair scooter she does not feel that is necessary so we will hold off on completing that paperwork she will have fasting labs again in 3 months she is up-to-date on eye exam (7) Mild vitamin D deficiency: Status: Chronic Comment: Vitamin D was in good range she will continue her current dose Code(s): E55.9 - Vitamin D deficiency, unspecified SNOMED Code(s): 96089781 Category: Medical Plan - Lindsay Chapman, DO: Continue vitamin D dose and recheck in August (8) Depression with anxiety: Status: Chronic Code(s): F41.8 - Other specified anxiety disorders SNOMED Code(s): 102516640 Category: Medical Plan - Lindsay Chapman, DO: Her anxiety and depression is chronic she has various social stressors but she feels things are relatively stable since I switched her to Zoloft she can always switch back once she is off Zithromax but she thinks it is working just as well as Lexapro may be even better and is okay to stay on it (9) Myasthenia gravis: Status: Chronic Comment: Managed by neurologist Code(s): G70.00 - Myasthenia gravis without (acute) exacerbation SNOMED Code(s): 66647322 Category: Medical Plan - Lindsay Chapman, DO: Just saw a neurologist has been switched to Topamax at bedtime for her headaches and he is trying toget authorization for long-acting Requip for her restless leg syndrome feels she is stable as far asmyasthenia with her Mestinon dose and has discontinued CellCept and switch to low-dose methotrexate which so far has agreed with her she is aware of the side effects Orders Instructions: Type 2 Diabetes in Adults (GEN) Electronically Signed By: <Electronically signed by Lindsay Chapman DO> Date/Time Signed: 06/26/19 1825 Name Value Range Interpretation Code Description Data Sarah rce(s) Supporting Document(s) ID Date Data Source [id number] 06/01/2019 08:19:00 PM EST [facility] [address] [place] [address] [phone] NAME SEX PT STATUS ACCOUNT NUMBER ISIDRA YANEZ REG REF [id number] ORDERING PHYSICIAN LOCATION MEDICAL RECORD NO. Lindsay Chapman DO MAMMO [id number] ATTENDING PHYSICIAN DATE OF DATE OF EXAM/TIME [...] mammogram was read with the assistance of M-[employer]aced[employer], an FDA-approved computer-aided detection system for mammography. Reported By Kalani Vernon MD on 06/01/192018 Signed By Kalani Vernon MD on 06/01/192026 Date Time CC: Kalani Vernon MD; Lindsay Chapman DO Techn: BAKLE Trans Dt/Tm: Trans by: DT Prt Dt/Tm: 1122- 0010: Total DLP = 0.00 mGy-cm 9513-0248: Total Radiation Dose = 0.0000 mSv Lifetime Dose: 25.9895 mSv Name Value Range Interpretation Code Description Data Sarah rce(s) Supporting Document(s) Procedure Social History Code Duration Value Status Description Data Source(s ) Smoking 04/21/2020 12:00:00 AM EDT Never Smoker completed Never S moker [email or web address] ([facility]) Smoking 04/21/2020 12:00:00 AM EDT Never Smoker completed Never S moker [email or web address] ([facility]) Smoking 04/21/2020 12:00:00 AM EDT Never Smoker completed Never S moker [email or web address] ([facility]) Smoking 04/21/2020 12:00:00 AM EDT Never Smoker completed Never S moker [email or web address] ([facility]) Smoking 04/21/2020 12:00:00 AM EDT Never Smoker completed Never S moker [email or web address] ([facility]) Smoking 04/21/2020 12:00:00 AM EDT Never Smoker completed Never S moker [email or web address] ([facility]) Smoking 04/14/2020 12:25:00 PM EDT Never smoker completed Never s [facility] Smoking 04/14/2020 12:25:00 PM EDT Never smoker completed Never s [facility] Smoking 04/14/2020 12:25:00 PM EDT Never smoker completed Never s [facility] Smoking 04/14/2020 12:25:00 PM EDT Never smoker completed Never s [facility] 04/14/2020 11:25:10 AM EDT Never smoker completed Never s [facility] 04/14/2020 11:25:10 AM EDT Never smoker completed Never s [facility] 04/14/2020 11:25:10 AM EDT Never smoker completed Never s [facility] 04/14/2020 11:25:10 AM EDT Never smoker completed Never s [facility] 04/14/2020 09:40:26 AM EDT Never smoker completed Never s [facility] Smoking 04/14/2020 09:40:00 AM EDT Never smoker completed Never s [facility] Smoking 04/10/2020 12:00:00 AM EDT Patient has never smoked co mpleted Patient has never smoked [facility] ([facility], ) Smoking 01/10/2020 12:00:00 AM EDT Patient has never smoked co mpleted Patient has never smoked [facility] ([facility] ) Smoking 01/10/2020 12:00:00 AM EDT Never Smoker completed Never Maggie valero [email or web address] ([facility]) 12/31/2019 09:20:00 AM EDT No completed No 12/31/2019 09:20:00 AM EDT No completed No 12/31/2019 09:20:00 AM EDT No completed No 12/31/2019 09:20:00 AM EDT No completed No 12/31/2019 09:20:00 AM EDT No completed No 12/31/2019 09:20:00 AM EDT No completed No 12/31/2019 09:20:00 AM EDT No completed No 12/31/2019 09:20:00 AM EDT No completed No 12/31/2019 09:20:00 AM EDT No completed No 12/31/2019 09:20:00 AM EDT No completed No 12/31/2019 09:20:00 AM EDT No completed No 12/31/2019 09:20:00 AM EDT No completed No 12/31/2019 09:20:00 AM EDT No completed No 12/31/2019 09:20:00 AM EDT No completed No 12/31/2019 09:20:00 AM EDT No completed No 12/31/2019 09:20:00 AM EDT No completed No 12/31/2019 09:20:00 AM EDT No completed No 12/31/2019 09:20:00 AM EDT No completed No Smoking 12/17/2019 12:00:00 AM EDT Never Smoker completed Never Maggie valero eCW1 ([facility]) 10/31/2019 04:35:00 PM EDT No completed No 10/31/2019 04:35:00 PM EDT No completed No 10/31/2019 04:35:00 PM EDT No completed No 10/11/2019 05:58:00 PM EDT No completed No 10/11/2019 05:58:00 PM EDT No completed No 10/11/2019 05:58:00 PM EDT No completed No 10/11/2019 05:58:00 PM EDT No completed No 10/11/2019 05:58:00 PM EDT No completed No 10/11/2019 05:58:00 PM EDT No completed No 10/11/2019 05:58:00 PM EDT No completed No 10/11/2019 05:58:00 PM EDT No completed No 10/11/2019 05:58:00 PM EDT No completed No Vital Signs ID Date Data Source UNK Name Value Range Interpretation Code Description Data Source(s) Body surface area Derived from formula 2.14 m2 2.14 m2 [facility] ([facility] [place]) Body weight 115.668 kg 115.668 kg [facility]) [place] body weight 115 [lb_av] 115 [facility]lb_av] [facility] [place] Body mass index (BMI) [Ratio] 45.2 kg/m2 45.2 k g/m2 [facility] ([facility] [place]) Body weight 255.00 [lb_av] 255.00 [lb_av] [facility] [place] Body height 63 [in_i] 63 [in_i] [facility] ([facility] 5'3" Diastolic blood pressure 68 mm[Hg] 68 mm[Hg] eCW1 ([facility]) Systolic blood pressure 114 mm[Hg] 114 mm[Hg] e CW1 ([facility]) Body temperature 98.5 [degF] 98.5 [degF] eCW1 ( [facility]) Respiratory rate 16 /min 16 /min eCW1 ([facility]) Heart rate 89 /min 89 /min eCW1 ([facility]) Body mass index (BMI) [Ratio] 45.52 kg/m2 45.52 kg/m2 eCW1 ([facility]) Body height 63 [in_i] 63 [in_i] eCW1 ([facility]) Body weight 257 [lb_av] 257 [lb_av] eCW1 ([facility]) Body surface area Derived from formula 2.15 m2 2.15 m2 [facility] ([facility] [place]) Body weight 115.895 kg 115.895 kg [facility] [place] body weight 115 [lb_av] 115 [lb_av] [facility] ([facility] [place]) Body mass index (BMI) [Ratio] 45.3 kg/m2 45.3 k g/m2 [facility] ([facility] [place]) Body weight 255.50 [lb_av] 255.50 [lb_av] [facility] ([facility] [place]) Body height 63 [in_i] 63 [in_i] [facility] ([facility]) 5'3" Body temperature 96.1 [degF] 96.1 [degF] [facility] ([facility] [place]) Oxygen saturation in Arterial blood by Pulse oximetry 98 % 98 % [facility] ([facility] [place]) Heart rate 67 /min 67 /min [facility] ([facility]) Diastolic blood pressure 68 mm[Hg] 68 mm[Hg] [facility] ([facility] [place]) Systolic blood pressure 132 mm[Hg] 132 mm[Hg] M [facility] ([facility] [place]) Body mass index (BMI) [Ratio] 45.0 kg/m2 45.0 k g/m2 [facility] ([facility] Heart rate 77 /min 77 /min [facility] ([facility] Diastolic blood pressure 80 mm[Hg] 80 mm[Hg] [facility] ([facility] Systolic blood pressure 132 mm[Hg] 132 mm[Hg] M [facility] ([facility] Body weight 254.00 [lb_av] 254.00 [lb_av] [facility] ([facility] Body height 63 [in_i] 63 [in_i] [facility] ([facility] 5'3" Diastolic blood pressure 74 mm[Hg] 74 mm[Hg] eCW1 ([facility]) Systolic blood pressure 132 mm[Hg] 132 mm[Hg] e CW1 ([facility]) Body mass index (BMI) [Ratio] 44.74 kg/m2 44.74 kg/m2 W1 ([facility]) Body height 63 [in_i] 63 [in_i] eCW1 ([facility]) Body weight 252.6 [lb_av] 252.6 [lb_av] eCW1 ([facility]) Body mass index (BMI) [Ratio] 44.7 kg/m2 44.7 k g/m2 [facility] ([facility]) Diastolic blood pressure 76 mm[Hg] 76 mm[Hg] [facility] ([facility]) Systolic blood pressure 112 mm[Hg] 112 mm[Hg] M [facility]ENT ([facility]) Respiratory rate 16 /min 16 /min [facility] ( [facility]) Heart rate 56 /min 56 /min [facility] ([facility] Body height 63 [in_i] 63 [in_i] [facility] ([facility] 5'3" Body weight 252.12 [lb_av] 252.12 [lb_av] [facility] ([facility]) Body weight 112.606 kg 112.606 kg [facility] ([facility], ) Body mass index (BMI) [Ratio] 44.0 kg/m2 44.0 k g/m2 [facility] ([facility] [place]) Body weight 248.25 [lb_av] 248.25 [lb_av] [facility] ([facility] [place]) Body height 63 [in_i] 63 [in_i] [facility] ([facility] 5'3" Body temperature 69.9 [degF] 69.9 [degF] [facility] ([facility] [place]) Oxygen saturation in Arterial blood by Pulse oximetry 98 % 98 % [facility] ([facility] [place]) Heart rate 63 /min 63 /min [facility] ([facility]) Diastolic blood pressure 84 mm[Hg] 84 mm[Hg] [facility] [place]) Systolic blood pressure 132 mm[Hg] 132 mm[Hg] M [facility]ENT ([facility] [place]) Diastolic blood pressure 78 mm[Hg] 78 mm[Hg] eCW1 ([facility]) Systolic blood pressure 124 mm[Hg] 124 mm[Hg] e CW1 ([facility]) Body temperature 97.0 [degF] 97.0 [degF] eCW1 ( [facility]) Respiratory rate 18 /min 18 /min eCW1 ([facility]) Heart rate 94 /min 94 /min eCW1 ([facility]) Body mass index (BMI) [Ratio] 44.56 kg/m2 44.56 kg/m2 W1 ([facility]) Body height 63 [in_i] 63 [in_i] eCW1 ([facility]) Body weight 251.6 [lb_av] 251.6 [lb_av] eCW1 ([facility]) Body weight 115.214 kg 115.214 kg [facility] Body mass index (BMI) [Ratio] 45.0 kg/m2 45.0 k g/m2 [facility] ([facility] [place]) Body weight 254.00 [lb_av] 254.00 [lb_av] [facility] ([facility] [place]) Body height 63 [in_i] 63 [in_i] [facility] ([facility] 5'3" Diastolic blood pressure 66 mm[Hg] 66 mm[Hg] eCW1 ([facility]) Systolic blood pressure 112 mm[Hg] 112 mm[Hg] e CW1 ([facility]) Body temperature 98.2 [degF] 98.2 [degF] eCW1 ( [facility]) Respiratory rate 18 /min 18 /min eCW1 ([facility]) Heart rate 90 /min 90 /min eCW1 ([facility]) Body mass index (BMI) [Ratio] 44.63 kg/m2 44.63 kg/m2 eCW1 ([facility]) Body height 63 [in_us] 63 [in_us] eCW1 ([facility]) Body weight Measured 252 [lb_av] 252 [lb_av] eC W1 ([facility]) Diastolic blood pressure 62 mm[Hg] 62 mm[Hg] eCW1 ([facility]) Systolic blood pressure 112 mm[Hg] 112 mm[Hg] e CW1 ([facility]) Body temperature 97.9 [degF] 97.9 [degF] eCW1 ( [facility]) Respiratory rate 18 /min 18 /min eCW1 ([facility]) Heart rate 85 /min 85 /min eCW1 ([facility]) Body mass index (BMI) [Ratio] 44.28 kg/m2 44.28 kg/m2 eCW1 ([facility]) Body height 63 [in_us] 63 [in_us] eCW1 ([facility]) Body weight Measured 250 [lb_av] 250 [lb_av] eC W1 ([facility]) Body weight 114.307 kg 114.307 kg [facility] ([facility] ) Body mass index (BMI) [Ratio] 44.6 kg/m2 44.6 k g/m2 [facility] ([facility], ) Body weight 252.00 [lb_av] 252.00 [lb_av] [facility] T ([facility], ) Body height 63 [in_i] 63 [in_i] [facility] ([facility], ) 5'3" Oxygen saturation in Arterial blood by Pulse oximetry 98 % 98 % [facility] ([facility], ) Heart rate 80 /min 80 /min [facility], ) Diastolic blood pressure 72 mm[Hg] 72 mm[Hg] [facility], ) Systolic blood pressure 110 mm[Hg] 110 mm[Hg] [facility] Diastolic blood pressure 68 mm[Hg] 68 mm[Hg] eCW1 ([facility]) Systolic blood pressure 126 mm[Hg] 126 mm[Hg] e CW1 ([facility]) Body temperature 98.4 [degF] 98.4 [degF] eCW1 ( [facility]) Respiratory rate 18 /min 18 /min eCW1 ([facility]) Heart rate 91 /min 91 /min eCW1 ([facility]) Body mass index (BMI) [Ratio] 44.46 kg/m2 44.46 kg/m2 W1 ([facility]) Body height 63 [in_us] 63 [in_us] eCW1 ([facility]) Body weight Measured 251 [lb_av] 251 [lb_av] eC W1 ([facility]) Diastolic blood pressure 72 mm[Hg] 72 mm[Hg] eCW1 ([facility]) Systolic blood pressure 124 mm[Hg] 124 mm[Hg] e CW1 ([facility]) Body temperature 97.8 [degF] 97.8 [degF] eCW1 ( [facility]) Respiratory rate 20 /min 20 /min eCW1 ([facility]) Heart rate 99 /min 99 /min eCW1 ([facility]) Body mass index (BMI) [Ratio] 45.87 kg/m2 45.87 kg/m2 W1 ([facility]) Body height 63 [in_us] 63 [in_us] eCW1 ([facility]) Body weight Measured 259 [lb_av] 259 [lb_av] eC W1 ([facility]) ID Date Data Source [id number] 05/15/2020 04:35:00 PM EST [facility] Name Value Range Interpretation Code Description Data Source(s) WEIGHT RECORDED 256.00 pounds 256.00 pounds [facility] Height 63 Inches 063 Inches [facility] Patient Treatment Plan of Care Planned Activity Planned Date Details Description Data Source (s) Albuterol 0.833 MG/ML / Ipratropium [place] 0.167 MG/M L Inhalant Solution 06/19/2020 12:00:00 AM EST eCW1 ([facility]) cefdinir 300 MG Oral Capsule 06/19/2020 12:00:00 AM EST eCW1 ([facility]) Albuterol 0.833 MG/ML / Ipratropium [place] 0.167 MG/M L Inhalant Solution 06/19/2020 12:00:00 AM EST eCW1 ([facility]) cefdinir 300 MG Oral Capsule 06/19/2020 12:00:00 AM EST eCW1 ([facility]) Albuterol 0.833 MG/ML / Ipratropium [place] 0.167 MG/M L Inhalant Solution 06/19/2020 12:00:00 AM EST eCW1 ([facility]) cefdinir 300 MG Oral Capsule 06/19/2020 12:00:00 AM EST eCW1 ([facility]) montelukast 10 MG Oral Tablet 11/20/2019 12:00:00 AM EDT eCW1 ([facility]) Loratadine 10 MG Oral Tablet 11/20/2019 12:00:00 AM EDT eCW1 ([facility]) Levofloxacin 500 MG Oral Tablet 11/08/2019 12:00:00 AM EDT eCW1 ([facility]) Prednisone 20 MG Oral Tablet 11/08/2019 12:00:00 AM EDT eCW1 ([facility]) Prednisone 10 MG Oral Tablet 10/12/2019 12:00:00 AM EDT eCW1 ([facility]) cefdinir 300 MG Oral Capsule 09/24/2019 12:00:00 AM EDT eCW1 ([facility]) AirDuo RespiClick 113/14 113-14 MCG/ACT 09/18/2019 12:00:00 AM EDT eCW1 ([facility]) [employer]pi[employer] 113/14 113-14 MCG/ACT 09/18/2019 12:00:00 AM EDT eCW1 ([facility]) [employer] 113/14 113-14 MCG/ACT 09/18/2019 12:00:00 AM EDT eCW1 ([facility]) cefdinir 300 MG Oral Capsule 07/23/2019 12:00:00 AM EST eCW1 ([facility]) Acidophilus Probiotic Blend - 06/06/2019 12:00:00 AM EST eCW1 ([facility])
[2020-07-30] MEDS ORDERED: FLUT1INH2 INH (20:25)
[2020-07-30] MEDS ORDERED: RIFA300C3 PO (20:25)
[2020-07-30] MEDS ORDERED: FAMO1TAB11 PO (20:25)
[2020-07-30] MEDS ORDERED: PEPC40TA12 PO (20:25)
[2020-07-30] MEDS ORDERED: METH2.5T48 PO (20:25)
[2020-07-30] MEDS ORDERED: ROPI1TAB3 PO (20:25)
[2020-07-30] MEDS ORDERED: SERT-138 PO (20:25)
[2020-07-30] MEDS ORDERED: ROPI2TAB3 PO (20:25)
[2020-07-30] MEDS ORDERED: NEXI40CA PO (20:25)
[2020-07-30] MEDS ORDERED: FOLI1TAB11 PO (20:25)
[2020-07-30] MEDS ORDERED: ETHA1TAB2 PO (20:25)
[2020-07-30] MEDS ORDERED: ATOR40TA75 PO (20:25)
[2020-07-30] MEDS ORDERED: ASPI1TAB8 PO (20:25)
[2020-07-30] MEDS ORDERED: DEXA4TA PO (20:25)
--- OUTSIDE RECORDS SUMMARY | 2020-07-30 20:47 | CCD ---
Author Author [facility] Organization [facility] Address Unknown Phone Unavailable Care Team Providers Care Gravity Manager Name Role Phone Jose Carlos Mendoza Unavailable Unavailable Jose Carlos [...] Unavailable Unavailable Rosemarie-Huitron, Lindsay DO Unavailable Unavailable Clearwater-Huitron, Lindsay DO Unavailable Unavailable Rosemarie-Huitron, Lindsay DO Unavailable Unavailable Clearwater-Huitron, Lindsay DO Unavailable Unavailable Rosemarie-Huitron, Lindsay DO Unavailable Unavailable Clearwater-Huitron, Lindsay DO Unavailable Unavailable Rosemarie-Huitron, Lindsay DO Unavailable Unavailable Clearwater-Huitron, Lindsay DO Unavailable Unavailable Rosemarie-Huitron, Lindsay DO Unavailable Unavailable Rosemarie-Huitron, Lindsay DO Unavailable Unavailable Rosemarie-Huitron, Lindsay DO Unavailable Unavailable Rosemarie-Huitron, Lindsay DO Unavailable Unavailable Rosemarie-Huitron, Lindsay DO Unavailable Unavailable Rosemarie-Huitron, Lindsay DO Unavailable Unavailable Rosemarie-Huitron, Lindsay DO Unavailable Unavailable Clearwater-Huitron, Lindsay DO Unavailable Unavailable Rosemarie-Huitron, Lindsay DO Unavailable Unavailable Clearwater-Huitron, Lindsay DO Unavailable Unavailable Rosemarie-Huitron, Lindsay DO Unavailable Unavailable Rosemarie-Huitron, Lindsay DO Unavailable Unavailable Rosemarie-Huitron, Lindsay DO Unavailable Unavailable Clearwater-Huitron, Lindsay DO Unavailable Unavailable Rosemarie-Huitron, Lindsay DO Unavailable Unavailable Rosemarie-Huitron, Lindsay DO Unavailable Unavailable Clearwater-Huitron, Lindsay DO Unavailable Unavailable Rosemarie-Huitron, Lindsay DO Unavailable Unavailable Rosemarie-Huitron, Lindsay DO Unavailable Unavailable Rosemarie-Huitron, Lindsay DO Unavailable Unavailable Clearwater-Huitron, Lindsay DO Unavailable Unavailable Clearwater-Huitron, Lindsay DO Unavailable Unavailable Clearwater-Huitron, Lindsay DO Unavailable Unavailable Clearwater-Huitron, Lindsay DO Unavailable Unavailable Rosemarie-Huitron, Lindsay DO Unavailable Unavailable Clearwater-Huitron, Lindsay DO Unavailable Unavailable Clearwater-Huitron, Lindsay DO Unavailable Unavailable Rosemarie-Huitron, Lindsay DO Unavailable Unavailable Rosemarie-Huitron, Lindsay DO Unavailable Unavailable Clearwater-Huitron, Lindsay DO Unavailable Unavailable Rosemarie-Huitron, Lindsay DO Unavailable Unavailable Clearwater-Huitron, Lindsay DO Unavailable Unavailable Rosemarie-Huitron, Lindsay DO Unavailable Unavailable Rosemarie-Huitron, Lindsay DO Unavailable Unavailable Rosemarie-Huitron, Lindsay DO Unavailable Unavailable Rosemarie-Huitron, Lindsay DO Unavailable Unavailable Rosemarie-Huitron, Lindsay DO Unavailable Unavailable Clearwater-Huitron, Lindsay DO Unavailable Unavailable Rosemarie-Huitron, Lindsay DO Unavailable Unavailable Rosemarie-Huitron, Lindsay DO Unavailable Unavailable Rosemarie-Huitron, Lindsay DO Unavailable Unavailable Rosemarie-Huitron, Lindsay DO Unavailable Unavailable Rosemarie-Huitron, Lindsay DO Unavailable Unavailable Rosemarie-Huitron, Lindsay DO Unavailable Unavailable Rosemarie-Huitron, Lindsay DO Unavailable Unavailable Clearwater-Huitron, Lindsay DO Unavailable Unavailable Rosemarie-Huitron, Lindsay DO Unavailable Unavailable Rosemarie-Huitron, Lindsay DO Unavailable Unavailable Rosemarie-Huitron, Lindsay DO Unavailable Unavailable Clearwater-Huitron, Lindsay DO Unavailable Unavailable Rosemarie-Huitron, Lindsay DO Unavailable Unavailable Rosemarie-Huitron, Lindsay DO Unavailable Unavailable Clearwater-Huitron, Linsday DO Unavailable Unavailable Rosemarie-Huitron, Lindsay DO Unavailable Unavailable Rosemarie-Huitron, Lindsay DO Unavailable Unavailable Rosemarie-Huitron, Lindsay DO Unavailable Unavailable Clearwater-Huitron, Lindsay DO Unavailable Unavailable Clearwater-Huitron, Lindsay DO Unavailable Unavailable Rosemarie-Huitron, Lindsay DO Unavailable Unavailable Rosemarie-Huitron, Lindsay DO Unavailable Unavailable Clearwater-Huitron, Lindsay DO Unavailable Unavailable Clearwater-Huitron, Lindsay DO Unavailable Unavailable BuniakFrances MD Unavailable [...] Unavailable Unavailable Daisy LEMUS MD Unavailable Unavailable Diasy LEMUS MD Unavailable Unavailable Daisy LEMUS MD [...] MD Unavailable Unavailable KENNDaisy MD Unavailable Unavailable KENN [...] DEL ROSARIO Unavailable Unavailable TAHIR, DOC ANDREW RAILCAR SWITCHER-C Unavailable Unavailable TAHIR, DOC ANDREW RAILCAR SWITCHER-C Unavailable Unavailable TAHIR, DOC ANDREW RAILCAR SWITCHER-C Unavailable Unavailable TAHIR, DOC ANDREW RAILCAR SWITCHER-C Unavailable Unavailable TAHIR, DOC ANDREW RAILCAR SWITCHER-C Unavailable Unavailable TAHIR, DOC ANDREW RAILCAR SWITCHER-C Unavailable Unavailable TAHIR, DOC ANDREW RAILCAR SWITCHER-C Unavailable Unavailable TAHIR, DOC ANDREW RAILCAR SWITCHER-C Unavailable Unavailable TAHIR, DOC ANDREW RAILCAR SWITCHER-C Unavailable Unavailable TAHIR, DOC ANDREW RAILCAR SWITCHER-C Unavailable Unavailable TAHIR, DOC ANDREW RAILCAR SWITCHER-C Unavailable Unavailable TAHIR, DOC ANDREW RAILCAR SWITCHER-C Unavailable Unavailable TAHIR, DOC ANDREW RAILCAR SWITCHER-C Unavailable Unavailable TAHIR, DOC ANDREW RAILCAR SWITCHER-C Unavailable Unavailable TAHIR, DOC ANDREW RAILCAR SWITCHER-C Unavailable Unavailable Henna Moreira MD Unavailable Unavailable [...] ABHILASH DPM Unavailable Unavailable Sparks, L Zara CLINICAL PHARMACY MANAGER Unavailable Unavailable Sparks, L Zara CLINICAL PHARMACY MANAGER Unavailable Unavailable Sparks, L Zara CLINICAL PHARMACY MANAGER Unavailable Unavailable Sparks, L Zara CLINICAL PHARMACY MANAGER Unavailable Unavailable Sparks, L Zara CLINICAL PHARMACY MANAGER Unavailable Unavailable Sparks, L Zara CLINICAL PHARMACY MANAGER Unavailable Unavailable Sparks, L Zara CLINICAL PHARMACY MANAGER Unavailable Unavailable Sparks, L Zara CLINICAL PHARMACY MANAGER Unavailable Unavailable Sparks, L Zara CLINICAL PHARMACY MANAGER Unavailable Unavailable Sparks, L Zara CLINICAL PHARMACY MANAGER Unavailable Unavailable Sparks, L Zara CLINICAL PHARMACY MANAGER Unavailable Unavailable Sparks, L Zara CLINICAL PHARMACY MANAGER Unavailable Unavailable Sparks, L Zara CLINICAL PHARMACY MANAGER Unavailable Unavailable Sparks, L Zara CLINICAL PHARMACY MANAGER Unavailable Unavailable Sparks, L Zara CLINICAL PHARMACY MANAGER Unavailable Unavailable Sparks, L Zara CLINICAL PHARMACY MANAGER Unavailable Unavailable Sparks, L Zara CLINICAL PHARMACY MANAGER Unavailable Unavailable Sparks, L Zara CLINICAL PHARMACY MANAGER Unavailable Unavailable Sparks, L Zara CLINICAL PHARMACY MANAGER Unavailable Unavailable Sparks, L Zara CLINICAL PHARMACY MANAGER Unavailable Unavailable Sparks, L Zara CLINICAL PHARMACY MANAGER Unavailable Unavailable Sparks, L Zara CLINICAL PHARMACY MANAGER Unavailable Unavailable Sparks, L Zara CLINICAL PHARMACY MANAGER Unavailable Unavailable Sparks, L Zara CLINICAL PHARMACY MANAGER Unavailable Unavailable Sparks, L Zara CLINICAL PHARMACY MANAGER Unavailable Unavailable Sparks, L Zara CLINICAL PHARMACY MANAGER Unavailable Unavailable Sparks, L Zara CLINICAL PHARMACY MANAGER Unavailable Unavailable Sparks, L Zara CLINICAL PHARMACY MANAGER Unavailable Unavailable Sparks, L Zara CLINICAL PHARMACY MANAGER Unavailable Unavailable Sparks, L Zara CLINICAL PHARMACY MANAGER Unavailable Unavailable Sparks, L Zara CLINICAL PHARMACY MANAGER Unavailable Unavailable Sparks, L Zara CLINICAL PHARMACY MANAGER Unavailable Unavailable Sparks, L Zara CLINICAL PHARMACY MANAGER Unavailable Unavailable Sparks, L Zara CLINICAL PHARMACY MANAGER Unavailable Unavailable Sparks, L Zara CLINICAL PHARMACY MANAGER Unavailable Unavailable Sparks, L Zara CLINICAL PHARMACY MANAGER Unavailable Unavailable Sparks, L Zara CLINICAL PHARMACY MANAGER Unavailable Unavailable Sparks, L Zara CLINICAL PHARMACY MANAGER Unavailable Unavailable Sparks, L Zara CLINICAL PHARMACY MANAGER Unavailable Unavailable Sparks, L Zara CLINICAL PHARMACY MANAGER Unavailable Unavailable Sparks, L Zara CLINICAL PHARMACY MANAGER Unavailable Unavailable Sparks, L Zara CLINICAL PHARMACY MANAGER Unavailable Unavailable Sparks, L Zara CLINICAL PHARMACY MANAGER Unavailable Unavailable Rosemarie-Huitron, Lindsay DO Unavailable Unavailable Clearwater-Huitron, Lindsay DO Unavailable Unavailable Clearwater-Huitron, Lindsay DO Unavailable Unavailable Clearwater-Huitron, Lindsay DO Unavailable Unavailable Rosemarie-Huitron, Lindsay DO Unavailable Unavailable Clearwater-Huitron, Lindsay DO Unavailable Unavailable Clearwater-Huitron, Lindsay DO Unavailable Unavailable Rosemarie-Huitron, Lindsay DO Unavailable Unavailable Rosemarie-Huitron, Lindsay DO Unavailable Unavailable Rosemarie-Huitron, Lindsay DO Unavailable Unavailable Clearwater-Huitron, Lindsay DO Unavailable Unavailable Clearwater-Huitron, Lindsay DO Unavailable Unavailable Rosemarie-Huitron, Lindsay DO Unavailable Unavailable Rosemarie-Huitron, Lindsay DO Unavailable Unavailable Rosemarie-Huitron, Lindsay DO Unavailable Unavailable Clearwater-Huitron, Lindsay DO Unavailable Unavailable Rosemarie-Huitron, Lindsay DO Unavailable Unavailable Clearwater-Huitron, Lindsay DO Unavailable Unavailable Rosemarie-Huitron, Lindsay DO Unavailable Unavailable Rosemarie-Huitron, Lindsay DO Unavailable Unavailable Rosemarie-Huitron, Lnidsay DO Unavailable Unavailable Clearwater-Huitron, Lindsay DO Unavailable Unavailable Clearwater-Huitron, Lindsay DO Unavailable Unavailable Clearwater-Huitron, Lindsay DO Unavailable Unavailable Clearwater-Huitron, Lindsay DO Unavailable Unavailable Clearwater-Huitron, Lindsay DO Unavailable Unavailable Rosemarie-Huitron, Lindsay DO Unavailable Unavailable Clearwater-Huitron, Lindsay DO Unavailable Unavailable Rosemarie-Huitron, Lindsay DO Unavailable Unavailable Clearwater-Huitron, Lindsay DO Unavailable Unavailable Clearwater-Huitron, Lindsay DO Unavailable Unavailable Clearwater-Huitron, Lindsay DO Unavailable Unavailable Rosemarie-Huitron, Lindsay DO Unavailable Unavailable Clearwater-Huitron, Lindsay DO Unavailable Unavailable Rosemarie-Huitron, Lindsay DO Unavailable Unavailable Rosemarie-Huitron, Lindsay DO Unavailable Unavailable Rosemarie-Huitron, Lindsay DO Unavailable Unavailable Rosemarie-Huitron, Lindsay DO Unavailable Unavailable Rosemarie-Huitron, Lindsay DO Unavailable Unavailable Clearwater-Huitron, Lindsay DO Unavailable Unavailable Rosemarie-Huitron, Lindsay DO Unavailable Unavailable Rosemarie-Huitron, Lindsay DO Unavailable Unavailable Clearwater-Huitron, Lindsay DO Unavailable Unavailable Rosemarie-Huitron, Lindsay DO Unavailable Unavailable Clearwater-Huitron, Lindsay DO Unavailable Unavailable Rosemarie-Huitron, Lindsay DO Unavailable Unavailable Rosemarie-Huitron, Lindsay DO Unavailable Unavailable Clearwater-Huitron, Lindsay DO Unavailable Unavailable Rosemarie-Huitron, Lindsay DO Unavailable Unavailable Rosemarie-Huitron, Lindsay DO Unavailable Unavailable Rosemarie-Huitron, Lindsay DO Unavailable Unavailable Clearwater-Huitron, Lindsay DO Unavailable Unavailable Rosemarie-Huitron, Lindsay DO Unavailable Unavailable Clearwater-Huitron, Lindsay DO Unavailable Unavailable Rosemarie-Huitron, Lindsay DO Unavailable Unavailable Rosemarie-Huitron, Lindsay DO Unavailable Unavailable Rosemarie-Huitron, Lindsay DO Unavailable Unavailable Rosemarie-Huitron, Lindsay DO Unavailable Unavailable Rosemarie-Huitron, Lindsay DO Unavailable Unavailable Clearwater-Huitron, Lindsay DO Unavailable Unavailable Rosemarie-Huitron, Lindsay DO Unavailable Unavailable Rosemarie-Huitron, Lindsay DO Unavailable Unavailable Rosemarie-Huitron, Lindsay DO Unavailable Unavailable Rosemarie-Huitron, Lindsay DO Unavailable Unavailable Clearwater-Huitron, Lindsay DO Unavailable Unavailable Rosemarie-Huitron, Lindsay DO Unavailable Unavailable Clearwater-Huitron, Lindsay DO Unavailable Unavailable Rosemarie-Hutiron, Lindsay DO Unavailable Unavailable Rosemarie-Huitron, Lindsay DO Unavailable Unavailable Clearwater-Huitron, Lindsay DO Unavailable Unavailable Elkin, A Lesli PA Unavailable Unavailable Elkin, A Lesli PA Unavailable Unavailable Elkin, A Lesli PA Unavailable Unavailable Elkin, A Lesli PA Unavailable Unavailable Elkin, A Lesli PA Unavailable Unavailable Elkin, A Lelsi PA Unavailable Unavailable Elkin, A Lesli PA [...] Unavailable Unavailable Price Benites MD Unavailable Unavailable Priec Benites MD Unavailable Unavailable Price Benites MD [...] is protected by Article 27-F of the [facility] Public Health law. If you continue you may have access to information: Regarding HIV / AIDS; Provided by facilities licensed or operated by the [facility] Office of Mental Health; or Provided by the [facility] Office for People With Developmental Disabilities. If such information is present, then the following [facility] mandated warning applies: This information has [...] law may result in a fine or snf sentence or both. A general authorization for the release of medical or other information is NOT sufficient authorization for further disc losure. Allergies and Adverse Reactions Type Description Substance Reaction Status Data Source(s ) BRANDNAME SARAH TYEMICHELLE TREMORS [facility] Drug allergy METFORMIN METFORMIN ANAPHYLAXIS [facility] Drug allergy FLUOXETINE FLUOXETINE RASH [facility] CLASS NSAID NSAID UNKNOWN [facility] CLASS SULFA (sulfonamide) SULFA (sulfonamide) HIVES [facility] Drug allergy metoclopramide metoclopramide Dyskinesia [place] [facility] Drug allergy fluoxetine fluoxetine Other, not liste d U PLEASE VERIFY REACTION/SEVERITY U [facility] Drug allergy metformin metformin LACTIC ACIDOSIS SV [facility] Drug allergy Sulfa (Sulfonamide Antibiotics) Sulfa (Sulfonami de Antibiotics) PRURITIS, HIVES [facility] Drug allergy NSAIDS (Non-Steroidal Anti-Inflamma NSAI DS (Non-Steroidal Anti-Inflamma GI Upset SV [facility] Drug allergy Sulfacetamide Sodium Sulfacetamide Hives Active eCW1 ([facility]) Family History Family Member Name Family Member Gender Family Member Status Date o f Status Description Data Source(s) Unknown Condition [facility] Unknown Condition [facility] Unknown Condition [facility] Unknown Condition [facility] Unknown Condition [facility] Unknown Condition [facility] Unknown Condition [facility] Unknown Condition [facility] Unknown Condition [facility] Unknown Condition [facility] Unknown Condition [facility] Unknown Condition [facility] Unknown Condition [facility] Unknown Condition [facility] Encounters Encounter Providers Location Date Indications Data Source(s ) Outpatient Attender: Lindsay OrellanaHuitron DORefalexander er: Lindsay Houston-Huitron DO 07/30/2020 09:27:00 AM EST - 07/30/2020 04:57:00 PM EST [facility] Outpatient Attender: Lindsay Chapman DORefalexander er: Lindsay Houston-Huitron DO 07/29/2020 09:16:00 AM EST [facility] Outpatient Attender: Zara Sparks CLINICAL PHARMACY MANAGER 07/24/2020 05:49:0 0 PM EST [facility] Outpatient Attender: Zara Sparks NPReferrer: Lindsay hedrickle-Huitron DO 07/24/2020 11:35:00 AM EST - 07/24/2020 12:15:00 PM EST [facility] Outpatient Attender: Antonio Wilkinson MD Main office [facility] 07/21/2020 10:45:00 AM EST [facility] ([facility] Attender: Frances Guerra [...] [facility] [place] [address] [facility] [address] 06/20/2020 12:00:00 AM EST eCW1 ([facility]) [place] [address] [facility] [address] 06/20/2020 12:00:00 AM EST eCW1 ([facility]) [place] [address] [facility] [address] 06/19/2020 12:00:00 AM EST eCW1 ([facility]) [place] [address] [facility] [address] 06/16/2020 12:00:00 AM EST eCW1 ([facility]) Outpatient Attender: Lindsay Chapman DORjeanmarie er: Lindsay Chapman DO 05/30/2020 03:21:00 PM EST [facility] Attender: Frances BURKETTeferrer: Lindsay mcelroyHuitron DO 05/16/2020 08:20:11 PM EST [facility] Attender: Frances BURKETTeferrer: Lindsay mcelroyHuitron DO 05/16/2020 08:20:11 PM EST [facility] Outpatient Attender: Dania Benites MDConsultant: Frances soni MD 05/13/2020 10:29:00 AM EST E78.2,R19.5,E11.8,E55.9,A31.0,K92.1 [facility] E78.2,R19.5,E11.8,E55.9,A31.0,K92.1 Outpatient Attender: Henna Moreira MDConsultant: STAFF NON 04/30/2020 08:30:00 AM EDT - 04/30/2020 12:18:00 PM EDT [facility] Patient discharged. [place] [address] [facility] [address] 04/21/2020 12:00:00 AM EDT eCW1 ([facility]) Outpatient Attender: Lindsay Chapman DO 2019 12:18:00 PM EDT R19.5 [facility] R19.5 Outpatient Attender: Antonio Wilkinson MD [facility] office - [place] 04/16/2020 10:30:00 AM EDT [facility] ([facility] Outpatient Attender: Lindsay Holliday er: Lindsay Chapman DO 04/14/2020 08:50:00 AM EDT - 04/14/2020 10:36:00 AM EDT [facility] Outpatient Attender: ANDREW ORDAZP-Daisy Lemus/Dave/Oscar/Nash rice 04/10/2020 03:45:00 PM EDT [facility] ([facility] Outpatient Attender: Henna Moreira MDConsultant: STAFF NON 04/09/2020 10:45:00 AM EDT - 04/09/2020 12:27:00 PM EDT [facility] Patient discharged. Outpatient Attender: Lindsay Holliday er: Lindsay Chapman DO 03/21/2020 03:15:00 PM EDT [facility] Outpatient Attender: ABHILASH LIN [facility] Office 10/2019 03:30:00 PM EDT [facility] ([facility] Outpatient Attender: SWATHI CARROLL MDReferrer: Bladimir BROWN 02/01/2020 09:55:00 AM EDT [facility]10.13,D83.9 [facility]D83.9 Out[facility] Attender: Jose Carlos BROWN 01/31/2020 08:39:00 AM EDT PAIN [facility] PAIN [place] [address] [facility] [address] 01/24/2020 12:00:00 AM EDT eCW1 ([facility]) Outpatient Attender: Lindsay Chapman DO 2019 12:49:00 PM EDT E78.5,E11.9,E55.9 [facility] E78.5,E11.9,E55.9 Attender: Frances Guerra MDReferrer: Lindsay Solis DO 01/16/2020 08:20:07 PM EDT [facility] Outpatient Attender: Antonio Wilkinson MD Main office - [place] 01/14/2020 11:30:00 AM EDT [facility] ([facility]) Outpatient Attender: SWATHI CARROLL MD Main Office 01/10/2020 09:15:00 AM EDT [facility] ([facility] [place] [address] [address] 01/10/2020 12:00:00 AM EDT [facility] Outpatient Attender: ANDREW LÓPEZ-Daisy Lemus/Dave/Oscar/R eindl 01/03/2020 10:15:00 AM EDT [facility] ([facility] Outpatient Attender: Lindsay Holliday er: Lindsay Chapman DO 12/24/2019 01:47:00 PM EDT - 12/24/2019 03:32:00 PM EDT [facility] Out[place] [address] [facility] [address] 12/17/2019 12:00:00 AM EDT [facility]CW[facility]) Outpatient Attender: Salena Helms MD Main office - [place] 12/06/2019 12:15:00 PM EDT [facility] ([facility]) Outpatient 11/30/2019 06:19:00 AM EDT [facility] Outpatient Attender: JAMES Lemus/Dave/Oscar/Reind l 11/21/2019 10:45:00 AM EDT [facility] ([facility] [address] [facility] [address] 11/20/2019 12:00:00 AM EDT [facility] Attender: Antonio Wilkinson MD Main office - [place] 11/14/2019 12:15:00 PM EDT [facility] ([facility] [place] [address] [facility] [address] 11/14/2019 12:00:00 AM EDT [facility]CW1 [facility] [address] [facility] [address] 11/08/2019 12:00:00 AM EDT [facility]CW1 [facility]) Outpatient Attender: Dania Benites MD 11/03/2019 08:28:00 AM EDT A31.0,J44.9 [facility] A31.0,J44.9 [facility] [address] [address] 11/01/2019 12:00:00 AM EDT [facility]CW[facility]) Outpatient Attender: Lindsay Holliday er: Lindsay Chapman DO 10/29/2019 01:49:00 PM EDT [facility] Outpatient Attender: Lindsay Mendoza: Oracio Vasquez MD 10/15/2019 10:48:00 AM EDT - 10/15/2019 01:04:00 PM EDT [facility] Outpatient Attender: Meng Vasquez MD 10/12/2019 02:03:00 PM EDT R05 [facility] R05 Outpatient Attender: Meng Garzon: Lindsay Lerma DO 10/12/2019 12:49:00 PM EDT - 10/12/2019 12:55:00 PM [place] [address] [address] 10/12/2019 12:00:00 AM EDT [facility] [address] [place] [address], [place] [address] 10/11/2019 12:00:00 AM EDT [facility]CW1 [facility]) [facility] [address] [place] [address] [place] [address] 09/24/2019 12:00:00 AM EDT [facility]CW1 [facility] [address] [place] [address], [place] [address] 09/18/2019 12:00:00 AM EDT [facility]CW1 ([facility] [address] [address] 09/17/2019 12:00:00 AM EDT [facility]CW1 [facility]) Outpatient Attender: ANDREW Lemus/[place]/Oscar/R eindl 08/14/2019 12:45:00 PM EST [facility] ([facility] Outpatient 08/10/2019 01:02:00 PM EST [facility] Outpatient Attender: ANDREW Lemus/[place]/Oscar/R eindl 07/30/2019 07:45:00 AM EST [facility] ([facility] [address] [facility] [facility] [address] 07/23/2019 12:00:00 AM EST [facility]1 [facility] [address] [facility] [facility] [address] 07/19/2019 12:00:00 AM EST eCW1 ([facility]) Outpatient Attender: SWATHI CARROLL MD 06/29/2019 02: 46:00 PM EST D83.9 [facility] D83.9 Outpatient Attender: Lesli BROWN 06/28/2019 12 :13:00 PM EST CHRONIC HIP/BACK PAIN [facility] CHRONIC HIP/BACK PAIN Outpatient Attender: Lindsay MCGARRYeferrer: No Family Doctor Provided 06/26/2019 04:00:00 PM EST - 06/26/2019 05:36:00 PM EST [facility] Outpatient 06/24/2019 06:43:00 PM EST [facility] Outpatient Attender: Salena Helms MD Main office - [place] 06/20/2019 01:15:00 PM EST [facility] ([facility] [address] [facility] [address] 06/19/2019 12:00:00 AM EST [facility] Outpatient Attender: Antonio Wilkinson MD Main office - [place] 06/18/2019 10:15:00 AM EST MEDENT ([facility] [address] [address] 06/14/2019 12:00:00 AM EST eCW1 ([facility]) [facility] [place] [address] [address] 06/04/2019 12:00:00 AM EST eCW1 ([facility]) Outpatient Attender: Lindsay Chapman DO 2018 02:49:00 PM EST SCREEN [facility] SCREEN Immunizations Vaccine Date Status Description Data Source(s) Pneumococcal conjugate PCV 13 04/14/2020 12:00:00 AM EDT complet ed pneumococcal conjugate PCV 13 [facility] Pneumococcal conjugate PCV 13 04/14/2020 12:00:00 AM EDT complet ed pneumococcal conjugate PCV 13 [facility] Pneumococcal conjugate PCV 13 04/14/2020 12:00:00 AM EDT complet ed pneumococcal conjugate PCV 13 [facility] Pneumococcal conjugate PCV 13 04/14/2020 12:00:00 AM EDT complet ed pneumococcal conjugate PCV 13 [facility] IIV3. This is one of two codes replacing CVX 15, which is being retired. 03/19/2020 12:00:00 AM EDT completed influenza vaccine, inactivated [facility] IIV3. This is one of two codes replacing CVX 15, which is being retired. 03/19/2020 12:00:00 AM EDT completed influenza vaccine, inactivated [facility] IIV3. This is one of two codes replacing CVX 15, which is being retired. 03/19/2020 12:00:00 AM EDT completed influenza vaccine, inactivated [facility] IIV3. This is one of two codes replacing CVX 15, which is being retired. 03/19/2020 12:00:00 AM EDT completed influenza vaccine, inactivated [facility] IIV3. This is one of two codes replacing CVX 15, which is being retired. 03/19/2020 12:00:00 AM EDT completed influenza vaccine, inactivated [facility] Tdap 12/24/2019 12:00:00 AM EDT completed tetan us, diphtheria, acell pertussis 7yrs &up [facility] Tdap 12/24/2019 12:00:00 AM EDT completed tetan us, diphtheria, acell pertussis 7yrs &up [facility] Tdap 12/24/2019 12:00:00 AM EDT completed tetan us, diphtheria, acell pertussis 7yrs &up [facility] Tdap 12/24/2019 12:00:00 AM EDT completed tetan us, diphtheria, acell pertussis 7yrs &up [facility] Tdap 12/24/2019 12:00:00 AM EDT completed tetan us, diphtheria, acell pertussis 7yrs &up [facility] Tdap 12/24/2019 12:00:00 AM EDT completed tetan us, diphtheria, acell pertussis 7yrs &up [facility] Tdap 12/24/2019 12:00:00 AM EDT completed tetan us, diphtheria, acell pertussis 7yrs &up [facility] Medications Medication Brand Name Start Date Product Form Dose Route Admi nistrative Instructions Pharmacy Instructions Status Indications Reaction Description Data Source(s) Enalapril Maleate 2.5 MG Oral Tablet Enalapril Maleate 11:07:56 AM EST 0 active [facility] Enalapril Maleate 2.5 MG Oral Tablet Enalapril Maleate 11:07:56 AM EST 0 active [facility] Dexamethasone 6 MG Oral Tablet Dexamethasone 07/27/2020 10:06:[address] 6 MG active [facility] Dexamethasone 6 MG Oral Tablet Dexamethasone 07/27/2020 10:06:[address] 6 MG active [facility] 4 mg 07/27/2020 12:00:00 AM EST tablet 15 TAKE 1 & 1/2 TABLETS BY MOUTH ONCE DAILY TAKE 1 & 1/2 TABLETS BY MOUTH ONCE DAILY SOLD: 07/27/2020 [facility] Enalapril Maleate 2.5 MG Oral Tablet Enalapril Maleate 06/2021 09:19:21 AM EST 2.5 MG completed [facility] Enalapril Maleate 2.5 MG Oral Tablet Enalapril Maleate 06/2021 09:19:21 AM EST 2.5 MG completed [facility] Enalapril Maleate 2.5 MG Oral Tablet Enalapril Maleate 06/2021 09:19:21 AM EST 2.5 MG completed [facility] 2.5 mg 07/22/2020 12:00:00 AM EST tablet [...] Sertraline 06/19/2020 09:41:35 AM EST 0 active [facility] Sertraline 100 MG Oral Tablet Sertraline 06/19/2020 09:41:35 AM EST 0 active [facility] Sertraline 100 MG Oral Tablet Sertraline 06/19/2020 09:41:35 AM EST 0 active [facility] cefdinir 300 MG Oral Capsule Cefdinir 300 MG Cefdinir 300 MG 06/19/2020 12:00:00 AM EST active Cefdinir 300 MG e CW1 ([facility]) Albuterol 0.833 MG/ML / Ipratropium Brom thor 0.167 MG/ML Inhalant Solution Ipratropium-Albuterol 0.5-2.5 (3) MG/3ML Ipratropium-Albuterol 0.5-2.5 (3) MG/3ML 06/19/2020 12:00:00 AM EST 3.0 {ml_as_needed} active Ipratropium-Albuterol 0.5-2.5 (3) MG/3ML eCW1 ([facility]) 0.5 mg-3 mg(2.5 mg base)/3 mL 06/19/2020 [...] {ml_as_needed} active Ipratropium-Albuterol 0.5-2.5 (3) MG/3ML eCW1 ([facility]) 400 mg 06/19/2020 12:00:00 AM EST tablet 120 TAKE FOUR TABLETS BY MOUTH EVERY DAY TAKE FOUR TABLETS BY MOUTH EVERY DAY SOLD: 07/21/2020 [facility] Albuterol 0.833 MG/ML / Ipratropium Brom thor 0.167 MG/ML Inhalant Solution Ipratropium-Albuterol 0.5-2.5 (3) MG/3ML Ipratropium-Albuterol 0.5-2.5 (3) MG/3ML 06/19/2020 12:00:00 AM EST 3.0 {ml_as_needed} active Ipratropium-Albuterol 0.5-2.5 (3) MG/3ML eCW1 ([facility]) Rifampin 300 MG Oral Capsule RIFAMPIN 06/19/2020 [...] EST active Cefdinir 300 MG e CW1 ([facility]) 100 mg 06/19/2020 12:00:00 AM EST tablet [...] EST active Cefdinir 300 MG e CW1 ([facility]) 2.5 mg 06/19/2020 12:00:00 AM EST tablet [...] Famotidine 05/21/2020 06:37:14 PM EST 0 active [facility] Famotidine 20 MG Oral Tablet Famotidine 05/21/2020 06:37:14 PM EST 0 active [facility] Famotidine 20 MG Oral Tablet Famotidine 05/21/2020 06:37:14 PM EST 0 active [facility] Famotidine 20 MG Oral Tablet Famotidine 05/21/2020 06:37:14 PM EST 0 [facility] gabapentin 300 MG Oral Capsule Gabapentin Gabapentin 2019 06:37:12 PM EST 0 [facility] gabapentin 300 MG Oral Capsule Gabapentin Gabapentin 2019 06:37:12 PM EST 0 [facility] gabapentin 300 MG Oral Capsule Gabapentin Gabapentin 2019 06:37:12 PM EST 0 [facility] gabapentin 300 MG Oral Capsule Gabapentin Gabapentin 2019 06:37:12 PM EST 0 [facility] 10 mg 05/16/2020 12:00:00 AM EST capsule [...] 04/23/2020 0 7:47:22 AM EDT 81 MG [facility] Aspirin 81 MG Delayed Release Oral Tablet Aspirin 04/23/2020 0 7:47:22 AM EDT 81 MG [facility] Aspirin 81 MG Delayed Release Oral Tablet Aspirin 04/23/2020 0 7:47:22 AM EDT 81 MG [facility] Aspirin 81 MG Delayed Release Oral Tablet Aspirin 04/23/2020 0 7:47:22 AM EDT 81 MG [facility] montelukast 10 MG Oral Tablet Montelukast Montelukast 04/23/2020 07:45:53 AM EDT 0 active [facility] montelukast 10 MG Oral Tablet Montelukast Montelukast 04/23/2020 07:45:53 AM EDT 0 [facility] montelukast 10 MG Oral Tablet Montelukast Montelukast 04/23/2020 07:45:53 AM EDT 0 [facility] montelukast 10 MG Oral Tablet Montelukast Montelukast 04/23/2020 07:45:53 AM EDT 0 [facility] Esomeprazole 40 MG Delayed Release Oral Capsule Esomep razole Magnesium Esomeprazole Magnesium 04/23/2020 07:45:51 AM EDT 0 [facility] Esomeprazole 40 MG Delayed Release Oral Capsule Esomep razole Magnesium Esomeprazole Magnesium 04/23/2020 07:45:51 AM EDT 0 [facility] Esomeprazole 40 MG Delayed Release Oral Capsule Esomep razole Magnesium Esomeprazole Magnesium 04/23/2020 07:45:51 AM EDT 0 [facility] Esomeprazole 40 MG Delayed Release Oral Capsule Esomep razole Magnesium Esomeprazole Magnesium 04/23/2020 07:45:51 AM EDT 0 active [facility] Loratadine 04/23/2020 07:45:48 AM EDT 0 active [facility] Loratadine 04/23/2020 07:45:48 AM EDT 0 active [facility] Loratadine 04/23/2020 07:45:48 AM EDT 0 active [facility] Loratadine 04/23/2020 07:45:48 AM EDT 0 active [facility] 500 million cell 04/23/2020 12:00:00 AM EDT [...] 12:00:00 AM EDT RESPIRATORY completed MEDENT ( [facility], ) 0.5 ML Streptococcus pneumoniae serotype 1 capsular antigen diphtheria [id number] protein conjugate vaccine 0.0044 MG/ML / Streptococcus pneumoniae serotype 14 capsular antigen diphtheria [id number] protein conjugate vaccine 0.0044 MG/ML / Streptococcus pneumonia Prevnar 13 (PF) (pneumoc 13-rancho conj-dip cr(PF)) 0.5 mL intramuscular syringe Prevnar 13 (PF) (pneumoc 13-rancho conj-dip cr(PF)) 0.5 mL intramuscular syringe 04/14/2020 08:50:46 AM EDT 0.5 ML [facility] 0.5 ML Streptococcus pneumoniae serotype 1 capsular antigen diphtheria [id number] protein conjugate vaccine 0.0044 MG/ML / Streptococcus pneumoniae serotype 14 capsular antigen diphtheria [id number] protein conjugate vaccine 0.0044 MG/ML / Streptococcus pneumonia Prevnar 13 (PF) (pneumoc 13-rancho conj-dip cr(PF)) 0.5 mL intramuscular syringe Prevnar 13 (PF) (pneumoc 13-rancho conj-dip cr(PF)) 0.5 mL intramuscular syringe 04/14/2020 08:50:46 AM EDT 0.5 ML [facility] 0.5 ML Streptococcus pneumoniae serotype 1 capsular antigen diphtheria [id number] protein conjugate vaccine 0.0044 MG/ML / Streptococcus pneumoniae serotype 14 capsular antigen diphtheria [id number] protein conjugate vaccine 0.0044 MG/ML / Streptococcus pneumonia Prevnar 13 (PF) (pneumoc 13-rancho conj-dip cr(PF)) 0.5 mL intramuscular syringe Prevnar 13 (PF) (pneumoc 13-rancho conj-dip cr(PF)) 0.5 mL intramuscular syringe 04/14/2020 08:50:46 AM EDT 0.5 ML [facility] 0.5 ML Streptococcus pneumoniae serotype 1 capsular antigen diphtheria [id number] protein conjugate vaccine 0.0044 MG/ML / Streptococcus pneumoniae serotype 14 capsular antigen diphtheria [id number] protein conjugate vaccine 0.0044 MG/ML / Streptococcus pneumonia Prevnar 13 (PF) (pneumoc 13-rancho conj-dip cr(PF)) 0.5 mL intramuscular syringe Prevnar 13 (PF) (pneumoc 13-rancho conj-dip cr(PF)) 0.5 mL intramuscular syringe 04/14/2020 08:50:46 AM EDT 0.5 ML [facility] 0.5 ML Streptococcus pneumoniae serotype 1 capsular antigen diphtheria [id number] protein conjugate vaccine 0.0044 MG/ML / Streptococcus pneumoniae serotype 14 capsular antigen diphtheria [id number] protein conjugate vaccine 0.0044 MG/ML / Streptococcus pneumonia Prevnar 13 (PF) (pneumoc 13-rancho conj-dip cr(PF)) 0.5 mL intramuscular syringe Prevnar 13 (PF) (pneumoc 13-rancho conj-dip cr(PF)) 0.5 mL intramuscular syringe 04/14/2020 08:50:46 AM EDT 0.5 ML completed [facility] 30 ACTUAT fluticasone furoate 0.1 MG/ACT UAT / vilanterol 0.025 MG/ACTUAT Dry Powder Inhaler [Breo] Breo Ellipta 04/10/2020 12:00:00 AM EDT completed [facility] 0.5 % 04/07/2020 12:00:00 AM [...] 04/02/2020 05:40:54 PM EDT 40 MG active [facility] atorvastatin 40 MG Oral Tablet Atorvastatin Atorvastatin 04/02/2020 05:40:54 PM EDT 40 MG active [facility] atorvastatin 40 MG Oral Tablet Atorvastatin Atorvastatin 04/02/2020 05:40:54 PM EDT 40 MG active [facility] atorvastatin 40 MG Oral Tablet Atorvastatin Atorvastatin 04/02/2020 05:40:54 PM EDT 40 MG active [facility] atorvastatin 40 MG Oral Tablet Atorvastatin Atorvastatin 04/02/2020 05:40:54 PM EDT 40 MG active [facility] Aspirin 81 MG Delayed Release Oral Tablet Aspirin 04/02/2020 0 5:40:20 PM EDT 81 MG active [facility] Aspirin 81 MG Delayed Release Oral Tablet Aspirin 04/02/2020 0 5:40:20 PM EDT 81 MG completed [facility] Aspirin 81 MG Delayed Release Oral Tablet Aspirin 04/02/2020 0 5:40:20 PM EDT 81 MG completed [facility] Aspirin 81 MG Delayed Release Oral Tablet Aspirin 04/02/2020 0 5:40:20 PM EDT 81 MG completed [facility] Aspirin 81 MG Delayed Release Oral Tablet Aspirin 04/02/2020 0 5:40:20 PM EDT 81 MG completed [facility] montelukast 10 MG Oral Tablet Montelukast Montelukast 04/02/2020 05:40:04 PM EDT 10 MG active [facility] montelukast 10 MG Oral Tablet Montelukast Montelukast 04/02/2020 05:40:04 PM EDT 10 MG completed [facility] montelukast 10 MG Oral Tablet Montelukast Montelukast 04/02/2020 05:40:04 PM EDT 10 MG completed [facility] montelukast 10 MG Oral Tablet Montelukast Montelukast 04/02/2020 05:40:04 PM EDT 10 MG completed [facility] montelukast 10 MG Oral Tablet Montelukast Montelukast 04/02/2020 05:40:04 PM EDT 10 MG completed [facility] 100 mg 03/27/2020 12:00:00 AM EDT tablet 60 TAKE ONE TABLET BY MOUTH TWICE A DAY TAKE ONE TABLET BY MOUTH TWICE A DAY SOLD: 07/21/2020 [facility] 100 mg 03/27/2020 12:00:00 AM EDT [...] Drugs Afluria Qd 2019-(3yr up)(PF) (flu vac [id number] 36mos up(P F)) 03/21/2020 03:15:13 PM EDT 60 MCG completed [facility] Qd 2019-21(3yr up)(PF) (flu vac [id number] 36mos up(P F)) 03/21/2020 03:15:13 PM EDT 60 MCG completed [facility] Afluria Qd 2019-21(3yr up)(PF) (flu vac [id number] 36mos up(P F)) 03/21/2020 03:15:13 PM EDT 60 MCG completed [facility] Qd 2019-(3yr up)(PF) (flu vac [id number] 36mos up(P F)) 03/21/2020 03:15:13 PM EDT 60 MCG completed [facility] Afluria Qd 2019-(3yr up)(PF) (flu vac [id number] 36mos up(P F)) 03/21/2020 03:15:13 PM EDT 60 MCG completed [facility] Qd 2019-(3yr up)(PF) (flu vac [id number] 36mos up(P F)) 03/21/2020 03:15:13 PM EDT 60 MCG completed [facility] 2.5 mg 02/24/2020 12:00:00 AM EDT tablet [...] 01/25/2020 11:07:06 AM EDT 40 MG completed [facility] atorvastatin 40 MG Oral Tablet Atorvastatin Atorvastatin 01/25/2020 11:07:06 AM EDT 40 MG completed [facility] atorvastatin 40 MG Oral Tablet Atorvastatin Atorvastatin 01/25/2020 11:07:06 AM EDT 40 MG completed [facility] atorvastatin 40 MG Oral Tablet Atorvastatin Atorvastatin 01/25/2020 11:07:06 AM EDT 40 MG completed [facility] atorvastatin 40 MG Oral Tablet Atorvastatin Atorvastatin 01/25/2020 11:07:06 AM EDT 40 MG active [facility] atorvastatin 40 MG Oral Tablet Atorvastatin Atorvastatin 01/25/2020 11:07:06 AM EDT 40 MG completed [facility] 40 mg 01/25/2020 12:00:00 AM EDT tablet [...] 01/03/2020 11:17:56 AM EDT 40 MG completed [facility] Famotidine 40 MG Oral Tablet Famotidine 01/03/2020 11:17:56 AM EDT 40 MG completed [facility] Famotidine 40 MG Oral Tablet Famotidine 01/03/2020 11:17:56 AM EDT 40 MG completed [facility] Famotidine 40 MG Oral Tablet Famotidine 01/03/2020 11:17:56 AM EDT 40 MG active [facility] Famotidine 40 MG Oral Tablet Famotidine 01/03/2020 11:17:56 AM EDT 40 MG completed [facility] Famotidine 40 MG Oral Tablet Famotidine 01/03/2020 11:17:56 AM EDT 40 MG active [facility] 1 mg 12/27/2019 12:00:00 AM EDT tablet 30 TAKE ONE TABLET BY MOUTH EVERY DAY TAKE ONE TABLET BY MOUTH EVERY DAY SOLD: 02/28/2020 [facility] 1 mg 12/27/2019 12:00:00 AM EDT tablet 30 TAKE ONE TABLET BY MOUTH EVERY DAY TAKE ONE TABLET BY MOUTH EVERY DAY SOLD: 12/30/2019 [facility] 1 mg 12/27/2019 12:00:00 AM EDT tablet 30 TAKE ONE TABLET BY MOUTH EVERY DAY TAKE ONE TABLET BY MOUTH EVERY DAY SOLD: 01/28/2020 [facility] Famotidine 40 MG Oral Tablet Famotidine 12/26/2019 01:55:47 PM EDT 40 MG completed [facility] Famotidine 40 MG Oral Tablet Famotidine 12/26/2019 01:55:47 PM EDT 40 MG completed [facility] Famotidine 40 MG Oral Tablet Famotidine 12/26/2019 01:55:47 PM EDT 40 MG completed [facility] Famotidine 40 MG Oral Tablet Famotidine 12/26/2019 01:55:47 PM EDT 40 MG completed [facility] Famotidine 40 MG Oral Tablet Famotidine 12/26/2019 01:55:47 PM EDT 40 MG completed [facility] Famotidine 40 MG Oral Tablet Famotidine 12/26/2019 01:55:47 PM EDT 40 MG completed [facility] 2.5-2.5 % 12/25/2019 12:00:00 AM EDT [...] active MEDENT ([facility]) 2.5-2.5 % 12/25/2019 12:00:00 AM EDT cream [...] 12/24/2019 02:53:03 PM EDT 65 UNIT a [facility] Insulin Glargine Insulin Glargine 12/24/2019 02:53:03 PM EDT 65 UNIT active [facility] Insulin Glargine Insulin Glargine (Basag lar Kwikpen U-100 Insulin) 100 unit/mL (3 mL) insulin pen Insulin Glargine (Basaglar Kwikpen U-100 Insulin) 100 unit/mL (3 mL) insulin pen 12/24/2019 02:53:03 PM EDT 65 UNIT a [facility] Insulin Glargine Insulin Glargine (Basag lar Kwikpen U-100 Insulin) 100 unit/mL (3 mL) insulin pen Insulin Glargine (Basaglar Kwikpen U-100 Insulin) 100 unit/mL (3 mL) insulin pen 12/24/2019 02:53:03 PM EDT 65 UNIT a [facility] Insulin Glargine Insulin Glargine (Basag lar Kwikpen U-100 Insulin) 100 unit/mL (3 mL) insulin pen Insulin Glargine (Basaglar Kwikpen U-100 Insulin) 100 unit/mL (3 mL) insulin pen 12/24/2019 02:53:03 PM EDT 65 UNIT a [facility] Insulin Glargine Insulin Glargine (Basag lar Kwikpen U-100 Insulin) 100 unit/mL (3 mL) insulin pen Insulin Glargine (Basaglar Kwikpen U-100 Insulin) 100 unit/mL (3 mL) insulin pen 12/24/2019 02:53:03 PM EDT 65 UNIT a [facility] Insulin Glargine Insulin Glargine (Basag lar Kwikpen U-100 Insulin) 100 unit/mL (3 mL) insulin pen Insulin Glargine (Basaglar Kwikpen U-100 Insulin) 100 unit/mL (3 mL) insulin pen 12/24/2019 02:53:03 PM EDT 65 UNIT a [facility] 0.5 ML Bordetella pertussis filamentous hemagglutinin vaccine, inactivated 0.016 MG/ML / Bordetella pertussis pertactin vaccine, inactivated 0.005 MG/ML / Bordetella pertussis toxoid vaccine, inactivated 0.016 MG/ML / diphtheria toxoid vaccine, inactivate diphth,pertus(acell),tetanus 2.5 Lf unit-8 mcg-5 Lf/0.5mL IM syringe diphth,pertus(acell),tetanus 2.5 Lf unit-8 mcg-5 Lf/0. 5mL IM syringe 12/24/2019 01:47:45 PM EDT 0.5 ML completed [facility] 0.5 ML Bordetella pertussis filamentous hemagglutinin vaccine, inactivated 0.016 MG/ML / Bordetella pertussis pertactin vaccine, inactivated 0.005 MG/ML / Bordetella pertussis toxoid vaccine, inactivated 0.016 MG/ML / diphtheria toxoid vaccine, inactivate diphth,pertus(acell),tetanus 2.5 Lf unit-8 mcg-5 Lf/0.5mL IM syringe diphth,pertus(acell),tetanus 2.5 Lf unit-8 mcg-5 Lf/0. 5mL IM syringe 12/24/2019 01:47:45 PM EDT 0.5 ML [facility] 0.5 ML Bordetella pertussis filamentous hemagglutinin vaccine, inactivated 0.016 MG/ML / Bordetella pertussis pertactin vaccine, inactivated 0.005 MG/ML / Bordetella pertussis toxoid vaccine, inactivated 0.016 MG/ML / diphtheria toxoid vaccine, inactivate diphth,pertus(acell),tetanus 2.5 Lf unit-8 mcg-5 Lf/0.5mL IM syringe diphth,pertus(acell),tetanus 2.5 Lf unit-8 mcg-5 Lf/0. 5mL IM syringe 12/24/2019 01:47:45 PM EDT 0.5 ML [facility] 0.5 ML Bordetella pertussis filamentous hemagglutinin vaccine, inactivated 0.016 MG/ML / Bordetella pertussis pertactin vaccine, inactivated 0.005 MG/ML / Bordetella pertussis toxoid vaccine, inactivated 0.016 MG/ML / diphtheria toxoid vaccine, inactivate diphth,pertus(acell),tetanus 2.5 Lf unit-8 mcg-5 Lf/0.5mL IM syringe diphth,pertus(acell),tetanus 2.5 Lf unit-8 mcg-5 Lf/0. 5mL IM syringe 12/24/2019 01:47:45 PM EDT 0.5 ML [facility] 0.5 ML Bordetella pertussis filamentous hemagglutinin vaccine, inactivated 0.016 MG/ML / Bordetella pertussis pertactin vaccine, inactivated 0.005 MG/ML / Bordetella pertussis toxoid vaccine, inactivated 0.016 MG/ML / diphtheria toxoid vaccine, inactivate diphth,pertus(acell),tetanus 2.5 Lf unit-8 mcg-5 Lf/0.5mL IM syringe diphth,pertus(acell),tetanus 2.5 Lf unit-8 mcg-5 Lf/0. 5mL IM syringe 12/24/2019 01:47:45 PM EDT 0.5 ML [facility] 0.5 ML Bordetella pertussis filamentous hemagglutinin vaccine, inactivated 0.016 MG/ML / Bordetella pertussis pertactin vaccine, inactivated 0.005 MG/ML / Bordetella pertussis toxoid vaccine, inactivated 0.016 MG/ML / diphtheria toxoid vaccine, inactivate diphth,pertus(acell),tetanus 2.5 Lf unit-8 mcg-5 Lf/0.5mL IM syringe diphth,pertus(acell),tetanus 2.5 Lf unit-8 mcg-5 Lf/0. 5mL IM syringe 12/24/2019 01:47:45 PM EDT 0.5 ML [facility] 0.5 ML Bordetella pertussis filamentous hemagglutinin vaccine, inactivated 0.016 MG/ML / Bordetella pertussis pertactin vaccine, inactivated 0.005 MG/ML / Bordetella pertussis toxoid vaccine, inactivated 0.016 MG/ML / diphtheria toxoid vaccine, inactivate diphth,pertus(acell),tetanus 2.5 Lf unit-8 mcg-5 Lf/0.5mL IM syringe diphth,pertus(acell),tetanus 2.5 Lf unit-8 mcg-5 Lf/0. 5mL IM syringe 12/24/2019 01:47:45 PM EDT 0.5 ML completed [facility] gabapentin 300 MG Oral Capsule Gabapentin Gabapentin 2019 09:09:04 AM EDT 300 MG completed [facility] gabapentin 300 MG Oral Capsule Gabapentin Gabapentin 2019 09:09:04 AM EDT 300 MG completed [facility] gabapentin 300 MG Oral Capsule Gabapentin Gabapentin 2019 09:09:04 AM EDT 300 MG completed [facility] gabapentin 300 MG Oral Capsule Gabapentin Gabapentin 2019 09:09:04 AM EDT 300 MG completed [facility] gabapentin 300 MG Oral Capsule Gabapentin Gabapentin 2019 09:09:04 AM EDT 300 MG active [facility] gabapentin 300 MG Oral Capsule Gabapentin Gabapentin 2019 09:09:04 AM EDT 300 MG active [facility] gabapentin 300 MG Oral Capsule Gabapentin Gabapentin 2019 09:09:04 AM EDT 300 MG active [facility] 300 mg 11/28/2019 12:00:00 AM EDT capsule [...] 08:36:50 AM EDT 65 UNIT c ompleted [facility] Insulin Glargine Insulin Glargine 11/23/2019 08:36:50 AM EDT 65 UNIT completed [facility] Insulin Glargine Insulin Glargine (Basag lar Kwikpen U-100 Insulin) 100 unit/mL (3 mL) insulin pen Insulin Glargine (Basaglar Kwikpen U-100 Insulin) 100 unit/mL (3 mL) insulin pen 11/23/2019 08:36:50 AM EDT 65 UNIT c ompleted [facility] Insulin Glargine Insulin Glargine (Basag lar Kwikpen U-100 Insulin) 100 unit/mL (3 mL) insulin pen Insulin Glargine (Basaglar Kwikpen U-100 Insulin) 100 unit/mL (3 mL) insulin pen 11/23/2019 08:36:50 AM EDT 65 UNIT c ompleted [facility] Insulin Glargine Insulin Glargine (Basag lar Kwikpen U-100 Insulin) 100 unit/mL (3 mL) insulin pen Insulin Glargine (Basaglar Kwikpen U-100 Insulin) 100 unit/mL (3 mL) insulin pen 11/23/2019 08:36:50 AM EDT 65 UNIT c [facility] Insulin Glargine Insulin Glargine (Basag lar Kwikpen U-100 Insulin) 100 unit/mL (3 mL) insulin pen Insulin Glargine (Basaglar Kwikpen U-100 Insulin) 100 unit/mL (3 mL) insulin pen 11/23/2019 08:36:50 AM EDT 65 UNIT c [facility] Insulin Glargine Insulin Glargine (Basag lar Kwikpen U-100 Insulin) 100 unit/mL (3 mL) insulin pen Insulin Glargine (Basaglar Kwikpen U-100 Insulin) 100 unit/mL (3 mL) insulin pen 11/23/2019 08:36:50 AM EDT 65 UNIT c [facility] 100 unit/mL (3 mL) 11/23/2019 12:00:00 [...] E DT active 1 tablet eCW1 ([facility]) montelukast 10 MG Oral Tablet Montelukast Sodium 10 MG Eric lukast Sodium 10 MG 11/20/2019 12:00:00 AM EDT active 1 tablet eCW1 ([facility]) 500 mg 11/08/2019 12:00:00 AM EDT tablet [...] week, 1/2 tab for 1 week eCW1 ([facility]) 20 mg 11/08/2019 12:00:00 AM EDT tablet [...] ONE-HALF TABLET FOR 1 WEEK SOLD: 11/08/2019 [email or web address] Levofloxacin 500 MG Oral Tablet Levofloxacin 500 MG 11/08/2019 1 2:00:00 AM EDT active 1 tablet [id number] ([facility]) Aspirin 81 MG Delayed Release Oral Tablet Aspirin 11/04/2019 0 1:35:44 PM EDT 81 MG completed [facility] Aspirin 81 MG Delayed Release Oral Tablet Aspirin 11/04/2019 0 1:35:44 PM EDT 81 MG active [facility] Aspirin 81 MG Delayed Release Oral Tablet Aspirin 11/04/2019 0 1:35:44 PM EDT 81 MG active [facility] Aspirin 81 MG Delayed Release Oral Tablet Aspirin 11/04/2019 0 1:35:44 PM EDT 81 MG completed [facility] Aspirin 81 MG Delayed Release Oral Tablet Aspirin 11/04/2019 0 1:35:44 PM EDT 81 MG completed [facility] Aspirin 81 MG Delayed Release Oral Tablet Aspirin 11/04/2019 0 1:35:44 PM EDT 81 MG completed [facility] Aspirin 81 MG Delayed Release Oral Tablet Aspirin 11/04/2019 0 1:35:44 PM EDT 81 MG completed [facility] 81 mg 11/04/2019 12:00:00 AM EDT tablet,delayed [...] DAY FOR A LLERGIC RHINITIS SOLD: 11/01/2019 [email or web address] 40 mg 10/30/2019 12:00:00 AM EDT capsule,delayed release (DR/EC) 60 TAKE ONE CAPSULE BY MOUTH TWICE A DAY TAKE ONE CAPSULE BY MOUTH TWICE A DAY SOLD: 12/30/2019 [facility] 40 mg 10/30/2019 12:00:00 AM EDT capsule,delayed release (DR/EC) 60 TAKE ONE CAPSULE BY MOUTH TWICE A DAY TAKE ONE CAPSULE BY MOUTH TWICE A DAY SOLD: 11/01/2019 [facility] Esomeprazole 40 MG Delayed Release Oral Capsule [...] 1-25 UNITS PER SLIDING SCALE SOLD: 11/01/2019 [facility] montelukast 10 MG Oral Tablet MONTELUKAST SODIUM 10/30/2019 12:0 0:00 AM EDT tablet 30 TAKE ONE TABLET BY MOUTH AT BEDT CINTHIA FOR ALLERGIC RHINITIS TAKE ONE TABLET BY MOUTH AT BEDTIME FOR ALLERGIC RHINITIS SOLD: 11/01/2019 [facility] Esomeprazole 40 MG Delayed Release Oral Capsule [...] 10/29/2019 03:08:41 PM EDT 10 MG completed [facility] montelukast 10 MG Oral Tablet Montelukast Montelukast 10/29/2019 03:08:41 PM EDT 10 MG completed [facility] montelukast 10 MG Oral Tablet Montelukast Montelukast 10/29/2019 03:08:41 PM EDT 10 MG completed [facility] montelukast 10 MG Oral Tablet Montelukast Montelukast 10/29/2019 03:08:41 PM EDT 10 MG active [facility] montelukast 10 MG Oral Tablet Montelukast Montelukast 10/29/2019 03:08:41 PM EDT 10 MG completed [facility] montelukast 10 MG Oral Tablet Montelukast Montelukast 10/29/2019 03:08:41 PM EDT 10 MG active [facility] montelukast 10 MG Oral Tablet Montelukast Montelukast 10/29/2019 03:08:41 PM EDT 10 MG active [facility] montelukast 10 MG Oral Tablet Montelukast Montelukast 10/29/2019 03:08:41 PM EDT 10 MG completed [facility] Loratadine 10 MG Oral Tablet Loratadine 10/29/2019 03:07:56 PM EDT 10 MG completed [facility] Loratadine 10 MG Oral Tablet Loratadine 10/29/2019 03:07:56 PM EDT 10 MG active [facility] Loratadine 10 MG Oral Tablet Loratadine 10/29/2019 03:07:56 PM EDT 10 MG completed [facility] Loratadine 10 MG Oral Tablet Loratadine 10/29/2019 03:07:56 PM EDT 10 MG active [facility] Loratadine 10 MG Oral Tablet Loratadine 10/29/2019 03:07:56 PM EDT 10 MG completed [facility] Loratadine 10 MG Oral Tablet Loratadine 10/29/2019 03:07:56 PM EDT 10 MG completed [facility] Loratadine 10 MG Oral Tablet Loratadine 10/29/2019 03:07:56 PM EDT 10 MG active [facility] Loratadine 10 MG Oral Tablet Loratadine 10/29/2019 03:07:56 PM EDT 10 MG active [facility] Famotidine 20 MG Oral Tablet Famotidine (Pepcid) 20 mg tablet Famotidine (Pepcid) 20 mg tablet 10/29/2019 03:00:34 PM EDT 20 MG c ompleted [facility] Famotidine 20 MG Oral Tablet Famotidine 10/29/2019 03:00:34 PM EDT 20 MG active [facility] Famotidine 20 MG Oral Tablet Famotidine (Pepcid) 20 mg tablet Famotidine (Pepcid) 20 mg tablet 10/29/2019 03:00:34 PM EDT 20 MG c [facility] Famotidine 20 MG Oral Tablet Famotidine (Pepcid) 20 mg tablet Famotidine (Pepcid) 20 mg tablet 10/29/2019 03:00:34 PM EDT 20 MG c [facility] Famotidine 20 MG Oral Tablet Famotidine (Pepcid) 20 mg tablet Famotidine (Pepcid) 20 mg tablet 10/29/2019 03:00:34 PM EDT 20 MG c [facility] Famotidine 20 MG Oral Tablet Famotidine (Pepcid) 20 mg tablet Famotidine (Pepcid) 20 mg tablet 10/29/2019 03:00:34 PM EDT 20 MG c [facility] Famotidine 20 MG Oral Tablet Famotidine (Pepcid) 20 mg tablet Famotidine (Pepcid) 20 mg tablet 10/29/2019 03:00:34 PM EDT 20 MG c [facility] Famotidine 20 MG Oral Tablet Famotidine 10/29/2019 03:00:34 PM EDT 20 MG active [facility] Insulin Lispro 10/29/2019 02:58:32 PM EDT 1 UNIT a [facility] Insulin Lispro (Humalog Kwikpen Insulin) 100 unit/mL insulin pen 10/29/2019 02:58:32 PM EDT 1 UNIT active [facility] Insulin Lispro (Humalog Kwikpen Insulin) 100 unit/mL insulin pen 10/29/2019 02:58:32 PM EDT 1 UNIT active [facility] Insulin Lispro (Humalog Kwikpen Insulin) 100 unit/mL insulin pen 10/29/2019 02:58:32 PM EDT 1 UNIT active [facility] Insulin Lispro (Humalog Kwikpen Insulin) 100 unit/mL insulin pen 10/29/2019 02:58:32 PM EDT 1 UNIT active [facility] Insulin Lispro 10/29/2019 02:58:32 PM EDT 1 UNIT a [facility] Insulin Lispro (Humalog Kwikpen Insulin) 100 unit/mL insulin pen 10/29/2019 02:58:32 PM EDT 1 UNIT active [facility] Insulin Lispro (Humalog Kwikpen Insulin) 100 unit/mL insulin pen 10/29/2019 02:58:32 PM EDT 1 UNIT active [facility] Insulin Glargine Insulin Glargine (Basag lar Kwikpen U-100 Insulin) 100 unit/mL (3 mL) insulin pen Insulin Glargine (Basaglar Kwikpen U-100 Insulin) 100 unit/mL (3 mL) insulin pen 10/29/2019 02:57:47 PM EDT [facility] Insulin Glargine Insulin Glargine 10/29/2019 02:57:47 PM EDT 65 UNIT active [facility] Insulin Glargine Insulin Glargine (Basag lar Kwikpen U-100 Insulin) 100 unit/mL (3 mL) insulin pen Insulin Glargine (Basaglar Kwikpen U-100 Insulin) 100 unit/mL (3 mL) insulin pen 10/29/2019 02:57:47 PM EDT 65 UNIT c ompleted [facility] Insulin Glargine Insulin Glargine 10/29/2019 02:57:47 PM EDT 65 UNIT completed [facility] Insulin Glargine Insulin Glargine (Basag lar Kwikpen U-100 Insulin) 100 unit/mL (3 mL) insulin pen Insulin Glargine (Basaglar Kwikpen U-100 Insulin) 100 unit/mL (3 mL) insulin pen 10/29/2019 02:57:47 PM EDT 65 UNIT c ompleted [facility] Insulin Glargine Insulin Glargine (Basag lar Kwikpen U-100 Insulin) 100 unit/mL (3 mL) insulin pen Insulin Glargine (Basaglar Kwikpen U-100 Insulin) 100 unit/mL (3 mL) insulin pen 10/29/2019 02:57:47 PM EDT [facility] Insulin Glargine Insulin Glargine (Basag lar Kwikpen U-100 Insulin) 100 unit/mL (3 mL) insulin pen Insulin Glargine (Basaglar Kwikpen U-100 Insulin) 100 unit/mL (3 mL) insulin pen 10/29/2019 02:57:47 PM EDT 65 UN[facility] Insulin Glargine Insulin Glargine (Basag lar Kwikpen U-100 Insulin) 100 unit/mL (3 mL) insulin pen Insulin Glargine (Basaglar Kwikpen U-100 Insulin) 100 unit/mL (3 mL) insulin pen 10/29/2019 02:57:47 PM EDT 65 UN[facility] Insulin Glargine Insulin Glargine (Basag lar Kwikpen U-100 Insulin) 100 unit/mL (3 mL) insulin pen Insulin Glargine (Basaglar Kwikpen U-100 Insulin) 100 unit/mL (3 mL) insulin pen 10/29/2019 02:56:48 PM EDT 65 UN[facility] Insulin Glargine Insulin Glargine (Basag lar Kwikpen U-100 Insulin) 100 unit/mL (3 mL) insulin pen Insulin Glargine (Basaglar Kwikpen U-100 Insulin) 100 unit/mL (3 mL) insulin pen 10/29/2019 02:56:48 PM EDT 65 UN[facility] Insulin Glargine Insulin Glargine (Basag lar Kwikpen U-100 Insulin) 100 unit/mL (3 mL) insulin pen Insulin Glargine (Basaglar Kwikpen U-100 Insulin) 100 unit/mL (3 mL) insulin pen 10/29/2019 02:56:48 PM EDT 65 UN[facility] Insulin Glargine Insulin Glargine (Basag lar Kwikpen U-100 Insulin) 100 unit/mL (3 mL) insulin pen Insulin Glargine (Basaglar Kwikpen U-100 Insulin) 100 unit/mL (3 mL) insulin pen 10/29/2019 02:56:48 PM EDT 65 UN[facility] Insulin Glargine Insulin Glargine 10/29/2019 02:56:48 PM EDT 65 UNIT completed [facility] Insulin Glargine Insulin Glargine (Basag lar Kwikpen U-100 Insulin) 100 unit/mL (3 mL) insulin pen Insulin Glargine (Basaglar Kwikpen U-100 Insulin) 100 unit/mL (3 mL) insulin pen 10/29/2019 02:56:48 PM EDT 65 UNIT c ompleted [facility] Insulin Glargine Insulin Glargine 10/29/2019 02:56:48 PM EDT 65 UNIT completed [facility] Insulin Glargine Insulin Glargine (Basag lar Kwikpen U-100 Insulin) 100 unit/mL (3 mL) insulin pen Insulin Glargine (Basaglar Kwikpen U-100 Insulin) 100 unit/mL (3 mL) insulin pen 10/29/2019 02:56:48 PM EDT 65 UNIT c ompleted [facility] Esomeprazole 40 MG Delayed Release Oral Capsule Esomep razole Magnesium Esomeprazole Magnesium 10/29/2019 02:55:50 PM EDT 40 MG completed [facility] Esomeprazole 40 MG Delayed Release Oral Capsule Esomep razole Magnesium Esomeprazole Magnesium 10/29/2019 02:55:50 PM EDT 40 MG completed [facility] Esomeprazole 40 MG Delayed Release Oral Capsule Esomep razole Magnesium Esomeprazole Magnesium 10/29/2019 02:55:50 PM EDT 40 MG active [facility] Esomeprazole 40 MG Delayed Release Oral Capsule Esomep razole Magnesium Esomeprazole Magnesium 10/29/2019 02:55:50 PM EDT 40 MG active [facility] Esomeprazole 40 MG Delayed Release Oral Capsule Esomep razole Magnesium Esomeprazole Magnesium 10/29/2019 02:55:50 PM EDT 40 MG active [facility] Esomeprazole 40 MG Delayed Release Oral Capsule Esomep razole Magnesium Esomeprazole Magnesium 10/29/2019 02:55:50 PM EDT 40 MG active [facility] Esomeprazole 40 MG Delayed Release Oral Capsule Esomep razole Magnesium Esomeprazole Magnesium 10/29/2019 02:55:50 PM EDT 40 MG [facility] Esomeprazole 40 MG Delayed Release Oral Capsule Esomep razole Magnesium Esomeprazole Magnesium 10/29/2019 02:55:50 PM EDT 40 MG [facility] 100 mg 10/29/2019 12:00:00 AM [...] Topiramate 10/29/2019 12:00:00 AM EDT active [facility] ([facility], ) 300 mg 10/29/2019 12:00:00 [...] 10/25/2019 07:24:46 AM EDT 40 MG completed [facility] atorvastatin 40 MG Oral Tablet Atorvastatin Atorvastatin 10/25/2019 07:24:46 AM EDT 40 MG completed [facility] atorvastatin 40 MG Oral Tablet Atorvastatin Atorvastatin 10/25/2019 07:24:46 AM EDT 40 MG active [facility] atorvastatin 40 MG Oral Tablet Atorvastatin Atorvastatin 10/25/2019 07:24:46 AM EDT 40 MG completed [facility] atorvastatin 40 MG Oral Tablet Atorvastatin Atorvastatin 10/25/2019 07:24:46 AM EDT 40 MG completed [facility] atorvastatin 40 MG Oral Tablet Atorvastatin Atorvastatin 10/25/2019 07:24:46 AM EDT 40 MG completed [facility] atorvastatin 40 MG Oral Tablet Atorvastatin Atorvastatin 10/25/2019 07:24:46 AM EDT 40 MG active [facility] atorvastatin 40 MG Oral Tablet Atorvastatin Atorvastatin 10/25/2019 07:24:46 AM EDT 40 MG completed [facility] Epinephrine Epinephrine (Epipen) 0.3 mg/0.3 mL auto-in jector Epinephrine (Epipen) 0.3 mg/0.3 mL auto-injector 10/25/2019 07:20:25 AM EDT 0.3 MG active [facility] Epinephrine Epinephrine (Epipen) 0.3 mg/0.3 mL auto-in jector Epinephrine (Epipen) 0.3 mg/0.3 mL auto-injector 10/25/2019 07:20:25 AM EDT 0.3 MG active [facility] Epinephrine Epinephrine (Epipen) 0.3 mg/0.3 mL auto-in jector Epinephrine (Epipen) 0.3 mg/0.3 mL auto-injector 10/25/2019 07:20:25 AM EDT 0.3 MG active [facility] Epinephrine Epinephrine 10/25/2019 07:20:25 AM EDT 0.3 MG active [facility] Epinephrine Epinephrine (Epipen) 0.3 mg/0.3 mL auto-in jector Epinephrine (Epipen) 0.3 mg/0.3 mL auto-injector 10/25/2019 07:20:25 AM EDT 0.3 MG active [facility] Epinephrine Epinephrine 10/25/2019 07:20:25 AM EDT 0.3 MG active [facility] Epinephrine Epinephrine (Epipen) 0.3 mg/0.3 mL auto-in jector Epinephrine (Epipen) 0.3 mg/0.3 mL auto-injector 10/25/2019 07:20:25 AM EDT 0.3 MG active [facility] Epinephrine Epinephrine (Epipen) 0.3 mg/0.3 mL auto-in jector Epinephrine (Epipen) 0.3 mg/0.3 mL auto-injector 10/25/2019 07:20:25 AM EDT 0.3 MG active [facility] 40 mg 10/25/2019 12:00:00 AM EDT tablet [...] 10/15/2019 01:36:59 PM EDT 100 MG active [facility] Sertraline 100 MG Oral Tablet Sertraline 10/15/2019 01:36:59 PM EDT 100 MG completed [facility] Sertraline 100 MG Oral Tablet Sertraline 10/15/2019 01:36:59 PM EDT 100 MG active [facility] Sertraline 100 MG Oral Tablet Sertraline 10/15/2019 01:36:59 PM EDT 100 MG completed [facility] Sertraline 100 MG Oral Tablet Sertraline 10/15/2019 01:36:59 PM EDT 100 MG active [facility] Sertraline 100 MG Oral Tablet Sertraline 10/15/2019 01:36:59 PM EDT 100 MG active [facility] Sertraline 100 MG Oral Tablet Sertraline 10/15/2019 01:36:59 PM EDT 100 MG completed [facility] Sertraline 100 MG Oral Tablet Sertraline 10/15/2019 01:36:59 PM EDT 100 MG active [facility] Alprazolam 0.25 MG Oral Tablet Alprazolam (Xanax) 0.25 mg tablet Alprazolam (Xanax) 0.25 mg tablet 10/15/2019 01:10:59 PM EDT 0.25 MG active [facility] Alprazolam 0.25 MG Oral Tablet Alprazolam 10/15/2019 01:10:59 PM EDT 0.25 MG active [facility] Alprazolam 0.25 MG Oral Tablet Alprazolam (Xanax) 0.25 mg tablet Alprazolam (Xanax) 0.25 mg tablet 10/15/2019 01:10:59 PM EDT 0.25 MG active [facility] Alprazolam 0.25 MG Oral Tablet Alprazolam (Xanax) 0.25 mg tablet Alprazolam (Xanax) 0.25 mg tablet 10/15/2019 01:10:59 PM EDT 0.25 MG active [facility] Alprazolam 0.25 MG Oral Tablet Alprazolam (Xanax) 0.25 mg tablet Alprazolam (Xanax) 0.25 mg tablet 10/15/2019 01:10:59 PM EDT 0.25 MG active [facility] Alprazolam 0.25 MG Oral Tablet Alprazolam (Xanax) 0.25 mg tablet Alprazolam (Xanax) 0.25 mg tablet 10/15/2019 01:10:59 PM EDT 0.25 MG active [facility] Alprazolam 0.25 MG Oral Tablet Alprazolam 10/15/2019 01:10:59 PM EDT 0.25 MG active [facility] Alprazolam 0.25 MG Oral Tablet Alprazolam (Xanax) 0.25 mg tablet Alprazolam (Xanax) 0.25 mg tablet 10/15/2019 01:10:59 PM EDT 0.25 MG active [facility] gabapentin 300 MG Oral Capsule Gabapentin Gabapentin 2019 12:20:50 PM EDT 300 MG completed [facility] gabapentin 300 MG Oral Capsule Gabapentin Gabapentin 2019 12:20:50 PM EDT 300 MG completed [facility] gabapentin 300 MG Oral Capsule Gabapentin Gabapentin 2019 12:20:50 PM EDT 300 MG completed [facility] gabapentin 300 MG Oral Capsule Gabapentin Gabapentin 2019 12:20:50 PM EDT 300 MG completed [facility] gabapentin 300 MG Oral Capsule Gabapentin Gabapentin 2019 12:20:50 PM EDT 300 MG completed [facility] gabapentin 300 MG Oral Capsule Gabapentin Gabapentin 2019 12:20:50 PM EDT 300 MG active [facility] gabapentin 300 MG Oral Capsule Gabapentin Gabapentin 2019 12:20:50 PM EDT 300 MG completed [facility] gabapentin 300 MG Oral Capsule Gabapentin Gabapentin 2019 12:20:50 PM EDT 300 MG completed [facility] gabapentin 300 MG Oral Capsule Gabapentin Gabapentin 2019 12:20:50 PM EDT 300 MG active [facility] ropinirole 2 MG Oral Tablet Ropinirole Ropinirole 10/15/2019 12:1 9:58 PM EDT 2 MG active [facility] ropinirole 2 MG Oral Tablet Ropinirole Ropinirole 10/15/2019 12:1 9:58 PM EDT 2 MG active [facility] ropinirole 2 MG Oral Tablet Ropinirole Ropinirole 10/15/2019 12:1 9:58 PM EDT 2 MG active [facility] ropinirole 2 MG Oral Tablet Ropinirole Ropinirole 10/15/2019 12:1 9:58 PM EDT 2 MG active [facility] ropinirole 2 MG Oral Tablet Ropinirole Ropinirole 10/15/2019 12:1 9:58 PM EDT 2 MG active [facility] ropinirole 2 MG Oral Tablet Ropinirole Ropinirole 10/15/2019 12:1 9:58 PM EDT 2 MG active [facility] ropinirole 2 MG Oral Tablet Ropinirole Ropinirole 10/15/2019 12:1 9:58 PM EDT 2 MG active [facility] ropinirole 2 MG Oral Tablet Ropinirole Ropinirole 10/15/2019 12:1 9:58 PM EDT 2 MG active [facility] ropinirole 2 MG Oral Tablet Ropinirole Ropinirole 10/15/2019 12:1 9:58 PM EDT 2 MG active [facility] ropinirole 1 MG Oral Tablet Ropinirole Ropinirole 10/15/2019 12:1 9:50 PM EDT 2 MG completed [facility] ropinirole 1 MG Oral Tablet Ropinirole Ropinirole 10/15/2019 12:1 9:50 PM EDT 2 MG completed [facility] ropinirole 1 MG Oral Tablet Ropinirole Ropinirole 10/15/2019 12:1 9:50 PM EDT 2 MG completed [facility] ropinirole 1 MG Oral Tablet Ropinirole Ropinirole 10/15/2019 12:1 9:50 PM EDT 2 MG completed [facility] ropinirole 1 MG Oral Tablet Ropinirole Ropinirole 10/15/2019 12:1 9:50 PM EDT 2 MG active [facility] ropinirole 1 MG Oral Tablet Ropinirole Ropinirole 10/15/2019 12:1 9:50 PM EDT 2 MG completed [facility] ropinirole 1 MG Oral Tablet Ropinirole Ropinirole 10/15/2019 12:1 9:50 PM EDT 2 MG completed [facility] ropinirole 1 MG Oral Tablet Ropinirole Ropinirole 10/15/2019 12:1 9:50 PM EDT 2 MG completed [facility] ropinirole 1 MG Oral Tablet Ropinirole Ropinirole 10/15/2019 12:1 9:50 PM EDT 2 MG completed [facility] Azithromycin Azithromycin 10/15/2019 12:18:12 PM EDT 500 MG [facility] Azithromycin Azithromycin 10/15/2019 12:18:12 PM EDT 500 MG active [facility] Azithromycin Azithromycin 10/15/2019 12:18:12 PM EDT 500 MG active [facility] Azithromycin Azithromycin 10/15/2019 12:18:12 PM EDT 500 MG active [facility] Azithromycin Azithromycin 10/15/2019 12:18:12 PM EDT 500 MG active [facility] Azithromycin Azithromycin 10/15/2019 12:18:12 PM EDT 500 MG active [facility] Azithromycin Azithromycin 10/15/2019 12:18:12 PM EDT 500 MG [facility] Azithromycin Azithromycin 10/15/2019 12:18:12 PM EDT 500 MG [facility] Azithromycin Azithromycin 10/15/2019 12:18:12 PM EDT 500 MG active [facility] Prednisone 10 MG Oral Tablet Prednisone 10/15/2019 10:43:56 AM EDT completed [facility] Prednisone 10 MG Oral Tablet Prednisone 10/15/2019 10:43:56 AM EDT completed [facility] Prednisone 10 MG Oral Tablet Prednisone 10/15/2019 10:43:56 AM EDT completed [facility] Prednisone 10 MG Oral Tablet Prednisone 10/15/2019 10:43:56 AM EDT completed [facility] Prednisone 10 MG Oral Tablet Prednisone 10/15/2019 10:43:56 AM EDT completed [facility] Prednisone 10 MG Oral Tablet Prednisone 10/15/2019 10:43:56 AM EDT completed [facility] Prednisone 10 MG Oral Tablet Prednisone 10/15/2019 10:43:56 AM EDT completed [facility] Prednisone 10 MG Oral Tablet Prednisone 10/15/2019 10:43:56 AM EDT active [facility] Prednisone 10 MG Oral Tablet Prednisone 10/15/2019 10:43:56 AM EDT completed [facility] Zinc 10/15/2019 10:43:47 AM EDT 50 MG active [facility] Zinc 10/15/2019 10:43:47 AM EDT 50 MG [facility] Zinc 10/15/2019 10:43:47 AM EDT 50 MG active [facility] Zinc 10/15/2019 10:43:47 AM EDT 50 MG [facility] Zinc 10/15/2019 10:43:47 AM EDT 50 MG [facility] Zinc 10/15/2019 10:43:47 AM EDT 50 MG [facility] Zinc 10/15/2019 10:43:47 AM EDT 50 MG active [facility] Zinc 10/15/2019 10:43:47 AM EDT 50 MG [facility] Zinc 10/15/2019 10:43:47 AM EDT 50 MG [facility] Ascorbic Acid 500 MG Oral Capsule Ascorbic Acid (Vitam in C) Ascorbic Acid (Vitamin C) 10/15/2019 10:43:25 AM EDT active [facility] Ascorbic Acid 500 MG Oral Capsule Ascorbic Acid (Vitam in C) Ascorbic Acid (Vitamin C) 10/15/2019 10:43:25 AM EDT active [facility] Ascorbic Acid 500 MG Oral Capsule Ascorbic Acid (Vitam in C) Ascorbic Acid (Vitamin C) 10/15/2019 10:43:25 AM EDT active [facility] Ascorbic Acid 500 MG Oral Capsule Ascorbic Acid (Vitam in C) Ascorbic Acid (Vitamin C) 10/15/2019 10:43:25 AM EDT active [facility] Ascorbic Acid 500 MG Oral Capsule Ascorbic Acid (Vitam in C) Ascorbic Acid (Vitamin C) 10/15/2019 10:43:25 AM EDT active [facility] Ascorbic Acid 500 MG Oral Capsule Ascorbic Acid (Vitam in C) Ascorbic Acid (Vitamin C) 10/15/2019 10:43:25 AM EDT active [facility] Ascorbic Acid 500 MG Oral Capsule Ascorbic Acid (Vitam in C) Ascorbic Acid (Vitamin C) 10/15/2019 10:43:25 AM EDT active [facility] Ascorbic Acid 500 MG Oral Capsule Ascorbic Acid (Vitam in C) Ascorbic Acid (Vitamin C) 10/15/2019 10:43:25 AM EDT active [facility] Ascorbic Acid 500 MG Oral Capsule Ascorbic Acid (Vitam in C) Ascorbic Acid (Vitamin C) 10/15/2019 10:43:25 AM EDT active [facility] Fluticasone Propion-Salmeterol 10/15/2019 10:41:40 AM EDT active [facility] Fluticasone Propion-Salmeterol 10/15/2019 10:41:40 AM EDT active [facility] Fluticasone Propion-Salmeterol 10/15/2019 10:41:40 AM EDT active [facility] Fluticasone Propion-Salmeterol 10/15/2019 10:41:40 AM EDT active [facility] Fluticasone Propion-Salmeterol 10/15/2019 10:41:40 AM EDT active [facility] Fluticasone Propion-Salmeterol 10/15/2019 10:41:40 AM EDT active [facility] Fluticasone Propion-Salmeterol 10/15/2019 10:41:40 AM EDT active [facility] Fluticasone Propion-Salmeterol 10/15/2019 10:41:40 AM EDT active [facility] Fluticasone Propion-Salmeterol 10/15/2019 10:41:40 AM EDT active [facility] Alprazolam 0.25 MG Oral Tablet ALPRAZOLAM [...] x 3days, 3 tabs x3days , 2 [id number], 1 tabx 5 days eCW1 ([facility]) Esomeprazole 40 MG Delayed Release Oral Capsule Esomep razole Magnesium Esomeprazole Magnesium 10/05/2019 08:42:14 AM EDT 40 MG completed [facility] Esomeprazole 40 MG Delayed Release Oral Capsule Esomep razole Magnesium Esomeprazole Magnesium 10/05/2019 08:42:14 AM EDT 40 MG active [facility] Esomeprazole 40 MG Delayed Release Oral Capsule Esomep razole Magnesium Esomeprazole Magnesium 10/05/2019 08:42:14 AM EDT 40 MG completed [facility] Esomeprazole 40 MG Delayed Release Oral Capsule Esomep razole Magnesium Esomeprazole Magnesium 10/05/2019 08:42:14 AM EDT 40 MG completed [facility] Esomeprazole 40 MG Delayed Release Oral Capsule Esomep razole Magnesium Esomeprazole Magnesium 10/05/2019 08:42:14 AM EDT 40 MG completed [facility] Esomeprazole 40 MG Delayed Release Oral Capsule Esomep razole Magnesium Esomeprazole Magnesium 10/05/2019 08:42:14 AM EDT 40 MG completed [facility] Esomeprazole 40 MG Delayed Release Oral Capsule Esomep razole Magnesium Esomeprazole Magnesium 10/05/2019 08:42:14 AM EDT 40 MG completed [facility] Esomeprazole 40 MG Delayed Release Oral Capsule Esomep razole Magnesium Esomeprazole Magnesium 10/05/2019 08:42:14 AM EDT 40 MG completed [facility] Esomeprazole 40 MG Delayed Release Oral Capsule Esomep razole Magnesium Esomeprazole Magnesium 10/05/2019 08:42:14 AM EDT 40 MG completed [facility] Esomeprazole 40 MG Delayed Release Oral Capsule Esomep razole Magnesium Esomeprazole Magnesium 10/05/2019 08:42:14 AM EDT 40 MG active [facility] 40 mg 10/05/2019 12:00:00 AM EDT capsule,delayed [...] 12:00:00 AM EDT active 1 tab eCW1 ([facility]) 113-14 mcg/actuation 09/18/2019 12:00:00 AM EDT aerosol powdr breath activated 1 INHALE ONE PUFF BY MOUTH TWICE A DAY INHA LE ONE PUFF BY MOUTH TWICE A DAY SOLD: 12/30/2019 [facility] 113-14 mcg/actuation 09/18/2019 12:00:00 AM EDT aerosol powdr breath activated 1 INHALE ONE PUFF BY MOUTH TWICE A DAY INHA LE ONE PUFF BY MOUTH TWICE A DAY SOLD: 09/18/2019 [facility] AirDuo RespiClick 113/14 113-14 MCG/ACT AirDuo RespiClick 11 09/21 113-14 MCG/ACT 09/18/2019 12:00:00 AM EDT active 1 puff eCW1 ([facility]) AirDuo RespiClick 113/14 113-14 MCG/ACT AirDuo RespiClick 11 09/21 113-14 MCG/ACT 09/18/2019 12:00:00 AM EDT active 1 puff eCW1 ([facility]) [employer]Du[employer] RespiClick 113/14 113-14 MCG/ACT AirDuo RespiClick 11 09/21 113-14 MCG/ACT 09/18/2019 12:00:00 AM EDT active 1 puff eCW1 ([facility]) 113-14 mcg/actuation 09/18/2019 12:00:00 AM EDT aerosol powdr breath activated 1 INHALE ONE PUFF BY MOUTH TWICE A DAY INHA LE ONE PUFF BY MOUTH TWICE A DAY SOLD: 12/01/2019 [facility] AirDuo RespiClick 113/14 113-14 MCG/ACT AirDuo RespiClick 11 09/21 113-14 MCG/ACT 09/18/2019 12:00:00 AM EDT 1.0 {puff} active [employer] 113/14 113-14 MCG/ACT eCW1 ([facility]) [employer]Duo RespiClick 113/14 113-14 MCG/ACT AirDuo RespiClick 11 09/21 113-14 MCG/ACT 09/18/2019 12:00:00 AM EDT 1.0 {puff} active [employer] 113/14 113-14 MCG/ACT eCW1 ([facility]) 113-14 mcg/actuation 09/18/2019 12:00:00 AM EDT aerosol [...] 09/11/2019 12: 00:00 AM EST completed MEDENT ([facility]) 62.5 mcg/actuation 08/23/2019 12:00:00 [...] PUFF BY MOUTH EVERY DAY SOLD: 09/25/2019 [email or web address] Esomeprazole 40 MG Delayed Release Oral Capsule Esomep razole Magnesium Esomeprazole Magnesium 08/14/2019 09:48:39 AM EST 40 MG completed [facility] Esomeprazole 40 MG Delayed Release Oral Capsule Esomep razole Magnesium Esomeprazole Magnesium 08/14/2019 09:48:39 AM EST 40 MG completed [facility] Esomeprazole 40 MG Delayed Release Oral Capsule Esomep razole Magnesium Esomeprazole Magnesium 08/14/2019 09:48:39 AM EST 40 MG completed [facility] Esomeprazole 40 MG Delayed Release Oral Capsule Esomep razole Magnesium Esomeprazole Magnesium 08/14/2019 09:48:39 AM EST 40 MG completed [facility] Esomeprazole 40 MG Delayed Release Oral Capsule Esomep razole Magnesium Esomeprazole Magnesium 08/14/2019 09:48:39 AM EST 40 MG completed [facility] Esomeprazole 40 MG Delayed Release Oral Capsule Esomep razole Magnesium Esomeprazole Magnesium 08/14/2019 09:48:39 AM EST 40 MG completed [facility] Esomeprazole 40 MG Delayed Release Oral Capsule Esomep razole Magnesium Esomeprazole Magnesium 08/14/2019 09:48:39 AM EST 40 MG completed [facility] Esomeprazole 40 MG Delayed Release Oral Capsule Esomep razole Magnesium Esomeprazole Magnesium 08/14/2019 09:48:39 AM EST 40 MG completed [facility] Esomeprazole 40 MG Delayed Release Oral Capsule Esomep razole Magnesium Esomeprazole Magnesium 08/14/2019 09:48:39 AM EST 40 MG completed [facility] Esomeprazole 40 MG Delayed Release Oral Capsule Esomep razole Magnesium Esomeprazole Magnesium 08/14/2019 09:48:39 AM EST 40 MG completed [facility] 500 million cell 08/07/2019 12:00:00 AM EST [...] 07/29/2019 08:43:08 AM EST 50 MG completed [facility] Sertraline 50 MG Oral Tablet Sertraline 07/29/2019 08:43:08 AM EST 50 MG completed [facility] Sertraline 50 MG Oral Tablet Sertraline 07/29/2019 08:43:08 AM EST 50 MG completed [facility] Sertraline 50 MG Oral Tablet Sertraline 07/29/2019 08:43:08 AM EST 50 MG completed [facility] Sertraline 50 MG Oral Tablet Sertraline 07/29/2019 08:43:08 AM EST 50 MG completed [facility] Sertraline 50 MG Oral Tablet Sertraline 07/29/2019 08:43:08 AM EST 50 MG completed [facility] Sertraline 50 MG Oral Tablet Sertraline 07/29/2019 08:43:08 AM EST 50 MG active [facility] Sertraline 50 MG Oral Tablet Sertraline 07/29/2019 08:43:08 AM EST 50 MG completed [facility] Sertraline 50 MG Oral Tablet Sertraline 07/29/2019 08:43:08 AM EST 50 MG active [facility] Sertraline 50 MG Oral Tablet Sertraline 07/29/2019 08:43:08 AM EST 50 MG completed [facility] 50 mg 07/29/2019 12:00:00 AM EST [...] 07/25/2019 05:47:25 PM EST 40 MG completed [facility] Esomeprazole 40 MG Delayed Release Oral Capsule Esomep razole Magnesium Esomeprazole Magnesium 07/25/2019 05:47:25 PM EST 40 MG completed [facility] Esomeprazole 40 MG Delayed Release Oral Capsule Esomep razole Magnesium Esomeprazole Magnesium 07/25/2019 05:47:25 PM EST 40 MG completed [facility] Esomeprazole 40 MG Delayed Release Oral Capsule Esomep razole Magnesium Esomeprazole Magnesium 07/25/2019 05:47:25 PM EST 40 MG completed [facility] Esomeprazole 40 MG Delayed Release Oral Capsule Esomep razole Magnesium Esomeprazole Magnesium 07/25/2019 05:47:25 PM EST 40 MG completed [facility] Esomeprazole 40 MG Delayed Release Oral Capsule Esomep razole Magnesium Esomeprazole Magnesium 07/25/2019 05:47:25 PM EST 40 MG completed [facility] Esomeprazole 40 MG Delayed Release Oral Capsule Esomep razole Magnesium Esomeprazole Magnesium 07/25/2019 05:47:25 PM EST 40 MG completed [facility] Esomeprazole 40 MG Delayed Release Oral Capsule Esomep razole Magnesium Esomeprazole Magnesium 07/25/2019 05:47:25 PM EST 40 MG completed [facility] Esomeprazole 40 MG Delayed Release Oral Capsule Esomep razole Magnesium Esomeprazole Magnesium 07/25/2019 05:47:25 PM EST 40 MG completed [facility] Esomeprazole 40 MG Delayed Release Oral Capsule Esomep razole Magnesium Esomeprazole Magnesium 07/25/2019 05:47:25 PM EST 40 MG completed [facility] cefdinir 300 MG Oral Capsule Cefdinir 300 MG Cefdinir 300 MG 07/23/2019 12:00:00 AM EST active 1 tab eCW1 ([facility]) cefdinir 300 MG Oral Capsule Cefdinir 300 MG Cefdinir 300 MG 07/23/2019 12:00:00 AM EST active 1 tab eCW1 ([facility]) 300 mg 07/23/2019 12:00:00 AM EST capsule [...] TABLET BY MOUTH EVERY DAY SOLD: 07/19/2019 [facility] 2.5 mg 07/15/2019 [...] 07/14/2019 08:27:12 AM EST 300 MG completed [facility] Ranitidine 150 MG Oral Tablet Ranitidine Hcl Ranitidine Hcl 07/14/2019 08:27:12 AM EST 300 MG completed [facility] Ranitidine 150 MG Oral Tablet Ranitidine Hcl Ranitidine Hcl 07/14/2019 08:27:12 AM EST 300 MG active [facility] Ranitidine 150 MG Oral Tablet Ranitidine Hcl Ranitidine Hcl 07/14/2019 08:27:12 AM EST 300 MG completed [facility] Ranitidine 150 MG Oral Tablet Ranitidine Hcl Ranitidine Hcl 07/14/2019 08:27:12 AM EST 300 MG completed [facility] Ranitidine 150 MG Oral Tablet Ranitidine Hcl Ranitidine Hcl 07/14/2019 08:27:12 AM EST 300 MG completed [facility] Ranitidine 150 MG Oral Tablet Ranitidine Hcl Ranitidine Hcl 07/14/2019 08:27:12 AM EST 300 MG completed [facility] Ranitidine 150 MG Oral Tablet Ranitidine Hcl Ranitidine Hcl 07/14/2019 08:27:12 AM EST 300 MG completed [facility] Ranitidine 150 MG Oral Tablet Ranitidine Hcl Ranitidine Hcl 07/14/2019 08:27:12 AM EST 300 MG active [facility] Ranitidine 150 MG Oral Tablet Ranitidine Hcl Ranitidine Hcl 07/14/2019 08:27:12 AM EST 300 MG completed [facility] Ergocalciferol [id number] UNT Oral Capsule Er gocalciferol (Vitamin D2) (Vitamin D2) 1,250 mcg (50,000 unit) capsule Ergocalciferol (Vitamin D2) (Vitamin D2) 1,250 mcg (50,000 unit) capsule 07/14/2019 08:26:59 AM EST [id number] UNIT active [facility] Ergocalciferol 28185 UNT Oral Capsule Er gocalciferol (Vitamin D2) (Vitamin D2) 1,250 mcg (50,000 unit) capsule Ergocalciferol (Vitamin D2) (Vitamin D2) 1,250 mcg (50,000 unit) capsule 07/14/2019 08:26:59 AM EST [id number] UNIT active [facility] Ergocalciferol 35086 UNT Oral Capsule Ergocalciferol ( Vitamin D2) Ergocalciferol (Vitamin D2) 07/14/2019 08:26:59 AM EST [id number] 77410 UNT Oral Capsule Er gocalciferol (Vitamin D2) (Vitamin D2) 1,250 mcg (50,000 unit) capsule Ergocalciferol (Vitamin D2) (Vitamin D2) 1,250 mcg (50,000 unit) capsule 07/14/2019 08:26:59 AM EST 31849 UNIT active [facility] Ergocalciferol 71575 UNT Oral Capsule Ergocalciferol ( Vitamin D2) Ergocalciferol (Vitamin D2) 07/14/2019 08:26:59 AM EST 82[facility] 95840 UNT Oral Capsule Ergocalciferol ( Vitamin D2) Ergocalciferol (Vitamin D2) 07/14/2019 08:26:59 AM EST 18987 UNIT [facility] Ergocalciferol 77417 UNT Oral Capsule Er gocalciferol (Vitamin D2) (Vitamin D2) 1,250 mcg (50,000 unit) capsule Ergocalciferol (Vitamin D2) (Vitamin D2) 1,250 mcg (50,000 unit) capsule 07/14/2019 08:26:59 AM EST [id number] UNIT active [facility] Ergocalciferol 37157 UNT Oral Capsule Er gocalciferol (Vitamin D2) (Vitamin D2) 1,250 mcg (50,000 unit) capsule Ergocalciferol (Vitamin D2) (Vitamin D2) 1,250 mcg (50,000 unit) capsule 07/14/2019 08:26:59 AM EST [id number] UNIT active [facility] Ergocalciferol 17943 UNT Oral Capsule Er gocalciferol (Vitamin D2) (Vitamin D2) 1,250 mcg (50,000 unit) capsule Ergocalciferol (Vitamin D2) (Vitamin D2) 1,250 mcg (50,000 unit) capsule 07/14/2019 08:26:59 AM EST [id number] UNIT active [facility] Ergocalciferol 76539 UNT Oral Capsule Ergocalciferol ( Vitamin D2) Ergocalciferol (Vitamin D2) 07/14/2019 08:26:59 AM EST [id number] UNIT acti ve [facility] Enalapril Maleate 2.5 MG Oral Tablet Enalapril Maleate 10/2019 08:26:34 AM EST 2.5 MG active [facility] Enalapril Maleate 2.5 MG Oral Tablet Enalapril Maleate 10/2019 08:26:34 AM EST 2.5 MG active [facility] Enalapril Maleate 2.5 MG Oral Tablet Enalapril Maleate 10/2019 08:26:34 AM EST 2.5 MG active [facility] Enalapril Maleate 2.5 MG Oral Tablet Enalapril Maleate 10/2019 08:26:34 AM EST 2.5 MG active [facility] Enalapril Maleate 2.5 MG Oral Tablet Enalapril Maleate 10/2019 08:26:34 AM EST 2.5 MG completed [facility] Enalapril Maleate 2.5 MG Oral Tablet Enalapril Maleate 10/2019 08:26:34 AM EST 2.5 MG active [facility] Enalapril Maleate 2.5 MG Oral Tablet Enalapril Maleate 10/2019 08:26:34 AM EST 2.5 MG active [facility] Enalapril Maleate 2.5 MG Oral Tablet Enalapril Maleate 10/2019 08:26:34 AM EST 2.5 MG active [facility] Enalapril Maleate 2.5 MG Oral Tablet Enalapril Maleate 10/2019 08:26:34 AM EST 2.5 MG completed [facility] Enalapril Maleate 2.5 MG Oral Tablet Enalapril Maleate 10/2019 08:26:34 AM EST 2.5 MG completed [facility] 1 mg 06/29/2019 12:00:00 AM EST tablet [...] Aspirin 06/26/2019 0 4:08:04 PM EST completed [facility] Aspirin 81 MG Delayed Release Oral Tablet Aspirin 06/26/2019 0 4:08:04 PM EST active [facility] Aspirin 81 MG Delayed Release Oral Tablet Aspirin 06/26/2019 0 4:08:04 PM EST completed [facility] Aspirin 81 MG Delayed Release Oral Tablet Aspirin 06/26/2019 0 4:08:04 PM EST completed [facility] Aspirin 81 MG Delayed Release Oral Tablet Aspirin 06/26/2019 0 4:08:04 PM EST completed [facility] Aspirin 81 MG Delayed Release Oral Tablet Aspirin 06/26/2019 0 4:08:04 PM EST completed [facility] Aspirin 81 MG Delayed Release Oral Tablet Aspirin 06/26/2019 0 4:08:04 PM EST completed [facility] Aspirin 81 MG Delayed Release Oral Tablet Aspirin 06/26/2019 0 4:08:04 PM EST active [facility] Aspirin 81 MG Delayed Release Oral Tablet Aspirin 06/26/2019 0 4:08:04 PM EST active [facility] Aspirin 81 MG Delayed Release Oral Tablet Aspirin 06/26/2019 0 4:08:04 PM EST completed [facility] Lactobacillus acidophilus [id number] UNT Oral Tablet La ctobacillus Acidophilus Lactobacillus Acidophilus 06/26/2019 04:07:06 PM EST active [facility] Lactobacillus acidophilus [id number] UNT Oral Tablet La ctobacillus Acidophilus Lactobacillus Acidophilus 06/26/2019 04:07:06 PM [facility] Lactobacillus acidophilus [id number] UNT Oral Tablet La ctobacillus Acidophilus Lactobacillus Acidophilus 06/26/2019 04:07:06 PM [facility] Lactobacillus acidophilus [id number] UNT Oral Tablet La ctobacillus Acidophilus Lactobacillus Acidophilus 06/26/2019 04:07:06 PM [facility] Lactobacillus acidophilus [id number] UNT Oral Tablet La ctobacillus Acidophilus Lactobacillus Acidophilus 06/26/2019 04:07:06 PM [facility] Lactobacillus acidophilus [id number] UNT Oral Tablet La ctobacillus Acidophilus Lactobacillus Acidophilus 06/26/2019 04:07:06 PM [facility] Lactobacillus acidophilus [id number] UNT Oral Tablet La ctobacillus Acidophilus Lactobacillus Acidophilus 06/26/2019 04:07:06 PM [facility] Lactobacillus acidophilus [id number] UNT Oral Tablet La ctobacillus Acidophilus Lactobacillus Acidophilus 06/26/2019 04:07:06 PM [facility] Lactobacillus acidophilus [id number] UNT Oral Tablet La ctobacillus Acidophilus Lactobacillus Acidophilus 06/26/2019 04:07:06 PM [facility] Lactobacillus acidophilus [id number] UNT Oral Tablet La ctobacillus Acidophilus Lactobacillus Acidophilus 06/26/2019 04:07:06 PM [facility] 24 HR ropinirole 2 MG Extended Release Oral Tablet Ropinirol e HCL ER 06/20/2019 12:00:00 AM EST ORAL completed [facility] ([facility] ) gabapentin 300 MG Oral Capsule Gabapentin Gabapentin 2018 01:48:45 PM EST 300 MG completed [facility] gabapentin 300 MG Oral Capsule Gabapentin Gabapentin 2018 01:48:45 PM EST 300 MG completed [facility] gabapentin 300 MG Oral Capsule Gabapentin Gabapentin 2018 01:48:45 PM EST 300 MG active [facility] gabapentin 300 MG Oral Capsule Gabapentin Gabapentin 2018 01:48:45 PM EST 300 MG active [facility] gabapentin 300 MG Oral Capsule Gabapentin Gabapentin 2018 01:48:45 PM EST 300 MG completed [facility] gabapentin 300 MG Oral Capsule Gabapentin Gabapentin 2018 01:48:45 PM EST 300 MG completed [facility] gabapentin 300 MG Oral Capsule Gabapentin Gabapentin 2018 01:48:45 PM EST 300 MG completed [facility] gabapentin 300 MG Oral Capsule Gabapentin Gabapentin 2018 01:48:45 PM EST 300 MG [facility] gabapentin 300 MG Oral Capsule Gabapentin Gabapentin 2018 01:48:45 PM EST 300 MG [facility] gabapentin 300 MG Oral Capsule Gabapentin Gabapentin 2018 01:48:45 PM EST 300 MG [facility] Blood Sugar Diagnostic 06/18/2019 01:48:33 PM EST active [facility] Blood Sugar Diagnostic (Onetouch Verio) strip 06/18/2019 0 1:48:33 PM EST active [facility] Blood Sugar Diagnostic (Onetouch Verio) strip 06/18/2019 0 1:48:33 PM EST active [facility] Blood Sugar Diagnostic 06/18/2019 01:48:33 PM EST active [facility] Blood Sugar Diagnostic (Onetouch Verio) strip 06/18/2019 0 1:48:33 PM EST active [facility] Blood Sugar Diagnostic (Onetouch Verio) strip 06/18/2019 0 1:48:33 PM EST active [facility] Blood Sugar Diagnostic 06/18/2019 01:48:33 PM EST active [facility] Blood Sugar Diagnostic 06/18/2019 01:48:33 PM EST active [facility] Blood Sugar Diagnostic (Onetouch Verio) strip 06/18/2019 0 1:48:33 PM EST active [facility] Blood Sugar Diagnostic (Nimatouch Chacortaio) strip 06/18/2019 0 1:48:33 PM EST active [facility] BLOOD SUGAR DIAGNOSTIC 06/18/2019 12:00:00 AM EST [...] 12:00:00 AM EST active 1 cap eCW1 ([facility]) Acidophilus Probiotic Blend - Acidophilus Probiotic Blend - 06/06/2019 12:00:00 AM EST active 1 cap eCW1 ([facility]) ropinirole 0.25 MG Oral Tablet [Requip] Requip 06/06/2019 12:00:0 0 AM EST ORAL completed [facility] ([facility]) ropinirole 2 MG Oral Tablet Ropinirole HCL 06/06/2019 12:00:00 AM EST active [facility] ([facility]) Acidophilus Probiotic Blend - Acidophilus Probiotic Blend - 06/06/2019 12:00:00 AM EST active 1 cap eCW1 ([facility]) 33 gauge 06/03/2019 12:00:00 AM EST misc [...] BEDTIME SO LD: 10/03/2019 [facility] 33 [facility] 06/03/2019 12:00:00 AM EST misc 100 USE TO TEST BLOOD SUGAR BEFORE MEALS AND AT BEDTIME USE TO TEST BLOOD SUGAR BEFORE MEALS AND AT BEDTIME SO LD: 06/03/2019 [facility] Lancets 06/01/2019 03:57:38 PM EST active [facility] Lancets 06/01/2019 03:57:38 PM EST active [facility] Lancets (Onetouch Delica Lancets) [address] [place] [address] 2018 03:57:38 PM EST active [facility] Lancets (Onetouch Delica Lancets) [address] [place] [address] 2018 03:57:38 PM EST active [facility] Lancets (Onetouch Delica Lancets) [address] [place] [address] 2018 03:57:38 PM EST active [facility] Lancets (Onetouch Delica Lancets) [address] [place] [address] 2018 03:57:38 PM EST active [facility] Lancets (Onetouch Delica Lancets) [address] [place] [address] 2018 03:57:38 PM EST active [facility] Lancets 06/01/2019 03:57:38 PM EST active [facility] Lancets 06/01/2019 03:57:38 PM EST active [facility] Lancets (Onetouch Delica Lancets) [address] [place] [address] 2018 03:57:38 PM EST active [facility] 4 mg 05/31/2019 12:00:00 AM EST tablet [...] 05/04/2019 02:45:47 PM EDT 50 MG completed [facility] Sertraline 50 MG Oral Tablet Sertraline 05/04/2019 02:45:47 PM EDT 50 MG completed [facility] Sertraline 50 MG Oral Tablet Sertraline 05/04/2019 02:45:47 PM EDT 50 MG completed [facility] Sertraline 50 MG Oral Tablet Sertraline 05/04/2019 02:45:47 PM EDT 50 MG completed [facility] Sertraline 50 MG Oral Tablet Sertraline 05/04/2019 02:45:47 PM EDT 50 MG completed [facility] Sertraline 50 MG Oral Tablet Sertraline 05/04/2019 02:45:47 PM EDT 50 MG completed [facility] Sertraline 50 MG Oral Tablet Sertraline 05/04/2019 02:45:47 PM EDT 50 MG completed [facility] Sertraline 50 MG Oral Tablet Sertraline 05/04/2019 02:45:47 PM EDT 50 MG completed [facility] Sertraline 50 MG Oral Tablet Sertraline 05/04/2019 02:45:47 PM EDT 50 MG completed [facility] Sertraline 50 MG Oral Tablet Sertraline 05/04/2019 02:45:47 PM EDT 50 MG completed [facility] Azithromycin 250 MG Oral Tablet Azithromycin 05/04/2019 01:58:56 PM EDT 250 MG completed [facility] Azithromycin 250 MG Oral Tablet Azithromycin (Zithroma x) 250 mg tablet Azithromycin (Zithromax) 250 mg tablet 05/04/2019 01:58:56 PM EDT 250 MG completed [facility] Azithromycin 250 MG Oral Tablet Azithromycin (Zithroma x) 250 mg tablet Azithromycin (Zithromax) 250 mg tablet 05/04/2019 01:58:56 PM EDT 250 MG completed [facility] Azithromycin 250 MG Oral Tablet Azithromycin (Zithroma x) 250 mg tablet Azithromycin (Zithromax) 250 mg tablet 05/04/2019 01:58:56 PM EDT 250 MG completed [facility] Azithromycin 250 MG Oral Tablet Azithromycin (Zithroma x) 250 mg tablet Azithromycin (Zithromax) 250 mg tablet 05/04/2019 01:58:56 PM EDT 250 MG completed [facility] Azithromycin 250 MG Oral Tablet Azithromycin 05/04/2019 01:58:56 PM EDT 250 MG completed [facility] Azithromycin 250 MG Oral Tablet Azithromycin 05/04/2019 01:58:56 PM EDT 250 MG completed [facility] Azithromycin 250 MG Oral Tablet Azithromycin (Zithroma x) 250 mg tablet Azithromycin (Zithromax) 250 mg tablet 05/04/2019 01:58:56 PM EDT 250 MG completed [facility] Azithromycin 250 MG Oral Tablet Azithromycin 05/04/2019 01:58:56 PM EDT 250 MG completed [facility] Azithromycin 250 MG Oral Tablet Azithromycin (Zithroma x) 250 mg tablet Azithromycin (Zithromax) 250 mg tablet 05/04/2019 01:58:56 PM EDT 250 MG completed [facility] 300 mg 05/04/2019 12:00:00 AM EDT [...] 03:27:53 PM EDT 1 UNIT co mpleted [facility] 3 ML Insulin Lispro 100 UNT/ML Pen Injec tor Insulin Lispro (Humalog Kwikpen Insulin) 100 unit/mL insulin pen Insulin Lispro (Humalog Kwikpen Insulin) 100 unit/mL insulin pen 04/13/2019 03:27:53 PM EDT 1 UNIT co mpleted [facility] 3 ML Insulin Lispro 100 UNT/ML Pen Injector Insulin Lispro 04/13/2019 03:27:53 PM EDT 1 UNIT completed [facility] 3 ML Insulin Lispro 100 UNT/ML Pen Injec tor Insulin Lispro (Humalog Kwikpen Insulin) 100 unit/mL insulin pen Insulin Lispro (Humalog Kwikpen Insulin) 100 unit/mL insulin pen 04/13/2019 03:27:53 PM EDT 1 UNIT co mpleted [facility] 3 ML Insulin Lispro 100 UNT/ML Pen Injec tor Insulin Lispro (Humalog Kwikpen Insulin) 100 unit/mL insulin pen Insulin Lispro (Humalog Kwikpen Insulin) 100 unit/mL insulin pen 04/13/2019 03:27:53 PM EDT 1 UNIT co mpleted [facility] 3 ML Insulin Lispro 100 UNT/ML Pen Injector Insulin Lispro 04/13/2019 03:27:53 PM EDT 1 UNIT [facility] [facility] 3 ML Insulin Lispro 100 UNT/ML Pen Injec tor Insulin Lispro (Humalog Kwikpen Insulin) 100 unit/mL insulin pen Insulin Lispro (Humalog Kwikpen Insulin) 100 unit/mL insulin pen 04/13/2019 03:27:53 PM EDT 1 UNIT co [facility] 3 ML Insulin Lispro 100 UNT/ML Pen Injec tor Insulin Lispro (Humalog Kwikpen Insulin) 100 unit/mL insulin pen Insulin Lispro (Humalog Kwikpen Insulin) 100 unit/mL insulin pen 04/13/2019 03:27:53 PM EDT 1 UNIT co [facility] 0.5 mg/2 mL 03/20/2019 12:00:00 AM EDT [...] Sugar Diagnostic 01/26/2019 05:37:57 PM EDT completed [facility] Blood Sugar Diagnostic (Onetouch Verio Test Strips) strip 01/26/2019 05:37:57 PM EDT completed [facility] Blood Sugar Diagnostic 01/26/2019 05:37:57 PM EDT completed [facility] Blood Sugar Diagnostic 01/26/2019 05:37:57 PM EDT completed [facility] Blood Sugar Diagnostic (Onetouch Verio Test Strips) strip 01/26/2019 05:37:57 PM EDT completed [facility] Blood Sugar Diagnostic (Onetouch Verio Test Strips) strip 01/26/2019 05:37:57 PM EDT completed [facility] Blood Sugar Diagnostic (Onetouch Verio Test Strips) strip 01/26/2019 05:37:57 PM EDT completed [facility] Blood Sugar Diagnostic (Onetouch Verio Test Strips) strip 01/26/2019 05:37:57 PM EDT completed [facility] Blood Sugar Diagnostic 01/26/2019 05:37:57 PM EDT completed [facility] Blood Sugar Diagnostic (Onetouch Verio Test Strips) strip 01/26/2019 05:37:57 PM EDT completed [facility] 40 mg 01/26/2019 12:00:00 AM EDT tablet 30 TAKE ONE TABLET BY MOUTH EVERY DAY TAKE ONE TABLET BY MOUTH EVERY DAY SOLD: 06/24/2019 [facility] Insulin Glargine Insulin Glargine 01/19/2019 01:29:26 PM EDT 60 UNIT completed [facility] Insulin Glargine Insulin Glargine (Basag lar Kwikpen U-100 Insulin) 100 unit/mL (3 mL) insulin pen Insulin Glargine (Basaglar Kwikpen U-100 Insulin) 100 unit/mL (3 mL) insulin pen 01/19/2019 01:29:26 PM EDT 60 UNIT c ompleted [facility] Insulin Glargine Insulin Glargine (Basag lar Kwikpen U-100 Insulin) 100 unit/mL (3 mL) insulin pen Insulin Glargine (Basaglar Kwikpen U-100 Insulin) 100 unit/mL (3 mL) insulin pen 01/19/2019 01:29:26 PM EDT 60 UNIT c ompleted [facility] Insulin Glargine Insulin Glargine (Basag lar Kwikpen U-100 Insulin) 100 unit/mL (3 mL) insulin pen Insulin Glargine (Basaglar Kwikpen U-100 Insulin) 100 unit/mL (3 mL) insulin pen 01/19/2019 01:29:26 PM [facility] Insulin Glargine (Basag lar Kwikpen U-100 Insulin) 100 unit/mL (3 mL) insulin pen Insulin Glargine (Basaglar Kwikpen U-100 Insulin) 100 unit/mL (3 mL) insulin pen 01/19/2019 01:29:26 PM EDT [facility] Insulin Glargine Insulin Glargine 01/19/2019 01:29:26 PM EDT 60 UNIT completed [facility] Insulin Glargine Insulin Glargine (Basag lar Kwikpen U-100 Insulin) 100 unit/mL (3 mL) insulin pen Insulin Glargine (Basaglar Kwikpen U-100 Insulin) 100 unit/mL (3 mL) insulin pen 01/19/2019 01:29:26 PM EDT 60 UNIT c ompleted [facility] Insulin Glargine Insulin Glargine (Basag lar Kwikpen U-100 Insulin) 100 unit/mL (3 mL) insulin pen Insulin Glargine (Basaglar Kwikpen U-100 Insulin) 100 unit/mL (3 mL) insulin pen 01/19/2019 01:29:26 PM ED[facility] 40 MG Delayed Release Oral Capsule Esomep razole Magnesium Esomeprazole Magnesium 01/19/2019 01:25:55 PM EDT 40 MG completed [facility] Esomeprazole 40 MG Delayed Release Oral Capsule Esomeprazole Magnesium (Nexium) 40 mg capsule,delayed release(DR/EC) Esomeprazole Magnesium (Nexium) 40 mg capsule,delayed release(DR/EC) 01/19/2019 01:25:55 PM EDT 40 MG completed [facility] Esomeprazole 40 MG Delayed Release Oral Capsule Esomeprazole Magnesium (Nexium) 40 mg capsule,delayed release(DR/EC) Esomeprazole Magnesium (Nexium) 40 mg capsule,delayed release(DR/EC) 01/19/2019 01:25:55 PM EDT 40 MG completed [facility] Esomeprazole 40 MG Delayed Release Oral Capsule Esomep razole Magnesium Esomeprazole Magnesium 01/19/2019 01:25:55 PM EDT 40 MG completed [facility] Esomeprazole 40 MG Delayed Release Oral Capsule Esomeprazole Magnesium (Nexium) 40 mg capsule,delayed release(DR/EC) Esomeprazole Magnesium (Nexium) 40 mg capsule,delayed release(DR/EC) 01/19/2019 01:25:55 PM EDT 40 MG completed [facility] Esomeprazole 40 MG Delayed Release Oral Capsule Esomeprazole Magnesium (Nexium) 40 mg capsule,delayed release(DR/EC) Esomeprazole Magnesium (Nexium) 40 mg capsule,delayed release(DR/EC) 01/19/2019 01:25:55 PM EDT 40 MG completed [facility] Esomeprazole 40 MG Delayed Release Oral Capsule Esomeprazole Magnesium (Nexium) 40 mg capsule,delayed release(DR/EC) Esomeprazole Magnesium (Nexium) 40 mg capsule,delayed release(DR/EC) 01/19/2019 01:25:55 PM EDT 40 MG completed [facility] Esomeprazole 40 MG Delayed Release Oral Capsule Esomep razole Magnesium Esomeprazole Magnesium 01/19/2019 01:25:55 PM EDT 40 MG completed [facility] Esomeprazole 40 MG Delayed Release Oral Capsule Esomep razole Magnesium Esomeprazole Magnesium 01/19/2019 01:25:55 PM EDT 40 MG completed [facility] Esomeprazole 40 MG Delayed Release Oral Capsule Esomeprazole Magnesium (Nexium) 40 mg capsule,delayed release(DR/EC) Esomeprazole Magnesium (Nexium) 40 mg capsule,delayed release(DR/EC) 01/19/2019 01:25:55 PM EDT 40 MG completed [facility] 2.5 mg 01/14/2019 12:00:00 AM EDT tablet [...] 01/13/2019 10:00:04 PM EDT 300 MG completed [facility] Ranitidine 150 MG Oral Tablet Ranitidine Hcl Ranitidine Hcl 01/13/2019 10:00:04 PM EDT 300 MG completed [facility] Ranitidine 150 MG Oral Tablet Ranitidine Hcl Ranitidine Hcl 01/13/2019 10:00:04 PM EDT 300 MG completed [facility] Ranitidine 150 MG Oral Tablet Ranitidine Hcl Ranitidine Hcl 01/13/2019 10:00:04 PM EDT 300 MG completed [facility] Ranitidine 150 MG Oral Tablet Ranitidine Hcl Ranitidine Hcl 01/13/2019 10:00:04 PM EDT 300 MG completed [facility] Ranitidine 150 MG Oral Tablet Ranitidine Hcl Ranitidine Hcl 01/13/2019 10:00:04 PM EDT 300 MG completed [facility] Ranitidine 150 MG Oral Tablet Ranitidine Hcl Ranitidine Hcl 01/13/2019 10:00:04 PM EDT 300 MG completed [facility] Ranitidine 150 MG Oral Tablet Ranitidine Hcl Ranitidine Hcl 01/13/2019 10:00:04 PM EDT 300 MG completed [facility] Ranitidine 150 MG Oral Tablet Ranitidine Hcl Ranitidine Hcl 01/13/2019 10:00:04 PM EDT 300 MG completed [facility] Ranitidine 150 MG Oral Tablet Ranitidine Hcl Ranitidine Hcl 01/13/2019 10:00:04 PM EDT 300 MG completed [facility] Ergocalciferol 82371 UNT Oral Capsule Er gocalciferol (Vitamin D2) (Vitamin D2) 50,000 unit capsule Ergocalciferol (Vitamin D2) (Vitamin D2) 50,000 unit capsule 01/13/2019 09:56:37 PM EDT 98771 UNIT completed [facility] Ergocalciferol 28871 UNT Oral Capsule Er gocalciferol (Vitamin D2) (Vitamin D2) 50,000 unit capsule Ergocalciferol (Vitamin D2) (Vitamin D2) 50,000 unit capsule 01/13/2019 09:56:37 PM EDT 96090 UNIT completed [facility] Ergocalciferol 33285 UNT Oral Capsule Er gocalciferol (Vitamin D2) (Vitamin D2) 50,000 unit capsule Ergocalciferol (Vitamin D2) (Vitamin D2) 50,000 unit capsule 01/13/2019 09:56:37 PM EDT 23923 UNIT completed [facility] Ergocalciferol 21401 UNT Oral Capsule Ergocalciferol ( Vitamin D2) Ergocalciferol (Vitamin D2) 01/13/2019 09:56:37 PM EDT 33766 [facility] Ergocalciferol 18633 UNT Oral Capsule Ergocalciferol ( Vitamin D2) Ergocalciferol (Vitamin D2) 01/13/2019 09:56:37 PM EDT 36975 [facility] Ergocalciferol 47987 UNT Oral Capsule Er gocalciferol (Vitamin D2) (Vitamin D2) 50,000 unit capsule Ergocalciferol (Vitamin D2) (Vitamin D2) 50,000 unit capsule 01/13/2019 09:56:37 PM EDT 22328 UNIT completed [facility] Ergocalciferol 71433 UNT Oral Capsule Ergocalciferol ( Vitamin D2) Ergocalciferol (Vitamin D2) 01/13/2019 09:56:37 PM EDT 40276 [facility] Ergocalciferol 16189 UNT Oral Capsule Er gocalciferol (Vitamin D2) (Vitamin D2) 50,000 unit capsule Ergocalciferol (Vitamin D2) (Vitamin D2) 50,000 unit capsule 01/13/2019 09:56:37 PM EDT 94695 UNIT completed [facility] Ergocalciferol 36938 UNT Oral Capsule Er gocalciferol (Vitamin D2) (Vitamin D2) 50,000 unit capsule Ergocalciferol (Vitamin D2) (Vitamin D2) 50,000 unit capsule 01/13/2019 09:56:37 PM EDT 20833 UNIT completed [facility] Ergocalciferol 57740 UNT Oral Capsule Ergocalciferol ( Vitamin D2) Ergocalciferol (Vitamin D2) 01/13/2019 09:56:37 PM EDT 77655 UNIT comp [facility] 60 mg 01/07/2019 12:00:00 AM EDT tablet 120 TAKE ONE TABLET BY MOUTH FOUR TIMES A DAY TAKE ONE TABLET BY MOUTH FOUR TIMES A DAY SOLD: 05/31/2019 [facility] 60 mg 01/07/2019 12:00:00 AM [...] 07:2 8:25 PM EDT 1 MG completed [facility] fluticasone furoate 0.2 MG/ACTUAT / kyra nterol 0.025 MG/ACTUAT Dry Powder Inhaler Fluticasone Furoate-Vilanterol (Breo Ellipta) 1 EACH blister with device Fluticasone Furoate-Vilanterol (Breo Ellipta) 1 EACH b cesar with device 12/26/2018 07:28:25 PM EDT 1 EACH completed [facility] Lancets ([facility] Lancets) 33 gauge misc 2018 07:28:25 PM EDT completed [facility] fluticasone furoate 0.2 MG/ACTUAT / kyra nterol 0.025 MG/ACTUAT Dry Powder Inhaler Fluticasone Furoate-Vilanterol Fluticasone Furoate-Vilanterol 12/26/2018 07:28:25 PM EDT 1 EACH completed [facility] Lancets 12/26/2018 07:28:25 PM EDT completed [facility] ropinirole 1 MG Oral Tablet Ropinirole Ropinirole 12/26/2018 07:2 8:25 PM EDT 1 MG completed [facility] atorvastatin 40 MG Oral Tablet Atorvastatin Atorvastatin 12/26/2018 07:28:25 PM EDT 40 MG completed [facility] Alprazolam 0.25 MG Oral Tablet [Xanax] Alprazolam (Nir ax) 0.25 MG tablet Alprazolam (Xanax) 0.25 MG tablet 12/26/2018 07:28:25 PM EDT 0.25 MG completed [facility] ropinirole 1 MG Oral Tablet Ropinirole Ropinirole 12/26/2018 07:2 8:25 PM EDT 1 MG completed [facility] Loratadine 10 MG Oral Tablet Loratadine 12/26/2018 07:28:25 PM EDT 10 MG completed [facility] montelukast 10 MG Oral Tablet Montelukast Montelukast 12/26/2018 07:28:25 PM EDT 10 MG completed [facility] Enalapril Maleate 2.5 MG Oral Tablet Enalapril Maleate 07:28:25 PM EDT 2.5 MG completed [facility] Loratadine 10 MG Oral Tablet Loratadine 12/26/2018 07:28:25 PM EDT 10 MG completed [facility] Loratadine 10 MG Oral Tablet Loratadine 12/26/2018 07:28:25 PM EDT 10 MG completed [facility] fluticasone furoate 0.2 MG/ACTUAT / kyra nterol 0.025 MG/ACTUAT Dry Powder Inhaler Fluticasone Furoate-Vilanterol (Breo Ellipta) 1 EACH blister with device Fluticasone Furoate-Vilanterol (Breo Ellipta) 1 EACH b cesar with device 12/26/2018 07:28:25 PM EDT 1 EACH completed [facility] Lancets ([employer]se [employer] Lancets) 33 gauge misc 2018 07:28:25 PM EDT completed [facility] ropinirole 1 MG Oral Tablet Ropinirole Ropinirole 12/26/2018 07:2 8:25 PM EDT 1 MG completed [facility] Lancets 12/26/2018 07:28:25 PM EDT completed [facility] fluticasone furoate 0.2 MG/ACTUAT / kyra nterol 0.025 MG/ACTUAT Dry Powder Inhaler Fluticasone Furoate-Vilanterol Fluticasone Furoate-Vilanterol 12/26/2018 07:28:25 PM EDT 1 EACH completed [facility] Alprazolam 0.25 MG Oral Tablet [Xanax] Alprazolam (Nir ax) 0.25 MG tablet Alprazolam (Xanax) 0.25 MG tablet 12/26/2018 07:28:25 PM EDT 0.25 MG completed [facility] Alprazolam 0.25 MG Oral Tablet [Xanax] Alprazolam (Nir ax) 0.25 MG tablet Alprazolam (Xanax) 0.25 MG tablet 12/26/2018 07:28:25 PM EDT 0.25 MG completed [facility] Lancets ([facility] Lancets) 33 [facility] 2018 07:28:25 PM EDT completed [facility] [address] [place] [address] 2018 07:28:25 PM EDT completed [facility] atorvastatin 40 MG Oral Tablet Atorvastatin Atorvastatin 12/26/2018 07:28:25 PM EDT 40 MG completed [facility] Loratadine 10 MG Oral Tablet Loratadine 12/26/2018 07:28:25 PM EDT 10 MG completed [facility] Enalapril Maleate 2.5 MG Oral Tablet Enalapril Maleate 07:28:25 PM EDT 2.5 MG completed [facility] montelukast 10 MG Oral Tablet Montelukast Montelukast 12/26/2018 07:28:25 PM EDT 10 MG completed [facility] ropinirole 1 MG Oral Tablet Ropinirole Ropinirole 12/26/2018 07:2 8:25 PM EDT 1 MG completed [facility] atorvastatin 40 MG Oral Tablet Atorvastatin Atorvastatin 12/26/2018 07:28:25 PM EDT 40 MG completed [facility] fluticasone furoate 0.2 MG/ACTUAT / kyra nterol 0.025 MG/ACTUAT Dry Powder Inhaler Fluticasone Furoate-Vilanterol (Breo Ellipta) 1 EACH blister with device Fluticasone Furoate-Vilanterol (Breo Ellipta) 1 EACH b cesar with device 12/26/2018 07:28:25 PM EDT 1 EACH completed [facility] montelukast 10 MG Oral Tablet Montelukast Montelukast 12/26/2018 07:28:25 PM EDT 10 MG completed [facility] Loratadine 10 MG Oral Tablet Loratadine 12/26/2018 07:28:25 PM EDT 10 MG completed [facility] montelukast 10 MG Oral Tablet Montelukast Montelukast 12/26/2018 07:28:25 PM EDT 10 MG completed [facility] Enalapril Maleate 2.5 MG Oral Tablet Enalapril Maleate 07:28:25 PM EDT 2.5 MG completed [facility] Loratadine 10 MG Oral Tablet Loratadine 12/26/2018 07:28:25 PM EDT 10 MG completed [facility] ropinirole 1 MG Oral Tablet Ropinirole Ropinirole 12/26/2018 07:2 8:25 PM EDT 1 MG completed [facility] Enalapril Maleate 2.5 MG Oral Tablet Enalapril Maleate 07:28:25 PM EDT 2.5 MG completed [facility] fluticasone furoate 0.2 MG/ACTUAT / kyra nterol 0.025 MG/ACTUAT Dry Powder Inhaler Fluticasone Furoate-Vilanterol (Breo Ellipta) 1 EACH blister with device Fluticasone Furoate-Vilanterol (Breo Ellipta) 1 EACH b cesar with device 12/26/2018 07:28:25 PM EDT 1 EACH completed [facility] Enalapril Maleate 2.5 MG Oral Tablet Enalapril Maleate 07:28:25 PM EDT 2.5 MG completed [facility] Loratadine 10 MG Oral Tablet Loratadine 12/26/2018 07:28:25 PM EDT 10 MG completed [facility] montelukast 10 MG Oral Tablet Montelukast Montelukast 12/26/2018 07:28:25 PM EDT 10 MG completed [facility] Lancets (Jesse Pro Lancets) 33 gauge misc 2018 07:28:25 PM EDT completed [facility] atorvastatin 40 MG Oral Tablet Atorvastatin Atorvastatin 12/26/2018 07:28:25 PM EDT 40 MG completed [facility] montelukast 10 MG Oral Tablet Montelukast Montelukast 12/26/2018 07:28:25 PM EDT 10 MG completed [facility] Lancets 12/26/2018 07:28:25 PM EDT completed [facility] ropinirole 1 MG Oral Tablet Ropinirole Ropinirole 12/26/2018 07:2 8:25 PM EDT 1 MG completed [facility] Alprazolam 0.25 MG Oral Tablet [Xanax] Alprazolam 12/26/2018 07:2 8:25 PM EDT 0.25 MG completed [facility] ropinirole 1 MG Oral Tablet Ropinirole Ropinirole 12/26/2018 07:2 8:25 PM EDT 1 MG completed [facility] Enalapril Maleate 2.5 MG Oral Tablet Enalapril Maleate 07:28:25 PM EDT 2.5 MG completed [facility] Loratadine 10 MG Oral Tablet Loratadine 12/26/2018 07:28:25 PM EDT 10 MG completed [facility] fluticasone furoate 0.2 MG/ACTUAT / kyra nterol 0.025 MG/ACTUAT Dry Powder Inhaler Fluticasone Furoate-Vilanterol (Breo Ellipta) 1 EACH blister with device Fluticasone Furoate-Vilanterol (Breo Ellipta) 1 EACH b cesar with device 12/26/2018 07:28:25 PM EDT 1 EACH completed [facility] Alprazolam 0.25 MG Oral Tablet [Xanax] Alprazolam (Nir ax) 0.25 MG tablet Alprazolam (Xanax) 0.25 MG tablet 12/26/2018 07:28:25 PM EDT 0.25 MG completed [facility] Alprazolam 0.25 MG Oral Tablet [Xanax] Alprazolam 12/26/2018 07:2 8:25 PM EDT 0.25 MG completed [facility] Enalapril Maleate 2.5 MG Oral Tablet Enalapril Maleate 07:28:25 PM EDT 2.5 MG completed [facility] Enalapril Maleate 2.5 MG Oral Tablet Enalapril Maleate 07:28:25 PM EDT 2.5 MG completed [facility] Lancets 12/26/2018 07:28:25 PM EDT completed [facility] montelukast 10 MG Oral Tablet Montelukast Montelukast 12/26/2018 07:28:25 PM EDT 10 MG completed [facility] atorvastatin 40 MG Oral Tablet Atorvastatin Atorvastatin 12/26/2018 07:28:25 PM EDT 40 MG completed [facility] fluticasone furoate 0.2 MG/ACTUAT / kyra nterol 0.025 MG/ACTUAT Dry Powder Inhaler Fluticasone Furoate-Vilanterol (Breo Ellipta) 1 EACH blister with device Fluticasone Furoate-Vilanterol (Breo Ellipta) 1 EACH b cesar with device 12/26/2018 07:28:25 PM EDT 1 EACH completed [facility] atorvastatin 40 MG Oral Tablet Atorvastatin Atorvastatin 12/26/2018 07:28:25 PM EDT 40 MG completed [facility] ropinirole 1 MG Oral Tablet Ropinirole Ropinirole 12/26/2018 07:2 8:25 PM EDT 1 MG completed [facility] atorvastatin 40 MG Oral Tablet Atorvastatin Atorvastatin 12/26/2018 07:28:25 PM EDT 40 MG completed [facility] fluticasone furoate 0.2 MG/ACTUAT / kyra nterol 0.025 MG/ACTUAT Dry Powder Inhaler Fluticasone Furoate-Vilanterol Fluticasone Furoate-Vilanterol 12/26/2018 07:28:25 PM EDT 1 EACH completed [facility] Enalapril Maleate 2.5 MG Oral Tablet Enalapril Maleate 07:28:25 PM EDT 2.5 MG completed [facility] Lancets (Jesse Pro Lancets) 33 gauge misc 2018 07:28:25 PM EDT completed [facility] atorvastatin 40 MG Oral Tablet Atorvastatin Atorvastatin 12/26/2018 07:28:25 PM EDT 40 MG completed [facility] Alprazolam 0.25 MG Oral Tablet [Xanax] Alprazolam (Nir ax) 0.25 MG tablet Alprazolam (Xanax) 0.25 MG tablet 12/26/2018 07:28:25 PM EDT 0.25 MG completed [facility] Alprazolam 0.25 MG Oral Tablet [Xanax] Alprazolam (Nir ax) 0.25 MG tablet Alprazolam (Xanax) 0.25 MG tablet 12/26/2018 07:28:25 PM EDT 0.25 MG completed [facility] montelukast 10 MG Oral Tablet Montelukast Montelukast 12/26/2018 07:28:25 PM EDT 10 MG completed [facility] Enalapril Maleate 2.5 MG Oral Tablet Enalapril Maleate 07:28:25 PM EDT 2.5 MG completed [facility] 0.5 mg-3 mg(2.5 mg base)/3 mL 11/14/2018 12:00:0 0 AM EDT solution for nebulization 360 USE 1 VIAL VIA NEBULIZER FOUR TI MES A DAY USE 1 VIAL VIA NEBULIZER FOUR TIMES A DAY SOLD: 06/01/2019 [facility] gabapentin 300 MG Oral Capsule Gabapentin Gabapentin 2018 11:21:35 PM EDT 300 MG completed [facility] gabapentin 300 MG Oral Capsule Gabapentin Gabapentin 2018 11:21:35 PM EDT 300 MG completed [facility] gabapentin 300 MG Oral Capsule Gabapentin Gabapentin 2018 11:21:35 PM EDT 300 MG completed [facility] gabapentin 300 MG Oral Capsule Gabapentin Gabapentin 2018 11:21:35 PM EDT 300 MG completed [facility] gabapentin 300 MG Oral Capsule Gabapentin Gabapentin 2018 11:21:35 PM EDT 300 MG completed [facility] gabapentin 300 MG Oral Capsule Gabapentin Gabapentin 2018 11:21:35 PM EDT 300 MG completed [facility] gabapentin 300 MG Oral Capsule Gabapentin Gabapentin 2018 11:21:35 PM EDT 300 MG completed [facility] gabapentin 300 MG Oral Capsule Gabapentin Gabapentin 2018 11:21:35 PM EDT 300 MG completed [facility] gabapentin 300 MG Oral Capsule Gabapentin Gabapentin 2018 11:21:35 PM EDT 300 MG completed [facility] gabapentin 300 MG Oral Capsule Gabapentin Gabapentin 2018 11:21:35 PM EDT 300 MG completed [facility] 10 mg 11/05/2018 12:00:00 AM EDT tablet 30 TAKE ONE TABLET BY MOUTH EVERY DAY TAKE ONE TABLET BY MOUTH EVERY DAY SOLD: 06/24/2019 [facility] Epinephrine Epinephrine 06/27/2017 03:59:00 PM EST 0.3 MG completed [facility] Epinephrine Epinephrine 06/27/2017 03:59:00 PM EST 0.3 MG completed [facility] Epinephrine Epinephrine (Epipen) 0.3 MG/0.3 ML auto-in jector Epinephrine (Epipen) 0.3 MG/0.3 ML auto-injector 06/27/2017 03:59:00 PM EST 0.3 MG completed [facility] Epinephrine Epinephrine (Epipen) 0.3 MG/0.3 ML auto-in jector Epinephrine (Epipen) 0.3 MG/0.3 ML auto-injector 06/27/2017 03:59:00 PM EST 0.3 MG completed [facility] Epinephrine Epinephrine (Epipen) 0.3 MG/0.3 ML auto-in jector Epinephrine (Epipen) 0.3 MG/0.3 ML auto-injector 06/27/2017 03:59:00 PM EST 0.3 MG completed [facility] Epinephrine Epinephrine (Epipen) 0.3 MG/0.3 ML auto-in jector Epinephrine (Epipen) 0.3 MG/0.3 ML auto-injector 06/27/2017 03:59:00 PM EST 0.3 MG completed [facility] Epinephrine Epinephrine (Epipen) 0.3 MG/0.3 ML auto-in jector Epinephrine (Epipen) 0.3 MG/0.3 ML auto-injector 06/27/2017 03:59:00 PM EST 0.3 MG completed [facility] Epinephrine Epinephrine (Epipen) 0.3 MG/0.3 ML auto-in jector Epinephrine (Epipen) 0.3 MG/0.3 ML auto-injector 06/27/2017 03:59:00 PM EST 0.3 MG completed [facility] Insurance Providers Payer name Policy type / Coverage type Policy ID Covered libertarian ID Covered libertarian's relationship to collier Policy Collier Plan Information [employer] MCDHMO [id number] SP [id number] [facility] COMMUNITY PLAN [id number] [employer] COMM[employer]ITY [employer]AN XIX [id number] [facility]) O [id number] [employer] COMMUNITY PLAN MCDHMO [id number] SP [id number] [employer] COMM[employer]ITY [employer]AN MCDHMO [id number] SP [id number] [employer] COMM[employer]AN MCDHMO [id number] SP [id number] [facility] MEDICAID [id number] Self [id number] [place] Medigap Part B [id number] Self [id number] [facility] Health Maintenance Organization (HMO) [id number] Self [id number] [facility] Medigap Part B [id number] Self [id number] [facility] [id number] Patient [id number] [facility] COMM[facility]ITY UNAVAILABLE Patient UNAV AILABLE MEDICAID [id number] Patient [id number] [facility] [address] [id number] Preferred Provider Organization (PPO) [id number] [facility] [address] [id number] Preferred Provider Organization (PPO) [id number] [facility] Other 0 Self 0 [place] Medig[place] Part [place] [id number] Self [id number] [facility] Health Maintenance Organization (HMO) [id number] Self [id number] [facility] [id number] 0 1 [id number] [place] [id number] Self [id number] [facility] Health Maintenance Organization (HMO) [id number] Self [id number] [facility]UN[facility] [id number] 0 1 [id number] [facility] MEDICA[facility] PI PI [facility] MEDICAID [id number] Radha [id number] MEDICAID [id number] Radha [id number] [place] [id number] Self [id number] [facility] Health Maintenance Organization (HMO) [id number] Self [id number] [facility] Medigap Part B [id number] Self [id number] [facility] Community Plan Commercial [id number] Self [id number] [place] [id number] Self [id number] [facility] Health Maintenance Organization (HMO) [id number] Self [id number] [place] [id number] Self [id number] [facility] Health Maintenance Organization (HMO) [id number] Self [id number] [facility] Medicaid Medicaid [id number] Self [id number] [place] Part [place] [id number] Self [id number] [facility] Health Maintenance Organization (HMO) [id number] Self [id number] [place] [id number] Self [id number] [facility] Health Maintenance Organization (HMO) [id number] Self [id number] Ghi FHP-(DO Not Use) Medigap Part B [id number] Self [id number] [facility] Community Plan Commercial [id number] Self [id number] [facility] Hmo Commercial [id number] Self [id number] Ghi FHP-(DO Not Use) Medigap Part B [id number] Self [id number] [facility] Community Plan Commercial [id number] Self [id number] [place] [id number] Self [id number] Ghi FHP-(DO Not Use) Medigap Part B [id number] Self [id number] Ghi FHP-(DO Not Use) Medigap Part B [id number] Self [id number] Ghi FHP-(DO Not Use) Medigap Part B [id number] Self [id number] [facility] [id number] SP [id number] [facility] MCDO [id number] SP [id number] [facility] Community Plan Commercial Self [facility]) O [id number] S [id number] [facility] [id number] MEDICAID [id number] SP [id number] Medicaid Dental P [id number] S [id number] Sliding Fee Scale S [id number] S [id number] Problems, Conditions, and Diagnoses Code Display Name Description Problem Type Effective Dates Data Source(s) L30.4 90439558 Intertrigo Problem 01/10/2020 12:00:00 AM ED T eCW1 ([facility]) E11.9 909819625 Type 2 diabetes mellitus without complica tions Problem 12/17/2019 12:00:00 AM EDT eCW1 ([facility]) Z79.4 630562391 intermediate (current) use of insulin Proble m 12/17/2019 12:00:00 AM EDT eCW1 ([facility]) A49.8 125116277 Infection due to Enterobacter aerogenes P roblem 12/17/2019 12:00:00 AM EDT eCW1 ([facility]) 72959438 Diplopia Diplopia Problem 12/06/2019 12:00:00 AM ED T MEDENT ([facility]) J45.41 924848600 Moderate persistent asthma with exacerbat ion Problem 11/20/2019 12:00:00 AM EDT eCW1 ([facility]) J45.41 968972898 Moderate persistent asthma with exacerbat ion Problem 11/20/2019 12:00:00 AM EDT eCW1 ([facility]) 28792551 Restless legs Restless legs Problem 06/20/2019 12:00:00 AM EST MEDENT ([facility]) 79899659 Hypersomnia Hypersomnia Problem 06/20/2019 12:00:00 AM EST MEDENT ([facility]) 62689850 Obstructive sleep apnea syndrome Obstructive sle ep apnea syndrome Problem 06/20/2019 12:00:00 AM EST MEDENT ([facility]) H268 Other specified cataract Other specified cataract Diag nosis 04/30/2020 08:30:00 AM EDT [facility] Surgeries/Procedures Procedure Description Date Indications Data Source(s) Viral antigen assay (procedure) 07/24/2020 12:00:00 AM [facility] Viral antigen assay (procedure) 07/24/2020 12:00:00 AM [facility] Measurement of occult blood in stool specimen using immunoas say (procedure) 04/16/2020 12:00:00 AM [facility] Measurement of occult blood in stool specimen using immunoas say (procedure) 04/16/2020 [facility] of occult blood in stool specimen using immunoas say (procedure) 04/16/2020 12:00:00 AM [facility] Measurement of occult blood in stool specimen using immunoas say (procedure) 04/16/2020 12:00:00 AM [facility] Radiography of gastrointestinal tract (procedure) 01/31/2020 09:47:00 AM [facility] Radiography of gastrointestinal tract (procedure) 01/31/2020 09:47:00 AM [facility] Radiography of gastrointestinal tract (procedure) 01/31/2020 09:47:00 AM [facility] Radiography of gastrointestinal tract (procedure) 01/31/2020 09:47:00 AM [facility] Radiography of gastrointestinal tract (procedure) 01/31/2020 09:47:00 AM [facility] Radiography of gastrointestinal tract (procedure) 01/31/2020 09:47:00 AM [facility] Ultrasonography of abdomen (procedure) 01/31/2020 09:0 0:00 AM [facility] Ultrasonography of abdomen (procedure) 01/31/2020 09:0 0:00 AM [facility] Ultrasonography of abdomen (procedure) 01/31/2020 09:0 0:00 AM [facility] Ultrasonography of abdomen (procedure) 01/31/2020 09:0 0:00 AM [facility] Ultrasonography of abdomen (procedure) 01/31/2020 09:0 0:00 AM [facility] Ultrasonography of abdomen (procedure) 01/31/2020 09:0 0:00 AM [facility] Bronchospasm Evaluation 12/25/2019 12:00:00 AM EDT MEDENT ([facility], ) Maximum Breathing Capacity, Maximal Voluntary Ventilation 12/25/2019 12:00:00 AM EDT MEDENT ([facility], ) Plethysmography Determination Lung Volumes & Per Airway Resi st 12/25/2019 12:00:00 AM EDT [facility] DIFFUSING CAPACITY 12/25/2019 12:00:00 AM EDT MEDENT ([facility], ) PHYSICIAN TELEPHONE EVALUATION 11-20 MIN 11/08/2019 12 :00:00 AM EDT eCW1 ([facility]) Mycobacteria culture (procedure) 11/03/2019 12:00:[address] [facility] Acid fast stain method (procedure) 11/03/2019 12:00:00 AM [facility] AFB Specimen Processing Tissue 11/03/2019 12:00:00 AM [facility] Mycobacteria culture (procedure) 11/03/2019 12:00:[address] [facility] Acid fast stain method (procedure) 11/03/2019 12:00:00 AM [facility] AFB Specimen Processing Tissue 11/03/2019 12:00:00 AM [facility] Mycobacteria culture (procedure) 11/03/2019 12:00:[address] [facility] Acid fast stain method (procedure) 11/03/2019 12:00:00 AM [facility] AFB Specimen Processing Tissue 11/03/2019 12:00:00 AM [facility] Mycobacteria culture (procedure) 11/03/2019 12:00:[address] [facility] Acid fast stain method (procedure) 11/03/2019 12:00:00 AM [facility] AFB Specimen Processing Tissue 11/03/2019 12:00:00 AM [facility] Mycobacteria culture (procedure) 11/03/2019 12:00:[address] [facility] Acid fast stain method (procedure) 11/03/2019 12:00:00 AM [facility] AFB Specimen Processing Tissue 11/03/2019 12:00:00 AM [facility] Mycobacteria culture (procedure) 11/03/2019 12:00:[address] [facility] Acid fast stain method (procedure) 11/03/2019 12:00:00 AM [facility] AFB Specimen Processing Tissue 11/03/2019 12:00:00 AM [facility] Mycobacteria culture (procedure) 11/03/2019 12:00:00 A Salvatore [facility] Acid fast stain method (procedure) 11/03/2019 12:00:00 AM [facility] AFB Specimen Processing Tissue 11/03/2019 12:00:00 AM [facility] Spirometry 07/30/2019 12:00:00 AM RJ CARLSON ([facility], ) Diagnostic radiography of lumbar spine (procedure) 06/28/2019 12:44:00 PM [facility] Skeletal X-ray of pelvis and hip (procedure) 9 12:44:00 PM [facility] Diagnostic radiography of lumbar spine (procedure) 06/28/2019 12:44:00 PM [facility] Skeletal X-ray of pelvis and hip (procedure) 9 12:44:00 PM [facility] Diagnostic radiography of lumbar spine (procedure) 06/28/2019 12:44:00 PM [facility] Skeletal X-ray of pelvis and hip (procedure) 9 12:44:00 PM [facility] Diagnostic radiography of lumbar spine (procedure) 06/28/2019 12:44:00 PM [facility] Skeletal X-ray of pelvis and hip (procedure) 9 12:44:00 PM [facility] Diagnostic radiography of lumbar spine (procedure) 06/28/2019 12:44:00 PM [facility] Skeletal X-ray of pelvis and hip (procedure) 9 12:44:00 PM [facility] Diagnostic radiography of lumbar spine (procedure) 06/28/2019 12:44:00 PM [facility] Skeletal X-ray of pelvis and hip (procedure) 9 12:44:00 PM [facility] Diagnostic radiography of lumbar spine (procedure) 06/28/2019 12:44:00 PM [facility] Skeletal X-ray of pelvis and hip (procedure) 9 12:44:00 PM [facility] Screening mammography (procedure) 06/01/2019 02:55:00 PM [facility] Screening mammography (procedure) 06/01/2019 02:55:00 PM [facility] Screening mammography (procedure) 06/01/2019 02:55:00 PM [facility] Screening mammography (procedure) 06/01/2019 02:55:00 PM [facility] Screening mammography (procedure) 06/01/2019 02:55:00 PM [facility] Screening mammography (procedure) 06/01/2019 02:55:00 PM [facility] Screening mammography (procedure) 06/01/2019 02:55:00 PM [facility] Screening mammography (procedure) 06/01/2019 02:55:00 PM [facility] Results ID Date Data Source [id number] 07/30/2020 03:17:00 PM [facility] Patient Name: ISIDRA YANEZ : 1960 Sex: F Pt Unit #: [id number] Location:[facility] Provider: Visit Date/Time: 07/30/20 Primary Insurance: [facility] Secondary Insurance: Self Pay ADDENDUM Patient called me back to say she had decided to go to [facility] since all of her specialist work out of [facility] and would be available for consult particularly Dr. Ambriz so she is headed to [facility] for evaluation and possible admission. <Electronically signed by Lindsay Huitron DO> 07/30/20 6706 Intake Intake Visit Reasons: Telemed Visit Nurse Note: patient doing a tele med visit to follow up on her COVID symptoms. patient has the following symptoms; fatigue, cough, and headache. 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 Her sisters [...] is questioning if she should go to [facility]. Review of Systems Const All systems reviewed [...] Ambriz for pulmonary, Dr. Wilkinson for neurology, [place] [facility] for her immunodeficiency Code(s): U07.1 - COVID-19 SNOMED Code(s): 736086184 Category: Medical Plan - Lindsay Chapman DO: [...] which manage her complex medical history in [place] so she wants to check and if the wait is reasonable at [facility] she prefers to go there she is going to call and let me know her final decision. Time spent Total time spent on medical discussion: 12 minutes Coding Level of Care Code Established Pt Telemed Visit (11-20 min) Patient Type Established Medical Decision Making Moderate Complexity Diagnoses COVID-19 U07.1 <Electronically signed by Lindsay Chapman DO> 07/30/20 7160 Name Value Range Interpretation Code Description Data Sarah rce(s) Supporting Document(s) ID Date Data Source [id number] 07/29/2020 10:15:00 AM [facility] Patient Name: ISIDRA YANEZ : 1960 Sex: F Pt Unit #: [id number] Location:[facility] Provider: Visit Date/Time: 07/29/20 Primary Insurance: [facility] Secondary Insurance: Self Pay Intake Intake Visit Reasons: Telemed Visit, covid 19, Asthma exacerbation Skiagrapher Required: No Is patient in pain?: No [...] 500 mg PO QMWF blood sugar diagnostic (StylewhileTouch Verio test strips) Use strips to test [...] QID MDD 4 Lactobacillus acidophilus PO lancets (TrafficCastuch [employer] Lancets) to be used AC and HS [...] and colleagues, with an educational andrew from [employer]. 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 She is still on Zithromax 500mg 3 times a week. She also gets PFTs and sees Dr. Ambriz on a regular basis for management of her asthma. Her sleep apnea is managed by [facility] neurology group Dr. Wilkinson as she [...] rce(s) Supporting Document(s) ID Date Data Source [id number] 07/25/2020 10:09:00 AM [facility] Patient Name: ISIDRA YANEZ : 1960 Sex: F Pt Unit #: [id number] [facility] Provider: Visit Date/Time: 07/24/20 Primary Insurance: [facility] Secondary Insurance: Self Pay Provider Note I [...] Name Value Range Interpretation Code Description Data [facility] rce(s) Supporting Document(s) ID Date Data Source [id number] 07/24/2020 06:41:00 PM EST [facility] Reason for Exam: cough, shortness of mal athReason for Exam:: cough, shortness of breathRESULTS CALLED TO PUBLIC HEALTH (ANITHA VILLATORO) 07-24-20 [id number] result is "BinaxNow Covid-19 Ag negative"BinaxNow Covid-19 Ag is a rapid lateral flowimmunochromatographic immunoassayThis test detects both viable(live) and non-viable, SARS-COVand SARS-COV-2.Positive test results do not differentiate between SARS-COVand XZCF-TGN-5Gfspuokz results , from patients with symptom onset beyondseven days, should be treated as presumptive andconfirmation with a molecular assay, if necessary, forpatient managementIf the differentiation of specific SARS viruses and strainsis needed, additional testing, in consultation with stateand local public health departments, is required.SARS-CoV-2 Ag Resp Ql IA.rapid Name Value Range Interpretation Code Description Data Sarah rce(s) Supporting Document(s) ID Date Data Source [id number] 07/24/2020 04:53:00 PM [facility] Name Value Range Interpretation Code Description Data [facility] Supporting Document(s) SARS-CoV-2 (COVID-19) Ag [Presence] in R espiratory specimen by Rapid immunoassay BinaxNow Covid-19 Ag positive [facility] This lab was ordered by [facility] and reported by [facility]. ID Date Data Source [id number] 07/24/2020 11:37:00 AM [facility] Patient Name: ISIDRA YANEZ : 1960 Sex: F Pt Unit #: [id number] Location:[facility] Provider: Visit Date/Time: 07/24/20 Primary Insurance: [facility] Secondary Insurance: Self Pay Intake Intake Visit Reasons: Telemed Visit Nurse Note: Pt called due to cold/covid sx that started yesterday. Pt has a headache, cough and feels SOB due to the cough. She states that she always feels tired. Pt has a hx of asthma and otherlung issues. Pt has been exposed to a covid positive. Pt has tx today with Mucinex. 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 Coding Level of Care Code Telemed Visit (5-10 min) Diagnoses Cough R05 Wheezes R06.2 Shortness of breath R06.02 Time Spent (min) 10 <Electronically signed by Zara Sparks RAILCAR SWITCHER> 07/24/20 1214 Name Value Range Interpretation Code Description Data Sarah rce(s) Supporting Document(s) ID Date Data Source [id number] 07/24/2020 12:00:00 AM EST [facility] Name Value Range Interpretation Code Description Data Sarah rce(s) Supporting Document(s) SARS-CoV-2 (COVID-19) RNA [Presence] in Respiratory specimen by BONNIE with probe detection Positive for 2019-nCoV [facility] This lab was ordered by [facility] and reported by [facility]. ID Date Data Source [id number] 05/30/2020 03:10:00 PM [facility] Patient Name: ISIDRA YANEZ : 1960 Sex: F Pt Unit #: [id number] [facility] Provider: Visit Date/Time: 05/30/20 Primary Insurance: [facility] Secondary Insurance: Self Pay Intake Intake Visit Reasons: Diabetes Nurse Note: patient s doing a tele med visit for follow up on her diabetes. consent was obtained. patient has eye appt on tuesday with [facility]. last feet exam 02/2019. 11/2018. 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 She follows with [facility] for her immunodeficiency and still takes weekly injections of IVIG. 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 Her asthma has improved. She follows with cardiology group and also follows with [facility] and just had cataract surgery. She follows with me for her anxiety and depression and her diabetes hyperlipidemia and vitamin D deficiency. She also follows with [facility] for her gastroparesis hiatal hernia [...] easy bruising Details: Says she did see installation coordinator down in [place] and he feels her heme positive stool [...] diabetes mellitus with unspecified complications SNOMED Code(s): 51678762 Category: Medical Plan - Lindsay Chapman, DO: Since her last visit she has had no further hypoglycemia. She has been back to see her installation coordinator partly because of her gastroparesis and partly [...] (2) Allergic rhinitis: Status: Chronic SNOMED Code(s): 94225391 Category: Medical Plan - Lindsay Chapman DO: She does follow with dress cutter so she can certainly discuss her breakthrough symptoms with the dress cutter but I think they are likely due [...] R19.5 - Other fecal abnormalities SNOMED Code(s): 15757022 Category: Medical Plan - Lindsay Chapman, DO: [...] - Other specified anxiety disorders SNOMED Code(s): 955528879 Category: Medical Plan - Lindsay Chapman, DO: [...] Code(s): E78.2 - Mixed hyperlipidemia SNOMED Code(s): 199880417 Category: Carine Jain - Lindsay Chapman, DO: Stable on statin preferably keep LDL under 70 but at least under 100 (6) Mild vitamin D deficiency: Status: Chronic Comment: Vitamin D was in good range she will continue her current dose Code(s): E55.9 - Vitamin D deficiency, unspecified SNOMED Code(s): 15712875 Category: Medical Plan - Lindsay Huitron, DO: Stable on present dose recheck in 3 months (7) Hypertension, essential: Status: Chronic SNOMED Code(s): 41430540 Category: Carine Jain - Lindsay Chapman DO: Stable and she does spill microalbumin so we have her on renal protection with enalapril diet and exercise discussed Orders Instructions: Type 2 Diabetes in Adults: New Diagnosis (GEN) <Electronically signed by Lindsay Chapman DO> 05/30/20 2356 Name Value Range Interpretation Code Description Data Sarah rce(s) Supporting Document(s) ID Date Data Source [id number] 05/16/2020 12:45:00 PM EST [facility] Name Value Range Interpretation Code Description Data Sarah rce(s) Supporting Document(s) Follow Up [facility] MTJMBl3nArSZQmEpAOOiYdpAQUbdLUrkPXVlC6P3ORbnQl7ZHCzhakPxGFFaEt8+WOOmIY9cnf7bIEVx gMy [file] 3eLc2NFnndsYrlxrRsZOyXeyI1R4QamDAvITyiaxFYA+P/xkkgIQBN+Jose Cruz+Vlaubyzn3zjOOgOdbbUcP [file] BmWWsKYAezCW66on+hPttJGT7/Jqa/Ydlcb9WDIbad551lHpVx49rd5E962ehVVPYnwYMCF5qDGpG/Luis Carlos 3t0DK4NdTdlR//6g47D0ShhLB9DDnX8vbGpIWFm6/p 2nXY/b+YJThEjjRuDv3qrSKKTWx8LVNW9qpYM08fgPPRzgk1/kdIL8bJ2Sii9FrGZZrb6mjcX9qZ5sPa mz8o6lHCC874nEJJ9oz6mneppJZxFchgpx35OYy1+4ZlcixmVBDekEsvF8R+jfUlLP2sT1mGGdxtnwMx R4w6Keq6I3mzHXWYxg52JALUK1sXggc6inFIKxWQg7 KHXbIbYN2rvjVttzYKrlutSzFttArPAj8srGRAnP/gYKp9KnRKodWGtPQPF5Aed2LGliQZPAerJ6RhZM a/0PGw2/9t+sHFhq0vjDVnJZNxJt/vLDbR2emxOcbJthBPx1ABko9IvWgVSx27oE4KlHo4rFeOlCNeF3 Oq8RVSkJUti86e7D9yLHgXwKEb1NswE1jL0pve9cJm DyrS8dsv8/WNj/B/7jyt53IndKKbZAxb9+ZAqrVB0JU5RzmFVKTmgid6FlKMgUgCug+8m7wUzbxw8YJl pZe4REIhRCsw0KWnKHKMwkWE2eZ21qk6o11/jvcLy28gK+YHuvAoYwUEIan6BKkfaRSEKGGk/6jjsFlI TqKQIxHtPR4M6FgjnrHZinUFhtuWQfSYh1mM2m34yA eEYq2IDl+7nmVD67gOP4gvNeRpkEwd/Lp8o6TqlshV5ysYr6CadD2VsCOTd7NDb0g0aLTuR/TpVbgEad LqXTfq12p2ztcHdLme8EG+30mkn+9z0iHYqcRTYc24EJ/1ps+XOH8Ij6ga+HQhs5sYBbv+KzDBYPc/ZJ t1j8Hq6H2FaoVFTjKSVuquhhsold2HTuQrbvK7Q+v9 0pRt+N2S2Hrf4RnnIrwm9zkOlvfVbtt8YifCkDy0/Rico+Vt68K9+yhf2GfvRslymqa1Qj9+j6UQTOWE9D [file] e/n+fUU+MYgV0oJRmlhLszirlLaEi5dXTYQy/p4/Artist And Repertoire Manager [file] uY4hNyoBqMeD9G6tc7g0XRuVLBM3+CLINICAL PHARMACY MANAGER+qTMI6mULZ2WIsyf+Wpwjs4cF0tAoe9gZefgp6U4bYP5BM3KK [file] 6nmN/4I0ney7+csOjX1lzwRCRe81Z8jzjRbgX1/RADIATOR CORE TESTER [file] López/iUscTiYwzM6QLBMu2Z6+k8Ja/3sZm4sGi7hHnqzIiDY8s8FJ4zBpaXvjmf7UFHLdDSnaZaeKUeNY [file] tstXnyuIMk+iMo92+hagoSpbF2hOrV4lF/senior care+A7yQ [file] f+gPdk9z5UQzqi0Tz+UD3ou0buWY2zX+E/6Pe [file] bHPft4uYmuIPfaf/nW2IRA2QO3dwnO94FLCkBl0aVSMcuI8K+Jose Ramon/xo5iDJ3iR/uZZrSz8fLyLubNe3p [file] HDCTXzTgzUWh3gH6yOfAzjbhCnYmZ8Tk9WOL4H1JMTrp75AS6Oh+3PLSgFfmYNm2jiG+dS8RY5zrw/DEL TORO hRyAo52PLlvrZBsesrd2zC9V5n9ykpt+Lp7puEVIow q0Vh3M3J81zO4bjPeMONftc65tx2ndzFM4em1i05IZNdRoCOnc7XRDYz2yt71/IcloSMe6Eu7Fnz30B5 elfBIaJ2vrUD+6rbMXMQmmBxj6YubbOZ4wxqHeh8C1u53h4AWxki8EcQ+galilea+G6t0onKS34cSYC0p9DZ [file] civil engineering design draftsperson/LO6EYlEQdFgjIRsMHeDg9RxiUum+aWtQC/Wz5RJ+32pUn7w0a0BT1PRHF17nJ/CLXi1qVtQtPX6M8 [file] rU6W2ESS21W9+6f/134Ud5AQEs39BtTTcrA3b2pxk3 W8aBb/eqmtqD8YI27nImSLRPiHUxPdVaP6BLdEv5R80T+asC8knOHz1GbuvB1+K+bNKBFnF7dxf1Iih2 SNQ8VKNplRai6DVcXH9CeLDvoUsj7+noLT+p3PkzrWi1HjVhhbLYb3PuTdlmvlOsle0jDE8n5mf260MT 2wWxQJe7kkOU/+vAu89iLbv+lhJBIG4E8RNpWKCdZF UuWPxC5OlI90ULn6i00xgH1tqcP//2uGsQCfYZHA8mXnSevpGI9uL6VExMQQvmoYMLJ/es21cHSlPDCS JTLPHf4WJ4xC1bN/5+xXOcEGOCs66h6Zwdw3QTH8qnusAJZn++VdQ0P399BYZ5BggsFqwJ2QMRRNePd8 NIqBjqAyISSgUudTCZbXPKS/3xoWlVUfF6C0Jc9FTt AHx2Rp6s1Er1LBR10HAIQpeWmBNnrFU8mcx8iIh0h9xYfN973GmfQmoCYiiWg1qTihCnmUEAiuJaeGiC p1WjaZ/CKU3HlwlMUklQqqzzisHI/ah7wmDcDlhLetXx2G0F3LpqmfpxvdFrpXv64Tac/vLYcX0Yvi49 gmGCsA8RCUCx3/eZRvFBc/FSpJs5hMHmyeiQZ8eWTp FPRpttjaqL+tRpOH3mZb/3yDJGSIgvb2hPh6CjpI5Q9ubsg3Ux1NYPrl9eqkrcfSAMm12+jet dyeing machine tender+3NquZ8 [file] EAAKd11BE4WrfL+Jose R/+d3WiE1Bs/dmGqEAizanuLpl7tSn99RE7NeXP8OL6d5cMBg8/oYjDopqhZT4j [file] nvQ0/FxQxazdwjBpvAf9NMFe4bRdWJyhNVsR3L+small business banking officer [file] Ict Sales Representative/G9gRZCNmPzzn/PxeZgR37Rfe3RefbFrikqjePLvF2BplHnFKBSXduEnrZBvSVnW7gG0pScjVzZ1K [file] +Sxeq+CLINICAL PHARMACY MANAGER/mwTDZJVed1PMSbm/539l5YuI8ZKAya7Qu [file] Artist And Repertoire Manager/ds9m0pKyCFfCyJOd2WJORMnEFPzgNlA/dCmyqS/c6jIkS+1AiQRnIWHfO5oVqAgBy/VHVRWAKjjhe [file] Jose R/Ds4kf0Xm5DOY+8++Bab5mZYMlryrNeuwsRxtbznn3AUquhL8WRf2cZA1RHSIN50S/I01cdHR0drg [file] qrvLDGDbCsGdjzCxpEqscl2HPTGkHlJpPhs1AdR8Ecbc/WoRaVEVxFm/eZU6NdXwqUL4E4u7+4pjd/civil engineering design draftsperson [file] legal affairs [file] GIofJmapIM6Jo9bWcviQGWSv7FWe7Ig0h8e7dCtuPl4AaX3+S8afhzmYlUJ+v+PsPT3r4GlK+jboss architect+xMx [file] Cargo Supervisor/d/CgNVpCnIWw90uvaysJ8F/kZLNhiF1Fs5olnUtg+xivOM4eo0J/xMOgsWxrwD/f/zt4iThFkwHgq [file] s/M2SviwHq0PVxm+r8DQAAR6hWt4faCqzk12SaTyZLAIf40mo4Zs52KAEocbTuiGE+oqbEhfbO3pR+Luis Carlos [file] m+8AXZXUMh+steam trap worker++fNMMXYePvgOsAxIfkp1IzZV5PF [file] PjZXnVQVg0g+l+t5xMBHc57zGBBI8v5iW19+wL1TsDpaGGq+GYfEA77pKNOdIf9ecJNeUG+VgVOn/christmas tree farm worker [file] y5VpLE3Bj6WduzU9qnSbDDshTEFwLRH0EDvlPESMSr== ID Date Data Source [id number] 05/13/2020 09:09:00 [place] [address] OPERATIVE SUMMARYNAME: RENATA Thrasher DATE OF : 1960TTENDING PHYS: Henna Moreira MD DATE: 04/30/20 MR#: [id number] OF PROCEDURE: 04/30/2020PREOPERATIVE DIAGNOSIS: Cataract, left eye.POSTOPERATIVE DIAGNOSIS: Cataract, left eyePROCEDURE: Phacoemulsification with cataract removal with the help of ORA, IOL lens useAUOOTO 19 diopter.SURGEON: Henna Moreira MD.EMERGENCY MEDICAL SERVICE MANAGER: None.COMPLICATIONS: None.INDICATIONS: Decreased vision interfering with daily [...] salt solution followed by phacoemulsification in a gocqyi-jle-xckxifc methodwithin the capsular bag. Excess cortical material [...] condition.DD: Henna Moreira MD 05/13/20 08:16 1 [place] [address] OPERATIVE SUMMARYNAME: RENATA Thrasher DATE OF : 8ATTENDING PHYS: Henna Moreira MD DATE: 04/30/20 MR#: [id number]: [facility] 05/13/20 09:07DS: Henna Moreira MD 05/15/20 16:33 2 Name Value Range Interpretation Code Description Data Sarah rce(s) Supporting Document(s) ID Date Data Source [id number] 05/13/2020 12:04:00 PM [facility] Name Value Range Interpretation Code Description Data Sarah rce(s) Supporting Document(s) Hemoglobin A1c % 6.6 % 4.0-6.0 Above high normal [facility] The following ranges may be u sed for interpretation of results: HGBA1C degree of glucose control: Greater than 8%: Action Suggested * Less than 7%: Goal of Diabetic Therapy Less than 6%: NormalFactors such as duration of diabetes, adherence to therapyand the age of the patient should also be considered inassessing the degree of blood glucose control.* High risk of developing prison complications such asretinopathy, nephropathy, neuropathy, cardiopathy, etc. Some danger of hypoglycemic reaction in Type I diabetics.Some glucose intolerant individuals and "Sub Clinical"diabetics may demonstrate HGBA1C levels in this area. Glucose mean value [Moles/volume] in Blood Estimated f rom glycated hemoglobin 143 mg/dL [facility] An A1C of 7% - the goal of diabetic ther apy - is equivalentto an EAG of 154 mg/dl. ID Date Data Source [id number] 05/13/2020 12:34:00 PM EST [facility] Name Value Range Interpretation Code Description Data Sarah rce(s) Supporting Document(s) Urea nitrogen [Mass/volume] in Serum or Plasma 13 mg/dL 9-23 N [facility] Sodium [Moles/volume] in Serum or Plasma 141 mmol/L 132-146 N [facility] Potassium [Moles/volume] in Serum or Plasma 5.1 mmol/L 3.5-5.5 [facility] Chloride [Moles/volume] in Serum or Plasma 112 mmol/L 99-109 Above high normal [facility] Carbon dioxide, total [Moles/volume] in Serum or Plasma 22 mmol/L 20 -31 N [facility] Anion gap in Serum or Plasma 12 mmol/L 8-16 [facility] Glucose [Mass/volume] in Serum or Plasma 80 mg/dL 74-106 N [facility] Creatinine 0.9 mg/dL 0.5-1.1 [facility] Glomerular filtration rate/1.73 sq M.pre dicted [Volume Rate/Area] in Serum or Plasma Greater Than 60 ABOVE 60 [facility] Alanine aminotransferase [Enzymatic acti vity/volume] in Serum or Plasma by With P-5'-P 22 U/L 10-49 N [facility] ital Aspartate aminotransferase [Enzymatic ac tivity/volume] in Serum or Plasma by With P-5'-P 19 U/L 0-33 N [facility] pital Alkaline phosphatase [Enzymatic activity/volume] in Serum or Plasma 132 U/L 45-129 Above high normal [facility] Calcium [Mass/volume] in Serum or Plasma 9.2 mg/dL 8.5-10.1 N [facility] Bilirubin.total [Mass/volume] in Serum or Plasma 0.4 mg/dL 0.3-1.2 N [facility] Albumin [Mass/volume] in Serum or Plasma by Bromocresol purple (BCP) dye binding method 3.5 g/dL 3.2-4.8 N [facility] Protein [Mass/volume] in Serum or Plasma 7.5 g/dL 5.7-8.2 [facility] ID Date Data Source [id number] 05/14/2020 07:26:00 AM [facility] Name Value Range Interpretation Code Description Data Sarah rce(s) Supporting Document(s) 25-Hydroxyvitamin D2+25-Hydroxyvitamin D3 [Mass/volume ] in Serum or Plasma 60 ng/mL 30-100 [facility] Vitamin D Status 25-OH Vitamin D :Deficiency: <20 ng/mLInsufficiency: 20 - 29 ng/mLOptimal: > or = 30 ng/mLFor 25-OH Vitamin D testing on patients onD2-supplementation and patients for whom quantitationof D2 and D3 fractions is required, the QuestAssureD(TM)25- OH VIT D, (D2,D3), LC/MS/MS is recommended: ordercode 40503 (patients >2yrs).See Note 1Note 1For additional information, please refer tohttp://education.[employer]/faq/APO074(This link is being provided for informational/educational purposes only.)THIS TEST WAS PERFORMED AT:[employer] [address]AHSAN CANSECO MD ID Date Data Source [id number] 05/13/2020 12:34:00 PM [facility] Name Value Range Interpretation Code Description Data Sarah rce(s) Supporting Document(s) Triglycerides 134 mg/dL 0-150 [facility] Cholesterol 169 mg/dL 120-200 [facility] HDL Cholesterol 85 mg/dL [facility] HDL Less than 40 mg/dL: Major risk for CHDHDL Greater than 59 mg/dL: Low risk for CHD LDL Cholesterol, Calc 58 mg/dL 0-100 N [facility] ID Date Data Source [id number] 05/13/2020 11:35:00 AM EST [facility] Name Value Range Interpretation Code Description Data Sarah rce(s) Supporting Document(s) Leukocytes [#/volume] in Blood by Automated count 6.8 10*3/uL 4.45-10 .71 N [facility] Erythrocytes [#/volume] in Blood by Automated count 3.95 10*6/uL 4.20-5.40 Below low normal [facility] Hemoglobin [Moles/volume] in Blood 12.7 g/dL 10.7-15.4 N [facility] Hematocrit [Volume Fraction] of Blood by Automated count 41.4 % 3 7-47 N [facility] Erythrocyte mean corpuscular volume [Ent itic volume] in Cord blood by Automated count 104.8 fL 80-96 Above high normal [facility] Erythrocyte mean corpuscular hemoglobin [Entitic mass] by Automated count 32.2 pg 27-31 Above high normal [facility] spital Erythrocyte mean corpuscular hemoglobin concentration [Mass/volume] in Cord blood 30.7 g/dL 33-37 Below low normal [facility] Erythrocyte distribution width [Entitic volume] by Automated count 14 % 11-15 N [facility] Platelets [#/volume] in Blood by Automated count 288 10*3/uL 130-472 N [facility] Platelet mean volume [Entitic volume] in Blood 9.3 fL 9.1-13.1 N [facility] Neutrophils/100 leukocytes in Blood by Automated count 60.1 % 41- 77 N [facility] Neutrophils [#/volume] in Blood by Automated count 4.1 U 1.7-7.6 N [facility] Lymphocytes/100 leukocytes in Blood by Automated count 28.9 % 14- 46 N [facility] Lymphocytes [#/volume] in Blood by Automated count 2.0 U 0.6-4.6 N [facility] Monocytes/100 leukocytes in Blood by Automated count 7.9 % 4-12 N [facility] Monocytes [#/volume] in Blood by Automated count 0.5 U 0.2-1.2 N [facility] Eosinophils/100 leukocytes in Blood by Automated count 2.0 % 0-7 N [facility] Eosinophils [#/volume] in Blood by Automated count 0.1 U 0.0-0.5 N [facility] Basophils/100 leukocytes in Blood by Automated count 0.7 % 0.4-1 .3 N [facility] Basophils [#/volume] in Blood by Automated count 0.1 U 0.0-0.2 N [facility] NUCLEATED RED BLOOD CELL 0 % [facility]LE[facility] RED BLOOD CELL# [facility] Immature granulocytes [Presence] in Blood by Automated count 0-2 N [facility] Immature granulocytes [#/volume] in Blood by Automated count 0.0 U 0-0.1 N [facility] Manual Differential panel - Blood NO [facility] ID Date Data Source [id number] 05/13/2020 10:44:00 AM EST [facility] ([facility]) Name Value Range Interpretation Code Description Data Sarah rce(s) Supporting Document(s) 25-Hydroxyvitamin D2+25-Hydroxyvitamin D3 [Mass/volume ] in Serum or Plasma 60 ng/mL 30-100 [facility] ([facility]) <content>Vitamin D Status 25-OH Vitamin D:</content>
<content>Deficiency: <20 ng/mL</content>
<content>Insufficiency: 20 - 29 ng/mL</content>
<content>Optimal: > or = 30 ng/mL</content>
<content>For 25-OH Vitamin D testing on patients on</content>
<content>D2-supplementation and patients for whom quantitation</content>
<content>of D2 and D3 fractions is required, the QuestAssureD(TM)</content>
<content>25-OH VIT D, (D2,D3), LC/MS/MS is recommended: order</content>
<content>code 94654 (patients >2yrs).</content>
<content>See Note 1</content>
<content>Note 1</content>
<content>For additional information, please refer to</content>
<content>http://education.[employer]/faq/CMS702</cont ent>
<content>(This link is being provided for informational/</content>
<content>educational purposes only.)</content>
<content>THIS TEST WAS PERFORMED AT:</content>
<content>[facility]</content>
<content>[address]</content>
<content>[place] [address]</content>
<content>AHSAN CANSECO MD</content>
<content></content> ID Date Data Source [id number] 05/13/2020 10:44:00 AM EST [facility] ([facility], ) Name Value Range Interpretation Code Description Data Sarah rce(s) Supporting Document(s) Triglyceride [Mass/volume] in Serum or Plasma 134 mg/dL 0-150 [facility] ([facility], ) Cholesterol [Mass/volume] in Serum or Plasma 169 mg/dL 120-200 [facility] ([facility], ) Cholesterol in LDL [Mass/volume] in Serum or Plasma by calcu lation 58 mg/dL 0-100 [facility] ([facility], ) Cholesterol in HDL [Mass/volume] in Serum or Plasma 85 mg/dL [facility] ([facility], ) HDL Less than 40 mg/dL: Major risk for CHD HDL Greater than 59 mg/dL: Low risk for CHD ID Date Data Source [id number] 05/13/2020 10:44:00 AM EST [facility] ([facility], ) Name Value Range Interpretation Code Description Data Sarah rce(s) Supporting Document(s) Urea nitrogen [Mass/volume] in Serum or Plasma 13 mg/dL 9-23 [facility] ([facility], ) Sodium [Moles/volume] in Serum or Plasma 141 mmol/L 132-146 [facility] ([facility], ) Potassium [Moles/volume] in Serum or Plasma 5.1 mmol/L 3.5-5.5 [facility] ([facility]) Carbon dioxide, total [Moles/volume] in Serum or Plasma 22 mmol/L 20 -31 [facility] ([facility]) Chloride [Moles/volume] in Serum or Plasma 112 mmol/L 99-109 [facility] ([facility]) Anion gap in Serum or Plasma 12 mmol/L 8-16 [facility] ([facility]) Glucose [Mass/volume] in Serum or Plasma 80 mg/dL 74-106 [facility] ([facility]) Glomerular filtration rate/1.73 sq M.pre dicted [Volume Rate/Area] in Serum or Plasma Laboratory test result [facility] ([facility]) Creatinine 0.9 mg/dL 0.5-1.1 [facility] ([facility]) Alanine aminotransferase [Enzymatic acti vity/volume] in Serum or Plasma by With P-5'-P 22 U/L 10-49 [facility] ([facility]) Alkaline phosphatase [Enzymatic activity/volume] in Serum or Plasma 132 U/L 45-129 [facility] ([facility]) Aspartate aminotransferase [Enzymatic ac tivity/volume] in Serum or Plasma by With P-5'-P 19 U/L 0-33 [facility] ([facility], ) Calcium [Mass/volume] in Serum or Plasma 9.2 mg/dL 8.5-10.1 [facility] ([facility]) Bilirubin.total [Mass/volume] in Serum or Plasma 0.4 mg/dL 0.3-1.2 [facility] ([facility]) Protein [Mass/volume] in Serum or Plasma 7.5 g/dL 5.7-8.2 [facility] ([facility]) Albumin [Mass/volume] in Serum or Plasma by Bromocresol purple (BCP) dye binding method 3.5 g/dL 3.2-4.8 [facility] ([facility]) ID Date Data Source [id number] 05/13/2020 10:44:00 AM EST [facility] ([facility]) Name Value Range Interpretation Code Description Data Sarah rce(s) Supporting Document(s) Glucose mean value [Moles/volume] in Blood Estimated f rom glycated hemoglobin 143 mg/dL [facility] ([facility] ) An A1C of 7% - the goal of diabetic ther apy - is equivalent to an EAG of 154 mg/dl. Hemoglobin A1c/Hemoglobin.total in Blood 6.6 % 4.0-6.0 [facility] ([facility]) The following ranges may be used [...] glucose control. * High risk of developing long chain beamer complications such as retinopathy, nephropathy, neuropathy, cardiopathy, etc. Some danger of hypoglycemic reaction in Type I diabetics. Some glucose intolerant individuals and "Sub Clinical" diabetics may demonstrate HGBA1C levels in this area. ID Date Data Source [id number] 05/13/2020 10:44:00 AM EST [facility] ([facility]) Name Value Range Interpretation Code Description Data Sarah rce(s) Supporting Document(s) Leukocytes [#/volume] in Blood by Automated count 6.8 10*3/uL 4.45-10 .71 [facility] ([facility]) E78.2,R19.5,E11.8,E55.9,A31.0,K92.1 Hemoglobin [Moles/volume] in Blood 12.7 g/dL 10.7-15.4 [facility] ([facility]) E78.2,R19.5,E11.8,E55.9,A31.0,K92.1 Erythrocytes [#/volume] in Blood by Automated count 3.95 10*6/uL 4.20 -5.40 [facility] ([facility]) E78.2,R19.5,E11.8,E55.9,A31.0,K92.1 Hematocrit [Volume Fraction] of Blood by Automated count 41.4 % 3 7-47 [facility] ([facility]) E78.2,R19.5,E11.8,E55.9,A31.0,K92.1 Erythrocyte mean corpuscular volume [Ent itic volume] in Cord blood by Automated count 104.8 fL 80-96 [facility] ([facility]) E78.2,R19.5,E11.8,E55.9,A31.0,K92.1 Erythrocyte mean corpuscular hemoglobin [Entitic mass] by Automated count 32.2 pg 27-31 [facility] ([facility]) E78.2,R19.5,E11.8,E55.9,A31.0,K92.1 Erythrocyte mean corpuscular hemoglobin concentration [Mass/volume] in Cord blood 30.7 g/dL 33-37 [facility] ([facility]) E78.2,R19.5,E11.8,E55.9,A31.0,K92.1 Platelets [#/volume] in Blood by Automated count 288 10*3/uL 130-472 [facility] ([facility]) E78.2,R19.5,E11.8,E55.9,A31.0,K92.1 Erythrocyte distribution width [Entitic volume] by Automated count 14 % 11-15 [facility] ([facility]) E78.2,R19.5,E11.8,E55.9,A31.0,K92.1 Neutrophils [#/volume] in Blood by Automated count 4.1 U 1.7-7.6 [facility] ([facility]) E78.2,R19.5,E11.8,E55.9,A31.0,K92.1 Neutrophils/100 leukocytes in Blood by Automated count 60.1 % 41- 77 [facility] ([facility]) E78.2,R19.5,E11.8,E55.9,A31.0,K92.1 Platelet mean volume [Entitic volume] in Blood 9.3 fL 9.1-13.1 [facility] ([facility]) E78.2,R19.5,E11.8,E55.9,A31.0,K92.1 Lymphocytes [#/volume] in Blood by Automated count 2.0 U 0.6-4.6 [facility] ([facility]) E78.2,R19.5,E11.8,E55.9,A31.0,K92.1 Lymphocytes/100 leukocytes in Blood by Automated count 28.9 % 14- 46 [facility] ([facility]) E78.2,R19.5,E11.8,E55.9,A31.0,K92.1 Monocytes/100 leukocytes in Blood by Automated count 7.9 % 4-12 [facility] ([facility]) E78.2,R19.5,E11.8,E55.9,A31.0,K92.1 Monocytes [#/volume] in Blood by Automated count 0.5 U 0.2-1.2 [facility] E78.2,R19.5,E11.8,E55.9,A31.0,K92.1 Eosinophils/100 leukocytes in Blood by Automated count 2.0 % 0-7 [facility] E78.2,R19.5,E11.8,E55.9,A31.0,K92.1 Eosinophils [#/volume] in Blood by Automated count 0.1 U 0.0-0.5 [facility] E78.2,R19.5,E11.8,E55.9,A31.0,K92.1 Basophils [#/volume] in Blood by Automated count 0.1 U 0.0-0.2 [facility] E78.2,R19.5,E11.8,E55.9,A31.0,K92.1 Laboratory test finding (navigational concept) 0 % [facility] ([facility]) E78.2,R19.5,E11.8,E55.9,A31.0,K92.1 Basophils/100 leukocytes in Blood by Automated count 0.7 % 0.4-1 .3 [facility] ([facility]) E78.2,R19.5,E11.8,E55.9,A31.0,K92.1 Immature granulocytes [Presence] in Blood by Automated count 0.4 0-2 [facility] ([facility]) E78.2,R19.5,E11.8,E55.9,A31.0,K92.1 Laboratory test finding (navigational concept) 0 U [facility] ([facility]) E78.2,R19.5,E11.8,E55.9,A31.0,K92.1 Immature granulocytes [#/volume] in Blood by Automated count 0.0 U 0-0.1 [facility] ([facility]) E78.2,R19.5,E11.8,E55.9,A31.0,K92.1 Manual Differential panel - Blood Laboratory test result [facility] ([facility]) E78.2,R19.5,E11.8,E55.9,A31.0,K92.1 ID Date Data Source [id number] 04/28/2020 08:36:00 [place] [address] OPERATIVE SUMMARYNAME: RENATA Thrasher DATE OF : 9ATTENDING PHYS: Henna Moreira MD DATE: 04/09/20 MR#: [id number] OF PROCEDURE: 04/09/2020PREOPERATIVE DIAGNOSIS: Cataract, right eye.POSTOPERATIVE DIAGNOSIS: Cataract, right eyePROCEDURE: Phacoemulsification with intraocular lens implantation using AUOOTO 20diopters along with ORA.SURGEON: Henna Moreira MD.EMERGENCY MEDICAL SERVICE MANAGER: None.COMPLICATIONS: None.INDICATIONS: Decreased vision interfering with daily [...] salt solution followed by phacoemulsification in a knhmnm-iuc-kujftop methodwithin the capsular bag. Excess cortical material [...] the recovery room in stable condition. [address] [place] [address] OPERATIVE SUMMARYNAME: RENATA Thrasher DATE OF : 1960TTENDING PHYS: Henna Moreira MD DATE: 04/09/20 MR#: [id number]: Henna Moreira MD 04/26/20 18:07DT: SSR 04/28/20 08:35DS: Henna Moreira MD 05/01/20 13:44 2 Name Value Range Interpretation Code Description Data Sarah rce(s) Supporting Document(s) ID Date Data Source [id number] 04/25/2020 10:03:00 AM EDT [facility] Name Value Range Interpretation Code Description Data Sarah rce(s) Supporting Document(s) SARS-CoV-2 (COVID19) [facility] This lab was ordered by [facility] and reported by [facility]. ID Date Data Source [id number] 04/16/2020 12:54:00 PM EDT [facility] "NORMAL" FOR IFOB FECAL OCCULT BLOOD IS "NEGATIVE"THE [employer] iFOB IS AN IMMUNOCHEMICAL FECAL OCCULT BLOODTEST Name Value Range Interpretation Code Description Data Sarah rce(s) Supporting Document(s) IFOB ICT fecal occult bld Positive Abnormal (appli es to non-numeric results) [facility] ID Date Data Source [id number] 04/14/2020 09:20:00 AM EDT [facility] Patient Name: ISIDRA YANEZ : 1960 Sex: F Pt Unit #: [id number] Location:[facility] Provider: Visit Date/Time: 04/14/20 Primary Insurance: [facility] Secondary Insurance: Self Pay Intake Vital Signs [...] to proceed with colonoscopy. She does have installation coordinator Dale [facility] and she does see him on a [...] comes and goes she denies any injuries. Skiagrapher Required: No Accompanied by: Self / Same [...] 500 mg PO QMWF blood sugar diagnostic (OneTouch Verio test strips) Use strips to test [...] QID MDD 4 Lactobacillus acidophilus PO lancets ([employer] Lancets) to be used AC and HS [...] Dr. Kenney for allergy and immunology , [facility] in [facility] for her eye care Fall Risk [...] and colleagues, with an educational andrew from [employer]. 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 History of abnormal paps: No Still having [...] obese Orientation: alert, awake and oriented x3 [facility] Head: normocephalic and atraumatic Ears: hearing grossly [...] Administered by: Odessa Valdez on 04/14/20 10:37 Dose Route Admin Location Lot Number Expiration Date NDC Manufactu rer 0.5 mL IM Left arm C [id number] 10/09/21 [employer] VIS Given Date VIS Provided VIS Publication Date 04/14/20 Single Vaccine 19 Eligibility Eligibility Date Funding Source Not [facility] Eligible 04/14/20 Private Quality Reporting Depression/Bipolar (159/160/161/169/177) Total score: 6 Assessment Plan Assessment Plan (1) Encounter for annual health examination: Code(s): Z00.00 - Encounter for general adult medical examination without abnormal findings Plan - Lindsay Chapman, DO: Patient has been acutely ill often [...] She has extensive care team. She sees [place] [facility] for her ophthalmology care and recent cataract surgery. She sees Dr. andrade and Dr. Ambriz for treatment of her MAC and management of her recurrent pneumonia and persistent exacerbation of asthma. She [facility] Dr. Kenney [facility] in [place] for her common variable immune deficiency syndrome and still gets weekly injections of IVIG. They also monitor her PFTs and breathing function and her IgG levels. She follows with [facility] and they monitor her gastroparesis [...] December 2018 when she was hospitalized at [facility] we are calling for that echo result. I manage her hyperlipidemia her diabetes her vitamin D deficiency her anxiety and depression and she is due for diabetes care next month so have ordered labs she also sees ENT in [place] and has had sinus surgery I will [...] by Lindsay Chapman DO> Date/Time Signed: 04/15/20 153 Name Value Range Interpretation Code Description Data Sarah rce(s) Supporting Document(s) ID Date Data Source [id number] 03/21/2020 03:48:00 PM EDT [facility] Patient Name: ISIDRA YANEZ : 1960 Sex: F Pt Unit #: [id number] Location:[facility] Provider: Visit Date/Time: 03/21/20 Primary Insurance: [facility] Secondary Insurance: Self Pay Intake Vital Signs [...] wait two weeks for the next eye. Skiagrapher Required: No Accompanied by: Self / Same [...] 500 mg PO QMWF blood sugar diagnostic (StylewhileTouch Verio test strips) Use strips to test [...] QID MDD 4 Lactobacillus acidophilus PO lancets ([employer] Lancets) to be used AC and HS [...] Screening Screening Have you traveled outside of [facility] or [facility] in the last 14 days.: No Has patient experienced coronavirus symptoms: No [facility] Medical History Allergic rhinitis Anxiety [...] Ambriz who after seeing multitude of other customer resolution specialist including [facility] diagnosed her with this persistent pneumonia and [...] recently saw and his PA down in [place] for management of her reflux microaspiration and [...] by her treating neurologist Dr. Wilkinson at [facility]. She continues to see him on a [...] by Dr. Wilkinson her neurologist not her cost manager recommend she bring it with her to [...] from her infectious disease doctor and her cost manager that they feel her pulmonary status is [...] to get IVIG injections weekly from her dress cutter which have brought her level back to normal it in addition to following with pulmonary and infectious disease she sees Dr. Denis at [place] [facility] and he prescribes IV Ig shots that she takes at home weekly she has a common variable immune deficiency syndrome which contributes to her chronic issues and IVIG has helped bring her immunoglobulin levels back up into normal range Exam Const General: cooperative, comfortable, no acute distress and well groomed Nutritional Appearance: obese Orientation: alert, awake and oriented x3 HENTN Head: normocephalic and atraumatic Ears: hearing grossly [...] Route Admin Location Lot Number Expiration Date [facility] Manufactu rer 60 mcg IM left deltoid [id number] 01/07/21 60461-194-46 [employer]. Assessment Plan Assessment Plan (1) Encounter for [...] issue was Mycobacterium avium. Dr. Ambriz her cost manager and Hans have worked together and her [...] methotrexate to treat her myasthenia gravis. Her dress cutter does have her on weekly IVIG injections [...] Name Value Range Interpretation Code Description Data [facility] Supporting Document(s) ID Date Data Source [id number] 02/21/2020 08:31:00 AM RADHIKA FERNANDEZ ([facility], ) Name Value Range Interpretation Code Description Data Sarah rce(s) Supporting Document(s) Afb Smear Laboratory test result REBECCA ([facility], ) Due to limited sensitivity, smear result s should be used as an adjunct in evaluating patient tuberculosis status. Cultural examination is highly recommended for clinical diagnosis. AFB smear Kinyoun NEGATIVE (NO AFB Seen ) Afb Culture Laboratory test result Salvatore CARLSON ([facility], ) Testing performed at reference lab . Rep ort copy to follow on a separate form. 04/07/20 REF LAB#:[id number] FINAL REPORT: 04/15/20 FULL REPORT IN LAB NOTES ([facility] and [facility]). No Acid-Fast Bacilli Isolated after 6 Weeks. ID Date Data Source [id number] 02/21/2020 08:31:00 AM EDT [facility], ) Name Value Range Interpretation Code Description Data Sarah rce(s) Supporting Document(s) Gram Stain Laboratory test result Normal (applies to non-n umeric results) [facility] ([facility]) QUALITY: GOOD MANY WBCS FEW EPITHELIAL CELLS MODERATE GRAM POSITIVE COCCI IN CHAINS MODERATE GRAM POSITIVE RODS Sputum Culture Laboratory test result Normal (applies to non-numeric results) [facility] ([facility], ) <content>FULL REPORT IN LAB NOTES ([facility]</content>
<content>NORMAL TOMMY PRESENT</content>
<content></content>
<content>ORGANISM 1: ENTEROBACTER [...] <=1 S</content>
<content></content> ID Date Data Source [id number] 02/03/2020 10:07:00 AM EDT [facility] Source Of Specimen: ST Name Value Range Interpretation Code Description Data Sarah rce(s) Supporting Document(s) Helicobacter pylori Ag [Presence] in Stool by Immunoassay Negative [facility] Performed at: RN - [facility] [place] [id number] Director: Constanza Saxena MD, Phone: [phone] ID Date Data Source [id number] 02/01/2020 12:45:00 PM EDT [facility] ([facility]) Name Value Range Interpretation Code Description Data Sarah rce(s) Supporting Document(s) Helicobacter pylori Ag [Presence] in Stool Laboratory test result [facility] ([facility]) R10.13,D83.9 ID Date Data Source [id number] 02/01/2020 10:18:00 AM EDT [facility] Name Value Range Interpretation Code Description Data Sarah rce(s) Supporting Document(s) Leukocytes [#/volume] in Blood by Automated count 6.6 10*3/uL 4.45-10 .71 N [facility] Erythrocytes [#/volume] in Blood by Automated count 3.94 10*6/uL 4.20-5.40 Below low normal [facility] Hemoglobin [Moles/volume] in Blood 12.7 g/dL 10.7-15.4 N [facility] Hematocrit [Volume Fraction] of Blood by Automated count 39.0 % 3 7-47 N [facility] Erythrocyte mean corpuscular volume [Ent itic volume] in Cord blood by Automated count 99.0 fL 80-96 Above high normal [facility] Erythrocyte mean corpuscular hemoglobin [Entitic mass] by Automated count 32.2 pg 27-31 Above high normal [facility] spital Erythrocyte mean corpuscular hemoglobin concentration [Mass/volume] in Cord blood 32.6 g/dL 33-37 Below low normal [facility] Erythrocyte distribution width [Entitic volume] by Automated count 13 % 11-15 N [facility] Platelets [#/volume] in Blood by Automated count 282 10*3/uL 130-472 N [facility] Platelet mean volume [Entitic volume] in Blood 8.9 fL 9.1-13. 1 Below low normal [facility] Neutrophils/100 leukocytes in Blood by Automated count 51.3 % 41- 77 N [facility] Neutrophils [#/volume] in Blood by Automated count 3.4 U 1.7-7.6 N [facility] Lymphocytes/100 leukocytes in Blood by Automated count 36.3 % 14- 46 N [facility] Lymphocytes [#/volume] in Blood by Automated count 2.4 U 0.6-4.6 N [facility] Monocytes/100 leukocytes in Blood by Automated count 8.4 % 4-12 N [facility] Monocytes [#/volume] in Blood by Automated count 0.6 U 0.2-1.2 N [facility] Eosinophils/100 leukocytes in Blood by Automated count 2.4 % 0-7 N [facility] Eosinophils [#/volume] in Blood by Automated count 0.2 U 0.0-0.5 N [facility] Basophils/100 leukocytes in Blood by Automated count 0.8 % 0.4-1 .3 N [facility] Basophils [#/volume] in Blood by Automated count 0.1 U 0.0-0.2 N [facility] NUCLEATED RED BLOOD CELL 0 % [facility] NUCLEATED RED BLOOD CELL# 0 [facility] Immature granulocytes [Presence] in Blood by Automated count 0-2 N [facility] Immature granulocytes [#/volume] in Blood by Automated count 0.1 U 0-0.1 N [facility] Manual Differential panel - Blood NO [facility] ID Date Data Source [id number] 02/01/2020 11:01:00 AM EDT [facility] Name Value Range Interpretation Code Description Data Sarah rce(s) Supporting Document(s) Urea nitrogen [Mass/volume] in Serum or Plasma 12 mg/dL 9-23 N [facility] Sodium [Moles/volume] in Serum or Plasma 142 mmol/L 132-146 [facility] Potassium [Moles/volume] in Serum or Plasma 4.6 mmol/L 3.5-5.5 [facility] Chloride [Moles/volume] in Serum or Plasma 114 mmol/L 99-109 Above high normal [facility] Carbon dioxide, total [Moles/volume] in Serum or Plasma 22 mmol/L 20 -31 [facility] Anion gap in Serum or Plasma 11 mmol/L 8-16 [facility] Glucose [Mass/volume] in Serum or Plasma 93 mg/dL 74-106 [facility] Creatinine 0.9 mg/dL 0.5-1.1 [facility] Glomerular filtration rate/1.73 sq M.pre dicted [Volume Rate/Area] in Serum or Plasma Greater Than 60 ABOVE 60 [facility] Alanine aminotransferase [Enzymatic acti vity/volume] in Serum or Plasma by With P-5'-P 20 U/L 10-49 [facility] ital Aspartate aminotransferase [Enzymatic ac tivity/volume] in Serum or Plasma by With P-5'-P 13 U/L 0-33 N [facility] pital Alkaline phosphatase [Enzymatic activity/volume] in Serum or Plasma 119 U/L 45-129 [facility] Calcium [Mass/volume] in Serum or Plasma 8.6 mg/dL 8.5-10.1 [facility] Bilirubin.total [Mass/volume] in Serum or Plasma 0.2 mg/dL 0.3-1.2 Below low normal [facility] Albumin [Mass/volume] in Serum or Plasma by Bromocresol purple (BCP) dye binding method 3.4 g/dL 3.2-4.8 N [facility] ital Protein [Mass/volume] in Serum or Plasma 7.3 g/dL 5.7-8.2 N [facility] ID Date Data Source [id number] 02/02/2020 08:09:00 AM EDT [facility] Name Value Range Interpretation Code Description Data Sarah rce(s) Supporting Document(s) IgG [Mass/volume] in Serum or Plasma 1159 mg/dL [phone] [facility] Performed at: RN - [facility] [place] [id number] Director: Constanza Saxena MD, Phone: [phone] ID Date Data Source [id number] 02/01/2020 11:02:00 AM EDT [facility] Name Value Range Interpretation Code Description Data Sarah rce(s) Supporting Document(s) Amylase [Enzymatic activity/volume] in Serum or Plasma 58 U/L 30- 118 N [facility] ID Date Data Source [id number] 02/01/2020 11:02:00 AM EDT [facility] Name Value Range Interpretation Code Description Data Sarah rce(s) Supporting Document(s) Lipase [Enzymatic activity/volume] in Serum or Plasma 147 U/L 73-3 93 N [facility] ID Date Data Source [id number] 02/01/2020 11:02:00 AM EDT [facility] Name Value Range Interpretation Code Description Data Sarah rce(s) Supporting Document(s) Bilirubin.direct [Mass/volume] in Serum or Plasma 0.1 mg/dL 0.0-0.2 N [facility] ID Date Data Source [id number] 02/01/2020 10:10:00 AM EDT [facility] ([facility] [...] [facility] [place]) ID Date Data Source [id number] 02/01/2020 10:10:00 AM EDT [facility] ([facility]) Name Value Range Interpretation Code Description Data Sarah rce(s) Supporting Document(s) IgG [Mass/volume] in Serum or Plasma 1159 mg/dL [phone] [facility] ([facility]) Performed at: [facility] [address] [id number] Heel Seat Trimmer: Constanza Saxena MD, Phone: [phone] ID Date Data Source [id number] 02/01/2020 10:10:00 AM EDT [facility] ([facility] [...] [facility] ([facility]) R10.13,D83.9 Laboratory test finding (navigational concept) 0.9 mg/dL 0 .5-1.1 Normal (applies to non-numeric results) [facility] ([facility]) R10.13,D83.9 Glomerular filtration rate/1.73 sq M.pre dicted [Volume Rate/Area] in Serum or Plasma Laboratory test result [facility] ([facility]) R10.13,D83.9 Glucose [Mass/volume] in Serum or Plasma 93 mg/dL 74-106 Normal (applies to non- numeric results) [facility] ([facility] ) R10.13,D83.9 Alanine aminotransferase [Enzymatic acti vity/volume] in Serum or Plasma by With P-5'-P 20 U/L 10-49 Normal (applies to non-numeric results) [facility] ([facility]) R10.13,D83.9 Aspartate aminotransferase [Enzymatic ac tivity/volume] in Serum or Plasma by With P-5'-P 13 U/L 0-33 Normal (applies to non-numeric results) [facility] ([facility]) R10.13,D83.9 Alkaline phosphatase [Enzymatic activity/volume] in Serum or Plasma 119 U/L 45-129 Normal (applies to non-numeric results) [facility] ([facility]) R10.13,D83.9 Calcium [Mass/volume] in Serum or Plasma 8.6 mg/dL 8.5-10. 1 Normal (applies to non-numeric results) [facility] ([facility]) R10.13,D83.9 Bilirubin.total [Mass/volume] in Serum or Plasma 0.2 mg/dL 0.3-1.2 Below low normal [facility] ([facility] ) R10.13,D83.9 Albumin [Mass/volume] in Serum or Plasma by Bromocresol purple (BCP) dye binding method 3.4 g/dL 3.2-4.8 Normal (applies to non-numeric results) [facility] ([facility] [place]) R10.13,D83.9 Protein [Mass/volume] in Serum or Plasma 7.3 g/dL 5.7-8.2 Normal (applies to non-numeric results) [facility] ([facility] [place]) R10.13,D83.9 ID Date Data Source [id number] 02/01/2020 10:10:00 AM EDT [facility] ([facility] [...] [facility] [place]) R10.13,D83.9 ID Date Data Source [id number] 01/31/2020 02:42:00 PM EDT [place] [id number] [phone] NAME SEX PT STATUS ACCOUNT NUMBER ISIDRA YANEZ REG REF [id number] ORDERING PHYSICIAN LOCATION MEDICAL RECORD NO. Jose Carlos Mendoza [id number] ATTENDING PHYSICIAN DATE OF DATE OF EXAM/TIME [...] rce(s) Supporting Document(s) ID Date Data Source [id number] 01/31/2020 09:06:00 AM EDT [facility] [address] [place] [address] [phone] NAME SEX PT STATUS ACCOUNT NUMBER ISIDRA YANEZ REG REF [id number] ORDERING PHYSICIAN LOCATION MEDICAL RECORD NO. Jose Carlos Mendoza [id number] ATTENDING PHYSICIAN DATE OF DATE OF EXAM/TIME [...] rce(s) Supporting Document(s) ID Date Data Source [id number] 01/21/2020 01:09:00 PM EDT [facility] Name Value Range Interpretation Code Description Data Sarah rce(s) Supporting Document(s) Leukocytes [#/volume] in Blood by Automated count 5.7 10*3/uL 4.45-10 .71 [facility] Erythrocytes [#/volume] in Blood by Automated count 3.76 10*6/uL 4.20-5.40 Below low normal [facility] Hemoglobin [Moles/volume] in Blood 12.2 g/dL 10.7-15.4 N [facility] Hematocrit [Volume Fraction] of Blood by Automated count 37.4 % 3 7-47 N [facility] Erythrocyte mean corpuscular volume [Ent itic volume] in Cord blood by Automated count 99.5 fL 80-96 Above high normal [facility] Erythrocyte mean corpuscular hemoglobin [Entitic mass] by Automated count 32.4 pg 27-31 Above high normal [facility] spital Erythrocyte mean corpuscular hemoglobin concentration [Mass/volume] in Cord blood 32.6 g/dL 33-37 Below low normal [facility] Erythrocyte distribution width [Entitic volume] by Automated count 14 % 11-15 N [facility] Platelets [#/volume] in Blood by Automated count 269 10*3/uL 130-472 N [facility] Platelet mean volume [Entitic volume] in Blood 8.9 fL 9.1-13. 1 Below low normal [facility] Neutrophils/100 leukocytes in Blood by Automated count 48.5 % 41- 77 N [facility] Neutrophils [#/volume] in Blood by Automated count 2.7 U 1.7-7.6 N [facility] Lymphocytes/100 leukocytes in Blood by Automated count 40.0 % 14- 46 N [facility] Lymphocytes [#/volume] in Blood by Automated count 2.3 U 0.6-4.6 N [facility] Monocytes/100 leukocytes in Blood by Automated count 7.6 % 4-12 N [facility] Monocytes [#/volume] in Blood by Automated count 0.4 U 0.2-1.2 N [facility] Eosinophils/100 leukocytes in Blood by Automated count 2.3 % 0-7 N [facility] Eosinophils [#/volume] in Blood by Automated count 0.1 U 0.0-0.5 N [facility] Basophils/100 leukocytes in Blood by Automated count 1.1 % 0.4-1 .3 N [facility] Basophils [#/volume] in Blood by Automated count 0.1 U 0.0-0.2 N [facility] NUCLEATED RED BLOOD CELL 0 % [facility] NUCLEATED RED BLOOD CELL# 0 U [facility] Immature granulocytes [Presence] in Blood by Automated count 0-2 N [facility] Immature granulocytes [#/volume] in Blood by Automated count 0.0 U 0-0.1 N [facility] Manual Differential panel - Blood NO [facility] ID Date Data Source [id number] 01/21/2020 01:39:00 PM EDT [facility] Name Value Range Interpretation Code Description Data Sarah rce(s) Supporting Document(s) Hemoglobin A1c % 7.2 % 4.0-6.0 Above high normal [facility] The following ranges may be u sed for interpretation of results: HGBA1C degree of glucose control: Greater than 8%: Action Suggested * Less than 7%: Goal of Diabetic Therapy Less than 6%: NormalFactors such as duration of diabetes, adherence to therapyand the age of the patient should also be considered inassessing the degree of blood glucose control.* High risk of developing prison complications such asretinopathy, nephropathy, neuropathy, cardiopathy, etc. Some danger of hypoglycemic reaction in Type I diabetics.Some glucose intolerant individuals and "Sub Clinical"diabetics may demonstrate HGBA1C levels in this area. Glucose mean value [Moles/volume] in Blood Estimated f rom glycated hemoglobin 160 mg/dL [facility] An A1C of 7% - the goal of diabetic ther apy - is equivalentto an EAG of 154 mg/dl. ID Date Data Source [id number] 01/21/2020 01:52:00 PM EDT [facility] Name Value Range Interpretation Code Description Data Sarah rce(s) Supporting Document(s) Urea nitrogen [Mass/volume] in Serum or Plasma 12 mg/dL 9-23 N [facility] Sodium [Moles/volume] in Serum or Plasma 142 mmol/L 132-146 [facility] Potassium [Moles/volume] in Serum or Plasma 4.2 mmol/L 3.5-5.5 [facility] Chloride [Moles/volume] in Serum or Plasma 112 mmol/L 99-109 Above high normal [facility] Carbon dioxide, total [Moles/volume] in Serum or Plasma 21 mmol/L 20 -31 [facility] Anion gap in Serum or Plasma 13 mmol/L 8-16 [facility] Glucose [Mass/volume] in Serum or Plasma 99 mg/dL 74-106 [facility] Creatinine 0.8 mg/dL 0.5-1.1 [facility] Glomerular filtration rate/1.73 sq M.pre dicted [Volume Rate/Area] in Serum or Plasma Greater Than 60 ABOVE 60 [facility] Alanine aminotransferase [Enzymatic acti vity/volume] in Serum or Plasma by With P-5'-P 21 U/L 10-49 N [facility] ital Aspartate aminotransferase [Enzymatic ac tivity/volume] in Serum or Plasma by With P-5'-P 15 U/L 0-33 N [facility] pital Alkaline phosphatase [Enzymatic activity/volume] in Serum or Plasma 122 U/L 45-129 N [facility] Calcium [Mass/volume] in Serum or Plasma 8.8 mg/dL 8.5-10.1 N [facility] Bilirubin.total [Mass/volume] in Serum or Plasma 0.2 mg/dL 0.3-1.2 Below low normal [facility] Albumin [Mass/volume] in Serum or Plasma by Bromocresol purple (BCP) dye binding method 3.4 g/dL 3.2-4.8 [facility] ital Protein [Mass/volume] in Serum or Plasma 7.2 g/dL 5.7-8.2 [facility] ID Date Data Source [id number] 01/22/2020 08:09:00 AM EDT [facility] Name Value Range Interpretation Code Description Data Sarah rce(s) Supporting Document(s) 25-Hydroxyvitamin D2+25-Hydroxyvitamin D3 [Mass/volume ] in Serum or Plasma 51.6 ng/mL 30.0-100.0 [facility] Vitamin D deficiency has been defined by the [place] [employer] and an Endocrine Society practice guideline as alevel of serum 25-OH vitamin D less than 20 ng/mL (1,2).The Endocrine Society went on to further define vitamin Dinsufficiency as a level between 21 and 29 ng/mL (2).1. IOM ([employer]). 2010. Dietary reference intakes for calcium and D. [place]: The National Academies Press.2. Deena SANCHEZ, Theodore CORTEZ, Valerie SLAUGHTER, et al. Evaluation, treatment, and prevention of vitamin D deficiency: an Endocrine Society clinical practice guideline. JCEM. 2010; 96(1):1911- 30.Performed at: RN - [facility] [address], [place], [place] [id number] Director: Constanza Saxena MD, Phone: [phone] ID Date Data Source [id number] 01/21/2020 01:52:00 PM EDT [facility] Name Value Range Interpretation Code Description Data Sarah rce(s) Supporting Document(s) Triglycerides 107 mg/dL 0-150 N [facility] Cholesterol 175 mg/dL 120-200 N [facility] HDL Cholesterol 82 mg/dL [facility] HDL Less than 40 mg/dL: Major risk for CHDHDL Greater than 59 mg/dL: Low risk for CHD LDL Cholesterol, Calc 72 mg/dL 0-100 [facility] ID Date Data Source [id number] 01/16/2020 02:15:00 PM EDT [facility] Name Value Range Interpretation Code Description Data Sarah rce(s) Supporting Document(s) Follow Up [facility] RVHZIl8nIwUGQvDrCPZlDddTPCepCPwoLYMxN3R2HQqwBd6FGTnwrhIcBWIqKi5+DMVaDI8zvn8vAJWp gMy [file] vp legal affairs/qx8GJ27K3f/kuc5b+b+BknaUP4FLhOsHLwloZZzNuwD8MtHdreHEY9k5QYA2O1hZSdmFunZzHMuBQ [file] 71x/x/+5XpZIOF9YzS+07XvPc9Bi+xFDCryquqVfkQEPAOR/A4hSw9kKq5+OrND3QCY6UVEjMTjt+Jose Ramon [file] PmlsBHpX/7zZqEbPt3sXTkxcb5vTQ99CMLzf6Yj+Luis Carlos [file] shSUT/CLINICAL PHARMACY MANAGER+zDW+mak1TrtxhrDYbjiRG9gvaQ0x052bwalH3Dmtpjpqc1emG3El/Wt7CqYeT1k9XXKZz+S [file] qSuu/hWxdD6C/b4f/y/sv7L++/civil engineering design draftsperson/y/sv7L+//Lt7/G/9lPQBuVZXHCTyhNa9qD19s8FUNA8hk5xr+yp [file] 8/QGktnPob6RtfQ7e5Al2ekJJ+IQTlSA76Frn5t0PAu4cFIFxdSwrpCSAXaNmop9/CLINICAL PHARMACY MANAGER/X4R0fgVnNrKJ [file] ibgLML6spHkOErSxx62T4Ob9KGJ5ioq7NIe3KiB6ouxvs+civil engineering design draftsperson/wWByxHiFu/oWq1OC5V3xEPS8E4D2TEX [file] vEWmKEUES3vqOcH0wtFNZ8i33+0y4ZktFJdPNDZOEKv4NC/riTwzWwq3p3ifqSk99vsFJuqT7OqWP/RIGGING FOREMAN [file] dispatcher tugboat+YR+Okps2Ktp1qzGYn7uK+XOXR3ynOV8L/0sIVk [file] LUIS CARLOS+WaslWKH2mB7AwdmGTRQTb/3fBgxqL5/BjvW0HyRVl0uZ47dq7qlVGytgQtMfqqxIK3tlXXMnWkyA6 [file] vRhuod0JhiI6TG3OOcyos9SmDKP0K1bo47se9219jf88ueX7cq9o2Mr05QtW5xQijvzPxzunUQ7+s+del toro [file] 3umHcOMZPb7oxJm+cqr0RyGLyI1/1w4Whvwlmmy5pnqfaW9/news specialist+n9ykaHDpyX+Psa4LAbr9fgu/OBP6 [file] gJgPdQmwM2pk/Hu7CUm/Ac0tUDedXo5tIzFIyXS7jN56we+bjwGHQvcOS/Chris+2bhx6LC624Pd62psJh rl7dOwWQSgZ/u9ntrDpuiPLeqT1alK4GswhRQHzXm5 E7c8qRDBtLx1zVDaQub/rI9teJCKATwMlmwdW+BgLWV4WfXcwniKspTCV+c83bVI/Kpb1+TNx2mlx1sl oKFJkE7jpaNNQYJta89puPGKPlwEmjuFWEWxbzQ6RGHIwPox20+jSCXYuTh+vP6ricKWsZev9MfOizrO JhhmdNs19S9Lg8A6u7XXEtMsiowD5K5CpgfAiJfo/+ su2mJ0OuCKHMgxCLH4VhLyXur3pZ1w99snCp3GW67Len+b+6lvR/0bXUJ+NykW6fA4z0B8+YB0w65mv6 HP3ANQFHS+wDTL0TRXuSoGREJzkZBpaEmoKV/CDeoCKR5dQcaMMDwSoFuUJyDNAMhJXP27kzzEXG3zl9 czJxUJK8ybgk1I+A5V6cnsZxIsn0fWaicRZcKNugHE gTsykx7lu80CWRSEI+lsEEFb4db0doYq60xfoHLgpVSC85PI/t0mel8Vi8fISI+QTYISpAJRY4et3ZI/ gy/VJ7wk+WMmHozn8e2NpmMNrkaiZ9xieBCw5w8wuk8VFJXFhu9dkY+kfefgeip9K0P/p5Xp0tatyAzZ ZJhVYswHHa5KgyF4kEYyR04hleTAjmRZq3nnP6FQV+ CgtjVg03S9LdUN40t+gJpLuCCfbU9T2hsaFeJUj2wnOr/aoxxkMAhfRfxw2kULcMJ1gNJfTp95io7ET9 n4GaOO8aA6e+7Muh7kvHZ84JV+piz0do6V5l2X4R6bLiboDdUNjhW/X0T0sXo9Bcv94sFXN0n2Geh+RIGGING FOREMAN [file] SSprD1BvkMxmw+B+Del Toro++/0IhdoWWwsqc8h4HTWFWeR [file] 1m7aoWZe/wsr3P+Miroslava/wVpj3bQGf3wtGp67jrITMYE /civil engineering design draftsperson+R5GTbf2TavokdQueRGCb9p0m93iwAFyaA9SKYDfb+sduB/lF+B/hrNG/z0AWAV/BHHUiUs9jda/i 64eMGilW5oscoOmw9irbrFM++45Iut0a5PATcOdct6k4yl+/aj2n/S9QBHkWZQoQCFa5UIKsmd2DYd+I s04DM99TBFHM+HFGXbwKtnYWDoNmv6ah3GVYv1MPjt XOWF/jaDBQhCNVwxSDdi3qS7pFnzc1m+NHm7bwFtuonVu6+DeJ8gdwcQhLBE7pfgmlpdqoPjZx8IlqoA m0Rg6b+KDvktZqTaA6PzaMU0HZnUA0UIk8DBKbyvduxysuF6qoFBcR8hxtMJ6IMe6snutP/yrMvgI2NH TCD/k1EmLWLwZreCMu9Cno2A1o3bmHWDM99k5GhJST xipU1V+TBvpnoTKXpBqP6zYAS9RyJO9EkeszwomAW/6F/Bm4pQYvv74NB7++wWwV2eft3cSgiukuC8UI WOkV51UPKWdQB471Sf+lnFv7ME+9bAziVa8DA2S3lb1X8pTiWJ2ye9jdRYd+Ca7dI4vhH8lVpshjR/M0 Thor+mU8CrKyKkHGDG4uD02/J62uU3Ymgu6TIsWwAcf [file] ujnk5ZUXkgUcC7t7zGvb/0mIJakQq1ylhGP8+ixNzrPcI76Gch+OZdO/kZy2Fwb0ZRHny1aEChIy7+luis carlos [file] Luis Carlos/ydTw9N8vRZtn+Uhjx8A0ruYMo676gQ+cX+Y8526 [file] q4D/ZMk2JLr1gcfLxCDadtB5opc///n/RmI9oJJ [file] 8sbQFKOfyfFKmVj3ipSMzuxhMwXoOfn+QTboGQB2nUE3+luis carlos/4DEWTlurhWeeV982LE0a7cfQ+Q5oZlmC [file] ROe2oWkcrOluYKffXailQvUGEsTIysOiOdO7pybg6NO3tgiPtrG12uaOiL7ov4zsWatU/person investigator/E0glzj+ [file] qNVvKn2WYWA4BdM3IN8MMKWUF1Z= ID Date Data Source [id number] 12/24/2019 12:49:00 PM EDT [facility] Patient Name: ISIDRA YANEZ : 1960 Sex: F Pt Unit #: [id number] [facility] Provider: Visit Date/Time: 12/24/19 Primary Insurance: [facility] Secondary Insurance: Self Pay Intake Vital Signs [...] covered and using triple antibiotic. Currently uncovered Skiagrapher Required: No Is patient in pain?: Yes [...] Screening Screening Have you traveled outside of [facility] or [facility] in the last 14 days.: No Has patient experienced coronavirus symptoms: No [facility] Medical History Allergic rhinitis Anxiety [...] retinopathy: No Retinopathy details: Reports followed by credit administrator (Chaya) History of neuropathy: Yes Date of [...] sore throat Details: SEEING DR ZELAYA AND CRISTIAN BOTH WELL DR ANDRADE AND DR AMBRIZ [...] Route Admin Location Lot Number Expiration Date VTC Manufactu rer 0.5 mL IM Left deltoid [id number] 10/10/21 86190-464-58 [employer] VIS Given Date VIS Provided VIS Publication Date 12/24/19 Single Vaccine 19 Eligibility Eligibility Date Funding Source Not [facility] Eligible 12/24/19 Private Assessment Plan Assessment Plan (1) 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 Comment: Alternating highs and lows/hypo/ hyperglycemia, gastroparesis, neuropathy-managed with gabapentin Code(s): E11.8 - Type 2 diabetes mellitus with unspecified complications Category: Medical Plan - Lindsay Chapman, DO: today was supposed to be diabetes [...] Status: Chronic Category: Medical Plan - Lindsay Chapman DO: Nasal congestion, Intermittent cough negative COVID test earlier this month some of it is likely her baseline asthma and allergies she is following with infectious disease who has back 3- slides for her MAC and she is on triple baseline antibiotic for her MAC, she also follows with her dress cutter pulmonary Dr. Ambriz and gets weekly IVIG [...] Code(s): E78.2 - Mixed hyperlipidemia Category: Medical Cristobal - Lindsay Chapman, DO: Overdue for routine [...] R19.5 - Other fecal abnormalities Category: Medical Cristobal Chapman DO: She is seen by Dr. Anderson [...] rce(s) Supporting Document(s) ID Date Data Source [id number] 11/05/2019 06:27:00 AM EDT [facility] @11/05/19 0627: Aerobic ID Maddison added. R FLXG = CHGAERID.Moderate PMNsSquamous cells - FewSpecimen Quality - Fair @11/05/19 0627: Aerobic ID Maddison added. R FLXG = CHGAERID. Name Value Range Interpretation Code Description Data Sarah rce(s) Supporting Document(s) ID Date Data Source [id number] 12/18/2019 03:07:00 PM EDT [facility] @11/05/19 0627: Aerobic ID Maddison added. R FLXG = CHGAERID.Moderate PMNsSquamous cells - FewSpecimen Quality - Fair @11/05/19 0627: Aerobic ID Maddison added. R FLXG = CHGAERID. Name Value Range Interpretation Code Description Data Sarah rce(s) Supporting Document(s) Specimen preparation [Type] of Unspecified specimen Concentration [facility] ID Date Data Source [id number] 11/05/2019 06:27:00 AM EDT [facility] @11/05/19 0627: Aerobic ID Maddison added. R FLXG = CHGAERID.Moderate PMNsSquamous cells - FewSpecimen Quality - Fair @11/05/19 0627: Aerobic ID Maddison added. R FLXG = CHGAERID. Name Value Range Interpretation Code Description Data Sarah rce(s) Supporting Document(s) Bacteria identified in Sputum by Culture [facility] Quantiy of growth Few [facility] ID Date Data Source [id number] 12/18/2019 03:07:00 PM EDT [facility] @11/05/19 0627: Aerobic ID Maddison added. R FLXG = CHGAERID.Moderate PMNsSquamous cells - FewSpecimen Quality - Fair @11/05/19626: Aerobic ID Maddison added. R FLXG = CHGAERID. Name Value Range Interpretation Code Description Data Sarah rce(s) Supporting Document(s) Microscopic observation [Identifier] in Unspecified sp ecimen by Acid fast stain Negative [facility] Performed at: RN - [facility] [place] [id number] Director: Constnaza Saxena MD, Phone: [phone] ID Date Data Source [id number] 11/05/2019 06:27:00 AM EDT [facility] @11/05/19 06: Aerobic ID Maddison added. R FLXG = CHGAERID.Moderate PMNsSquamous cells - FewSpecimen Quality - Fair @11/05/19626: Aerobic ID Maddison added. R FLXG = CHGAERID. Name Value Range Interpretation Code Description Data Sarah rce(s) Supporting Document(s) TRIMETHOPRIM/SULFAMETHOXAZOLE <2/38 [place] sceptible. Indicates for microbiology susceptibilities only. [facility] Amoxicillin+Clavulanate [Susceptibility] by Minimum inhibitory concentration (TYLER) >16/8 Resistant. Indicates for microbiology antonio ceptibilities only. [facility] Ampicillin [Susceptibility] by Minimum inhibitory concentration (TYLER) >16 Resistant. Indicates for microbiology susceptibilities only. [facility] Ampicillin+Sulbactam [Susceptibility] by Minimum inhib itory concentration (TYLER) >16/8 Resistant. Indicates for microbiology susceptibi lities only. [facility] Cefotaxime [Susceptibility] by Minimum inhibitory concentration (TYLER) <2 Resistant. Indicates for microbiology susceptibilities only. [facility] Ceftriaxone [Susceptibility] by Minimum inhibitory concentration (TYLER) <1 Resistant. Indicates for microbiology susceptibilities only. [facility] Ciprofloxacin [Susceptibility] by Minimum inhibitory concentrati on (TYLER) <1 Susceptible. Indicates for microbiology susceptibilities only. [facility] Ertapenem [Susceptibility] by Minimum inhibitory concentration ( TYLER) <0.5 Susceptible. Indicates for microbiology susceptibilities only. [facility] Gentamicin [Susceptibility] by Minimum inhibitory concentration (TYLER) <2 Susceptible. Indicates for microbiology susceptibilities only. [facility] Imipenem [Susceptibility] by Minimum inhibitory concentration (M IC) <1 Susceptible. Indicates for microbiology susceptibilities only. [facility] Tetracycline [Susceptibility] by Minimum inhibitory concentratio n (TYLER) <4 Susceptible. Indicates for microbiology susceptibilities only. [facility] Tobramycin [Susceptibility] by Minimum inhibitory concentration (TYLER) <4 Susceptible. Indicates for microbiology susceptibilities only. [facility] Levofloxacin [Susceptibility] by Minimum inhibitory concentratio n (TYLER) <2 Susceptible. Indicates for microbiology susceptibilities only. [facility] Cefepime [Susceptibility] by Minimum inhibitory concentration (M IC) <8 Susceptible. Indicates for microbiology susceptibilities only. [facility] Piperacillin+Tazobactam [Susceptibility] by Minimum inhibitory concentration (TYLER) <16 Resistant. Indicates for microbiology antonio ceptibilities only. [facility] ID Date Data Source [id number] 12/18/2019 03:07:00 PM EDT [facility] @11/05/19 0627: Aerobic ID Maddison added. R FLXG = CHGAERID.Moderate PMNsSquamous cells - FewSpecimen Quality - Fair @11/05/19 0627: Aerobic ID Maddison added. R FLXG = CHGAERID. Name Value Range Interpretation Code Description Data Sarah rce(s) Supporting Document(s) Mycobacterium sp [Presence] in Unspecifi ed specimen by Organism specific culture Negative [facility] ital No acid fast bacilli isolated after 6 we eks.Performed at: RN - [facility] [place] [id number] Director: Constanza Saxena MD, Phone: [phone] ID Date Data Source [id number] 10/29/2019 08:07:00 AM EDT [facility] Patient Name: ISIDRA YANEZ : 1960 Sex: F Pt Unit #: [id number] [facility] Provider: Visit Date/Time: 10/29/19 Primary Insurance: [facility] Secondary Insurance: Self Pay Intake Intake Visit [...] refill on her loratadine, basaglar, admelog to [facility]. Taking her xanax TID and thinks it [...] still taking ranitidine nightly also. 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 not sure why she is only take it once a day? she hasn't had ranitidine filled since JUNE according to records at [facility] (still on med lisT) Allergies Sulfa (Sulfonamide [...] and colleagues, with an educational andrew from [employer]. HIV Testing Offer - ages 13-64 HIV [...] note to return to daycare/s chool/sports/work: No [facility] Medical History (Updated 10/29/19 @ 15:15 by [...] inco ntinence (Chronic) multiple gastric ulcers-DrBuniak scope -- (05/18/18) Myasthenia gravis (Chronic) Mycobacterium avium infection [...] Plan (1) Anxiety and depression: SNOMED Code(s): 567366090 Category: Medical Plan - Lindsay Chapman DO: She just recently increase Zoloft. She [...] A31.0 - Pulmonary mycobacterial infection SNOMED Code(s): 783426308 Category: Medical Plan - Lindsay Huitron, DO: [...] better she has follow-up appointments with her dress cutter in about 2 weeks and several specialty appointments coming up over the next couple months. (3) Mixed stress and urge urinary incontinence: Status: Chronic Comment: Wears undergarments Code(s): N39.46 - Mixed incontinence SNOMED Code(s): 565319148 Category: Medical Plan - Lindsay Chapman, DO: She wears undergarments and incontinence gets worse with cough she said her undergarments did come from the [employer] (4) Severe persistent asthma dependent on systemic steroids with acute exacerbation: Status: Chronic Comment: Patient changed back to pulmonary group and [place]-Dr. Ambriz and his nurse practitioner-PFTs do not show obstruction-she does not have COPD-she has severe persistent asthma Code(s): J45.51 - Severe persistent asthma with (acute) exacerbation; Z79.52 - intermediate (current) use of systemic steroids SNOMED Code(s): 176682648 Category: Medical Plan - Lindsay Chapman DO: She says things are status quo [...] diabetes mellitus with unspecified complications SNOMED Code(s): 58941509 Category: Medical Plan - Lindsay Chapman, DO: [...] - Other specified anxiety disorders SNOMED Code(s): 210984939 Category: Medical Plan - Lindsay Chapman DO: Severe anxiety over COVID some better with Xanax and increased dose of Zoloft depression screen still 12 declines referral to mental health (7) GERD (gastroesophageal reflux disease): Status: Chronic Comment: Was seeing Dr. Anderson, but changed to Dr. Guerra in 2018 Code(s): K21.9 - Gastro- esophageal reflux disease without esophagitis SNOMED Code(s): 904649223 Category: Medical Plan - Lindsay Chapman, DO: [...] other enabling machines and devices SNOMED Code(s): 53679337 Category: Medical Plan - Lindsay Chapman DO: Strict compliance with CPAP advised she [...] rce(s) Supporting Document(s) ID Date Data Source [id number] 10/15/2019 10:41:00 AM EDT [facility] Patient Name: ISIDRA YANEZ : 1960 Sex: F Pt Unit #: [id number] [facility] Provider: Visit Date/Time: 10/15/19 Primary Insurance: [facility] Secondary Insurance: Self Pay Intake Intake Visit Reasons: Anxiety Nurse Note: Patient with increased anxiety, depression. Medications reviewed. No complaints of acute pain. Skiagrapher Required: No Is patient in pain?: No [...] 500 mg PO QMWF blood sugar diagnostic ([employer]) Use strips to test sugar before meals [...] QID MDD 4 Lactobacillus acidophilus PO lancets (Padlet Delica Lancets) to be used AC and [...] and colleagues, with an educational andrew from [employer]. HIV Testing Offer - ages 13-64 HIV testing Offer: No Requirement for HIV testing offer been met?: Not in age range Hep C Testing Offered: No Hep C Requirement met: Patient reports past refusal SBIRT Annual Questionnaire Are you currently in recovery for alcohol or substance use?: No [facility] Medical History (Updated 10/15/19 @ [...] which responded to ster... 07/2016 asthmatic bronchitis 04-13-17 left lower and right middle lobe infiltrates [...] urge urinary incontinence (Chronic) multiple gastric ulcers- DrBuniak scope -8-18 (05/18/18) Myasthenia gravis (Chronic) Mycobacterium avium infection [...] in September and left a message with clinical program coordinator Tristian Thomas. I did not get the [...] frantic and extremely anxious. She called the cost manager several times. Even after I offered over the phone advice she still called crying and talking to covering providers nurse in tears. She had been told by s staff that she would get a call [...] not had a ref[facility]anax in [facility] a year. She does have myasthenia we [...] she got a call this morning from [facility] [facility] that her vazquez 19 virus swab was [...] Plan (1) Anxiety and depression: SNOMED Code(s): 019932766 Category: Medical Plan - Lindsay Houston-Tomy, DO: Patient has phoned the office and left messages a couple times recently in the past week and has been crying. She last had called both her cost manager and her infectious disease doctor leaving message [...] infectious disease office several times called her cost manager several times.Hans did return her call did put her on additional antibiotic and prednisone. [place] that if she did get COVID she [...] talk to her brother who is a reading assistant other than talking to him on the phone she is not interested in doing any formal counseling referral she will increase the Zoloft to 100 will plan on doing a 2 to 4-week follow-up visit to make sure things are improving. (2) Mixed hyperlipidemia: Status: Chronic Code(s): E78.2 - Mixed hyperlipidemia SNOMED Code(s): 701986758 Category: Medical Plan - Lindsay Chapman, DO: [...] Code(s): N39.46 - Mixed incontinence SNOMED Code(s): 992894857 Category: Medical Plan - Lindsay Chapman, DO: I will complete her paperwork as soon as it is forwarded to me she does not care to try medicine she has tried some oxybutynin and Vesicare in the past made her mouth dry made vision blurry and did not really help she prefers to just use the undergarments Orders Follow Up: Hopefully diabetes care sxbq-dv-updx within the next 3 months with lab work 40 minutes 2 to 4 weeks phone visit follow-up anxiety and depression (After) Afternoon phone visit please Electronically Signed By: <Electronically signed by Lindsay Chapman DO> Date/Time Signed: 10/15/19 1321 Name Value Range Interpretation Code Description Data Sarah rce(s) Supporting Document(s) ID Date Data Source [id number] 10/12/2019 01:57:00 PM EDT [facility] Patient Name: ISIDRA YANEZ : 1960 Sex: F Pt Unit #: [id number] [facility] Provider: Visit Date/Time: 10/12/19 Primary Insurance: [facility] Secondary Insurance: Self Pay Intake Vital Signs [...] Screening Screening Have you traveled outside of [facility] in the last 14 days.: No Has patient experienced coronavirus symptoms: Yes Coronavirus symptoms experienced: fever (None.) and lower respiratory illness (Productive cough.) [facility] Social History Does the Patient [...] rce(s) Supporting Document(s) ID Date Data Source [id number] 10/15/2019 03:06:00 AM EDT [facility] Name Value Range Interpretation Code Description Data Sarah rce(s) Supporting Document(s) COVID-19 BONNIE (SARS-CoV-2) Not Detected Not Detected [facility] Testing was performed using the bárbara(R) SARS-CoV-2 test.This test was developed and its performance characteristicsdetermined by [employer]. This test has not beenFDA cleared or [...] the authorization is terminated orrevoked sooner.Performed at: [facility] [id number] Director: Constanza Saxena MD, Phone: [phone] ID Date Data Source [id number] 10/12/2019 12:50:00 PM EDT [facility] Name Value Range Interpretation Code Description Data Sarah rce(s) Supporting Document(s) SARS CORONAVIRUS 2 RNA [facility] This lab was ordered by [facility] and reported by [facility]. ID Date Data Source [id number] 09/17/2019 09:40:00 AM EDT [facility], [facility] Name Value Range Interpretation Code Description Data Sarah rce(s) Supporting Document(s) Glucose, Fasting 87 mg/dL 70-100 Normal (applies to non-numeric results) [facility] ([facility], ) Blood Urea Nitrogen 13 mg/dL 7-18 Normal (applies to non-nume eleazar results) [facility] ([facility], ) Creatinine For GFR 0.87 mg/dL 0.55-1.30 Normal (applies to non -numeric results) [facility] ([facility], ) Potassium Serum 4.3 meq/L 3.5-5.1 Normal (applies to non-numeric results) [facility] ([facility], ) Sodium Level 141 meq/L 136-145 Normal (applies to non-numeric res ults) [facility] ([facility], ) Glomerular Filtration Rate Laboratory test result Normal (applies to non- numeric results) [facility], ) <content>Units are mL/min/1.73 m2</content>
<content></content>
<content>Chronic Kidney Disease Staging per NKF:</content>
<content></content>
<content>Stage I & II GFR >=60 Normal to Mildly Decreased</content>
<content>Stage III GFR 30- 59 Moderately Decreased</content>
<content>Stage IV GFR 15-29 Severely Decreased</content>
<content>Stage V GFR <15 Very Little GFR Left</content>
<content>ESRD GFR <15 on GOLD NIB GRINDER</content>
<content></content> Chloride Level 112 meq/L 98-107 Above high normal [facility] ([facility], ) Carbon Dioxide Level 21 meq/L 21-32 Normal (applies to non-num augustine results) [facility] ([facility], ) Anion Gap 8 meq/L 8-16 Normal (applies to non-numeric resul ts) [facility] ([facility]) Calcium Level 9.4 mg/dL 8.8-10.2 Normal (applies to non-numeric re sults) [facility] ([facility], ) Alt/SGPT 19 U/L 12-78 Normal (applies to non-numeric resul ts) [facility] Ast/Sgot 16 U/L 7-37 Normal (applies to non-numeric resul ts) [facility] ) Total Protein 7.2 GM/DL 6.4-8.2 Normal (applies to non-numeric re sults) [facility]) Bilirubin,Total 0.3 mg/dL 0.2-1.0 Normal (applies to non-numeric results) [facility]) Albumin 3.7 GM/DL 3.2-5.2 Normal (applies to non-numeric resul ts) [facility]) Alkaline Phosphatase 96 U/L 45-117 Normal (applies to non-num augustine results) [facility]) Albumin/Globulin Ratio 1.06 1.00-1.93 Normal (applies to non-numeric results) [facility]) ID Date Data Source [id number] 09/17/2019 09:40:00 AM EDT [facility]) Name Value Range Interpretation Code Description Data Sarah rce(s) Supporting Document(s) White Blood Count 6.6 10 4.0-10.0 Normal (applies to non-numeri c results) [facility]) Hemoglobin 12.6 g/dL 12.0-15.5 Normal (applies to non-numeric resul ts) [facility]) Red Blood Count 4.05 10 4.00-5.40 Normal (applies to non-numeric results) [facility]) Hematocrit 39.4 % 36.0-47.0 Normal (applies to non-numeric resul ts) [facility]) Mean Corpuscular HGB Conc 32.0 g/dL 32.0-36.5 Normal (applies to non-numeric results) [facility]) Mean Corpuscular Hemoglobin 31.1 pg 27.0-33.0 Norm al (applies to non-numeric results) [facility]) Mean Corpuscular Volume 97.3 fl 80.0-96.0 Above high normal [facility]) Platelet Count, Automated 325 10 150-450 Normal (applies to non-numeric results) [facility] [facility] Neutrophils % 53.6 % 36.0-66.0 Normal (applies to non-numeric re sults) [facility] ([facility]) Lymph % 33.7 % 24.0-44.0 Normal (applies to non-numeric resul ts) [facility] ([facility]) Red Cell Distribution Width 13.2 % 11.5-14.5 Norm al (applies to non-numeric results) [facility] ([facility]) Eos % 3.5 % 0.0-3.0 Above high normal [facility] ([facility]) [place] % 8.0 % 0.0-5.0 Above high [facility] Baso % 0.9 % 0.0-1.0 Normal (applies to non-numeric resul ts) [facility] ([facility]) Immature Granulocyte % 0.3 % 0-3.0 Normal (applies to non-n umeric results) [facility] ([facility]) Nucleated Red Blood Cell % 0.0 % 0-0 Normal (applies to n on-numeric results) [facility] ([facility]) Neutrophils # 3.5 10 1.5-8.5 Normal (applies to non-numeric re sults) [facility] Lymph # 2.2 10 1.5-5.0 Normal (applies to non-numeric resul ts) [facility] ([facility]) [place] # 0.5 10 0.0-0.8 Normal (applies to non-numeric resul ts) [facility] ([facility]) Eos # 0.2 10 0.0-0.5 Normal (applies to non-numeric resul ts) [facility] ([facility]) Baso # 0.1 10 0.0-0.2 Normal (applies to non-numeric resul ts) [facility] ([facility]) ID Date Data Source Comprehensive Metabolic Profile (CMP) 09/17/2019 12:00:00 AM EDT eCW1 ([facility]) Name Value Range Interpretation Code Description Data Sarah rce(s) Supporting Document(s) 87 70-100 GLUCOSE, FASTING eCW1 ([facility]) 13 7-18 BLOOD UREA NITROGEN eCW1 ([facility]) > 60.0 >45 GLOMERULAR FILTRATION RATE eCW 1 ([facility]) 0.87 0.55-1.30 CREATININE FOR GFR eCW1 ([facility]) 141 136-145 SODIUM LEVEL eCW1 ([facility]) 4.3 3.5-5.1 POTASSIUM SERUM eCW1 ([facility]) 9.4 8.8-10.2 CALCIUM LEVEL eCW1 ([facility]) 112 98-107 CHLORIDE LEVEL eCW1 ([facility]) 16 7-37 AST/SGOT eCW1 ([facility]) 21 21-32 CARBON DIOXIDE LEVEL eCW1 ([facility]) 0.3 0.2-1.0 BILIRUBIN,TOTAL eCW1 ([facility]) 19 12-78 ALT/SGPT eCW1 ([facility]) 7.2 6.4-8.2 TOTAL PROTEIN eCW1 ([facility]) 96 45-117 ALKALINE PHOSPHATASE eCW1 ([facility]) 1.06 1.00-1.93 ALBUMIN/GLOBULIN RATIO eCW1 ([facility]) 3.7 3.2-5.2 ALBUMIN eCW1 ([facility]) ID Date Data Source CBC with Differential 09/17/2019 12:00:00 AM EDT eCW1 ([facility]) Name Value Range Interpretation Code Description Data Sarah rce(s) Supporting Document(s) 6.6 4.0-10.0 WHITE BLOOD COUNT eCW1 ([facility]) 4.05 4.00-5.40 RED BLOOD COUNT eCW1 ([facility]) 39.4 36.0-47.0 HEMATOCRIT eCW1 ([facility]) 12.6 12.0-15.5 HEMOGLOBIN eCW1 ([facility]) 32.0 32.0-36.5 MEAN CORPUSCULAR HGB CONC eCW1 ([facility]) 97.3 80.0-96.0 MEAN CORPUSCULAR VOLUME e CW1 ([facility]) 13.2 11.5-14.5 RED CELL DISTRIBUTION WID TH eCW1 ([facility]) 31.1 27.0-33.0 MEAN CORPUSCULAR HEMOGLOB IN eCW1 ([facility]) 53.6 36.0-66.0 NEUTROPHILS % eCW1 ([facility]) 33.7 24.0-44.0 LYMPH % eCW1 ([facility]) 325 150-450 PLATELET COUNT, AUTOMATED eCW1 ([facility]) 0.9 0.0-1.0 BASO % eCW1 ([facility]) 8.0 0.0-5.0 MONO % eCW1 ([facility]) 3.5 0.0-3.0 EOS % eCW1 ([facility]) 3.5 1.5-8.5 NEUTROPHILS # eCW1 ([facility]) 2.2 1.5-5.0 LYMPH # eCW1 ([facility]) 0.1 0.0-0.2 BASO # eCW1 ([facility]) 0.2 0.0-0.5 EOS # eCW1 ([facility]) 0.5 0.0-0.8 MONO # eCW1 ([facility]) ID Date Data Source [id number] 06/30/2019 08:07:00 AM [facility] Name Value Range Interpretation Code Description Data Sarah rce(s) Supporting Document(s) IgG [Mass/volume] in Serum or Plasma 1045 mg/dL 700-1600 [facility] Performed at: RN - LabCojuan [id number] [id number] Director: Constanza Saxena MD, Phone: [phone] ID Date Data Source [id number] 06/29/2019 03:09:00 PM [facility] Name Value Range Interpretation Code Description Data Sarah rce(s) Supporting Document(s) Leukocytes [#/volume] in Blood by Automated count 8.1 10*3/uL 4.45-10 .71 N [facility] Erythrocytes [#/volume] in Blood by Automated count 3.92 10*6/uL 4.20-5.40 Below low normal [facility] Hemoglobin [Moles/volume] in Blood 12.2 g/dL 10.7-15.4 N [facility] Hematocrit [Volume Fraction] of Blood by Automated count 37.6 % 3 7-47 N [facility] Erythrocyte mean corpuscular volume [Ent itic volume] in Cord blood by Automated count 95.9 fL 80-96 N [facility] ital Erythrocyte mean corpuscular hemoglobin [Entitic mass] by Automated count 31.1 pg 27-31 Above high normal [facility] spital Erythrocyte mean corpuscular hemoglobin concentration [Mass/volume] in Cord blood 32.4 g/dL 33-37 Below low normal [facility] Erythrocyte distribution width [Entitic volume] by Automated count 14 % 11-15 N [facility] Platelets [#/volume] in Blood by Automated count 313 10*3/uL 130-472 N [facility] Platelet mean volume [Entitic volume] in Blood 9.2 fL 9.1-13.1 N [facility] Neutrophils/100 leukocytes in Blood by Automated count 58.0 % 41- 77 N [facility] Neutrophils [#/volume] in Blood by Automated count 4.7 U 1.7-7.6 N [facility] Lymphocytes/100 leukocytes in Blood by Automated count 30.5 % 14- 46 N [facility] Lymphocytes [#/volume] in Blood by Automated count 2.5 U 0.6-4.6 N [facility] Monocytes/100 leukocytes in Blood by Automated count 8.4 % 4-12 N [facility] Monocytes [#/volume] in Blood by Automated count 0.7 U 0.2-1.2 N [facility] Eosinophils/100 leukocytes in Blood by Automated count 2.2 % 0-7 N [facility] Eosinophils [#/volume] in Blood by Automated count 0.2 U 0.0-0.5 N [facility] Basophils/100 leukocytes in Blood by Automated count 0.5 % 0.4-1 .3 N [facility] Basophils [#/volume] in Blood by Automated count 0.0 U 0.0-0.2 N [facility] NUCLEATED RED BLOOD CELL 0 % [facility] NUCLEATED RED BLOOD CELL# 0 U [facility] Immature granulocytes [Presence] in Blood by Automated count 0-2 N [facility] Immature granulocytes [#/volume] in Blood by Automated count 0.0 U 0-0.1 N [facility] Manual Differential panel - Blood NO [facility] ID Date Data Source [id number] 06/29/2019 02:55:00 [...] of [place]) D83.9 ID Date Data Source [id number] 06/28/2019 01:14:00 PM [facility] [address] [place] [id number] [phone] NAME SEX PT STATUS ACCOUNT NUMBER ISIDRA YANEZ REG REF [id number] ORDERING PHYSICIAN LOCATION MEDICAL RECORD NO. Lesli RPA-C [facility] [id number] ATTENDING PHYSICIAN DATE OF DATE OF EXAM/TIME Lindsay Chapman DO 1960 06/28/19 / 1244 TYPE / EXAM Xray Lumbar spine complete [...] disease Reported By Ez Lynne MD on 12/19/19 1314 Signed By Ez Lynne MD on 06/28/19 1320 Date Time CC: Ez Lynne MD; Lindsay Chapman DO Techn: CARRC Trans Dt/Tm: Trans by: DT Prt Dt/Tm: [id number]: Total DLP = 0.00 mGy-cm Fluoroscopy Time (in secs): Name Value Range Interpretation Code Description Data Sarah rce(s) Supporting Document(s) ID Date Data Source [id number] 06/28/2019 01:12:00 PM [facility] [address] [place], [place] [id number] [phone] NAME SEX PT STATUS ACCOUNT NUMBER ISIDRA YANEZ REG REF [id number] ORDERING PHYSICIAN LOCATION MEDICAL RECORD NO. Lesli RPA-C [facility] [id number] ATTENDING PHYSICIAN DATE OF DATE OF EXAM/TIME [...] Trans Dt/Tm: Trans by: DT Prt Dt/Tm: [id number]: Total DLP = 0.00 mGy-cm Fluoroscopy Time (in secs): Name Value Range Interpretation Code Description Data Sarah rce(s) Supporting Document(s) ID Date Data Source [id number] 06/26/2019 04:03:00 PM [facility] Patient Name: ISIDRA YANEZ : 1960 Sex: F Pt Unit #: [id number] Location[facility] Provider: Visit Date/Time: 06/26/19 Primary Insurance: [facility] Secondary Insurance: Self Pay Intake Vital Signs [...] anymore since she isfeeling so much better. Skiagrapher Required: No Accompanied by: Self / Same [...] 40 mg PO DAILY blood sugar diagnostic ([employer]) Use strips to test sugar before meals [...] QID MDD 4 Lactobacillus acidophilus PO lancets ([employer] Delica Lancets) to be used AC and [...] No Followed by:: Sergio-allergy,Renetta-DMITRI/asthma,Hans-ID,Mandie-Neurology, Dr. [place] [facility] Fall Risk History of [...] and colleagues, with an educational andrew from [employer]. HIV Testing Offer - ages 13-64 HIV [...] agonist, steroid use and antibiotics Compliance with prison control therapy: miss a couple of doses [...] sore throat, productive cough or congestion Onset: [id number] Duration: constant Home treatments: rest Exacerbating factors: [...] retinopathy: No Retinopathy details: Reports followed by credit administrator (Recent eye exam in [place] partly due to starting methotrexate) History of [...] Patient changed back to pulmonary group and [place]-Dr. Ambriz and his nurse practitioner-PFTs do not show obstruction-she does not have COPD-she has severe persistent asthma Code(s): J45.51 - Severe persistent asthma with (acute) exacerbation; Z79.52 - long term care phlebotomist (current) use of systemic steroids SNOMED Code(s): 247951226 Category: Medical Plan - Lindsay Houston-Tomy, DO: I am again in review of [...] a copy of this progress note to [facility] so that they can make these [...] and see if that does not help. Trigence is malfunctioning so unfortunately I was not [...] A31.0 - Pulmonary mycobacterial infection SNOMED Code(s): 124416700 Category: Medical Plan - Lindsay Chapman, DO: She is about 2 months [...] up to normal with treatment with the dress cutter it isfelt that it most likely was [...] - Common variable immunodeficiency, unspecified SNOMED Code(s): 46141578 Category: Medical Plan - Lindsay Chapman, DO: From allergy point of view and immunology point of view Dr. denis feels she is doing well he isnot going to see her back for about 6 months he just measured her immunoglobulin levels and feels things are satisfactory (5) Mixed hyperlipidemia: Status: Chronic Code(s): E78.2 - Mixed hyperlipidemia SNOMED Code(s): 203333407 Category: Medical Cristobal - Lindsay Chapman DO: She is on atorvastatin she had [...] diabetes mellitus with unspecified complications SNOMED Code(s): 86431393 Category: Medical Cristobal - Lindsay Chapman, DO: E 11.8 is correct diagnosis for [...] - Vitamin D deficiency, unspecified SNOMED Code(s): 87191371 Category: Carine Chapman, DO: Continue vitamin D dose and recheck in August (8) Depression with anxiety: Status: Chronic Code(s): F41.8 - Other specified anxiety disorders SNOMED Code(s): 721107720 Category: Medical Plan - Lindsay Chapman, DO: [...] Myasthenia gravis without (acute) exacerbation SNOMED Code(s): 96371830 Category: Medical Cristobal - Lindsay Chapman, DO: Just saw a [...] by Lindsay Chapman DO> Date/Time Signed: 06/26/19 182 Name Value Range Interpretation Code Description Data Sarah rce(s) Supporting Document(s) ID Date Data Source [id number] 06/01/2019 08:19:00 PM [facility] [address] [place] [id number] [phone] NAME SEX PT STATUS ACCOUNT NUMBER ISIDRA YANEZ REG REF [id number] ORDERING PHYSICIAN LOCATION MEDICAL RECORD NO. Lindsay Chapman DO MAMMO [id number] ATTENDING PHYSICIAN DATE OF DATE OF EXAM/TIME Lindsay Chapman DO 1960 06/01/19 1455 TYPE / EXAM 3D DIG MAMMO SCREEN [...] with the assistance of Shirley, an FDA-approved computer-aided detection system for mammography. Reported By Kalani Vernon MD on 06/01/192018 Signed By Kalani Vernon MD on 06/01/192026 Date Time CC: Kalani Vernon MD; Lindsay Chapman DO Techn: BAKLE Trans Dt/Tm: Trans by: DT Prt Dt/Tm: 9: Total DLP = 0.00 mGy-cm : Total Radiation Dose = 0.0000 mSv Lifetime Dose: 25.9895 mSv Name Value Range Interpretation Code Description Data Sarah rce(s) Supporting Document(s) Procedure Social History Code Duration Value Status Description Data Source(s ) Smoking 04/21/2020 12:00:00 AM EDT Never Smoker completed Never S moker eCW1 ([facility]) Smoking 04/21/2020 12:00:00 AM EDT Never Smoker completed Never S moker eCW1 ([facility]) Smoking 04/21/2020 12:00:00 AM EDT Never Smoker completed Never S moker eCW1 ([facility]) Smoking 04/21/2020 12:00:00 AM EDT Never Smoker completed Never S moker eCW1 ([facility]) Smoking 04/21/2020 12:00:00 AM EDT Never Smoker completed Never S moker eCW1 ([facility]) Smoking 04/21/2020 12:00:00 AM EDT Never Smoker completed Never S moker eCW1 ([facility]) Smoking 04/14/2020 12:25:00 PM EDT Never smoker completed Never s [facility] Smoking 04/14/2020 12:25:00 PM EDT Never smoker completed Never s [facility] Smoking 04/14/2020 12:25:00 PM EDT Never smoker completed Never s [facility] Smoking 04/14/2020 12:25:00 PM EDT Never smoker completed Never s [facility] 04/14/2020 11:25:10 AM EDT Never smoker completed Never s [facility] 04/14/2020 11:25:10 AM EDT Never smoker completed Never s [facility] 04/14/2020 11:25:10 AM EDT Never smoker completed Never s [facility] 04/14/2020 11:25:10 AM EDT Never smoker completed Never s [facility] 04/14/2020 09:40:26 AM EDT Never smoker completed Never s [facility] Smoking 04/14/2020 09:40:00 AM EDT Never smoker completed Never s [facility] Smoking 04/10/2020 12:00:00 AM EDT Patient has never smoked co mpleted Patient has never smoked MED[facility] ([facility], ) Smoking 01/10/2020 12:00:00 AM EDT Patient has never smoked co mpleted Patient has never smoked MED[facility] ([facility] ) Smoking 01/10/2020 12:00:00 AM EDT Never Smoker completed Never S [facility] eCW1 ([facility]) 12/31/2019 09:20:00 AM EDT No completed No [facility] 12/31/2019 09:20:00 AM EDT No completed No [facility] 12/31/2019 09:20:00 AM EDT No completed No [facility] 12/31/2019 09:20:00 AM EDT No completed No [facility] 12/31/2019 09:20:00 AM EDT No completed No [facility] 12/31/2019 09:20:00 AM EDT No completed No [facility] 12/31/2019 09:20:00 AM EDT No completed No [facility] 12/31/2019 09:20:00 AM EDT No completed No [facility] 12/31/2019 09:20:00 AM EDT No completed No [facility] 12/31/2019 09:20:00 AM EDT No completed No [facility] 12/31/2019 09:20:00 AM EDT No completed No [facility] 12/31/2019 09:20:00 AM EDT No completed No [facility] 12/31/2019 09:20:00 AM EDT No completed No [facility] 12/31/2019 09:20:00 AM EDT No completed No [facility] 12/31/2019 09:20:00 AM EDT No completed No [facility] 12/31/2019 09:20:00 AM EDT No completed No [facility] 12/31/2019 09:20:00 AM EDT No completed No [facility] 12/31/2019 09:20:00 AM EDT No completed No [facility] Smoking 12/17/2019 12:00:00 AM EDT Never Smoker completed Never S marylu eCW1 ([facility]) 10/31/2019 04:35:00 PM EDT No completed No [facility] 10/31/2019 04:35:00 PM EDT No completed No [facility] 10/31/2019 04:35:00 PM EDT No completed No [facility] 10/11/2019 05:58:00 PM EDT No completed No [facility] 10/11/2019 05:58:00 PM EDT No completed No [facility] 10/11/2019 05:58:00 PM EDT No completed No [facility] 10/11/2019 05:58:00 PM EDT No completed No [facility] 10/11/2019 05:58:00 PM EDT No completed No [facility] 10/11/2019 05:58:00 PM EDT No completed No [facility] 10/11/2019 05:58:00 PM EDT No completed No [facility] 10/11/2019 05:58:00 PM EDT No completed No [facility] 10/11/2019 05:58:00 PM EDT No completed No [facility] Vital Signs ID Date Data Source UNK Name Value Range Interpretation Code Description Data Source(s) Body surface area Derived from formula 2.14 m2 2.14 m2 [facility] ([facility]) Body weight 115.668 kg 115.668 kg [facility] ([facility]) [place] body weight 115 [lb_av] 115 [lb_av] MEDEN T ([facility]) Body mass index (BMI) [Ratio] 45.2 kg/m2 45.2 k g/m2 [facility] ([facility]) Body weight 255.00 [lb_av] 255.00 [lb_av] MEDEN T ([facility]) Body height 63 [in_i] 63 [in_i] [facility] ([facility], ) 5'3" Diastolic blood pressure 68 mm[Hg] 68 mm[Hg] eCW1 ([facility]) Systolic blood pressure 114 mm[Hg] 114 mm[Hg] e CW1 ([facility]) Body temperature 98.5 [degF] 98.5 [degF] eCW1 ( [facility]) Respiratory rate 16 /min 16 /min eCW1 ([facility]) Heart rate 89 /min 89 /min eCW1 ([facility]) Body mass index (BMI) [Ratio] 45.52 kg/m2 45.52 kg/m2 eCW1 ([facility]) Body height 63 [in_i] 63 [in_i] eCW1 ([facility]) Body weight 257 [lb_av] 257 [lb_av] eCW1 ([facility]) Body surface area Derived from formula 2.15 m2 2.15 m2 [facility] ) Body weight 115.895 kg 115.895 kg [facility] ([facility], ) [place] body weight 115 [lb_av] 115 [lb_av] MEDEN T ([facility], ) Body mass index (BMI) [Ratio] 45.3 kg/m2 45.3 k g/m2 [facility] ([facility], ) Body weight 255.50 [lb_av] 255.50 [lb_av] MEDEN T ([facility], ) Body height 63 [in_i] 63 [in_i] [facility] ([facility], ) 5'3" Body temperature 96.1 [degF] 96.1 [degF] [facility] ([facility], ) Oxygen saturation in Arterial blood by Pulse oximetry 98 % 98 % [facility] ([facility], ) Heart rate 67 /min 67 /min [facility] ([facility], ) Diastolic blood pressure 68 mm[Hg] 68 mm[Hg] [facility] ) Systolic blood pressure 132 mm[Hg] 132 mm[Hg] M EDENT ([facility], ) Body mass index (BMI) [Ratio] 45.0 kg/m2 45.0 k g/m2 [facility] ([facility] Heart rate 77 /min 77 /min [...] blood pressure 74 mm[Hg] 74 mm[Hg] eCW1 ([facility]) Systolic blood pressure 132 mm[Hg] 132 mm[Hg] e CW1 ([facility]) Body mass index (BMI) [Ratio] 44.74 kg/m2 44.74 kg/m2 W1 ([facility]) Body height 63 [in_i] 63 [in_i] W1 ([facility]) Body weight 252.6 [lb_av] 252.6 [lb_av] eCW1 ([facility]) Body mass index (BMI) [Ratio] 44.7 kg/m2 [...] MEDENT ([facility]) 5'3" Body weight 252.12 [lb_av] 252.12 [lb_av] MEDEN T ([facility]) Body weight 112.606 kg 112.606 kg [facility] ([facility]) Body mass index (BMI) [Ratio] 44.0 kg/m2 44.0 k g/m2 [facility] ([facility]) Body weight 248.25 [lb_av] 248.25 [lb_av] MEDEN T ([facility]) Body height 63 [in_i] 63 [in_i] [facility] ([facility]) 5'3" Body temperature 69.9 [degF] 69.9 [degF] [facility] ([facility]) Oxygen saturation in Arterial blood by Pulse oximetry 98 % 98 % [facility] ([facility]) Heart rate 63 /min 63 /min [facility] ([facility]) Diastolic blood pressure 84 mm[Hg] 84 mm[Hg] [facility] ([facility]) Systolic blood pressure 132 mm[Hg] 132 mm[Hg] M EDENT ([facility]) Diastolic blood pressure 78 mm[Hg] 78 mm[Hg] eCW1 ([facility]) Systolic blood pressure 124 mm[Hg] 124 mm[Hg] e CW1 ([facility]) Body temperature 97.0 [degF] 97.0 [degF] eCW1 ( [facility]) Respiratory rate 18 /min 18 /min eCW1 ([facility]) Heart rate 94 /min 94 /min eCW1 ([facility]) Body mass index (BMI) [Ratio] 44.56 kg/m2 44.56 kg/m2 W1 ([facility]) Body height 63 [in_i] 63 [in_i] eCW1 ([facility]) Body weight 251.6 [lb_av] 251.6 [lb_av] eCW1 ([facility]) Body weight 115.214 kg 115.214 kg MEDENT ([facility]) Body mass index (BMI) [Ratio] 45.0 kg/m2 45.0 k g/m2 [facility] ([facility]) Body weight 254.00 [lb_av] 254.00 [lb_av] MEDEN T ([facility]) Body height 63 [in_i] 63 [in_i] [facility] ([facility]) 5'3" Diastolic blood pressure 66 mm[Hg] 66 mm[Hg] eCW1 ([facility]) Systolic blood pressure 112 mm[Hg] 112 mm[Hg] e CW1 ([facility]) Body temperature 98.2 [degF] 98.2 [degF] eCW1 ( [facility]) Respiratory rate 18 /min 18 /min eCW1 ([facility]) Heart rate 90 /min 90 /min eCW1 ([facility]) Body mass index (BMI) [Ratio] 44.63 kg/m2 44.63 kg/m2 W1 ([facility]) Body height 63 [in_us] 63 [in_us] eCW1 ([facility]) Body weight Measured 252 [lb_av] 252 [lb_av] eC W1 ([facility]) Diastolic blood pressure 62 mm[Hg] 62 mm[Hg] eCW1 ([facility]) Systolic blood pressure 112 mm[Hg] 112 mm[Hg] e CW1 ([facility]) Body temperature 97.9 [degF] 97.9 [degF] eCW1 ( [facility]) Respiratory rate 18 /min 18 /min eCW1 ([facility]) Heart rate 85 /min 85 /min eCW1 ([facility]) Body mass index (BMI) [Ratio] 44.28 kg/m2 44.28 kg/m2 W1 ([facility]) Body height 63 [in_us] 63 [in_us] eCW1 ([facility]) Body weight Measured 250 [lb_av] 250 [lb_av] eC W1 ([facility]) Body weight 114.307 kg 114.307 kg [facility] ([facility]) Body mass index (BMI) [Ratio] 44.6 kg/m2 44.6 k g/m2 [facility] ([facility]) Body weight 252.00 [lb_av] 252.00 [lb_av] MEDEN T ([facility]) Body height 63 [in_i] 63 [in_i] [facility] ([facility]) 5'3" Oxygen saturation in Arterial blood by Pulse oximetry 98 % 98 % [facility] ([facility]) Heart rate 80 /min 80 /min [facility] ([place] [facility] Diastolic blood pressure 72 mm[Hg] 72 mm[Hg] [facility] ([facility]) Systolic blood pressure 110 mm[Hg] 110 mm[Hg] [facility] Diastolic blood pressure 68 mm[Hg] 68 mm[Hg] eCW1 ([facility]) Systolic blood pressure 126 mm[Hg] 126 mm[Hg] e CW1 ([facility]) Body temperature 98.4 [degF] 98.4 [degF] W1 ( [facility]) Respiratory rate 18 /min 18 /min eCW1 ([facility]) Heart rate 91 /min 91 /min eCW1 ([facility]) Body mass index (BMI) [Ratio] 44.46 kg/m2 44.46 kg/m2 eCW1 ([facility]) Body height 63 [in_us] 63 [in_us] eCW1 ([facility]) Body weight Measured 251 [lb_av] 251 [lb_av] eC W1 ([facility]) Diastolic blood pressure 72 mm[Hg] 72 mm[Hg] eCW1 ([facility]) Systolic blood pressure 124 mm[Hg] 124 mm[Hg] e CW1 ([facility]) Body temperature 97.8 [degF] 97.8 [degF] eCW1 ( [facility]) Respiratory rate 20 /min 20 /min eCW1 ([facility]) Heart rate 99 /min 99 /min eCW1 ([facility]) Body mass index (BMI) [Ratio] 45.87 kg/m2 45.87 kg/m2 eCW1 ([facility]) Body height 63 [in_us] 63 [in_us] eCW1 ([facility]) Body weight Measured 259 [lb_av] 259 [lb_av] eC W1 ([facility]) ID Date Data Source [id number] 05/15/2020 04:35:00 PM EST [facility] Name Value Range Interpretation Code Description Data Source(s) WEIGHT RECORDED 256.00 pounds 256.00 pounds [facility] Height 63 Inches 063 Inches [facility] Patient Treatment Plan of Care Planned Activity Planned Date Details Description Data Source (s) Albuterol 0.833 MG/ML / Ipratropium [place] 0.167 MG/M L Inhalant Solution 06/19/2020 12:00:00 AM EST eCW1 ([facility]) cefdinir 300 MG Oral Capsule 06/19/2020 12:00:00 AM EST eCW1 ([facility]) Albuterol 0.833 MG/ML / Ipratropium [place] 0.167 MG/M L Inhalant Solution 06/19/2020 12:00:00 AM EST eCW1 ([facility]) cefdinir 300 MG Oral Capsule 06/19/2020 12:00:00 AM EST eCW1 ([facility]) Albuterol 0.833 MG/ML / Ipratropium [place] 0.167 MG/M L Inhalant Solution 06/19/2020 12:00:00 AM EST eCW1 ([facility]) cefdinir 300 MG Oral Capsule 06/19/2020 12:00:00 AM EST eCW1 ([facility]) montelukast 10 MG Oral Tablet 11/20/2019 12:00:00 AM EDT eCW1 ([facility]) Loratadine 10 MG Oral Tablet 11/20/2019 12:00:00 AM EDT eCW1 ([facility]) Levofloxacin 500 MG Oral Tablet 11/08/2019 12:00:00 AM EDT eCW1 ([facility]) Prednisone 20 MG Oral Tablet 11/08/2019 12:00:00 AM EDT eCW1 ([facility]) Prednisone 10 MG Oral Tablet 10/12/2019 12:00:00 AM EDT eCW1 ([facility]) cefdinir 300 MG Oral Capsule 09/24/2019 12:00:00 AM EDT eCW1 ([facility]) AirDuo RespiClick 113/14 113-14 MCG/ACT 09/18/2019 12:00:00 AM EDT eCW1 ([facility]) AirDuo RespiClick 113/14 113-14 MCG/ACT 09/18/2019 12:00:00 AM EDT eCW1 ([facility]) AirDuo RespiClick 113/14 113-14 MCG/ACT 09/18/2019 12:00:00 AM EDT eCW1 ([facility]) cefdinir 300 MG Oral Capsule 07/23/2019 12:00:00 AM EST eCW1 ([facility]) Acidophilus Probiotic Blend - 06/06/2019 12:00:00 AM EST eCW1 ([facility])
[2020-07-30] MEDS ORDERED: ACETAMINOPHEN TAB 650MG DOSE (2X325MG) PO ONE (21:00)
[2020-07-30] MEDS ORDERED: dexameTHASONE 20MG/5ML VIAL (J1100 PER 1MG) IV ONE (21:00)
[2020-07-30] MEDS: COMBIVENT RESPIMAT 100-20MCG INHALER 4GM INH SCH (21:00)
[2020-07-30 21:05] LABS: BASO % 0.5 % (0.0-1.0); HEMATOCRIT 41.3 % (36.0-47.0); HEMOGLOBIN 13.3 g/dl (12.0-15.5); LYMPH % 22.3 % (24.0-44.0); MEAN CORPUSCULAR HEMOGLOBIN 31.7 pg (27.0-33.0); MEAN CORPUSCULAR HGB CONC 32.2 g/dl (32.0-36.5); MEAN CORPUSCULAR VOLUME 98.3 fl (80.0-96.0); MONO # 0.4 10^3/uL (0.0-0.8); MONO % 9.2 % (0.0-5.0); NEUTROPHILS # 2.9 10^3/uL (1.5-8.5); NEUTROPHILS % 67.5 % (36.0-66.0); PLATELET COUNT, AUTOMATED 169 10^3/uL (150-450); WHITE BLOOD COUNT 4.3 10^3/uL (4.0-10.0)
[2020-07-30 21:14] LABS: INR 0.97; PROTHROMBIN TIME 13.1 SECONDS (12.5-14.3)
[2020-07-30 21:15] LABS: PARTIAL THROMBOPLASTIN TIME 28.5 SECONDS (24.2-38.5)
[2020-07-30 21:17] LABS: D-DIMER QUANT 698.81 ng/ml (<500)
--- NOTE | 2020-07-30 21:18 | ECGEPIP ---
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
[2020-07-30 21:24] LABS: ALBUMIN 3.6 GM/DL (3.2-5.2); ALT/SGPT 33 U/L (12-78); BILIRUBIN,TOTAL 0.5 MG/DL (0.2-1.0); BLOOD UREA NITROGEN 10 MG/DL (7-18); C REACTIVE PROTEIN QUANTITATIV 2.39 MG/DL (0.00-0.30); CALCIUM LEVEL 8.6 MG/DL (8.8-10.2); CARBON DIOXIDE LEVEL 18 MEQ/L (21-32); CHLORIDE LEVEL 106 MEQ/L (98-107); CK-MB VALUE MASS < 1.0 NG/ML (<3.6); CPK CREATINE PHOSPHOKINASE 119 U/L (26-192); CREATININE FOR GFR 0.94 MG/DL (0.55-1.30); GLOMERULAR FILTRATION RATE > 60.0 (>45); GLUCOSE, FASTING 78 MG/DL (70-100); LDH LACTATE DEHYDROGENASE 315 U/L (84-246); MB/CK RELATIVE INDEX 0.84 (< OR =4); SODIUM LEVEL 132 MEQ/L (136-145); TOTAL PROTEIN 7.6 GM/DL (6.4-8.2); TROPONIN I < 0.02 NG/ML (< 0.10)
--- NOTE | 2020-07-30 22:01 | REPVR ---
PROCEDURE INFORMATION: Exam: XR Chest, 1 View Exam date and time: 07/30/2020 9:45 PM Age: 60 years old Clinical indication: Shortness of breath and other: Coronavirus workup TECHNIQUE: Imaging protocol: XR of the chest Views: 1 view. COMPARISON: CR CHEST 2 VIEWS 11/20/2019 9:14 AM FINDINGS: Lungs: Atelectasis left lung base. Possibility of a small of all vein focus of pneumonitis not absolutely excluded. Follow-up suggested as clinically directed. Remaining lungs are clear. Pleural space: Unremarkable. No pleural effusion. No pneumothorax. Heart/Mediastinum: Unremarkable. No cardiomegaly. Bones/joints: The spine demonstrates mild degenerative changes. IMPRESSION: Atelectasis left lung base. Possibility of a small of all vein focus of pneumonitis not absolutely excluded. Follow-up suggested as clinically directed. Electronically signed by: Karri Hernandez On 07/30/2020 22:00:44 PM
[2020-07-30] MEDS ORDERED: ISOVUE-370 76% 100ML VIAL As Ordered ONE (23:25)
--- NOTE | 2020-07-31 00:27 | REPVR ---
PROCEDURE INFORMATION: Exam: CT Angiography Chest With Contrast Exam date and time: 07/30/2020 10:42 PM Age: 60 years old Clinical indication: Shortness of breath; Additional info: SOB, covid, ddimer TECHNIQUE: Imaging protocol: Computed tomographic angiography of the chest with intravenous contrast. 3D rendering (Not supervised by radiologist): MIP and/or 3D reconstructed images were created by the technologist. Radiation optimization: All CT scans at this facility use at least one of these dose optimization techniques: automated exposure control; mA and/or kV adjustment per patient size (includes targeted exams where dose is matched to clinical indication); or iterative reconstruction. Contrast material: ISO; Contrast volume: 75 ml; Contrast route: INTRAVENOUS (IV); COMPARISON: CT ANGIO CHEST 02/05/2017 1:53 PM FINDINGS: Pulmonary arteries: No focal pulmonary artery filling defect to suggest acute pulmonary embolus. Aorta: No thoracic aortic aneurysm or dissection. Lungs: Pulmonary vascular/interstitial pattern does not suggest active pulmonary edema. Lungs demonstrate patchy multifocal bilateral peripheral ground-glass opacities in in a pattern consistent with COVID-19 pneumonia. No mass or central endobronchial lesion. Pleural space: No pleural effusion or pneumothorax. Heart: No overt cardiac enlargement or abnormal volume of pericardial fluid. Lymph nodes: Small, nonspecific mediastinal nodes are present. Bones/joints: Diffuse idiopathic skeletal hyperostosis (DISH) changes are present. IMPRESSION: 1. No evidence of acute pulmonary embolus. 2. Findings are consistent with mild changes of COVID-19 pneumonia Electronically signed by: Dorian Archuleta On 07/31/2020 00:26:41 AM
[2020-07-31] MEDS ORDERED: REMDESIVIR 200 MG in NS 250 ML IV ONE (01:15)
[2020-07-31] MEDS ORDERED: MOM 30ML SUSPENSION UDC PO PRN (01:15)
[2020-07-31] MEDS ORDERED: ACETAMINOPHEN TAB 650MG DOSE (2X325MG) PO PRN (01:15)
[2020-07-31] MEDS ORDERED: MAALOX 30 ML SUSP *UDC PO PRN (01:15)
--- NOTE | 2020-07-31 01:20 | HPEPDOC ---
[facility] Medical History & Physical Date of Admission Jul 31, 2020 Date of Service: Jul 31, 2020 Attending Physician: ZULEMA BAKER MD History and Physical TIME OF SERVICE: 1:25 AM CHIEF COMPLAINT:, Shortness of breath HISTORY OF PRESENT ILLNESS: This 60-year-old female presented with complaints of generalized weakness, malaise and difficulty breathing, therefore, her brought her to the [facility] for evaluation. She likely caught COVID 19 from her sister. Per discussion with Dr. Abad when they attempted to have the patient ambulate, her O2 sats dropped from 99% to 80%. REVIEW OF SYSTEMS. Incomplete because the patient was tachypneic PAST MEDICAL/ SURGICAL HISTORY: Myasthenia gravis. COPD Medical records state the patient has Chronic O2 dependent respiratory failure (2L) but today she is on RA Bronchiectasis Medical records state patient has Atrial fibrillation ? (in sinus rhythm today /paroxysmal ?) Depression/anxiety Osteoporosis GERD Restless leg syndrome IDDM Obesity TIA DMITRI, uses CPAP 9 cm H2O Cholecystectomy Hysterectomy Ovarian cystectomy Bilateral carpal tunnel surgery SOCIAL HISTORY: She doesn't smoke, drink alcohol or use recreational drugs FAMILY HISTORY: Cancer, coronary artery disease, cardiac arrest, nephrolithiasis ALLERGIES: Please see below. HOME MEDICATIONS: Please see below. PHYSICAL EXAMINATION: VITAL SIGNS: Please see below. GEN: well nourished / well developed/ appears unwell CVS: RRR/ no lower extremity edema LUNGS: coughing / using accessory muscles / there is decreased respiratory expansion/ breath sounds are deminshed ABDOMEN: soft & not tender with palpation MSK/EXTREMITIES: NCAT NEURO: CN 2-12 are grossly intact / speech is not dysarthric PSYCH: alert and oriented to person place and time/ able to understand and follo w all commands LABORATORY DATA: See below. IMAGING: Chest xray "IMPRESSION: Atelectasis left lung base. Possibility of a small of all vein focus of pneumonitis not absolutely excluded. Follow-up suggested as clinically directed. " CT chest "IMPRESSION: 1. No evidence of acute pulmonary embolus. 2. Findings are consistent with mild changes of COVID-19 pneumonia." MICROBIOLOGY: Please see below. ASSESSMENT: is a 60-year-old with a history of myasthenia gravis, COPD, bronchiectasis, sleep apnea, NIDDM, and obesity who will be admitted for management of hypoxemia when she ambulates that is likely secondary to Covid. PLAN: 1. COVID-19 qCSI score = 6 points = low /intermediate risk Plan: admit to Medical floor / continuous pulse ox / supplemental O2 / contact & air borne precautions / f/u repeat plts (if low indicates bad prognosis), CRP (if high indicates bad prognosis), troponins, INR, BMP, fibrinogen, INR, D- dimer, PT, PTT (if patient has DIC indicates bad prognosis), ferritin, LDH, procalcitonin (if elevated will help rule out bacterial PNA) VBG to assess for hypoxia / supplemental O2 up to 3L with target O2 sats between 92-95% / she doesn't have an infiltrate so I won't order procalcitonin, sputum cx, strep pneumo, legionella & mycoplasma, MRSA to r/o bacterial PNA / since her O2 sats have dropped will start IV dexamethasone / she is on several immunologics likely for myasthenia gravis & rifaxamin for an unclear reason therefore I will ask the day time team to consulting Neurology to ensure that there are no contraindications to giving Remdesivir 2. Acute COPD 2/2 COVID Medical records state the patient has Chronic O2 dependent respiratory failure ( 2L) but today she is on RA Plan: supplemental O2 / continuous pulse oximetry / aspiration precautions / DuoNeb Q6H, Levalbuterol Q4HP, steroids /singulair 3. DM2 Plan: diabetic diet / f/u accuchecks / / hypoglycemia protocol / sliding scale insulin / long acting insulin 65 units QHS / f/u A1C (target A1C is <7 to 6.5% / PCP may consider out pt Endo referral to switch the patient from basal bolus injection to continuous subcutaneous insulin infusion which has been shown to produced small improvements in A1C, improve QOL and reduce episodes of severe hypoglycemia 4. DMITRI Plan:CPAP 9 cm H2O 5. Myasthenia gravis Plan: resume home meds 6.GERD Plan: resume home meds 7. Restless leg syndrome Plan: resume home meds 8. TIA Plan: resume home meds 9. Depression/anxiety Plan: resume home meds 10. Obesity She has co-existing DM, DMITRI and HTN which complicates care She is a candidate for bariatric surgery Plan:the patient can f/u w his or her PCP for, financial systems analyst consult, to discuss staring Saxenda, which is indicated in patients with a BMI >27 with co-existing DM, HTN or dyslipidemia to help with weight control as an adjunct to exercise & referral to a Bariatric Surgeon / recommend cardiovascular exercise for 40 min 4-5 days a week DVT PROPHYLAXIS: lovenox & ASA DISPOSITION: home after more than 2 midnight's stay Vital Signs Vital Signs Date Time Temp Pulse Resp B/P (MAP) Pulse Ox O2 Delivery O2 Flow Rate FiO2 07/31/20 00:46 61 19 160/76 (104) 97 Room Air 07/30/20 19:20 101.1 Laboratory Data Labs 24H Laboratory Tests 2 07/30/20 19:34: Immature Granulocyte % (Auto) 0.5, Neutrophils (%) (Auto) 67.5H, Lymphocytes (%) (Auto) 22.3L, Monocytes (%) (Auto) 9.2H, Eosinophils (%) (Auto) 0.0, Basophils (%) (Auto) 0.5, Neutrophils # (Auto) 2.9, Lymphocytes # (Auto) 1.0L, Monocytes # (Auto) 0.4, Eosinophils # (Auto) 0.0, Basophils # (Auto) 0.0, Nucleated Red Bloo d Cells % (auto) 0.0, Prothrombin Time 13.1, Prothromb Time International Ratio 0.97, Activated Partial Thromboplast Time 28.5, Fibrinogen 548H, D-Dimer, Quantitative 698.81H, Anion Gap 8, Glomerular Filtration Rate > 60.0, Lactic Acid Level 1.2, Calcium Level 8.6L, Total Bilirubin 0.5, Aspartate Amino Transf (AST/SGOT) 44H, Alanine Aminotransferase (ALT/SGPT) 33, Alkaline Phosphatase 132H, Lactate Dehydrogenase 315H, Total Creatine Kinase 119, Creatine Kinase MB < 1.0, Creatine Kinase MB Relative Index 0.84, Troponin I < 0.02, C-Reactive Protein, Quantitative 2.39H, Total Protein 7.6, Albumin 3.6, Albumin/Globulin Ratio 0.9L CBC/BMP Laboratory Tests 07/30/20 19:34 Home Medications Scheduled Aspirin (Aspirin EC) 81 Mg Tablet.dr, 81 MG PO DAILY Atorvastatin Calcium (Atorvastatin Calcium) 40 Mg Tablet, 40 MG PO QHS Azithromycin (Azithromycin) 250 Mg Tablet, 250 MG PO DAILY TAKES AT NOON Cyanocobalamin (Vitamin B-12) (Vitamin B-12) 1,000 Mcg Tab, 1,000 MCG PO DAILY Dexamethasone (Dexamethasone) 6 Mg Tablet, 1 TAB PO ONCE Enalapril Maleate (Enalapril Maleate) 2.5 Mg Tab, 2.5 MG PO DAILY Esomeprazole Magnesium (Nexium) 40 Mg Capsule.dr, 40 MG PO BID Ethambutol HCl (Ethambutol HCl) 400 Mg Tablet, 1,600 MG PO QPM Famotidine (Famotidine) 20 Mg Tablet, 20 MG PO QHS Ferrous Sulfate (Ferrous Sulfate) 325 Mg Tablet, 325 MG PO BID Fluticasone Propion/Salmeterol (Fluticasone-Salmeterol 113-14) 1 Each Aer.pow.b a, 1 PUFF INH BID Folic Acid (Folic Acid) 1 Mg Tablet, 1 MG PO DAILY Gabapentin (Gabapentin) 300 Mg Cap, 300 MG PO TID Immun Glob G(IgG)/Pro/Iga 0-50 (Hizentra 10 Gram/50 ml Vial) 10 Gm/50 Ml Inj, 20 GM SC 1XWK SATURDAYS Insulin Glargine,Hum.rec.anlog (Basaglar Kwikpen U-100) 100 Unit/1 Ml Insuln.pen , 65 UNIT SC QHS Insulin Lispro (Admelog Solostar) 100 Unit/1 Ml Insuln.pen, 1 DOSE SC ACHS PER SLIDING SCALE Ipratropium/Albuterol Sulfate (Iprat-Albut 0.5-3(2.5) mg/3 ml) 1 Valerie Valerie, 1 NEB INH QID Loratadine (Loratadine) 10 Mg Tablet, 10 MG PO DAILY Methotrexate Sodium (Methotrexate) 2.5 Mg Tablet, 7.5 MG PO QWEEK SATURDAYS Montelukast Sodium (Singulair) 10 Mg Tab, 10 MG PO QPM DINNER TIME Multivitamins (Thera M Plus Tablet) 1 Tab Tab, 1 TAB PO DAILY Pyridostigmine [place] (Mestinon) 60 Mg Tab, 60 MG PO QID Rifampin (Rifampin) 300 Mg Capsule, 600 MG PO DAILY TAKES AT NOON Ropinirole HCl (Ropinirole HCl) 2 Mg Tablet, 2 MG PO BID AM/HS Ropinirole HCl (Ropinirole HCl) 1 Mg Tablet, 1 MG PO DAILY TAKES AT 1200 Sertraline HCl (Sertraline HCl) 100 Mg Tablet, 100 MG PO DAILY Topiramate (Topiramate) 50 Mg Tab, 100 MG PO BID Umeclidinium [place] (Incruse Ellipta) 62.5 Mcg Blst.w.dev, 1 PUFF INH DAILY Scheduled PRN Acetaminophen (Tylenol Extra Strength) 500 Mg Tablet, 1,000 MG PO Q6H PRN for PAIN / FEVER Albuterol Sulfate (Ventolin Hfa) 18 Gm Hfa.aer.ad, 2 PUFF INH Q4H PRN for SHORTNESS OF BREATH Allergies Coded Allergies: metformin (Verified Allergy, Severe, ANAPHALAXIS, 03/26/19) Sulfa (Sulfonamide Antibiotics) (Verified Allergy, Intermediate, HIVES, 03/26/19) fluoxetine (Verified Allergy, Unknown, 03/26/19) niacin (Verified Allergy, Unknown, 03/26/19) metoclopramide (Verified Adverse Reaction, Intermediate, TREMORS, 03/26/19) A-FIB/CHADSVASC A-FIB History Current/History of A-Fib/PAF?: No Current PO Anticoag Therapy: No ZULEMA BAKER MD Jul 31, 2020 01:20
--- OUTSIDE RECORDS SUMMARY | 2020-07-31 01:36 | CCD | Continuity of Care Document ---
Author Author [facility] Organization [facility] Address [address] [place] [address] Phone Support Name Relationship Address Phone Lindsay Chapman PRS [facility] [address] Meng Vasquez PRS [address] [place] [address] [place] [address] Doctor Provided, Family No PRS Unknown Unava ilable Yunier Mendoza [facility] [place] [address] Deniz Fields PRS [address] [place] [address] [place] [address] Zara Sparks PRS [address] [place] [address] Allergies, Adverse Reactions, Alerts Allergen Type Severity [...] (Vitamin D2) 50,000 unit c apsule Discontinued 88579 UNIT PO 1 Time Per Week 4 November 08, 2018 10:20pm December 26 9 6:28pm Gabapentin Discontinued 300 MG PO Three times a day November 08, 2018 10:21pm June 18, 2019 1:49pm Pyridostigmine [place] (Mestinon) 60 mg tablet Active 60 MG [...] snack Afluria Qd 2019-(3yr up)(PF) (flu vac [id number] 36mos up(PF)) Discontinued 60 MCG IM 1 [...] D2) (Vitamin D2) 50,000 UNITS capsule Discontinued 89934 UNITS PO WE@0900 April 07, 2016 8:22am [...] 2016 8:28am April 09, 2016 2:21pm Pyridostigmine [place] Discontinued 60 MG PO Four Times a [...] Times Per Day March 30, 2018 1:14pm [facility] 10[facility] Prednisone Discontinued 10 [...] July 14, 2019 8:27am Blood Sugar Diagnostic (Encore Interactive Verio Test Strips) st rip Discontinued STRIP [...] 6:28pm October 15, 2019 12:11pm Reference #: [id number] Ranitidine Hcl Discontinued 300 MG PO At Bedtime December 26, 2018 6:28pm January 13, 2019 9:00pm Montelukast Discontinued 10 MG PO At Bedtime December 26, 2018 6:28pm October 29, 2019 2:09pm Ergocalciferol (Vitamin D2) (Vitamin D2) 50,000 unit c apsule Discontinued 23273 UNIT PO 1 Time Per Week December [...] 8:32am Ergocalciferol (Vitamin D2) (Vitamin D2) Discontinued 87475 UNITS PO 3XWEEKLY October 18, 2011 6:47pm [...] 9:32am Ergocalciferol (Vitamin D2) (Vitamin D2) Discontinued 31111 UNITS PO 3XWEEKLY 14 January 18, 2012 [...] 8 :35am September 08, 2012 8:37am Pyridostigmine [place] (Mestinon) 60 mg tablet Discontinued 1 TAB PO Four Times a Day 0 February 24, 2012 8:44am April 07, 2016 8:31am [place]-3 Fatty Acids-Fish Oil (Fish Oil) 340-1,000 mg [...] 1:59pm Ergocalciferol (Vitamin D2) (Vitamin D2) Discontinued 48736 UNITS PO 1XMONTHLY March 14, 2013 1:57pm [...] 2013 5:21pm Lancets (Freestyle Lancets) 28 gauge [facility] Discontinued 1 EACH MC Once Per Day [...] 2013 8:44am Lancets (Freestyle Lancets) [facility] Dis[facility] 1 EACH MC Once Per [...] 2014 8:50pm Ergocalciferol (Vitamin D2) (Vitamin D2) 87360 UNIT ca psule Discontinued 2 CAPS PO [...] 2014 10:14am Ergocalciferol (Vitamin D2) (Vitamin D2) 68443 UNIT ca psule Discontinued 2 CAPS PO 2X MONTHLY 2 February 05, 2014 12:28pm February 05, 2 014 4:52pm Ergocalciferol (Vitamin D2) (Vitamin D2) 86648 UNIT ca psule Discontinued 1 CAPS PO [...] 21, 2014 12:14pm December 8:05am Flu Vacc [id number](4yr,Up)(Pf) (Fluvirin [id number] Syringe) 45 MCG/0.5 ML syringe Discontinued 0.5 [...] 2014 1:29pm Ergocalciferol (Vitamin D2) (Vitamin D2) 03771 UNIT ca psule Discontinued 1 CAPS PO [...] 2015 8:27am Ergocalciferol (Vitamin D2) (Vitamin D2) 44338 UNIT ca psule Discontinued 1 CAP PO 2 Times Per Week 8 February 04, 2015 4:56pm February 04 15 5:36pm Triamcinolone Acetonide Discontinued 1 GM TP 2 Times Per Day 60 February 04, 2015 5:3 6pm May 28, 2015 12:44pm 0.1% Ergocalciferol (Vitamin D2) (Vitamin D2) 04111 UNIT ca psule Discontinued 1 CAP PO [...] 2015 6:04pm Ergocalciferol (Vitamin D2) (Vitamin D2) 94987 UNIT ca psule Discontinued 1 CAP PO [...] 2016 6:55pm Ergocalciferol (Vitamin D2) (Vitamin D2) 92982 UNIT ca psule Discontinued 1 CAP PO [...] 2016 5:39pm Ergocalciferol (Vitamin D2) (Vitamin D2) 18802 UNIT ca psule Discontinued 1 CAP PO [...] D2) (Vitamin D2) 50,000 UNITS capsule Discontinued 56732 UNITS PO 1 Time Per Week 4 April 14, 2016 8:59am October 04, 2016 6:46am Triamcinolone Acetonide Discontinued 1 APPLIC TP 2 Times Per Da y 80 May 18, 2016 1:01pm November 08, 2016 2:34pm APPLY UNDER BOT [facility] Fluticasone Furoate-Vilanterol (Breo Ell ipta 100-25 [...] D2) (Vitamin D2) 50,000 UNITS capsule Discontinued 67374 UNITS PO 1 Time Per Week October [...] 3:02pm May 15, 2017 10:46pm 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 Nitrofurantoin Monohyd/M-Cryst (Macrobid 100 Mg Capsule) 100 [...] 12, 2017 4:40pm hold while taking cipro [id number] Atorvastatin (Lipitor) 20 MG tablet Discontinued 20 [...] D2) (Vitamin D2) 50,000 UNITS capsule Discontinued 83047 UNITS PO 1 Time Per Week March [...] D2) (Vitamin D2) 50,000 UNITS capsule Discontinued 12823 UNITS PO 1 Time Per Week June 30, 2017 10:03am November 09, 2017 3:27pm [place]-3 Acid Ethyl Esters (Lovaza*) 1 GM capsule [...] 26, 2017 12:51pm November 09, 2017 3:24pm [id number] dthen 10mgdaily OR DIRECTED Esomeprazole Magnesium (Nexium) [...] D2) (Vitamin D2) 50,000 UNITS capsule Discontinued 89387 UNITS PO 1 Time Per Week November 09, 2017 3:27pm July 21, 2 019 8:54am Loratadine Discontinued 10 MG PO Once Per Day November 09, 2017 3:27pm J anuary 2018 8:54am Topiramate (Topamax) 50 MG tablet Di scontinued 50 MG PO O nce Per Day November 09, 2017 3:27p m December 21, 2017 10:26am [place]-3 Acid Ethyl Esters (Lovaza*) 1 GM capsule [...] 10:31am November 08, 2018 7:46am Reference #: [id number] Alprazolam (Xanax) 0.25 MG tablet Di scontinued 0.25 MG PO Three times a day PRN 60 April 05, 2018 10:31am December 26, 2018 6:28pm Reference #: [id number] Ropinirole Discontinued 1 MG PO 2 Times Per Day 75 April 17, 2018 3:36pm October 22, 2018 5:19pm AND 0.5 TAB AT 2PM. Topiramate Discontinued April 20, 2018 10:24am April 112017 1:12pm Prednisone Discontinued 40 MG PO Once Per Day 60 April 20, 2018 10:29am May 03, 2018 8:50pm [id number],10mg until recheck OR DIRECTED Fluticasone Furoate-Vilanterol (Breo [...] D2) (Vitamin D2) 50,000 UNITS capsule Discontinued 84375 UNITS PO 1 Time Per Week 4 [...] 5:02pm 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 from e kennel manager Epinephrine Discontinued 0.3 MG SQ prn August 16, 2018 5:02pm September 12, 2018 11:53am 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 from e kennel manager Aspirin (Ecotrin) 81 MG tablet,delayed release (DR/EC) [...] D2) (Vitamin D2) 50,000 UNITS capsule Discontinued 07443 UNITS PO 1 Time Per Week October 22, 2018 8:25pm November 08 9 10:45am Ergocalciferol (Vitamin D2) (Vitamin D2) 50,000 UNITS capsule Discontinued 83097 UNITS PO 1 Time Per Week October [...] December 01, 2018 3:09pm Blood Sugar Diagnostic (CRMnextuch Verio Test Strips) st rip Discontinued 0 .ROUTE .MEDSUPPLY December 01, 2018 3:59pm December 26 9 6:28pm Use 1 test strip to test 4x per day Levofloxacin (Levaquin) 500 mg tablet Discontinued 500 MG PO daily 10 December 18, 2018 10: 02am December 19, 2018 1:33pm Ergocalciferol (Vitamin D2) (Vitamin D2) 50,000 unit c apsule Discontinued 00473 UNIT PO 1 Time Per Week January [...] Sugar Diagnostic (Onetouch Verio) strip Discontinued [facility] .[facility] January 26, 2019 4:36pm January 26, 2019 [...] D2) 1,250 mcg (50,000 unit) capsule Active 73489 UNIT PO 1 Time Per Week July [...] PRN October 15, 2019 12:10pm Reference #: [id number] Epinephrine (Epipen) 0.3 mg/0.3 mL auto-injector Active [...] from pharmacy,currently med unavailable in all strengths.[employer] Atorvastatin Discontinued 40 MG PO Every Evening [...] May 13, 2020 10:44am 6.8 10e3/uL 4.45-10.71 [facility], [address] [place] [address]77[address] White Blood Count February 01, 2020 9:10am 6.6 10e3/uL 4.45-10.71 [facility], [address] [place] [address] White Blood Count January 21, 2020 11:59am 5.7 10e3/uL 4.45-10.71 [facility], [address] [place] [address] 46863 Red Blood Count May 13, 2020 10:44am 3.95 10e6/uL 4.20-5.40 [facility], [address] [place] [address] Red Blood Count February 01, 2020 9:10am 3.94 10e6/uL 4.20-5.40 [facility], [address] [place] [address] Red Blood Count January 21, 2020 11:59am 3.76 10e6/uL 4.20-5.40 [facility], [address] [place] [address] 36040 Hemoglobin May 13, 2020 10:44am 12.7 g/dL 10.7-15.4 [facility], [address] [place] [address] 34245 Hemoglobin February 01, 2020 9:10am 12.7 g/dL 10.7-15.4 [facility], [address] [place] [address] Hemoglobin January 21, 2020 11:59am 12.2 g/dL 10.7-15.4 [facility], [address] [place] [address] 96439 Hematocrit May 13, 2020 10:44am 41.4 % 37-47 [facility], [address] [place] [address] Hematocrit February 01, 2020 9:10am 39.0 % 37-47 [facility], [address] [place] [address] Hematocrit January 21, 2020 11:59am 37.4 % 3747 [facility], [address] [place] [address] Mean Corpuscular Volume May 10:44am 104.8 fl 80-96 [facility], [address] [place] [address] Mean Corpuscular Volume January 31, 020 9:10am 99.0 fl 80-96 [facility], [address] [place] [address] Mean Corpuscular Volume January 20, 2 020 11:59am 99.5 fl 80-96 [facility], [address] [place] [address] Mean Corpuscular Hemoglobin May 13, 2020 10:44am 32.2 pg 27-31 [facility], [address] [place] [address] 43166 Mean Corpuscular Hemoglobin January 9:10am 32.2 pg 27-31 [facility], [address] [place] [address] Mean Corpuscular Hemoglobin January h2019 11:59am 32.4 pg 27-31 [facility], [address] [place] [address] 82045 Mean Corpuscular Hemoglobin Concent May 13, 2020 10:44am 30.7 g/dl 33-37 [facility], [address] [place] [address] Mean Corpuscular Hemoglobin Concent February 01, 2020 9:10am 32.6 g/dl [facility], [address] [place] [address] Mean Corpuscular Hemoglobin Concent January 21, 2020 11:59am 32.6 g/dl [address] [place] [address] LABORATORY, [address] [place] [address] Red Cell Distribution Width May 13, 2020 10:44am 14 % 1115 [facility], [address] [place] [address] Red Cell Distribution Width January 9:10am 13 % 11-15 [facility], [address] [place] [address] Red Cell Distribution Width January 11:59am 14 % 1115 [facility], [address] [place] [address] Platelet Count May 13, 2020 10:44am 288 10e3/ul 130-472 [facility], [address] [place] [address] Platelet Count February 01, 2020 9:10am 282 10e3/ul 130-472 [facility], [address] [place] [address] Platelet Count January 21, 2020 11:59am 269 10e3/ul 130-472 [facility], [address] [place] [address] Mean Platelet Volume May 13 10:44am 9.3 fl 9.1-13.1 [facility], [address] [place] [address] Mean Platelet Volume February 01, 2020 9:10a m 8.9 fl 9.1-13.1 [facility], [address] [place] [address] Mean Platelet Volume January 21, 2020 11:59am 8.9 fl 9.1-13.1 [facility], [address] [place] [address] Neutrophils (%) (Auto) May 13, 2020 10:44am 60.1 % [address] [facility], [address] [place] [address] Neutrophils (%) (Auto) January 31 9:10am 51.3 % [address] [facility], [address] [place] [address] Neutrophils (%) (Auto) January 20 11:59am 48.5 % [address] [place] [address] LABORATORY, [address] [place] [address] 61924 Absolute Neutrophil May 13 10:44am 4.1 # 1.7-7.6 [facility], [address] [place] [address] 78040 Absolute Neutrophil February 01, 2020 9:10am 3.4 # 1.7-7.6 [facility], [address] [place] [address] 27539 Absolute Neutrophil January 21, 2020 11:59a m 2.7 # 1.7-7.6 [facility], [address] [place] [address] 21001 Lymphocytes (%) (Auto) May 13, 2020 10:44am 28.9 % 14-46 [facility], [address] [place] [address] 23958 Lymphocytes (%) (Auto) January 31 9:10am 36.3 % 14-46 [facility], [address] [place] [address] 35219 Lymphocytes (%) (Auto) January 20 11:59am 40.0 % 14-46 [facility], [address] [place] [address] 27916 Lymphocytes # (Auto) May 13 10:44am 2.0 # 0.6-4.6 [facility], [address] [place] [address] 28230 Lymphocytes # (Auto) February 01, 2020 9:10a m 2.4 # 0.6-4.6 [facility], [address] [place] [address] 20840 Lymphocytes # (Auto) January 21, 2020 11:59am 2.3 # 0.6-4.6 [facility], [address] [place] [address] 53301 Monocytes (%) (Auto) May 13 10:44am 7.9 % 4-12 [facility], [address] [place] [address] 16280 Monocytes (%) (Auto) February 01, 2020 9:10a m 8.4 % 4-12 [facility], [address] [place] [address] 59360 Monocytes (%) (Auto) January 21, 2020 11:59am 7.6 % 4-12 [facility], [address] [place] [address] 21639 Monocytes # May 13, 2020 10:44am 0.5 # 0.2-1.2 [facility], [address] [place] [address] 01160 Monocytes # February 01, 2020 9:10am 0.6 # 0.2-1.2 [facility], [address] [place] [address] 36751 Monocytes # January 21, 2020 11:59am 0.4 # 0.2-1.2 [facility], [address] [place] [address] 22391 Eosinophils (%) (Auto) May 13, 2020 10:44am 2.0 % 0-7 [facility], [address] [place] [address] 33141 Eosinophils (%) (Auto) January 31 9:10am 2.4 % 0-7 [facility], [address] [place] [address] 83226 Eosinophils (%) (Auto) January 20 11:59am 2.3 % 0-7 [facility], [address] [place] [address] 95085 Absolute Eosinophils (CBC) May 13, 2020 10:44am 0.1 # 0.0-0.5 [facility], [address] [place] [address] 95182 Absolute Eosinophils (CBC) January 9:10am 0.2 # 0.0-0.5 [facility], [address] [place] [address] 96663 Absolute Eosinophils (CBC) January 11:59am 0.1 # 0.0-0.5 [facility], [address] [place] [address] 25362 Basophils (%) (Auto) May 13 10:44am 0.7 % 0.4-1.3 [facility], [address] [place] [address] 01498 Basophils (%) (Auto) February 01, 2020 9:10a m 0.8 % 0.4-1.3 [facility], [address] [place] [address] 39280 Basophils (%) (Auto) January 21, 2020 11:59am 1.1 % 0.4-1.3 [facility], [address] [place] [address] 68048 Absolute Basophils (CBC) May 10:44am 0.1 # 0.0-0.2 [facility], [address] [place] [address] 41106 Absolute Basophils (CBC) February 01, 2020 9:10am 0.1 # 0.0-0.2 [facility], [address] [place] [address] Absolute Basophils (CBC) January 21, 2020 11:59am 0.1 # 0.0-0.2 [facility], [address] [place] [address] 13332 Immature Granulocyte % (Auto) Novem2019 10:44am 0.4 % 0-2 [facility], [address] [place] [address] Immature Granulocyte % (Auto) January 092019 9:10am 0.8 % 0-2 [facility], [address] [place] [address] Immature Granulocyte % (Auto) January 082019 11:59am 0.5 % 0-2 [facility], [address] [place] [address] Absolute Immature Granulocyte (auto May 13, 2020 10:44am 0.0 # 0-0.1 [facility], [address] [place] [address] Absolute Immature Granulocyte (auto February 01, 2020 9:10am 0.1 # 0-0.1 [facility], [address] [place] [address] Absolute Immature Granulocyte (auto January 21, 2020 11:59am 0.0 # 0-0.1 [facility], [address] [place] [address] Add Manual Differential May 10:44am No [facility], [address] [place] [address] Add Manual Differential January 31 9:10am No [facility], [address] [place] [address] Add Manual Differential January 20 11:59am No [facility], [address] [place] [address] Blood Urea Nitrogen May 13 10:44am 13 mg/dL 04-02 [facility], [address] [place] [address] Blood Urea Nitrogen February 01, 2020 9:10am 12 mg/dL 04-02 [facility], [address] [place] [address] Blood Urea Nitrogen January 21, 2020 11:59a m 12 mg/dL 04-02 [facility], [address] [place] [address] Sodium Level May 13, 2020 10:44am 141 mmol/L 132-146 [facility], [address] [place] [address] 57246 Sodium Level February 01, 2020 9:10am 142 mmol/L 132-146 [facility], [address] [place] [address] 06825 Sodium Level January 21, 2020 11:59am 142 mmol/L 132-146 [facility], [address] [place] [address] 71898 Potassium Level May 13, 2020 10:44am 5.1 mmol/L 3.5-5.5 [facility], [address] [place] [address] 79339 Potassium Level February 01, 2020 9:10am 4.6 mmol/L 3.5-5.5 [facility], [address] [place] [address] 10352 Potassium Level January 21, 2020 11:59am 4.2 mmol/L 3.5-5.5 [facility], [address] [place] [address] 97317 Chloride Level May 13, 2020 10:44am 112 mmol/l 99-109 [facility], [address] [place] [address] 48904 Chloride Level February 01, 2020 9:10am 114 mmol/l 99-109 [facility], [address] [place] [address] 67199 Chloride Level January 21, 2020 11:59am 112 mmol/l 99-109 [facility], [address] [place] [address] 06261 Carbon Dioxide Level May 13 10:44am 22 mmol/l 20-31 [facility], [address] [place] [address] 56502 Carbon Dioxide Level February 01, 2020 9:10a m 22 mmol/l 20-31 [facility], [address] [place] [address] 26938 Carbon Dioxide Level January 21, 2020 11:59am 21 mmol/l 20-31 [facility], [address] [place] [address] 81298 Anion Gap May 13, 2020 10:44am 12 mmol/l 8-16 [facility], [address] [place] [address] 80765 Anion Gap February 01, 2020 9:10am 11 mmol/l 8-16 [facility], [address] [place] [address] 32386 Anion Gap January 21, 2020 11:59am 13 mmol/l 8-16 [facility], [address] [place] [address] 45362 Glucose Level May 13, 2020 10:44am 80 mg/dL 74-106 [facility], [address] [place] [address] Glucose Level February 01, 2020 9:10am 93 mg/dL 74-106 [facility], [address] [place] [address] Glucose Level January 21, 2020 11:59am 99 mg/dL 74-106 [facility], [address] [place] [address] Creatinine May 13, 2020 10:44am 0.9 mg/dL 0.5-1.1 [facility], [address] [place] [address] Creatinine February 01, 2020 9:10am 0.9 mg/dL 0.5-1.1 [facility], [address] [place] [address] Creatinine January 21, 2020 11:59am 0.8 mg/dL 0.5-1.1 [facility], [address] [place] [address] Glomerular Filtration Rate Calc Nov 2019 10:44am Greater than 60 ml/min ABOVE 60 [facility], [address] [place] [address] Glomerular Filtration Rate Calc February 01, 2020 9:10am Greater than 60 ml/min ABOVE 60 [facility], [address] [place] [address] Glomerular Filtration Rate Calc January 21, 2020 11:59am Greater than 60 ml/min ABOVE 60 [facility], [address] [place] [address] Alanine Aminotransferase (ALT/SGPT) May 13, 2020 10:44am 22 U/L 49 [facility], [address] [place] [address] Alanine Aminotransferase (ALT/SGPT) February 01, 2020 9:10am 20 U/L 49 [facility], [address] [place] [address] Alanine Aminotransferase (ALT/SGPT) January 21, 2020 11:59am 21 U/L 49 [facility], [address] [place] [address] Aspartate Amino Transf (AST/SGOT) [facility] 19 U/L 0-33 [facility], [address] [place] [address] Aspartate Amino Transf (AST/SGOT) [facility] 2019 9:10am 13 U/L 0-33 [facility], [address] [place] [address] [id number] Aspartate Amino Transf (AST/SGOT) Ju ly 2019 11:59am 15 U/L 0-33 [facility], [address] [place] [address] [id number] Alkaline Phosphatase May 13 10:44am 132 U/L 45-129 [facility], [address] [place] [address] Alkaline Phosphatase February 01, 2020 9:10a m 119 U/L 45-129 [facility], [address] [place] [address] [id number] Alkaline Phosphatase January 21, 2020 11:59am 122 U/L 45-129 [facility], [address] [place] [address] [id number] Amylase Level February 01, 2020 9:10am 58 U/L 30-118 [facility], [address] [place] [address] [id number] Lipase February 01, 2020 9:10am 147 U/L 73-393 [facility], [address] [place] [address] [id number] Calcium Level May 13, 2020 10:44am 9.2 mg/dL 8.5-10.1 [facility], [address] [place] [address] 13552 Calcium Level February 01, 2020 9:10am 8.6 mg/dL 8.5-10.1 [facility], [address] [place] [address] Calcium Level January 21, 2020 11:59am 8.8 mg/dL 8.5-10.1 [facility], [address] [place] [address] Total Bilirubin May 13, 2020 10:44am 0.4 mg/dL 0.3-1.2 [facility], [address] [place] [address] Total Bilirubin February 01, 2020 9:10am 0.2 mg/dL 0.3-1.2 [facility], [address] [place] [address] Total Bilirubin January 21, 2020 11:59am 0.2 mg/dL 0.3-1.2 [facility], [address] [place] [address] Direct Bilirubin February 01, 2020 9:10am 0.1 mg/dL 0.0-0.2 [facility], [address] [place] [address] [id number] Albumin May 13, 2020 10:44am 3.5 g/dL 3.2-4.8 [facility], [address] [place] [address] [id number] Albumin February 01, 2020 9:10am 3.4 g/dL 3.2-4.8 [facility], [address] [place] [address] Albumin January 21, 2020 11:59am 3.4 g/dL 3.2-4.8 [facility], [address] [place] [address] Serum Total Protein May 13 10:44am 7.5 g/dL 5.7-8.2 [facility], [address] [place] [address] Serum Total Protein February 01, 2020 9:10am 7.3 g/dL 5.7-8.2 [facility], [address] [place] [address] Serum Total Protein January 21, 2020 11:59a m 7.2 g/dL 5.7-8.2 [facility], [address] [place] [address] Triglycerides Level May 13 10:44am 134 mg/dL 0-150 [facility], [address] [place] [address] Triglycerides Level January 21, 2020 11:59a m 107 mg/dL 0-150 [facility], [address] [place] [address] Cholesterol Level May 13, 2020 10:44am 169 mg/dL 120-200 [facility], [address] [place] [address] Cholesterol Level January 21, 2020 11:59am 175 mg/dL 120-200 [facility], [address] [place] [address] HDL Cholesterol May 13, 2020 10:44am 85 mg/dL HDL Less than 40 mg/dL: Major risk for CHDHDL Greater than 59 mg/dL: Low risk for CHD [facility], [address] [place] [address] HDL Cholesterol January 21, 2020 11:59am 82 mg/dL HDL Less than 40 mg/dL: Major risk for CHDHDL Greater than 59 mg/dL: Low risk for CHD [facility], [address] [place] [address] LDL Cholesterol, Calculated May 13, 2020 10:44am 58 mg/dL 0-100 [facility], [address] [place] [address] LDL Cholesterol, Calculated January 11:59am 72 mg/dL 0-100 [facility], [address] [facility] [address] Stool Helicobacter pylori Antigen Ju 2019 11:45am Negative Negative Performed at: RN - [facility] [address] [place], [place] [id number] Director: Constanza Saxena MD, Phone: [phone] [facility] , [address] [facility] [address] Immunoglobulin G February 01, 2020 9:10am 1159 mg/dL Performed at: RN - [facility] [address] [id number] Director: Constanza Saxena MD, Phone: [phone] [facility] , [address] [facility] [address] Vitamin D 25-Hydroxy May 13 10:44am 60 ng/mL Vitamin D Status 25-OH Vitamin D:Deficiency: <20 ng/mLInsufficiency: 20 - 29 ng/mLOptimal: > or = 30 ng/mLFor 25-OH Vitamin D testing on patients onD2-supplementation and patients for whom quantitationof D2 and D3 fractions is required, the QuestAssureD(TM)25- OH VIT D, (D2,D3), LC/MS/MS is recommended: ordercode 36490 (patients >2yrs).See Note 1Note 1For additional information, please refer [email or web address](This link is being provided for informational/educational purposes only.)THIS TEST WAS PERFORMED AT:[facility] [address]AHSAN CANSECO MD [facility] Vitamin D 25-Hydroxy January 21, 2020 11:59am 51.6 ng/mL Vitamin D deficiency has been defined by the [place] [employer] and an Endocrine Society practice guideline as alevel of serum 25-OH vitamin D less than 20 ng/mL (1,2).The Endocrine Society went on to further define vitamin Dinsufficiency as a level between 21 and 29 ng/mL (2).1. IOM ([place] [employer]). 2010. Dietary reference intakes for calcium and D. [place]: The National Academies Press.2. Deena MF, Theodore NC, Valerie ROMERO, et al. Evaluation, treatment, and prevention of vitamin D deficiency: an Endocrine Society clinical practice guideline. JCEM. 2010; 96(7):1911-30.Performed at: [facility] [address] [id number] Director: Constanza Saxena MD, Phone: [phone] [facility] , [address] [facility] [address] Coronavirus (COVID-19)(PCR) October 11:50am Not detected Not Detec mimi Testing was performed using the bárbara(R) SARS-CoV-2 test.This test was developed and its performance characteristicsdetermined by [employer]. This test has not beenFDA cleared or approved. This test has been authorized by under an Emergency Use Authorization (EUA). This testis only authorized for the duration of time the declarationthat circumstances exist justifying the authorization ofthe emergency use of in vitro diagnostic tests fordetection of SARS-CoV-2 virus and/or diagnosis of COVID-19infection under section 564(b)(1) of the Act, 21 U.S.C.360bbb-3(b)(1), unless the authorization is terminated orrevoked sooner.Performed at: [facility] [address] [id number] Director: Constanza Saxena MD, Phone: [phone] [facility] , [address] [place] [id number] Hemoglobin A1c May 13, 2020 10:44am 6.6 [...] control. 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 Some danger of hypoglycemic reaction in Type I diabetics.Some glucose intolerant individuals and "Sub Clinical"diabetics may demonstrate HGBA1C levels in this area. [facility], [address] [place] [address] Hemoglobin A1c January 21, 2020 11:59am 7.2 [...] glucose control. * High risk of developing nursing home complications such asretinopathy, nephropathy, neuropathy, cardiopathy, etc. Some danger of hypoglycemic reaction in Type I diabetics.Some glucose intolerant individuals and "Sub Clinical"diabetics may demonstrate HGBA1C levels in this area. [facility], [address] [place] [address] Estimated Average Glucose (eAG) Loren [facility] 2019 10:44am 143 mg/dl An A1C of 7% - the goal of diabetic ther apy - is equivalentto an EAG of 154 mg/dl. [facility], [address] [place] [address] Estimated Average Glucose (eAG) January 21, 2020 11:59am 160 mg/dl An A1C of 7% - the goal of diabetic therapy - is equivalentto an EAG of 154 mg/dl. [facility], [address] [place] [address] Microbiology Results Procedure Source Result Collection Date/Time Result Date/Time Result Comment Performing Site Stool Occult Blood (TYLER) Stool April 16, 2020 12:19pm April 12:54pm [address] [address] SARS Antigen (LFIA) Nasal [employer] Covid-19 Ag positive July 24, 2020 4:53pm July 24, 2020 6:41pm [facility], [address] [place] [address] AFB Specimen Processing Tissue Sputu m, Expectorate sputum November 03, 2019 8:06am November 04, 2019 3:06pm [facility] , [address] [facility] [address] Acid Fast Bacilli Smear Sputum, Expe ctorate sputum November 03, 2019 8:06am November 04, 2019 3:06pm [facility], [address] [facility] [address] Acid Fast Bacilli Culture Sputum, Ex pectorate sputum November 03, 2019 8:06am December 18, 2019 3:07pm [facility], [address] [facility] [address] Diagnostic Imaging Reports Report Dictated Date/Time Dictated By Status Radiology Report January 31, 2020 9:06am Manjinder Walters MD completed [facility] [address] [place] [address] [phone] NAME SEX PT STATUS ACCOUNT NUMBER ISIDRA CONNOR REG REF [id number] ORDERING PHYSICIAN LOCATION MEDICAL RECORD NO. Yunier Mendoza [id number] ATTENDING PHYSICIAN DATE OF DATE OF EXAM/TIME [...] 31, 2020 2:42pm Manjinder Walters MD completed [place] [address] [place] [id number] [phone] NAME SEX PT STATUS ACCOUNT NUMBER ISIDRA CONNOR REG REF [id number] ORDERING PHYSICIAN LOCATION MEDICAL RECORD NO. Yunier Mendoza [id number] ATTENDING PHYSICIAN DATE OF DATE OF EXAM/TIME [...] Trans Dt/Tm: Trans by: DT Prt Dt/Tm: 7767-6012: Total DLP = 0.00 mGy-cm Fluoroscopy Time [...] 2019 8:20am Health Care Proxy Phone Number [phone] December 31, 2019 8:20am Living Will No April 162019 1:23pm Chief Complaint and Reason for Visit Chief Complaint Call First Appt R05 Anxiety Anxiety follow-up A31.0,J44.9 Diabetes follow-up E78.5,E11.9,E55.9 PAIN R10.13,D83.9 Pre-op visit (general surgery) Annual Physical R19.5 E78.2,R19.5,E11.8,E55.9,A31.0,K92.1 Diabetes Telemed Visit Telemed Visit Telemed Visit Reason for Visit [...] Date Provider(s) Departed Physician/Provider Office Visit -Extended [facility] October 12, 2019 11:49am October 12, 2019 11:55am Meng Vasquez MD Registered Referred -Laboratory October 12, 2019 1:03pm Meng Vasquez MD Departed Physician/Provider Office Visit -[facility] October 15, 2019 9:48am October 15, 2019 12:04pm Lindsay Chapman Departed Physician/Provider Office Visit -[facility] October 29, 2019 12:49pm October 29, 2019 2:49pm Lindsay Chapman Registered Referred -Laboratory November 03, 2019 7:28am Dania Benites MD Departed Physician/Provider Office Visit -[facility] December 24, 2019 12:47pm December 24, 2019 2:32pm Lindsay Chapman Registered Referred -Laboratory January 21, 2020 11:49am Lindsay Chapman Registered Referred -Ultrasound January 31, 2020 7:39am KEVIN Almanza Registered Referred -Laboratory February 01, 2020 8:55am Deniz Fields MD Departed Physician/Provider Office Visit -[facility] March 21, 2020 2:15pm Septembe 2019 10:59pm Lindsay Chapman Departed Physician/Provider Office Visit -[facility] April 14, 2020 7:50am April 9:36am Lindsay Chapman Registered Referred -Lab Drop Off April 16, 2020 11:18am Lindsay Fields one Registered Referred -Laboratory May 13, 2020 10:29am Dania Benites MD Departed Physician/Provider Office Visit -[facility] May 30, 2020 3:21pm May 30, 2020 11:59pm Lindsay Chapman Departed Physician/Provider Office Visit -[facility] July 24, 2020 11:35am July 24, 2020 12:15pm Zara Sparks Registered Referred -Laboratory July 24, 2020 5:49pm Zara Sparks Departed Physician/Provider Office Visit -[facility] July 29, 2020 9:16am July 29, 2020 2:35pm Lindsay Chapman Departed Physician/Provider Office Visit -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 Home Phone: Payer Policy Id Coverage Id Subscriber's Name Subscriber Id Effective Date Expiration Date BC/BS [facility] [id number] ISIDRA CONNOR [id number] 2017 MEDICAID Self Pay Self N/A [facility] MEDICAID [id number] ISIDRA CONNOR [id number] Plan of Treatment Exacerbation of her asthma [...] may even be best to had to [facility] since all of the specialist that manage her mul tiple problems are available at [facility]. It matters less where she goes and just if she worsens that she gets to the ER. For long as I know her she always has some anxiety and depression but she talked about her granddaughter visiting talked about getting ready for her granddaughter's jonatan curtis they are keeping it small she is [...] She has been back to see her resident services coordinator partly because of her gastroparesis and [...] [facility] [...] really cannot afford She does follow with kennel manager so she can certainly discuss her breakthrough sym ptoms with the kennel manager but I think they are likely due [...] of treatment with triple antibiotics next [facility]. I want her to do another [...] has extensive ca re team. She sees [facility] for her ophthalmology care and recent cataract surgery. She sees Dr. andrade and Dr. Ambriz for treatment of her MAC and management of her recurrent pneumonia an d persistent exacerbation of asthma. [facility] [place] for her common variable immune deficiency syndrome [...] 2018 when s he was hospitalized at [facility] we are calling for that echo result. I manage her hyperlip idemia her diabetes her vitamin D deficiency her anxiety and depression and she is due for diabetes care next month so have ordered labs she also sees ENT in [place] and has had sinus surgery I felisha [...] 9 months ago it was finally discov shavond that the issue was Mycobacterium avium. Dr. Ambriz her scenic designer and Hans have worked to [facility] and her acute multi lobar infiltrates [...] methotrexate to treat her myasthenia gravis. Her kennel manager does have her on wee kly IVIG [...] cath which was completely clear no ac rosebud changes noted no new labs were obtained as her labs in mid January were actually much improved from previous A1c was 7.2 electrolytes were stable lipid panel is stable renal function was normal at 12 a nd 0.9 GFR greater than 60 sodium 142 potassium 4.6. She will repeat routine labs before her diabe [facility] care visit with me in 6 [...] can have blood sugar monitored at the [facility] and given Humalog coverage as needed [...] MAC, she also follows w ith her kennel manager pulmonary Dr. Ambriz and gets weekly IVIG [...] crying. She last had called both her scenic designer and her infect ious disease doctor leaving [...] her on additional antibiotic and predni sone. Nubieber that if she did get COVID she [...] talk to her brother who is a stockroom worker other than talking to him on the [...] she has follow-up appoin tments with her kennel manager in about 2 weeks and several specialty [...] her unde rgarments did come from the [employer] [facility] She says things are status quo [...]
--- OUTSIDE RECORDS SUMMARY | 2020-07-31 01:43 | CCD ---
Author Author [facility] Organization [facility] Address Unknown Phone Unavailable Care Team Providers Care Priest Name Role Phone Jose Carlos Mendoza Unavailable [...] Unavailable Unavailable Jaja, Antonio MD Unavailable Unavailable Elkin, A Lesli PA Unavailable [...] Unavailable Elkin, A Lesli PA Unavailable Unavailable Elikn, A Lesli PA Unavailable Unavailable Elkin, A [...] Unavailable Elkin, A Lesli PA Unavailable Unavailable Springfield-Huitron, Lindsay DO Unavailable Unavailable Rosemarie-Huitron, Lindsay DO Unavailable Unavailable Rosemarie-Huitron, Lindsay DO Unavailable Unavailable [place]-Huitron, Lindsay DO Unavailable Unavailable Rosemarie-Huitron, Lindsay DO Unavailable Unavailable [place]-Huitron, Lindsay DO Unavailable Unavailable [place]-Huitron, Lindsay DO Unavailable Unavailable Rosemarie-Huitron, Lindsay DO Unavailable Unavailable [place]-Huitron, Lindsay DO Unavailable Unavailable Rosemarie-Huitron, Lindsay DO Unavailable Unavailable [place]-Huitron, Lindsay DO Unavailable Unavailable Rosemarie-Huitron, Lindsay DO Unavailable Unavailable Rosemarie-Huitron, Lindsay DO Unavailable Unavailable [place]-Huitron, Lindsay DO Unavailable Unavailable Rosemarie-Huitron, Lindsay DO Unavailable Unavailable [place]-Huitron, Lindsay DO Unavailable Unavailable Rosemarie-Huitron, Lindsay DO Unavailable Unavailable [place]-Huitron, Lindsay DO Unavailable Unavailable Rosemarie-Huitron, Lindsay DO Unavailable Unavailable Rosemarie-Huitron, Lindsay DO Unavailable Unavailable Rosemarie-Huitron, Lindsay DO Unavailable Unavailable Rosemarie-Huitron, Lindsay DO Unavailable Unavailable Rosemarie-Huitron, Lindsay DO Unavailable Unavailable Rosemarie-Huitron, Lindsay DO Unavailable Unavailable [place]-Huitron, Lindsay DO Unavailable Unavailable [place]-Huitron, Lindsay DO Unavailable Unavailable Rosemarie-Huitron, Lindsay DO Unavailable Unavailable [place]-Huitron, Lindsay DO Unavailable Unavailable Rosemarie-Huitron, Lindsay DO Unavailable Unavailable [place]-Huitron, Lindsay DO Unavailable Unavailable [place]-Huitron, Lindsay DO Unavailable Unavailable Rosemarie-Huitron, Lindsay DO Unavailable Unavailable Rosemarie-Huitron, Lindsay DO Unavailable Unavailable Rosemarie-Huitron, Lindsay DO Unavailable Unavailable Rosemarie-Huitron, Lindsay DO Unavailable Unavailable Rosemarie-Huitron, Lindsay DO Unavailable Unavailable Rosemarie-Huitron, Lindsay DO Unavailable Unavailable Springfield-Huitron, Lindsay DO Unavailable Unavailable [place]-Hutiron, Lindsay DO Unavailable Unavailable Rosemarie-Huitron, Lindsay DO Unavailable Unavailable Rosemarie-Huitron, Lindsay DO Unavailable Unavailable [place]-Huitron, Lindsay DO Unavailable Unavailable [place]-Huitron, Lindsay DO Unavailable Unavailable Rosemarie-Huitron, Lindsay DO Unavailable Unavailable [place]-Huitron, Lindsay DO Unavailable Unavailable [place]-Huitron, Lindsay DO Unavailable Unavailable Rosemarie-Huitron, Lindsay DO Unavailable Unavailable [place]-Huitron, Lindsay DO Unavailable Unavailable [place]-Huitron, Lindsay DO Unavailable Unavailable Rosemarie-Huitron, Lindsay DO Unavailable Unavailable Rosemarie-Huitron, Lindsay DO Unavailable Unavailable Rosemarie-Huitron, Lindsay DO Unavailable Unavailable [place]-Huitron, Lindsay DO Unavailable Unavailable Rosemarie-Huitron, Lindsay DO Unavailable Unavailable Rosemarie-Huitron, Lindsay DO Unavailable Unavailable [place]-Huitron, Lindsay DO Unavailable Unavailable Rosemarie-Huitron, Lindsay DO Unavailable Unavailable [place]-Huitron, Lindsay DO Unavailable Unavailable Rosemarie-Huitron, Lindsay DO Unavailable Unavailable Rosemarie-Huitron, Lindsay DO Unavailable Unavailable Rosemarie-Huitron, Lindsay DO Unavailable Unavailable Rosemarie-Huitron, Lindsay DO Unavailable Unavailable Rosemarie-Huitron, Lindsay DO Unavailable Unavailable Springfield-Huitron, Lindsay DO Unavailable Unavailable [place]-Huitron, Lindsay DO Unavailable Unavailable [place]-Huitron, Lindsay DO Unavailable Unavailable Rosemarie-Huitron, Lindsay DO Unavailable Unavailable [place]-Huitron, Lindsay DO Unavailable Unavailable [place]-Huitron, Lindsay DO Unavailable Unavailable Rosemarie-Huitron, Lindsay DO Unavailable Unavailable BuniakFrances MD Unavailable [...] MD Unavailable Unavailable BuniakFrances MD Unavailable Unavailable BuniaFrances espinosa MD Unavailable Unavailable BuniakFrances MD Unavailable Unavailable [...] Unavailable Unavailable BuniakFrances MD Unavailable Unavailable Buniak, Borys MD Unavailable [...] Borys Unavailable Unavailable Buniak, Borys Unavailable Unavailable Daisy LEMUS MD Unavailable Unavailable KENN, C JAMES MD Unavailable Unavailable KENN, C JAMES MD Unavailable Unavailable KENN, C JAMES MD Unavailable Unavailable KENN, C JAMES MD Unavailable Unavailable KENN, C JAMES MD Unavailable Unavailable KENN, C JAMES MD Unavailable Unavailable KENN, C JAMES MD Unavailable Unavailable KENN, C JAMES MD Unavailable Unavailable KENN, C JAMES MD Unavailable Unavailable KENN, C JAMES MD Unavailable Unavailable KENN, C JAMES MD Unavailable Unavailable KENN, C JAMES MD Unavailable Unavailable KENN, C JAMES MD Unavailable Unavailable KENN, C JAMES MD Unavailable Unavailable KENN, C JAMES MD Unavailable Unavailable KENN, C JAMES MD Unavailable Unavailable KENN, C JAMES MD Unavailable Unavailable KENN, C JAMES MD Unavailable Unavailable KENN, C JAMES MD Unavailable Unavailable KENN, C JAMES MD Unavailable Unavailable KENN, C JAMES MD Unavailable Unavailable KENN, C JAMES MD Unavailable Unavailable KENN, C JAMES MD Unavailable Unavailable KENN, C JAMES MD Unavailable Unavailable KENN, C JAMES MD Unavailable Unavailable KENN, C JAMES MD Unavailable Unavailable KENN, C JAMES MD Unavailable Unavailable KENN, C JAMES MD Unavailable Unavailable KENN, C JAMES MD Unavailable Unavailable KENN, C JAMES MD Unavailable Unavailable KENN, C JAMES MD Unavailable Unavailable KENN, C JAMES MD Unavailable Unavailable KENN, C JAMES MD Unavailable Unavailable KENN, C JAMES MD Unavailable Unavailable TAHIR, DOC ANDREW DIAMOND SAW OPERATOR-C Unavailable Unavailable TAHIR, DOC ANDREW DIAMOND SAW OPERATOR-C Unavailable Unavailable TAHIR, DOC ANDREW DIAMOND SAW OPERATOR-C Unavailable Unavailable TAHIR, DOC ANDREW DIAMOND SAW OPERATOR-C Unavailable Unavailable TAHIR, DOC ANDREW DIAMOND SAW OPERATOR-C Unavailable Unavailable TAHIR, DOC ANDREW DIAMOND SAW OPERATOR-C Unavailable Unavailable TAHIR, DOC ANDREW DIAMOND SAW OPERATOR-C Unavailable Unavailable TAHIR, DOC ANDREW DIAMOND SAW OPERATOR-C Unavailable Unavailable TAHIR, DOC ANDREW DIAMOND SAW OPERATOR-C Unavailable Unavailable TAHIR, DOC ANDREW DIAMOND SAW OPERATOR-C Unavailable Unavailable TAHIR, DOC ANDREW DIAMOND SAW OPERATOR-C Unavailable Unavailable TAHIR, DOC ANDREW DIAMOND SAW OPERATOR-C Unavailable Unavailable TAHIR, DOC ANDREW DIAMOND SAW OPERATOR-C Unavailable Unavailable TAHIR, DOC ANDREW DIAMOND SAW OPERATOR-C Unavailable Unavailable TAHIR, DOC ANDREW DIAMOND SAW OPERATOR-C Unavailable Unavailable Henna Moreira MD Unavailable Unavailable [...] MD Unavailable Unavailable HarishHenna MD Unavailable Unavailable Harish Nodemarco DEL ROSARIO Unavailable Unavailable HarishHenna MD Unavailable Unavailable HarishHenna [...] Unavailable Celia Vasquez MD Unavailable Unavailable Celia Vasuqez MD Unavailable Unavailable Celia Vasquez MD Unavailable [...] Unavailable Unavailable SWATHI CARROLL MD Unavailable Unavailable CHROSTOWSKISWATHI MD Unavailable Unavailable CHROSTOWSKISWATHI MD Unavailable Unavailable CHROSTOWSKISWATHI MD Unavailable Unavailable CHROSTOWSKISWATHI MD Unavailable Unavailable CHROSTOWSKISWATHI MD Unavailable Unavailable CHROSTOWSKISWATHI MD Unavailable Unavailable CHROSTOWSKISWATHI MD Unavailable Unavailable CHROSTOWSKISWATHI MD Unavailable Unavailable CHROSTOWSKIELENITASWATHI MD Unavailable Unavailable CHROSTOWSKISWATHI MD Unavailable Unavailable CHROSTOWSKISWATHI MD Unavailable Unavailable CHROSTOWSKISWATHI MD Unavailable Unavailable CHROSTOWSKIELENITASWATHI MD Unavailable Unavailable CHROSTOWSKIELENITASWTAHI MD Unavailable Unavailable CHROSTOWSKIELENITASWATHI MD Unavailable Unavailable CHROSTOWSKIELENITASWATHI MD Unavailable Unavailable CHROSTOWSKISWATHI MD Unavailable Unavailable CHROSTOWSKISWATHI MD Unavailable Unavailable CHROSTOWSKISWATHI MD Unavailable Unavailable CHROSTOWSKISWATHI MD Unavailable Unavailable CHROSTOWSKIELENITASWATHI MD Unavailable Unavailable CHROSTOWSKISWATHI MD Unavailable Unavailable CHROSTOWSKISWATHI MD Unavailable Unavailable CHROSTOWSKISWATHI MD Unavailable Unavailable CHROSTOWSKISWATHI MD Unavailable Unavailable CHROSTOWSKIELENITASWATHI MD Unavailable Unavailable CHROSTOWSKIELENITASWATHI MD Unavailable Unavailable CHROSTOWSKISWATHI MD Unavailable Unavailable Nash LIN DPM Unavailable Unavailable Nash LIN DPM Unavailable Unavailable Nash LIN DPM Unavailable Unavailable MAJBLAKE R ABHILASH DPM Unavailable Unavailable DELIA R ABHILASH DPM Unavailable Unavailable MAJBLAKE R ABHILASH DPM Unavailable Unavailable MAJAK R ABHIALSH DPM Unavailable Unavailable MAJAK, R ABHILASH DPM Unavailable Unavailable MAJAK, R ABHILASH DPM Unavailable Unavailable MAJAK, R ABHILASH DPM Unavailable Unavailable MAJAK, R ABHILASH DPM Unavailable Unavailable MAJAK, R ABHILASH DPM Unavailable Unavailable MAJAK, R ABHILASH DPM Unavailable Unavailable MAJAK, R ABHILASH DPM Unavailable Unavailable MAJAK, R ABHILASH DPM Unavailable Unavailable MAJAK R ABHILASH DPM Unavailable Unavailable MAJAK, R [...] ABHILASH DPM Unavailable Unavailable Sparks, L Zara ECONOMIC ANALYST Unavailable Unavailable Sparks, L Zara ECONOMIC ANALYST Unavailable Unavailable Sparks, L Zara ECONOMIC ANALYST Unavailable Unavailable Sparks, L Zara ECONOMIC ANALYST Unavailable Unavailable Sparks, L Zara ECONOMIC ANALYST Unavailable Unavailable Sparks, L Zara ECONOMIC ANALYST Unavailable Unavailable Sparks, L Zara ECONOMIC ANALYST Unavailable Unavailable Sparks, L Zara ECONOMIC ANALYST Unavailable Unavailable Sparks, L Zara ECONOMIC ANALYST Unavailable Unavailable Sparks, L Zara ECONOMIC ANALYST Unavailable Unavailable Sparks, L Zara ECONOMIC ANALYST Unavailable Unavailable Sparks, L Zara ECONOMIC ANALYST Unavailable Unavailable Sparks, L Zara ECONOMIC ANALYST Unavailable Unavailable Sparks, L Zara ECONOMIC ANALYST Unavailable Unavailable Sparks, L Zara ECONOMIC ANALYST Unavailable Unavailable Sparks, L Zara ECONOMIC ANALYST Unavailable Unavailable Sparks, L Zara ECONOMIC ANALYST Unavailable Unavailable Sparks, L Zara ECONOMIC ANALYST Unavailable Unavailable Sparks, L Zara ECONOMIC ANALYST Unavailable Unavailable Sparks, L Zara ECONOMIC ANALYST Unavailable Unavailable Sparks, L Zara ECONOMIC ANALYST Unavailable Unavailable Sparks, L Zara ECONOMIC ANALYST Unavailable Unavailable Sparks, L Zara ECONOMIC ANALYST Unavailable Unavailable Sparks, L Zara ECONOMIC ANALYST Unavailable Unavailable Sparks, L Zara ECONOMIC ANALYST Unavailable Unavailable Sparks, L Zara ECONOMIC ANALYST Unavailable Unavailable Sparks, L Zara ECONOMIC ANALYST Unavailable Unavailable Sparks, L Zara ECONOMIC ANALYST Unavailable Unavailable Sparks, L Zara ECONOMIC ANALYST Unavailable Unavailable Sparks, L Zara ECONOMIC ANALYST Unavailable Unavailable Sparks, L Zara ECONOMIC ANALYST Unavailable Unavailable Sparks, L Zara ECONOMIC ANALYST Unavailable Unavailable Sparks, L Zara ECONOMIC ANALYST Unavailable Unavailable Sparks, L Zara ECONOMIC ANALYST Unavailable Unavailable Sparks, L Zara ECONOMIC ANALYST Unavailable Unavailable Sparks, L Zara ECONOMIC ANALYST Unavailable Unavailable Sparks, L Zara ECONOMIC ANALYST Unavailable Unavailable Sparks, L Zara ECONOMIC ANALYST Unavailable Unavailable Sparks, L Zara ECONOMIC ANALYST Unavailable Unavailable Sparks, L Zara ECONOMIC ANALYST Unavailable Unavailable Sparks, L Zara ECONOMIC ANALYST Unavailable Unavailable Sparks, L Zara ECONOMIC ANALYST Unavailable Unavailable Sparks, L Zara ECONOMIC ANALYST Unavailable Unavailable Rosemarie-Huitron, Lindsay DO Unavailable Unavailable [place]-Huitron, Lindsay DO Unavailable Unavailable Rosemarie-Huitron, Lindsay DO Unavailable Unavailable Rosemarie-Huitron, Lindsay DO Unavailable Unavailable Rosemarie-Huitron, Lindsay DO Unavailable Unavailable Rosemarie-Huitron, Lindsay DO Unavailable Unavailable [place]-H[place]ron, Lindsay DO Unavailable Unavailable [place]ron, Lindsay DO Unavailable Unavailable Rosemarie-Huitron, Lindsay DO Unavailable Unavailable [place]-H[place]ron, Lindsay DO Unavailable Unavailable Rosemarie-Huitron, Lindsay DO Unavailable Unavailable Rosemarie-Huitron, Lindsay DO Unavailable Unavailable [place]-Huitron, Lindsay DO Unavailable Unavailable [place]-H[place]ron, Lindsay DO Unavailable Unavailable Rosemarie-Huitron, Lindsay DO Unavailable Unavailable Rosemarie-Huitron, Lindsay DO Unavailable Unavailable Rosemarie-Huitron, Lindsay DO Unavailable Unavailable [place]-Huitron, Lindsay DO Unavailable Unavailable [place]-H[place]ron, Lindsay DO Unavailable Unavailable Rosemarie-Huitron, Lindsay DO Unavailable Unavailable Rosemarie-Huitron, Lindsay DO Unavailable Unavailable [place]-H[place]ron, Lindsay DO Unavailable Unavailable [place]-Huitron, Lindsay DO Unavailable Unavailable [place]-H[place]ron, Lindsay DO Unavailable Unavailable Rosemarie-Huitron, Lindsay DO Unavailable Unavailable Rosemarie-Huitron, Lindsay DO Unavailable Unavailable [place]-Huitron, Lindsay DO Unavailable Unavailable Rosemarie-Huitron, Lindsay DO Unavailable Unavailable [place]-Huitron, Lindsay DO Unavailable Unavailable [place]-H[place]ron, Lindsay DO Unavailable Unavailable [place]-Huitron, Lindsay DO Unavailable Unavailable [place]-H[place]ron, Lindsay DO Unavailable Unavailable Rosemarie-Huitron, Lindsay DO Unavailable Unavailable [place]-H[place]ron, Lindsay DO Unavailable Unavailable Rosemarie-Huitron, Lindsay DO Unavailable Unavailable [place]-H[place]ron, Lindsay DO Unavailable Unavailable Rosemarie-Huitron, Lindsay DO Unavailable Unavailable Rosemarie-Huitron, Lindsay DO Unavailable Unavailable [place]-Huitron, Lindsay DO Unavailable Unavailable Rosemarie-Huitron, Lindsay DO Unavailable Unavailable Rosemarie-Huitron, Lindsay DO Unavailable Unavailable Rosemarie-Huitron, Lindsay DO Unavailable Unavailable Rosemarie-Huitron, Lindsay DO Unavailable Unavailable Rosemarie-Huitron, Lindsay DO Unavailable Unavailable [place]-Huitron, Lindsay DO Unavailable Unavailable Rosemarie-Huitron, Lindsay DO Unavailable Unavailable [place]-Huitron, Lindsay DO Unavailable Unavailable [place]-H[place]ron, Lindsay DO Unavailable Unavailable Rosemarie-Huitron, Lindsay DO Unavailable Unavailable Rosemarie-Huitron, Lindsay DO Unavailable Unavailable [place]-Huitron, Lindsay DO Unavailable Unavailable [place]-Huitron, Lindsay DO Unavailable Unavailable [place]-Huitron, Lindsay DO Unavailable Unavailable [place]-Huitron, Lindsay DO Unavailable Unavailable [place]-Huitron, Lindsay DO Unavailable Unavailable [place]-Huitron, Lindsay DO Unavailable Unavailable [place]-Huitron, Lindsay DO Unavailable Unavailable [place]-Huitron, Lindsay DO Unavailable Unavailable Rosemarie-Huitron, Lindsay DO Unavailable Unavailable [place]-Huitron, Lindsay DO Unavailable Unavailable [place]-Huitron, Lindsay DO Unavailable Unavailable [place]-H[place]ron, Lindsay DO Unavailable Unavailable [place]-Huitron, Lindsay DO Unavailable Unavailable Rosemarie-Huitron, Lindsay DO Unavailable Unavailable [place]-Huitron, Lindsay DO Unavailable Unavailable Rosemarie-Huitron, Lindsay DO Unavailable Unavailable [place]-H[place]ron, Lindsay DO Unavailable Unavailable [place]-H[place]ron, Lindsay DO Unavailable Unavailable [place]-H[place]ron, Lindsay DO Unavailable Unavailable [place]-H[place]ron, Lindsay DO Unavailable Unavailable NON, PHYSICIAN STAFF Unavailable Unavailable Frances Guerra MD Unavailable Unavailable Frances Guerra MD Unavailable Unavailable Frances Guerra MD Unavailable Unavailable Frances Guerra MD Unavailable Unavailable Frances Guerra MD Unavailable Unavailable Frances Guerra MD Unavailable Unavailable Frances Guerra MD Unavailable Unavailable Frances Guerra MD Unavailable Unavailable Frances Guerra MD Unavailable Unavailable Frances Guerra MD Unavailable Unavailable BunFrances giron MD Unavailable Unavailable Frances Guerra MD Unavailable Unavailable BunFrances giron MD Unavailable Unavailable BunFrances giron MD Unavailable Unavailable BunFrances giron MD Unavailable Unavailable BunFrances giron MD Unavailable Unavailable BunFrances giron MD Unavailable Unavailable BunFrances giron MD Unavailable Unavailable BunFrances giron MD Unavailable Unavailable Frances Guerra MD Unavailable Unavailable BunFrances giron MD Unavailable Unavailable BunFrances giron MD Unavailable Unavailable BunFrances giron MD Unavailable Unavailable BunFrances giron MD Unavailable Unavailable BunFrances giron MD Unavailable Unavailable BunFrances giron MD Unavailable Unavailable BunFrances giron MD Unavailable Unavailable BuniaFrances espinosa MD Unavailable Unavailable BuniaFrances espinosa MD Unavailable Unavailable Buniak, Borys Unavailable Unavailable [...] Unavailable Kamari, J Marylene MD Unavailable Unavailable Kamrai, J Marylene MD Unavailable Unavailable Kamari, J [...] is protected by Article 27-F of the [facility] Public [employer] law. If you continue you may have access to information: Regarding HIV / AIDS; Provided by facilities licensed or operated by the [facility] Office of Mental Health; or Provided by the [facility] Office for People With Developmental Disabilities. If such information is present, then the following [facility] mandated warning applies: This information has been [...] Data Source(s ) BRANDNAME SARAH TYEMICHELLE TREMORS [facility] Drug allergy METFORMIN METFORMIN ANAPHYLAXIS [facility] Drug allergy FLUOXETINE FLUOXETINE RASH [facility] CLASS NSAID NSAID UNKNOWN [facility] CLASS SULFA (sulfonamide) SULFA (sulfonamide) HIVES [facility] Drug allergy metoclopramide metoclopramide Dyskinesia [place] [facility] Drug allergy fluoxetine fluoxetine Other, not liste d U PLEASE VERIFY REACTION/SEVERITY U [facility] Drug allergy metformin metformin LACTIC ACIDOSIS [facility] Drug allergy Sulfa (Sulfonamide Antibiotics) Sulfa (Sulfonami de Antibiotics) PRURITIS, HIVES [facility] Drug allergy NSAIDS (Non-Steroidal Anti-Inflamma NSAI DS (Non-Steroidal Anti-Inflamma GI Upset SV [facility] Drug allergy Sulfacetamide Sodium Sulfacetamide Hives Active eCW1 ([facility]) Family History Family Member Name Family Member Gender Family Member Status Date o f Status Description Data Source(s) Unknown Condition [facility] Condition [facility] Unknown Condition [facility] Unknown Condition [facility] Unknown Condition [facility] Unknown Condition [facility] Unknown Condition [facility] Unknown Condition [facility] Unknown Condition [facility] Unknown Condition [facility] Unknown Condition [facility] Condition [facility] Encounters Encounter Providers Location Date Indications Data Source(s ) Outpatient Attender: Lindsay OrellanaHuitron DORefalexander er: Lindsay Houston-Huitron DO 07/30/2020 09:27:00 AM EST - 07/30/2020 04:57:00 PM EST [facility] Outpatient Attender: Lindsay Chapman DORefalexander er: Lindsay Houston-Huitron DO 07/29/2020 09:16:00 AM EST [facility] Outpatient Attender: Zara Sparks ECONOMIC ANALYST 07/24/2020 05:49:0 0 PM EST [facility] Outpatient Attender: Zara Sparks NPReferrer: Lindsay hedrickle-Huitron DO 07/24/2020 11:35:00 AM EST - 07/24/2020 12:15:00 PM EST [facility] Outpatient Attender: Antonio Wilkinson MD Main office [facility] 07/21/2020 10:45:00 AM EST [facility] ([facility] Attender: Frances Guerra [...] [facility] [place] [address] [address] 06/20/2020 12:00:00 AM EST eCW1 ([facility]) [place] [address] [address] 06/20/2020 12:00:00 AM EST eCW1 ([facility]) [place] [address] [address] 06/19/2020 12:00:00 AM EST eCW1 ([facility]) [place] [address] [address] 06/16/2020 12:00:00 AM EST eCW1 ([facility]) Outpatient Attender: Lindsay Chapman DORjeanmarie er: Lindsay Chapman DO 05/30/2020 03:21:00 PM EST [facility] Attender: Frances BURKETTeferrer: Lindsay cmelroyHuitron DO 05/16/2020 08:20:11 PM EST [facility] Attender: Frances BURKETTeferrer: Lindsay mcelroyHuitron DO 05/16/2020 08:20:11 PM EST [facility] Outpatient Attender: Dania Benites MDConsultant: Frances soni MD 05/13/2020 10:29:00 AM EST E78.2,R19.5,E11.8,E55.9,A31.0,K92.1 [facility] E78.2,R19.5,E11.8,E55.9,A31.0,K92.1 Outpatient Attender: Henna Moreira MDConsultant: STAFF NON 04/30/2020 08:30:00 AM EDT - 04/30/2020 12:18:00 PM EDT [facility] Patient discharged. [place] [address] [address] 04/21/2020 12:00:00 AM EDT eCW1 ([facility]) Outpatient Attender: Lindsay Chapman DO 2019 12:18:00 PM EDT R19.5 [facility] R19.5 Outpatient Attender: Antonio Wilkinson MD [facility] office - [place] 04/16/2020 10:30:00 AM EDT [facility] ([facility] Outpatient Attender: Lindsay Holliday er: Lindsay Chapman DO 04/14/2020 08:50:00 AM EDT - 04/14/2020 10:36:00 AM EDT [facility] Outpatient Attender: ANDREW ORDAZP-Daisy Lemus/Dave/Oscar/Nash rice 04/10/2020 03:45:00 PM EDT [facility] ([facility] Outpatient Attender: Henna Moreira MDConsultant: STAFF NON 04/09/2020 10:45:00 AM EDT - 04/09/2020 12:27:00 PM EDT [facility] Patient discharged. Outpatient Attender: Lindsay Holliday er: Lindsay Chapman DO 03/21/2020 03:15:00 PM EDT [facility] Outpatient Attender: ABHILASH LIN [facility] Office 10/2019 03:30:00 PM EDT [facility] ([facility] Outpatient Attender: SWATHI CARROLL MDReferrer: Bladimir BROWN 02/01/2020 09:55:00 AM EDT R10.13,D83.9 [facility],D83.9 Outpatient Attender: Jose Carlos BROWN 01/31/2020 08:39:00 AM EDT PAIN [facility] [place] [address] [address] 01/24/2020 12:00:00 AM EDT eCW1 ([facility]) Outpatient Attender: Lindsay Chapman DO 2019 12:49:00 PM EDT E78.5,E11.9,E55.9 [facility] E78.5,E11.9,E55.9 Attender: Frances Guerra MDReferrer: Lindsay Solis DO 01/16/2020 08:20:07 PM EDT [facility] Outpatient Attender: Antonio Wilkinson MD Main office - [place] 01/14/2020 11:30:00 AM EDT [facility] ([facility] Outpatient Attender: SWATHI CARROLL MD Main Office 01/10/2020 09:15:00 AM EDT [facility] ([facility] [place] [address] [address] 01/10/2020 12:00:00 AM EDT eCW1 ([facility] [facility] Outpatient Attender: ANDREW LÓPEZ-Daisy Lemus/Dave/Oscar/R eindl 01/03/2020 10:15:00 AM EDT [facility] ([facility]) Outpatient Attender: Lindsay Holliday er: Lindsay Chapman DO 12/24/2019 01:47:00 PM EDT - 12/24/2019 03:32:00 PM EDT [facility] Outpatient [address] [address] 12/17/2019 12:00:00 AM EDT eCW1 ([facility] Outpatient Attender: Salena Helms MD Main office - [place] 12/06/2019 12:15:00 PM EDT [facility] ([facility]) Outpatient 11/30/2019 06:19:00 AM EDT [facility] Outpatient Attender: JAMES Lemus/Dave/Oscar/Reind l 11/21/2019 10:45:00 AM EDT [facility] ([facility] [address] [address] 11/20/2019 12:00:00 AM EDT eCW1 ([facility] [place] Outpatient Attender: Antonio Wilkinson MD Main office - [place] 11/14/2019 12:15:00 PM EDT [facility] ([facility]) [facility] [place] [address] [address] 11/14/2019 12:00:00 AM EDT eCW1 ([facility]) [facility] [address] [address] 11/08/2019 12:00:00 AM EDT eCW1 ([facility] Outpatient Attender: Dania Benites MD 11/03/2019 08:28:00 AM EDT A31.0,J44.9 [facility] A31.0,J44.9 [facility] [address] [address] 11/01/2019 12:00:00 AM EDT eCW1 ([facility] Outpatient Attender: Lindsay Holliday er: Lindsay Chapman DO 10/29/2019 01:49:00 PM EDT [facility] Outpatient Attender: Lindsay Mendoza: Oracio Vasquez MD 10/15/2019 10:48:00 AM EDT - 10/15/2019 01:04:00 PM EDT [facility] Outpatient Attender: Meng Vasquez MD 10/12/2019 02:03:00 PM EDT R05 [facility] R05 Outpatient Attender: Meng Garzon: Lindsay Lerma DO 10/12/2019 12:49:00 PM EDT - 10/12/2019 12:55:00 PM EDT [address] [address] 10/12/2019 12:00:00 AM EDT eCW1 ([facility]) [facility] [address] [place] [address], [place] [address] 10/11/2019 12:00:00 AM EDT eCW1 ([facility]) [facility] [address] [place] [address] [place] [address] 09/24/2019 12:00:00 AM EDT eCW1 ([facility]) [facility] [address] [place] [address], [place] [address] 09/18/2019 12:00:00 AM EDT eCW1 ([facility]) [address] [address] 09/17/2019 12:00:00 AM EDT eCW1 ([facility] Outpatient Attender: ANDREW Lemus/[place]/Oscar/R eindl 08/14/2019 12:45:00 PM EST [facility] ([facility] Outpatient 08/10/2019 01:02:00 PM EST [facility] Outpatient Attender: ANDREW Lemus/[place]/Oscar/R eindl 07/30/2019 07:45:00 AM EST [facility] ([facility] [address] [address] 07/23/2019 12:00:00 AM EST eCW1 ([facility]) [facility] [address] [address] 07/19/2019 12:00:00 AM EST eCW1 ([facility]) Outpatient Attender: SWATHI CARROLL MD 06/29/2019 02: 46:00 PM EST D83.9 [facility] D83.9 Outpatient Attender: Lesli BROWN 06/28/2019 12 :13:00 PM EST CHRONIC HIP/BACK PAIN [facility] CHRONIC HIP/BACK PAIN Outpatient Attender: Lindsay MCGARRYeferrer: No Family Doctor Provided 06/26/2019 04:00:00 PM EST - 06/26/2019 05:36:00 PM EST [facility] Outpatient 06/24/2019 06:43:00 PM EST [facility] Outpatient Attender: Salena Helms MD Main office - [place] 06/20/2019 01:15:00 PM EST [facility] ([facility]) [facility] [address] [address] 06/19/2019 12:00:00 AM EST eCW1 ([facility]) Outpatient Attender: Antonio Wilkinson MD Main office - [place] 06/18/2019 10:15:00 AM EST [facility] ([facility] [address] [address] 06/14/2019 12:00:00 AM EST eCW1 ([facility]) [facility] [place] [address] [address] 06/04/2019 12:00:00 AM EST eCW1 ([facility]) Outpatient Attender: Lindsay Chapman DO 2018 02:49:00 PM EST SCREEN [facility] SCREEN Immunizations Vaccine Date Status Description Data Source(s) Pneumococcal conjugate PCV 13 04/14/2020 12:00:00 AM EDT complet ed pneumococcal conjugate PCV 13 [facility] Pneumococcal conjugate PCV 13 04/14/2020 12:00:00 AM EDT complet ed pneumococcal conjugate PCV 13 [facility] Pneumococcal conjugate PCV 13 04/14/2020 12:00:00 AM EDT complet ed pneumococcal conjugate PCV 13 [facility] Pneumococcal conjugate PCV 13 04/14/2020 12:00:00 AM EDT complet ed pneumococcal conjugate PCV 13 [facility] IIV3. This is one of two codes replacing CVX 15, which is being retired. 03/19/2020 12:00:00 AM EDT completed influenza vaccine, inactivated [facility] IIV3. This is one of two codes replacing CVX 15, which is being retired. 03/19/2020 12:00:00 AM EDT completed influenza vaccine, inactivated [facility] IIV3. This is one of two codes replacing CVX 15, which is being retired. 03/19/2020 12:00:00 AM EDT completed influenza vaccine, inactivated [facility] IIV3. This is one of two codes replacing CVX 15, which is being retired. 03/19/2020 12:00:00 AM EDT completed influenza vaccine, inactivated [facility] IIV3. This is one of two codes replacing CVX 15, which is being retired. 03/19/2020 12:00:00 AM EDT completed influenza vaccine, inactivated [facility] Tdap 12/24/2019 12:00:00 AM EDT completed tetan us, diphtheria, acell pertussis 7yrs &up [facility] Tdap 12/24/2019 12:00:00 AM EDT completed tetan us, diphtheria, acell pertussis 7yrs &up [facility] Tdap 12/24/2019 12:00:00 AM EDT completed tetan us, diphtheria, acell pertussis 7yrs &up [facility] Tdap 12/24/2019 12:00:00 AM EDT completed tetan us, diphtheria, acell pertussis 7yrs &up [facility] Tdap 12/24/2019 12:00:00 AM EDT completed tetan us, diphtheria, acell pertussis 7yrs &up [facility] Tdap 12/24/2019 12:00:00 AM EDT completed tetan us, diphtheria, acell pertussis 7yrs &up [facility] Tdap 12/24/2019 12:00:00 AM EDT completed tetan us, diphtheria, acell pertussis 7yrs &up [facility] Medications Medication Brand Name Start Date Product Form Dose Route Admi nistrative Instructions Pharmacy Instructions Status Indications Reaction Description Data Source(s) Enalapril Maleate 2.5 MG Oral Tablet Enalapril Maleate 11:07:56 AM EST 0 active [facility] Enalapril Maleate 2.5 MG Oral Tablet Enalapril Maleate 11:07:56 AM EST 0 active [facility] Dexamethasone 6 MG Oral Tablet Dexamethasone 07/27/2020 10:06:[address] 6 MG active [facility] Dexamethasone 6 MG Oral Tablet Dexamethasone 07/27/2020 10:06:[address] 6 MG active [facility] 4 mg 07/27/2020 12:00:00 AM EST tablet 15 TAKE 1 & 1/2 TABLETS BY MOUTH ONCE DAILY TAKE 1 & 1/2 TABLETS BY MOUTH ONCE DAILY SOLD: 07/27/2020 [facility] Enalapril Maleate 2.5 MG Oral Tablet Enalapril Maleate 06/2021 09:19:21 AM EST 2.5 MG completed Health system Enalapril Maleate 2.5 MG Oral Tablet Enalapril Maleate 06/2021 09:19:21 AM EST 2.5 MG completed Health system Enalapril Maleate 2.5 MG Oral Tablet Enalapril Maleate 06/2021 09:19:21 AM EST 2.5 MG completed Health system 2.5 mg 07/22/2020 12:00:00 AM EST tablet [...] Sertraline 06/19/2020 09:41:35 AM EST 0 active [facility] Sertraline 100 MG Oral Tablet Sertraline 06/19/2020 09:41:35 AM EST 0 active [facility] Sertraline 100 MG Oral Tablet Sertraline 06/19/2020 09:41:35 AM EST 0 active [facility] cefdinir 300 MG Oral Capsule Cefdinir 300 MG Cefdinir 300 MG 06/19/2020 12:00:00 AM EST active Cefdinir 300 MG e CW1 ([facility]) Albuterol 0.833 MG/ML / Ipratropium Brom thor 0.167 MG/ML Inhalant Solution Ipratropium-Albuterol 0.5-2.5 (3) MG/3ML Ipratropium-Albuterol 0.5-2.5 (3) MG/3ML 06/19/2020 12:00:00 AM EST 3.0 {ml_as_needed} active Ipratropium-Albuterol 0.5-2.5 (3) MG/3ML eCW1 ([facility]) 0.5 mg-3 mg(2.5 mg base)/3 mL 06/19/2020 [...] {ml_as_needed} active Ipratropium-Albuterol 0.5-2.5 (3) MG/3ML eCW1 ([facility]) 400 mg 06/19/2020 12:00:00 AM EST tablet 120 TAKE FOUR TABLETS BY MOUTH EVERY DAY TAKE FOUR TABLETS BY MOUTH EVERY DAY SOLD: 07/21/2020 [facility] Albuterol 0.833 MG/ML / Ipratropium Brom thor 0.167 MG/ML Inhalant Solution Ipratropium-Albuterol 0.5-2.5 (3) MG/3ML Ipratropium-Albuterol 0.5-2.5 (3) MG/3ML 06/19/2020 12:00:00 AM EST 3.0 {ml_as_needed} active Ipratropium-Albuterol 0.5-2.5 (3) MG/3ML eCW1 ([facility]) Rifampin 300 MG Oral Capsule RIFAMPIN 06/19/2020 [...] EST active Cefdinir 300 MG e CW1 ([facility]) 100 mg 06/19/2020 12:00:00 AM EST tablet [...] EST active Cefdinir 300 MG e CW1 ([facility]) 2.5 mg 06/19/2020 12:00:00 AM EST tablet [...] Famotidine 05/21/2020 06:37:14 PM EST 0 active [facility] Famotidine 20 MG Oral Tablet Famotidine 05/21/2020 06:37:14 PM EST 0 active [facility] Famotidine 20 MG Oral Tablet Famotidine 05/21/2020 06:37:14 PM EST 0 active [facility] Famotidine 20 MG Oral Tablet Famotidine 05/21/2020 06:37:14 PM EST 0 [facility] gabapentin 300 MG Oral Capsule Gabapentin Gabapentin 2019 06:37:12 PM EST 0 [facility] gabapentin 300 MG Oral Capsule Gabapentin Gabapentin 2019 06:37:12 PM EST 0 [facility] gabapentin 300 MG Oral Capsule Gabapentin Gabapentin 2019 06:37:12 PM EST 0 [facility] gabapentin 300 MG Oral Capsule Gabapentin Gabapentin 2019 06:37:12 PM EST 0 [facility] 10 mg 05/16/2020 12:00:00 AM EST [...] 04/23/2020 0 7:47:22 AM EDT 81 MG [facility] Aspirin 81 MG Delayed Release Oral Tablet Aspirin 04/23/2020 0 7:47:22 AM EDT 81 MG [facility] Aspirin 81 MG Delayed Release Oral Tablet Aspirin 04/23/2020 0 7:47:22 AM EDT 81 MG [facility] Aspirin 81 MG Delayed Release Oral Tablet Aspirin 04/23/2020 0 7:47:22 AM EDT 81 MG [facility] montelukast 10 MG Oral Tablet Montelukast Montelukast 04/23/2020 07:45:53 AM EDT 0 active [facility] montelukast 10 MG Oral Tablet Montelukast Montelukast 04/23/2020 07:45:53 AM EDT 0 [facility] montelukast 10 MG Oral Tablet Montelukast Montelukast 04/23/2020 07:45:53 AM EDT 0 [facility] montelukast 10 MG Oral Tablet Montelukast Montelukast 04/23/2020 07:45:53 AM EDT 0 [facility] Esomeprazole 40 MG Delayed Release Oral Capsule Esomep razole Magnesium Esomeprazole Magnesium 04/23/2020 07:45:51 AM EDT 0 [facility] Esomeprazole 40 MG Delayed Release Oral Capsule Esomep razole Magnesium Esomeprazole Magnesium 04/23/2020 07:45:51 AM EDT 0 [facility] Esomeprazole 40 MG Delayed Release Oral Capsule Esomep razole Magnesium Esomeprazole Magnesium 04/23/2020 07:45:51 AM EDT 0 [facility] Esomeprazole 40 MG Delayed Release Oral Capsule Esomep razole Magnesium Esomeprazole Magnesium 04/23/2020 07:45:51 AM EDT 0 active [facility] Loratadine 04/23/2020 07:45:48 AM EDT 0 active [facility] Loratadine 04/23/2020 07:45:48 AM EDT 0 active [facility] Loratadine 04/23/2020 07:45:48 AM EDT 0 active [facility] Loratadine 04/23/2020 07:45:48 AM EDT 0 active [facility] 500 million cell 04/23/2020 12:00:00 AM EDT [...] 12:00: 00 AM EDT RESPIRATORY active MEDENT ([facility], ) 113-14 mcg/actuation 04/23/2020 12:00:00 AM EDT aerosol powdr breath activated 1 INHALE ONE PUFF BY MOUTH TWICE A DAY INHA LE ONE PUFF BY MOUTH TWICE A DAY SOLD: 04/26/2020 [facility] 120 ACTUAT Fluticasone propionate 0.115 MG/ACTUAT / salmeterol 0.021 MG/ACTUAT Metered Dose Inhaler [Advair] Advair HFA 04/21/2020 12:00:00 AM EDT RESPIRATORY completed MED[facility] ( [facility], ) 0.5 ML Streptococcus pneumoniae serotype 1 capsular antigen diphtheria [id number] protein conjugate vaccine 0.0044 MG/ML / Streptococcus pneumoniae serotype 14 capsular antigen diphtheria [id number] protein conjugate vaccine 0.0044 MG/ML / Streptococcus pneumonia Prevnar 13 (PF) (pneumoc 13-rancho conj-dip cr(PF)) 0.5 mL intramuscular syringe Prevnar 13 (PF) (pneumoc 13-rancho conj-dip cr(PF)) 0.5 mL intramuscular syringe 04/14/2020 08:50:46 AM EDT 0.5 ML [facility] 0.5 ML Streptococcus pneumoniae serotype 1 capsular antigen diphtheria [id number] protein conjugate vaccine 0.0044 MG/ML / Streptococcus pneumoniae serotype 14 capsular antigen diphtheria [id number] protein conjugate vaccine 0.0044 MG/ML / Streptococcus pneumonia Prevnar 13 (PF) (pneumoc 13-rancho conj-dip cr(PF)) 0.5 mL intramuscular syringe Prevnar 13 (PF) (pneumoc 13-rancho conj-dip cr(PF)) 0.5 mL intramuscular syringe 04/14/2020 08:50:46 AM EDT 0.5 ML [facility] 0.5 ML Streptococcus pneumoniae serotype 1 capsular antigen diphtheria [id number] protein conjugate vaccine 0.0044 MG/ML / Streptococcus pneumoniae serotype 14 capsular antigen diphtheria [id number] protein conjugate vaccine 0.0044 MG/ML / Streptococcus pneumonia Prevnar 13 (PF) (pneumoc 13-rancho conj-dip cr(PF)) 0.5 mL intramuscular syringe Prevnar 13 (PF) (pneumoc 13-rancho conj-dip cr(PF)) 0.5 mL intramuscular syringe 04/14/2020 08:50:46 AM EDT 0.5 ML [facility] 0.5 ML Streptococcus pneumoniae serotype 1 capsular antigen diphtheria [id number] protein conjugate vaccine 0.0044 MG/ML / Streptococcus pneumoniae serotype 14 capsular antigen diphtheria [id number] protein conjugate vaccine 0.0044 MG/ML / Streptococcus pneumonia Prevnar 13 (PF) (pneumoc 13-rancho conj-dip cr(PF)) 0.5 mL intramuscular syringe Prevnar 13 (PF) (pneumoc 13-rancho conj-dip cr(PF)) 0.5 mL intramuscular syringe 04/14/2020 08:50:46 AM EDT 0.5 ML [facility] 0.5 ML Streptococcus pneumoniae serotype 1 capsular antigen diphtheria [id number] protein conjugate vaccine 0.0044 MG/ML / Streptococcus pneumoniae serotype 14 capsular antigen diphtheria [id number] protein conjugate vaccine 0.0044 MG/ML / Streptococcus pneumonia Prevnar 13 (PF) (pneumoc 13-rancho conj-dip cr(PF)) 0.5 mL intramuscular syringe Prevnar 13 (PF) (pneumoc 13-rancho conj-dip cr(PF)) 0.5 mL intramuscular syringe 04/14/2020 08:50:46 AM EDT 0.5 ML completed [facility] 30 ACTUAT fluticasone furoate 0.1 MG/ACT UAT / vilanterol 0.025 MG/ACTUAT Dry Powder Inhaler [Breo] Breo Ellipta 04/10/2020 12:00:00 AM EDT completed [facility] 0.5 % 04/07/2020 12:00:00 AM EDT [...] 04/02/2020 05:40:54 PM EDT 40 MG active [facility] atorvastatin 40 MG Oral Tablet Atorvastatin Atorvastatin 04/02/2020 05:40:54 PM EDT 40 MG active [facility] atorvastatin 40 MG Oral Tablet Atorvastatin Atorvastatin 04/02/2020 05:40:54 PM EDT 40 MG active [facility] atorvastatin 40 MG Oral Tablet Atorvastatin Atorvastatin 04/02/2020 05:40:54 PM EDT 40 MG active [facility] atorvastatin 40 MG Oral Tablet Atorvastatin Atorvastatin 04/02/2020 05:40:54 PM EDT 40 MG active [facility] Aspirin 81 MG Delayed Release Oral Tablet Aspirin 04/02/2020 0 5:40:20 PM EDT 81 MG active [facility] Aspirin 81 MG Delayed Release Oral Tablet Aspirin 04/02/2020 0 5:40:20 PM EDT 81 MG completed [facility] Aspirin 81 MG Delayed Release Oral Tablet Aspirin 04/02/2020 0 5:40:20 PM EDT 81 MG completed [facility] Aspirin 81 MG Delayed Release Oral Tablet Aspirin 04/02/2020 0 5:40:20 PM EDT 81 MG completed [facility] Aspirin 81 MG Delayed Release Oral Tablet Aspirin 04/02/2020 0 5:40:20 PM EDT 81 MG completed [facility] montelukast 10 MG Oral Tablet Montelukast Montelukast 04/02/2020 05:40:04 PM EDT 10 MG active [facility] montelukast 10 MG Oral Tablet Montelukast Montelukast 04/02/2020 05:40:04 PM EDT 10 MG completed [facility] system montelukast 10 MG Oral Tablet Montelukast Montelukast 04/02/2020 05:40:04 PM EDT 10 MG completed [facility] montelukast 10 MG Oral Tablet Montelukast Montelukast 04/02/2020 05:40:04 PM EDT 10 MG completed [facility] montelukast 10 MG Oral Tablet Montelukast Montelukast 04/02/2020 05:40:04 PM EDT 10 MG completed Health system 100 mg 03/27/2020 12:00:00 AM EDT tablet 60 TAKE ONE TABLET BY MOUTH TWICE A DAY TAKE ONE TABLET BY MOUTH TWICE A DAY SOLD: 07/21/2020 [facility] 100 mg 03/27/2020 12:00:00 AM EDT [...] Drugs Afluria Qd 2019-(3yr up)(PF) (flu vac [id number] 36mos up(P F)) 03/21/2020 03:15:13 PM EDT 60 MCG completed [facility] Qd 2019-21(3yr up)(PF) (flu vac [id number] 36mos up(P F)) 03/21/2020 03:15:13 PM EDT 60 MCG completed [facility] Afluria Qd 2019-21(3yr up)(PF) (flu vac [id number] 36mos up(P F)) 03/21/2020 03:15:13 PM EDT 60 MCG completed [facility] Qd 2019-(3yr up)(PF) (flu vac [id number] 36mos up(P F)) 03/21/2020 03:15:13 PM EDT 60 MCG completed [facility] Afluria Qd 2019-(3yr up)(PF) (flu vac [id number] 36mos up(P F)) 03/21/2020 03:15:13 PM EDT 60 MCG completed [facility] Qd 2019-(3yr up)(PF) (flu vac [id number] 36mos up(P F)) 03/21/2020 03:15:13 PM EDT 60 MCG completed [facility] 2.5 mg 02/24/2020 12:00:00 AM EDT tablet [...] 01/25/2020 11:07:06 AM EDT 40 MG completed [facility] system atorvastatin 40 MG Oral Tablet Atorvastatin Atorvastatin 01/25/2020 11:07:06 AM EDT 40 MG completed [facility] atorvastatin 40 MG Oral Tablet Atorvastatin Atorvastatin 01/25/2020 11:07:06 AM EDT 40 MG completed [facility] atorvastatin 40 MG Oral Tablet Atorvastatin Atorvastatin 01/25/2020 11:07:06 AM EDT 40 MG completed [facility] system atorvastatin 40 MG Oral Tablet Atorvastatin Atorvastatin 01/25/2020 11:07:06 AM EDT 40 MG active [facility] atorvastatin 40 MG Oral Tablet Atorvastatin Atorvastatin 01/25/2020 11:07:06 AM EDT 40 MG completed Health system 40 mg 01/25/2020 12:00:00 AM EDT tablet [...] 01/03/2020 11:17:56 AM EDT 40 MG completed [facility] Famotidine 40 MG Oral Tablet Famotidine 01/03/2020 11:17:56 AM EDT 40 MG completed [facility] Famotidine 40 MG Oral Tablet Famotidine 01/03/2020 11:17:56 AM EDT 40 MG completed [facility] Famotidine 40 MG Oral Tablet Famotidine 01/03/2020 11:17:56 AM EDT 40 MG active [facility] Famotidine 40 MG Oral Tablet Famotidine 01/03/2020 11:17:56 AM EDT 40 MG completed [facility] Famotidine 40 MG Oral Tablet Famotidine 01/03/2020 11:17:56 AM EDT 40 MG active [facility] 1 mg 12/27/2019 12:00:00 AM EDT tablet [...] 12/26/2019 01:55:47 PM EDT 40 MG completed [facility] Famotidine 40 MG Oral Tablet Famotidine 12/26/2019 01:55:47 PM EDT 40 MG completed [facility] Famotidine 40 MG Oral Tablet Famotidine 12/26/2019 01:55:47 PM EDT 40 MG completed [facility] Famotidine 40 MG Oral Tablet Famotidine 12/26/2019 01:55:47 PM EDT 40 MG completed [facility] Famotidine 40 MG Oral Tablet Famotidine 12/26/2019 01:55:47 PM EDT 40 MG completed [facility] Famotidine 40 MG Oral Tablet Famotidine 12/26/2019 01:55:47 PM EDT 40 MG completed [facility] 2.5-2.5 % 12/25/2019 12:00:00 AM EDT cream [...] active [facility] ([facility]) 2.5-2.5 % 12/25/2019 12:00:00 AM EDT cream [...] 12/24/2019 02:53:03 PM EDT 65 UNIT a [facility] Insulin Glargine Insulin Glargine 12/24/2019 02:53:03 PM EDT 65 UNIT active [facility] Insulin Glargine Insulin Glargine (Basag lar Kwikpen U-100 Insulin) 100 unit/mL (3 mL) insulin pen Insulin Glargine (Basaglar Kwikpen U-100 Insulin) 100 unit/mL (3 mL) insulin pen 12/24/2019 02:53:03 PM EDT 65 UNIT a [facility] Insulin Glargine Insulin Glargine (Basag lar Kwikpen U-100 Insulin) 100 unit/mL (3 mL) insulin pen Insulin Glargine (Basaglar Kwikpen U-100 Insulin) 100 unit/mL (3 mL) insulin pen 12/24/2019 02:53:03 PM EDT 65 UNIT a [facility] Insulin Glargine Insulin Glargine (Basag lar Kwikpen U-100 Insulin) 100 unit/mL (3 mL) insulin pen Insulin Glargine (Basaglar Kwikpen U-100 Insulin) 100 unit/mL (3 mL) insulin pen 12/24/2019 02:53:03 PM EDT 65 UNIT a [facility] Insulin Glargine Insulin Glargine (Basag lar Kwikpen U-100 Insulin) 100 unit/mL (3 mL) insulin pen Insulin Glargine (Basaglar Kwikpen U-100 Insulin) 100 unit/mL (3 mL) insulin pen 12/24/2019 02:53:03 PM EDT 65 UNIT a [facility] Insulin Glargine Insulin Glargine (Basag lar Kwikpen U-100 Insulin) 100 unit/mL (3 mL) insulin pen Insulin Glargine (Basaglar Kwikpen U-100 Insulin) 100 unit/mL (3 mL) insulin pen 12/24/2019 02:53:03 PM EDT 65 UNIT a [facility] 0.5 ML Bordetella pertussis filamentous hemagglutinin vaccine, inactivated 0.016 MG/ML / Bordetella pertussis pertactin vaccine, inactivated 0.005 MG/ML / Bordetella pertussis toxoid vaccine, inactivated 0.016 MG/ML / diphtheria toxoid vaccine, inactivate diphth,pertus(acell),tetanus 2.5 Lf unit-8 mcg-5 Lf/0.5mL IM syringe diphth,pertus(acell),tetanus 2.5 Lf unit-8 mcg-5 Lf/0. 5mL IM syringe 12/24/2019 01:47:45 PM EDT 0.5 ML completed [facility] 0.5 ML Bordetella pertussis filamentous hemagglutinin vaccine, inactivated 0.016 MG/ML / Bordetella pertussis pertactin vaccine, inactivated 0.005 MG/ML / Bordetella pertussis toxoid vaccine, inactivated 0.016 MG/ML / diphtheria toxoid vaccine, inactivate diphth,pertus(acell),tetanus 2.5 Lf unit-8 mcg-5 Lf/0.5mL IM syringe diphth,pertus(acell),tetanus 2.5 Lf unit-8 mcg-5 Lf/0. 5mL IM syringe 12/24/2019 01:47:45 PM EDT 0.5 ML [facility] 0.5 ML Bordetella pertussis filamentous hemagglutinin vaccine, inactivated 0.016 MG/ML / Bordetella pertussis pertactin vaccine, inactivated 0.005 MG/ML / Bordetella pertussis toxoid vaccine, inactivated 0.016 MG/ML / diphtheria toxoid vaccine, inactivate diphth,pertus(acell),tetanus 2.5 Lf unit-8 mcg-5 Lf/0.5mL IM syringe diphth,pertus(acell),tetanus 2.5 Lf unit-8 mcg-5 Lf/0. 5mL IM syringe 12/24/2019 01:47:45 PM EDT 0.5 ML [facility] 0.5 ML Bordetella pertussis filamentous hemagglutinin vaccine, inactivated 0.016 MG/ML / Bordetella pertussis pertactin vaccine, inactivated 0.005 MG/ML / Bordetella pertussis toxoid vaccine, inactivated 0.016 MG/ML / diphtheria toxoid vaccine, inactivate diphth,pertus(acell),tetanus 2.5 Lf unit-8 mcg-5 Lf/0.5mL IM syringe diphth,pertus(acell),tetanus 2.5 Lf unit-8 mcg-5 Lf/0. 5mL IM syringe 12/24/2019 01:47:45 PM EDT 0.5 ML [facility] [facility] Bordetella pertussis filamentous hemagglutinin vaccine, inactivated 0.016 MG/ML / Bordetella pertussis pertactin vaccine, inactivated 0.005 MG/ML / Bordetella pertussis toxoid vaccine, inactivated 0.016 MG/ML / diphtheria toxoid vaccine, inactivate diphth,pertus(acell),tetanus 2.5 Lf unit-8 mcg-5 Lf/0.5mL IM syringe diphth,pertus(acell),tetanus 2.5 Lf unit-8 mcg-5 Lf/0. 5mL IM syringe 12/24/2019 01:47:45 PM EDT 0.5 ML [facility] 0.5 ML Bordetella pertussis filamentous hemagglutinin vaccine, inactivated 0.016 MG/ML / Bordetella pertussis pertactin vaccine, inactivated 0.005 MG/ML / Bordetella pertussis toxoid vaccine, inactivated 0.016 MG/ML / diphtheria toxoid vaccine, inactivate diphth,pertus(acell),tetanus 2.5 Lf unit-8 mcg-5 Lf/0.5mL IM syringe diphth,pertus(acell),tetanus 2.5 Lf unit-8 mcg-5 Lf/0. 5mL IM syringe 12/24/2019 01:47:45 PM EDT 0.5 ML [facility] 0.5 ML Bordetella pertussis filamentous hemagglutinin vaccine, inactivated 0.016 MG/ML / Bordetella pertussis pertactin vaccine, inactivated 0.005 MG/ML / Bordetella pertussis toxoid vaccine, inactivated 0.016 MG/ML / diphtheria toxoid vaccine, inactivate diphth,pertus(acell),tetanus 2.5 Lf unit-8 mcg-5 Lf/0.5mL IM syringe diphth,pertus(acell),tetanus 2.5 Lf unit-8 mcg-5 Lf/0. 5mL IM syringe 12/24/2019 01:47:45 PM EDT 0.5 ML completed [facility] gabapentin 300 MG Oral Capsule Gabapentin Gabapentin 2019 09:09:04 AM EDT 300 MG completed [facility] gabapentin 300 MG Oral Capsule Gabapentin Gabapentin 2019 09:09:04 AM EDT 300 MG completed [facility] gabapentin 300 MG Oral Capsule Gabapentin Gabapentin 2019 09:09:04 AM EDT 300 MG completed [facility] gabapentin 300 MG Oral Capsule Gabapentin Gabapentin 2019 09:09:04 AM EDT 300 MG completed [facility] gabapentin 300 MG Oral Capsule Gabapentin Gabapentin 2019 09:09:04 AM EDT 300 MG active [facility] gabapentin 300 MG Oral Capsule Gabapentin Gabapentin 2019 09:09:04 AM EDT 300 MG active [facility] gabapentin 300 MG Oral Capsule Gabapentin Gabapentin 2019 09:09:04 AM EDT 300 MG active [facility] 300 mg 11/28/2019 12:00:00 AM EDT capsule [...] 08:36:50 AM EDT 65 UNIT c ompleted [facility] Insulin Glargine Insulin Glargine 11/23/2019 08:36:50 AM EDT 65 UNIT completed [facility] Insulin Glargine Insulin Glargine (Basag lar Kwikpen U-100 Insulin) 100 unit/mL (3 mL) insulin pen Insulin Glargine (Basaglar Kwikpen U-100 Insulin) 100 unit/mL (3 mL) insulin pen 11/23/2019 08:36:50 AM EDT 65 UNIT c ompleted [facility] Insulin Glargine Insulin Glargine (Basag lar Kwikpen U-100 Insulin) 100 unit/mL (3 mL) insulin pen Insulin Glargine (Basaglar Kwikpen U-100 Insulin) 100 unit/mL (3 mL) insulin pen 11/23/2019 08:36:50 AM EDT 65 UNIT c ompleted [facility] Insulin Glargine Insulin Glargine (Basag lar Kwikpen U-100 Insulin) 100 unit/mL (3 mL) insulin pen Insulin Glargine (Basaglar Kwikpen U-100 Insulin) 100 unit/mL (3 mL) insulin pen 11/23/2019 08:36:50 AM EDT 65 UNIT c [facility] Insulin Glargine Insulin Glargine (Basag lar Kwikpen U-100 Insulin) 100 unit/mL (3 mL) insulin pen Insulin Glargine (Basaglar Kwikpen U-100 Insulin) 100 unit/mL (3 mL) insulin pen 11/23/2019 08:36:50 AM EDT 65 UNIT c [facility] Insulin Glargine Insulin Glargine (Basag lar Kwikpen U-100 Insulin) 100 unit/mL (3 mL) insulin pen Insulin Glargine (Basaglar Kwikpen U-100 Insulin) 100 unit/mL (3 mL) insulin pen 11/23/2019 08:36:50 AM EDT 65 UNIT c [facility] 100 unit/mL (3 mL) 11/23/2019 12:00:00 [...] AM E DT active 1 tablet eCW1 ([facility]) montelukast 10 MG Oral Tablet Montelukast Sodium 10 MG Eric lukast Sodium 10 MG 11/20/2019 12:00:00 AM EDT active 1 tablet eCW1 ([facility]) 500 mg 11/08/2019 12:00:00 AM EDT tablet [...] week, 1/2 tab for 1 week eCW1 ([facility]) 20 mg 11/08/2019 12:00:00 AM EDT tablet [...] ONE-HALF TABLET FOR 1 WEEK SOLD: 11/08/2019 [facility] Levofloxacin 500 MG Oral Tablet Levofloxacin 500 MG 11/08/2019 1 2:00:00 AM EDT active 1 tablet eCW1 ([facility]) Aspirin 81 MG Delayed Release Oral Tablet Aspirin 11/04/2019 0 1:35:44 PM EDT 81 MG completed [facility] Aspirin 81 MG Delayed Release Oral Tablet Aspirin 11/04/2019 0 1:35:44 PM EDT 81 MG active [facility] Aspirin 81 MG Delayed Release Oral Tablet Aspirin 11/04/2019 0 1:35:44 PM EDT 81 MG active [facility] Aspirin 81 MG Delayed Release Oral Tablet Aspirin 11/04/2019 0 1:35:44 PM EDT 81 MG completed [facility] Aspirin 81 MG Delayed Release Oral Tablet Aspirin 11/04/2019 0 1:35:44 PM EDT 81 MG completed [facility] Aspirin 81 MG Delayed Release Oral Tablet Aspirin 11/04/2019 0 1:35:44 PM EDT 81 MG completed [facility] Aspirin 81 MG Delayed Release Oral Tablet Aspirin 11/04/2019 0 1:35:44 PM EDT 81 MG completed [facility] 81 mg 11/04/2019 12:00:00 AM [...] DAY FOR A LLERGIC RHINITIS SOLD: 11/01/2019 [facility] 40 mg 10/30/2019 12:00:00 AM EDT capsule,delayed release (DR/EC) 60 TAKE ONE CAPSULE BY MOUTH TWICE A DAY TAKE ONE CAPSULE BY MOUTH TWICE A DAY SOLD: 12/30/2019 [facility] 40 mg 10/30/2019 12:00:00 AM EDT capsule,delayed release (DR/EC) 60 TAKE ONE CAPSULE BY MOUTH TWICE A DAY TAKE ONE CAPSULE BY MOUTH TWICE A DAY SOLD: 11/01/2019 [facility] Esomeprazole 40 MG Delayed Release Oral Capsule [...] 1-25 UNITS PER SLIDING SCALE SOLD: 11/01/2019 [facility] montelukast 10 MG Oral Tablet MONTELUKAST SODIUM 10/30/2019 12:0 0:00 AM EDT tablet 30 TAKE ONE TABLET BY MOUTH AT BEDT CINTHIA FOR ALLERGIC RHINITIS TAKE ONE TABLET BY MOUTH AT BEDTIME FOR ALLERGIC RHINITIS SOLD: 11/01/2019 [facility] Esomeprazole 40 MG Delayed Release Oral Capsule [...] 10/29/2019 03:08:41 PM EDT 10 MG completed [facility] montelukast 10 MG Oral Tablet Montelukast Montelukast 10/29/2019 03:08:41 PM EDT 10 MG completed [facility] montelukast 10 MG Oral Tablet Montelukast Montelukast 10/29/2019 03:08:41 PM EDT 10 MG completed [facility] montelukast 10 MG Oral Tablet Montelukast Montelukast 10/29/2019 03:08:41 PM EDT 10 MG active [facility] montelukast 10 MG Oral Tablet Montelukast Montelukast 10/29/2019 03:08:41 PM EDT 10 MG completed [facility] montelukast 10 MG Oral Tablet Montelukast Montelukast 10/29/2019 03:08:41 PM EDT 10 MG active [facility] montelukast 10 MG Oral Tablet Montelukast Montelukast 10/29/2019 03:08:41 PM EDT 10 MG active [facility] montelukast 10 MG Oral Tablet Montelukast Montelukast 10/29/2019 03:08:41 PM EDT 10 MG completed [facility] Loratadine 10 MG Oral Tablet Loratadine 10/29/2019 03:07:56 PM EDT 10 MG completed [facility] Loratadine 10 MG Oral Tablet Loratadine 10/29/2019 03:07:56 PM EDT 10 MG active [facility] Loratadine 10 MG Oral Tablet Loratadine 10/29/2019 03:07:56 PM EDT 10 MG completed [facility] Loratadine 10 MG Oral Tablet Loratadine 10/29/2019 03:07:56 PM EDT 10 MG active [facility] Loratadine 10 MG Oral Tablet Loratadine 10/29/2019 03:07:56 PM EDT 10 MG completed [facility] Loratadine 10 MG Oral Tablet Loratadine 10/29/2019 03:07:56 PM EDT 10 MG completed [facility] Loratadine 10 MG Oral Tablet Loratadine 10/29/2019 03:07:56 PM EDT 10 MG active [facility] Loratadine 10 MG Oral Tablet Loratadine 10/29/2019 03:07:56 PM EDT 10 MG active [facility] Famotidine 20 MG Oral Tablet Famotidine (Pepcid) 20 mg tablet Famotidine (Pepcid) 20 mg tablet 10/29/2019 03:00:34 PM EDT 20 MG c ompleted [facility] Famotidine 20 MG Oral Tablet Famotidine 10/29/2019 03:00:34 PM EDT 20 MG active [facility] Famotidine 20 MG Oral Tablet Famotidine (Pepcid) 20 mg tablet Famotidine (Pepcid) 20 mg tablet 10/29/2019 03:00:34 PM EDT 20 MG c [facility] Famotidine 20 MG Oral Tablet Famotidine (Pepcid) 20 mg tablet Famotidine (Pepcid) 20 mg tablet 10/29/2019 03:00:34 PM EDT 20 MG c [facility] Famotidine 20 MG Oral Tablet Famotidine (Pepcid) 20 mg tablet Famotidine (Pepcid) 20 mg tablet 10/29/2019 03:00:34 PM EDT 20 MG c [facility] Famotidine 20 MG Oral Tablet Famotidine (Pepcid) 20 mg tablet Famotidine (Pepcid) 20 mg tablet 10/29/2019 03:00:34 PM EDT 20 MG c [facility] Famotidine 20 MG Oral Tablet Famotidine (Pepcid) 20 mg tablet Famotidine (Pepcid) 20 mg tablet 10/29/2019 03:00:34 PM EDT 20 MG c [facility] Famotidine 20 MG Oral Tablet Famotidine 10/29/2019 03:00:34 PM EDT 20 MG active [facility] Insulin Lispro 10/29/2019 02:58:32 PM EDT 1 UNIT a [facility] Insulin Lispro (Humalog Kwikpen Insulin) 100 unit/mL insulin pen 10/29/2019 02:58:32 PM EDT 1 UNIT active [facility] Insulin Lispro (Humalog Kwikpen Insulin) 100 unit/mL insulin pen 10/29/2019 02:58:32 PM EDT 1 UNIT active L [facility] Insulin Lispro (Humalog Kwikpen Insulin) 100 unit/mL insulin pen 10/29/2019 02:58:32 PM EDT 1 UNIT active [facility] Insulin Lispro (Humalog Kwikpen Insulin) 100 unit/mL insulin pen 10/29/2019 02:58:32 PM EDT 1 UNIT active [facility] Insulin Lispro 10/29/2019 02:58:32 PM EDT 1 UNIT a [facility] Insulin Lispro (Humalog Kwikpen Insulin) 100 unit/mL insulin pen 10/29/2019 02:58:32 PM EDT 1 UNIT active L [facility] Insulin Lispro (Humalog Kwikpen Insulin) 100 unit/mL insulin pen 10/29/2019 02:58:32 PM EDT 1 UNIT active L [facility] Insulin Glargine Insulin Glargine (Basag lar Kwikpen U-100 Insulin) 100 unit/mL (3 mL) insulin pen Insulin Glargine (Basaglar Kwikpen U-100 Insulin) 100 unit/mL (3 mL) insulin pen 10/29/2019 02:57:47 PM EDT [facility] Insulin Glargine Insulin Glargine 10/29/2019 02:57:47 PM EDT 65 UNIT active [facility] Insulin Glargine Insulin Glargine (Basag lar Kwikpen U-100 Insulin) 100 unit/mL (3 mL) insulin pen Insulin Glargine (Basaglar Kwikpen U-100 Insulin) 100 unit/mL (3 mL) insulin pen 10/29/2019 02:57:47 PM EDT 65 UNIT c ompleted [facility] Insulin Glargine Insulin Glargine 10/29/2019 02:57:47 PM EDT 65 UNIT completed [facility] Insulin Glargine Insulin Glargine (Basag lar Kwikpen U-100 Insulin) 100 unit/mL (3 mL) insulin pen Insulin Glargine (Basaglar Kwikpen U-100 Insulin) 100 unit/mL (3 mL) insulin pen 10/29/2019 02:57:47 PM EDT 65 UNIT c ompleted [facility] Insulin Glargine Insulin Glargine (Basag lar Kwikpen U-100 Insulin) 100 unit/mL (3 mL) insulin pen Insulin Glargine (Basaglar Kwikpen U-100 Insulin) 100 unit/mL (3 mL) insulin pen 10/29/2019 02:57:47 PM EDT [facility] Insulin Glargine Insulin Glargine (Basag lar Kwikpen U-100 Insulin) 100 unit/mL (3 mL) insulin pen Insulin Glargine (Basaglar Kwikpen U-100 Insulin) 100 unit/mL (3 mL) insulin pen 10/29/2019 02:57:47 PM EDT [facility] Insulin Glargine Insulin Glargine (Basag lar Kwikpen U-100 Insulin) 100 unit/mL (3 mL) insulin pen Insulin Glargine (Basaglar Kwikpen U-100 Insulin) 100 unit/mL (3 mL) insulin pen 10/29/2019 02:57:47 PM EDT [facility] Insulin Glargine Insulin Glargine (Basag lar Kwikpen U-100 Insulin) 100 unit/mL (3 mL) insulin pen Insulin Glargine (Basaglar Kwikpen U-100 Insulin) 100 unit/mL (3 mL) insulin pen 10/29/2019 02:56:48 PM EDT [facility] Insulin Glargine Insulin Glargine (Basag lar Kwikpen U-100 Insulin) 100 unit/mL (3 mL) insulin pen Insulin Glargine (Basaglar Kwikpen U-100 Insulin) 100 unit/mL (3 mL) insulin pen 10/29/2019 02:56:48 PM EDT [facility] Insulin Glargine Insulin Glargine (Basag lar Kwikpen U-100 Insulin) 100 unit/mL (3 mL) insulin pen Insulin Glargine (Basaglar Kwikpen U-100 Insulin) 100 unit/mL (3 mL) insulin pen 10/29/2019 02:56:48 PM EDT [facility] Insulin Glargine Insulin Glargine (Basag lar Kwikpen U-100 Insulin) 100 unit/mL (3 mL) insulin pen Insulin Glargine (Basaglar Kwikpen U-100 Insulin) 100 unit/mL (3 mL) insulin pen 10/29/2019 02:56:48 PM EDT [facility] Insulin Glargine Insulin Glargine 10/29/2019 02:56:48 PM EDT 65 UNIT completed [facility] Insulin Glargine Insulin Glargine (Basag lar Kwikpen U-100 Insulin) 100 unit/mL (3 mL) insulin pen Insulin Glargine (Basaglar Kwikpen U-100 Insulin) 100 unit/mL (3 mL) insulin pen 10/29/2019 02:56:48 PM EDT 65 UNIT c ompleted [facility] Insulin Glargine Insulin Glargine 10/29/2019 02:56:48 PM EDT 65 UNIT completed [facility] Insulin Glargine Insulin Glargine (Basag lar Kwikpen U-100 Insulin) 100 unit/mL (3 mL) insulin pen Insulin Glargine (Basaglar Kwikpen U-100 Insulin) 100 unit/mL (3 mL) insulin pen 10/29/2019 02:56:48 PM EDT 65 UNIT c ompleted [facility] Esomeprazole 40 MG Delayed Release Oral Capsule Esomep razole Magnesium Esomeprazole Magnesium 10/29/2019 02:55:50 PM EDT 40 MG completed [facility] Esomeprazole 40 MG Delayed Release Oral Capsule Esomep razole Magnesium Esomeprazole Magnesium 10/29/2019 02:55:50 PM EDT 40 MG completed [facility] Esomeprazole 40 MG Delayed Release Oral Capsule Esomep razole Magnesium Esomeprazole Magnesium 10/29/2019 02:55:50 PM EDT 40 MG active [facility] Esomeprazole 40 MG Delayed Release Oral Capsule Esomep razole Magnesium Esomeprazole Magnesium 10/29/2019 02:55:50 PM EDT 40 MG active [facility] Esomeprazole 40 MG Delayed Release Oral Capsule Esomep razole Magnesium Esomeprazole Magnesium 10/29/2019 02:55:50 PM EDT 40 MG active [facility] Esomeprazole 40 MG Delayed Release Oral Capsule Esomep razole Magnesium Esomeprazole Magnesium 10/29/2019 02:55:50 PM EDT 40 MG active [facility] Esomeprazole 40 MG Delayed Release Oral Capsule Esomep razole Magnesium Esomeprazole Magnesium 10/29/2019 02:55:50 PM EDT 40 MG [facility] Esomeprazole 40 MG Delayed Release Oral Capsule Esomep razole Magnesium Esomeprazole Magnesium 10/29/2019 02:55:50 PM EDT 40 MG [facility] 100 mg 10/29/2019 12:00:00 AM [...] Topiramate 10/29/2019 12:00:00 AM EDT active [facility] ([facility], ) 300 mg 10/29/2019 12:00:00 [...] 10/25/2019 07:24:46 AM EDT 40 MG completed [facility] atorvastatin 40 MG Oral Tablet Atorvastatin Atorvastatin 10/25/2019 07:24:46 AM EDT 40 MG completed [facility] atorvastatin 40 MG Oral Tablet Atorvastatin Atorvastatin 10/25/2019 07:24:46 AM EDT 40 MG active [facility] atorvastatin 40 MG Oral Tablet Atorvastatin Atorvastatin 10/25/2019 07:24:46 AM EDT 40 MG completed [facility] atorvastatin 40 MG Oral Tablet Atorvastatin Atorvastatin 10/25/2019 07:24:46 AM EDT 40 MG completed [facility] atorvastatin 40 MG Oral Tablet Atorvastatin Atorvastatin 10/25/2019 07:24:46 AM EDT 40 MG completed [facility] atorvastatin 40 MG Oral Tablet Atorvastatin Atorvastatin 10/25/2019 07:24:46 AM EDT 40 MG active [facility] atorvastatin 40 MG Oral Tablet Atorvastatin Atorvastatin 10/25/2019 07:24:46 AM EDT 40 MG completed [facility] system Epinephrine Epinephrine (Epipen) 0.3 mg/0.3 mL auto-in jector Epinephrine (Epipen) 0.3 mg/0.3 mL auto-injector 10/25/2019 07:20:25 AM EDT 0.3 MG active [facility] Epinephrine Epinephrine (Epipen) 0.3 mg/0.3 mL auto-in jector Epinephrine (Epipen) 0.3 mg/0.3 mL auto-injector 10/25/2019 07:20:25 AM EDT 0.3 MG active [facility] Epinephrine Epinephrine (Epipen) 0.3 mg/0.3 mL auto-in jector Epinephrine (Epipen) 0.3 mg/0.3 mL auto-injector 10/25/2019 07:20:25 AM EDT 0.3 MG active [facility] Epinephrine Epinephrine 10/25/2019 07:20:25 AM EDT 0.3 MG active [facility] Epinephrine Epinephrine (Epipen) 0.3 mg/0.3 mL auto-in jector Epinephrine (Epipen) 0.3 mg/0.3 mL auto-injector 10/25/2019 07:20:25 AM EDT 0.3 MG active [facility] Epinephrine Epinephrine 10/25/2019 07:20:25 AM EDT 0.3 MG active [facility] Epinephrine Epinephrine (Epipen) 0.3 mg/0.3 mL auto-in jector Epinephrine (Epipen) 0.3 mg/0.3 mL auto-injector 10/25/2019 07:20:25 AM EDT 0.3 MG active [facility] Epinephrine Epinephrine (Epipen) 0.3 mg/0.3 mL auto-in jector Epinephrine (Epipen) 0.3 mg/0.3 mL auto-injector 10/25/2019 07:20:25 AM EDT 0.3 MG active [facility] 40 mg 10/25/2019 12:00:00 AM EDT [...] 10/15/2019 01:36:59 PM EDT 100 MG active [facility] Sertraline 100 MG Oral Tablet Sertraline 10/15/2019 01:36:59 PM EDT 100 MG completed [facility] Sertraline 100 MG Oral Tablet Sertraline 10/15/2019 01:36:59 PM EDT 100 MG active [facility] Sertraline 100 MG Oral Tablet Sertraline 10/15/2019 01:36:59 PM EDT 100 MG completed [facility] Sertraline 100 MG Oral Tablet Sertraline 10/15/2019 01:36:59 PM EDT 100 MG active [facility] Sertraline 100 MG Oral Tablet Sertraline 10/15/2019 01:36:59 PM EDT 100 MG active [facility] Sertraline 100 MG Oral Tablet Sertraline 10/15/2019 01:36:59 PM EDT 100 MG completed [facility] Sertraline 100 MG Oral Tablet Sertraline 10/15/2019 01:36:59 PM EDT 100 MG active [facility] Alprazolam 0.25 MG Oral Tablet Alprazolam (Xanax) 0.25 mg tablet Alprazolam (Xanax) 0.25 mg tablet 10/15/2019 01:10:59 PM EDT 0.25 MG active [facility] Alprazolam 0.25 MG Oral Tablet Alprazolam 10/15/2019 01:10:59 PM EDT 0.25 MG active [facility] Alprazolam 0.25 MG Oral Tablet Alprazolam (Xanax) 0.25 mg tablet Alprazolam (Xanax) 0.25 mg tablet 10/15/2019 01:10:59 PM EDT 0.25 MG active [facility] Alprazolam 0.25 MG Oral Tablet Alprazolam (Xanax) 0.25 mg tablet Alprazolam (Xanax) 0.25 mg tablet 10/15/2019 01:10:59 PM EDT 0.25 MG active [facility] Alprazolam 0.25 MG Oral Tablet Alprazolam (Xanax) 0.25 mg tablet Alprazolam (Xanax) 0.25 mg tablet 10/15/2019 01:10:59 PM EDT 0.25 MG active [facility] Alprazolam 0.25 MG Oral Tablet Alprazolam (Xanax) 0.25 mg tablet Alprazolam (Xanax) 0.25 mg tablet 10/15/2019 01:10:59 PM EDT 0.25 MG active [facility] Alprazolam 0.25 MG Oral Tablet Alprazolam 10/15/2019 01:10:59 PM EDT 0.25 MG active [facility] Alprazolam 0.25 MG Oral Tablet Alprazolam (Xanax) 0.25 mg tablet Alprazolam (Xanax) 0.25 mg tablet 10/15/2019 01:10:59 PM EDT 0.25 MG active [facility] gabapentin 300 MG Oral Capsule Gabapentin Gabapentin 2019 12:20:50 PM EDT 300 MG completed [facility] gabapentin 300 MG Oral Capsule Gabapentin Gabapentin 2019 12:20:50 PM EDT 300 MG completed [facility] gabapentin 300 MG Oral Capsule Gabapentin Gabapentin 2019 12:20:50 PM EDT 300 MG completed [facility] gabapentin 300 MG Oral Capsule Gabapentin Gabapentin 2019 12:20:50 PM EDT 300 MG completed [facility] gabapentin 300 MG Oral Capsule Gabapentin Gabapentin 2019 12:20:50 PM EDT 300 MG completed [facility] gabapentin 300 MG Oral Capsule Gabapentin Gabapentin 2019 12:20:50 PM EDT 300 MG active [facility] gabapentin 300 MG Oral Capsule Gabapentin Gabapentin 2019 12:20:50 PM EDT 300 MG completed [facility] gabapentin 300 MG Oral Capsule Gabapentin Gabapentin 2019 12:20:50 PM EDT 300 MG completed [facility] gabapentin 300 MG Oral Capsule Gabapentin Gabapentin 2019 12:20:50 PM EDT 300 MG active [facility] ropinirole 2 MG Oral Tablet Ropinirole Ropinirole 10/15/2019 12:1 9:58 PM EDT 2 MG active [facility] ropinirole 2 MG Oral Tablet Ropinirole Ropinirole 10/15/2019 12:1 9:58 PM EDT 2 MG active [facility] ropinirole 2 MG Oral Tablet Ropinirole Ropinirole 10/15/2019 12:1 9:58 PM EDT 2 MG active [facility] ropinirole 2 MG Oral Tablet Ropinirole Ropinirole 10/15/2019 12:1 9:58 PM EDT 2 MG active [facility] ropinirole 2 MG Oral Tablet Ropinirole Ropinirole 10/15/2019 12:1 9:58 PM EDT 2 MG active [facility] ropinirole 2 MG Oral Tablet Ropinirole Ropinirole 10/15/2019 12:1 9:58 PM EDT 2 MG active [facility] ropinirole 2 MG Oral Tablet Ropinirole Ropinirole 10/15/2019 12:1 9:58 PM EDT 2 MG active [facility] ropinirole 2 MG Oral Tablet Ropinirole Ropinirole 10/15/2019 12:1 9:58 PM EDT 2 MG active [facility] ropinirole 2 MG Oral Tablet Ropinirole Ropinirole 10/15/2019 12:1 9:58 PM EDT 2 MG active [facility] ropinirole 1 MG Oral Tablet Ropinirole Ropinirole 10/15/2019 12:1 9:50 PM EDT 2 MG completed [facility] ropinirole 1 MG Oral Tablet Ropinirole Ropinirole 10/15/2019 12:1 9:50 PM EDT 2 MG completed [facility] ropinirole 1 MG Oral Tablet Ropinirole Ropinirole 10/15/2019 12:1 9:50 PM EDT 2 MG completed [facility] ropinirole 1 MG Oral Tablet Ropinirole Ropinirole 10/15/2019 12:1 9:50 PM EDT 2 MG completed [facility] ropinirole 1 MG Oral Tablet Ropinirole Ropinirole 10/15/2019 12:1 9:50 PM EDT 2 MG active [facility] ropinirole 1 MG Oral Tablet Ropinirole Ropinirole 10/15/2019 12:1 9:50 PM EDT 2 MG completed [facility] ropinirole 1 MG Oral Tablet Ropinirole Ropinirole 10/15/2019 12:1 9:50 PM EDT 2 MG completed [facility] ropinirole 1 MG Oral Tablet Ropinirole Ropinirole 10/15/2019 12:1 9:50 PM EDT 2 MG completed [facility] ropinirole 1 MG Oral Tablet Ropinirole Ropinirole 10/15/2019 12:1 9:50 PM EDT 2 MG completed [facility] Azithromycin Azithromycin 10/15/2019 12:18:12 PM EDT 500 MG [facility] Azithromycin Azithromycin 10/15/2019 12:18:12 PM EDT 500 MG active [facility] Azithromycin Azithromycin 10/15/2019 12:18:12 PM EDT 500 MG active [facility] Azithromycin Azithromycin 10/15/2019 12:18:12 PM EDT 500 MG active [facility] Azithromycin Azithromycin 10/15/2019 12:18:12 PM EDT 500 MG active [facility] Azithromycin Azithromycin 10/15/2019 12:18:12 PM EDT 500 MG active [facility] Azithromycin Azithromycin 10/15/2019 12:18:12 PM EDT 500 MG [facility] Azithromycin Azithromycin 10/15/2019 12:18:12 PM EDT 500 MG [facility] Azithromycin Azithromycin 10/15/2019 12:18:12 PM EDT 500 MG active [facility] Prednisone 10 MG Oral Tablet Prednisone 10/15/2019 10:43:56 AM EDT completed [facility] Prednisone 10 MG Oral Tablet Prednisone 10/15/2019 10:43:56 AM EDT completed [facility] Prednisone 10 MG Oral Tablet Prednisone 10/15/2019 10:43:56 AM EDT completed [facility] Prednisone 10 MG Oral Tablet Prednisone 10/15/2019 10:43:56 AM EDT completed [facility] Prednisone 10 MG Oral Tablet Prednisone 10/15/2019 10:43:56 AM EDT completed [facility] Prednisone 10 MG Oral Tablet Prednisone 10/15/2019 10:43:56 AM EDT completed [facility] Prednisone 10 MG Oral Tablet Prednisone 10/15/2019 10:43:56 AM EDT completed [facility] Prednisone 10 MG Oral Tablet Prednisone 10/15/2019 10:43:56 AM EDT active [facility] Prednisone 10 MG Oral Tablet Prednisone 10/15/2019 10:43:56 AM EDT completed [facility] Zinc 10/15/2019 10:43:47 AM EDT 50 MG active [facility] Zinc 10/15/2019 10:43:47 AM EDT 50 MG [facility] Zinc 10/15/2019 10:43:47 AM EDT 50 MG active [facility] Zinc 10/15/2019 10:43:47 AM EDT 50 MG [facility] Zinc 10/15/2019 10:43:47 AM EDT 50 MG [facility] Zinc 10/15/2019 10:43:47 AM EDT 50 MG [facility] Zinc 10/15/2019 10:43:47 AM EDT 50 MG active [facility] Zinc 10/15/2019 10:43:47 AM EDT 50 MG [facility] Zinc 10/15/2019 10:43:47 AM EDT 50 MG [facility] Ascorbic Acid 500 MG Oral Capsule Ascorbic Acid (Vitam in C) Ascorbic Acid (Vitamin C) 10/15/2019 10:43:25 AM EDT active [facility] Ascorbic Acid 500 MG Oral Capsule Ascorbic Acid (Vitam in C) Ascorbic Acid (Vitamin C) 10/15/2019 10:43:25 AM EDT active [facility] Ascorbic Acid 500 MG Oral Capsule Ascorbic Acid (Vitam in C) Ascorbic Acid (Vitamin C) 10/15/2019 10:43:25 AM EDT active [facility] Ascorbic Acid 500 MG Oral Capsule Ascorbic Acid (Vitam in C) Ascorbic Acid (Vitamin C) 10/15/2019 10:43:25 AM EDT active [facility] Ascorbic Acid 500 MG Oral Capsule Ascorbic Acid (Vitam in C) Ascorbic Acid (Vitamin C) 10/15/2019 10:43:25 AM EDT active [facility] Ascorbic Acid 500 MG Oral Capsule Ascorbic Acid (Vitam in C) Ascorbic Acid (Vitamin C) 10/15/2019 10:43:25 AM EDT active [facility] Ascorbic Acid 500 MG Oral Capsule Ascorbic Acid (Vitam in C) Ascorbic Acid (Vitamin C) 10/15/2019 10:43:25 AM EDT active [facility] Ascorbic Acid 500 MG Oral Capsule Ascorbic Acid (Vitam in C) Ascorbic Acid (Vitamin C) 10/15/2019 10:43:25 AM EDT active [facility] Ascorbic Acid 500 MG Oral Capsule Ascorbic Acid (Vitam in C) Ascorbic Acid (Vitamin C) 10/15/2019 10:43:25 AM EDT active [facility] Fluticasone Propion-Salmeterol 10/15/2019 10:41:40 AM EDT active [facility] Fluticasone Propion-Salmeterol 10/15/2019 10:41:40 AM EDT active [facility] Fluticasone Propion-Salmeterol 10/15/2019 10:41:40 AM EDT active [facility] Fluticasone Propion-Salmeterol 10/15/2019 10:41:40 AM EDT active [facility] Fluticasone Propion-Salmeterol 10/15/2019 10:41:40 AM EDT active [facility] Fluticasone Propion-Salmeterol 10/15/2019 10:41:40 AM EDT active [facility] Fluticasone Propion-Salmeterol 10/15/2019 10:41:40 AM EDT active [facility] Fluticasone Propion-Salmeterol 10/15/2019 10:41:40 AM EDT active [facility] Fluticasone Propion-Salmeterol 10/15/2019 10:41:40 AM EDT active [facility] Alprazolam 0.25 MG Oral Tablet [...] x 3days, 3 tabs x3days , 2 [id number], 1 tabx 5 days eCW1 ([facility]) Esomeprazole 40 MG Delayed Release Oral Capsule Esomep razole Magnesium Esomeprazole Magnesium 10/05/2019 08:42:14 AM EDT 40 MG completed [facility] Esomeprazole 40 MG Delayed Release Oral Capsule Esomep razole Magnesium Esomeprazole Magnesium 10/05/2019 08:42:14 AM EDT 40 MG active [facility] Esomeprazole 40 MG Delayed Release Oral Capsule Esomep razole Magnesium Esomeprazole Magnesium 10/05/2019 08:42:14 AM EDT 40 MG completed [facility] Esomeprazole 40 MG Delayed Release Oral Capsule Esomep razole Magnesium Esomeprazole Magnesium 10/05/2019 08:42:14 AM EDT 40 MG completed [facility] Esomeprazole 40 MG Delayed Release Oral Capsule Esomep razole Magnesium Esomeprazole Magnesium 10/05/2019 08:42:14 AM EDT 40 MG completed [facility] Esomeprazole 40 MG Delayed Release Oral Capsule Esomep razole Magnesium Esomeprazole Magnesium 10/05/2019 08:42:14 AM EDT 40 MG completed [facility] Esomeprazole 40 MG Delayed Release Oral Capsule Esomep razole Magnesium Esomeprazole Magnesium 10/05/2019 08:42:14 AM EDT 40 MG completed [facility] Esomeprazole 40 MG Delayed Release Oral Capsule Esomep razole Magnesium Esomeprazole Magnesium 10/05/2019 08:42:14 AM EDT 40 MG completed [facility] Esomeprazole 40 MG Delayed Release Oral Capsule Esomep razole Magnesium Esomeprazole Magnesium 10/05/2019 08:42:14 AM EDT 40 MG completed [facility] Esomeprazole 40 MG Delayed Release Oral Capsule Esomep razole Magnesium Esomeprazole Magnesium 10/05/2019 08:42:14 AM EDT 40 MG active [facility] 40 mg 10/05/2019 12:00:00 AM EDT capsule,delayed [...] MOUTH FOUR TIMES A DAY SOLD: 03/29/2020 [facility] 60 mg 09/24/2019 12:00:00 AM EDT [...] 12:00:00 AM EDT active 1 tab eCW1 ([facility]) 113-14 mcg/actuation 09/18/2019 12:00:00 AM EDT aerosol [...] 12:00:00 AM EDT active 1 puff eCW1 ([facility]) [employer] 113/14 113-14 MCG/ACT [employer] 11 09/21 113-14 MCG/ACT 09/18/2019 12:00:00 AM EDT active 1 puff eCW1 ([facility]) [employer] 113/14 113-14 MCG/ACT [employer] 11 09/21 113-14 MCG/ACT 09/18/2019 12:00:00 AM EDT active 1 puff eCW1 ([facility]) 113-14 mcg/actuation 09/18/2019 12:00:00 AM EDT aerosol powdr breath activated 1 INHALE ONE PUFF BY MOUTH TWICE A DAY INHA LE ONE PUFF BY MOUTH TWICE A DAY SOLD: 12/01/2019 [facility] [employer] RespiClick 113/14 113-14 MCG/ACT [employer] RespiClick 11 09/21 113-14 MCG/ACT 09/18/2019 12:00:00 AM EDT 1.0 {puff} active [employer] 113/14 113-14 MCG/ACT eCW1 ([facility]) [employer] 113/14 113-14 MCG/ACT [employer] RespiClick 11 09/21 113-14 MCG/ACT 09/18/2019 12:00:00 AM EDT 1.0 {puff} active [employer] 113/14 113-14 MCG/ACT eCW1 ([facility]) 113-14 mcg/actuation 09/18/2019 12:00:00 AM EDT aerosol [...] 00:00 AM EST completed [facility] ([facility]) 62.5 mcg/actuation [...] PUFF BY MOUTH EVERY DAY SOLD: 09/25/2019 [facility] Esomeprazole 40 MG Delayed Release Oral Capsule Esomep razole Magnesium Esomeprazole Magnesium 08/14/2019 09:48:39 AM EST 40 MG completed [facility] Esomeprazole 40 MG Delayed Release Oral Capsule Esomep razole Magnesium Esomeprazole Magnesium 08/14/2019 09:48:39 AM EST 40 MG completed [facility] Esomeprazole 40 MG Delayed Release Oral Capsule Esomep razole Magnesium Esomeprazole Magnesium 08/14/2019 09:48:39 AM EST 40 MG completed [facility] Esomeprazole 40 MG Delayed Release Oral Capsule Esomep razole Magnesium Esomeprazole Magnesium 08/14/2019 09:48:39 AM EST 40 MG completed [facility] Esomeprazole 40 MG Delayed Release Oral Capsule Esomep razole Magnesium Esomeprazole Magnesium 08/14/2019 09:48:39 AM EST 40 MG completed [facility] Esomeprazole 40 MG Delayed Release Oral Capsule Esomep razole Magnesium Esomeprazole Magnesium 08/14/2019 09:48:39 AM EST 40 MG completed [facility] Esomeprazole 40 MG Delayed Release Oral Capsule Esomep razole Magnesium Esomeprazole Magnesium 08/14/2019 09:48:39 AM EST 40 MG completed [facility] Esomeprazole 40 MG Delayed Release Oral Capsule Esomep razole Magnesium Esomeprazole Magnesium 08/14/2019 09:48:39 AM EST 40 MG completed [facility] Esomeprazole 40 MG Delayed Release Oral Capsule Esomep razole Magnesium Esomeprazole Magnesium 08/14/2019 09:48:39 AM EST 40 MG completed [facility] Esomeprazole 40 MG Delayed Release Oral Capsule Esomep razole Magnesium Esomeprazole Magnesium 08/14/2019 09:48:39 AM EST 40 MG completed [facility] 500 million cell 08/07/2019 12:00:00 AM EST [...] 07/29/2019 08:43:08 AM EST 50 MG completed [facility] Sertraline 50 MG Oral Tablet Sertraline 07/29/2019 08:43:08 AM EST 50 MG completed [facility] Sertraline 50 MG Oral Tablet Sertraline 07/29/2019 08:43:08 AM EST 50 MG completed [facility] Sertraline 50 MG Oral Tablet Sertraline 07/29/2019 08:43:08 AM EST 50 MG completed [facility] Sertraline 50 MG Oral Tablet Sertraline 07/29/2019 08:43:08 AM EST 50 MG completed [facility] Sertraline 50 MG Oral Tablet Sertraline 07/29/2019 08:43:08 AM EST 50 MG completed [facility] Sertraline 50 MG Oral Tablet Sertraline 07/29/2019 08:43:08 AM EST 50 MG active [facility] Sertraline 50 MG Oral Tablet Sertraline 07/29/2019 08:43:08 AM EST 50 MG completed [facility] Sertraline 50 MG Oral Tablet Sertraline 07/29/2019 08:43:08 AM EST 50 MG active [facility] Sertraline 50 MG Oral Tablet Sertraline 07/29/2019 08:43:08 AM EST 50 MG completed [facility] 50 mg 07/29/2019 12:00:00 AM EST tablet [...] 07/25/2019 05:47:25 PM EST 40 MG completed [facility] Esomeprazole 40 MG Delayed Release Oral Capsule Esomep razole Magnesium Esomeprazole Magnesium 07/25/2019 05:47:25 PM EST 40 MG completed [facility] Esomeprazole 40 MG Delayed Release Oral Capsule Esomep razole Magnesium Esomeprazole Magnesium 07/25/2019 05:47:25 PM EST 40 MG completed [facility] Esomeprazole 40 MG Delayed Release Oral Capsule Esomep razole Magnesium Esomeprazole Magnesium 07/25/2019 05:47:25 PM EST 40 MG completed [facility] Esomeprazole 40 MG Delayed Release Oral Capsule Esomep razole Magnesium Esomeprazole Magnesium 07/25/2019 05:47:25 PM EST 40 MG completed [facility] Esomeprazole 40 MG Delayed Release Oral Capsule Esomep razole Magnesium Esomeprazole Magnesium 07/25/2019 05:47:25 PM EST 40 MG completed [facility] Esomeprazole 40 MG Delayed Release Oral Capsule Esomep razole Magnesium Esomeprazole Magnesium 07/25/2019 05:47:25 PM EST 40 MG completed [facility] Esomeprazole 40 MG Delayed Release Oral Capsule Esomep razole Magnesium Esomeprazole Magnesium 07/25/2019 05:47:25 PM EST 40 MG completed [facility] Esomeprazole 40 MG Delayed Release Oral Capsule Esomep razole Magnesium Esomeprazole Magnesium 07/25/2019 05:47:25 PM EST 40 MG completed [facility] Esomeprazole 40 MG Delayed Release Oral Capsule Esomep razole Magnesium Esomeprazole Magnesium 07/25/2019 05:47:25 PM EST 40 MG completed [facility] cefdinir 300 MG Oral Capsule Cefdinir 300 MG Cefdinir 300 MG 07/23/2019 12:00:00 AM EST active 1 tab eCW1 ([facility]) cefdinir 300 MG Oral Capsule Cefdinir 300 MG Cefdinir 300 MG 07/23/2019 12:00:00 AM EST active 1 tab eCW1 ([facility]) 300 mg 07/23/2019 12:00:00 AM EST capsule [...] 07/14/2019 08:27:12 AM EST 300 MG completed [facility] system Ranitidine 150 MG Oral Tablet Ranitidine Hcl Ranitidine Hcl 07/14/2019 08:27:12 AM EST 300 MG completed [facility] system Ranitidine 150 MG Oral Tablet Ranitidine Hcl Ranitidine Hcl 07/14/2019 08:27:12 AM EST 300 MG active [facility] Ranitidine 150 MG Oral Tablet Ranitidine Hcl Ranitidine Hcl 07/14/2019 08:27:12 AM EST 300 MG completed [facility] system Ranitidine 150 MG Oral Tablet Ranitidine Hcl Ranitidine Hcl 07/14/2019 08:27:12 AM EST 300 MG completed [facility] system Ranitidine 150 MG Oral Tablet Ranitidine Hcl Ranitidine Hcl 07/14/2019 08:27:12 AM EST 300 MG completed [facility] system Ranitidine 150 MG Oral Tablet Ranitidine Hcl Ranitidine Hcl 07/14/2019 08:27:12 AM EST 300 MG completed [facility] Ranitidine 150 MG Oral Tablet Ranitidine Hcl Ranitidine Hcl 07/14/2019 08:27:12 AM EST 300 MG completed [facility] system Ranitidine 150 MG Oral Tablet Ranitidine Hcl Ranitidine Hcl 07/14/2019 08:27:12 AM EST 300 MG active [facility] Ranitidine 150 MG Oral Tablet Ranitidine Hcl Ranitidine Hcl 07/14/2019 08:27:12 AM EST 300 MG completed [facility] system Ergocalciferol [id number] UNT Oral Capsule Er gocalciferol (Vitamin D2) (Vitamin D2) 1,250 mcg (50,000 unit) capsule Ergocalciferol (Vitamin D2) (Vitamin D2) 1,250 mcg (50,000 unit) capsule 07/14/2019 08:26:59 AM EST 62800 UNIT active [facility] Ergocalciferol 42921 UNT Oral Capsule Er gocalciferol (Vitamin D2) (Vitamin D2) 1,250 mcg (50,000 unit) capsule Ergocalciferol (Vitamin D2) (Vitamin D2) 1,250 mcg (50,000 unit) capsule 07/14/2019 08:26:59 AM EST 22555 UNIT active [facility] Ergocalciferol 64896 UNT Oral Capsule Ergocalciferol ( Vitamin D2) Ergocalciferol (Vitamin D2) 07/14/2019 08:26:59 AM EST [facility] 89597 UNT Oral Capsule Er gocalciferol (Vitamin D2) (Vitamin D2) 1,250 mcg (50,000 unit) capsule Ergocalciferol (Vitamin D2) (Vitamin D2) 1,250 mcg (50,000 unit) capsule 07/14/2019 08:26:59 AM EST 80448 UNIT active [facility] Ergocalciferol 10547 UNT Oral Capsule Ergocalciferol ( Vitamin D2) Ergocalciferol (Vitamin D2) 07/14/2019 08:26:59 AM EST [facility] 18155 UNT Oral Capsule Ergocalciferol ( Vitamin D2) Ergocalciferol (Vitamin D2) 07/14/2019 08:26:59 AM EST 22981 UNIT [facility] Ergocalciferol 80903 UNT Oral Capsule Er gocalciferol (Vitamin D2) (Vitamin D2) 1,250 mcg (50,000 unit) capsule Ergocalciferol (Vitamin D2) (Vitamin D2) 1,250 mcg (50,000 unit) capsule 07/14/2019 08:26:59 AM EST 64202 UNIT active [facility] Ergocalciferol 83393 UNT Oral Capsule Er gocalciferol (Vitamin D2) (Vitamin D2) 1,250 mcg (50,000 unit) capsule Ergocalciferol (Vitamin D2) (Vitamin D2) 1,250 mcg (50,000 unit) capsule 07/14/2019 08:26:59 AM EST 26083 UNIT active [facility] Ergocalciferol 20387 UNT Oral Capsule Er gocalciferol (Vitamin D2) (Vitamin D2) 1,250 mcg (50,000 unit) capsule Ergocalciferol (Vitamin D2) (Vitamin D2) 1,250 mcg (50,000 unit) capsule 07/14/2019 08:26:59 AM EST 91749 UNIT active [facility] Ergocalciferol 49147 UNT Oral Capsule Ergocalciferol ( Vitamin D2) Ergocalciferol (Vitamin D2) 07/14/2019 08:26:59 AM EST 85683 UNIT acti ve [facility] Enalapril Maleate 2.5 MG Oral Tablet Enalapril Maleate 10/2019 08:26:34 AM EST 2.5 MG active [facility] Enalapril Maleate 2.5 MG Oral Tablet Enalapril Maleate 10/2019 08:26:34 AM EST 2.5 MG active [facility] Enalapril Maleate 2.5 MG Oral Tablet Enalapril Maleate 10/2019 08:26:34 AM EST 2.5 MG active [facility] Enalapril Maleate 2.5 MG Oral Tablet Enalapril Maleate 10/2019 08:26:34 AM EST 2.5 MG active [facility] Enalapril Maleate 2.5 MG Oral Tablet Enalapril Maleate 10/2019 08:26:34 AM EST 2.5 MG completed Health system Enalapril Maleate 2.5 MG Oral Tablet Enalapril Maleate 10/2019 08:26:34 AM EST 2.5 MG active [facility] Enalapril Maleate 2.5 MG Oral Tablet Enalapril Maleate 10/2019 08:26:34 AM EST 2.5 MG active [facility] Enalapril Maleate 2.5 MG Oral Tablet Enalapril Maleate 10/2019 08:26:34 AM EST 2.5 MG active [facility] Enalapril Maleate 2.5 MG Oral Tablet Enalapril Maleate 10/2019 08:26:34 AM EST 2.5 MG completed Health system Enalapril Maleate 2.5 MG Oral Tablet Enalapril Maleate 10/2019 08:26:34 AM EST 2.5 MG completed Health system 1 mg 06/29/2019 12:00:00 AM EST tablet [...] Aspirin 06/26/2019 0 4:08:04 PM EST completed [facility] Aspirin 81 MG Delayed Release Oral Tablet Aspirin 06/26/2019 0 4:08:04 PM EST active [facility] Aspirin 81 MG Delayed Release Oral Tablet Aspirin 06/26/2019 0 4:08:04 PM EST completed [facility] Aspirin 81 MG Delayed Release Oral Tablet Aspirin 06/26/2019 0 4:08:04 PM EST completed [facility] Aspirin 81 MG Delayed Release Oral Tablet Aspirin 06/26/2019 0 4:08:04 PM EST completed [facility] Aspirin 81 MG Delayed Release Oral Tablet Aspirin 06/26/2019 0 4:08:04 PM EST completed [facility] Aspirin 81 MG Delayed Release Oral Tablet Aspirin 06/26/2019 0 4:08:04 PM EST completed [facility] Aspirin 81 MG Delayed Release Oral Tablet Aspirin 06/26/2019 0 4:08:04 PM EST active [facility] Aspirin 81 MG Delayed Release Oral Tablet Aspirin 06/26/2019 0 4:08:04 PM EST active [facility] Aspirin 81 MG Delayed Release Oral Tablet Aspirin 06/26/2019 0 4:08:04 PM EST completed [facility] Lactobacillus acidophilus [id number] UNT Oral Tablet La ctobacillus Acidophilus Lactobacillus Acidophilus 06/26/2019 04:07:06 PM EST active [facility] Lactobacillus acidophilus [id number] UNT Oral Tablet La ctobacillus Acidophilus Lactobacillus Acidophilus 06/26/2019 04:07:[address] [facility] Lactobacillus acidophilus [id number] UNT Oral Tablet La ctobacillus Acidophilus Lactobacillus Acidophilus 06/26/2019 04:07:[address] [facility] Lactobacillus acidophilus [id number] UNT Oral Tablet La ctobacillus Acidophilus Lactobacillus Acidophilus 06/26/2019 04:07:[address] [facility] Lactobacillus acidophilus [id number] UNT Oral Tablet La ctobacillus Acidophilus Lactobacillus Acidophilus 06/26/2019 04:07:[address] [facility] Lactobacillus acidophilus [id number] UNT Oral Tablet La ctobacillus Acidophilus Lactobacillus Acidophilus 06/26/2019 04:07:[address] [facility] Lactobacillus acidophilus [id number] UNT Oral Tablet La ctobacillus Acidophilus Lactobacillus Acidophilus 06/26/2019 04:07:[address] [facility] Lactobacillus acidophilus [id number] UNT Oral Tablet [facility] ctobacillus Acidophilus Lactobacillus Acidophilus 06/26/2019 04:07:[address] [facility] Lactobacillus acidophilus [id number] UNT Oral Tablet La ctobacillus Acidophilus Lactobacillus Acidophilus 06/26/2019 04:07:[address] [facility] Lactobacillus acidophilus [id number] UNT Oral Tablet La ctobacillus Acidophilus Lactobacillus Acidophilus 06/26/2019 04:07:[address] [facility] 24 HR ropinirole 2 MG Extended Release Oral Tablet Ropinirol e HCL ER 06/20/2019 12:00:00 AM EST ORAL completed [facility] ([facility] ) gabapentin 300 MG Oral Capsule Gabapentin Gabapentin 2018 01:48:45 PM EST 300 MG completed [facility] gabapentin 300 MG Oral Capsule Gabapentin Gabapentin 2018 01:48:45 PM EST 300 MG completed [facility] gabapentin 300 MG Oral Capsule Gabapentin Gabapentin 2018 01:48:45 PM EST 300 MG active [facility] gabapentin 300 MG Oral Capsule Gabapentin Gabapentin 2018 01:48:45 PM EST 300 MG active [facility] gabapentin 300 MG Oral Capsule Gabapentin Gabapentin 2018 01:48:45 PM EST 300 MG completed [facility] gabapentin 300 MG Oral Capsule Gabapentin Gabapentin 2018 01:48:45 PM EST 300 MG completed [facility] gabapentin 300 MG Oral Capsule Gabapentin Gabapentin 2018 01:48:45 PM EST 300 MG completed [facility] gabapentin 300 MG Oral Capsule Gabapentin Gabapentin 2018 01:48:45 PM EST 300 MG [facility] gabapentin 300 MG Oral Capsule Gabapentin Gabapentin 2018 01:48:45 PM EST 300 MG [facility] gabapentin 300 MG Oral Capsule Gabapentin Gabapentin 2018 01:48:45 PM EST 300 MG [facility] Blood Sugar Diagnostic 06/18/2019 01:48:33 PM EST active [facility] Blood Sugar Diagnostic (Onetouch Verio) strip 06/18/2019 0 1:48:33 PM EST active [facility] Blood Sugar Diagnostic (Onetouch Verio) strip 06/18/2019 0 1:48:33 PM EST active [facility] Blood Sugar Diagnostic 06/18/2019 01:48:33 PM EST active [facility] Blood Sugar Diagnostic (Onetouch Verio) strip 06/18/2019 0 1:48:33 PM EST active [facility] Blood Sugar Diagnostic (Onetouch Verio) strip 06/18/2019 0 1:48:33 PM EST active [facility] Blood Sugar Diagnostic 06/18/2019 01:48:33 PM EST active [facility] Blood Sugar Diagnostic 06/18/2019 01:48:33 PM EST active [facility] Blood Sugar Diagnostic (Onetouch Verio) strip 06/18/2019 0 1:48:33 PM EST active [facility] Blood Sugar Diagnostic (Nimatouch Chacortaio) strip 06/18/2019 0 1:48:33 PM EST active [facility] BLOOD SUGAR DIAGNOSTIC 06/18/2019 12:00:00 AM EST [...] 12:00:00 AM EST active 1 cap eCW1 ([facility]) Acidophilus Probiotic Blend - Acidophilus Probiotic Blend - 06/06/2019 12:00:00 AM EST active 1 cap eCW1 ([facility]) ropinirole 0.25 MG Oral Tablet [Requip] Requip 06/06/2019 12:00:0 0 AM EST ORAL completed [facility] ([facility]) ropinirole 2 MG Oral Tablet Ropinirole HCL 06/06/2019 12:00:00 AM EST active [facility] ([facility]) Acidophilus Probiotic Blend - Acidophilus Probiotic Blend - 06/06/2019 12:00:00 AM EST active 1 cap eCW1 ([facility]) 33 gauge 06/03/2019 12:00:00 AM EST misc [...] BEDTIME SO LD: 10/03/2019 [facility] 33 [facility] 06/03/2019 12:00:00 AM EST misc 100 USE TO TEST BLOOD SUGAR BEFORE MEALS AND AT BEDTIME USE TO TEST BLOOD SUGAR BEFORE MEALS AND AT BEDTIME SO LD: 06/03/2019 [facility] Lancets 06/01/2019 03:57:38 PM EST active [facility] Lancets 06/01/2019 03:57:38 PM EST active [facility] Lancets (Onet[employer] Delica Lancets) [address] [place] [address] 2018 03:57:38 PM EST active [facility] Lancets ([employer]et[employer] Delica Lancets) [address] [place] [address] 2018 03:57:38 PM EST active [facility] Lancets ([employer] Delica Lancets) [address] [place] [address] 2018 03:57:38 PM EST active [facility] Lancets ([employer] Delica Lancets) [address] [place] [address] 2018 03:57:38 PM EST active [facility] Lancets ([employer] Delica Lancets) [address] [place] [address] 2018 03:57:38 PM EST active [facility] 06/01/2019 03:57:38 PM EST active [facility] 06/01/2019 03:57:38 PM EST active [facility] Lancets ([employer] Delica Lancets) [address] [place] [address] 2018 03:57:38 PM EST active [facility] 4 mg 05/31/2019 12:00:00 AM EST [...] 05/04/2019 02:45:47 PM EDT 50 MG completed [facility] Sertraline 50 MG Oral Tablet Sertraline 05/04/2019 02:45:47 PM EDT 50 MG completed [facility] Sertraline 50 MG Oral Tablet Sertraline 05/04/2019 02:45:47 PM EDT 50 MG completed [facility] Sertraline 50 MG Oral Tablet Sertraline 05/04/2019 02:45:47 PM EDT 50 MG completed [facility] Sertraline 50 MG Oral Tablet Sertraline 05/04/2019 02:45:47 PM EDT 50 MG completed [facility] Sertraline 50 MG Oral Tablet Sertraline 05/04/2019 02:45:47 PM EDT 50 MG completed [facility] Sertraline 50 MG Oral Tablet Sertraline 05/04/2019 02:45:47 PM EDT 50 MG completed [facility] Sertraline 50 MG Oral Tablet Sertraline 05/04/2019 02:45:47 PM EDT 50 MG completed [facility] Sertraline 50 MG Oral Tablet Sertraline 05/04/2019 02:45:47 PM EDT 50 MG completed [facility] Sertraline 50 MG Oral Tablet Sertraline 05/04/2019 02:45:47 PM EDT 50 MG completed [facility] Azithromycin 250 MG Oral Tablet Azithromycin 05/04/2019 01:58:56 PM EDT 250 MG completed [facility] Azithromycin 250 MG Oral Tablet Azithromycin (Zithroma x) 250 mg tablet Azithromycin (Zithromax) 250 mg tablet 05/04/2019 01:58:56 PM EDT 250 MG completed [facility] Azithromycin 250 MG Oral Tablet Azithromycin (Zithroma x) 250 mg tablet Azithromycin (Zithromax) 250 mg tablet 05/04/2019 01:58:56 PM EDT 250 MG completed [facility] Azithromycin 250 MG Oral Tablet Azithromycin (Zithroma x) 250 mg tablet Azithromycin (Zithromax) 250 mg tablet 05/04/2019 01:58:56 PM EDT 250 MG completed [facility] Azithromycin 250 MG Oral Tablet Azithromycin (Zithroma x) 250 mg tablet Azithromycin (Zithromax) 250 mg tablet 05/04/2019 01:58:56 PM EDT 250 MG completed [facility] Azithromycin 250 MG Oral Tablet Azithromycin 05/04/2019 01:58:56 PM EDT 250 MG completed [facility] Azithromycin 250 MG Oral Tablet Azithromycin 05/04/2019 01:58:56 PM EDT 250 MG completed [facility] Azithromycin 250 MG Oral Tablet Azithromycin (Zithroma x) 250 mg tablet Azithromycin (Zithromax) 250 mg tablet 05/04/2019 01:58:56 PM EDT 250 MG completed [facility] Azithromycin 250 MG Oral Tablet Azithromycin 05/04/2019 01:58:56 PM EDT 250 MG completed [facility] Azithromycin 250 MG Oral Tablet Azithromycin (Zithroma x) 250 mg tablet Azithromycin (Zithromax) 250 mg tablet 05/04/2019 01:58:56 PM EDT 250 MG completed [facility] 300 mg 05/04/2019 12:00:00 AM EDT capsule [...] 03:27:53 PM EDT 1 UNIT co mpleted [facility] 3 ML Insulin Lispro 100 UNT/ML Pen Injec tor Insulin Lispro (Humalog Kwikpen Insulin) 100 unit/mL insulin pen Insulin Lispro (Humalog Kwikpen Insulin) 100 unit/mL insulin pen 04/13/2019 03:27:53 PM EDT 1 UNIT co mpleted [facility] 3 ML Insulin Lispro 100 UNT/ML Pen Injector Insulin Lispro 04/13/2019 03:27:53 PM EDT 1 UNIT completed [facility] 3 ML Insulin Lispro 100 UNT/ML Pen Injec tor Insulin Lispro (Humalog Kwikpen Insulin) 100 unit/mL insulin pen Insulin Lispro (Humalog Kwikpen Insulin) 100 unit/mL insulin pen 04/13/2019 03:27:53 PM EDT 1 UNIT co mpleted [facility] 3 ML Insulin Lispro 100 UNT/ML Pen Injec tor Insulin Lispro (Humalog Kwikpen Insulin) 100 unit/mL insulin pen Insulin Lispro (Humalog Kwikpen Insulin) 100 unit/mL insulin pen 04/13/2019 03:27:53 PM EDT 1 UNIT co mpleted [facility] 3 ML Insulin Lispro 100 UNT/ML Pen Injector Insulin Lispro 04/13/2019 03:27:53 PM EDT 1 UNIT completed [facility] 3 ML Insulin Lispro 100 UNT/ML Pen [...] Sugar Diagnostic 01/26/2019 05:37:57 PM EDT completed [facility] Blood Sugar Diagnostic (Onetouch Verio Test Strips) strip 01/26/2019 05:37:57 PM EDT completed [facility] Blood Sugar Diagnostic 01/26/2019 05:37:57 PM EDT completed [facility] Blood Sugar Diagnostic 01/26/2019 05:37:57 PM EDT completed [facility] Blood Sugar Diagnostic (Onetouch Verio Test Strips) strip 01/26/2019 05:37:57 PM EDT completed [facility] Blood Sugar Diagnostic (Onetouch Verio Test Strips) strip 01/26/2019 05:37:57 PM EDT completed [facility] Blood Sugar Diagnostic (Onetouch Verio Test Strips) strip 01/26/2019 05:37:57 PM EDT completed [facility] Blood Sugar Diagnostic (Onetouch Verio Test Strips) strip 01/26/2019 05:37:57 PM EDT completed [facility] Blood Sugar Diagnostic 01/26/2019 05:37:57 PM EDT completed [facility] Blood Sugar Diagnostic (Onetouch Verio Test Strips) strip 01/26/2019 05:37:57 PM EDT completed [facility] 40 mg 01/26/2019 12:00:00 AM EDT tablet 30 TAKE ONE TABLET BY MOUTH EVERY DAY TAKE ONE TABLET BY MOUTH EVERY DAY SOLD: 06/24/2019 [facility] Insulin Glargine Insulin Glargine 01/19/2019 01:29:26 PM EDT 60 UNIT completed [facility] Insulin Glargine Insulin Glargine (Basag lar Kwikpen U-100 Insulin) 100 unit/mL (3 mL) insulin pen Insulin Glargine (Basaglar Kwikpen U-100 Insulin) 100 unit/mL (3 mL) insulin pen 01/19/2019 01:29:26 PM EDT 60 UNIT c ompleted [facility] Insulin Glargine Insulin Glargine (Basag lar Kwikpen U-100 Insulin) 100 unit/mL (3 mL) insulin pen Insulin Glargine (Basaglar Kwikpen U-100 Insulin) 100 unit/mL (3 mL) insulin pen 01/19/2019 01:29:26 PM EDT 60 UNIT c ompleted [facility] Insulin Glargine Insulin Glargine (Basag lar Kwikpen U-100 Insulin) 100 unit/mL (3 mL) insulin pen Insulin Glargine (Basaglar Kwikpen U-100 Insulin) 100 unit/mL (3 mL) insulin pen 01/19/2019 01:29:26 PM ED[facility] Insulin Glargine (Basag lar Kwikpen U-100 Insulin) 100 unit/mL (3 mL) insulin pen Insulin Glargine (Basaglar Kwikpen U-100 Insulin) 100 unit/mL (3 mL) insulin pen 01/19/2019 01:29:26 PM EDT [facility] Insulin Glargine Insulin Glargine 01/19/2019 01:29:26 PM EDT 60 UNIT completed [facility] Insulin Glargine Insulin Glargine (Basag lar Kwikpen U-100 Insulin) 100 unit/mL (3 mL) insulin pen Insulin Glargine (Basaglar Kwikpen U-100 Insulin) 100 unit/mL (3 mL) insulin pen 01/19/2019 01:29:26 PM EDT 60 UNIT c ompleted [facility] Insulin Glargine Insulin Glargine (Basag lar Kwikpen U-100 Insulin) 100 unit/mL (3 mL) insulin pen Insulin Glargine (Basaglar Kwikpen U-100 Insulin) 100 unit/mL (3 mL) insulin pen 01/19/2019 01:29:26 PM EDT [facility] E[facility]ole 40 MG Delayed Release Oral Capsule Esomep razole Magnesium Esomeprazole Magnesium 01/19/2019 01:25:55 PM EDT 40 MG completed [facility] Esomeprazole 40 MG Delayed Release Oral Capsule Esomeprazole Magnesium (Nexium) 40 mg capsule,delayed release(DR/EC) Esomeprazole Magnesium (Nexium) 40 mg capsule,delayed release(DR/EC) 01/19/2019 01:25:55 PM EDT 40 MG completed [facility] Esomeprazole 40 MG Delayed Release Oral Capsule Esomeprazole Magnesium (Nexium) 40 mg capsule,delayed release(DR/EC) Esomeprazole Magnesium (Nexium) 40 mg capsule,delayed release(DR/EC) 01/19/2019 01:25:55 PM EDT 40 MG completed [facility] Esomeprazole 40 MG Delayed Release Oral Capsule Esomep razole Magnesium Esomeprazole Magnesium 01/19/2019 01:25:55 PM EDT 40 MG completed [facility] Esomeprazole 40 MG Delayed Release Oral Capsule Esomeprazole Magnesium (Nexium) 40 mg capsule,delayed release(DR/EC) Esomeprazole Magnesium (Nexium) 40 mg capsule,delayed release(DR/EC) 01/19/2019 01:25:55 PM EDT 40 MG completed [facility] Esomeprazole 40 MG Delayed Release Oral Capsule Esomeprazole Magnesium (Nexium) 40 mg capsule,delayed release(DR/EC) Esomeprazole Magnesium (Nexium) 40 mg capsule,delayed release(DR/EC) 01/19/2019 01:25:55 PM EDT 40 MG completed [facility] Esomeprazole 40 MG Delayed Release Oral Capsule Esomeprazole Magnesium (Nexium) 40 mg capsule,delayed release(DR/EC) Esomeprazole Magnesium (Nexium) 40 mg capsule,delayed release(DR/EC) 01/19/2019 01:25:55 PM EDT 40 MG completed [facility] Esomeprazole 40 MG Delayed Release Oral Capsule Esomep razole Magnesium Esomeprazole Magnesium 01/19/2019 01:25:55 PM EDT 40 MG completed [facility] Esomeprazole 40 MG Delayed Release Oral Capsule Esomep razole Magnesium Esomeprazole Magnesium 01/19/2019 01:25:55 PM EDT 40 MG completed [facility] Esomeprazole 40 MG Delayed Release Oral Capsule Esomeprazole Magnesium (Nexium) 40 mg capsule,delayed release(DR/EC) Esomeprazole Magnesium (Nexium) 40 mg capsule,delayed release(DR/EC) 01/19/2019 01:25:55 PM EDT 40 MG completed [facility] 2.5 mg 01/14/2019 12:00:00 AM EDT [...] 01/13/2019 10:00:04 PM EDT 300 MG completed [facility] Ranitidine 150 MG Oral Tablet Ranitidine Hcl Ranitidine Hcl 01/13/2019 10:00:04 PM EDT 300 MG completed [facility] Ranitidine 150 MG Oral Tablet Ranitidine Hcl Ranitidine Hcl 01/13/2019 10:00:04 PM EDT 300 MG completed [facility] Ranitidine 150 MG Oral Tablet Ranitidine Hcl Ranitidine Hcl 01/13/2019 10:00:04 PM EDT 300 MG completed [facility] Ranitidine 150 MG Oral Tablet Ranitidine Hcl Ranitidine Hcl 01/13/2019 10:00:04 PM EDT 300 MG completed [facility] Ranitidine 150 MG Oral Tablet Ranitidine Hcl Ranitidine Hcl 01/13/2019 10:00:04 PM EDT 300 MG completed [facility] Ranitidine 150 MG Oral Tablet Ranitidine Hcl Ranitidine Hcl 01/13/2019 10:00:04 PM EDT 300 MG completed [facility] Ranitidine 150 MG Oral Tablet Ranitidine Hcl Ranitidine Hcl 01/13/2019 10:00:04 PM EDT 300 MG completed [facility] Ranitidine 150 MG Oral Tablet Ranitidine Hcl Ranitidine Hcl 01/13/2019 10:00:04 PM EDT 300 MG completed [facility] Ranitidine 150 MG Oral Tablet Ranitidine Hcl Ranitidine Hcl 01/13/2019 10:00:04 PM EDT 300 MG completed [facility] Ergocalciferol [id number] UNT Oral Capsule Er gocalciferol (Vitamin D2) (Vitamin D2) 50,000 unit capsule Ergocalciferol (Vitamin D2) (Vitamin D2) 50,000 unit capsule 01/13/2019 09:56:37 PM EDT 19443 UNIT completed [facility] Ergocalciferol 80687 UNT Oral Capsule Er gocalciferol (Vitamin D2) (Vitamin D2) 50,000 unit capsule Ergocalciferol (Vitamin D2) (Vitamin D2) 50,000 unit capsule 01/13/2019 09:56:37 PM EDT 81656 UNIT completed [facility] Ergocalciferol 66284 UNT Oral Capsule Er gocalciferol (Vitamin D2) (Vitamin D2) 50,000 unit capsule Ergocalciferol (Vitamin D2) (Vitamin D2) 50,000 unit capsule 01/13/2019 09:56:37 PM EDT 77808 UNIT completed [facility] Ergocalciferol 68754 UNT Oral Capsule Ergocalciferol ( Vitamin D2) Ergocalciferol (Vitamin D2) 01/13/2019 09:56:37 PM EDT 79319 [facility] Ergocalciferol [id number] UNT Oral Capsule Ergocalciferol ( Vitamin D2) Ergocalciferol (Vitamin D2) 01/13/2019 09:56:37 PM EDT 42392 [facility] Ergocalciferol 55697 UNT Oral Capsule Er gocalciferol (Vitamin D2) (Vitamin D2) 50,000 unit capsule Ergocalciferol (Vitamin D2) (Vitamin D2) 50,000 unit capsule 01/13/2019 09:56:37 PM EDT 43277 UNIT completed [facility] Ergocalciferol 08532 UNT Oral Capsule Ergocalciferol ( Vitamin D2) Ergocalciferol (Vitamin D2) 01/13/2019 09:56:37 PM EDT 56770 [facility] Ergocalciferol 43872 UNT Oral Capsule Er gocalciferol (Vitamin D2) (Vitamin D2) 50,000 unit capsule Ergocalciferol (Vitamin D2) (Vitamin D2) 50,000 unit capsule 01/13/2019 09:56:37 PM EDT 99155 UNIT completed [facility] Ergocalciferol 13432 UNT Oral Capsule Er gocalciferol (Vitamin D2) (Vitamin D2) 50,000 unit capsule Ergocalciferol (Vitamin D2) (Vitamin D2) 50,000 unit capsule 01/13/2019 09:56:37 PM EDT 07027 UNIT completed [facility] Ergocalciferol 67613 UNT Oral Capsule Ergocalciferol ( Vitamin D2) Ergocalciferol (Vitamin D2) 01/13/2019 09:56:37 PM EDT 68491 UNIT comp [facility] 60 mg 01/07/2019 12:00:00 AM EDT [...] 07:2 8:25 PM EDT 1 MG completed [facility] fluticasone furoate 0.2 MG/ACTUAT / kyra nterol 0.025 MG/ACTUAT Dry Powder Inhaler Fluticasone Furoate-Vilanterol (Breo Ellipta) 1 EACH blister with device Fluticasone Furoate-Vilanterol (Breo Ellipta) 1 EACH b cesar with device 12/26/2018 07:28:25 PM EDT 1 EACH completed [facility] Lancets ([facility] Lancets) 33 gauge misc 2018 07:28:25 PM EDT completed [facility] fluticasone furoate 0.2 MG/ACTUAT / kyra nterol 0.025 MG/ACTUAT Dry Powder Inhaler Fluticasone Furoate-Vilanterol Fluticasone Furoate-Vilanterol 12/26/2018 07:28:25 PM EDT 1 EACH completed [facility] Lancets 12/26/2018 07:28:25 PM EDT completed [facility] ropinirole 1 MG Oral Tablet Ropinirole Ropinirole 12/26/2018 07:2 8:25 PM EDT 1 MG completed [facility] atorvastatin 40 MG Oral Tablet Atorvastatin Atorvastatin 12/26/2018 07:28:25 PM EDT 40 MG completed [facility] Alprazolam 0.25 MG Oral Tablet [Xanax] Alprazolam (Nir ax) 0.25 MG tablet Alprazolam (Xanax) 0.25 MG tablet 12/26/2018 07:28:25 PM EDT 0.25 MG completed [facility] ropinirole 1 MG Oral Tablet Ropinirole Ropinirole 12/26/2018 07:2 8:25 PM EDT 1 MG completed [facility] Loratadine 10 MG Oral Tablet Loratadine 12/26/2018 07:28:25 PM EDT 10 MG completed [facility] montelukast 10 MG Oral Tablet Montelukast Montelukast 12/26/2018 07:28:25 PM EDT 10 MG completed [facility] Enalapril Maleate 2.5 MG Oral Tablet Enalapril Maleate 07:28:25 PM EDT 2.5 MG completed [facility] Loratadine 10 MG Oral Tablet Loratadine 12/26/2018 07:28:25 PM EDT 10 MG completed [facility] Loratadine 10 MG Oral Tablet Loratadine 12/26/2018 07:28:25 PM EDT 10 MG completed [facility] fluticasone furoate 0.2 MG/ACTUAT / kyra nterol 0.025 MG/ACTUAT Dry Powder Inhaler Fluticasone Furoate-Vilanterol (Breo Ellipta) 1 EACH blister with device Fluticasone Furoate-Vilanterol (Breo Ellipta) 1 EACH b cesar with device 12/26/2018 07:28:25 PM EDT 1 EACH completed [facility] Lancets ([employer]se [employer] Lancets) 33 gauge misc 2018 07:28:25 PM EDT completed [facility] ropinirole 1 MG Oral Tablet Ropinirole Ropinirole 12/26/2018 07:2 8:25 PM EDT 1 MG completed [facility] Lancets 12/26/2018 07:28:25 PM EDT completed [facility] fluticasone furoate 0.2 MG/ACTUAT / kyra nterol 0.025 MG/ACTUAT Dry Powder Inhaler Fluticasone Furoate-Vilanterol Fluticasone Furoate-Vilanterol 12/26/2018 07:28:25 PM EDT 1 EACH completed [facility] Alprazolam 0.25 MG Oral Tablet [Xanax] Alprazolam (Nir ax) 0.25 MG tablet Alprazolam (Xanax) 0.25 MG tablet 12/26/2018 07:28:25 PM EDT 0.25 MG completed [facility] Alprazolam 0.25 MG Oral Tablet [Xanax] Alprazolam (Nir ax) 0.25 MG tablet Alprazolam (Xanax) 0.25 MG tablet 12/26/2018 07:28:25 PM EDT 0.25 MG completed [facility] Lancets ([facility] Delica Lancets) [address] [facility] 2018 07:28:25 PM EDT completed [facility] Lancets ([facility] [address] [place] [address] 2018 07:28:25 PM EDT completed [facility] atorvastatin 40 MG Oral Tablet Atorvastatin Atorvastatin 12/26/2018 07:28:25 PM EDT 40 MG completed [facility] Loratadine 10 MG Oral Tablet Loratadine 12/26/2018 07:28:25 PM EDT 10 MG completed [facility] Enalapril Maleate 2.5 MG Oral Tablet Enalapril Maleate 07:28:25 PM EDT 2.5 MG completed [facility] montelukast 10 MG Oral Tablet Montelukast Montelukast 12/26/2018 07:28:25 PM EDT 10 MG completed [facility] ropinirole 1 MG Oral Tablet Ropinirole Ropinirole 12/26/2018 07:2 8:25 PM EDT 1 MG completed [facility] atorvastatin 40 MG Oral Tablet Atorvastatin Atorvastatin 12/26/2018 07:28:25 PM EDT 40 MG completed [facility] fluticasone furoate 0.2 MG/ACTUAT / kyra nterol 0.025 MG/ACTUAT Dry Powder Inhaler Fluticasone Furoate-Vilanterol (Breo Ellipta) 1 EACH blister with device Fluticasone Furoate-Vilanterol (Breo Ellipta) 1 EACH b cesar with device 12/26/2018 07:28:25 PM EDT 1 EACH completed [facility] montelukast 10 MG Oral Tablet Montelukast Montelukast 12/26/2018 07:28:25 PM EDT 10 MG completed [facility] Loratadine 10 MG Oral Tablet Loratadine 12/26/2018 07:28:25 PM EDT 10 MG completed [facility] montelukast 10 MG Oral Tablet Montelukast Montelukast 12/26/2018 07:28:25 PM EDT 10 MG completed [facility] Enalapril Maleate 2.5 MG Oral Tablet Enalapril Maleate 07:28:25 PM EDT 2.5 MG completed [facility] Loratadine 10 MG Oral Tablet Loratadine 12/26/2018 07:28:25 PM EDT 10 MG completed [facility] ropinirole 1 MG Oral Tablet Ropinirole Ropinirole 12/26/2018 07:2 8:25 PM EDT 1 MG completed [facility] Enalapril Maleate 2.5 MG Oral Tablet Enalapril Maleate 07:28:25 PM EDT 2.5 MG completed [facility] fluticasone furoate 0.2 MG/ACTUAT / kyra nterol 0.025 MG/ACTUAT Dry Powder Inhaler Fluticasone Furoate-Vilanterol (Breo Ellipta) 1 EACH blister with device Fluticasone Furoate-Vilanterol (Breo Ellipta) 1 EACH b cesar with device 12/26/2018 07:28:25 PM EDT 1 EACH completed [facility] Enalapril Maleate 2.5 MG Oral Tablet Enalapril Maleate 07:28:25 PM EDT 2.5 MG completed [facility] Loratadine 10 MG Oral Tablet Loratadine 12/26/2018 07:28:25 PM EDT 10 MG completed [facility] montelukast 10 MG Oral Tablet Montelukast Montelukast 12/26/2018 07:28:25 PM EDT 10 MG completed [facility] Lancets (Jesse Pro Lancets) 33 gauge misc 2018 07:28:25 PM EDT completed [facility] atorvastatin 40 MG Oral Tablet Atorvastatin Atorvastatin 12/26/2018 07:28:25 PM EDT 40 MG completed [facility] montelukast 10 MG Oral Tablet Montelukast Montelukast 12/26/2018 07:28:25 PM EDT 10 MG completed [facility] Lancets 12/26/2018 07:28:25 PM EDT completed [facility] ropinirole 1 MG Oral Tablet Ropinirole Ropinirole 12/26/2018 07:2 8:25 PM EDT 1 MG completed [facility] Alprazolam 0.25 MG Oral Tablet [Xanax] Alprazolam 12/26/2018 07:2 8:25 PM EDT 0.25 MG completed [facility] ropinirole 1 MG Oral Tablet Ropinirole Ropinirole 12/26/2018 07:2 8:25 PM EDT 1 MG completed [facility] Enalapril Maleate 2.5 MG Oral Tablet Enalapril Maleate 07:28:25 PM EDT 2.5 MG completed [facility] Loratadine 10 MG Oral Tablet Loratadine 12/26/2018 07:28:25 PM EDT 10 MG completed [facility] fluticasone furoate 0.2 MG/ACTUAT / kyra nterol 0.025 MG/ACTUAT Dry Powder Inhaler Fluticasone Furoate-Vilanterol (Breo Ellipta) 1 EACH blister with device Fluticasone Furoate-Vilanterol (Breo Ellipta) 1 EACH b cesar with device 12/26/2018 07:28:25 PM EDT 1 EACH completed [facility] Alprazolam 0.25 MG Oral Tablet [Xanax] Alprazolam (Nir ax) 0.25 MG tablet Alprazolam (Xanax) 0.25 MG tablet 12/26/2018 07:28:25 PM EDT 0.25 MG completed [facility] Alprazolam 0.25 MG Oral Tablet [Xanax] Alprazolam 12/26/2018 07:2 8:25 PM EDT 0.25 MG completed [facility] Enalapril Maleate 2.5 MG Oral Tablet Enalapril Maleate 07:28:25 PM EDT 2.5 MG completed [facility] Enalapril Maleate 2.5 MG Oral Tablet Enalapril Maleate 07:28:25 PM EDT 2.5 MG completed [facility] Lancets 12/26/2018 07:28:25 PM EDT completed [facility] montelukast 10 MG Oral Tablet Montelukast Montelukast 12/26/2018 07:28:25 PM EDT 10 MG completed [facility] atorvastatin 40 MG Oral Tablet Atorvastatin Atorvastatin 12/26/2018 07:28:25 PM EDT 40 MG completed [facility] system fluticasone furoate 0.2 MG/ACTUAT / kyra nterol 0.025 MG/ACTUAT Dry Powder Inhaler Fluticasone Furoate-Vilanterol (Breo Ellipta) 1 EACH blister with device Fluticasone Furoate-Vilanterol (Breo Ellipta) 1 EACH b cesar with device 12/26/2018 07:28:25 PM EDT 1 EACH completed [facility] atorvastatin 40 MG Oral Tablet Atorvastatin Atorvastatin 12/26/2018 07:28:25 PM EDT 40 MG completed [facility] ropinirole 1 MG Oral Tablet Ropinirole Ropinirole 12/26/2018 07:2 8:25 PM EDT 1 MG completed [facility] atorvastatin 40 MG Oral Tablet Atorvastatin Atorvastatin 12/26/2018 07:28:25 PM EDT 40 MG completed [facility] fluticasone furoate 0.2 MG/ACTUAT / kyra nterol 0.025 MG/ACTUAT Dry Powder Inhaler Fluticasone Furoate-Vilanterol Fluticasone Furoate-Vilanterol 12/26/2018 07:28:25 PM EDT 1 EACH completed [facility] Enalapril Maleate 2.5 MG Oral Tablet Enalapril Maleate 07:28:25 PM EDT 2.5 MG completed [facility] Lancets (Jesse Pro Lancets) 33 gauge misc 2018 07:28:25 PM EDT completed [facility] atorvastatin 40 MG Oral Tablet Atorvastatin Atorvastatin 12/26/2018 07:28:25 PM EDT 40 MG completed [facility] system Alprazolam 0.25 MG Oral Tablet [Xanax] Alprazolam (Nir ax) 0.25 MG tablet Alprazolam (Xanax) 0.25 MG tablet 12/26/2018 07:28:25 PM EDT 0.25 MG completed [facility] Alprazolam 0.25 MG Oral Tablet [Xanax] Alprazolam (Nir ax) 0.25 MG tablet Alprazolam (Xanax) 0.25 MG tablet 12/26/2018 07:28:25 PM EDT 0.25 MG completed [facility] montelukast 10 MG Oral Tablet Montelukast Montelukast 12/26/2018 07:28:25 PM EDT 10 MG completed [facility] system Enalapril Maleate 2.5 MG Oral Tablet Enalapril Maleate 07:28:25 PM EDT 2.5 MG completed [facility] system 0.5 mg-3 mg(2.5 mg base)/3 mL 11/14/2018 12:00:0 0 AM EDT solution for nebulization 360 USE 1 VIAL VIA NEBULIZER FOUR TI MES A DAY USE 1 VIAL VIA NEBULIZER FOUR TIMES A DAY SOLD: 06/01/2019 [facility] gabapentin 300 MG Oral Capsule Gabapentin Gabapentin 2018 11:21:35 PM EDT 300 MG completed [facility] gabapentin 300 MG Oral Capsule Gabapentin Gabapentin 2018 11:21:35 PM EDT 300 MG completed [facility] gabapentin 300 MG Oral Capsule Gabapentin Gabapentin 2018 11:21:35 PM EDT 300 MG completed [facility] gabapentin 300 MG Oral Capsule Gabapentin Gabapentin 2018 11:21:35 PM EDT 300 MG completed [facility] gabapentin 300 MG Oral Capsule Gabapentin Gabapentin 2018 11:21:35 PM EDT 300 MG completed [facility] gabapentin 300 MG Oral Capsule Gabapentin Gabapentin 2018 11:21:35 PM EDT 300 MG completed [facility] gabapentin 300 MG Oral Capsule Gabapentin Gabapentin 2018 11:21:35 PM EDT 300 MG completed [facility] gabapentin 300 MG Oral Capsule Gabapentin Gabapentin 2018 11:21:35 PM EDT 300 MG completed [facility] gabapentin 300 MG Oral Capsule Gabapentin Gabapentin 2018 11:21:35 PM EDT 300 MG completed [facility] gabapentin 300 MG Oral Capsule Gabapentin Gabapentin 2018 11:21:35 PM EDT 300 MG completed [facility] 10 mg 11/05/2018 12:00:00 AM EDT tablet 30 TAKE ONE TABLET BY MOUTH EVERY DAY TAKE ONE TABLET BY MOUTH EVERY DAY SOLD: 06/24/2019 [facility] Epinephrine Epinephrine 06/27/2017 03:59:00 PM EST 0.3 MG completed [facility] Epinephrine Epinephrine 06/27/2017 03:59:00 PM EST 0.3 MG completed [facility] Epinephrine Epinephrine (Epipen) 0.3 MG/0.3 ML auto-in jector Epinephrine (Epipen) 0.3 MG/0.3 ML auto-injector 06/27/2017 03:59:00 PM EST 0.3 MG completed [facility] Epinephrine Epinephrine (Epipen) 0.3 MG/0.3 ML auto-in jector Epinephrine (Epipen) 0.3 MG/0.3 ML auto-injector 06/27/2017 03:59:00 PM EST 0.3 MG completed [facility] Epinephrine Epinephrine (Epipen) 0.3 MG/0.3 ML auto-in jector Epinephrine (Epipen) 0.3 MG/0.3 ML auto-injector 06/27/2017 03:59:00 PM EST 0.3 MG completed [facility] Epinephrine Epinephrine (Epipen) 0.3 MG/0.3 ML auto-in jector Epinephrine (Epipen) 0.3 MG/0.3 ML auto-injector 06/27/2017 03:59:00 PM EST 0.3 MG completed [facility] Epinephrine Epinephrine (Epipen) 0.3 MG/0.3 ML auto-in jector Epinephrine (Epipen) 0.3 MG/0.3 ML auto-injector 06/27/2017 03:59:00 PM EST 0.3 MG completed [facility] Epinephrine Epinephrine (Epipen) 0.3 MG/0.3 ML auto-in jector Epinephrine (Epipen) 0.3 MG/0.3 ML auto-injector 06/27/2017 03:59:00 PM EST 0.3 MG completed [facility] Insurance Providers Payer name Policy type / Coverage type Policy ID Covered green party ID Covered green party's relationship to collier Policy Collier Plan Information UNHC COMMUNITY PLAN MCDHMO [id number] SP [id number] UNHC COMMUNITY PLAN MCDHMO [id number] SP [id number] [facility] COMMUNITY PLAN [id number] 0 [id number] UN COMMUNITY PLAN XIX [id number] 18 [id number] [facility](MCAID) O [id number] S [id number] UNHC COMMUNITY PLAN MCDHMO [id number] SP [id number] UN COMMUNITY PLAN MCDHMO [id number] SP [id number] [facility] MEDICAID [id number] Self [id number] [place] Medig[place] Part [place] [id number] Self [id number] [facility] [place] [facility] Maintenance Organization (HMO) [id number] Self [id number] [facility] [place] Medigap Part B [id number] Self [id number] [facility] COMMUNITY [id number] Patient [id number] [facility] COMMUNITY UNAVAILABLE Patient UNAV AILABLE MEDICAID [id number] Patient [id number] [facility] [id number] Preferred Provider Organization (PPO) [id number] [facility] [address] [id number] Preferred Provider Organization (PPO) [id number] [facility] Other 0 Self 0 [place] Medig[place] Part [place] [id number] Self [id number] [facility] [place] Health Maintenance Organization (HMO) [id number] Self [id number] [facility] COMMUNITY PLAN [id number] 0 1 [id number] [place] [id number] Self [id number] [facility] [place] [facility] Maintenance Organization (HMO) [id number] Self [id number] [facility] COMMUNITY PLAN [id number] 0 1 [id number] [facility] MEDICAID PI PI [facility] MEDICAID [id number] Radha [id number] MEDICAID [id number] Radha [id number] [place] [id number] Self [id number] [facility] Health Maintenance Organization (HMO) [id number] Self [id number] [facility]CR Medigap Part B [id number] Self [id number] [facility] Community Plan Commercial [id number] Self [id number] [place] [id number] Self [id number] [facility] Health Maintenance Organization (HMO) [id number] Self [id number] [place] [id number] Self [id number] [facility] Health Maintenance Organization (HMO) [id number] Self [id number] [facility] Medicaid Medicaid [id number] Self [id number] [place] [id number] Self [id number] [facility] Health Maintenance Organization (HMO) [id number] Self [id number] [place] [id number] Self [id number] [facility] Health Maintenance Organization (HMO) [id number] Self [id number] Ghi FHP-(DO Not Use) Medigap Part B [id number] Self [id number] [facility] Community Plan Commercial [id number] Self [id number] [facility] Hmo Commercial [id number] Self [id number] Ghi FHP-(DO Not Use) Medigap Part B [id number] Self [id number] [facility] Community Plan Commercial [id number] Self [id number] [place] [id number] Self [id number] Ghi FHP-(DO Not Use) Medigap Part B [id number] Self [id number] Ghi FHP-(DO Not Use) Medigap Part B [id number] Self [id number] Ghi FHP-(DO Not Use) Medigap Part B [id number] Self [id number] [facility] COMMUNITY PLAN [facility] [id number] SP [id number] [facility] COMMUNITY PLAN MCDO [id number] SP [id number] [facility] Community Plan Commercial Self [facility](MCAID) O [id number] S [id number] [facility] [id number] MEDICAID [id number] SP [id number] Medicaid Dental P [id number] S [id number] Sliding Fee Scale S [id number] S [id number] Problems, Conditions, and Diagnoses Code Display Name Description Problem Type Effective Dates Data Source(s) L30.4 [id number] Intertrigo Problem 01/10/2020 12:00:00 AM ED T eCW1 ([facility]ly [facility]) E11.9 [id number] Type 2 diabetes mellitus without complica tions Problem 12/17/2019 12:00:00 AM EDT eCW1 (Formerly [facility]) Z79.4 [id number] senior living (current) use of insulin Proble m 12/17/2019 12:00:00 AM EDT eCW1 ([facility]ly [facility]) A49.8 678974145 Infection due to Enterobacter aerogenes P roblem 12/17/2019 12:00:00 AM EDT eCW1 ([facility]) 52389597 Diplopia Diplopia Problem 12/06/2019 12:00:00 AM ED T [facility] ([facility]) J45.41 599215016 Moderate persistent asthma with exacerbat ion Problem 11/20/2019 12:00:00 AM EDT eCW1 ([facility]) J45.41 596001837 Moderate persistent asthma with exacerbat ion Problem 11/20/2019 12:00:00 AM EDT eCW1 ([facility]) 92746226 Restless legs Restless legs Problem 06/20/2019 12:00:00 AM EST [facility] ([facility]) 51915316 Hypersomnia Hypersomnia Problem 06/20/2019 12:00:00 AM EST [facility] ([facility]) 09256396 Obstructive sleep apnea syndrome Obstructive sle ep apnea syndrome Problem 06/20/2019 12:00:00 AM EST [facility] ([facility]) H268 Other specified cataract Other specified cataract Diag nosis 04/30/2020 08:30:00 AM EDT [facility] Surgeries/Procedures Procedure Description Date Indications Data Source(s) Viral antigen assay (procedure) 07/24/2020 12:00:00 AM [facility] Viral antigen assay (procedure) 07/24/2020 12:00:00 AM [facility] Measurement of occult blood in stool specimen using immunoas say (procedure) 04/16/2020 12:00:00 AM [facility] Measurement of occult blood in stool specimen using immunoas say (procedure) 04/16/2020 [facility] of occult blood in stool specimen using immunoas say (procedure) 04/16/2020 12:00:00 AM [facility] Measurement of occult blood in stool specimen using immunoas say (procedure) 04/16/2020 12:00:00 AM [facility] Radiography of gastrointestinal tract (procedure) 01/31/2020 09:47:00 AM [facility] Radiography of gastrointestinal tract (procedure) 01/31/2020 09:47:00 AM [facility] Radiography of gastrointestinal tract (procedure) 01/31/2020 09:47:00 AM [facility] Radiography of gastrointestinal tract (procedure) 01/31/2020 09:47:00 AM [facility] Radiography of gastrointestinal tract (procedure) 01/31/2020 09:47:00 AM [facility] Radiography of gastrointestinal tract (procedure) 01/31/2020 09:47:00 AM [facility] Ultrasonography of abdomen (procedure) 01/31/2020 09:0 0:00 AM [facility] Ultrasonography of abdomen (procedure) 01/31/2020 09:0 0:00 AM [facility] Ultrasonography of abdomen (procedure) 01/31/2020 09:0 0:00 AM [facility] Ultrasonography of abdomen (procedure) 01/31/2020 09:0 0:00 AM [facility] Ultrasonography of abdomen (procedure) 01/31/2020 09:0 0:00 AM [facility] Ultrasonography of abdomen (procedure) 01/31/2020 09:0 0:00 AM [facility] Bronchospasm Evaluation 12/25/2019 12:00:00 AM EDT [facility] ([facility], ) Maximum Breathing Capacity, Maximal Voluntary Ventilation 12/25/2019 12:00:00 AM EDT [facility] ([facility] ) Plethysmography Determination Lung Volumes & Per Airway Resi st 12/25/2019 12:00:00 AM EDT [facility] DIFFUSING CAPACITY 12/25/2019 12:00:00 AM EDT [facility] ([facility], ) PHYSICIAN TELEPHONE EVALUATION 11-20 MIN 11/08/2019 12 :00:00 AM EDT eCW1 ([facility]) Mycobacteria culture (procedure) 11/03/2019 12:00:00 A [facility] Acid fast stain method (procedure) 11/03/2019 12:00:00 AM [facility] AFB Specimen Processing Tissue 11/03/2019 12:00:00 AM [facility] Mycobacteria culture (procedure) 11/03/2019 12:00:00 A [facility] Acid fast stain method (procedure) 11/03/2019 12:00:00 AM [facility] AFB Specimen Processing Tissue 11/03/2019 12:00:00 AM [facility] Mycobacteria culture (procedure) 11/03/2019 12:00:00 A [facility] Acid fast stain method (procedure) 11/03/2019 12:00:00 AM [facility] AFB Specimen Processing Tissue 11/03/2019 12:00:00 AM [facility] Mycobacteria culture (procedure) 11/03/2019 12:00:00 A [facility] Acid fast stain method (procedure) 11/03/2019 12:00:00 AM [facility] AFB Specimen Processing Tissue 11/03/2019 12:00:00 AM [facility] Mycobacteria culture (procedure) 11/03/2019 12:00:00 A [facility] Acid fast stain method (procedure) 11/03/2019 12:00:00 AM [facility] AFB Specimen Processing Tissue 11/03/2019 12:00:00 AM [facility] Mycobacteria culture (procedure) 11/03/2019 12:00:00 A [facility] Acid fast stain method (procedure) 11/03/2019 12:00:00 AM [facility] AFB Specimen Processing Tissue 11/03/2019 12:00:00 AM [facility] Mycobacteria culture (procedure) 11/03/2019 12:00:00 A Salvatore [facility] Acid fast stain method (procedure) 11/03/2019 12:00:00 AM [facility] AFB Specimen Processing Tissue 11/03/2019 12:00:00 AM [facility] Spirometry 07/30/2019 12:00:00 AM RJ CARLSON ([facility], ) Diagnostic radiography of lumbar spine (procedure) 06/28/2019 12:44:00 PM [facility] Skeletal X-ray of pelvis and hip (procedure) 9 12:44:00 PM [facility] Diagnostic radiography of lumbar spine (procedure) 06/28/2019 12:44:00 PM [facility] Skeletal X-ray of pelvis and hip (procedure) 9 12:44:00 PM [facility] Diagnostic radiography of lumbar spine (procedure) 06/28/2019 12:44:00 PM [facility] Skeletal X-ray of pelvis and hip (procedure) 9 12:44:00 PM [facility] Diagnostic radiography of lumbar spine (procedure) 06/28/2019 12:44:00 PM [facility] Skeletal X-ray of pelvis and hip (procedure) 9 12:44:00 PM [facility] Diagnostic radiography of lumbar spine (procedure) 06/28/2019 12:44:00 PM [facility] Skeletal X-ray of pelvis and hip (procedure) 9 12:44:00 PM [facility] Diagnostic radiography of lumbar spine (procedure) 06/28/2019 12:44:00 PM [facility] Skeletal X-ray of pelvis and hip (procedure) 9 12:44:00 PM [facility] Diagnostic radiography of lumbar spine (procedure) 06/28/2019 12:44:00 PM [facility] Skeletal X-ray of pelvis and hip (procedure) 9 12:44:00 PM [facility] Screening mammography (procedure) 06/01/2019 02:55:00 PM [facility] Screening mammography (procedure) 06/01/2019 02:55:00 PM [facility] Screening mammography (procedure) 06/01/2019 02:55:00 PM [facility] Screening mammography (procedure) 06/01/2019 02:55:00 PM [facility] Screening mammography (procedure) 06/01/2019 02:55:00 PM [facility] Screening mammography (procedure) 06/01/2019 02:55:00 PM [facility] Screening mammography (procedure) 06/01/2019 02:55:00 PM [facility] Screening mammography (procedure) 06/01/2019 02:55:00 PM [facility] Results ID Date Data Source [id number] 07/30/2020 03:17:00 PM [facility] Patient Name: ISIDRA YANEZ : 1960 Sex: F Pt Unit #: [id number] Location:[facility] Provider: Visit Date/Time: 07/30/20 Primary Insurance: [facility] Secondary Insurance: Self Pay ADDENDUM Patient called me back to say she had decided to go to [facility] since all of her specialist work out of [facility] and would be available for consult particularly Dr. Ambriz so she is headed to [facility] for evaluation and possible admission. <Electronically signed by Lindsay Huitron DO> 07/30/20 9811 Intake Intake Visit Reasons: Telemed Visit Nurse Note: patient doing a tele med visit to follow up on her COVID symptoms. patient has the following symptoms; fatigue, cough, and headache. 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 Required: No Is patient in pain?: No [...] 500 mg PO QMWF blood sugar diagnostic ([employer] Verio test strips) Use strips to test [...] QID MDD 4 Lactobacillus acidophilus PO lancets ([employer] Delica Lancets) to be used AC and [...] Screening Screening Have you traveled outside of [facility] or [facility] in the last 14 days.: [...] short of breath to wear her CPAP) [facility] Medical History Allergic rhinitis Anxiety [...] never substance use type: does not use ayan/episcopal: Yazidism seatbelt use: always drive intox or ride w/ intox tow 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 Her sisters [...] is questioning if she should go to [facility]. Review of Systems Const All systems reviewed [...] Ambriz for pulmonary, Dr. Wilkinson for neurology, [place] [facility] for her immunodeficiency Code(s): U07.1 - COVID-19 SNOMED Code(s): 948247056 Category: Medical Plan - Lindsay Chapman DO: [...] which manage her complex medical history in [place] so she wants to check and if the wait is reasonable at [facility] she prefers to go there she is going to call and let me know her final decision. Time spent Total time spent on medical discussion: 12 minutes Coding Level of Care Code Established Pt Telemed Visit (11-20 min) Patient Type Established Medical Decision Making Moderate Complexity Diagnoses COVID-19 U07.1 <Electronically signed by Lindsay Chapman DO> 07/30/20 7987 Name Value Range Interpretation Code Description Data Sarah rce(s) Supporting Document(s) ID Date Data Source [id number] 07/29/2020 10:15:00 AM [facility] Patient Name: ISIDRA YANEZ : 1960 Sex: F Pt Unit #: [id number] Location:[facility] Provider: Visit Date/Time: 07/29/20 Primary Insurance: [facility] Secondary Insurance: Self Pay Intake Intake Visit Reasons: Telemed Visit, covid 19, Asthma exacerbation 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 Required: No Is patient in pain?: No [...] 500 mg PO QMWF blood sugar diagnostic ([employer] Verio test strips) Use strips to test [...] QID MDD 4 Lactobacillus acidophilus PO lancets (Hupuuch [employer] Lancets) to be used AC and HS [...] and colleagues, with an educational andrew from [employer]. HIV Testing Offer - ages 13-64 Requirement [...] Screening Screening Have you traveled outside of [facility] or [facility] in the last 14 days.: [...] never substance use type: does not use ayan/episcopal: Yazidism seatbelt use: always drive intox or ride w/ intox tow bar driver: No working smoke detector in home: [...] baseline for which she follows with both [facility] in [place] and also [facility] [place]. 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 She is still on Zithromax 500mg 3 times a week. She also gets PFTs and sees Dr. Ambriz on a regular basis for management of her asthma. Her sleep apnea is managed by [facility] neurology group Dr. Wilkinson as she [...] may even be best to had to [facility] since all of the specialist that manage her multiple problems are available at [facility]. It matters less where she goes and just if she worsens that she gets to the[facility]. Coding Level of Care Code Telemed Visit (11-20 min) Diagnoses Exacerbation of asthma J45.901 Time Spent (min) 14 <Electronically signed by Lindsay Chapman DO> 07/29/20 1057 Name Value Range Interpretation Code Description Data Sarah rce(s) Supporting Document(s) ID Date Data Source [id number] 07/25/2020 10:09:00 AM [facility] Patient Name: ISIDRA YANEZ : 1960 Sex: F Pt Unit #: [id number] Location:[facility] Provider: Visit Date/Time: 07/24/20 [facility] Insurance: [facility] [...] Name Value Range Interpretation Code Description Data [facility] rce(s) Supporting Document(s) ID Date Data Source [id number] 07/24/2020 06:41:00 PM EST [facility] Reason for Exam: cough, shortness of mal athReason for Exam:: cough, shortness of breathRESULTS CALLED TO PUBLIC HEALTH (ANITHA VILLATORO) 07-24-20 [id number] result is "BinaxNow Covid-19 Ag negative"BinaxNow Covid-19 Ag is a rapid lateral flowimmunochromatographic immunoassayThis test detects both viable(live) and non-viable, SARS-COVand SARS-COV-2.Positive test results do not differentiate between SARS-COVand GNKH-OXL-6Uhldlrwp results , from patients with symptom onset beyondseven days, should be treated as presumptive andconfirmation with a molecular assay, if necessary, forpatient managementIf the differentiation of specific SARS viruses and strainsis needed, additional testing, in consultation with stateand local public health departments, is required.SARS-CoV-2 Ag Resp Ql IA.rapid Name Value Range Interpretation Code Description Data Sarah rce(s) Supporting Document(s) ID Date Data Source [id number] 07/24/2020 04:53:00 PM EST [facility] Name Value Range Interpretation Code Description Data [facility] Document(s) SARS-CoV-2 (COVID-19) Ag [Presence] in R espiratory specimen by Rapid immunoassay BinaxNow Covid-19 Ag positive [facility] This lab was ordered by [facility] and reported by [facility]. ID Date Data Source [id number] 07/24/2020 11:37:00 AM [facility] Patient Name: ISIDRA YANEZ : 1960 Sex: F Pt Unit #: [id number] Location:[facility] Provider: Visit Date/Time: 07/24/20 Primary Insurance: [...] positive. Pt has tx today with Mucinex. 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 Required: No Accompanied by: self Is patient [...] Screening Screening Have you traveled outside of [facility] or [facility] in the last 14 days.: [...] never substance use type: does not use ayan/episcopal: Yazidism seatbelt use: always drive intox or ride w/ intox tow bar driver: No working smoke detector in home: [...] Acute Code(s): R05 - Cough SNOMED Code(s): 16078489 Category: Medical Orders: Orders: BinaxNow Covid-19 Ag Today (2) Wheezes: Status: Acute Onset Date: 07/24/20 Code(s): R06.2 - Wheezing SNOMED Code(s): 79208414 Category: Medical Orders: Orders: BinaxNow Covid-19 Ag Today (3) Shortness of breath: Status: Acute Code(s): R06.02 - Shortness of breath SNOMED Code(s): 632803619 Category: Medical Orders: Orders: B inaxNow Covid-19 Ag Today Additional Comments Additional Comments: A covid test was ordered. Coding Level of Care Code Telemed Visit (5-10 min) Diagnoses Cough R05 Wheezes R06.2 Shortness of breath R06.02 Time Spent (min) 10 <Electronically signed by Zara Sparks DIAMOND SAW OPERATOR> 07/24/20 1214 Name Value Range Interpretation Code Description Data Sarah rce(s) Supporting Document(s) ID Date Data Source [id number] 07/24/2020 12:00:00 AM EST [facility] Name Value Range Interpretation Code Description Data Sarah rce(s) Supporting Document(s) SARS-CoV-2 (COVID-19) RNA [Presence] in Respiratory specimen by BONNIE with probe detection Positive for 2019-nCoV [facility] This lab was ordered by [facility] and reported by [facility]. ID Date Data Source [id number] 05/30/2020 03:10:00 PM [facility] Patient Name: ISIDRA YANEZ : 1960 Sex: F Pt Unit #: [id number] [facility]: Visit Date/Time: 05/30/20 Primary Insurance: [facility] Secondary Insurance: Self Pay Intake Intake Visit Reasons: Diabetes Nurse Note: patient s doing a tele med visit for follow up on her diabetes. consent was obtained. patient has eye appt on tuesday [facility]. last feet exam 02/2019. 11/2018. patient checks [...] 500 mg PO QMWF blood sugar diagnostic ([employer] Verio test strips) Use strips to test [...] QID MDD 4 Lactobacillus acidophilus PO lancets ([employer] Lancets) to be used AC and HS [...] Screening Screening Have you traveled outside of [facility] or [facility] in the last 14 days.: No Has patient experienced coronavirus symptoms: No [facility] Medical History (Updated 05/30/20 @ [...] never substance use type: does not use ayan/episcopal: Yazidism seatbelt use: always drive intox or ride w/ intox tow bar driver: No working smoke detector in home: [...] manages her myasthenia gravis. She follows with tubing drier for her immunodeficiency and still takes weekly injections of IVIG. 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 Her asthma has improved. She follows with cardiology group and also follows with [facility] and just had cataract surgery. She follows with me for her anxiety and depression and her diabetes hyperlipidemia and vitamin D deficiency. She also follows with [facility] for her gastroparesis hiatal hernia [...] easy bruising Details: Says she did see sem manager down in [place] and he feels her heme positive stool [...] diabetes mellitus with unspecified complications SNOMED Code(s): 14086142 Category: Medical Plan - Lindsay Chapman, DO: Since her last visit she has had no further hypoglycemia. She has been back to see her sem manager partly because of her gastroparesis and partly [...] (2) Allergic rhinitis: Status: Chronic SNOMED Code(s): 91609313 Category: Medical Plan - Lindsay Chapman DO: She does follow with tubing drier so she can certainly discuss her breakthrough symptoms with the tubing drier but I think they are likely due [...] R19.5 - Other fecal abnormalities SNOMED Code(s): 88910035 Category: Medical Plan - Lindsay Chapman, DO: [...] - Other specified anxiety disorders SNOMED Code(s): 076216860 Category: Medical Plan - Lindsay Chapman, DO: [...] Code(s): E78.2 - Mixed hyperlipidemia SNOMED Code(s): 358986306 Category: Carine Jain - Lindsay Chapman, DO: Stable on statin preferably keep LDL under 70 but at least under 100 (6) Mild vitamin D deficiency: Status: Chronic Comment: Vitamin D was in good range she will continue her current dose Code(s): E55.9 - Vitamin D deficiency, unspecified SNOMED Code(s): 65760666 Category: Medical Plan - Lindsay Huitron, DO: Stable on present dose recheck in 3 months (7) Hypertension, essential: Status: Chronic SNOMED Code(s): 14927758 Category: Carine Jain - Lindsay Chapman DO: Stable and she does spill microalbumin so we have her on renal protection with enalapril diet and exercise discussed Orders Instructions: Type 2 Diabetes in Adults: New Diagnosis (GEN) <Electronically signed by Lindsay Chapman DO> 05/30/20 2356 Name Value Range Interpretation Code Description Data Sarah rce(s) Supporting Document(s) ID Date Data Source [id number] 05/16/2020 12:45:00 PM EST [facility] Name Value Range Interpretation Code Description Data Sarah rce(s) Supporting Document(s) Follow Up [facility] WHSRSq9sDqTRMyCrMPXpFoaHXZsvJIsiFRPsN8M1FXwmLn5CTWhmtiGmKIQmIm7+SRGeXX7iee8aTZKo gMy [file] 9cCl1ZJjrvsGpjnwTnFOePdnD7S4FbzIWzLIhajuLGP+P/xkkgIQBN+Jose Cruz+Aifnqoec0pnMNiWrpmSfL [file] RyWIoKZOpyVO58yn+hPttJGT7/Jqa/Yazsg8KBTbol080fQoYr45ul3Z716dkLPBBtgSPOV5mXQsZ/Luis Carlos 5c5VJ6EoSdyK//3n55B5VgtJU2XEgB1sdEqILZy4/p 2nXY/b+HYWiGetJgQa4yfVLDIId8EEIF1fjNP76omSMOztt5/dzUQ6pI3Sjm6HmHRXpa8ljdN3cE1jZx sb2f9gJUF575bXTQ7sv0kmbnfENaCskkhb76KUy7+8DmghyyEVTjlKnvN0T+uvShAV6dM7vFLvfmbaNu W6c7Kxd6X9wtDESCyp31REXCO6jZecs7viBQIqRDa0 WSSsLlDP7xxfZgofAAguwbDvCcyUuEYc8xqWBGkK/xBIw3JkOGqrHZvUFGG9Whu8LVugOCAZmeJ9QyYT a/0PGw2/9t+kFJmw7muUQxBTSbZc/mVKoJ1tuvAbtQanTYy1HMii0EyLwGPd16cT1PkSz3pEeVhRIjF9 Yv1ONTqDTct25f9H8gRHvEnKXe1SzbV8xU4lit3eEy UpkK2zdx5/WNj/B/0ctq14OprBUlJOsg6+NRgoZG0RZ4LhhOCTVjsne4MzYRgRcOdd+4q6pIctys6IBc kNv3RCYzYShz8CGiPUAHzyJP4zC76uo2c30/qkhUk69hJ+NZleAfPfCMMqi9KSbjgKWIOBFt/6jjsFlI CrMOUlOuFV0I0PrywkWBtpCMetsDUhGEg7gE7d39cM fYVx4JDq+9muKA65eWA4zzLrJapXou/Ft4i1TdktcW6ckGc1ZgqJ0KpGYSc6WIr9l9gEScH/TpVbgEad MbWHfu71r0huoIvOwp6MV+30mkn+4j2ePQsyKACb08DU/1ps+IVF6Ep8qq+TQye3aLApe+KzDBYPc/ZJ n8t0Zz7Z5OyiGUDgKWAqaenpzopz1FYlWtarF1S+v9 0pRt+N5T7Akz6BqpDkvz5euPpshWqcy1EleBcBq8/Rico+Vt68K9+qce2HbyFpktrkk0Wi3+e6AYSIWY1M [file] e/n+fUU+JVcT4yXNxlqJipgqkOdIb8tGLMTp/p4/Supervisor Toy Assembly [file] gD4iJjtGsZxH4U4dl7w2JIhESFW1+ECONOMIC ANALYST+vVUJ5rSCL4YTkyf+Tzzpo4fV6vWxr6hWqlxv2S1fKE1DC3ZS [file] 6nmN/4O0eft3+orJjE1eauHZCo87H1bztFxqG7/GLAZE MIXER [file] López/qTlnBxZdnZ5LLTYv1M2+k8Ja/5fMv9fCl5iSdjqVnUX0u0LH8iPgpGlygj3GNDKiXGcuAcmABjSF [file] f+jVpc6z2JSbuu3Xu+JM0iq7avOJ9cQ+E/6Pe [file] eKObd1cCajORkwt/bQ5UHK0UO4zysX74XZPrQl1zADTljP3L+Jose Ramon/ms2tIM2wG/aQSeDj7jKmGgbIx3f [file] XYGLBeWceDZd0wJ9hUfBbajuEyWkP4Qy8ZTJ5E1GRCrx84ZO4Ho+2FORtLsaNEq1qdH+yM0NQ0mmj/DEL TORO dYsBu24VIaojWHmioba3uK5S0p1yoyo+Gq7dpCRAhb m2Ml1L2X26oZ0qrSeOOCnyq95pf0zgzMM6rl7c89LOFdYfCXes1GUQEi3yc12/CovrPKh1Fp2Ikb91P3 ecrBGrE8lmZO+1blCYFZawXpl3VdpmPA5ewcAis0Z5m31h1ULaja5LaH+galilea+Q5a0kjVU27gKRU7q3QS [file] production material coordinator/JP3FEkBWoZdmKCbBNxHj4FahArh+aWtQC/Wz5RJ+78zKc2g7c0CG1QQJB62rI/JYFl2aAqXhEH2Z8 [file] mH9X1LQI32Y3+6f/635Vf1YWXi97ZmUGkzG7z1hsr1 W8aBb/mmhgeK0QD41eFgPQHGwKGrOgVhK1EGlLk7R60I+xcM8zfEBj2DivgA2+K+kKKYZrC4ufr5Fid3 IPM1OZFaxTpn0PHoBC1CtBWqyNyx6+noLT+q5SoceOr4AiKgbzLAm3CuAtmfmdSqic9pVC8h9rq220JY 3mSaHYl7cjKO/+iUn30xVon+rkJSPB4D6GNgRXBnRE IySMhM4DqV35KFj7i48wfX9evnI//4hGaKPzRAAG1oQhAdanUE6cT5FZeMRTshjIKUD/kk80hGJpZEMR LWBFZy4JE9iR2bP/5+cASvYUKKp95h2Qsvk9OLH4mdwlYPCk++LfZ4S160PVL6TpstGewH6PTCPEzLf4 NIqBjqAyISSgUudTCZbXPKS/1ewBsOAmA4N0Tq0HEh OLy0Ua9j3Om5GMK88SRHDloMgFUjiTE2fnl4fLp2f1rEsX603DfnRsdLPioEu5eIriSldITYtgYhcJwY p1WjaZ/RRB4McrpJXpqSfpigaqYA/ty7yeFzLthFyxKh2U4T3ArnfamowbOhnCd95Ofw/rDEfU1Ufx08 auVLxL1MRYQq3/eZRvFBc/PNdYg6mNXysdiKA2yXSj FPRpttjaqL+qLpJU7xJb/6mTPYLFmpw0sLs6QciW1N9jgim6Rw6DATbu5iofpwfXLRx31+fox farmer+3NquZ8 [file] YBLOb68JK4DhxC+Jose R/+o9WwE8Sm/fbLnROlktjfNlp5yCh90ZU4VdWY9LL7k5qFFw3/jMaMmlydAV8l [file] nvQ0/EtUwtuugzXbfFj0BXTo9bClVBgyYHrT5V+street light servicer [file] Automatic Profile Sander Operator/K7fERZNiRajo/PrgLaO61Lfd9TkytGervechWGsL9StlYoIETEZfrRuyFUoBHfH0fX9vJamLvL2L [file] +Sxeq+ECONOMIC ANALYST/vtITAFXlp5HNJps/984q6QwH3PTCjh5Ba [file] Supervisor Toy Assembly/hw5i8nAuCPnWtYAp6TDHSYmSUGceGcR/dCmyqS/c6jIkS+4CxDVpPIAjK7nIxVrZw/VHVRWAKjjhe [file] Jose R/Yu9cy9Vm4CTM+8++Den3mXMFlufkKotlwRtwluop3LWsiwG9XXc3zPU5JQFDY74I/B51loBQ3lvk [file] dagWKGMqIcQkcuEqsEubsm4ZIVPpGeCaGwi1YwP1Revk/WoRaVEVxFm/sIN1UbChiZP3V5i8+4pjd/production material coordinator [file] securities [file] management specialist+xMx [file] General Engineer/d/CbUHpSeKEj27jakniF5S/rKSPjuC1Uw4rlrMqn+gsqWB1ug4L/xMOgsWxrwD/f/mk4iBkGvgIqv [file] s/Q1CpqkRg7QPfj+y1TITOG4yJs5atFdsl53YfKbWTUYc36sb3Gt77YOHpghIsvID+icuOnbkJ1aQ+Luis Carlos [file] m+8AXZXUMh+drafter structural++bBTWAAyDpsIeBtCecw7UiIM3RE [file] DnXXiRGFe2m+l+j0dFKMf08dTQIT3y7vX82+vT4QjXamZYy+QMuDG42vRDDiRg3tmYTrJG+VgVOn/lodging manager [file] LU9K5do7XTQkjekXX7SFVrkoxQ5eTjU4824/Ep9IT/loan servicing specialist/QvG/IAdXqsQmL6dZT05FgKNQeIlUFRPE/X [file] y5WoSG2Nn6FclaG2tcAsGQsbTCFfNUN7AHxiLADNRm== ID Date Data Source [id number] 05/13/2020 09:09:00 [place] [address] OPERATIVE SUMMARYNAME: RENATA Thrasher DATE OF : 1960TTENDING PHYS: Henna Moreira MD DATE: 04/30/20 MR#: [id number] OF PROCEDURE: 04/30/2020PREOPERATIVE DIAGNOSIS: Cataract, left eye.POSTOPERATIVE DIAGNOSIS: Cataract, left eyePROCEDURE: Phacoemulsification with cataract removal with the help of ORA, IOL lens useAUOOTO 19 diopter.SURGEON: Henna Moreira MD.MAPPING ANALYST: None.COMPLICATIONS: None.INDICATIONS: Decreased vision interfering with daily [...] salt solution followed by phacoemulsification in a kyqozy-ibg-qvulcgt methodwithin the capsular bag. Excess cortical material [...] condition.DD: Henna Moreira MD 05/13/20 08:16 1 [place] [address] OPERATIVE SUMMARYNAME: RENATA Thrasher DATE OF : 8ATTENDING PHYS: Henna Moreira MD DATE: 04/30/20 MR#: [id number]: [facility] 05/13/20 09:07DS: Henna Moreira MD 05/15/20 16:33 2 Name Value Range Interpretation Code Description Data Sarah rce(s) Supporting Document(s) ID Date Data Source [id number] 05/13/2020 12:04:00 PM [facility] Name Value Range Interpretation Code Description Data Sarah rce(s) Supporting Document(s) Hemoglobin A1c % 6.6 % 4.0-6.0 Above high normal L [facility] The following ranges may be u sed for interpretation of results: HGBA1C degree of glucose control: Greater than 8%: Action Suggested * Less than 7%: Goal of Diabetic Therapy Less than 6%: NormalFactors such as duration of diabetes, adherence to therapyand the age of the patient should also be considered inassessing the degree of blood glucose control.* High risk of developing halfway complications such asretinopathy, nephropathy, neuropathy, cardiopathy, etc. Some danger of hypoglycemic reaction in Type I diabetics.Some glucose intolerant individuals and "Sub Clinical"diabetics may demonstrate HGBA1C levels in this area. Glucose mean value [Moles/volume] in Blood Estimated f rom glycated hemoglobin 143 mg/dL [facility] An A1C of 7% - the goal of diabetic ther apy - is equivalentto an EAG of 154 mg/dl. ID Date Data Source [id number] 05/13/2020 12:34:00 PM EST [facility] Name Value Range Interpretation Code Description Data Sarah rce(s) Supporting Document(s) Urea nitrogen [Mass/volume] in Serum or Plasma 13 mg/dL 9-23 N [facility] Sodium [Moles/volume] in Serum or Plasma 141 mmol/L 132-146 N [facility] Potassium [Moles/volume] in Serum or Plasma 5.1 mmol/L 3.5-5.5 [facility] Chloride [Moles/volume] in Serum or Plasma 112 mmol/L 99-109 Above high normal [facility] Carbon dioxide, total [Moles/volume] in Serum or Plasma 22 mmol/L 20 -31 N [facility] Anion gap in Serum or Plasma 12 mmol/L 8-16 N [facility] Glucose [Mass/volume] in Serum or Plasma 80 mg/dL 74-106 N [facility] Creatinine 0.9 mg/dL 0.5-1.1 [facility] Glomerular filtration rate/1.73 sq M.pre dicted [Volume Rate/Area] in Serum or Plasma Greater Than 60 ABOVE 60 [facility] Alanine aminotransferase [Enzymatic acti vity/volume] in Serum or Plasma by With P-5'-P 22 U/L 10-[address] [facility] ital Aspartate aminotransferase [Enzymatic ac tivity/volume] in Serum or Plasma by With P-5'-P 19 U/L 0-33 N [facility] pital Alkaline phosphatase [Enzymatic activity/volume] in Serum or Plasma 132 U/L 45-129 Above high normal [facility] Calcium [Mass/volume] in Serum or Plasma 9.2 mg/dL 8.5-10.1 N [facility] Bilirubin.total [Mass/volume] in Serum or Plasma 0.4 mg/dL 0.3-1.2 N [facility] Albumin [Mass/volume] in Serum or Plasma by Bromocresol purple (BCP) dye binding method 3.5 g/dL 3.2-4.8 N [facility] Protein [Mass/volume] in Serum or Plasma 7.5 g/dL 5.7-8.2 [facility] ID Date Data Source [id number] 05/14/2020 07:26:00 AM [facility] Name Value Range Interpretation Code Description Data Sarah rce(s) Supporting Document(s) 25-Hydroxyvitamin D2+25-Hydroxyvitamin D3 [Mass/volume ] in Serum or Plasma 60 ng/mL 30-100 [facility] Vitamin D Status 25-OH Vitamin D :Deficiency: <20 ng/mLInsufficiency: 20 - 29 ng/mLOptimal: > or = 30 ng/mLFor 25-OH Vitamin D testing on patients onD2-supplementation and patients for whom quantitationof D2 and D3 fractions is required, the QuestAssureD(TM)25- OH VIT D, (D2,D3), LC/MS/MS is recommended: ordercode 29942 (patients >2yrs).See Note 1Note 1For additional information, please refer tohttp://education.POKKT/faq/LRN451(This link is being provided for informational/educational purposes only.)THIS TEST WAS PERFORMED AT:[facility] [id number] CANSECO MD ID Date Data Source [id number] 05/13/2020 12:34:00 PM [facility] Name Value Range Interpretation Code Description Data Sarah rce(s) Supporting Document(s) Triglycerides 134 mg/dL 0-150 [facility] Cholesterol 169 mg/dL 120-200 [facility] HDL Cholesterol 85 mg/dL [facility] HDL Less than 40 mg/dL: Major risk for CHDHDL Greater than 59 mg/dL: Low risk for CHD LDL Cholesterol, Calc 58 mg/dL 0-100 N [facility] ID Date Data Source [id number] 05/13/2020 11:35:00 AM EST [facility] Name Value Range Interpretation Code Description Data Sarah rce(s) Supporting Document(s) Leukocytes [#/volume] in Blood by Automated count 6.8 10*3/uL 4.45-10 .71 N [facility] Erythrocytes [#/volume] in Blood by Automated count 3.95 10*6/uL 4.20-5.40 Below low normal [facility] Hemoglobin [Moles/volume] in Blood 12.7 g/dL 10.7-15.4 N [facility] Hematocrit [Volume Fraction] of Blood by Automated count 41.4 % 3 7-47 N [facility] Erythrocyte mean corpuscular volume [Ent itic volume] in Cord blood by Automated count 104.8 fL 80-96 Above high normal [facility] Erythrocyte mean corpuscular hemoglobin [Entitic mass] by Automated count 32.2 pg 27-31 Above high normal [facility] spital Erythrocyte mean corpuscular hemoglobin concentration [Mass/volume] in Cord blood 30.7 g/dL 33-37 Below low normal [facility] Erythrocyte distribution width [Entitic volume] by Automated count 14 % 11-15 N [facility] Platelets [#/volume] in Blood by Automated count 288 10*3/uL 130-472 N [facility] Platelet mean volume [Entitic volume] in Blood 9.3 fL 9.1-13.1 N [facility] Neutrophils/100 leukocytes in Blood by Automated count 60.1 % 41- 77 N [facility] Neutrophils [#/volume] in Blood by Automated count 4.1 U 1.7-7.6 N [facility] Lymphocytes/100 leukocytes in Blood by Automated count 28.9 % 14- 46 N [facility] Lymphocytes [#/volume] in Blood by Automated count 2.0 U 0.6-4.6 N [facility] Monocytes/100 leukocytes in Blood by Automated count 7.9 % 4-12 N [facility] Monocytes [#/volume] in Blood by Automated count 0.5 U 0.2-1.2 N [facility] Eosinophils/100 leukocytes in Blood by Automated count 2.0 % 0-7 N [facility] Eosinophils [#/volume] in Blood by Automated count 0.1 U 0.0-0.5 N [facility] Basophils/100 leukocytes in Blood by Automated count 0.7 % 0.4-1 .3 N [facility] Basophils [#/volume] in Blood by Automated count 0.1 U 0.0-0.2 N [facility] NUCLEATED RED BLOOD CELL 0 % [facility] NUCLEATED RED BLOOD CELL# 0 U [facility] [place] Immature granulocytes [Presence] in Blood by Automated count 0-2 N [facility] Immature granulocytes [#/volume] in Blood by Automated count 0.0 U 0-0.1 N [facility] Manual Differential panel - Blood NO [facility] ID Date Data Source [id number] 05/13/2020 10:44:00 AM EST [facility] ([facility]) Name Value Range Interpretation Code Description Data Sarah rce(s) Supporting Document(s) 25-Hydroxyvitamin D2+25-Hydroxyvitamin D3 [Mass/volume ] in Serum or Plasma 60 ng/mL 30-100 [facility] ([facility]) <content>Vitamin D Status 25-OH Vitamin D:</content>
<content>Deficiency: <20 ng/mL</content>
<content>Insufficiency: 20 - 29 ng/mL</content>
<content>Optimal: > or = 30 ng/mL</content>
<content>For 25-OH Vitamin D testing on patients on</content>
<content>D2-supplementation and patients for whom quantitation</content>
<content>of D2 and D3 fractions is required, the QuestAssureD(TM)</content>
<content>25-OH VIT D, (D2,D3), LC/MS/MS is recommended: order</content>
<content>code 08823 (patients >2yrs).</content>
<content>See Note 1</content>
<content>Note 1</content>
<content>For additional information, please refer to</content>
<content>http://education.boomtrain.PayMins/faq/GGX854</cont ent>
<content>(This link is being provided for informational/</content>
<content>educational purposes only.)</content>
<content>THIS TEST WAS PERFORMED AT:</content>
<content>[facility]</content>
<content>[address]</content>
<content>[place] [address]</content>
<content>AHSAN CANSECO MD</content>
<content></content> ID Date Data Source [id number] 05/13/2020 10:44:00 AM EST [facility] ([facility], ) Name Value Range Interpretation Code Description Data Sarah rce(s) Supporting Document(s) Triglyceride [Mass/volume] in Serum or Plasma 134 mg/dL 0-150 [facility] ([facility], ) Cholesterol [Mass/volume] in Serum or Plasma 169 mg/dL 120-200 [facility] ([facility], ) Cholesterol in LDL [Mass/volume] in Serum or Plasma by calcu lation 58 mg/dL 0-100 [facility] ([facility], ) Cholesterol in HDL [Mass/volume] in Serum or Plasma 85 mg/dL [facility] ([facility], ) HDL Less than 40 mg/dL: Major risk for CHD HDL Greater than 59 mg/dL: Low risk for CHD ID Date Data Source [id number] 05/13/2020 10:44:00 AM EST [facility] ([facility], ) Name Value Range Interpretation Code Description Data Sarah rce(s) Supporting Document(s) Urea nitrogen [Mass/volume] in Serum or Plasma 13 mg/dL 9-23 [facility] ([facility], ) Sodium [Moles/volume] in Serum or Plasma 141 mmol/L 132-146 [facility] ([facility], ) Potassium [Moles/volume] in Serum or Plasma 5.1 mmol/L 3.5-5.5 [facility] ([facility]) Carbon dioxide, total [Moles/volume] in Serum or Plasma 22 mmol/L 20 -31 [facility] ([facility]) Chloride [Moles/volume] in Serum or Plasma 112 mmol/L 99-109 [facility] ([facility]) Anion gap in Serum or Plasma 12 mmol/L 8-16 [facility] ([facility]) Glucose [Mass/volume] in Serum or Plasma 80 mg/dL 74-106 [facility] ([facility]) Glomerular filtration rate/1.73 sq M.pre dicted [Volume Rate/Area] in Serum or Plasma Laboratory test result [facility] ([facility]) Creatinine 0.9 mg/dL 0.5-1.1 [facility] ([facility]) Alanine aminotransferase [Enzymatic acti vity/volume] in Serum or Plasma by With P-5'-P 22 U/L 10-49 [facility] ([facility]) Alkaline phosphatase [Enzymatic activity/volume] in Serum or Plasma 132 U/L 45-129 [facility] ([facility]) Aspartate aminotransferase [Enzymatic ac tivity/volume] in Serum or Plasma by With P-5'-P 19 U/L 0-33 [facility] ([facility], ) Calcium [Mass/volume] in Serum or Plasma 9.2 mg/dL 8.5-10.1 [facility] ([facility]) Bilirubin.total [Mass/volume] in Serum or Plasma 0.4 mg/dL 0.3-1.2 [facility] ([facility]) Protein [Mass/volume] in Serum or Plasma 7.5 g/dL 5.7-8.2 [facility] ([facility]) Albumin [Mass/volume] in Serum or Plasma by Bromocresol purple (BCP) dye binding method 3.5 g/dL 3.2-4.8 [facility] ([facility]) ID Date Data Source [id number] 05/13/2020 10:44:00 AM EST [facility] ([facility]) Name Value Range Interpretation Code Description Data Sarah rce(s) Supporting Document(s) Glucose mean value [Moles/volume] in Blood Estimated f rom glycated hemoglobin 143 mg/dL [facility] ([facility] ) An A1C of 7% - the goal of diabetic ther apy - is equivalent to an EAG of 154 mg/dl. Hemoglobin A1c/Hemoglobin.total in Blood 6.6 % 4.0-6.0 [facility] ([facility]) The following ranges may be used for [...] glucose control. * High risk of developing terminal superintendent complications such as retinopathy, nephropathy, neuropathy, cardiopathy, etc. Some danger of hypoglycemic reaction in Type I diabetics. Some glucose intolerant individuals and "Sub Clinical" diabetics may demonstrate HGBA1C levels in this area. ID Date Data Source [id number] 05/13/2020 10:44:00 AM EST [facility] ([facility]) Name Value Range Interpretation Code Description Data Sarah rce(s) Supporting Document(s) Leukocytes [#/volume] in Blood by Automated count 6.8 10*3/uL 4.45-10 .71 [facility] ([facility]) E78.2,R19.5,E11.8,E55.9,A31.0,K92.1 Hemoglobin [Moles/volume] in Blood 12.7 g/dL 10.7-15.4 [facility] ([facility]) E78.2,R19.5,E11.8,E55.9,A31.0,K92.1 Erythrocytes [#/volume] in Blood by Automated count 3.95 10*6/uL 4.20 -5.40 [facility] ([facility]) E78.2,R19.5,E11.8,E55.9,A31.0,K92.1 Hematocrit [Volume Fraction] of Blood by Automated count 41.4 % 3 7-47 [facility] ([facility]) E78.2,R19.5,E11.8,E55.9,A31.0,K92.1 Erythrocyte mean corpuscular volume [Ent itic volume] in Cord blood by Automated count 104.8 fL 80-96 [facility] ([facility]) E78.2,R19.5,E11.8,E55.9,A31.0,K92.1 Erythrocyte mean corpuscular hemoglobin [Entitic mass] by Automated count 32.2 pg 27-31 [facility] ([facility]) E78.2,R19.5,E11.8,E55.9,A31.0,K92.1 Erythrocyte mean corpuscular hemoglobin concentration [Mass/volume] in Cord blood 30.7 g/dL 33-37 [facility] ([facility]) E78.2,R19.5,E11.8,E55.9,A31.0,K92.1 Platelets [#/volume] in Blood by Automated count 288 10*3/uL 130-472 [facility] ([facility]) E78.2,R19.5,E11.8,E55.9,A31.0,K92.1 Erythrocyte distribution width [Entitic volume] by Automated count 14 % 11-15 [facility] ([facility]) E78.2,R19.5,E11.8,E55.9,A31.0,K92.1 Neutrophils [#/volume] in Blood by Automated count 4.1 U 1.7-7.6 [facility] ([facility]) E78.2,R19.5,E11.8,E55.9,A31.0,K92.1 Neutrophils/100 leukocytes in Blood by Automated count 60.1 % 41- 77 [facility] ([facility]) E78.2,R19.5,E11.8,E55.9,A31.0,K92.1 Platelet mean volume [Entitic volume] in Blood 9.3 fL 9.1-13.1 [facility] ([facility]) E78.2,R19.5,E11.8,E55.9,A31.0,K92.1 Lymphocytes [#/volume] in Blood by Automated count 2.0 U 0.6-4.6 [facility] ([facility]) E78.2,R19.5,E11.8,E55.9,A31.0,K92.1 Lymphocytes/100 leukocytes in Blood by Automated count 28.9 % 14- 46 [facility] ([facility]) E78.2,R19.5,E11.8,E55.9,A31.0,K92.1 Monocytes/100 leukocytes in Blood by Automated count 7.9 % 4-12 [facility] ([facility]) E78.2,R19.5,E11.8,E55.9,A31.0,K92.1 Monocytes [#/volume] in Blood by Automated count 0.5 U 0.2-1.2 [facility] E78.2,R19.5,E11.8,E55.9,A31.0,K92.1 Eosinophils/100 leukocytes in Blood by Automated count 2.0 % 0-7 [facility] E78.2,R19.5,E11.8,E55.9,A31.0,K92.1 Eosinophils [#/volume] in Blood by Automated count 0.1 U 0.0-0.5 [facility] E78.2,R19.5,E11.8,E55.9,A31.0,K92.1 Basophils [#/volume] in Blood by Automated count 0.1 U 0.0-0.2 [facility] E78.2,R19.5,E11.8,E55.9,A31.0,K92.1 Laboratory test finding (navigational concept) 0 % [facility] ([facility]) E78.2,R19.5,E11.8,E55.9,A31.0,K92.1 Basophils/100 leukocytes in Blood by Automated count 0.7 % 0.4-1 .3 [facility] ([facility]) E78.2,R19.5,E11.8,E55.9,A31.0,K92.1 Immature granulocytes [Presence] in Blood by Automated count 0.4 0-2 [facility] ([facility]) E78.2,R19.5,E11.8,E55.9,A31.0,K92.1 Laboratory test finding (navigational concept) 0 U [facility] ([facility]) E78.2,R19.5,E11.8,E55.9,A31.0,K92.1 Immature granulocytes [#/volume] in Blood by Automated count 0.0 U 0-0.1 [facility] ([facility]) E78.2,R19.5,E11.8,E55.9,A31.0,K92.1 Manual Differential panel - Blood Laboratory test result [facility] ([facility]) E78.2,R19.5,E11.8,E55.9,A31.0,K92.1 ID Date Data Source [id number] 04/28/2020 08:36:00 [place] [address] OPERATIVE SUMMARYNAME: RENATA Thrasher DATE OF : 9ATTENDING PHYS: Henna Moreira MD DATE: 04/09/20 MR#: [id number] OF PROCEDURE: 04/09/2020PREOPERATIVE DIAGNOSIS: Cataract, right eye.POSTOPERATIVE DIAGNOSIS: Cataract, right eyePROCEDURE: Phacoemulsification with intraocular lens implantation using AUOOTO 20diopters along with ORA.SURGEON: Henna Moreira MD.MAPPING ANALYST: None.COMPLICATIONS: None.INDICATIONS: Decreased vision interfering with daily [...] salt solution followed by phacoemulsification in a [id number] methodwithin the capsular bag. Excess cortical material [...] the recovery room in stable condition. [address] [place] [address] OPERATIVE SUMMARYNAME: RENATA Thrasher DATE OF : 1960TTENDING PHYS: Henna Moreira MD DATE: 04/09/20 MR#: [id number]: Henna Moreira MD 04/26/20 18:07DT: SSR 04/28/20 08:35DS: Henna Moreira MD 05/01/20 13:44 2 Name Value Range Interpretation Code Description Data Sarah rce(s) Supporting Document(s) ID Date Data Source [id number] 04/25/2020 10:03:00 AM EDT [facility] Name Value Range Interpretation Code Description Data Sarah rce(s) Supporting Document(s) SARS-CoV-2 (COVID19) [facility] This lab was ordered by [place] and reported by [employer]. ID Date Data Source [id number] 04/16/2020 12:54:00 PM EDT [facility] "NORMAL" FOR IFOB FECAL OCCULT BLOOD IS "NEGATIVE"THE [employer] iFOB IS AN IMMUNOCHEMICAL FECAL OCCULT BLOODTEST Name Value Range Interpretation Code Description Data Sarah rce(s) Supporting Document(s) IFOB ICT fecal occult bld Positive Abnormal (appli es to non-numeric results) [facility] ID Date Data Source [id number] 04/14/2020 09:20:00 AM EDT [facility] Patient Name: ISIDRA YANEZ : 1960 Sex: F Pt Unit #: [id number] Location:[facility] Provider: Visit Date/Time: 04/14/20 Primary [...] to proceed with colonoscopy. She does have sem manager Dale at [facility] and she does see him on a [...] comes and goes she denies any injuries. 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 Required: No Accompanied by: Self / Same [...] QID MDD 4 Lactobacillus acidophilus PO lancets ([employer] Del[employer]half Lancets) to be used AC and HS [...] allergy and immunology , [facility] for her eye care Fall Risk History [...] and colleagues, with an educational andrew from [employer]. HIV Testing Offer - ages 13-64 Requirement [...] Screening Screening Have you traveled outside of [facility] or [facility] in the last 14 days.: No Has patient experienced coronavirus symptoms: No [facility] Medical History Allergic rhinitis Anxiety [...] never substance use type: does not use ayan/episcopal: Yazidism seatbelt use: always drive intox or ride w/ intox tow bar driver: No working smoke detector in home: [...] the nurse and [facility] post right cataract surgery) Dietary [...] and 8. 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 She sees [facility] for her ophthalmology care and recent cataract surgery. She sees Dr. andrade and Dr. Ambriz for treatment of her MAC and management of her recurrent pneumonia and persistent exacerbation of asthma. She sees Dr. Kenney [facility] in [place] for her common variable immune deficiency syndrome [...] December 2018 when she was hospitalized at [facility] we are calling for that echo result. I manage her hyperlipidemia her diabetes her vitamin D deficiency her anxiety and depression and she is due for diabetes care next month so have ordered labs she also sees ENT in [place] and has had sinus surgery I will [...] by Lindsay Chapman DO> Date/Time Signed: 04/15/20 1536 Name Value Range Interpretation Code Description Data Sarah rce(s) Supporting Document(s) ID Date Data Source [id number] 03/21/2020 03:48:00 PM EDT [facility] Patient Name: ISIDRA YANEZ : 1960 Sex: F Pt Unit #: [id number] Location:[facility] Provider: Visit Date/Time: 03/21/20 Primary [...] wait two weeks for the next eye. 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 Required: No Accompanied by: Self / Same [...] 500 mg PO QMWF blood sugar diagnostic ([employer] Verio test strips) Use strips to test [...] QID MDD 4 Lactobacillus acidophilus PO lancets (Hupuuch DelBehalf Lancets) to be used AC and HS [...] Screening Screening Have you traveled outside of [facility] or [facility] in the last 14 days.: No Has patient experienced coronavirus symptoms: No [facility] Medical History Allergic rhinitis Anxiety [...] Ambriz who after seeing multitude of other personnel security specialist including [facility] diagnosed her with this persistent pneumonia [...] recently saw and his PA down in [place] for management of her reflux microaspiration and [...] by her treating neurologist Dr. Wilkinson at [facility]. She continues to see him on a [...] by Dr. Wilkinson her neurologist not her simplex operator recommend she bring it with her to [...] from her infectious disease doctor and her simplex operator that they feel her pulmonary status is [...] to get IVIG injections weekly from her tubing drier which have brought her level back to normal it in addition to following with pulmonary and infectious disease she sees Dr. Denis at [place] [facility] and he prescribes IV Ig shots that she takes at home weekly she has a common variable immune deficiency syndrome which contributes to her chronic issues and IVIG has helped bring her immunoglobulin levels back up into normal range Exam Const General: cooperative, comfortable, no acute distress and well groomed Nutritional Appearance: obese Orientation: alert, awake and oriented x3 [facility] Head: normocephalic and atraumatic Ears: hearing grossly [...] Route Admin Location Lot Number Expiration Date [facility] Manufactu rer 60 mcg IM left deltoid [id number] 01/07/21 48969-633-15 [employer]. Assessment Plan Assessment Plan (1) Encounter for [...] issue was Mycobacterium avium. Dr. Ambriz her simplex operator and Hans have worked together and her [...] methotrexate to treat her myasthenia gravis. Her tubing drier does have her on weekly IVIG injections [...] Name Value Range Interpretation Code Description Data [facility] Document(s) ID Date Data Source [id number] 02/21/2020 08:31:00 AM RADHIKA FERNANDEZ ([facility], ) Name Value Range Interpretation Code Description Data Sarah rce(s) Supporting Document(s) Afb Smear Laboratory test result REBECCA ([facility], ) Due to limited sensitivity, smear result s should be used as an adjunct in evaluating patient tuberculosis status. Cultural examination is highly recommended for clinical diagnosis. AFB smear Kinyoun NEGATIVE (NO AFB Seen ) Afb Culture Laboratory test result Salvatore CARLSON ([facility], ) Testing performed at reference lab . Rep ort copy to follow on a separate form. 04/07/20 REF LAB#:[id number] FINAL REPORT: 04/15/20 FULL REPORT IN LAB NOTES (eCW and [facility]). No Acid-Fast Bacilli Isolated after 6 Weeks. ID Date Data Source [id number] 02/21/2020 08:31:00 AM EDT [facility] Name Value Range Interpretation Code Description Data Sarah rce(s) Supporting Document(s) Gram Stain Laboratory test result Normal (applies to non-n umeric results) [facility] ([facility]) QUALITY: GOOD MANY WBCS FEW EPITHELIAL CELLS MODERATE GRAM POSITIVE COCCI IN CHAINS MODERATE GRAM POSITIVE RODS Sputum Culture Laboratory test result Normal (applies to non-numeric results) [facility] ([facility], ) <content>FULL REPORT IN LAB NOTES ([facility]</content>
<content>NORMAL TOMMY PRESENT</content>
<content></content>
<content>ORGANISM 1: [...] <=1 S</content>
<content></content> ID Date Data Source [id number] 02/03/2020 10:07:00 AM EDT [facility] Source Of Specimen: ST Name Value Range Interpretation Code Description Data Sarah rce(s) Supporting Document(s) Helicobacter pylori Ag [Presence] in Stool by Immunoassay Negative [facility] Performed at: RN - [facility] [place] [id number] Director: Constanza Saxena MD, Phone: [phone] ID Date Data Source [id number] 02/01/2020 12:45:00 PM EDT [facility] ([facility]) Name Value Range Interpretation Code Description Data Sarah rce(s) Supporting Document(s) Helicobacter pylori Ag [Presence] in Stool Laboratory test result [facility] ([facility]) R10.13,D83.9 ID Date Data Source [id number] 02/01/2020 10:18:00 AM EDT [facility] Name Value Range Interpretation Code Description Data Sarah rce(s) Supporting Document(s) Leukocytes [#/volume] in Blood by Automated count 6.6 10*3/uL 4.45-10 .71 N [facility] Erythrocytes [#/volume] in Blood by Automated count 3.94 10*6/uL 4.20-5.40 Below low normal [facility] Hemoglobin [Moles/volume] in Blood 12.7 g/dL 10.7-15.4 N [facility] Hematocrit [Volume Fraction] of Blood by Automated count 39.0 % 3 7-47 N [facility] Erythrocyte mean corpuscular volume [Ent itic volume] in Cord blood by Automated count 99.0 fL 80-96 Above high normal [facility] Erythrocyte mean corpuscular hemoglobin [Entitic mass] by Automated count 32.2 pg 27-31 Above high normal [facility] spital Erythrocyte mean corpuscular hemoglobin concentration [Mass/volume] in Cord blood 32.6 g/dL 33-37 Below low normal [facility] Erythrocyte distribution width [Entitic volume] by Automated count 13 % 11-15 N [facility] Platelets [#/volume] in Blood by Automated count 282 10*3/uL 130-472 N [facility] Platelet mean volume [Entitic volume] in Blood 8.9 fL 9.1-13. 1 Below low normal [facility] Neutrophils/100 leukocytes in Blood by Automated count 51.3 % 41- 77 N [facility] Neutrophils [#/volume] in Blood by Automated count 3.4 U 1.7-7.6 N [facility] Lymphocytes/100 leukocytes in Blood by Automated count 36.3 % 14- 46 N [facility] Lymphocytes [#/volume] in Blood by Automated count 2.4 U 0.6-4.6 N [facility] Monocytes/100 leukocytes in Blood by Automated count 8.4 % 4-12 N [facility] Monocytes [#/volume] in Blood by Automated count 0.6 U 0.2-1.2 N [facility] Eosinophils/100 leukocytes in Blood by Automated count 2.4 % 0-7 N [facility] Eosinophils [#/volume] in Blood by Automated count 0.2 U 0.0-0.5 N [facility] Basophils/100 leukocytes in Blood by Automated count 0.8 % 0.4-1 .3 N [facility] Basophils [#/volume] in Blood by Automated count 0.1 U 0.0-0.2 N [facility] NUCLEATED RED BLOOD CELL 0 % [facility] NUCLEATED RED BLOOD CELL# 0 U [facility] [place] Immature granulocytes [Presence] in Blood by Automated count 0-2 N [facility] Immature granulocytes [#/volume] in Blood by Automated count 0.1 U 0-0.1 N [facility] Manual Differential panel - Blood NO [facility] ID Date Data Source [id number] 02/01/2020 11:01:00 AM EDT [facility] Name Value Range Interpretation Code Description Data Sarah rce(s) Supporting Document(s) Urea nitrogen [Mass/volume] in Serum or Plasma 12 mg/dL 9-23 N [facility] Sodium [Moles/volume] in Serum or Plasma 142 mmol/L 132-146 [facility] Potassium [Moles/volume] in Serum or Plasma 4.6 mmol/L 3.5-5.5 [facility] Chloride [Moles/volume] in Serum or Plasma 114 mmol/L 99-109 Above high normal [facility] Carbon dioxide, total [Moles/volume] in Serum or Plasma 22 mmol/L 20 -31 [facility] Anion gap in Serum or Plasma 11 mmol/L 8-16 [facility] Glucose [Mass/volume] in Serum or Plasma 93 mg/dL 74-106 [facility] Creatinine 0.9 mg/dL 0.5-1.1 [facility] Glomerular filtration rate/1.73 sq M.pre dicted [Volume Rate/Area] in Serum or Plasma Greater Than 60 ABOVE 60 [facility] Alanine aminotransferase [Enzymatic acti vity/volume] in Serum or Plasma by With P-5'-P 20 U/L 10-49 [facility] ital Aspartate aminotransferase [Enzymatic ac tivity/volume] in Serum or Plasma by With P-5'-P 13 U/L 0-33 N [facility] pital Alkaline phosphatase [Enzymatic activity/volume] in Serum or Plasma 119 U/L 45-129 [facility] Calcium [Mass/volume] in Serum or Plasma 8.6 mg/dL 8.5-10.1 [facility] Bilirubin.total [Mass/volume] in Serum or Plasma 0.2 mg/dL 0.3-1.2 Below low normal [facility] Albumin [Mass/volume] in Serum or Plasma by Bromocresol purple (BCP) dye binding method 3.4 g/dL 3.2-4.[address] [facility] ital Protein [Mass/volume] in Serum or Plasma 7.3 g/dL 5.7-8.2 N [facility] ID Date Data Source [id number] 02/02/2020 08:09:00 AM EDT [facility] Name Value Range Interpretation Code Description Data Sarah rce(s) Supporting Document(s) IgG [Mass/volume] in Serum or Plasma 1159 mg/dL [phone] [facility] Performed at: RN - [facility] [place] [id number] Director: Constanza Saxena MD, Phone: [phone] ID Date Data Source [id number] 02/01/2020 11:02:00 AM EDT [facility] Name Value Range Interpretation Code Description Data Sarah rce(s) Supporting Document(s) Amylase [Enzymatic activity/volume] in Serum or Plasma 58 U/L 30- 118 N [facility] ID Date Data Source [id number] 02/01/2020 11:02:00 AM EDT [facility] Name Value Range Interpretation Code Description Data Sarah rce(s) Supporting Document(s) Lipase [Enzymatic activity/volume] in Serum or Plasma 147 U/L 73-3 93 N [facility] ID Date Data Source [id number] 02/01/2020 11:02:00 AM EDT [facility] Name Value Range Interpretation Code Description Data Sarah rce(s) Supporting Document(s) Bilirubin.direct [Mass/volume] in Serum or Plasma 0.1 mg/dL 0.0-0.2 N [facility] ID Date Data Source [id number] 02/01/2020 10:10:00 AM EDT [facility] ([facility] [...] [facility] [place]) ID Date Data Source [id number] 02/01/2020 10:10:00 AM EDT [facility] ([facility] [place]) Name Value Range Interpretation Code Description Data Sarah rce(s) Supporting Document(s) IgG [Mass/volume] in Serum or Plasma 1159 mg/dL [phone] [facility] ([facility] [place]) Performed at: [facility] [address] [id number] Apron Operator: Constanza Saxena MD, Phone: [phone] ID Date Data Source [id number] 02/01/2020 10:10:00 AM EDT [facility] ([facility] [...] [facility] ([facility]) R10.13,D83.9 Laboratory test finding (navigational concept) 0.9 mg/dL 0 .5-1.1 Normal (applies to non-numeric results) [facility] ([facility]) R10.13,D83.9 Glomerular filtration rate/1.73 sq M.pre dicted [Volume Rate/Area] in Serum or Plasma Laboratory test result [facility] ([facility]) R10.13,D83.9 Glucose [Mass/volume] in Serum or Plasma 93 mg/dL 74-106 Normal (applies to non- numeric results) [facility] ([facility] ) R10.13,D83.9 Alanine aminotransferase [Enzymatic acti vity/volume] in Serum or Plasma by With P-5'-P 20 U/L 10-49 Normal (applies to non-numeric results) [facility] ([facility]) R10.13,D83.9 Aspartate aminotransferase [Enzymatic ac tivity/volume] in Serum or Plasma by With P-5'-P 13 U/L 0-33 Normal (applies to non-numeric results) [facility] ([facility]) R10.13,D83.9 Alkaline phosphatase [Enzymatic activity/volume] in Serum or Plasma 119 U/L 45-129 Normal (applies to non-numeric results) [facility] ([facility]) R10.13,D83.9 Calcium [Mass/volume] in Serum or Plasma 8.6 mg/dL 8.5-10. 1 Normal (applies to non-numeric results) [facility] ([facility]) R10.13,D83.9 Bilirubin.total [Mass/volume] in Serum or Plasma 0.2 mg/dL 0.3-1.2 Below low normal [facility] ([facility] ) R10.13,D83.9 Albumin [Mass/volume] in Serum or Plasma by Bromocresol purple (BCP) dye binding method 3.4 g/dL 3.2-4.8 Normal (applies to non-numeric results) [facility] ([facility] [place]) R10.13,D83.9 Protein [Mass/volume] in Serum or Plasma 7.3 g/dL 5.7-8.2 Normal (applies to non-numeric results) [facility] ([facility] [place]) R10.13,D83.9 ID Date Data Source [id number] 02/01/2020 10:10:00 AM EDT [facility] ([facility] [...] of [place]) R10.13,D83.9 ID Date Data Source [id number] 01/31/2020 02:42:00 PM EDT [place] [id number] [phone] NAME SEX PT STATUS ACCOUNT NUMBER ISIDRA YANEZ REG REF [id number] ORDERING PHYSICIAN LOCATION MEDICAL RECORD NO. Jose Carlos Mendoza [id number] ATTENDING PHYSICIAN DATE OF DATE OF EXAM/TIME [...] rce(s) Supporting Document(s) ID Date Data Source [id number] 01/31/2020 09:06:00 AM EDT [facility] [address] [place] [address] [phone] NAME SEX PT STATUS ACCOUNT NUMBER ISIDRA YANEZ REG REF [id number] ORDERING PHYSICIAN LOCATION MEDICAL RECORD NO. Jose Carlos Mendoza [id number] ATTENDING PHYSICIAN DATE OF DATE OF EXAM/TIME [...] rce(s) Supporting Document(s) ID Date Data Source [id number] 01/21/2020 01:09:00 PM EDT [facility] Name Value Range Interpretation Code Description Data Sarah rce(s) Supporting Document(s) Leukocytes [#/volume] in Blood by Automated count 5.7 10*3/uL 4.45-10 .71 [facility] Erythrocytes [#/volume] in Blood by Automated count 3.76 10*6/uL 4.20-5.40 Below low normal [facility] Hemoglobin [Moles/volume] in Blood 12.2 g/dL 10.7-15.4 N [facility] Hematocrit [Volume Fraction] of Blood by Automated count 37.4 % 3 7-47 N [facility] Erythrocyte mean corpuscular volume [Ent itic volume] in Cord blood by Automated count 99.5 fL 80-96 Above high normal [facility] Erythrocyte mean corpuscular hemoglobin [Entitic mass] by Automated count 32.4 pg 27-31 Above high normal [facility] spital Erythrocyte mean corpuscular hemoglobin concentration [Mass/volume] in Cord blood 32.6 g/dL 33-37 Below low normal [facility] Erythrocyte distribution width [Entitic volume] by Automated count 14 % 11-15 N [facility] Platelets [#/volume] in Blood by Automated count 269 10*3/uL 130-472 N [facility] Platelet mean volume [Entitic volume] in Blood 8.9 fL 9.1-13. 1 Below low normal [facility] Neutrophils/100 leukocytes in Blood by Automated count 48.5 % 41- 77 N [facility] Neutrophils [#/volume] in Blood by Automated count 2.7 U 1.7-7.6 N [facility] Lymphocytes/100 leukocytes in Blood by Automated count 40.0 % 14- 46 N [facility] Lymphocytes [#/volume] in Blood by Automated count 2.3 U 0.6-4.6 N [facility] Monocytes/100 leukocytes in Blood by Automated count 7.6 % 4-12 N [facility] Monocytes [#/volume] in Blood by Automated count 0.4 U 0.2-1.2 N [facility] Eosinophils/100 leukocytes in Blood by Automated count 2.3 % 0-7 N [facility] Eosinophils [#/volume] in Blood by Automated count 0.1 U 0.0-0.5 N [facility] Basophils/100 leukocytes in Blood by Automated count 1.1 % 0.4-1 .3 N [facility] Basophils [#/volume] in Blood by Automated count 0.1 U 0.0-0.2 N [facility] NUCLEATED RED BLOOD CELL 0 % [facility] NUCLEATED RED BLOOD CELL# 0 U [facility] Immature granulocytes [Presence] in Blood by Automated count 0-2 N [facility] Immature granulocytes [#/volume] in Blood by Automated count 0.0 U 0-0.1 N [facility] Manual Differential panel - Blood NO [facility] ID Date Data Source [id number] 01/21/2020 01:39:00 PM EDT [facility] Name Value Range Interpretation Code Description Data Sarah rce(s) Supporting Document(s) Hemoglobin A1c % 7.2 % 4.0-6.0 Above high normal [facility] The following ranges may be u sed for interpretation of results: HGBA1C degree of glucose control: Greater than 8%: Action Suggested * Less than 7%: Goal of Diabetic Therapy Less than 6%: NormalFactors such as duration of diabetes, adherence to therapyand the age of the patient should also be considered inassessing the degree of blood glucose control.* High risk of developing halfway complications such asretinopathy, nephropathy, neuropathy, cardiopathy, etc. Some danger of hypoglycemic reaction in Type I diabetics.Some glucose intolerant individuals and "Sub Clinical"diabetics may demonstrate HGBA1C levels in this area. Glucose mean value [Moles/volume] in Blood Estimated f rom glycated hemoglobin 160 mg/dL [facility] An A1C of 7% - the goal of diabetic ther apy - is equivalentto an EAG of 154 mg/dl. ID Date Data Source [id number] 01/21/2020 01:52:00 PM EDT [facility] Name Value Range Interpretation Code Description Data Sarah rce(s) Supporting Document(s) Urea nitrogen [Mass/volume] in Serum or Plasma 12 mg/dL 9-23 N [facility] Sodium [Moles/volume] in Serum or Plasma 142 mmol/L 132-146 [facility] Potassium [Moles/volume] in Serum or Plasma 4.2 mmol/L 3.5-5.5 [facility] Chloride [Moles/volume] in Serum or Plasma 112 mmol/L 99-109 Above high normal [facility] Carbon dioxide, total [Moles/volume] in Serum or Plasma 21 mmol/L 20 -31 [facility] Anion gap in Serum or Plasma 13 mmol/L 8-16 [facility] Glucose [Mass/volume] in Serum or Plasma 99 mg/dL 74-106 [facility] Creatinine 0.8 mg/dL 0.5-1.1 [facility] Glomerular filtration rate/1.73 sq M.pre dicted [Volume Rate/Area] in Serum or Plasma Greater Than 60 ABOVE 60 [facility] Alanine aminotransferase [Enzymatic acti vity/volume] in Serum or Plasma by With P-5'-P 21 U/L 10-[address] [facility] ital Aspartate aminotransferase [Enzymatic ac tivity/volume] in Serum or Plasma by With P-5'-P 15 U/L 0-33 N [facility] pital Alkaline phosphatase [Enzymatic activity/volume] in Serum or Plasma 122 U/L 45-129 N [facility] Calcium [Mass/volume] in Serum or Plasma 8.8 mg/dL 8.5-10.1 N [facility] Bilirubin.total [Mass/volume] in Serum or Plasma 0.2 mg/dL 0.3-1.2 Below low normal [facility] Albumin [Mass/volume] in Serum or Plasma by Bromocresol purple (BCP) dye binding method 3.4 g/dL 3.2-4.8 [facility] ital Protein [Mass/volume] in Serum or Plasma 7.2 g/dL 5.7-8.2 [facility] ID Date Data Source [id number] 01/22/2020 08:09:00 AM EDT [facility] Name Value Range Interpretation Code Description Data Sarah rce(s) Supporting Document(s) 25-Hydroxyvitamin D2+25-Hydroxyvitamin D3 [Mass/volume ] in Serum or Plasma 51.6 ng/mL 30.0-100.0 [facility] Vitamin D deficiency has been defined by the [place] ofMedicine and an Endocrine Society practice guideline as alevel of serum 25-OH vitamin D less than 20 ng/mL (1,2).The Endocrine Society went on to further define vitamin Dinsufficiency as a level between 21 and 29 ng/mL (2).1. IOM ([place] of Medicine). 2010. Dietary reference intakes for calcium and D. [place]: The National Academies Press.2. Deena SANCHEZ, Theodoer CORTEZ, Valerie SLAUGHTER, et al. Evaluation, treatment, and prevention of vitamin D deficiency: an Endocrine Society clinical practice guideline. JCEM. 2010; 96(6):1911- 30.Performed at: RN - [facility] [address], [place], [place] [id number] Director: Constanza Saxena MD, Phone: [phone] ID Date Data Source [id number] 01/21/2020 01:52:00 PM EDT [facility] Name Value Range Interpretation Code Description Data Sarah rce(s) Supporting Document(s) Triglycerides 107 mg/dL 0-150 N [facility] Cholesterol 175 mg/dL 120-200 N [facility] HDL Cholesterol 82 mg/dL [facility] HDL Less than 40 mg/dL: Major risk for CHDHDL Greater than 59 mg/dL: Low risk for CHD LDL Cholesterol, Calc 72 mg/dL 0-100 N [facility] ID Date Data Source [id number] 01/16/2020 02:15:00 PM EDT [facility] Name Value Range Interpretation Code Description Data Sarah rce(s) Supporting Document(s) Follow Up [facility] [id number]M0VRpbDm7BFQizjjFvMKQeXu7+VGSdWF3fla8dJEJc gMy [file] vp securities/gr1IM55V3z/kuc5b+b+RwjaSI9LIcBiEWzmbPNxTyqI9WdEpswJHZ5a1OXY4E9qOEnxWtiRzJEsZJ [file] 71x/x/+2GhXYQT3OcJ+69CtLk7In+xFDCryquqVfkQEPAOR/A6tMs7vVu8+EoZR8BBC7NFWcTYlr+Jose Ramon [file] PmlsBHpX/1tKxAcNt0oCPnvii4qKH31KGKhn8Bo+Luis Carlos [file] shSUT/ECONOMIC ANALYST+zDW+hsc4YvystuERnjsFP3iipM1g837njbfY3Enxdjtfr1bnZ9Ht/Tr6EpCyR6o5QWTIf+S [file] qSuu/yYtwV5F/b4f/y/sv7L++/production material coordinator/y/sv7L+//Lt7/G/7fHFKqIXABHFeqLe7qX94l7LXWM0qr3ku+yp [file] 8/SGfuiLjj3ArrT8x3Oc2reQN+QLGxGQ57Quw3z6ZTy0fMAVlvTstnJGNCkNnal6/ECONOMIC ANALYST/X8P1jqRbQlTH [file] ubxMEK2izUlEDaKnk48X6Do6WVW1mtg2SUo0ZtC1hqoml+production material coordinator/wWByxHiFu/iUh9KL7W8xZJF9D1P0ENF [file] nUWfNGJWD3qvAmL4asZYG7t07+9g9KsrROeUBCBLWSe9QO/oeYvnEtr4z0gjuPj30jxRWceG1RySJ/DECKHAND ENGINEER [file] commercial print salesman+YR+Byxb5Jzv2exGBg8dA+PAXE8zrIG0U/0sIVk [file] LUIS CARLOS+JvklXCD6tX9LgclXMTENj/5jSzygB7/WqrI1RsCOz5mQ58cc2vzKKhosBoNsuujNQ0xoQWKfNbaU4 [file] cQphqh1CkuJ5ZP7RRmmuy2OiRQE0E6he17sl6602kx54nyH0ev8n7Kg16JaB5cEifveDhkgsUQ3+s+del toro [file] 2tqOvZSFKb1lhZg+yny3MzRBwM8/1v2Fuvixjgo5ulamdA3/management services technician+j0abeRZjiR+Nyv0BBac0jaf/OBP6 [file] jImUkGsrH7mn/Hu7CUm/Ot4jQHuxBw3fQcQLiSQ8hW62dh+bjwGHQvcOS/Chris+7spc4UW795Qk27lnOm gw9bGnBPNcC/b3ysbKqqjMVpgX9ufU5TghqOJFvMg6 N6b5iHURkAw2oFAeBgs/uR0wcZVINLhHfugnI+DcYVH9ApJfxnlMxbUDD+c83bVI/Kpb1+OXk7uos3oe uGKLgU2ggqDFWDWmq11uvHXPUbePlrmWNMVgsrZ5KZNHdLfh96+jSCXYuTh+mG4rylWLcIxc6SvPtcoC VbtwrFm24K8Uk2X3j3EHSdSbevsS5J1BntuQzEba/+ pg3yP2UfHSRKjqRUE2DoJpZav1hD9f69rtQj7VF87Kjo+b+6lvR/0bXUJ+TnjK4xC9u2U2+GI0o37og4 WW2HSVPRY+pEFD2BGXjYeOWJYwnELyqWbnXD/TXfuECL3vZrkSCAcBuLmHBmOGIGsYAW82ttiFLZ6br8 olIcLTU3tavk3X+Y0S1ujgSgOyc6rIcueWBoXVyjVY eSltoe0mz14DYODOY+apWVDv4gr6soRf68afrPAxtBRI28BP/b2kso6Lu8pYCA+QFBXJgKFRO3bm9OJ/ gy/VJ7wk+PTsRhen2t5HhxXVbuniD0nuyLHi6q7zzr2KYLRDhj6yiM+hyqojlbu5V5W/j1Sz5ocldVhA DKpPTgmOZt8YpnW4nLSpJ02pvnLCuqDNn5eqF9DGA+ VitkQu33L7JmVZ26o+cKbVgUSexF0A4yztFgYOk4fmXv/vvpovUBgxRvux9hWOtNC2gYUePp61xc7IF2 p5ZxFZ5nO8t+5Nom0ziRT45WJ+nab4qq1G7j2V8M6cTjzkGbGNbvQ/U5G5mPa0Odp02aTTA2x8Rfc+DECKHAND ENGINEER [file] OSmqE0QurCbwa+B+Del Toro++/9MnxzPIsjyn4x9JTTEYwB [file] 1y6euUAv/wsr3P+Miroslava/hFmx0yQTo5xvGp67grPRSDA /production material coordinator+O1RGol4KssmsnBarKVSy0s8o61ttWOvfD4VEIPyp+sduB/lF+B/hrNG/z0AWAV/ZTKCbCb2wzq/i 93vEEswF1rkvhDrv8jsokEE++41Jgu1t1ZZWdFctm4m0ag+/aj2n/Y8RNEtBTXsBRLh9OGZvse0BNe+I y09IR91XHFDP+QZGTilSoyXABeAjo6fr0QSEa4FNfe XOWF/gvCVUdEYDchSGgr9gL5rGnma9v+RLo8iaVpwabPx5+WwZ0dlhuVkPLU0hcvbyslfyDbMq0VycdK m0Rg6b+JKbyxPzOpF9IhuHN1AYjYL0WCp5XNRsykitzbauJ9wvMMyK6yngSL0WEb7ofixE/dkVokW1QX TCD/h6FoNZWlJrkEVm5Qha7K3h0upJBNH02n4HzGLH xipU1V+LXtcbtFKGbDlF9sJEX2KwWU3GqhbwgowTV/6F/Sb3sAYru72CA3++dLaH2yrq4lZadosfW4YG VJrV81DZDDiIP889Gw+gsVl2CJ+3kZpmLp6JQ1W5qv4H6ePiMX1sz9qsHEg+Bt9tF9haN9fTjmqdD/M0 Thor+zZ2QoTxKpRSAS2qE14/O45wB9Wxwb1CQfDdOpt [file] gwun8TFGpeAeP7c0mNgj/7iPJfdZn1ucuRT8+nyXxgLfA68Aip+OZdO/gPr4Mik7DGMke6hFKtKp0+luis carlos [file] Luis Carlos/mwYl6C2sCUmt+Xdsr7E5swHQw889vU+cX+Y8526 [file] q4D/FYl8XNb8lpvLqVEzrfG8luq///n/QcR3iAT [file] 0jjWISFgseNJoGj5ihNHzwvpAwAeVdj+UHseWSR0cJT5+luis carlos/1JKQVgnymSfuB247YA2l9jqG+F5wRbhZ [file] ZCc7cWywpNdlMTlsApdmApSAHtEMluEoOcN1mcid5DI4eirCseB05tpXlE5pa3ksPaxA/mailhouse operator/E0glzj+ [file] xENxXn0PYUI0CnL3ZL7NXPRFB9Y= ID Date Data Source [id number] 12/24/2019 12:49:00 PM EDT [facility] Patient Name: ISIDRA YANEZ : 1960 Sex: F Pt Unit #: [id number] Location:[facility] Provider: Visit Date/Time: 12/24/19 Primary [...] covered and using triple antibiotic. Currently uncovered 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 Required: No Is patient in pain?: Yes [...] Screening Screening Have you traveled outside of [facility] or [facility] in the last 14 days.: No Has patient experienced coronavirus symptoms: No [facility] Medical History Allergic rhinitis Anxiety [...] retinopathy: No Retinopathy details: Reports followed by basic combatant swimmer (Chaya) History of neuropathy: Yes Date of [...] Route Admin Location Lot Number Expiration Date [employer] Manufactu rer 0.5 mL IM Left deltoid [id number] 10/10/21 63619-334-74 [employer] VIS Given Date VIS Provided VIS Publication Date 12/24/19 Single Vaccine 19 Eligibility Eligibility Date Funding Source Not [facility] Eligible 12/24/19 Private Assessment Plan Assessment [...] her MAC, she also follows with her tubing drier pulmonary Dr. Ambriz and gets weekly IVIG [...] rce(s) Supporting Document(s) ID Date Data Source [id number] 11/05/2019 06:27:00 AM EDT [facility] @11/05/19 0627: Aerobic ID Maddison added. R FLXG = CHGAERID.Moderate PMNsSquamous cells - FewSpecimen Quality - Fair @11/05/19 0627: Aerobic ID Maddison added. R FLXG = CHGAERID. Name Value Range Interpretation Code Description Data Sarah rce(s) Supporting Document(s) ID Date Data Source [id number] 12/18/2019 03:07:00 PM EDT [facility] @11/05/19 0627: Aerobic ID Maddison added. R FLXG = CHGAERID.Moderate PMNsSquamous cells - FewSpecimen Quality - Fair @11/05/19 0627: Aerobic ID Maddison added. R FLXG = CHGAERID. Name Value Range Interpretation Code Description Data Sarah rce(s) Supporting Document(s) Specimen preparation [Type] of Unspecified specimen Concentration [facility] ID Date Data Source [id number] 11/05/2019 06:27:00 AM EDT [facility] @11/05/19 0627: Aerobic ID Maddison added. R FLXG = CHGAERID.Moderate PMNsSquamous cells - FewSpecimen Quality - Fair @11/05/19 0627: Aerobic ID Maddison added. R FLXG = CHGAERID. Name Value Range Interpretation Code Description Data Sarah rce(s) Supporting Document(s) Bacteria identified in Sputum by Culture [facility] Quantiy of growth Few [facility] ID Date Data Source [id number] 12/18/2019 03:07:00 PM EDT [facility] @11/05/19 0627: Aerobic ID Madidson added. R FLXG = CHGAERID.Moderate PMNsSquamous cells - FewSpecimen Quality - Fair @11/05/19626: Aerobic ID Maddison added. R FLXG = CHGAERID. Name Value Range Interpretation Code Description Data Sarah rce(s) Supporting Document(s) Microscopic observation [Identifier] in Unspecified sp ecimen by Acid fast stain [facility] Performed at: RN - [facility] [place] [id number] Director: Constanza Saxena MD, Phone: [phone] ID Date Data Source [id number] 11/05/2019 06:27:00 AM EDT [facility] @11/05/19 06: Aerobic ID Maddison added. R FLXG = CHGAERID.Moderate PMNsSquamous cells - FewSpecimen Quality - Fair @11/05/19626: Aerobic ID Maddison added. R FLXG = CHGAERID. Name Value Range Interpretation Code Description Data Sarah rce(s) Supporting Document(s) TRIMETHOPRIM/SULFAMETHOXAZOLE <2/38 Del Toro sceptible. Indicates for microbiology susceptibilities only. [facility] Amoxicillin+Clavulanate [Susceptibility] by Minimum inhibitory concentration (TYLER) >16/8 Resistant. Indicates for microbiology antonio ceptibilities only. [facility] Ampicillin [Susceptibility] by Minimum inhibitory concentration (TYLER) >16 Resistant. Indicates for microbiology susceptibilities only. [facility] Ampicillin+Sulbactam [Susceptibility] by Minimum inhib itory concentration (TYLER) >16/8 Resistant. Indicates for microbiology susceptibi lities only. [facility] Cefotaxime [Susceptibility] by Minimum inhibitory concentration (TYLER) <2 Resistant. Indicates for microbiology susceptibilities only. [facility] Ceftriaxone [Susceptibility] by Minimum inhibitory concentration (TYLER) <1 Resistant. Indicates for microbiology susceptibilities only. [facility] Ciprofloxacin [Susceptibility] by Minimum inhibitory concentrati on (TYLER) <1 Susceptible. Indicates for microbiology susceptibilities only. [facility] Ertapenem [Susceptibility] by Minimum inhibitory concentration ( TYLER) <0.5 Susceptible. Indicates for microbiology susceptibilities only. [facility] Gentamicin [Susceptibility] by Minimum inhibitory concentration (TYLER) <2 Susceptible. Indicates for microbiology susceptibilities only. [facility] Imipenem [Susceptibility] by Minimum inhibitory concentration (M IC) <1 Susceptible. Indicates for microbiology susceptibilities only. [facility] Tetracycline [Susceptibility] by Minimum inhibitory concentratio n (TYLER) <4 Susceptible. Indicates for microbiology susceptibilities only. [facility] Tobramycin [Susceptibility] by Minimum inhibitory concentration (TYLER) <4 Susceptible. Indicates for microbiology susceptibilities only. [facility] Levofloxacin [Susceptibility] by Minimum inhibitory concentratio n (TYLER) <2 Susceptible. Indicates for microbiology susceptibilities only. [facility] Cefepime [Susceptibility] by Minimum inhibitory concentration (M IC) <8 Susceptible. Indicates for microbiology susceptibilities only. [facility] Piperacillin+Tazobactam [Susceptibility] by Minimum inhibitory concentration (TYLER) <16 Resistant. Indicates for microbiology antonio ceptibilities only. [facility] ID Date Data Source [id number] 12/18/2019 03:07:00 PM EDT [facility] @11/05/19 0627: Aerobic ID Maddison added. R FLXG = CHGAERID.Moderate PMNsSquamous cells - FewSpecimen Quality - Fair @11/05/19 0627: Aerobic ID Maddison added. R FLXG = CHGAERID. Name Value Range Interpretation Code Description Data Sarah rce(s) Supporting Document(s) Mycobacterium sp [Presence] in Unspecifi ed specimen by Organism specific culture Negative [facility] No acid fast bacilli isolated after 6 we eks.Performed at: RN - [facility] [place] [id number] Director: Constanza Saxena MD, Phone: [phone] ID Date Data Source [id number] 10/29/2019 08:07:00 AM EDT [facility] Patient Name: ISIDRA YANEZ : 1960 Sex: F Pt Unit #: [id number] Location:[facility] Provider: Visit Date/Time: 10/29/19 Primary [...] twice daily dosing last 10/09, she can cloth picker new RX tomorrow but it goes through fine without issue for twice daily. not sure why she is only take it once a day? she hasn't had ranitidine filled since JUNE according to records at [facility] (still on med lisT) Allergies Sulfa (Sulfonamide [...] and colleagues, with an educational andrew from [employer]. HIV Testing Offer - ages 13-64 HIV [...] note to return to daycare/s chool/sports/work: No [facility] Medical History (Updated 10/29/19 @ [...] Plan (1) Anxiety and depression: SNOMED Code(s): 200616961 Category: Medical Plan - Lindsay Chapman DO: [...] A31.0 - Pulmonary mycobacterial infection SNOMED Code(s): 162027819 Category: Medical Plan - Lindsay Huitron, DO: [...] better she has follow-up appointments with her tubing drier in about 2 weeks and several specialty appointments coming up over the next couple months. (3) Mixed stress and urge urinary incontinence: Status: Chronic Comment: Wears undergarments Code(s): N39.46 - Mixed incontinence SNOMED Code(s): 089532525 Category: Medical Plan - Lindsay Chapman, DO: She wears undergarments and incontinence gets worse with cough she said her undergarments did come from the [employer] (4) Severe persistent asthma dependent on systemic steroids with acute exacerbation: Status: Chronic Comment: Patient changed back to pulmonary group and [place]-Dr. Ambriz and his nurse practitioner-PFTs do not show obstruction-she does not have COPD-she has severe persistent asthma Code(s): J45.51 - Severe persistent asthma with (acute) exacerbation; Z79.52 - senior living (current) use of systemic steroids SNOMED Code(s): 918489099 Category: Medical Plan - Lindsay Chapman DO: [...] diabetes mellitus with unspecified complications SNOMED Code(s): 48553877 Category: Medical Plan - Lindsay Chapman, DO: [...] - Other specified anxiety disorders SNOMED Code(s): 784659436 Category: Medical Plan - Lindsay Chapman DO: Severe anxiety over COVID some better with Xanax and increased dose of Zoloft depression screen still 12 declines referral to mental health (7) GERD (gastroesophageal reflux disease): Status: Chronic Comment: Was seeing Dr. Anderson, but changed to Dr. Guerra in 2018 Code(s): K21.9 - Gastro- esophageal reflux disease without esophagitis SNOMED Code(s): 953762886 Category: Medical Plan - Lindsay Chapman, DO: [...] other enabling machines and devices SNOMED Code(s): 68340250 Category: Medical Plan - Lindsay Chapman DO: [...] rce(s) Supporting Document(s) ID Date Data Source [id number] 10/15/2019 10:41:00 AM EDT [facility] Patient Name: ISIDRA YANEZ : 1960 Sex: F Pt Unit #: [id number] Location:[facility] Provider: Visit Date/Time: 10/15/19 Primary Insurance: [facility] Secondary Insurance: Self Pay Intake Intake Visit Reasons: Anxiety Nurse Note: Patient with increased anxiety, depression. Medications reviewed. No complaints of acute pain. 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 Required: No Is patient in pain?: No [...] 500 mg PO QMWF blood sugar diagnostic (Hotlist) Use strips to test sugar before meals [...] QID MDD 4 Lactobacillus acidophilus PO lancets ([employer] Delica Lancets) to be used AC and [...] and colleagues, with an educational andrew from [employer]. HIV Testing Offer - ages 13-64 HIV testing Offer: No Requirement for HIV testing offer been met?: Not in age range Hep C Testing Offered: No Hep C Requirement met: Patient reports past refusal SBIRT Annual Questionnaire Are you currently in recovery for alcohol or substance use?: No [facility] Medical History (Updated 10/15/19 @ [...] in September and left a message with human resources receptionist Tristian Thomas. I did not get the [...] frantic and extremely anxious. She called the simplex operator several times. Even after I offered over [...] not had a refill of Xanax in [facility] a year. She does have myasthenia [...] she got a call this morning from [employer] that her vazquez 19 virus swab was [...] Plan (1) Anxiety and depression: SNOMED Code(s): 083745590 Category: Medical Plan - Lindsay Houston-Tomy, DO: Patient has phoned the office and left messages a couple times recently in the past week and has been crying. She last had called both her simplex operator and her infectious disease doctor leaving message [...] infectious disease office several times called her simplex operator several times.Hans did return her call did put her on additional antibiotic and prednisone. [place] that if she did get COVID she [...] talk to her brother who is a watchguard other than talking to him on the phone she is not interested in doing any formal counseling referral she will increase the Zoloft to 100 will plan on doing a 2 to 4-week follow-up visit to make sure things are improving. (2) Mixed hyperlipidemia: Status: Chronic Code(s): E78.2 - Mixed hyperlipidemia SNOMED Code(s): 853264943 Category: Medical Plan - Lindsay Chapman, DO: [...] Code(s): N39.46 - Mixed incontinence SNOMED Code(s): 392188925 Category: Medical Plan - Lindsay Chapman, DO: I will complete her paperwork as soon as it is forwarded to me she does not care to try medicine she has tried some oxybutynin and Vesicare in the past made her mouth dry made vision blurry and did not really help she prefers to just use the undergarments Orders Follow Up: Hopefully diabetes care pylp-ph-qvfz within the next 3 months with lab work 40 minutes 2 to 4 weeks phone visit follow-up anxiety and depression (After) Afternoon phone visit please Electronically Signed By: <Electronically signed by Lindsay Chapman DO> Date/Time Signed: 10/15/19 1321 Name Value Range Interpretation Code Description Data Sarah rce(s) Supporting Document(s) ID Date Data Source [id number] 10/12/2019 01:57:00 PM EDT [facility] Patient Name: ISIDRA YANEZ : 1960 Sex: F Pt Unit #: [id number] Location:[facility] Provider: Visit Date/Time: 10/12/19 Primary Insurance: [facility] [...] Screening Screening Have you traveled outside of [facility] in the last 14 days.: No Has patient experienced coronavirus symptoms: Yes Coronavirus symptoms experienced: fever (None.) and lower respiratory illness (Productive cough.) [facility] Social History Does the Patient [...] rce(s) Supporting Document(s) ID Date Data Source [id number] 10/15/2019 03:06:00 AM EDT [facility] Name Value Range Interpretation Code Description Data Sarah rce(s) Supporting Document(s) COVID-19 BONNIE (SARS-CoV-2) Not Detected Not Detected [facility] Testing was performed using the bárbara(R) SARS-CoV-2 test.This test was developed and its performance characteristicsdetermined by [employer]. This test has not beenFDA cleared or [...] the authorization is terminated orrevoked sooner.Performed at: [facility] [id number] Director: Constanza Saxena MD, Phone: [phone] ID Date Data Source [id number] 10/12/2019 12:50:00 PM EDT [facility] Name Value Range Interpretation Code Description Data Sarah rce(s) Supporting Document(s) SARS CORONAVIRUS 2 RNA [facility] This lab was ordered by [facility] and reported by [facility]. ID Date Data Source [id number] 09/17/2019 09:40:00 AM EDT [facility] Name Value Range Interpretation Code Description Data Sarah rce(s) Supporting Document(s) Glucose, Fasting 87 mg/dL 70-100 Normal (applies to non-numeric results) [facility] ([facility], ) Blood Urea Nitrogen 13 mg/dL 7-18 Normal (applies to non-nume eleazar results) [facility] ([facility], ) Creatinine For GFR 0.87 mg/dL 0.55-1.30 Normal (applies to non -numeric results) [facility] ([facility], ) Potassium Serum 4.3 meq/L 3.5-5.1 Normal (applies to non-numeric results) [facility] ([facility], ) Sodium Level 141 meq/L 136-145 Normal (applies to non-numeric res ults) [facility] ([facility], ) Glomerular Filtration Rate Laboratory test result Normal (applies to non- numeric results) [facility], ) <content>Units are mL/min/1.73 m2</content>
<content></content>
<content>Chronic Kidney Disease Staging per NKF:</content>
<content></content>
<content>Stage I & II GFR >=60 Normal to Mildly Decreased</content>
<content>Stage III GFR 30- 59 Moderately Decreased</content>
<content>Stage IV GFR 15-29 Severely Decreased</content>
<content>Stage V GFR <15 Very Little GFR Left</content>
<content>ESRD GFR <15 on RESIDENTIAL FRAMING CARPENTER</content>
<content></content> Chloride Level 112 meq/L 98-107 Above high normal [facility] ([facility], ) Carbon Dioxide Level 21 meq/L 21-32 Normal (applies to non-num augustine results) [facility] ([facility], ) Anion Gap 8 meq/L 8-16 Normal (applies to non-numeric resul ts) [facility] ([facility]) Calcium Level 9.4 mg/dL 8.8-10.2 Normal (applies to non-numeric re sults) [facility] ([facility], ) Alt/SGPT 19 U/L 12-78 Normal (applies to non-numeric resul ts) [facility] Ast/Sgot 16 U/L 7-37 Normal (applies to non-numeric resul ts) [facility], ) Total Protein 7.2 GM/DL 6.4-8.2 Normal (applies to non-numeric re sults) [facility]) Bilirubin,Total 0.3 mg/dL 0.2-1.0 Normal (applies to non-numeric results) [facility]) Albumin 3.7 GM/DL 3.2-5.2 Normal (applies to non-numeric resul ts) [facility]) Alkaline Phosphatase 96 U/L 45-117 Normal (applies to non-num augustine results) [facility]) Albumin/Globulin Ratio 1.06 1.00-1.93 Normal (applies to non-numeric results) [facility]) ID Date Data Source [id number] 09/17/2019 09:40:00 AM EDT [facility]) Name Value Range Interpretation Code Description Data Sarah rce(s) Supporting Document(s) White Blood Count 6.6 10 4.0-10.0 Normal (applies to non-numeri c results) [facility]) Hemoglobin 12.6 g/dL 12.0-15.5 Normal (applies to non-numeric resul ts) [facility]) Red Blood Count 4.05 10 4.00-5.40 Normal (applies to non-numeric results) [facility]) Hematocrit 39.4 % 36.0-47.0 Normal (applies to non-numeric resul ts) [facility]) Mean Corpuscular HGB Conc 32.0 g/dL 32.0-36.5 Normal (applies to non-numeric results) [facility]) Mean Corpuscular Hemoglobin 31.1 pg 27.0-33.0 Norm al (applies to non-numeric results) [facility]) Mean Corpuscular Volume 97.3 fl 80.0-96.0 Above high normal [facility]) Platelet Count, Automated 325 10 150-450 Normal (applies to non-numeric results) [facility]) Neutrophils % 53.6 % 36.0-66.0 Normal (applies to non-numeric re sults) [facility] ([facility]) Lymph % 33.7 % 24.0-44.0 Normal (applies to non-numeric resul ts) [facility] ([facility]) Red Cell Distribution Width 13.2 % 11.5-14.5 Norm al (applies to non-numeric results) [facility] ([facility]) Eos % 3.5 % 0.0-3.0 Above high normal [facility] ([facility]) Ford % 8.0 % 0.0-5.0 Above high normal [facility] Baso % 0.9 % 0.0-1.0 Normal (applies to non-numeric resul ts) [facility] ([facility]) Immature Granulocyte % 0.3 % 0-3.0 Normal (applies to non-n umeric results) [facility] ([facility]) Nucleated Red Blood Cell % 0.0 % 0-0 Normal (applies to n on-numeric results) [facility] ([facility]) Neutrophils # 3.5 10 1.5-8.5 Normal (applies to non-numeric re sults) [facility]) Lymph # 2.2 10 1.5-5.0 Normal (applies to non-numeric resul ts) [facility] ([facility]) Ford # 0.5 10 0.0-0.8 Normal (applies to non-numeric resul ts) [facility] ([facility]) Eos # 0.2 10 0.0-0.5 Normal (applies to non-numeric resul ts) [facility] ([facility]) Baso # 0.1 10 0.0-0.2 Normal (applies to non-numeric resul ts) [facility] ([facility]) ID Date Data Source Comprehensive Metabolic Profile (CMP) 09/17/2019 12:00:00 AM EDT [facility] ([facility]) Name Value Range Interpretation Code Description Data Sarah rce(s) Supporting Document(s) 87 70-100 GLUCOSE, FASTING eCW1 ([facility]) 13 7-18 BLOOD UREA NITROGEN eCW1 ([facility]) > 60.0 >45 GLOMERULAR FILTRATION RATE eCW 1 ([facility]) 0.87 0.55-1.30 CREATININE FOR GFR eCW1 ([facility]) 141 136-145 SODIUM LEVEL eCW1 ([facility]) 4.3 3.5-5.1 POTASSIUM SERUM eCW1 ([facility]) 9.4 8.8-10.2 CALCIUM LEVEL eCW1 ([facility]) 112 98-107 CHLORIDE LEVEL eCW1 ([facility]) 16 7-37 AST/SGOT eCW1 ([facility]) 21 21-32 CARBON DIOXIDE LEVEL eCW1 ([facility]) 0.3 0.2-1.0 BILIRUBIN,TOTAL eCW1 ([facility]) 19 12-78 ALT/SGPT eCW1 ([facility]) 7.2 6.4-8.2 TOTAL PROTEIN eCW1 ([facility]) 96 45-117 ALKALINE PHOSPHATASE eCW1 ([facility]) 1.06 1.00-1.93 ALBUMIN/GLOBULIN RATIO eCW1 ([facility]) 3.7 3.2-5.2 ALBUMIN eCW1 ([facility]) ID Date Data Source CBC with Differential 09/17/2019 12:00:00 AM EDT eCW1 ([facility]) Name Value Range Interpretation Code Description Data Sarah rce(s) Supporting Document(s) 6.6 4.0-10.0 WHITE BLOOD COUNT eCW1 ([facility]) 4.05 4.00-5.40 RED BLOOD COUNT eCW1 ([facility]) 39.4 36.0-47.0 HEMATOCRIT eCW1 (Pending sale to [facility]) 12.6 12.0-15.5 HEMOGLOBIN eCW1 (Pending sale to [facility]) 32.0 32.0-36.5 MEAN CORPUSCULAR HGB CONC eCW1 ([facility]) 97.3 80.0-96.0 MEAN CORPUSCULAR VOLUME e CW1 (Formerly [facility]) 13.2 11.5-14.5 RED CELL DISTRIBUTION WID TH eCW1 ([facility]ly [facility]) 31.1 27.0-33.0 MEAN CORPUSCULAR HEMOGLOB IN eCW1 ([facility]ly [facility]) 53.6 36.0-66.0 NEUTROPHILS % eCW1 ([facility]) 33.7 24.0-44.0 LYMPH % eCW1 ([facility]) 325 150-450 PLATELET COUNT, AUTOMATED eCW1 ([facility]) 0.9 0.0-1.0 BASO % eCW1 ([facility]) 8.0 0.0-5.0 MONO % eCW1 ([facility]) 3.5 0.0-3.0 EOS % eCW1 ([facility]) 3.5 1.5-8.5 NEUTROPHILS # eCW1 ([facility]) 2.2 1.5-5.0 LYMPH # eCW1 ([facility]) 0.1 0.0-0.2 BASO # eCW1 ([facility]) 0.2 0.0-0.5 EOS # eCW1 ([facility]) 0.5 0.0-0.8 MONO # eCW1 ([facility]) ID Date Data Source [id number] 06/30/2019 08:07:00 AM [facility] Name Value Range Interpretation Code Description Data Sarah rce(s) Supporting Document(s) IgG [Mass/volume] in Serum or Plasma 1045 mg/dL 700-1600 [facility] Performed at: RN - LabCojuan [id number] [id number] Director: Constanza Saxena MD, Phone: [phone] ID Date Data Source [id number] 06/29/2019 03:09:00 PM [facility] Name Value Range Interpretation Code Description Data Sarah rce(s) Supporting Document(s) Leukocytes [#/volume] in Blood by Automated count 8.1 10*3/uL 4.45-10 .71 N [facility] Erythrocytes [#/volume] in Blood by Automated count 3.92 10*6/uL 4.20-5.40 Below low normal [facility] Hemoglobin [Moles/volume] in Blood 12.2 g/dL 10.7-15.4 N [facility] Hematocrit [Volume Fraction] of Blood by Automated count 37.6 % 3 7-47 N [facility] Erythrocyte mean corpuscular volume [Ent itic volume] in Cord blood by Automated count 95.9 fL 80-[address] [facility] ital Erythrocyte mean corpuscular hemoglobin [Entitic mass] by Automated count 31.1 pg 27-31 Above high normal [facility] spital Erythrocyte mean corpuscular hemoglobin concentration [Mass/volume] in Cord blood 32.4 g/dL 33-37 Below low normal [facility] Erythrocyte distribution width [Entitic volume] by Automated count 14 % 11-15 N [facility] Platelets [#/volume] in Blood by Automated count 313 10*3/uL 130-472 N [facility] Platelet mean volume [Entitic volume] in Blood 9.2 fL 9.1-13.1 N [facility] Neutrophils/100 leukocytes in Blood by Automated count 58.0 % 41- 77 N [facility] Neutrophils [#/volume] in Blood by Automated count 4.7 U 1.7-7.6 N [facility] Lymphocytes/100 leukocytes in Blood by Automated count 30.5 % 14- 46 N [facility] Lymphocytes [#/volume] in Blood by Automated count 2.5 U 0.6-4.6 N [facility] Monocytes/100 leukocytes in Blood by Automated count 8.4 % 4-12 N [facility] Monocytes [#/volume] in Blood by Automated count 0.7 U 0.2-1.2 N [facility] Eosinophils/100 leukocytes in Blood by Automated count 2.2 % 0-7 N [facility] Eosinophils [#/volume] in Blood by Automated count 0.2 U 0.0-0.5 N [facility] Basophils/100 leukocytes in Blood by Automated count 0.5 % 0.4-1 .3 N [facility] Basophils [#/volume] in Blood by Automated count 0.0 U 0.0-0.2 N [facility] NUCLEATED RED BLOOD CELL 0 % [facility] NUCLEATED RED BLOOD CELL# 0 U [facility] Immature granulocytes [Presence] in Blood by Automated count 0-2 N [facility] Immature granulocytes [#/volume] in Blood by Automated count 0.0 U 0-0.1 N [facility] Manual Differential panel - Blood NO [facility] ID Date Data Source [id number] 06/29/2019 02:55:00 [...] of [place]) D83.9 ID Date Data Source [id number] 06/28/2019 01:14:00 PM [facility] [address] [place] [id number] [phone] NAME SEX PT STATUS ACCOUNT NUMBER ISIDRA YANEZ REG REF [id number] ORDERING PHYSICIAN LOCATION MEDICAL RECORD NO. Lesli RPA-C [facility] [id number] ATTENDING PHYSICIAN DATE OF DATE OF EXAM/TIME [...] Trans Dt/Tm: Trans by: DT Prt Dt/Tm: [id number]: Total DLP = 0.00 mGy-cm Fluoroscopy Time (in secs): Name Value Range Interpretation Code Description Data Sarah rce(s) Supporting Document(s) ID Date Data Source [id number] 06/28/2019 01:12:00 PM [facility] [address] [place], [place] [id number] [phone] NAME SEX PT STATUS ACCOUNT NUMBER ISIDRA YANEZ REG REF [id number] ORDERING PHYSICIAN LOCATION MEDICAL RECORD NO. Lesli RPA-C [facility] [id number] ATTENDING PHYSICIAN DATE OF DATE OF EXAM/TIME [...] Trans Dt/Tm: Trans by: DT Prt Dt/Tm: [id number]: Total DLP = 0.00 mGy-cm Fluoroscopy Time (in secs): Name Value Range Interpretation Code Description Data Sarah rce(s) Supporting Document(s) ID Date Data Source [id number] 06/26/2019 04:03:00 PM [facility] Patient Name: ISIDRA YANEZ : 1960 Sex: F Pt Unit #: [id number] Location:[facility] Provider: Visit Date/Time: 06/26/19 Primary [...] anymore since she isfeeling so much better. 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 Collado in [place] Dr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 Macrotherapy is malfunctioning so unfortunately I was not [...] A31.0 - Pulmonary mycobacterial infection SNOMED Code(s): 990273422 Category: Medical Plan - Lindsay Chapman, DO: [...] up to normal with treatment with the tubing drier it isfelt that it most likely was [...] - Common variable immunodeficiency, unspecified SNOMED Code(s): 98296499 Category: Medical Plan - Lindsay Chapman, DO: From allergy point of view and immunology point of view Dr. denis feels she is doing well he isnot going to see her back for about 6 months he just measured her immunoglobulin levels and feels things are satisfactory (5) Mixed hyperlipidemia: Status: Chronic Code(s): E78.2 - Mixed hyperlipidemia SNOMED Code(s): 680887234 Category: Medical Cristobal - Lindsay Chapman DO: [...] diabetes mellitus with unspecified complications SNOMED Code(s): 19457622 Category: Medical Cristobal - Lindsay Chapman, DO: [...] - Vitamin D deficiency, unspecified SNOMED Code(s): 92834656 Category: Carine Chapman, DO: Continue vitamin D dose and recheck in August (8) Depression with anxiety: Status: Chronic Code(s): F41.8 - Other specified anxiety disorders SNOMED Code(s): 477439788 Category: Medical Plan - Lindsay Chapman, DO: [...] Myasthenia gravis without (acute) exacerbation SNOMED Code(s): 33410079 Category: Medical Cristobal - Lindsay Chapman, DO: [...] rce(s) Supporting Document(s) ID Date Data Source [id number] 06/01/2019 08:19:00 PM [facility] [address] [place] [id number] [phone] NAME SEX PT STATUS ACCOUNT NUMBER ISIDRA YANEZ REG REF [id number] ORDERING PHYSICIAN LOCATION MEDICAL RECORD NO. Lindsay Chapman DO MAMMO [id number] ATTENDING PHYSICIAN DATE OF DATE OF EXAM/TIME [...] Never Smoker completed Never S moker eCW1 ([facility]) Smoking 04/21/2020 12:00:00 AM EDT Never Smoker completed Never S moker eCW1 ([facility]) Smoking 04/21/2020 12:00:00 AM EDT Never Smoker completed Never S moker eCW1 ([facility]) Smoking 04/21/2020 12:00:00 AM EDT Never Smoker completed Never S moker eCW1 ([facility]) Smoking 04/21/2020 12:00:00 AM EDT Never Smoker completed Never S moker eCW1 ([facility]) Smoking 04/21/2020 12:00:00 AM EDT Never Smoker completed Never S moker eCW1 ([facility]) Smoking 04/14/2020 12:25:00 PM EDT Never smoker completed Never s [facility] Smoking 04/14/2020 12:25:00 PM EDT Never smoker completed Never s [facility] Smoking 04/14/2020 12:25:00 PM EDT Never smoker completed Never s [facility] Smoking 04/14/2020 12:25:00 PM EDT Never smoker completed Never s [facility] 04/14/2020 11:25:10 AM EDT Never smoker completed Never s [facility] 04/14/2020 11:25:10 AM EDT Never smoker completed Never s [facility] 04/14/2020 11:25:10 AM EDT Never smoker completed Never s [facility] 04/14/2020 11:25:10 AM EDT Never smoker completed Never s [facility] 04/14/2020 09:40:26 AM EDT Never smoker completed Never s [facility] Smoking 04/14/2020 09:40:00 AM EDT Never smoker completed Never s [facility] Smoking 04/10/2020 12:00:00 AM EDT Patient has never smoked co mpleted Patient has never smoked MEDENT ([facility], ) Smoking 01/10/2020 12:00:00 AM EDT Patient has never smoked co mpleted Patient has never smoked MEDENT ([facility] ) Smoking 01/10/2020 12:00:00 AM EDT Never Smoker completed Never [facility] eCW1 ([facility]) 12/31/2019 09:20:00 AM EDT No completed No [facility] 12/31/2019 09:20:00 AM EDT No completed No [facility] 12/31/2019 09:20:00 AM EDT No completed No [facility] 12/31/2019 09:20:00 AM EDT No completed No [facility] 12/31/2019 09:20:00 AM EDT No completed No [facility] 12/31/2019 09:20:00 AM EDT No completed No [facility] 12/31/2019 09:20:00 AM EDT No completed No [facility] 12/31/2019 09:20:00 AM EDT No completed No [facility] 12/31/2019 09:20:00 AM EDT No completed No [facility] 12/31/2019 09:20:00 AM EDT No completed No [facility] 12/31/2019 09:20:00 AM EDT No completed No [facility] 12/31/2019 09:20:00 AM EDT No completed No [facility] 12/31/2019 09:20:00 AM EDT No completed No [facility] 12/31/2019 09:20:00 AM EDT No completed No [facility] 12/31/2019 09:20:00 AM EDT No completed No [facility] 12/31/2019 09:20:00 AM EDT No completed No [facility] 12/31/2019 09:20:00 AM EDT No completed No [facility] 12/31/2019 09:20:00 AM EDT No completed No [facility] Smoking 12/17/2019 12:00:00 AM EDT Never Smoker completed Never S marylu eCW1 ([facility]) 10/31/2019 04:35:00 PM EDT No completed No [facility] 10/31/2019 04:35:00 PM EDT No completed No [facility] 10/31/2019 04:35:00 PM EDT No completed No [facility] 10/11/2019 05:58:00 PM EDT No completed No [facility] 10/11/2019 05:58:00 PM EDT No completed No [facility] 10/11/2019 05:58:00 PM EDT No completed No [facility] 10/11/2019 05:58:00 PM EDT No completed No [facility] 10/11/2019 05:58:00 PM EDT No completed No [facility] 10/11/2019 05:58:00 PM EDT No completed No [facility] 10/11/2019 05:58:00 PM EDT No completed No [facility] 10/11/2019 05:58:00 PM EDT No completed No [facility] 10/11/2019 05:58:00 PM EDT No completed No [facility] Vital Signs ID Date Data Source UNK Name Value Range Interpretation Code Description Data Source(s) Body surface area Derived from formula 2.14 m2 2.14 m2 [facility] ([facility]) Body weight 115.668 kg 115.668 kg [facility] ([facility]) [place] body weight 115 [lb_av] 115 [lb_av] MEDEN T ([facility]) Body mass index (BMI) [Ratio] 45.2 kg/m2 45.2 k g/m2 [facility] ([facility]) Body weight 255.00 [lb_av] 255.00 [lb_av] MEDEN T ([facility]) Body height 63 [in_i] 63 [in_i] [facility] ([facility], ) 5'3" Diastolic blood pressure 68 mm[Hg] 68 mm[Hg] eCW1 ([facility]) Systolic blood pressure 114 mm[Hg] 114 mm[Hg] e CW1 ([facility]) Body temperature 98.5 [degF] 98.5 [degF] eCW1 ( [facility]) Respiratory rate 16 /min 16 /min eCW1 ([facility]) Heart rate 89 /min 89 /min eCW1 ([facility]) Body mass index (BMI) [Ratio] 45.52 kg/m2 45.52 kg/m2 eCW1 ([facility]) Body height 63 [in_i] 63 [in_i] eCW1 ([facility]) Body weight 257 [lb_av] 257 [lb_av] eCW1 ([facility]) Body surface area Derived from formula 2.15 m2 2.15 m2 [facility] Body weight 115.895 kg 115.895 kg [facility] ([facility], ) [place] body weight 115 [lb_av] 115 [lb_av] MEDEN T ([facility], ) Body mass index (BMI) [Ratio] 45.3 kg/m2 45.3 k g/m2 [facility] ([facility], ) Body weight 255.50 [lb_av] 255.50 [lb_av] MEDEN T ([facility], ) Body height 63 [in_i] 63 [in_i] [facility] ([facility], ) 5'3" Body temperature 96.1 [degF] 96.1 [degF] [facility] ([facility], ) Oxygen saturation in Arterial blood by Pulse oximetry 98 % 98 % [facility] ([facility], ) Heart rate 67 /min 67 /min [facility] ([facility], ) Diastolic blood pressure 68 mm[Hg] 68 mm[Hg] [facility], [facility] Systolic blood pressure 132 mm[Hg] 132 mm[Hg] M EDENT ([facility], ) Body mass index (BMI) [Ratio] 45.0 [...] blood pressure 74 mm[Hg] 74 mm[Hg] eCW1 ([facility]) Systolic blood pressure 132 mm[Hg] 132 mm[Hg] e CW1 ([facility]) Body mass index (BMI) [Ratio] 44.74 kg/m2 44.74 kg/m2 W1 ([facility]) Body height 63 [in_i] 63 [in_i] W1 ([facility]) Body weight 252.6 [lb_av] 252.6 [lb_av] eCW1 ([facility]) Body mass index (BMI) [Ratio] 44.7 [...] MEDENT ([facility]) 5'3" Body weight 252.12 [lb_av] 252.12 [lb_av] MEDEN T ([facility]) Body weight 112.606 kg 112.606 kg [facility] ([facility]) Body mass index (BMI) [Ratio] 44.0 kg/m2 44.0 k g/m2 MEDENT ([facility]) Body weight 248.25 [lb_av] 248.25 [lb_av] MEDEN T ([facility]) Body height 63 [in_i] 63 [in_i] MEDENT ([facility]) 5'3" Body temperature 69.9 [degF] 69.9 [degF] [facility] ([facility]) Oxygen saturation in Arterial blood by Pulse oximetry 98 % 98 % [facility] ([facility]) Heart rate 63 /min 63 /min [facility] Diastolic blood pressure 84 mm[Hg] 84 mm[Hg] [facility] Systolic blood pressure 132 mm[Hg] 132 mm[Hg] M EDENT ([facility]) Diastolic blood pressure 78 mm[Hg] 78 mm[Hg] eCW1 ([facility]) Systolic blood pressure 124 mm[Hg] 124 mm[Hg] e CW1 ([facility]) Body temperature 97.0 [degF] 97.0 [degF] eCW1 ( [facility]) Respiratory rate 18 /min 18 /min eCW1 ([facility]) Heart rate 94 /min 94 /min eCW1 ([facility]) Body mass index (BMI) [Ratio] 44.56 kg/m2 44.56 kg/m2 W1 ([facility]) Body height 63 [in_i] 63 [in_i] eCW1 ([facility]) Body weight 251.6 [lb_av] 251.6 [lb_av] eCW1 ([facility]) Body weight 115.214 kg 115.214 kg MEDENT ([facility]) Body mass index (BMI) [Ratio] 45.0 kg/m2 45.0 k g/m2 MED[facility] ([facility]) Body weight 254.00 [lb_av] 254.00 [lb_av] MEDEN T ([facility]) Body height 63 [in_i] 63 [in_i] [facility] ([facility]) 5'3" Diastolic blood pressure 66 mm[Hg] 66 mm[Hg] eCW1 ([facility]) Systolic blood pressure 112 mm[Hg] 112 mm[Hg] e CW1 ([facility]) Body temperature 98.2 [degF] 98.2 [degF] eCW1 ( [facility]) Respiratory rate 18 /min 18 /min eCW1 ([facility]) Heart rate 90 /min 90 /min eCW1 ([facility]) Body mass index (BMI) [Ratio] 44.63 kg/m2 44.63 kg/m2 W1 ([facility]) Body height 63 [in_us] 63 [in_us] eCW1 ([facility]) Body weight Measured 252 [lb_av] 252 [lb_av] eC W1 ([facility]) Diastolic blood pressure 62 mm[Hg] 62 mm[Hg] eCW1 ([facility]) Systolic blood pressure 112 mm[Hg] 112 mm[Hg] e CW1 ([facility]) Body temperature 97.9 [degF] 97.9 [degF] eCW1 ( [facility]) Respiratory rate 18 /min 18 /min eCW1 ([facility]) Heart rate 85 /min 85 /min eCW1 ([facility]) Body mass index (BMI) [Ratio] 44.28 kg/m2 44.28 kg/m2 W1 ([facility]) Body height 63 [in_us] 63 [in_us] eCW1 ([facility]) Body weight Measured 250 [lb_av] 250 [lb_av] eC W1 ([facility]) Body weight 114.307 kg 114.307 kg [facility] ([facility]) Body mass index (BMI) [Ratio] 44.6 kg/m2 44.6 k g/m2 [facility] ([facility]) Body weight 252.00 [lb_av] 252.00 [lb_av] MEDEN T ([facility]) Body height 63 [in_i] 63 [in_i] [facility] ([facility]) 5'3" Oxygen saturation in Arterial blood by Pulse oximetry 98 % 98 % [facility] ([facility]) Heart rate 80 /min 80 /min [facility] ([facility]) Diastolic blood pressure 72 mm[Hg] 72 mm[Hg] [facility] ([facility]) Systolic blood pressure 110 mm[Hg] 110 mm[Hg] [facility] Diastolic blood pressure 68 mm[Hg] 68 mm[Hg] eCW1 ([facility]) Systolic blood pressure 126 mm[Hg] 126 mm[Hg] e CW1 ([facility]) Body temperature 98.4 [degF] 98.4 [degF] W1 ( [facility]) Respiratory rate 18 /min 18 /min eCW1 ([facility]) Heart rate 91 /min 91 /min eCW1 ([facility]) Body mass index (BMI) [Ratio] 44.46 kg/m2 44.46 kg/m2 eCW1 ([facility]) Body height 63 [in_us] 63 [in_us] eCW1 ([facility]) Body weight Measured 251 [lb_av] 251 [lb_av] eC W1 ([facility]) Diastolic blood pressure 72 mm[Hg] 72 mm[Hg] eCW1 ([facility]) Systolic blood pressure 124 mm[Hg] 124 mm[Hg] e CW1 ([facility]) Body temperature 97.8 [degF] 97.8 [degF] eCW1 ( [facility]) Respiratory rate 20 /min 20 /min eCW1 ([facility]) Heart rate 99 /min 99 /min eCW1 ([facility]) Body mass index (BMI) [Ratio] 45.87 kg/m2 45.87 kg/m2 eCW1 ([facility]) Body height 63 [in_us] 63 [in_us] eCW1 ([facility]) Body weight Measured 259 [lb_av] 259 [lb_av] eC W1 ([facility]) ID Date Data Source [id number] 05/15/2020 04:35:00 PM EST [facility] Name Value Range Interpretation Code Description Data Source(s) WEIGHT RECORDED 256.00 pounds 256.00 pounds [facility] Height 63 Inches 063 Inches [facility] Patient Treatment Plan of Care Planned Activity Planned Date Details Description Data Source (s) Albuterol 0.833 MG/ML / Ipratropium [place] 0.167 MG/M L Inhalant Solution 06/19/2020 12:00:00 AM EST eCW1 ([facility]) cefdinir 300 MG Oral Capsule 06/19/2020 12:00:00 AM EST eCW1 ([facility]) Albuterol 0.833 MG/ML / Ipratropium [place] 0.167 MG/M L Inhalant Solution 06/19/2020 12:00:00 AM EST eCW1 ([facility]) cefdinir 300 MG Oral Capsule 06/19/2020 12:00:00 AM EST eCW1 ([facility]) Albuterol 0.833 MG/ML / Ipratropium [place] 0.167 MG/M L Inhalant Solution 06/19/2020 12:00:00 AM EST eCW1 ([facility]) cefdinir 300 MG Oral Capsule 06/19/2020 12:00:00 AM EST eCW1 ([facility]) montelukast 10 MG Oral Tablet 11/20/2019 12:00:00 AM EDT eCW1 ([facility]) Loratadine 10 MG Oral Tablet 11/20/2019 12:00:00 AM EDT eCW1 ([facility]) Levofloxacin 500 MG Oral Tablet 11/08/2019 12:00:00 AM EDT eCW1 ([facility]) Prednisone 20 MG Oral Tablet 11/08/2019 12:00:00 AM EDT eCW1 ([facility]) Prednisone 10 MG Oral Tablet 10/12/2019 12:00:00 AM EDT eCW1 ([facility]) cefdinir 300 MG Oral Capsule 09/24/2019 12:00:00 AM EDT eCW1 ([facility]) [employer] RespiClick 113/14 113-14 MCG/ACT 09/18/2019 12:00:00 AM EDT eCW1 ([facility]) [employer] 113/14 113-14 MCG/ACT 09/18/2019 12:00:00 AM EDT eCW1 ([facility]) [employer] 113/14 113-14 MCG/ACT 09/18/2019 12:00:00 AM EDT eCW1 ([facility]) cefdinir 300 MG Oral Capsule 07/23/2019 12:00:00 AM EST eCW1 ([facility]) Acidophilus Probiotic Blend - 06/06/2019 12:00:00 AM EST eCW1 ([facility])
[2020-07-31 01:52] LABS: FERRITIN 1153 NG/ML (8-252); NT-PRO BNP 458 PG/ML (<125)
[2020-07-31] MEDS ORDERED: SODIUM CHLORIDE 0.9% INJ 10 ML SYR IV ONE (03:15)
[2020-07-31 04:20] VITALS: BP 159/72
[2020-07-31] MEDS ORDERED: ENOXAPARIN 60MG/0.6ML SYRINGE (J1650 PER 10MG) SC SCH (06:00)
[2020-07-31 07:47] LABS: BASO % 0.5 % (0.0-1.0); HEMATOCRIT 39.5 % (36.0-47.0); HEMOGLOBIN 12.9 g/dl (12.0-15.5); LYMPH # 1.6 10^3/uL (1.5-5.0); LYMPH % 36.1 % (24.0-44.0); MEAN CORPUSCULAR HEMOGLOBIN 31.8 pg (27.0-33.0); MEAN CORPUSCULAR HGB CONC 32.7 g/dl (32.0-36.5); MEAN CORPUSCULAR VOLUME 97.3 fl (80.0-96.0); MONO # 0.4 10^3/uL (0.0-0.8); MONO % 8.6 % (0.0-5.0); NEUTROPHILS # 2.3 10^3/uL (1.5-8.5); NEUTROPHILS % 54.3 % (36.0-66.0); PLATELET COUNT, AUTOMATED 183 10^3/uL (150-450); RED BLOOD COUNT 4.06 10^6/uL (4.00-5.40); WHITE BLOOD COUNT 4.3 10^3/uL (4.0-10.0)
[2020-07-31 08:00] VITALS: O2SAT 95; O2SAT 98
[2020-07-31 08:04] LABS: INR 1.05; PROTHROMBIN TIME 13.9 SECONDS (12.5-14.3)
[2020-07-31 08:09] LABS: D-DIMER QUANT 756.06 ng/ml (<500)
[2020-07-31] MEDS ORDERED: LEVALBUTEROL HFA 45MCG/ACT 15 GM INHALER INH PRN (08:45)
[2020-07-31] MEDS ORDERED: GLUCAGON INJ 1MG VIAL SC PRN (08:45)
[2020-07-31] MEDS ORDERED: ALBUTEROL 90 MCG/ACT 8GM HFA INHALER INH PRN (08:45)
[2020-07-31] MEDS ORDERED: DEXTROSE 50% 50 ML SYRINGE IV PRN (08:45)
[2020-07-31] MEDS ORDERED: GLUCOSE 4GM CHEW TABLET PO PRN (08:45)
[2020-07-31] MEDS ORDERED: ENTER DRUG NAME HERE (PATIENT'S OWN MED) SC SCH (08:45)
[2020-07-31 08:55] LABS: ALBUMIN 3.4 GM/DL (3.2-5.2); ALT/SGPT 29 U/L (12-78); BILIRUBIN,DIRECT < 0.1 MG/DL (0.0-0.2); BILIRUBIN,TOTAL 0.2 MG/DL (0.2-1.0); BLOOD UREA NITROGEN 14 MG/DL (7-18); C REACTIVE PROTEIN QUANTITATIV 3.19 MG/DL (0.00-0.30); CALCIUM LEVEL 8.6 MG/DL (8.8-10.2); CARBON DIOXIDE LEVEL 18 MEQ/L (21-32); CHLORIDE LEVEL 105 MEQ/L (98-107); CPK CREATINE PHOSPHOKINASE 76 U/L (26-192); CREATININE FOR GFR 0.92 MG/DL (0.55-1.30); FERRITIN 1117 NG/ML (8-252); GLOMERULAR FILTRATION RATE > 60.0 (>45); GLUCOSE, FASTING 68 MG/DL (70-100); LDH LACTATE DEHYDROGENASE 179 U/L (84-246); POTASSIUM SERUM 4.3 MEQ/L (3.5-5.1); SODIUM LEVEL 135 MEQ/L (136-145); TOTAL PROTEIN 7.1 GM/DL (6.4-8.2); TROPONIN I < 0.02 NG/ML (< 0.10)
[2020-07-31] MEDS ORDERED: ENALAPRIL MALEATE 5 MG TAB PO SCH (09:00)
[2020-07-31] MEDS ORDERED: FOLIC ACID 1 MG TAB PO SCH (09:00)
[2020-07-31] MEDS ORDERED: SERTRALINE 100 MG TAB PO SCH (09:00)
[2020-07-31] MEDS ORDERED: MULTIVITAMINS/MINERALS THERAP 1 TAB PO SCH (09:00)
[2020-07-31] MEDS ORDERED: FERROUS SULFATE 325MG TAB PO SCH (09:00)
[2020-07-31] MEDS ORDERED: GABAPENTIN 300 MG CAP PO SCH (09:00)
[2020-07-31] MEDS ORDERED: PANTOPRAZOLE 40MG TAB (PROTONIX) PO SCH (09:00)
[2020-07-31] MEDS ORDERED: ASPIRIN 81 MG ENTERIC TAB PO SCH ×2 (09:00)
[2020-07-31] MEDS ORDERED: dexameTHASONE 4 MG/ML 1ML VIAL (J1100 PER 1MG) IV SCH (09:00)
[2020-07-31] MEDS ORDERED: rOPINIRole 1MG TAB PO SCH ×2 (09:00→12:00)
[2020-07-31] MEDS ORDERED: TOPIRAMATE (TopAMAX) 100 MG TAB PO SCH (09:00)
[2020-07-31] MEDS ORDERED: **UNRESOLVED NON-FORMULARY MED ORDER XX SCH (09:00)
[2020-07-31] MEDS ORDERED: PILL CUTTER 1 EACH XX PRN (09:30)
[2020-07-31] MEDS: COMBIVENT RESPIMAT 100-20MCG INHALER 4GM INH SCH ×2 (09:42→09:43)
[2020-07-31 09:44] LABS: VENOUS HCO3 16.8 MEQ/L (23.0-27.0); VENOUS O2 SATURATION 58.8 % (60.0-80.0); VENOUS PARTIAL PRESSURE CO2 29.4 mmHg (38.0-50.0); VENOUS PARTIAL PRESSURE O2 28.4 mmHg (30.0-50.0); VENOUS PH 7.374 UNITS (7.330-7.430); VENOUS TOTAL CO2 17.7 MEQ/L (24.0-28.0)
[2020-07-31 09:56] VITALS: BP 139/66
[2020-07-31] MEDS: PYRIDOSTIGMINE 60 MG TAB PO SCH ×2 (09:57→12:25)
[2020-07-31 11:46] VITALS: BP 124/60
[2020-07-31 12:00] VITALS: O2SAT 94; O2SAT 97
[2020-07-31] MEDS ORDERED: HumaLOG INSULIN (NovoLOG) PER UNIT SC SCH ×2 (12:00→21:00)
[2020-07-31] MEDS ORDERED: DEXA6TAB PO (13:21)
[2020-07-31] MEDS ORDERED: VENTAER INH (13:21)
[2020-07-31] MEDS ORDERED: FLUT1INH2 INH (13:21)
--- NOTE | 2020-07-31 13:25 | DS.PDOC ---
Discharge Summary General Date of Admission Jul 31, 2020 at 01:14 Date of Discharge 07/31/20 Discharge Summary PROCEDURES PERFORMED DURING STAY: [None]. ADMITTING DIAGNOSES: covid-19 Acute COPD exacerbation 2/2 covid-19 DM2 DMITRI Myasthenia Gravis GERD RLS TIA Depression/anxiety Obesity DISCHARGE DIAGNOSES: covid-19 Acute COPD exacerbation 2/2 covid-19 DM2 DMITRI Myasthenia Gravis GERD RLS TIA Depression/anxiety Obesity COMPLICATIONS/CHIEF COMPLAINT: Covid+. HISTORY OF PRESENT ILLNESS: This 60-year-old female presented with complaints of generalized weakness, malaise and difficulty breathing, therefore, her brought her to the hospital for evaluation. She likely caught COVID 19 from her sister. Per discussion with Dr. Abad when they attempted to have the patient ambulate, her O2 sats dropped from 99% to 80%. HOSPITAL COURSE: Patient was admitted overnight, received remdesivir, dexam ethasone. On repeat examination in the morning, patient was saturating above 98% on RA and was comfortable without acute dyspnea. She had no wheezing and had good lung aeration. She receive a home safety evaluation by physical therapy, and was deemed safe for discharge from ambulation standpoint with home health services, including PT. She ambulated and continued to saturated at 98% on RA. Patient was discharged with a course of dexamethasone to complete 7 days of therapy. She was afebrile on DC. DISCHARGE MEDICATIONS: Please see below. ALLERGIES: Please see below. PHYSICAL EXAMINATION ON DISCHARGE: VITAL SIGNS: Please see below. GEN: NAD, comfortable CVS: normal S1, S2, RRR LUNGS: Lungs CTAB, no wheeze, no rales, no crackles ABDOMEN: soft & not tender with palpation MSK/EXTREMITIES: NCAT NEURO: CN 2-12 are grossly intact / speech is not dysarthric PSYCH: alert and oriented to person place and time/ able to understand and follow all commands LABORATORY DATA: Please see below. IMAGING: Chest xray "IMPRESSION: Atelectasis left lung base. Possibility of a small of all vein focus of pneumonitis not absolutely excluded. Follow-up suggested as clinically directed. " CT chest "IMPRESSION: 1. No evidence of acute pulmonary embolus. 2. Findings are consistent with mild changes of COVID-19 pneumonia." PROGNOSIS: good ACTIVITY: As tolerated DIET: consistent carbohydrate DISCHARGE PLAN: DC home with home health. Follow up with neurology for MS. DISPOSITION: home DISCHARGE INSTRUCTIONS: - follow up with PCP 3-5 days - follow up with neurology 1-2 weeks - please take medications as prescribed - if you develop worsening shortness of breath, chest pain, palpitations, f yeni, chills, nausea, vomiting or diarrhea, please call 911 or return to the emergency room. DISCHARGE CONDITION: [Stable]. TIME SPENT ON DISCHARGE: 35 minutes Vital Signs/I&Os Vital Signs Date Time Temp Pulse Resp B/P (MAP) Pulse Ox O2 Delivery O2 Flow Rate FiO2 07/31/20 12:00 94 Room Air 07/31/20 11:46 99.8 82 20 124/60 (81) I&O- Last 24 Hours up to 6 AM 07/31/20 06:00 Intake Total 0 ml Output Total 0 ml Balance 0 ml Laboratory Data Labs 24H Laboratory Tests 2 07/30/20 19:34: Immature Granulocyte % (Auto) 0.5, Neutrophils (%) (Auto) 67.5H, Lymphocytes (%) (Auto) 22.3L, Monocytes (%) (Auto) 9.2H, Eosinophils (%) (Auto) 0.0, Basophils (%) (Auto) 0.5, Neutrophils # (Auto) 2.9, Lymphocytes # (Auto) 1.0L, Monocytes # (Auto) 0.4, Eosinophils # (Auto) 0.0, Basophils # (Auto) 0.0, Nucleated Red Blood Cells % (auto) 0.0, Prothrombin Time 13.1, Prothromb Time International Ratio 0.97, Activated Partial Thromboplast Time 28.5, Fibrinogen 548H, D-Dimer, Quantitative 698.81H, Anion Gap 8, Glomerular Filtration Rate > 60.0, Lactic Acid Level 1.2, Calcium Level 8.6L, Ferritin 1153H, Total Bilirubin 0.5, Aspartate Amino Transf (AST/SGOT) 44H, Alanine Aminotransferase (ALT/SGPT) 33, Alkaline Phosphatase 132H, Lactate Dehydrogenase 315H, Total Creatine Kinase 119, Creatine Kinase MB < 1.0, Creatine Kinase MB Relative Index 0.84, Troponin I < 0.02, C-Reactive Protein, Quantitative 2.39H, QP-Jyj-B-Type Natriuretic Peptide 458H, Total Protein 7.6, Albumin 3.6, Albumin/Globulin Ratio 0.9L 07/31/20 07:30: Immature Granulocyte % (Auto) 0.5, Neutrophils (%) (Auto) 54.3, Lymphocytes (%) (Auto) 36.1, Monocytes (%) (Auto) 8.6H, Eosinophils (%) (Auto) 0.0, Basophils (%) (Auto) 0.5, Neutrophils # (Auto) 2.3, Lymphocytes # (Auto) 1.6, Monocytes # (Auto) 0.4, Eosinophils # (Auto) 0.0, Basophils # (Auto) 0.0, Nucleated Red Blood Cells % (auto) 0.0, Anion Gap 12, Glomerular Filtration Rate > 60.0, Calcium Level 8.6L, Ferritin 1117H, Total Bilirubin 0.2#, Aspartate Amino Transf (AST/SGOT) 27, Alanine Aminotransferase (ALT/SGPT) 29, Alkaline Phosphatase 119H, Lactate Dehydrogenase 179, Total Creatine Kinase 76, Troponin I < 0.02, C- Reactive Protein, Quantitative 3.19H, Total Protein 7.1, Albumin 3.4, Albumin/Globulin Ratio 0.9L, Direct Bilirubin < 0.1 07/31/20 07:31: Prothrombin Time 13.9, Prothromb Time International Ratio 1.05, Activated Partial Thromboplast Time 33.0, Fibrinogen 572H, D-Dimer, Quantitative 756.06H 07/31/20 09:32: Blood Gas Bicarbonate Standard 18.0, Venous Blood pH 7.374, Venous Blood Partial Pressure CO2 29.4L, Venous Blood Partial Pressure O2 28.4L, Venous Blood Total Carbon Dioxide 17.7L, Venous Blood HCO3 16.8L, Venous Blood Oxygen Saturation 58.8L, Venous Blood Base Excess -7.0L 07/31/20 12:00: Bedside Glucose (Misc Panel) 102 CBC/BMP Laboratory Tests 07/30/20 19:34 07/31/20 07:30 FSBS Laboratory Tests Test 07/31/20 12:00 Range/Units Bedside Glucose (Misc Panel) 102 80-115 MG/DL Discharge Medications Scheduled Aspirin (Aspirin EC) 81 Mg Tablet.dr, 81 MG PO DAILY, (Reported) Atorvastatin Calcium (Atorvastatin Calcium) 40 Mg Tablet, 40 MG PO QHS, (Reported) Azithromycin (Azithromycin) 250 Mg Tablet, 250 MG PO DAILY, (Reported) TAKES AT NOON Cyanocobalamin (Vitamin B-12) (Vitamin B-12) 1,000 Mcg Tab, 1,000 MCG PO DAILY, (Reported) Dexamethasone (Dexamethasone) 6 Mg Tablet, 1 TAB PO ONCE Enalapril Maleate (Enalapril Maleate) 2.5 Mg Tab, 2.5 MG PO DAILY, (Reported) Esomeprazole Magnesium (Nexium) 40 Mg Capsule.dr, 40 MG PO BID, (Reported) Ethambutol HCl (Ethambutol HCl) 400 Mg Tablet, 1,600 MG PO QPM, (Reported) Famotidine (Famotidine) 20 Mg Tablet, 20 MG PO QHS, (Reported) Ferrous Sulfate (Ferrous Sulfate) 325 Mg Tablet, 325 MG PO BID, (Reported) Fluticasone Propion/Salmeterol (Fluticasone-Salmeterol 113-14) 1 Each Aer.pow.ba, 1 PUFF INH BID Folic Acid (Folic Acid) 1 Mg Tablet, 1 MG PO DAILY, (Reported) Gabapentin (Gabapentin) 300 Mg Cap, 300 MG PO TID, (Reported) Immun Glob G(IgG)/Pro/Iga 0-50 (Hizentra 10 Gram/50 ml Vial) 10 Gm/50 Ml Inj, 20 GM SC 1XWK, (Reported) SATURDAYS Insulin Glargine,Hum.rec.anlog (Basaglar Kwikpen U-100) 100 Unit/1 Ml Insuln.pen, 65 UNIT SC QHS, (Reported) Insulin Lispro (Admelog Solostar) 100 Unit/1 Ml Insuln.pen, 1 DOSE SC ACHS, (Reported) PER SLIDING SCALE Ipratropium/Albuterol Sulfate (Iprat-Albut 0.5-3(2.5) mg/3 ml) 1 Valerie Valerie, 1 NEB INH QID, (Reported) Loratadine (Loratadine) 10 Mg Tablet, 10 MG PO DAILY, (Reported) Methotrexate Sodium (Methotrexate) 2.5 Mg Tablet, 7.5 MG PO QWEEK, (Reported) SATURDAYS Montelukast Sodium (Singulair) 10 Mg Tab, 10 MG PO QPM, (Reported) DINNER TIME Multivitamins (Thera M Plus Tablet) 1 Tab Tab, 1 TAB PO DAILY, (Reported) Pyridostigmine Abbot (Mestinon) 60 Mg Tab, 60 MG PO QID, (Reported) Rifampin (Rifampin) 300 Mg Capsule, 600 MG PO DAILY, (Reported) TAKES AT NOON Ropinirole HCl (Ropinirole HCl) 2 Mg Tablet, 2 MG PO BID, (Reported) AM/HS Ropinirole HCl (Ropinirole HCl) 1 Mg Tablet, 1 MG PO DAILY, (Reported) TAKES AT 1200 Sertraline HCl (Sertraline HCl) 100 Mg Tablet, 100 MG PO DAILY, (Reported) Topiramate (Topiramate) 50 Mg Tab, 100 MG PO BID, (Reported) Umeclidinium Abbot (Incruse Ellipta) 62.5 Mcg Blst.w.dev, 1 PUFF INH DAILY, (Reported) Scheduled PRN Acetaminophen (Tylenol Extra Strength) 500 Mg Tablet, 1,000 MG PO Q6H PRN for PAIN / FEVER, (Reported) Albuterol Sulfate (Ventolin Hfa) 18 Gm Hfa.aer.ad, 2 PUFF INH Q4H PRN for SHORTNESS OF BREATH Allergies Coded Allergies: metformin (Verified Allergy, Severe, ANAPHALAXIS, 03/26/19) Sulfa (Sulfonamide Antibiotics) (Verified Allergy, Intermediate, HIVES, 03/26/19) fluoxetine (Verified Allergy, Unknown, 03/26/19) niacin (Verified Allergy, Unknown, 03/26/19) metoclopramide (Verified Adverse Reaction, Intermediate, TREMORS, 03/26/19) ELICIA PHLILIPS MD Jul 31, 2020 13:25
[2020-07-31] MEDS ORDERED: ATORVASTATIN 20 MG TAB PO SCH (21:00)
[2020-07-31] MEDS ORDERED: MONTELUKAST 10 MG TAB PO SCH (21:00)
[2020-07-31] MEDS ORDERED: ETHAMBUTOL 400MG TAB PO SCH (21:00)
[2020-07-31] MEDS ORDERED: LEVEMIR (INSULIN DETEMIR) 1 UNITS/0.01ML SC SCH (21:00)
[2020-08-01] MEDS ORDERED: REMDESIVIR 100 MG in NS 250 ML IV SCH (01:15)
[2020-08-01] MEDS ORDERED: SODIUM CHLORIDE 0.9% INJ 10 ML SYR IV SCH (02:15)
[2020-08-02] MEDS ORDERED: METHOTREXATE 2.5 MG TAB (J8610 PER 2.5MG) PO SCH (09:00)
== END 2020-07-31 17:02 | disposition home health service (06) | DRG 137 ==
LOC: M ED 19:11 → M ED INP 07-31 01:14 → CANRESERV 07-31 03:39 → ENRESERVTM 07-31 03:39 → ENRESERVDT 07-31 03:39 → ENRESERV 07-31 03:42 → M 4MAIN 07-31 04:06
PROVIDERS: ADMIT Internal Medicine; ATTEND Internal Medicine
DX: U07.1 COVID-19 (principal); G70.00 Myasthenia gravis without (acute) exacerbation; I48.91 Unspecified atrial fibrillation; J44.9 Chronic obstructive pulmonary disease, unspecified; F32.9 Major depressive disorder, single episode, unspecified; G25.81 Restless legs syndrome; Z79.899 Other long term (current) drug therapy; Z79.82 Long term (current) use of aspirin; Z79.4 Long term (current) use of insulin; Z88.2 Allergy status to sulfonamides; Z88.8 Allergy status to other drugs, medicaments and biological substances; F41.9 Anxiety disorder, unspecified; G47.33 Obstructive sleep apnea (adult) (pediatric); E66.9 Obesity, unspecified; Z86.73 Personal history of transient ischemic attack (TIA), and cerebral infarction without residual deficits; M81.0 Age-related osteoporosis without current pathological fracture; K21.9 Gastro-esophageal reflux disease without esophagitis; E11.9 Type 2 diabetes mellitus without complications

== ENCOUNTER → 2020-10-03 | Outpatient (REF) | payer OTHER ==
[~2020-10-03] MED LIST changes: +ASPI1TAB8 PO; +ATOR40TA75 PO; +DEXA4TA PO; +DEXA6TAB PO; +ETHA1TAB2 PO; +FAMO1TAB11 PO; +FLUT1INH2 INH; +FOLI1TAB11 PO; +METH2.5T48 PO; +NEXI40CA PO; +PEPC40TA12 PO; +RIFA300C3 PO; +ROPI2TAB3 PO; +SERT-138 PO
== END ==
LOC: M SFHCPLAZ 10:41
PROVIDERS: ATTEND Internal Medicine Infectious Disease
DX: A31.0 Pulmonary mycobacterial infection (principal)

== ENCOUNTER → 2020-11-03 | Outpatient (REF) | payer OTHER | LOC: M SFHCPLAZ 13:15 | PROVIDERS: ATTEND Internal Medicine Infectious Disease | DX: A31.0 Pulmonary mycobacterial infection (principal) ==

== ENCOUNTER → 2020-12-01 | Outpatient (REF) | payer OTHER ==
[2020-12-01 11:03] LABS: BASO # 0.1 10^3/uL (0.0-0.2); BASO % 0.8 % (0.0-1.0); EOS # 0.3 10^3/uL (0.0-0.5); EOS % 3.3 % (0.0-3.0); HEMATOCRIT 40.3 % (36.0-47.0); HEMOGLOBIN 12.6 g/dl (12.0-15.5); LYMPH # 2.4 10^3/uL (1.5-5.0); LYMPH % 26.6 % (24.0-44.0); MEAN CORPUSCULAR HEMOGLOBIN 32.3 pg (27.0-33.0); MEAN CORPUSCULAR HGB CONC 31.3 g/dl (32.0-36.5); MEAN CORPUSCULAR VOLUME 103.3 fl (80.0-96.0); MONO # 0.8 10^3/uL (0.0-0.8); MONO % 8.6 % (2.0-8.0); NEUTROPHILS # 5.4 10^3/uL (1.5-8.5); NEUTROPHILS % 59.8 % (36.0-66.0); PLATELET COUNT, AUTOMATED 257 10^3/uL (150-450); WHITE BLOOD COUNT 9.1 10^3/uL (4.0-10.0)
[2020-12-01 11:29] LABS: ERYTHROCYTE SEDIMENTATION RATE 52 mm/hr (0-30)
[2020-12-01 11:32] LABS: ALBUMIN 3.9 GM/DL (3.2-5.2); ALT/SGPT 22 U/L (12-78); BILIRUBIN,TOTAL 0.2 MG/DL (0.2-1.0); BLOOD UREA NITROGEN 23 MG/DL (7-18); C REACTIVE PROTEIN QUANTITATIV 0.87 MG/DL (0.00-0.30); CALCIUM LEVEL 9.3 MG/DL (8.8-10.2); CARBON DIOXIDE LEVEL 23 MEQ/L (21-32); CHLORIDE LEVEL 111 MEQ/L (98-107); CREATININE FOR GFR 0.94 MG/DL (0.55-1.30); GLOMERULAR FILTRATION RATE > 60.0 (>45); GLUCOSE, FASTING 121 MG/DL (70-100); POTASSIUM SERUM 4.3 MEQ/L (3.5-5.1); SODIUM LEVEL 141 MEQ/L (136-145); TOTAL PROTEIN 7.7 GM/DL (6.4-8.2)
[2020-12-02 15:17] LABS: EBV VIRAL CAPSID AG IgG >600.0 U/mL (0.0-17.9); EBV VIRAL CAPSID AG IgM <36.0 U/mL (0.0-35.9)
== END ==
LOC: M SFHCPLAZ 08:41
PROVIDERS: ATTEND Internal Medicine Infectious Disease
DX: R07.0 Pain in throat (principal)

== ENCOUNTER → 2020-12-26 | Outpatient (CLI) | payer OTHER ==
--- NOTE | 2020-12-26 12:52 | REP ---
INDICATION: MAC COMPARISON: Multiple the latest 08/06/2019 TECHNIQUE: Standard helical technique without intravenous contrast FINDINGS: The mediastinum and pulmonary mike are stable. There is no mass or adenopathy. There no pleural or pericardial effusions. There is no change in the imaged upper abdomen or imaged osseous structures. Evaluation of the lung miller shows a minimal stable ground glass nodule in the right middle lobe. The asymmetric density seen previously in the right middle lobe applied to the mediastinum has gotten smaller. The curvilinear density seen previously in the lung bases left greater than right are stable. The minimal curvilinear density in the inferior lingula stable. No new abnormal nodules, masses, or opacities have developed. There is mild cylindrical bronchiectasis which is stable. IMPRESSION: No acute disease. Findings as described above. <Electronically signed by Martin Watson > 12/26/20 [id number]
== END ==
LOC: M RAD 09:45
PROVIDERS: ATTEND Internal Medicine Infectious Disease
DX: A31.0 Pulmonary mycobacterial infection (principal)

== ENCOUNTER → 2021-01-30 | Outpatient (CLI) | payer OTHER ==
[2021-01-30 13:27] LABS: BASO # 0.1 10^3/uL (0.0-0.2); BASO % 0.9 % (0.0-1.0); EOS # 0.3 10^3/uL (0.0-0.5); EOS % 2.8 % (0.0-3.0); HEMATOCRIT 39.9 % (36.0-47.0); HEMOGLOBIN 12.6 g/dl (12.0-15.5); LYMPH # 2.5 10^3/uL (1.5-5.0); LYMPH % 24.4 % (24.0-44.0); MEAN CORPUSCULAR HEMOGLOBIN 32.1 pg (27.0-33.0); MEAN CORPUSCULAR HGB CONC 31.6 g/dl (32.0-36.5); MEAN CORPUSCULAR VOLUME 101.8 fl (80.0-96.0); MONO # 0.7 10^3/uL (0.0-0.8); MONO % 6.8 % (2.0-8.0); NEUTROPHILS # 6.4 10^3/uL (1.5-8.5); NEUTROPHILS % 62.8 % (36.0-66.0); PLATELET COUNT, AUTOMATED 310 10^3/uL (150-450); RED BLOOD COUNT 3.92 10^6/uL (4.00-5.40); WHITE BLOOD COUNT 10.2 10^3/uL (4.0-10.0)
[2021-01-30 13:57] LABS: ALBUMIN 3.6 GM/DL (3.2-5.2); ALT/SGPT 27 U/L (12-78); BILIRUBIN,TOTAL 0.2 MG/DL (0.2-1.0); BLOOD UREA NITROGEN 18 MG/DL (7-18); CALCIUM LEVEL 9.7 MG/DL (8.8-10.2); CARBON DIOXIDE LEVEL 24 MEQ/L (21-32); CHLORIDE LEVEL 112 MEQ/L (98-107); CREATININE FOR GFR 0.91 MG/DL (0.55-1.30); GLOMERULAR FILTRATION RATE > 60.0 (>45); GLUCOSE, FASTING 133 MG/DL (70-100); IMMUNOGLOBULIN G 1200 MG/DL (681-1648); POTASSIUM SERUM 5.6 MEQ/L (3.5-5.1); SODIUM LEVEL 143 MEQ/L (136-145); TOTAL PROTEIN 7.8 GM/DL (6.4-8.2)
== END ==
LOC: M PLALAB 11:19
PROVIDERS: ATTEND Allergy & Immunology Allergy
DX: D83.9 Common variable immunodeficiency, unspecified (principal)

== ENCOUNTER → 2021-02-06 | Outpatient (REF) | payer OTHER | LOC: M SFHCPLAZ 10:52 | PROVIDERS: ATTEND Internal Medicine Infectious Disease | DX: A31.0 Pulmonary mycobacterial infection (principal) ==

== ENCOUNTER → 2021-04-07 | Outpatient (CLI) | payer OTHER ==
--- NOTE | 2021-04-07 12:56 | REP ---
INDICATION: PULMONARY MYCOBACTERIAL INFECTION. COMPARISON: Multiple latest 07/30/2020 a portable exam FINDINGS: The superior mediastinal structures are midline. The cardiac silhouette is unremarkable in size, shape, and position. The diaphragmatic surfaces of the lungs are regular, and the costophrenic angles are clear. The pulmonary miller are clear. The imaged osseous structures are intact. IMPRESSION: There is no acute cardiopulmonary disease or significant change compared to the prior exam. <Electronically signed by Martin Watson > 04/07/21 [id number]
== END ==
LOC: M PLARAD 10:46
PROVIDERS: ATTEND Internal Medicine Infectious Disease
DX: A31.0 Pulmonary mycobacterial infection (principal)

== ENCOUNTER → 2021-04-07 | Outpatient (REF) | payer OTHER | LOC: M SFHCPLAZ 12:58 | PROVIDERS: ATTEND Internal Medicine Infectious Disease | DX: A31.0 Pulmonary mycobacterial infection (principal) ==

== ENCOUNTER → 2021-05-13 | Outpatient (REF) | payer OTHER | LOC: M SFHCPLAZ 12:51 | PROVIDERS: ATTEND Internal Medicine Infectious Disease | DX: A31.0 Pulmonary mycobacterial infection (principal) ==

== ENCOUNTER → 2021-07-25 | Outpatient (CLI) | payer OTHER ==
[~2021-07-25] MED LIST changes: -CITA40TA4 PO; +CITA40TA7 PO; -LEVO500T3 PO; +LEVO500T4 PO
== END ==
LOC: M LABSMTC 10:21
PROVIDERS: ATTEND Internal Medicine Cardiovascular Disease
DX: Z11.52 Encounter for screening for COVID-19 (principal); Z20.822 Contact with and (suspected) exposure to COVID-19

== ENCOUNTER → 2021-10-09 | Outpatient (CLI) | payer OTHER ==
[2021-10-09 15:27] LABS: BASO # 0.1 10^3/uL (0.0-0.2); BASO % 0.4 % (0.0-1.0); EOS # 0.1 10^3/uL (0.0-0.5); EOS % 1.1 % (0.0-3.0); HEMATOCRIT 39.7 % (36.0-47.0); HEMOGLOBIN 12.7 g/dl (12.0-15.5); LYMPH # 3.3 10^3/uL (1.5-5.0); LYMPH % 27.1 % (24.0-44.0); MEAN CORPUSCULAR HEMOGLOBIN 31.1 pg (27.0-33.0); MEAN CORPUSCULAR VOLUME 97.1 fl (80.0-96.0); MONO # 0.9 10^3/uL (0.0-0.8); MONO % 7.7 % (2.0-8.0); NEUTROPHILS # 7.7 10^3/uL (1.5-8.5); PLATELET COUNT, AUTOMATED 267 10^3/uL (150-450); RED BLOOD COUNT 4.09 10^6/uL (4.00-5.40); WHITE BLOOD COUNT 12.2 10^3/uL (4.0-10.0)
[2021-10-09 15:49] LABS: ALBUMIN 3.8 GM/DL (3.2-5.2); BILIRUBIN,TOTAL 0.3 MG/DL (0.2-1.0); CALCIUM LEVEL 9.1 MG/DL (8.8-10.2); CREATININE FOR GFR 1.08 MG/DL (0.55-1.30); GLOMERULAR FILTRATION RATE 54.7 (>45); POTASSIUM SERUM 4.3 MEQ/L (3.5-5.1); TOTAL PROTEIN 7.7 GM/DL (6.4-8.2)
== END ==
LOC: M PLALAB 11:42
PROVIDERS: ATTEND Allergy & Immunology Allergy
DX: D83.9 Common variable immunodeficiency, unspecified (principal)

== ENCOUNTER → 2021-10-23 | Outpatient (REF) | payer OTHER ==
[~2021-10-23] MED LIST changes: -RIFA300C3 PO; +RIFA300C8 PO
[2021-10-23 17:51] LABS: APPEARANCE, URINE CLEAR (CLEAR); BACTERIA, URINE AUTO NEGATIVE (NEGATIVE); BILIRUBIN, URINE AUTO NEGATIVE (NEGATIVE); BLOOD, URINE BLOOD NEGATIVE (NEGATIVE); COLOR, URINE YELLOW (YELLOW); GLUCOSE, URINE (UA) AUTO NEGATIVE (NEGATIVE); KETONE, URINE AUTO NEGATIVE (NEGATIVE); LEUKOCYTE ESTERASE, URINE AUTO NEGATIVE (NEGATIVE); NITRITE, URINE AUTO NEGATIVE (NEGATIVE); PROTEIN, URINE AUTO NEGATIVE (NEGATIVE); RBC, URINE AUTO 0 /HPF (0-3); SPECIFIC GRAVITY URINE AUTO 1.009 (1.002-1.035); SQUAMOUS EPITHELIAL CELL UR AU 0 /HPF (0-6); UROBILINOGEN, URINE AUTO 0.2 mg/dL (0.0-2.0); WBC, URINE AUTO 1 /HPF (0-3)
== END ==
LOC: M SMT 16:52
PROVIDERS: ATTEND Nurse Practitioner Women's Health
DX: R35.0 Frequency of micturition (principal)

== ENCOUNTER → 2021-12-18 | Outpatient (CLI) | payer OTHER ==
[~2021-12-18] MED LIST changes: +GASTROGRAFIN SOLUTION 30ML (Q9963) As Ordered ONE
== END ==
LOC: M RAD 12:34
PROVIDERS: ATTEND Student in an Organized Health Care Education/Training Program
DX: R10.13 Epigastric pain (principal)
CPT/HCPCS: 74160; Q9963

== ENCOUNTER → 2022-01-29 | Outpatient (REF) | payer OTHER ==
[~2022-01-29] MED LIST changes: -ASMA110A INH; -GASTROGRAFIN SOLUTION 30ML (Q9963) As Ordered ONE; +MOME110A INH
[2022-01-29 18:44] LABS: AMORPHOUS SEDIMENT SMALL (NEGATIVE); APPEARANCE, URINE TURBID (CLEAR); BACTERIA, URINE AUTO NEGATIVE (NEGATIVE); BILIRUBIN, URINE AUTO NEGATIVE (NEGATIVE); BLOOD, URINE BLOOD NEGATIVE (NEGATIVE); COLOR, URINE AMBER (YELLOW); GLUCOSE, URINE (UA) AUTO NEGATIVE (NEGATIVE); KETONE, URINE AUTO NEGATIVE (NEGATIVE); LEUKOCYTE ESTERASE, URINE AUTO 3+ (NEGATIVE); MUCUS, URINE SMALL (NEGATIVE); NITRITE, URINE AUTO NEGATIVE (NEGATIVE); PROTEIN, URINE AUTO NEGATIVE (NEGATIVE); RBC, URINE AUTO 1 /HPF (0-3); SQUAMOUS EPITHELIAL CELL UR AU 0 /HPF (0-6); UROBILINOGEN, URINE AUTO 0.2 mg/dL (0.0-2.0); WBC, URINE AUTO 37 /HPF (0-3)
== END ==
LOC: M SMT 16:51
PROVIDERS: ATTEND Nurse Practitioner Women's Health
DX: R35.0 Frequency of micturition (principal)

== ENCOUNTER → 2022-03-24 | Outpatient (CLI) | payer OTHER ==
[~2022-03-24] MED LIST changes: -ASMA1AER2 INH; +LEVO1TAB39 PO; -LEVO500T4 PO; +MOME220A4 INH
== END ==
LOC: M PLALAB 13:02
PROVIDERS: ATTEND Psychiatry & Neurology Neurology
DX: G70.00 Myasthenia gravis without (acute) exacerbation (principal)

== ENCOUNTER → 2022-07-19 | Outpatient (CLI) | payer OTHER ==
[2022-07-19 15:29] LABS: ALBUMIN 3.8 G/DL (3.2-5.2); BILIRUBIN,TOTAL 0.4 MG/DL (0.3-1.2); C REACTIVE PROTEIN QUANTITATIV 1.1 MG/DL (<1.0); CALCIUM LEVEL 9.6 MG/DL (8.3-10.6); CREATININE FOR GFR 1.06 MG/DL (0.55-1.30); GLOMERULAR FILTRATION RATE 55.7 (>45); POTASSIUM SERUM 4.8 MMOL/L (3.5-5.1); TOTAL PROTEIN 7.4 G/DL (5.7-8.2)
[2022-07-19 15:31] LABS: FREE T4 0.97 NG/DL (0.89-1.76); THYROID STIMULATING HORMONE 2.08 uIU/ML (0.55-4.78)
[2022-07-19 15:39] LABS: BASO # 0.1 10^3/uL (0.0-0.2); BASO % 0.9 % (0.0-1.0); EOS # 0.4 10^3/uL (0.0-0.5); EOS % 3.7 % (0.0-3.0); HEMOGLOBIN 12.8 g/dl (12.0-15.5); LYMPH % 29.5 % (24.0-44.0); MEAN CORPUSCULAR HEMOGLOBIN 32.8 pg (27.0-33.0); MEAN CORPUSCULAR VOLUME 102.6 fl (80.0-96.0); MONO # 0.8 10^3/uL (0.0-0.8); MONO % 7.3 % (2.0-8.0); NEUTROPHILS # 5.9 10^3/uL (1.5-8.5); NEUTROPHILS % 57.7 % (36.0-66.0); PLATELET COUNT, AUTOMATED 304 10^3/uL (150-450); WHITE BLOOD COUNT 10.3 10^3/uL (4.0-10.0)
[2022-07-19 15:53] LABS: ERYTHROCYTE SEDIMENTATION RATE 92 mm/hr (0-30)
[2022-07-19 17:45] LABS: HEMOGLOBIN A1c 7.7 % (4.0-6.0)
== END ==
LOC: M PLAIMG 12:37
PROVIDERS: ATTEND Internal Medicine Infectious Disease
DX: A31.0 Pulmonary mycobacterial infection (principal); E11.9 Type 2 diabetes mellitus without complications; R53.82 Chronic fatigue, unspecified; J45.41 Moderate persistent asthma with (acute) exacerbation

== ENCOUNTER → 2022-07-21 | Outpatient (REF) | payer OTHER | LOC: M SFHCPLAZ 10:12 | PROVIDERS: ATTEND Internal Medicine Infectious Disease | DX: A31.0 Pulmonary mycobacterial infection (principal) ==

== ENCOUNTER → 2022-08-03 | Outpatient (CLI) | payer OTHER | LOC: M RAD 07:08 | PROVIDERS: ATTEND Internal Medicine Infectious Disease | DX: A31.0 Pulmonary mycobacterial infection (principal); R05.3 Chronic cough ==

== ENCOUNTER → 2022-09-27 | Outpatient (CLI) | payer OTHER ==
[~2022-09-27] MED LIST changes: +INSU100I6 SC; -LEVE1INJ5 SC; +MONT-5 PO; -SING10TA32 PO; +TOPI-254 PO; -TOPI50TA9 PO
[2022-09-27 19:27] LABS: BASO # 0.1 10^3/uL (0.0-0.2); BASO % 0.7 % (0.0-1.0); EOS # 0.4 10^3/uL (0.0-0.5); EOS % 3.3 % (0.0-3.0); HEMATOCRIT 38.4 % (36.0-47.0); HEMOGLOBIN 12.2 g/dl (12.0-15.5); LYMPH # 3.3 10^3/uL (1.5-5.0); LYMPH % 30.5 % (24.0-44.0); MEAN CORPUSCULAR HEMOGLOBIN 32.4 pg (27.0-33.0); MEAN CORPUSCULAR HGB CONC 31.8 g/dl (32.0-36.5); MEAN CORPUSCULAR VOLUME 101.9 fl (80.0-96.0); MONO % 8.7 % (2.0-8.0); NEUTROPHILS # 6.1 10^3/uL (1.5-8.5); NEUTROPHILS % 55.7 % (36.0-66.0); PLATELET COUNT, AUTOMATED 282 10^3/uL (150-450); RED BLOOD COUNT 3.77 10^6/uL (4.00-5.40)
[2022-09-27 19:43] LABS: ERYTHROCYTE SEDIMENTATION RATE 78 mm/hr (0-30)
== END ==
LOC: M PLALAB 15:42
PROVIDERS: ATTEND Internal Medicine Infectious Disease
DX: A31.0 Pulmonary mycobacterial infection (principal)

== ENCOUNTER 2022-10-03 10:47 | Emergency (ER) | payer OTHER ==
[~2022-10-03] VITALS: Ht 160 cm; Wt 127.3 kg
[2022-10-03 12:30] LABS: VENOUS BASE EXCESS 0.8 (-2.0-2.0); VENOUS HCO3 27.4 MEQ/L (23.0-27.0); VENOUS PARTIAL PRESSURE O2 41.5 mmHg (30.0-50.0); VENOUS PH 7.339 UNITS (7.330-7.430); VENOUS STANDARD HCO3 24.7 MEQ/L
[2022-10-03 12:45] LABS: BASO # 0.1 10^3/uL (0.0-0.2); BASO % 0.8 % (0.0-1.0); EOS # 0.3 10^3/uL (0.0-0.5); EOS % 4.5 % (0.0-3.0); HEMATOCRIT 37.9 % (36.0-47.0); HEMOGLOBIN 12.1 g/dl (12.0-15.5); LYMPH # 1.6 10^3/uL (1.5-5.0); LYMPH % 20.6 % (24.0-44.0); MEAN CORPUSCULAR HEMOGLOBIN 32.1 pg (27.0-33.0); MEAN CORPUSCULAR HGB CONC 31.9 g/dl (32.0-36.5); MEAN CORPUSCULAR VOLUME 100.5 fl (80.0-96.0); MONO # 0.6 10^3/uL (0.0-0.8); MONO % 8.3 % (2.0-8.0); NEUTROPHILS # 4.8 10^3/uL (1.5-8.5); NEUTROPHILS % 64.1 % (36.0-66.0); PLATELET COUNT, AUTOMATED 283 10^3/uL (150-450); RED BLOOD COUNT 3.77 10^6/uL (4.00-5.40); WHITE BLOOD COUNT 7.6 10^3/uL (4.0-10.0)
[2022-10-03 13:14] LABS: CK-MB VALUE MASS < 1.0 NG/ML (<3.6); CPK CREATINE PHOSPHOKINASE 95 U/L (34-145); MB/CK RELATIVE INDEX 1.05 (< OR =4)
[2022-10-03] MEDS ORDERED: ACETAMINOPHEN TAB 650MG DOSE (2X325MG) PO ONE (13:35)
[2022-10-03 13:47] VITALS: BP 135/63
[2022-10-03] MEDS ORDERED: ISOVUE-370 76% 100ML VIAL As Ordered ONE (14:17)
== END 2022-10-03 16:27 | disposition home or self-care (01) ==
LOC: M ED 10:47
DX: R07.9 Chest pain, unspecified (principal); R06.02 Shortness of breath; E11.9 Type 2 diabetes mellitus without complications; J45.909 Unspecified asthma, uncomplicated; Z79.4 Long term (current) use of insulin; Z79.82 Long term (current) use of aspirin; Z79.02 Long term (current) use of antithrombotics/antiplatelets; Z79.899 Other long term (current) drug therapy; Z88.2 Allergy status to sulfonamides; Z88.8 Allergy status to other drugs, medicaments and biological substances
CPT/HCPCS: 36415; 71045; 71275; 80047; 81001; 82550; 82553; 82803; 83880; 85025; 85379; 87486; 87581; 87633; 87798; 93005; 99284; Q9967

== ENCOUNTER → 2022-11-12 | Outpatient (REF) | payer OTHER ==
[~2022-11-12] MED LIST changes: +FLUT50SP17; -FLUTISP
[2022-11-12 14:20] LABS: APPEARANCE, URINE HAZY (CLEAR); BACTERIA, URINE AUTO NEGATIVE (NEGATIVE); BILIRUBIN, URINE AUTO NEGATIVE (NEGATIVE); BLOOD, URINE BLOOD NEGATIVE (NEGATIVE); COLOR, URINE YELLOW (YELLOW); GLUCOSE, URINE (UA) AUTO NEGATIVE (NEGATIVE); KETONE, URINE AUTO TRACE mg/dL (NEGATIVE); LEUKOCYTE ESTERASE, URINE AUTO NEGATIVE (NEGATIVE); MUCUS, URINE SMALL (NEGATIVE); NITRITE, URINE AUTO NEGATIVE (NEGATIVE); PROTEIN, URINE AUTO NEGATIVE (NEGATIVE); RBC, URINE AUTO 1 /HPF (0-3); SPECIFIC GRAVITY URINE AUTO 1.019 (1.002-1.035); SQUAMOUS EPITHELIAL CELL UR AU 0 /HPF (0-6); UROBILINOGEN, URINE AUTO 0.2 mg/dL (0.0-2.0); WBC, URINE AUTO 1 /HPF (0-3)
== END ==
LOC: M LABSMT 10:31
PROVIDERS: ATTEND Urology
DX: R31.0 Gross hematuria (principal)

== ENCOUNTER → 2022-11-26 | Outpatient (CLI) | payer OTHER ==
[2022-11-26 14:23] LABS: BASO # 0.1 10^3/uL (0.0-0.2); BASO % 0.9 % (0.0-1.0); EOS # 0.4 10^3/uL (0.0-0.5); EOS % 3.6 % (0.0-3.0); HEMATOCRIT 38.2 % (36.0-47.0); LYMPH # 3.1 10^3/uL (1.5-5.0); LYMPH % 31.5 % (24.0-44.0); MEAN CORPUSCULAR HEMOGLOBIN 32.2 pg (27.0-33.0); MEAN CORPUSCULAR HGB CONC 31.4 g/dl (32.0-36.5); MEAN CORPUSCULAR VOLUME 102.4 fl (80.0-96.0); MONO # 0.8 10^3/uL (0.0-0.8); MONO % 8.1 % (2.0-8.0); NEUTROPHILS # 5.5 10^3/uL (1.5-8.5); NEUTROPHILS % 54.9 % (36.0-66.0); PLATELET COUNT, AUTOMATED 277 10^3/uL (150-450); RED BLOOD COUNT 3.73 10^6/uL (4.00-5.40); WHITE BLOOD COUNT 9.9 10^3/uL (4.0-10.0)
[2022-11-26 14:28] LABS: ALBUMIN 3.6 G/DL (3.2-5.2); ALKALINE PHOSPHATASE 100 U/L (46-116); ALT/SGPT 32 U/L (7.0-40); AST/SGOT 28 U/L (<34); BILIRUBIN,TOTAL 0.3 MG/DL (0.3-1.2); BLOOD UREA NITROGEN 14 MG/DL (9-23); CALCIUM LEVEL 8.8 MG/DL (8.3-10.6); CARBON DIOXIDE LEVEL 25 MMOL/L (20-31); CHLORIDE LEVEL 105 MMOL/L (98-107); CREATININE FOR GFR 0.94 MG/DL (0.55-1.30); GLOMERULAR FILTRATION RATE > 60.0 (>45); GLUCOSE, FASTING 233 MG/DL (74-106); POTASSIUM SERUM 5.4 MMOL/L (3.5-5.1); SODIUM LEVEL 140 MMOL/L (136-145)
[2022-11-26 14:29] LABS: IMMUNOGLOBULIN G 993 MG/DL (650-1600)
== END ==
LOC: M PLALAB 11:58
PROVIDERS: ATTEND Allergy & Immunology Allergy
DX: D83.9 Common variable immunodeficiency, unspecified (principal)

== ENCOUNTER → 2022-12-08 | Outpatient (CLI) | payer OTHER | LOC: M PLARAD 11:36 | PROVIDERS: ATTEND Internal Medicine Pulmonary Disease | DX: R91.8 Other nonspecific abnormal finding of lung field (principal) | CPT/HCPCS: 78815; A9552 ==

== ENCOUNTER → 2023-02-15 | Outpatient (REF) | payer OTHER ==
[~2023-02-15] MED LIST changes: -ROPI0.5T3 PO; +ROPI0.5T33 PO; -ROPI1TAB3 PO; +ROPI1TAB73 PO; -ROPI2TAB3 PO; +ROPI2TAB46 PO
[2023-02-15 13:55] LABS: APPEARANCE, URINE CLEAR (CLEAR); BACTERIA, URINE AUTO NEGATIVE (NEGATIVE); BILIRUBIN, URINE AUTO NEGATIVE (NEGATIVE); BLOOD, URINE BLOOD NEGATIVE (NEGATIVE); COLOR, URINE YELLOW (YELLOW); GLUCOSE, URINE (UA) AUTO NEGATIVE (NEGATIVE); KETONE, URINE AUTO NEGATIVE (NEGATIVE); LEUKOCYTE ESTERASE, URINE AUTO NEGATIVE (NEGATIVE); MUCUS, URINE SMALL (NEGATIVE); NITRITE, URINE AUTO NEGATIVE (NEGATIVE); PROTEIN, URINE AUTO NEGATIVE (NEGATIVE); RBC, URINE AUTO 0 /HPF (0-3); SPECIFIC GRAVITY URINE AUTO 1.012 (1.002-1.035); SQUAMOUS EPITHELIAL CELL UR AU 0 /HPF (0-6); UROBILINOGEN, URINE AUTO 0.2 mg/dL (0.0-2.0); WBC, URINE AUTO 1 /HPF (0-3)
== END ==
LOC: M SMT 13:13
PROVIDERS: ATTEND Urology
DX: R31.29 Other microscopic hematuria (principal); R82.89 Other abnormal findings on cytological and histological examination of urine

== ENCOUNTER 2023-04-18 23:29 | Emergency (ER) | payer OTHER ==
[~2023-04-18] VITALS: Ht 160 cm; Wt 114.1 kg
[~2023-04-18 23:29] MED LIST changes: +LORA-1041 PO; -LORA-674 PO
[2023-04-18] MEDS ORDERED: INSU100I48 (23:46)
[2023-04-19 01:06] LABS: BASO # 0.1 10^3/uL (0.0-0.2); BASO % 0.7 % (0.0-1.0); EOS # 0.3 10^3/uL (0.0-0.5); EOS % 3.6 % (0.0-3.0); HEMATOCRIT 35.7 % (36.0-47.0); HEMOGLOBIN 11.9 g/dl (12.0-15.5); LYMPH # 3.7 10^3/uL (1.5-5.0); LYMPH % 40.5 % (24.0-44.0); MEAN CORPUSCULAR HEMOGLOBIN 34.1 pg (27.0-33.0); MEAN CORPUSCULAR HGB CONC 33.3 g/dl (32.0-36.5); MEAN CORPUSCULAR VOLUME 102.3 fl (80.0-96.0); MONO # 0.7 10^3/uL (0.0-0.8); NEUTROPHILS # 4.4 10^3/uL (1.5-8.5); NEUTROPHILS % 47.8 % (36.0-66.0); PLATELET COUNT, AUTOMATED 259 10^3/uL (150-450); RED BLOOD COUNT 3.49 10^6/uL (4.00-5.40); WHITE BLOOD COUNT 9.2 10^3/uL (4.0-10.0)
[2023-04-19] MEDS ORDERED: IPRATROPIUM 0.5MG/ALBUTEROL 2.5MG INH SOL UD 3ML (DUONEB) NEB ONE (01:20)
[2023-04-19 01:27] LABS: CK-MB VALUE MASS < 1.0 NG/ML (<3.6)
[2023-04-19 01:32] LABS: CPK CREATINE PHOSPHOKINASE 72 U/L (34-145); MB/CK RELATIVE INDEX 1.38 (< OR =4)
[2023-04-19 02:56] LABS: CK-MB VALUE MASS < 1.0 NG/ML (<3.6)
[2023-04-19 02:57] LABS: CPK CREATINE PHOSPHOKINASE 65 U/L (34-145); MB/CK RELATIVE INDEX 1.53 (< OR =4)
[2023-04-19 02:58] LABS: BLOOD UREA NITROGEN 14 MG/DL (9-23); CALCIUM LEVEL 9.4 MG/DL (8.3-10.6); CARBON DIOXIDE LEVEL 26 MMOL/L (20-31); CHLORIDE LEVEL 100 MMOL/L (98-107); CREATININE FOR GFR 0.87 MG/DL (0.55-1.30); GLOMERULAR FILTRATION RATE > 60.0 (>45); GLUCOSE, FASTING 162 MG/DL (74-106); POTASSIUM SERUM 4.2 MMOL/L (3.5-5.1); SODIUM LEVEL 135 MMOL/L (136-145)
[2023-04-19] MEDS ORDERED: FAMOTIDINE 20MG/2ML VIAL IVP ONE (03:25)
[2023-04-19 03:56] VITALS: BP 142/76; TEMP 97.8; O2SAT 99
[2023-04-19] MEDS ORDERED: PRED20TA PO (04:08)
== END 2023-04-19 04:02 | disposition home or self-care (01) ==
LOC: M ED 23:29
DX: R07.9 Chest pain, unspecified (principal); E11.9 Type 2 diabetes mellitus without complications; I10 Essential (primary) hypertension; E78.5 Hyperlipidemia, unspecified; G35 Multiple sclerosis; J44.9 Chronic obstructive pulmonary disease, unspecified; Z79.52 Long term (current) use of systemic steroids; Z79.02 Long term (current) use of antithrombotics/antiplatelets; Z79.82 Long term (current) use of aspirin; Z79.811 Long term (current) use of aromatase inhibitors; Z79.899 Other long term (current) drug therapy
CPT/HCPCS: 71045; 80048; 82550; 82553; 83880; 85025; 93005; 93041; 94640; 94760; 96374; 99285; S0028

== ENCOUNTER → 2024-01-27 | Outpatient (REF) | payer OTHER ==
[~2024-01-27] MED LIST changes: -AZEL0.055 NARES; +AZEL1SPR4 NARES; +ESOM1CAP20 PO; -ESOM1CAP5 PO; -FLUT50SP17; +FLUTISP; +INSU100I48; +PRED20TA PO; +RIFA300C62 PO; -RIFA300C8 PO; +TOPI-21 PO; -TOPI-254 PO
[2024-01-27 14:06] LABS: APPEARANCE, URINE TURBID (CLEAR); BACTERIA, URINE AUTO 1+ (NEGATIVE); BILIRUBIN, URINE AUTO NEGATIVE (NEGATIVE); BLOOD, URINE BLOOD 1+ (NEGATIVE); COLOR, URINE YELLOW (YELLOW); GLUCOSE, URINE (UA) AUTO NEGATIVE (NEGATIVE); KETONE, URINE AUTO NEGATIVE (NEGATIVE); LEUKOCYTE ESTERASE, URINE AUTO 3+ (NEGATIVE); NITRITE, URINE AUTO NEGATIVE (NEGATIVE); PROTEIN, URINE AUTO 2+ mg/dL (NEGATIVE); RBC, URINE AUTO 149 /HPF (0-3); SPECIFIC GRAVITY URINE AUTO 1.015 (1.002-1.035); SQUAMOUS EPITHELIAL CELL UR AU 5 /HPF (0-6); UROBILINOGEN, URINE AUTO 0.2 mg/dL (0.0-2.0); WBC, URINE AUTO TNTC /HPF (0-3)
== END ==
LOC: M SMT 11:55
PROVIDERS: ATTEND Urology
DX: R39.9 Unspecified symptoms and signs involving the genitourinary system (principal)

== ENCOUNTER → 2024-01-27 | Outpatient (REF) | payer OTHER | LOC: M LABSMT 13:33 | PROVIDERS: ATTEND Urology | DX: R39.9 Unspecified symptoms and signs involving the genitourinary system (principal) ==

== ENCOUNTER → 2024-03-15 | Outpatient (REF) | payer OTHER ==
[2024-03-15 19:06] LABS: APPEARANCE, URINE HAZY (CLEAR); BACTERIA, URINE AUTO NEGATIVE (NEGATIVE); BILIRUBIN, URINE AUTO NEGATIVE (NEGATIVE); BLOOD, URINE BLOOD NEGATIVE (NEGATIVE); COLOR, URINE YELLOW (YELLOW); GLUCOSE, URINE (UA) AUTO NEGATIVE (NEGATIVE); KETONE, URINE AUTO NEGATIVE (NEGATIVE); LEUKOCYTE ESTERASE, URINE AUTO 3+ (NEGATIVE); NITRITE, URINE AUTO NEGATIVE (NEGATIVE); PROTEIN, URINE AUTO NEGATIVE (NEGATIVE); RBC, URINE AUTO 1 /HPF (0-3); SPECIFIC GRAVITY URINE AUTO 1.014 (1.002-1.035); SQUAMOUS EPITHELIAL CELL UR AU 0 /HPF (0-6); UROBILINOGEN, URINE AUTO 0.2 mg/dL (0.0-2.0); WBC, URINE AUTO 159 /HPF (0-3)
== END ==
LOC: M LABSMT 13:23
PROVIDERS: ATTEND Urology
DX: Z87.440 Personal history of urinary (tract) infections (principal)

== ENCOUNTER → 2024-08-23 | Outpatient (CLI) | payer MEDICARE, OTHER ==
[~2024-08-23] MED LIST changes: +GABA-1172 PO; -GABA-282 PO; +METF-1156 PO; -METF-817 PO
[2024-08-27 15:37] LABS: ANGIOTENSIN 1 CONVERTING ENZYM 23 U/L (9-67)
== END ==
LOC: M LAB 14:51
PROVIDERS: ATTEND Psychiatry & Neurology Neurology
DX: G70.00 Myasthenia gravis without (acute) exacerbation (principal)

== ENCOUNTER → 2024-08-28 | Outpatient (REF) | payer MEDICARE ==
[2024-08-28 13:27] LABS: APPEARANCE, URINE TURBID (CLEAR); BACTERIA, URINE AUTO 1+ (NEGATIVE); BILIRUBIN, URINE AUTO NEGATIVE (NEGATIVE); BLOOD, URINE BLOOD 1+ (NEGATIVE); CALCIUM OXALATE CRYSTALS MODERATE; COLOR, URINE AMBER (YELLOW); GLUCOSE, URINE (UA) AUTO NEGATIVE (NEGATIVE); KETONE, URINE AUTO NEGATIVE (NEGATIVE); LEUKOCYTE ESTERASE, URINE AUTO 3+ (NEGATIVE); MUCUS, URINE SMALL (NEGATIVE); NITRITE, URINE AUTO NEGATIVE (NEGATIVE); PROTEIN, URINE AUTO 2+ mg/dL (NEGATIVE); RBC, URINE AUTO 26 /HPF (0-3); SPECIFIC GRAVITY URINE AUTO 1.027 (1.002-1.035); SQUAMOUS EPITHELIAL CELL UR AU 1 /HPF (0-6); UROBILINOGEN, URINE AUTO 0.2 mg/dL (0.0-2.0); WBC, URINE AUTO TNTC /HPF (0-3)
== END ==
LOC: M SFHCPLAZ 12:33
PROVIDERS: ATTEND Internal Medicine Infectious Disease
DX: N39.0 Urinary tract infection, site not specified (principal)

== ENCOUNTER 2024-10-28 16:42 | Emergency (ER) | payer MEDICARE ==
[~2024-10-28] VITALS: Ht 160 cm; Wt 110.0 kg
[~2024-10-28 16:42] MED LIST changes: +TOPI-257 PO; -TOPI100T9 PO
[2024-10-28] MEDS: NS (Normal Saline) 0.9% 1,000 ML IV ONE (18:10)
[2024-10-28] MEDS: IPRATROPIUM 0.5MG/ALBUTEROL 2.5MG INH SOL UD 3ML NEB ONE (18:10)
[2024-10-28] MEDS: methylPREDNISolone 125MG 2ML VIAL IV ONE (18:10)
[2024-10-28 19:12] LABS: BASO % 0.8 % (0.0-1.0); EOS % 0.4 % (0.0-3.0); HEMATOCRIT 35.5 % (36.0-47.0); HEMOGLOBIN 11.6 g/dl (12.0-15.5); LYMPH # 1.2 10^3/uL (1.5-5.0); LYMPH % 22.5 % (24.0-44.0); MEAN CORPUSCULAR HEMOGLOBIN 32.8 pg (27.0-33.0); MEAN CORPUSCULAR HGB CONC 32.7 g/dl (32.0-36.5); MEAN CORPUSCULAR VOLUME 100.3 fl (80.0-96.0); MONO # 0.6 10^3/uL (0.0-0.8); MONO % 12.5 % (2.0-8.0); NEUTROPHILS # 3.2 10^3/uL (1.5-8.5); NEUTROPHILS % 63.4 % (36.0-66.0); PLATELET COUNT, AUTOMATED 198 10^3/uL (150-450); RED BLOOD COUNT 3.54 10^6/uL (4.00-5.40); WHITE BLOOD COUNT 5.1 10^3/uL (4.0-10.0)
[2024-10-28 19:45] LABS: ALBUMIN 3.1 G/DL (3.2-5.2); BILIRUBIN,TOTAL 0.2 MG/DL (0.3-1.2); CREATININE FOR GFR 0.92 MG/DL (0.55-1.30); GLOMERULAR FILTRATION RATE 69.1 (>45); POTASSIUM SERUM 4.8 MMOL/L (3.5-5.1)
[2024-10-28] MEDS: ALBUTEROL SULFATE 2.5MG/0.5ML INH CONCENTRATE NEB SOLN INH PRN (19:45)
[2024-10-28] MEDS: ACETAMINOPHEN 325 MG TAB PO ONE (19:45)
[2024-10-28 19:50] LABS: PROCALCITONIN 0.15 ng/ml
[2024-10-28] MEDS ORDERED: OSEL75CA PO (20:49)
[2024-10-28] MEDS ORDERED: IPRA0.00 INH (20:49)
[2024-10-28] MEDS ORDERED: PRED20TA PO (20:51)
[2024-10-28 20:57] VITALS: BP 131/70; TEMP 98; O2SAT 99
[2024-10-28] MEDS ORDERED: OSELTAMIVIR PHOSPHATE 75 MG CAP PO ONE (21:00)
== END 2024-10-28 21:09 | disposition home or self-care (01) ==
LOC: M ED 16:42
DX: J45.901 Unspecified asthma with (acute) exacerbation (principal); J09.X2 Influenza due to identified novel influenza A virus with other respiratory manifestations; E11.9 Type 2 diabetes mellitus without complications; I10 Essential (primary) hypertension; K21.9 Gastro-esophageal reflux disease without esophagitis; Z88.1 Allergy status to other antibiotic agents; Z88.2 Allergy status to sulfonamides; Z88.8 Allergy status to other drugs, medicaments and biological substances; Z79.899 Other long term (current) drug therapy; Z90.49 Acquired absence of other specified parts of digestive tract; Z79.4 Long term (current) use of insulin; Z79.82 Long term (current) use of aspirin
CPT/HCPCS: 71046; 80053; 83605; 84145; 85025; 87486; 87581; 87633; 87798; 93041; 94640; 94760; 96361; 96374; 99285; J2919

== ENCOUNTER 2024-11-21 00:19 | Emergency (ER) | payer MEDICARE ==
[~2024-11-21] VITALS: Ht 160 cm; Wt 115.3 kg
[~2024-11-21 00:19] MED LIST changes: +OSEL75CA PO
[2024-11-21] MEDS ORDERED: ISOVUE-370 76% 100ML VIAL As Ordered ONE (00:37)
[2024-11-21 01:11] LABS: BASO # 0.1 10^3/uL (0.0-0.2); BASO % 0.7 % (0.0-1.0); EOS # 0.3 10^3/uL (0.0-0.5); EOS % 3.4 % (0.0-3.0); HEMATOCRIT 34.7 % (36.0-47.0); HEMOGLOBIN 10.9 g/dl (12.0-15.5); LYMPH # 3.3 10^3/uL (1.5-5.0); MEAN CORPUSCULAR HEMOGLOBIN 32.7 pg (27.0-33.0); MEAN CORPUSCULAR HGB CONC 31.4 g/dl (32.0-36.5); MEAN CORPUSCULAR VOLUME 104.2 fl (80.0-96.0); MONO # 0.8 10^3/uL (0.0-0.8); NEUTROPHILS # 4.8 10^3/uL (1.5-8.5); NEUTROPHILS % 50.5 % (36.0-66.0); PLATELET COUNT, AUTOMATED 179 10^3/uL (150-450); RED BLOOD COUNT 3.33 10^6/uL (4.00-5.40); WHITE BLOOD COUNT 9.6 10^3/uL (4.0-10.0)
[2024-11-21 01:23] LABS: INR 0.93; PARTIAL THROMBOPLASTIN TIME 24.9 SECONDS (24.8-34.2); PROTHROMBIN TIME 12.8 SECONDS (12.5-14.5)
[2024-11-21 03:00] LABS: ETHYL ALCOHOL (ETHANOL) < 0.003 % (0.000-0.010)
[2024-11-21 03:02] LABS: ALBUMIN 2.7 G/DL (3.2-5.2); ALKALINE PHOSPHATASE 77 U/L (35-104); ALT/SGPT 25 U/L (7.0-40); AST/SGOT 12 U/L (<34); BILIRUBIN,DIRECT < 0.1 MG/DL (<0.4); BILIRUBIN,TOTAL < 0.2 MG/DL (0.3-1.2); TOTAL PROTEIN 5.8 G/DL (5.7-8.2)
[2024-11-21] MEDS: KETOROLAC 30 MG/ML 1ML VIAL IV ONE (03:26)
[2024-11-21] MEDS: NS (Normal Saline) 0.9% 1,000 ML IV ONE (03:26)
[2024-11-21] MEDS: ACETAMINOPHEN *IV* 1,000 MG in IV 1 EA IV ONE (03:26)
[2024-11-21 03:33] LABS: KETONE, URINE AUTO RFX NEGATIVE (NEGATIVE); LEUKOCYTE ESTERASE UR AUTO RFX NEGATIVE (NEGATIVE); NITRITE, URINE AUTO RFX NEGATIVE (NEGATIVE); RBC, URINE AUTO RFX 0 /HPF (0-3); SQUAM EPITHELIAL CELL UR AURFX 0 /HPF (0-6); WBC, URINE AUTO RFX 1 /HPF (0-3)
[2024-11-21 04:13] LABS: AMPHETAMINES LEVEL URINE NEGATIVE (NEGATIVE); BARBITURATES URINE NEGATIVE (NEGATIVE); BENZODIAZEPINES URINE NEGATIVE (NEGATIVE); CANNABINOIDS URINE NEGATIVE (NEGATIVE); COCAINE METABOLITE URINE NEGATIVE (NEGATIVE); METHADONE URINE NEGATIVE (NEGATIVE); OPIATES URINE NEGATIVE (NEGATIVE); PHENCYCLIDINE URINE NEGATIVE (NEGATIVE)
[2024-11-21 06:00] VITALS: BP 127/58; TEMP 97.4; O2SAT 97
== END 2024-11-21 06:09 | disposition home or self-care (01) ==
LOC: M ED 00:19
DX: G43.909 Migraine, unspecified, not intractable, without status migrainosus (principal); R47.9 Unspecified speech disturbances; J98.11 Atelectasis; I10 Essential (primary) hypertension; G25.81 Restless legs syndrome; G20.C Parkinsonism, unspecified; Z79.52 Long term (current) use of systemic steroids; Z79.82 Long term (current) use of aspirin; Z79.02 Long term (current) use of antithrombotics/antiplatelets; Z79.4 Long term (current) use of insulin; Z79.899 Other long term (current) drug therapy; Z88.1 Allergy status to other antibiotic agents; Z88.2 Allergy status to sulfonamides; Z88.8 Allergy status to other drugs, medicaments and biological substances
CPT/HCPCS: 70450; 70496; 70498; 71045; 80047; 80076; 80307; 81001; 82077; 82140; 85025; 85610; 85730; 86850; 86900; 86901; 93005; 93041; 96365; 96375; 99285; J0131; J1885; Q9967

== ENCOUNTER 2025-02-10 06:42 | Emergency (ER) | payer MEDICARE ==
[~2025-02-10] VITALS: Ht 154.9 cm; Wt 115.9 kg
[2025-02-10] MEDS ORDERED: ELIQ5TAB PO (07:24)
[2025-02-10 08:07] LABS: BASO # 0.1 10^3/uL (0.0-0.2); BASO % 0.7 % (0.0-1.0); EOS # 0.3 10^3/uL (0.0-0.5); EOS % 3.6 % (0.0-3.0); LYMPH # 2.5 10^3/uL (1.5-5.0); LYMPH % 28.8 % (24.0-44.0); MONO # 0.8 10^3/uL (0.0-0.8); MONO % 9.4 % (2.0-8.0); NEUTROPHILS # 4.9 10^3/uL (1.5-8.5); NEUTROPHILS % 56.7 % (36.0-66.0); PLATELET COUNT, AUTOMATED 287 10^3/uL (150-450)
[2025-02-10 08:20] LABS: INR 0.93
[2025-02-10 08:35] LABS: ALT/SGPT 23 U/L (7.0-40); AST/SGOT 22 U/L (<34); MAGNESIUM LEVEL 1.9 MG/DL (1.8-2.4)
[2025-02-10 08:45] LABS: CALCIUM LEVEL 9.0 MG/DL (8.3-10.6); CARBON DIOXIDE LEVEL 22 MMOL/L (20-31); CHLORIDE LEVEL 99 MMOL/L (98-107); CK-MB VALUE MASS < 1.0 NG/ML (<3.6); CPK CREATINE PHOSPHOKINASE 38 U/L (34-145); CREATININE FOR GFR 0.92 MG/DL (0.55-1.30); GLOMERULAR FILTRATION RATE 69.1 (>45); POTASSIUM SERUM 4.4 MMOL/L (3.5-5.1); SODIUM LEVEL 137 MMOL/L (136-145)
[2025-02-10 09:33] LABS: CK-MB VALUE MASS < 1.0 NG/ML (<3.6)
[2025-02-10 09:43] LABS: CPK CREATINE PHOSPHOKINASE 45 U/L (34-145)
[2025-02-10] MEDS: PANTOPRAZOLE 40MG VIAL IV ONE (10:06)
[2025-02-10] MEDS ORDERED: TOPI-257 PO (11:19)
[2025-02-10] MEDS ORDERED: IPRA0.00 INH (11:19)
[2025-02-10] MEDS ORDERED: MULT-40 PO (11:19)
[2025-02-10] MEDS ORDERED: ATOR80TA59 PO (11:19)
[2025-02-10] MEDS ORDERED: ROPI2TAB46 PO (11:19)
[2025-02-10] MEDS ORDERED: METH-855 PO (11:29)
[2025-02-10] MEDS ORDERED: DULA3PEN SQ (11:29)
[2025-02-10] MEDS ORDERED: VITA500045 PO (11:29)
[2025-02-10] MEDS ORDERED: LANTINJ4 SC (11:29)
[2025-02-10] MEDS ORDERED: ESOM40CA35 PO (11:29)
[2025-02-10] MEDS ORDERED: DULO1CAP6 PO (11:29)
[2025-02-10] MEDS ORDERED: SOLI10TA PO (11:29)
[2025-02-10] MEDS ORDERED: MYRB50TA PO (11:29)
[2025-02-10] MEDS ORDERED: AZEL1SPR3 NARES (11:29)
[2025-02-10] MEDS ORDERED: HOME MED LIST COMPLETE! XX SCH (11:30)
[2025-02-10] MEDS ORDERED: CARA1TAB6 PO (11:35)
[2025-02-10 11:41] VITALS: BP 150/70; TEMP 98.2; O2SAT 100
== END 2025-02-10 11:50 | disposition home or self-care (01) ==
LOC: M ED 06:42
DX: R07.9 Chest pain, unspecified (principal); K44.9 Diaphragmatic hernia without obstruction or gangrene; K21.9 Gastro-esophageal reflux disease without esophagitis; I49.3 Ventricular premature depolarization; E11.9 Type 2 diabetes mellitus without complications; I10 Essential (primary) hypertension; E78.5 Hyperlipidemia, unspecified; J45.909 Unspecified asthma, uncomplicated; Z86.73 Personal history of transient ischemic attack (TIA), and cerebral infarction without residual deficits; Z88.1 Allergy status to other antibiotic agents; Z88.2 Allergy status to sulfonamides; Z88.8 Allergy status to other drugs, medicaments and biological substances; Z79.52 Long term (current) use of systemic steroids; Z79.1 Long term (current) use of non-steroidal anti-inflammatories (NSAID); Z79.4 Long term (current) use of insulin; Z79.899 Other long term (current) drug therapy
CPT/HCPCS: 36415; 71045; 80048; 80076; 82550; 82553; 83690; 83735; 84484; 85025; 85610; 93005; 93041; 94760; 96374; 99285; J2470

== ENCOUNTER → 2025-03-29 | Outpatient (CLI) | payer MEDICARE ==
[~2025-03-29] MED LIST changes: +ATOR80TA59 PO; +AZEL1SPR3 NARES; +CARA1TAB6 PO; +DULA3PEN SQ; +DULO1CAP6 PO; +ELIQ5TAB PO; +ERGO125013 PO; +ESOM40CA35 PO; +LANTINJ4 SC; +METH-1100 PO; +MULT-40 PO; +MYRB50TA PO; +SOLI10TA PO
[2025-03-29 14:07] LABS: BASO # 0.1 10^3/uL (0.0-0.2); BASO % 0.6 % (0.0-1.0); EOS # 0.3 10^3/uL (0.0-0.5); EOS % 3.8 % (0.0-3.0); LYMPH # 3.2 10^3/uL (1.5-5.0); LYMPH % 37.0 % (24.0-44.0); MONO # 0.7 10^3/uL (0.0-0.8); MONO % 8.1 % (2.0-8.0); NEUTROPHILS # 4.3 10^3/uL (1.5-8.5); NEUTROPHILS % 49.5 % (36.0-66.0); PLATELET COUNT, AUTOMATED 277 10^3/uL (150-450)
== END ==
LOC: M PLALAB 11:31
PROVIDERS: ATTEND Allergy & Immunology Allergy
DX: D83.9 Common variable immunodeficiency, unspecified (principal)

== ENCOUNTER → 2025-04-12 | Outpatient (REF) | payer MEDICARE ==
[2025-04-12 15:24] LABS: APPEARANCE, URINE CLOUDY (CLEAR); BACTERIA, URINE AUTO 3+ (NEGATIVE); BILIRUBIN, URINE AUTO NEGATIVE (NEGATIVE); BLOOD, URINE BLOOD NEGATIVE (NEGATIVE); GLUCOSE, URINE (UA) AUTO NEGATIVE (NEGATIVE); KETONE, URINE AUTO NEGATIVE (NEGATIVE); LEUKOCYTE ESTERASE, URINE AUTO 3+ (NEGATIVE); NITRITE, URINE AUTO NEGATIVE (NEGATIVE); PROTEIN, URINE AUTO NEGATIVE (NEGATIVE); RBC, URINE AUTO 0 /HPF (0-3); SPECIFIC GRAVITY URINE AUTO 1.014 (1.002-1.035); SQUAMOUS EPITHELIAL CELL UR AU 0 /HPF (0-6); UROBILINOGEN, URINE AUTO 0.2 mg/dL (0.0-2.0); WBC, URINE AUTO TNTC /HPF (0-3)
== END ==
LOC: M SMT 14:49
PROVIDERS: ATTEND Urology
DX: Z87.440 Personal history of urinary (tract) infections (principal); Z79.899 Other long term (current) drug therapy